=== PATIENT | female | born 1945 | race Caucasian/White ===

== ENCOUNTER → 2018-04-30 10:00 | Outpatient (CLI) | payer MEDICARE, OTHER, SELFPAY ==
[2018-04-30 12:28] LABS: Hematocrit 42.4 % (37-47); Hemoglobin 13.2 g/dl (12.0-15.0); Mean Corp Hgb Conc 31.1 g/gl (32-36); Mean Corpuscular Hgb 29.1 pg (27.0-32.0); Mean Corpuscular Volume 93.6 fL (81-99); Mean Platelet Vol. 10.9 fl (6.2-12.0); Platelet Count 268 K/mm3 (150-450); RBC Distribution Width CV 13.4 % (11.6-14.6); Red Blood Count 4.53 M/mm3 (4.2-5.4); White Blood Count 6.3 K/mm3 (4.4-11.0)
[2018-04-30 12:35] LABS: Scan Indicated on CBC? Y/N NO
[2018-04-30 12:49] LABS: ALB/GLOB Ratio 0.8 RATIO (0.9-2.4); AST(SGOT) 29 U/L (15-37); Alanine Aminotransfer ALT/SGPT 34 U/L (13-56); Albumin, Serum 3.4 g/dL (3.2-5.0); Alkaline Phosphatase 111 U/L (45-117); Anion Gap 6 (5-15); BUN 20 mg/dL (7-18); BUN/Creat Ratio 23.6 RATIO (10-20); Calcium,Total 9.1 mg/dL (8.5-10.1); Chloride 109 mmol/L (98-107); Creatinine, Serum 0.85 mg/dL (0.55-1.02); EST Glomerular Filtration Rate 70 mL/min (>60); Est Glom Filt Rate - Afr Amer 85 mL/min (>60); Free T3 2.4 pg/mL (2.18-3.98); Globulin 4.2 g/dL (2.2-4.2); Glucose 90 mg/dL (74-106); Potassium 4.4 mmol/L (3.5-5.1); Protein, Total 7.6 g/dL (6.4-8.2); Sodium Level 145 mmol/L (136-145); T4 Free Direct 0.69 ng/dL (0.76-1.46); Thyroid Stim Hormone (TSH) 1.76 uIU/mL (0.358-3.74)
[2018-05-01 11:54] LABS: Vitamin D,25 Hydroxy 26.6 ng/mL (29.95-100.01)
== END ==
PROVIDERS: Family Provider Family Medicine; PCP Family Medicine; Visit Provider Family Medicine
DX: M25.511 Pain in right shoulder (principal); F32.9 Major depressive disorder, single episode, unspecified; E55.9 Vitamin D deficiency, unspecified; E03.9 Hypothyroidism, unspecified; E78.5 Hyperlipidemia, unspecified
CPT/HCPCS: 36415; 73030; 80053; 82306; 84439; 84443; 84481; 85027

== ENCOUNTER → 2020-05-23 | Outpatient (CLI) | payer MEDICARE, SELFPAY | END | disposition home or self-care (01) | PROVIDERS: PCP Family Medicine; Referring Provider Family Medicine; Visit Provider Family Medicine | DX: Z20.828 Contact with and (suspected) exposure to other viral communicable diseases (principal) | CPT/HCPCS: 87635; U0003 ==

== ENCOUNTER → 2020-07-31 11:16 | Outpatient (CLI) | payer MEDICARE, SELFPAY ==
[2020-07-31 12:49] LABS: ALB/GLOB Ratio 0.9 RATIO (0.9-2.4); AST(SGOT) 20 U/L (15-37); Alanine Aminotransfer ALT/SGPT 25 U/L (13-56); Albumin, Serum 3.6 g/dL (3.2-5.0); Alkaline Phosphatase 89 U/L (45-117); Anion Gap 3 (5-15); BUN 16 mg/dL (7-18); BUN/Creat Ratio 22.2 RATIO (10-20); Calcium,Total 9.5 mg/dL (8.5-10.1); Chloride 108 mmol/L (98-107); Cholesterol 405 mg/dL (200); Creatinine, Serum 0.72 mg/dL (0.55-1.02); EST Glomerular Filtration Rate 84 mL/min (>60); Est Glom Filt Rate - Afr Amer 102 mL/min (>60); Globulin 3.8 g/dL (2.2-4.2); Glucose 88 mg/dL (74-106); High Density Lipoprotein 70 mg/dL; Potassium 3.8 mmol/L (3.5-5.1); Protein, Total 7.4 g/dL (6.4-8.2); Sodium Level 140 mmol/L (136-145); Thyroid Stim Hormone (TSH) 4.38 uIU/mL (0.358-3.74); Triglycerides 74 mg/dL; Very Low Density Lipoprotein 15 mg/dL (5-40)
== END ==
PROVIDERS: PCP Family Medicine; Referring Provider Family Medicine; Visit Provider Family Medicine
DX: E78.5 Hyperlipidemia, unspecified (principal); E03.9 Hypothyroidism, unspecified; E55.9 Vitamin D deficiency, unspecified
CPT/HCPCS: 36415; 80053; 80061; 82306; 84443

== ENCOUNTER → 2020-09-07 14:05 | Outpatient (CLI) | payer MEDICARE, OTHER, SELFPAY ==
--- NOTE | 2020-09-07 14:13 | BI_ITS ---
MAMMOGRAPHY - BILATERAL SCREENING REASON FOR EXAM: Female, 75 years old. Routine annual screening examination. PERTINENT HISTORY: Non-contributory. TECHNIQUE: Digital bilateral breast cynthia (3D mammographic acquisition) in the CC and MLO projections. 2-D mediolateral oblique (MLO) and craniocaudad (CC) views of both breasts were obtained. CAD: Full Field Digital Mammography with Computer Added Detection was performed. COMPARISON: Comparison is made with prior examination dated 10/22/2016. FINDINGS: Breast Composition: There are scattered areas of fibroglandular density. There are no dominant masses or suspicious calcifications. Stable small benign appearing bilateral axillary lymph nodes. No other significant abnormalities are identified. There has been no significant change since the prior study. BI/SCRN MAMM (CAD)W/CYNTHIA BILAT IMPRESSION: Stable bilateral screening mammogram. Yearly follow-up mammogram recommended. (A) ASSESSMENT CATEGORY: BIRADS Category 2: Benign. A letter regarding these results will be sent to the patient by the facility within 30 days. Approximately 10% of breast cancers are not detected by mammography. A normal mammogram should not delay biopsy of a clinically suspicious abnormality. [id number] Electronically Signed: Nathanael Rosenberg, at 15:31 EST , Service support ,
--- NOTE | 2020-09-07 14:17 | BD_ITS ---
STUDY: DUAL ENERGY X-RAY ABSORPTIOMETRY / DXA REASON FOR EXAM: Female, 75 years old. 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 COMPARISON: Comparison is made with prior study dated 10/22/2016. FINDINGS: Lumbar Spine (L1-L4): g/cm2 (1.028) / T-score (-1.1) / Z-score (0.6) Findings are suggestive of osteopenia with a low fracture risk. Left Femur Total: g/cm2 (0.813) / T-score (-1.5) / Z-score (0.1) Left Femoral Neck: g/cm2 (0.737) / T-score (-2.2) / Z-score (-0.3) Right Femur Total: g/cm2 (0.693) / T-score (-2.5) / Z-score (-0.9) Right Femoral Neck: g/cm2 (0.667) / T-score (-2.7) / Z-score (0.8) The T-Scores on the most recent prior examination were: Lumbar Spine (L1-L4): There has been improvement of bone density since the previous examination. Left Femur Total: which represents a worsening of 1.6%. Right Femur Total: which represents a worsening of 4.5%. BD/Dexa Bone Density Study IMPRESSION: The patient is considered osteoporotic as outlined below according to World Juan Ramon Organization (WHO) criteria with a high fracture risk. There has been worsening of bone density since the previous examination. Reference Information: The T-score is the number of standard deviations above or below the standard which is normal for young adults at their peak bone mineral density. The World Health Organization (WHO) interprets the T-scores as follows: Above -1 Normal bone density Between -1 and -2.5 Osteopenia Equal to / or below -2.5 Osteoporosis As a practical clinical guideline, osteopenia may be graded as follows: Mild -1 through -1.5 Moderate -1.6 through -2.0 Severe -2.1 through -2.4 The Z-score is the number of standard deviations above or below age-matched controls. A Z-score of less than -1.5 would be considered abnormal. References: 1. NIH Osteoporosis and Related Bone Diseases www osteo.org 2. International Society for Clinical Densitometry www iscd.org 3. National Osteoporosis Foundation www nof.org Electronically Signed: Nathanael Rosenberg, at 15:30 EST , Service support ,
== END ==
PROVIDERS: PCP Family Medicine; Referring Provider Family Medicine; Visit Provider Family Medicine
DX: Z00.00 Encounter for general adult medical examination without abnormal findings (principal); Z12.31 Encounter for screening mammogram for malignant neoplasm of breast; Z78.0 Asymptomatic menopausal state
CPT/HCPCS: 77063; 77067; 77080

== ENCOUNTER → 2020-10-04 15:27 | Outpatient (CLI) | payer MEDICARE, OTHER, SELFPAY ==
[2020-10-04 18:23] LABS: T4 Free Direct 1.15 ng/dL (0.76-1.46); Thyroid Stim Hormone (TSH) 1.52 uIU/mL (0.358-3.74)
== END ==
PROVIDERS: PCP Family Medicine; Referring Provider Family Medicine; Visit Provider Family Medicine
DX: E03.9 Hypothyroidism, unspecified (principal)
CPT/HCPCS: 36415; 84439; 84443

== ENCOUNTER → 2021-08-01 11:47 | Outpatient (CLI) | payer MEDICARE, OTHER, SELFPAY ==
[2021-08-01 15:25] LABS: Absolute Lymphocyte Count 1.08 X10^3/uL (0.83-4.51); Absolute Neutrophil Count 8.4 X10^3/uL (2.0-7.7); Basophil# 0.02 X10^3/uL; Basophil% 0.2 % (0-1); Eosinophil# 0.02 X10^3/uL; Eosinophils% 0.2 % (0-5); Hematocrit 41.9 % (37-47); Hemoglobin 13.4 g/dL (12.0-15.0); Lymphocyte # 1.08 X10^3/ul (0.83-4.51); Lymphocyte % 10.5 % (19-41); Mean Corpuscular Volume 90.7 fL (81-99); Mean Platelet Vol. 11.8 fl (6.2-12.0); Monocyte# 0.74 X10^3/uL; Monocyte% 7.2 % (0-10); NRBC Flagged by Analyzer 0 % (0-5); Neutrophil % 81.6 % (47-70); Platelet Count 237 K/mm3 (150-450); RBC Distribution Width CV 13.5 % (11.6-14.6); RBC Distribution Width SD 45.1 fl (35.1-43.9); Red Blood Count 4.62 M/mm3 (4.2-5.4); White Blood Count 10.3 K/mm3 (4.4-11.0)
[2021-08-01 15:50] LABS: ALB/GLOB Ratio 0.7 RATIO (0.9-2.4); AST(SGOT) 22 U/L (15-37); Alanine Aminotransfer ALT/SGPT 26 U/L (13-56); Albumin, Serum 3.3 g/dL (3.2-5.0); Alkaline Phosphatase 110 U/L (45-117); Anion Gap 8 (5-15); BUN 13 mg/dL (7-18); BUN/Creat Ratio 15.6 RATIO (10-20); Calcium,Total 9.2 mg/dL (8.5-10.1); Chloride 104 mmol/L (98-107); Cholesterol 324 mg/dL (200); Creatinine, Serum 0.84 mg/dL (0.55-1.02); EST Glomerular Filtration Rate 71 mL/min (>60); Est Glom Filt Rate - Afr Amer 86 mL/min (>60); Globulin 4.5 g/dL (2.2-4.2); Glucose 96 mg/dL (74-106); High Density Lipoprotein 66 mg/dL; Magnesium 2.3 mg/dL (1.6-2.6); Protein, Total 7.8 g/dL (6.4-8.2); Sodium Level 138 mmol/L (136-145); T4 Free Direct 0.98 ng/dL (0.76-1.46); Thyroid Stim Hormone (TSH) 1.49 uIU/mL (0.358-3.74); Triglycerides 59 mg/dL; Very Low Density Lipoprotein 12 mg/dL (5-40)
[2021-08-02 09:36] LABS: PTHIN 28.6 pg/mL (18.4-80.1)
== END ==
PROVIDERS: PCP Family Medicine; Referring Provider Family Medicine; Visit Provider Family Medicine
DX: E78.5 Hyperlipidemia, unspecified (principal); M81.0 Age-related osteoporosis without current pathological fracture; E03.9 Hypothyroidism, unspecified; R10.9 Unspecified abdominal pain
CPT/HCPCS: 36415; 80053; 80061; 82330; 83735; 83970; 84439; 84443; 85025; 87086; 87088; 87186

== ENCOUNTER 2021-11-23 08:23 | Outpatient (CLI) | payer MEDICARE, OTHER, SELFPAY ==
[2021-11-24 21:07] LABS: CHOLESTEROL TOTAL 230 mg/dL (100-199); HDL-C 63 mg/dL (>39); HDL-P TOTAL 34.3 umol/L (>=30.5); SMALL LDL-P 476 nmol/L (<=527); TRIGLYCERIDES 65 mg/dL (0-149)
[2021-11-24 22:20] LABS: INSULIN RESISTANCE SCORE <25 (<=45); LDL SIZE 21.6 nm (>20.5); LDL-C (NIH CALC) 156 mg/dL (0-99); LDL-P 1740 nmol/L (<1000)
== END 2021-11-23 23:59 | disposition home or self-care (01) ==
LOC: MFPLAB 08:24
PROVIDERS: PCP Family Medicine; Referring Provider Family Medicine; Visit Provider Family Medicine
DX: E78.5 Hyperlipidemia, unspecified (principal)
CPT/HCPCS: 36415; 80061; 83704

== ENCOUNTER → 2022-01-04 | Outpatient (CLI) | payer MEDICARE, OTHER, SELFPAY | END | disposition home or self-care (01) | LOC: LABSPEC 12:27 | PROVIDERS: PCP Family Medicine; Visit Provider Family Medicine | DX: J02.9 Acute pharyngitis, unspecified (principal) | CPT/HCPCS: 87070; 87186 ==

== ENCOUNTER → 2022-01-24 | Outpatient (CLI) | payer MEDICARE, OTHER, SELFPAY ==
--- NOTE | 2022-01-24 13:49 | ECHOD_ITS ---
Reason For Study: Murmur Procedure This was a 2D Doppler, Color Flow transthoracic echocardiogram. Exam performed in department. Left Ventricle Normal LV size. Left ventricular systolic function is normal. The estimated ejection fraction is 65 %. Stage 1 diastolic dysfunction. No regional wall motion abnormalities noted. Right Ventricle Normal RV size. Normal systolic function. Atria Normal left atrium. Normal right atrium. Mitral Valve Normal mitral valve. Tricuspid Valve Normal tricuspid valve. Aortic Valve Trisinus/trileaflet aortic valve. Moderate focal aortic valve calcification. Peak aortic valve gradient 27 mmHg. Mean aortic valve gradient 13 mmHg. Mild aortic stenosis. Pulmonic Valve Normal pulmonic valve. Great Vessels Normal aortic root. The pulmonary artery is normal size. Inferior vena cava collapse with respiration. Pericardium/Pleural No pericardial effusion. MMode/2D Measurements & Calculations LVIDd: 2.9 cm IVSd: 1.2 cm LVOT diam: 2.0 cm LVIDs: 1.6 cm LVPWd: 0.98 cm LVOT area: 3.0 cm2 RVDd: 2.9 cm FS: 42.5 % Ao root diam: 2.8 cm LAV(MOD-bp): 26.5 ml LVAd ap4: 19.3 cm2 LAV(MOD-bp) Indexed: 15.6 ml/m2 LVLd ap4: 7.5 cm LAV(MOD-sp2): 23.1 ml EDV(MOD-sp4): 40.9 ml LAV(MOD-sp4): 29.3 ml EDV(sp4-el): 42.1 ml LVAs ap4: 10.3 cm2 LVLs ap4: 6.5 cm ESV(MOD-sp4): 14.5 ml ESV(sp4-el): 13.8 ml EF(MOD-sp4): 64.6 % EF(sp4-el): 67.2 % LVAd ap2: 20.7 cm2 SV(MOD-sp4): 26.4 ml SV(MOD-sp2): 32.1 ml LVLd ap2: 7.8 cm EDV(MOD-sp2): 45.6 ml EDV(sp2-el): 46.5 ml LVAs ap2: 10.4 cm2 LVLs ap2: 6.8 cm ESV(MOD-sp2): 13.5 ml ESV(sp2-el): 13.5 ml EF(MOD-sp2): 70.3 % SV(sp4-el): 28.3 ml LA dimension(2D): 3.1 cm LA A4 area: 13.7 cm2 RA A4 area: 8.5 cm2 Doppler Measurements & Calculations MV E max serg: 99.9 cm/sec Lat Peak E' Serg: 8.7 cm/sec Med Peak E' Serg: 8.3 cm/sec MV A max serg: 111.7 cm/sec E/E' lat: 11.4 E/E' med: 12.0 MV E/A: 0.89 Ao V2 max: 259.3 cm/sec LV V1 max: 114.4 cm/sec SV(LVOT): 74.6 ml Ao max P.0 mmHg LV V1 max P.2 mmHg Ao V2 mean: 170.2 cm/sec LV V1 mean P.4 mmHg Ao mean P.2 mmHg LV V1 mean: 73.3 cm/sec Ao V2 VTI: 55.3 cm LV V1 VTI: 24.9 cm SHRUTHI(I,D): 1.3 cm2 SHRUTHI(V,D): 1.3 cm2 PA V2 max: 94.2 cm/sec ECHO/Echo Complete Interpretation Summary Normal LV size. Left ventricular systolic function is normal. The estimated ejection fraction is 65 %. Stage 1 diastolic dysfunction. Moderate focal aortic valve calcification. Mild aortic stenosis. Ordering Physician: Mann Cabrera Referring Physician: Mann Cabrera Performed By: Jennie Barreto RDCS
== END | disposition home or self-care (01) ==
LOC: CVS 13:48
PROVIDERS: PCP Family Medicine; Referring Provider Family Medicine; Visit Provider Family Medicine
DX: R01.1 Cardiac murmur, unspecified (principal)
CPT/HCPCS: 93306

== ENCOUNTER → 2022-04-22 | Outpatient (CLI) | payer MEDICARE, OTHER, SELFPAY ==
--- NOTE | 2022-04-22 11:25 | RAD_ITS ---
STUDY: X-RAY - RIGHT KNEE REASON FOR EXAM: Right knee pain. TECHNIQUE: 4 view(s) of the knee. COMPARISON: None. FINDINGS: Normal visualized distal femur. Normal visualized proximal tibia and fibula. Normal proximal tibiofibular articulation. There are small marginal osteophytes and moderate severe joint space narrowing of the medial femorotibial compartment. Normal lateral femorotibial compartment. Normal patellofemoral articulation. There is mild patellar enthesopathy. RAD/Knee 4 or More Views IMPRESSION: Arthrosis of the medial femorotibial compartment. Electronically Signed: Mina Richards MD at 14:48 EDT ,
== END | disposition home or self-care (01) ==
PROVIDERS: PCP Family Medicine; Referring Provider Family Medicine; Visit Provider Family Medicine
DX: M25.561 Pain in right knee (principal)
CPT/HCPCS: 73564

== ENCOUNTER → 2022-04-30 | Outpatient (CLI) | payer MEDICARE, OTHER, SELFPAY ==
[2022-04-30 10:00] LABS: Hematocrit 40.9 % (37-47); Hemoglobin 13.1 g/dL (12.0-15.0); Mean Corpuscular Hgb 29.5 pg (27.0-32.0); Mean Corpuscular Volume 92.1 fL (81-99); Mean Platelet Vol. 11.6 fl (6.2-12.0); Platelet Count 203 K/mm3 (150-450); RBC Distribution Width CV 13.6 % (11.6-14.6); RBC Distribution Width SD 46.3 fl (35.1-43.9); Red Blood Count 4.44 M/mm3 (4.2-5.4); White Blood Count 4.3 K/mm3 (4.4-11.0)
[2022-04-30 10:39] LABS: Vitamin D,25 Hydroxy 62.3 ng/mL
[2022-04-30 11:06] LABS: ALB/GLOB Ratio 0.9 RATIO (0.9-2.4); AST(SGOT) 30 U/L (15-37); Alanine Aminotransfer ALT/SGPT 34 U/L (13-56); Albumin, Serum 3.4 g/dL (3.2-5.0); Alkaline Phosphatase 85 U/L (45-117); Anion Gap 5 (5-15); BUN 21 mg/dL (7-18); BUN/Creat Ratio 28.1 RATIO (10-20); Calcium,Total 9.1 mg/dL (8.5-10.1); Chloride 107 mmol/L (98-107); Cholesterol 251 mg/dL (200); Creatinine, Serum 0.75 mg/dL (0.55-1.02); EST Glomerular Filtration Rate 80 mL/min (>60); Est Glom Filt Rate - Afr Amer 97 mL/min (>60); Globulin 3.9 g/dL (2.2-4.2); Glucose 90 mg/dL (74-106); High Density Lipoprotein 72 mg/dL; Potassium 4.1 mmol/L (3.5-5.1); Protein, Total 7.3 g/dL (6.4-8.2); Sodium Level 140 mmol/L (136-145); T4 Free Direct 0.91 ng/dL (0.76-1.46); Thyroid Stim Hormone (TSH) 3.14 uIU/mL (0.358-3.74); Triglycerides 66 mg/dL; Very Low Density Lipoprotein 13 mg/dL (5-40)
== END | disposition home or self-care (01) ==
LOC: MFPLAB 08:53
PROVIDERS: PCP Family Medicine; Visit Provider Family Medicine
DX: M25.561 Pain in right knee (principal); E78.5 Hyperlipidemia, unspecified; E03.9 Hypothyroidism, unspecified; M81.0 Age-related osteoporosis without current pathological fracture
CPT/HCPCS: 36415; 80053; 80061; 82306; 84439; 84443; 85027

== ENCOUNTER → 2022-06-24 | Outpatient (CLI) | payer MEDICARE, OTHER, SELFPAY ==
[2022-06-24 15:51] LABS: T4 Free Direct 1.19 ng/dL (0.76-1.46); Thyroid Stim Hormone (TSH) 0.77 uIU/mL (0.358-3.74)
== END | disposition home or self-care (01) ==
LOC: MFPLAB 10:43
PROVIDERS: PCP Family Medicine; Visit Provider Family Medicine
DX: E03.9 Hypothyroidism, unspecified (principal)
CPT/HCPCS: 36415; 84439; 84443

== ENCOUNTER → 2022-12-16 | Outpatient (CLI) | payer MEDICARE, OTHER, SELFPAY ==
--- NOTE | 2022-12-16 11:54 | RAD_ITS ---
INDICATION: BACK PAIN EXAMINATION/TECHNIQUE: X-RAY - XR Spine Lumbar Min 4 Views COMPARISON: None. FINDINGS: Mild dextroscoliosis. Moderate bilateral facet arthropathy L4-S1. Moderate diffuse anterior osteophyte formation. Severe loss of disc space height L4-5 moderate L3-4 and L5-S1. RAD/L/S Spine Min 4 Views IMPRESSION: Degenerative changes as above. Electronically Signed: Josep Coe MD, JOSELIN at 18:56 EDT ,
[2022-12-16 15:24] LABS: Vitamin D,25 Hydroxy 99.5 ng/mL
[2022-12-16 15:31] LABS: PTHIN 25.4 pg/mL (18.4-80.1)
[2022-12-16 15:42] LABS: ALB/GLOB Ratio 0.7 RATIO (0.9-2.4); AST(SGOT) 38 U/L (15-37); Alanine Aminotransfer ALT/SGPT 41 U/L (13-56); Albumin, Serum 3.2 g/dL (3.2-5.0); Alkaline Phosphatase 90 U/L (45-117); Anion Gap 5 (5-15); BUN 14 mg/dL (7-18); BUN/Creat Ratio 21.1 RATIO (10-20); Chloride 108 mmol/L (98-107); Cholesterol 210 mg/dL (200); Creatinine, Serum 0.66 mg/dL (0.55-1.02); EST Glomerular Filtration Rate 92 mL/min (>60); Est Glom Filt Rate - Afr Amer 112 mL/min (>60); Globulin 4.4 g/dL (2.2-4.2); Glucose 93 mg/dL (74-106); High Density Lipoprotein 59 mg/dL; Magnesium 2.2 mg/dL (1.6-2.6); Potassium 3.7 mmol/L (3.5-5.1); Protein, Total 7.6 g/dL (6.4-8.2); Sodium Level 139 mmol/L (136-145); Triglycerides 86 mg/dL; Very Low Density Lipoprotein 17 mg/dL (5-40)
== END | disposition home or self-care (01) ==
LOC: MTLAB 11:52
PROVIDERS: PCP Family Medicine; Referring Provider Family Medicine; Visit Provider Family Medicine
DX: M54.9 Dorsalgia, unspecified (principal); M81.0 Age-related osteoporosis without current pathological fracture; E03.9 Hypothyroidism, unspecified; E78.5 Hyperlipidemia, unspecified
CPT/HCPCS: 36415; 72110; 80053; 80061; 82306; 82330; 83735; 83970; 84439; 84443

== ENCOUNTER → 2023-01-02 | Outpatient (CLI) | payer MEDICARE, OTHER, SELFPAY ==
--- NOTE | 2023-01-02 15:42 | BI_ITS ---
MAMMOGRAPHY - BILATERAL SCREENING REASON FOR EXAM: Female, 77 years old. Routine annual screening examination. PERTINENT HISTORY: Non-contributory. TECHNIQUE: Digital bilateral breast cynthia (3D mammographic acquisition) in the CC and MLO projections. 2-D mediolateral oblique (MLO) and craniocaudad (CC) views of both breasts were obtained. CAD: Full Field Digital Mammography with Computer Added Detection was performed. COMPARISON: Comparison is made with prior study dated September 07, 2020 and October 22, 2016. FINDINGS: Breast Composition: There are scattered areas of fibroglandular density. There are no dominant masses or suspicious calcifications. Stable small benign appearing bilateral axillary lymph nodes. No other significant abnormalities are identified. There has been no significant change since the prior study. BI/SCRN MAMM (CAD)W/CYNTHIA BILAT IMPRESSION: Stable bilateral screening mammogram. Yearly follow-up mammogram recommended. (A) ASSESSMENT CATEGORY: BIRADS Category 2: Benign. A letter regarding these results will be sent to the patient by the facility within 30 days. Approximately 10% of breast cancers are not detected by mammography. A normal mammogram should not delay biopsy of a clinically suspicious abnormality. [id number] Electronically Signed: Nathanael Rosenberg MD at 8:44 EDT ,
--- NOTE | 2023-01-02 15:58 | BD_ITS ---
STUDY: DUAL ENERGY X-RAY ABSORPTIOMETRY / DXA REASON FOR EXAM: Female, 77 years old. [id number] TECHNIQUE: Bone Mineral Density (BMD) measurements of lumbar spine and bilateral hips were obtained. COMPARISON: Comparison is made with prior study dated September 07, 2020. FINDINGS: Lumbar Spine (L1-L4): g/cm2 (0.881) / T-score (-0.9) / Z-score (1.4) Findings are suggestive of normal bone density with a low fracture risk. Left Femur Total: g/cm2 (0.751) / T-score (-1.6) / Z-score (0.2) Left Femoral Neck: g/cm2 (0.580) / T-score (-2.4) / Z-score (-0.3) Right Femur Total: g/cm2 (0.689) / T-score (-2.1) / Z-score (-0.3) Right Femoral Neck: g/cm2 (0.544) / T-score (-2.7) / Z-score (-0.6) The T-Scores on the most recent prior examination were: Lumbar Spine (L1-L4): There has been worsening of bone density since the previous examination. Left Femur Total: which represents a worsening of and 0.2%. Right Femur Total: which represents an improvement of 8.3%. BD/Dexa Bone Density Study IMPRESSION: The patient is considered osteoporotic as outlined below according to World Juan Ramon Organization (WHO) criteria with a high fracture risk. There has been worsening of bone density since the previous examination. Reference Information: The T-score is the number of standard deviations above or below the standard which is normal for young adults at their peak bone mineral density. The World Health Organization (WHO) interprets the T-scores as follows: Above -1 Normal bone density Between -1 and -2.5 Osteopenia Equal to / or below -2.5 Osteoporosis As a practical clinical guideline, osteopenia may be graded as follows: Mild -1 through -1.5 Moderate -1.6 through -2.0 Severe -2.1 through -2.4 The Z-score is the number of standard deviations above or below age-matched controls. A Z-score of less than -1.5 would be considered abnormal. References: 1. NIH Osteoporosis and Related Bone Diseases www osteo.org 2. International Society for Clinical Densitometry www iscd.org 3. National Osteoporosis Foundation www nof.org Electronically Signed: Nathanael Rosenberg MD at 14:55 EDT ,
== END | disposition home or self-care (01) ==
LOC: OPBD 15:41
PROVIDERS: PCP Family Medicine; Referring Provider Family Medicine; Visit Provider Family Medicine
DX: Z00.00 Encounter for general adult medical examination without abnormal findings (principal); Z12.31 Encounter for screening mammogram for malignant neoplasm of breast; Z78.0 Asymptomatic menopausal state
CPT/HCPCS: 77063; 77067; 77080

== ENCOUNTER 2023-01-24 09:30 | Outpatient (RCR) | payer MEDICARE, OTHER, SELFPAY ==
--- NOTE | 2022-12-24 11:57 | HP.PTEVAL_ITS ---
Patient's Visit Information RAMONA DONIS is a 77 year old F referred to Physical Therapy by Dr. Mann Cabrera MD with a diagnosis of LUMBAR DDD. Date of Evaluation: 12/24/22 Physical Therapist: Sary Mejia PT, Cert MDT - Visit Plan Frequency: 2-3x /Week Duration: 4-6 Weeks Plan: LEFT LOW BACK US X 6. POSTURE CORRECTION/STRENGTHENING, INSTRUCTION IN APPROPRIATE BODY MECHANICS AND ACTIVITY MODIFICATIONS. DLS STARTING WITH A NEUTRAL SPINE PROGRESSING ROM TOLERATED. JERALD LE ROM, STRETCHING AND STRENGTHENING. HEP INSTRUCTION. 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 Disability: NO. Present symptoms: LOW BACK PAIN L>R. PATIENT DENIES JERALD LE PAIN, NUMBNESS AND TINGLING. Present since: CHRONIC BUT INCREASED ABOUT 2 MONTHS AGO. Pain Scale: WORST 4/10, LEAST 0/10. Currently: 0/10. Is it getting better, worse or staying the same: WORSENING. Commenced as a result of: NO APPARENT REASON. Worse: LIFTING, SOMETIMES SITTING, RECLINER. Better: WALKING, LYING DOWN. Disturbed sleep: NO. Previous history/Previous treatment: BACK SURGERY ABOUT [address] RODRÍGUEZ - PATIENT IS UNSURE WHAT SURGERY SHE HAD BUT STATES THEY DID NOT PUT METEL IN HER BACK. PHYICAL THERPAY AFTER SURGERY. NO LOW BACK CHIROPRACTIC. Coughing/sneezing/straining: NEGATIVE. Gait: UNLIMITED. Bowel or Bladder Dysfunction: SOME UI. Accidents: NO. Unexplained weight loss: NO. Imaging: INDICATION: BACK PAIN. EXAMINATION/TECHNIQUE: X-RAY - XR Spine Lumbar Min 4 Views. COMPARISON: None. FINDINGS: Mild dextroscoliosis. Moderate bilateral facet arthropathy L4-S1. Moderate. diffuse anterior osteophyte formation. Clarissa re loss of disc space height. L4-5 moderate L3-4 and L5-S1. RAD/L/S Spine Min 4 Views. IMPRESSION: Degenerative changes as above. Electronically Signed: Josep Coe MD, JOSELIN. . PMH/Recent major surgery: HIGH CHOLESTEROL, HYPOTHYROIDISM. - Objective Sitting/Standing Posture: POOR. SCOLIOSIS. L ILIAC CREST HIGHER THAN RIGHT. Active Correction of posture: Other Observations: THIS PATIENT AMBULATES INDEP'LY INTO PT TODAY WITHOUT ANY. Sensory deficit: JERALD LE LIGHT TOUCH SENSATION GROSSLY INTACT AND SYMMETRICAL. ROM deficit: JERALD LE'S WFL. Motor deficit: JERALD LE'S GROSSLY 5/5 WITH MMT'ING EXCEPT JERALD HIPS 4-/5 AND TESTING OF R HIP FLEXION PROVOKES L LBP. Reflexes: JERALD QUADS 1/2, JERALD ACHILLES 2/2. Dural Signs: NEGATIVE JERALD LE'S. Lumbar mvmt loss: flex - NIL. ext - PORTIA. R SG - MOD. L SG - MOD. PATIENT DENIES INCREASED LBP WITH LUMBAR ROM TESTING ALL PLANES TODAY. Core strength: POOR. Palpation: NO ACUTE LUMBAR OR HIP TENDERNESS WITH PALPATION TODAY. TREATMENT: INTRO TO NEUROMUSCULAR REEDUCATION - RETRAINING OF MVMT AND POSTURE FOR SITTING, LYING AND STANDING ACTIVITIES. PATIENT RESPONDED WELL TO USE OF LUMBAR SUPPORT IN SITTING IN CLINIC TODAY AND COMMUNICATED A GOOD UNDERSTANDING OF ALL INSTRUCTIONS AFTER GIVEN. - Balance/Special Test Scores Oswestry Low Back Score: 4 - Goals Goal 1:: DECREASE C/O LOW BACK PAIN Goal Time Frame: 4-6 Weeks Goal 2:: IMPROVE LIFTING, SITTING, TRAVEL AND HOMEMAKING FUNCTION Goal Time Frame: 4-6 Weeks Goal 3:: INSTRUCT IN PROPHYLAXIS Goal Time Frame: 4-6 Weeks - Anticipated Interventions Patient/Client Instruction: Educate patient on: Condition, Plan of Care, Risk Factors For the Purpose of:: To improve self management Therapeutic Exercise to Include: Strength training, Body mechanics, Postural training, Flexibilty training, Neuromotor development, In an aquatic setting, Dynamic Lumbar Stabilization For the Purpose of:: To decrease pain, To increase ROM, To improve muscle performance and motor function, To increase tolerance to activ ity/condition/position, To improve ability of physical actions for home/community/work/leisure Cryotherapy (ice pack, ice massage): Yes Thermo therapy (hot pack): Yes Ultrasound (thermal/non thermal): Yes For the Purpose of:: To decrease pain, To improve nutrient delivery to tissue Thank you for the opportunity to evaluate your patient. For Medicare and Medicare HMO plans, please review the plan of care and approve it. It will need to be FAXED BACK to us at [phone] for Medicare purposes. For Medicare only, by signing this I certify the plan of care. Please let me know if there are questions or concerns regarding this plan of care. Physician Signature:___ Date:
--- NOTE | 2023-01-24 09:56 | HP.PTDCSUM ---
It has been my pleasure to treat RAMONA DONIS referred by Dr. Mann Cabrera MD, with the diagnosis of LUMBAR DDD for a total of 8 visit(s). Discharge Date: Please see the following information for a summary of their discharge status. Subjective: I DON'T HAVE BURNING BACK LIKE I DID. SOME L LOW BACK PAIN RIGHT NOW BUT NO PAIN YESTERDAY. PATIENT STATES SHE FEELS LIKE SHE CAN MANAGE IT FROM HERE. LB Pain Intensity (Out of 10): 1 % Improvement: 75 Objective/Function: PATIENT WAS SEEN TODAY FOR RE-ASSESSMENT OF PROGRESS TOWARD THE SET PT GOALS AND THE NEED FOR FURTHER PHYSICAL THERAPY VS READINESS FOR DISCHARGE. ALL GOALS HAVE BEEN MET AND PATIENT IS APPROPRIATE FOR AND AGREEABLE TO D/C. UPON EXAM TODAY: Motor deficit: JERALD LE'S GROSSLY 5/5 WITH MMT'ING EXCEPT JERALD HIPS 4/5 AND TESTING OF R HIP FLEXION PROVOKES INCREASED MILD L LB PAIN. Reflexes: JERALD QUADS 1/2, JERALD ACHILLES 2/2. Dural Signs: NEGATIVE JERALD LE'S. Lumbar mvmt loss: flex - NIL. ext - MOD TO PORTIA. R SG - MIN. L SG - MIN. PATIENT DENIES INCREASED LBP WITH LUMBAR ROM TESTING ALL PLANES TODAY. Palpation: NO ACUTE LUMBAR OR HIP TENDERNESS. [ End ] Goal 1:: DECREASE C/O LOW BACK PAIN Goal Progress: Goal Met Goal 2:: IMPROVE LIFTING, SITTING, TRAVEL AND HOMEMAKING FUNCTION Goal Progress: Goal Met Goal 3:: INSTRUCT IN PROPHYLAXIS Goal Progress: Goal Met Plan: D/C. PATIENT AGREEABLE If there are questions or concerns regarding this patient's physical therapy, please feel free to call me at [phone]. Thank you for the referral of this patient. Sincerely, Sary Mejia, PT, Cert MDT Balance/Gait/Functional tests - Balance/Special Test Scores Oswestry Low Back Score: 3
== END 2023-01-24 19:00 | disposition home or self-care (01) ==
LOC: PT 09:30
PROVIDERS: PCP Family Medicine; Referring Provider Family Medicine; Visit Provider Family Medicine
DX: M51.36 Other intervertebral disc degeneration, lumbar region (principal)
CPT/HCPCS: 97035; 97110; 97112; 97161; 97164; 97530

== ENCOUNTER → 2023-03-17 | Outpatient (CLI) | payer MEDICARE, OTHER, SELFPAY ==
[2023-03-17 17:51] LABS: Hematocrit 40.2 % (37-47); Hemoglobin 12.8 g/dL (12.0-15.0); Mean Corp Hgb Conc 31.8 g/dL (32-36); Mean Corpuscular Hgb 29.8 pg (27.0-32.0); Mean Corpuscular Volume 93.5 fL (81-99); Platelet Count 204 K/mm3 (150-450); RBC Distribution Width CV 14.1 % (11.6-14.6); RBC Distribution Width SD 48.1 fl (35.1-43.9); White Blood Count 4.4 K/mm3 (4.4-11.0)
[2023-03-17 18:07] LABS: Vitamin B12 535 pg/mL (211-911); Vitamin D,25 Hydroxy 75.5 ng/mL
[2023-03-17 18:28] LABS: Anion Gap 3 (5-15); BUN 19 mg/dL (7-18); BUN/Creat Ratio 22.7 RATIO (10-20); Calcium,Total 9.2 mg/dL (8.5-10.1); Chloride 108 mmol/L (98-107); Creatinine, Serum 0.84 mg/dL (0.55-1.02); EST Glomerular Filtration Rate 71 mL/min (>60); Est Glom Filt Rate - Afr Amer 85 mL/min (>60); Glucose 94 mg/dL (74-106); Sodium Level 142 mmol/L (136-145); T4 Free Direct 0.95 ng/dL (0.76-1.46); Thyroid Stim Hormone (TSH) 1.65 uIU/mL (0.358-3.74)
== END | disposition home or self-care (01) ==
LOC: MFPLAB 15:47
PROVIDERS: PCP Family Medicine; Visit Provider Family Medicine
DX: R20.0 Anesthesia of skin (principal); E03.9 Hypothyroidism, unspecified; E55.9 Vitamin D deficiency, unspecified
CPT/HCPCS: 36415; 80048; 82306; 82607; 84439; 84443; 85027

== ENCOUNTER → 2023-10-21 | Outpatient (CLI) | payer MEDICARE, OTHER, SELFPAY ==
--- OUTSIDE RECORDS SUMMARY | 2023-10-21 11:16 | XMS RPT_ITS | CCD ---
Author Name Unknown Address [address] [place] [address] Organization [facility] Care Team Providers Care Gang Leader Name Role Phone JUANITA COATS Unavailable Unavailabl e PABLO HENDRICKSON (AD) Unavailable Unavailable Problems Problem Classification Problem Date Documented Da te Episodic/Chronic Other lower respiratory disease (1 source) Cough; Translations: [Cough] Onset: 08-30-2017 Episodic Results Test Name Value Interpretation Reference Range Facil ity Encounters Encounter Date Encounter Type Care Provider Facility Start: 09-15-2017 End: 09-15-2017 Ambulatory JUANITA COATS [facility] molly Start: 08-30-2017 End: 08-30-2017 Ambulatory PABLO VOSS) MADH[facility]I [facility] Summary Purpose Family History No Family History Records FoundNo Family History Records Found Advance Directives No Advanced Directives Records FoundNo Advanced Directives Records Found Additional Source Comments INFORMATION SOURCE (unrecogn ized section and content) DATE CREATED AUTHOR AUTHOR'S SHAUNA ATION 09/03/2021 [facility] FOR RECORDS PERTAINING TO PATIENTS WHO ARE OR HAVE BEEN ENROLLED IN A CHEMICAL DEPENDENCY/SUBSTANCEABUSE PROGRAM, SOME INFORMATION MAY BE OMITTED. This clinical summary was aggregated from multiple sources. Caution should be exercised in using it in the provision of clinical care. This summary normalizes information from multiple sources, and as a consequence, information in this document may materially change the coding, format and clinical context of patient data. In addition, data may be omitted in some cases. CLINICAL DECISIONS SHOULD BE BASED ON THE PRIMARY CLINICAL RECORDS. [employer] provides no warranty or guarantee of the accuracy or completeness of information in this document.
[2023-10-21 13:18] LABS: Anion Gap 3 (5-15); BUN 20 mg/dL (7-18); BUN/Creat Ratio 27.7 RATIO (10-20); Chloride 110 mmol/L (98-107); Cholesterol 224 mg/dL (200); Creatinine, Serum 0.72 mg/dL (0.55-1.02); EST Glomerular Filtration Rate 84 mL/min (>60); Est Glom Filt Rate - Afr Amer 101 mL/min (>60); Glucose 98 mg/dL (74-106); High Density Lipoprotein 71 mg/dL; Potassium 4.2 mmol/L (3.5-5.1); Sodium Level 142 mmol/L (136-145); Triglycerides 50 mg/dL; Very Low Density Lipoprotein 10 mg/dL (5-40)
== END | disposition home or self-care (01) ==
LOC: MFPLAB 09:48
PROVIDERS: PCP Family Medicine; Visit Provider Family Medicine
DX: R73.01 Impaired fasting glucose (principal); E03.9 Hypothyroidism, unspecified; E78.5 Hyperlipidemia, unspecified
CPT/HCPCS: 36415; 80048; 80061; 84443

== ENCOUNTER → 2024-02-17 | Outpatient (CLI) | payer MEDICARE, OTHER, SELFPAY ==
--- NOTE | 2024-02-17 08:33 | BI_ITS ---
MAMMOGRAPHY - BILATERAL SCREENING REASON FOR EXAM: Female, 78 years old. Routine annual screening examination. PERTINENT HISTORY: Non-contributory. TECHNIQUE: Digital bilateral breast cynthia (3D mammographic acquisition) in the CC and MLO projections. 2-D mediolateral oblique (MLO) and craniocaudad (CC) views of both breasts were obtained. CAD: Full Field Digital Mammography with Computer Added Detection was performed. COMPARISON: Comparison is made with prior study of January 02, 2023 and September 07, 2020. FINDINGS: Breast Composition: There are scattered areas of fibroglandular density. There are no dominant masses or suspicious calcifications. Stable small benign-appearing bilateral axillary lymph nodes. No other significant abnormalities are identified. There has been no significant change since the prior study. BI/SCRN MAMM (CAD)W/CYNTHIA BILAT IMPRESSION: Stable bilateral screening mammogram. Yearly follow-up mammogram recommended. (A) ASSESSMENT CATEGORY: BIRADS Category 2: Benign. A letter regarding these results will be sent to the patient by the facility within 30 days. Approximately 10% of breast cancers are not detected by mammography. A normal mammogram should not delay biopsy of a clinically suspicious abnormality. [id number] Electronically Signed: Nathanael Rosenberg MD at 9:12 EDT ,
--- NOTE | 2024-02-17 08:51 | ECHOD_ITS ---
Reason For Study: CARDIAC MURMUR Procedure This was a 2D Doppler, Color Flow transthoracic echocardiogram. Exam performed in department. Left Ventricle Normal LV size. Sigmoid septum. Left ventricular systolic function is normal. No evidence for diastolic dysfunction. The estimated ejection fraction is 60 %. No regional wall motion abnormalities noted. Right Ventricle Normal RV size. Normal systolic function. Atria The left and right atria are normal. Bubble contrast study is positive for PFO. Mitral Valve Mild mitral annular calcification. Mild focal mitral valve calcification. Mild diffuse mitral valve thickening. There is no mitral valve stenosis. Trivial mitral valve insufficiency. Tricuspid Valve Normal tricuspid valve. Trivial tricuspid valve insufficiency. Unable to estimate RV systolic pressure due to insufficient tricuspid regurgitant envelope. Aortic Valve Trisinus/trileaflet aortic valve. Moderate diffuse aortic valve calcification. Mild to moderate aortic stenosis. Peak aortic valve gradient 36 mmHg. Mean aortic valve gradient 19 mmHg. Pulmonic Valve Normal pulmonic valve. Trivial pulmonic valve insufficiency. Great Vessels Normal aortic root. Pericardium/Pleural No pericardial effusion. Medication 22 gauge I.V. with prn adaptor inserted into right arm. Performed a rapid injection of agitated mix of 9 cc saline and 1cc air to assess for atrial septal defect. MMode/2D Measurements & Calculations LVIDd: 3.6 cm IVSd: 0.89 cm LVOT diam: 1.9 cm LVIDs: 2.0 cm LVPWd: 0.74 cm FS: 45.1 % LVOT area: 2.8 cm2 LA dimension: 3.1 cm LAV(MOD-bp): 43.0 ml LVAd ap4: 21.1 cm2 LAV(MOD-bp) Indexed: 26.3 ml/m2 LVLd ap4: 7.5 cm LAV(MOD-sp2): 48.9 ml EDV(MOD-sp4): 50.0 ml LAV(MOD-sp4): 32.0 ml EDV(sp4-el): 50.4 ml LVAs ap4: 9.4 cm2 LVLs ap4: 6.3 cm ESV(MOD-sp4): 12.6 ml ESV(sp4-el): 11.9 ml EF(MOD-sp4): 74.8 % EF(sp4-el): 76.4 % SV(MOD-sp4): 37.4 ml SV(sp4-el): 38.5 ml LA A4 area: 13.3 cm2 RA A4 area: 11.4 cm2 TAPSE: 2.3 cm Time Measurements MV dec time: 0.28 sec Doppler Measurements & Calculations MV E max serg: 89.1 cm/sec Lat Peak E' Serg: 9.5 cm/sec Med Peak E' Serg: 7.4 cm/sec MV A max serg: 111.1 cm/sec E/E' lat: 9.4 E/E' med: 12.0 MV E/A: 0.80 MV V2 max: 121.2 cm/sec MV P1/2t max serg: 93.1 cm/sec Ao V2 max: 299.3 cm/sec MV max P.9 mmHg MV P1/2t: 76.8 msec Ao max P.0 mmHg MV V2 mean: 50.3 cm/sec MV dec slope: 354.9 cm/sec2 Ao V2 mean: 199.8 cm/sec MV mean P.3 mmHg MVA(P1/2t): 2.9 cm2 Ao mean P.5 mmHg MV V2 VTI: 31.9 cm Ao V2 VTI: 62.3 cm MVA(VTI): 2.4 cm2 AV (velocity ratio): 0.43 SHRUTHI(I,D): 1.2 cm2 SHRUTHI(V,D): 1.0 cm2 LV V1 max: 110.0 cm/sec SV(LVOT): 75.5 ml PA V2 max: 129.4 cm/sec LV V1 max P.9 mmHg PA max PG (full): 5.4 mmHg LV V1 mean P.1 mmHg PA V2 mean: 82.3 cm/sec LV V1 mean: 84.9 cm/sec LV V1 VTI: 26.9 cm ECHO/Echo Complete Interpretation Summary The estimated ejection fraction is 60 %. No evidence for diastolic dysfunction. Mild focal mitral valve calcification. Mild mitral annular calcification. Mild to moderate aortic stenosis. Bubble contrast study is positive for PFO. Ordering Physician: Austin Cabrera Referring Physician: Austin Cabrera Performed By: Mitra Tomlin RVT, RDCS and Student
== END | disposition home or self-care (01) ==
LOC: CVS 08:31
PROVIDERS: PCP Family Medicine; Referring Provider Family Medicine; Visit Provider Family Medicine
DX: Z12.31 Encounter for screening mammogram for malignant neoplasm of breast (principal); R01.1 Cardiac murmur, unspecified
CPT/HCPCS: 77063; 77067; 93306; A4216

== ENCOUNTER → 2024-04-19 | Outpatient (CLI) | payer MEDICARE, OTHER, SELFPAY ==
--- NOTE | 2024-04-19 10:03 | RAD_ITS ---
EXAM: XR LEFT SHOULDER COMPLETE, 2 OR MORE VIEWS CLINICAL INDICATION: pain TECHNIQUE: Two or more views of the left shoulder. COMPARISON: None of the left shoulder, views of the right shoulder from April 30, 2018. FINDINGS: BONES/JOINTS: There is an ovoid sclerotic or calcific material of roughly 1.5 cm x 1.2 cm in the expected region of the supraspinatus tendon insertion or subjacent to the lateral joint capsule, this does not appear to be fracture fragment. Mildly heterogeneous bone density. Mild hypertrophic changes of the inferior margin of the acromioclavicular joint with mild narrowing of the subacromial space. SOFT TISSUES: Otherwise unremarkable. No soft tissue swelling or gas. No radiopaque foreign body. Incidentally noted RAD/Shoulder min 2 Views IMPRESSION: Calcific ovoid body in the left shoulder joint. Uncertain chronicity, etiology and significance. Mild hypertrophic changes narrowing the subacromial space. No elvis bone destruction. Electronically Signed: Roxanna Rodriguez MD at 2:56 EDT ,
== END | disposition home or self-care (01) ==
LOC: MTRAD 10:00
PROVIDERS: PCP Family Medicine; Referring Provider Family Medicine; Visit Provider Family Medicine
DX: M25.512 Pain in left shoulder (principal)
CPT/HCPCS: 73030

== ENCOUNTER → 2024-07-06 | Outpatient (CLI) | payer MEDICARE, OTHER, SELFPAY ==
--- NOTE | 2024-07-06 16:06 | RAD_ITS ---
INDICATION: Left shoulder pain EXAMINATION/TECHNIQUE: X-RAY - LEFT XR Shoulder 4 VIEWS COMPARISON: FINDINGS: SOFT TISSUES: No soft tissue swelling or gas. No radiopaque foreign body. Prominent calcification lateral to the humeral head. BONES/JOINTS: No acute fracture or subluxation.. Normal alignment. Preservation of the joint space.. No sclerotic or destructive changes observed. 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 Electronically Signed: Marco Antonio Reynoso DO at 11:52 EST ,
== END | disposition home or self-care (01) ==
LOC: MTRAD 16:06
PROVIDERS: PCP Family Medicine; Referring Provider Family Medicine; Visit Provider Family Medicine
DX: M25.519 Pain in unspecified shoulder (principal)
CPT/HCPCS: 73030

== ENCOUNTER → 2024-07-20 | Outpatient (CLI) | payer MEDICARE, OTHER, SELFPAY ==
--- NOTE | 2024-07-20 12:35 | RAD_ITS ---
INDICATION: pain, bilateral shoulder pain EXAMINATION/TECHNIQUE: X-RAY - XR Spine Cervical 4 or 5 Views COMPARISON: Prior study dated: 10/10/2010 FINDINGS: The vertebral bodies are normal in height. No definite fracture demonstrated. Minimal anterior subluxation of C7 on T1. This was not clearly visualized on the prior which may be due to difference in the positioning. C1-2 alignment is maintained. Disc space narrowing with osteophytes most pronounced at C4-C6. Facet arthropathy at multiple levels, pronounced at C7-T1. Left neural foraminal encroachment at several levels due to the osteophytes, most pronounced at C5-6. Similar to prior. Prevertebral soft tissues are unremarkable. RAD/Cerv Spine 4 or 5 Views IMPRESSION: Extensive degenerative changes with degenerative discogenic disease and facet arthropathy. Minimal anterolisthesis at C7-T1 likely secondary to degenerative changes. Mild left neural foraminal encroachment mostly at C5-6. MRI may be helpful for further evaluation. Electronically Signed: Katie Dodson MD at 16:12 EST ,
[2024-07-20 15:39] LABS: Absolute Lymphocyte Count 0.91 X10^3/uL (0.83-4.51); Absolute Neutrophil Count 3.2 X10^3/uL (2.0-7.7); Basophil# 0.02 X10^3/uL; Basophil% 0.4 % (0-1); Eosinophil# 0.06 X10^3/uL; Eosinophils% 1.3 % (0-5); Hematocrit 39.4 % (37-47); Hemoglobin 12.8 g/dL (12.0-15.0); Lymphocyte # 0.91 X10^3/ul (0.83-4.51); Mean Corp Hgb Conc 32.5 g/dL (32-36); Mean Corpuscular Hgb 30.2 pg (27.0-32.0); Mean Corpuscular Volume 92.9 fL (81-99); Monocyte# 0.37 X10^3/uL; Monocyte% 8.1 % (0-10); NRBC Flagged by Analyzer 0 % (0-5); Neutrophil # 3.17 X10^3/uL (2.7-7.7); Neutrophil % 69.8 % (47-70); Platelet Count 216 K/mm3 (150-450); RBC Distribution Width CV 13.4 % (11.6-14.6); RBC Distribution Width SD 45.4 fl (35.1-43.9); Red Blood Count 4.24 M/mm3 (4.2-5.4); White Blood Count 4.6 K/mm3 (4.4-11.0)
[2024-07-20 15:44] LABS: Erythrocyte Sedimentation Rate 20 mm/hr (0-30)
[2024-07-20 16:04] LABS: ALB/GLOB Ratio 1.1 RATIO (0.9-2.4); AST(SGOT) 32 U/L (15-37); Alanine Aminotransfer ALT/SGPT 30 U/L (13-56); Albumin, Serum 3.7 g/dL (3.2-5.0); Alkaline Phosphatase 96 U/L (45-117); Anion Gap 3 (5-15); BUN 15 mg/dL (7-18); BUN/Creat Ratio 22.2 RATIO (10-20); Calcium,Total 9.3 mg/dL (8.5-10.1); Chloride 108 mmol/L (98-107); Creatinine, Serum 0.68 mg/dL (0.55-1.02); EST Glomerular Filtration Rate 90 mL/min (>60); Est Glom Filt Rate - Afr Amer 109 mL/min (>60); Ferritin 125 ng/mL (8-252); Globulin 3.5 g/dL (2.2-4.2); Glucose 91 mg/dL (74-106); Iron 38 ug/dL (50-170); Magnesium 2.2 mg/dL (1.6-2.6); Potassium 3.7 mmol/L (3.5-5.1); Protein, Total 7.2 g/dL (6.4-8.2); Sodium Level 141 mmol/L (136-145); Vitamin B12 559 pg/mL (211-911)
[2024-07-23 12:08] LABS: ANTINUCLEAR ANTIBODIES DIRECT Negative (Negative)
== END | disposition home or self-care (01) ==
LOC: MTLAB 12:35
PROVIDERS: PCP Family Medicine; Referring Provider Family Medicine; Visit Provider Family Medicine
DX: R20.2 Paresthesia of skin (principal); M54.2 Cervicalgia; M25.511 Pain in right shoulder; M25.512 Pain in left shoulder
CPT/HCPCS: 36415; 72050; 80053; 82607; 82728; 83540; 83735; 84443; 85025; 85652; 86038

== ENCOUNTER 2024-08-12 11:30 | Outpatient (RCR) | payer MEDICARE, OTHER, SELFPAY ==
--- NOTE | 2024-07-16 15:33 | HP.PTEVAL_ITS ---
Patient's Visit Information Visit Information Visit Information: RAMONA DONIS is a 79 year old F referred to Physical Therapy by Lex Rhoades MD with a diagnosis of JERALD SHLD PAIN. Date of Evaluation: 07/16/24 Physical Therapist: Sary Mejia PT, Cert MDT Visit Plan Frequency: 2-3x /Week Duration: 4-6 Weeks Plan: ULTRASOUND, MH/CP, POSTURE CORRECTION/STRENGTHENING, JERALD UE ROM/STRETCHING/STRENGTHING TO HELP MEET SET GOALS. 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 Present symptoms: JERALD SHLD PAIN L>R. NECK PAIN. L SHLD PAIN COMES AND GOES. IT CATCHES AND CRACKS. INTERMITTENT MILD L UPPER ARM NUMBNESS. INTERMITTENT NUMBNESS AND TINGLING IN FEET THAT STARTED LAST WEEK AND PATIENT THINKS IT COMES AND GOES. DENIES WELLS'S. Present since: INTENSE PAIN ABOUT STARTED ABOUT 4 WKS AGO. CAN'T REMEMBER WHEN IT STARTED - SHOT SEVERAL MONTHS AGO BY DR. OKEEFE. Getting Better, Getting Worse or Staying the Same: STAYING THE SAME Pain Scale: Worst - 9/10 - IT KILLS ME AT TIMES. Least - /10 Currently: 12/02 Commenced as a result of: NO APPARENT REASON Symptoms at onset: L SHLD ACHE AND NUMBNESS UPPER L ARM. Worse: LIFTING LEFT ARM OUT TO THE SIDE, WASHING FRANCOIS, WASHING WINDOWS, ANY REACHING WITH L UE, PUTTING DRESS ARM, R ARM TOO BUT NOT BAD. IT BOTHERS ME THE MOST AT NIGHT. I WAKE UP VARIOUS TIMES AT NIGHT WITH PAIN IN MY L SHOULDER/ARM. Better: PAIN PILLS HELP SOMETIMES, HEATING PAD Disturbed sleep: YES Previous history/Previous treatment: UNREMARKABLE. NO NECK OR SHLD SURGERY. NO NECK INJECTIONS. CHIROPRACTOR ABOUT 3 TIMES IN LIFE WITH MOST RECENT TIMES BEING ABOUT 4 YEARS AGO - NOT SPECIFICALLY FOR NECK THAT PATIENT RECALLS. This episode: L SHLD INJECTION ABOUT [address] OKEEFE - HELPED FOR AWHILE. PATIENT REPORTS SHE WAS PRESCRIBED A MUSCLE RELAXER ABOUT A WK AND A HALF AGO AND SHE STATES SHE TOOK THEM ALL AND SHE IS ABOUT THE SAME OVER-ALL. Dizziness: NO Tinnitus: NO Nausea: NO Shortness of Breath: NO Difficulty Swallowing: NO Gait: IN THE LAST WEEK OR TWO - NOTICE CHANGE IN BALANCE - I WEAVE A BIT. Accidents: DENIES ANY ACCIDENTS OR FALLS. Unexplained weight loss: DENIES ANY RECENT WEIGHT LOSS. Imaging: Recent L shld x-ray: 07/06/24 - Probable calcific tendinopathy. NO R SHLD X-RAYS. NO NECK X-RAYS. NO MRI. PMH/Recent major surgery: HIGH CHOLESTEROL, THYROID DZ. LUMBAR SX 9 YEARS AGO. UNREPAIRED HERNIA - PLANS TO SEE PCP - DR. OKEEFE ABOUT IT NEXT WK. Objective Objective: Sitting Posture/Standing Posture: FORWARD HEAD. ROUNDED SHLD'S. L SHLD LEVEL HIGHER THAN R. NO TORTICOLLIS. Active Correction of posture: NE Other Observations: INDEP GAIT AND TRANSFERS. NO LOB OR STAGGERING NOTED. Sensory deficit: JERALD UE LIGHT TOUCH SENSATION GROSSLY INTACT AND SYMMETRICAL ROM deficit: PATIENT WITH FULL JERALD SHLD ELEVATION TODAY. PATIENT DOES HAVE C/O JERALD SHLD PAIN WITH AROM TESTING L>R. Motor deficit: R SH FLEX 4/5, L 4-/5, ABD R 4/5 L 3+/5, IR R 5/5 L 4/5, ER R 4/5 L 3+/5. R ELBOW 5/5 L 5/5. 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 Cervical Mvmt Loss: Flex: NIL Pro: NIL Ext: MIN - INCREASES NECK PAIN - NW Ret: MOD - INCREASES NECK PAIN - NW RSB: MOD - P R NECK PAIN - NW LSB: MIN - P R NECK PAIN - NW R Rot: MIN - NE L Rot: MIN - NE Postural strength: POOR Palpation: TENDERNESS OF LEFT SHLD SUPASPINATUS AND BICIPITAL GROOVE. NO CERVICAL OR OCCIPUT TENDERNESS. Special Tests R Shoulder External Rotation Lag Test - RC Tear: Negative R Shoulder Empty Can - SS: Negative L Shoulder External Rotation Lag Test - RC Tear: Negative L Shoulder Empty Can - SS: Negative Balance/Special Test Scores Quick DASH Score: 52.2725 Goals Goal 1:: DECREASE C/O NECK AND JERALD SHLD PAIN BY AT LEAST 75% TO EASE ADL AND SLEEP FUNCTION Goal Time Frame: 4-6 Weeks Goal 2:: IMPROVE REACHING, LIFTING, PUSHING, PULLING, CLEANING, DRESSING AND SLEEP FUNCTION Goal Time Frame: 4-6 Weeks Goal 3:: INSTRUCT IN PROPHYLAXIS Goal Time Frame: 4-6 Weeks Rehabilitation Potential Physical Therapy Diagnosis: JERALD SHLD PAIN L>R WITH WEAKNESS AND DECREASED NECK ROM AND PAIN. Rehabilitation Potential: Good Anticipated Interventions Patient/Client Instruction: Educate patient on: Condition, Plan of Care and Risk Factors For the Purpose of:: To improve self management Therapeutic Exercise to Include: Strength training, Body mechanics, Postural training, Flexibilty training, Neuromotor development and Scapular Strength/Stabilization For the Purpose of:: To decrease pain, To decrease swelling/inflammation, To increase ROM, To improve muscle performance and motor function, To improve ability to perform ADL's, To increase tolerance to activity/condition/position, To improve ability of physical actions for home/community/work/leisure and To improve self management Cryotherapy (ice pack, ice massage): Yes Thermo therapy (hot pack): Yes Ultrasound (thermal/non thermal): Yes For the Purpose of:: To decrease pain, To decrease swelling/inflammation and To improve nutrient delivery to tissue Text: Thank you for the opportunity to evaluate your patient. For Medicare and Medicare HMO plans, please review the plan of care and approve it. It will need to be FAXED BACK to us at [phone] for Medicare purposes. For Medicare only, by signing this I certify the plan of care. Please let me know if there are questions or concerns regarding this plan of care. Physician Signature: Date:
--- NOTE | 2024-08-12 12:04 | HP.PTREVAL_ITS ---
Re-Evaluation Intro: Lex Rhoades MD, It has been my pleasure to treat RAMONA DONIS over the last 7 visits for JERALD SHLD PAIN. Please see the progress note below for an update on the physical therapy plan of care! Subjective Subjective: PATIENT REPORTS HER SHLD PAIN HASN'T BEEN BAD IN THE LAST FEW DAYS. SHE REPORTS LESS PAIN AT NIGHT. SHE ALSO REPORTS LESS HEAD, NECK AND SHLD PAIN DURING THE DAY. SHE RELATES HER IMPROVEMENT TO PHYSICAL THERPAY EXERCISES. TAKING AMBIAN THOUGH - STARTED TAKING IT AGAIN ABOUT A WK AGO. SHE RELATES HER IMPROVEMENT TO THE THERAPY. SHE PLANS TO CONTINUE HER HEP UNTIL HER TRANG'T WITH DR. OKEEFE. STATES SHE FLARED UP HER LOW BACK BENDING OVER HELPING HER DAUGHTER CLEAN THE TRACK OF HER SLIDING DOOR - I SHOULDN'T HAVE DONE IT. Objective Objective/Function: PATIENT WAS SEEN TODAY FOR RE-ASSESSMENT OF PROGRESS TOWARD THE SET PT GOALS AND THE NEED FOR FURTHER PHYSICAL THERAPY VS READINESS FOR DISCHARGE. THIS PATIENT HAS HAD SOME IMPROVEMENT IN HER SUBJECTIVE REPORTS OF HEAD, NECK AND SHLD PAIN SINCE STARTING PT BUT SHE STILL HAS ROM AND STRENGTH DEFICITS BELOW. SHE IS INDEP WITH A HEP AND PHYSICIAN RE-ASSESSMENT IS RECOMMENDED. PATIENT IS AGREEABLE. UPON EXAM TODAY: ROM deficit: PATIENT WITH FULL JERALD SHLD ELEVATION TODAY. C/O L SHLD PAIN WITH REACHING. Motor deficit: R SH FLEX 4/5, L 4-/5, ABD R 4/5 L 3+/5, IR R 5/5 L 4/5, ER R 4/5 L 3+/5. R ELBOW 5/5 L 5/5. 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 Dural Signs: NEGATIVE JERALD UE'S. Cervical Mvmt Loss: Flex: NIL Pro: NIL - INCREASES L NECK - NW Ext: MIN Ret: MOD RSB: MOD - INCREASES L NECK - NW LSB: MIN - INCREASES R NECK PAIN - NW R Rot: MIN - NE L Rot: MIN - NE Postural strength: POOR Palpation: MILD TENDERNESS L BICIPITATL GROOVE REGION. Plan Plan Plan: HOLD PT UNTIL PHYSICIAN FOLLOW UP. Balance/Gait/Functional tests Balance/Special Test Scores Quick DASH Score: 27.2725 Goals Goals Goal 1:: DECREASE C/O NECK AND JERALD SHLD PAIN BY AT LEAST 75% TO EASE ADL AND SLEEP FUNCTION Goal Time Frame: 4-6 Weeks Goal Progress: Progressing Goal 2:: IMPROVE REACHING, LIFTING, PUSHING, PULLING, CLEANING, DRESSING AND SLEEP FUNCTION Goal Time Frame: 4-6 Weeks Goal Progress: Progressing Goal 3:: INSTRUCT IN PROPHYLAXIS Goal Time Frame: 4-6 Weeks Goal Progress: Progressing Anticipated Interventions Anticipated Interventions Patient/Client Instruction: Educate patient on: Condition, Plan of Care and Risk Factors For the Purpose of:: To improve self management Therapeutic Exercise to Include: Strength training, Body mechanics, Postural training, Flexibilty training, Neuromotor development and Scapular Strength/Stabilization For the Purpose of:: To decrease pain, To decrease swelling/inflammation, To increase ROM, To improve muscle performance and motor function, To improve ability to perform ADL's, To increase tolerance to activity/condition/position, To improve ability of physical actions for home/community/work/leisure and To improve self management Cryotherapy (ice pack, ice massage): Yes Thermo therapy (hot pack): Yes Ultrasound (thermal/non thermal): Yes For the Purpose of:: To decrease pain, To decrease swelling/inflammation and To improve nutrient delivery to tissue Re-Evaluation Ending Re-evaluation ending: Please do not hesitate to contact me at [phone] by phone or if you have questions or concerns regarding this new plan of care! Sincerely, Sary Mejia, PT, Cert MDT
== END 2024-08-12 19:00 | disposition home or self-care (01) ==
LOC: PT 11:30
PROVIDERS: PCP Family Medicine; Visit Provider Family Medicine
DX: M25.511 Pain in right shoulder (principal); M25.512 Pain in left shoulder
CPT/HCPCS: 97035; 97110; 97162; 97530

== ENCOUNTER → 2024-10-04 | Outpatient (CLI) | payer MEDICARE, OTHER, SELFPAY ==
--- NOTE | 2024-10-04 09:30 | MRI_ITS ---
PROCEDURE: SPINE CERVICAL (ROUTINE) REASON FOR EXAM: Neck pain. Tingling. TECHNIQUE: Noncontrast cervical spine MRI. COMPARISON: Cervical spine x-ray from 07/20/2024. FINDINGS: Cervical vertebral bodies maintain a normal height. There is straightening of the cervical lordosis. There is diminished signal intensity involving the discs throughout the cervical spine relating to degenerative disc disease. Multilevel disc space narrowing with endplate spurring is identified which is mostly on a severe basis and greatest from C4-C7. No acute fracture or subluxation is identified. Cervical spinal cord demonstrates a normal signal intensity and morphology. Cerebellar tonsils are within normal range. Paraspinous musculature is unremarkable. C2-3: Mild disc osteophyte complex with no significant central canal stenosis or neural foraminal narrowing. Facet arthropathy is identified. C3-4: Disc osteophyte complex results in flattening of the ventral thecal sac and abutment of the ventral spinal cord with mild central canal stenosis. Facet/uncovertebral changes are identified with no significant neural foraminal narrowing. C4-5: Disc osteophyte complex results in flattening of the ventral thecal sac and mild mass effect on the ventral spinal cord with moderate to severe central canal stenosis. Facet/uncovertebral changes are present with severe left and [id number] right neural foraminal narrowing. 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 Facet/uncovertebral changes are present with severe left and [id number] right neural foraminal narrowing. C6-7: Disc osteophyte complex results in mass effect on the ventral spinal cord with severe central canal stenosis. Facet/uncovertebral changes are present severe left neural foraminal narrowing. Right neural foramina is patent. C7-T1: Grade 1 anterolisthesis with disc osteophyte complex results in moderate central canal stenosis. Facet/uncovertebral changes are present with moderate bilateral neural foraminal narrowing. MRI/Spine Cervical (Routine) IMPRESSION: 1. Multilevel degenerative disc disease and spondylosis with severe central can al stenosis from C5-C7, moderate to severe central canal stenosis at C4-C5, moderate central canal stenosis at C7-T1, and mild markel tral canal stenosis at C3-C4. Multilevel varying degrees of neural foraminal narrowing are identified as above. 2. No abnormal cord signal. Reading Location: [facility]
== END | disposition home or self-care (01) ==
LOC: MRI 08:59
PROVIDERS: PCP Family Medicine; Referring Provider Family Medicine; Visit Provider Family Medicine
DX: R20.2 Paresthesia of skin (principal)
CPT/HCPCS: 72141

== ENCOUNTER 2024-11-04 05:26 | Day surgery (SDC) | payer MEDICARE, OTHER, SELFPAY ==
[2024-11-04] VITALS (13 sets, daily range): BP systolic 81–101; BP diastolic 43–62; PULSE 66–82; RESP 14–18; TEMP 36.6–36.9; O2SAT 93–100; BMI 23.5
[2024-11-04] MEDS: 0.9% Normal Saline (1000mL) 1,000 ML 15 ML IV (06:26)
--- NOTE | 2024-11-04 06:32 | SUR.PREOP ---
cardiac murmur heard on pre op auscultation; patient describes at baseline
--- NOTE | 2024-11-04 06:37 | PRE.ANES_ITS ---
ASA Classification* ASA Classification ASA Classification: 3 (Thyroid dz, anemia, hx of PFO, HLD) Assessment & Plan Anesthesia* Anesthesia Assessment Anesthesia Assessment: Discussed sedation and/or anesthesia options, risks, benefits, and alternatives with patient/parents/legal guardian/POA. Questions invited. The patient/parents/legal guardian/POA seems to understand and agrees to proceed with anesthesia plan. Reviewed the physical assessment, medical history, allergy history and patient home medications list prior to surgery/procedure/anesthetic and documented any changes. Performed airway and anesthesia risk assessments. Anesthesia Type Anesthesia Type: General History Source History Obtained from:: Patient and Chart Anesthesia Focused Assessment* Temperature: 98 F Pulse Rate: 82 Blood Pressure: 93/62 Respiratory Rate: 16 Pulse Ox: 96 Oxygen Delivery Method: Room Air Airway Assessment Mouth opens: >3 cm Mallampati Score: III Teeth Condition: Dentures, Lower (partial) and Upper Neck Range of motion (ROM): Full ROM Focused Labs Anesthesia Preop lab: CBC WBC 4.6 K/mm3 (4.4-11.0) 07/20/24 12:37 07/20/24 RBC 4.24 M/mm3 (4.2-5.4) 07/20/24 12:37 07/20/24 Hgb 12.8 g/dL (12.0-15.0) 07/20/24 12:37 07/20/24 Hct 39.4 % (37-47) 07/20/24 12:37 07/20/24 Plt Count 216 K/mm3 (150-450) 07/20/24 12:37 07/20/24 CHEMISTRY Potassium 3.7 mmol/L (3.5-5.1) 07/20/24 12:37 07/20/24 Sodium 141 mmol/L (136-145) 07/20/24 12:37 07/20/24 Magnesium 2.2 mg/dL (1.6-2.6) 07/20/24 12:37 07/20/24 BUN 15 mg/dL (7-18) 07/20/24 12:37 07/20/24 Creatinine 0.68 mg/dL (0.55-1.02) 07/20/24 12:37 07/20/24 Glucose 91 mg/dL (74-106) 07/20/24 12:37 07/20/24 TSH 2.500 uIU/mL (0.300-4.200) 10/28/24 14:18 03/02/16 COAG Pre-Assessment Diagnosis/Proposed Procedure Planned Operative Procedure(s): Hernia,Open Incisional Repair w/ poss Mesh Anesthesia History 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 When Was Last Pacemaker Check QUESTION #4 FULL TEXT: You/Your Family Experience fever (hyperthermia) with Anesthesia Last Oral Intake Last Oral intake: Last Oral Intake NPO since 21:00 11/04/24 06:19 Meds taken in AM with sips of No 11/04/24 06:19 water? Meds patient instructed to take am of surgery PONV PONV - aviation medicine specialist: PONV - aviation medicine specialist Female Yes 10/21/24 10:11 HX of Motion Sickness No 10/21/24 10:11 HX of N/V After Surgery No 10/21/24 10:11 Non-Smoker Yes 10/21/24 10:11 Duration of Surgery greater Yes 10/21/24 10:11 than 60 minutes Number of Risk Factors 3 10/21/24 10:11 PONV Score Moderate Risk 10/21/24 10:11 Height & Weight Height & Weight: Anesthesia: Height & Weight Height 5 ft 5 in 11/04/24 06:19 Weight: 64.2 kg 11/04/24 06:19 Body Mass Index (BMI) 23.5 11/04/24 06:19 Respiratory Assessment Respiratory Assessment - aviation medicine specialist: Respiratory Tract Infection Hx - aviation medicine specialist Hx Respiratory Tract Infection No 10/21/24 10:11 STOP Sleep Apnea STOP Sleep Apnea - aviation medicine specialist: STOP Sleep Apnea - aviation medicine specialist Hx Hypertension No 10/21/24 10:11 Hx Sleep Apnea No 10/21/24 10:11 CPAP BIPAP Do you snore loudly (louder No 10/21/24 10:11 than talking or can be heard Do you often feel tired/ No 10/21/24 10:11 fatigued/ sleepy during daytime? Has anyone observed you stop No 10/21/24 10:11 breathing during sleep? STOP Results Negative 10/21/24 10:11 QUESTION #5 FULL TEXT : Do you snore loudly (louder than talking or can be heard through closed doors)? 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 Specify any problems Hx of Preganancy in last 3 N/A 10/21/24 10:11 Months Nurse Filling Out Transfusion NBUCHER 10/21/24 10:11 & Questions: Date: 10/21/24 10/21/24 10:11 Time: 10:11 10/21/24 10:11 Patient unable to answer at this time (ie. confused, unrespo /Reproduction History /Reproductive History - aviation medicine specialist: /Reproductive Hx- aviation medicine specialist Hx Now No 10/21/24 10:11 Gestational Age (in weeks): EDC: Hx Hx Para Hx Section SAB No 10/21/24 10:11 Active Medications Active Medications: Current Medications Generic Name Dose Route Start Last Admin Trade Name Freq PRN Reason Stop Dose Admin Cefazolin Sodium 2 gm/ N/A 20 mls @ 400 mls/hr 11/04/24 07:30 IV 11/04/24 07:32 PREOP ONE Sodium Chloride 1,000 mls @ 15 mls/hr 11/04/24 06:00 11/04/24 06:26 IV 11/09/24 19:19 15 mls/hr .Q48H [facility] Administration Protocol [facility] Medical History Wears glasses Wears partial dentures Wears dentures Depression Cervical stenosis of spine Arthritis Low iron High cholesterol Non-smoker Shortness of breath on exertion History of echocardiogram History of stress test Thyroid disease Heart murmur Home Medications ?Medication ?Instructions ?Recorded ?Last Taken ?Type alendronate 35 mg tablet 35 mg PO QWEEK 09/27/2405/19 History atorvastatin 80 mg tablet 80 mg PO QDAY 09/27/2411/03 History baclofen 10 mg tablet 10 mg PO QDAY 09/27/2411/03 History calcium carbonate 500 mg PO QDAY 09/27/2410/23 History levothyroxine 100 mcg capsule 100 mcg PO QDAY 09/27/24 11/03/24 History gozoeyqq-vftwdlin-skyuo acid 240 1 tab PO DAILY 11/03/24 History mcg-vit K1 150 mcg-herb 357 tablet (Alive Women's 50 Plus Ultra Multivitamin) vitamins A,C,O-oana-gppwrc 4,296 1 cap PO BID 09/27/24 11/03/24 History mcg-226 mg-90 mg capsule (PreserVision AREDS) zolpidem 10 mg tablet 10 mg PO QHS 09/27/24 History Allergy/AdvReac Type Severity Reaction Status Date / Time No Known Allergies Allergy Verified 11/04/24 06:15 Family History (Updated 09/27/24 @ 14:13 by Germania Mathur) Sister Diabetes Surgical History History of hysterectomy Previous back surgery Social History (Updated 09/27/24 @ 14:13 by Germania Mathur) Smoking Status: Never smoker alcohol intake: never substance use type: does not use Prior Cardiac Testing/Procedures Prior Cardiac Testing/Procedures: Echocardiogram (The estimated ejection fraction is 60 %. No evidence for diastolic dysfunction. Mild focal mitral valve calcification. Mild mitral annular calcification. Mild to moderate aortic stenosis. Bubble contrast study is positive for PFO) Review of Systems (Anesthesia) ROS Narrative System reviewed and no additional complaints, except as documented. Physical Exam Const alert, oriented x3 and average body habitus Resp normal respiratory effort, normal air movement and clear to auscultation bilaterally Cardio regular rate, regular rhythm and diaphoretic Cardio Narrative: (+) murmur
--- NOTE | 2024-11-04 07:17 | PCM.HP.STD ---
HPI - General General Date of Service: 11/04/24 HPI Narrative RAMONA DONIS, is a 79 F who presents for umbilical hernia pair with possible mesh. Patient still been having pain at her umbilicus. Patient states she did have a fever last night but no other symptoms this morning does not have any fevers or symptoms as well. 09/27/24 HPI HPI: 79-year-old female presents due to umbilical hernia. Patient states she has had this for about 10 months had severe discomfort twice more recently. Patient is interested in having it repaired. Patient denies any abdominal surgeries. [facility] Medical History Wears glasses Wears partial dentures Wears dentures Depression Cervical stenosis of spine Arthritis Low iron High cholesterol Non-smoker Shortness of breath on exertion History of echocardiogram History of stress test Thyroid disease Heart murmur Home Medications ?Medication ?Instructions ?Recorded ?Last Taken ?Type alendronate 35 mg tablet 35 mg PO QWEEK 09/27/24 10/31/24 History atorvastatin 80 mg tablet 80 mg PO QDAY 09/27/24 11/03/24 History baclofen 10 mg tablet 10 mg PO QDAY 09/27/24 11/03/24 History calcium carbonate 500 mg PO QDAY 09/27/24 11/03/24 History levothyroxine 100 mcg capsule 100 mcg PO QDAY 09/27/24 11/03/24 History frjpwwpe-bwkmavjq-wyozh acid 240 1 tab PO DAILY 09/27/24 11/03/24 History mcg-vit K1 150 mcg-herb 357 tablet (Alive Women's 50 Plus Ultra Multivitamin) vitamins A,C,W-gmus-xzauev 4,296 1 cap PO BID 09/27/24 11/03/24 History mcg-226 mg-90 mg capsule (PreserVision AREDS) zolpidem 10 mg tablet 10 mg PO QHS 09/27/24 11/03/24 History Allergy/AdvReac Type Severity Reaction Status Date / Time No Known Allergies Allergy Verified 11/04/24 06:15 Family History (Updated 09/27/24 @ 14:13 by Ramona Mathur) Sister Diabetes Surgical History History of hysterectomy Previous back surgery Social History (Updated 09/27/24 @ 14:13 by Ramona Mathur) Smoking Status: Never smoker alcohol intake: never substance use type: does not use Vital Signs Vital Signs Vital Signs: 11/04/24 06:19 11/04/24 06:19 11/04/24 06:41 Temperature 98 F 98 F Temperature Source Temporal Pulse Rate 82 82 Respiratory Rate 16 16 Respiratory Pattern Normal Blood Pressure 93/62 93/62 Blood Pressure Mean 72 Blood Pressure Source Monitor Blood Pressure Position Semi-Fowlers Blood Pressure Location Right Arm Pulse Ox 96 96 Oxygen Delivery Method Room Air Room Air Weight Weight: 141 lb 8.588 oz Body Mass Index (BMI) 23.5 Physical Exam Const alert, oriented x3 and no apparent distress HEENT normocephalic and head/scalp atraumatic Resp normal respiratory effort Cardio regular rate GI soft to palpation; Negative for non-distended GI Narrative: Tender at umbilicus, umbilical hernia Palpation: Negative for guarding Extremity no clubbing, cyanosis or edema Skin no rashes or lesions noted Neuro CN's II-XII intact bilaterally Psych mental status grossly normal Assessment & Plan Assessment/Plan (1) Umbilical hernia: PLAN: Plan Plan to do an umbilical hernia repair with possible mesh. Reviewed the procedure with the patient including the risks, including but not limited to infection, bleeding, injury to the small bowel, and recurrence. Patient no further questions time. Shelly Leonard M.D. Pager: [phone] [facility] [address] [place] [address], [address] [place] [id number] Office: [phone]
[2024-11-04] MEDS: Cefazolin 2 GM in Syringe IV (07:40)
[2024-11-04] MEDS: Bupiv/Epi 0.25% 30 ML Vial (08:04)
--- NOTE | 2024-11-04 08:05 | OP.PCM_ITS ---
Operative Report (Standard) Operative Information Date of Procedure: 11/04/24 Pre-Operative Diagnosis: Umbilical hernia Post-Operative Diagnosis: Same Surgery/Procedure Performed: Umbilical hernia repair with mesh cafeteria assistant: Yes Stretcher Leveler Operator Helper: Timoteo Ruiz Tasks completed by retail event and sales assistant: Opening & closing Type of Anesthesia: General/Supplemental RN Documented Start/Stop Times: Operation Date: 11/04/24 07:30 Case Time Into Pre-Op 11/04/24 05:40 Out of Pre-Op 11/04/24 07:18 Anesthesia Start 11/04/24 07:25 Into Room 11/04/24 07:25 Procedure Start 11/04/24 07:45 Procedure Start Time: 07:45 Procedure Stop Time: 08:12 Select all DRAINS/GRAFTS/IMPLANTS that apply: Prosthetic device Prosthetic device details: Ventralex ST hernia patch 4.3 cm in diameter, Lot [id number] ref [id number] Special Medications: Ancef 2 g IV x 1 Estimated Blood Loss: < 10 cc Specimen collected: No Description of surgery: Patient was brought into the room placed supine on the operating table. Correct patient, procedure, site, positioning, special, was verified prior to procedure. General anesthesia was induced. The abdomen was prepped draped in usual sterile fashion. A curvilinear incision was made below the umbilicus with a 15 blade scalpel. This was deepened with electrocautery. A hemostat was used to go around the stalk of the umbilicus and Metzenbaum scissors was used to carefully divide the hernia sac from the skin of the umbilicus. The fascia around the hernia defect was cleared and the hernia defect measured 1.4 cm x [address] hernia patch 4.3 cm was selected. This was secured laterally at its tails with 0 Nurolon horizontal mattress suture. The hernia defect was closed with a rehsml-[id number] 0 Nurolon. The wound was irrigated with saline. Hemostasis was assured. The skin of the umbilicus was secured to the fascia using 3-0 Vicryl suture interrupted. The incision was closed with 3-0 Vicryl subdermal interrupted sutures and the skin was closed with interrupted 4-0 Monocryl sutures. Steri-Strips and Tegaderm and OpSite were placed over the incision once sterile cotton balls were placed in the umbilicus. Patient was extubated. Patient tolerated procedure well and was taken to the postanesthesia care unit in stable condition. Surgical Findings: See operative report Complications Complications: No
--- NOTE | 2024-11-04 08:08 | EX.PCM.DISCH ---
Discharge Instructions Diet Discharge Diet: Light diet - advance as tolerated Activity May shower in (days): 5 (Keep umbilical dressing clean dry and intact for 5 days. Okay to tape off with a Ziploc bag to shower. Or lower shower and upper sponge bath.) Lifting Restrictions: no lifting >20 lbs x 2 wks, no strenuous exercise for 4 wks Additional Activity Instructions:: - Dressing / Incision Call your doctor if your incision/area has: Continuous Slow Oozing, Sudden Increased Bleeding, Increased Pain/ Swelling, Increased Redness, Foul Smelling Discharge and Swelling at the incision site Call your doctor if you observe: Fever of 101 or Higher Remove Dressing in: 5 days (After 5 days okay to remove surgical dressing. Place cotton ball or rolled up gauze in bellybutton and retape daily for 2 more days.) Cleanse incision/area with: Do not get Incision Wet (for 5 days) Additional Dressing/Incision Instructions:: Steri-Strips will fall off in 7 to 10 days, if they do not fall off okay to remove after 10 days. Follow Up Care Please Follow Up With: Shelly Leonard MD When: Call the office for a follow-up appointment 2 weeks; after 5 PM and on the weekends call [phone] with any concerns. Test Results: Test results from this visit will be discussed in further detail at your follow-up appointment, if applicable. Discharge Plan Admission Attending Provider: Shelly Leonard Primary Care Provider: Austin Cabrera Instructions Additional Instructions / Restrictions: Okay to take ibuprofen 400-600 mg PO q6hr PRN and Tylenol 650 to 1000 mg p.o. every 6 hours as needed along with the oxycodone. Take all pain meds with food. Oxycodone can cause constipation recommend taking daily stool softener (i.e. Colace/docusate) while taking the pain meds. Recommend starting some MiraLAX in 1 to 2 days if no bowel movement. If still no bowel movement the following day recommend taking additional MiraLAX versus magnesium citrate half the bottle and waiting 4-6 hours if still no results take the other half the bottle. Print Language: [place] Discharge Orders/Prescriptions Prescriptions: New oxycodone 5 mg capsule 5 mg PO Q6H PRN (Reason: pain) 3 Days Qty: 10 0RF Continued levothyroxine 100 mcg capsule 100 mcg PO QDAY atorvastatin 80 mg tablet 80 mg PO QDAY zolpidem 10 mg tablet 10 mg PO QHS baclofen 10 mg tablet 10 mg PO QDAY PreserVision AREDS 4,296 mcg-226 mg-90 mg capsule 1 cap PO BID calcium carbonate 500 mg calcium (1,250 mg) tablet 500 mg PO QDAY Alive Women's 50 Plus Ultra MV 240-150 mcg tablet 1 tab PO DAILY alendronate 35 mg tablet 35 mg PO QWEEK Other Ambulatory Orders: 12 Lead EKG (Routine) Location: None Selected Ordered By: Dr. Tito Dexter Referrals / Follow Up: Austin Cabrera MD [Primary Care Provider] - Disposition Disposition (needs filled in before D/C Order can be placed): Home, Self Care
--- NOTE | 2024-11-04 08:33 | PCM.POST.ANE ---
Anesthesia: Postop Eval I Current Vital Signs Temperature: 98.4 F Pulse Rate: 76 Blood Pressure: 86/53 Respiratory Rate: 18 Pulse Ox: 98 Oxygen Delivery Method: Room Air Assessment Airway patent: Yes Spontaneous unlabored respirations: Yes nausea: No Vomiting: No Anesthesia Complication: No Fluid Hydration Crystalloid volume administer (ml): 1,000 Total IV fluid infused: 1,000 Progress Note Anesthesia document: Postop Eval 1 completed: Yes
--- NOTE | 2024-11-04 11:22 | POSTOPAN2_ITS ---
Anesthesia Postop Eval I Sum Postop Eval Completion status Anesthesia document: Postop Eval 1 completed: Yes Anesthesia Postop Eval I Summary Anesthesia Postop Eval I Summary: Anesthesia Postop Eval I: Assessment Summary Airway patent Yes 11/04/24 09:40 HEAVY MACHINERY OPERATOR.[email or web address] Spontaneous unlabored Yes 11/04/24 09:40 HEAVY MACHINERY OPERATOR.ACAR respirations Mental status nausea No 11/04/24 09:40 HEAVY MACHINERY OPERATOR.ACAR Vomiting No 11/04/24 09:40 HEAVY MACHINERY OPERATOR.ACAR Anesthesia Postop Eval I: Fluid Summary Crystalloid volume administer 1,000 11/04/24 09:40 HEAVY MACHINERY OPERATOR.ACAR (ml) Colloids volume administered ( ml) Blood Product volume administered (ml) Total IV fluid infused 1,000 11/04/24 09:40 HEAVY MACHINERY OPERATOR.ACAR Anesthesia Postop Eval I: Summary Notes Anesthesia Complication No 11/04/24 09:40 HEAVY MACHINERY OPERATOR.ACAR Anesthesia Complication Comment: Post-operative progress note Anesthesia: Postop Eval II Evaluation Mental status: Awake Pain Level: 0 nausea: No Vomiting: No Complications Anesthesia Complication: No
--- NOTE | 2024-11-04 11:22 | PCM.POSTANE2 ---
Anesthesia Postop Eval I Sum Postop Eval Completion status Anesthesia document: Postop Eval 1 completed: Yes Anesthesia Postop Eval I Summary Anesthesia Postop Eval I Summary: Anesthesia Postop Eval I: Assessment Summary Airway patent Yes 11/04/24 09:40 PRODUCTION BROACHER.ACAR Spontaneous unlabored Yes 11/04/24 09:40 PRODUCTION BROACHER.ACAR respirations Mental status nausea No 11/04/24 09:40 PRODUCTION BROACHER.ACAR Vomiting No 11/04/24 09:40 PRODUCTION BROACHER.ACAR Anesthesia Postop Eval I: Fluid Summary Crystalloid volume administer 1,000 11/04/24 09:40 PRODUCTION BROACHER.ACAR (ml) Colloids volume administered ( ml) Blood Product volume administered (ml) Total IV fluid infused 1,000 11/04/24 09:40 PRODUCTION BROACHER.ACAR Anesthesia Postop Eval I: Summary Notes Anesthesia Complication No 11/04/24 09:40 PRODUCTION BROACHER.ACAR Anesthesia Complication Comment: Post-operative progress note Anesthesia: Postop Eval II Evaluation Mental status: Awake Pain Level: 0 nausea: No Vomiting: No Complications Anesthesia Complication: No
== END 2024-11-04 11:04 | disposition home or self-care (01) ==
LOC: SDC 05:26 → AC 05:27
PROVIDERS: Anesthesiology; PCP Family Medicine; Referring Provider Surgery; Visit Provider Surgery
PROC: (CPT 49591; principal; 2024-11-04 07:15)
DX: K42.9 Umbilical hernia without obstruction or gangrene (principal); E07.9 Disorder of thyroid, unspecified; E78.00 Pure hypercholesterolemia, unspecified; Z79.890 Hormone replacement therapy; Z79.899 Other long term (current) drug therapy
CPT/HCPCS: 49591; 00830; 36415; 84443; 93005; C1781; J2405

== ENCOUNTER 2024-12-04 07:32 | Inpatient (IN) | payer MEDICARE, OTHER, SELFPAY ==
[2024-12-04] VITALS (22 sets, daily range): BP systolic 87–140; BP diastolic 48–78; PULSE 78–89; RESP 14–18; TEMP 3.3–38; O2SAT 93–100; BMI 26.5
--- NOTE | 2024-12-04 07:47 | EDS_ITS ---
HPI HPI - GI History of Present Illness Chief Complaint: Abd Pain Informant: patient Narrative Narrative: 79-year-old female presenting to the emergency department with a chief complaint of abdominal pain. Patient states that on Friday she developed a periumbilical ache. Nonradiating. She denies any other associated symptoms. She states is pretty constantly there. She notes some anorexia with it. She denies any fevers but notes her temperatures been up to 99. She denies urinary symptoms. A month ago she underwent umbilical hernia repair with Dr. Leonard. She denies any prior abdominal surgeries. She subsequently followed up and things were progressing normally. [facility] Medical History Umbilical hernia Wears glasses Wears partial dentures Wears dentures Depression Cervical stenosis of spine Arthritis Low iron High cholesterol Non-smoker Shortness of breath on exertion History of echocardiogram History of stress test Thyroid disease Heart murmur Home Medications ?Medication ?Instructions ?Recorded ?Last Taken ?Type alendronate 35 mg tablet 35 mg PO QWEEK 09/27/2405/19 History atorvastatin 80 mg tablet 80 mg PO QDAY 09/27/2411/03 History baclofen 10 mg tablet 10 mg PO QDAY 09/27/2411/03 History calcium carbonate 500 mg PO QDAY 09/27/2410/23 History levothyroxine 100 mcg capsule 100 mcg PO QDAY 09/27/24 11/03/24 History gebrigkt-wwfacvfi-woprz acid 240 1 tab PO DAILY 11/03/24 History mcg-vit K1 150 mcg-herb 357 tablet (Alive Women's 50 Plus Ultra Multivitamin) vitamins A,C,L-nomc-hpwfgj 4,296 1 cap PO BID 09/27/24 11/03/24 History mcg-226 mg-90 mg capsule (PreserVision AREDS) zolpidem 10 mg tablet 10 mg PO QHS 09/27/24 History Allergy/AdvReac Type Severity Reaction Status Date / Time No Known Allergies Allergy Verified 12/04/24 07:33 Family History Sister Diabetes Surgical History S/P umbilical hernia repair, follow-up exam History of hysterectomy Previous back surgery Social History Smoking Status: Never smoker alcohol intake: never substance use type: does not use ROS ROS ED Constitutional Constitutional ED: Denies chills, fever(s) or weight loss Eyes Eyes: Denies change in vision or diplopia ENT ENT ED: Denies ear pain, rhinorrhea or sore throat Cardiovascular Cardiovascular: Denies chest pain, orthopnea, palpitations or racing heartbeat Respiratory/Chest Respiratory/Chest: Denies cough, dyspnea or orthopnea Gastrointestinal Gastrointestinal: Reports abdominal pain; Denies constipation, diarrhea, nausea or vomiting Genitourinary Genitourinary ED: Denies dysuria, hematuria or urinary frequency Musculoskeletal Musculoskeletal: Denies arthralgias or myalgias Integumentary Denies abscess or rash Neurologic Neurologic: Denies headache(s) or weakness Psychiatric Psychiatric: Denies anxiety, depression, suicidal ideation or suicidal thoughts Endocrine Endocrinology: Denies polydipsia, polyphagia or polyuria Allergic/Immunologic Allergic/Immunologic ED: Denies mouth swelling, tongue swelling or urticaria EXAM Physical Exam Const Vital Signs: 12/04/24 07:33 12/04/24 09:32 12/04/24 11:00 Temperature 98.9 F Temperature Source Oral Pulse Rate 89 82 82 Respiratory Rate 18 18 18 Blood Pressure 108/66 140/62 H Blood Pressure Mean 80 88 Pulse Ox 97 96 96 Oxygen Delivery Method Room Air Positive well nourished and well developed General Appearance ED: well developed and NAD HEENT Reports normocephalic, head/scalp atraumatic and moist mucous membranes Eyes PERRL and EOMs intact bilaterally Neck no lymphadenopathy, supple and no JVD Resp normal respiratory effort and clear to auscultation bilaterally Cardio regular rate, regular rhythm and no murmurs GI Inspection: Negative for abdominal distention Auscultation: normoactive bowel sounds Palpation: soft and tender LLQ, RLQ, LUQ and periumbilical; Negative for guarding or rebound tenderness present Back/Spine no CVA tenderness and normal ROM Extremity normal to inspection General Extremety ED: Negative for edema General Extremity: Negative for edema Neuro oriented x3 and CN's II-XII intact bilaterally Sensorium / Orientation: alert Motor Exam: strength 5/5 throughout Psych mental status grossly normal Mood & Affect: Negative for depressed or tearful Skin no rashes or lesions noted and no wounds MDM MDM MDM Narrative Medical decision making narrative: Differential diagnosis includes but not limited to bowel obstruction diverticulitis abscess bowel perforation pancreatitis gastroenteritis biliary disease Patient received morphine and Zofran. Patient's white count is 7.4 the hemoglobin 12.2 platelet count of 182. 83.2 neutrophils. Liver panel and lipase within normal limit except for alkaline phosphatase of 110. BMP within normal limits urinalysis is negative. CT of the abdomen pelvis with oral and IV contrast was obtained. This was read by radiology reviewed by myself. This is concerning for possible perforated small bowel with abscess formation and pneumoperitoneum. Case was discussed with Dr. Light from general surgery who is come to the emergency department to evaluate the patient. She has received a dose of Zosyn and plan is to take the patient to the operating room and admission. History & Record Review Discussion w/independent historian: Patient and Significant other Additional record(s) reviewed:: Prior outpatient record Lab Data Attestation: I reviewed the patient's lab results. Labs: Laboratory Results - last 24 hr 12/04/24 12/04/24 08:04 08:25 WBC 7.4 RBC 4.11 L Hgb 12.2 Hct 37.1 MCV 90.3 MCH 29.7 MCHC 32.9 RDW Std Deviation 46.5 H RDW Coeff of Zia 14.0 Plt Count 182 MPV 10.9 Immature Gran % (Auto) 0.400 Neut % (Auto) 83.2 H Lymph % (Auto) 9.5 L [place] % (Auto) 6.5 Eos % (Auto) 0.3 Baso % (Auto) 0.1 Absolute Neuts (auto) 6.2 Absolute Lymphs (auto) 0.71 L Nucleated RBC % 0 Sodium 135 Potassium 4.5 Chloride 101 Carbon Dioxide 24.3 Anion Gap 10 BUN 17 Creatinine 0.72 Estim Creat Clear Calc 52.40 Est GFR (MDRD) Non-Af 86 BUN/Creatinine Ratio 23.5 H Glucose 98 Calcium 9.0 Total Bilirubin 0.59 Direct Bilirubin 0.28 AST 39 H ALT 32 Alkaline Phosphatase 110 H Total Protein 6.9 Albumin 3.5 Globulin 3.4 Lipase 31 Urine Color Yellow Urine Clarity Sl. Cloudy Urine pH 6.0 Ur Specific [place] 1.010 Urine Protein 15 H Urine Glucose (UA) Normal Urine Ketones 15 H Urine Occult Blood Negative Urine Nitrite Negative Urine Bilirubin Negative Urine Urobilinogen Normal Ur Leukocyte Esterase 25 H Urine RBC 0 SEEN Urine WBC 0-5 SEEN Ur Squamous Epith Cells 0-5 SEEN Urine Bacteria 1+ Urine Mucus RARE Radiography Diagnostic Testing: Clinical Impression(s) from Imaging Studies Abdomen/Pelvis CT 12/04/24 09:30 IMPRESSION: 1. Dilation of a central small bowel loop with focal rim enhancing intraperitoneal mass which appears in continuity with the small bowel loop, most compatible with small bowel perforation and abscess. Surgical consultation recommended. 2. Punctate free air along the dependent margin of the caudate lobe, compatible with pneumoperitoneum. 3. Severe distal colonic diverticulosis. Findings were discussed by Dr. Stevens with Dr. Naranjo via telephone at 10:34 a.m. on 12/04/2024. Reading Location: [id number] Management Discussion w/another healthcare provider: Shirring Machine Operator Automatic (Dr Light) and Radiologist Discharge Plan Dx/Rx/DC Orders Clinical Impression: Perforated small intestine, Intra-abdominal abscess, Pneumoperitoneum, Abdominal pain, acute Disposition Disposition: Acute Care Hospital [facility]
[2024-12-04 08:11] LABS: Absolute Lymphocyte Count 0.71 X10^3/uL (0.83-4.51); Absolute Neutrophil Count 6.2 X10^3/uL (2.0-7.7); Basophil# 0.01 X10^3/uL; Basophil% 0.1 % (0-1); Eosinophil# 0.02 X10^3/uL; Eosinophils% 0.3 % (0-5); Hematocrit 37.1 % (37-47); Hemoglobin 12.2 g/dL (12.0-15.0); Lymphocyte # 0.71 X10^3/ul (0.83-4.51); Lymphocyte % 9.5 % (19-41); Mean Corp Hgb Conc 32.9 g/dL (32-36); Mean Corpuscular Hgb 29.7 pg (27.0-32.0); Mean Corpuscular Volume 90.3 fL (81-99); Mean Platelet Vol. 10.9 fl (6.2-12.0); Monocyte# 0.48 X10^3/uL; Monocyte% 6.5 % (0-10); NRBC Flagged by Analyzer 0 % (0-5); Neutrophil # 6.19 X10^3/uL (2.7-7.7); Neutrophil % 83.2 % (47-70); Platelet Count 182 K/mm3 (150-450); RBC Distribution Width SD 46.5 fl (35.1-43.9); Red Blood Count 4.11 M/mm3 (4.2-5.4); White Blood Count 7.4 K/mm3 (4.4-11.0)
[2024-12-04] MEDS: Ondansetron 4 MG/2 ML Vial IV ×2 (08:18→21:58)
[2024-12-04] MEDS: Morphine 4 MG/ML Syringe IV (08:18)
[2024-12-04 08:31] LABS: Red Blood Cells-Urine 0 SEEN /hpf (0-5)
[2024-12-04 08:31] LABS: AST(SGOT) 39 U/L (<=31); Alanine Aminotransfer ALT/SGPT 32 U/L (<=34); Albumin, Serum 3.5 g/dL (3.4-4.8); Alkaline Phosphatase 110 U/L (35-104); Anion Gap 10 (5-15); BUN 17 mg/dL (4-19); BUN/Creat Ratio 23.5 RATIO (10-20); Bilirubin, Direct 0.28 mg/dL (0.00-0.30); Carbon Dioxide 24.3 mmol/L (21.0-32.0); Chloride 101 mmol/L (98-108); Creatinine, Serum 0.72 mg/dL (0.70-1.20); EST Glomerular Filtration Rate 86 (>60); Globulin 3.4 g/dL (2.2-4.2); Glucose 98 mg/dL (70-99); Lipase 31 U/L (13-75); Potassium 4.5 mmol/L (3.3-5.1); Protein, Total 6.9 g/dL (5.9-8.4); Sodium Level 135 mmol/L (133-145); Total Bilirubin 0.59 mg/dL (0.00-1.30)
[2024-12-04 08:42] LABS: Color, Urine Yellow (Yellow); Glucose, Dipstick Normal (Normal); Ketone-Dipstick 15 mg/dl (Negative); Leukocyte Esterase-Dipstick 25 /ul (Negative); Nitrite-Dipstick Negative (Negative); Occult Blood-Urine Negative /ul (Negative); Protein-Dipstick 15 mg/dl (Negative); Urine Bilirubin Dipstick Negative (Negative); Urine Clarity Sl. Cloudy (Clear); Urine Urobilinogen Normal (Normal)
[2024-12-04 08:56] LABS: Bacteria 1+ /hpf (None Seen); Mucous, Urine RARE /hpf (<or=2+); Squamous Epithelial Cells - UA 0-5 SEEN /hpf (5-10); White Blood Cells 0-5 SEEN /hpf (0-5)
--- NOTE | 2024-12-04 09:30 | CT_ITS ---
PROCEDURE: ABDOMEN/PELVIS WITH CONTRAST 12/04/2024 REASON FOR EXAM: ABDOMINAL PAIN TECHNIQUE: Abdomen and pelvis CT with intravenous contrast. Coronal and Sagittal reconstruction series were provided. PATIENT PREPARATION: Per protocol ORAL CONTRAST: Administered. CONTRAST: Isovue 370 VOLUME: 100 mL One or more dose reduction techniques were used (e.g., Automated exposure control, adjustment of the mA and/or kV according to patient size, use of iterative reconstruction technique. RADIATION DOSE SUMMARY: CTDlvol: 10 mGy DLP: 580 mGycm COMPARISON: None. FINDINGS: Lung bases: The heart is normal in size with aortic valvular calcifications. The lung bases are clear. Liver: The liver is normal in size without focal hepatic mass. The major portal veins are patent. No biliary ductal dilation. There is punctate free air along the dependent margin of the caudate lobe. Gallbladder: No radiopaque stones within the gallbladder. Spleen: Normal-size. Pancreas: Unremarkable. Adrenals: Mild thickening of the left adrenal gland without adrenal mass. Unremarkable right adrenal gland. Kidneys: Bilateral parapelvic cysts. No hydronephrosis or nephrolithiasis. Bladder: Distended and unremarkable. Reproductive Organs: Appropriate for patient age. Bowel: There is dilation of a central small bowel loop measuring up to 3.1 cm (coronal image 45). Just distal to the dilated small bowel loop, there is a focal portion of the small bowel measuring 4.5 x 4.1 cm (series 2, image 60), which demonstrates rim enhancement, air-fluid levels and punctate free air along the superior aspect of the fluid collection (series 2, images 51 and 54). This appears in continuity with the small bowel loop (coronal image 43). Marked fat stranding and edema of the subjacent small bowel loops. No large volume ascites. Normal appendix. Severe distal colonic diverticulosis. Lymph nodes: Prominent mesenteric nodes, likely reactive. Vasculature: Severe mixed aortoiliac plaque. Bones/soft tissues: Subcutaneous thickening within the umbilicus, compatible with recent hernia surgery. Thoracolumbar spondylosis. CT/Abdomen/Pelvis WITH Contrast IMPRESSION: 1. Dilation of a central small bowel loop with focal rim enhancing intraperiton eal mass which appears in continuity with the small bowel loop, most compatible with small bowel perforation and abscess. Minor rgical consultation recommended. 2. Punctate free air along the dependent margin of the caudate lobe, compatible with pneumoperitoneum. 3. Severe distal colonic diverticulosis. Findings were discussed by Dr. Stevens with Dr. Naranjo via telephone at 10:34 a.m. on 12/04/2024. Reading Location: [id number]
--- NOTE | 2024-12-04 11:25 | HP.PCM_ITS ---
HPI - General General Date of Admission: 12/04/24 Chief Complaint: Acute onset abdominal pain and anorexia HPI Narrative RAMONA DONIS, is a 79 F who presents with her to [facility] due to complaints of acute onset abdominal pain in the periumbilical region that began 3 days ago and has persisted. Patient reports some low-grade fevers and night sweats as well as anorexia along with this pain. However she denies any nausea, vomiting, or diarrhea. She denies any change to her diet, generally-speaking, but does confess she has not been able to eat the last couple of days due to the lack of appetite. Patient's ER workup is notable for CBC with differential that demonstrates a mild left shift but no leukocytosis. CT imaging of the abdomen pelvis was performed showing probable small bowel perforation with several foci of pneumoperitoneum. According to emergency medicine radiology discussed the possibility of a closed-loop obstruction, but this is not reflected in their impression. Interestingly, patient just underwent open umbilical hernia repair with mesh by Dr. Leonard on 11/04/2024. She reports an uneventful procedure and uneventful recovery. This represents her only abdominal surgery apart from a tubal ligation procedure approximately 40 years ago. [facility] Medical History Umbilical hernia Wears glasses Wears partial dentures Wears dentures Depression Cervical stenosis of spine Arthritis Low iron High cholesterol Non-smoker Shortness of breath on exertion History of echocardiogram History of stress test Thyroid disease Heart murmur Home Medications ?Medication ?Instructions ?Recorded ?Last Taken ?Type alendronate 35 mg tablet 35 mg PO QWEEK 09/27/2405/19 History atorvastatin 80 mg tablet 80 mg PO QDAY 09/27/2411/03 History baclofen 10 mg tablet 10 mg PO QDAY 09/27/2411/03 History calcium carbonate 500 mg PO QDAY 09/27/2410/23 History levothyroxine 100 mcg capsule 100 mcg PO QDAY 09/27/24 11/03/24 History dmsitvgd-vrqfbejc-imvip acid 240 1 tab PO DAILY 11/03/24 History mcg-vit K1 150 mcg-herb 357 tablet (Alive Women's 50 Plus Ultra Multivitamin) vitamins A,C,Q-kunv-kgemon 4,296 1 cap PO BID 09/27/24 11/03/24 History mcg-226 mg-90 mg capsule (PreserVision AREDS) zolpidem 10 mg tablet 10 mg PO QHS 09/27/24 History Allergy/AdvReac Type Severity Reaction Status Date / Time No Known Allergies Allergy Verified 12/04/24 07:33 Family History Sister Diabetes Surgical History S/P umbilical hernia repair, follow-up exam History of hysterectomy Previous back surgery Social History Smoking Status: Never smoker alcohol intake: never substance use type: does not use Vital Signs Vital Signs Vital Signs: 12/04/24 07:33 12/04/24 09:32 12/04/24 11:00 Temperature 98.9 F Temperature Source Oral Pulse Rate 89 82 82 Respiratory Rate 18 18 18 Blood Pressure 108/66 140/62 H Blood Pressure Mean 80 88 Pulse Ox 97 96 96 Oxygen Delivery Method Room Air Weight Weight: 145 lb Body Mass Index (BMI) 26.5 Physical Exam Const alert, oriented x3 and well nourished General Appearance: cooperative Resp normal respiratory effort GI GI Narrative: Well-healed curvilinear infraumbilical incision without evidence of recurrent hernia. Nondistended, soft, nontender to palpation of the right abdominal quadrants. Focally tender of the left mid abdomen with palpation. Involuntary guarding present. Results Lab / Micro Data 12/04/24 08:04 12/04/24 08:04 Labs: Laboratory Results - last 24 hr 12/04/24 08:04: WBC 7.4, RBC 4.11 L, Hgb 12.2, Hct 37.1, MCV 90.3, MCH 29.7, MCHC 32.9, RDW Std Deviation 46.5 H, RDW Coeff of Zia 14.0, Plt Count 182, MPV 10.9, Immature Gran % (Auto) 0.400, Neut % (Auto) 83.2 H, Lymph % (Auto) 9.5 L, Childress % (Auto) 6.5, Eos % (Auto) 0.3, Baso % (Auto) 0.1, Absolute Neuts (auto) 6.2, Absolute Lymphs (auto) 0.71 L, Nucleated RBC % 0, Sodium 135, Potassium 4.5, Chloride 101, Carbon Dioxide 24.3, Anion Gap 10, BUN 17, Creatinine 0.72, Estim Creat Clear Calc 52.40, Est GFR (MDRD) Non-Af 86, BUN/Creatinine Ratio 23.5 H, Glucose 98, Calcium 9.0, Total Bilirubin 0.59, Direct Bilirubin 0.28, A ST 39 H, ALT 32, Alkaline Phosphatase 110 H, Total Protein 6.9, Albumin 3.5, Globulin 3.4, Lipase 31 12/04/24 08:25: Urine Color Yellow, Urine Clarity Sl. Cloudy, Urine pH 6.0, Ur Specific [place] 1.010, Urine Protein 15 H, Urine Glucose (UA) Normal, Urine Ketones 15 H, Urine Occult Blood Negative, Urine Nitrite Negative, Urine Bilirubin Negative, Urine Urobilinogen Normal, Ur Leukocyte Esterase 25 H, Urine RBC 0 SEEN, Urine WBC 0-5 SEEN, Ur Squamous Epith Cells 0-5 SEEN, Urine Bacteria 1+, Urine Mucus RARE Imaging Radiology Impression Abdomen/Pelvis CT 12/04/24 09:30 IMPRESSION: 1. Dilation of a central small bowel loop with focal rim enhancing intraperitoneal mass which appears in continuity with the small bowel loop, most compatible with small bowel perforation and abscess. Surgical consultation recommended. 2. Punctate free air along the dependent margin of the caudate lobe, compatible with pneumoperitoneum. 3. Severe distal colonic diverticulosis. Findings were discussed by Dr. Stevens with Dr. Naranjo via telephone at 10:34 a.m. on 12/04/2024. Reading Location: [id number] Assessment & Plan Assessment/Plan (1) Perforated small intestine: PLAN: Patient is 79-year-old female who presents with signs and symptoms of small bowel perforation for unknown etiology. She has no prior abdominal surgical history. It is possible this represents perforation of a isolated small bowel diverticulum. Suspected timing of perforation is approximately 48 to 72 hours ago based on her symptoms. Yet she remains remarkably well?appearing is certainly nontoxic. In fact, she does not even display true leukocytosis and her peritonitis is exceptionally localized. Despite these favorable signs, patient does have evidence of pneumoperitoneum and I have recommended emergent exploration via diagnostic laparoscopy. I have also advised her and her that I would be looking to perform a segmental small bowel resection with 3 anastomosis and probable drain placement. They expressed surprise over this information given patient's mild experience with symptoms to date but also confirm readiness to accept my recommendations. Empiric antibiotic coverage has been administered by emergency medicine both operative team and anesthesia are notified of intent to proceed emergently to the OR. Patient will be consented for diagnostic laparoscopy with small bowel resection, reanastomosis and probable drain placement as well as all procedures as indicated. [facility] to monitor for pain control and advancement of the diet. Darrick Light MD General Surgery Endocrine Surgery Pager: [facility] [address] [place] [address] [place] [address] Office: [phone] (2) Pneumoperitoneum: Charges/Coding Visit Charges Inpatient E&M: 10086 Init Hosp L2
[2024-12-04] MEDS: Piperacil/Tazobactam 4.5 GM in 0.9% Normal Saline (100mL MB+) 100 ML IV (11:40)
--- NOTE | 2024-12-04 12:05 | PCM.PRE.AN2 ---
ASA Classification* ASA Classification ASA Classification: 3 and E Assessment & Plan Anesthesia* Anesthesia Assessment Anesthesia Assessment: Objective data and labs reviewed. Mild to moderate with Left to right PFO on bubble study. >4 mets EKG reviewed. Discussed sedation and/or anesthesia options, risks, benefits, and alternatives with patient. Questions invited. The patient seems to understand and agrees to proceed with anesthesia plan. Reviewed the physical assessment, medical history, allergy history and patient home medications list prior to surgery/procedure/anesthetic and documented any changes. Performed airway and anesthesia risk assessments. Anesthesia Type Anesthesia Type: General History Source History Obtained from:: Patient and Chart Anesthesia Focused Assessment* Temperature: 98.9 F Pulse Rate: 82 Blood Pressure: 140/62 Respiratory Rate: 18 Pulse Ox: 96 Oxygen Delivery Method: Room Air Airway Assessment Mouth opens: >3 cm Mallampati Score: II Neck Range of motion (ROM): Full ROM Focused Labs Anesthesia Preop lab: CBC WBC 7.4 K/mm3 (4.4-11.0) 12/04/24 08:04 12/04/24 RBC 4.11 M/mm3 (4.2-5.4) L 12/04/24 08:04 12/04/24 Hgb 12.2 g/dL (12.0-15.0) 12/04/24 08:04 12/04/24 Hct 37.1 % (37-47) 12/04/24 08:04 12/04/24 Plt Count 182 K/mm3 (150-450) 12/04/24 08:04 12/04/24 CHEMISTRY Potassium 4.5 mmol/L (3.3-5.1) 12/04/24 08:04 12/04/24 Sodium 135 mmol/L (133-145) 12/04/24 08:04 12/04/24 Magnesium 2.2 mg/dL (1.6-2.6) 07/20/24 12:37 07/20/24 BUN 17 mg/dL (4-19) 12/04/24 08:04 12/04/24 Creatinine 0.72 mg/dL (0.70-1.20) 12/04/24 08:04 12/04/24 Glucose 98 mg/dL (70-99) 12/04/24 08:04 12/04/24 TSH 2.500 uIU/mL (0.300-4.200) 10/28/24 14:18 10/28/24 COAG Pre-Assessment Diagnosis/Proposed Procedure Planned Operative Procedure(s): Laproscopic Small Bowl removal Anesthesia History Anesthesia History - pot operator: Anesthesia History - pot operator Hx Hospitalization No 10/21/24 10:11 Any Problems With Anesthesia No 10/21/24 10:11 Cholinesterase deficiency No 10/21/24 10:11 You/Your Family Experience No 10/21/24 10:11 fever (hyperthermia) with Relationship Recent Exposure to Contagious No 11/04/24 06:19 Disease Does patient have nerve No 10/21/24 10:11 stimulator Patient instructed to have device shut off --Does patient have Pacemaker or ICD? When Was Last Pacemaker Check QUESTION #4 FULL TEXT: You/Your Family Experience fever (hyperthermia) with Anesthesia Last Oral Intake Last Oral intake: Last Oral Intake NPO since last night Meds taken in AM with sips of water? Meds patient instructed to take am of surgery Any additional information?: No PONV PONV - pot operator: PONV - pot operator Female HX of Motion Sickness HX of N/V After Surgery Non-Smoker Duration of Surgery greater than 60 minutes Number of Risk Factors PONV Score Any additional information?: No Height & Weight Height & Weight: Anesthesia: Height & Weight Height 5 ft 2 in 12/04/24 07:33 Weight: 65.771 kg 12/04/24 07:33 Body Mass Index (BMI) 26.5 12/04/24 07:33 Respiratory Assessment Respiratory Assessment - pot operator: Respiratory Tract Infection Hx - pot operator Hx Respiratory Tract Infection No 10/21/24 10:11 STOP Sleep Apnea STOP Sleep Apnea - pot operator: STOP Sleep Apnea - pot operator Hx Hypertension No 10/21/24 10:11 Hx Sleep Apnea No 11/04/24 09:35 CPAP BIPAP Do you snore loudly (louder than talking or can be heard Do you often feel tired/ fatigued/ sleepy during daytime? Has anyone observed you stop breathing during sleep? STOP Results QUESTION #5 FULL TEXT : Do you snore loudly (louder than talking or can be heard through closed doors)? 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 Specify any problems Hx of Preganancy in last 3 Months Nurse Filling Out Transfusion & Questions: Date: Time: Patient unable to answer at this time (ie. confused, unrespo /Reproduction History /Reproductive History - pot operator: /Reproductive Hx- pot operator Hx Now Gestational Age (in weeks): EDC: Hx Hx Para Hx Section SAB No 10/21/24 10:11 [facility] Medical History Umbilical hernia Wears glasses Wears partial dentures Wears dentures Depression Cervical stenosis of spine Arthritis Low iron High cholesterol Non-smoker Shortness of breath on exertion History of echocardiogram History of stress test Thyroid disease Heart murmur Home Medications ?Medication ?Instructions ?Recorded ?Last Taken ?Type alendronate 35 mg tablet 35 mg PO QWEEK 09/27/24 11/28/24 History atorvastatin 80 mg tablet 80 mg PO DAILY 09/27/24 12/03/24 History baclofen 10 mg tablet 10 mg PO DAILY 09/27/24 12/03/24 History calcium carbonate 500 mg PO DAILY 09/27/24 12/03/24 History levothyroxine 100 mcg capsule 100 mcg PO DAILY 09/27/24 12/03/24 History dzaikflo-umhjnndr-wtiyb acid 240 1 tab PO DAILY 09/27/24 12/03/24 History mcg-vit K1 150 mcg-herb 357 tablet (Alive Women's 50 Plus Ultra Multivitamin) vitamins A,C,Q-twwj-chlqyz 4,296 1 cap PO BID 09/27/24 12/03/24 History mcg-226 mg-90 mg capsule (PreserVision AREDS) zolpidem 10 mg tablet 10 mg PO QHS 09/27/24 12/03/24 History ketoconazole 2 % shampoo 1 applic topical WESA 12/04/24 12/01/24 History Allergy/AdvReac Type Severity Reaction Status Date / Time No Known Allergies Allergy Verified 12/04/24 07:33 Family History Sister Diabetes Surgical History S/P umbilical hernia repair, follow-up exam History of hysterectomy Previous back surgery Social History Smoking Status: Never smoker alcohol intake: never substance use type: does not use Review of Systems (Anesthesia) ROS Narrative System reviewed and no additional complaints, except as documented. Physical Exam Const oriented x3 Orientation / Consciousness: awake Resp normal respiratory effort and normal air movement Cardio regular rate and regular rhythm
--- NOTE | 2024-12-04 12:45 | COL_PTH ---
PATIENT: RAMONA DONIS LOC: MS3 U#:[id number] AGE/SX: 79/F ROOM: VA317 RE12/04/[address]: Dr. Darrick Light MD : 1945 BED: 1 DIS: 12/07/2024 SPEC #: [id number] RECD: 12/06/24 08:26 STATUS: PEG REMckenzie #: [id number] BIBI: 12/04/24 12:[address]: Darrick Light DEPT: SURGICAL PATHOLOGY RECD BY: Juan Luis Leong ENTERED: 12/06/24 08:26 SP TYPE: COLON OTHR DR: Dr. Austin Cabrera MD Tissues: A - Colon, NOS Procedures: Surgery Specimen Level V HEADER OPERATION: Diagnostic laparoscopy, laparotomy, small bowel resection PRE-OP DIAGNOSIS: Perforated small bowel TISSUE SUBMITTED: A- Small bowel MICROSCOPIC DIAGNOSIS A. Small bowel, perforation, segmental resection: * Focal ulceration with full-thickness transmural defect, necrosis and suppurative inflammation, consistent with perforation. * Viable end resection margins with no specific pathologic change. MICROSCOPIC DESCRIPTION Slides are reviewed. GROSS DESCRIPTION A. Received in formalin in a container labeled with the patient's name, date of , and small bowel is an unoriented segment of small bowel with 2 stapled margins measuring 12.5 cm in length by 3.5 cm in diameter. 5.5 cm from one stapled margin (inked black) and 7.5 cm from the opposing stapled margin (inked green) is a 3.5 cm in length by 3.5 cm in diameter outpouching with shaggy serosa and an abundance of adherent exudate. Situated on the out-pouch is a 0.3 x 0.3 cm transmural defect (inked blue) with surrounding exudate. The specimen is opened to reveal that the out-pouch exhibits disrupted, ramires-brown mucosa with adherent white-ramires possible exudate. The remaining small bowel mucosa is whitt-pink, velvety, with typical transverse folds and a wall thickness up to 0.7 cm. No distinct mass-like lesion is grossly recognized. Horses Or Mules Teamster sections:A1-2. Opposing margins, en faceA3. Full-thickness section with transmural defectA4-5. Mucosa from outpouching and out-pouch to normal mucosa [facility] 12/13/2024 CPT:08661
[2024-12-04] MEDS: Bupiv/Epi 0.25% 30 ML Vial (13:04)
--- NOTE | 2024-12-04 14:34 | OP.PCM_ITS ---
Procedures Digestive 40xxx-49xxx: 97023 Lap enterectomy Operative Report (Standard) Operative Information Date of Procedure: 12/04/24 Pre-Operative Diagnosis: Perforated small bowel Post-Operative Diagnosis: Perforated small bowel diverticulum Surgery/Procedure Performed: Diagnostic laparoscopy with small bowel resection and reanastomosis manager laundry: Yes Paper Machine Backtender: Mora Richard Tasks completed by blood bank assistant: Opening & closing, Trocar and Retracting Type of Anesthesia: General/Supplemental RN Documented Start/Stop Times: Operation Date: 12/04/24 12:45 Case Time Anesthesia Start 12/04/24 12:40 Into Room 12/04/24 12:40 Procedure Start 12/04/24 13:04 Procedure End 12/04/24 14:39 Anesthesia End 12/04/24 14:46 Out of Room 12/04/24 14:46 Into Recovery 12/04/24 14:47 Out of Recovery 12/04/24 15:43 Procedure Start Time: 13:04 Procedure Stop Time: 14:39 Select all DRAINS/GRAFTS/IMPLANTS that apply: Drains Drain details: 15 Luxembourgish round Mauricio Estimated Blood Loss: 20 Specimen collected: Yes Description of specimen(s) removed: Small bowel Description of surgery: Patient arrived from the emergency department and written consents were confirmed. She was brought to the operating room where he was positioned supine on the operating room table. She underwent induction with general endotracheal anesthetic. She had previously been administered Zosyn by emergency medicine. Anesthesia placed an orogastric tube. SCDs placed on bilateral lower extremities were connected. Patient's abdomen was prepped and draped in usual sterile fashion. A formal timeout followed to confirm patient and the procedure. The procedure was begun with a supraumbilical incision carried down to the fascia which was elevated between clamps and sharply incised. I was very careful to only incise the fascia and then the peritoneal layer was likewise elevated and sharply incised with scissors. Finger sweep confirmed peritoneal entry and a 12 mm Chowdary balloon trocar was placed. The abdomen was inspected and revealed no inadvertent injury from our port placement. Abdomen was insufflated to a set pressure of 15 mmHg. Brief inspection of the peritoneum revealed mildly dilated loops of small bowel in the midabdomen but no elvis purulence. To facilitate a more thorough exploration, I made the decision to place 2 additional trocars were placed in the right upper quadrant and left lower quadrant. The patient was then positioned Trendelenburg with the left side down and I began to inspect the peritoneum by first identifying the terminal ileum and running the bowel proximally in a hand over hand fashion until I encountered densely adherent knotting of the distal jejunal segment in the left lower quadrant. Using atraumatic graspers and a suction railroad baggage porter device I bluntly teased a perforated small bowel diverticulum from its position within adjacent small bowel mesentery. This area was fully opened up and explored. No additional areas of concern were identified apart from the small bowel diverticulum. The area was copiously irrigated and suctioned free to minimize contamination spread. A locking grasper was placed on the small bowel mesentery for identification of the small bowel diverticulum. Looking to perform a limited laparotomy incision in a location of my supraumbilical port site I performed a limited tap block with use of local anesthetic by instilling the local just lateral to the linea semilunaris under laparoscopic visualization. A 10 blade scalpel was then used to incise the skin superior to our supraumbilical port for a distance of approximately 5 cm. It was deepened through the abdominal fascia with the use of electrocautery and a medium sized Guillermo wound protector was placed. The small bowel was eviscerated via this opening. Mesenteric defects were created bluntly and the small bowel mesentery was taken around the area of the perforated small bowel diverticulum. Then the small bowel involved by the diverticulum (a segment of approximately 12 cm in length) was divided with serial firings of the 55 mm GRACIE stapler x 2. The specimen was passed off the field labeled small bowel. Then a standard [id number] functional end-to-end small bowel anastomosis was created with a third firing of the GRACIE stapler. The common enterotomy was closed with a firing of a [place] 60 stapler. The resulting staple line was largely hemostatic but was imbricated with a running 3-0 silk suture. Mesenteric defect was closed with a second running 3-0 silk suture. Finally a crotch stitch was placed with a third 3-0 silk suture. The anastomosis small bowel was returned to the peritoneum and the wound protector was removed. All personnel changed outer gloves and returned to closure of the supraumbilical fascial opening with a running #1 PDS suture. The suprafascial layer was irrigated. Then the abdomen was reinsufflated via our remaining two 5 mm ports. A 15 Luxembourgish round Mauricio drain was fed into the peritoneal cavity via our left lower port site. This was affixed to the abdominal wall using a 3-0 nylon suture. Lastly the skin was closed with a running subcuticular technique using 4-0 Monocryl. The two 5 mm port sites in the left lower quadrant were, likewise, closed with the same 4-0 Monocryl suture in a subcuticular technique. OpSite dressings were applied to the port sites while the extraction site medially was dressed with a silver impregnated dressing. Patient's drain tubing was connected to bulb suction. The patient was extubated and taken to PACU for ongoing recovery. Surgical Findings: ? Inflamed 4 cm small bowel diverticulum along the mesenteric side of the small bowel with adherent fibrinous exudate Complications Complications: No Admit VTE Documentation VTE Mechan Device Prophylaxis: SCD's
--- NOTE | 2024-12-04 14:57 | PCM.POST.ANE ---
Anesthesia: Postop Eval I Current Vital Signs Temperature: 38 F Pulse Rate: 78 Blood Pressure: 108/78 Respiratory Rate: 15 Pulse Ox: 100 Oxygen Delivery Method: Room Air Assessment Airway patent: Yes Spontaneous unlabored respirations: Yes Mental status: Awake and Calm nausea: No Vomiting: No Anesthesia Complication: No Fluid Hydration Crystalloid volume administer (ml): 1,250 Total IV fluid infused: 1,250 Progress Note Post-operative progress note: Patient was comfortable and conversant on arrival in pacu Anesthesia document: Postop Eval 1 completed: Yes
--- NOTE | 2024-12-04 14:59 | PCM.POSTANE2 ---
Anesthesia Postop Eval I Sum Postop Eval Completion status Anesthesia document: Postop Eval 1 completed: Yes Anesthesia Postop Eval I Summary Anesthesia Postop Eval I Summary: Anesthesia Postop Eval I: Assessment Summary Airway patent Yes 12/04/24 14:59 Spontaneous unlabored Yes 12/04/24 14:59 respirations Mental status Awake,Calm 12/04/24 14:59 nausea No 12/04/24 14:59 Vomiting No 12/04/24 14:59 Anesthesia Postop Eval I: Fluid Summary Crystalloid volume administer 1,250 12/04/24 14:59 (ml) Colloids volume administered ( ml) Blood Product volume administered (ml) Total IV fluid infused 1,250 12/04/24 14:59 Anesthesia Postop Eval I: Summary Notes Anesthesia Complication No 12/04/24 14:59 Anesthesia Complication Comment: Post-operative progress note Patient was 12/04/24 14:59 comfortable and conversant on arrival in pacu Anesthesia: Postop Eval II Evaluation Mental status: Awake and Calm Pain Level: 4 nausea: No Vomiting: No Progress Note Post-operative progress note: Patient doing well in pacu. No apparent complications Complications Anesthesia Complication: No
[2024-12-04] MEDS: 0.9% Normal Saline (1000mL) 1,000 ML 125 ML IV (15:31)
[2024-12-04] MEDS: Piperacil/Tazobactam 3.375 GM in 0.9% Normal Saline (50mL MB+) 50 ML IV (18:34)
[2024-12-04] MEDS: HYDROmorphone 0.5 MG/0.5 ML SYRINGE IV (21:59)
[2024-12-05] VITALS (8 sets, daily range): BP systolic 81–117; BP diastolic 53–64; PULSE 70–87; RESP 15–16; TEMP 36.3–36.6; O2SAT 94–99
[2024-12-05] MEDS: 0.9% Normal Saline (1000mL) 1,000 ML 125 ML IV ×4 (00:33→22:01)
[2024-12-05] MEDS: HYDROmorphone 0.5 MG/0.5 ML SYRINGE IV ×2 (02:47→06:57)
[2024-12-05] MEDS: Piperacil/Tazobactam 3.375 GM in 0.9% Normal Saline (50mL MB+) 50 ML IV ×3 (06:01→22:03)
[2024-12-05 06:05] LABS: Absolute Lymphocyte Count 0.54 X10^3/uL (0.83-4.51); Absolute Neutrophil Count 8.2 X10^3/uL (2.0-7.7); Basophil# 0.01 X10^3/uL; Basophil% 0.1 % (0-1); Hematocrit 37.1 % (37-47); Hemoglobin 11.6 g/dL (12.0-15.0); Lymphocyte # 0.54 X10^3/ul (0.83-4.51); Lymphocyte % 5.8 % (19-41); Mean Corp Hgb Conc 31.3 g/dL (32-36); Mean Corpuscular Hgb 29.7 pg (27.0-32.0); Mean Corpuscular Volume 94.9 fL (81-99); Mean Platelet Vol. 11.3 fl (6.2-12.0); Monocyte# 0.53 X10^3/uL; Monocyte% 5.7 % (0-10); NRBC Flagged by Analyzer 0 % (0-5); Neutrophil # 8.21 X10^3/uL (2.7-7.7); Neutrophil % 87.8 % (47-70); POSITIVE DIFFERENTIAL YES; Platelet Count 189 K/mm3 (150-450); RBC Distribution Width CV 14.3 % (11.6-14.6); RBC Distribution Width SD 49.2 fl (35.1-43.9); Red Blood Count 3.91 M/mm3 (4.2-5.4); White Blood Count 9.4 K/mm3 (4.4-11.0)
[2024-12-05 07:03] LABS: Magnesium 2.5 mg/dL (1.5-2.2); Phosphorus 3.4 mg/dL (2.7-4.5)
[2024-12-05 07:16] LABS: Anion Gap 14 (5-15); BUN 15 mg/dL (4-19); BUN/Creat Ratio 21.8 RATIO (10-20); Calcium,Total 8.2 mg/dL (7.6-11.0); Carbon Dioxide 15.4 mmol/L (21.0-32.0); Chloride 113 mmol/L (98-108); Creatinine, Serum 0.68 mg/dL (0.70-1.20); EST Glomerular Filtration Rate 90 (>60); Glucose 95 mg/dL (70-99); Potassium 4.5 mmol/L (3.3-5.1); Sodium Level 142 mmol/L (133-145)
--- NOTE | 2024-12-05 08:21 | PN.SURG_ITS ---
Subjective Subjective Patient seen and evaluated during AM rounds. She is found resting in bed. She states that she is feeling better after some breakthrough abdominal pain earlier today in her right mid abdomen. She describes this pain as sharp and precipitated by movement. Objective Data Objective Data Vital Signs: Vital Signs Temp Pulse Resp BP Pulse Ox O2 Del Method O2 Flow Rate 97.6 F L 80 16 81/53 L 94 Room Air 2 12/05/24 08:08 12/05/24 08:08 12/05/24 08:08 12/05/24 08:08 12/05/24 08:08 12/05/24 08:08 12/05/24 05:57 Oxygen Flow Rate (L/min) 2 Oxygen Delivery Method Room Air Weight: 145 lb Body Mass Index (BMI) 26.5 Intake & Output: Intake and Output for Last 24 Hours 12/03/24 12/04/24 12/05/24 23:59 23:59 23:59 Intake Total 650 / 650 1643.75 / 1643.75 Output Total 460 / 530 90 / 90 Balance 190 / 120 1553.75 / 1553.75 Lab / Micro Data 12/05/24 05:31 12/05/24 05:31 Labs: Laboratory Results - last 24 hr 12/04/24 08:04: Sodium 135, Potassium 4.5, Chloride 101, Carbon Dioxide 24.3, Anion Gap 10, BUN 17, Creatinine 0.72, Estim Creat Clear Calc 52.40, Est GFR (MDRD) Non-Af 86, BUN/Creatinine Ratio 23.5 H, Glucose 98, Calcium 9.0, Total Bilirubin 0.59, Direct Bilirubin 0.28, AST 39 H, ALT 32, Alkaline Phosphatase 110 H, Total Protein 6.9, Albumin 3.5, Globulin 3.4, Lipase 31 12/04/24 08:25: Urine Color Yellow, Urine Clarity Sl. Cloudy, Urine pH 6.0, Ur Specific [place] 1.010, Urine Protein 15 H, Urine Glucose (UA) Normal, Urine Ketones 15 H, Urine Occult Blood Negative, Urine Nitrite Negative, Urine Bilirubin Negative, Urine Urobilinogen Normal, Ur Leukocyte Esterase 25 H, Urine RBC 0 SEEN, Urine WBC 0-5 SEEN, Ur Squamous Epith Cells 0-5 SEEN, Urine Bacteria 1+, Urine Mucus RARE 12/05/24 05:31: WBC 9.4, RBC 3.91 L, Hgb 11.6 L, Hct 37.1, MCV 94.9 D, MCH 29.7, MCHC 31.3 L, RDW Std Deviation 49.2 H, RDW Coeff of Zia 14.3, Plt Count 189, MPV 11.3, Immature Gran % (Auto) 0.600, Neut % (Auto) 87.8 H, Lymph % (Auto) 5.8 L, [place] % (Auto) 5.7, Eos % (Auto) 0.0, Baso % (Auto) 0.1, Absolute Neuts (auto) 8.2 H, Absolute Lymphs (auto) 0.54 L, Nucleated RBC % 0, Sodium 142, Potassium 4.5, Chloride 113 H, Carbon Dioxide 15.4 L, Anion Gap 14, BUN 15, Creatinine 0.68 L, Estim Creat Clear Calc 52.40, Est GFR (MDRD) Non-Af 90, B UN/Creatinine Ratio 21.8 H, Glucose 95, Calcium 8.2, Phosphorus 3.4, Magnesium 2.5 H Radiography Diagnostic Testing: Radiology Impression Abdomen/Pelvis CT 12/04/24 09:30 IMPRESSION: 1. Dilation of a central small bowel loop with focal rim enhancing intraperitoneal mass which appears in continuity with the small bowel loop, most compatible with small bowel perforation and abscess. Surgical consultation recommended. 2. Punctate free air along the dependent margin of the caudate lobe, compatible with pneumoperitoneum. 3. Severe distal colonic diverticulosis. Findings were discussed by Dr. Stevens with Dr. Naranjo via telephone at 10:34 a.m. on 12/04/2024. Reading Location: [facility] Physical Exam Const oriented x3 Resp normal respiratory effort GI GI Narrative: Nondistended, operative dressings intact without strikethrough, left lower quadrant drain with serosanguineous output, mild tenderness with palpation about incisions Assessment & Plan Assessment/Plan (1) Perforated small intestine: PLAN: Patient is 79-year-old female who presents with signs and symptoms of small bowel perforation from small bowel diverticulum. She is postoperative 1 from diagnostic laparoscopy with small bowel resection and reanastomosis. Today she complains of some breakthrough discomfort but her abdominal exam is as expected for postoperative day 1 and rather reassuring. Furthermore, her drain output is benign. Lastly, her biochemical evaluation with a.m. laboratories is also reassuring. She had several questions related to the etiology for her perforation but I stated that the rarity of her condition largely precludes an explanation for causation. I also described that we will have to await return of bowel function until we can advance her diet and reinstitute her oral medications. I suggested one of the things that may hasten the return of bowel function is her ambulation postoperatively and encouraged her to be out of bed as much as possible. She confirms understanding and states she will plan to try to walk today. Additional orders include: ? Will begin Toradol every 6 scheduled to try to assist with patient's pain control without risking so much hypotension as patient's blood pressure appears low at baseline. ? AM labs for tomorrow Continue inpatient stay Darrick Light MD General Surgery Endocrine Surgery Pager: [facility] [address] [place] [address], [facility], [address] [place] [address] Office: [phone] (2) Pneumoperitoneum: Charges/Coding Visit Charges Inpatient E&M: 47856 Subs Hosp L2
[2024-12-05] MEDS: Pantoprazole Sodium 40 MG in 0.9% Normal Saline (100mL MB+) 100 ML 330 MG IV (10:25)
[2024-12-05] MEDS: Ketorolac 15 MG/ML Vial IV ×2 (11:20→17:27)
[2024-12-06] MEDS: Ketorolac 15 MG/ML Vial IV ×5 (00:16→23:29)
[2024-12-06 02:00] VITALS: O2SAT 95
[2024-12-06 04:00] VITALS: BP 97/53; PULSE 72; RESP 15; TEMP 36.6; O2SAT 98
[2024-12-06] MEDS: Piperacil/Tazobactam 3.375 GM in 0.9% Normal Saline (50mL MB+) 50 ML IV ×3 (05:12→21:54)
[2024-12-06 06:14] LABS: Absolute Lymphocyte Count 0.67 X10^3/uL (0.83-4.51); Absolute Neutrophil Count 3.8 X10^3/uL (2.0-7.7); Basophil# 0.01 X10^3/uL; Basophil% 0.2 % (0-1); Eosinophil# 0.02 X10^3/uL; Eosinophils% 0.4 % (0-5); Hematocrit 31.1 % (37-47); Hemoglobin 10.1 g/dL (12.0-15.0); Lymphocyte # 0.67 X10^3/ul (0.83-4.51); Lymphocyte % 13.8 % (19-41); Mean Corp Hgb Conc 32.5 g/dL (32-36); Mean Corpuscular Hgb 30.1 pg (27.0-32.0); Mean Corpuscular Volume 92.6 fL (81-99); Mean Platelet Vol. 10.6 fl (6.2-12.0); Monocyte# 0.31 X10^3/uL; Monocyte% 6.4 % (0-10); NRBC Flagged by Analyzer 0 % (0-5); Neutrophil # 3.82 X10^3/uL (2.7-7.7); Neutrophil % 78.8 % (47-70); Platelet Count 185 K/mm3 (150-450); RBC Distribution Width CV 14.4 % (11.6-14.6); Red Blood Count 3.36 M/mm3 (4.2-5.4); White Blood Count 4.9 K/mm3 (4.4-11.0)
[2024-12-06 06:38] LABS: Anion Gap 9 (5-15); BUN 17 mg/dL (4-19); BUN/Creat Ratio 27.1 RATIO (10-20); Carbon Dioxide 18.8 mmol/L (21.0-32.0); Chloride 112 mmol/L (98-108); Creatinine, Serum 0.64 mg/dL (0.70-1.20); EST Glomerular Filtration Rate 91 (>60); Glucose 77 mg/dL (70-99); Magnesium 2.4 mg/dL (1.5-2.2); Phosphorus 1.9 mg/dL (2.7-4.5); Potassium 3.9 mmol/L (3.3-5.1); Sodium Level 140 mmol/L (133-145)
[2024-12-06 07:10] VITALS: O2SAT 94
--- NOTE | 2024-12-06 08:38 | PN.SURG_ITS ---
Subjective Subjective Patient evaluated resting comfortably in bed. She denies any nausea, vomiting, fever. She notes less belching than previous. Patient denies much abdominal pain. She notes sleeping well overnight. She is feeling more hungry. Negative flatus and BM. Objective Data Objective Data Vital Signs: Vital Signs Temp Pulse Resp BP Pulse Ox O2 Del Method O2 Flow Rate 97.8 F 72 15 97/53 L 98 Room Air 2 12/06/24 04:00 12/06/24 04:00 12/06/24 04:00 12/06/24 04:00 12/06/24 04:00 12/06/24 04:00 12/05/24 05:57 Oxygen Flow Rate (L/min) 2 Oxygen Delivery Method Room Air Weight: 145 lb 0.004 oz Body Mass Index (BMI) 26.5 Intake & Output: Intake and Output for Last 24 Hours 12/04/24 12/05/24 12/06/24 23:59 23:59 23:59 Intake Total 650 / 650 3893.33 / 4193.33 1550 / 1550 Output Total 460 / 530 120 / 120 30 / 30 Balance 190 / 120 3773.33 / 4073.33 1520 / 1520 Lab / Micro Data 12/06/24 05:50 12/06/24 05:50 Labs: Laboratory Results - last 24 hr 12/06/24 05:50: WBC 4.9, RBC 3.36 L, Hgb 10.1 L, Hct 31.1 L, MCV 92.6, MCH 30.1, MCHC 32.5, RDW Std Deviation 49.0 H, RDW Coeff of Zia 14.4, Plt Count 185, MPV 10.6, Immature Gran % (Auto) 0.400, Neut % (Auto) 78.8 H, Lymph % (Auto) 13.8 L, [place] % (Auto) 6.4, Eos % (Auto) 0.4, Baso % (Auto) 0.2, Absolute Neuts (auto) 3.8, Absolute Lymphs (auto) 0.67 L, Nucleated RBC % 0, Sodium 140, Potassium 3.9, Chloride 112 H, Carbon Dioxide 18.8 L, Anion Gap 9, BUN 17, Creatinine 0.64 L, Estim Creat Clear Calc 52.40, Est GFR (MDRD) Non-Af 91, BUN/Creatinine Ratio 27.1 H, Glucose 77, Calcium 8.0, Phosphorus 1.9 L, Magnesium 2.4 H Physical Exam GI GI Narrative: Abdomen- soft, nontender. Incisions c/d/i. Silver dressing over top of the midline incision. MATTHEW drain intact. MATTHEW drain stripped. MATTHEW dressing changed. Assessment & Plan Assessment/Plan (1) Abdominal pain, acute: (2) Pneumoperitoneum: (3) Intra-abdominal abscess: (4) Perforated small intestine: PLAN: Plan I am following this patient in conjunction with Dr. Light. He has independently evaluate this patient. Labs reviewed. Phos is decreased. Replaced with Potassium phosphate IV Encourage ambulation and I.S. use Increase diet to full liquids Continue MATTHEW drain We will continue to monitor this patient Charges/Coding Visit Charges Inpatient E&M: 02681 Subs Hosp L1 (post-op)
[2024-12-06 09:21] VITALS: BP 124/64; PULSE 90; RESP 16; TEMP 36.8; O2SAT 95
[2024-12-06] MEDS: Pantoprazole Sodium 40 MG in 0.9% Normal Saline (100mL MB+) 100 ML 330 MG IV (09:24)
[2024-12-06] MEDS: Potassium Phosphate 30 MM in 0.9% Normal Saline (250mL Bag) 250 ML 42 MM IV (10:18)
[2024-12-06] MEDS: 0.9% Normal Saline (1000mL) 1,000 ML 75 ML IV (12:14)
--- NOTE | 2024-12-06 13:37 | CASEMGMT ---
STEVEN MERRILL Assessment Face to Face with patient for initial transition planning/care coordination assessment. STEVEN MERRILL introduced self and role at [facility], pt voices understanding. Pt is A&Ox4 and is resting comfortably in the chair and is calm. Care providers, pharmacy, and demographics verified. Admitting dx: Small Bowel Perforation LACE Strata: 1 PCP: Austin Cabrera Specialists: Denies Preferred Pharmacy: [facility] Insurance: [facility] A/B, [facility] Prescription Benefit: Yes LNOK: Josep Navas (H), Roderick Navas (Son) Living Arrangements: Pt lives with her in a 2 story home with a basement and a FFSU and one step to enter. Pt states that she rents the upstairs out to an RN. ADLs/IADLs: Ind Transportation: Self, . Denies concerns DME: Access to a Cane and FWW but does not use HHC/SNF: Denies History or needs. Pt has been to for OP PT in the past Pt?s goal: Home Plan: Surgery with Dr. Light 12/04. Pt states that she is feeling well now. Pt states that she is passing some flatus but denies a BM. Current 6-Click score is 18. Pt denies PT/OT needs. Pt states that she plans to DC home with the help of her and the RN that she lives with and denies further questions or concerns at this time. Report given to JYOTI HARRIS CM. Jose F Anglin RN, CM
[2024-12-06 14:36] VITALS: BP 108/59; PULSE 73; RESP 16; TEMP 36.7; O2SAT 96
[2024-12-06 20:20] VITALS: BP 91/64; PULSE 64; RESP 16; TEMP 36.6; O2SAT 98
[2024-12-07 02:10] VITALS: BP 102/62; PULSE 66; RESP 16; TEMP 36.6; O2SAT 96
[2024-12-07] MEDS: 0.9% Normal Saline (1000mL) 1,000 ML 75 ML IV (05:05)
[2024-12-07] MEDS: Ketorolac 15 MG/ML Vial IV (05:05)
[2024-12-07] MEDS: Piperacil/Tazobactam 3.375 GM in 0.9% Normal Saline (50mL MB+) 50 ML IV (05:06)
[2024-12-07 07:04] LABS: Absolute Lymphocyte Count 0.77 X10^3/uL (0.83-4.51); Absolute Neutrophil Count 3.3 X10^3/uL (2.0-7.7); Basophil# 0.03 X10^3/uL; Basophil% 0.6 % (0-1); Eosinophil# 0.12 X10^3/uL; Eosinophils% 2.6 % (0-5); Hematocrit 31.8 % (37-47); Hemoglobin 10.4 g/dL (12.0-15.0); Lymphocyte # 0.77 X10^3/ul (0.83-4.51); Lymphocyte % 16.5 % (19-41); Mean Corp Hgb Conc 32.7 g/dL (32-36); Mean Corpuscular Hgb 29.9 pg (27.0-32.0); Mean Corpuscular Volume 91.4 fL (81-99); Mean Platelet Vol. 10.7 fl (6.2-12.0); Monocyte% 8.6 % (0-10); NRBC Flagged by Analyzer 0 % (0-5); Neutrophil % 70.8 % (47-70); Platelet Count 217 K/mm3 (150-450); RBC Distribution Width CV 14.3 % (11.6-14.6); RBC Distribution Width SD 47.8 fl (35.1-43.9); Red Blood Count 3.48 M/mm3 (4.2-5.4); White Blood Count 4.7 K/mm3 (4.4-11.0)
[2024-12-07 07:44] LABS: Anion Gap 9 (5-15); BUN 12 mg/dL (4-19); Calcium,Total 8.1 mg/dL (7.6-11.0); Carbon Dioxide 19.9 mmol/L (21.0-32.0); Chloride 113 mmol/L (98-108); Creatinine, Serum 0.71 mg/dL (0.70-1.20); EST Glomerular Filtration Rate 88 (>60); Glucose 87 mg/dL (70-99); Magnesium 2.1 mg/dL (1.5-2.2); Phosphorus 2.4 mg/dL (2.7-4.5); Potassium 3.8 mmol/L (3.3-5.1); Sodium Level 141 mmol/L (133-145)
[2024-12-07 08:13] VITALS: BP 132/56; PULSE 70; RESP 18; TEMP 36.6; O2SAT 96
--- NOTE | 2024-12-07 08:46 | PN.SURG_ITS ---
Subjective Subjective Patient evaluated resting comfortably in bed. She notes passing flatus and having multiple bowel movements. She denies any nausea, vomiting. She notes minimal amount of abdominal discomfort. She is tolerating a full liquid diet. Objective Data Objective Data Vital Signs: Vital Signs Temp Pulse Resp BP Pulse Ox O2 Del Method O2 Flow Rate 98 F 70 18 132/56 H 96 Room Air 2 12/07/24 08:13 12/07/24 08:13 12/07/24 08:13 12/07/24 08:13 12/07/24 08:13 12/07/24 08:13 12/05/24 05:57 Oxygen Flow Rate (L/min) 2 Oxygen Delivery Method Room Air Weight: 145 lb 0.004 oz Body Mass Index (BMI) 26.5 Intake & Output: Intake and Output for Last 24 Hours 12/05/24 12/06/24 12/07/24 23:59 23:59 23:59 Intake Total 3893.33 / 4193.33 2195 / 2195 1117.08 / 1117.08 Output Total 120 / 120 30 / 50 50 / 50 Balance 3773.33 / 4073.33 2165 / 2145 1067.08 / 1067.08 Lab / Micro Data 12/07/24 06:38 12/07/24 06:38 Labs: Laboratory Results - last 24 hr 12/07/24 06:38: WBC 4.7, RBC 3.48 L, Hgb 10.4 L, Hct 31.8 L, MCV 91.4, MCH 29.9, MCHC 32.7, RDW Std Deviation 47.8 H, RDW Coeff of Iza 14.3, Plt Count 217, MPV 10.7, Immature Gran % (Auto) 0.900, Neut % (Auto) 70.8 H, Lymph % (Auto) 16.5 L, [place] % (Auto) 8.6, Eos % (Auto) 2.6, Baso % (Auto) 0.6, Absolute Neuts (auto) 3.3, Absolute Lymphs (auto) 0.77 L, Nucleated RBC % 0, Sodium 141, Potassium 3.8, Chloride 113 H, Carbon Dioxide 19.9 L, Anion Gap 9, BUN 12, Creatinine 0.71, Estim Creat Clear Calc 52.40, Est GFR (MDRD) Non-Af 88, BUN/Creatinine Ratio 17.0, Glucose 87, Calcium 8.1, Phosphorus 2.4 L, Magnesium 2.1 Physical Exam GI GI Narrative: Abdomen- soft, nontender. Incisions c/d/i. No erythema or infection noted. MATTHEW dressing changes. Serosanguineous fluid noted. Assessment & Plan Assessment/Plan (1) Perforated small intestine: (2) Intra-abdominal abscess: (3) Pneumoperitoneum: (4) Abdominal pain, acute: PLAN: Plan I am following this patient in conjunction with Dr. Light. He has independently evaluated this patient. Labs reviewed. Phosphorous replaced. Remove MATTHEW later today Increased diet to transitional Plan for discharge later today Charges/Coding Visit Charges Inpatient E&M: 20919 Subs Hosp L1 (no charge; post-op)
[2024-12-07] MEDS: Pantoprazole Sodium 40 MG in 0.9% Normal Saline (100mL MB+) 100 ML 330 MG IV (09:04)
[2024-12-07 09:26] VITALS: O2SAT 96
[2024-12-07] MEDS: Potassium Phosphate 15 MM in 0.9% Normal Saline (250mL Bag) 250 ML 125 MM IV (10:40)
[2024-12-07] MEDS: Amox/Clavulanate 875 MG Tablet PO (10:45)
--- NOTE | 2024-12-07 11:00 | PCM.DC.SUM ---
Providers Date of Admission: 12/04/24 Primary Care Physician: Dr. Austin Cabrera MD Reason For Visit: SMALL BOWEL PERFORATION Diagnosis Discharge Diagnosis (1) Perforated small intestine: Status: Acute Code(s): K63.1 - Perforation of intestine (nontraumatic) (2) Intra-abdominal abscess: Status: Acute Code(s): K65.1 - Peritoneal abscess (3) Pneumoperitoneum: Status: Acute Code(s): K66.8 - Other specified disorders of peritoneum (4) Abdominal pain, acute: Status: Acute Code(s): R10.9 - Unspecified abdominal pain Plan I am following this patient in conjunction with Dr. Light. He has independently evaluated this patient. Labs reviewed. Phosphorous replaced. Remove MATTHEW later today Increased diet to transitional Plan for discharge later today Medications at Discharge Home Medications alendronate 35 mg tablet 35 mg PO QWEEK 09/27/24 atorvastatin 80 mg tablet 80 mg PO DAILY 09/27/24 baclofen 10 mg tablet 10 mg PO DAILY 09/27/24 calcium carbonate 500 mg PO DAILY 09/27/24 levothyroxine 100 mcg capsule 100 mcg PO DAILY 09/27/24 ceidcopz-miostcof-nconb acid 240 mcg-vit K1 150 mcg-herb 357 tablet (Alive Women's 50 Plus Ultra Multivitamin) 1 tab PO DAILY 09/27/24 vitamins A,C,B-kiqr-qmngde 4,296 mcg-226 mg-90 mg capsule (PreserVision AREDS) 1 cap PO BID 09/27/24 zolpidem 10 mg tablet 10 mg PO QHS 09/27/24 ketoconazole 2 % shampoo 1 applic topical WESA 12/04/24 amoxicillin 875 mg-potassium clavulanate 125 mg tablet 1 tab PO BID 1 day #2 tabs 12/07/24 Hospital Course Operations - (Diagnostic laparoscopy with small bowel resection and reanastomosis) Summary of Care Provided Minutes Spent on Discharge: 30 Hospital Course: Patient is a 79 y/o F who presented with a 3 day history of periumbilical pain. CT scan of ab/pel demonstrated probable small bowel perforation with several foci of pneumoperitoneum. Dr. Light performed a Diagnostic laparoscopy with small bowel resection and reanastomosis on 12/04/24. Patient tolerated the procedure well. Patient had an uneventful hospitalization. Upon discharge, she was tolerating a transitional diet. She denies nausea, vomiting, fever. She notes very little abdominal pain. She notes positive flatus and BM. Discharged instruction were discussed with the patient. She will follow-up with our office in 2 weeks. Weight / BMI Weight Weight: 145 lb 0.004 oz Body Mass Index (BMI) 26.5 ABG / Lab / Microbiology Data 12/07/24 06:38 12/07/24 06:38 Laboratory: Laboratory Results - last 24 hr 12/07/24 06:38: WBC 4.7, RBC 3.48 L, Hgb 10.4 L, Hct 31.8 L, MCV 91.4, MCH 29.9, MCHC 32.7, RDW Std Deviation 47.8 H, RDW Coeff of Zia 14.3, Plt Count 217, MPV 10.7, Immature Gran % (Auto) 0.900, Neut % (Auto) 70.8 H, Lymph % (Auto) 16.5 L, [place] % (Auto) 8.6, Eos % (Auto) 2.6, Baso % (Auto) 0.6, Absolute Neuts (auto) 3.3, Absolute Lymphs (auto) 0.77 L, Nucleated RBC % 0, Sodium 141, Potassium 3.8, Chloride 113 H, Carbon Dioxide 19.9 L, Anion Gap 9, BUN 12, Creatinine 0.71, Estim Creat Clear Calc 52.40, Est GFR (MDRD) Non-Af 88, BUN/Creatinine Ratio 17.0, Glucose 87, Calcium 8.1, Phosphorus 2.4 L, Magnesium 2.1 D/C Instructions Discharge Diet: - (low fiber diet (recommendations included)) Discharge Activity: May Not Drive (3-5 days) and May Shower (in 48 hours. No tub batheing for 2 weeks) Lifting Restrictions: No lifting greater than 10 pounds for 4 weeks Call your doctor if your incision/area has: Continuous Slow Oozing, Sudden Increased Bleeding, Increased Pain/ Swelling, Increased Redness, Foul Smelling Discharge and Swelling at the incision site Call your doctor if you observe: Fever of 101 or Higher Suture Line Care: Avoid Pulling/Pushing and Avoid Pinching/Bending Change Dressing in: 1 day Cleanse incision/area with: Soap & Water DC O2, CPAP, BIPAP Needs Home O2 Discharge instructions: No DC home with Oxygen: No Please Follow Up With: Darrick Light MD When: Please contact our office to schedule a 2 week follow-up at [phone], option #2 Meaningful Use Info Meaningful Use Meaningful Use Diagnoses (Choose all that apply): None applicable Ischemic Stroke Statin Dosing Therapy Reference: STATIN DOSE THERAPY REFERENCE: * Patients > 75 years receive moderate or high dose statin therapy. * Patients 75 years or YOUNGER should receive HIGH intensity statin dose unless contraindicated. You will be required to document reason for non-treatment if statin daily dose does not meet guidelines. HIGH DOSE STATIN THERAPY DAILY Atorvastatin > than or = to 40 mg Rosuvastatin > than or = to 20 mg Amlodipine + Atorvastatin > than or = to 2.5/40 mg Ezetimibe + Simvastatin 10/80 mg Simvastatin 80mg Discharge Plan Admission Admit Date/Time: 12/04/24 14:29 Primary Reason for Your Visit: Perforated small intestine Attending Provider: Darrick Light Primary Care Provider: Austin Cabrera Instructions Additional Instructions / Restrictions: Recommended diet below: What are low-fiber foods? If your doctor tells you to follow a low-fiber diet, here are low-fiber foods you can eat and higher-fiber foods you should avoid. Remember to always choose foods that you would normally eat. Do not try any foods that caused you discomfort or allergic reactions in the past. If you are on a ?low-residue diet,? your food choices are even more restricted than those listed below. Talk with your cancer care team or dietitian if you have questions about certain foods or amounts. Meat, fish, poultry, and protein Eat: Tender cuts of meat Ground meat Tofu Fish and shellfish Smooth peanut butter Eggs Bake, broil, or poach meats, and use mild seasonings. Try preparing meats as stews, roasts, meatloaves, casseroles, sandwiches, and soups using ingredients on the approved lists. Scramble, poach, or boil eggs; or make omelets, souffl?s, custard, puddings, and casseroles, using ingredients noted below. You might want to ask your doctor, nurse, or dietitian about other foods may be OK for you to eat, and find out when you can go back to your normal diet. Avoid: All beans, nuts, peas, lentils, and legumes Processed meats, hot dogs, sausage, and cold cuts Tough meats with gristle Dairy: Milk and cheese Eat: Only in small to medium amounts and only if they don?t cause problems for you Milk, chocolate milk, buttermilk, and milk drinks Yogurt without seeds or granola Sour cream Cheese Cottage cheese Custard or pudding Ice cream or frozen desserts (without nuts) Cream sauces, soups, and casseroles You can use these items in desserts, snacks, or breads. Bread, cereals, and grains Eat: White breads, waffles, [place] toast, plain white rolls, or white bread toast Pretzels Plain pasta or noodles White rice Crackers, zwieback, monica, and matzoh (no cracked wheat or whole grains) Cereals without whole grains, added fiber, seeds, raisins, or other dried fruit Use white flour for baking and making sauces. Grains, such as white rice, Cream of Wheat, or grits, should be well-cooked. Include the above grains in casseroles, dumplings, souffl?s, cheese strata, kugels, and pudding. Avoid any food that contains: Brown or wild rice Whole grains, cracked grains, or whole wheat products Kasha (buckwheat) Cornbread or cornmeal Deven crackers Bran Wheat germ Nuts Granola Coconut Dried fruit Seeds Vegetables and potatoes Eat: Tender, well-cooked fresh or canned vegetables without seeds, stems, or skins Cooked sweet or white potatoes without skins Strained vegetable juices without pulp or spices You can also eat these with cream sauces, or in soups, souffl?s, kugels, and casseroles. Avoid: All raw or steamed vegetables All types of beans Potatoes with skin Peas [place] Cabbage, broccoli, cauliflower, [place] sprouts, and greens Sauerkraut Onions Fruits and desserts Eat: Soft canned or cooked fruit without seeds or skins (small amounts) Small amounts of well-ripened banana Strained or clear juices Small amounts of soft cantaloupe or honeydew melon Cookies and other desserts without whole grains, dried fruit, berries, nuts, or coconut Sherbet and popsicles Serving suggestions include gelatins, milk shakes, frozen desserts, puddings, tapioca, cakes, and sauces. Avoid: All raw or dried fruits Berries Prune juice, prunes, and raisins Other foods Eat: Mayonnaise and mild salad dressings Margarine, butter, cream, and oils in small amounts Plain gravies Plain bouillon and broth Ketchup and mild mustard Spices, cooked herbs, and salt Sugar, honey, and syrup Clear jellies Hard candy and marshmallows Plain chocolate Avoid: Marmalade Pickles, olives, relish, and horseradish Popcorn Potato chips Liquids Keep in mind that low-fiber foods cause fewer bowel movements and smaller stools. You may need to drink extra fluids to help prevent constipation while you are on a low-fiber diet. Drink plenty of water unless your doctor tells you otherwise, and use juices and milk as noted above. Discharge Orders/Prescriptions Prescriptions: New amoxicillin-pot clavulanate 875-125 mg Tablet 1 tab PO BID 1 Days Qty: 2 0RF Continued levothyroxine 100 mcg capsule 100 mcg PO DAILY atorvastatin 80 mg tablet 80 mg PO DAILY zolpidem 10 mg tablet 10 mg PO QHS baclofen 10 mg tablet 10 mg PO DAILY Patient Comments: PT TAKES MORE THAN ONCE A DAY. PreserVision AREDS 4,296 mcg-226 mg-90 mg capsule 1 cap PO BID calcium carbonate 500 mg calcium (1,250 mg) tablet 500 mg PO DAILY Alive Women's 50 Plus Ultra MV 240-150 mcg tablet 1 tab PO DAILY alendronate 35 mg tablet 35 mg PO QWEEK Rx Instructions: TAKE ON SUNDAYS ketoconazole 2 % shampoo 1 applic topical WESA Referrals / Follow Up: Austin Cabrera MD [Primary Care Provider] - Darrick Light MD [Med Staff - Active Staff] - 12/21/24 Disposition Disposition (needs filled in before D/C Order can be placed): Home, Self Care Charges/Coding Visit Charges Inpatient E&M: 24520 Disch Hosp (post-op; no charge)
[2024-12-07 14:49] VITALS: BP 134/70; PULSE 89; RESP 18; TEMP 36.4; O2SAT 98
--- NOTE | 2024-12-07 15:08 | PHA.DC.MC.R ---
Pharmacy [facility] has performed discharge medication reconciliation and counseling for this patient. The patient's discharge medication list was reviewed for discrepancies and discrepancies were resolved. The patient was counseled on the following discharge medications and changes in medications for homegoing were reviewed. The Reason for Use, instructions for use, and potential side effects were reviewed for all new medications. The patient's questions regarding all of their medications were answered. 1. Augmentin 875/125 mg PO BID x 1 day The patient was able to verbally demonstrate an understanding of their discharge medications. Medications at Discharge Home Medications alendronate 35 mg tablet 35 mg PO QWEEK 09/27/24 atorvastatin 80 mg tablet 80 mg PO DAILY 09/27/24 baclofen 10 mg tablet 10 mg PO DAILY 09/27/24 calcium carbonate 500 mg PO DAILY 09/27/24 levothyroxine 100 mcg capsule 100 mcg PO DAILY 09/27/24 woktgseh-whqfpcmb-gfbpj acid 240 mcg-vit K1 150 mcg-herb 357 tablet (Alive Women's 50 Plus Ultra Multivitamin) 1 tab PO DAILY 09/27/24 vitamins A,C,B-gweh-mncquv 4,296 mcg-226 mg-90 mg capsule (PreserVision AREDS) 1 cap PO BID 09/27/24 zolpidem 10 mg tablet 10 mg PO QHS 09/27/24 ketoconazole 2 % shampoo 1 applic topical WESA 12/04/24 amoxicillin 875 mg-potassium clavulanate 125 mg tablet 1 tab PO BID 1 day #2 tabs 12/07/24
== END 2024-12-07 15:05 | disposition home or self-care (01) | DRG 329 ==
LOC: ED 11:47 → SDC 12:23 → ACINP 12:24 → SDC 14:52 → MS3 14:52
PROVIDERS: Physician Assistant; Admitting Provider Surgery; Emergency Provider Emergency Medicine; PCP Family Medicine; Visit Provider Surgery
PROC: 0DT84ZZ Resection of Small Intestine, Percutaneous Endoscopic Approach (ICD-10-PCS; CPT 49320; principal; 2024-12-04 12:30)
DX: K57.40 Diverticulitis of both small and large intestine with perforation and abscess without bleeding (principal); K65.1 Peritoneal abscess; E78.00 Pure hypercholesterolemia, unspecified; K57.10 Diverticulosis of small intestine without perforation or abscess without bleeding; K42.9 Umbilical hernia without obstruction or gangrene; Z79.890 Hormone replacement therapy; Z90.710 Acquired absence of both cervix and uterus; Z79.899 Other long term (current) drug therapy; Z79.02 Long term (current) use of antithrombotics/antiplatelets
CPT/HCPCS: 36415; 74177; 80048; 83735; 84100; 85025; 88307; 94668; 99284; Q9967; A4216; J2405

== ENCOUNTER 2025-01-28 22:00 | Inpatient (IN) | payer MEDICARE, OTHER, SELFPAY ==
[2025-01-28 22:00] VITALS: BP 115/73; PULSE 85; RESP 16; TEMP 37; O2SAT 99
[2025-01-28 22:02] VITALS: BP 115/73; PULSE 85; RESP 16; TEMP 37; O2SAT 99
--- NOTE | 2025-01-28 22:52 | ED.VIS.GI ---
HPI HPI - GI History of Present Illness Chief Complaint: Abd Pain Informant: patient and spouse/S.O. Narrative Narrative: 79-year-old female presenting with severe abdominal pain tonight that is much improved now. She states it was severe for maybe 30 minutes. Has been coming and going for less than a week, not as bad as it was tonight. She states the episodes have been periumbilical/epigastric, sharp, and for the most part tenderness or less. Nausea but no vomiting. Normal bowel movements. No blood. Normal urination. Does not radiate into her back or into her chest and she has no shortness of breath or recent cough, no fevers or chills. She had surgery about 2 months ago for a bowel perforation. She agrees this pain is different than that was, that was not intermittent and this is. Prior to that she had a herniorrhaphy about a month prior, but no other abdominal surgeries. No history of gallstones that she knows of. No definite association with meals here recently. [facility] Medical History Umbilical hernia Wears glasses Wears partial dentures Wears dentures Depression Cervical stenosis of spine Arthritis Low iron High cholesterol Non-smoker Shortness of breath on exertion History of echocardiogram History of stress test Thyroid disease Heart murmur Home Medications ?Medication ?Instructions ?Recorded ?Last Taken ?Type alendronate 35 mg tablet 35 mg PO QWEEK 09/27/24 11/28/24 History atorvastatin 80 mg tablet 80 mg PO DAILY 09/27/24 12/03/24 History baclofen 10 mg tablet 10 mg PO DAILY 09/27/24 12/03/24 History calcium carbonate 500 mg PO DAILY 09/27/24 12/03/24 History levothyroxine 100 mcg capsule 100 mcg PO DAILY 09/27/24 12/03/24 History vlwymort-dqnjbhuj-xltrp acid 240 1 tab PO DAILY 09/27/24 12/03/24 History mcg-vit K1 150 mcg-herb 357 tablet (Alive Women's 50 Plus Ultra Multivitamin) vitamins A,C,V-kjuw-nlfley 4,296 1 cap PO BID 09/27/24 12/03/24 History mcg-226 mg-90 mg capsule (PreserVision AREDS) zolpidem 10 mg tablet 10 mg PO QHS 09/27/24 12/03/24 History ketoconazole 2 % shampoo 1 applic topical WESA 12/04/24 12/01/24 History Allergy/AdvReac Type Severity Reaction Status Date / Time No Known Allergies Allergy Verified 12/20/24 10:02 Family History Sister Diabetes Surgical History S/P small bowel resection S/P umbilical hernia repair, follow-up exam History of hysterectomy Previous back surgery Social History Smoking Status: Never smoker alcohol intake: never substance use type: does not use ROS ROS ED Constitutional Constitutional ED: Denies chills or fever(s) Eyes Eyes: Denies change in vision or diplopia ENT ENT ED: Denies rhinorrhea or sore throat Cardiovascular Cardiovascular: Denies chest pain or palpitations Respiratory/Chest Respiratory/Chest: Denies cough or dyspnea Gastrointestinal Gastrointestinal: Reports abdominal pain and nausea; Denies diarrhea or vomiting Genitourinary Genitourinary ED: Denies dysuria or hematuria Musculoskeletal Musculoskeletal: Denies back pain or neck pain Integumentary Denies abscess or rash Neurologic Neurologic: Denies headache(s), paresthesias or weakness Psychiatric Psychiatric: Denies anxiety or suicidal thoughts EXAM Physical Exam Const Vital Signs: 01/28/25 22:00 01/28/25 22:02 01/28/25 23:00 Temperature 98.6 F 98.6 F Temperature Source Oral Oral Pulse Rate 85 85 Respiratory Rate 16 16 Blood Pressure 115/73 115/73 100/61 Blood Pressure Mean 87 87 74 Pulse Ox 99 99 Oxygen Delivery Method Room Air Room Air 01/28/25 23:02 01/29/25 00:00 01/29/25 00:00 Temperature 98.2 F 98.2 F Temperature Source Oral Oral Pulse Rate 81 80 Respiratory Rate 16 18 Blood Pressure 100/61 92/52 L 92/52 L Blood Pressure Mean 74 65 65 Pulse Ox 100 99 Oxygen Delivery Method Room Air Room Air 01/29/25 01:00 01/29/25 01:00 01/29/25 02:00 Temperature 98.2 F Temperature Source Oral Pulse Rate 84 89 89 Respiratory Rate 16 18 16 Blood Pressure 114/58 L 134/80 H 134/80 H Blood Pressure Mean 76 98 98 Pulse Ox 97 100 100 Oxygen Delivery Method Room Air Room Air Room Air Positive well nourished and well developed General Appearance ED: well developed and NAD HEENT Reports moist mucous membranes normocephalic and atraumatic Eyes PERRL and EOMs intact bilaterally Neck full ROM and supple Resp normal respiratory effort and clear to auscultation bilaterally Cardio regular rate, regular rhythm and no murmurs GI non-distended GI Narrative: Multiple areas of tenderness worse in the epigastrium. Less tender periumbilical, right upper quadrant, left upper quadrant. No guarding or rebound tenderness. Abdomen soft. Auscultation: normoactive bowel sounds Palpation: soft Back/Spine no CVA tenderness General Back: other FROM Extremity normal to inspection General Extremety ED: Negative for edema, pulses abnormal or tenderness General Extremity: Negative for edema or pulses abnormal Neuro oriented x3, CN's II-XII intact bilaterally and no sensory deficits noted Sensorium / Orientation: awake and alert Motor Exam: strength 5/5 throughout Psych mental status grossly normal and thought process normal Skin no rashes or lesions noted and no wounds MDM MDM MDM Narrative Medical decision making narrative: Patient ischial he declined analgesics but then was accepting of them, so in addition to Zofran she was given morphine. She took an oxycodone few hours ago prior to this. She felt better after that no vomiting, labs and CT reviewed, I agree with the CT report, consistent with small bowel obstruction. Her last bowel movement was this morning, maybe 16-20 hours ago. She states they were getting smaller and harder. Discussed with Dr. Light with surgery who knows the patient, will admit and requests an NG be placed in the ED, which was done by nursing. I reviewed the KUB, shows good placement on my interpretation, 4 views. 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 Labs: Laboratory Results - last 24 hr 01/28/25 23:02 WBC 7.0 RBC 4.19 L Hgb 12.2 Hct 37.8 MCV 90.2 MCH 29.1 MCHC 32.3 RDW Std Deviation 46.2 H RDW Coeff of Zia 14.0 Plt Count 180 MPV 11.0 Immature Gran % (Auto) 0.300 Neut % (Auto) 72.8 H Lymph % (Auto) 17.9 L [place] % (Auto) 7.7 Eos % (Auto) 1.0 Baso % (Auto) 0.3 Absolute Neuts (auto) 5.1 Absolute Lymphs (auto) 1.26 Nucleated RBC % 0 Sodium 142 Potassium 4.0 Chloride 106 Carbon Dioxide 25.1 Anion Gap 12 BUN 15 Creatinine 0.71 Estim Creat Clear Calc 52.53 Est GFR (MDRD) Non-Af 88 BUN/Creatinine Ratio 20.7 H Glucose 115 H Lactic Acid 1.1 Calcium 9.4 Total Bilirubin 0.39 AST 36 H ALT 32 Alkaline Phosphatase 102 Total Protein 6.9 Albumin 4.0 Globulin 2.9 Albumin/Globulin Ratio 1.4 Lipase 35 Radiography Diagnostic Testing: Clinical Impression(s) from Imaging Studies Abdomen/Pelvis CT 01/28/25 23:24 IMPRESSION: Small-bowel obstruction with a transition point in the right lower quadrant concerning for adhesions. Trace pelvic ascites. Reading Location: [facility] Management Discussion w/another healthcare provider: Batting Machine Operator (Michelle Light) Discharge Plan Dx/Rx/DC Orders Clinical Impression: Complete obstruction of small intestine Disposition Disposition: Acute Care [facility]
[2025-01-28 23:00] VITALS: BP 100/61
[2025-01-28 23:02] VITALS: BP 100/61; PULSE 81; RESP 16; TEMP 36.8; O2SAT 100
[2025-01-28] MEDS: Ondansetron 4 MG/2 ML Vial IV (23:02)
[2025-01-28] MEDS: 0.9% Normal Saline (1000mL) 1,000 ML 125 ML IV (23:02)
[2025-01-28] MEDS: Morphine 4 MG/ML Syringe IV (23:02)
--- OUTSIDE RECORDS SUMMARY | 2025-01-28 23:11 | XMS RPT_ITS | CCD ---
Author Organization [facility] Care Team Providers Care Records Analysis Manager Name Role Phone JUANITA COATS Unavailable Unavailabl PABLO Craig (PA) Unavailable Unavailable Dr. Mann Cabrera Primary Care Provider Dr. Jitendra Cabrera Attending Provider Deborah ORDAZ, Dr. Avila Primary Care Provider Dr. Sowmya Cabrera MD Attending Provider [phone] Deborah ORDAZ, Dr. Avila Referring Provider Lex Rhoades MD Attending Provider Dr. Shelly Leonard MD Attending Provider Dr. Shelly Leonard MD Referring Provider [phone] Dr. Shlely Leonard MD Other Provider Dr. Sowmya Cabrera MD Primary Care Provider Dr. Sowmya Cabrera MD Referring Provider [phone] Dr. Sowmya Cabrera MD Attending Provider Dr. Pardeep Naranjo DO Emergency Provider Dr. Darrick Light MD Attending Provider Dr. Darrick Light MD Admit Provider Dr. Darrick Light MD Other Provider [phone] Eleonora Montaño PA-C Attending Provider Dr. Sowmya Cabrera MD Primary Care Provider Sowmya Cabrera Primary Care Unavailable Darrick Light Admitting Unavailable Darrick Light Attending Unavailable Sowmya Cabrera Referring Unavailable Sowmya Cabrera Attending Unavailable Deborah, Sowmya Primary Care Unavailable Darrick Light Admitting Unavailable [place] Unavailable Eleonora Benedict Attending Unavailable Darrick Light Consulting Unavailable Darrick Light Attending Unavailable Sowmya Cabrera Referring Unavailable Darrick Light Attending Unavailable [facility], [facility] Unavailable Sowmya Cabrera Referring Unavailable Robotham, Shelly Attending Unavailable [facility], [facility] Unavailable Deborah, Sowmya Referring Unavailable Robotham, Shelly Attending Unavailable [facility], [facility] Unavailable Jeronimo Anne Attending Unavailable Deborah, [facility] Unavailable Robotham, Shelly Referring Unavailable Robotham, Shelly Attending Unavailable Robotham, Shelly Consulting Unavailable [place], [facility] Unavailable [place], [facility] Unavailable Darrick Light Attending Unavailable Deborah, [facility] Unavailable Lex Rhoades Referring Unavailable Lex Rhoades Attending Unavailable Sowmya Cabrera Referring Unavailable Sowmya Cabrera Attending Unavailable Deborah, [facility] Unavailable Deborah, Sowmya Referring Unavailable Deborah, Sowmya Attending Unavailable [facility], [facility] Unavailable [facility], [facility] Unavailable Lex Rhoades Attending Unavailable Sowmya Cabrera Referring Unavailable Sowmya Cabrera Attending Unavailable [place], [facility] Unavailable Robotham, Shelly Referring Unavailable Robotham, Shelly Attending Unavailable [place], [facility] Unavailable Medications Current Medications Medication Drug Class(es) Dates Sig (Normalized) Sig (Original) alendronic acid 35 mg oral tablet (4 sources) Bisphosphonate Start: 09-27-2024 take 1 tablet by mouth every week Alendronate 35 mg tablet Active 35 mg PO EVERY WEEK September 27, 2024 1:00am TAKE ON SUNDAYS atorvastatin 80 mg oral tablet (4 sources) HMG-CoA Reductase Inhibitor Start: 09-27-2024 take 1 tablet by mouth once daily Atorvastatin 80 mg tablet Active 80 mg PO DAILY September 27, 2024 1:00am baclofen 10 mg oral tablet (4 sources) gamma-Aminobutyric Acid-ergic Agonist Start: 09-27-2024 take 1 tablet by mouth once daily Baclofen 10 mg tablet Active 10 mg PO DAILY September 27, 2024 1:00am calcium carbonate 1250 mg oral tablet (4 sources) Start: 09-27-2024 take 1 tablet by mouth once daily Calcium Carbonate 500 mg calcium (1,250 mg) tablet Active 500 mg PO DAILY September 27, 2024 1:00am ketoconazole 20 mg/ml medicated shampoo (3 sources) Azole Antifungal Start: 12-04-2024 Ketoconazole 2 % shampoo Active 1 NMA TOPICAL WESA December 04, 2024 12:00am levothyroxine sodium 0.1 mg oral capsule (4 sources) l-Thyroxine Start: 09-27-2024 take 1 capsule by mouth once daily Levothyroxine 100 mcg capsule Active 100 ug PO DAILY September 27, 2024 1:00am Mv-Mn-Folic Cnyr-M4-Ehkk 357 (Alive Women's 50 Plus Ultra Mv) 240-150 mcg tablet (4 sources) Start: 09-27-2024 Mv-Mn-Folic Hqhi-H6-Hsck 357 (Alive Women's 50 Plus Ultra Mv) 240-150 mcg tablet Active 1 {tbl} PO DAILY September 27, 2024 1:00am Vitamins A,C,A-Bngd-Qnrlda (Preservision Areds) 4,296 mcg-226 mg-90 mg capsule (4 sources) Start: 09-27-2024 Vitamins A,C,O-Mkpi-Rclmvi (Preservision Areds) 4,296 mcg-226 mg-90 mg capsule Active 1 NMA PO TWICE A DAY September 27, 2024 1:00am zolpidem tartrate 10 mg oral tablet (4 sources) gamma-Aminobutyric Acid-ergic Agonist Start: 09-27-2024 take 1 tablet by mouth at bedtime Zolpidem 10 mg tablet Active 10 mg PO AT BEDTIME September 27, 2024 1:00am Completed/Discontinued Medications Medication Drug Class(es) Dates Sig (Normalized) Sig (Original) amoxicillin 875 mg / clavulanate 125 mg oral tablet (2 sources) Penicillin-class Antibacterial Start: 12-07-2024 End: 12-20-2024 Amoxicillin-Pot Clavulanate 875-125 mg Tablet Discontinued 1 {tbl} PO TWICE A DAY 2 December 07, 2024 12:00am December 20, 2024 10:02am oxyCODONE hydrochloride 5 mg oral capsule (4 sources) Opioid Agonist Start: 11-04-2024 End: 11-19-2024 take 1 capsule by mouth every six hours as needed for pain Oxycodone 5 mg capsule Discontinued 5 mg PO EVERY 6 HOURS as needed for pain 10 3 November 04, 2024 November 19, 2024 10:13am valACYclovir 1000 mg oral tablet (4 sources) Herpesvirus Nucleoside Analog DNA Polymerase Inhibitor, Herpes Simplex Virus Nucleoside Analog DNA Polymerase Inhibitor, Herpes Zoster Virus Nucleoside Analog DNA Polymerase Inhibitor Start: 09-27-2024 End: 10-21-2024 Valacyclovir 1 gram tablet Discontinued 1000 mg PO THREE TIMES A DAY September 27, 2024 1:00am October 21, 2024 11:08am Problems Active Problems Problem Classification Problem Date Documented Da te Episodic/Chronic Abdominal hernia (14 sources) Umbilical hernia; Translations: [Umbilical hernia without obstruction or gangrene] Onset: 11-16-2024 09-27-2024 Episodic Abdominal pain (8 sources) Acute abdominal pain; Translations: [Unspecified abdominal pain] Onset: 12-16-2024 12-04-2024 Episodic Other aftercare (6 sources) History of repair of umbilical hernia; Translations: [Encounter for follow-up examination after completed treatment for conditions other than malignant neoplasm] 11-19-2024 Episodic Other gastrointestinal disorders (6 sources) Perforation of small intestine ; Translations: [Perforation of intestine (nontraumatic)] 12-04-2024 Episodic Other gastrointestinal disorders (6 sources) Pneumoperitoneum; Translations: [Other specified disorders of peritoneum] 12-04-2024 Episodic Other gastrointestinal disorders (1 source) Perforation of intestine (nontraumatic); Translations: [Perforation of intestine (nontraumatic)] Onset: 12-17-2024 Episodic Other gastrointestinal disorders (1 source) Other specified disorders of peritoneum; Translations: [Other specified disorders of peritoneum] Onset: 12-17-2024 Episodic Other nervous system disorders (1 source) Paresthesia of skin; Translations: [Paresthesia of skin] Onset: 10-20-2024 Episodic Peritonitis and intestinal abscess (7 sources) Abdominal abscess; Translations: [Peritoneal abscess] Onset: 12-16-2024 12-04-2024 Episodic Residual codes; unclassified (2 sources) History of excision of small intestine; Translations: [Acquired absence of other specified parts of digestive tract] 12-20-2024 Episodic Comment on above: Patient is 79-year-o ld female status post diagnostic laparoscopy with small bowel resection and reanastomosis for perforated small bowel diverticulum. She has done well in her recovery and has regular bowel function. She also is well-healing on exam. At this time I instructed her to apply triple antibiotic ointment to her incisions once nightly for a week but otherwise it is free to leave them uncovered so long as they are not being rubbed by her pant line. Additionally I have asked her to continue to adhere to some activity restrictions for a full 4 weeks postop. At this point, however, I do believe she is suitable for transitioning to an unrestricted diet. We discussed Mrs. Donis's pathology which simply showed a transmural necrosis and ulceration of the small bowel. She and her have additional questions as to the etiology for this perforation but I simply stated that they would be answered with conjecture on my part at this point. Past or Other Problems Problem Classification Problem Date Documented Da te Episodic/Chronic Other lower respiratory disease (1 source) Cough; Translations: [Cough] Onset: 08-30-2017 Episodic Other non-traumatic joint disorders (1 source) Pain in unspecified shoulder; Translations: [Pain in unspecified shoulder] Onset: 08-03-2024 Episodic Other non-traumatic joint disorders (1 source) Pain in left shoulder; Translations: [Pain in left shoulder] Onset: 04-30-2024 Episodic Other screening for suspected conditions (not mental disorders or infectious disease) (1 source) Encounter for screening mammogram for malignant neoplasm of breast; Translations: [Encounter for screening mammogram for malignant neoplasm of breast] Onset: 02-23-2024 Episodic Results Test Name Value Interpretation Reference Range Facility Surgery Visit Reporton 12-20 Surgery Visit Report [facility] [address] [place] [address] OFFICE VISIT Date of Service: 12/20/24 MR#: [id number] Acct: [id number] Name: GERMANIA DONIS Rep #: [id number] : 1945 Provider: Dr. Darrick kendrick MD Age/Sex: 79/F Location: [facility] Status: Signed Intake Vital Signs 12/05/24 11:12 12/20/24 10:01 Height 5 ft 2 in Weight: 136 lb 4 oz Intake Visit Reasons: small bowel resection DOS 12/04 Chief Complaint: small bowel resection DOS 12/04 Is patient in pain?: No Allergies No Known Allergies Allergy (Verified 12/20/24 10:02) Medications ???Medication ???Instructions ???Recorded ???Confirmed ???Type alendronate 35 mg tablet 35 mg PO QWEEK 09/27/24 12/20/24 H istory atorvastatin 80 mg tablet 80 mg PO DAILY 09/27/24 12/20/24 H istory baclofen 10 mg tablet 10 mg PO DAILY 09/27/24 12/20/24 H istory calcium carbonate 500 mg PO DAILY 09/27/24 12/20/24 History levothyroxine 100 mcg capsule 100 mcg PO DAILY 09/27/24 12/20/24 History nmihkvib-wzrueqpc-pffq c acid 240 1 tab PO DAILY 09/27/24 12/20/24 H istory mcg-vit K1 150 mcg-herb 357 tablet (Alive Women's 50 Plus Ultra Multivitamin) vitamins A,C,X-agfy-frzyzn 4,296 1 cap PO BID 09/27/24 12/20/24 His tory mcg-226 mg-90 mg capsule (PreserVision AREDS) zolpidem 10 mg tablet 10 mg PO QHS 09/27/24 12/20/24 His tory ketoconazole 2 % shampoo 1 applic topical WESA 12/04/24 History Have you fallen in the past year?: No Subjective Details: Patient presents following small bowel resection with reanastomosis on 12/06/2024 secondary to presentation with small bowel perforation and free air. Since hospital discharge they have been doing well. They report minimal postoperative pain and they describe any pain that they do have as being moving. With the migratory nature of the pain the question whether may represent gas pains. Additionally remark of some increased belching since his surgery. They have no wound concerns. They report tolerance of a diet and general compliance with request for maintaining a transitional level diet. Concerning their bowel movements, they report that these have been regular. Objective Details: Mild ecchymotic changes lateral to patient's right upper quadrant port site and about her umbilical extraction site where her Steri-Strips remain intact. With the Steri-Strips removed the skin edges are well opposed and there is no redness or underlying fluctuance. Abdomen is nondistended, soft, nontender to palpation. Lastly in the left lower quadrant patient's drain site port site is now well sealed and a nylon suture persists Coding Level of Care Code Global Post Op Diagnoses S/P small bowel resection Z90.49 [facility] Medical History (Updated 12/15/24 @ 00:00 by Maddi Booth) Umbilical hernia Wears glasses Wears partial dentures Wears dentures Depression Cervical stenosis of spine Arthritis Low iron High cholesterol Non-smoker Shortness of breath on exertion History of echocardiogram History of stress test Thyroid disease Heart murmur Surgical History (Updated 12/20/24 @ 13:[address] Darrick Light MD) S/P small bowel resection S/P umbilical hernia repair, follow-up exam History of hysterectomy Previous back surgery Family History Sister Diabetes Social History Smoking Status: Never smoker alcohol intake: never substance use type: does not use Assessment and Plan (No Qualifiers) Assessment and Plan (1) S/P small bowel resection: Status: Acute Comment: Patient is 79-year-old female status post diagnostic laparoscopy with small bowel resection and reanastomosis for perforated small bowel diverticulum. She has done well in her recovery and has r egular bowel function. She also is well-healing on exam. At this time I instructed her to apply triple antibiotic ointment to her incisions once nightly for a week but otherwise it is free to leave them uncovered so long as they are not being rubbed by her pant line. Additionally I have asked her to continue to adhere to some activity restrictions for a full 4 weeks postop. At this point, however, I do believe she is suitable for transitioning to an unrestricted diet. We discussed Mrs. Donis's pathology which simply showed a transmural necrosis and ulceration of the small bowel. She and her have additional questions as to the etiology for this perforation but I simply stated that they would be answered with conjecture on my part at this point. Plan: ??? Wound care as above ??? Activity restrictions as above ???No formal clinic follow-up is required, but patient is invited to call or arrange f (more content not included)... Normal [facility] Absolute lymphocyte countOrd ered By: Eleonora Montaño on 12-07-2024 Lymphocytes Auto (Unsp spec) [#/Vol] 0.77 10*3/uL Low 0.83-4.51 [facility] Absolute neutrophil countOrd ered By: Eleonora Montaño on 12-07-2024 Neutrophils (Bld) [#/Vol] 3.3 10*3/uL 2.0-7.7 [facility] Anion gap in Serum or Plasma Ordered By: Eleonora Montaño on 12-07-2024 Anion gap [Moles/Vol] 9 mmol/L 01-06 [facility] Automated lymphocyte count a s percentage of total leukocytesOrdered By: Eleonora Montaño on 12-07-2024 Lymphocytes/100 WBC Auto (Unsp spec) 16.5 % Low 19-41 [facility] BUN/creatinine ratioOrdered By: Eleonora Montaño on 12-07-2024 Urea nitrogen/Creatinine [Mass ratio] 17.0 mg/mg - [facility] Basic Metabolic Profile (BMP )on 12-07-2024 BUN/CRE 17.0 RATIO Normal - [facility] Comment on above: Performed By: #### L 500.2500, L501.5200, L100.0100, L501.2300 ####[facility] [address] [place], [address] Calcium [Mass/Vol] 8.1 mg/dL Normal 7.6-11.0 [facility] Comment on above: Performed By: #### L 500.2500, L501.5200, L100.0100, L501.2300 ####[facility] [address] [place], [address] Chloride [Moles/Vol] 113 mmol/L High 98-108 [facility] Comment on above: Performed By: #### L 500.2500, L501.5200, L100.0100, L501.2300 ####[facility] [address] [place], [address] CO2 [Moles/Vol] 19.9 mmol/L Low 21.0-32.0 [facility] Comment on above: Performed By: #### L 500.2500, L501.5200, L100.0100, L501.2300 ####[facility] [address] [place], [address] Creatinine [Mass/Vol] 0.71 mg/dL Normal 0.70-1.20 [facility] Comment on above: Performed By: #### L 500.2500, L501.5200, L100.0100, L501.2300 ####[facility] [address] [place], [address] ECRCL 52.40 ml/min Normal 50-250 [facility] Comment on above: Performed By: #### L 500.2500, L501.5200, L100.0100, L501.2300 ####[facility] [address] [place], [address] GAP 9 Normal 5-15 [facility] Comment on above: Performed By: #### L 500.2500, L501.5200, L100.0100, L501.2300 ####[facility] [address] [place], [address] GFR/1.73 sq M.predicted among non-blacks MDRD (S/P/Bld) [Vol rate/Area] 88 mL/min/{1.73_m2} Normal >60 [facility] Comment on above: Result Comment: mL/m in/1.73m2 CKD-EPI Creatinine Equation (2020) Performed By: #### L 500.2500, L501.5200, L100.0100, L501.2300 ####[facility] [address] [place], [address] Glucose [Mass/Vol] 87 mg/dL Normal 70-99 [facility] Comment on above: Performed By: #### L 500.2500, L501.5200, L100.0100, L501.2300 ####[facility] [address] [place], [address] Potassium [Moles/Vol] 3.8 mmol/L Normal 3.3-5.1 [facility] Comment on above: Performed By: #### L 500.2500, L501.5200, L100.0100, L501.2300 ####[facility] [address] [place], [address] Sodium [Moles/Vol] 141 mmol/L Normal 133-145 [facility] Comment on above: Performed By: #### L 500.2500, L501.5200, L100.0100, L501.2300 ####[facility] [address] [place], [address] Urea nitrogen [Mass/Vol] 12 mg/dL Normal 4-19 [facility] Comment on above: Performed By: #### L 500.2500, L501.5200, L100.0100, L501.2300 ####[facility] [address] [place], [address] Basophil percentageOrdered B y: Eleonora Montaño on 12-07-2024 Basophils/100 WBC (Bld) 0.6 % 0-1 [facility] CBC W/Diff, Automatedon 11-23 Absolute Lymph 0.77 X10 3/uL Low 0.83-4.51 [facility] Comment on above: Performed By: #### L 500.2500, L501.5200, L100.0100, L501.2300 ####[facility] [address] [place], [address] Absolute Neut 3.3 X10 3/uL Normal 2.0-7.7 [facility] Comment on above: Performed By: #### L 500.2500, L501.5200, L100.0100, L501.2300 ####[facility] [address] [place], [address] Basophils/100 WBC (Bld) 0.6 % Normal 0-1 [facility] Comment on above: Performed By: #### L 500.2500, L501.5200, L100.0100, L501.2300 ####[facility] [address] [place], [address] Eosinophils/100 WBC (Bld) 2.6 % Normal 0-5 [facility] Comment on above: Performed By: #### L 500.2500, L501.5200, L100.0100, L501.2300 ####[facility] [address] [place], [address] Erythrocyte distribution width (RBC) [Ratio] 14.3 % Normal 11.6-14.6 [facility] Comment on above: Performed By: #### L 500.2500, L501.5200, L100.0100, L501.2300 ####[facility] [address] [place], [address] Hematocrit (Bld) [Volume fraction] 31.8 % Low 37-47 [facility] Comment on above: Performed By: #### L 500.2500, L501.5200, L100.0100, L501.2300 ####[facility] [address] [place], [address] Hemoglobin (Bld) [Mass/Vol] 10.4 g/dL Low 12.0-15.0 [facility] Comment on above: Performed By: #### L 500.2500, L501.5200, L100.0100, L501.2300 ####[facility] [address] [place], [address] IG% 0.900 Normal 0.0-0.9 [facility] Comment on above: Result Comment: IG% - Immature Granulocytes (promyelocytes, myelocytes and metamyelocytes) > 1% indicates that a LEFT SHIFT is Present. Performed By: #### L 500.2500, L501.5200, L100.0100, L501.2300 ####[facility] [address] [place], [address] Lymphocytes/100 WBC (Bld) 16.5 % Low 19-41 [facility] Comment on above: Performed By: #### L 500.2500, L501.5200, L100.0100, L501.2300 ####[facility] [address] [place], [address] MCH (RBC) [Entitic mass] 29.9 pg Normal 27.0-32.0 [facility] Comment on above: Performed By: #### L 500.2500, L501.5200, L100.0100, L501.2300 ####[facility] [address] [place], [address] MCHC (RBC) [Mass/Vol] 32.7 g/dL Normal 32-36 [facility] Comment on above: Performed By: #### L 500.2500, L501.5200, L100.0100, L501.2300 ####[facility] [address] [place], [address] MCV (RBC) [Entitic vol] 91.4 fL Normal 81-99 [facility] Comment on above: Performed By: #### L 500.2500, L501.5200, L100.0100, L501.2300 ####[facility] [address] [place], [address] Monocytes/100 WBC (Bld) 8.6 % Normal 0-10 [facility] Comment on above: Performed By: #### L 500.2500, L501.5200, L100.0100, L501.2300 ####[facility] [address] [place], [address] Neutrophils/100 WBC (Bld) 70.8 % High 47-70 [facility] Comment on above: Performed By: #### L 500.2500, L501.5200, L100.0100, L501.2300 ####[facility] [address] [place], [address] Nucleated RBC (Bld) [#/Vol] 0 10*3/uL Normal 0-5 [facility] Comment on above: Performed By: #### L 500.2500, L501.5200, L100.0100, L501.2300 ####[facility] [address] [place], [address] Platelet mean volume (Bld) [Entitic vol] 10.7 fL Normal 6.2-12.0 [facility] Comment on above: Performed By: #### L 500.2500, L501.5200, L100.0100, L501.2300 ####[facility] [address] [place], [address] Platelets (Bld) [#/Vol] 217 10*3/uL Normal 150-450 [facility] Comment on above: Performed By: #### L 500.2500, L501.5200, L100.0100, L501.2300 ####[facility] [address] [place], [address] RBC (Bld) [#/Vol] 3.48 10*6/uL Low 4.2-5.4 [facility] Comment on above: Performed By: #### L 500.2500, L501.5200, L100.0100, L501.2300 ####[facility] [address] [place], [address] RDW SD 47.8 fl High 35.1-43.9 [facility] Comment on above: Performed By: #### L 500.2500, L501.5200, L100.0100, L501.2300 ####[facility] [address] [place], [address] WBC (Bld) [#/Vol] 4.7 10*3/uL Normal 4.4-11.0 [facility] Comment on above: Performed By: #### L 500.2500, L501.5200, L100.0100, L501.2300 ####[facility] [address] [place], [address] Carbon dioxide, total [Moles /volume] in Central venous bloodOrdered By: Eleonora Montaño on 12-07-2024 CO2 [Moles/Vol] 19.9 mmol/L Low 21.0-32.0 [facility] Chloride assayOrdered By: Heide Montaño on 12-07-2024 Chloride [Moles/Vol] 113 mmol/L High 98-108 [facility] Eosinophil percentageOrdered By: Eleonora Montaño on 12-07-2024 Eosinophils/100 WBC (Bld) 2.6 % 0-5 [facility] Erythrocyte distribution wid th (RBC) [Ratio]Ordered By: Eleonora Montaño on 12-07-2024 Erythrocyte distribution width (RBC) [Entitic vol] 47.8 fL High 35.1-43.9 [facility] Erythrocyte distribution wid th ratioOrdered By: Eleonora Montaño on 12-07-2024 Erythrocyte distribution width (RBC) [Ratio] 14.3 % 11.6-14.6 [facility] Erythrocyte distribution wid th standard deviationOrdered By: Eleonora Montaño on 12-07-2024 Erythrocyte distribution width (RBC) [Ratio] 47.8 fl High 35.1-43.9 [facility] Estimation of creatinine nora aranceOrdered By: Eleonora Montaño on 12-07-2024 Estimated Creatinine Clearance Calc 52.40 ml/min 50-250 [facility] GFR/1.73 sq M.predicted [place] g non-blacks MDRD (S/P/Bld) [Vol rate/Area]Ordered By: Eleonora Montaño on 12-07-2024 Estimated GFR (MDRD) Non-Af Amer 88 >60 [facility] Comment on above: mL/min/1.73m2 CKD-EP I Creatinine Equation (2020) Glomerular filtration rate ( GFR) estimation/1.73 sq m using serum, plasma, or whole bOrdered By: Eleonora Montaño on 12-07-2024 GFR/1.73 sq M.predicted among non-blacks MDRD (S/P/Bld) [Vol rate/Area] 88 mL/min/{1.73_m2} >60 [facility] Comment on above: mL/min/1.73m2 CKD-EP I Creatinine Equation (2020) Hematocrit Auto (Bld) [Volum e fraction]Ordered By: Eleonora Montaño on 12-07-2024 Hematocrit (Bld) [Volume fraction] 31.8 % Low 37-47 [facility] Hemoglobin measurementOrdere d By: Eleonora Montaño on 12-07-2024 Hemoglobin (Bld) [Mass/Vol] 10.4 g/dL Low 12.0-15.0 [facility] Immature granulocytes/100 WB C Auto (Bld)Ordered By: Eleonora Montaño on 12-07-2024 Immature granulocytes/100 WBC (Bld) 0.900 % 0.0-0.9 [facility] Comment on above: IG% - Immature Granu locytes (promyelocytes, myelocytes and metamyelocytes) > 1% indicates that a LEFT SHIFT is Present. Lymphocytes Auto (Unsp spec) [#/Vol]Ordered By: Eleonora Montaño on 12-07-2024 Lymphocytes (Bld) [#/Vol] 0.77 10*3/uL Low 0.83-4.51 [facility] Lymphocytes/100 WBC Auto (Un sp spec)Ordered By: Eleonora Montaño on 12-07-2024 Lymphocytes/100 WBC (Bld) 16.5 % Low 19-41 [facility] MCV (mean corpuscular volume ) determinationOrdered By: Eleonora Montaño on 12-07-2024 MCV (RBC) [Entitic vol] 91.4 fL 81-99 [facility] Magnesiumon 12-07-2024 Magnesium [Mass/Vol] 2.1 mg/dL Normal 1.5-2.2 [facility] Comment on above: Performed By: #### L 500.2500, L501.5200, L100.0100, L501.2300 ####[facility] [address] [place], [place], [address] Magnesium (Unsp spec) [Mass/ Vol]Ordered By: Eleonora Montaño on 12-07-2024 Magnesium [Mass/Vol] 2.1 mg/dL 1.5-2.2 [facility] Magnesium measurement (mass/ volume)Ordered By: Eleonora Montaño on 12-07-2024 Magnesium (Unsp spec) [Mass/Vol] 2.1 mg/dL 1.5-2.2 [facility] Mean corpuscular hemoglobin (MCH) determinationOrdered By: Eleonora Montaño on 12-07-2024 MCH (RBC) [Entitic mass] 29.9 pg 27.0-32.0 [facility] Mean corpuscular hemoglobin concentration (MCHC) determinationOrdered By: Eleonora Montaño on 12-07-2024 MCHC (RBC) [Mass/Vol] 32.7 g/dL 32-36 [facility] Mean platelet volume determi nationOrdered By: Eleonora Montaño on 12-07-2024 Platelet mean volume (Bld) [Entitic vol] 10.7 fL 6.2-12.0 [facility] Monocyte percentageOrdered B y: Eleonora Montaño on 12-07-2024 Monocytes/100 WBC (Bld) 8.6 % 0-10 [facility] Neutrophil percentageOrdered By: Eleonora Montaño on 12-07-2024 Neutrophils/100 WBC (Bld) 70.8 % High 47-70 [facility] Nucleated red blood cell per centageOrdered By: Eleonora Montaño on 12-07-2024 Nucleated RBC/100 WBC (Bld) [Ratio] 0 % 0-5 [facility] Phosphoruson 12-07-2024 Phosphate [Mass/Vol] 2.4 mg/dL Low 2.7-4.5 [facility] Comment on above: Performed By: #### L 500.2500, L501.5200, L100.0100, L501.2300 ####[facility] [address] [place], [address] Platelet countOrdered By: Heide Montaño on 12-07-2024 Platelets (Bld) [#/Vol] 217 10*3/uL 150-450 [facility] Potassium (Unsp spec) [Mass/ Vol]Ordered By: Eleonora Montaño on 12-07-2024 Potassium [Moles/Vol] 3.8 mmol/L 3.3-5.1 [facility] Potassium measurement (mass/ volume)Ordered By: Eleonora Montaño on 12-07-2024 Potassium (Unsp spec) [Mass/Vol] 3.8 mmol/L 3.3-5.1 [facility] RBC Auto (Bld) [#/Vol]Ordere d By: Eleonora Montaño on 12-07-2024 RBC (Bld) [#/Vol] 3.48 10*6/uL Low 4.2-5.4 [facility] Serum creatinine measurement (mass/volume)Ordered By: Eleonora Montaño on 12-07-2024 Creatinine [Mass/Vol] 0.71 mg/dL 0.70-1.20 [facility] Serum glucose measurement (m ass/volume)Ordered By: Eleonora Montaño on 12-07-2024 Glucose [Mass/Vol] 87 mg/dL 70-99 [facility] Serum or plasma calcium demetrice urement (mass/volume)Ordered By: Eleonora Montaño on 12-07-2024 Calcium [Mass/Vol] 8.1 mg/dL 7.6-11.0 [facility] Serum or plasma urea nitroge n measurement (mass/volume)Ordered By: Eleonora Montaño on 12-07-2024 Urea nitrogen [Mass/Vol] 12 mg/dL 4-19 [facility] Serum phosphorus measurement Ordered By: Eleonora Montaño on 12-07-2024 Phosphorus Level 2.4 mg/dL Low 2.7-4.5 [facility] Sodium levelOrdered By: Markel Bender on 12-07-2024 Sodium [Moles/Vol] 141 mmol/L 133-145 [facility] White blood cell (WBC) count Ordered By: Eleonora Montaño on 04-15-2025 WBC (Bld) [#/Vol] 4.7 10*3/uL 4.4-11.0 [facility] Basic Metabolic Profile (BMP )on 12-06-2024 BUN/CRE 27.1 RATIO High 10-20 [facility] Comment on above: Performed By: #### L 501.5200, L500.2500, L501.2300, L100.0100 ####[facility] [address], [address] Calcium [Mass/Vol] 8.0 mg/dL Normal 7.6-11.0 [facility] Comment on above: Performed By: #### L 501.5200, L500.2500, L501.2300, L100.0100 ####[facility] [address] [place], [address] Chloride [Moles/Vol] 112 mmol/L High 98-108 [facility] Comment on above: Performed By: #### L 501.5200, L500.2500, L501.2300, L100.0100 ####[facility] [address] [place], [address] CO2 [Moles/Vol] 18.8 mmol/L Low 21.0-32.0 [facility] Comment on above: Performed By: #### L 501.5200, L500.2500, L501.2300, L100.0100 ####[facility] [address], [address] Creatinine [Mass/Vol] 0.64 mg/dL Low 0.70-1.20 [facility] Comment on above: Performed By: #### L 501.5200, L500.2500, L501.2300, L100.0100 ####[facility] [address] [place], [address] ECRCL 52.40 ml/min Normal 50-250 [facility] Comment on above: Performed By: #### L 501.5200, L500.2500, L501.2300, L100.0100 ####[facility] [address] [place], [address] GAP 9 Normal 5-15 [facility] Comment on above: Performed By: #### L 501.5200, L500.2500, L501.2300, L100.0100 ####[facility] [address] [place], [address] GFR/1.73 sq M.predicted among non-blacks MDRD (S/P/Bld) [Vol rate/Area] 91 mL/min/{1.73_m2} Normal >60 [facility] Comment on above: Result Comment: mL/m in/1.73m2 CKD-EPI Creatinine Equation (2020) Performed By: #### L 501.5200, L500.2500, L501.2300, L100.0100 ####[facility] [address] [place], [address] Glucose [Mass/Vol] 77 mg/dL Normal 70-99 [facility] Comment on above: Performed By: #### L 501.5200, L500.2500, L501.2300, L100.0100 ####[facility] [address] [place], [address] Potassium [Moles/Vol] 3.9 mmol/L Normal 3.3-5.1 [facility] Comment on above: Performed By: #### L 501.5200, L500.2500, L501.2300, L100.0100 ####[facility] [address] [place], [address] Sodium [Moles/Vol] 140 mmol/L Normal 133-145 [facility] Comment on above: Performed By: #### L 501.5200, L500.2500, L501.2300, L100.0100 ####[facility] [address] [place], [address] Urea nitrogen [Mass/Vol] 17 mg/dL Normal 4-19 [facility] Comment on above: Performed By: #### L 501.5200, L500.2500, L501.2300, L100.0100 ####[facility] [address] [place], [address] CBC W/Diff, Automatedon 11-23 Absolute Lymph 0.67 X10 3/uL Low 0.83-4.51 [facility] Comment on above: Performed By: #### L 501.5200, L500.2500, L501.2300, L100.0100 ####[facility] [address] [place], [address] Absolute Neut 3.8 X10 3/uL Normal 2.0-7.7 [facility] Comment on above: Performed By: #### L 501.5200, L500.2500, L501.2300, L100.0100 ####[facility] [address] [place], [address] Basophils/100 WBC (Bld) 0.2 % Normal 0-1 [facility] Comment on above: Performed By: #### L 501.5200, L500.2500, L501.2300, L100.0100 ####[facility] [address] [place], [address] Eosinophils/100 WBC (Bld) 0.4 % Normal 0-5 [facility] Comment on above: Performed By: #### L 501.5200, L500.2500, L501.2300, L100.0100 ####[facility] [address] [place], [address] Erythrocyte distribution width (RBC) [Ratio] 14.4 % Normal 11.6-14.6 [facility] Comment on above: Performed By: #### L 501.5200, L500.2500, L501.2300, L100.0100 ####[facility] [address] [place], [address] Hematocrit (Bld) [Volume fraction] 31.1 % Low 37-47 [facility] Comment on above: Performed By: #### L 501.5200, L500.2500, L501.2300, L100.0100 ####[facility] [address] [place], [address] Hemoglobin (Bld) [Mass/Vol] 10.1 g/dL Low 12.0-15.0 [facility] Comment on above: Performed By: #### L 501.5200, L500.2500, L501.2300, L100.0100 ####[facility] [address] [place], [address] IG% 0.400 Normal 0.0-0.9 [facility] Comment on above: Result Comment: IG% - Immature Granulocytes (promyelocytes, myelocytes and metamyelocytes) > 1% indicates that a LEFT SHIFT is Present. Performed By: #### L 501.5200, L500.2500, L501.2300, L100.0100 ####[facility] [address] [place], [address] Lymphocytes/100 WBC (Bld) 13.8 % Low 19-41 [facility] Comment on above: Performed By: #### L 501.5200, L500.2500, L501.2300, L100.0100 ####[facility] [address] [place], [address] MCH (RBC) [Entitic mass] 30.1 pg Normal 27.0-32.0 [facility] Comment on above: Performed By: #### L 501.5200, L500.2500, L501.2300, L100.0100 ####[facility] [address] [place], [address] MCHC (RBC) [Mass/Vol] 32.5 g/dL Normal 32-36 [facility] Comment on above: Performed By: #### L 501.5200, L500.2500, L501.2300, L100.0100 ####[facility] [address] [place], [address] MCV (RBC) [Entitic vol] 92.6 fL Normal 81-99 [facility] Comment on above: Performed By: #### L 501.5200, L500.2500, L501.2300, L100.0100 ####[facility] [address] [place], [address] Monocytes/100 WBC (Bld) 6.4 % Normal 0-10 [facility] Comment on above: Performed By: #### L 501.5200, L500.2500, L501.2300, L100.0100 ####[facility] [address] [place], [address] Neutrophils/100 WBC (Bld) 78.8 % High 47-70 [facility] Comment on above: Performed By: #### L 501.5200, L500.2500, L501.2300, L100.0100 ####[facility] [address] [place], [address] Nucleated RBC (Bld) [#/Vol] 0 10*3/uL Normal 0-5 [facility] Comment on above: Performed By: #### L 501.5200, L500.2500, L501.2300, L100.0100 ####[facility] [address] [place], [address] Platelet mean volume (Bld) [Entitic vol] 10.6 fL Normal 6.2-12.0 [facility] Comment on above: Performed By: #### L 501.5200, L500.2500, L501.2300, L100.0100 ####[facility] [address] [place], [address] Platelets (Bld) [#/Vol] 185 10*3/uL Normal 150-450 [facility] Comment on above: Performed By: #### L 501.5200, L500.2500, L501.2300, L100.0100 ####[facility] [address] [place], [address] RBC (Bld) [#/Vol] 3.36 10*6/uL Low 4.2-5.4 [facility] Comment on above: Performed By: #### L 501.5200, L500.2500, L501.2300, L100.0100 ####[facility] [address] [place], [address] RDW SD 49.0 fl High 35.1-43.9 [facility] Comment on above: Performed By: #### L 501.5200, L500.2500, L501.2300, L100.0100 ####[facility] [address] [place], [address] WBC (Bld) [#/Vol] 4.9 10*3/uL Normal 4.4-11.0 [facility] Comment on above: Performed By: #### L 501.5200, L500.2500, L501.2300, L100.0100 ####[facility] [address] [place], [address] Magnesiumon 12-06-2024 Magnesium [Mass/Vol] 2.4 mg/dL High 1.5-2.2 [facility] Comment on above: Performed By: #### L 501.5200, L500.2500, L501.2300, L100.0100 ####[facility] [address] [place], [address] Phosphoruson 12-06-2024 Phosphate [Mass/Vol] 1.9 mg/dL Low 2.7-4.5 [facility] Comment on above: Performed By: #### L 501.5200, L500.2500, L501.2300, L100.0100 ####[facility] [address] [place], [address] Basic Metabolic Profile (BMP )on 12-05-2024 BUN/CRE 21.8 RATIO High 10-20 [facility] Comment on above: Performed By: #### L 100.0100, L501.5200, L501.2300, L500.2500 #### [facility] Laboratory [address], [address] Calcium [Mass/Vol] 8.2 mg/dL Normal 7.6-11.0 [facility] Comment on above: Performed By: #### L 100.0100, L501.5200, L501.2300, L500.2500 #### [facility] Laboratory [address] [place], [address] Chloride [Moles/Vol] 113 mmol/L High 98-108 [facility] Comment on above: Performed By: #### L 100.0100, L501.5200, L501.2300, L500.2500 #### [facility] Laboratory [address] [place], [address] CO2 [Moles/Vol] 15.4 mmol/L Low 21.0-32.0 [facility] Comment on above: Performed By: #### L 100.0100, L501.5200, L501.2300, L500.2500 #### [facility] Laboratory [address], [address] Creatinine [Mass/Vol] 0.68 mg/dL Low 0.70-1.20 [facility] Comment on above: Performed By: #### L 100.0100, L501.5200, L501.2300, L500.2500 #### [facility] Laboratory [address] [place], [address] ECRCL 52.40 ml/min Normal 50-250 [facility] Comment on above: Performed By: #### L 100.0100, L501.5200, L501.2300, L500.2500 #### [facility] Laboratory [address] [place], [address] GAP 14 Normal 5-15 [facility] Comment on above: Performed By: #### L 100.0100, L501.5200, L501.2300, L500.2500 #### [facility] Laboratory [address] [place], [address] GFR/1.73 sq M.predicted among non-blacks MDRD (S/P/Bld) [Vol rate/Area] 90 mL/min/{1.73_m2} Normal >60 [facility] Comment on above: Result Comment: mL/m in/1.73m2 CKD-EPI Creatinine Equation (2020) Performed By: #### L 100.0100, L501.5200, L501.2300, L500.2500 #### [facility] Laboratory [address] [place], [address] Glucose [Mass/Vol] 95 mg/dL Normal 70-99 [facility] Comment on above: Performed By: #### L 100.0100, L501.5200, L501.2300, L500.2500 #### [facility] Laboratory [address] [place], [address] Potassium [Moles/Vol] 4.5 mmol/L Normal 3.3-5.1 [facility] Comment on above: Performed By: #### L 100.0100, L501.5200, L501.2300, L500.2500 #### [facility] Laboratory [address] [place], [address] Sodium [Moles/Vol] 142 mmol/L Normal 133-145 [facility] Comment on above: Performed By: #### L 100.0100, L501.5200, L501.2300, L500.2500 #### [facility] Laboratory [address] [place], [address] Urea nitrogen [Mass/Vol] 15 mg/dL Normal 4-19 [facility] Comment on above: Performed By: #### L 100.0100, L501.5200, L501.2300, L500.2500 #### [facility] Laboratory [address] [place], [address] CBC W/Diff, Automatedon 04-08 27-2024 Absolute Lymph 0.54 X10 3/uL Low 0.83-4.51 [facility] Comment on above: Performed By: #### L 100.0100, L501.5200, L501.2300, L500.2500 #### [facility] Laboratory [address] [place], [address] Absolute Neut 8.2 X10 3/uL High 2.0-7.7 [facility] Comment on above: Performed By: #### L 100.0100, L501.5200, L501.2300, L500.2500 #### [facility] Laboratory [address] [place], [address] Basophils/100 WBC (Bld) 0.1 % Normal 0-1 [facility] Comment on above: Performed By: #### L 100.0100, L501.5200, L501.2300, L500.2500 #### [facility] Laboratory [address] [place], [address] Eosinophils/100 WBC (Bld) 0.0 % Normal 0-5 [facility] Comment on above: Performed By: #### L 100.0100, L501.5200, L501.2300, L500.2500 #### [facility] Laboratory [address] [place], [address] Erythrocyte distribution width (RBC) [Ratio] 14.3 % Normal 11.6-14.6 [facility] Comment on above: Performed By: #### L 100.0100, L501.5200, L501.2300, L500.2500 #### [facility] Laboratory [address] [place], [address] Hematocrit (Bld) [Volume fraction] 37.1 % Normal 37-47 [facility] Comment on above: Performed By: #### L 100.0100, L501.5200, L501.2300, L500.2500 #### [facility] Laboratory [address] [place], [address] Hemoglobin (Bld) [Mass/Vol] 11.6 g/dL Low 12.0-15.0 [facility] Comment on above: Performed By: #### L 100.0100, L501.5200, L501.2300, L500.2500 #### [facility] Laboratory [address] [place], [address] IG% 0.600 Normal 0.0-0.9 [facility] Comment on above: Result Comment: IG% - Immature Granulocytes (promyelocytes, myelocytes and metamyelocytes) > 1% indicates that a LEFT SHIFT is Present. Performed By: #### L 100.0100, L501.5200, L501.2300, L500.2500 #### [facility] Laboratory [address] [place], [address] Lymphocytes/100 WBC (Bld) 5.8 % Low 19-41 [facility] Comment on above: Performed By: #### L 100.0100, L501.5200, L501.2300, L500.2500 #### [facility] Laboratory [address] [place], [address] MCH (RBC) [Entitic mass] 29.7 pg Normal 27.0-32.0 [facility] Comment on above: Performed By: #### L 100.0100, L501.5200, L501.2300, L500.2500 #### [facility] Laboratory [address] [place], [address] MCHC (RBC) [Mass/Vol] 31.3 g/dL Low 32-36 [facility] Comment on above: Performed By: #### L 100.0100, L501.5200, L501.2300, L500.2500 #### [facility] Laboratory [address] [place], [address] MCV (RBC) [Entitic vol] 94.9 fL Normal 81-99 [facility] Comment on above: Performed By: #### L 100.0100, L501.5200, L501.2300, L500.2500 #### [facility] Laboratory [address] [place], [address] Monocytes/100 WBC (Bld) 5.7 % Normal 0-10 [facility] Comment on above: Performed By: #### L 100.0100, L501.5200, L501.2300, L500.2500 #### [facility] Laboratory [address] [place], [address] Neutrophils/100 WBC (Bld) 87.8 % High 47-70 [facility] Comment on above: Performed By: #### L 100.0100, L501.5200, L501.2300, L500.2500 #### [facility] Laboratory [address] [place], [address] Nucleated RBC (Bld) [#/Vol] 0 10*3/uL Normal 0-5 [facility] Comment on above: Performed By: #### L 100.0100, L501.5200, L501.2300, L500.2500 #### [facility] Laboratory [address] [place], [address] Platelet mean volume (Bld) [Entitic vol] 11.3 fL Normal 6.2-12.0 [facility] Comment on above: Performed By: #### L 100.0100, L501.5200, L501.2300, L500.2500 #### [facility] Laboratory [address] [place], [address] Platelets (Bld) [#/Vol] 189 10*3/uL Normal 150-450 [facility] Comment on above: Performed By: #### L 100.0100, L501.5200, L501.2300, L500.2500 #### [facility] Laboratory [address] [place], [place], [address] RBC (Bld) [#/Vol] 3.91 10*6/uL Low 4.2-5.4 [facility] Comment on above: Performed By: #### L 100.0100, L501.5200, L501.2300, L500.2500 #### [facility] [address] [place], [address] RDW SD 49.2 fl High 35.1-43.9 [facility] Comment on above: Performed By: #### L 100.0100, L501.5200, L501.2300, L500.2500 #### [facility] [address] [place], [address] WBC (Bld) [#/Vol] 9.4 10*3/uL Normal 4.4-11.0 [facility] Comment on above: Performed By: #### L 100.0100, L501.5200, L501.2300, L500.2500 #### [facility] [address] [place], [address] Magnesiumon 12-05-2024 Magnesium [Mass/Vol] 2.5 mg/dL High 1.5-2.2 [facility] Comment on above: Performed By: #### L 100.0100, L501.5200, L501.2300, L500.2500 #### [facility] [address] [place], [address] Phosphoruson 12-05-2024 Phosphate [Mass/Vol] 3.4 mg/dL Normal 2.7-4.5 [facility] Comment on above: Performed By: #### L 100.0100, L501.5200, L501.2300, L500.2500 #### [facility] [address] [place], [address] Abdomen/Pelvis WITH Contrast on 12-04-2024 Abdomen/Pelvis WITH Contrast [facility] Imaging Services [address] [facility] [place] [address] Abdomen/Pelvis WITH Contrast MR#: [id number] Acct: [id number] Name: GERMANIA DONIS Rep #: [id number] : 1945 F 79 From: Kaila Choi nd, MD PCP: Dr. Sowmya Cabrera MD Status: [facility] ER Study: Abdomen/Pelvis WITH Contrast Date of Exam: 08/18 Exam# [id number] Ordering Dr: Pardeep Naranjo DO PROCEDURE: ABDOMEN/PELVIS WITH CONTRAST 12/04/2024 REASON FOR EXAM: ABDOMINAL PAIN TECHNIQUE: Abdomen and pelvis CT with intravenous contrast. Coronal and Sagittal reconstruction series were provided. PATIENT PREPARATION: Per protocol ORAL CONTRAST: Administered. CONTRAST: Isovue 370 VOLUME: 100 mL One or more dose reduction techniques were used (e.g., Automated exposure control, adjustment of the mA and/or kV according to patient size, use of iterative reconstruction technique. RADIATION DOSE SUMMARY: CTDlvol: 10 mGy DLP: 580 mGycm COMPARISON: None. FINDINGS: Lung bases: The heart is normal in size with aortic valvular calcifications. The lung bases are clear. Liver: The liver is normal in size without focal hepatic mass. The major portal veins are patent. No biliary ductal dilation. There is punctate free air along the dependent margin of the caudate lobe. Gallbladder: No radiopaque stones within the gallbladder. Spleen: Normal-size. Pancreas: Unremarkable. Adrenals: Mild thickening of the left adrenal gland without adrenal mass. Unremarkable right adrenal gland. Kidneys: Bilateral parapelvic cysts. No hydronephrosis or nephrolithiasis. Bladder: Distended and unremarkable. Reproductive Organs: Appropriate for patient age. Bowel: There is dilation of a central small bowel loop measuring up to 3.1 cm (coronal image 45). Just distal to the dilated small bowel loop, there is a focal portion of the small bowel measuring 4.5 x 4.1 cm (series 2, image 60), which demonstrates rim enhancement, air-fluid levels and punctate free air along the superior aspect of the fluid collection (series 2, images 51 and 54). This appears in continuity with the small bowel loop (coronal image 43). Marked fat stranding and edema of the subjacent small bowel loops. No large volume ascites. Normal appendix. Severe distal colonic diverticulosis. Lymph nodes: Prominent mesenteric nodes, likely reactive. Vasculature: Severe mixed aortoiliac plaque. Bones/soft tissues: Subcutaneous thickening within the umbilicus, compatible with recent hernia surgery. Thoracolumbar spondylosis. CT/Abdomen/Pelvis WITH Contrast IMPRESSION: 1. Dilation of a central small bowel loop with focal rim enhancing intraperitoneal mass which appears in continuity with the small bowel loop, most compatible with small bowel perforation and abscess. Surgical consultation recommended. 2. Punctate free air along the dependent margin of the caudate lobe, compatible with pneumoperitoneum. 3. Severe distal colonic diverticulosis. Findings were discussed by Dr. Stevens with Dr. Naranjo via telephone at 10:34 a.m. on 12/04/2024. Reading Location: [facility] CC: Dr. Sowmya Cabrera MD; Dr. Pardeep Naranjo DO Director Of Education: Signed Normal [facility] Absolute neutrophil countOrd ered By: Pardeep Naranjo on 12-04-2024 Neutrophils (Bld) [#/Vol] 6.2 10*3/uL 2.0-7.7 [facility] Anion gap in Serum or Plasma Ordered By: Pardeep Naranjo on 12-04-2024 Anion gap [Moles/Vol] 10 mmol/L 5-15 [facility] BUN/creatinine ratioOrdered By: Pardeep Naranjo on 12-04-2024 Urea nitrogen/Creatinine [Mass ratio] 23.5 mg/mg High 10-20 [facility] Basic Metabolic Profile (BMP )on 12-04-2024 BUN/CRE 23.5 RATIO High 10-20 [facility] Comment on above: Performed By: #### L 100.0100, L500.3400, L501.2450, L500.2500 #### [facility] [address] [place], [address] Calcium [Mass/Vol] 9.0 mg/dL Normal 7.6-11.0 [facility] Comment on above: Performed By: #### L 100.0100, L500.3400, L501.2450, L500.2500 #### [facility] [address] [place], [address] Chloride [Moles/Vol] 101 mmol/L Normal 98-108 [facility] Comment on above: Performed By: #### L 100.0100, L500.3400, L501.2450, L500.2500 #### [facility] [address] [place], [address] CO2 [Moles/Vol] 24.3 mmol/L Normal 21.0-32.0 [facility] Comment on above: Performed By: #### L 100.0100, L500.3400, L501.2450, L500.2500 #### [facility] [address] [place], [address] Creatinine [Mass/Vol] 0.72 mg/dL Normal 0.70-1.20 [facility] Comment on above: Performed By: #### L 100.0100, L500.3400, L501.2450, L500.2500 #### [facility] [address] [place], [address] ECRCL 52.40 ml/min Normal 50-250 [facility] Comment on above: Performed By: #### L 100.0100, L500.3400, L501.2450, L500.2500 #### [facility] [address] [place], [address] GAP 10 Normal 5-15 [facility] Comment on above: Performed By: #### L 100.0100, L500.3400, L501.2450, L500.2500 #### [facility] [address] [place], [address] GFR/1.73 sq M.predicted among non-blacks MDRD (S/P/Bld) [Vol rate/Area] 86 mL/min/{1.73_m2} Normal >60 [facility] Comment on above: Result Comment: mL/m in/1.73m2 CKD-EPI Creatinine Equation (2020) Performed By: #### L 100.0100, L500.3400, L501.2450, L500.2500 #### [facility] [address] [place], [address] Glucose [Mass/Vol] 98 mg/dL Normal 70-99 [facility] Comment on above: Performed By: #### L 100.0100, L500.3400, L501.2450, L500.2500 #### [facility] [address] [place], [address] Potassium [Moles/Vol] 4.5 mmol/L Normal 3.3-5.1 [facility] Comment on above: Performed By: #### L 100.0100, L500.3400, L501.2450, L500.2500 #### [facility] [address] [place], [address] Sodium [Moles/Vol] 135 mmol/L Normal 133-145 [facility] Comment on above: Performed By: #### L 100.0100, L500.3400, L501.2450, L500.2500 #### [facility] [address] [place], [address] Urea nitrogen [Mass/Vol] 17 mg/dL Normal 4-19 [facility] Comment on above: Performed By: #### L 100.0100, L500.3400, L501.2450, L500.2500 #### [facility] [address] [place], [address] Basophil percentageOrdered B y: Pardeep Naranjo on 12-04-2024 Basophils/100 WBC (Bld) 0.1 % 0-1 [facility] Bilirubin Test strip Ql (U)O rdered By: Pardeep Naranjo on 12-04-2024 Bilirubin Ql (U) Negative Negative [facility] Bilirubin directOrdered By: Pardeep Naranjo on 12-04-2024 Bilirubin.direct [Mass/Vol] 0.28 mg/dL 0.00-0.30 [facility] Bilirubin, totalOrdered By: Pardeep Naranjo on 12-04-2024 Bilirubin [Mass/Vol] 0.59 mg/dL 0.00-1.30 [facility] CBC W/Diff, Automatedon 11-23 Absolute Lymph 0.71 X10 3/uL Low 0.83-4.51 [facility] Comment on above: Performed By: #### L 100.0100, L500.3400, L501.2450, L500.2500 #### [facility] [address] [place], [address] Absolute Neut 6.2 X10 3/uL Normal 2.0-7.7 [facility] Comment on above: Performed By: #### L 100.0100, L500.3400, L501.2450, L500.2500 #### [facility] [address] [place], [address] Basophils/100 WBC (Bld) 0.1 % Normal 0-1 [facility] Comment on above: Performed By: #### L 100.0100, L500.3400, L501.2450, L500.2500 #### [facility] [address] [place], [address] Eosinophils/100 WBC (Bld) 0.3 % Normal 0-5 [facility] Comment on above: Performed By: #### L 100.0100, L500.3400, L501.2450, L500.2500 #### [facility] [address] [place], [address] Erythrocyte distribution width (RBC) [Ratio] 14.0 % Normal 11.6-14.6 [facility] Comment on above: Performed By: #### L 100.0100, L500.3400, L501.2450, L500.2500 #### [facility] [address] [place], [address] Hematocrit (Bld) [Volume fraction] 37.1 % Normal 37-47 [facility] Comment on above: Performed By: #### L 100.0100, L500.3400, L501.2450, L500.2500 #### [facility] [address] [place], [address] Hemoglobin (Bld) [Mass/Vol] 12.2 g/dL Normal 12.0-15.0 [facility] Comment on above: Performed By: #### L 100.0100, L500.3400, L501.2450, L500.2500 #### [facility] [address] [place], [address] IG% 0.400 Normal 0.0-0.9 [facility] Comment on above: Result Comment: IG% - Immature Granulocytes (promyelocytes, myelocytes and metamyelocytes) > 1% indicates that a LEFT SHIFT is Present. Performed By: #### L 100.0100, L500.3400, L501.2450, L500.2500 #### [facility] [address] [place], [address] Lymphocytes/100 WBC (Bld) 9.5 % Low 19-41 [facility] Comment on above: Performed By: #### L 100.0100, L500.3400, L501.2450, L500.2500 #### [facility] [address] [place], [address] MCH (RBC) [Entitic mass] 29.7 pg Normal 27.0-32.0 [facility] Comment on above: Performed By: #### L 100.0100, L500.3400, L501.2450, L500.2500 #### [facility] [address] [place], [address] MCHC (RBC) [Mass/Vol] 32.9 g/dL Normal 32-36 [facility] Comment on above: Performed By: #### L 100.0100, L500.3400, L501.2450, L500.2500 #### [facility] [address] [place], [address] MCV (RBC) [Entitic vol] 90.3 fL Normal 81-99 [facility] Comment on above: Performed By: #### L 100.0100, L500.3400, L501.2450, L500.2500 #### [facility] [address] [place], [address] Monocytes/100 WBC (Bld) 6.5 % Normal 0-10 [facility] Comment on above: Performed By: #### L 100.0100, L500.3400, L501.2450, L500.2500 #### [facility] [address] [place], [address] Neutrophils/100 WBC (Bld) 83.2 % High 47-70 [facility] Comment on above: Performed By: #### L 100.0100, L500.3400, L501.2450, L500.2500 #### [facility] [address] [place], [address] Nucleated RBC (Bld) [#/Vol] 0 10*3/uL Normal 0-5 [facility] Comment on above: Performed By: #### L 100.0100, L500.3400, L501.2450, L500.2500 #### [facility] [address] [place], [address] Platelet mean volume (Bld) [Entitic vol] 10.9 fL Normal 6.2-12.0 [facility] Comment on above: Performed By: #### L 100.0100, L500.3400, L501.2450, L500.2500 #### [facility] [address] [place], [address] Platelets (Bld) [#/Vol] 182 10*3/uL Normal 150-450 [facility] Comment on above: Performed By: #### L 100.0100, L500.3400, L501.2450, L500.2500 #### [facility] [address] [place], [address] RBC (Bld) [#/Vol] 4.11 10*6/uL Low 4.2-5.4 [facility] Comment on above: Performed By: #### L 100.0100, L500.3400, L501.2450, L500.2500 #### [facility] [address] [place], [address] RDW SD 46.5 fl High 35.1-43.9 [facility] Comment on above: Performed By: #### L 100.0100, L500.3400, L501.2450, L500.2500 #### [facility] [address] [place], [address] WBC (Bld) [#/Vol] 7.4 10*3/uL Normal 4.4-11.0 [facility] Comment on above: Performed By: #### L 100.0100, L500.3400, L501.2450, L500.2500 #### [facility] [address] [place], [address] Carbon dioxide, total [Moles /volume] in Central venous bloodOrdered By: Pardeep Naranjo on 12-04-2024 CO2 [Moles/Vol] 24.3 mmol/L 21.0-32.0 [facility] Chloride assayOrdered By: Asher Naranjo on 12-04-2024 Chloride [Moles/Vol] 101 mmol/L 98-108 [facility] Emergency Department Summary on 12-04-2024 Emergency Department Summary [facility] Medical Records Department [address] [place] [address] Emergency Department Summary 12/04/24 MR#: [id number] Acct: [id number] Name: GERMANIA DONIS Rep #: [id number] : 1945 79 From: Pardeep Naranjo DO PCP: Dr. Sowmya Cabrera MD Status:ADM IN Location: [facility] SW820-8 HPI HPI - GI History of Present Illness Chief Complaint: Abd Pain Informant: patient Narrative Narrative: 79-year-old female presenting to the emergency department with a chief complaint of abdominal pain. Patient states that on Friday she developed a periumbilical ache. Nonradiating. She denies any other associated symptoms. She states is pretty constantly there. She notes some anorexia with it. She denies any fevers but notes her temperatures been up to 99. She denies urinary symptoms. A month ago she underwent umbilical hernia repair with Dr. Leonard. She denies any prior abdominal surgeries. She subsequently followed up and things were progressing normally. [facility] Medical History Umbilical hernia Wears glasses Wears partial dentures Wears dentures Depression Cervical stenosis of spine Arthritis Low iron High cholesterol Non-smoker Shortness of breath on exertion History of echocardiogram History of stress test Thyroid disease Heart murmur Home Medications ???Medication ???Instructions ???Recorded ???Last Taken ???Type alendronate 35 mg tablet 35 mg PO QWEEK 09/27/24 10/31/24 H istory atorvastatin 80 mg tablet 80 mg PO QDAY 09/27/24 11/03/24 Hi story baclofen 10 mg tablet 10 mg PO QDAY 09/27/24 11/03/24 Hi story calcium carbonate 500 mg PO QDAY 09/27/24 11/03/24 H istory levothyroxine 100 mcg capsule 100 mcg PO QDAY 09/27/24 11/03/24 History axnhgvda-vkmivtja-kmic c acid 240 1 tab PO DAILY 09/27/24 11/03/24 H istory mcg-vit K1 150 mcg-herb 357 tablet (Alive Women's 50 Plus Ultra Multivitamin) vitamins A,C,V-lxpq-fltpmq 4,296 1 cap PO BID 09/27/24 11/03/24 His tory mcg-226 mg-90 mg capsule (PreserVision AREDS) zolpidem 10 mg tablet 10 mg PO QHS 09/27/24 11/03/24 His tory Allergy/AdvReac Type Severity Reaction Status Date / Time No Known Allergies Allergy Verified 12/04/24 07:33 Family History Sister Diabetes Surgical History S/P umbilical hernia repair, follow-up exam History of hysterectomy Previous back surgery Social History Smoking Status: Never smoker alcohol intake: never substance use type: does not use ROS ROS ED Constitutional Constitutional ED: Denies chills, fever(s) or weight loss Eyes Eyes: Denies change in vision or diplopia ENT ENT ED: Denies ear pain, rhinorrhea or sore throat Cardiovascular Cardiovascular: Denies chest pain, orthopnea, palpitations or racing heartbeat Respiratory/Chest Respiratory/Chest: Denies cough, dyspnea or orthopnea Gastrointestinal Gastrointestinal: Reports abdominal pain; Denies constipation, diarrhea, nausea or vomiting Genitourinary Genitourinary ED: Denies dysuria, hematuria or urinary frequency Musculoskeletal Musculoskeletal: Denies arthralgias or myalgias Integumentary Denies abscess or rash Neurologic Neurologic: Denies headache(s) or weakness Psychiatric Psychiatric: Denies anxiety, depression, suicidal ideation or suicidal thoughts Endocrine Endocrinology: Denies polydipsia, polyphagia or polyuria Allergic/Immunologic Allergic/Immunologic ED: Denies mouth swelling, tongue swelling or urticaria EXAM Physical Exam Const Vital Signs: 12/04/24 07:33 12/04/24 09:32 12/04/24 11:00 Temperature 98.9 F Temperature Source Oral Pulse Rate 89 82 82 Respiratory Rate 18 18 18 Blood Pressure 108/66 140/62 H Blood Pressure Mean 80 88 Pulse Ox 97 96 96 Oxygen Delivery Method Room Air Positive well nourished and well developed General Appearance ED: well developed and NAD HEENT Reports normocephalic, head/scalp atraumatic and moist mucous membranes Eyes PERRL and EOMs intact bilaterally Neck no lymphadenopathy, supple and no JVD Resp normal respiratory effort and clear to auscultation bilaterally Cardio regular rate, regular rhythm and no murmurs GI Inspection: Negative for abdominal distention Auscultation: normoactive bowel sounds Palpation: soft and tender LLQ, RLQ, LUQ and periumbilical; Negative for guarding or rebound tenderness present Back/Spine no CVA tenderness and normal ROM Extremity normal to inspection General Extremety ED: Negative for edema General Extremity: Negative for edema Neuro oriented x3 and CN's II-XII intact bilate (more content not included)... Normal [facility] Eosinophil percentageOrdered By: Pardeep Naranjo on 12-04-2024 Eosinophils/100 WBC (Bld) 0.3 % 0-5 [facility] Epithelial cells.squamous LM Ql (Urine sed)Ordered By: Pardeep Naranjo on 12-04-2024 Epithelial cells.squamous LM.HPF (Urine sed) [#/Area] 0 /[HPF] 5-10 [facility] Erythrocyte distribution wid th (RBC) [Ratio]Ordered By: Pardeep Naranjo on 12-04-2024 Erythrocyte distribution width (RBC) [Entitic vol] 46.5 fL High 35.1-43.9 [facility] Erythrocyte distribution wid th ratioOrdered By: Pardeep Naranjo on 12-04-2024 Erythrocyte distribution width (RBC) [Ratio] 14.0 % 11.6-14.6 [facility] Estimation of creatinine nora aranceOrdered By: Pardeep Naranjo on 12-04-2024 Estimated Creatinine Clearance Calc 52.40 ml/min 50-250 [facility] GFR/1.73 sq M.predicted [place] g non-blacks MDRD (S/P/Bld) [Vol rate/Area]Ordered By: Pardeep Naranjo on 12-04-2024 Estimated GFR (MDRD) Non-Af Amer 86 >60 [facility] Comment on above: mL/min/1.73m2 CKD-EP I Creatinine Equation (2020) Glucose Ql (U)Ordered By: Asher Naranjo on 12-04-2024 Urine Glucose (UA) Normal mg/dl Normal [facility] Hematocrit Auto (Bld) [Volum e fraction]Ordered By: Pardeep Naranjo on 12-04-2024 Hematocrit (Bld) [Volume fraction] 37.1 % 37-47 [facility] Hemoglobin measurementOrdere d By: Pardeep Naranjo on 12-04-2024 Hemoglobin (Bld) [Mass/Vol] 12.2 g/dL 12.0-15.0 [facility] Immature granulocytes/100 WB C Auto (Bld)Ordered By: Pardeep Naranjo on 12-04-2024 Immature granulocytes/100 WBC (Bld) 0.400 % 0.0-0.9 [facility] Comment on above: IG% - Immature Granu locytes (promyelocytes, myelocytes and metamyelocytes) > 1% indicates that a LEFT SHIFT is Present. Ketones Test strip Ql (U)Ord ered By: Pardeep Naranjo on 12-04-2024 Ketones Ql (U) 15 mg/dl High Negative [facility] Laboratory - Chemistry and C hemistry - challengeOrdered By: Pardeep Naranjo on 12-04-2024 AST [Catalytic activity/Vol] 39 U/L High <32 [facility] Lipaseon 12-04-2024 Lipase [Catalytic activity/Vol] 31 U/L Normal 13-75 [facility] Comment on above: Result Comment: Con greco note: LIPASE revised reference range effective 22. New Lipase methodology. Expected to produce lower values than the previous assay method. NEW Reference Range: 13 - 75 U/L Performed By: #### L 100.0100, L500.3400, L501.2450, L500.2500 ####[facility] [address] [place], [address] Lipase measurementOrdered By : Pardeep Naranjo on 12-04-2024 Lipase [Catalytic activity/Vol] 31 U/L 13-75 [facility] Comment on above: Please note:LIPASE r evised reference range effective 22. New Lipase methodology. Expected to produce lower values than the previous assay method. NEW Reference Range: 13 - 75 U/L Liver Profileon 12-04-2024 Albumin [Mass/Vol] 3.5 g/dL Normal 3.4-4.8 [facility] Comment on above: Performed By: #### L 100.0100, L500.3400, L501.2450, L500.2500 ####[facility] [address] [place], [address] ALK PHOS 110 U/L High 35-104 [facility] Comment on above: Performed By: #### L 100.0100, L500.3400, L501.2450, L500.2500 ####[facility] [address] [place], [address] ALT [Catalytic activity/Vol] 32 U/L Normal <=34 [facility] Comment on above: Performed By: #### L 100.0100, L500.3400, L501.2450, L500.2500 ####[facility] [address] [place], [address] AST [Catalytic activity/Vol] 39 U/L High <=31 [facility] Comment on above: Performed By: #### L 100.0100, L500.3400, L501.2450, L500.2500 ####[facility] [address] [place], [address] Bilirubin [Mass/Vol] 0.59 mg/dL Normal 0.00-1.30 [facility] Comment on above: Performed By: #### L 100.0100, L500.3400, L501.2450, L500.2500 ####[facility] [address] [place], [address] Bilirubin.direct [Mass/Vol] 0.28 mg/dL Normal 0.00-0.30 [facility] [place] Comment on above: Performed By: #### L 100.0100, L500.3400, L501.2450, L500.2500 ####[facility] [place] [address] [place], [address] Globulin (S) [Mass/Vol] 3.4 g/dL Normal 2.2-4.2 [facility] Comment on above: Performed By: #### L 100.0100, L500.3400, L501.2450, L500.2500 ####[facility] [place] [address] [place], [address] T PROT 6.9 g/dL Normal 5.9-8.4 [facility] [place] Comment on above: Performed By: #### L 100.0100, L500.3400, L501.2450, L500.2500 ####[facility] [place] [address] [place], [address] Lymphocytes Auto (Unsp spec) [#/Vol]Ordered By: Pardeep Naranjo on 12-04-2024 Lymphocytes (Bld) [#/Vol] 0.71 10*3/uL Low 0.83-4.51 [facility] [place] Lymphocytes/100 WBC Auto (Un sp spec)Ordered By: Pardeep Naranjo on 12-04-2024 Lymphocytes/100 WBC (Bld) 9.5 % Low 19-41 [facility] [place] MCV (mean corpuscular volume ) determinationOrdered By: Pardeep Naranjo on 12-04-2024 MCV (RBC) [Entitic vol] 90.3 fL 81-99 [facility] MR/POSTOP.ANEon 12-04-2024 MR/POSTOP.ANE [facility] Medical Records Department [address] [place] [address] Anesthesia Postop Eval I 12/04/241456 MR#: [id number] Acct: [id number] Name: GERMANIA DONIS Rep #: [id number] : 1945 79 From: Pardeep Pierre MD PCP: Dr. Sowmya Cabrera MD Status:ADM IN Y Race: C Location: [place] [address]-1 Anesthesia: Postop Eval I Current Vital Signs Temperature: 38 F Pulse Rate: 78 Blood Pressure: 108/78 Respiratory Rate: 15 Pulse Ox: 100 Oxygen Delivery Method: Room Air Assessment Airway patent: Yes Spontaneous unlabored respirations: Yes Mental status: Awake and Calm nausea: No Vomiting: No Anesthesia Complication: No Fluid Hydration Crystalloid volume administer (ml): 1,250 Total IV fluid infused: 1,250 Progress Note Post-operative progress note: Patient was comfortable and conversant on arrival in pacu Anesthesia document: Postop Eval 1 completed: Yes 12/04/241458 Date Pardeep Pierre MD Cosign Signature: Date CC: Signed Normal [facility] [place] MR/[id number] 12-04-2024 [facility] Medical Records Department [address] [place] [address] Anesthesia Postop Eval II 12/04/241458 MR#: [id number] Acct: [id number] Name: GERMANIA DONIS Rep #: [id number] : 1945 79 From: Pardeep Pierre MD PCP: Dr. Sowmya Cabrera MD Status:ADM IN Y Race: C Location: [place] [address]367-1 Anesthesia Postop Eval I Sum Postop Eval Completion status Anesthesia document: Postop Eval 1 completed: Yes Anesthesia Postop Eval I Summary Anesthesia Postop Eval I Summary: Anesthesia Postop Eval I: Assessment Summary Airway patent Yes 12/04/24 14:59 Spontaneous unlabored Yes 12/04/24 14:59 respirations Mental status Awake,Calm 12/04/24 14:59 nausea No 12/04/24 14:59 Vomiting No 12/04/24 14:59 Anesthesia Postop Eval I: Fluid Summary Crystalloid volume administer 1,250 12/04/24 14:59 (ml) Colloids volume administered ( ml) Blood Product volume administered (ml) Total IV fluid infused 1,250 12/04/24 14:59 Anesthesia Postop Eval I: Summary Notes Anesthesia Complication No 12/04/24 14:59 Anesthesia Complication Comment: Post-operative progress note Patient was 12/04/24 14:59 comfortable and conversant on arrival in pacu Anesthesia: Postop Eval II Evaluation Mental status: Awake and Calm Pain Level: 4 nausea: No Vomiting: No Progress Note Post-operative progress note: Patient doing well in pacu. No apparent complications Complications Anesthesia Complication: No 12/04/24 1500 Date Pardeep Pierre MD Cosigner Signature: Date CC: Signed Normal [facility] [place] Mean corpuscular hemoglobin (MCH) determinationOrdered By: Pardeep Naranjo on 12-04-2024 MCH (RBC) [Entitic mass] 29.7 pg 27.0-32.0 [facility] [place] Mean corpuscular hemoglobin concentration (MCHC) determinationOrdered By: Pardeep Naranjo on 12-04-2024 MCHC (RBC) [Mass/Vol] 32.9 g/dL 32-36 [facility] Mean platelet volume determi nationOrdered By: Pardeep Naranjo on 12-04-2024 Platelet mean volume (Bld) [Entitic vol] 10.9 fL 6.2-12.0 [facility] [place] Microscopic analysis of urin e for red blood cells (RBC)Ordered By: Pardeep Naranjo on 12-04-2024 Microscopic analysis of urine for red blood cells (RBC) 0 SEEN /hpf 0-5 [facility] [place] Urine RBC 0 SEEN /hpf 0-5 [facility] [place] Monocyte percentageOrdered B y: Pardeep Naranjo on 12-04-2024 Monocytes/100 WBC (Bld) 6.5 % 0-10 [facility] Mucus LM Ql (Urine sed)Order ed By: Pardeep Naranjo on 12-04-2024 Mucus Ql (Urine sed) RARE /hpf [facility] Neutrophil percentageOrdered By: Pardeep Naranjo on 12-04-2024 Neutrophils/100 WBC (Bld) 83.2 % High 47-70 [facility] [place] Nitrite Test strip Ql (U)Ord ered By: Pardeep Narnajo on 12-04-2024 Nitrite Ql (U) Negative Negative [facility] [place] Nucleated red blood cell per centageOrdered By: Pardeep Naranjo on 12-04-2024 Nucleated RBC/100 WBC (Bld) [Ratio] 0 % 0-5 [facility] [place] Operative Reporton Operative Report [facility] [place] [facility] Medical Records Department [address] [place] [address] Operative Report 12/04/24 1434 MR#: [id number] Acct: [id number] Name: GERMANIA DONIS Rep #: [id number] : 1945 79 From: Darrick Light MD PCP: Dr. 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 Surgery/Procedure Performed: Diagnostic laparoscopy with small bowel resection and reanastomosis train starter: Yes Marketing Operations Associate: Mora Richard Tasks completed by medical billing assistant: Opening closing, Trocar and Retracting Type of Anesthesia: General/Supplemental RN Documented Start/Stop Times: Operation Date: 12/04/24 12:45 Case Time Anesthesia Start 12/04/24 12:40 Into Room 12/04/24 12:40 Procedure Start 12/04/24 13:04 Procedure End 12/04/24 14:39 Anesthesia End 12/04/24 14:46 Out of Room 12/04/24 14:46 Into Recovery 12/04/24 14:47 Out of Recovery 12/04/24 15:43 Procedure Start Time: 13:04 Procedure Stop Time: 14:39 Select all DRAINS/GRAFTS/IMPLANTS that apply: Drains Drain details: 15 Togolese round Mauricio Estimated Blood Loss: 20 Specimen collected: Yes Description of specimen(s) removed: Small bowel Description of surgery: Patient arrived from the emergency department and written consents were confirmed. She was brought to the operating room where he was positioned supine on the operating room table. She underwent induction with general endotracheal anesthetic. She had previously been administered Zosyn by emergency medicine. Anesthesia placed an orogastric tube. SCDs placed on bilateral lower extremities were connected. Patient's abdomen was prepped and draped in usual sterile fashion. A formal timeout followed to confirm patient and the procedure. The procedure was begun with a supraumbilical incision carried down to the fascia which was elevated between clamps and sharply incised. I was very careful to only incise the fascia and then the peritoneal layer was likewise elevated and sharply incised with scissors. Finger sweep confirmed peritoneal entry and a 12 mm Chowdary balloon trocar was placed. The abdomen was inspected and revealed no inadvertent injury from our port placement. Abdomen was insufflated to a set pressure of 15 mmHg. Brief inspection of the peritoneum revealed mildly dilated loops of small bowel in the midabdomen but no elvis purulence. To facilitate a more thorough exploration, I made the decision to place 2 additional trocars were placed in the right upper quadrant and left lower quadrant. The patient was then positioned Trendelenburg with the left side down and I began to inspect the peritoneum by first identifying the terminal ileum and running the bowel proximally in a hand over hand fashion until I encountered densely adherent knotting of the distal jejunal segment in the left lower quadrant. Using atraumatic graspers and a suction pen maker device I bluntly teased a perforated small bowel diverticulum from its position within adjacent small bowel mesentery. This area was fully opened up and explored. No additional areas of concern were identified apart from the small bowel diverticulum. The area was copiously irrigated and suctioned free to minimize contamination spread. A locking grasper was placed on the small bowel mesentery for identification of the small bowel diverticulum. Looking to perform a limited laparotomy incision in a location of my supraumbilical port site I performed a limited tap block with use of local anesthetic by instilling the local just lateral to the linea semilunaris under laparoscopic visualization. A 10 blade scalpel was then used to incise the skin superior to our supraumbilical port for a distance of approximately 5 cm. It was deepened through the abdominal fascia with the use of electrocautery and a medium sized Guillermo wound protector was placed. The small bowel was eviscerated via this opening. Mesenteric defects were created bluntly and the small bowel mesentery was taken around the area of the perforated small bowel diverticulum. Then the small bowel involved by the diverticulum (a segment of approximately 12 cm in length) was divided with serial firings of the 55 mm GRACIE stapler x 2. The specimen was passed off the field labeled small bowel. Then a standard zrxl-[id number]-lytn functional end-to-end small bowel anastomosis was created with a third firing of the GRACIE stapler. The common enterotomy was closed with a firing of a TX 60 stapler. The resulting staple line was largely hemostatic but was imbricated with a running 3-0 silk suture. Mesenteric defect was closed with a second running 3-0 silk suture. Finally a (more content not included)... Normal [facility] [place] Platelet countOrdered By: Asher Naranjo on 12-04-2024 Platelets (Bld) [#/Vol] 182 10*3/uL 150-450 [facility] [place] Potassium (Unsp spec) [Mass/ Vol]Ordered By: Pardeep Naranjo on 12-04-2024 Potassium [Moles/Vol] 4.5 mmol/L 3.3-5.1 [facility] Protein Test strip Ql (U)Ord ered By: Pardeep Naranjo on 12-04-2024 Protein Ql (U) 15 mg/dl High Negative [facility] [place] RBC Auto (Bld) [#/Vol]Ordere d By: Pardeep Naranjo on 12-04-2024 RBC (Bld) [#/Vol] 4.11 10*6/uL Low 4.2-5.4 [facility] Serum creatinine measurement (mass/volume)Ordered By: Pardeep Naranjo on 12-04-2024 Creatinine [Mass/Vol] 0.72 mg/dL 0.70-1.20 [facility] Serum globulin measurementOr dered By: Pardeep Naranjo on 12-04-2024 Globulin (S) [Mass/Vol] 3.4 g/dL 2.2-4.2 [facility] Serum glucose measurement (m ass/volume)Ordered By: Pardeep Naranjo on 12-04-2024 Glucose [Mass/Vol] 98 mg/dL 70-99 [facility] Serum or plasma alanine eastman otransferase (ALT) measurementOrdered By: Pardeep Naranjo on 12-04-2024 ALT [Catalytic activity/Vol] 32 U/L <35 [facility] [place] Serum or plasma albumin demetrice urement (mass/volume)Ordered By: Pardeep Naranjo on 12-04-2024 Albumin [Mass/Vol] 3.5 g/dL 3.4-4.8 [facility] Serum or plasma alkaline dedrick sphatase measurementOrdered By: Pardeep Naranjo on 12-04-2024 ALP [Catalytic activity/Vol] 110 U/L High 35-104 [facility] [place] Serum or plasma calcium demetrice urement (mass/volume)Ordered By: Pardeep Naranjo on 12-04-2024 Calcium [Mass/Vol] 9.0 mg/dL 7.6-11.0 [facility] Serum or plasma urea nitroge n measurement (mass/volume)Ordered By: Pardeep Naranjo on 12-04-2024 Urea nitrogen [Mass/Vol] 17 mg/dL 4-19 [facility] [place] Sodium levelOrdered By: Kelvin aNranjo on 12-04-2024 Sodium [Moles/Vol] 135 mmol/L 133-145 [facility] Squamous epithelial cells de tection in urine sediment by light microscopyOrdered By: Pardeep Naranjo on 12-04-2024 Epithelial cells.squamous LM Ql (Urine sed) 0-5 SEEN /hpf 5-10 [facility] [place] Surgery Specimen Level Von 0 12-04-2024 Surgery Specimen Level V ------- ---- Patient Age/Sex Location Account Attending Physician ---- GERMANIA DONIS 79/F MS3 [id number] Dr. Darrick Light MD ---- Specimen: [id number] Received: 12/06/24 Status: PEG Annalee Num: [id number] Spec Type: COLON Subm Dr: Dr. Darrick Light MD HEADER OPERATION: Diagnostic laparoscopy, laparotomy, small bowel resection PRE-OP DIAGNOSIS: Perforated small bowel TISSUE SUBMITTED: A- Small bowel ---- MICROSCOPIC DIAGNOSIS A. Small bowel, perforation, segmental resection: * Focal ulceration with full-thickness transmural defect, necrosis and suppurative inflammation, consistent with perforation. * Viable end resection margins with no specific pathologic change. MICROSCOPIC DESCRIPTION Slides are reviewed. GROSS DESCRIPTION A. Received in formalin in a container labeled with the patient's name, date of , and small bowel is an unoriented segment of small bowel with 2 stapled margins measuring 12.5 cm in length by 3.5 cm in diameter. 5.5 cm from one stapled margin (inked black) and 7.5 cm from the opposing stapled margin (inked green) is a 3.5 cm in length by 3.5 cm in diameter outpouching with shaggy serosa and an abundance of adherent exudate. Situated on the out-pouch is a 0.3 x 0.3 cm transmural defect (inked blue) with surrounding exudate. The specimen is opened to reveal that the out-pouch exhibits disrupted, ramires-brown mucosa with adherent white-ramires possible exudate. The remaining small bowel mucosa is whitt-pink, velvety, with typical transverse folds and a wall thickness up to 0.7 cm. No distinct mass-like lesion is grossly recognized. [employer] Supervisor sections:A1-2. Opposing margins, en faceA3. Full-thickness section with transmural defectA4-5. Mucosa from outpouching and out-pouch to normal mucosa [facility] 12/13/2024 CPT:06100 ---- Patient Age/Sex Location Account Attending Physician ---- GERMANIA DONIS 79/F MS3 [id number] Dr. Darrick Light MD ---- Signed (signature on file) Dr. Prerna Rush MD 12/13/24 1407 ---- Normal [facility] [place] Comment on above: Performed By: #### P SUV ####[facility] [place] [address] [place], [place], [id number] Total proteinOrdered By: Prosper Naranjo on 12-04-2024 Protein [Mass/Vol] 6.9 g/dL 5.9-8.4 [facility] Urinalysis, Completeon 12-04 BACTERIA 1+ /hpf Normal None Seen [facility] [place] Comment on above: Order Comment: CLEAN CATCH Performed By: #### L 400.0001 ####[facility] [place] [address] [place], [address] EPI,SQUAMOUS 0-5 SEEN Normal 5-10 [facility] [place] Comment on above: Order Comment: CLEAN CATCH Performed By: #### L 400.0001 ####[facility] [place] [address] [place], [address] Mucus Ql (Urine sed) RARE Normal [facility] Comment on above: Order Comment: CLEAN CATCH Performed By: #### L 400.0001 ####[facility] [place] [address] [place], [address] WBC 0-5 SEEN Normal 0-5 [facility] [place] Comment on above: Order Comment: CLEAN CATCH Performed By: #### L 400.0001 ####[facility] [place] [address] [place], [address] RBC 0 SEEN Normal 0-5 [facility] [place] Comment on above: Order Comment: CLEAN CATCH Performed By: #### L 400.0001 ####[facility] [place] [address] [place], [address] Urine blood detectionOrdered By: Pardeep Naranjo on 12-04-2024 Urine Occult Blood Negative Negative [facility] Urine clarityOrdered By: Prosper Naranjo on 12-04-2024 Clarity (U) Sl. Cloudy Clear [facility] [place] Urine color determinationOrd ered By: Pardeep Naranjo on 12-04-2024 Color (U) Yellow Yellow [facility] [place] Urine glucose detectionOrder ed By: Pardeep Naranjo on 12-04-2024 Glucose Ql (U) Normal mg/dl Normal [facility] [place] Urine leukocyte esterase det ection by dipstickOrdered By: Pardeep Naranjo on 12-04-2024 Leukocyte esterase Test strip Ql (U) 25 /ul High Negative [facility] [place] Urine pHOrdered By: Pardeep washburn on 12-04-2024 pH (U) 6.0 [pH] 5.0 - 8.0 [facility] [place] Urine sediment bacteria coun t by microscopy (number/high power field)Ordered By: Pardeep Naranjo on 12-04-2024 Bacteria LM.HPF (Urine sed) [#/Area] 1 /[HPF] None Seen [facility] [place] Urine specific gravity measu rementOrdered By: Pardeep Naranjo on 12-04-2024 Specific gravity (U) [Rel density] 1.010 1.002-1.030 [facility] [place] Urine urobilinogen measureme ntOrdered By: Pardeep Naranjo on 12-04-2024 Urobilinogen Ql (U) Normal mg/dl Normal [facility] Urobilinogen Ql (U)Ordered B y: Pardeep Naranjo on 12-04-2024 Urine Urobilinogen Normal mg/dl Normal [facility] White blood cell (WBC) count Ordered By: Pardeep Naranjo on 12-04-2024 WBC (Bld) [#/Vol] 7.4 10*3/uL 4.4-11.0 [facility] White blood cell countOrdere d By: Pardeep Naranoj on 12-04-2024 Urine WBC 0-5 SEEN /hpf 0-5 [facility] [place] White blood cell count 0-5 SEEN /hpf 0-5 [facility] [place] Surgery Visit Reporton 11-19 Surgery Visit Report [facility] [address] [place] [address] OFFICE VISIT Date of Service: 11/19/24 MR#: [id number] Acct: [id number] Name: GERMANIA DONIS Rep #: [id number] : 1945 Provider: Dr. Shelly louise MD Age/Sex: 79/F Location: [facility] Status: Signed Intake Vital Signs 11/04/24 06:19 Height 5 ft 5 in Intake Visit Reasons: HERNIA 3-13 Chief Complaint: hernia 3-13 Allergies No Known Allergies Allergy (Verified 11/19/24 10:13) Medications ???Medication ???Instructions ???Recorded ???Confirmed ???Type alendronate 35 mg tablet 35 mg PO QWEEK 09/27/24 11/04/24 H istory atorvastatin 80 mg tablet 80 mg PO QDAY 09/27/24 11/04/24 Hi story baclofen 10 mg tablet 10 mg PO QDAY 09/27/24 11/04/24 Hi story calcium carbonate 500 mg PO QDAY 09/27/24 11/04/24 H istory levothyroxine 100 mcg capsule 100 mcg PO QDAY 09/27/24 11/04/24 History gslotzze-iamgshnv-kvic c acid 240 1 tab PO DAILY 09/27/24 11/04/24 H istory mcg-vit K1 150 mcg-herb 357 tablet (Alive Women's 50 Plus Ultra Multivitamin) vitamins A,C,B-wjxg-khyeuu 4,296 1 cap PO BID 09/27/24 11/04/24 His tory mcg-226 mg-90 mg capsule (PreserVision AREDS) zolpidem 10 mg tablet 10 mg PO QHS 09/27/24 11/04/24 His tory Have you fallen in the past year?: No Subjective Details: 79-year-old female presents status post umbilical hernia repair with mesh. Patient is doing well denies any pain. Patient is tolerating diet having bowel function. Objective Details: Abdomen: Incision healing well clean dry and intact, nontender, no peritoneal signs Coding Level of Care Code Global Post Op Diagnoses S/P umbilical hernia repair, follow-up exam Z09 [facility] Medical History (Updated 11/19/24 @ 10:14 by Milli Dhaliwal LPN) Umbilical hernia Wears glasses Wears partial dentures Wears dentures Depression Cervical stenosis of spine Arthritis Low iron High cholesterol Non-smoker Shortness of breath on exertion History of echocardiogram History of stress test Thyroid disease Heart murmur Surgical History (Updated 11/19/24 @ 10:14 by Milli Dhaliwal LPN) S/P umbilical hernia repair, follow-up exam History of hysterectomy Previous back surgery Family History (Updated 09/27/24 @ 14:13 by Germania Mathur) Sister Diabetes Social History (Updated 09/27/24 @ 14:13 by Germania Mathur) Smoking Status: Never smoker alcohol intake: never substance use type: does not use Assessment and Plan (No Qualifiers) Assessment and Plan (1) S/P umbilical hernia repair, follow-up exam: Status: Acute Plan The patient is doing well tolerate diet having bowel function. Patient's incisions healing well. Follow-up as needed. Patient is agreeable plan. Shelly Leonard M.D. Pager: [phone] [facility] [address] [place] [address], [address] [place] [address] Office: [phone] 11/22/24 0756 Date hSelly Leonard [facility] Signature: Date (if applicable) CC: Dr. Sowmya Cabrera MD Normal [facility] [place] Discharge Instructionon 10-23 Discharge Instruction [facility] Medical Records Department [address] [place] [address] Instructions for Home/Discharge Instructions 11/04/24 0808 MR#: [id number] Acct: [id number] Name: GERMANIA DONIS Rep #: [id number] : 1945 79 From: Shelly Leonard MD PCP: Dr. Sowmya Cabrera MD Status:[facility] Discharge Instructions Diet Discharge Diet: Light diet - advance as tolerated Activity May shower in (days): 5 (Keep umbilical dressing clean dry and intact for 5 days. Okay to tape off with a Ziploc bag to shower. Or lower shower and upper sponge bath.) Lifting Restrictions: no lifting >20 lbs x 2 wks, no strenuous exercise for 4 wks Additional Activity Instructions:: - Dressing / Incision Call your doctor if your incision/area has: Continuous Slow Oozing, Sudden Increased Bleeding, Increased Pain/ Swelling, Increased Redness, Foul Smelling Discharge and Swelling at the incision site Call your doctor if you observe: Fever of 101 or Higher Remove Dressing in: 5 days (After 5 days okay to remove surgical dressing. Place cotton ball or rolled up gauze in bellybutton and retape daily for 2 more days.) Cleanse incision/area with: Do not get Incision Wet (for 5 days) Additional Dressing/Incision Instructions:: Steri-Strips will fall off in 7 to 10 days, if they do not fall off okay to remove after 10 days. Follow Up Care Please Follow Up With: Shelly Leonard MD When: Call the office for a follow-up appointment 2 weeks; after 5 PM and on the weekends call [phone] with any concerns. Test Results: Test results from this visit will be discussed in further detail at your follow-up appointment, if applicable. Discharge Plan Admission Attending Provider: Shelly Leonard Primary Care Provider: Sowmya Cabrera Additional Instructions / Restrictions: Okay to take ibuprofen 400-600 mg PO q6hr PRN and Tylenol 650 to 1000 mg p.o. every 6 hours as needed along with the oxycodone. Take all pain meds with food. Oxycodone can cause constipation recommend taking daily stool softener (i.e. Colace/docusate) while taking the pain meds. Recommend starting some MiraLAX in 1 to 2 days if no bowel movement. If still no bowel movement the following day recommend taking additional MiraLAX versus magnesium citrate half the bottle and waiting 4-6 hours if still no results take the other half the bottle. Print Language: South Sudanese Discharge Orders/Prescriptions Prescriptions: New oxycodone 5 mg capsule 5 mg PO Q6H PRN (Reason: pain) 3 Days Qty: 10 0RF Continued levothyroxine 100 mcg capsule 100 mcg PO QDAY atorvastatin 80 mg tablet 80 mg PO QDAY zolpidem 10 mg tablet 10 mg PO QHS baclofen 10 mg tablet 10 mg PO QDAY [facility]ision AREDS 4,296 mcg-226 mg-90 mg capsule 1 cap PO BID calcium carbonate 500 mg calcium (1,250 mg) tablet 500 mg PO QDAY Alive Women's 50 Plus Ultra MV 240-150 mcg tablet 1 tab PO DAILY alendronate 35 mg tablet 35 mg PO QWEEK Other Ambulatory Orders: 12 Lead EKG (Routine) Location: None Selected Ordered By: Dr. Tito Dexter Referrals / Follow Up: Sowmya Cabrera MD [Primary Care Provider] - Disposition Disposition (needs filled in before D/C Order can be placed): Home, Self Care 11/04/24 0810 Shelly Leonard MD CC: Dr. Sowmya Cabrera MD Signed Normal [facility] H AND P Exam - Surgicalon H&P Exam - Surgical [facility] Medical Records Department [address] [place] [address] H P Exam - Surgical 11/04/24 0717 MR#: [id number] Acct: [id number] Name: GERMANIA DONIS Rep #: [id number] : 1945 79 From: Shelly Leonard MD PCP: Dr. Sowmya Cabrera MD Status:[facility] Location: [place] [address] HPI - General General Date of Service: 11/04/24 HPI Narrative GERMANIA DONIS, is a 79 F who presents for umbilical hernia pair with possible mesh. Patient still been having pain at her umbilicus. Patient states she did have a fever last night but no other symptoms this morning does not have any fevers or symptoms as well. 09/27/24 HPI HPI: 79-year-old female presents due to umbilical hernia. Patient states she has had this for about 10 months had severe discomfort twice more recently. Patient is interested in having it repaired. Patient denies any abdominal surgeries. [facility] Medical History Wears glasses Wears partial dentures Wears dentures Depression Cervical stenosis of spine Arthritis Low iron High cholesterol Non-smoker Shortness of breath on exertion History of echocardiogram History of stress test Thyroid disease Heart murmur Home Medications ???Medication ???Instructions ???Recorded ???Last Taken ???Type alendronate 35 mg tablet 35 mg PO QWEEK 09/27/24 10/31/24 H istory atorvastatin 80 mg tablet 80 mg PO QDAY 09/27/24 11/03/24 Hi story baclofen 10 mg tablet 10 mg PO QDAY 09/27/24 11/03/24 Hi story calcium carbonate 500 mg PO QDAY 09/27/24 11/03/24 H istory levothyroxine 100 mcg capsule 100 mcg PO QDAY 09/27/24 11/03/24 History yvpkwclp-qjmrhbgm-pbop c acid 240 1 tab PO DAILY 09/27/24 11/03/24 H istory mcg-vit K1 150 mcg-herb 357 tablet (Alive Women's 50 Plus Ultra Multivitamin) vitamins A,C,J-qqlu-gqnmnu 4,296 1 cap PO BID 09/27/24 11/03/24 His tory mcg-226 mg-90 mg capsule (PreserVision AREDS) zolpidem 10 mg tablet 10 mg PO QHS 09/27/24 11/03/24 His tory Allergy/AdvReac Type Severity Reaction Status Date / Time No Known Allergies Allergy Verified 11/04/24 06:15 Family History (Updated 09/27/24 @ 14:13 by Germania Mathur) Sister Diabetes Surgical History History of hysterectomy Previous back surgery Social History (Updated 09/27/24 @ 14:13 by Germania Mathur) Smoking Status: Never smoker alcohol intake: never substance use type: does not use Vital Signs Vital Signs Vital Signs: 11/04/24 06:19 11/04/24 06:19 11/04/24 06:41 Temperature 98 F 98 F Temperature Source Temporal Pulse Rate 82 82 Respiratory Rate 16 16 Respiratory Pattern Normal Blood Pressure 93/62 93/62 Blood Pressure Mean 72 Blood Pressure Source Monitor Blood Pressure Position Semi-Fowlers Blood Pressure Location Right Arm Pulse Ox 96 96 Oxygen Delivery Method Room Air Room Air Weight Weight: 141 lb 8.588 oz Body Mass Index (BMI) 23.5 Physical Exam Const alert, oriented x3 and no apparent distress HEENT normocephalic and head/scalp atraumatic Resp normal respiratory effort Cardio regular rate GI soft to palpation; Negative for non-distended GI Narrative: Tender at umbilicus, umbilical hernia Palpation: Negative for guarding Extremity no clubbing, cyanosis or edema Skin no rashes or lesions noted Neuro CN's II-XII intact bilaterally Psych mental status grossly normal Assessment Plan Assessment/Plan (1) Umbilical hernia: PLAN: Plan Plan to do an umbilical hernia repair with possible mesh. Reviewed the procedure with the patient including the risks, including but not limited to infection, bleeding, injury to the small bowel, and recurrence. Patient no further questions time. Shelly Leonard M.D. Pager: [phone] [facility] [address] [place] [address] [place] [address] Office: [phone] 11/04/24 0719 Cosigner Signature (if applicable): CC: Dr. Sowmya Cabrera MD; Dr. Shelly Leonard MD Signed Normal [facility] MR/POSTOP.Tk 11-04-2024 MR/POSTOP.[facility] Medical Records Department [address] [place] [address] Anesthesia Postop Eval I 11/04/24 0833 MR#: [id number] Acct: [id number] Name: GERMANIA DONIS Rep #: [id number] : 1945 79 From: Cyrus Leung CRNA PCP: Dr. Sowmya Cabrera MD Status:REG [facility] Y Race: C Location: [place] [address] Anesthesia: Postop Eval I Current Vital Signs Temperature: 98.4 F Pulse Rate: 76 Blood Pressure: 86/53 Respiratory Rate: 18 Pulse Ox: 98 Oxygen Delivery Method: Room Air Assessment Airway patent: Yes Spontaneous unlabored respirations: Yes nausea: No Vomiting: No Anesthesia Complication: No Fluid Hydration Crystalloid volume administer (ml): 1,000 Total IV fluid infused: 1,000 Progress Note Anesthesia document: Postop Eval 1 completed: Yes 11/04/24939 Date Cyrus Leung JUNIOR COPYWRITER Cosigner Signature: Date CC: Signed Normal [facility] MR/[id number] 11-04-2024 /[facility] Medical Records Department [address] [place] [address] Anesthesia Postop Eval II 11/04/24 1122 MR#: [id number] Acct: [id number] Name: GERMANIA DONIS Rep #: [id number] : 1945 79 From: Man Link MD PCP: Dr. Sowmya Cabrera MD Status:[facility] Y Race: C Location: [facility] Anesthesia Postop Eval I Sum Postop Eval Completion status Anesthesia document: Postop Eval 1 completed: Yes Anesthesia Postop Eval I Summary Anesthesia Postop Eval I Summary: Anesthesia Postop Eval I: Assessment Summary Airway patent Yes 11/04/24 09:40 JUNIOR [email or web address] Spontaneous unlabored Yes 11/04/24 09:40 JUNIOR [email or web address].ACAR respirations Mental status nausea No 11/04/24 09:40 JUNIOR [email or web address].ACAR Vomiting No 11/04/24 09:40 JUNIOR [email or web address].ACAR Anesthesia Postop Eval I: Fluid Summary Crystalloid volume administer 1,000 11/04/24 09:40 JUNIOR [email or web address].ACAR (ml) Colloids volume administered ( ml) Blood Product volume administered (ml) Total IV fluid infused 1,000 11/04/24 09:40 JUNIOR [email or web address].ACAR Anesthesia Postop Eval I: Summary Notes Anesthesia Complication No 11/04/24 09:40 JUNIOR [email or web address].ACAR Anesthesia Complication Comment: Post-operative progress note Anesthesia: Postop Eval II Evaluation Mental status: Awake Pain Level: 0 nausea: No Vomiting: No Complications Anesthesia Complication: No 11/04/24 1123 Date Man Jain Signature: Date CC: Signed Normal [facility] Operative Reporton 5 Operative Report [facility] Medical Records Department [address] [place] [address] Operative Report 11/04/24 0805 MR#: [id number] Acct: [id number] Name: GERMANIA DONIS Rep #: [id number] : 1945 79 From: Shelly Leonard MD PCP: Dr. Sowmya Cabrera MD Status:[facility] Location: [place] [address] Operative Report (Standard) Operative Information Date of Procedure: 11/04/24 Pre-Operative Diagnosis: Umbilical hernia Post-Operative Diagnosis: Same Surgery/Procedure Performed: Umbilical hernia repair with mesh train starter: Yes Marketing Operations Associate: Timoteo Ruiz Tasks completed by medical billing assistant: Opening closing Type of Anesthesia: General/Supplemental RN Documented Start/Stop Times: Operation Date: 11/04/24 07:30 Case Time Into Pre-Op 11/04/24 05:40 Out of Pre-Op 11/04/24 07:18 Anesthesia Start 11/04/24 07:25 Into Room 11/04/24 07:25 Procedure Start 11/04/24 07:45 Procedure Start Time: 07:45 Procedure Stop Time: 08:12 Select all DRAINS/GRAFTS/IMPLANTS that apply: Prosthetic device Prosthetic device details: Ventralex ST hernia patch 4.3 cm in diameter, Lot [id number] ref [id number] Special Medications: Ancef 2 g IV x 1 Estimated Blood Loss: < 10 cc Specimen collected: No Description of surgery: Patient was brought into the room placed supine on the operating table. Correct patient, procedure, site, positioning, special, was verified prior to procedure. General anesthesia was induced. The abdomen was prepped draped in usual sterile fashion. A curvilinear incision was made below the umbilicus with a 15 blade scalpel. This was deepened with electrocautery. A hemostat was used to go around the stalk of the umbilicus and Metzenbaum scissors was used to carefully divide the hernia sac from the skin of the umbilicus. The fascia around the hernia defect was cleared and the hernia defect measured 1.4 cm x [address] hernia patch 4.3 cm was selected. This was secured laterally at its tails with 0 Nurolon horizontal mattress suture. The hernia defect was closed with a tpllqg-yb-zxdkh 0 Nurolon. The wound was irrigated with saline. Hemostasis was assured. The skin of the umbilicus was secured to the fascia using 3-0 Vicryl suture interrupted. The incision was closed with 3-0 Vicryl subdermal interrupted sutures and the skin was closed with interrupted 4-0 Monocryl sutures. Steri-Strips and Tegaderm and OpSite were placed over the incision once sterile cotton balls were placed in the umbilicus. Patient was extubated. Patient tolerated procedure well and was taken to the postanesthesia care unit in stable condition. Surgical Findings: See operative report Complications Complications: No 11/04/24 0815 Cosigner Signature (if applicable): CC: Dr. Sowmya Cabrera MD; Dr. Shelly Leonard MD Signed Normal [facility] TSH DL <= 0.005 mIU/L QnOrde red By: Tito Dexter on 10-28-2024 Thyroid Stimulating Hormone (TSH) 2.500 uIU/mL 0.300-4.200 [facility] TSH Qn 2.500 uIU/mL 0.300-4.200 [facility] Thyroid Stim Hormone (TSH)on 10-28-2024 TSH 2.500 uIU/mL Normal 0.300-4.200 [facility] Comment on above: Performed By: #### L [phone] ####[facility] [address] [place], [place], [address] Spine Cervical (Routine)on 0 10-04-2024 Spine Cervical (Routine) [facility] Imaging Services [address] [place] [address] Spine Cervical (Routine) MR#: [id number] Acct: [id number] Name: GERMANIA DONIS Rep #: [id number] : 1945 F 79 From: [facility] PCP: Dr. Sowmya Cabrera MD Status: REG CLI Study: Spine Cervical (Routine) Date of Exam: Exam# [id number] Ordering Dr: Sowmya Cabrera PROCEDURE: SPINE CERVICAL (ROUTINE) REASON FOR EXAM: Neck pain. Tingling. TECHNIQUE: Noncontrast cervical spine MRI. COMPARISON: Cervical spine x-ray from 07/20/2024. FINDINGS: Cervical vertebral bodies maintain a normal height. There is straightening of the cervical lordosis. There is diminished signal intensity involving the discs throughout the cervical spine relating to degenerative disc disease. Multilevel disc space narrowing with endplate spurring is identified which is mostly on a severe basis and greatest from C4-C7. No acute fracture or subluxation is identified. Cervical spinal cord demonstrates a normal signal intensity and morphology. Cerebellar tonsils are within normal range. Paraspinous musculature is unremarkable. C2-3: Mild disc osteophyte complex with no significant central canal stenosis or neural foraminal narrowing. Facet arthropathy is identified. C3-4: Disc osteophyte complex results in flattening of the ventral thecal sac and abutment of the ventral spinal cord with mild central canal stenosis. Facet/uncovertebral changes are identified with no significant neural foraminal narrowing. C4-5: Disc osteophyte complex results in flattening of the ventral thecal sac and mild mass effect on the ventral spinal cord with moderate to severe central canal stenosis. Facet/uncovertebral changes are present with severe left and qtwu-dc-qcimdgaj right neural foraminal narrowing. 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 Facet/uncovertebral changes are present with severe left and bpej-jk-chqsifpk right neural foraminal narrowing. C6-7: Disc osteophyte complex results in mass effect on the ventral spinal cord with severe central canal stenosis. Facet/uncovertebral changes are present severe left neural foraminal narrowing. Right neural foramina is patent. C7-T1: Grade 1 anterolisthesis with disc osteophyte complex results in moderate central canal stenosis. Facet/uncovertebral changes are present with moderate bilateral neural foraminal narrowing. MRI/Spine Cervical (Routine) IMPRESSION: 1. Multilevel degenerative disc disease and spondylosis with severe central canal stenosis from C5- C7, moderate to severe central canal stenosis at C4-C5, moderate central canal stenosis at C7-T1, and mild central canal stenosis at C3-C4. Multilevel varying degrees of neural foraminal narrowing are identified as above. 2. No abnormal cord signal. Reading Location: [place] CC: Dr. Sowmya Cabrera MD Director Of Education: Signed Normal [facility] Surgery Visit Reporton 09-27 Surgery Visit Report [facility] [address] [place] [address]. [address] [place] [address] OFFICE VISIT Date of Service: 09/27/24 MR#: [id number] Acct: [id number] Name: GERMANIA DONIS Rep #: [id number] : 1945 Provider: Dr. Shelly louise MD Age/Sex: 79/F Location: [facility] Status: Signed Intake Vital Signs 09/07/20 14:15 09/27/24 14:13 Height 5 ft 0.5 in 5 ft 5 in Weight: 143 lb BMI 23.8 BP 80/49 L Blood Pressure Location Lt brachial Position Sitting Respiration 17 Pulse 87 Pulse Source Monitor Temp 97.3 F L Temp Source Temporal Pulse Oximetry (%) 94 Oxygen Delivery Method room air Intake Visit Reasons: UMBILICAL HERNIA Chief Complaint: umbilical hernia Is patient in pain?: No Allergies No Known Allergies Allergy (Verified 09/27/24 14:14) Medications ???Medication ???Instructions ???Recorded ???Confirmed ???Type alendronate 35 mg tablet 35 mg PO QWEEK 09/27/24 09/27/24 H istory atorvastatin 80 mg tablet 80 mg PO QDAY 09/27/24 09/27/24 Hi story baclofen 10 mg tablet 10 mg PO QDAY 09/27/24 09/27/24 Hi story calcium carbonate 500 mg PO QDAY 09/27/24 09/27/24 H istory levothyroxine 100 mcg capsule 100 mcg PO QDAY 09/27/24 09/27/24 History juoxpjrh-xkdvccmx-doeu c acid 240 tab PO 09/27/24 09/27/24 History mcg-vit K1 150 mcg-herb 357 tablet (Alive Women's 50 Plus Ultra Multivitamin) valacyclovir 1 gram tablet 1,000 mg PO TID 09/27/24 09/27/24 History vitamins A,C,K-qivm-defdrp 4,296 1 cap PO BID 09/27/24 09/27/24 His tory mcg-226 mg-90 mg capsule (PreserVision AREDS) zolpidem 10 mg tablet 10 mg PO QHS 09/27/24 09/27/24 His tory Have you fallen in the past year?: No PFSH Medical History (Updated 09/27/24 @ 14:12 by Germania Mathur) Thyroid disease Heart murmur Surgical History (Updated 09/27/24 @ 14:12 by Germania Mathur) Previous back surgery Family History (Updated 09/27/24 @ 14:13 by Germania Mathur) Sister Diabetes Social History (Updated 09/27/24 @ 14:13 by Germania Mathur) Smoking Status: Never smoker alcohol intake: never substance use type: does not use HPI HPI HPI: 79-year-old female presents due to umbilical hernia. Patient states she has had this for about 10 months had severe discomfort twice more recently. Patient is interested in having it repaired. Patient denies any abdominal surgeries. ROS General General: No weight change, appetite, fatigue, colon cancer, breast cancer or weakness HEENT HEENT: Yes eye surgery; No difficulty swallowing, eye injury, swollen glands or hoarseness Endo Endocrine: Yes thyroid disease; No diabetes mellitus, thyroid cancer, Hair loss, heat intolerance or cold intolerance Skin Skin: No rash or changing moles Musc Musculoskeletal: Yes back problems; No arthritis, rheumatoid arthritis, gout or joint pain Cardio Cardiovascular: Yes murmur; No pacemaker, heart disease, atrial fibrillation, high blood pressure, heart attack, heart stent, palpitations, shortness of breat with exertion or chest pain Psych Psychiatric: Yes depression; No anxiety or hearing voices Resp Respiratory: No shortness of breath, No sleep apnea, No cough, No COPD, No asthma, No emphysema and No wheezing Gastro Gastrointestinal: Yes abdominal pain, No nausea or vomiting, No diarrhea, No constipation, No blood in stool, No acid reflux, No hemorrhoids, No ulcers, No gallbladder problem and No black,tarry stools Jose Guadalupe Hematologic: No blood thinners, No blood disorders, No bleeding, No anemia and No blood clots Neuro Neurologic: No system reviewed and no additional complaints, except as documented, No as per HPI, No abnormal gait, No abnormal hearing, No abnormal movements, No abnormal speech, No behavioral changes, No burning sensations, No confusion, No convulsions, No disequilibrium, No dizziness, No localized weakness, No frequent falls, No headache(s), No lack of coordination, No loss of vision, No memory loss, No numbness, No other visual disturbances, No radicular pain, No restless legs, No sensory deficit, No syncope, No tingling, No tremor(s), No weakness and No other Exam Const General: cooperative, healthy appearing, comfortable and no acute distress [facility] Head: normocephalic and atraumatic Neck Neck: supple Resp Effort Inspection: normal respiratory effort Cardio Rate: regular rate GI Inspection: non-distended Palpation: soft, hernia (Umbilical reducible less than centimeter) and nontender Skin General: no rashes or lesions noted Neuro General: CN's II-XI intact bilaterally Extrem General: normal to inspection Psych Mental Status: mental status grossly normal Attitude: cooperative Assessment and Plan Assessment and Plan (1) Umbilical hernia: Status: Acute (more content not included)... Normal [facility] Re-Evaluation - PT (1)on Re-Evaluation - PT (1) [facility] Physical Therapy [address] [place] [address] / REEVALUATION / MEDICARE RECERTIFICATION PHYSICAL THERAPY MR#: [id number] Acct: [id number] Name: GERMANIA DONIS Rep #: [id number] : 1945 79 From: Sary Mejia PT, Cert. MDT Referring Dr.: Dr. Lex Rhoades MD Status:REG RCR Insurance: MEDICARE PART A B [facility] Re-Evaluation Intro: Lex Rhoades MD, It has been my pleasure to treat GERMANIA DONIS over the last 7 visits for JERALD SHLD PAIN. Please see the progress note below for an update on the physical therapy plan of care! Subjective Subjective: PATIENT REPORTS HER SHLD PAIN HASN'T BEEN BAD IN THE LAST FEW DAYS. SHE REPORTS LESS PAIN AT NIGHT. SHE ALSO REPORTS LESS HEAD, NECK AND SHLD PAIN DURING THE DAY. SHE RELATES HER IMPROVEMENT TO PHYSICAL THERPAY EXERCISES. TAKING AMBIAN THOUGH - STARTED TAKING IT AGAIN ABOUT A WK AGO. SHE RELATES HER IMPROVEMENT TO THE THERAPY. SHE PLANS TO CONTINUE HER HEP UNTIL HER TRANG'T WITH DR. CABRERA. STATES SHE FLARED UP HER LOW BACK BENDING OVER HELPING HER DAUGHTER CLEAN THE TRACK OF HER SLIDING DOOR - I SHOULDN'T HAVE DONE IT. Objective Objective/Function: PATIENT WAS SEEN TODAY FOR RE-ASSESSMENT OF PROGRESS TOWARD THE SET PT GOALS AND THE NEED FOR FURTHER PHYSICAL THERAPY VS READINESS FOR DISCHARGE. THIS PATIENT HAS HAD SOME IMPROVEMENT IN HER SUBJECTIVE REPORTS OF HEAD, NECK AND SHLD PAIN SINCE STARTING PT BUT SHE STILL HAS ROM AND STRENGTH DEFICITS BELOW. SHE IS INDEP WITH A HEP AND PHYSICIAN RE-ASSESSMENT IS RECOMMENDED. PATIENT IS AGREEABLE. UPON EXAM TODAY: ROM deficit: PATIENT WITH FULL JERALD SHLD ELEVATION TODAY. C/O L SHLD PAIN WITH REACHING. Motor deficit: R SH FLEX 4/5, L 4-/5, ABD R 4/5 L 3+/5, IR R 5/5 L 4/5, ER R 4/5 L 3+/5. R ELBOW 5/5 L 5/5. 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 Dural Signs: NEGATIVE JERALD UE'S. Cervical Mvmt Loss: Flex: NIL Pro: NIL - INCREASES L NECK - NW Ext: MIN Ret: MOD RSB: MOD - INCREASES L NECK - NW LSB: MIN - INCREASES R NECK PAIN - NW R Rot: MIN - NE L Rot: MIN - NE Postural strength: POOR Palpation: MILD TENDERNESS L BICIPITATL [place]. Plan Plan Plan: HOLD PT UNTIL PHYSICIAN FOLLOW UP. Balance/Gait/Functiona l tests Balance/Special Test Scores Quick DASH Score: 27.2725 Goals Goals Goal 1:: DECREASE C/O NECK AND JERALD SHLD PAIN BY AT LEAST 75% TO EASE ADL AND SLEEP FUNCTION Goal Time Frame: 4-6 Weeks Goal Progress: Progressing Goal 2:: IMPROVE REACHING, LIFTING, PUSHING, PULLING, CLEANING, DRESSING AND SLEEP FUNCTION Goal Time Frame: 4-6 Weeks Goal Progress: Progressing Goal 3:: INSTRUCT IN PROPHYLAXIS Goal Time Frame: 4-6 Weeks Goal Progress: Progressing Anticipated Interventions Anticipated Interventions Patient/Client Instruction: Educate patient on: Condition, Plan of Care and Risk Factors For the Purpose of:: To improve self management Therapeutic Exercise to Include: Strength training, Body mechanics, Postural training, Flexibilty training, Neuromotor development and Scapular Strength/Stabilization For the Purpose of:: To decrease pain, To decrease swelling/inflammation, To increase ROM, To improve muscle performance and motor function, To improve ability to perform ADL's, To increase tolerance to activity/condition/pos ition, To improve ability of physical actions for home/community/work/le isure and To improve self management Cryotherapy (ice pack, ice massage): Yes Thermo therapy (hot pack): Yes Ultrasound (thermal/non thermal): Yes For the Purpose of:: To decrease pain, To decrease swelling/inflammation and To improve nutrient delivery to tissue Re-Evaluation Ending Re-evaluation ending: Please do not hesitate to contact me at [phone] by phone or if you have questions or concerns regarding this new plan of care! Sincerely, Sary Mejia, PT, Cert MDT 08/12/24 1204 CC: Dr. Lex Rhoades MD; Dr. Sowmya Cabrera MD ALBARO Signed For Medicare only, by signing this I certify the plan of care. Physicians Signature Date Normal [facility] ANTINUCLEAR ANTIBODIES DIREC Ton 07-23-2024 MARYBETH,DIRECT Negative Normal Negative [facility] Comment on above: Order Comment: Order Date: 07/20/24Order Info: [id number] - MARYBETH Result Comment: Perf ormed at: [facility] [address] [place], [place] [id number] Battery Technician: Wilder Araya PhD, Phone: [phone] Performed By: #### L 503.6550, L500.4050, L501.5200, L3100.5475, L100.0100, L503.6150, L503.0105, L501.9520, L101.9900 ####[facility] [id number] [place], [place], [id number] MARYBETH serumOrdered By: Yogi Cabrera on 07-20-2024 Anti-Nuclear Antibody Screen Negative Negative [facility] Comment on above: Performed at: [facility] [id number] [place], [place] [id number] Director: Wilder Araya PhD, Phone: [phone] Absolute neutrophil countOrd ered By: Sowmya Cabrera on 07-20-2024 Neutrophils (Bld) [#/Vol] 3.2 10*3/uL 2.0-7.7 [facility] Albumin to globulin ratioOrd ered By: Sowmya Cabrera on 07-20-2024 Albumin/Globulin [Mass ratio] 1.1 {ratio} 0.9-2.4 [facility] Basophil percentageOrdered B y: Sowmya Cabrera on 07-20-2024 Basophils/100 WBC (Bld) 0.4 % 0-1 [facility] Bilirubin, totalOrdered By: Sowmya Cabrera on 07-20-2024 Bilirubin [Mass/Vol] 0.60 mg/dL 0.20-1.00 [facility] Comment on above: For patients on eltr ombopag therapy, use of Dimension S [place] TBIL is not recommended. Blood urea nitrogen (BUN)/cr eatinine ratioOrdered By: Sowmya Cabrera on 07-20-2024 Urea nitrogen/Creatinine [Mass ratio] 22.2 mg/mg High - [facility] CBC W/Diff, Automatedon 06-26 Absolute Lymph 0.91 X10 3/uL Normal 0.83-4.51 [facility] Comment on above: Order Comment: Order Date: 07/20/24Order Info: 183-08 - CBCDOrder Info: [id number] - SED Performed By: #### L 503.6550, L500.4050, L501.5200, L3100.5475, L100.0100, L503.6150, L503.0105, L501.9520, L101.9900 ####[facility] [address] [place], [address] Absolute Neut 3.2 X10 3/uL Normal 2.0-7.7 [facility] Comment on above: Order Comment: Order Date: 07/20/24Order Info: 183-08 - CBCDOrder Info: [id number] - SED Performed By: #### L 503.6550, L500.4050, L501.5200, L3100.5475, L100.0100, L503.6150, L503.0105, L501.9520, L101.9900 ####[facility] [address] [place], [address] Basophils/100 WBC (Bld) 0.4 % Normal 0-1 [facility] Comment on above: Order Comment: Order Date: 07/20/24Order Info: 183-08 - CBCDOrder Info: [id number] - SED Performed By: #### L 503.6550, L500.4050, L501.5200, L3100.5475, L100.0100, L503.6150, L503.0105, L501.9520, L101.9900 ####[facility] [address] [place], [address] Eosinophils/100 WBC (Bld) 1.3 % Normal 0-5 [facility] Comment on above: Order Comment: Order Date: 07/20/24Order Info: 183-08 - CBCDOrder Info: [id number] - SED Performed By: #### L 503.6550, L500.4050, L501.5200, L3100.5475, L100.0100, L503.6150, L503.0105, L501.9520, L101.9900 ####[facility] [address] [place], [address] Erythrocyte distribution width (RBC) [Ratio] 13.4 % Normal 11.6-14.6 [facility] Comment on above: Order Comment: Order Date: 07/20/24Order Info: 183-08 - CBCDOrder Info: [id number] - SED Performed By: #### L 503.6550, L500.4050, L501.5200, L3100.5475, L100.0100, L503.6150, L503.0105, L501.9520, L101.9900 ####[facility] [address] [place], [place], [phone]([phone] Hematocrit (Bld) [Volume fraction] 39.4 % Normal 37-47 [facility] Comment on above: Order Comment: Order Date: 07/20/24Order Info: 183-08 - CBCDOrder Info: [id number] - SED Performed By: #### L 503.6550, L500.4050, L501.5200, L3100.5475, L100.0100, L503.6150, L503.0105, L501.9520, L101.9900 ####[facility] [address] [place], [address] Hemoglobin (Bld) [Mass/Vol] 12.8 g/dL Normal 12.0-15.0 [facility] Comment on above: Order Comment: Order Date: 07/20/24Order Info: 183-08 - CBCDOrder Info: [id number] - SED Performed By: #### L 503.6550, L500.4050, L501.5200, L3100.5475, L100.0100, L503.6150, L503.0105, L501.9520, L101.9900 ####[facility] [address] [place], [address] IG% 0.400 Normal 0.0-0.9 [facility] Comment on above: Order Comment: Order Date: 07/20/24Order Info: 183-08 - CBCDOrder Info: [id number] - SED Result Comment: IG% - Immature Granulocytes (promyelocytes, myelocytes and metamyelocytes) > 1% indicates that a LEFT SHIFT is Present. Performed By: #### L 503.6550, L500.4050, L501.5200, L3100.5475, L100.0100, L503.6150, L503.0105, L501.9520, L101.9900 ####[facility] [address] [place], [address] Lymphocytes/100 WBC (Bld) 20.0 % Normal 19-41 [facility] Comment on above: Order Comment: Order Date: 07/20/24Order Info: 183-08 - CBCDOrder Info: [id number] - SED Performed By: #### L 503.6550, L500.4050, L501.5200, L3100.5475, L100.0100, L503.6150, L503.0105, L501.9520, L101.9900 ####[facility] [address] [place], [address] MCH (RBC) [Entitic mass] 30.2 pg Normal 27.0-32.0 [facility] Comment on above: Order Comment: Order Date: 07/20/24Order Info: 183-08 - CBCDOrder Info: [id number] - SED Performed By: #### L 503.6550, L500.4050, L501.5200, L3100.5475, L100.0100, L503.6150, L503.0105, L501.9520, L101.9900 ####[facility] [address] [place], [address] MCHC (RBC) [Mass/Vol] 32.5 g/dL Normal 32-36 [facility] Comment on above: Order Comment: Order Date: 07/20/24Order Info: 018- - CBCDOrder Info: [id number] - SED Performed By: #### L 503.6550, L500.4050, L501.5200, L3100.5475, L100.0100, L503.6150, L503.0105, L501.9520, L101.9900 ####[facility] [address] [place], [address] MCV (RBC) [Entitic vol] 92.9 fL Normal 81-99 [facility] Comment on above: Order Comment: Order Date: 07/20/24Order Info: 183-08 - CBCDOrder Info: [id number] - SED Performed By: #### L 503.6550, L500.4050, L501.5200, L3100.5475, L100.0100, L503.6150, L503.0105, L501.9520, L101.9900 ####[facility] [address] [place], [address] Monocytes/100 WBC (Bld) 8.1 % Normal 0-10 [facility] Comment on above: Order Comment: Order Date: 07/20/24Order Info: 018- - CBCDOrder Info: [id number] - SED Performed By: #### L 503.6550, L500.4050, L501.5200, L3100.5475, L100.0100, L503.6150, L503.0105, L501.9520, L101.9900 ####[facility] [address] [place], [address] Neutrophils/100 WBC (Bld) 69.8 % Normal 47-70 [facility] Comment on above: Order Comment: Order Date: 07/20/24Order Info: [id number] - CBCDOrder Info: [id number] - SED Performed By: #### L 503.6550, L500.4050, L501.5200, L3100.5475, L100.0100, L503.6150, L503.0105, L501.9520, L101.9900 ####[facility] [address] [place], [address] Nucleated RBC (Bld) [#/Vol] 0 10*3/uL Normal 0-5 [facility] Comment on above: Order Comment: Order Date: 07/20/24Order Info: 183-08 - CBCDOrder Info: [id number] - SED Performed By: #### L 503.6550, L500.4050, L501.5200, L3100.5475, L100.0100, L503.6150, L503.0105, L501.9520, L101.9900 ####[facility] [address] [place], [address] Platelet mean volume (Bld) [Entitic vol] 12.0 fL Normal 6.2-12.0 [facility] Comment on above: Order Comment: Order Date: 07/20/24Order Info: 183-08 - CBCDOrder Info: [id number] - SED Performed By: #### L 503.6550, L500.4050, L501.5200, L3100.5475, L100.0100, L503.6150, L503.0105, L501.9520, L101.9900 ####[facility] [address] [place], [address] Platelets (Bld) [#/Vol] 216 10*3/uL Normal 150-450 [facility] Comment on above: Order Comment: Order Date: 07/20/24Order Info: 183-08 - CBCDOrder Info: [id number] - SED Performed By: #### L 503.6550, L500.4050, L501.5200, L3100.5475, L100.0100, L503.6150, L503.0105, L501.9520, L101.9900 ####[facility] [address] [place], [address] RBC (Bld) [#/Vol] 4.24 10*6/uL Normal 4.2-5.4 [facility] Comment on above: Order Comment: Order Date: 07/20/24Order Info: 183-1 - CBCDOrder Info: [id number] - SED Performed By: #### L 503.6550, L500.4050, L501.5200, L3100.5475, L100.0100, L503.6150, L503.0105, L501.9520, L101.9900 ####[facility] [address] [place], [address] RDW SD 45.4 fl High 35.1-43.9 [facility] Comment on above: Order Comment: Order Date: 07/20/24Order Info: 183- - CBCDOrder Info: [id number] - SED Performed By: #### L 503.6550, L500.4050, L501.5200, L3100.5475, L100.0100, L503.6150, L503.0105, L501.9520, L101.9900 ####[facility] [address] [place], [address] WBC (Bld) [#/Vol] 4.6 10*3/uL Normal 4.4-11.0 [facility] Comment on above: Order Comment: Order Date: 07/20/24Order Info: 018-1 - CBCDOrder Info: [id number] - SED Performed By: #### L 503.6550, L500.4050, L501.5200, L3100.5475, L100.0100, L503.6150, L503.0105, L501.9520, L101.9900 ####[facility] [address] [place], [address] Carbon dioxide measurementOr dered By: Sowmya Cabrera on 07-20-2024 CO2 [Moles/Vol] 30.0 mmol/L 21.0-32.0 [facility] Cerv Spine 4 or 5 Viewson Cerv Spine 4 or 5 Views [facility] Imaging Services [address] [place] [address] Cerv Spine 4 or 5 Views MR#: [id number] Acct: [id number] Name: GERMANIA DONIS Rep #: [id number] : 1945 F 79 From: Katie Lara PCP: Dr. Sowmya Cabrera MD Status: [facility] Study: Cerv Spine 4 or 5 Views Date of Exam: 07/20/24 Exam# [id number] Ordering Dr: Sowmya Cabrera [id number] INDICATION: pain, bilateral shoulder pain EXAMINATION/TECHNIQUE: X-RAY - XR Spine Cervical 4 or 5 Views COMPARISON: Prior study dated: 10/10/2010 FINDINGS: The vertebral bodies are normal in height. No definite fracture demonstrated. Minimal anterior subluxation of C7 on T1. This was not clearly visualized on the prior which may be due to difference in the positioning. C1-2 alignment is maintained. Disc space narrowing with osteophytes most pronounced at C4-C6. Facet arthropathy at multiple levels, pronounced at C7-T1. Left neural foraminal encroachment at several levels due to the osteophytes, most pronounced at C5-6. Similar to prior. Prevertebral soft tissues are unremarkable. RAD/Cerv Spine 4 or 5 Views IMPRESSION: Extensive degenerative changes with degenerative discogenic disease and facet arthropathy. Minimal anterolisthesis at C7-T1 likely secondary to degenerative changes. Mild left neural foraminal encroachment mostly at C5-6. MRI may be helpful for further evaluation. Electronically Signed: Katie Dodson MD at 16:12 EST , CC: Dr. Sowmya Cabrera MD Director Of Education: Signed Normal [facility] Chloride measurementOrdered By: Sowmya Cabrera on 07-20-2024 Chloride [Moles/Vol] 108 mmol/L High 98-107 [facility] Comprehensive Metabolic Prof ilon 07-20-2024 Albumin [Mass/Vol] 3.7 g/dL Normal 3.2-5.0 [facility] Comment on above: Order Comment: Order Date: 07/20/24Order Info: 0786- - CMPOrder Info: - MGOrder Info: [id number] - TSHOrder Info: 2497-11 - FEOrder Info: [id number] - REHAN Performed By: #### L 503.6550, L500.4050, L501.5200, L3100.5475, L100.0100, L503.6150, L503.0105, L501.9520, L101.9900 ####[facility] [address] [place], [address] Albumin/Globulin [Mass ratio] 1.1 {ratio} Normal 0.9-2.4 [facility] Comment on above: Order Comment: Order Date: 07/20/24Order Info: 0786- - CMPOrder Info: - MGOrder Info: 3015-10 - TSHOrder Info: 2497-11 - FEOrder Info: 2275-11 - REHAN Performed By: #### L 503.6550, L500.4050, L501.5200, L3100.5475, L100.0100, L503.6150, L503.0105, L501.9520, L101.9900 ####[facility] [address] [place], [address] ALK P 96 U/L Normal 45-117 [facility] Comment on above: Order Comment: Order Date: 07/20/24Order Info: 07-1 - CMPOrder Info: [id number] - MGOrder Info: 3 - TSHOrder Info: [id number] - FEOrder Info: 2275-4 - REHAN Performed By: #### L 503.6550, L500.4050, L501.5200, L3100.5475, L100.0100, L503.6150, L503.0105, L501.9520, L101.9900 ####[facility] [address] [place], [address] ALT [Catalytic activity/Vol] 30 U/L Normal 13-56 [facility] Comment on above: Order Comment: Order Date: 07/20/24Order Info: 785-1 - CMPOrder Info: [id number] - MGOrder Info: 3 - TSHOrder Info: 2497-11 - FEOrder Info: 2275-11 - REHAN Performed By: #### L 503.6550, L500.4050, L501.5200, L3100.5475, L100.0100, L503.6150, L503.0105, L501.9520, L101.9900 ####[facility] [address] [place], [place], [phone]([phone] AST [Catalytic activity/Vol] 32 U/L Normal 15-37 [facility] Comment on above: Order Comment: Order Date: 07/20/24Order Info: 785-1 - CMPOrder Info: [id number] - MGOrder Info: 3 - TSHOrder Info: [id number] - FEOrder Info: 2275-4 - REHAN Performed By: #### L 503.6550, L500.4050, L501.5200, L3100.5475, L100.0100, L503.6150, L503.0105, L501.9520, L101.9900 ####[facility] [address] [place], [place], [phone](107) Bilirubin [Mass/Vol] 0.60 mg/dL Normal 0.20-1.00 [facility] Comment on above: Order Comment: Order Date: 07/20/24Order Info: 785-1 - CMPOrder Info: [id number] - MGOrder Info: 3015-10 - TSHOrder Info: 2497-11 - FEOrder Info: 2275-11 - REHAN Result Comment: For patients on eltrombopag therapy, use of Dimension S [place] TBIL is not recommended. Performed By: #### L 503.6550, L500.4050, L501.5200, L3100.5475, L100.0100, L503.6150, L503.0105, L501.9520, L101.9900 ####[facility] [address] [place], [place], [phone] BUN/CRE 22.2 RATIO High 10-20 [facility] Comment on above: Order Comment: Order Date: 07/20/24Order Info: 785-08 - CMPOrder Info: [id number] - MGOrder Info: 3015-10 - TSHOrder Info: 2497-11 - FEOrder Info: 2275-11 - REHAN Performed By: #### L 503.6550, L500.4050, L501.5200, L3100.5475, L100.0100, L503.6150, L503.0105, L501.9520, L101.9900 ####[facility] [address] [place], [place], [phone] CA,Total 9.3 mg/dL Normal 8.5-10.1 [facility] Comment on above: Order Comment: Order Date: 07/20/24Order Info: 785- - CMPOrder Info: [id number] - MGOrder Info: 3015-10 - TSHOrder Info: 2497-11 - FEOrder Info: 2275-11 - REHAN Performed By: #### L 503.6550, L500.4050, L501.5200, L3100.5475, L100.0100, L503.6150, L503.0105, L501.9520, L101.9900 ####[facility] [address] [place], [address] Chloride [Moles/Vol] 108 mmol/L High 98-107 [facility] Comment on above: Order Comment: Order Date: 07/20/24Order Info: 785-1 - CMPOrder Info: [id number] - MGOrder Info: 3 - TSHOrder Info: 2497-11 - FEOrder Info: 2275-11 - REHAN Performed By: #### L 503.6550, L500.4050, L501.5200, L3100.5475, L100.0100, L503.6150, L503.0105, L501.9520, L101.9900 ####[facility] [address] [place], [address] CO2 [Moles/Vol] 30.0 mmol/L Normal 21.0-32.0 [facility] Comment on above: Order Comment: Order Date: 07/20/24Order Info: 785-08 - CMPOrder Info: [id number] - MGOrder Info: 3015-10 - TSHOrder Info: 2497-11 - FEOrder Info: 2275-11 - REHAN Performed By: #### L 503.6550, L500.4050, L501.5200, L3100.5475, L100.0100, L503.6150, L503.0105, L501.9520, L101.9900 ####[facility] [address] [place], [address] Creatinine [Mass/Vol] 0.68 mg/dL Normal 0.55-1.02 [facility] Comment on above: Order Comment: Order Date: 07/20/24Order Info: 785-08 - CMPOrder Info: [id number] - MGOrder Info: 3 - TSHOrder Info: 2497-11 - FEOrder Info: 2275-11 - REHAN Result Comment: The validity of the calculated GFR GFRAA in patients over 70 years has not been determined. Clinical correlation is essential. Performed By: #### L 503.6550, L500.4050, L501.5200, L3100.5475, L100.0100, L503.6150, L503.0105, L501.9520, L101.9900 ####[facility] [address] [place], [place], [phone] EST GFR - AA 109 mL/min Normal >60 [facility] Comment on above: Order Comment: Order Date: 07/20/24Order Info: 785- - CMPOrder Info: - MGOrder Info: 3015-10 - TSHOrder Info: 2497-11 - FEOrder Info: 2275-11 - REHAN Result Comment: Afri can [place] GFR Calc Performed By: #### L 503.6550, L500.4050, L501.5200, L3100.5475, L100.0100, L503.6150, L503.0105, L501.9520, L101.9900 ####[facility] [address] [place], [place], [phone] GAP 3 Low 5-15 [facility] Comment on above: Order Comment: Order Date: 07/20/24Order Info: 785-08 - CMPOrder Info: - MGOrder Info: 3015-10 - TSHOrder Info: [id number] - FEOrder Info: 2275-11 - REHAN Performed By: #### L 503.6550, L500.4050, L501.5200, L3100.5475, L100.0100, L503.6150, L503.0105, L501.9520, L101.9900 ####[facility] [address] [place], [place], [phone] GFR/1.73 sq M.predicted among non-blacks MDRD (S/P/Bld) [Vol rate/Area] 90 mL/min/{1.73_m2} Normal >60 [facility] Comment on above: Order Comment: Order Date: 07/20/24Order Info: 785- - CMPOrder Info: - MGOrder Info: 3015-10 - TSHOrder Info: 2497-11 - FEOrder Info: 2275-11 - REHAN Result Comment: Non- GFR Calc Performed By: #### L 503.6550, L500.4050, L501.5200, L3100.5475, L100.0100, L503.6150, L503.0105, L501.9520, L101.9900 ####[facility] [address] [place], [address] Globulin (S) [Mass/Vol] 3.5 g/dL Normal 2.2-4.2 [facility] Comment on above: Order Comment: Order Date: 07/20/24Order Info: 785-08 - CMPOrder Info: - MGOrder Info: 3015-10 - TSHOrder Info: 2497-11 - FEOrder Info: 2275-11 - REHAN Performed By: #### L 503.6550, L500.4050, L501.5200, L3100.5475, L100.0100, L503.6150, L503.0105, L501.9520, L101.9900 ####[facility] [address] [place], [address] Glucose [Mass/Vol] 91 mg/dL Normal 74-106 [facility] Comment on above: Order Comment: Order Date: 07/20/24Order Info: 785-08 - CMPOrder Info: - MGOrder Info: 3015-10 - TSHOrder Info: 2497-11 - FEOrder Info: 2275-11 - REHAN Performed By: #### L 503.6550, L500.4050, L501.5200, L3100.5475, L100.0100, L503.6150, L503.0105, L501.9520, L101.9900 ####[facility] [address] [place], [address] Potassium [Moles/Vol] 3.7 mmol/L Normal 3.5-5.1 [facility] Comment on above: Order Comment: Order Date: 07/20/24Order Info: 07-1 - CMPOrder Info: [id number] - MGOrder Info: 3 - TSHOrder Info: [id number] - FEOrder Info: 2275-4 - REHAN Performed By: #### L 503.6550, L500.4050, L501.5200, L3100.5475, L100.0100, L503.6150, L503.0105, L501.9520, L101.9900 ####[facility] [address] [place], [address] Sodium [Moles/Vol] 141 mmol/L Normal 136-145 [facility] Comment on above: Order Comment: Order Date: 07/20/24Order Info: 785-08 - CMPOrder Info: [id number] - MGOrder Info: 3 - TSHOrder Info: 2497-11 - FEOrder Info: 2275-11 - REHAN Performed By: #### L 503.6550, L500.4050, L501.5200, L3100.5475, L100.0100, L503.6150, L503.0105, L501.9520, L101.9900 ####[facility] [address] [place], [place], [phone](688) T PROT 7.2 g/dL Normal 6.4-8.2 [facility] Comment on above: Order Comment: Order Date: 07/20/24Order Info: 07- - CMPOrder Info: [id number] - MGOrder Info: 3 - TSHOrder Info: 2494 - FEOrder Info: 227-4 - REHAN Performed By: #### L 503.6550, L500.4050, L501.5200, L3100.5475, L100.0100, L503.6150, L503.0105, L501.9520, L101.9900 ####[facility] [address] [place], [place], [phone](935) Urea nitrogen [Mass/Vol] 15 mg/dL Normal 7-18 [facility] Comment on above: Order Comment: Order Date: 07/20/24Order Info: 0786-1 - CMPOrder Info: [id number] - MGOrder Info: 3016-3 - TSHOrder Info: 2498-4 - FEOrder Info: 2276-4 - REHAN Performed By: #### L 503.6550, L500.4050, L501.5200, L3100.5475, L100.0100, L503.6150, L503.0105, L501.9520, L101.9900 ####[facility] [address] [place], [place], [phone] Eosinophil percentageOrdered By: Sowmya Cabrera on 07-20-2024 Eosinophils/100 WBC (Bld) 1.3 % 0-5 [facility] Erythrocyte Sed Rateon 07-20 SED RATE 20 mm/hr Normal 0-30 [facility] Comment on above: Order Comment: Order Date: 07/20/24Order Info: 0184-1 - CBCDOrder Info: [id number] - SED Performed By: #### L 503.6550, L500.4050, L501.5200, L3100.5475, L100.0100, L503.6150, L503.0105, L501.9520, L101.9900 ####[facility] [address] [place], [place], [phone] Erythrocyte distribution wid th ratioOrdered By: Sowmya Cabrera on 07-20-2024 Erythrocyte distribution width (RBC) [Ratio] 13.4 % 11.6-14.6 [facility] Erythrocyte distribution wid th standard deviationOrdered By: Sowmya Cabrera on 07-20-2024 Erythrocyte distribution width (RBC) [Entitic vol] 45.4 fL High 35.1-43.9 [facility] Erythrocyte sedimentation ra teOrdered By: Sowmya Cabrera on 07-20-2024 ESR (Bld) [Velocity] 20 mm/h 0-30 [facility] Estimated glomerular filtrat ion rate (GFR) AmericanOrdered By: Sowmya Cabrera on 07-20-2024 Estimated GFR (MDRD) Amer 109 mL/min >60 [facility] Comment on above: GFR Calc Ferritinon 07-20-2024 Ferritin [Mass/Vol] 125 ng/mL Normal [facility] Comment on above: Order Comment: Order Date: 07/20/24Order Info: 0786-1 - CMPOrder Info: [id number] - MGOrder Info: 3016-3 - TSHOrder Info: 2498-4 - FEOrder Info: 2276-4 - REHAN Performed By: #### L 503.6550, L500.4050, L501.5200, L3100.5475, L100.0100, L503.6150, L503.0105, L501.9520, L101.9900 ####[facility] [address] [place], [address] Ferritin measurementOrdered By: Sowmya Cabrera on 07-20-2024 Ferritin [Mass/Vol] 125 ng/mL [facility] Glomerular filtration rate ( GFR) estimationOrdered By: Sowmya Cabrera on 07-20-2024 Estimated GFR (MDRD) Non-Af Amer 90 mL/min >60 [facility] Comment on above: Non- GFR Calc Glucose measurementOrdered B y: Sowmya Cabrera on 07-20-2024 Glucose [Mass/Vol] 91 mg/dL 74-106 [facility] Hematocrit Auto (Bld) [Volum e fraction]Ordered By: Sowmya Cabrera on 07-20-2024 Hematocrit (Bld) [Volume fraction] 39.4 % 37-47 [facility] Hemoglobin measurementOrdere d By: Sowmya Cabrera on 07-20-2024 Hemoglobin (Bld) [Mass/Vol] 12.8 g/dL 12.0-15.0 [facility] Immature granulocytes/100 WB C Auto (Bld)Ordered By: Sowmya Cabrera on 07-20-2024 Immature granulocytes/100 WBC (Bld) 0.400 % 0.0-0.9 [facility] Comment on above: IG% - Immature Granu locytes (promyelocytes, myelocytes and metamyelocytes) > 1% indicates that a LEFT SHIFT is Present. Ironon 07-20-2024 Iron [Mass/Vol] 38 ug/dL Low 50-170 [facility] Comment on above: Order Comment: Order Date: 07/20/24Order Info: [id number] - CMPOrder Info: - MGOrder Info: [id number] - TSHOrder Info: [id number] - FEOrder Info: [id number] - REHAN Performed By: #### L [id number], L500.4050, L501.5200, L3100.5475, L100.0100, L503.6150, L503.0105, L501.9520, L101.9900 ####[facility] [id number] [place], [address] Iron (Unsp spec) [Mass/Mass] Ordered By: Sowmya Cabrera on 07-20-2024 Iron [Mass/Vol] 38 ug/dL Low 50-170 [facility] Laboratory - Chemistry and C hemistry - challengeOrdered By: Sowmya Cabrera on 07-20-2024 AST [Catalytic activity/Vol] 32 U/L 15-37 [facility] Lymphocytes Auto (Unsp spec) [#/Vol]Ordered By: Sowmya Cabrera on 07-20-2024 Lymphocytes (Bld) [#/Vol] 0.91 10*3/uL 0.83-4.51 [facility] Lymphocytes/100 WBC Auto (Un sp spec)Ordered By: Sowmya Cabrera on 07-20-2024 Lymphocytes/100 WBC (Bld) 20.0 % 19-41 [facility] MCV (mean corpuscular volume ) determinationOrdered By: Sowmya Cabrera on 07-20-2024 MCV (RBC) [Entitic vol] 92.9 fL 81-99 [facility] Magnesiumon 07-20-2024 Magnesium [Mass/Vol] 2.2 mg/dL Normal 1.6-2.6 [facility] Comment on above: Order Comment: Order Date: 07/20/24Order Info: [id number] - CMPOrder Info: - MGOrder Info: [id number] - TSHOrder Info: [id number] - FEOrder Info: [id number] - REHAN Performed By: #### L 503.6550, L500.4050, L501.5200, L3100.5475, L100.0100, L503.6150, L503.0105, L501.9520, L101.9900 ####[facility] [address] [place], [address] Magnesium measurementOrdered By: Sowmya Cabrera on 07-20-2024 Magnesium [Mass/Vol] 2.2 mg/dL 1.6-2.6 [facility] Mean corpuscular hemoglobin (MCH) determinationOrdered By: Sowmya Cabrera on 07-20-2024 MCH (RBC) [Entitic mass] 30.2 pg 27.0-32.0 [facility] Mean corpuscular hemoglobin concentration (MCHC) determinationOrdered By: Sowmya Cabrera on 07-20-2024 MCHC (RBC) [Mass/Vol] 32.5 g/dL 32-36 [facility] Mean platelet volume determi nationOrdered By: Sowmya Cabrera on 07-20-2024 Platelet mean volume (Bld) [Entitic vol] 12.0 fL 6.2-12.0 [facility] Monocyte percentageOrdered B y: Sowmya Cabrera on 07-20-2024 Monocytes/100 WBC (Bld) 8.1 % 0-10 [facility] Neutrophil percentageOrdered By: Sowmya Cabrera on 07-20-2024 Neutrophils/100 WBC (Bld) 69.8 % 47-70 [facility] Nucleated red blood cell per centageOrdered By: Sowmya Cabrera on 07-20-2024 Nucleated RBC/100 WBC (Bld) [Ratio] 0 % 0-5 [facility] Platelet countOrdered By: Zaynab Cabrera on 07-20-2024 Platelets (Bld) [#/Vol] 216 10*3/uL 150-450 [facility] Potassium measurementOrdered By: Sowmya Cabrera on 07-20-2024 Potassium [Moles/Vol] 3.7 mmol/L 3.5-5.1 [facility] RBC Auto (Bld) [#/Vol]Ordere d By: Sowmya Cabrera on 07-20-2024 RBC (Bld) [#/Vol] 4.24 10*6/uL 4.2-5.4 [facility] Serum anion gap measurementO rdered By: Sowmya Cabrera on 07-20-2024 Anion gap [Moles/Vol] 3 mmol/L Low 5-15 [facility] Serum globulin measurementOr dered By: Sowmya Cabrera on 07-20-2024 Globulin (S) [Mass/Vol] 3.5 g/dL 2.2-4.2 [facility] Serum or plasma alanine eastman otransferase (ALT) measurementOrdered By: Sowmya Cabrera on 07-20-2024 ALT [Catalytic activity/Vol] 30 U/L 13-56 [facility] Serum or plasma albumin demetrice urement (mass/volume)Ordered By: Sowmya Cabrera on 07-20-2024 Albumin [Mass/Vol] 3.7 g/dL 3.2-5.0 [facility] Serum or plasma alkaline dedrick sphatase measurementOrdered By: Sowmya Cabrera on 07-20-2024 ALP [Catalytic activity/Vol] 96 U/L 45-117 [facility] Serum or plasma calcium demetrice urement (mass/volume)Ordered By: Sowmya Cabrera on 07-20-2024 Calcium [Mass/Vol] 9.3 mg/dL 8.5-10.1 [facility] Serum or plasma creatinine m easurement (mass/volume)Ordered By: Sowmya Cabrera on 07-20-2024 Creatinine [Mass/Vol] 0.68 mg/dL 0.55-1.02 [facility] Comment on above: The validity of the calculated GFR & GFRAA in patients over 70 years has not been determined. Clinical correlation is essential. Serum or plasma urea nitroge n measurement (mass/volume)Ordered By: Sowmya Cabrera on 07-20-2024 Urea nitrogen [Mass/Vol] 15 mg/dL 7-18 [facility] Sodium levelOrdered By: Shirin Cabrera on 07-20-2024 Sodium [Moles/Vol] 141 mmol/L 136-145 [facility] TSH QnOrdered By: Mann Cabrera on 07-20-2024 Thyroid Stimulating Hormone (TSH) 2.380 uIU/mL 0.358-3.740 [facility] Thyroid Stim Hormone (TSH)on 07-20-2024 TSH 2.380 uIU/mL Normal 0.358-3.740 [facility] Comment on above: Order Comment: Order Date: 07/20/24Order Info: [id number] - CMPOrder Info: [id number] - MGOrder Info: [id number] - TSHOrder Info: [id number] - FEOrder Info: [id number] - REHAN Performed By: #### L 503.6550, L500.4050, L501.5200, L3100.5475, L100.0100, L503.6150, L503.0105, L501.9520, L101.9900 ####[facility] [address] [place], [place], [id number] Total proteinOrdered By: Mari Cabrera on 07-20-2024 Protein [Mass/Vol] 7.2 g/dL 6.4-8.2 [facility] Vitamin B12on 07-20-2024 Cobalamin (Vitamin B12) [Mass/Vol] 559 pg/mL Normal [facility] Comment on above: Order Comment: Order Date: 07/20/24Order Info: [id number] - B12 Performed By: #### L 503.6550, L500.4050, L501.5200, L3100.5475, L100.0100, L503.6150, L503.0105, L501.9520, L101.9900 ####[facility] [address] [place], [address] Vitamin B12 measurementOrder ed By: Sowmya Cabrera on 07-20-2024 Cobalamin (Vitamin B12) [Mass/Vol] 559 pg/mL 211-911 [facility] White blood cell (WBC) count Ordered By: Sowmya Cabrera on 07-20-2024 WBC (Bld) [#/Vol] 4.6 10*3/uL 4.4-11.0 [facility] Inital Evaluation (1) - PTon 07-16-2024 Inital Evaluation (1) - PT [facility] Physical Therapy [facility] [address] [place] [address] / REHABILITATION SERVICES INITIAL EVALUATION MR#: [id number] Acct: [id number] Name: GERMANIA DONIS Rep #: [id number] : 1945 79 From: Sary Mejia PT, Cert. MDT Referring Dr.: Dr. Lex Rhoades MD Status: REG RCR Insurance: MEDICARE PART A B [facility] Patient's Visit Information Visit Information Visit Information: GERMANIA DONIS is a 79 year old F referred to Physical Therapy by Lex Rhoades MD with a diagnosis of JERALD SHLD PAIN. Date of Evaluation: 07/16/24 Physical Therapist: Sary Mejia PT, Cert MDT Visit Plan Frequency: 2-3x /Week Duration: 4-6 Weeks Plan: ULTRASOUND, MH/CP, POSTURE CORRECTION/STRENGTHENI NG, JERALD UE ROM/STRETCHING/STRENGT DEMOND TO HELP MEET SET GOALS. 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 Present symptoms: JERALD SHLD PAIN L>R. NECK PAIN. L SHLD PAIN COMES AND GOES. IT CATCHES AND CRACKS. INTERMITTENT MILD L UPPER ARM NUMBNESS. INTERMITTENT NUMBNESS AND TINGLING IN FEET THAT STARTED LAST WEEK AND PATIENT THINKS IT COMES AND GOES. DENIES WELLS'S. Present since: INTENSE PAIN ABOUT STARTED ABOUT 4 WKS AGO. CAN'T REMEMBER WHEN IT STARTED - SHOT SEVERAL MONTHS AGO BY DR. CABRERA. Getting Better, Getting Worse or Staying the Same: STAYING THE SAME Pain Scale: Worst - 9/10 - IT KILLS ME AT TIMES. Least - 1/10 Currently: 4/10 Commenced as a result of: NO APPARENT REASON Symptoms at onset: L SHLD ACHE AND NUMBNESS UPPER L ARM. Worse: LIFTING LEFT ARM OUT TO THE SIDE, WASHING FRANCOIS, WASHING WINDOWS, ANY REACHING WITH L UE, PUTTING DRESS ARM, R ARM TOO BUT NOT BAD. IT BOTHERS ME THE MOST AT NIGHT. I WAKE UP VARIOUS TIMES AT NIGHT WITH PAIN IN MY L SHOULDER/ARM. Better: PAIN PILLS HELP SOMETIMES, HEATING PAD Disturbed sleep: YES Previous history/Previous treatment: UNREMARKABLE. NO NECK OR SHLD SURGERY. NO NECK INJECTIONS. CHIROPRACTOR ABOUT 3 TIMES IN LIFE WITH MOST RECENT TIMES BEING ABOUT 4 YEARS AGO - NOT SPECIFICALLY FOR NECK THAT PATIENT RECALLS. This episode: L SHLD INJECTION ABOUT [address] CABRERA - HELPED FOR AWHILE. PATIENT REPORTS SHE WAS PRESCRIBED A MUSCLE RELAXER ABOUT A WK AND A HALF AGO AND SHE STATES SHE TOOK THEM ALL AND SHE IS ABOUT THE SAME OVER-ALL. Dizziness: NO Tinnitus: NO Nausea: NO Shortness of Breath: NO Difficulty Swallowing: NO Gait: IN THE LAST WEEK OR TWO - NOTICE CHANGE IN BALANCE - I WEAVE A BIT. Accidents: DENIES ANY ACCIDENTS OR FALLS. Unexplained weight loss: DENIES ANY RECENT WEIGHT LOSS. Imaging: Recent L shld x-ray: 07/06/24 - Probable calcific tendinopathy. NO R SHLD X-RAYS. NO NECK X-RAYS. NO MRI. PMH/Recent major surgery: HIGH CHOLESTEROL, THYROID DZ. LUMBAR SX 9 YEARS AGO. UNREPAIRED HERNIA - PLANS TO SEE PCP - DR. CABRERA ABOUT IT NEXT WK. Objective Objective: Sitting Posture/Standing Posture: FORWARD HEAD. ROUNDED SHLD'S. L SHLD LEVEL HIGHER THAN R. NO TORTICOLLIS. Active Correction of posture: NE Other Observations: INDEP GAIT AND TRANSFERS. NO LOB OR STAGGERING NOTED. Sensory deficit: JERALD UE LIGHT TOUCH SENSATION GROSSLY INTACT AND SYMMETRICAL ROM deficit: PATIENT WITH FULL JERALD SHLD ELEVATION TODAY. PATIENT DOES HAVE C/O JERALD SHLD PAIN WITH AROM TESTING L>R. Motor deficit: R SH FLEX 4/5, L 4-/5, ABD R 4/5 L 3+/5, IR R 5/5 L 4/5, ER R 4/5 L 3+/5. R ELBOW 5/5 L 5/5. 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 Cervical Mvmt Loss: Flex: NIL Pro: NIL Ext: MIN - INCREASES NECK PAIN - NW Ret: MOD - INCREASES NECK PAIN - NW RSB: MOD - P R NECK PAIN - NW LSB: MIN - P R NECK PAIN - NW R Rot: MIN - NE L Rot: MIN - NE Postural strength: POOR Palpation: TENDERNESS OF LEFT SHLD SUPASPINATUS AND BICIPITAL GROOVE. NO CERVICAL OR OCCIPUT TENDERNESS. Special Tests R Shoulder External Rotation Lag Test - RC Tear: Negative R Shoulder Empty Can - SS: Negative L Shoulder External Rotation Lag Test - RC Tear: Negative L Shoulder Empty Can - SS: Negative Balance/Special Test Scores Quick DASH Score: 52.2725 Goals Goal 1:: DECREASE C/O NECK AND JERALD SHLD PAIN BY AT LEAST 75% TO EASE ADL AND SLEEP FUNCTION Goal Time Frame: 4-6 Weeks Goal 2:: IMPROVE REACHING, LIFTING, PUSHING, PULLING, CLEANING, DRESSING AND SLEEP FUNCTION Goal Time Frame: 4-6 Weeks Goal 3:: INSTRUCT IN PROPHYLAXIS Goal Time Frame: 4-6 Weeks Rehabilitation Potential Physical Therapy Diagnosis: JERALD SHLD PAIN L>R WITH WEAKNESS AND DECREASED NECK ROM AND PAIN. Rehabilitation Potential: Good Anticipated Interventions Patient/Client Instruction: Educate patient on: Condition, Plan of Care and Risk Factors For the Purpose of:: To improve self management Therapeutic Exercise to Include: Strength training, Body mechanics, Postura (more content not included)... Normal [facility] Shoulder min 2 Viewson 07-06 Shoulder min 2 Views [facility] Imaging Services [address], [place] [address] Shoulder min 2 Views MR#: [id number] Acct: [id number] Name: GERMANIA DONIS Rep #: [id number] : 1945 F 79 From: Marco Antonio Reynoso DO PCP: Dr. Sowmya Cabrera MD Status: REG CLI Study: Shoulder min 2 Views Date of Exam: 07/06/24 Exam# [id number] Ordering Dr: Lex Rhoades MD [id number] INDICATION: Left shoulder pain EXAMINATION/TECHNIQUE: X-RAY - LEFT XR Shoulder 4 VIEWS COMPARISON: FINDINGS: SOFT TISSUES: No soft tissue swelling or gas. No radiopaque foreign body. Prominent calcification lateral to the humeral head. BONES/JOINTS: No acute fracture or subluxation.. Normal alignment. Preservation of the joint space.. No sclerotic or destructive changes observed. 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 Electronically Signed: Marco Antonio Reynoso DO at 11:52 EST Reading Location ID and State: [facility] / [place] Tel [phone], Service support , CC: Dr. Lex Rhoades MD; Dr. Sowmya Cabrera MD Director Of Education: Signed Normal [facility] Shoulder min 2 Viewson 04-19 Shoulder min 2 Views [facility] Imaging Services [address] [place], [place] [address] Shoulder min 2 Views MR#: [id number] Acct: [id number] Name: GERMANIA DONIS Rep #: [id number] : 1945 F 78 From: Roxanna Rodriguez MD PCP: Dr. Sowmya Cabrera MD Status: REG CLI Study: Shoulder min 2 Views Date of Exam: 04/19/24 Exam# [id number] Ordering Dr: Sowmya Cabrear [id number] EXAM: XR LEFT SHOULDER COMPLETE, 2 OR MORE VIEWS CLINICAL INDICATION: pain TECHNIQUE: Two or more views of the left shoulder. COMPARISON: None of the left shoulder, views of the right shoulder from April 30, 2018. FINDINGS: BONES/JOINTS: There is an ovoid sclerotic or calcific material of roughly 1.5 cm x 1.2 cm in the expected region of the supraspinatus tendon insertion or subjacent to the lateral joint capsule, this does not appear to be fracture fragment. Mildly heterogeneous bone density. Mild hypertrophic changes of the inferior margin of the acromioclavicular joint with mild narrowing of the subacromial space. SOFT TISSUES: Otherwise unremarkable. No soft tissue swelling or gas. No radiopaque foreign body. Incidentally noted RAD/Shoulder min 2 Views IMPRESSION: Calcific ovoid body in the left shoulder joint. Uncertain chronicity, etiology and significance. Mild hypertrophic changes narrowing the subacromial space. No elvis bone destruction. Electronically Signed: Roxanna Rodriguez MD at 2:56 EDT , CC: Dr. Sowmya Cabrera MD Director Of Education: Signed Normal [facility] Echo Completeon 02-17-2024 Echo Complete [facility] [address] [place] [address] Echo Complete 02/17/24 0906 MR#: [id number] Acct: [id number] Name: GERMANIA DONIS Rep #: [id number] : 1945 78 From: Jeronimo Anne MD Attending Dr: Dr. Sowmya Cabrera MD Status: REG CLI Ordering Dr: Sowmya Cabrera MD Date: 02/17/24 Location: [facility] Sex: F C Admitted: Reason For Study: CARDIAC MURMUR Procedure This was a 2D Doppler, Color Flow transthoracic echocardiogram. Exam performed in department. Left Ventricle Normal LV size. Sigmoid septum. Left ventricular systolic function is normal. No evidence for diastolic dysfunction. The estimated ejection fraction is 60 %. No regional wall motion abnormalities noted. Right Ventricle Normal RV size. Normal systolic function. Atria The left and right atria are normal. Bubble contrast study is positive for PFO. Mitral Valve Mild mitral annular calcification. Mild focal mitral valve calcification. Mild diffuse mitral valve thickening. There is no mitral valve stenosis. Trivial mitral valve insufficiency. Tricuspid Valve Normal tricuspid valve. Trivial tricuspid valve insufficiency. Unable to estimate RV systolic pressure due to insufficient tricuspid regurgitant envelope. Aortic Valve Trisinus/trileaflet aortic valve. Moderate diffuse aortic valve calcification. Mild to moderate aortic stenosis. Peak aortic valve gradient 36 mmHg. Mean aortic valve gradient 19 mmHg. Pulmonic Valve Normal pulmonic valve. Trivial pulmonic valve insufficiency. Great Vessels Normal aortic root. Pericardium/Pleural No pericardial effusion. Medication 22 gauge I.V. with prn adaptor inserted into right arm. Performed a rapid injection of agitated mix of 9 cc saline and 1cc air to assess for atrial septal defect. MMode/2D Measurements Calculations LVIDd: 3.6 cm IVSd: 0.89 cm LVOT diam: 1.9 cm LVIDs: 2.0 cm LVPWd: 0.74 cm FS: 45.1 % LVOT area: 2.8 cm2 LA dimension: 3.1 cm LAV(MOD-bp): 43.0 ml LVAd ap4: 21.1 cm2 LAV(MOD-bp) Indexed: 26.3 ml/m2 LVLd ap4: 7.5 cm LAV(MOD-sp2): 48.9 ml EDV(MOD-sp4): 50.0 ml LAV(MOD-sp4): 32.0 ml EDV(sp4-el): 50.4 ml LVAs ap4: 9.4 cm2 LVLs ap4: 6.3 cm ESV(MOD-sp4): 12.6 ml ESV(sp4-el): 11.9 ml EF(MOD-sp4): 74.8 % EF(sp4-el): 76.4 % SV(MOD-sp4): 37.4 ml SV(sp4-el): 38.5 ml LA A4 area: 13.3 cm2 RA A4 area: 11.4 cm2 TAPSE: 2.3 cm Time Measurements MV dec time: 0.28 sec Doppler Measurements Calculations MV E max leroy: 89.1 cm/sec Lat Peak E' Leroy: 9.5 cm/sec Med Peak E' Leroy: 7.4 cm/sec MV A max leroy: 111.1 cm/sec E/E' lat: 9.4 E/E' med: 12.0 MV E/A: 0.80 MV V2 max: 121.2 cm/sec MV P1/2t max leroy: 93.1 cm/sec Ao V2 max: 299.3 cm/sec MV max P.9 mmHg MV P1/2t: 76.8 msec Ao max P.0 mmHg MV V2 mean: 50.3 cm/sec MV dec slope: 354.9 cm/sec2 Ao V2 mean: 199.8 cm/sec MV mean P.3 mmHg MVA(P1/2t): 2.9 cm2 Ao mean P.5 mmHg MV V2 VTI: 31.9 cm Ao V2 VTI: 62.3 cm MVA(VTI): 2.4 cm2 AV (velocity ratio): 0.43 SHRUTHI(I,D): 1.2 cm2 SHRUTHI(V,D): 1.0 cm2 LV V1 max: 110.0 cm/sec SV(LVOT): 75.5 ml PA V2 max: 129.4 cm/sec LV V1 max P.9 mmHg PA max PG (full): 5.4 mmHg LV V1 mean P.1 mmHg PA V2 mean: 82.3 cm/sec LV V1 mean: 84.9 cm/sec LV V1 VTI: 26.9 cm ECHO/Echo Complete Interpretation Summary The estimated ejection fraction is 60 %. No evidence for diastolic dysfunction. Mild focal mitral valve calcification. Mild mitral annular calcification. Mild to moderate aortic stenosis. Bubble contrast study is positive for PFO. Ordering Physician: Sowmya Cabrera Referring Physician: Sowmya Cabrera Performed By: Nabor BARNES RDCS, Mitra and Student 02/17/24 1406 Date Jeronimo Anne MD CC: Dr. Sowmya Cabrera MD Date Dictated: 02/17/24905 Date Transcribed: 02/17/241405 Director Of Education: Signed Normal [facility] SCRN MAMM (CAD)W/CYNTHIA BILATo n 02-17-2024 SCRN MAMM (CAD)W/CYNTHIA BILAT [facility] Imaging Services [address] [place] [address] SCRN MAMM (CAD)W/CYNTHIA BILAT MR#: [id number] Acct: [id number] Name: GERMANIA DONIS Rep #: [id number] : 1945 F 78 From: Nathanael salcido MD PCP: Dr. Sowmya Cabrera MD Status: REG CLI Study: SCRN MAMM (CAD)W/CYNTHIA BILAT Date of Exam: 01/24 01/15 Exam# [id number] Ordering Dr: Sowmya Cabrera [id number] MAMMOGRAPHY - BILATERAL SCREENING REASON FOR EXAM: Female, 78 years old. Routine annual screening examination. PERTINENT HISTORY: Non-contributory. TECHNIQUE: Digital bilateral breast cynthia (3D mammographic acquisition) in the CC and MLO projections. 2-D mediolateral oblique (MLO) and craniocaudad (CC) views of both breasts were obtained. CAD: Full Field Digital Mammography with Computer Added Detection was performed. COMPARISON: Comparison is made with prior study of January 02, 2023 and September 07, 2020. FINDINGS: Breast Composition: There are scattered areas of fibroglandular density. There are no dominant masses or suspicious calcifications. Stable small benign-appearing bilateral axillary lymph nodes. No other significant abnormalities are identified. There has been no significant change since the prior study. BI/SCRN MAMM (CAD)W/CYNTHIA BILAT IMPRESSION: Stable bilateral screening mammogram. Yearly follow-up mammogram recommended. (A) ASSESSMENT CATEGORY: BIRADS Category 2: Benign. A letter regarding these results will be sent to the patient by the facility within 30 days. Approximately 10% of breast cancers are not detected by mammography. A normal mammogram should not delay biopsy of a clinically suspicious abnormality. [id number] Electronically Signed: Nathanael Rosenberg MD at 9:12 EDT , CC: Dr. Sowmya Cabrera MD Director Of Education: Signed Normal [facility] Basophil percentageOrdered B y: Mann Cabrera on 10-21-2023 Chloride [Moles/Vol] 110 mmol/L 98-107 [facility] Cholesterol [Mass/Vol] 224 mg/dL <200 Wo [facility] Comment on above: <200 mg/dL Desirable 200-240 mg/dL Borderline >240 mg/dL High Risk Glucose [Mass/Vol] 98 mg/dL 74-106 [facility] Potassium [Moles/Vol] 4.2 mmol/L 3.5-5.1 [facility] Sodium [Moles/Vol] 142 mmol/L 136-145 [facility] Triglyceride [Mass/Vol] 50 mg/dL <199 [facility] Comment on above: The drugs N-Acetylcy steine and Metamizole may falsely depress this assay.Serum Triglycerides Reference Interval Normal <150 mg/dL Borderline high 150 - 199 mg/dL High 200 - 499 mg/dL Very High > or = 500 mg/dL Laboratory - Chemistry and C hemistry - challengeOrdered By: Mann Cabrera on 10-21-2023 Cholesterol in HDL [Mass/Vol] 71 mg/dL >40 [facility] Comment on above: The drugs N-Acetylcy steine and Metamizole may falsely depress this assay. Reference Range HDL <40 mg/dL Low HDL Cholesterol HDL >or= 60 mg/dL High HDL Cholesterol Cholesterol in LDL [Mass/Vol] 143 mg/dL 0-130 [facility] CO2 [Moles/Vol] 29.0 mmol/L 21.0-32.0 [facility] Urea nitrogen/Creatinine [Mass ratio] 27.7 mg/mg 10-20 [facility] No Panel InformationOrdered By: Mann Cabrera on 10-21-2023 Estimated GFR (MDRD) Amer 101 mL/min >60 [facility] Comment on above: GFR Calc Estimated GFR (MDRD) Non-Af Amer 84 mL/min >60 [facility] Comment on above: Non- GFR Calc VLDL Cholesterol 10 mg/dL 5-40 [facility] Serum or plasma calcium demetrice urement (mass/volume)Ordered By: Mann Cabrera on 10-21-2023 Calcium [Mass/Vol] 9.0 mg/dL 8.5-10.1 [facility] Serum or plasma creatinine m easurement (mass/volume)Ordered By: Mann Cabrera on 10-21-2023 Creatinine [Mass/Vol] 0.72 mg/dL 0.55-1.02 [facility] Comment on above: The validity of the calculated GFR & GFRAA in patients over 70 years has not been determined. Clinical correlation is essential. Serum or plasma thyroid stim ulating hormone (TSH) measurement (units/volume)Ordered By: Mann Cabrera on 10-21-2023 TSH Qn 1.70 uIU/mL 0.358-3.74 [facility] Serum or plasma urea nitroge n measurement (mass/volume)Ordered By: Mann Cabrera on 10-21-2023 Urea nitrogen [Mass/Vol] 20 mg/dL 7-18 [facility] Thin prep Papanicolaou smear with manual screeningOrdered By: Mann Cabrera on 10-21-2023 Thin prep Papanicolaou smear with manual screening 3 5-15 [facility] Basophil percentageOrdered B y: Dr. Cabrera on 12-16-2022 Bilirubin [Mass/Vol] 0.30 mg/dL 0.20-1.00 [facility] Comment on above: For patients on eltr ombopag therapy, use of Dimension S [place] TBIL is not recommended. Chloride [Moles/Vol] 108 mmol/L 98-107 [facility] Cholesterol [Mass/Vol] 210 mg/dL <200 [facility] Comment on above: <200 mg/dL Desirable 200-240 mg/dL Borderline >240 mg/dL High Risk Glucose [Mass/Vol] 93 mg/dL 74-106 [facility] Potassium [Moles/Vol] 3.7 mmol/L 3.5-5.1 [facility] Protein [Mass/Vol] 7.6 g/dL 6.4-8.2 [facility] Sodium [Moles/Vol] 139 mmol/L 136-145 [facility] Triglyceride [Mass/Vol] 86 mg/dL <199 [facility] Comment on above: The drugs N-Acetylcy steine and Metamizole may falsely depress this assay.Serum Triglycerides Reference Interval Normal <150 mg/dL Borderline high 150 - 199 mg/dL High 200 - 499 mg/dL Very High > or = 500 mg/dL Laboratory - Chemistry and C hemistry - challengeOrdered By: Dr. Cabrera on 12-16-2022 ALP [Catalytic activity/Vol] 90 U/L 45-117 [facility] ALT [Catalytic activity/Vol] 41 U/L 13-56 [facility] CO2 [Moles/Vol] 26.0 mmol/L 21.0-32.0 [facility] Free T4 [Mass/Vol] 1.10 ng/dL 0.76-1.46 [facility] Globulin (S) [Mass/Vol] 4.4 g/dL 2.2-4.2 [facility] Magnesium [Mass/Vol] 2.2 mg/dL 1.6-2.6 [facility] Urea nitrogen/Creatinine [Mass ratio] 21.1 mg/mg 10-20 [facility] No Panel InformationOrdered By: Dr. Cabrera on 12-16-2022 Estimated GFR (MDRD) Amer 112 mL/min >60 [facility] Comment on above: GFR Calc Estimated GFR (MDRD) Non-Af Amer 92 mL/min >60 [facility] Comment on above: Non- GFR Calc Ionized Calcium 5.0 mg/dL 4.5-5.6 [facility] Comment on above: Performed at: [address] [id number] Director: Wilder Araya PhD, Phone: [phone] Parathyroid Hormone (Intact) 25.4 pg/mL 18.4-80.1 [facility] Thyroid Stimulating Hormone (TSH) 0.30 uIU/mL 0.358-3.74 [facility] - [place] Vitamin D 25-Hydroxy 99.5 ng/mL [facility] Comment on above: Vitamin D 25(OH) Sta tus Range Deficiency <20 ng/mL (50nmol/L) Insufficiency 20 - 30 ng/mL (50 - 75 nmol/L) Sufficiency 30 - 100 ng/mL (75 - 250 nmol/L) Toxicity >100 ng/mL (>250 nmol/L) Serum or plasma albumin demetrice urement (mass/volume)Ordered By: Dr. Cabrera on 12-16-2022 Albumin [Mass/Vol] 3.2 g/dL 3.2-5.0 [facility] Serum or plasma albumin/glob ulin mass ratioOrdered By: Dr. Cabrera on 12-16-2022 Albumin/Globulin [Mass ratio] 0.7 {ratio} 0.9-2.4 [facility] [place] Serum or plasma calcium demetrice urement (mass/volume)Ordered By: Dr. Cabrera on 12-16-2022 Calcium [Mass/Vol] 9.0 mg/dL 8.5-10.1 [facility] Serum or plasma cholesterol in HDL measurement (mass/volume)Ordered By: Dr. Cabrera on 12-16-2022 Cholesterol in HDL [Mass/Vol] 59 mg/dL >40 [facility] [place] Comment on above: The drugs N-Acetylcy steine and Metamizole may falsely depress this assay. Reference Range HDL <40 mg/dL Low HDL Cholesterol HDL >or= 60 mg/dL High HDL Cholesterol Serum or plasma cholesterol in VLDL measurement (mass/volume)Ordered By: Dr. Cabrera on 12-16-2022 Cholesterol in VLDL [Mass/Vol] 17 mg/dL 5-40 [facility] [place] Serum or plasma creatinine m easurement (mass/volume)Ordered By: Dr. Cabrera on 12-16-2022 Creatinine [Mass/Vol] 0.66 mg/dL 0.55-1.02 [facility] Comment on above: The validity of the calculated GFR & GFRAA in patients over 70 years has not been determined. Clinical correlation is essential. Serum or plasma low density lipoprotein (LDL) cholesterol measurement (mass/volume)Ordered By: Dr. Cabrera on 12-16-2022 Cholesterol in LDL [Mass/Vol] 134 mg/dL 0-130 [facility] [place] Serum or plasma urea nitroge n measurement (mass/volume)Ordered By: Dr. Cabrera on 12-16-2022 Urea nitrogen [Mass/Vol] 14 mg/dL 7-18 [facility] [place] Thin prep Papanicolaou smear with manual screeningOrdered By: Dr. Cabrera on 12-16-2022 Thin prep Papanicolaou smear with manual screening 38 U/L 15-37 [facility] [place] Thin prep Papanicolaou smear with manual screening 5 5-15 [facility] [place] Laboratory - Chemistry and C hemistry - challengeon 06-24-2022 Free T4 [Mass/Vol] 1.19 ng/dL 0.76-1.46 [facility] Work Phone: No Panel Informationon 06-24 Thyroid Stimulating Hormone (TSH) 0.77 uIU/mL 0.358-3.74 [facility] [place] Work Phone: Basophil percentageon 2021 Bilirubin [Mass/Vol] 0.40 mg/dL 0.20-1.00 [facility] Work Phone: Comment on above: For patients on eltr ombopag therapy, use of Dimension S [place] TBIL is not recommended. Chloride [Moles/Vol] 107 mmol/L 98-107 [facility] Work Phone: Cholesterol [Mass/Vol] 251 mg/dL <200 [facility] Work Phone: Comment on above: <200 mg/dL Desirable 200-240 mg/dL Borderline >240 mg/dL High Risk Glucose [Mass/Vol] 90 mg/dL 74-106 [facility] Work Phone: Potassium [Moles/Vol] 4.1 mmol/L 3.5-5.1 [facility] Work Phone: Protein [Mass/Vol] 7.3 g/dL 6.4-8.2 [facility] Work Phone: Sodium [Moles/Vol] 140 mmol/L 136-145 [facility] Work Phone: [phone] Triglyceride [Mass/Vol] 66 mg/dL <199 [facility] Work Phone: [phone] Comment on above: The drugs N-Acetylcy steine and Metamizole may falsely depress this assay.Serum Triglycerides Reference Interval Normal <150 mg/dL Borderline high 150 - 199 mg/dL High 200 - 499 mg/dL Very High > or = 500 mg/dL WBC (Bld) [#/Vol] 4.3 10*3/uL 4.4-11.0 [facility] Work Phone: Blood erythrocytes count (nu mber/volume)on 04-30-2022 RBC (Bld) [#/Vol] 4.44 10*6/uL 4.2-5.4 [facility] Work Phone: Blood hemoglobin measurement (mass/volume)on 04-30-2022 Hemoglobin (Bld) [Mass/Vol] 13.1 g/dL 12.0-15.0 [facility] [place] Work Phone: [phone] Blood platelet mean volumeon 04-30-2022 Platelet mean volume (Bld) [Entitic vol] 11.6 fL 6.2-12.0 [facility] [place] Work Phone: Determination of erythrocyte mean corpuscular volume (MCV)on 04-30-2022 MCV (RBC) [Entitic vol] 92.1 fL 81-99 [facility] Work Phone: [phone] Hematocrit Auto (Bld) [Volum e fraction]on 04-30-2022 Hematocrit (Bld) [Volume fraction] 40.9 % 37-47 [facility] [place] Work Phone: Laboratory - Chemistry and C hemistry - challengeon 04-30-2022 ALP [Catalytic activity/Vol] 85 U/L 45-117 [facility] [place] Work Phone: ALT [Catalytic activity/Vol] 34 U/L 13-56 [facility] [place] Work Phone: [phone] CO2 [Moles/Vol] 28.0 mmol/L 21.0-32.0 [facility] [place] Work Phone: Free T4 [Mass/Vol] 0.91 ng/dL 0.76-1.46 [facility] Work Phone: Globulin (S) [Mass/Vol] 3.9 g/dL 2.2-4.2 [facility] Work Phone: [phone] Urea nitrogen/Creatinine [Mass ratio] 28.1 mg/mg 10-20 [facility] [place] Work Phone: Laboratory - Hematology and Cell countson 04-30-2022 Erythrocyte distribution width (RBC) [Entitic vol] 46.3 fL 35.1-43.9 [facility] [place] Work Phone: [phone] Erythrocyte distribution width (RBC) [Ratio] 13.6 % 11.6-14.6 [facility] [place] Work Phone: [phone] MCH (RBC) [Entitic mass] 29.5 pg 27.0-32.0 [facility] [place] Work Phone: [phone] MCHC Auto (RBC) [Mass/Vol]on 04-30-2022 MCHC (RBC) [Mass/Vol] 32.0 g/dL 32-36 [facility] Work Phone: [phone] Panel Informationon 04-30 Estimated GFR (MDRD) Amer 97 mL/min >60 [facility] [place] Work Phone: [phone] Comment on above: GFR Calc Estimated GFR (MDRD) Non-Af Amer 80 mL/min >60 [facility] [place] Work Phone: [phone] Comment on above: Non- GFR Calc Thyroid Stimulating Hormone (TSH) 3.14 uIU/mL 0.358-3.74 [facility] [place] Work Phone: [phone] Vitamin D 25-Hydroxy 62.3 ng/mL [facility] Work Phone: [phone] Comment on above: Vitamin D 25(OH) Sta tus Range Deficiency <20 ng/mL (50nmol/L) Insufficiency 20 - 30 ng/mL (50 - 75 nmol/L) Sufficiency 30 - 100 ng/mL (75 - 250 nmol/L) Toxicity >100 ng/mL (>250 nmol/L) Platelets bldon 04-30-2022 Platelets (Bld) [#/Vol] 203 10*3/uL 150-450 [facility] [place] Work Phone: [phone] Serum or plasma albumin demetrice urement (mass/volume)on 04-30-2022 Albumin [Mass/Vol] 3.4 g/dL 3.2-5.0 [facility] Work Phone: [phone] Serum or plasma albumin/glob ulin mass ratioon 04-30-2022 Albumin/Globulin [Mass ratio] 0.9 {ratio} 0.9-2.4 [facility] [place] Work Phone: Serum or plasma calcium demetrice urement (mass/volume)on 04-30-2022 Calcium [Mass/Vol] 9.1 mg/dL 8.5-10.1 [facility] Work Phone: Serum or plasma cholesterol in HDL measurement (mass/volume)on 04-30-2022 Cholesterol in HDL [Mass/Vol] 72 mg/dL >40 [facility] [place] Work Phone: Comment on above: The drugs N-Acetylcy steine and Metamizole may falsely depress this assay. Reference Range HDL <40 mg/dL Low HDL Cholesterol HDL >or= 60 mg/dL High HDL Cholesterol Serum or plasma cholesterol in VLDL measurement (mass/volume)on 04-30-2022 Cholesterol in VLDL [Mass/Vol] 13 mg/dL 5-40 [facility] [place] Work Phone: [phone] Serum or plasma creatinine m easurement (mass/volume)on 04-30-2022 Creatinine [Mass/Vol] 0.75 mg/dL 0.55-1.02 [facility] Work Phone: Comment on above: The validity of the calculated GFR & GFRAA in patients over 70 years has not been determined. Clinical correlation is essential. Serum or plasma low density lipoprotein (LDL) cholesterol measurement (mass/volume)on 04-30-2022 Cholesterol in LDL [Mass/Vol] 166 mg/dL 0-130 [facility] [place] Work Phone: Serum or plasma urea nitroge n measurement (mass/volume)on 04-30-2022 Urea nitrogen [Mass/Vol] 21 mg/dL 7-18 [facility] [place] Work Phone: [phone] Thin prep Papanicolaou smear with manual screeningon 04-30-2022 Thin prep Papanicolaou smear with manual screening 30 U/L 15-37 [facility] [place] Work Phone: [phone] Thin prep Papanicolaou smear with manual screening 5 5-15 [facility] [place] Work Phone: [phone] Basophil percentageon 2021 Basophil percentage 65 mg/dL [facility] Work Phone: [phone] Panel Informationon 11-23 Insulin Resistance/Diabetes Risk <25 [facility] [place] Work Phone: Comment on above: INSULIN RESISTANCE Osmel KRISHNAN <--Insulin Sensitive Insulin Resistant--> Percentile in Reference PopulationInsulin Resistance ScoreLP-IR Score Low 25th 50th 75th High <27 27 45 63 >63LP-IR Score is inaccurate if patient is non-fasting.The LP-IR score is a laboratory developed index that hasbeen associated with insulin resistance and diabetes riskand should be used as one component of a physician'sclinical assessment.Performed at: - [address] [id number] Director: Tomy Moser MD, Phone: [phone] LDL Cholesterol Particle Number [id number] nmol/L [facility] [place] Work Phone: Comment on above: Low < 1000 Moderate 1000 - 1299 Borderline-High 1300 - 1599 High 1600 - 2000 Very High > 2000 LDL Cholesterol Particle Size 21.6 nm [facility] [place] Work Phone: Comment on above: INTERPRETATIVE INFORMATION PARTICLE CONCENTRATION AND SIZE <--Lower CVD Risk Higher CVD Risk--> LDL AND HDL PARTICLES Percentile in Reference Population HDL-P (total) High 75th 50th 25th Low >34.9 34.9 30.5 26.7 <26.7 Small LDL-P Low 25th 50th 75th High <117 [phone] >839 LDL Size <-Large (Pattern A)-> <-Small (Pattern B)-> 23.0 20.6 20.5 19.0 Sma ll LDL-P and LDL Size are associated with CVD risk, butnot after LDL-P is taken into account. LDL Cholesterol, Calculated 156 mg/dL [facility] [place] Work Phone: Comment on above: Optimal < 100 Above optimal 100 - 129 Borderline 130 - 159 High 160 - 189 Very high > 189 Small LDL Particle Number [id number] nmol/L [facility] [place] Work Phone: Serum or plasma cholesterol in HDL measurement (mass/volume)on 11-23-2021 Cholesterol in HDL [Mass/Vol] 63 mg/dL [facility] [place] Work Phone: Serum or plasma cholesterol measurement (mass/volume)on 11-23-2021 Cholesterol [Mass/Vol] 230 mg/dL [facility] Work Phone: Thin prep Papanicolaou smear with manual screeningon 11-23-2021 Thin prep Papanicolaou smear with manual screening 34.3 umol/L [facility] [place] Work Phone: CT CARDIAC SCORINGon 022 CT CARDIAC SCORING Patient Name: GERMANIA DONIS STUDY: CT CARDIAC SCORING; 08/31/2021 3:12 pm INDICATION: E78.5 Hyperlipidemia, unspecified. COMPARISON: None. ACCESSION NUMBER(S): [id number] ORDERING CLINICIAN: SOWMYA CABRERA TECHNIQUE: Using prospective ECG gating, CT scan of the coronary arteries was performed without intravenous contrast. Coronary calcium scoring was performed according to the method of [place]. FINDINGS: The score and distribution of calcium in the coronary arteries is as follows: LM 0.71 LAD 0.85 LCx 14.15 RCA 4.53 Total 20.24 The visualized mid/lower ascending thoracic aorta measures 3.1 cm in diameter. The heart is normal in size. No pericardial effusion is present. No gross evidence of mediastinal or hilar lymphadenopathy or masses is identified. Faint patchy ground-glass opacities are noted in the partially visualized right upper lobe The visualized subdiaphragmatic structures appear intact. IMPRESSION: 1. Coronary artery calcium score of 20.24*. *Coronary artery calcium scoring may be helpful in predicting the risk for future coronary heart disease events. According to the [place] Clinical Expert Consensus Task Force, such testing provides important prognostic information in patients with more than one coronary heart disease risk factor. The coronary artery calcium score correlates with the annual risk of a non-fatal myocardial infarction or coronary heart disease . Coronary artery score Annual Risk 0-99 0.4% 100-399 1.3% >400 2.4% These three breakpoints correspond to lower, intermediate and high risk states for future coronary events. Such information should be used, along with appropriate clinical judgment, to make decisions regarding the intensity of risk factor management strategies to treat blood lipids and to modify other non-lipid coronary risk factors. Reference: [place] P et al. Circulation. 2007; 115:402-426 2. Faint ground-glass opacities in the right upper lobe, which may be related to infiltrates. Clinical correlation and further evaluation may be obtained as clinically warranted. The report was faxed to the referring office. Electronically signed by: JINA OVALLE MD [facility] Absolute lymphocyte counton 08-01-2021 Lymphocytes Auto (Unsp spec) [#/Vol] 1.08 10*3/uL 0.83-4.51 [facility] [place] Work Phone: Basophil percentageon 2020 Bilirubin [Mass/Vol] 0.50 mg/dL 0.20-1.00 [facility] Work Phone: Comment on above: For patients on eltr ombopag therapy, use of Dimension S [place] TBIL is not recommended. Chloride [Moles/Vol] 104 mmol/L 98-107 [facility] Work Phone: Cholesterol [Mass/Vol] 324 mg/dL <200 [facility] Work Phone: Comment on above: <200 mg/dL Desirable 200-240 mg/dL Borderline >240 mg/dL High Risk Eosinophils/100 WBC (Bld) 0.2 % 0-5 [facility] [place] Work Phone: Glucose [Mass/Vol] 96 mg/dL 74-106 [facility] Work Phone: Comment on above: Please note revised GLUCOSE reference range effective 2017. Neutrophils (Bld) [#/Vol] 8.4 10*3/uL 2.0-7.7 [facility] [place] Work Phone: Potassium [Moles/Vol] 4.0 mmol/L 3.5-5.1 [facility] Work Phone: [phone] Protein [Mass/Vol] 7.8 g/dL 6.4-8.2 [facility] Work Phone: [phone] Sodium [Moles/Vol] 138 mmol/L 136-145 [facility] Work Phone: [phone] Triglyceride [Mass/Vol] 59 mg/dL [facility] Work Phone: [phone] Comment on above: The drugs N-Acetylcy steine and Metamizole may falsely depress this assay.Serum Triglycerides Reference Interval Normal <150 mg/dL Borderline high 150 - 199 mg/dL High 200 - 499 mg/dL Very High > or = 500 mg/dL WBC (Bld) [#/Vol] 10.3 10*3/uL 4.4-11.0 [facility] Work Phone: [phone] Blood erythrocytes count (nu mber/volume)on 08-01-2021 RBC (Bld) [#/Vol] 4.62 10*6/uL 4.2-5.4 [facility] Work Phone: [phone] Blood hemoglobin measurement (mass/volume)on 08-01-2021 Hemoglobin (Bld) [Mass/Vol] 13.4 g/dL 12.0-15.0 [facility] [place] Work Phone: [phone] Blood lymphocytes/100 leukoc yteson 08-01-2021 Lymphocytes/100 WBC (Bld) 10.5 % 19-41 [facility] [place] Work Phone: [phone] Blood monocytes/100 leukocyt eson 08-01-2021 Monocytes/100 WBC (Bld) 7.2 % 0-10 [facility] Work Phone: [phone] Blood platelet mean volumeon 08-01-2021 Platelet mean volume (Bld) [Entitic vol] 11.8 fL 6.2-12.0 [facility] [place] Work Phone: [phone] Culture, urineon 08-01-2021 Bacteria identified Cx Nom (U) Presumptive E. coli [facility] [place] Work Phone: [phone] Determination of erythrocyte mean corpuscular volume (MCV)on 08-01-2021 MCV (RBC) [Entitic vol] 90.7 fL 81-99 [facility] Work Phone: Hematocrit Auto (Bld) [Volum e fraction]on 08-01-2021 Hematocrit (Bld) [Volume fraction] 41.9 % 37-47 [facility] [place] Work Phone: Laboratory - Chemistry and C hemistry - challengeon 08-01-2021 ALP [Catalytic activity/Vol] 110 U/L 45-117 [facility] [place] Work Phone: ALT [Catalytic activity/Vol] 26 U/L 13-56 [facility] [place] Work Phone: [phone] CO2 [Moles/Vol] 26.0 mmol/L 21.0-32.0 [facility] [place] Work Phone: Free T4 [Mass/Vol] 0.98 ng/dL 0.76-1.46 [facility] Work Phone: [phone] Globulin (S) [Mass/Vol] 4.5 g/dL 2.2-4.2 [facility] Work Phone: [phone] Magnesium [Mass/Vol] 2.3 mg/dL 1.6-2.6 [facility] Work Phone: [phone] Urea nitrogen/Creatinine [Mass ratio] 15.6 mg/mg 10-20 [facility] [place] Work Phone: Laboratory - Hematology and Cell countson 08-01-2021 Basophils/100 WBC (Unsp spec) 0.2 % 0-1 [facility] [place] Work Phone: [phone] Erythrocyte distribution width (RBC) [Entitic vol] 45.1 fL 35.1-43.9 [facility] [place] Work Phone: [phone] Erythrocyte distribution width (RBC) [Ratio] 13.5 % 11.6-14.6 [facility] [place] Work Phone: Immature granulocytes/100 WBC (Bld) 0.300 % 0.0-0.9 [facility] [place] Work Phone: Comment on above: IG% - Immature Granu locytes (promyelocytes, myelocytes and metamyelocytes) > 1% indicates that a LEFT SHIFT is Present. MCH (RBC) [Entitic mass] 29.0 pg 27.0-32.0 [facility] [place] Work Phone: Neutrophils/100 WBC (Bld) 81.6 % 47-70 [facility] [place] Work Phone: [phone] Nucleated RBC/100 WBC (Bld) [Ratio] 0 % 0-5 [facility] [place] Work Phone: [phone] MCHC Auto (RBC) [Mass/Vol]on 08-01-2021 MCHC (RBC) [Mass/Vol] 32.0 g/dL 32-36 [facility] Work Phone: No Panel Informationon 08-01 Estimated GFR (MDRD) Amer 86 mL/min >60 [facility] [place] Work Phone: Comment on above: GFR Calc Estimated GFR (MDRD) Non-Af Amer 71 mL/min >60 [facility] [place] Work Phone: Comment on above: Non- GFR Calc Ionized Calcium 5.3 mg/dL [facility] [place] Work Phone: Comment on above: Performed at: [place] [id number] Director: Wilder Araya PhD, Phone: [phone] Parathyroid Hormone (Intact) 28.6 pg/mL 18.4-80.1 [facility] [place] Work Phone: [phone] Thyroid Stimulating Hormone (TSH) 1.49 uIU/mL 0.358-3.74 [facility] [place] Work Phone: [phone] Platelets bldon 08-01-2021 Platelets (Bld) [#/Vol] 237 10*3/uL 150-450 [facility] [place] Work Phone: [phone] Serum or plasma albumin demetrice urement (mass/volume)on 08-01-2021 Albumin [Mass/Vol] 3.3 g/dL 3.2-5.0 [facility] Work Phone: [phone] Serum or plasma albumin/glob ulin mass ratioon 08-01-2021 Albumin/Globulin [Mass ratio] 0.7 {ratio} 0.9-2.4 [facility] [place] Work Phone: [phone] Serum or plasma calcium demetrice urement (mass/volume)on 08-01-2021 Calcium [Mass/Vol] 9.2 mg/dL 8.5-10.1 [facility] Work Phone: [phone] Serum or plasma cholesterol in HDL measurement (mass/volume)on 08-01-2021 Cholesterol in HDL [Mass/Vol] 66 mg/dL [facility] [place] Work Phone: Comment on above: The drugs N-Acetylcy steine and Metamizole may falsely depress this assay. Reference Range HDL <40 mg/dL Low HDL Cholesterol HDL >or= 60 mg/dL High HDL Cholesterol Serum or plasma cholesterol in VLDL measurement (mass/volume)on 08-01-2021 Cholesterol in VLDL [Mass/Vol] 12 mg/dL 5-40 [facility] [place] Work Phone: [phone] Serum or plasma creatinine m easurement (mass/volume)on 08-01-2021 Creatinine [Mass/Vol] 0.84 mg/dL 0.55-1.02 [facility] Work Phone: Comment on above: The validity of the calculated GFR & GFRAA in patients over 70 years has not been determined. Clinical correlation is essential. Serum or plasma low density lipoprotein (LDL) cholesterol measurement (mass/volume)on 08-01-2021 Cholesterol in LDL [Mass/Vol] 246 mg/dL 0-130 [facility] [place] Work Phone: [phone] Serum or plasma urea nitroge n measurement (mass/volume)on 08-01-2021 Urea nitrogen [Mass/Vol] 13 mg/dL 7-18 [facility] [place] Work Phone: [phone] Thin prep Papanicolaou smear with manual screeningon 08-01-2021 Thin prep Papanicolaou smear with manual screening 22 U/L 15-37 [facility] [place] Work Phone: [phone] Thin prep Papanicolaou smear with manual screening 8 5-15 [facility] [place] Work Phone: PROGRESSon 09-15-2017 PROGRESS HNO ID: [id number]: [place] (Rt) [place] Anglin: (none)Author Type: TechnicianType: Progress NotesFiled: 09/15/2017 2:45 PMNote Text: Radiology Service Progress NotePATIENT NAME: Germania DonisMRN: [id number] OF SERVICE: September 15, 2017TIME: 2:39 PMPATIENT IDENTITY VERIFICATION COMPLETED USING TWO (2) METHODS: Patientconfirmed name verbally and Date of .PATIENT GENDER DATA: Female. status: : NoBreastfeeding status: NO.PATIENT RELEVANT IMPLANT DATA REVIEWED: Not ApplicableRADIOLOGY DEPARTMENT: General X-ray: Exam(s) Completed: Chest X-RayPERIPHERAL IV DATA: Not applicableSIGNED BY: RT ElsaSeptember 15, 2017 2:39 PM Normal [facility] XR CHEST 2V FRONTAL/LATon XR CHEST 2V FRONTAL/LAT * * *Final Repor t* * *DATE OF EXAM: Sep 15 2017 2:44PM WOX [id number] - XR CHEST 2V FRONTAL/LAT / REASON: PNEUMONIA * * * * Physician Interpretation * * * * EXAMINATION: CHEST RADIOGRAPH (2 VIEW FRONTAL and LATERAL)Clinical History: PNEUMONIAM: XC2_3Comparison: Comparison is made to prior chest dated 08/30/2017RESULT:Lines , tubes, and devices: None.Lungs and pleura: Interval improvement in the lingular airspace opacity suggesting resolving lingular pneumonia. The lungs are otherwise clear. No volume loss or pleural fluid identified.Cardiomedia stinal silhouette: Normal cardiomediastinal silhouette.Other: The visualized bony structures are intactIMPRESSION:Resol ving lingular pneumonia.Transcriptio nist: PSCB Transcribe Date/Time: Sep 15 2017 3:37PDictated by : DELLA MARK MDThis examination was interpreted and the report reviewed and electronically signed by: DELLA MARK MD on Sep 15 2017 3:39PM [id number] Normal [facility] CNOVon 08-30-2017 CNOV Office Visit (UCWSTR) GERMANIA DONIS ([id number]) 1945 FDate Time Provider Department08/30/17 1:15 PM PABLO HENDRICKSON) [facility] During your visit today, we recorded the following information about you: Temperature Pulse Respiration Blood pressure 102.4 degrees 119/minute 20/minute 100/60 Weight 68 kgCara R BOOKER Hendrickson 08/30/2017 2:20 PM SignedThis note was created using Zkatterriter.Chelsea Disla presents with a cough and chest congestion x 4 days. Non smoker, no historyof asthma. She is bringing up mucous. She does have a fever her of 102.4. Noflu shot this year. No nausea or diarrhea. Loss of appetite. Rib pain wit acough. No shortness of breath.Review of SystemsConstitutional: Positive for chills and fever.HENT: Positive for congestion and sore throat. Negative for ear pain.Eyes: Negative.Respiratory: Positive for cough and wheezing.Cardiovascula r: Negative.Gastrointesti nal: Negative.Endocrine: Negative.Genitourinary : Negative.Musculoskelet al: Negative.Allergic/Immu nologic: Negative.Neurological: Negative.Hematological : Negative.Psychiatric/B ehavioral: Negative.All other systems reviewed and are negative.No past medical history on file.Current Outpatient Prescriptions:ALPRAZOL AM ORAL Take by mouth. Disp: Rfl:ARIPIPRAZOLE (ABILIFY ORAL) Take by mouth. Disp: Rfl:LEVOTHYROXINE SODIUM (LEVOTHYROXINE ORAL) Take by mouth. Disp: Rfl:ibuprofen (MOTRIN) 800 mg tablet Take 1 tablet by mouth one time only for 1dose. Disp: 1 tablet Rfl: 0No current facility-administered medications for this visit.No past surgical history on file.No family history on file.Social HistorySubstance Use Topics- Smoking status: Never Smoker- Smokeless tobacco: Never Used- Alcohol use Not on fileObjectiveBP 100/60 Pulse 119 Temp 39.1 ?C (102.4 ?F) (Tympanic) Resp 20 Wt 68 kg(150 lb) SpO2 94%Physical ExamConstitutional: She is oriented to person, place, and time. She appearswell-developed and well-nourished.HENT:He ad: Normocephalic and atraumatic.Right Ear: Tympanic membrane and external ear normal.Left Ear: Tympanic membrane and external ear normal.Nose: Nose normal.Mouth/Throat: Oropharynx is clear and moist.Eyes: Conjunctivae and EOM are normal. Pupils are equal, round, and reactive tolight.Neck: Normal range of motion. Neck supple.Cardiovascular: Regular rhythm and normal heart sounds.Sinus tachycardia, 110Pulmonary/Chest: Effort normal and breath sounds normal. No respiratorydistress. She has no wheezes. She has no rales.Lymphadenopathy: She has no cervical adenopathy.Neurologica l: She is alert and oriented to person, place, and time.Skin: Skin is warm. No rash noted.Psychiatric: She has a normal mood and affect. Her behavior is normal.Nursing note and vitals reviewed.Assessment and PlanASSESSMENT/PLAN:1. Cough - ICD9: 786.2, ICD10: R05 (primary diagnosis)2. Bacterial pneumonia - ICD9: 482.9, ICD10: J15.9- Pt seen and examined. Chest xray here shows lingular pneumonia. I discussedwith the patient that I will start her on Levaquin however if she feels worseat any time she needs to go to the ED immediately. Her is here with herand was agreeable with this. She is not short of breath and lungs were clearhere. She was given antipyretics here and I also wrote for an inhaler. I didinstruct her on how to use this. Pt is well appearing here, non toxicappearing. She is not vomiting. She is mentating normally. I stressed severaltimes that if she is not feeling better in the next 2 days to go to the ED. Sheis saturating at 94% here on room air. If she does not end up going to the EDgave her instructions to see her PCP in the next few days also.AD [place]-CReferring Provider: SELF [200]Allergies As of Date: 08/30/2017(No Known Allergies)Date Reviewed: 08/30/2017Reviewed by: Zuleima Mcpherson LPN - Fully AssessedReason for Visit: Cough [28] Cmt: with congestion x 4 dayPrimary Visit Diagnosis:Cough [R05] Other Visit Diagnosis:Bacterial pneumonia [J15.9]Order(s):XR CHEST 2V FRONTAL/LAT [[id number]] Order #: [id number] FUTURE ibuprofen (MOTRIN) 800 mg tabletTake 1 tablet by mouth one time only for 1 dose.Disp: 1 tabletRfl: 0 levoFLOXacin (LEVAQUIN) 750 mg tabletTake 1 tablet by mouth once daily for 5 days.Disp: 5 tabletRfl: 0 albuterol HFA (PROAIR HFA) 90 mcg/actuation inhalerInhale 2 Puffs as instructed every 6 hours as needed.Disp: 1 InhalerRfl: 0Prescriptions as of 08/30/2017 Sig: ALPRAZOLAM ORAL Take by mouth. ABILIFY ORAL Take by mouth. LEVOTHYROXINE ORAL Take by mouth. IBUPROFEN 800 MG TABLET Take 1 tablet by mouth one ti* LEVOFLOXACIN 750 MG TABLET Take 1 tablet by mouth once d* ALBUTEROL SULFATE HFA 90 MCG/* Inhale 2 Puffs as instructed *Problem List As Of Date: 08/30/2017(None)Prescr iptions ordered this encounter Disp Refills Start End IBUPROFEN 800 MG TABLET 1 ta* 0 08/30/2017 08/30/2017 Class: In Office Route: ORAL Sig: Take 1 tablet by mouth one time only for 1 dose. LEVOFLOXACIN 750 MG TABLET 5 ta* 0 08/30/2017 09/04/2017 Route: ORAL Sig: Take 1 tablet by mouth once daily for 5 days. ALBUTEROL SULFATE HFA 90 MCG/ACTUATI* 1 In* 0 08/30/2017 Route: INHALATION Sig: Inhale 2 Puffs as instructed every 6 hours as needed. Status:Closed by PABLO HENDRICKSON PA-C on 08/30/17 Normal [facility] PROGRESSon 08-30-2017 PROGRESS HNO ID: [id number]: Sary Moon RtService: (none)Author Type: (none)Type: Progress NotesFiled: 08/30/2017 1:57 PMNote Text: Radiology Service Progress NotePATIENT NAME: Germania DonisMRN: [id number] OF SERVICE: August 30, 2017TIME: 1:46 PMPATIENT IDENTITY VERIFICATION COMPLETED USING TWO (2) METHODS: Patientconfirmed name verbally and Date of .PATIENT GENDER DATA: Female. status: : NoBreastfeeding status: NO.PATIENT RELEVANT IMPLANT DATA REVIEWED: Not ApplicableRADIOLOGY DEPARTMENT: General X-ray: Exam(s) Completed: Chest X-RayPERIPHERAL IV DATA: Not applicableSIGNED BY: Sary Moon RtJan2017 1:46 PM Normal [facility] PROGRESS HNO ID: [id number]: Pablo Tiwari) AthyService: (none)Author Type: Physician AssistantType: Progress NotesFiled: 08/30/2017 2:20 PMNote Text:This note was created using Marfeel.SubjectiveH Naif presents with a cough and chest congestion x 4 days. Non smoker, nohistory of asthma. She is bringing up mucous. She does have a fever her of102.4. No flu shot this year. No nausea or diarrhea. Loss of appetite. Ribpain wit a cough. No shortness of breath.Review of SystemsConstitutional: Positive for chills and fever.HENT: Positive for congestion and sore throat. Negative for ear pain.Eyes: Negative.Respiratory: Positive for cough and wheezing.Cardiovascula r: Negative.Gastrointesti nal: Negative.Endocrine: Negative.Genitourinary : Negative.Musculoskelet al: Negative.Allergic/Immu nologic: Negative.Neurological: Negative.Hematological : Negative.Psychiatric/B ehavioral: Negative.All other systems reviewed and are negative.No past medical history on file.Current Outpatient Prescriptions:ALPRAZOL AM ORAL Take by mouth. Disp: Rfl:ARIPIPRAZOLE (ABILIFY ORAL) Take by mouth. Disp: Rfl:LEVOTHYROXINE SODIUM (LEVOTHYROXINE ORAL) Take by mouth. Disp: Rfl:ibuprofen (MOTRIN) 800 mg tablet Take 1 tablet by mouth one time only for1 dose. Disp: 1 tablet Rfl: 0No current facility-administered medications for this visit.No past surgical history on file.No family history on file.Social HistorySubstance Use Topics- Smoking status: Never Smoker- Smokeless tobacco: Never Used- Alcohol use Not on fileObjectiveBP 100/60 Pulse 119 Temp 39.1 ?C (102.4 ?F) (Tympanic) Resp 20 Wt68 kg (150 lb) SpO2 94%Physical ExamConstitutional: She is oriented to person, place, and time. She appearswell-developed and well-nourished.HENT:He ad: Normocephalic and atraumatic.Right Ear: Tympanic membrane and external ear normal.Left Ear: Tympanic membrane and external ear normal.Nose: Nose normal.Mouth/Throat: Oropharynx is clear and moist.Eyes: Conjunctivae and EOM are normal. Pupils are equal, round, andreactive to light.Neck: Normal range of motion. Neck supple.Cardiovascular: Regular rhythm and normal heart sounds.Sinus tachycardia, 110Pulmonary/Chest: Effort normal and breath sounds normal. No respiratorydistress. She has no wheezes. She has no rales.Lymphadenopathy: She has no cervical adenopathy.Neurologica l: She is alert and oriented to person, place, and time.Skin: Skin is warm. No rash noted.Psychiatric: She has a normal mood and affect. Her behavior is normal.Nursing note and vitals reviewed.Assessment and PlanASSESSMENT/PLAN:1. Cough - ICD9: 786.2, ICD10: R05 (primary diagnosis)2. Bacterial pneumonia - ICD9: 482.9, ICD10: J15.9- Pt seen and examined. Chest xray here shows lingular pneumonia. Idiscussed with the patient that I will start her on Levaquin however carlos feels worse at any time she needs to go to the ED immediately. Victor Manuel is here with her and was agreeable with this. She is not short ofbreath and lungs were clear here. She was given antipyretics here and Shena wrote for an inhaler. I did instruct her on how to use this. Pt iswell appearing here, non toxic appearing. She is not vomiting. She ismentating normally. I stressed several times that if she is not feelingbetter in the next 2 days to go to the ED. She is saturating at 94% hereon room air. If she does not end up going to the ED gave her instructionsto see her PCP in the next few days also.Pablo Hendrickson PA-C Normal [facility] XR CHEST 2V FRONTAL/LATon XR CHEST 2V FRONTAL/LAT * * *Final Repor t* * *DATE OF EXAM: Aug 30 2017 1:57PM WOX [id number] - XR CHEST 2V FRONTAL/LAT / REASON: Cough * * * * Physician Interpretation * * * * EXAMINATION: CHEST RADIOGRAPH (2 VIEW FRONTAL and LATERAL)Clinical History: CoughM: XC2_3Comparison: NoneRESULT:Lines, tubes, and devices: None.Lungs and pleura: There is consolidation in the lingula. Small vague patchy opacity right upper lobe overlying the scapula, anterior right third rib and posterior right sixth rib. Probable small calcified granuloma left upper lobe. There is no pleural effusion or pneumothorax. No consolidation. No lung mass. No pleural effusion.Cardiomediast inal silhouette: Normal heart size. There is aortic atherosclerotic calcification.Other: Small amorphous calcification adjacent to the left humeral head is probably from rotator cuff calcific tendinitis. There is no acute bony abnormality identified.IMPRESSION: Consolidation in the lingula most commonly from pneumonia. Small patchy opacity right upper lobe nonspecific but also may be infectious.Follow-up needs to be performed to assess for complete resolution.Transcripti onist: LINDY Transcribe Date/Time: Aug 30 2017 2:00PDictated by : PRIMITIVO ENAMORADO MDThis examination was interpreted and the report reviewed and electronically signed by: PRIMITIVO ENAMORADO MD on Aug 30 2017 2:02PM [id number] Normal [facility] Vital Signs Date Time Vital Sign Value Performing Clinician Faci litalley 12-20-2024 10:01-0400 Body weight 61.[address] Sowmya Cabrera MD Work Phone: [facility] 12-07-2024 14:49-0400 Body temperature 97.6 [degF] Dr. Sowmya Cabrera MD Work Phone: [facility] 12-07-2024 14:49-0400 Diastolic blood pressure 70 mm[Hg] Dr. Sowmya Cabrera MD Work Phone: [facility] 12-07-2024 14:49-0400 Heart rate 89 /min Dr. Sowmya Cabrera MD Work Phone: [facility] 12-07-2024 14:49-0400 Respiratory rate 18 /min Dr. Sowmya Cabrera MD Work Phone: [facility] 12-07-2024 14:49-0400 SaO2% (BldA) [Mass fraction] 98 % Dr. Sowmya Cabrera MD Work Phone: [phone] [place] [address] 12-07-2024 14:49-0400 Systolic blood pressure 134 mm[Hg] Dr. Sowmya Cabrera MD Work Phone: [facility] 12-05-2024 11:12-0400 Body height 157.[address] Sowmya Cabrera MD Work Phone: [facility] 12-05-2024 11:12-0400 Body weight 65.[address] Sowmya Cabrera MD Work Phone: [facility] 12-05-2024 05:57-0400 Inhaled oxygen flow rate 2 L/min Dr. Sowmya Cabrera MD Work Phone: [facility] 12-04-2024 15:59-0400 Body mass index (BMI) [Ratio] 26.5 kg/m2 Dr. Sowmya Cabrera MD Work Phone: [facility] 12-04-2024 12:19-0400 Body height 157.[address] Sowmya Cabrera MD Work Phone: [facility] 12-04-2024 12:19-0400 Body mass index (BMI) [Ratio] 26.5 kg/m2 Dr. Sowmya Cabrera MD Work Phone: [facility] 12-04-2024 12:19-0400 Body temperature 98 [degF] Dr. Sowmya Cabrera MD Work Phone: [facility] 12-04-2024 12:19-0400 Body weight 65.[address] Sowmya Cabrera MD Work Phone: [facility] 12-04-2024 12:19-0400 Diastolic blood pressure 61 mm[Hg] Dr. Sowmya Cabrera MD Work Phone: [facility] 12-04-2024 12:19-0400 Heart rate 79 /min Dr. Sowmya Cabrera MD Work Phone: [facility] 12-04-2024 12:19-0400 Respiratory rate 14 /min Dr. Sowmya Cabrera MD Work Phone: [facility] 12-04-2024 12:19-0400 SaO2% (BldA) [Mass fraction] 98 % Dr. Sowmya Cabrera MD Work Phone: 4(490)[phone] [place] [address] 12-04-2024 12:19-0400 Systolic blood pressure 91 mm[Hg] Dr. Sowmya Cabrera MD Work Phone: [facility] 11-04-2024 10:54-0400 Body temperature 97.9 [degF] Dr. Sowmya Cabrera MD Work Phone: [facility] 11-04-2024 10:54-0400 Diastolic blood pressure 52 mm[Hg] Dr. Sowmya Cabrera MD Work Phone: [facility] 11-04-2024 10:54-0400 Heart rate 69 /min Dr. Sowmya Cabrera MD Work Phone: [facility] 11-04-2024 10:54-0400 Respiratory rate 14 /min Dr. Sowmya Cabrera MD Work Phone: [facility] 11-04-2024 10:54-0400 SaO2% (BldA) [Mass fraction] 95 % Dr. Sowmya Cabrera MD Work Phone: 3(600)424-226181 [place] [address] 11-04-2024 10:54-0400 Systolic blood pressure 101 mm[Hg] Dr. Sowmya Cabrera MD Work Phone: [facility] 11-04-2024 06:19-0400 Body height 165.[address] Sowmya Cabrera MD Work Phone: 1(844)389-574581 [place] [address] 11-04-2024 06:19-0400 Body mass index (BMI) [Ratio] 23.5 kg/m2 Dr. Sowmya Cabrera MD Work Phone: 5(496)525-300181 [place] [address] 11-04-2024 06:19-0400 Body weight 64.[address] Sowmya Cabrera MD Work Phone: 2(732)134-250262 [place] [address] 09-27-2024 14:13-0500 Body mass index (BMI) [Ratio] 23.8 kg/m2 Dr. Sowmya Cabrera MD Work Phone: 8(677)646-852062 [place] [address] 09-27-2024 14:13-0500 Body temperature 97.3 [degF] Dr. Sowmya Cabrera MD Work Phone: 7(249)973-791362 [place] [address] 09-27-2024 14:13-0500 Body weight 64.[address] Sowmya Cabrera MD Work Phone: 8(046)021-847462 [place] [address] 09-27-2024 14:13-0500 Diastolic blood pressure 49 mm[Hg] Dr. Sowmya Cabrera MD Work Phone: 0(360)248-762162 [place] [address] 09-27-2024 14:13-0500 Heart rate 87 /min Dr. Sowmya Cabrera MD Work Phone: 0(859)953-227662 [place] [address] 09-27-2024 14:13-0500 Respiratory rate 17 /min Dr. Sowmya Cabrera MD Work Phone: 6(095)223-102962 [place] [address] 09-27-2024 14:13-0500 SaO2% (BldA) [Mass fraction] 94 % Dr. Sowmya Cabrera MD Work Phone: 0(367)234-514362 [place] [address] 09-27-2024 14:13-0500 Systolic blood pressure 80 mm[Hg] Dr. Sowmya Cabrera MD Work Phone: 0(809)737-914481 [place] [address] Encounters Encounter Date Encounter Type Care Provider Facility Start: 12-20-2024 End: 12-20-[address] Darrick Light MD -[facility] Work Phone: Start: 12-20-2024 End: 12-20-2024 ambulatory Sowmya Cabrera Facility:[facility] Start: 12-07-2024 Non-patient / Non-visit Eleonora Jeremy [facility] Start: 12-06-2024 Non-patient / Non-visit Eleonorarose mary Luna [facility] Start: 12-05-2024 Non-patient / Non-visit Dr. Darrick Light MD -[facility] Start: 12-04-2024 ambulatory Darrick Light Facility: [facility] Start: 12-04-2024 End: 12-07-2024 Evaluation and management of inpatient Dr. Darrick Light MD -[facility] Work Phone: Start: 12-04-2024 Admission to [facility] surgery guy Dr. Darrick Light MD -[facility] Inpatients Work Phone: Start: 12-04-[address] Mann Cabrera MD Work Phone: [facility] Work Phone: Start: 12-04-2024 Non-patient / Non-visit Dr. Darrick Light MD -[facility] Start: 11-19-2024 End: 11-19-[address] Shelly Leonard MD -[facility] Work Phone: Start: 11-19-2024 End: 11-19-2024 ambulatory Sowmya Cabrera Facility:[facility] Start: 11-16-2024 Encounter for other preprocedural examination Shelly Leonard [facility] Start: 11-04-2024 ambulatory Shelly Leonard [facility] y:[facility] Start: 11-04-2024 Non-patient / Non-visit Dr. Todd Leonard MD -[facility] Start: 11-04-2024 End: 11-04-2024 Admission to [facility] day surgery center Dr. Shelly Leonard MD -[facility] Start: 11-04-2024 End: 11-04-[address] Sowmya Cabrera MD Work Phone: [facility] Work Phone: Start: 10-04-2024 End: 10-04-[address] Sowmya Cabrera MD -[facility] Work Phone: Start: 10-04-2024 End: 10-04-2024 ambulatory Sowmya Cabrera Facility:[facility] Start: 09-27-2024 End: 09-27-[address] Shelly Leonard MD -[facility] Work Phone: Start: 09-27-2024 End: 09-27-2024 ambulatory Sowmya Cabrera Facility:[facility] Start: 08-12-2024 End: 08-12-2024 ambulatory Sowmya Cabrera Facility:[facility] Start: 08-12-[address] Lex Rhoades MD -Physical Therapy Work Phone: Start: 07-20-2024 End: 07-20-[address] Sowmya Cabrera MD -[facility] Work Phone: Start: 07-20-2024 End: 07-20-2024 ambulatory Sowmya Cabrera Facility:[facility] Start: 07-06-2024 End: 07-06-2024 [facility] Start: 04-19-2024 End: 04-19-2024 ambulatory [facility] Facility:[facility] Start: 02-17-2024 ambulatory [facility] Start: 02-17-2024 End: 02-17-2024 [facility] Start: 10-21-2023 End: 10-21-2023 ambulatory [facility] Work Phone: Start: 10-21-2023 End: 10-21-2023 Patient encounter procedure [facility] Start: 01-24-2023 End: 01-24-2023 ambulatory [facility] Work Phone: Start: 01-24-2023 End: 01-24-2023 Discharged Recurring [facility]-Physical Therapy Start: 01-02-2023 End: 01-02-2023 Patient encounter procedure [facility]-Outpatient Bone Densitometry Start: 12-16-2022 End: 12-16-2022 ambulatory [facility] Work Phone: Start: 12-16-2022 End: 12-16-2022 Patient encounter procedure [facility] Start: 06-24-2022 End: 06-24-2022 ambulatory [facility] Work Phone: Start: 06-24-2022 End: 06-24-2022 Patient encounter procedure [facility] Start: 04-30-2022 End: 04-30-[address] Mann Cabrera Work Phone: [facility] Work Phone: Start: 04-30-2022 End: 04-30-[address] Mann Cabrera Work Phone: [facility] Start: 04-22-2022 End: 04-22-[address] Mann Cabrera Work Phone: [facility] Work Phone: Start: 04-22-2022 End: 04-22-[address] Mann Cabrera Work Phone: [facility] Start: 01-24-2022 Non-patient / Non-visit Dr. Zaynab Cabrera Work Phone: [facility] Start: 01-24-2022 End: 01-24-[address] Mann Cabrera Work Phone: [facility]-Cardiovascula r Services Start: 01-04-2022 End: 01-04-2022 Patient encounter procedure [facility]-Laboratory, Specimen Start: 11-23-2021 End: 11-23-2021 Patient encounter procedure [facility]-Laboratory, [facility] Start: 08-01-2021 Patient encounter procedure [facility]-Laboratory, [facility] Start: 09-15-2017 End: 09-15-2017 Ambulatory JUANITA COATS [facility] Start: 08-30-2017 End: 08-30-2017 Ambulatory PABLO HENDRICKSON ([place]) [facility] Procedures Date Procedure Procedure Detail Performing Clinician Start: 12-07-[address] Sowmya Cabrera MD Work Phone: Start: 12-07-2024 Serum inorganic phos phate measurement Dr. Sowmya Cabrera MD Work Phone: Start: 12-04-[address] Dio Cabrera MD Work Phone: Start: 12-04-2024 Computed tomography of abdomen and pelvis with contrast Dr. Sowmya Cabrera MD Work Phone: Start: 12-04-2024 Urnls dip stick/tabl et reagent auto microscopy Dr. Sowmya Cabrera MD Work Phone: Start: 11-04-2024 Repair of incisional hernia using surgical mesh Dr. Sowmya Cabrera MD Work Phone: Start: 10-04-2024 MRI of cervical spine Jane Cabrera MD Work Phone: Start: 07-20-2024 X-ray of cervical spine Dr. Sowmya Cabrera MD Work Phone: Start: 01-02-2023 Dual energy X-ray absorptiometry Start: 01-02-2023 Screening mammography Start: 12-16-2022 X-ray of lumbosacral spine Start: 04-22-2022 Radiologic examinati on of knee Dr. Mann Cabrera Work Phone: Start: 01-04-2022 Bacteria identificat ion test Start: 01-04-2022 Throat culture Start: 12-08-2021 Bacteria identified in Urine by Culture Start: 08-01-2021 Urine culture Bacteria identificat ion test Dr. Mann Cabrera Work Phone: Throat culture Dr. Markos Cabrera Work Phone: Plan of Treatment Date Care Activity Detail Author Start: 12-07-2024 Patient discharge [facility] Start: 12-05-2024 Ambulation therapy management [facility] Start: 12-05-2024 Oxygen therapy [facility] Start: 12-04-2024 Application of intermittent pneumatic compression device [facility] Start: 12-04-2024 Following clinical pathway protocol [facility] Start: 12-04-2024 Application of ice collar, cap or bag [facility] Start: 12-04-2024 Admission procedure [facility] Start: 12-04-2024 Laparoscopy Diagnostic Laparoscopy (Not Applicable) [facility] Start: 12-04-2024 Hospital admission, emergency, from emergency room, medical nature [facility] Start: 11-04-2024 Anesthesia hernia repair lower abdomen nos ANESTH REPAIR OF HERNIA [facility] Start: 11-04-2024 RPR AA HRN 1ST < 3 CM RDC RPR AA HRN 1ST < 3 CM RDC [facility] Start: 11-04-2024 Patient discharge [facility] Start: 10-21-2024 Electrocardiographic procedure [facility] Patient referral [facility] Work Phone: Payers Date Payer Category Payer Self-pay [id number] 2021 Unknown [id number] ed [id number] 2016 Unknown [id number] 2012 Medicare [id number] Unknown [id number] 2.16.8 [id number] Unknown [id number] 2.16.8 40.1.242265.3.579.2.462 Unknown [id number] 2.16.8 40.1.978530.3.579.2.462 Unknown [id number] 2.16.8 40.1.774587.3.579.2.462 Unknown [id number] 2.16.8 40.1.264686.3.579.2.462 Unknown [id number] 2.16.8 40.1.436618.3.579.2.462 Unknown [id number] 2.16.8 40.1.288364.3.579.2.462 Unknown [id number] 2.16.8 40.1.362783.3.579.2.462 Unknown [id number] 2.16.8 40.1.049725.3.579.2.462 Unknown [id number] 2.16.8 40.1.811841.3.579.2.462 Unknown [id number] 2.16.8 40.1.512888.3.579.2.462 Unknown [id number] 2.16.8 40.1.174910.3.579.2.462 Unknown [id number] 2.16.8 40.1.941706.3.579.2.462 Unknown [id number] 2.16.8 40.1.533664.3.579.2.462 Unknown [id number] 2.16.8 40.1.075989.3.579.2.462 Unknown [id number] 2.16.8 40.1.193333.3.579.2.462 Unknown [id number] 2.16.8 40.1.027995.3.579.2.462 Social History Date Type Detail Facility Tobacco smoking status [facility]IS Unknown if ever smoked [facility] Work Phone: Start: 1945 Sex Assigned At Female [facility] Start: 10-21-2024 End: 12-04-2024 Tobacco smoking status NHIS Never smoked tobacco (finding) [facility] Start: 11-04-2024 End: 12-07-2024 Sex Female (finding) [facility] NEGATED: Highlighted row Not [facility] Medical Equipment Procedure Code Equipment Code Equipment Origin al Text Equipment Identifier Dates Repair, hernia, incisional, with mesh insertion MESH,VENTLEX ST SM 4.3CM FDA Start: 11-04-2024 Repair, hernia, incisional, with mesh insertion MESH,VENTLEX ST SM 4.3CM FDA Start: 11-04-2024 Repair, hernia, incisional, with mesh insertion MESH,VENTLEX ST SM 4.3CM FDA Start: 11-04-2024 Laparoscopy, diagnostic Surgical staple loading unit, cutting [id number] FDA Start: 12-04-2024 Laparoscopy, diagnostic Open-surgery manual linear cutting stapler, single-use [id number] FDA Start: 12-04-2024 Goals Date Patient Goal Desired Activity /State Functional Status Date Assessment Result Facility 12-07-2024 Functional status [facility] Work Phone: Mental Status Date Assessment Result Facility 12-07-2024 Cognitive function Voice/Name [facility] Work Phone: 11-04-2024 Cognitive function Voice/Name;Touch/Shaki ng [facility] Work Phone: Clinical Notes 01-24-2023 to 12-07-2024 Note Date & Type Note Facility 12-07-2024 Discharge summary [facility] 12-07-2024 Discharge summary Note Date/Time December 07, 2024 2:30pm [facility] Medical Records Department [address] [place] [address] Discharge Summary 12/07/24 1100 MR#: [id number] Acct: [id number] Name: GERMANIA DONIS Rep #:[id number] : 1945 79 From: Eleonora CHERRYC PCP: Dr. Sowmya Cabrera MD Status :ADM IN Location: [facility] [id number] Providers Date of Admission: 12/04/24 Primary Care Physician: Dr. Sowmya Cabrera MD Reason For Visit: SMALL BOWEL PERFORATION Diagnosis Discharge Diagnosis (1) Perforated small intestine: Status: Acute Code(s): K63.1 - Perforation of intestine (nontraumatic) (2) Intra-abdominal abscess: Status: Acute Code(s): K65.1 - Peritoneal abscess (3) Pneumoperitoneum: Status: Acute Code(s): K66.8 - Other specified disorders of peritoneum (4) Abdominal pain, acute: Status: Acute Code(s): R10.9 - Unspecified abdominal pain Plan I am following this patient in conjunction with Dr. Light. He has independently evaluated this patient. Labs reviewed. Phosphorous replaced. Remove MATTHEW later today Increased diet to transitional Plan for discharge later today Medications at Discharge Home Medications alendronate 35 mg tablet 35 mg PO QWEEK 09/27/24 atorvastatin 80 mg tablet 80 mg PO DAILY 09/27/24 baclofen 10 mg tablet 10 mg PO DAILY 09/27/24 calcium carbonate 500 mg PO DAILY 09/27/24 levothyroxine 100 mcg capsule 100 mcg PO DAILY 09/27/24 socihlcg-rhsvfwmv-eguvo acid 240 mcg-vit K1 150 mcg-herb 357 tablet (Alive Women's 50 Plus Ultra Multivitamin) 1 tab PO DAILY 09/27/24 vitamins A,C,P-sovr-ovcyhi 4,296 mcg-226 mg-90 mg capsule (PreserVision AREDS) 1cap PO BID 09/27/24 zolpidem 10 mg tablet 10 mg PO QHS 09/27/24 ketoconazole 2 % shampoo 1 applic topical WESA 12/04/24 amoxicillin 875 mg-potassium clavulanate 125 mg tablet 1 tab PO BID 1 day #2 tabs 12/07/24 Hospital Course Operations - (Diagnostic laparoscopy with small bowel resection and reanastomosis) Summary of Care Provided Minutes Spent on Discharge: 30 Hospital Course: Patient is a 79 y/o F who presented with a 3 day history of periumbilical pain. CT scan of ab/pel demonstrated probable small bowel perforation with several foci of pneumoperitoneum. Dr. Light performed a Diagnostic laparoscopy with small bowel resection and reanastomosis on 12/04/24. Patient tolerated the procedure well. Patient had an uneventful hospitalization. Upon discharge, she was tolerating a transitional diet. She denies nausea, vomiting, fever. She notes very little abdominal pain. She notes positive flatus and BM. Discharged instruction were discussed with the patient. She will follow-up with our office in 2 weeks. Weight / BMI Weight Weight: 145 lb 0.004 oz Body Mass Index (BMI) 26.5 ABG / Lab / Microbiology Data 12/07/24 06:38 12/07/24 06:38 Laboratory: Laboratory Results - last 24 hr 12/07/24 06:38: WBC 4.7, RBC 3.48 L, Hgb 10.4 L, Hct 31.8 L, MCV 91.4, MCH 29.9,MCHC 32.7, RDW Std Deviation 47.8 H, RDW Coeff of Zia 14.3, Plt Count 217, MPV 10.7, Immature Gran % (Auto) 0.900, Neut % (Auto) 70.8 H, Lymph % (Auto) 16.5 L,Branch % (Auto) 8.6, Eos % (Auto) 2.6, Baso % (Auto) 0.6, Absolute Neuts (auto) 3.3, Absolute Lymphs (auto) 0.77 L, Nucleated RBC % 0, Sodium 141, Potassium 3.8, Chloride 113 H, Carbon Dioxide 19.9 L, Anion Gap 9, BUN 12, Creatinine 0.71, Estim Creat Clear Calc 52.40, Est GFR (MDRD) Non-Af 88, BUN/Creatinine Ratio 17.0, Glucose 87, Calcium 8.1, Phosphorus 2.4 L, Magnesium 2.1 D/C Instructions Discharge Diet: - (low fiber diet (recommendations included)) Discharge Activity: May Not Drive (3-5 days) and May Shower (in 48 hours. No tubbatheing for 2 weeks) Lifting Restrictions: No lifting greater than 10 pounds for 4 weeks Call your doctor if your incision/area has: Continuous Slow Oozing, Sudden Increased Bleeding, Increased Pain/ Swelling, Increased Redness, Foul Smelling Discharge and Swelling at the incision site Call your doctor if you observe: Fever of 101 or Higher Suture Line Care: Avoid Pulling/Pushing and Avoid Pinching/Bending Change Dressing in: 1 day Cleanse incision/area with: Soap & Water DC O2, CPAP, BIPAP Needs Home O2 Discharge instructions: No DC home with Oxygen: No Please Follow Up With: Darrick Light MD When: Please contact our office to schedule a 2 week follow-up at [phone], option #2 Meaningful Use Info Meaningful Use Meaningful Use Diagnoses (Choose all that apply): None applicable Ischemic Stroke Statin Dosing Therapy Reference: STATIN DOSE THERAPY REFERENCE: * Patients > 75 years receive moderate or high dose statin therapy. * Patients 75 years or YOUNGER should receive HIGH intensity statin dose unless contraindicated. You will be required to document reason for non-treatment if statin daily dose does not meet guidelines. HIGH DOSE STATIN THERAPY DAILY Atorvastatin > than or = to 40 mg Rosuvastatin > than or = to 20 mg Amlodipine + Atorvastatin > than or = to 2.5/40 mg Ezetimibe + Simvastatin 10/80 mg Simvastatin 80mg Discharge Plan Admission Admit Date/Time: 12/04/24 14:29 Primary Reason for Your Visit: Perforated small intestine Attending Provider: Darrick Light Primary Care Provider: Sowmya Cabrera Instructions Additional Instructions / Restrictions: Recommended diet below: What are low-fiber foods? If your doctor tells you to follow a low-fiber diet, here are low-fiber foods you can eat and higher-fiber foods you should avoid. Remember to always choose foods that you would normally eat. Do not try any foods that caused you discomfort or allergic reactions in the past. If you are on a ?low-residue diet,? your food choices are even more restricted than those listed below. Talk with your cancer care team or dietitian if you have questions about certainfoods or amounts. Meat, fish, poultry, and protein Eat: Tender cuts of meat Ground meat Tofu Fish and shellfish Smooth peanut butter Eggs Bake, broil, or poach meats, and use mild seasonings. Try preparing meats as stews, roasts, meatloaves, casseroles, sandwiches, and soups using ingredients on the approved lists. Scramble, poach, or boil eggs; or make omelets, souffl?s, custard, puddings, andcasseroles, using ingredients noted below. You might want to ask your doctor, nurse, or dietitian about other foods may be OK for you to eat, and find out when you can go back to your normal diet. Avoid: All beans, nuts, peas, lentils, and legumes Processed meats, hot dogs, sausage, and cold cuts Tough meats with gristle Dairy: Milk and cheese Eat: Only in small to medium amounts and only if they don?t cause problems for you Milk, chocolate milk, buttermilk, and milk drinks Yogurt without seeds or granola Sour cream Cheese Cottage cheese Custard or pudding Ice cream or frozen desserts (without nuts) Cream sauces, soups, and casseroles You can use these items in desserts, snacks, or breads. Bread, cereals, and grains Eat: White breads, waffles, Togolese toast, plain white rolls, or white bread toast Pretzels Plain pasta or noodles White rice Crackers, zwieback, monica, and matzoh (no cracked wheat or whole grains) Cereals without whole grains, added fiber, seeds, raisins, or other dried fruit Use white flour for baking and making sauces. Grains, such as white rice, Cream of Wheat, or grits, should be well-cooked. Include the above grains in casseroles, dumplings, souffl?s, cheese strata, kugels, and pudding. Avoid any food that contains: Brown or wild rice Whole grains, cracked grains, or whole wheat products Kasha (buckwheat) Cornbread or cornmeal Deven crackers Bran Wheat germ Nuts Granola Coconut Dried fruit Seeds Vegetables and potatoes Eat: Tender, well-cooked fresh or canned vegetables without seeds, stems, or skins Cooked sweet or white potatoes without skins Strained vegetable juices without pulp or spices You can also eat these with cream sauces, or in soups, souffl?s, kugels, and casseroles. Avoid: All raw or steamed vegetables All types of beans Potatoes with skin Peas [place] Cabbage, broccoli, cauliflower, [place] sprouts, and greens Sauerkraut Onions Fruits and desserts Eat: Soft canned or cooked fruit without seeds or skins (small amounts) Small amounts of well-ripened banana Strained or clear juices Small amounts of soft cantaloupe or honeydew melon Cookies and other desserts without whole grains, dried fruit, berries, nuts, or coconut Sherbet and popsicles Serving suggestions include gelatins, milk shakes, frozen desserts, puddings, tapioca, cakes, and sauces. Avoid: All raw or dried fruits Berries Prune juice, prunes, and raisins Other foods Eat: Mayonnaise and mild salad dressings Margarine, butter, cream, and oils in small amounts Plain gravies Plain bouillon and broth Ketchup and mild mustard Spices, cooked herbs, and salt Sugar, honey, and syrup Clear jellies Hard candy and marshmallows Plain chocolate Avoid: Marmalade Pickles, olives, relish, and horseradish Popcorn Potato chips Liquids Keep in mind that low-fiber foods cause fewer bowel movements and smaller stools. You may need to drink extra fluids to help prevent constipation while you are on a low-fiber diet. Drink plenty of water unless your doctor tells you otherwise, and use juices and milk as noted above. Discharge Orders/Prescriptions Prescriptions: New amoxicillin-pot clavulanate 875-125 mg Tablet 1 tab PO BID 1 Days Qty: 2 0RF Continued levothyroxine 100 mcg capsule 100 mcg PO DAILY atorvastatin 80 mg tablet 80 mg PO DAILY zolpidem 10 mg tablet 10 mg PO QHS baclofen 10 mg tablet 10 mg PO DAILY Patient Comments: PT TAKES MORE THAN ONCE A DAY. PreserVision AREDS 4,296 mcg-226 mg-90 mg capsule 1 cap PO BID calcium carbonate 500 mg calcium (1,250 mg) tablet 500 mg PO DAILY Alive Women's 50 Plus Ultra MV 240-150 mcg tablet 1 tab PO DAILY alendronate 35 mg tablet 35 mg PO QWEEK Rx Instructions: TAKE ON SUNDAYS ketoconazole 2 % shampoo 1 applic topical WESA Referrals / Follow Up: Sowmya Cabrera MD [Primary Care Provider] - Darrick Light MD [Med Staff - Active Staff] - 12/21/24 Disposition Disposition (needs filled in before D/C Order can be placed): Home, Self Care Charges/Coding Visit Charges Inpatient E&M: 76515 Disch Hosp (post-op; no charge) 12/07/24 1430 <Electronically signed by Eleonora DUONG PA-C> Cosigner Signature (if applicable): CC: BOOKER Montaño; Dr. Sowmya Cabrera MD~ Signed [facility] Work Phone: 1(605) 388-673104-15-2025 Progress note Author Eleonora Montaño [facility] Note Date/Time December 07, 2024 9:0 3am [facility] Medical Records Department [address] [place] [address] Progress Note - Surgery 12/07/2446 MR#: [id number] Acct: [id number] Name: GERMANIA DONIS Rep #:[id number] : 1945 79 From: Eleonora DUONG PA-C PCP: Dr. Sowmya Cabrera MD Status :ADM IN Location: [place] [address] Subjective Subjective Patient evaluated resting comfortably in bed. She notes passing flatus and having multiple bowel movements. She denies any nausea, vomiting. She notes minimal amount of abdominal discomfort. She is tolerating a full liquid diet. Objective Data Objective Data Vital Signs: Vital Signs Temp Pulse Resp BP Pulse Ox O2 Del Method O2 Flow Rate 98 F 70 18 132/56 H 96 Room Air 2 12/07/24 08:13 12/07/24 08:13 12/07/24 08:13 12/07/24 08:13 12/07/24 08:13 12/07/24 08:13 12/05/24 05:57 Oxygen Flow Rate (L/min) 2 Oxygen Delivery Method Room Air Weight: 145 lb 0.004 oz Body Mass Index (BMI) 26.5 Intake & Output: Intake and Output for Last 24 Hours 12/05/24 12/06/24 12/07/24 23:59 23:59 23:59 Intake Total 3893.33 / 4193.33 2195 / 2195 1117.08 / 1117.08 Output Total 120 / 120 30 / 50 50 / 50 Balance 3773.33 / 4073.33 2165 / 2145 1067.08 / 1067.08 Lab / Micro Data 12/07/24 06:38 12/07/24 06:38 Labs: Laboratory Results - last 24 hr 12/07/24 06:38: WBC 4.7, RBC 3.48 L, Hgb 10.4 L, Hct 31.8 L, MCV 91.4, MCH 29.9,MCHC 32.7, RDW Std Deviation 47.8 H, RDW Coeff of Zia 14.3, Plt Count 217, MPV 10.7, Immature Gran % (Auto) 0.900, Neut % (Auto) 70.8 H, Lymph % (Auto) 16.5 L,Branch % (Auto) 8.6, Eos % (Auto) 2.6, Baso % (Auto) 0.6, Absolute Neuts (auto) 3.3, Absolute Lymphs (auto) 0.77 L, Nucleated RBC % 0, Sodium 141, Potassium 3.8, Chloride 113 H, Carbon Dioxide 19.9 L, Anion Gap 9, BUN 12, Creatinine 0.71, Estim Creat Clear Calc 52.40, Est GFR (MDRD) Non-Af 88, BUN/Creatinine Ratio 17.0, Glucose 87, Calcium 8.1, Phosphorus 2.4 L, Magnesium 2.1 Physical Exam GI GI Narrative: Abdomen- soft, nontender. Incisions c/d/i. No erythema or infection noted. MATTHEW dressing changes. Serosanguineous fluid noted. Assessment & Plan Assessment/Plan (1) Perforated small intestine: (2) Intra-abdominal abscess: (3) Pneumoperitoneum: (4) Abdominal pain, acute: PLAN: Plan I am following this patient in conjunction with Dr. Light. He has independently evaluated this patient. Labs reviewed. Phosphorous replaced. Remove MATTHEW later today Increased diet to transitional Plan for discharge later today Charges/Coding Visit Charges Inpatient E&M: 64881 Subs Hosp L1 (no charge; post-op) 12/07/24 0903 <Electronically signed by Eleonora DUONG PA-C> Cosigner Signature (if applicable): CC: ~ Signed [facility] Work Phone: 1(955) 793-565204-15-2025 [facility] Medical Records Department [address] [place] [address] Discharge Summary 12/07/24 1100 MR#: [id number] Acct: [id number] Name: GERMANIA DONIS Rep #: [id number] : 1945 79 From: Eleonora DUONG PA-C PCP: Dr. Sowmya Cabrera MD Status:ADM IN Location: [facility] [id number] Providers Date of Admission: 12/04/24 Primary Care Physician: Dr. Sowmya Cabrera MD Reason For Visit: SMALL BOWEL PERFORATION Diagnosis Discharge Diagnosis (1) Perforated small intestine: Status: Acute Code(s): K63.1 - Perforation of intestine (nontraumatic) (2) Intra-abdominal abscess: Status: Acute Code(s): K65.1 - Peritoneal abscess (3) Pneumoperitoneum: Status: Acute Code(s): K66.8 - Other specified disorders of peritoneum (4) Abdominal pain, acute: Status: Acute Code(s): R10.9 - Unspecified abdominal pain Plan I am following this patient in conjunction with Dr. Light. He has independently evaluated this patient. Labs reviewed. Phosphorous replaced. Remove MATTHEW later today Increased diet to transitional Plan for discharge later today Medications at Discharge Home Medications alendronate 35 mg tablet 35 mg PO QWEEK 09/27/24 atorvastatin 80 mg tablet 80 mg PO DAILY 09/27/24 baclofen 10 mg tablet 10 mg PO DAILY 09/27/24 calcium carbonate 500 mg PO DAILY 09/27/24 levothyroxine 100 mcg capsule 100 mcg PO DAILY 09/27/24 aqpagrzf-szwfaplr-lzurb acid 240 mcg-vit K1 150 mcg-herb 357 tablet (Alive Women's 50 Plus Ultra Multivitamin) 1 tab PO DAILY 09/27/24 vitamins A,C,R-taop-znjvkf 4,296 mcg-226 mg-90 mg capsule (PreserVision AREDS) 1 cap PO BID 09/27/24 zolpidem 10 mg tablet 10 mg PO QHS 09/27/24 ketoconazole 2 % shampoo 1 applic topical WESA 12/04/24 amoxicillin 875 mg-potassium clavulanate 125 mg tablet 1 tab PO BID 1 day #2 tabs 12/07/24 Hospital Course Operations - (Diagnostic laparoscopy with small bowel resection and reanastomosis) Summary of Care Provided Minutes Spent on Discharge: 30 Hospital Course: Patient is a 79 y/o F who presented with a 3 day history of periumbilical pain. CT scan of ab/pel demonstrated probable small bowel perforation with several foci of pneumoperitoneum. Dr. Light performed a Diagnostic laparoscopy with small bowel resection and reanastomosis on 12/04/24. Patient tolerated the procedure well. Patient had an uneventful hospitalization. Upon discharge, she was tolerating a transitional diet. She denies nausea, vomiting, fever. She notes very little abdominal pain. She notes positive flatus and BM. Discharged instruction were discussed with the patient. She will follow-up with our office in 2 weeks. Weight / BMI Weight Weight: 145 lb 0.004 oz Body Mass Index (BMI) 26.5 ABG / Lab / Microbiology Data 12/07/24 06:38 12/07/24 06:38 Laboratory: Laboratory Results - last 24 hr 12/07/24 06:38: WBC 4.7, RBC 3.48 L, Hgb 10.4 L, Hct 31.8 L, MCV 91.4, MCH 29.9, MCHC 32.7, RDW Std Deviation 47.8 H, RDW Coeff of Zia 14.3, Plt Count 217, MPV 10.7, Immature Gran % (Auto) 0.900, Neut % (Auto) 70.8 H, Lymph % (Auto) 16.5 L, Branch % (Auto) 8.6, Eos % (Auto) 2.6, Baso % (Auto) 0.6, Absolute Neuts (auto) 3.3, Absolute Lymphs (auto) 0.77 L, Nucleated RBC % 0, Sodium 141, Potassium 3.8, Chloride 113 H, Carbon Dioxide 19.9 L, Anion Gap 9, BUN 12, Creatinine 0.71, Estim Creat Clear Calc 52.40, Est GFR (MDRD) Non-Af 88, BUN/Creatinine Ratio 17.0, Glucose 87, Calcium 8.1, Phosphorus 2.4 L, Magnesium 2.1 D/C Instructions Discharge Diet: - (low fiber diet (recommendations included)) Discharge Activity: May Not Drive (3-5 days) and May Shower (in 48 hours. No tub batheing for 2 weeks) Lifting Restrictions: No lifting greater than 10 pounds for 4 weeks Call your doctor if your incision/area has: Continuous Slow Oozing, Sudden Increased Bleeding, Increased Pain/ Swelling, Increased Redness, Foul Smelling Discharge and Swelling at the incision site Call your doctor if you observe: Fever of 101 or Higher Suture Line Care: Avoid Pulling/Pushing and Avoid Pinching/Bending Change Dressing in: 1 day Cleanse incision/area with: Soap Water DC O2, CPAP, BIPAP Needs Home O2 Discharge instructions: No DC home with Oxygen: No Please Follow Up With: Darrick Light MD When: Please contact our office to schedule a 2 week follow-up at [phone], option #2 Meaningful Use Info Meaningful Use Meaningful Use Diagnoses (Choose all that apply): None applicable Ischemic Stroke Statin Dosing Therapy Reference: STATIN DOSE THERAPY REFERENCE: * Patients > 75 years receive moderate or high dose statin therapy. * Patients 75 years or YOUNGER should receive HIGH intensity statin dose unless contraindicated. You will be required to document reason for non-treatment if statin daily dose does not meet guidelines. HIGH DO (more content not included)...[facility]04-15-2025 Progress note [facility] Medical Records Department [address] [place] [address] Progress Note - Surgery 12/07/24 0846 MR#: [id number] Acct: [id number] Name: GERMANIA DONIS Rep #:[id number] : 1945 79 From: Eleonora DUONG PA-C PCP: Dr. Sowmya Cabrera MD Status :ADM IN Location: [facility] [id number] Subjective Subjective Patient evaluated resting comfortably in bed. She notes passing flatus and having multiple bowel movements. She denies any nausea, vomiting. She notes minimal amount of abdominal discomfort. She is tolerating a full liquid diet. Objective Data Objective Data Vital Signs: Vital Signs Temp Pulse Resp BP Pulse Ox O2 Del Method O2 Flow Rate 98 F 70 18 132/56 H 96 Room Air 2 12/07/24 08:13 12/07/24 08:13 12/07/24 08:13 12/07/24 08:13 12/07/24 08:13 12/07/24 08:13 12/05/24 05:57 Oxygen Flow Rate (L/min) 2 Oxygen Delivery Method Room Air Weight: 145 lb 0.004 oz Body Mass Index (BMI) 26.5 Intake & Output: Intake and Output for Last 24 Hours 12/05/24 12/06/24 12/07/24 23:59 23:59 23:59 Intake Total 3893.33 / 4193.33 2195 / 2195 1117.08 / 1117.08 Output Total 120 / 120 30 / 50 50 / 50 Balance 3773.33 / 4073.33 2165 / 2145 1067.08 / 1067.08 Lab / Micro Data 12/07/24 06:38 12/07/24 06:38 Labs: Laboratory Results - last 24 hr 12/07/24 06:38: WBC 4.7, RBC 3.48 L, Hgb 10.4 L, Hct 31.8 L, MCV 91.4, MCH 29.9,MCHC 32.7, RDW Std Deviation 47.8 H, RDW Coeff of Zia 14.3, Plt Count 217, MPV 10.7, Immature Gran % (Auto) 0.900, Neut% (Auto) 70.8 H, Lymph % (Auto) 16.5 L,Branch % (Auto) 8.6, Eos % (Auto) 2.6, Baso % (Auto) 0.6, Absolute Neuts (auto) 3.3, Absolute Lymphs (auto) 0.77 L, Nucleated RBC % 0, Sodium 141, Potassium 3.8, Chloride 113 H, Carbon Dioxide 19.9 L, Anion Gap 9, BUN 12, Creatinine 0.71, Estim Creat Clear Calc 52.40, Est GFR (MDRD) Non-Af 88, BUN/Creatinine Ratio 17.0, Glucose 87, Calcium 8.1, Phosphorus 2.4 L, Magnesium 2.1 Physical Exam GI GI Narrative: Abdomen- soft, nontender. Incisions c/d/i. No erythema or infection noted. MATTHEW dressing changes. Serosanguineous fluid noted. Assessment & Plan Assessment/Plan (1) Perforated small intestine: (2) Intra-abdominal abscess: (3) Pneumoperitoneum: (4) Abdominal pain, acute: PLAN: Plan I am following this patient in conjunction with Dr. Light. He has independently evaluated this patient. Labs reviewed. Phosphorous replaced. Remove MATTHEW later today Increased diet to transitional Plan for discharge later today Charges/Coding Visit Charges Inpatient E&M: 44939 Subs Hosp L1 (no charge; post-op) 12/07/24 0903 Cosigner Signature (if applicable): CC: ~ Signed [facility]04-14-2025 Procedure note [facility] Medical Records Department [address] [place] [address] Operative Report 12/04/24 1434 MR#: [id number] Acct: [id number] Name: GERMANIA DONIS Rep #:[id number] : 1945 79 From: Darrick Lara PCP: Dr. 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 Surgery/Procedure Performed: Diagnostic laparoscopy with small bowel resection and reanastomosis train starter: Yes Marketing Operations Associate: Mora Richard Tasks completed by medical billing assistant: Opening & closing, Trocar and Retracting Type of Anesthesia: General/Supplemental RN Documented Start/Stop Times: Operation Date: 12/04/24 12:45 Case Time Anesthesia Start 12/04/24 12:40 Into Room 12/04/24 12:40 Procedure Start 12/04/24 13:04 Procedure End 12/04/24 14:39 Anesthesia End 12/04/24 14:46 Out of Room 12/04/24 14:46 Into Recovery 12/04/24 14:47 Out of Recovery 12/04/24 15:43 Procedure Start Time: 13:04 Procedure Stop Time: 14:39 Select all DRAINS/GRAFTS/IMPLANTS that apply: Drains Drain details: 15 Togolese round Mauricio Estimated Blood Loss: 20 Specimen collected: Yes Description of specimen(s) removed: Small bowel Description of surgery: Patient arrived from the emergency department and written consents were confirmed. She was brought to the operating room where he was positioned supineon the operating room table. She underwent induction with general endotracheal anesthetic. She had previously been administered Zosyn by emergency medicine. Anesthesia placed an orogastric tube. SCDs placed on bilateral lower extremities were connected. Patient's abdomen was prepped and draped in usual sterile fashion. A formal timeout followed to confirm patient and the procedure. The procedure was begun with a supraumbilical incision carried down to the fascia which was elevated between clamps and sharply incised. I was verycareful to only incise the fascia and then the peritoneal layer was likewise elevated and sharply incised with scissors. Finger sweep confirmed peritoneal entry and a 12 mm Chowdary balloon trocar was placed. The abdomen was inspected and revealed no inadvertent injury from our port placement. Abdomen was insufflatedto a set pressure of 15 mmHg. Brief inspection of the peritoneum revealed mildly dilated loops of small bowel in the midabdomen but no elvis purulence. To facilitate a more thorough exploration, I made the decision to place 2 additional trocars were placed in the right upper quadrant and left lowerquadrant. The patient was then positioned Trendelenburg with the left side down and I began to inspect the peritoneum by first identifying the terminal ileum and running the bowel proximally in a hand over hand fashion until I encountered densely adherent knotting of the distal jejunal segment in the left lower quadrant. Using atraumatic graspers and a suction pen maker device I bluntly teased a perforated small bowel diverticulum from its position within adjacent small bowel mesentery. This area was fully opened up and explored. No additional areas of concern were identified apart from the small bowel diverticulum. The area was copiously irrigated and suctioned free to minimize contamination spread. A locking grasper was placed on the small bowel mesentery for identification of the smallbowel diverticulum. Looking to perform a limited laparotomy incision in a location of my supraumbilical port site I performed a limited tap block with use of local anesthetic by instilling the local just lateral to the linea semilunaris under laparoscopic visualization. A 10 blade scalpel was then used to incise the skin superior to our supraumbilical port for a distance of approximately 5 cm. Itwas deepened through the abdominal fascia with the use of electrocautery and a medium sized Guillermo wound protector was placed. The small bowel was eviscerated via this opening. Mesenteric defects were created bluntly and the small bowel mesentery was taken around the area of the perforated small bowel diverticulum. Then the small bowel involved by the diverticulum (a segment of approximately 12 cm in length) was divided with serial firings of the 55 mm GRACIE stapler x 2. The specimen was passed off the field labeled small bowel. Then a standard yhln-li-[id number] functional end-to-end small bowel anastomosis was created with a third firing of the GRACIE stapler. The common enterotomy was closed witha firingof a [place] 60 stapler. The resulting staple line was largely hemostatic but was imbricated with a running 3-0 silk suture. Mesenteric defect was closed with a second running 3-0 silk suture. Finally a crotch stitch was placed with a third3-0 silk suture. The anastomosis small bowel was returned to the peritoneum andthe wound protector was removed. All personnel changed outer gloves and returned to closure of the supraumbilical fascial opening with a running #1 PDS suture. The suprafascial layer was irrigated. Then the abdomen was reinsufflated via our remaining two 5 mm ports. A 15 Togolese round Mauricio drain was fed into the peritoneal cavity via our left lower port site. This was affixed to the abdominal wall using a 3-0 nylon suture. Lastly the skin was closed with a running subcuticular technique using 4-0 Monocryl. The two 5 mm port sites in the left lower quadrant were, likewise, closed with the same 4-0 Monocryl suture in a subcuticular technique. OpSite dressings were applied to the port sites while the extraction site medially was dressed with a silver impregnated dressing. Patient's drain tubing was connected to bulb suction. The patient was extubated and taken to PACUfor ongoing recovery. Surgical Findings: ? Inflamed 4 cm small bowel diverticulum along the mesenteric side of the small bowel with adherentfibrinous exudate Complications Complications: No Admit VTE Documentation VTE Mechan Device Prophylaxis: SCD's 12/06/24 1458 Cosigner Signature (if applicable): CC: Dr. Sowmya Cabrera MD; Dr. Darrick Light MD~ Signed [facility]04-14-2025 Progress note Author Eleonora Montaño [facility] Note Date/Time December 06, 2024 9:2 9am [facility] Medical Records Department [address] [place] [address] Progress Note - Surgery 12/06/24 0838 MR#: [id number] Acct: [id number] Name: GERMANIA DONIS Rep #:[id number] : 1945 79 From: Eleonora DUONG PA-C PCP: Dr. Sowmya Cabrera MD Status :ADM IN Location: MS3 [id number] Subjective Subjective Patient evaluated resting comfortably in bed. She denies any nausea, vomiting, fever. She notes less belching than previous. Patient denies much abdominal pain. She notes sleeping well overnight. She is feeling more hungry. Negative flatus and BM. Objective Data Objective Data Vital Signs: Vital Signs Temp Pulse Resp BP Pulse Ox O2 Del Method O2 Flow Rate 97.8 F 72 15 97/53 L 98 Room Air 2 12/06/24 04:00 12/06/24 04:00 12/06/24 04:00 12/06/24 04:00 12/06/24 04:00 12/06/24 04:00 12/05/24 05:57 Oxygen Flow Rate (L/min) 2 Oxygen Delivery Method Room Air Weight: 145 lb 0.004 oz Body Mass Index (BMI) 26.5 Intake & Output: Intake and Output for Last 24 Hours 12/04/24 12/05/24 12/06/24 23:59 23:59 23:59 Intake Total 650 / 650 3893.33 / 4193.33 1550 / 1550 Output Total 460 / 530 120 / 120 30 / 30 Balance 190 / 120 3773.33 / 4073.33 1520 / 1520 Lab / Micro Data 12/06/24 05:50 12/06/24 05:50 Labs: Laboratory Results - last 24 hr 12/06/24 05:50: WBC 4.9, RBC 3.36 L, Hgb 10.1 L, Hct 31.1 L, MCV 92.6, MCH 30.1,MCHC 32.5, RDW Std Deviation 49.0 H, RDW Coeff of Zia 14.4, Plt Count 185, MPV 10.6, Immature Gran % (Auto) 0.400, Neut % (Auto) 78.8 H, Lymph % (Auto) 13.8 L,Branch % (Auto) 6.4, Eos % (Auto) 0.4, Baso % (Auto) 0.2, Absolute Neuts (auto) 3.8, Absolute Lymphs (auto) 0.67 L, Nucleated RBC % 0, Sodium 140, Potassium 3.9, Chloride 112 H, Carbon Dioxide 18.8 L, Anion Gap 9, BUN 17, Creatinine 0.64L, Estim Creat Clear Calc 52.40, Est GFR (MDRD) Non-Af 91, BUN/Creatinine Ratio 27.1 H, Glucose 77, Calcium 8.0, Phosphorus 1.9 L, Magnesium 2.4 H Physical Exam GI GI Narrative: Abdomen- soft, nontender. Incisions c/d/i. Silver dressing over top of the midline incision. MATTHEW drain intact. MATTHEW drain stripped. MATTHEW dressing changed. Assessment & Plan Assessment/Plan (1) Abdominal pain, acute: (2) Pneumoperitoneum: (3) Intra-abdominal abscess: (4) Perforated small intestine: PLAN: Plan I am following this patient in conjunction with Dr. Light. He has independently evaluate this patient. Labs reviewed. Phos is decreased. Replaced with Potassium phosphate IV Encourage ambulation and I.S. use Increase diet to full liquids Continue MATTHEW drain We will continue to monitor this patient Charges/Coding Visit Charges Inpatient E&M: 42955 Subs Hosp L1 (post-op) 12/06/24928 <Electronically signed by Eleonora DUONG PA-C> Cosigner Signature (if applicable): CC: ~ Signed [facility] Work Phone: [phone] Progress note [facility] Medical Records Department [address] [place] [address] Progress Note - Surgery 12/06/24 0838 MR#: [id number] Acct: [id number] Name: GERMANIA DONIS Rep #:[id number] : 1945 79 From: Eleonora DUONG PA-C PCP: Dr. Sowmya Cabrera MD Status :ADM IN Location: [place] [address] Subjective Subjective Patient evaluated resting comfortably in bed. She denies any nausea, vomiting, fever. She notes less belching than previous. Patient denies much abdominal pain. She notes sleeping well overnight. Sheis feeling more hungry. Negative flatus and BM. Objective Data Objective Data Vital Signs: Vital Signs Temp Pulse Resp BP Pulse Ox O2 Del Method O2 Flow Rate 97.8 F 72 15 97/53 L 98 Room Air 2 12/06/24 04:00 12/06/24 04:00 12/06/24 04:00 12/06/24 04:00 12/06/24 04:00 12/06/24 04:00 12/05/24 05:57 Oxygen Flow Rate (L/min) 2 Oxygen Delivery Method Room Air Weight: 145 lb 0.004 oz Body Mass Index (BMI) 26.5 Intake & Output: Intake and Output for Last 24 Hours 12/04/24 12/05/24 12/06/24 23:59 23:59 23:59 Intake Total 650 / 650 3893.33 / 4193.33 1550 / 1550 Output Total 460 / 530 120 / 120 30 / 30 Balance 190 / 120 3773.33 / 4073.33 1520 / 1520 Lab / Micro Data 12/06/24 05:50 12/06/24 05:50 Labs: Laboratory Results - last 24 hr 12/06/24 05:50: WBC 4.9, RBC 3.36 L, Hgb 10.1 L, Hct 31.1 L, MCV 92.6, MCH 30.1,MCHC 32.5, RDW Std Deviation 49.0 H, RDW Coeff of Zia 14.4, Plt Count 185, MPV 10.6, Immature Gran % (Auto) 0.400, Neut% (Auto) 78.8 H, Lymph % (Auto) 13.8 L,Branch % (Auto) 6.4, Eos % (Auto) 0.4, Baso % (Auto) 0.2, Absolute Neuts (auto) 3.8, Absolute Lymphs (auto) 0.67 L, Nucleated RBC % 0, Sodium 140, Potassium 3.9, Chloride 112 H, Carbon Dioxide 18.8 L, Anion Gap 9, BUN 17, Creatinine 0.64L, Estim Creat Clear Calc52.40, Est GFR (MDRD) Non-Af 91, BUN/Creatinine Ratio 27.1 H, Glucose 77, Calcium 8.0, Phosphorus 1.9 L, Magnesium 2.4 H Physical Exam GI GI Narrative: Abdomen- soft, nontender. Incisions c/d/i. Silver dressing over top of the midline incision. MATTHEW drain intact. MATTHEW drain stripped. MATTHEW dressing changed. Assessment & Plan Assessment/Plan (1) Abdominal pain, acute: (2) Pneumoperitoneum: (3) Intra-abdominal abscess: (4) Perforated small intestine: PLAN: Plan I am following this patient in conjunction with Dr. Light. He has independently evaluate this patient. Labs reviewed. Phos is decreased. Replaced with Potassium phosphate IV Encourage ambulation and I.S. use Increase diet to full liquids Continue MATTHEW drain We will continue to monitor this patient Charges/Coding Visit Charges Inpatient E&M: 23603 Subs Hosp L1 (post-op) 12/06/24 0929 Cosigner Signature (if applicable): CC: ~ Signed [facility]04-13-2025 Progress note Author Darrick Light [facility] Note Date/Time December 05, 2024 10: 35am [facility] Medical Records Department [address] [place] [address] Progress Note - Surgery 12/05/24820 MR#: [id number] Acct: [id number] Name: GERMANIA DONIS Rep #:[id number] : 1945 79 From: Darrick Lara PCP: Dr. Sowmya Cabrera MD Status :ADM IN [id number] Subjective Subjective Patient seen and evaluated during AM rounds. She is found resting in bed. She states that she is feeling better after some breakthrough abdominal pain earliertoday in her right mid abdomen. She describes this pain as sharp and precipitated by movement. Objective Data Objective Data Vital Signs: Vital Signs Temp Pulse Resp BP Pulse Ox O2 Del Method O2 Flow Rate 97.6 F L 80 16 81/53 L 94 Room Air 2 12/05/24 08:08 12/05/24 08:08 12/05/24 08:08 12/05/24 08:08 12/05/24 08:08 12/05/24 08:08 12/05/24 05:57 Oxygen Flow Rate (L/min) 2 Oxygen Delivery Method Room Air Weight: 145 lb Body Mass Index (BMI) 26.5 Intake & Output: Intake and Output for Last 24 Hours 12/03/24 12/04/24 12/05/24 23:59 23:59 23:59 Intake Total 650 / 650 1643.75 / 1643.75 Output Total 460 / 530 90 / 90 Balance 190 / 120 1553.75 / 1553.75 Lab / Micro Data 12/05/24 05:31 12/05/24 05:31 Labs: Laboratory Results - last 24 hr 12/04/24 08:04: Sodium 135, Potassium 4.5, Chloride 101, Carbon Dioxide 24.3, Anion Gap 10, BUN 17, Creatinine 0.72, Estim Creat Clear Calc 52.40, Est GFR (MDRD) Non-Af 86, BUN/Creatinine Ratio 23.5 H, Glucose 98, Calcium 9.0, Total Bilirubin 0.59, Direct Bilirubin 0.28, AST 39 H, ALT 32, Alkaline Phosphatase 110 H, Total Protein 6.9, Albumin 3.5, Globulin 3.4, Lipase 31 12/04/24 08:25: Urine Color Yellow, Urine Clarity Sl. Cloudy, Urine pH 6.0, Ur Specific [place] 1.010, Urine Protein 15 H, Urine Glucose (UA) Normal, Urine Ketones 15 H, Urine Occult Blood Negative, Urine Nitrite Negative, Urine Bilirubin Negative, Urine Urobilinogen Normal, Ur Leukocyte Esterase 25 H, UrineRBC 0 SEEN, Urine WBC 0-5 SEEN, Ur Squamous Epith Cells 0-5 SEEN, Urine Bacteria1+, Urine Mucus RARE 12/05/24 05:31: WBC 9.4, RBC 3.91 L, Hgb 11.6 L, Hct 37.1, MCV 94.9 D, MCH 29.7, MCHC 31.3 L, RDW Std Deviation 49.2 H, RDW Coeff of Zia 14.3, Plt Count 189, MPV 11.3, Immature Gran % (Auto) 0.600, Neut % (Auto) 87.8 H, Lymph % (Auto) 5.8 L, Branch % (Auto) 5.7, Eos % (Auto) 0.0, Baso % (Auto) 0.1, Absolute Neuts (auto) 8.2 H, Absolute Lymphs (auto) 0.54 L, Nucleated RBC % 0, Sodium 142, Potassium 4.5, Chloride 113 H, Carbon Dioxide 15.4 L, Anion Gap 14, BUN 15,Creatinine 0.68 L, Estim Creat Clear Calc 52.40, Est GFR (MDRD) Non-Af 90, BUN/Creatinine Ratio 21.8 H, Glucose 95, Calcium 8.2, Phosphorus 3.4, Magnesium 2.5 H Radiography Diagnostic Testing: Radiology Impression Abdomen/Pelvis CT 12/04/24 09:30 IMPRESSION: 1. Dilation of a central small bowel loop with focal rim enhancing intraperitoneal mass which appears in continuity with the small bowel loop, most compatible with small bowel perforation and abscess. Surgical consultation recommended. 2. Punctate free air along the dependent margin of the caudate lobe, compatible with pneumoperitoneum. 3. Severe distal colonic diverticulosis. Findings were discussed by Dr. Stevens with Dr. Naranjo via telephone at 10:34 a.m. on 12/04/2024. Reading Location: [id number] Physical Exam Const oriented x3 Resp normal respiratory effort GI GI Narrative: Nondistended, operative dressings intact without strikethrough, left lower quadrant drain with serosanguineous output, mild tenderness with palpation aboutincisions Assessment & Plan Assessment/Plan (1) Perforated small intestine: PLAN: Patient is 79-year-old female who presents with signs and symptoms of small bowel perforation from small bowel diverticulum. She is postoperative 1 from diagnostic laparoscopy with small bowel resection and reanastomosis. Todayshe complains of some breakthrough discomfort but her abdominal exam is as expected for postoperative day 1 and rather reassuring. Furthermore, her drain output is benign. Lastly, her biochemical evaluation with a.m. laboratories is also reassuring. She had several questions related to the etiology for her perforation but I stated that the rarity of her condition largely precludes an explanation for causation. I also described that we will have to await return of bowel function until we can advance her diet and reinstitute her oral medications. I suggested one of the things that may hasten the return of bowel function is her ambulation postoperatively and encouraged her to be out of bed as much as possible. She confirms understanding and states she will plan to tryto walk today. Additional orders include: ? Will begin Toradol every 6 scheduled to try to assist with patient's pain control without risking so much hypotension as patient's blood pressure appears low at baseline. ? AM labs for tomorrow Continue inpatient stay Darrick Light MD General Surgery Endocrine Surgery Pager: [facility] [address] [place] [address], Outpatient [place], [address] [place] [address] Office: [phone] (2) Pneumoperitoneum: Charges/Coding Visit Charges Inpatient E&M: 67853 Subs Hosp L2 12/05/24 1035 <Electronically signed by Darrick Light MD> Cosigner Signature (if applicable): CC: ~ Signed [facility] Work Phone: [phone] Progress note [facility] Medical Records Department [address] [place] [address] Progress Note - Surgery 12/05/24 08 MR#: [id number] Acct: [id number] Name: GERMANIA DONIS Rep #:[id number] : 1945 79 From: Darrick Lara PCP: Dr. Sowmya Cabrera MD Status :ADM IN Location: [place] [address]-1 Subjective Subjective Patient seen and evaluated during AM rounds. She is found resting in bed. She states that she is feeling better after some breakthrough abdominal pain earliertoday in her right mid abdomen. She describes this pain as sharp and precipitated by movement. Objective Data Objective Data Vital Signs: Vital Signs Temp Pulse Resp BP Pulse Ox O2 Del Method O2 Flow Rate 97.6 F L 80 16 81/53 L 94 Room Air 2 12/05/24 08:08 12/05/24 08:08 12/05/24 08:08 12/05/24 08:08 12/05/24 08:08 12/05/24 08:08 12/05/24 05:57 Oxygen Flow Rate (L/min) 2 Oxygen Delivery Method Room Air Weight: 145 lb Body Mass Index (BMI) 26.5 Intake & Output: Intake and Output for Last 24 Hours 12/03/24 12/04/24 12/05/24 23:59 23:59 23:59 Intake Total 650 / 650 1643.75 / 1643.75 Output Total 460 / 530 90 / 90 Balance 190 / 120 1553.75 / 1553.75 Lab / Micro Data 12/05/24 05:31 12/05/24 05:31 Labs: Laboratory Results - last 24 hr 12/04/24 08:04: Sodium 135, Potassium 4.5, Chloride 101, Carbon Dioxide 24.3, Anion Gap 10, BUN 17,Creatinine 0.72, Estim Creat Clear Calc 52.40, Est GFR (MDRD) Non-Af 86, BUN/Creatinine Ratio 23.5 H, Glucose 98, Calcium 9.0, Total Bilirubin 0.59, Direct Bilirubin 0.28, AST 39 H, ALT 32, Alkaline Phosphatase 110 H, Total Protein 6.9, Albumin 3.5, Globulin 3.4, Lipase 31 12/04/24 08:25: Urine Color Yellow, Urine Clarity Sl. Cloudy, Urine pH 6.0, Ur Specific [place] 1.010, Urine Protein 15 H, Urine Glucose (UA) Normal, Urine Ketones 15 H, Urine Occult Blood Negative, Urine Nitrite Negative, Urine Bilirubin Negative, Urine Urobilinogen Normal, Ur Leukocyte Esterase 25 H, UrineRBC 0 SEEN, Urine WBC 0-5 SEEN, Ur Squamous Epith Cells 0-5 SEEN, Urine Bacteria1+, Urine Mucus RARE 12/05/24 05:31: WBC 9.4, RBC 3.91 L, Hgb 11.6 L, Hct 37.1, MCV 94.9 D, MCH 29.7, MCHC 31.3 L, RDW Std Deviation 49.2 H, RDW Coeff of Zia 14.3, Plt Count 189, MPV 11.3, Immature Gran % (Auto) 0.600, Neut % (Auto) 87.8 H, Lymph % (Auto) 5.8 L, Branch % (Auto) 5.7, Eos % (Auto) 0.0, Baso % (Auto) 0.1, Absolute Neuts (auto) 8.2 H, Absolute Lymphs (auto) 0.54 L, Nucleated RBC % 0, Sodium 142, Potassium 4 .5, Chloride 113 H, Carbon Dioxide 15.4 L, Anion Gap 14, BUN 15,Creatinine 0.68 L, Estim Creat Clear Calc 52.40, Est GFR (MDRD) Non-Af 90, BUN/Creatinine Ratio 21.8 H, Glucose 95, Calcium 8.2, Phosphorus 3.4, Magnesium 2.5 H Radiography Diagnostic Testing: Radiology Impression Abdomen/Pelvis CT 12/04/24 09:30 IMPRESSION: 1. Dilation of a central small bowel loop with focal rim enhancing intraperitoneal mass which appears in continuity with the small bowel loop, most compatible with small bowel perforation and abscess. Surgical consultation recommended. 2. Punctate free air along the dependent margin of the caudate lobe, compatible with pneumoperitoneum. 3. Severe distal colonic diverticulosis. Findings were discussed by Dr. Stevens with Dr. Naranjo via telephone at 10:34 a.m. on 12/04/2024. Reading Location: [facility] Physical Exam Const oriented x3 Resp normal respiratory effort GI GI Narrative: Nondistended, operative dressings intact without strikethrough, left lower quadrant drain with serosanguineous output, mild tenderness with palpation aboutincisions Assessment & Plan Assessment/Plan (1) Perforated small intestine: PLAN: Patient is 79-year-old female who presents with signs and symptoms of small bowel perforationfrom small bowel diverticulum. She is postoperative 1 from diagnostic laparoscopy with small bowel resection and reanastomosis. Todayshe complains of some breakthrough discomfort but her abdominal exam is as expected for postoperative day 1 and rather reassuring. Furthermore, her drain output is benign. Lastly, her biochemical evaluation with a.m. laboratories is also reassuring. She had several questions related to the etiology for her perforation but I stated that the rarity of her condition largely precludes an explanation for causation. I also described that we will have to await return of bowel function until we can advance her diet and reinstitute her oral medications. I suggested oneof the things that may hasten the return of bowel function is her ambulation postoperatively and encouraged her to be out of bed as much as possible. She confirms understanding and states she will plan to tryto walk today. Additional orders include: ? Will begin Toradol every 6 scheduled to try to assist with patient's pain control without riskingso much hypotension as patient's blood pressure appears low at baseline. ? AM labs for tomorrow Continue inpatient stay Darrick Light MD General Surgery Endocrine Surgery Pager: [facility] [address] [place] [address], [address] [place] [address] Office: [phone] (2) Pneumoperitoneum: Charges/Coding Visit Charges Inpatient E&M: 27478 Subs Hosp L2 12/05/24 1035 Cosigner Signature (if applicable): CC: ~ Signed [facility]04-12-2025 Discharge summary Author Pardeep Naranjo [facility] Note Date/Time December 04, 2024 3:2 4pm [facility] Medical Records Department [address] [place], [place] [id number] Emergency Department Summary 12/04/24 MR#: [id number] Acct: [id number] Name: JEWELSGERMANIA BAUMANN Osmel Rep #:[id number] : 1945 79 From: Pardeep Davila PCP: Dr. Sowmya Cabrera MD Status :ADM IN Location: MS3 [id number] HPI HPI - GI History of Present Illness Chief Complaint: Abd Pain Informant: patient Narrative Narrative: 79-year-old female presenting to the emergency department with a chief complaintof abdominal pain. Patient states that on Friday she developed a periumbilical ache. Nonradiating. She denies any other associated symptoms. She states is pretty constantly there. She notes some anorexia with it. She denies any fevers but notes her temperatures been up to 99. She denies urinary symptoms. A month ago she underwent umbilical hernia repair with Dr. Leonard. She denies any prior abdominal surgeries. She subsequently followed up and things were progressing normally. [facility] Medical History Umbilical hernia Wears glasses Wears partial dentures Wears dentures Depression Cervical stenosis of spine Arthritis Low iron High cholesterol Non-smoker Shortness of breath on exertion History of echocardiogram History of stress test Thyroid disease Heart murmur Home Medications ?Medication ?Instructions ?Recorded ?Last Taken ?Type alendronate 35 mg tablet 35 mg PO QWEEK 09/27/2405/19 History atorvastatin 80 mg tablet 80 mg PO QDAY 09/27/2411/03 History baclofen 10 mg tablet 10 mg PO QDAY 09/27/2411/03 History calcium carbonate 500 mg PO QDAY 09/27/2410/23 History levothyroxine 100 mcg capsule 100 mcg PO QDAY 09/27/24 11/03/24 History vfgbbkxg-twntfeyn-drriu acid 240 1 tab PO DAILY 11/03/24 History mcg-vit K1 150 mcg-herb 357 tablet (Alive Women's 50 Plus Ultra Multivitamin) vitamins A,C,E-igix-ybiing 4,296 1 cap PO BID 09/27/24 11/03/24 History mcg-226 mg-90 mg capsule (PreserVision AREDS) zolpidem 10 mg tablet 10 mg PO QHS 09/27/24 History Allergy/AdvReac Type Severity Reaction Status Date / Time No Known Allergies Allergy Verified 12/04/24 07:33 Family History Sister Diabetes Surgical History S/P umbilical hernia repair, follow-up exam History of hysterectomy Previous back surgery Social History Smoking Status: Never smoker alcohol intake: never substance use type: does not use ROS ROS ED Constitutional Constitutional ED: Denies chills, fever(s) or weight loss Eyes Eyes: Denies change in vision or diplopia ENT ENT ED: Denies ear pain, rhinorrhea or sore throat Cardiovascular Cardiovascular: Denies chest pain, orthopnea, palpitations or racing heartbeat Respiratory/Chest Respiratory/Chest: Denies cough, dyspnea or orthopnea Gastrointestinal Gastrointestinal: Reports abdominal pain; Denies constipation, diarrhea, nausea or vomiting Genitourinary Genitourinary ED: Denies dysuria, hematuria or urinary frequency Musculoskeletal Musculoskeletal: Denies arthralgias or myalgias Integumentary Denies abscess or rash Neurologic Neurologic: Denies headache(s) or weakness Psychiatric Psychiatric: Denies anxiety, depression, suicidal ideation or suicidal thoughts Endocrine Endocrinology: Denies polydipsia, polyphagia or polyuria Allergic/Immunologic Allergic/Immunologic ED: Denies mouth swelling, tongue swelling or urticaria EXAM Physical Exam Const Vital Signs: 12/04/24 07:33 12/04/24 09:32 12/04/24 11:00 Temperature 98.9 F Temperature Source Oral Pulse Rate 89 82 82 Respiratory Rate 18 18 18 Blood Pressure 108/66 140/62 H Blood Pressure Mean 80 88 Pulse Ox 97 96 96 Oxygen Delivery Method Room Air Positive well nourished and well developed General Appearance ED: well developed and NAD HEENT Reports normocephalic, head/scalp atraumatic and moist mucous membranes Eyes PERRL and EOMs intact bilaterally Neck no lymphadenopathy, supple and no JVD Resp normal respiratory effort and clear to auscultation bilaterally Cardio regular rate, regular rhythm and no murmurs GI Inspection: Negative for abdominal distention Auscultation: normoactive bowel sounds Palpation: soft and tender LLQ, RLQ, LUQ and periumbilical; Negative for guarding or rebound tenderness present Back/Spine no CVA tenderness and normal ROM Extremity normal to inspection General Extremety ED: Negative for edema General Extremity: Negative for edema Neuro oriented x3 and CN's II-XII intact bilaterally Sensorium / Orientation: alert Motor Exam: strength 5/5 throughout Psych mental status grossly normal Mood & Affect: Negative for depressed or tearful Skin no rashes or lesions noted and no wounds MDM MDM MDM Narrative Medical decision making narrative: Differential diagnosis includes but not limited to bowel obstruction diverticulitis abscess bowel perforation pancreatitis gastroenteritis biliary disease Patient received morphine and Zofran. Patient's white count is 7.4 the hemoglobin 12.2 platelet count of 182. 83.2 neutrophils. Liver panel and lipase within normal limit except for alkaline phosphatase of 110. BMP within normal limits urinalysis is negative. CT of the abdomen pelvis with oral and IVcontrast was obtained. This was read by radiology reviewed by myself. This is concerning for possible perforated small bowel with abscess formation and pneumoperitoneum. Case was discussed with Dr. Light from general surgery who iscome to the emergency department to evaluate the patient. She has received a dose of Zosyn and plan is to take the patient to the operating room and admission. History & Record Review Discussion w/independent historian: Patient and Significant other Additional record(s) reviewed:: Prior outpatient record Lab Data Attestation: I reviewed the patient's lab results. Labs: Laboratory Results - last 24 hr 12/04/24 12/04/24 08:04 08:25 WBC 7.4 RBC 4.11 L Hgb 12.2 Hct 37.1 MCV 90.3 MCH 29.7 MCHC 32.9 RDW Std Deviation 46.5 H RDW Coeff of Zia 14.0 Plt Count 182 MPV 10.9 Immature Gran % (Auto) 0.400 Neut % (Auto) 83.2 H Lymph % (Auto) 9.5 L Branch % (Auto) 6.5 Eos % (Auto) 0.3 Baso % (Auto) 0.1 Absolute Neuts (auto) 6.2 Absolute Lymphs (auto) 0.71 L Nucleated RBC % 0 Sodium 135 Potassium 4.5 Chloride 101 Carbon Dioxide 24.3 Anion Gap 10 BUN 17 Creatinine 0.72 Estim Creat Clear Calc 52.40 Est GFR (MDRD) Non-Af 86 BUN/Creatinine Ratio 23.5 H Glucose 98 Calcium 9.0 Total Bilirubin 0.59 Direct Bilirubin 0.28 AST 39 H ALT 32 Alkaline Phosphatase 110 H Total Protein 6.9 Albumin 3.5 Globulin 3.4 Lipase 31 Urine Color Yellow Urine Clarity Sl. Cloudy Urine pH 6.0 Ur Specific [place] 1.010 Urine Protein 15 H Urine Glucose (UA) Normal Urine Ketones 15 H Urine Occult Blood Negative Urine Nitrite Negative Urine Bilirubin Negative Urine Urobilinogen Normal Ur Leukocyte Esterase 25 H Urine RBC 0 SEEN Urine WBC 0-5 SEEN Ur Squamous Epith Cells 0-5 SEEN Urine Bacteria 1+ Urine Mucus RARE Radiography Diagnostic Testing: Clinical Impression(s) from Imaging Studies Abdomen/Pelvis CT 12/04/24 09:30 IMPRESSION: 1. Dilation of a central small bowel loop with focal rim enhancing intraperitoneal mass which appears in continuity with the small bowel loop, most compatible with small bowel perforation and abscess. Surgical consultation recommended. 2. Punctate free air along the dependent margin of the caudate lobe, compatible with pneumoperitoneum. 3. Severe distal colonic diverticulosis. Findings were discussed by Dr. Stevens with Dr. Naranjo via telephone at 10:34 a.m. on 12/04/2024. Reading Location: [facility] Management Discussion w/another healthcare provider: [employer] Product Development Manager (Dr Light) and Radiologist Discharge Plan Dx/Rx/DC Orders Clinical Impression: Perforated small intestine, Intra-abdominal abscess, Pneumoperitoneum, Abdominal pain, acute Disposition Disposition: Acute Care Hospital [facility] What to do if you have Problems For any increased pain, shortness of breath, bleeding, nausea or vomiting, chestpain, or any unexpected problems, contact your Primary Care Provider. Call [facility] ([phone]) or report to the closest Emergency Room. Call 911 if necessary. 12/04/24 1524 <Electronically signed by Pardeep Naranjo DO> Cosigner Signature (if applicable): CC: Dr. Sowmya Cabrera MD ~ Signed [facility] Work Phone: [phone]) 796-267404-12-2025 Consult note Author Pardeep Pierre [facility] Note Date/Time December 04, 2024 3:0 0pm [facility] Medical Records Department [address] [place] [address] Anesthesia Postop Eval II 12/04/24 1459 MR#: [id number] Acct: [id number] Name: GERMANIA DONIS Rep #:[id number] : 1945 79 From: Pardeep Lara PCP: Dr. Sowmya Cabrera MD Status :ADM IN Y Race: C Location: [facility] MS317 -1 Anesthesia Postop Eval I Sum Postop Eval Completion status Anesthesia document: Postop Eval 1 completed: Yes Anesthesia Postop Eval I Summary Anesthesia Postop Eval I Summary: Anesthesia Postop Eval I: Assessment Summary 3 Airway patent Yes 12/04/24 14:59 Spontaneous unlabored Yes 12/04/24 14:59 respirations Mental status Awake,Calm 12/04/24 14:59 nausea No 12/04/24 14:59 Vomiting No 12/04/24 14:59 Anesthesia Postop Eval I: Fluid Summary Crystalloid volume administer 1,250 12/04/24 14:59 (ml) Colloids volume administered ( ml) Blood Product volume administered (ml) Total IV fluid infused 1,250 12/04/24 14:59 Anesthesia Postop Eval I: Summary Notes Anesthesia Complication No 12/04/24 14:59 Anesthesia Complication Comment: Post-operative progress note Patient was 12/04/24 14:59 comfortable and conversant on arrival in pacu Anesthesia: Postop Eval II Evaluation Mental status: Awake and Calm Pain Level: 4 nausea: No Vomiting: No Progress Note Post-operative progress note: Patient doing well in pacu. No apparent complications Complications Anesthesia Complication: No 12/04/24 1500 <Electronically signed by Pardeep Pierre MD> Date _ Pardeep Pierre MD Cosigner Signature: Date CC: ~ Signed [facility] Work Phone: [phone]) 167-273404-12-2025 Consult note Author Pardeep Pierre [facility] Note Date/Time December 04, 2024 2:5 9pm [facility] Medical Records Department [address] [place] [address] Anesthesia Postop Eval I 12/04/241456 MR#: [id number] Acct: [id number] Name: GERMANIA DONIS Rep #:[id number] : 1945 79 From: Pardeep Lara PCP: Dr. Sowmya Cabrera MD Status :ADM IN Y Race: C Location: [place] [address] Anesthesia: Postop Eval I Current Vital Signs Temperature: 38 F Pulse Rate: 78 Blood Pressure: 108/78 Respiratory Rate: 15 Pulse Ox: 100 Oxygen Delivery Method: Room Air Assessment Airway patent: Yes Spontaneous unlabored respirations: Yes Mental status: Awake and Calm nausea: No Vomiting: No Anesthesia Complication: No Fluid Hydration Crystalloid volume administer (ml): 1,250 Total IV fluid infused: 1,250 Progress Note Post-operative progress note: Patient was comfortable and conversant on arrival in pacu Anesthesia document: Postop Eval 1 completed: Yes 12/04/241458 <Electronically signed by Pardeep Pierre MD> Date _ Pardeep Pierre MD Cosign Signature: Date CC: ~ Signed [facility] Work Phone: 1(796) 439-754104-12-2025 Discharge summary [facility] Medical Records Department [address] [place] [address] Emergency Department Summary 12/04/24 MR#: [id number] Acct: [id number] Name: GERMANIA DONIS Rep #:[id number] : 1945 79 From: Pardeep Davila PCP: Dr. Sowmya Cabrera MD Status :ADM IN Location: MS3 [id number] HPI HPI - GI History of Present Illness Chief Complaint: Abd Pain Informant: patient Narrative Narrative: 79-year-old female presenting to the emergency department with a chief complaintof abdominal pain. Patient states that on Friday she developed a periumbilical ache. Nonradiating. She denies any other associated symptoms. She states is pretty constantly there. She notes some anorexia with it. She denies any fevers but notes her temperatures been up to 99. She denies urinary symptoms. A month ago she underwent umbilical hernia repair with Dr. Leonard. She denies any prior abdominal surgeries. She subsequently followed up and things were progressing normally. [facility] Medical History Umbilical hernia Wears glasses Wears partial dentures Wears dentures Depression Cervical stenosis of spine Arthritis Low iron High cholesterol Non-smoker Shortness of breath on exertion History of echocardiogram History of stress test Thyroid disease Heart murmur Home Medications ?Medication ?Instructions ?Recorded ?Last Taken ?Type alendronate 35 mg tablet 35 mg PO QWEEK 09/27/2405/19 History atorvastatin 80 mg tablet 80 mg PO QDAY 09/27/2411/03 History baclofen 10 mg tablet 10 mg PO QDAY 09/27/2411/03 History calcium carbonate 500 mg PO QDAY 09/27/2410/23 History levothyroxine 100 mcg capsule 100 mcg PO QDAY 09/27/24 11/03/24 History zxbpbnec-dftayjus-nabue acid 240 1 tab PO DAILY 11/03/24 History mcg-vit K1 150 mcg-herb 357 tablet (Alive Women's 50 Plus Ultra Multivitamin) vitamins A,C,Q-acsc-bwtien 4,296 1 cap PO BID 09/27/24 11/03/24 History mcg-226 mg-90 mg capsule (PreserVision AREDS) zolpidem 10 mg tablet 10 mg PO QHS 09/27/24 History Allergy/AdvReac Type Severity Reaction Status Date / Time No Known Allergies Allergy Verified 12/04/24 07:33 Family History Sister Diabetes Surgical History S/P umbilical hernia repair, follow-up exam History of hysterectomy Previous back surgery Social History Smoking Status: Never smoker alcohol intake: never substance use type: does not use ROS ROS ED Constitutional Constitutional ED: Denies chills, fever(s) or weight loss Eyes Eyes: Denies change in vision or diplopia ENT ENT ED: Denies ear pain, rhinorrhea or sore throat Cardiovascular Cardiovascular: Denies chest pain, orthopnea, palpitations or racing heartbeat Respiratory/Chest Respiratory/Chest: Denies cough, dyspnea or orthopnea Gastrointestinal Gastrointestinal: Reports abdominal pain; Denies constipation, diarrhea, nausea or vomiting Genitourinary Genitourinary ED: Denies dysuria, hematuria or urinary frequency Musculoskeletal Musculoskeletal: Denies arthralgias or myalgias Integumentary Denies abscess or rash Neurologic Neurologic: Denies headache(s) or weakness Psychiatric Psychiatric: Denies anxiety, depression, suicidal ideation or suicidal thoughts Endocrine Endocrinology: Denies polydipsia, polyphagia or polyuria Allergic/Immunologic Allergic/Immunologic ED: Denies mouth swelling, tongue swelling or urticaria EXAM Physical Exam Const Vital Signs: 12/04/24 07:33 12/04/24 09:32 12/04/24 11:00 Temperature 98.9 F Temperature Source Oral Pulse Rate 89 82 82 Respiratory Rate 18 18 18 Blood Pressure 108/66 140/62 H Blood Pressure Mean 80 88 Pulse Ox 97 96 96 Oxygen Delivery Method Room Air Positive well nourished and well developed General Appearance ED: well developed and NAD HEENT Reports normocephalic, head/scalp atraumatic and moist mucous membranes Eyes PERRL and EOMs intact bilaterally Neck no lymphadenopathy, supple and no JVD Resp normal respiratory effort and clear to auscultation bilaterally Cardio regular rate, regular rhythm and no murmurs GI Inspection: Negative for abdominal distention Auscultation: normoactive bowel sounds Palpation: soft and tender LLQ, RLQ, LUQ and periumbilical; Negative for guarding or rebound tenderness present Back/Spine no CVA tenderness and normal ROM Extremity normal to inspection General Extremety ED: Negative for edema General Extremity: Negative for edema Neuro oriented x3 and CN's II-XII intact bilaterally Sensorium / Orientation: alert Motor Exam: strength 5/5 throughout Psych mental status grossly normal Mood & Affect: Negative for depressed or tearful Skin no rashes or lesions noted and no wounds MDM MDM MDM Narrative Medical decision making narrative: Differential diagnosis includes but not limited to bowel obstruction diverticulitis abscess bowel perforation pancreatitis gastroenteritis biliary disease Patient received morphine and Zofran. Patient's white count is 7.4 the hemoglobin 12.2 platelet count of 182. 83.2 neutrophils. Liver panel and lipase within normal limit except for alkaline phosphatase of 110. BMP within normal limits urinalysis is negative. CT of the abdomen pelvis with oral and IVcontrast was obtained. This was read by radiology reviewed by myself. This is concerning for possible perforated small bowel with abscess formation and pneumoperitoneum. Case was discussed with Dr. Light from general surgery who iscome to the emergency department to evaluate the patient. She has received a dose of Zosyn and plan is to take the patient to the operating room and admission. History & Record Review Discussion w/independent historian: Patient and Significant other Additional record(s) reviewed:: Prior outpatient record Lab Data Attestation: I reviewed the patient's lab results. Labs: Laboratory Results - last 24 hr 12/04/24 12/04/24 08:04 08:25 WBC 7.4 RBC 4.11 L Hgb 12.2 Hct 37.1 MCV 90.3 MCH 29.7 MCHC 32.9 RDW Std Deviation 46.5 H RDW Coeff of Zia 14.0 Plt Count 182 MPV 10.9 Immature Gran % (Auto) 0.400 Neut % (Auto) 83.2 H Lymph % (Auto) 9.5 L Branch % (Auto) 6.5 Eos % (Auto) 0.3 Baso % (Auto) 0.1 Absolute Neuts (auto) 6.2 Absolute Lymphs (auto) 0.71 L Nucleated RBC % 0 Sodium 135 Potassium 4.5 Chloride 101 Carbon Dioxide 24.3 Anion Gap 10 BUN 17 Creatinine 0.72 Estim Creat Clear Calc 52.40 Est GFR (MDRD) Non-Af 86 BUN/Creatinine Ratio 23.5 H Glucose 98 Calcium 9.0 Total Bilirubin 0.59 Direct Bilirubin 0.28 AST 39 H ALT 32 Alkaline Phosphatase 110 H Total Protein 6.9 Albumin 3.5 Globulin 3.4 Lipase 31 Urine Color Yellow Urine Clarity Sl. Cloudy Urine pH 6.0 Ur Specific [place] 1.010 Urine Protein 15 H Urine Glucose (UA) Normal Urine Ketones 15 H Urine Occult Blood Negative Urine Nitrite Negative Urine Bilirubin Negative Urine Urobilinogen Normal Ur Leukocyte Esterase 25 H Urine RBC 0 SEEN Urine WBC 0-5 SEEN Ur Squamous Epith Cells 0-5 SEEN Urine Bacteria 1+ Urine Mucus RARE Radiography Diagnostic Testing: Clinical Impression(s) from Imaging Studies Abdomen/Pelvis CT 12/04/24 09:30 IMPRESSION: 1. Dilation of a central small bowel loop with focal rim enhancing intraperitoneal mass which appears in continuity with the small bowel loop, most compatible with small bowel perforation and abscess. Surgical consultation recommended. 2. Punctate free air along the dependent margin of the caudate lobe, compatible with pneumoperitoneum. 3. Severe distal colonic diverticulosis. Findings were discussed by Dr. Stevens with Dr. Naranjo via telephone at 10:34 a.m. on 12/04/2024. Reading Location: [id number] Management Discussion w/another healthcare provider: [employer] Product Development Manager (Dr Light) and Radiologist Discharge Plan Dx/Rx/DC Orders Clinical Impression: Perforated small intestine, Intra-abdominal abscess, Pneumoperitoneum, Abdominal pain, acute Disposition Disposition: Acute Care Hospital [facility] What to do if you have Problems For any increased pain, shortness of breath, bleeding, nausea or vomiting, chestpain, or any unexpected problems, contact your Primary Care Provider. Call [facility] ([phone]) or report tothe closest Emergency Room. Call 911 if necessary. 12/04/24 1524 Cosigner Signature (if applicable): CC: Dr. Sowmya Cabrera MD ~ Signed [facility]04-12-2025 Consult note [facility] Medical Records Department [address] [place] [address] Anesthesia Postop Eval II 12/04/24 1459 MR#: [id number] Acct: [id number] Name: GERMANIA DONIS Rep #:[id number] : 1945 79 From: Pardeep Lara PCP: Dr. Sowmya Cabrera MD Status :ADM IN Y Race: C Location: MS3 MS317 -1 Anesthesia Postop Eval I Sum Postop Eval Completion status Anesthesia document: Postop Eval 1 completed: Yes Anesthesia Postop Eval I Summary Anesthesia Postop Eval I Summary: Anesthesia Postop Eval I: Assessment Summary 3 Airway patent Yes 12/04/24 14:59 Spontaneous unlabored Yes 12/04/24 14:59 respirations Mental status Awake,Calm 12/04/24 14:59 nausea No 12/04/24 14:59 Vomiting No 12/04/24 14:59 Anesthesia Postop Eval I: Fluid Summary Crystalloid volume administer 1,250 12/04/24 14:59 (ml) Colloids volume administered ( ml) Blood Product volume administered (ml) Total IV fluid infused 1,250 12/04/24 14:59 Anesthesia Postop Eval I: Summary Notes Anesthesia Complication No 12/04/24 14:59 Anesthesia Complication Comment: Post-operative progress note Patient was 12/04/24 14:59 comfortable and conversant on arrival in pacu Anesthesia: Postop Eval II Evaluation Mental status: Awake and Calm Pain Level: 4 nausea: No Vomiting: No Progress Note Post-operative progress note: Patient doing well in pacu. No apparent complications Complications Anesthesia Complication: No 12/04/24 1500 MD> Date _ Pardeep Pierre MD Cosigner Signature: Date CC: ~ Signed [facility]04-12-2025 Consult note [facility] Medical Records Department [address] [place] [address] Anesthesia Postop Eval I 12/04/24 1457 MR#: [id number] Acct: [id number] Name: GERMANIA DONIS Rep #:[id number] : 1945 79 From: Pardeep Lara PCP: Dr. Sowmya Cabrera MD Status :ADM IN Y Race: C Location: [facility] MS317 -1 Anesthesia: Postop Eval I Current Vital Signs Temperature: 38 F Pulse Rate: 78 Blood Pressure: 108/78 Respiratory Rate: 15 Pulse Ox: 100 Oxygen Delivery Method: Room Air Assessment Airway patent: Yes Spontaneous unlabored respirations: Yes Mental status: Awake and Calm nausea: No Vomiting: No Anesthesia Complication: No Fluid Hydration Crystalloid volume administer (ml): 1,250 Total IV fluid infused: 1,250 Progress Note Post-operative progress note: Patient was comfortable and conversant on arrival in pacu Anesthesia document: Postop Eval 1 completed: Yes 12/04/24 1459 > Date _ Pardeep Pierre MD Cosigner Signature: Date CC: ~ Signed [facility]04-12-2025 Consult note Author Pardeep Pierre [facility] Note Date/Time December 04, 2024 12: 37pm [facility] Medical Records Department [address] [place] [address] Pre-Anesthesia Evaluation 12/04/24 1205 MR#: [id number] Acct: [id number] Name: GERMANIA DONIS Rep #:[id number] : 1945 79 From: Pardeep Lara PCP: Dr. Sowmya Cabrera MD Status :REG SD Y Race: C Location: [place] [address] ASA Classification* ASA Classification ASA Classification: 3 and E Assessment & Plan Anesthesia* Anesthesia Assessment Anesthesia Assessment: Objective data and labs reviewed. Mild to moderate with Left to right PFO on bubble study. >4 mets EKG reviewed. Discussed sedation and/or anesthesia options, risks, benefits, and alternatives with patient. Questions invited. The patient seems to understand and agrees to proceed with anesthesia plan. Reviewed the physical assessment, medical history, allergy history and patient home medications list prior to surgery/procedure/anesthetic and documented any changes. Performed airway and anesthesia risk assessments. Anesthesia Type Anesthesia Type: General History Source History Obtained from:: Patient and Chart Anesthesia Focused Assessment* Temperature: 98.9 F Pulse Rate: 82 Blood Pressure: 140/62 Respiratory Rate: 18 Pulse Ox: 96 Oxygen Delivery Method: Room Air Airway Assessment Mouth opens: >3 cm Mallampati Score: II Neck Range of motion (ROM): Full ROM Focused Labs Anesthesia Preop lab: CBC WBC 7.4 K/mm3 (4.4-11.0) 12/04/24 08:04 12/04/24 RBC 4.11 M/mm3 (4.2-5.4) L 12/04/24 08:04 12/04/24 Hgb 12.2 g/dL (12.0-15.0) 12/04/24 08:04 12/04/24 Hct 37.1 % (37-47) 12/04/24 08:04 12/04/24 Plt Count 182 K/mm3 (150-450) 12/04/24 08:04 12/04/24 CHEMISTRY Potassium 4.5 mmol/L (3.3-5.1) 12/04/24 08:04 12/04/24 Sodium 135 mmol/L (133-145) 12/04/24 08:04 12/04/24 Magnesium 2.2 mg/dL (1.6-2.6) 07/20/24 12:37 07/20/24 BUN 17 mg/dL (4-19) 12/04/24 08:04 12/04/24 Creatinine 0.72 mg/dL (0.70-1.20) 12/04/24 08:04 12/04/24 Glucose 98 mg/dL (70-99) 12/04/24 08:04 12/04/24 TSH 2.500 uIU/mL (0.300-4.200) 10/28/24 14:18 03/0 02/16 COAG Pre-Assessment Diagnosis/Proposed Procedure Planned Operative Procedure(s): Laproscopic Small Bowl removal Anesthesia History Anesthesia History - prosthetic assistant: Anesthesia History - prosthetic assistant Hx Hospitalization No 10/21/24 10:11 Any Problems With Anesthesia No 10/21/24 10:11 Cholinesterase deficiency No 10/21/24 10:11 You/Your Family Experience No 10/21/24 10:11 fever (hyperthermia) with Relationship Recent Exposure to Contagious No 11/04/24 06:19 Disease Does patient have nerve No 10/21/24 10:11 stimulator Patient instructed to have device shut off --Does patient have Pacemaker or ICD? When Was Last Pacemaker Check QUESTION #4 FULL TEXT: You/Your Family Experience fever (hyperthermia) with Anesthesia Last Oral Intake Last Oral intake: Last Oral Intake NPO since last night Meds taken in AM with sips of water? Meds patient instructed to take am of surgery Any additional information?: No PONV PONV - prosthetic assistant: PONV - prosthetic assistant Female HX of Motion Sickness HX of N/V After Surgery Non-Smoker Duration of Surgery greater than 60 minutes Number of Risk Factors PONV Score Any additional information?: No Height & Weight Height & Weight: Anesthesia: Height & Weight Height 5 ft 2 in 12/04/24 07:33 Weight: 65.771 kg 12/04/24 07:33 Body Mass Index (BMI) 26.5 12/04/24 07:33 Respiratory Assessment Respiratory Assessment - prosthetic assistant: Respiratory Tract Infection Hx - prosthetic assistant Hx Respiratory Tract Infection No 10/21/24 10:11 STOP Sleep Apnea STOP Sleep Apnea - prosthetic assistant: STOP Sleep Apnea - prosthetic assistant Hx Hypertension No 10/21/24 10:11 Hx Sleep Apnea No 11/04/24 09:35 CPAP BIPAP Do you snore loudly (louder than talking or can be heard Do you often feel tired/ fatigued/ sleepy during daytime? Has anyone observed you stop breathing during sleep? STOP Results QUESTION #5 FULL TEXT : Do you snore loudly (louder than talking or can be heard through closed doors)? 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 Specify any problems Hx of Preganancy in last 3 Months Nurse Filling Out Transfusion & Questions: Date: Time: Patient unable to answer at this time (ie. confused, unrespo /Reproduction History /Reproductive History - prosthetic assistant: /Reproductive Hx- prosthetic assistant Hx Now Gestational Age (in weeks): EDC: Hx Hx Para Hx Section SAB No 10/21/24 10:11 [facility] Medical History Umbilical hernia Wears glasses Wears partial dentures Wears dentures Depression Cervical stenosis of spine Arthritis Low iron High cholesterol Non-smoker Shortness of breath on exertion History of echocardiogram History of stress test Thyroid disease Heart murmur Home Medications ?Medication ?Instructions ?Recorded ?Last Taken ?Type alendronate 35 mg tablet 35 mg PO QWEEK 09/27/2402/16 History atorvastatin 80 mg tablet 80 mg PO DAILY 09/27/2411/23 History baclofen 10 mg tablet 10 mg PO DAILY 09/27/2411/23 History calcium carbonate 500 mg PO DAILY 09/27/2407/19 History levothyroxine 100 mcg capsule 100 mcg PO DAILY 5 12/03/24 History mpiubdgw-ddyifprt-kweis acid 240 1 tab PO DAILY 12/03/24 History mcg-vit K1 150 mcg-herb 357 tablet (Alive Women's 50 Plus Ultra Multivitamin) vitamins A,C,E-zpst-ljwmbb 4,296 1 cap PO BID 09/27/24 12/03/24 History mcg-226 mg-90 mg capsule (PreserVision AREDS) zolpidem 10 mg tablet 10 mg PO QHS 09/27/24 History ketoconazole 2 % shampoo 1 applic topical WESA 12/01/24 History Allergy/AdvReac Type Severity Reaction Status Date / Time No Known Allergies Allergy Verified 12/04/24 07:33 Family History Sister Diabetes Surgical History S/P umbilical hernia repair, follow-up exam History of hysterectomy Previous back surgery Social History Smoking Status: Never smoker alcohol intake: never substance use type: does not use Review of Systems (Anesthesia) ROS Narrative System reviewed and no additional complaints, except as documented. Physical Exam Const oriented x3 Orientation / Consciousness: awake Resp normal respiratory effort and normal air movement Cardio regular rate and regular rhythm 12/04/24 1237 <Electronically signed by Pardeep Pierre MD> Date _ Pardeep Pierre MD Cosigner Signature: Date CC: ~ Signed [facility] Work Phone: [phone] 872-243204-12-2025 History and physical note Author Darrick Light [facility] Note Date/Time December 04, 2024 11: 41am [facility] Medical Records Department [address] [place] [id number] History & Physical Exam 12/04/24 1125 MR#: [id number] Acct: [id number] Name: GERMANIA DONIS Rep #:[id number] : 1945 79 From: Darrick Lara PCP: Dr. Sowmya Cabrera MD Status :REG ER Location: ED HPI - General General Date of Admission: 12/04/24 Chief Complaint: Acute onset abdominal pain and anorexia HPI Narrative GERMANIA DONIS, is a 79 F who presents with her to [facility] due to complaints of acute onset abdominal pain in the periumbilical region that began 3 days ago and has persisted. Patient reports some low-grade fevers and night sweats as well as anorexia along with this pain. However she denies any nausea, vomiting, or diarrhea. She denies any change to her diet, generally-speaking, but does confess she has not been able to eat the last couple of days due to the lack of appetite. Patient's ER workup is notable for CBC with differential that demonstrates a mild left shift but no leukocytosis. CT imaging of the abdomen pelvis was performed showing probable small bowel perforation with several foci of pneumoperitoneum. According to emergency medicine radiology discussed the possibility of a closed- loop obstruction, but this is not reflected in their impression. Interestingly, patient just underwent open umbilical hernia repair with mesh by Dr. Leonard on 11/04/2024. She reports an uneventful procedure and uneventful recovery. This represents her only abdominal surgery apart from a tubal ligation procedure approximately 40 years ago. [facility] Medical History Umbilical hernia Wears glasses Wears partial dentures Wears dentures Depression Cervical stenosis of spine Arthritis Low iron High cholesterol Non-smoker Shortness of breath on exertion History of echocardiogram History of stress test Thyroid disease Heart murmur Home Medications ?Medication ?Instructions ?Recorded ?Last Taken ?Type alendronate 35 mg tablet 35 mg PO QWEEK 09/27/2405/19 History atorvastatin 80 mg tablet 80 mg PO QDAY 09/27/2411/03 History baclofen 10 mg tablet 10 mg PO QDAY 09/27/2411/03 History calcium carbonate 500 mg PO QDAY 09/27/2410/23 History levothyroxine 100 mcg capsule 100 mcg PO QDAY 09/27/24 11/03/24 History bbcoyneq-fbvsmdlj-mlhid acid 240 1 tab PO DAILY 11/03/24 History mcg-vit K1 150 mcg-herb 357 tablet (Alive Women's 50 Plus Ultra Multivitamin) vitamins A,C,P-zmyr-xtdjem 4,296 1 cap PO BID 09/27/24 11/03/24 History mcg-226 mg-90 mg capsule (PreserVision AREDS) zolpidem 10 mg tablet 10 mg PO QHS 09/27/24 History Allergy/AdvReac Type Severity Reaction Status Date / Time No Known Allergies Allergy Verified 12/04/24 07:33 Family History Sister Diabetes Surgical History S/P umbilical hernia repair, follow-up exam History of hysterectomy Previous back surgery Social History Smoking Status: Never smoker alcohol intake: never substance use type: does not use Vital Signs Vital Signs Vital Signs: 12/04/24 07:33 12/04/24 09:32 12/04/24 11:00 Temperature 98.9 F Temperature Source Oral Pulse Rate 89 82 82 Respiratory Rate 18 18 18 Blood Pressure 108/66 140/62 H Blood Pressure Mean 80 88 Pulse Ox 97 96 96 Oxygen Delivery Method Room Air Weight Weight: 145 lb Body Mass Index (BMI) 26.5 Physical Exam Const alert, oriented x3 and well nourished General Appearance: cooperative Resp normal respiratory effort GI GI Narrative: Well-healed curvilinear infraumbilical incision without evidence of recurrent hernia. Nondistended, soft, nontender to palpation of the right abdominal quadrants. Focally tender of the left mid abdomen with palpation. Involuntary guarding present. Results Lab / Micro Data 12/04/24 08:04 12/04/24 08:04 Labs: Laboratory Results - last 24 hr 12/04/24 08:04: WBC 7.4, RBC 4.11 L, Hgb 12.2, Hct 37.1, MCV 90.3, MCH 29.7, MCHC 32.9, RDW Std Deviation 46.5 H, RDW Coeff of Zia 14.0, Plt Count 182, MPV 10.9, Immature Gran % (Auto) 0.400, Neut % (Auto) 83.2 H, Lymph % (Auto) 9.5 L, Branch % (Auto) 6.5, Eos % (Auto) 0.3, Baso % (Auto) 0.1, Absolute Neuts (auto) 6.2, Absolute Lymphs (auto) 0.71 L, Nucleated RBC % 0, Sodium 135, Potassium 4.5, Chloride 101, Carbon Dioxide 24.3, Anion Gap 10, BUN 17, Creatinine 0.72, Estim Creat Clear Calc 52.40, Est GFR (MDRD) Non-Af 86, BUN/Creatinine Ratio 23.5 H, Glucose 98, Calcium 9.0, Total Bilirubin 0.59, Direct Bilirubin 0.28, AST 39 H, ALT 32, Alkaline Phosphatase 110 H, Total Protein 6.9, Albumin 3.5, Globulin 3.4, Lipase 31 12/04/24 08:25: Urine Color Yellow, Urine Clarity Sl. Cloudy, Urine pH 6.0, Ur Specific [place] 1.010, Urine Protein 15 H, Urine Glucose (UA) Normal, Urine Ketones 15 H, Urine Occult Blood Negative, Urine Nitrite Negative, Urine Bilirubin Negative, Urine Urobilinogen Normal, Ur Leukocyte Esterase 25 H, UrineRBC 0 SEEN, Urine WBC 0-5 SEEN, Ur Squamous Epith Cells 0-5 SEEN, Urine Bacteria1+, Urine Mucus RARE Imaging Radiology Impression Abdomen/Pelvis CT 12/04/24 09:30 IMPRESSION: 1. Dilation of a central small bowel loop with focal rim enhancing intraperitoneal mass which appears in continuity with the small bowel loop, most compatible with small bowel perforation and abscess. Surgical consultation recommended. 2. Punctate free air along the dependent margin of the caudate lobe, compatible with pneumoperitoneum. 3. Severe distal colonic diverticulosis. Findings were discussed by Dr. Stevens with Dr. Naranjo via telephone at 10:34 a.m. on 12/04/2024. Reading Location: [id number] Assessment & Plan Assessment/Plan (1) Perforated small intestine: PLAN: Patient is 79-year-old female who presents with signs and symptoms of small bowel perforation for unknown etiology. She has no prior abdominal surgical history. It is possible this represents perforation of a isolated small bowel diverticulum. Suspected timing of perforation is approximately 48 to 72 hours ago based on her symptoms. Yet she remains remarkably well?appearing is certainly nontoxic. In fact, she does not even display true leukocytosis and her peritonitis is exceptionally localized. Despite these favorable signs, patient does have evidence of pneumoperitoneum and I have recommended emergent exploration via diagnostic laparoscopy. I have also advised her and her that I would be looking to perform a segmental smallbowel resection with 3 anastomosis and probable drain placement. They expressedsurprise over this information given patient's mild experience with symptoms to date but also confirm readiness to accept my recommendations. Empiric antibiotic coverage has been administered by emergency medicine both operative team and anesthesia are notified of intent to proceed emergently to the OR. Patient will be consented for diagnostic laparoscopy with small bowel resection,reanastomosis and probable drain placement as well as all procedures as indicated. She will be admitted to the MedSur floor postoperatively to monitorfor pain control and advancement of the diet. Darrick Light MD General Surgery Endocrine Surgery Pager: [facility] [address] [place] [address], Outpatient [facility]ilion, [address] [place] [address] Office: [phone] (2) Pneumoperitoneum: Charges/Coding Visit Charges Inpatient E&M: 14706 Init Hosp L2 12/04/24 1141 <Electronically signed by Darrick Light MD> Cosigner Signature (if applicable): CC: Dr. Sowmya Cabrera MD; Dr. Darrick Light MD~ Signed [facility] Work Phone: 1(801) 506-586504-12-2025 Consult note [facility] Medical Records Department [address] [place] [address] Pre-Anesthesia Evaluation 12/04/24 1205 MR#: [id number] Acct: [id number] Name: GERMANIA DONIS Rep #:[id number] : 1945 79 From: Pardeep Lara PCP: Dr. Sowmya Cabrera MD Status :REG [facility] Y Race: C Location: [place] [address] ASA Classification* ASA Classification ASA Classification: 3 and E Assessment & Plan Anesthesia* Anesthesia Assessment Anesthesia Assessment: Objective data and labs reviewed. Mild to moderate with Left to right PFO on bubble study. >4mets EKG reviewed. Discussed sedation and/or anesthesia options, risks, benefits, and alternatives with patient. Questions invited. The patient seems to understand and agrees to proceed with anesthesia plan. Reviewed the physical assessment, medical history, allergy history and patient home medications list prior to surgery/procedure/anesthetic and documented any changes. Performed airway and anesthesia risk assessments. Anesthesia Type Anesthesia Type: General History Source History Obtained from:: Patient and Chart Anesthesia Focused Assessment* Temperature: 98.9 F Pulse Rate: 82 Blood Pressure: 140/62 Respiratory Rate: 18 Pulse Ox: 96 Oxygen Delivery Method: Room Air Airway Assessment Mouth opens: >3 cm Mallampati Score: II Neck Range of motion (ROM): Full ROM Focused Labs Anesthesia Preop lab: CBC WBC 7.4 K/mm3 (4.4-11.0) 12/04/24 08:04 12/04/24 RBC 4.11 M/mm3 (4.2-5.4) L 12/04/24 08:04 12/04/24 Hgb 12.2 g/dL (12.0-15.0) 12/04/24 08:04 12/04/24 Hct 37.1 % (37-47) 12/04/24 08:04 12/04/24 Plt Count 182 K/mm3 (150-450) 12/04/24 08:04 12/04/24 CHEMISTRY Potassium 4.5 mmol/L (3.3-5.1) 12/04/24 08:04 12/04/24 Sodium 135 mmol/L (133-145) 12/04/24 08:04 12/04/24 Magnesium 2.2 mg/dL (1.6-2.6) 07/20/24 12:37 07/20/24 BUN 17 mg/dL (4-19) 12/04/24 08:04 12/04/24 Creatinine 0.72 mg/dL (0.70-1.20) 12/04/24 08:04 12/04/24 Glucose 98 mg/dL (70-99) 12/04/24 08:04 12/04/24 TSH 2.500 uIU/mL (0.300-4.200) 10/28/24 14:18 03/0 02/16 COAG Pre-Assessment Diagnosis/Proposed Procedure Planned Operative Procedure(s): Laproscopic Small Bowl removal Anesthesia History Anesthesia History - prosthetic assistant: Anesthesia History - prosthetic assistant Hx Hospitalization No 10/21/24 10:11 Any Problems With Anesthesia No 10/21/24 10:11 Cholinesterase deficiency No 10/21/24 10:11 You/Your Family Experience No 10/21/24 10:11 fever (hyperthermia) with Relationship Recent Exposure to Contagious No 11/04/24 06:19 Disease Does patient have nerve No 10/21/24 10:11 stimulator Patient instructed to have device shut off --Does patient have Pacemaker or ICD? When Was Last Pacemaker Check QUESTION #4 FULL TEXT: You/Your Family Experience fever (hyperthermia) with Anesthesia Last Oral Intake Last Oral intake: Last Oral Intake NPO since last night Meds taken in AM with sips of water? Meds patient instructed to take am of surgery Any additional information?: No PONV PONV - prosthetic assistant: PONV - prosthetic assistant Female HX of Motion Sickness HX of N/V After Surgery Non-Smoker Duration of Surgery greater than 60 minutes Number of Risk Factors PONV Score Any additional information?: No Height & Weight Height & Weight: Anesthesia: Height & Weight Height 5 ft 2 in 12/04/24 07:33 Weight: 65.771 kg 12/04/24 07:33 Body Mass Index (BMI) 26.5 12/04/24 07:33 Respiratory Assessment Respiratory Assessment - prosthetic assistant: Respiratory Tract Infection Hx - prosthetic assistant Hx Respiratory Tract Infection No 10/21/24 10:11 STOP Sleep Apnea STOP Sleep Apnea - prosthetic assistant: STOP Sleep Apnea - prosthetic assistant Hx Hypertension No 10/21/24 10:11 Hx Sleep Apnea No 11/04/24 09:35 CPAP BIPAP Do you snore loudly (louder than talking or can be heard Do you often feel tired/ fatigued/ sleepy during daytime? Has anyone observed you stop breathing during sleep? STOP Results QUESTION #5 FULL TEXT : Do you snore loudly (louder than talking or can be heard through closeddoors)? 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 Specify any problems Hx of Preganancy in last 3 Months Nurse Filling Out Transfusion & Questions: Date: Time: Patient unable to answer at this time (ie. confused, unrespo /Reproduction History /Reproductive History - prosthetic assistant: /Reproductive Hx- prosthetic assistant Hx Now Gestational Age (in weeks): EDC: Hx Hx Para Hx Section SAB No 10/21/24 10:11 [facility] Medical History Umbilical hernia Wears glasses Wears partial dentures Wears dentures Depression Cervical stenosis of spine Arthritis Low iron High cholesterol Non-smoker Shortness of breath on exertion History of echocardiogram History of stress test Thyroid disease Heart murmur Home Medications ?Medication ?Instructions ?Recorded ?Last Taken ?Type alendronate 35 mg tablet 35 mg PO QWEEK 09/27/2402/16 History atorvastatin 80 mg tablet 80 mg PO DAILY 09/27/2411/23 History baclofen 10 mg tablet 10 mg PO DAILY 09/27/2411/23 History calcium carbonate 500 mg PO DAILY 09/27/2407/19 History levothyroxine 100 mcg capsule 100 mcg PO DAILY 5 12/03/24 History qysmpxam-dlrktcjs-qbixd acid 240 1 tab PO DAILY 12/03/24 History mcg-vit K1 150 mcg-herb 357 tablet (Alive Women's 50 Plus Ultra Multivitamin) vitamins A,C,S-dwfm-oqeisu 4,296 1 cap PO BID 09/27/24 12/03/24 History mcg-226 mg-90 mg capsule (PreserVision AREDS) zolpidem 10 mg tablet 10 mg PO QHS 09/27/24 History ketoconazole 2 % shampoo 1 applic topical WESA 12/01/24 History Allergy/AdvReac Type Severity Reaction Status Date / Time No Known Allergies Allergy Verified 12/04/24 07:33 Family History Sister Diabetes Surgical History S/P umbilical hernia repair, follow-up exam History of hysterectomy Previous back surgery Social History Smoking Status: Never smoker alcohol intake: never substance use type: does not use Review of Systems (Anesthesia) ROS Narrative System reviewed and no additional complaints, except as documented. Physical Exam Const oriented x3 Orientation / Consciousness: awake Resp normal respiratory effort and normal air movement Cardio regular rate and regular rhythm 12/04/24 1237 MD> Date _ Pardeep Pierre MD Cosigner Signature: Date CC: ~ Signed [facility]04-12-2025 History and physical note [facility] Medical Records Department [address] [place] [address] History & Physical Exam 12/04/24 1125 MR#: [id number] Acct: [id number] Name: GERMANIA DONIS Rep #:[id number] : 1945 79 From: Darrick Lara PCP: Dr. Sowmya Cabrera MD Status :REG ER Location: ED HPI - General General Date of Admission: 12/04/24 Chief Complaint: Acute onset abdominal pain and anorexia HPI Narrative GERMANIA DONIS, is a 79 F who presents with her to [facility] due to complaints of acute onset abdominal pain in the periumbilical region that began 3 days ago and has persisted.Patient reports some low-grade fevers and night sweats as well as anorexia along with this pain. However she denies any nausea, vomiting, or diarrhea. She denies any change to her diet, generally-speaking, but does confess she has not been able to eat the last couple of days due to the lack of appetite. Patient's ER workup is notable for CBC with differential that demonstrates a mild left shift but noleukocytosis. CT imaging of the abdomen pelvis was performed showing probable small bowel perforation with several foci of pneumoperitoneum. According to emergency medicine radiology discussed the pos sibility of a closed-loop obstruction, but this is not reflected in their impression. Interestingly, patient just underwent open umbilical hernia repair with mesh by Dr. Leonard on 11/04/2024. She reports an uneventful procedure and uneventful recovery. This represents her only abdominal surgery apart from a tubal ligation procedure approximately 40 years ago. [facility] Medical History Umbilical hernia Wears glasses Wears partial dentures Wears dentures Depression Cervical stenosis of spine Arthritis Low iron High cholesterol Non-smoker Shortness of breath on exertion History of echocardiogram History of stress test Thyroid disease Heart murmur Home Medications ?Medication ?Instructions ?Recorded ?Last Taken ?Type alendronate 35 mg tablet 35 mg PO QWEEK 09/27/24/05/19 History atorvastatin 80 mg tablet 80 mg PO QDAY 09/27/2411/03 History baclofen 10 mg tablet 10 mg PO QDAY 09/27/2411/03 History calcium carbonate 500 mg PO QDAY 09/27/2410/23 History levothyroxine 100 mcg capsule 100 mcg PO QDAY 09/27/24 11/03/24 History vvicfpdc-lglwfcll-uaafa acid 240 1 tab PO DAILY 11/03/24 History mcg-vit K1 150 mcg-herb 357 tablet (Alive Women's 50 Plus Ultra Multivitamin) vitamins A,C,B-rdnt-ghntgg 4,296 1 cap PO BID 09/27/24 11/03/24 History mcg-226 mg-90 mg capsule (PreserVision AREDS) zolpidem 10 mg tablet 10 mg PO QHS 09/27/24 History Allergy/AdvReac Type Severity Reaction Status Date / Time No Known Allergies Allergy Verified 12/04/24 07:33 Family History Sister Diabetes Surgical History S/P umbilical hernia repair, follow-up exam History of hysterectomy Previous back surgery Social History Smoking Status: Never smoker alcohol intake: never substance use type: does not use Vital Signs Vital Signs Vital Signs: 12/04/24 07:33 12/04/24 09:32 12/04/24 11:00 Temperature 98.9 F Temperature Source Oral Pulse Rate 89 82 82 Respiratory Rate 18 18 18 Blood Pressure 108/66 140/62 H Blood Pressure Mean 80 88 Pulse Ox 97 96 96 Oxygen Delivery Method Room Air Weight Weight: 145 lb Body Mass Index (BMI) 26.5 Physical Exam Const alert, oriented x3 and well nourished General Appearance: cooperative Resp normal respiratory effort GI GI Narrative: Well-healed curvilinear infraumbilical incision without evidence of recurrent hernia. Nondistended,soft, nontender to palpation of the right abdominal quadrants. Focally tender of the left mid abdomen with palpation. Involuntary guarding present. Results Lab / Micro Data 12/04/24 08:04 12/04/24 08:04 Labs: Laboratory Results - last 24 hr 12/04/24 08:04: WBC 7.4, RBC 4.11 L, Hgb 12.2, Hct 37.1, MCV 90.3, MCH 29.7, MCHC 32.9, RDW Std Deviation 46.5 H, RDW Coeff of Zia 14.0, Plt Count 182, MPV 10.9, Immature Gran % (Auto) 0.400, Neut % (Auto) 83.2 H, Lymph % (Auto) 9.5 L, Branch % (Auto) 6.5, Eos % (Auto) 0.3, Baso % (Auto) 0.1, Absolute Neuts (auto) 6.2, Absolute Lymphs (auto) 0.71 L, Nucleated RBC % 0, Sodium 135, Potassium 4.5, Chloride 101, Carbon Dioxide 24.3, Anion Gap 10, BUN 17, Creatinine 0.72, Estim Creat Clear Calc 52.40,Est GFR (MDRD) Non-Af 86, BUN/Creatinine Ratio 23.5 H, Glucose 98, Calcium 9.0, Total Bilirubin 0.59, Direct Bilirubin 0.28, AST 39 H, ALT 32, Alkaline Phosphatase 110 H, Total Protein 6.9, Albumin 3.5, Globulin 3.4, Lipase 31 12/04/24 08:25: Urine Color Yellow, Urine Clarity Sl. Cloudy, Urine pH 6.0, Ur Specific [place] 1.010, Urine Protein 15 H, Urine Glucose (UA) Normal, Urine Ketones 15 H, Urine Occult Blood Negative, Urine Nitrite Negative, Urine Bilirubin Negative, Urine Urobilinogen Normal, Ur Leukocyte Esterase 25 H, UrineRBC 0 SEEN, Urine WBC 0-5 SEEN, Ur Squamous Epith Cells 0-5 SEEN, Urine Bacteria1+, Urine Mucus RARE Imaging Radiology Impression Abdomen/Pelvis CT 12/04/24 09:30 IMPRESSION: 1. Dilation of a central small bowel loop with focal rim enhancing intraperitoneal mass which appears in continuity with the small bowel loop, most compatible with small bowel perforation and abscess. Surgical consultation recommended. 2. Punctate free air along the dependent margin of the caudate lobe, compatible with pneumoperitoneum. 3. Severe distal colonic diverticulosis. Findings were discussed by Dr. Stevens with Dr. Naranjo via telephone at 10:34 a.m. on 12/04/2024. Reading Location: [id number] Assessment & Plan Assessment/Plan (1) Perforated small intestine: PLAN: Patient is 79-year-old female who presents with signs and symptoms of small bowel perforationfor unknown etiology. She has no prior abdominal surgical history. It is possible this represents perforation of a isolated small bowel diverticulum. Suspected timing of perforation is approximately 48 to 72 hours ago based on her symptoms. Yet she remains remarkably well?appearing is certainly nontoxic. In fact, she does not even display true leukocytosis and her peritonitis is exceptionally localized. Despite these favorable signs, patient does have evidence of pneumoperitoneum and I have recommended emergent exploration via diagnostic laparoscopy. I have also advised her and her that I would be looking to perform a segmental smallbowel resection with 3 anastomosis and probable drain placement. They expressedsurprise over this information given patient's mild experience with symptoms to date but also confirm readiness to accept my recommendations. Empiric antibiotic coverage has been administered by emergency medicine both operative team and anesthesia are notified of intentto proceed emergently to the OR. Patient will be consented for diagnostic laparoscopy with small bowel resection,reanastomosis and probable drain placement as well as all procedures as indicated. Reannawill be admitted to the MedSur floor postoperatively to monitorfor pain control and advancement of the diet. Darrick Light MD General Surgery Endocrine Surgery Pager: [facility] [address] [place] [address], [address] [place] [address] Office: [phone] (2) Pneumoperitoneum: Charges/Coding Visit Charges Inpatient E&M: 06679 Init Hosp L2 12/04/24 1141 Cosigner Signature (if applicable): CC: Dr. Sowmya Cabrera MD; Dr. Darrick Light MD~ Signed [facility]04-12-2025 [facility] Medical Records Department [address] [place] [address] History Physical Exam 12/04/24 1125 MR#: [id number] Acct: [id number] Name: GERMANIA DONIS Rep #: [id number] : 1945 79 From: Darrick Light MD PCP: Dr. Sowmya Cabrera MD Status:REG ER Location: ED HPI - General General Date of Admission: 12/04/24 Chief Complaint: Acute onset abdominal pain and anorexia HPI Narrative GERMANIA DONIS, is a 79 F who presents with her to [facility] due to complaints of acute onset abdominal pain in the periumbilical region that began 3 days ago and has persisted. Patient reports some low-grade fevers and night sweats as well as anorexia along with this pain. However she denies any nausea, vomiting, or diarrhea. She denies any change to her diet, generally- speaking, but does confess she has not been able to eat the last couple of days due to the lack of appetite. Patient's ER workup is notable for CBC with differential that demonstrates a mild left shift but no leukocytosis. CT imaging of the abdomen pelvis was performed showing probable small bowel perforation with several foci of pneumoperitoneum. According to emergency medicine radiology discussed the possibility of a closed-loop obstruction, but this is not reflected in their impression. Interestingly, patient just underwent open umbilical hernia repair with mesh by Dr. Leonard on 11/04/2024. She reports an uneventful procedure and uneventful recovery. This represents her only abdominal surgery apart from a tubal ligation procedure approximately 40 years ago. [facility] Medical History Umbilical hernia Wears glasses Wears partial dentures Wears dentures Depression Cervical stenosis of spine Arthritis Low iron High cholesterol Non-smoker Shortness of breath on exertion History of echocardiogram History of stress test Thyroid disease Heart murmur Home Medications ???Medication ???Instructions ???Recorded ???Last Taken ???Type alendronate 35 mg tablet 35 mg PO QWEEK 09/27/24 10/31/24 H istory atorvastatin 80 mg tablet 80 mg PO QDAY 09/27/24 11/03/24 Hi story baclofen 10 mg tablet 10 mg PO QDAY 09/27/24 11/03/24 Hi story calcium carbonate 500 mg PO QDAY 09/27/24 11/03/24 H istory levothyroxine 100 mcg capsule 100 mcg PO QDAY 09/27/24 11/03/24 History jkxpmegj-wdqpohqg-yrdgo acid 240 1 tab PO DAILY 09/27/24 11/03/24 H istory mcg-vit K1 150 mcg-herb 357 tablet (Alive Women's 50 Plus Ultra Multivitamin) vitamins A,C,L-tpjx-mjrxhu 4,296 1 cap PO BID 09/27/24 11/03/24 His tory mcg-226 mg-90 mg capsule (PreserVision AREDS) zolpidem 10 mg tablet 10 mg PO QHS 09/27/24 11/03/24 His tory Allergy/AdvReac Type Severity Reaction Status Date / Time No Known Allergies Allergy Verified 12/04/24 07:33 Family History Sister Diabetes Surgical History S/P umbilical hernia repair, follow-up exam History of hysterectomy Previous back surgery Social History Smoking Status: Never smoker alcohol intake: never substance use type: does not use Vital Signs Vital Signs Vital Signs: 12/04/24 07:33 12/04/24 09:32 12/04/24 11:00 Temperature 98.9 F Temperature Source Oral Pulse Rate 89 82 82 Respiratory Rate 18 18 18 Blood Pressure 108/66 140/62 H Blood Pressure Mean 80 88 Pulse Ox 97 96 96 Oxygen Delivery Method Room Air Weight Weight: 145 lb Body Mass Index (BMI) 26.5 Physical Exam Const alert, oriented x3 and well nourished General Appearance: cooperative Resp normal respiratory effort GI GI Narrative: Well-healed curvilinear infraumbilical incision without evidence of recurrent hernia. Nondistended, soft, nontender to palpation of the right abdominal quadrants. Focally tender of the left mid abdomen with palpation. Involuntary guarding present. Results Lab / Micro Data 12/04/24 08:04 12/04/24 08:04 Labs: Laboratory Results - last 24 hr 12/04/24 08:04: WBC 7.4, RBC 4.11 L, Hgb 12.2, Hct 37.1, MCV 90.3, MCH 29.7, MCHC 32.9, RDW Std Deviation 46.5 H, RDW Coeff of Zia 14.0, Plt Count 182, MPV 10.9, Immature Gran % (Auto) 0.400, Neut % (Auto) 83.2 H, Lymph % (Auto) 9.5 L, Branch % (Auto) 6.5, Eos % (Auto) 0.3, Baso % (Auto) 0.1, Absolute Neuts (auto) 6.2, Absolute Lymphs (auto) 0.71 L, Nucleated RBC % 0, Sodium 135, Potassium 4.5, Chloride 101, Carbon Dioxide 24.3, Anion Gap 10, BUN 17, Creatinine 0.72, Estim Creat Clear Calc 52.40, Est GFR (MDRD) Non-Af 86, BUN/Creatinine Ratio 23.5 H, Glucose 98, Calcium 9.0, Total Bilirubin 0.59, Direct Biliru (more content not included)...[facility]04-12-2025 Radiology Diagnostic study note [facility] Imaging Services [address] [place] [address] Abdomen/Pelvis WITH Contrast MR#: [id number] Acct: [id number] Name: GERMANIA DONIS Rep #: [id number] : 1945 F 79 From: Lorena Stevens MD PCP: Dr. Sowmya Cabrera MD Status: REG ER Study:Abdomen/Pelvis WITH Contrast Date of Ex am: 12/04/24 Exam# [id number] Ordering Dr: Jane Naranjo DO PROCEDURE: ABDOMEN/PELVIS WITH CONTRAST 12/04/2024 REASON FOR EXAM: ABDOMINAL PAIN TECHNIQUE: Abdomen and pelvis CT with intravenous contrast. Coronal and Sagittal reconstruction series were provided. PATIENT PREPARATION: Per protocol ORAL CONTRAST: Administered. CONTRAST: Isovue 370 VOLUME: 100 mL One or more dose reduction techniques were used (e.g., Automated exposure control, adjustment of the mA and/or kV according to patient size, use of iterative reconstruction technique. RADIATION DOSE SUMMARY: CTDlvol: 10 mGy DLP: 580 mGycm COMPARISON: None. FINDINGS: Lung bases: The heart is normal in size with aortic valvular calcifications. The lung bases are clear. Liver: The liver is normal in size without focal hepatic mass. The major portalveins are patent. Nobiliary ductal dilation. There is punctate free air along the dependent margin of the caudate lobe. Gallbladder: No radiopaque stones within the gallbladder. Spleen: Normal-size. Pancreas: Unremarkable. Adrenals: Mild thickening of the left adrenal gland without adrenal mass. Unremarkable right adrenal gland. Kidneys: Bilateral parapelvic cysts. No hydronephrosis or nephrolithiasis. Bladder: Distended and unremarkable. Reproductive Organs: Appropriate for patient age. Bowel: There is dilation of a central small bowel loop measuring up to 3.1 cm (coronal image 45). Just distal to the dilated small bowel loop, there is a focal portion of the small bowel measuring 4.5 x 4.1 cm (series 2, image 60), which demonstrates rim enhancement, air-fluid levels and punctate free air along the superior aspect ofthe fluid collection (series 2, images 51 and 54). This appears in continuity with the small bowel loop (coronal image 43). Marked fat stranding and edema of the subjacent small bowel loops. No large volume ascites. Normal appendix. Severe distal colonic diverticulosis. Lymph nodes: Prominent mesenteric nodes, likely reactive. Vasculature: Severe mixed aortoiliac plaque. Bones/soft tissues: Subcutaneous thickening within the umbilicus, compatible with recent hernia surgery. Thoracolumbar spondylosis. CT/Abdomen/Pelvis WITH Contrast IMPRESSION: 1. Dilation of a central small bowel loop with focal rim enhancing intraperitoneal mass which appears in continuity with the small bowel loop, most compatible with small bowel perforation and abscess. Surgical consultation recommended. 2. Punctate free air along the dependent margin of the caudate lobe, compatible with pneumoperitoneum. 3. Severe distal colonic diverticulosis. Findings were discussed by Dr. Stevens with Dr. Naranjo via telephone at 10:34 a.m. on 12/04/2024. Reading Location: [facility] CC: Dr. Sowmya Cabrera MD; Dr. Pardeep Naranjo, DO ~ Director Of Education: Signed [facility]03-13-2025 Consult note Author Cyrus Martinezorestes [facility] Note Date/Time November 04, 2024 9:4 0am [facility] Medical Records Department [address] [place] [address] Anesthesia Postop Eval I 11/04/24 0833 MR#: [id number] Acct: [id number] Name: GERMANIA DONIS Rep #:[id number] : 1945 79 From: Cyrus advila CRNA PCP: Dr. Sowmya Cabrera MD Status :REG SDC Y Race: C Location: [place] [address] Anesthesia: Postop Eval I Current Vital Signs Temperature: 98.4 F Pulse Rate: 76 Blood Pressure: 86/53 Respiratory Rate: 18 Pulse Ox: 98 Oxygen Delivery Method: Room Air Assessment Airway patent: Yes Spontaneous unlabored respirations: Yes nausea: No Vomiting: No Anesthesia Complication: No Fluid Hydration Crystalloid volume administer (ml): 1,000 Total IV fluid infused: 1,000 Progress Note Anesthesia document: Postop Eval 1 completed: Yes 11/04/24 0940 <Electronically signed by Cyrusmauro Metz carrilloorestes BRAR> Date _ Cyrus Leung ZONIA Cosigner Signature: Date CC: ~ Signed [facility] Work Phone: 1(809) 446-295903-13-2025 Discharge summary Author Shelly Leonard [facility] Note Date/Time November 04, 2024 8:1 0am [facility] Medical Records Department [address] [place] [address] Instructions for Home/Discharge Instructions 11/04/24 0808 MR#: [id number] Acct: [id number] Name: GERMANIA DONIS Rep #:[id number] : 1945 79 From: Shelly Leonard MD PCP: Dr. Sowmya Cabrera MD Status :REG [facility] Discharge Instructions Diet Discharge Diet: Light diet - advance as tolerated Activity May shower in (days): 5 (Keep umbilical dressing clean dry and intact for 5 days. Okay to tape off with a Ziploc bag to shower. Or lower shower and upper sponge bath.) Lifting Restrictions: no lifting >20 lbs x 2 wks, no strenuous exercise for 4 wks Additional Activity Instructions:: - Dressing / Incision Call your doctor if your incision/area has: Continuous Slow Oozing, Sudden Increased Bleeding, Increased Pain/ Swelling, Increased Redness, Foul Smelling Discharge and Swelling at the incision site Call your doctor if you observe: Fever of 101 or Higher Remove Dressing in: 5 days (After 5 days okay to remove surgical dressing. Place cotton ball or rolled up gauze in bellybutton and retape daily for 2 more days.) Cleanse incision/area with: Do not get Incision Wet (for 5 days) Additional Dressing/Incision Instructions:: Steri-Strips will fall off in 7 to 10 days, if they do not fall off okay to remove after 10 days. Follow Up Care Please Follow Up With: Shelly Leonard MD When: Call the office for a follow-up appointment 2 weeks; after 5 PM and on call [phone] with any concerns. Test Results: Test results from this visit will be discussed in further detail at your follow- up appointment, if applicable. Discharge Plan Admission Attending Provider: Shelly Leonard Primary Care Provider: Sowmya Cabrera Instructions Additional Instructions / Restrictions: Okay to take ibuprofen 400-600 mg PO q6hr PRN and Tylenol 650 to 1000 mg p.o. every 6 hours as needed along with the oxycodone. Take all pain meds with food. Oxycodone can cause constipation recommend taking daily stool softener (i.e. Colace/docusate) while taking the pain meds. Recommend starting some MiraLAX in1 to 2 days if no bowel movement. If still no bowel movement the following day recommend taking additional MiraLAX versus magnesium citrate half the bottle andwaiting 4- 6 hours if still no results take the other half the bottle. Print Language: [place]ese Discharge Orders/Prescriptions Prescriptions: New oxycodone 5 mg capsule 5 mg PO Q6H PRN (Reason: pain) 3 Days Qty: 10 0RF Continued levothyroxine 100 mcg capsule 100 mcg PO QDAY atorvastatin 80 mg tablet 80 mg PO QDAY zolpidem 10 mg tablet 10 mg PO QHS baclofen 10 mg tablet 10 mg PO QDAY PreserVision AREDS 4,296 mcg-226 mg-90 mg capsule 1 cap PO BID calcium carbonate 500 mg calcium (1,250 mg) tablet 500 mg PO QDAY Alive Women's 50 Plus Ultra MV 240-150 mcg tablet 1 tab PO DAILY alendronate 35 mg tablet 35 mg PO QWEEK Other Ambulatory Orders: 12 Lead EKG (Routine) Location: None Selected Ordered By: Dr. Tito Dexter Referrals / Follow Up: Sowmya Cabrera MD [Primary Care Provider] - Disposition Disposition (needs filled in before D/C Order can be placed): Home, Self Care 11/04/24 0810<Electronically signed by Shelly Leonard MD>Shelly Leonard MD CC: Dr. Sowmya Cabrera MD ~ Signed [facility] Work Phone: [phone] Consult note [facility] Medical Records Department [address] [place] [address] Anesthesia Postop Eval I 11/04/24 0833 MR#: [id number] Acct: [id number] Name: GERMANIA DONIS Rep #:[id number] : 1945 79 From: Cyrus davila CRNA PCP: Dr. Sowmya Cabrera MD Status :REG [facility] Y Race: C Location: [place] [address] Anesthesia: Postop Eval I Current Vital Signs Temperature: 98.4 F Pulse Rate: 76 Blood Pressure: 86/53 Respiratory Rate: 18 Pulse Ox: 98 Oxygen Delivery Method: Room Air Assessment Airway patent: Yes Spontaneous unlabored respirations: Yes nausea: No Vomiting: No Anesthesia Complication: No Fluid Hydration Crystalloid volume administer (ml): 1,000 Total IV fluid infused: 1,000 Progress Note Anesthesia document: Postop Eval 1 completed: Yes 11/04/24 0940 ero JUNIOR COPYWRITER> Date _ Cyrus Jain Signature: Date CC: ~ Signed [facility]03-13-2025 History and physical note Author Shelly Leonard [facility] Note Date/Time November 04, 2024 7:1 9am [facility] Medical Records Department [address] [place] [address] H&P Exam - Surgical 11/04/24 0717 MR#: [id number] Acct: [id number] Name: GERMANIA DONIS Rep #:[id number] : 1945 79 From: Shelly Leonard MD PCP: Dr. Sowmya Cabrera MD Status :[facility] Location: [place] [address] HPI - General General Date of Service: 11/04/24 HPI Narrative GERMANIA DONIS, is a 79 F who presents for umbilical hernia pair with possible mesh. Patient still been having pain at her umbilicus. Patient states she did have a fever last night but no other symptoms this morning does not have any fevers or symptoms as well. 09/27/24 HPI HPI: 79-year-old female presents due to umbilical hernia. Patient states she has hadthis for about 10 months had severe discomfort twice more recently. Patient is interested in having it repaired. Patient denies any abdominal surgeries. [facility] Medical History Wears glasses Wears partial dentures Wears dentures Depression Cervical stenosis of spine Arthritis Low iron High cholesterol Non-smoker Shortness of breath on exertion History of echocardiogram History of stress test Thyroid disease Heart murmur Home Medications ?Medication ?Instructions ?Recorded ?Last Taken ?Type alendronate 35 mg tablet 35 mg PO QWEEK 09/27/24 03/05/19 History atorvastatin 80 mg tablet 80 mg PO QDAY 09/27/2411/03 History baclofen 10 mg tablet 10 mg PO QDAY 09/27/2411/03 History calcium carbonate 500 mg PO QDAY 09/27/2410/23 History levothyroxine 100 mcg capsule 100 mcg PO QDAY 09/27/24 11/03/24 History xiikijwj-nhzncvmb-xrrxx acid 240 1 tab PO DAILY 11/03/24 History mcg-vit K1 150 mcg-herb 357 tablet (Alive Women's 50 Plus Ultra Multivitamin) vitamins A,C,R-ingl-yotoyk 4,296 1 cap PO BID 09/27/24 11/03/24 History mcg-226 mg-90 mg capsule (PreserVision AREDS) zolpidem 10 mg tablet 10 mg PO QHS 09/27/24 History Allergy/AdvReac Type Severity Reaction Status Date / Time No Known Allergies Allergy Verified 11/04/24 06:15 Family History (Updated 09/27/24 @ 14:13 by Germania Mathur) Sister Diabetes Surgical History History of hysterectomy Previous back surgery Social History (Updated 09/27/24 @ 14:13 by Germania Mathur) Smoking Status: Never smoker alcohol intake: never substance use type: does not use Vital Signs Vital Signs Vital Signs: 11/04/24 06:19 11/04/24 06:19 11/04/24 06:41 Temperature 98 F 98 F Temperature Source Temporal Pulse Rate 82 82 Respiratory Rate 16 16 Respiratory Pattern Normal Blood Pressure 93/62 93/62 Blood Pressure Mean 72 Blood Pressure Source Monitor Blood Pressure Position Semi-Fowlers Blood Pressure Location Right Arm Pulse Ox 96 96 Oxygen Delivery Method Room Air Room Air Weight Weight: 141 lb 8.588 oz Body Mass Index (BMI) 23.5 Physical Exam Const alert, oriented x3 and no apparent distress HEENT normocephalic and head/scalp atraumatic Resp normal respiratory effort Cardio regular rate GI soft to palpation; Negative for non-distended GI Narrative: Tender at umbilicus, umbilical hernia Palpation: Negative for guarding Extremity no clubbing, cyanosis or edema Skin no rashes or lesions noted Neuro CN's II-XII intact bilaterally Psych mental status grossly normal Assessment & Plan Assessment/Plan (1) Umbilical hernia: PLAN: Plan Plan to do an umbilical hernia repair with possible mesh. Reviewed the procedure with the patient including the risks, including but not limited to infection, bleeding, injury to the small bowel, and recurrence. Patient no further questions time. Shelly Leonard M.D. Pager: [phone] [facility] [address] [place] [address], [facility], [address] [place] [address] Office: [phone] 11/04/24 0719 <Electronically signed by Shelly Leonard MD> Cosigner Signature (if applicable): CC: Dr. Sowmya Cabrera MD; Dr. Shelly Leonard MD~ Signed [facility] Work Phone: 1(327) 277-703203-13-2025 Consult note Author Man Link [facility] Note Date/Time November 04, 2024 6:4 6am [facility] Medical Records Department [address] [place] [address] Pre-Anesthesia Evaluation 11/04/24 0637 MR#: [id number] Acct: [id number] Name: GERMANIA DONIS Rep #:[id number] : 1945 79 From: Man Link MD PCP: Dr. Sowmya Cabrera MD Status :REG SDC Y Race: C Location: [place] [address] ASA Classification* ASA Classification ASA Classification: 3 (Thyroid dz, anemia, hx of PFO, HLD) Assessment & Plan Anesthesia* Anesthesia Assessment Anesthesia Assessment: Discussed sedation and/or anesthesia options, risks, benefits, and alternatives with patient/parents/legal guardian/POA. Questions invited. The patient/parents/legal guardian/POA seems to understand and agrees to proceedwith anesthesia plan. Reviewed the physical assessment, medical history, allergy history and patient home medications list prior to surgery/procedure/anesthetic and documented any changes. Performed airway and anesthesia risk assessments. Anesthesia Type Anesthesia Type: General History Source History Obtained from:: Patient and Chart Anesthesia Focused Assessment* Temperature: 98 F Pulse Rate: 82 Blood Pressure: 93/62 Respiratory Rate: 16 Pulse Ox: 96 Oxygen Delivery Method: Room Air Airway Assessment Mouth opens: >3 cm Mallampati Score: III Teeth Condition: Dentures, Lower (partial) and Upper Neck Range of motion (ROM): Full ROM Focused Labs Anesthesia Preop lab: CBC WBC 4.6 K/mm3 (4.4-11.0) 07/20/24 12:37 07/20/24 RBC 4.24 M/mm3 (4.2-5.4) 07/20/24 12:37 07/20/24 Hgb 12.8 g/dL (12.0-15.0) 07/20/24 12:37 07/20/24 Hct 39.4 % (37-47) 07/20/24 12:37 07/20/24 Plt Count 216 K/mm3 (150-450) 07/20/24 12:37 07/20/24 CHEMISTRY Potassium 3.7 mmol/L (3.5-5.1) 07/20/24 12:37 07/20/24 Sodium 141 mmol/L (136-145) 07/20/24 12:37 07/20/24 Magnesium 2.2 mg/dL (1.6-2.6) 07/20/24 12:37 07/20/24 BUN 15 mg/dL (7-18) 07/20/24 12:37 07/20/24 Creatinine 0.68 mg/dL (0.55-1.02) 07/20/24 12:37 07/20/24 Glucose 91 mg/dL (74-106) 07/20/24 12:37 07/20/24 TSH 2.500 uIU/mL (0.300-4.200) 10/28/24 14:18 03/0 02/16 COAG Pre-Assessment Diagnosis/Proposed Procedure Planned Operative Procedure(s): Hernia,Open Incisional Repair w/ poss Mesh Anesthesia History Anesthesia History - prosthetic assistant: Anesthesia History - prosthetic assistant Hx Hospitalization No 10/21/24 10:11 Any Problems With Anesthesia No 10/21/24 10:11 Cholinesterase deficiency No 10/21/24 10:11 You/Your Family Experience No 10/21/24 10:11 fever (hyperthermia) with Relationship Recent Exposure to Contagious No 11/04/24 06:19 Disease Does patient have nerve No 10/21/24 10:11 stimulator Patient instructed to have device shut off --Does patient have Pacemaker No 11/04/24 06:19 or ICD? When Was Last Pacemaker Check QUESTION #4 FULL TEXT: You/Your Family Experience fever (hyperthermia) with Anesthesia Last Oral Intake Last Oral intake: Last Oral Intake NPO since 21:00 11/04/24 06:19 Meds taken in AM with sips of No 11/04/24 06:19 water? Meds patient instructed to take am of surgery PONV PONV - prosthetic assistant: PONV - prosthetic assistant Female Yes 10/21/24 10:11 HX of Motion Sickness No 10/21/24 10:11 HX of N/V After Surgery No 10/21/24 10:11 Non-Smoker Yes 10/21/24 10:11 Duration of Surgery greater Yes 10/21/24 10:11 than 60 minutes Number of Risk Factors 3 10/21/24 10:11 PONV Score Moderate Risk 10/21/24 10:11 Height & Weight Height & Weight: Anesthesia: Height & Weight Height 5 ft 5 in 11/04/24 06:19 Weight: 64.2 kg 11/04/24 06:19 Body Mass Index (BMI) 23.5 11/04/24 06:19 Respiratory Assessment Respiratory Assessment - prosthetic assistant: Respiratory Tract Infection Hx - prosthetic assistant Hx Respiratory Tract Infection No 10/21/24 10:11 STOP Sleep Apnea STOP Sleep Apnea - prosthetic assistant: STOP Sleep Apnea - prosthetic assistant Hx Hypertension No 10/21/24 10:11 Hx Sleep Apnea No 10/21/24 10:11 CPAP BIPAP Do you snore loudly (louder No 10/21/24 10:11 than talking or can be heard Do you often feel tired/ No 10/21/24 10:11 fatigued/ sleepy during daytime? Has anyone observed you stop No 10/21/24 10:11 breathing during sleep? STOP Results Negative 10/21/24 10:11 QUESTION #5 FULL TEXT : Do you snore loudly (louder than talking or can be heard through closed doors)? 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 Specify any problems Hx of Preganancy in last 3 N/A 10/21/24 10:11 Months Nurse Filling Out Transfusion NBUCHER 10/21/24 10:11 & Questions: Date: 10/21/24 10/21/24 10:11 Time: 10:11 10/21/24 10:11 Patient unable to answer at this time (ie. confused, unrespo /Reproduction History /Reproductive History - prosthetic assistant: /Reproductive Hx- prosthetic assistant Hx Now No 10/21/24 10:11 Gestational Age (in weeks): EDC: Hx Hx Para Hx Section SAB No 10/21/24 10:11 Active Medications Active Medications: Current Medications Generic Name Dose Route Start Last Admin Trade Name Freq PRN Reason Stop Dose Admin Cefazolin Sodium 2 gm/ N/A 20 mls @ 400 mls/hr 11/04/24 07:30 IV 11/04/24 07:32 PREOP ONE Sodium Chloride 1,000 mls @ 15 mls/hr 11/04/24 06:00 11/04/24 06:26 IV 11/09/24 19:19 15 mls/hr .Q48H ESTEPHANIE Administration Protocol [facility] Medical History Wears glasses Wears partial dentures Wears dentures Depression Cervical stenosis of spine Arthritis Low iron High cholesterol Non-smoker Shortness of breath on exertion History of echocardiogram History of stress test Thyroid disease Heart murmur Home Medications ?Medication ?Instructions ?Recorded ?Last Taken ?Type alendronate 35 mg tablet 35 mg PO QWEEK 09/27/2405/19 History atorvastatin 80 mg tablet 80 mg PO QDAY 09/27/2411/03 History baclofen 10 mg tablet 10 mg PO QDAY 09/27/2411/03 History calcium carbonate 500 mg PO QDAY 09/27/2410/23 History levothyroxine 100 mcg capsule 100 mcg PO QDAY 09/27/24 11/03/24 History wtucjzuj-jqsdeicd-fzgwq acid 240 1 tab PO DAILY 11/03/24 History mcg-vit K1 150 mcg-herb 357 tablet (Alive Women's 50 Plus Ultra Multivitamin) vitamins A,C,B-inwu-qskger 4,296 1 cap PO BID 09/27/24 11/03/24 History mcg-226 mg-90 mg capsule (PreserVision AREDS) zolpidem 10 mg tablet 10 mg PO QHS 09/27/24 History Allergy/AdvReac Type Severity Reaction Status Date / Time No Known Allergies Allergy Verified 11/04/24 06:15 Family History (Updated 09/27/24 @ 14:13 by Germania Mathur) Sister Diabetes Surgical History History of hysterectomy Previous back surgery Social History (Updated 09/27/24 @ 14:13 by Germania Mathur) Smoking Status: Never smoker alcohol intake: never substance use type: does not use Prior Cardiac Testing/Procedures Prior Cardiac Testing/Procedures: Echocardiogram (The estimated ejection fraction is 60 %. No evidence for diastolic dysfunction. Mild focal mitral valvecalcification. Mild mitral annular calcification. Mild to moderate aortic stenosis. Bubble contrast study is positive for PFO) Review of Systems (Anesthesia) ROS Narrative System reviewed and no additional complaints, except as documented. Physical Exam Const alert, oriented x3 and average body habitus Resp normal respiratory effort, normal air movement and clear to auscultation bilaterally Cardio regular rate, regular rhythm and diaphoretic Cardio Narrative: (+) murmur 11/04/24 0646 <Electronically signed by Man Link MD> Date _ Man Link MD Cosigner Signature: Date CC: ~ Signed [facility] Work Phone: 1(801) 534-137203-13-2025 Procedure note [facility] Medical Records Department [address] [place] [address] Operative Report 11/04/24 0805 MR#: [id number] Acct: [id number] Name: GERMANIA DONIS Rep #:[id number] : 1945 79 From: Shelly Leonard MD PCP: Dr. Sowmya Cabrera MD Status :[facility] Location: [place] [address] Operative Report (Standard) Operative Information Date of Procedure: 11/04/24 Pre-Operative Diagnosis: Umbilical hernia Post-Operative Diagnosis: Same Surgery/Procedure Performed: Umbilical hernia repair with mesh train starter: Yes Marketing Operations Associate: iTmoteo Ruiz Tasks completed by medical billing assistant: Opening & closing Type of Anesthesia: General/Supplemental RN Documented Start/Stop Times: Operation Date: 11/04/24 07:30 Case Time Into Pre-Op 11/04/24 05:40 Out of Pre-Op 11/04/24 07:18 Anesthesia Start 11/04/24 07:25 Into Room 11/04/24 07:25 Procedure Start 11/04/24 07:45 Procedure Start Time: 07:45 Procedure Stop Time: 08:12 Select all DRAINS/GRAFTS/IMPLANTS that apply: Prosthetic device Prosthetic device details: Ventralex ST hernia patch 4.3 cm in diameter, Lot [id number] ref [id number] Special Medications: Ancef 2 g IV x 1 Estimated Blood Loss: < 10 cc Specimen collected: No Description of surgery: Patient was brought into the room placed supine on the operating table. Correctpatient, procedure, site, positioning, special, was verified prior to procedure. General anesthesia was induced. The abdomen was prepped draped in usual sterile fashion. A curvilinear incision was made below the umbilicus with a 15 blade scalpel. This was deepened withelectrocautery. A hemostat was used to go around the stalk of the umbilicus and Metzenbaum scissorswas used to carefully divide the hernia sac from the skin of the umbilicus. The fascia around the hernia defect was cleared and the hernia defect measured 1.4 cm x [address] hernia patch 4.3cm was selected. This was secured laterally at its tails with 0 Nurolon horizontal mattress suture.The hernia defect was closed with a dghlcf-rn-hwhqs 0 Nurolon. The wound was irrigated with saline.Hemostasis was assured. The skin of the umbilicus was secured to the fascia using 3-0 Vicryl sutureinterrupted. The incision was closed with 3-0 Vicryl subdermal interrupted sutures and the skin wasclosed with interrupted 4-0 Monocryl sutures. Steri-Strips and Tegaderm and OpSite were placed overthe incision once sterile cotton balls were placed in the umbilicus. Patient was extubated. Patient tolerated procedure well and was taken to the postanesthesia care unit in stable condition. Surgical Findings: See operative report Complications Complications: No 11/04/2415 Cosigner Signature (if applicable): CC: Dr. Sowmya Cabrera MD; Dr. Shelly Leonard MD~ Signed [facility]03-13-2025 Discharge summary [facility] Medical Records Department [address] [place] [address] Instructions for Home/Discharge Instructions 11/04/2408 MR#: [id number] Acct: [id number] Name: GERMANIA DONIS Rep #:[id number] : 1945 79 From: Shelly Leonard MD PCP: Dr. Sowmya Cabrera MD Status :[facility] Discharge Instructions Diet Discharge Diet: Light diet - advance as tolerated Activity May shower in (days): 5 (Keep umbilical dressing clean dry and intact for 5 days. Okay to tape off with a Ziploc bag to shower. Or lower shower and upper sponge bath.) Lifting Restrictions: no lifting >20 lbs x 2 wks, no strenuous exercise for 4 wks Additional Activity Instructions:: - Dressing / Incision Call your doctor if your incision/area has: Continuous Slow Oozing, Sudden Increased Bleeding, Increased Pain/ Swelling, Increased Redness, Foul Smelling Discharge and Swelling at the incision site Call your doctor if you observe: Fever of 101 or Higher Remove Dressing in: 5 days (After 5 days okay to remove surgical dressing. Place cotton ball or rolled up gauze in bellybutton and retape daily for 2 more days.) Cleanse incision/area with: Do not get Incision Wet (for 5 days) Additional Dressing/Incision Instructions:: Steri-Strips will fall off in 7 to 10 days, if they do not fall off okay to remove after 10 days. Follow Up Care Please Follow Up With: Shelly Leonard MD When: Call the office for a follow-up appointment 2 weeks; after 5 PM and on call [phone] with any concerns. Test Results: Test results from this visit will be discussed in further detail at your follow- up appointment, if applicable. Discharge Plan Admission Attending Provider: Shelly Leonard Primary Care Provider: Sowmya Cabrera Instructions Additional Instructions / Restrictions: Okay to take ibuprofen 400-600 mg PO q6hr PRN and Tylenol 650 to 1000 mg p.o. every 6 hours as needed along with the oxycodone. Take all pain meds with food. Oxycodone can cause constipation recommend taking daily stool softener (i.e. Colace/docusate) whiletaking the pain meds. Recommend starting some MiraLAX in1 to 2 days if no bowel movement. If still no bowel movement the following day recommend taking additional MiraLAX versus magnesium citrate half the bottle andwaiting 4-6 hours if still no results take the other half the bottle. Print Language: South Sudanese Discharge Orders/Prescriptions Prescriptions: New oxycodone 5 mg capsule 5 mg PO Q6H PRN (Reason: pain) 3 Days Qty: 10 0RF Continued levothyroxine 100 mcg capsule 100 mcg PO QDAY atorvastatin 80 mg tablet 80 mg PO QDAY zolpidem 10 mg tablet 10 mg PO QHS baclofen 10 mg tablet 10 mg PO QDAY PreserVision AREDS 4,296 mcg-226 mg-90 mg capsule 1 cap PO BID calcium carbonate 500 mg calcium (1,250 mg) tablet 500 mg PO QDAY Alive Women's 50 Plus Ultra MV 240-150 mcg tablet 1 tab PO DAILY alendronate 35 mg tablet 35 mg PO QWEEK Other Ambulatory Orders: 12 Lead EKG (Routine) Location: None Selected Ordered By: Dr. Tito Dexter Referrals / Follow Up: Sowmya Cabrera MD [Primary Care Provider] - Disposition Disposition (needs filled in before D/C Order can be placed): Home, Self Care 11/04/24 0810Shelly Leonard MD CC: Dr. Sowmya Cabrera MD ~ Signed [facility]03-13-2025 History and physical note [facility] Medical Records Department [address] [place] [address] H&P Exam - Surgical 11/04/24 0717 MR#: [id number] Acct: [id number] Name: GERMANIA DONIS Rep #:[id number] : 1945 79 From: Shelly Leonard MD PCP: Dr. Sowmya Cabrera MD Status :[facility] Location: [place] [address] HPI - General General Date of Service: 11/04/24 HPI Narrative GERMANIA DONIS, is a 79 F who presents for umbilical hernia pair with possible mesh. Patient still been having pain at her umbilicus. Patient states she did have a fever last night but no other symptomsthis morning does not have any fevers or symptoms as well. 09/27/24 HPI HPI: 79-year-old female presents due to umbilical hernia. Patient states she has hadthis for about 10 months had severe discomfort twice more recently. Patient is interested in having it repaired. Patientdenies any abdominal surgeries. [facility] Medical History Wears glasses Wears partial dentures Wears dentures Depression Cervical stenosis of spine Arthritis Low iron High cholesterol Non-smoker Shortness of breath on exertion History of echocardiogram History of stress test Thyroid disease Heart murmur Home Medications ?Medication ?Instructions ?Recorded ?Last Taken ?Type alendronate 35 mg tablet 35 mg PO QWEEK 09/27/2405/19 History atorvastatin 80 mg tablet 80 mg PO QDAY 09/27/2411/03 History baclofen 10 mg tablet 10 mg PO QDAY 09/27/2411/03 History calcium carbonate 500 mg PO QDAY 09/27/2410/23 History levothyroxine 100 mcg capsule 100 mcg PO QDAY 09/27/24 11/03/24 History uqugsmys-iivwhzgi-vnwrp acid 240 1 tab PO DAILY 11/03/24 History mcg-vit K1 150 mcg-herb 357 tablet (Alive Women's 50 Plus Ultra Multivitamin) vitamins A,C,A-sgmh-vqrxwg 4,296 1 cap PO BID 09/27/24 11/03/24 History mcg-226 mg-90 mg capsule (PreserVision AREDS) zolpidem 10 mg tablet 10 mg PO QHS 09/27/24 History Allergy/AdvReac Type Severity Reaction Status Date / Time No Known Allergies Allergy Verified 11/04/24 06:15 Family History (Updated 09/27/24 @ 14:13 by Germania Mathur) Sister Diabetes Surgical History History of hysterectomy Previous back surgery Social History (Updated 09/27/24 @ 14:13 by Germania Mathur) Smoking Status: Never smoker alcohol intake: never substance use type: does not use Vital Signs Vital Signs Vital Signs: 11/04/24 06:19 11/04/24 06:19 11/04/24 06:41 Temperature 98 F 98 F Temperature Source Temporal Pulse Rate 82 82 Respiratory Rate 16 16 Respiratory Pattern Normal Blood Pressure 93/62 93/62 Blood Pressure Mean 72 Blood Pressure Source Monitor Blood Pressure Position Semi-Fowlers Blood Pressure Location Right Arm Pulse Ox 96 96 Oxygen Delivery Method Room Air Room Air Weight Weight: 141 lb 8.588 oz Body Mass Index (BMI) 23.5 Physical Exam Const alert, oriented x3 and no apparent distress HEENT normocephalic and head/scalp atraumatic Resp normal respiratory effort Cardio regular rate GI soft to palpation; Negative for non-distended GI Narrative: Tender at umbilicus, umbilical hernia Palpation: Negative for guarding Extremity no clubbing, cyanosis or edema Skin no rashes or lesions noted Neuro CN's II-XII intact bilaterally Psych mental status grossly normal Assessment & Plan Assessment/Plan (1) Umbilical hernia: PLAN: Plan Plan to do an umbilical hernia repair with possible mesh. Reviewed the procedure with the patient including the risks, including but not limited to infection, bleeding, injury to the small bowel, andrecurrence. Patient no further questions time. Shelly Leonard M.D. Pager: [phone] [facility] [address] [place] [address], Outpatient Pavilion, [address] [place] [address] Office: [phone] 11/04/24 0719 Cosigner Signature (if applicable): CC: Dr. Sowmya Cabrera MD; Dr. Shelly Leonard MD~ Signed [facility]03-13-2025 Consult note [facility] Medical Records Department [address] [place] [address] Pre-Anesthesia Evaluation 11/04/24 0637 MR#: [id number] Acct: [id number] Name: GERMANIA DONIS Rep #:[id number] : 1945 79 From: Man Link MD PCP: Dr. Sowmya Cabrera MD Status :[facility] Y Race: C Location: [place] [address] ASA Classification* ASA Classification ASA Classification: 3 (Thyroid dz, anemia, hx of PFO, HLD) Assessment & Plan Anesthesia* Anesthesia Assessment Anesthesia Assessment: Discussed sedation and/or anesthesia options, risks, benefits, and alternatives with patient/parents/legal guardian/POA. Questions invited. The patient/parents/legal guardian/POA seems to understand and agrees to proceedwith anesthesia plan. Reviewed the physical assessment, medical history, allergy history and patient home medications list prior to surgery/procedure/anesthetic and documented any changes. Performed airway and anesthesia risk assessments. Anesthesia Type Anesthesia Type: General History Source History Obtained from:: Patient and Chart Anesthesia Focused Assessment* Temperature: 98 F Pulse Rate: 82 Blood Pressure: 93/62 Respiratory Rate: 16 Pulse Ox: 96 Oxygen Delivery Method: Room Air Airway Assessment Mouth opens: >3 cm Mallampati Score: III Teeth Condition: Dentures, Lower (partial) and Upper Neck Range of motion (ROM): Full ROM Focused Labs Anesthesia Preop lab: CBC WBC 4.6 K/mm3 (4.4-11.0) 07/20/24 12:37 07/20/24 RBC 4.24 M/mm3 (4.2-5.4) 07/20/24 12:37 07/20/24 Hgb 12.8 g/dL (12.0-15.0) 07/20/24 12:37 07/20/24 Hct 39.4 % (37-47) 07/20/24 12:37 07/20/24 Plt Count 216 K/mm3 (150-450) 07/20/24 12:37 07/20/24 CHEMISTRY Potassium 3.7 mmol/L (3.5-5.1) 07/20/24 12:37 07/20/24 Sodium 141 mmol/L (136-145) 07/20/24 12:37 07/20/24 Magnesium 2.2 mg/dL (1.6-2.6) 07/20/24 12:37 07/20/24 BUN 15 mg/dL (7-18) 07/20/24 12:37 07/20/24 Creatinine 0.68 mg/dL (0.55-1.02) 07/20/24 12:37 07/20/24 Glucose 91 mg/dL (74-106) 07/20/24 12:37 07/20/24 TSH 2.500 uIU/mL (0.300-4.200) 10/28/24 14:18 03/02/16 COAG Pre-Assessment Diagnosis/Proposed Procedure Planned Operative Procedure(s): Hernia,Open Incisional Repair w/ poss Mesh Anesthesia History Anesthesia History - prosthetic assistant: Anesthesia History - prosthetic assistant Hx Hospitalization No 10/21/24 10:11 Any Problems With Anesthesia No 10/21/24 10:11 Cholinesterase deficiency No 10/21/24 10:11 You/Your Family Experience No 10/21/24 10:11 fever (hyperthermia) with Relationship Recent Exposure to Contagious No 11/04/24 06:19 Disease Does patient have nerve No 10/21/24 10:11 stimulator Patient instructed to have device shut off --Does patient have Pacemaker No 11/04/24 06:19 or ICD? When Was Last Pacemaker Check QUESTION #4 FULL TEXT: You/Your Family Experience fever (hyperthermia) with Anesthesia Last Oral Intake Last Oral intake: Last Oral Intake NPO since 21:00 11/04/24 06:19 Meds taken in AM with sips of No 11/04/24 06:19 water? Meds patient instructed to take am of surgery PONV PONV - prosthetic assistant: PONV - prosthetic assistant Female Yes 10/21/24 10:11 HX of Motion Sickness No 10/21/24 10:11 HX of N/V After Surgery No 10/21/24 10:11 Non-Smoker Yes 10/21/24 10:11 Duration of Surgery greater Yes 10/21/24 10:11 than 60 minutes Number of Risk Factors 3 10/21/24 10:11 PONV Score Moderate Risk 10/21/24 10:11 Height & Weight Height & Weight: Anesthesia: Height & Weight Height 5 ft 5 in 11/04/24 06:19 Weight: 64.2 kg 11/04/24 06:19 Body Mass Index (BMI) 23.5 11/04/24 06:19 Respiratory Assessment Respiratory Assessment - prosthetic assistant: Respiratory Tract Infection Hx - prosthetic assistant Hx Respiratory Tract Infection No 10/21/24 10:11 STOP Sleep Apnea STOP Sleep Apnea - prosthetic assistant: STOP Sleep Apnea - prosthetic assistant Hx Hypertension No 10/21/24 10:11 Hx Sleep Apnea No 10/21/24 10:11 CPAP BIPAP Do you snore loudly (louder No 10/21/24 10:11 than talking or can be heard Do you often feel tired/ No 10/21/24 10:11 fatigued/ sleepy during daytime? Has anyone observed you stop No 10/21/24 10:11 breathing during sleep? STOP Results Negative 10/21/24 10:11 QUESTION #5 FULL TEXT : Do you snore loudly (louder than talking or can be heard through closeddoors)? 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 Specify any problems Hx of Preganancy in last 3 N/A 10/21/24 10:11 Months Nurse Filling Out Transfusion NBUCHER 10/21/24 10:11 & Questions: Date: 10/21/24 10/21/24 10:11 Time: 10:11 10/21/24 10:11 Patient unable to answer at this time (ie. confused, unrespo /Reproduction History /Reproductive History - prosthetic assistant: /Reproductive Hx- prosthetic assistant Hx Now No 10/21/24 10:11 Gestational Age (in weeks): EDC: Hx Hx Para Hx Section SAB No 10/21/24 10:11 Active Medications Active Medications: Current Medications Generic Name Dose Route Start Last Admin Trade Name Donna PRN Reason Stop Dose Admin Cefazolin Sodium 2 gm/ N/A 20 mls @ 400 mls/hr 11/04/24 07:30 IV 11/04/24 07:32 PREOP ONE Sodium Chloride 1,000 mls @ 15 mls/hr 11/04/24 06:00 11/04/24 06:26 IV 11/09/24 19:19 15 mls/hr .Q48H ESTEPHANIE Administration Protocol [facility] Medical History Wears glasses Wears partial dentures Wears dentures Depression Cervical stenosis of spine Arthritis Low iron High cholesterol Non-smoker Shortness of breath on exertion History of echocardiogram History of stress test Thyroid disease Heart murmur Home Medications ?Medication ?Instructions ?Recorded ?Last Taken ?Type alendronate 35 mg tablet 35 mg PO QWEEK 09/27/2405/19 History atorvastatin 80 mg tablet 80 mg PO QDAY 09/27/2411/03 History baclofen 10 mg tablet 10 mg PO QDAY 09/27/2411/03 History calcium carbonate 500 mg PO QDAY 09/27/2410/23 History levothyroxine 100 mcg capsule 100 mcg PO QDAY 09/27/24 11/03/24 History svyhnbgg-dcwoniwj-xravu acid 240 1 tab PO DAILY 11/03/24 History mcg-vit K1 150 mcg-herb 357 tablet (Alive Women's 50 Plus Ultra Multivitamin) vitamins A,C,L-oass-exbfzx 4,296 1 cap PO BID 09/27/24 11/03/24 History mcg-226 mg-90 mg capsule (PreserVision AREDS) zolpidem 10 mg tablet 10 mg PO QHS 09/27/24 History Allergy/AdvReac Type Severity Reaction Status Date / Time No Known Allergies Allergy Verified 11/04/24 06:15 Family History (Updated 09/27/24 @ 14:13 by Germania Mathur) Sister Diabetes Surgical History History of hysterectomy Previous back surgery Social History (Updated 09/27/24 @ 14:13 by Germania Mathur) Smoking Status: Never smoker alcohol intake: never substance use type: does not use Prior Cardiac Testing/Procedures Prior Cardiac Testing/Procedures: Echocardiogram (The estimated ejection fraction is 60 %. No evidence for diastolic dysfunction. Mild focal mitral valvecalcification. Mild mitral annular calcification. Mild to moderate aortic stenosis. Bubble contrast study is positive for PFO) Review of Systems (Anesthesia) ROS Narrative System reviewed and no additional complaints, except as documented. Physical Exam Const alert, oriented x3 and average body habitus Resp normal respiratory effort, normal air movement and clear to auscultation bilaterally Cardio regular rate, regular rhythm and diaphoretic Cardio Narrative: (+) murmur 11/04/24 0646 > Date _ Man Link MD Cosigner Signature: Date CC: ~ Signed [facility]02-03-2025 Evaluation note* Diagnosis Onset Date Resolution Status Admit Date Umbilical hernia acute September 27, 2024 1:58pm Umbilical hernia acute November 042024 5:26am [facility] Work Phone: 1(490) 420-616002-03-2025 Evaluation note* Diagnosis Onset Date Resolution Status Admit Date Umbilical hernia resolved September 27, 2024 1:58pm Umbilical hernia resolved November 042024 5:26am S/P umbilical hernia repair, follow-up exam acute November 19, 2024 9:54am Abdominal pain, acute acute Apr 2024 12:22pm Intra-abdominal abscess acute A pril 2024 12:22pm Perforated small intestine acute December 04, 2024 12:22pm Pneumoperitoneum acute December 042024 12:22pm [facility] Work Phone: [phone]) 985-791502-03-2025 Evaluation note* Diagnosis Onset Date Resolution Status Admit Date Umbilical hernia resolved September 27, 2024 1:58pm Umbilical hernia resolved November 042024 5:26am S/P umbilical hernia repair, follow-up exam acute November 19, 2024 9:54am Abdominal pain, acute acute Nov 2:29pm Intra-abdominal abscess acute A 2024 2:29pm Perforated small intestine acute December 04, 2024 2:29pm Pneumoperitoneum acute December 042024 2:29pm [facility] Work Phone: [phone]) 892-272002-03-2025 Evaluation note* Diagnosis Onset Date Resolution Status Admit Date Umbilical hernia resolved September 27, 2024 1:58pm Umbilical hernia resolved November 042024 5:26am S/P umbilical hernia repair, follow-up exam acute November 19, 2024 9:54am Abdominal pain, acute resolved Nov 2:29pm Intra-abdominal abscess resolved A 2024 2:29pm Perforated small intestine resolved December 04, 2024 2:29pm Pneumoperitoneum resolved December 042024 2:29pm S/P small bowel resection acute December 20, 2024 9:56am [facility] Work Phone: 1(408) 164-510910-02-2024 Consult note Author Man Link [facility] Note Date/Time November 04, 2024 11: 23am [facility] Medical Records Department [address] [place] [id number] Anesthesia Postop Eval II 11/04/24 1122 MR#: [id number] Acct: [id number] Name: GERMANIA DONIS Rep #:[id number] : 1945 79 From: Man Link MD PCP: Dr. Sowmya Cabrera MD Status :[facility] Y Race: C Location: [facility] Anesthesia Postop Eval I Sum Postop Eval Completion status Anesthesia document: Postop Eval 1 completed: Yes Anesthesia Postop Eval I Summary Anesthesia Postop Eval I Summary: Anesthesia Postop Eval I: Assessment Summary Airway patent Yes 11/04/24 09:40 [email or web address] Spontaneous unlabored Yes 11/04/24 09:40 JUNIOR [email or web address] respirations Mental status nausea No 11/04/24 09:40 JUNIOR [email or web address] Vomiting No 11/04/24 09:40 JUNIOR [email or web address] Anesthesia Postop Eval I: Fluid Summary Crystalloid volume administer 1,000 11/04/24 09:40 JUNIOR [email or web address] (ml) Colloids volume administered ( ml) Blood Product volume administered (ml) Total IV fluid infused 1,000 11/04/24 09:40 JUNIOR [email or web address] Anesthesia Postop Eval I: Summary Notes Anesthesia Complication No 11/04/24 09:40 JUNIOR [email or web address] Anesthesia Complication Comment: Post-operative progress note Anesthesia: Postop Eval II Evaluation Mental status: Awake Pain Level: 0 nausea: No Vomiting: No Complications Anesthesia Complication: No 11/04/24 1123 <Electronically signed by Man Link MD> Date _ Man Link MD Cosigner Signature: Date CC: ~ Signed [facility] Work Phone: 1(211) 452-749606-02-2023 Discharge summary Author Sary Mejia [facility] January 24, 2023 9:56am Note Date/Time January 24, 2023 9:56a m [facility] Physical Therapy Health[address] [place] [address] / REHABILITATION SERVICES DISCHARGE SUMMARY MR#: [id number] Acct: [id number] Name: GERMANIA DONIS Rep #: [id number] : 1945 77 From: Sary Mejia PT, Cert. MDT Referring Dr.: Dr. Mann Cabrera MD Statu s: REG RCR Insurance: MEDICARE PART A B [facility] It has been my pleasure to treat GERMANIA DONIS referred by Dr. Mann Cabrera MD, with the diagnosis of LUMBAR DDD for a total of 8 visit(s). Discharge Date: Please see the following information for a summary of their discharge status. Subjective: I DON'T HAVE BURNING BACK LIKE I DID. SOME L LOW BACK PAIN RIGHT NOW BUT NO PAIN YESTERDAY. PATIENT STATES SHE FEELS LIKE SHE CAN MANAGE IT FROM HERE. LB Pain Intensity (Out of 10): 1 % Improvement: 75 Objective/Function: PATIENT WAS SEEN TODAY FOR RE-ASSESSMENT OF PROGRESS TOWARD THE SET PT GOALS AND THE NEED FOR FURTHER PHYSICAL THERAPY VS READINESS FOR DISCHARGE. ALL GOALS HAVE BEEN MET AND PATIENT IS APPROPRIATE FOR AND AGREEABLETO D/C. UPON EXAM TODAY: Motor deficit: JERALD LE'S GROSSLY 5/5 WITH MMT'ING EXCEPT JERALD HIPS 4/5 AND TESTING OF R HIP FLEXION PROVOKES INCREASED MILD L LB PAIN. Reflexes: JERALD QUADS 1/2, JERALD ACHILLES 2/2. Dural Signs: NEGATIVE JERALD LE'S. Lumbar mvmt loss: flex - NIL. ext - MOD TO PORTIA. R SG - MIN. L SG -MIN. PATIENT DENIES INCREASED LBP WITH LUMBAR ROM TESTING ALL PLANES TODAY. Palpation: NO ACUTE LUMBAR OR HIP TENDERNESS. [ End ] Goal 1:: DECREASE C/O LOW BACK PAIN Goal Progress: Goal Met Goal 2:: IMPROVE LIFTING, SITTING, TRAVEL AND HOMEMAKING FUNCTION Goal Progress: Goal Met Goal 3:: INSTRUCT IN PROPHYLAXIS Goal Progress: Goal Met Plan: D/C. PATIENT AGREEABLE If there are questions or concerns regarding this patient's physical therapy, please feel free to call me at [phone]. Thank you for the referral of thispatient. Sincerely, Sary Mejia PT, Cert MDT Balance/Gait/Functional tests - Balance/Special Test Scores Oswestry Low Back Score: 3 <Electronically signed by Sary Mejia PT, Cert. MDT> 01/24/23 0956 CC: Dr. Mann Cabrera MD ~ ALBARO Signed [facility] Work Phone: Consult note [facility] Medical Records Department [address] [place] [address] Anesthesia Postop Eval II 11/04/24 1122 MR#: [id number] Acct: [id number] Name: GERMANIA DONIS Rep #:[id number] : 1945 79 From: Man Link MD PCP: Dr. Sowmya Cabrera MD Status :DEP [facility] Y Race: C Location: [facility] Anesthesia Postop Eval I Sum Postop Eval Completion status Anesthesia document: Postop Eval 1 completed: Yes Anesthesia Postop Eval I Summary Anesthesia Postop Eval I Summary: Anesthesia Postop Eval I: Assessment Summary Airway patent Yes 11/04/24 09:40 JUNIOR [email or web address] Spontaneous unlabored Yes 11/04/24 09:40 JUNIOR [email or web address] respirations Mental status nausea No 11/04/24 09:40 JUNIOR [email or web address] Vomiting No 11/04/24 09:40 JUNIOR [email or web address] Anesthesia Postop Eval I: Fluid Summary Crystalloid volume administer 1,000 11/04/24 09:40 JUNIOR [email or web address] (ml) Colloids volume administered ( ml) Blood Product volume administered (ml) Total IV fluid infused 1,000 11/04/24 09:40 JUNIOR [email or web address] Anesthesia Postop Eval I: Summary Notes Anesthesia Complication No 11/04/24 09:40 JUNIOR [email or web address] Anesthesia Complication Comment: Post-operative progress note Anesthesia: Postop Eval II Evaluation Mental status: Awake Pain Level: 0 nausea: No Vomiting: No Complications Anesthesia Complication: No 11/04/24 1123 MD> Date _ Man Link MD Cosigner Signature: Date CC: ~ [facility]igned [facility] assessment information available [facility] Work Phone: History and physical note Author Darrick Light [facility] Note Date/Time December 04, 2024 11: 41am [facility] Medical Records Department [address] [place] [address] History & Physical Exam 12/04/24 1125 MR#: [id number] Acct: [id number] Name: GERMANIA DONIS Osmel Rep #:[id number] : 1945 79 From: Darrick Lara PCP: Dr. Sowmya Cabrera MD Status :REG ER Location: ED HPI - General General Date of Admission: 12/04/24 Chief Complaint: Acute onset abdominal pain and anorexia HPI Narrative GERMANIA DONIS, is a 79 F who presents with her to [facility] due to complaints of acute onset abdominal pain in the periumbilical region that began 3 days ago and has persisted. Patient reports some low-grade fevers and night sweats as well as anorexia along with this pain. However she denies any nausea, vomiting, or diarrhea. She denies any change to her diet, generally-speaking, but does confess she has not been able to eat the last couple of days due to the lack of appetite. Patient's ER workup is notable for CBC with differential that demonstrates a mild left shift but no leukocytosis. CT imaging of the abdomen pelvis was performed showing probable small bowel perforation with several foci of pneumoperitoneum. According to emergency medicine radiology discussed the possibility of a closed- loop obstruction, but this is not reflected in their impression. Interestingly, patient just underwent open umbilical hernia repair with mesh by Dr. Leonard on 11/04/2024. She reports an uneventful procedure and uneventful recovery. This represents her only abdominal surgery apart from a tubal ligation procedure approximately 40 years ago. [facility] Medical History Umbilical hernia Wears glasses Wears partial dentures Wears dentures Depression Cervical stenosis of spine Arthritis Low iron High cholesterol Non-smoker Shortness of breath on exertion History of echocardiogram History of stress test Thyroid disease Heart murmur Home Medications ?Medication ?Instructions ?Recorded ?Last Taken ?Type alendronate 35 mg tablet 35 mg PO QWEEK 09/27/2405/19 History atorvastatin 80 mg tablet 80 mg PO QDAY 09/27/2411/03 History baclofen 10 mg tablet 10 mg PO QDAY 09/27/2411/03 History calcium carbonate 500 mg PO QDAY 09/27/2410/23 History levothyroxine 100 mcg capsule 100 mcg PO QDAY 09/27/24 11/03/24 History mqemudkb-acyshcse-ghvcm acid 240 1 tab PO DAILY 11/03/24 History mcg-vit K1 150 mcg-herb 357 tablet (Alive Women's 50 Plus Ultra Multivitamin) vitamins A,C,G-wrzh-cfmbvp 4,296 1 cap PO BID 09/27/24 11/03/24 History mcg-226 mg-90 mg capsule (PreserVision AREDS) zolpidem 10 mg tablet 10 mg PO QHS 09/27/24 History Allergy/AdvReac Type Severity Reaction Status Date / Time No Known Allergies Allergy Verified 12/04/24 07:33 Family History Sister Diabetes Surgical History S/P umbilical hernia repair, follow-up exam History of hysterectomy Previous back surgery Social History Smoking Status: Never smoker alcohol intake: never substance use type: does not use Vital Signs Vital Signs Vital Signs: 12/04/24 07:33 12/04/24 09:32 12/04/24 11:00 Temperature 98.9 F Temperature Source Oral Pulse Rate 89 82 82 Respiratory Rate 18 18 18 Blood Pressure 108/66 140/62 H Blood Pressure Mean 80 88 Pulse Ox 97 96 96 Oxygen Delivery Method Room Air Weight Weight: 145 lb Body Mass Index (BMI) 26.5 Physical Exam Const alert, oriented x3 and well nourished General Appearance: cooperative Resp normal respiratory effort GI GI Narrative: Well-healed curvilinear infraumbilical incision without evidence of recurrent hernia. Nondistended, soft, nontender to palpation of the right abdominal quadrants. Focally tender of the left mid abdomen with palpation. Involuntary guarding present. Results Lab / Micro Data 12/04/24 08:04 12/04/24 08:04 Labs: Laboratory Results - last 24 hr 12/04/24 08:04: WBC 7.4, RBC 4.11 L, Hgb 12.2, Hct 37.1, MCV 90.3, MCH 29.7, MCHC 32.9, RDW Std Deviation 46.5 H, RDW Coeff of Zia 14.0, Plt Count 182, MPV 10.9, Immature Gran % (Auto) 0.400, Neut % (Auto) 83.2 H, Lymph % (Auto) 9.5 L, Branch % (Auto) 6.5, Eos % (Auto) 0.3, Baso % (Auto) 0.1, Absolute Neuts (auto) 6.2, Absolute Lymphs (auto) 0.71 L, Nucleated RBC % 0, Sodium 135, Potassium 4.5, Chloride 101, Carbon Dioxide 24.3, Anion Gap 10, BUN 17, Creatinine 0.72, Estim Creat Clear Calc 52.40, Est GFR (MDRD) Non-Af 86, BUN/Creatinine Ratio 23.5 H, Glucose 98, Calcium 9.0, Total Bilirubin 0.59, Direct Bilirubin 0.28, AST 39 H, ALT 32, Alkaline Phosphatase 110 H, Total Protein 6.9, Albumin 3.5, Globulin 3.4, Lipase 31 12/04/24 08:25: Urine Color Yellow, Urine Clarity Sl. Cloudy, Urine pH 6.0, Ur Specific [place] 1.010, Urine Protein 15 H, Urine Glucose (UA) Normal, Urine Ketones 15 H, Urine Occult Blood Negative, Urine Nitrite Negative, Urine Bilirubin Negative, Urine Urobilinogen Normal, Ur Leukocyte Esterase 25 H, UrineRBC 0 SEEN, Urine WBC 0-5 SEEN, Ur Squamous Epith Cells 0-5 SEEN, Urine Bacteria1+, Urine Mucus RARE Imaging Radiology Impression Abdomen/Pelvis CT 12/04/24 09:30 IMPRESSION: 1. Dilation of a central small bowel loop with focal rim enhancing intraperitoneal mass which appears in continuity with the small bowel loop, most compatible with small bowel perforation and abscess. Surgical consultation recommended. 2. Punctate free air along the dependent margin of the caudate lobe, compatible with pneumoperitoneum. 3. Severe distal colonic diverticulosis. Findings were discussed by Dr. Stevens with Dr. Naranjo via telephone at 10:34 a.m. on 12/04/2024. Reading Location: [id number] Assessment & Plan Assessment/Plan (1) Perforated small intestine: PLAN: Patient is 79-year-old female who presents with signs and symptoms of small bowel perforation for unknown etiology. She has no prior abdominal surgical history. It is possible this represents perforation of a isolated small bowel diverticulum. Suspected timing of perforation is approximately 48 to 72 hours ago based on her symptoms. Yet she remains remarkably well?appearing is certainly nontoxic. In fact, she does not even display true leukocytosis and her peritonitis is exceptionally localized. Despite these favorable signs, patient does have evidence of pneumoperitoneum and I have recommended emergent exploration via diagnostic laparoscopy. I have also advised her and her that I would be looking to perform a segmental smallbowel resection with 3 anastomosis and probable drain placement. They expressedsurprise over this information given patient's mild experience with symptoms to date but also confirm readiness to accept my recommendations. Empiric antibiotic coverage has been administered by emergency medicine both operative team and anesthesia are notified of intent to proceed emergently to the OR. Patient will be consented for diagnostic laparoscopy with small bowel resection,reanastomosis and probable drain placement as well as all procedures as indicated. [facility] to monitorfor pain control and advancement of the diet. Darrick Light MD General Surgery Endocrine Surgery Pager: [facility] [address] [place] [address], [facility], [address] [place] [address] Office: [phone] (2) Pneumoperitoneum: Charges/Coding Visit Charges Inpatient E&M: 70279 Init Hosp L2 12/04/24 1141 <Electronically signed by Darrick Light MD> Cosigner Signature (if applicable): CC: Dr. Sowmya Cabrera MD; Dr. Darrick Light MD~ Signed [facility] Work Phone: Reason for referral (narrative)No reason for referral information [facility] Work Phone: Summary Purpose Family History No Family History Records Found Relationship Condition Age at Onset Recorded Date/T josey sister Diabetes mellitus Unknown Advance Directives No Advanced Directives Records Found Advance Directive Response Recorded Date/ Time Living Will Yes October 21 11:11am Power of Quotation Checker Yes October 21, 2024 11:11am Name of Medical Power of Quotation Checker October 21, 2024 11:11am Advance Directive Response Recorded Date/ Time Living Will No December 04, 2024 7:55am Do you have a Healthcare Power of Quotation Checker? No December 04, 2024 7:55am Living Will Yes February 27th, 2 025 11:11am Do you have a Healthcare Power of Quotation Checker? Yes October 21, 2024 11:11am Name of Medical Power of Quotation Checker October 21, 2024 11:11am Advance Directive Response Recorded Date/ Time Living Will No December 04, 2024 3:59pm Do you have a Healthcare Power of Quotation Checker? No December 04, 2024 3:59pm Living Will Yes October 21 11:11am Do you have a Healthcare Power of Quotation Checker? Yes October 21, 2024 11:11am Name of Medical Power of Quotation Checker October 21, 2024 11:11am Chief Complaint and Reason for Visit Chief Complaint MURMUR Chief Complaint EORDER FOR LABS AND LUMBAR SPINE XRAY Chief Complaint EORDER FOR LABS AND LUMBAR SPINE XRAY POSTMENOPAUSAL, SCREENING LUMBAR DDD/RX HERE Chief Complaint Admit Date pain, bilateral shoulder pain/ LABS AND XRAY July 20, 2024 12:34pm BILATERAL SHOULDER PAIN. RX HERE Decembe r 2023 11:30am UMBILICAL HERNIA September 27, 2024 1 :58pm DDD ON XRAY, PERSISTANT PARESTHESIAS INT O L ARM October 04, 2024 8:59am Hernia,Open Incisional Repair w/ poss Me November 04, 2024 5:26am Hernia,Open Incisional Repair w/ poss Me November 04, 2024 7:17am Reason for Visit Admit Date Umbilical hernia September 27, 2024 1 :58pm Umbilical hernia November 04, 2024 5:2 6am Chief Complaint Admit Date BILATERAL SHOULDER PAIN. RX HERE Decembe r 2023 11:30am UMBILICAL HERNIA September 27, 2024 1 :58pm DDD ON XRAY, PERSISTANT PARESTHESIAS INT O L ARM October 04, 2024 8:59am Hernia,Open Incisional Repair w/ poss Me November 04, 2024 5:26am Hernia,Open Incisional Repair w/ poss Me November 04, 2024 7:17am HERNIA 3-13 November 19, 2024 9:5 4am abd pain December 04, 2024 11: 25am SMALL BOWEL PERFORATION December 04, 2024 12:22pm Reason for Visit Admit Date Umbilical hernia September 27, 2024 1 :58pm Umbilical hernia November 04, 2024 5:2 6am S/P umbilical hernia repair, follow-up e xam November 19, 2024 9:54am Abdominal pain, acute December 04, 2024 1 2:22pm Intra-abdominal abscess December 04, 2024 12:22pm Perforated small intestine December 04, 2 025 12:22pm Pneumoperitoneum December 04, 2024 12: 22pm Chief Complaint Admit Date BILATERAL SHOULDER PAIN. RX HERE Decembe r 2023 11:30am UMBILICAL HERNIA September 27, 2024 1 :58pm DDD ON XRAY, PERSISTANT PARESTHESIAS INT O L ARM October 04, 2024 8:59am Hernia,Open Incisional Repair w/ poss Me sh November 04, 2024 5:26am Hernia,Open Incisional Repair w/ poss Me sh November 04, 2024 7:17am HERNIA -November 19, 2024 9:5 4am abd pain December 04, 2024 11: 25am SMALL BOWEL PERFORATION December 04, 2024 2:29pm SMALL BOWEL PERFORATION December 05, 2024 8:21am SMALL BOWEL PERFORATION December 06, 2024 8:38am SMALL BOWEL PERFORATION December 07, 2024 8:46am Reason for Visit Admit Date Umbilical hernia September 27, 2024 1 :58pm Umbilical hernia November 04, 2024 5:2 6am S/P umbilical hernia repair, follow-up e xam November 19, 2024 9:54am Abdominal pain, acute December 04, 2024 2 :29pm Intra-abdominal abscess December 04, 2024 2:29pm Perforated small intestine December 04, 2 025 2:29pm Pneumoperitoneum December 04, 2024 2:2 9pm Chief Complaint Admit Date UMBILICAL HERNIA September 27, 2024 1 :58pm DDD ON XRAY, PERSISTANT PARESTHESIAS INT O L ARM October 04, 2024 8:59am Hernia,Open Incisional Repair w/ poss Me sh November 04, 2024 5:26am Hernia,Open Incisional Repair w/ poss Me sh November 04, 2024 7:17am HERNIA 3-November 19, 2024 9:5 4am abd pain December 04, 2024 11: 25am SMALL BOWEL PERFORATION December 04, 2024 2:29pm SMALL BOWEL PERFORATION December 05, 2024 8:21am SMALL BOWEL PERFORATION December 06, 2024 8:38am SMALL BOWEL PERFORATION December 07, 2024 8:46am small bowel resection DOS 12/04 9:56am Reason for Visit Admit Date Umbilical hernia September 27, 2024 1 :58pm Umbilical hernia November 04, 2024 5:2 6am S/P umbilical hernia repair, follow-up e xam November 19, 2024 9:54am Abdominal pain, acute December 04, 2024 2 :29pm Intra-abdominal abscess December 04, 2024 2:29pm Perforated small intestine December 04, 025 2:29pm Pneumoperitoneum December 04, 2024 2:2 9pm S/P small bowel resection December 20 9:56am Additional Source Comments INFORMATION SOURCE (unrecogn ized section and content) DATE CREATED AUTHOR 02/16/2018 [facility] DATE CREATED AUTHOR AUTHOR'S ORGANIZ ATION 09/03/2021 [facility] DATE CREATED AUTHOR AUTHOR'S ORGANIZ ATION 01/06/2025 [facility] Goals (unrecognized section and content) Goals may be documented in a n alternate sectionGoals may be documented in an alternate sectionGoals may be documented in an alternate sectionGoals may be documented in an alternate sectionGoals may be documented in an alternate sectionGoals may be documented in an alternate sectionGoals may be documented in an alternate sectionGoals may be documented in an alternate sectionGoals may be documented in an alternate section Care Teams (unrecognized sec tion and content) Team Status: Active Member Role Status Dates Dr. Sowmya Cabrera MD Primary Care Provider Acti ve Team Status: Inactive Member Role Status Dates Dr. Sowmya Cabrera MD Primary Care Provider Acti ve Start: September 27, 2024 End: September 27, 2024 Dr. Sowmya Cabrera MD Referring Provider Active Start: September 27, 2024 End: September 27, 2024 Dr. Shelly Leonard MD Attending Provider Active Start: September 27, 2024 End: September 27, 2024 Team Status: Inactive Member Role Status Dates Dr. Sowmya Cabrera MD Primary Care Provider Acti ve Start: October 04, 2024 End: October 04, 2024 Dr. Sowmya Cabrera MD Attending Provider Active Start: October 04, 2024 End: October 04, 2024 Dr. Sowmya Cabrera MD Referring Provider Active Start: October 04, 2024 End: October 04, 2024 Team Status: Inactive Member Role Status Dates Dr. Sowmya Cabrera MD Primary Care Provider Acti ve Start: November 04, 2024 End: November 04, 2024 Dr. Shelly Leonard MD Attending Provider Active Start: November 04, 2024 End: November 04, 2024 Dr. Shelly Leonard MD Referring Provider Active Start: November 04, 2024 End: November 04, 2024 Team Status: Active Member Role Status Dates Dr. Sowmya Cabrera MD Primary Care Provider Acti ve Start: November 04, 2024 Dr. Shelly Leonard MD Attending Provider Active Start: November 04, 2024 Dr. Shelly Leonard MD Referring Provider Active Start: November 04, 2024 Dr. Shelly Leonard MD Other Provider Active S tart: November 04, 2024 Team Status: Inactive Member Role Status Dates Dr. Sowmya Cabrera MD Primary Care Provider Acti ve Start: November 19, 2024 End: November 19, 2024 Dr. Sowmya Cabrera MD Referring Provider Active Start: November 19, 2024 End: November 19, 2024 Dr. Shelly Leonard MD Attending Provider Active Start: November 19, 2024 End: November 19, 2024 Team Status: Active Member Role Status Dates Dr. Sowmya Cabrera MD Primary Care Provider Acti ve Start: December 04, 2024 Dr. Pardeep Naranjo DO Emergency Provider Active Start: December 04, 2024 Dr. Darrick Light MD Attending Provider Active Start: December 04, 2024 Team Status: Inactive Member Role Status Dates Dr. oSwmya Cabrera MD Primary Care Provider Acti ve Start: December 04, 2024 End: December 07, 2024 Dr. Pardeep Naranjo DO Emergency Provider Active Start: December 04, 2024 End: December 07, 2024 Dr. Darrick Light MD Admit Provider Active Sta rt: December 04, 2024 End: December 07, 2024 Dr. Darrick Light MD Attending Provider Active Start: December 04, 2024 End: December 07, 2024 Team Status: Active Member Role Status Dates Dr. Sowmya Cabrera MD Primary Care Provider Acti ve Start: December 05, 2024 Dr. Pardeep Naranjo DO Emergency Provider Active Start: December 05, 2024 Dr. Darrick Light MD Admit Provider Active Sta rt: December 05, 2024 Dr. Darrick Light MD Attending Provider Active Start: December 05, 2024 Dr. Darrick Light MD Other Provider Active Sta rt: December 05, 2024 Team Status: Active Member Role Status Dates Dr. Sowmya Cabrera MD Primary Care Provider Acti ve Start: December 06, 2024 Dr. Pardeep Naranjo DO Emergency Provider Active Start: December 06, 2024 Dr. Darrick Light MD Admit Provider Active Sta rt: December 06, 2024 Dr. Darrick Light MD Other Provider Active Sta rt: December 06, 2024 Eleonora DUONG PA-C Attending Provider Active Start: December 06, 2024 Team Status: Active Member Role Status Dates Dr. Sowmya Cabrera MD Primary Care Provider Acti ve Start: December 07, 2024 Dr. Pardeep Naranjo DO Emergency Provider Active Start: December 07, 2024 Dr. Darrick Light MD Admit Provider Active Sta rt: December 07, 2024 Dr. Darrick Light MD Other Provider Active Sta rt: December 07, 2024 Eleonora DUONG PA-C Attending Provider Active Start: December 07, 2024 Team Status: Inactive Member Role Status Dates Dr. Sowmya Cabrera MD Primary Care Provider Acti ve Start: December 20, 2024 End: December 20, 2024 Dr. Sowmya Cabrera MD Referring Provider Active Start: December 20, 2024 End: December 20, 2024 Dr. Darrick Light MD Attending Provider Active Start: December 20, 2024 End: December 20, 2024 Team Status: Active Member Role Status Dates Dr. Sowmya Cabrera MD Primary Care Provider Acti ve Start: August 12, 2024 Lex Rhoades MD Attending Provider Active Start : August 12, 2024 Team Status: Active Member Role Status Dates Dr. Mann Cabrera MD Family Provider Active Dr. Mann Cabrera MD Primary Care Provider Activ e Team Status: Inactive Member Role Status Dates Dr. Mann Cabrera MD Primary Care Provider, Attending Provider, Referring Provider Active Team Status: Inactive Member Role Status Dates Dr. Mann Cabrera MD Primary Care Provider, Atte nding Provider Active Team Status: Inactive Member Role Status Dates Dr. Sowmya Cabrera MD Primary Care Provider Acti ve Start: July 20, 2024 End: July 20, 2024 Dr. Sowmya Cabrera MD Attending Provider Active Start: July 20, 2024 End: July 20, 2024 Dr. Sowmya Cabrera MD Referring Provider Active Start: July 20, 2024 End: July 20, 2024 FOR RECORDS PERTAINING TO PATIENTS WHO ARE [...] BE BASED ON THE PRIMARY CLINICAL RECORDS. [facility] [email or web address] provides no warranty or guarantee of the accuracy or completeness of information in this document.
[2025-01-28 23:15] LABS: Absolute Lymphocyte Count 1.26 X10^3/uL (0.83-4.51); Absolute Neutrophil Count 5.1 X10^3/uL (2.0-7.7); Basophil# 0.02 X10^3/uL; Basophil% 0.3 % (0-1); Eosinophil# 0.07 X10^3/uL; Hematocrit 37.8 % (37-47); Hemoglobin 12.2 g/dL (12.0-15.0); Lymphocyte # 1.26 X10^3/ul (0.83-4.51); Lymphocyte % 17.9 % (19-41); Mean Corp Hgb Conc 32.3 g/dL (32-36); Mean Corpuscular Hgb 29.1 pg (27.0-32.0); Mean Corpuscular Volume 90.2 fL (81-99); Monocyte# 0.54 X10^3/uL; Monocyte% 7.7 % (0-10); NRBC Flagged by Analyzer 0 % (0-5); Neutrophil # 5.13 X10^3/uL (2.7-7.7); Neutrophil % 72.8 % (47-70); Platelet Count 180 K/mm3 (150-450); RBC Distribution Width SD 46.2 fl (35.1-43.9); Red Blood Count 4.19 M/mm3 (4.2-5.4)
--- NOTE | 2025-01-28 23:24 | CT_ITS ---
PROCEDURE: ABDOMEN/PELVIS W IV CONT ONLY 01/28/2025 REASON FOR EXAM: EPIGASTRIC PAIN TECHNIQUE: Abdomen and pelvis CT with intravenous contrast. Coronal and Sagittal reconstruction series were provided. One or more dose reduction techniques were used (e.g., Automated exposure control, adjustment of the mA and/or kV according to patient size, use of iterative reconstruction technique. COMPARISON: December 04, 2024 FINDINGS: Subtle ground-glass opacity at the medial right lung base, potentially atelectasis. Liver, spleen, pancreas and adrenal glands are intact. Gallbladder is satisfactory. No significant biliary ductal dilation. Kidneys enhance symmetrically. No suspicious renal mass, calculi or hydronephrosis. Uterus is present. Scattered colonic diverticula. Normal appendix. Multiple dilated small bowel loops throughout the abdomen width a transition point in the right lower quadrant near several wedge-shaped bowel loops concerning from small-bowel obstruction, potentially related to adhesions. Postsurgical changes of the small bowel in the right lower quadrant also noted. Gas and stool throughout the colon. Trace pelvic ascites. No free air. Severely calcified nonaneurysmal abdominal aorta. No bulky adenopathy. Superficial soft tissues are within normal limits. No acute osseous abnormality. CT/Abdomen/Pelvis W IV Cont ONLY IMPRESSION: Small-bowel obstruction with a transition point in the right lower quadrant con cerning for adhesions. Trace pelvic ascites. Reading Location: [facility]
[2025-01-28 23:31] VITALS: BMI 26.6
[2025-01-28 23:40] LABS: Lipase 35 U/L (13-75)
[2025-01-28 23:52] LABS: ALB/GLOB Ratio 1.4 RATIO (0.9-2.4); AST(SGOT) 36 U/L (<=31); Alanine Aminotransfer ALT/SGPT 32 U/L (<=34); Alkaline Phosphatase 102 U/L (35-104); Anion Gap 12 (5-15); BUN 15 mg/dL (4-19); BUN/Creat Ratio 20.7 RATIO (10-20); Calcium,Total 9.4 mg/dL (7.6-11.0); Carbon Dioxide 25.1 mmol/L (21.0-32.0); Chloride 106 mmol/L (98-108); Creatinine, Serum 0.71 mg/dL (0.70-1.20); EST Glomerular Filtration Rate 88 (>60); Estimated Creatinine Clearance 52.53 ml/min (50-250); Globulin 2.9 g/dL (2.2-4.2); Glucose 115 mg/dL (70-99); Protein, Total 6.9 g/dL (5.9-8.4); Sodium Level 142 mmol/L (133-145); Total Bilirubin 0.39 mg/dL (0.00-1.30)
[2025-01-29] VITALS (8 sets, daily range): BP systolic 92–134; BP diastolic 51–86; PULSE 72–89; RESP 15–18; TEMP 36.4–36.9; O2SAT 95–100; BMI 26.4
[2025-01-29 00:02] LABS: Lactic Acid 1.1 mmol/L (0.0-2.0)
--- OUTSIDE RECORDS SUMMARY | 2025-01-29 01:32 | XMS RPT_ITS | CCD ---
Author Organization [facility] Care Team Providers Care Log Processor Operator Name Role Phone JUANITA COATS Unavailable Unavailabl PABLO Craig (PA) Unavailable Unavailable Dr. Mann Cabrera Primary Care Provider Dr. Jitendra Cabrera Attending Provider Deborah ORDAZ, Dr. Avila Primary Care Provider Dr. Sowmya Cabrera MD Attending Provider Deborah ORDAZ, Dr. Avila Referring Provider Lex Rhoades MD Attending Provider Dr. Shelly Leonard MD Attending Provider Dr. Shelly Leonard MD Referring Provider [phone] Dr. Shelly Leonard MD Other Provider Dr. Sowmya Cabrera MD Primary Care Provider Dr. Sowmya Cabrera MD Referring Provider [phone] Dr. Sowmya Cabrera MD Attending Provider Dr. Pardeep Naranjo DO Emergency Provider Dr. Darrick Light MD Attending Provider Dr. Darrick Light MD Admit Provider Dr. Darrick Light MD Other Provider [phone] Eleonora Montaño PA-C Attending Provider Dr. Sowmya Cabrera MD Primary Care Provider Sowmya Cabrera Primary Care Unavailable Darrick Light Admitting Unavailable Darrick Light Attending Unavailable Sowmya Cabrera Referring Unavailable Sowmya Cabrera Attending Unavailable Deborah, Sowmya Primary Care Unavailable Darrick Light Admitting Unavailable [place] Unavailable Eleonora Benedict Attending Unavailable Darrick Light Consulting Unavailable Darrick Light Attending Unavailable Sowmya Cabrera Referring Unavailable Darrick Light Attending Unavailable Deborah, [facility] Unavailable Sowmya Cabrera Referring Unavailable Robotham, Shelly Attending Unavailable Deborah, [facility] Unavailable Deborah, Sowmya Referring Unavailable Robotham, Shelly Attending Unavailable Deborah, [facility] Unavailable Jeronimo Anne Attending Unavailable Deborah, [facility] Unavailable Robotham, Shelly Referring Unavailable Robotham, Shelly Attending Unavailable Robotham, Shelly Consulting Unavailable [place], [facility] Unavailable [place], [facility] Unavailable Darrick Light Attending Unavailable Deborah, [facility] Unavailable Lex Rhoades Referring Unavailable Lex Rhoades Attending Unavailable Sowmya Cabrera Referring Unavailable Sowmya Cabrera Attending Unavailable Deborah, [facility] Unavailable Deborah, Sowmya Referring Unavailable Deborah, Sowmya Attending Unavailable Deborah, [facility] Unavailable [facility], [facility] Unavailable Lex Rhoades Attending Unavailable Sowmya Cabrera Referring Unavailable Sowmya Cabrera Attending Unavailable [place], [facility] Unavailable Robotham, Shelly Referring Unavailable Robotham, Shelly Attending Unavailable [place], [facility] Unavailable Medications Current Medications Medication [...] PO DAILY September 27, 2024 1:00am Mv-Mn-Folic Lijg-M0-Fhjt 357 (Alive Women's 50 Plus Ultra Mv) 240-150 mcg tablet (4 sources) Start: 09-27-2024 Mv-Mn-Folic Vtdn-L0-Bhfi 357 (Alive Women's 50 Plus Ultra Mv) 240-150 mcg tablet Active 1 {tbl} PO DAILY September 27, 2024 1:00am Vitamins A,C,J-Gzoe-Frcxju (Preservision Areds) 4,296 mcg-226 mg-90 mg capsule (4 sources) Start: 09-27-2024 Vitamins A,C,G-Ybow-Oeuvgh (Preservision Areds) 4,296 mcg-226 mg-90 mg capsule [...] Surgery Visit Reporton 12-20 Surgery Visit Report [facility] [address] [place] [address] OFFICE VISIT Date of Service: 12/20/24 MR#: [id number] Acct: [id number] Name: GERMANIA DONIS Rep #: [id number] : 1945 Provider: Dr. Darrick kendrick MD Age/Sex: 79/F Location: [facility] Status: Signed Intake Vital Signs 12/05/24 11:12 [...] 100 mcg PO DAILY 09/27/24 12/20/24 History ctnvwkjh-uknjxktr-rxrp c acid 240 1 tab PO DAILY 09/27/24 12/20/24 H istory mcg-vit K1 150 mcg-herb 357 tablet (Alive Women's 50 Plus Ultra Multivitamin) vitamins A,C,L-yjut-lqqchf 4,296 1 cap PO BID 09/27/24 12/20/24 [...] Op Diagnoses S/P small bowel resection Z90.49 [facility] Medical History (Updated 12/15/24 @ 00:00 by aMddi Booth) Umbilical hernia Wears glasses Wears partial [...] arrange f (more content not included)... Normal [facility] Absolute lymphocyte countOrd ered By: Eleonora Montaño on 12-07-2024 Lymphocytes Auto (Unsp spec) [#/Vol] 0.77 10*3/uL Low 0.83-4.51 [facility] Absolute neutrophil countOrd ered By: Eleonora Montaño on 12-07-2024 Neutrophils (Bld) [#/Vol] 3.3 10*3/uL 2.0-7.7 [facility] Anion gap in Serum or Plasma Ordered By: Eleonora Montaño on 12-07-2024 Anion gap [Moles/Vol] 9 mmol/L 01-06 [facility] Automated lymphocyte count a s percentage of total leukocytesOrdered By: Eleonora Montaño on 12-07-2024 Lymphocytes/100 WBC Auto (Unsp spec) 16.5 % Low 19-41 [facility] BUN/creatinine ratioOrdered By: Eleonora Montaño on 12-07-2024 Urea nitrogen/Creatinine [Mass ratio] 17.0 mg/mg - [facility] Basic Metabolic Profile (BMP )on 12-07-2024 BUN/CRE 17.0 RATIO Normal - [facility] Comment on above: Performed By: #### L 500.2500, L501.5200, L100.0100, L501.2300 ####[facility] [address] [place], [address] Calcium [Mass/Vol] 8.1 mg/dL Normal 7.6-11.0 [facility] Comment on above: Performed By: #### L 500.2500, L501.5200, L100.0100, L501.2300 ####[facility] [address] [place], [address] Chloride [Moles/Vol] 113 mmol/L High 98-108 [place] Comment on above: Performed By: #### L 500.2500, L501.5200, L100.0100, L501.2300 ####[facility] [address] [place], [address] CO2 [Moles/Vol] 19.9 mmol/L Low 21.0-32.0 [facility] Comment on above: Performed By: #### L 500.2500, L501.5200, L100.0100, L501.2300 ####[facility] [address] [place], [address] Creatinine [Mass/Vol] 0.71 mg/dL Normal 0.70-1.20 [facility] Comment on above: Performed By: #### L 500.2500, L501.5200, L100.0100, L501.2300 ####[facility] [address] [place], [address] ECRCL 52.40 ml/min Normal 50-250 [facility] Comment on above: Performed By: #### L 500.2500, L501.5200, L100.0100, L501.2300 ####[facility] [address] [place], [address] GAP 9 Normal 5-15 [facility] Comment on above: Performed By: #### L 500.2500, L501.5200, L100.0100, L501.2300 ####[facility] [address] [place], [address] GFR/1.73 sq M.predicted among non-blacks MDRD (S/P/Bld) [Vol rate/Area] 88 mL/min/{1.73_m2} Normal >60 [facility] Comment on above: Result Comment: mL/m in/1.73m2 CKD-EPI Creatinine Equation (2020) Performed By: #### L 500.2500, L501.5200, L100.0100, L501.2300 ####[facility] [address] [place], [address] Glucose [Mass/Vol] 87 mg/dL Normal 70-99 [facility] Comment on above: Performed By: #### L 500.2500, L501.5200, L100.0100, L501.2300 ####[facility] [address] [place], [address] Potassium [Moles/Vol] 3.8 mmol/L Normal 3.3-5.1 [facility] Comment on above: Performed By: #### L 500.2500, L501.5200, L100.0100, L501.2300 ####[facility] [address] [place], [address] Sodium [Moles/Vol] 141 mmol/L Normal 133-145 [facility] Comment on above: Performed By: #### L 500.2500, L501.5200, L100.0100, L501.2300 ####[facility] [address] [place], [address] Urea nitrogen [Mass/Vol] 12 mg/dL Normal 4-19 [facility] Comment on above: Performed By: #### L 500.2500, L501.5200, L100.0100, L501.2300 ####[facility] [address] [place], [address] Basophil percentageOrdered B y: Eleonora Montaño on 12-07-2024 Basophils/100 WBC (Bld) 0.6 % 0-[address] [facility] CBC W/Diff, Automatedon 11-23 Absolute Lymph 0.77 X10 3/uL Low 0.83-4.51 [facility] Comment on above: Performed By: #### L 500.2500, L501.5200, L100.0100, L501.2300 ####[facility] [address] [place], [address] Absolute Neut 3.3 X10 3/uL Normal 2.0-7.7 [facility] Comment on above: Performed By: #### L 500.2500, L501.5200, L100.0100, L501.2300 ####[facility] [address] [place], [address] Basophils/100 WBC (Bld) 0.6 % Normal 0-[address] [facility] Comment on above: Performed By: #### L 500.2500, L501.5200, L100.0100, L501.2300 ####[facility] [address] [place], [address] Eosinophils/100 WBC (Bld) 2.6 % Normal 0-5 [facility] Comment on above: Performed By: #### L 500.2500, L501.5200, L100.0100, L501.2300 ####[facility] [address] [place], [address] Erythrocyte distribution width (RBC) [Ratio] 14.3 % Normal 11.6-14.6 [facility] Comment on above: Performed By: #### L 500.2500, L501.5200, L100.0100, L501.2300 ####[facility] [address] [place], [address] Hematocrit (Bld) [Volume fraction] 31.8 % Low 37-47 [facility] Comment on above: Performed By: #### L 500.2500, L501.5200, L100.0100, L501.2300 ####[facility] [address] [place], [address] Hemoglobin (Bld) [Mass/Vol] 10.4 g/dL Low 12.0-15.0 [facility] Comment on above: Performed By: #### L 500.2500, L501.5200, L100.0100, L501.2300 ####[facility] [address] [place], [address] IG% 0.900 Normal 0.0-0.9 [facility] Comment on above: Result Comment: IG% - Immature Granulocytes (promyelocytes, myelocytes and metamyelocytes) > 1% indicates that a LEFT SHIFT is Present. Performed By: #### L 500.2500, L501.5200, L100.0100, L501.2300 ####[facility] [address] [place], [address] Lymphocytes/100 WBC (Bld) 16.5 % Low 19-41 [facility] Comment on above: Performed By: #### L 500.2500, L501.5200, L100.0100, L501.2300 ####[facility] [address] [place], [address] MCH (RBC) [Entitic mass] 29.9 pg Normal 27.0-32.0 [facility] Comment on above: Performed By: #### L 500.2500, L501.5200, L100.0100, L501.2300 ####[facility] [address] [place], [address] MCHC (RBC) [Mass/Vol] 32.7 g/dL Normal 32-36 [facility] Comment on above: Performed By: #### L 500.2500, L501.5200, L100.0100, L501.2300 ####[facility] [address] [place], [address] MCV (RBC) [Entitic vol] 91.4 fL Normal 81-99 [facility] Comment on above: Performed By: #### L 500.2500, L501.5200, L100.0100, L501.2300 ####[facility] [address] [place], [address] Monocytes/100 WBC (Bld) 8.6 % Normal 0-[address] [facility] Comment on above: Performed By: #### L 500.2500, L501.5200, L100.0100, L501.2300 ####[facility] [address] [place], [address] Neutrophils/100 WBC (Bld) 70.8 % High 47-70 [facility] Comment on above: Performed By: #### L 500.2500, L501.5200, L100.0100, L501.2300 ####[facility] [address] [place], [address] Nucleated RBC (Bld) [#/Vol] 0 10*3/uL Normal 0-5 [facility] Comment on above: Performed By: #### L 500.2500, L501.5200, L100.0100, L501.2300 ####[facility] [address] [place], [address] Platelet mean volume (Bld) [Entitic vol] 10.7 fL Normal 6.2-12.0 [facility] Comment on above: Performed By: #### L 500.2500, L501.5200, L100.0100, L501.2300 ####[facility] [address] [place], [address] Platelets (Bld) [#/Vol] 217 10*3/uL Normal 150-450 [facility] Comment on above: Performed By: #### L 500.2500, L501.5200, L100.0100, L501.2300 ####[facility] [address] [place], [address] RBC (Bld) [#/Vol] 3.48 10*6/uL Low 4.2-5.4 [facility] Comment on above: Performed By: #### L 500.2500, L501.5200, L100.0100, L501.2300 ####[facility] [address] [place], [address] RDW SD 47.8 fl High 35.1-43.9 [facility] Comment on above: Performed By: #### L 500.2500, L501.5200, L100.0100, L501.2300 ####[facility] [address] [place], [address] WBC (Bld) [#/Vol] 4.7 10*3/uL Normal 4.4-11.0 [facility] Comment on above: Performed By: #### L 500.2500, L501.5200, L100.0100, L501.2300 ####[facility] [address] [place], [address] Carbon dioxide, total [Moles /volume] in Central venous bloodOrdered By: Eleonora Montaño on 12-07-2024 CO2 [Moles/Vol] 19.9 mmol/L Low 21.0-32.0 [facility] Chloride assayOrdered By: Heide Montaño on 12-07-2024 Chloride [Moles/Vol] 113 mmol/L High 98-108 [place] Eosinophil percentageOrdered By: Eleonora Montaño on 12-07-2024 Eosinophils/100 WBC (Bld) 2.6 % 0-5 [facility] Erythrocyte distribution wid th (RBC) [Ratio]Ordered By: Eleonora Montaño on 12-07-2024 Erythrocyte distribution width (RBC) [Entitic vol] 47.8 fL High 35.1-43.9 [facility] Erythrocyte distribution wid th ratioOrdered By: Eleonora Montaño on 12-07-2024 Erythrocyte distribution width (RBC) [Ratio] 14.3 % 11.6-14.6 [facility] Erythrocyte distribution wid th standard deviationOrdered By: Eleonora Montaño on 12-07-2024 Erythrocyte distribution width (RBC) [Ratio] 47.8 fl High 35.1-43.9 [facility] Estimation of creatinine nora aranceOrdered By: Eleonora Montaño on 12-07-2024 Estimated Creatinine Clearance Calc 52.40 ml/min 50-250 [facility] GFR/1.73 sq M.predicted [place] g non-blacks MDRD (S/P/Bld) [Vol rate/Area]Ordered By: Eleonora Montaño on 12-07-2024 Estimated GFR (MDRD) Non-Af Amer 88 >60 [facility] Comment on above: mL/min/1.73m2 CKD-EP I Creatinine Equation (2020) Glomerular filtration rate ( GFR) estimation/1.73 sq m using serum, plasma, or whole bOrdered By: Eleonora Montaño on 12-07-2024 GFR/1.73 sq M.predicted among non-blacks MDRD (S/P/Bld) [Vol rate/Area] 88 mL/min/{1.73_m2} >60 [facility] Comment on above: mL/min/1.73m2 CKD-EP I Creatinine Equation (2020) Hematocrit Auto (Bld) [Volum e fraction]Ordered By: Eleonora Montaño on 12-07-2024 Hematocrit (Bld) [Volume fraction] 31.8 % Low 37-47 [facility] Hemoglobin measurementOrdere d By: Eleonora Montaño on 12-07-2024 Hemoglobin (Bld) [Mass/Vol] 10.4 g/dL Low 12.0-15.0 [facility] Immature granulocytes/100 WB C Auto (Bld)Ordered By: Eleonora Montaño on 12-07-2024 Immature granulocytes/100 WBC (Bld) 0.900 % 0.0-0.9 [facility] Comment on above: IG% - Immature Granu locytes (promyelocytes, myelocytes and metamyelocytes) > 1% indicates that a LEFT SHIFT is Present. Lymphocytes Auto (Unsp spec) [#/Vol]Ordered By: Eleonora Montaño on 12-07-2024 Lymphocytes (Bld) [#/Vol] 0.77 10*3/uL Low 0.83-4.51 [facility] Lymphocytes/100 WBC Auto (Un sp spec)Ordered By: Eleonora Montaño on 12-07-2024 Lymphocytes/100 WBC (Bld) 16.5 % Low 19-41 [facility] MCV (mean corpuscular volume ) determinationOrdered By: Eleonora Montaño on 12-07-2024 MCV (RBC) [Entitic vol] 91.4 fL 81-[address] [facility] Magnesiumon 12-07-2024 Magnesium [Mass/Vol] 2.1 mg/dL Normal 1.5-2.2 [place] Comment on above: Performed By: #### L 500.2500, L501.5200, L100.0100, L501.2300 ####[facility] [address] [place], [place], [address] Magnesium (Unsp spec) [Mass/ Vol]Ordered By: Eleonora Montaño on 12-07-2024 Magnesium [Mass/Vol] 2.1 mg/dL 1.5-2.2 [place] Magnesium measurement (mass/ volume)Ordered By: Eleonora Montaño on 12-07-2024 Magnesium (Unsp spec) [Mass/Vol] 2.1 mg/dL 1.5-2.2 [facility] Mean corpuscular hemoglobin (MCH) determinationOrdered By: Eleonora Montaño on 12-07-2024 MCH (RBC) [Entitic mass] 29.9 pg 27.0-32.0 [facility] Mean corpuscular hemoglobin concentration (MCHC) determinationOrdered By: Eleonora Montaño on 12-07-2024 MCHC (RBC) [Mass/Vol] 32.7 g/dL 32-36 [facility] Mean platelet volume determi nationOrdered By: Eleonora Montaño on 12-07-2024 Platelet mean volume (Bld) [Entitic vol] 10.7 fL 6.2-12.0 [facility] Monocyte percentageOrdered B y: Eleonora Montaño on 12-07-2024 Monocytes/100 WBC (Bld) 8.6 % 0-[address] [facility] Neutrophil percentageOrdered By: Eleonora Montaño on 12-07-2024 Neutrophils/100 WBC (Bld) 70.8 % High 47-70 [facility] Nucleated red blood cell per centageOrdered By: Eleonora Montaño on 12-07-2024 Nucleated RBC/100 WBC (Bld) [Ratio] 0 % 0-5 [facility] Phosphoruson 12-07-2024 Phosphate [Mass/Vol] 2.4 mg/dL Low 2.7-4.5 [place] Comment on above: Performed By: #### L 500.2500, L501.5200, L100.0100, L501.2300 ####[facility] [address] [place], [address] Platelet countOrdered By: Heide Montaño on 12-07-2024 Platelets (Bld) [#/Vol] 217 10*3/uL 150-450 [facility] Potassium (Unsp spec) [Mass/ Vol]Ordered By: Eleonora Montaño on 12-07-2024 Potassium [Moles/Vol] 3.8 mmol/L 3.3-5.1 [facility] Potassium measurement (mass/ volume)Ordered By: Eleonora Montaño on 12-07-2024 Potassium (Unsp spec) [Mass/Vol] 3.8 mmol/L 3.3-5.1 [facility] RBC Auto (Bld) [#/Vol]Ordere d By: Eleonora Montaño on 12-07-2024 RBC (Bld) [#/Vol] 3.48 10*6/uL Low 4.2-5.4 [facility] Serum creatinine measurement (mass/volume)Ordered By: Eleonora Montaño on 12-07-2024 Creatinine [Mass/Vol] 0.71 mg/dL 0.70-1.20 [facility] Serum glucose measurement (m ass/volume)Ordered By: Eleonora Montaño on 12-07-2024 Glucose [Mass/Vol] 87 mg/dL 70-99 [facility] Serum or plasma calcium demetrice urement (mass/volume)Ordered By: Eleonora Montaño on 12-07-2024 Calcium [Mass/Vol] 8.1 mg/dL 7.6-11.0 [facility] Serum or plasma urea nitroge n measurement (mass/volume)Ordered By: Eleonora Montaño on 12-07-2024 Urea nitrogen [Mass/Vol] 12 mg/dL 4-19 [facility] Serum phosphorus measurement Ordered By: Eleonora Montaño on 12-07-2024 Phosphorus Level 2.4 mg/dL Low 2.7-4.5 [facility] Sodium levelOrdered By: Markel Bender on 12-07-2024 Sodium [Moles/Vol] 141 mmol/L 133-145 [facility] White blood cell (WBC) count Ordered By: Eleonora Montaño on 04-15-2025 WBC (Bld) [#/Vol] 4.7 10*3/uL 4.4-11.0 [facility] Basic Metabolic Profile (BMP )on 12-06-2024 BUN/CRE 27.1 RATIO High 10-20 [facility] Comment on above: Performed By: #### L 501.5200, L500.2500, L501.2300, L100.0100 ####[facility] [address] [place], [address] Calcium [Mass/Vol] 8.0 mg/dL Normal 7.6-11.0 [facility] Comment on above: Performed By: #### L 501.5200, L500.2500, L501.2300, L100.0100 ####[facility] [address] [place], [address] Chloride [Moles/Vol] 112 mmol/L High 98-108 [place] Comment on above: Performed By: #### L 501.5200, L500.2500, L501.2300, L100.0100 ####[facility] [address] [place], [address] CO2 [Moles/Vol] 18.8 mmol/L Low 21.0-32.0 [facility] Comment on above: Performed By: #### L 501.5200, L500.2500, L501.2300, L100.0100 ####[facility] [address] [place], [address] Creatinine [Mass/Vol] 0.64 mg/dL Low 0.70-1.20 [facility] Comment on above: Performed By: #### L 501.5200, L500.2500, L501.2300, L100.0100 ####[facility] [address] [place], [address] ECRCL 52.40 ml/min Normal 50-250 [facility] Comment on above: Performed By: #### L 501.5200, L500.2500, L501.2300, L100.0100 ####[facility] [address] [place], [address] GAP 9 Normal 5-15 [facility] Comment on above: Performed By: #### L 501.5200, L500.2500, L501.2300, L100.0100 ####[facility] [address] [place], [address] GFR/1.73 sq M.predicted among non-blacks MDRD (S/P/Bld) [Vol rate/Area] 91 mL/min/{1.73_m2} Normal >60 [facility] Comment on above: Result Comment: mL/m in/1.73m2 CKD-EPI Creatinine Equation (2020) Performed By: #### L 501.5200, L500.2500, L501.2300, L100.0100 ####[facility] [address] [place], [address] Glucose [Mass/Vol] 77 mg/dL Normal 70-99 [facility] Comment on above: Performed By: #### L 501.5200, L500.2500, L501.2300, L100.0100 ####[facility] [address] [place], [address] Potassium [Moles/Vol] 3.9 mmol/L Normal 3.3-5.1 [facility] Comment on above: Performed By: #### L 501.5200, L500.2500, L501.2300, L100.0100 ####[facility] [address] [place], [address] Sodium [Moles/Vol] 140 mmol/L Normal 133-145 [facility] Comment on above: Performed By: #### L 501.5200, L500.2500, L501.2300, L100.0100 ####[facility] [address] [place], [address] Urea nitrogen [Mass/Vol] 17 mg/dL Normal 4-19 [facility] Comment on above: Performed By: #### L 501.5200, L500.2500, L501.2300, L100.0100 ####[facility] [address] [place], [address] CBC W/Diff, Automatedon 11-23 Absolute Lymph 0.67 X10 3/uL Low 0.83-4.51 [facility] Comment on above: Performed By: #### L 501.5200, L500.2500, L501.2300, L100.0100 ####[facility] [address] [place], [address] Absolute Neut 3.8 X10 3/uL Normal 2.0-7.7 [facility] Comment on above: Performed By: #### L 501.5200, L500.2500, L501.2300, L100.0100 ####[facility] [address] [place], [address] Basophils/100 WBC (Bld) 0.2 % Normal 0-[address] [facility] Comment on above: Performed By: #### L 501.5200, L500.2500, L501.2300, L100.0100 ####[facility] [address] [place], [address] Eosinophils/100 WBC (Bld) 0.4 % Normal 0-5 [facility] Comment on above: Performed By: #### L 501.5200, L500.2500, L501.2300, L100.0100 ####[facility] [address] [place], [address] Erythrocyte distribution width (RBC) [Ratio] 14.4 % Normal 11.6-14.6 [facility] Comment on above: Performed By: #### L 501.5200, L500.2500, L501.2300, L100.0100 ####[facility] [address] [place], [address] Hematocrit (Bld) [Volume fraction] 31.1 % Low 37-47 [facility] Comment on above: Performed By: #### L 501.5200, L500.2500, L501.2300, L100.0100 ####[facility] [address] [place], [address] Hemoglobin (Bld) [Mass/Vol] 10.1 g/dL Low 12.0-15.0 [facility] Comment on above: Performed By: #### L 501.5200, L500.2500, L501.2300, L100.0100 ####[facility] [address] [place], [address] IG% 0.400 Normal 0.0-0.9 [facility] Comment on above: Result Comment: IG% - Immature Granulocytes (promyelocytes, myelocytes and metamyelocytes) > 1% indicates that a LEFT SHIFT is Present. Performed By: #### L 501.5200, L500.2500, L501.2300, L100.0100 ####[facility] [address] [place], [address] Lymphocytes/100 WBC (Bld) 13.8 % Low 19-41 [facility] Comment on above: Performed By: #### L 501.5200, L500.2500, L501.2300, L100.0100 ####[facility] [address] [place], [address] MCH (RBC) [Entitic mass] 30.1 pg Normal 27.0-32.0 [facility] Comment on above: Performed By: #### L 501.5200, L500.2500, L501.2300, L100.0100 ####[facility] [address] [place], [address] MCHC (RBC) [Mass/Vol] 32.5 g/dL Normal 32-36 [facility] Comment on above: Performed By: #### L 501.5200, L500.2500, L501.2300, L100.0100 ####[facility] [address] [place], [address] MCV (RBC) [Entitic vol] 92.6 fL Normal 81-[address] [facility] Comment on above: Performed By: #### L 501.5200, L500.2500, L501.2300, L100.0100 ####[facility] [address] [place], [address] Monocytes/100 WBC (Bld) 6.4 % Normal 0-10 [facility] Comment on above: Performed By: #### L 501.5200, L500.2500, L501.2300, L100.0100 ####[facility] [address] [place], [address] Neutrophils/100 WBC (Bld) 78.8 % High 47-70 [facility] Comment on above: Performed By: #### L 501.5200, L500.2500, L501.2300, L100.0100 ####[facility] [address] [place], [address] Nucleated RBC (Bld) [#/Vol] 0 10*3/uL Normal 0-5 [facility] Comment on above: Performed By: #### L 501.5200, L500.2500, L501.2300, L100.0100 ####[facility] [address] [place], [address] Platelet mean volume (Bld) [Entitic vol] 10.6 fL Normal 6.2-12.0 [facility] Comment on above: Performed By: #### L 501.5200, L500.2500, L501.2300, L100.0100 ####[facility] [address] [place], [address] Platelets (Bld) [#/Vol] 185 10*3/uL Normal 150-450 [facility] Comment on above: Performed By: #### L 501.5200, L500.2500, L501.2300, L100.0100 ####[facility] [address] [place], [address] RBC (Bld) [#/Vol] 3.36 10*6/uL Low 4.2-5.4 [facility] Comment on above: Performed By: #### L 501.5200, L500.2500, L501.2300, L100.0100 ####[facility] [address] [place], [address] RDW SD 49.0 fl High 35.1-43.9 [facility] Comment on above: Performed By: #### L 501.5200, L500.2500, L501.2300, L100.0100 ####[facility] [address] [place], [address] WBC (Bld) [#/Vol] 4.9 10*3/uL Normal 4.4-11.0 [facility] Comment on above: Performed By: #### L 501.5200, L500.2500, L501.2300, L100.0100 ####[facility] [address] [place], [address] Magnesiumon 12-06-2024 Magnesium [Mass/Vol] 2.4 mg/dL High 1.5-2.2 [place] Comment on above: Performed By: #### L 501.5200, L500.2500, L501.2300, L100.0100 ####[facility] [address] [place], [address] Phosphoruson 12-06-2024 Phosphate [Mass/Vol] 1.9 mg/dL Low 2.7-4.5 [place] Comment on above: Performed By: #### L 501.5200, L500.2500, L501.2300, L100.0100 ####[facility] [address] [place], [address] Basic Metabolic Profile (BMP )on 12-05-2024 BUN/CRE 21.8 RATIO High 10-20 [facility] Comment on above: Performed By: #### L 100.0100, L501.5200, L501.2300, L500.2500 #### [facility] [address] [place], [address] Calcium [Mass/Vol] 8.2 mg/dL Normal 7.6-11.0 [facility] Comment on above: Performed By: #### L 100.0100, L501.5200, L501.2300, L500.2500 #### [facility] [address] [place], [address] Chloride [Moles/Vol] 113 mmol/L High 98-108 [place] Comment on above: Performed By: #### L 100.0100, L501.5200, L501.2300, L500.2500 #### [facility] [address] [place], [address] CO2 [Moles/Vol] 15.4 mmol/L Low 21.0-32.0 [facility] Comment on above: Performed By: #### L 100.0100, L501.5200, L501.2300, L500.2500 #### [facility] [address] [place], [address] Creatinine [Mass/Vol] 0.68 mg/dL Low 0.70-1.20 [facility] Comment on above: Performed By: #### L 100.0100, L501.5200, L501.2300, L500.2500 #### [facility] [address] [place], [address] ECRCL 52.40 ml/min Normal 50-250 [facility] Comment on above: Performed By: #### L 100.0100, L501.5200, L501.2300, L500.2500 #### [facility] [address] [place], [address] GAP 14 Normal 5-15 [facility] Comment on above: Performed By: #### L 100.0100, L501.5200, L501.2300, L500.2500 #### [facility] [address] [place], [address] GFR/1.73 sq M.predicted among non-blacks MDRD (S/P/Bld) [Vol rate/Area] 90 mL/min/{1.73_m2} Normal >60 [facility] Comment on above: Result Comment: mL/m in/1.73m2 CKD-EPI Creatinine Equation (2020) Performed By: #### L 100.0100, L501.5200, L501.2300, L500.2500 #### [facility] [address] [place], [address] Glucose [Mass/Vol] 95 mg/dL Normal 70-99 [facility] Comment on above: Performed By: #### L 100.0100, L501.5200, L501.2300, L500.2500 #### [facility] [address] [place], [address] Potassium [Moles/Vol] 4.5 mmol/L Normal 3.3-5.1 [facility] Comment on above: Performed By: #### L 100.0100, L501.5200, L501.2300, L500.2500 #### [facility] [address] [place], [address] Sodium [Moles/Vol] 142 mmol/L Normal 133-145 [facility] Comment on above: Performed By: #### L 100.0100, L501.5200, L501.2300, L500.2500 #### [facility] [address] [place], [address] Urea nitrogen [Mass/Vol] 15 mg/dL Normal 4-19 [facility] Comment on above: Performed By: #### L 100.0100, L501.5200, L501.2300, L500.2500 #### [facility] [address] [place], [address] CBC W/Diff, Automatedon 04-08 27-2024 Absolute Lymph 0.54 X10 3/uL Low 0.83-4.51 [facility] Comment on above: Performed By: #### L 100.0100, L501.5200, L501.2300, L500.2500 #### [facility] [address] [place], [address] Absolute Neut 8.2 X10 3/uL High 2.0-7.7 [facility] Comment on above: Performed By: #### L 100.0100, L501.5200, L501.2300, L500.2500 #### [facility] [address] [place], [address] Basophils/100 WBC (Bld) 0.1 % Normal 0-[address] [facility] Comment on above: Performed By: #### L 100.0100, L501.5200, L501.2300, L500.2500 #### [facility] [address] [place], [address] Eosinophils/100 WBC (Bld) 0.0 % Normal 0-5 [facility] Comment on above: Performed By: #### L 100.0100, L501.5200, L501.2300, L500.2500 #### [facility] [address] [place], [address] Erythrocyte distribution width (RBC) [Ratio] 14.3 % Normal 11.6-14.6 [facility] Comment on above: Performed By: #### L 100.0100, L501.5200, L501.2300, L500.2500 #### [facility] [address] [place], [address] Hematocrit (Bld) [Volume fraction] 37.1 % Normal 37-47 [facility] Comment on above: Performed By: #### L 100.0100, L501.5200, L501.2300, L500.2500 #### [facility] [address] [place], [address] Hemoglobin (Bld) [Mass/Vol] 11.6 g/dL Low 12.0-15.0 [facility] Comment on above: Performed By: #### L 100.0100, L501.5200, L501.2300, L500.2500 #### [facility] [address] [place], [address] IG% 0.600 Normal 0.0-0.9 [facility] Comment on above: Result Comment: IG% - Immature Granulocytes (promyelocytes, myelocytes and metamyelocytes) > 1% indicates that a LEFT SHIFT is Present. Performed By: #### L 100.0100, L501.5200, L501.2300, L500.2500 #### [facility] [address] [place], [address] Lymphocytes/100 WBC (Bld) 5.8 % Low 19-41 [facility] Comment on above: Performed By: #### L 100.0100, L501.5200, L501.2300, L500.2500 #### [facility] [address] [place], [address] MCH (RBC) [Entitic mass] 29.7 pg Normal 27.0-32.0 [facility] Comment on above: Performed By: #### L 100.0100, L501.5200, L501.2300, L500.2500 #### [facility] [address] [place], [address] MCHC (RBC) [Mass/Vol] 31.3 g/dL Low 32-36 [facility] Comment on above: Performed By: #### L 100.0100, L501.5200, L501.2300, L500.2500 #### [facility] [address] [place], [address] MCV (RBC) [Entitic vol] 94.9 fL Normal 81-99 [facility] Comment on above: Performed By: #### L 100.0100, L501.5200, L501.2300, L500.2500 #### [facility] [address] [place], [address] Monocytes/100 WBC (Bld) 5.7 % Normal 0-10 [facility] Comment on above: Performed By: #### L 100.0100, L501.5200, L501.2300, L500.2500 #### [facility] [address] [place], [address] Neutrophils/100 WBC (Bld) 87.8 % High 47-70 [facility] Comment on above: Performed By: #### L 100.0100, L501.5200, L501.2300, L500.2500 #### [facility] [address] [place], [address] Nucleated RBC (Bld) [#/Vol] 0 10*3/uL Normal 0-5 [facility] Comment on above: Performed By: #### L 100.0100, L501.5200, L501.2300, L500.2500 #### [facility] [address] [place], [address] Platelet mean volume (Bld) [Entitic vol] 11.3 fL Normal 6.2-12.0 [facility] Comment on above: Performed By: #### L 100.0100, L501.5200, L501.2300, L500.2500 #### [facility] [address] [place], [address] Platelets (Bld) [#/Vol] 189 10*3/uL Normal 150-450 [facility] Comment on above: Performed By: #### L 100.0100, L501.5200, L501.2300, L500.2500 #### [facility] [address] [place], [address] RBC (Bld) [#/Vol] 3.91 10*6/uL Low 4.2-5.4 [facility] Comment on above: Performed By: #### L 100.0100, L501.5200, L501.2300, L500.2500 #### [facility] [address] [place], [address] RDW SD 49.2 fl High 35.1-43.9 [facility] Comment on above: Performed By: #### L 100.0100, L501.5200, L501.2300, L500.2500 #### [facility] [address] [place], [address] WBC (Bld) [#/Vol] 9.4 10*3/uL Normal 4.4-11.0 [facility] Comment on above: Performed By: #### L 100.0100, L501.5200, L501.2300, L500.2500 #### [facility] [address] [place], [address] Magnesiumon 12-05-2024 Magnesium [Mass/Vol] 2.5 mg/dL High 1.5-2.2 [place] Comment on above: Performed By: #### L 100.0100, L501.5200, L501.2300, L500.2500 #### [facility] [address] [place], [address] Phosphoruson 12-05-2024 Phosphate [Mass/Vol] 3.4 mg/dL Normal 2.7-4.5 [place] Comment on above: Performed By: #### L 100.0100, L501.5200, L501.2300, L500.2500 #### [facility] [address] [place], [address] Abdomen/Pelvis WITH Contrast on 12-04-2024 Abdomen/Pelvis WITH Contrast [facility] [address] [facility] [place] [address] Abdomen/Pelvis WITH Contrast MR#: [id number] Acct: [id number] Name: GERMANIA DONIS Rep #: [id number] : 1945 F 79 From: Kaila Choi nd, [place] PCP: Dr. Sowmya Cabrera MD Status: [facility] ER Study: Abdomen/Pelvis WITH Contrast Date of Exam: 08/18 Exam# [id number] Ordering Dr: Paredep Naranjo DO PROCEDURE: ABDOMEN/PELVIS WITH CONTRAST 12/04/2024 [...] at 10:34 a.m. on 12/04/2024. Reading Location: [facility] CC: Dr. Sowmya Cabrera MD; Dr. Pardeep Naranjo DO Teletype Mechanic: Signed Normal [facility] Absolute neutrophil countOrd ered By: Pardeep Naranjo on 12-04-2024 Neutrophils (Bld) [#/Vol] 6.2 10*3/uL 2.0-7.7 [facility] Anion gap in Serum or Plasma Ordered By: Pardeep Naranjo on 12-04-2024 Anion gap [Moles/Vol] 10 mmol/L 5-15 [facility] BUN/creatinine ratioOrdered By: Pardeep Naranjo on 12-04-2024 Urea nitrogen/Creatinine [Mass ratio] 23.5 mg/mg High 10-20 [facility] Basic Metabolic Profile (BMP )on 12-04-2024 BUN/CRE 23.5 RATIO High 10-20 [facility] Comment on above: Performed By: #### L 100.0100, L500.3400, L501.2450, L500.2500 #### [facility] [address] [place], [address] Calcium [Mass/Vol] 9.0 mg/dL Normal 7.6-11.0 [facility] Comment on above: Performed By: #### L 100.0100, L500.3400, L501.2450, L500.2500 #### [facility] [address] [place], [address] Chloride [Moles/Vol] 101 mmol/L Normal 98-108 [place] Comment on above: Performed By: #### L 100.0100, L500.3400, L501.2450, L500.2500 #### [facility] [address] [place], [address] CO2 [Moles/Vol] 24.3 mmol/L Normal 21.0-32.0 [facility] Comment on above: Performed By: #### L 100.0100, L500.3400, L501.2450, L500.2500 #### [facility] [address] [place], [address] Creatinine [Mass/Vol] 0.72 mg/dL Normal 0.70-1.20 [facility] Comment on above: Performed By: #### L 100.0100, L500.3400, L501.2450, L500.2500 #### [facility] [address] [place], [address] ECRCL 52.40 ml/min Normal 50-250 [facility] Comment on above: Performed By: #### L 100.0100, L500.3400, L501.2450, L500.2500 #### [facility] [address] [place], [address] GAP 10 Normal 5-15 [facility] Comment on above: Performed By: #### L 100.0100, L500.3400, L501.2450, L500.2500 #### [facility] [address] [place], [address] GFR/1.73 sq M.predicted among non-blacks MDRD (S/P/Bld) [Vol rate/Area] 86 mL/min/{1.73_m2} Normal >60 [facility] Comment on above: Result Comment: mL/m in/1.73m2 CKD-EPI Creatinine Equation (2020) Performed By: #### L 100.0100, L500.3400, L501.2450, L500.2500 #### [facility] [address] [place], [address] Glucose [Mass/Vol] 98 mg/dL Normal 70-99 [facility] Comment on above: Performed By: #### L 100.0100, L500.3400, L501.2450, L500.2500 #### [facility] [address] [place], [address] Potassium [Moles/Vol] 4.5 mmol/L Normal 3.3-5.1 [facility] Comment on above: Performed By: #### L 100.0100, L500.3400, L501.2450, L500.2500 #### [facility] [address] [place], [address] Sodium [Moles/Vol] 135 mmol/L Normal 133-145 [facility] Comment on above: Performed By: #### L 100.0100, L500.3400, L501.2450, L500.2500 #### [facility] [address] [place], [address] Urea nitrogen [Mass/Vol] 17 mg/dL Normal 4-19 [facility] Comment on above: Performed By: #### L 100.0100, L500.3400, L501.2450, L500.2500 #### [facility] [address] [place], [address] Basophil percentageOrdered B y: Pardeep Naranjo on 12-04-2024 Basophils/100 WBC (Bld) 0.1 % 0-[address] [facility] Bilirubin Test strip Ql (U)O rdered By: Pardeep Naranjo on 12-04-2024 Bilirubin Ql (U) Negative Negative [facility] Bilirubin directOrdered By: Pardeep Naranjo on 12-04-2024 Bilirubin.direct [Mass/Vol] 0.28 mg/dL 0.00-0.30 [facility] Bilirubin, totalOrdered By: Pardeep Naranjo on 12-04-2024 Bilirubin [Mass/Vol] 0.59 mg/dL 0.00-1.30 [place] CBC W/Diff, Automatedon 11-23 Absolute Lymph 0.71 X10 3/uL Low 0.83-4.51 [facility] Comment on above: Performed By: #### L 100.0100, L500.3400, L501.2450, L500.2500 #### [facility] [address] [place], [address] Absolute Neut 6.2 X10 3/uL Normal 2.0-7.7 [facility] Comment on above: Performed By: #### L 100.0100, L500.3400, L501.2450, L500.2500 #### [facility] [address] [place], [address] Basophils/100 WBC (Bld) 0.1 % Normal 0-[address] [facility] Comment on above: Performed By: #### L 100.0100, L500.3400, L501.2450, L500.2500 #### [facility] [address] [place], [address] Eosinophils/100 WBC (Bld) 0.3 % Normal 0-5 [facility] Comment on above: Performed By: #### L 100.0100, L500.3400, L501.2450, L500.2500 #### [facility] [address] [place], [address] Erythrocyte distribution width (RBC) [Ratio] 14.0 % Normal 11.6-14.6 [facility] Comment on above: Performed By: #### L 100.0100, L500.3400, L501.2450, L500.2500 #### [facility] [address] [place], [address] Hematocrit (Bld) [Volume fraction] 37.1 % Normal 37-47 [facility] Comment on above: Performed By: #### L 100.0100, L500.3400, L501.2450, L500.2500 #### [facility] [address] [place], [address] Hemoglobin (Bld) [Mass/Vol] 12.2 g/dL Normal 12.0-15.0 [facility] Comment on above: Performed By: #### L 100.0100, L500.3400, L501.2450, L500.2500 #### [facility] [address] [place], [address] IG% 0.400 Normal 0.0-0.9 [facility] Comment on above: Result Comment: IG% - Immature Granulocytes (promyelocytes, myelocytes and metamyelocytes) > 1% indicates that a LEFT SHIFT is Present. Performed By: #### L 100.0100, L500.3400, L501.2450, L500.2500 #### [facility] [address] [place], [address] Lymphocytes/100 WBC (Bld) 9.5 % Low 19-41 [facility] Comment on above: Performed By: #### L 100.0100, L500.3400, L501.2450, L500.2500 #### [facility] [address] [place], [address] MCH (RBC) [Entitic mass] 29.7 pg Normal 27.0-32.0 [facility] Comment on above: Performed By: #### L 100.0100, L500.3400, L501.2450, L500.2500 #### [facility] [address] [place], [address] MCHC (RBC) [Mass/Vol] 32.9 g/dL Normal 32-36 [facility] Comment on above: Performed By: #### L 100.0100, L500.3400, L501.2450, L500.2500 #### [facility] [address] [place], [address] MCV (RBC) [Entitic vol] 90.3 fL Normal 81-99 [facility] Comment on above: Performed By: #### L 100.0100, L500.3400, L501.2450, L500.2500 #### [facility] [address] [place], [address] Monocytes/100 WBC (Bld) 6.5 % Normal 0-10 [facility] Comment on above: Performed By: #### L 100.0100, L500.3400, L501.2450, L500.2500 #### [facility] [address] [place], [address] Neutrophils/100 WBC (Bld) 83.2 % High 47-70 [facility] Comment on above: Performed By: #### L 100.0100, L500.3400, L501.2450, L500.2500 #### [facility] [address] [place], [address] Nucleated RBC (Bld) [#/Vol] 0 10*3/uL Normal 0-5 [facility] Comment on above: Performed By: #### L 100.0100, L500.3400, L501.2450, L500.2500 #### [facility] [address] [place], [address] Platelet mean volume (Bld) [Entitic vol] 10.9 fL Normal 6.2-12.0 [facility] Comment on above: Performed By: #### L 100.0100, L500.3400, L501.2450, L500.2500 #### [facility] [address] [place], [address] Platelets (Bld) [#/Vol] 182 10*3/uL Normal 150-450 [facility] Comment on above: Performed By: #### L 100.0100, L500.3400, L501.2450, L500.2500 #### [facility] Laboratory [address] [place], [address] RBC (Bld) [#/Vol] 4.11 10*6/uL Low 4.2-5.4 [facility] Comment on above: Performed By: #### L 100.0100, L500.3400, L501.2450, L500.2500 #### [facility] Laboratory [address] [place], [address] RDW SD 46.5 fl High 35.1-43.9 [facility] Comment on above: Performed By: #### L 100.0100, L500.3400, L501.2450, L500.2500 #### [facility] Laboratory [address] [place], [address] WBC (Bld) [#/Vol] 7.4 10*3/uL Normal 4.4-11.0 [facility] Comment on above: Performed By: #### L 100.0100, L500.3400, L501.2450, L500.2500 #### [facility] Laboratory [address] [place], [address] Carbon dioxide, total [Moles /volume] in Central venous bloodOrdered By: Pardeep Naranjo on 12-04-2024 CO2 [Moles/Vol] 24.3 mmol/L 21.0-32.0 [facility] Chloride assayOrdered By: Asher Naranjo on 12-04-2024 Chloride [Moles/Vol] 101 mmol/L 98-108 [place] [facility] Summary on 12-04-2024 Emergency Department Summary [facility] Medical Records Department [address] [place] [address] Emergency Department Summary 12/04/24 MR#: [id number] Acct: [id number] Name: GERMANIA DONIS Rep #: [id number] : 1945 79 From: Pardeep Naranjo DO PCP: Dr. Sowmya Cabrera MD Status:ADM IN Location: [facility] TC443-4 HPI HPI - GI History of Present [...] followed up and things were progressing normally. [facility] Medical History Umbilical hernia Wears glasses Wears [...] 100 mcg PO QDAY 09/27/24 11/03/24 History uzbrejfz-xzesgexn-txdr c acid 240 1 tab PO DAILY 09/27/24 11/03/24 H istory mcg-vit K1 150 mcg-herb 357 tablet (Alive Women's 50 Plus Ultra Multivitamin) vitamins A,C,X-wxgm-mrrxsm 4,296 1 cap PO BID 09/27/24 11/03/24 [...] intact bilate (more content not included)... Normal [facility] Eosinophil percentageOrdered By: Pardeep Naranjo on 12-04-2024 Eosinophils/100 WBC (Bld) 0.3 % 0-5 [facility] Epithelial cells.squamous LM Ql (Urine sed)Ordered By: Pardeep Naranjo on 12-04-2024 Epithelial cells.squamous LM.HPF (Urine sed) [#/Area] 0 /[HPF] 5-10 [facility] Erythrocyte distribution wid th (RBC) [Ratio]Ordered By: Pardeep Naranjo on 12-04-2024 Erythrocyte distribution width (RBC) [Entitic vol] 46.5 fL High 35.1-43.9 [facility] Erythrocyte distribution wid th ratioOrdered By: Pardeep Naranjo on 12-04-2024 Erythrocyte distribution width (RBC) [Ratio] 14.0 % 11.6-14.6 [facility] Estimation of creatinine nora aranceOrdered By: Pardeep Naranjo on 12-04-2024 Estimated Creatinine Clearance Calc 52.40 ml/min 50-250 [facility] GFR/1.73 sq M.predicted [place] g non-blacks MDRD (S/P/Bld) [Vol rate/Area]Ordered By: Pardeep Naranjo on 12-04-2024 Estimated GFR (MDRD) Non-Af Amer 86 >60 [facility] Comment on above: mL/min/1.73m2 CKD-EP I Creatinine Equation (2020) Glucose Ql (U)Ordered By: Asher Naranjo on 12-04-2024 Urine Glucose (UA) Normal mg/dl Normal [place] Hematocrit Auto (Bld) [Volum e fraction]Ordered By: Pardeep Naranjo on 12-04-2024 Hematocrit (Bld) [Volume fraction] 37.1 % 37-47 [facility] Hemoglobin measurementOrdere d By: Pardeep Naranjo on 12-04-2024 Hemoglobin (Bld) [Mass/Vol] 12.2 g/dL 12.0-15.0 [facility] Immature granulocytes/100 WB C Auto (Bld)Ordered By: Pardeep Naranjo on 12-04-2024 Immature granulocytes/100 WBC (Bld) 0.400 % 0.0-0.9 [facility] Comment on above: IG% - Immature Granu locytes (promyelocytes, myelocytes and metamyelocytes) > 1% indicates that a LEFT SHIFT is Present. Ketones Test strip Ql (U)Ord ered By: Pardeep Naranjo on 12-04-2024 Ketones Ql (U) 15 mg/dl High Negative [facility] Laboratory - Chemistry and C hemistry - challengeOrdered By: Pardeep Naranjo on 12-04-2024 AST [Catalytic activity/Vol] 39 U/L High <32 [facility] Lipaseon 12-04-2024 Lipase [Catalytic activity/Vol] 31 U/L Normal 13-75 [facility] Comment on above: Result Comment: Con greco note: LIPASE revised reference range effective 22. New Lipase methodology. Expected to produce lower values than the previous assay method. NEW Reference Range: 13 - 75 U/L Performed By: #### L 100.0100, L500.3400, L501.2450, L500.2500 ####[facility] [address] [place], [address] Lipase measurementOrdered By : Pardeep Naranjo on 12-04-2024 Lipase [Catalytic activity/Vol] 31 U/L 13-75 [facility] Comment on above: Please note:LIPASE r evised reference range effective 22. New Lipase methodology. Expected to produce lower values than the previous assay method. NEW Reference Range: 13 - 75 U/L Liver Profileon 12-04-2024 Albumin [Mass/Vol] 3.5 g/dL Normal 3.4-4.8 [facility] Comment on above: Performed By: #### L 100.0100, L500.3400, L501.2450, L500.2500 ####[facility] [address] [place], [address] ALK PHOS 110 U/L High 35-104 [facility] Comment on above: Performed By: #### L 100.0100, L500.3400, L501.2450, L500.2500 ####[facility] [address] [place], [address] ALT [Catalytic activity/Vol] 32 U/L Normal <=34 [facility] Comment on above: Performed By: #### L 100.0100, L500.3400, L501.2450, L500.2500 ####[facility] [address] [place], [address] AST [Catalytic activity/Vol] 39 U/L High <=31 [facility] Comment on above: Performed By: #### L 100.0100, L500.3400, L501.2450, L500.2500 ####[facility] [address] [place], [address] Bilirubin [Mass/Vol] 0.59 mg/dL Normal 0.00-1.30 [place] Comment on above: Performed By: #### L 100.0100, L500.3400, L501.2450, L500.2500 ####[facility] [address] [place], [address] Bilirubin.direct [Mass/Vol] 0.28 mg/dL Normal 0.00-0.30 [facility] Comment on above: Performed By: #### L 100.0100, L500.3400, L501.2450, L500.2500 ####[facility] [address] [place], [address] Globulin (S) [Mass/Vol] 3.4 g/dL Normal 2.2-4.2 [facility] Comment on above: Performed By: #### L 100.0100, L500.3400, L501.2450, L500.2500 ####[facility] [address] [place], [address] T PROT 6.9 g/dL Normal 5.9-8.4 [facility] Comment on above: Performed By: #### L 100.0100, L500.3400, L501.2450, L500.2500 ####[facility] [address] [place], [address] Lymphocytes Auto (Unsp spec) [#/Vol]Ordered By: Pardeep Naranjo on 12-04-2024 Lymphocytes (Bld) [#/Vol] 0.71 10*3/uL Low 0.83-4.51 [facility] Lymphocytes/100 WBC Auto (Un sp spec)Ordered By: Pardeep Naranjo on 12-04-2024 Lymphocytes/100 WBC (Bld) 9.5 % Low 19-41 [facility] MCV (mean corpuscular volume ) determinationOrdered By: Pardeep Naranjo on 12-04-2024 MCV (RBC) [Entitic vol] 90.3 fL 81-[address] [facility] MR/POSTOP.ANEon 12-04-2024 MR/POSTOP.ANE [facility] Medical Records Department [address] [place] [address] Anesthesia Postop Eval I 12/04/241456 MR#: [id number] Acct: [id number] Name: GERMANIA DONIS Rep #: [id number] : 1945 79 From: Pardeep Pierre MD PCP: Dr. Sowmya Cabrera MD Status:ADM IN Y Race: C Location: [place] [address]-1 Anesthesia: Postop Eval I Current Vital Signs [...] MD Cosign Signature: Date CC: Signed Normal [facility] MR/HHPFPRIG3qv 12-04-2024 [facility] Medical Records Department [address] [place] [address] Anesthesia Postop Eval II 12/04/241458 MR#: [id number] Acct: [id number] Name: GERMANIA DONIS Rep #: [id number] : 1945 79 From: Pardeep Pierre MD PCP: Dr. Sowmya Cabrera MD Status:ADM IN Y Race: C Location: [place] [id number] Anesthesia Postop Eval I Sum Postop Eval [...] MD Cosigner Signature: Date CC: Signed Normal [facility] Mean corpuscular hemoglobin (MCH) determinationOrdered By: Pardeep Naranjo on 12-04-2024 MCH (RBC) [Entitic mass] 29.7 pg 27.0-32.0 [facility] Mean corpuscular hemoglobin concentration (MCHC) determinationOrdered By: Pardeep Naranjo on 12-04-2024 MCHC (RBC) [Mass/Vol] 32.9 g/dL 32-36 [facility] Mean platelet volume determi nationOrdered By: Pardeep Naranjo on 12-04-2024 Platelet mean volume (Bld) [Entitic vol] 10.9 fL 6.2-12.0 [facility] Microscopic analysis of urin e for red blood cells (RBC)Ordered By: Pardeep Naranjo on 12-04-2024 Microscopic analysis of urine for red blood cells (RBC) 0 SEEN /hpf 0-5 [facility] Urine RBC 0 SEEN /hpf 0-5 [facility] Monocyte percentageOrdered B y: Pardeep Naranjo on 12-04-2024 Monocytes/100 WBC (Bld) 6.5 % 0-[address] [facility] Mucus LM Ql (Urine sed)Order ed By: Pardeep Naranjo on 12-04-2024 Mucus Ql (Urine sed) RARE /hpf [place] Neutrophil percentageOrdered By: Pardeep Naranjo on 12-04-2024 Neutrophils/100 WBC (Bld) 83.2 % High 47-70 [facility] Nitrite Test strip Ql (U)Ord ered By: Pardeep Naranjo on 12-04-2024 Nitrite Ql (U) Negative Negative [facility] Nucleated red blood cell per centageOrdered By: Pardeep Naranjo on 12-04-2024 Nucleated RBC/100 WBC (Bld) [Ratio] 0 % 0-5 [facility] Operative Reporton Operative Report [facility] Medical Records Department [address] [place] [address] Operative Report 12/04/24 1434 MR#: [id number] Acct: [id number] Name: GERMANIA DONIS Rep #: [id number] : 1945 79 From: Darrick Light MD PCP: Dr. 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 Using atraumatic graspers and a suction help desk operator device I bluntly teased a perforated small [...] field labeled small bowel. Then a standard tewo-pp-buod functional end-to-end small bowel anastomosis was created with a third firing of the GRACIE stapler. The common enterotomy was closed with a firing of a TX 60 stapler. The resulting staple line was largely hemostatic but was imbricated with a running 3-0 silk suture. Mesenteric defect was closed with a second running 3-0 silk suture. Finally a (more content not included)... Normal [facility] Platelet countOrdered By: Asher Naranjo on 12-04-2024 Platelets (Bld) [#/Vol] 182 10*3/uL 150-450 [facility] Potassium (Unsp spec) [Mass/ Vol]Ordered By: Pardeep Naranjo on 12-04-2024 Potassium [Moles/Vol] 4.5 mmol/L 3.3-5.1 [facility] Protein Test strip Ql (U)Ord ered By: Pardeep Naranjo on 12-04-2024 Protein Ql (U) 15 mg/dl High Negative [facility] RBC Auto (Bld) [#/Vol]Ordere d By: Pardeep Naranjo on 12-04-2024 RBC (Bld) [#/Vol] 4.11 10*6/uL Low 4.2-5.4 [facility] Serum creatinine measurement (mass/volume)Ordered By: Pardeep Naranjo on 12-04-2024 Creatinine [Mass/Vol] 0.72 mg/dL 0.70-1.20 [facility] Serum globulin measurementOr dered By: Pardeep Naranjo on 12-04-2024 Globulin (S) [Mass/Vol] 3.4 g/dL 2.2-4.[address] [facility] Serum glucose measurement (m ass/volume)Ordered By: Pardeep Naranjo on 12-04-2024 Glucose [Mass/Vol] 98 mg/dL 70-99 [facility] Serum or plasma alanine eastman otransferase (ALT) measurementOrdered By: Pardeep Naranjo on 12-04-2024 ALT [Catalytic activity/Vol] 32 U/L <35 [facility] Serum or plasma albumin demetrice urement (mass/volume)Ordered By: Pardeep Naranjo on 12-04-2024 Albumin [Mass/Vol] 3.5 g/dL 3.4-4.8 [facility] Serum or plasma alkaline dedrick sphatase measurementOrdered By: Pardeep Naranjo on 12-04-2024 ALP [Catalytic activity/Vol] 110 U/L High 35-104 [facility] Serum or plasma calcium demetrice urement (mass/volume)Ordered By: Pardeep Naranjo on 12-04-2024 Calcium [Mass/Vol] 9.0 mg/dL 7.6-11.0 [facility] Serum or plasma urea nitroge n measurement (mass/volume)Ordered By: Pardeep Naranjo on 12-04-2024 Urea nitrogen [Mass/Vol] 17 mg/dL 4-19 [facility] Sodium levelOrdered By: Kelvin Naranjo on 12-04-2024 Sodium [Moles/Vol] 135 mmol/L 133-145 [facility] Squamous epithelial cells de tection in urine sediment by light microscopyOrdered By: Pardeep Naranjo on 12-04-2024 Epithelial cells.squamous LM Ql (Urine sed) 0-5 SEEN /hpf 5-10 [facility] Surgery Specimen Level Von 0 12-04-2024 Surgery Specimen Level V ------- ---- Patient Age/Sex Location Account Attending Physician ---- GERMANIA DONIS 79/F MS3 [id number] Dr. Darrick Light MD ---- Specimen: [id number] Received: 12/06/24 Status: PEG Annalee Num: [id number] Spec Type: COLON Subm Dr: Dr. Darrick [...] No distinct mass-like lesion is grossly recognized. Experience Planning Strategist sections:A1-2. Opposing margins, en faceA3. Full-thickness section with transmural defectA4-5. Mucosa from outpouching and out-pouch to normal mucosa [facility] 12/13/2024 CPT:55380 ---- Patient Age/Sex Location Account Attending Physician ---- GERMANIA DONIS 79/F MS3 [id number] Dr. Darrick Light MD ---- Signed (signature on file) Dr. Prerna Rush MD 12/13/24 1407 ---- Normal [facility] Comment on above: Performed By: #### P SUV ####[facility] [address] [place], [place], [address] Total proteinOrdered By: Prosper Naranjo on 12-04-2024 Protein [Mass/Vol] 6.9 g/dL 5.9-8.4 [facility] Urinalysis, Completeon 12-04 BACTERIA 1+ /hpf Normal None Seen [facility] Comment on above: Order Comment: CLEAN CATCH Performed By: #### L 400.0001 ####[facility] [address] [place], [address] EPI,SQUAMOUS 0-5 SEEN Normal 5-10 [facility] Comment on above: Order Comment: CLEAN CATCH Performed By: #### L 400.0001 ####[facility] [address] [place], [address] Mucus Ql (Urine sed) RARE Normal [place] Comment on above: Order Comment: CLEAN CATCH Performed By: #### L 400.0001 ####[facility] [address] [place], [address] WBC 0-5 SEEN Normal 0-5 [facility] Comment on above: Order Comment: CLEAN CATCH Performed By: #### L 400.0001 ####[facility] [address] [place], [address] RBC 0 SEEN Normal 0-5 [facility] Comment on above: Order Comment: CLEAN CATCH Performed By: #### L 400.0001 ####[facility] [address] [place], [address] Urine blood detectionOrdered By: Pardeep Naranjo on 12-04-2024 Urine Occult Blood Negative Negative [facility] Urine clarityOrdered By: Prosper Naranjo on 12-04-2024 Clarity (U) Sl. Cloudy Clear [facility] Urine color determinationOrd ered By: Pardeep Naranjo on 12-04-2024 Color (U) Yellow Yellow [facility] Urine glucose detectionOrder ed By: Pardeep Naranjo on 12-04-2024 Glucose Ql (U) Normal mg/dl Normal [facility] Urine leukocyte esterase det ection by dipstickOrdered By: Pardeep Naranjo on 12-04-2024 Leukocyte esterase Test strip Ql (U) 25 /ul High Negative [facility] Urine pHOrdered By: Pardeep washburn on 12-04-2024 pH (U) 6.0 [pH] 5.0 - 8.0 [facility] Urine sediment bacteria coun t by microscopy (number/high power field)Ordered By: Pardeep Naranjo on 12-04-2024 Bacteria LM.HPF (Urine sed) [#/Area] 1 /[HPF] None Seen [facility] Urine specific gravity measu rementOrdered By: Pardeep Naranjo on 12-04-2024 Specific gravity (U) [Rel density] 1.010 1.002-1.030 [facility] Urine urobilinogen measureme ntOrdered By: Pardeep Naranjo on 12-04-2024 Urobilinogen Ql (U) Normal mg/dl Normal [facility] Urobilinogen Ql (U)Ordered B y: Pardeep Naranjo on 12-04-2024 Urine Urobilinogen Normal mg/dl Normal [place] White blood cell (WBC) count Ordered By: Pardeep Naranjo on 12-04-2024 WBC (Bld) [#/Vol] 7.4 10*3/uL 4.4-11.0 [facility] White blood cell countOrdere d By: Pardeep Naranjo on 12-04-2024 Urine WBC 0-5 SEEN /hpf 0-5 [facility] White blood cell count 0-5 SEEN /hpf 0-5 [facility] Surgery Visit Reporton 11-19 Surgery Visit Report [facility] [address] [place] [address] OFFICE VISIT Date of Service: 11/19/24 MR#: [id number] Acct: [id number] Name: GERMANIA DONIS Rep #: [id number] : 1945 Provider: Dr. Shelly louise MD Age/Sex: 79/F Location: [facility] Status: Signed Intake Vital Signs 11/04/24 06:19 [...] 100 mcg PO QDAY 09/27/24 11/04/24 History lihnaozu-xkbjagbt-qzub c acid 240 1 tab PO DAILY 09/27/24 11/04/24 H istory mcg-vit K1 150 mcg-herb 357 tablet (Alive Women's 50 Plus Ultra Multivitamin) vitamins A,C,L-ezfk-rqdwjz 4,296 1 cap PO BID 09/27/24 11/04/24 [...] S/P umbilical hernia repair, follow-up exam Z09 [facility] Medical History (Updated 11/19/24 @ 10:14 by [...] is agreeable plan. Shelly Leonard M.D. Pager: [phone] [facility] [address] [place] [address], [address] [place] [address] Office: [phone] 11/22/24 0758 Date Shelly Leonard MD [facility] Signature: Date (if applicable) CC: Dr. Sowmya Cabrera MD Normal [facility] Discharge Instructionon 10-23 Discharge Instruction [facility] Medical Records Department [address] [place] [address] Instructions for Home/Discharge Instructions 11/04/24 0808 MR#: [id number] Acct: [id number] Name: GERMANIA DONIS Rep #: [id number] : 1945 79 From: Shelly Leonard MD PCP: Dr. Sowmya Cabrera MD Status:REG [facility] Discharge Instructions Diet Discharge Diet: Light diet [...] 5 PM and on the weekends call [phone] with any concerns. Test Results: Test results [...] the other half the bottle. Print Language: Chilean Discharge Orders/Prescriptions Prescriptions: New oxycodone 5 mg [...] CC: Dr. Sowmya Cabrera MD Signed Normal [facility] H AND P Exam - Surgicalon H&P Exam - Surgical [facility] Medical Records Department [address] [place] [address] H P Exam - Surgical 11/04/24 0717 MR#: [id number] Acct: [id number] Name: GERMANIA DONIS Rep #: [id number] : 1945 79 From: Shelly Leonard MD PCP: Dr. Sowmya Cabrera MD Status:[facility] Location: [place] [address] HPI - General General Date of Service: [...] it repaired. Patient denies any abdominal surgeries. [facility] Medical History Wears glasses Wears partial dentures [...] 100 mcg PO QDAY 09/27/24 11/03/24 History peuirmek-gklbluxv-twnr c acid 240 1 tab PO DAILY 09/27/24 11/03/24 H istory mcg-vit K1 150 mcg-herb 357 tablet (Alive Women's 50 Plus Ultra Multivitamin) vitamins A,C,F-ueez-kmvzvh 4,296 1 cap PO BID 09/27/24 11/03/24 [...] further questions time. Shelly Leonard M.D. Pager: [phone] [facility] [address] [place] [address] [place] [address] Office: [phone] 11/04/24 0719 Cosigner Signature (if applicable): CC: Dr. Sowmya Cabrera MD; Dr. Shelly Leonard MD Signed Normal [facility] MR/POSTOP.Tk 11-04-2024 MR/POSTOP.[facility] Medical Records Department [address] [place] [address] Anesthesia Postop Eval I 11/04/24 0833 MR#: [id number] Acct: [id number] Name: GERMANIA DONIS Rep #: [id number] : 1945 79 From: Cyrus Leung CRNA PCP: Dr. Sowmya Cabrera MD Status:REG [facility] Y Race: C Location: [place] [address] Anesthesia: Postop Eval I Current Vital Signs [...] 1 completed: Yes 11/04/24939 Date Cyrus Leung TOWER CONTROL OPERATOR Cosigner Signature: Date CC: Signed Normal [facility] MR/RSMRMPYS5oi 11-04-2024 [facility] Medical Records Department [address] [place] [address] Anesthesia Postop Eval II 11/04/24 1122 MR#: [id number] Acct: [id number] Name: GERMANIA DONIS Rep #: [id number] : 1945 79 From: Man Link MD PCP: Dr. Sowmya Cabrera MD Status:[facility] Y Race: C Location: [facility] Anesthesia Postop Eval I Sum Postop Eval Completion status Anesthesia document: Postop Eval 1 completed: Yes Anesthesia Postop Eval I Summary Anesthesia Postop Eval I Summary: Anesthesia Postop Eval I: Assessment Summary Airway patent Yes 11/04/24 09:40 TOWER CONTROL OPERATOR.ACAR Spontaneous unlabored Yes 11/04/24 09:40 TOWER CONTROL OPERATOR.ACAR respirations Mental status nausea No 11/04/24 09:40 TOWER CONTROL OPERATOR.ACAR Vomiting No 11/04/24 09:40 TOWER CONTROL OPERATOR.ACAR Anesthesia Postop Eval I: Fluid Summary Crystalloid volume administer 1,000 11/04/24 09:40 TOWER CONTROL OPERATOR.ACAR (ml) Colloids volume administered ( ml) Blood Product volume administered (ml) Total IV fluid infused 1,000 11/04/24 09:40 TOWER CONTROL OPERATOR.ACAR Anesthesia Postop Eval I: Summary Notes Anesthesia Complication No 11/04/24 09:40 TOWER CONTROL OPERATOR.ACAR Anesthesia Complication Comment: Post-operative progress note Anesthesia: Postop Eval II Evaluation Mental status: Awake Pain Level: 0 nausea: No Vomiting: No Complications Anesthesia Complication: No 11/04/24 1123 Date Man Jain Signature: Date CC: Signed Normal [facility] Operative Reporton 5 Operative Report [facility] Medical Records Department [address] [place] [address] Operative Report 11/04/24 0805 MR#: [id number] Acct: [id number] Name: GERMANIA DONIS Rep #: [id number] : 1945 79 From: Shelly Leonard MD PCP: Dr. Sowmya Cabrera MD Status:[facility] Location: [place] [address] Operative Report (Standard) Operative Information Date of Procedure: 11/04/24 Pre-Operative Diagnosis: Umbilical hernia Post-Operative Diagnosis: Same Surgery/Procedure Performed: Umbilical hernia repair with mesh clearing house clerk: Yes Legal Mediator: Timoteo Ruiz Tasks completed by certified surgical first assistant: Opening closing Type of Anesthesia: General/Supplemental [...] hernia patch 4.3 cm in diameter, Lot [id number] ref [id number] Special Medications: Ancef 2 g IV x [...] The hernia defect was closed with a twgpku-on-xqzgy 0 Nurolon. The wound was irrigated with [...] MD; Dr. Shelly Leonard MD Signed Normal [facility] TSH DL <= 0.005 mIU/L QnOrde red By: Tito Dexter on 10-28-2024 Thyroid Stimulating Hormone (TSH) 2.500 uIU/mL 0.300-4.200 [facility] TSH Qn 2.500 uIU/mL 0.300-4.200 [facility] Thyroid Stim Hormone (TSH)on 10-28-2024 TSH 2.500 uIU/mL Normal 0.300-4.200 [facility] Comment on above: Performed By: #### L 501.9520 ####[facility] [address] [place], [place], [address] Spine Cervical (Routine)on 0 10-04-2024 Spine Cervical (Routine) [facility] Imaging Services [address] [place] [address] Spine Cervical (Routine) MR#: [id number] Acct: [id number] Name: GERMANIA DONIS Rep #: [id number] : 1945 F 79 From: [facility] PCP: Dr. Sowmya Cabrera MD Status: REG CLI Study: Spine Cervical (Routine) Date of Exam: Exam# [id number] Ordering Dr: Sowmya Cabrera PROCEDURE: SPINE CERVICAL [...] changes are present with severe left and xakc-wq-hvrzoite right neural foraminal narrowing. 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 Facet/uncovertebral changes are present with severe left and cged-me-wjgeqxhw right neural foraminal narrowing. C6-7: Disc osteophyte [...] Location: [place] CC: Dr. Sowmya Cabrera MD Teletype Mechanic: Signed Normal [facility] Surgery Visit Reporton 09-27 Surgery Visit Report [facility] [address] [place] [address]. [address] [place] [address] OFFICE VISIT Date of Service: 09/27/24 MR#: [id number] Acct: [id number] Name: GERMANIA DONIS Rep #: [id number] : 1945 Provider: Dr. Shelly louise MD Age/Sex: 79/F Location: [facility] Status: Signed Intake Vital Signs 09/07/20 14:15 [...] 100 mcg PO QDAY 09/27/24 09/27/24 History vmtsefqi-pjhihjlw-qyky c acid 240 tab PO 09/27/24 09/27/24 History mcg-vit K1 150 mcg-herb 357 tablet (Alive Women's 50 Plus Ultra Multivitamin) valacyclovir 1 gram tablet 1,000 mg PO TID 09/27/24 09/27/24 History vitamins A,C,S-tgxm-ncwuac 4,296 1 cap PO BID 09/27/24 09/27/24 [...] healthy appearing, comfortable and no acute distress [facility] Head: normocephalic and atraumatic Neck Neck: [...] Status: Acute (more content not included)... Normal [facility] Re-Evaluation - PT (1)on Re-Evaluation - PT (1) [facility] Physical Therapy [address] [place] [address] / REEVALUATION / MEDICARE RECERTIFICATION PHYSICAL THERAPY MR#: [id number] Acct: [id number] Name: GERMANIA DONIS Rep #: [id number] : 1945 79 From: Sary Mejia PT, Cert. MDT Referring Dr.: Dr. Lex Rhoades MD Status:REG RCR Insurance: MEDICARE PART A B [facility] Re-Evaluation Intro: Lex Rhoades MD, It has [...] 3+/5. R ELBOW 5/5 L 5/5. R INTENSIVE CARE MEDICINE SPECIALIST STRENGTH 35 LBS L 32 LBS . [...] do not hesitate to contact me at [phone] by phone or if you have questions or concerns regarding this new plan of care! Sincerely, Sary Mejia, PT, Cert MDT 08/12/24 1204 CC: Dr. Lex Rhoades MD; Dr. Sowmya Cabrera MD ALBARO Signed For Medicare only, by signing this I certify the plan of care. Physicians Signature Date Normal [facility] ANTINUCLEAR ANTIBODIES DIREC Ton 07-23-2024 MARYBETH,DIRECT Negative Normal Negative [facility] Comment on above: Order Comment: Order Date: 07/20/24Order Info: [id number] - MARYBETH Result Comment: Perf ormed at: [facility] [address] [place], [place] [id number] [employer]: Wilder Araya PhD, Phone: [phone] Performed By: #### L 503.6550, L500.4050, L501.5200, L3100.5475, L100.0100, L503.6150, L503.0105, L501.9520, L101.9900 ####[facility] [address] [place], [place], [id number] MARYBETH serumOrdered By: Yogi Cabrera on 07-20-2024 Anti-Nuclear Antibody Screen Negative Negative [facility] Comment on above: Performed at: [facility] [address] [place], [place] [id number] Director: Wilder Araya PhD, Phone: [phone] Absolute neutrophil countOrd ered By: Sowmya Cabrera on 07-20-2024 Neutrophils (Bld) [#/Vol] 3.2 10*3/uL 2.0-7.7 [facility] Albumin to globulin ratioOrd ered By: Sowmya Cabrera on 07-20-2024 Albumin/Globulin [Mass ratio] 1.1 {ratio} 0.9-2.4 [facility] Basophil percentageOrdered B y: Sowmya Cabrera on 07-20-2024 Basophils/100 WBC (Bld) 0.4 % 0-[address] [facility] Bilirubin, totalOrdered By: Sowmya Cabrera on 07-20-2024 Bilirubin [Mass/Vol] 0.60 mg/dL 0.20-1.00 [place] Comment on above: For patients on eltr ombopag therapy, use of Dimension [place] TBIL is not recommended. Blood urea nitrogen (BUN)/cr eatinine ratioOrdered By: Sowmya Cabrera on 07-20-2024 Urea nitrogen/Creatinine [Mass ratio] 22.2 mg/mg High - [facility] CBC W/Diff, Automatedon 06-26 Absolute Lymph 0.91 X10 3/uL Normal 0.83-4.51 [facility] Comment on above: Order Comment: Order Date: 07/20/24Order Info: 183-08 - CBCDOrder Info: [id number] - SED Performed By: #### L 503.6550, L500.4050, L501.5200, L3100.5475, L100.0100, L503.6150, L503.0105, L501.9520, L101.9900 ####[facility] [address] [place], [address] Absolute Neut 3.2 X10 3/uL Normal 2.0-7.7 [facility] Comment on above: Order Comment: Order Date: 07/20/24Order Info: 183-08 - CBCDOrder Info: [id number] - SED Performed By: #### L 503.6550, L500.4050, L501.5200, L3100.5475, L100.0100, L503.6150, L503.0105, L501.9520, L101.9900 ####[facility] [address] [place], [address] Basophils/100 WBC (Bld) 0.4 % Normal 0-1 [facility] Comment on above: Order Comment: Order Date: 07/20/24Order Info: 183-08 - CBCDOrder Info: [id number] - SED Performed By: #### L 503.6550, L500.4050, L501.5200, L3100.5475, L100.0100, L503.6150, L503.0105, L501.9520, L101.9900 ####[facility] [address] [place], [address] Eosinophils/100 WBC (Bld) 1.3 % Normal 0-5 [facility] Comment on above: Order Comment: Order Date: 07/20/24Order Info: 183-08 - CBCDOrder Info: 08163-8 - SED Performed By: #### L 503.6550, L500.4050, L501.5200, L3100.5475, L100.0100, L503.6150, L503.0105, L501.9520, L101.9900 ####[facility] [address] [place], [address] Erythrocyte distribution width (RBC) [Ratio] 13.4 % Normal 11.6-14.6 [facility] Comment on above: Order Comment: Order Date: 07/20/24Order Info: 183-08 - CBCDOrder Info: 48707-1 - SED Performed By: #### L 503.6550, L500.4050, L501.5200, L3100.5475, L100.0100, L503.6150, L503.0105, L501.9520, L101.9900 ####[facility] [address] [place], [place], [phone](042) Hematocrit (Bld) [Volume fraction] 39.4 % Normal 37-47 [facility] Comment on above: Order Comment: Order Date: 07/20/24Order Info: 183-08 - CBCDOrder Info: 03072-8 - SED Performed By: #### L 503.6550, L500.4050, L501.5200, L3100.5475, L100.0100, L503.6150, L503.0105, L501.9520, L101.9900 ####[facility] [address] [place], [address] Hemoglobin (Bld) [Mass/Vol] 12.8 g/dL Normal 12.0-15.0 [facility] Comment on above: Order Comment: Order Date: 07/20/24Order Info: 183-08 - CBCDOrder Info: [id number] - SED Performed By: #### L 503.6550, L500.4050, L501.5200, L3100.5475, L100.0100, L503.6150, L503.0105, L501.9520, L101.9900 ####[facility] [address] [place], [address] IG% 0.400 Normal 0.0-0.9 [facility] Comment on above: Order Comment: Order Date: 07/20/24Order Info: 183-08 - CBCDOrder Info: 73275-8 - SED Result Comment: IG% - Immature Granulocytes (promyelocytes, myelocytes and metamyelocytes) > 1% indicates that a LEFT SHIFT is Present. Performed By: #### L 503.6550, L500.4050, L501.5200, L3100.5475, L100.0100, L503.6150, L503.0105, L501.9520, L101.9900 ####[facility] [address] [place], [address] Lymphocytes/100 WBC (Bld) 20.0 % Normal 19-41 [facility] Comment on above: Order Comment: Order Date: 07/20/24Order Info: 183-08 - CBCDOrder Info: [id number] - SED Performed By: #### L 503.6550, L500.4050, L501.5200, L3100.5475, L100.0100, L503.6150, L503.0105, L501.9520, L101.9900 ####[facility] [address] [place], [address] MCH (RBC) [Entitic mass] 30.2 pg Normal 27.0-32.0 [facility] Comment on above: Order Comment: Order Date: 07/20/24Order Info: 183-08 - CBCDOrder Info: 97320-1 - SED Performed By: #### L 503.6550, L500.4050, L501.5200, L3100.5475, L100.0100, L503.6150, L503.0105, L501.9520, L101.9900 ####[facility] [address] [place], [address] MCHC (RBC) [Mass/Vol] 32.5 g/dL Normal 32-36 [facility] Comment on above: Order Comment: Order Date: 07/20/24Order Info: 018- - CBCDOrder Info: 12542-9 - SED Performed By: #### L 503.6550, L500.4050, L501.5200, L3100.5475, L100.0100, L503.6150, L503.0105, L501.9520, L101.9900 ####[facility] [address] [place], [address] MCV (RBC) [Entitic vol] 92.9 fL Normal 81-99 [facility] Comment on above: Order Comment: Order Date: 07/20/24Order Info: 183-08 - CBCDOrder Info: 47410-4 - SED Performed By: #### L 503.6550, L500.4050, L501.5200, L3100.5475, L100.0100, L503.6150, L503.0105, L501.9520, L101.9900 ####[facility] [address] [place], [address] Monocytes/100 WBC (Bld) 8.1 % Normal 0-10 [facility] Comment on above: Order Comment: Order Date: 07/20/24Order Info: 018- - CBCDOrder Info: 39179-8 - SED Performed By: #### L 503.6550, L500.4050, L501.5200, L3100.5475, L100.0100, L503.6150, L503.0105, L501.9520, L101.9900 ####[facility] [address] [place], [address] Neutrophils/100 WBC (Bld) 69.8 % Normal 47-70 [facility] Comment on above: Order Comment: Order Date: 07/20/24Order Info: 01811-23 - CBCDOrder Info: 80201-1 - SED Performed By: #### L 503.6550, L500.4050, L501.5200, L3100.5475, L100.0100, L503.6150, L503.0105, L501.9520, L101.9900 ####[facility] [address] [place], [address] Nucleated RBC (Bld) [#/Vol] 0 10*3/uL Normal 0-5 [facility] Comment on above: Order Comment: Order Date: 07/20/24Order Info: 183-08 - CBCDOrder Info: 06965-3 - SED Performed By: #### L 503.6550, L500.4050, L501.5200, L3100.5475, L100.0100, L503.6150, L503.0105, L501.9520, L101.9900 ####[facility] [address] [place], [address] Platelet mean volume (Bld) [Entitic vol] 12.0 fL Normal 6.2-12.0 [facility] Comment on above: Order Comment: Order Date: 07/20/24Order Info: 183-08 - CBCDOrder Info: 74433-6 - SED Performed By: #### L 503.6550, L500.4050, L501.5200, L3100.5475, L100.0100, L503.6150, L503.0105, L501.9520, L101.9900 ####[facility] [address] [place], [address] Platelets (Bld) [#/Vol] 216 10*3/uL Normal 150-450 [facility] Comment on above: Order Comment: Order Date: 07/20/24Order Info: 183-08 - CBCDOrder Info: 27217-3 - SED Performed By: #### L 503.6550, L500.4050, L501.5200, L3100.5475, L100.0100, L503.6150, L503.0105, L501.9520, L101.9900 ####[facility] [address] [place], [address] RBC (Bld) [#/Vol] 4.24 10*6/uL Normal 4.2-5.4 [facility] Comment on above: Order Comment: Order Date: 07/20/24Order Info: 183-1 - CBCDOrder Info: 09228-9 - SED Performed By: #### L 503.6550, L500.4050, L501.5200, L3100.5475, L100.0100, L503.6150, L503.0105, L501.9520, L101.9900 ####[facility] [address] [place], [address] RDW SD 45.4 fl High 35.1-43.9 [facility] Comment on above: Order Comment: Order Date: 07/20/24Order Info: 183- - CBCDOrder Info: 08951-9 - SED Performed By: #### L 503.6550, L500.4050, L501.5200, L3100.5475, L100.0100, L503.6150, L503.0105, L501.9520, L101.9900 ####[facility] [address] [place], [address] WBC (Bld) [#/Vol] 4.6 10*3/uL Normal 4.4-11.0 [facility] Comment on above: Order Comment: Order Date: 07/20/24Order Info: 018-1 - CBCDOrder Info: 19194-2 - SED Performed By: #### L 503.6550, L500.4050, L501.5200, L3100.5475, L100.0100, L503.6150, L503.0105, L501.9520, L101.9900 ####[facility] [address] [place], [address] Carbon dioxide measurementOr dered By: Sowmya Cabrera on 07-20-2024 CO2 [Moles/Vol] 30.0 mmol/L 21.0-32.0 [facility] Cerv Spine 4 or 5 Viewson Cerv Spine 4 or 5 Views [facility] Imaging Services [address] [place] [address] Cerv Spine 4 or 5 Views MR#: [id number] Acct: [id number] Name: GERMANIA DONIS Rep #: [id number] : 1945 F 79 From: Katie Lara PCP: Dr. Sowmya Cabrera MD Status: [facility] Study: Cerv Spine 4 or 5 Views Date of Exam: 07/20/24 Exam# [id number] Ordering Dr: Sowmya Cabrera [id number] INDICATION: pain, bilateral shoulder pain EXAMINATION/TECHNIQUE: X-RAY [...] EST , CC: Dr. Sowmya Cabrera MD Teletype Mechanic: Signed Normal [facility] Chloride measurementOrdered By: Sowmya Cabrera on 07-20-2024 Chloride [Moles/Vol] 108 mmol/L High 98-107 [place] Comprehensive Metabolic Prof ilon 07-20-2024 Albumin [Mass/Vol] 3.7 g/dL Normal 3.2-5.0 [facility] Comment on above: Order Comment: Order Date: 07/20/24Order Info: 0786- - CMPOrder Info: - MGOrder Info: 3015-10 - TSHOrder Info: 2497-11 - FEOrder Info: 2275-11 - REHAN Performed By: #### L 503.6550, L500.4050, L501.5200, L3100.5475, L100.0100, L503.6150, L503.0105, L501.9520, L101.9900 ####[facility] [address] [place], [address] Albumin/Globulin [Mass ratio] 1.1 {ratio} Normal 0.9-2.4 [facility] Comment on above: Order Comment: Order Date: 07/20/24Order Info: 0786- - CMPOrder Info: - MGOrder Info: 3015-10 - TSHOrder Info: 2497-11 - FEOrder Info: 2275-11 - REHAN Performed By: #### L 503.6550, L500.4050, L501.5200, L3100.5475, L100.0100, L503.6150, L503.0105, L501.9520, L101.9900 ####[facility] [address] [place], [address] ALK P 96 U/L Normal 45-117 [facility] Comment on above: Order Comment: Order Date: 07/20/24Order Info: 07-1 - CMPOrder Info: [id number] - MGOrder Info: 3 - TSHOrder Info: [id number] - FEOrder Info: 2275-4 - REHAN Performed By: #### L 503.6550, L500.4050, L501.5200, L3100.5475, L100.0100, L503.6150, L503.0105, L501.9520, L101.9900 ####[facility] [address] [place], [address] ALT [Catalytic activity/Vol] 30 U/L Normal 13-56 [facility] Comment on above: Order Comment: Order Date: 07/20/24Order Info: 785-1 - CMPOrder Info: [id number] - MGOrder Info: 3 - TSHOrder Info: 2497-11 - FEOrder Info: 2275-11 - REHAN Performed By: #### L 503.6550, L500.4050, L501.5200, L3100.5475, L100.0100, L503.6150, L503.0105, L501.9520, L101.9900 ####[facility] [address] [place], [place], [phone]) AST [Catalytic activity/Vol] 32 U/L Normal 15-37 [facility] Comment on above: Order Comment: Order Date: 07/20/24Order Info: 785-1 - CMPOrder Info: 02609-7 - MGOrder Info: 3 - TSHOrder Info: [id number] - FEOrder Info: 2275-4 - REHAN Performed By: #### L 503.6550, L500.4050, L501.5200, L3100.5475, L100.0100, L503.6150, L503.0105, L501.9520, L101.9900 ####[facility] [address] [place], [place], [phone]) Bilirubin [Mass/Vol] 0.60 mg/dL Normal 0.20-1.00 [place] Comment on above: Order Comment: Order Date: 07/20/24Order Info: 785-1 - CMPOrder Info: 19715-0 - MGOrder Info: 3015-10 - TSHOrder Info: 2497-11 - FEOrder Info: 2275-11 - REHAN Result Comment: For patients on eltrombopag therapy, use of Dimension [place] TBIL is not recommended. Performed By: #### L 503.6550, L500.4050, L501.5200, L3100.5475, L100.0100, L503.6150, L503.0105, L501.9520, L101.9900 ####[facility] [address] [place], [place], [phone] BUN/CRE 22.2 RATIO High 10-20 [facility] Comment on above: Order Comment: Order Date: 07/20/24Order Info: 785-08 - CMPOrder Info: 30781-2 - MGOrder Info: 3015-10 - TSHOrder Info: 2497-11 - FEOrder Info: 2275-11 - REHAN Performed By: #### L 503.6550, L500.4050, L501.5200, L3100.5475, L100.0100, L503.6150, L503.0105, L501.9520, L101.9900 ####[facility] [address] [place], [place], [address] CA,Total 9.3 mg/dL Normal 8.5-10.1 [facility] Comment on above: Order Comment: Order Date: 07/20/24Order Info: 785- - CMPOrder Info: 34411-2 - MGOrder Info: 3015-10 - TSHOrder Info: 2497-11 - FEOrder Info: 2275-11 - REHAN Performed By: #### L 503.6550, L500.4050, L501.5200, L3100.5475, L100.0100, L503.6150, L503.0105, L501.9520, L101.9900 ####[facility] [address] [place], [address] Chloride [Moles/Vol] 108 mmol/L High 98-107 [place] Comment on above: Order Comment: Order Date: 07/20/24Order Info: 785-1 - CMPOrder Info: 10134-9 - MGOrder Info: 3 - TSHOrder Info: 2497-11 - FEOrder Info: 2275-11 - REHAN Performed By: #### L 503.6550, L500.4050, L501.5200, L3100.5475, L100.0100, L503.6150, L503.0105, L501.9520, L101.9900 ####[facility] [address] [place], [address] CO2 [Moles/Vol] 30.0 mmol/L Normal 21.0-32.0 [facility] Comment on above: Order Comment: Order Date: 07/20/24Order Info: 785-08 - CMPOrder Info: 62210-2 - MGOrder Info: 3015-10 - TSHOrder Info: 2497-11 - FEOrder Info: 2275-11 - REHAN Performed By: #### L 503.6550, L500.4050, L501.5200, L3100.5475, L100.0100, L503.6150, L503.0105, L501.9520, L101.9900 ####[facility] [address] [place], [address] Creatinine [Mass/Vol] 0.68 mg/dL Normal 0.55-1.02 [facility] Comment on above: Order Comment: Order Date: 07/20/24Order Info: 785-08 - CMPOrder Info: 69849-6 - MGOrder Info: 3 - TSHOrder Info: 2497-11 - FEOrder Info: 2275-11 - REHAN Result Comment: The validity of the calculated GFR GFRAA in patients over 70 years has not been determined. Clinical correlation is essential. Performed By: #### L 503.6550, L500.4050, L501.5200, L3100.5475, L100.0100, L503.6150, L503.0105, L501.9520, L101.9900 ####[facility] [address] [place], [place], [id number] EST GFR - AA 109 mL/min Normal >60 [facility] Comment on above: Order Comment: Order Date: 07/20/24Order Info: 785- - CMPOrder Info: - MGOrder Info: 3015-10 - TSHOrder Info: 2497-11 - FEOrder Info: 2275-11 - REHAN Result Comment: Afri can [place] GFR Calc Performed By: #### L 503.6550, L500.4050, L501.5200, L3100.5475, L100.0100, L503.6150, L503.0105, L501.9520, L101.9900 ####[facility] [address] [place], [place], [address] GAP 3 Low 5-15 [facility] Comment on above: Order Comment: Order Date: 07/20/24Order Info: 785-08 - CMPOrder Info: - MGOrder Info: 3015-10 - TSHOrder Info: [id number] - FEOrder Info: 2275-11 - REHAN Performed By: #### L 503.6550, L500.4050, L501.5200, L3100.5475, L100.0100, L503.6150, L503.0105, L501.9520, L101.9900 ####[facility] [address] [place], [place], [address] GFR/1.73 sq M.predicted among non-blacks MDRD (S/P/Bld) [Vol rate/Area] 90 mL/min/{1.73_m2} Normal >60 [facility] Comment on above: Order Comment: Order Date: 07/20/24Order Info: 785- - CMPOrder Info: - MGOrder Info: 3015-10 - TSHOrder Info: 2497-11 - FEOrder Info: 2275-11 - REHAN Result Comment: Non- GFR Calc Performed By: #### L 503.6550, L500.4050, L501.5200, L3100.5475, L100.0100, L503.6150, L503.0105, L501.9520, L101.9900 ####[facility] [address] [place], [address] Globulin (S) [Mass/Vol] 3.5 g/dL Normal 2.2-4.2 [facility] Comment on above: Order Comment: Order Date: 07/20/24Order Info: 785-08 - CMPOrder Info: - MGOrder Info: 3015-10 - TSHOrder Info: 2497-11 - FEOrder Info: 2275-11 - REHAN Performed By: #### L 503.6550, L500.4050, L501.5200, L3100.5475, L100.0100, L503.6150, L503.0105, L501.9520, L101.9900 ####[facility] [address] [place], [address] Glucose [Mass/Vol] 91 mg/dL Normal 74-106 [facility] Comment on above: Order Comment: Order Date: 07/20/24Order Info: 785-08 - CMPOrder Info: - MGOrder Info: 3015-10 - TSHOrder Info: 2497-11 - FEOrder Info: 2275-11 - REHAN Performed By: #### L 503.6550, L500.4050, L501.5200, L3100.5475, L100.0100, L503.6150, L503.0105, L501.9520, L101.9900 ####[facility] [address] [place], [address] Potassium [Moles/Vol] 3.7 mmol/L Normal 3.5-5.1 [facility] Comment on above: Order Comment: Order Date: 07/20/24Order Info: 07-1 - CMPOrder Info: 88964-5 - MGOrder Info: 3 - TSHOrder Info: [id number] - FEOrder Info: 2275-4 - REHAN Performed By: #### L 503.6550, L500.4050, L501.5200, L3100.5475, L100.0100, L503.6150, L503.0105, L501.9520, L101.9900 ####[facility] [address] [place], [address] Sodium [Moles/Vol] 141 mmol/L Normal 136-145 [facility] Comment on above: Order Comment: Order Date: 07/20/24Order Info: [id number] - CMPOrder Info: [id number] - MGOrder Info: 3 - TSHOrder Info: [id number] - FEOrder Info: [id number] - REHAN Performed By: #### L 503.6550, L500.4050, L501.5200, L3100.5475, L100.0100, L503.6150, L503.0105, L501.9520, L101.9900 ####[facility] [address] [place], [place], [id number]) T PROT 7.2 g/dL Normal 6.4-8.2 [facility] Comment on above: Order Comment: Order Date: 07/20/24Order Info: 07- - CMPOrder Info: [id number] - MGOrder Info: 3 - TSHOrder Info: [id number] - FEOrder Info: 227-4 - REHAN Performed By: #### L 503.6550, L500.4050, L501.5200, L3100.5475, L100.0100, L503.6150, L503.0105, L501.9520, L101.9900 ####[facility] [address] [place], [place], [phone] Urea nitrogen [Mass/Vol] 15 mg/dL Normal 7-18 [facility] Comment on above: Order Comment: Order Date: 07/20/24Order Info: [id number] - CMPOrder Info: [id number] - MGOrder Info: [id number] - TSHOrder Info: [id number] - FEOrder Info: [id number] - REHAN Performed By: #### L 503.6550, L500.4050, L501.5200, L3100.5475, L100.0100, L503.6150, L503.0105, L501.9520, L101.9900 ####[facility] [address] [place], [place], [phone] Eosinophil percentageOrdered By: Sowmya Cabrera on 07-20-2024 Eosinophils/100 WBC (Bld) 1.3 % 0-5 [facility] Erythrocyte Sed Rateon 07-20 SED RATE 20 mm/hr Normal 0-30 [facility] Comment on above: Order Comment: Order Date: 07/20/24Order Info: [id number] - CBCDOrder Info: [id number] - SED Performed By: #### L 503.6550, L500.4050, L501.5200, L3100.5475, L100.0100, L503.6150, L503.0105, L501.9520, L101.9900 ####[facility] [address] [place], [place], [phone] Erythrocyte distribution wid th ratioOrdered By: Sowmya Cabrera on 07-20-2024 Erythrocyte distribution width (RBC) [Ratio] 13.4 % 11.6-14.6 [facility] Erythrocyte distribution wid th standard deviationOrdered By: Sowmya Cabrera on 07-20-2024 Erythrocyte distribution width (RBC) [Entitic vol] 45.4 fL High 35.1-43.9 [facility] Erythrocyte sedimentation ra teOrdered By: Sowmya Cabrera on 07-20-2024 ESR (Bld) [Velocity] 20 mm/h 0-30 [place] Estimated glomerular filtrat ion rate (GFR) AmericanOrdered By: Sowmya Cabrera on 07-20-2024 Estimated GFR (MDRD) Amer 109 mL/min >60 [facility] Comment on above: GFR Calc Ferritinon 07-20-2024 Ferritin [Mass/Vol] 125 ng/mL Normal [facility] Comment on above: Order Comment: Order Date: 07/20/24Order Info: [id number] - CMPOrder Info: [id number] - MGOrder Info: [id number] - TSHOrder Info: [id number] - FEOrder Info: [id number] - REHAN Performed By: #### L 503.6550, L500.4050, L501.5200, L3100.5475, L100.0100, L503.6150, L503.0105, L501.9520, L101.9900 ####[facility] [address] [place], [address] Ferritin measurementOrdered By: Sowmya Cabrera on 07-20-2024 Ferritin [Mass/Vol] 125 ng/mL [facility] Glomerular filtration rate ( GFR) estimationOrdered By: Sowmya Cabrera on 07-20-2024 Estimated GFR (MDRD) Non-Af Amer 90 mL/min >60 [facility] Comment on above: Non- GFR Calc Glucose measurementOrdered B y: Sowmya Cabrera on 07-20-2024 Glucose [Mass/Vol] 91 mg/dL 74-106 [facility] Hematocrit Auto (Bld) [Volum e fraction]Ordered By: Sowmya Cabrera on 07-20-2024 Hematocrit (Bld) [Volume fraction] 39.4 % 37-47 [facility] Hemoglobin measurementOrdere d By: Sowmya Cabrera on 07-20-2024 Hemoglobin (Bld) [Mass/Vol] 12.8 g/dL 12.0-15.0 [facility] Immature granulocytes/100 WB C Auto (Bld)Ordered By: Sowmya Cabrera on 07-20-2024 Immature granulocytes/100 WBC (Bld) 0.400 % 0.0-0.9 [facility] Comment on above: IG% - Immature Granu locytes (promyelocytes, myelocytes and metamyelocytes) > 1% indicates that a LEFT SHIFT is Present. Ironon 07-20-2024 Iron [Mass/Vol] 38 ug/dL Low 50-170 [facility] Comment on above: Order Comment: Order Date: 07/20/24Order Info: [id number] - CMPOrder Info: - MGOrder Info: [id number] - TSHOrder Info: [id number] - FEOrder Info: [id number] - REHAN Performed By: #### L 503.6550, L500.4050, L501.5200, L3100.5475, L100.0100, L503.6150, L503.0105, L501.9520, L101.9900 ####[facility] [address] [place], [address] Iron (Unsp spec) [Mass/Mass] Ordered By: Sowmya Cabrera on 07-20-2024 Iron [Mass/Vol] 38 ug/dL Low 50-170 [facility] Laboratory - Chemistry and C hemistry - challengeOrdered By: Sowmya Cabrera on 07-20-2024 AST [Catalytic activity/Vol] 32 U/L 15-37 [facility] Lymphocytes Auto (Unsp spec) [#/Vol]Ordered By: Sowmya Cabrera on 07-20-2024 Lymphocytes (Bld) [#/Vol] 0.91 10*3/uL 0.83-4.51 [facility] Lymphocytes/100 WBC Auto (Un sp spec)Ordered By: Sowmya Cabrera on 07-20-2024 Lymphocytes/100 WBC (Bld) 20.0 % 19-41 [facility] MCV (mean corpuscular volume ) determinationOrdered By: Sowmya Cabrera on 07-20-2024 MCV (RBC) [Entitic vol] 92.9 fL 81-[address] [facility] Magnesiumon 07-20-2024 Magnesium [Mass/Vol] 2.2 mg/dL Normal 1.6-2.6 [place] Comment on above: Order Comment: Order Date: 07/20/24Order Info: [id number] - CMPOrder Info: - MGOrder Info: [id number] - TSHOrder Info: [id number] - FEOrder Info: [id number] - REHAN Performed By: #### L 503.6550, L500.4050, L501.5200, L3100.5475, L100.0100, L503.6150, L503.0105, L501.9520, L101.9900 ####[facility] [address] [place], [address] Magnesium measurementOrdered By: Sowmya Cabrera on 07-20-2024 Magnesium [Mass/Vol] 2.2 mg/dL 1.6-2.6 [place] Mean corpuscular hemoglobin (MCH) determinationOrdered By: Sowmya Cabrera on 07-20-2024 MCH (RBC) [Entitic mass] 30.2 pg 27.0-32.0 [facility] Mean corpuscular hemoglobin concentration (MCHC) determinationOrdered By: Sowmya Cabrera on 07-20-2024 MCHC (RBC) [Mass/Vol] 32.5 g/dL 32-36 [facility] Mean platelet volume determi nationOrdered By: Sowmya Cabrera on 07-20-2024 Platelet mean volume (Bld) [Entitic vol] 12.0 fL 6.2-12.0 [facility] Monocyte percentageOrdered B y: Sowmya Cabrera on 07-20-2024 Monocytes/100 WBC (Bld) 8.1 % 0-[address] [facility] Neutrophil percentageOrdered By: Sowmya Cabrera on 07-20-2024 Neutrophils/100 WBC (Bld) 69.8 % 47-70 [facility] Nucleated red blood cell per centageOrdered By: Sowmya Cabrera on 07-20-2024 Nucleated RBC/100 WBC (Bld) [Ratio] 0 % 0-5 [facility] Platelet countOrdered By: Zaynab Cabrera on 07-20-2024 Platelets (Bld) [#/Vol] 216 10*3/uL 150-450 [facility] Potassium measurementOrdered By: Sowmya Cabrera on 07-20-2024 Potassium [Moles/Vol] 3.7 mmol/L 3.5-5.1 [facility] RBC Auto (Bld) [#/Vol]Ordere d By: Sowmya Cabrera on 07-20-2024 RBC (Bld) [#/Vol] 4.24 10*6/uL 4.2-5.4 [facility] Serum anion gap measurementO rdered By: Sowmya Cabrera on 07-20-2024 Anion gap [Moles/Vol] 3 mmol/L Low 5-15 [facility] Serum globulin measurementOr dered By: Sowmya Cabrera on 07-20-2024 Globulin (S) [Mass/Vol] 3.5 g/dL 2.2-4.[address] [facility] Serum or plasma alanine eastman otransferase (ALT) measurementOrdered By: Sowmya Cabrera on 07-20-2024 ALT [Catalytic activity/Vol] 30 U/L 13-56 [facility] Serum or plasma albumin demetrice urement (mass/volume)Ordered By: Sowmya Cabrera on 07-20-2024 Albumin [Mass/Vol] 3.7 g/dL 3.2-5.0 [facility] Serum or plasma alkaline dedrick sphatase measurementOrdered By: Sowmya Cabrera on 07-20-2024 ALP [Catalytic activity/Vol] 96 U/L 45-117 [facility] Serum or plasma calcium demetrice urement (mass/volume)Ordered By: Sowmya Cabrera on 07-20-2024 Calcium [Mass/Vol] 9.3 mg/dL 8.5-10.1 [facility] Serum or plasma creatinine m easurement (mass/volume)Ordered By: Sowmya Cabrera on 07-20-2024 Creatinine [Mass/Vol] 0.68 mg/dL 0.55-1.02 [facility] Comment on above: The validity of the calculated GFR & GFRAA in patients over 70 years has not been determined. Clinical correlation is essential. Serum or plasma urea nitroge n measurement (mass/volume)Ordered By: Sowmya Cabrera on 07-20-2024 Urea nitrogen [Mass/Vol] 15 mg/dL 7-18 [facility] Sodium levelOrdered By: Shirin Cabrera on 07-20-2024 Sodium [Moles/Vol] 141 mmol/L 136-145 [facility] TSH QnOrdered By: Mann Cabrera on 07-20-2024 Thyroid Stimulating Hormone (TSH) 2.380 uIU/mL 0.358-3.740 [facility] Thyroid Stim Hormone (TSH)on 07-20-2024 TSH 2.380 uIU/mL Normal 0.358-3.740 [facility] Comment on above: Order Comment: Order Date: 07/20/24Order Info: [id number] - CMPOrder Info: [id number] - MGOrder Info: [id number] - TSHOrder Info: [id number] - FEOrder Info: [id number] - REHAN Performed By: #### L 503.6550, L500.4050, L501.5200, L3100.5475, L100.0100, L503.6150, L503.0105, L501.9520, L101.9900 ####[facility] [address] [place], [place], [id number] Total proteinOrdered By: Mari Cabrera on 07-20-2024 Protein [Mass/Vol] 7.2 g/dL 6.4-8.2 [facility] Vitamin B12on 07-20-2024 Cobalamin (Vitamin B12) [Mass/Vol] 559 pg/mL Normal [facility] Comment on above: Order Comment: Order Date: 07/20/24Order Info: [id number] - B12 Performed By: #### L 503.6550, L500.4050, L501.5200, L3100.5475, L100.0100, L503.6150, L503.0105, L501.9520, L101.9900 ####[facility] [address] [place], [address] Vitamin B12 measurementOrder ed By: Sowmya Cabrera on 07-20-2024 Cobalamin (Vitamin B12) [Mass/Vol] 559 pg/mL 211-911 [facility] White blood cell (WBC) count Ordered By: Sowmya Cabrera on 07-20-2024 WBC (Bld) [#/Vol] 4.6 10*3/uL 4.4-11.0 [facility] Inital Evaluation (1) - PTon 07-16-2024 Inital Evaluation (1) - PT [facility] Physical Therapy [facility] [address] [place] [address] / REHABILITATION SERVICES INITIAL EVALUATION MR#: [id number] Acct: [id number] Name: GERMANIA DONIS Rep #: [id number] : 1945 79 From: Sary Mejia PT, Cert. MDT Referring Dr.: Dr. Lex Rhoades MD Status: REG RCR Insurance: MEDICARE PART A B [facility] Patient's Visit Information Visit Information Visit Information: [...] 3+/5. R ELBOW 5/5 L 5/5. 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 Normal [facility] Shoulder min 2 Viewson 07-06 Shoulder min 2 Views [facility] Imaging Services [address], [place] [address] Shoulder min 2 Views MR#: [id number] Acct: [id number] Name: GERMANIA DONIS Rep #: [id number] : 1945 F 79 From: Marco Antonio Reynoso DO PCP: Dr. Sowmya Cabrera MD Status: REG CLI Study: Shoulder min 2 Views Date of Exam: 07/06/24 Exam# [id number] Ordering Dr: Lex Rhoades MD [id number] INDICATION: Left shoulder pain EXAMINATION/TECHNIQUE: X-RAY - [...] 11:52 EST Reading Location ID and State: [facility] / [place] Tel [phone], Service support , CC: Dr. Lex Rhoades MD; Dr. Sowmya Cabrera MD Teletype Mechanic: Signed Normal [facility] Shoulder min 2 Viewson 04-19 Shoulder min 2 Views [facility] Imaging Services [address] [place], [place] [address] Shoulder min 2 Views MR#: [id number] Acct: [id number] Name: GERMANIA DONIS Rep #: [id number] : 1945 F 78 From: Roxanna Rodriguez MD PCP: Dr. Sowmya Cabrera MD Status: REG CLI Study: Shoulder min 2 Views Date of Exam: 04/19/24 Exam# [id number] Ordering Dr: Sowmya Cabrera [id number] EXAM: XR LEFT SHOULDER COMPLETE, 2 OR [...] EDT , CC: Dr. Sowmya Cabrera MD Teletype Mechanic: Signed Normal [facility] Echo Completeon 02-17-2024 Echo Complete [facility] Cardi[facility] [address] [place] [address] Echo Complete 02/17/24 0906 MR#: [id number] Acct: [id number] Name: GERMANIA DONIS Rep #: [id number] : 1945 78 From: Jeronimo Anne MD Attending Dr: Dr. Sowmya Cabrera MD Status: REG CLI Ordering Dr: Sowmya Cabrera MD Date: 02/17/24 Location: [facility] Sex: F C Admitted: Reason For [...] MD Date Dictated: 02/17/24905 Date Transcribed: 02/17/241405 Teletype Mechanic: Signed Normal [facility] SCRN MAMM (CAD)W/CYNTHIA BILATo n 02-17-2024 SCRN MAMM (CAD)W/CYNTHIA BILAT [facility] Imaging Services [address] [place] [address] SCRN MAMM (CAD)W/CYNTHIA BILAT MR#: [id number] Acct: [id number] Name: GERMANIA DONIS Rep #: [id number] : 1945 F 78 From: Nathanael salcido MD PCP: Dr. Sowmya Cabrera MD Status: REG CLI Study: SCRN MAMM (CAD)W/CYNTHIA BILAT Date of Exam: 01/24 01/15 Exam# [id number] Ordering Dr: Sowmya Caberra [id number] MAMMOGRAPHY - BILATERAL SCREENING REASON FOR EXAM: [...] delay biopsy of a clinically suspicious abnormality. [id number] Electronically Signed: Nathanael Rosenberg MD at 9:12 EDT , CC: Dr. Sowmya Cabrera MD Teletype Mechanic: Signed Normal [facility] Basophil percentageOrdered B y: Mann Cabrera on 10-21-2023 Chloride [Moles/Vol] 110 mmol/L 98-107 [place] Cholesterol [Mass/Vol] 224 mg/dL <200 [facility] Comment on above: <200 mg/dL Desirable 200-240 mg/dL Borderline >240 mg/dL High Risk Glucose [Mass/Vol] 98 mg/dL 74-106 [facility] Potassium [Moles/Vol] 4.2 mmol/L 3.5-5.1 [facility] Sodium [Moles/Vol] 142 mmol/L 136-145 [facility] Triglyceride [Mass/Vol] 50 mg/dL <[address] [facility] Comment on above: The drugs N-Acetylcy steine and Metamizole may falsely depress this assay.Serum Triglycerides Reference Interval Normal <150 mg/dL Borderline high 150 - 199 mg/dL High 200 - 499 mg/dL Very High > or = 500 mg/dL Laboratory - Chemistry and C hemistry - challengeOrdered By: Mann Cabrera on 10-21-2023 Cholesterol in HDL [Mass/Vol] 71 mg/dL >40 [facility] Comment on above: The drugs N-Acetylcy steine and Metamizole may falsely depress this assay. Reference Range HDL <40 mg/dL Low HDL Cholesterol HDL >or= 60 mg/dL High HDL Cholesterol Cholesterol in LDL [Mass/Vol] 143 mg/dL 0-130 [facility] CO2 [Moles/Vol] 29.0 mmol/L 21.0-32.0 [facility] Urea nitrogen/Creatinine [Mass ratio] 27.7 mg/mg 10-20 [facility] No Panel InformationOrdered By: Mann Cabrera on 10-21-2023 Estimated GFR (MDRD) Amer 101 mL/min >60 [facility] Comment on above: GFR Calc Estimated GFR (MDRD) Non-Af Amer 84 mL/min >60 [facility] Comment on above: Non- GFR Calc VLDL Cholesterol 10 mg/dL 5-40 [facility] Serum or plasma calcium demetrice urement (mass/volume)Ordered By: Mann Cabrera on 10-21-2023 Calcium [Mass/Vol] 9.0 mg/dL 8.5-10.1 [facility] Serum or plasma creatinine m easurement (mass/volume)Ordered By: Mann Cabrera on 10-21-2023 Creatinine [Mass/Vol] 0.72 mg/dL 0.55-1.02 [facility] Comment on above: The validity of the calculated GFR & GFRAA in patients over 70 years has not been determined. Clinical correlation is essential. Serum or plasma thyroid stim ulating hormone (TSH) measurement (units/volume)Ordered By: Mann Cabrera on 10-21-2023 TSH Qn 1.70 uIU/mL 0.358-3.74 [facility] Serum or plasma urea nitroge n measurement (mass/volume)Ordered By: Mann Cabrera on 10-21-2023 Urea nitrogen [Mass/Vol] 20 mg/dL 7-18 [facility] Thin prep Papanicolaou smear with manual screeningOrdered By: Mann Cabrera on 10-21-2023 Thin prep Papanicolaou smear with manual screening 3 5-15 [facility] Basophil percentageOrdered B y: Dr. Cabrera on 12-16-2022 Bilirubin [Mass/Vol] 0.30 mg/dL 0.20-1.00 [place] Comment on above: For patients on eltr ombopag therapy, use of Dimension [place] TBIL is not recommended. Chloride [Moles/Vol] 108 mmol/L 98-107 [place] Cholesterol [Mass/Vol] 210 mg/dL <200 [facility] Comment on above: <200 mg/dL Desirable 200-240 mg/dL Borderline >240 mg/dL High Risk Glucose [Mass/Vol] 93 mg/dL 74-106 [facility] Potassium [Moles/Vol] 3.7 mmol/L 3.5-5.1 [facility] Protein [Mass/Vol] 7.6 g/dL 6.4-8.2 [facility] Sodium [Moles/Vol] 139 mmol/L 136-145 [facility] Triglyceride [Mass/Vol] 86 mg/dL <199 [facility] Comment on above: The drugs N-Acetylcy steine and Metamizole may falsely depress this assay.Serum Triglycerides Reference Interval Normal <150 mg/dL Borderline high 150 - 199 mg/dL High 200 - 499 mg/dL Very High > or = 500 mg/dL Laboratory - Chemistry and C hemistry - challengeOrdered By: Dr. Cabrera on 12-16-2022 ALP [Catalytic activity/Vol] 90 U/L 45-117 [facility] ALT [Catalytic activity/Vol] 41 U/L 13-56 [facility] CO2 [Moles/Vol] 26.0 mmol/L 21.0-32.0 [facility] Free T4 [Mass/Vol] 1.10 ng/dL 0.76-1.46 [facility] Globulin (S) [Mass/Vol] 4.4 g/dL 2.2-4.[address] [facility] Magnesium [Mass/Vol] 2.2 mg/dL 1.6-2.6 [place] Urea nitrogen/Creatinine [Mass ratio] 21.1 mg/mg 10-20 [facility] No Panel InformationOrdered By: Dr. Cabrera on 12-16-2022 Estimated GFR (MDRD) Amer 112 mL/min >60 [facility] Comment on above: GFR Calc Estimated GFR (MDRD) Non-Af Amer 92 mL/min >60 [facility] Comment on above: Non- GFR Calc Ionized Calcium 5.0 mg/dL 4.5-5.6 [facility] Comment on above: Performed at: [address] [id number] Director: Wilder Araya PhD, Phone: [phone] Parathyroid Hormone (Intact) 25.4 pg/mL 18.4-80.1 [facility] Thyroid Stimulating Hormone (TSH) 0.30 uIU/mL 0.358-3.74 [facility] Vitamin D 25-Hydroxy 99.5 ng/mL [place] Comment on above: Vitamin D 25(OH) Sta tus Range Deficiency <20 ng/mL (50nmol/L) Insufficiency 20 - 30 ng/mL (50 - 75 nmol/L) Sufficiency 30 - 100 ng/mL (75 - 250 nmol/L) Toxicity >100 ng/mL (>250 nmol/L) Serum or plasma albumin demetrice urement (mass/volume)Ordered By: Dr. Cabrera on 12-16-2022 Albumin [Mass/Vol] 3.2 g/dL 3.2-5.0 [facility] Serum or plasma albumin/glob ulin mass ratioOrdered By: Dr. Cabrera on 12-16-2022 Albumin/Globulin [Mass ratio] 0.7 {ratio} 0.9-2.4 [facility] Serum or plasma calcium demetrice urement (mass/volume)Ordered By: Dr. Cabrera on 12-16-2022 Calcium [Mass/Vol] 9.0 mg/dL 8.5-10.1 [facility] Serum or plasma cholesterol in HDL measurement (mass/volume)Ordered By: Dr. Cabrera on 12-16-2022 Cholesterol in HDL [Mass/Vol] 59 mg/dL >40 [facility] Comment on above: The drugs N-Acetylcy steine and Metamizole may falsely depress this assay. Reference Range HDL <40 mg/dL Low HDL Cholesterol HDL >or= 60 mg/dL High HDL Cholesterol Serum or plasma cholesterol in VLDL measurement (mass/volume)Ordered By: Dr. Cabrera on 12-16-2022 Cholesterol in VLDL [Mass/Vol] 17 mg/dL 5-40 [facility] Serum or plasma creatinine m easurement (mass/volume)Ordered By: Dr. Cabrera on 12-16-2022 Creatinine [Mass/Vol] 0.66 mg/dL 0.55-1.02 [facility] Comment on above: The validity of the calculated GFR & GFRAA in patients over 70 years has not been determined. Clinical correlation is essential. Serum or plasma low density lipoprotein (LDL) cholesterol measurement (mass/volume)Ordered By: Dr. Cabrera on 12-16-2022 Cholesterol in LDL [Mass/Vol] 134 mg/dL 0-130 [facility] Serum or plasma urea nitroge n measurement (mass/volume)Ordered By: Dr. Cabrera on 12-16-2022 Urea nitrogen [Mass/Vol] 14 mg/dL 7-18 [facility] Thin prep Papanicolaou smear with manual screeningOrdered By: Dr. Cabrera on 12-16-2022 Thin prep Papanicolaou smear with manual screening 38 U/L 15-37 [facility] Thin prep Papanicolaou smear with manual screening 5 5-15 [facility] Laboratory - Chemistry and C hemistry - challengeon 06-24-2022 Free T4 [Mass/Vol] 1.19 ng/dL 0.76-1.46 [facility] Work Phone: No Panel Informationon 06-24 Thyroid Stimulating Hormone (TSH) 0.77 uIU/mL 0.358-3.74 [facility] Work Phone: Basophil percentageon 2021 Bilirubin [Mass/Vol] 0.40 mg/dL 0.20-1.00 [place] Work Phone: Comment on above: For patients on eltr ombopag therapy, use of Dimension [place] TBIL is not recommended. Chloride [Moles/Vol] 107 mmol/L 98-107 [place] Work Phone: Cholesterol [Mass/Vol] 251 mg/dL <200 [facility] Work Phone: Comment on above: <200 mg/dL Desirable 200-240 mg/dL Borderline >240 mg/dL High Risk Glucose [Mass/Vol] 90 mg/dL 74-106 [facility] Work Phone: Potassium [Moles/Vol] 4.1 mmol/L 3.5-5.1 [facility] Work Phone: Protein [Mass/Vol] 7.3 g/dL 6.4-8.2 [facility] Work Phone: Sodium [Moles/Vol] 140 mmol/L 136-145 [facility] Work Phone: [phone] Triglyceride [Mass/Vol] 66 mg/dL <[address] [facility] Work Phone: [phone] Comment on above: The drugs N-Acetylcy steine and Metamizole may falsely depress this assay.Serum Triglycerides Reference Interval Normal <150 mg/dL Borderline high 150 - 199 mg/dL High 200 - 499 mg/dL Very High > or = 500 mg/dL WBC (Bld) [#/Vol] 4.3 10*3/uL 4.4-11.0 [facility] Work Phone: Blood erythrocytes count (nu mber/volume)on 04-30-2022 RBC (Bld) [#/Vol] 4.44 10*6/uL 4.2-5.4 [facility] Work Phone: Blood hemoglobin measurement (mass/volume)on 04-30-2022 Hemoglobin (Bld) [Mass/Vol] 13.1 g/dL 12.0-15.0 [facility] Work Phone: [phone] Blood platelet mean volumeon 04-30-2022 Platelet mean volume (Bld) [Entitic vol] 11.6 fL 6.2-12.0 [facility] Work Phone: Determination of erythrocyte mean corpuscular volume (MCV)on 04-30-2022 MCV (RBC) [Entitic vol] 92.1 fL 81-[address] [facility] Work Phone: [phone] Hematocrit Auto (Bld) [Volum e fraction]on 04-30-2022 Hematocrit (Bld) [Volume fraction] 40.9 % 37-47 [facility] Work Phone: Laboratory - Chemistry and C hemistry - challengeon 04-30-2022 ALP [Catalytic activity/Vol] 85 U/L 45-117 [facility] Work Phone: ALT [Catalytic activity/Vol] 34 U/L 13-56 [facility] Work Phone: [phone] CO2 [Moles/Vol] 28.0 mmol/L 21.0-32.0 [facility] Work Phone: Free T4 [Mass/Vol] 0.91 ng/dL 0.76-1.46 [facility] Work Phone: Globulin (S) [Mass/Vol] 3.9 g/dL 2.2-4.[address] [facility] Work Phone: [phone] Urea nitrogen/Creatinine [Mass ratio] 28.1 mg/mg 10-20 [facility] Work Phone: Laboratory - Hematology and Cell countson 04-30-2022 Erythrocyte distribution width (RBC) [Entitic vol] 46.3 fL 35.1-43.9 [facility] Work Phone: [phone] Erythrocyte distribution width (RBC) [Ratio] 13.6 % 11.6-14.6 [facility] Work Phone: [phone] MCH (RBC) [Entitic mass] 29.5 pg 27.0-32.0 [facility] Work Phone: [phone] MCHC Auto (RBC) [Mass/Vol]on 04-30-2022 MCHC (RBC) [Mass/Vol] 32.0 g/dL 32-36 [facility] Work Phone: [phone] Panel Informationon 04-30 Estimated GFR (MDRD) Amer 97 mL/min >60 [facility] Work Phone: [phone] Comment on above: GFR Calc Estimated GFR (MDRD) Non-Af Amer 80 mL/min >60 [facility] Work Phone: [phone] Comment on above: Non- GFR Calc Thyroid Stimulating Hormone (TSH) 3.14 uIU/mL 0.358-3.74 [facility] Work Phone: [phone] Vitamin D 25-Hydroxy 62.3 ng/mL [place] Work Phone: [phone] Comment on above: Vitamin D 25(OH) Sta tus Range Deficiency <20 ng/mL (50nmol/L) Insufficiency 20 - 30 ng/mL (50 - 75 nmol/L) Sufficiency 30 - 100 ng/mL (75 - 250 nmol/L) Toxicity >100 ng/mL (>250 nmol/L) Platelets bldon 04-30-2022 Platelets (Bld) [#/Vol] 203 10*3/uL 150-450 [facility] Work Phone: [phone] Serum or plasma albumin demetrice urement (mass/volume)on 04-30-2022 Albumin [Mass/Vol] 3.4 g/dL 3.2-5.0 [facility] Work Phone: [phone] Serum or plasma albumin/glob ulin mass ratioon 04-30-2022 Albumin/Globulin [Mass ratio] 0.9 {ratio} 0.9-2.4 [facility] Work Phone: Serum or plasma calcium demetrice urement (mass/volume)on 04-30-2022 Calcium [Mass/Vol] 9.1 mg/dL 8.5-10.1 [facility] Work Phone: Serum or plasma cholesterol in HDL measurement (mass/volume)on 04-30-2022 Cholesterol in HDL [Mass/Vol] 72 mg/dL >40 [facility] Work Phone: Comment on above: The drugs N-Acetylcy steine and Metamizole may falsely depress this assay. Reference Range HDL <40 mg/dL Low HDL Cholesterol HDL >or= 60 mg/dL High HDL Cholesterol Serum or plasma cholesterol in VLDL measurement (mass/volume)on 04-30-2022 Cholesterol in VLDL [Mass/Vol] 13 mg/dL 5-40 [facility] Work Phone: [phone] Serum or plasma creatinine m easurement (mass/volume)on 04-30-2022 Creatinine [Mass/Vol] 0.75 mg/dL 0.55-1.02 [facility] Work Phone: Comment on above: The validity of the calculated GFR & GFRAA in patients over 70 years has not been determined. Clinical correlation is essential. Serum or plasma low density lipoprotein (LDL) cholesterol measurement (mass/volume)on 04-30-2022 Cholesterol in LDL [Mass/Vol] 166 mg/dL 0-130 [facility] Work Phone: Serum or plasma urea nitroge n measurement (mass/volume)on 04-30-2022 Urea nitrogen [Mass/Vol] 21 mg/dL 7-18 [facility] Work Phone: [phone] Thin prep Papanicolaou smear with manual screeningon 04-30-2022 Thin prep Papanicolaou smear with manual screening 30 U/L 15-37 [facility] Work Phone: [phone] Thin prep Papanicolaou smear with manual screening 5 5-15 [facility] Work Phone: [phone] Basophil percentageon 2021 Basophil percentage 65 mg/dL [facility] Work Phone: [phone] Panel Informationon 11-23 Insulin Resistance/Diabetes Risk <25 [facility] Work Phone: Comment on above: INSULIN RESISTANCE [...] component of a physician'sclinical assessment.Performed at: - [facility] [id number] Director: Tomy Moser MD, Phone: [phone] LDL Cholesterol Particle Number [id number] nmol/L [facility] Work Phone: Comment on above: Low < 1000 Moderate 1000 - 1299 Borderline-High 1300 - 1599 High 1600 - 2000 Very High > 2000 LDL Cholesterol Particle Size 21.6 nm [facility] Work Phone: Comment on above: INTERPRETATIVE INFORMATION [...] into account. LDL Cholesterol, Calculated 156 mg/dL [facility] Work Phone: Comment on above: Optimal < 100 Above optimal 100 - 129 Borderline 130 - 159 High 160 - 189 Very high > 189 Small LDL Particle Number [id number] nmol/L [facility] Work Phone: Serum or plasma cholesterol in HDL measurement (mass/volume)on 11-23-2021 Cholesterol in HDL [Mass/Vol] 63 mg/dL [facility] Work Phone: Serum or plasma cholesterol measurement (mass/volume)on 11-23-2021 Cholesterol [Mass/Vol] 230 mg/dL [facility] Work Phone: Thin prep Papanicolaou smear with manual screeningon 11-23-2021 Thin prep Papanicolaou smear with manual screening 34.3 umol/L [facility] Work Phone: CT CARDIAC SCORINGon 022 CT CARDIAC SCORING Patient Name: GERMANIA DONIS STUDY: CT CARDIAC SCORING; 08/31/2021 3:12 pm INDICATION: E78.5 Hyperlipidemia, unspecified. COMPARISON: None. ACCESSION NUMBER(S): [id number] ORDERING CLINICIAN: SOWMYA CABRERA TECHNIQUE: Using prospective [...] coronary heart disease events. According to the [place] [employer] Clinical Expert Consensus [...] modify other non-lipid coronary risk factors. Reference: Lamont P et al. Circulation. 2007; 115:402-426 2. Faint ground-glass opacities in the right upper lobe, which may be related to infiltrates. Clinical correlation and further evaluation may be obtained as clinically warranted. The report was faxed to the referring office. Electronically signed by: JINA OVALLE MD [facility] Absolute lymphocyte counton 08-01-2021 Lymphocytes Auto (Unsp spec) [#/Vol] 1.08 10*3/uL 0.83-4.51 [facility] Work Phone: Basophil percentageon 2020 Bilirubin [Mass/Vol] 0.50 mg/dL 0.20-1.00 [place] Work Phone: Comment on above: For patients on eltr ombopag therapy, use of Dimension [place] TBIL is not recommended. Chloride [Moles/Vol] 104 mmol/L 98-107 [place] Work Phone: Cholesterol [Mass/Vol] 324 mg/dL <200 [facility] Work Phone: Comment on above: <200 mg/dL Desirable 200-240 mg/dL Borderline >240 mg/dL High Risk Eosinophils/100 WBC (Bld) 0.2 % 0-5 [facility] Work Phone: Glucose [Mass/Vol] 96 mg/dL 74-106 [facility] Work Phone: Comment on above: Please note revised GLUCOSE reference range effective 2017. Neutrophils (Bld) [#/Vol] 8.4 10*3/uL 2.0-7.7 [facility] Work Phone: Potassium [Moles/Vol] 4.0 mmol/L 3.5-5.1 [facility] Work Phone: [phone] Protein [Mass/Vol] 7.8 g/dL 6.4-8.2 [facility] Work Phone: [phone] Sodium [Moles/Vol] 138 mmol/L 136-145 [facility] Work Phone: [phone] Triglyceride [Mass/Vol] 59 mg/dL [facility] Work Phone: [phone] Comment on above: The drugs N-Acetylcy steine and Metamizole may falsely depress this assay.Serum Triglycerides Reference Interval Normal <150 mg/dL Borderline high 150 - 199 mg/dL High 200 - 499 mg/dL Very High > or = 500 mg/dL WBC (Bld) [#/Vol] 10.3 10*3/uL 4.4-11.0 [facility] Work Phone: [phone] Blood erythrocytes count (nu mber/volume)on 08-01-2021 RBC (Bld) [#/Vol] 4.62 10*6/uL 4.2-5.4 [facility] Work Phone: [phone] Blood hemoglobin measurement (mass/volume)on 08-01-2021 Hemoglobin (Bld) [Mass/Vol] 13.4 g/dL 12.0-15.0 [facility] Work Phone: [phone] Blood lymphocytes/100 leukoc yteson 08-01-2021 Lymphocytes/100 WBC (Bld) 10.5 % 19-41 [facility] Work Phone: [phone] Blood monocytes/100 leukocyt eson 08-01-2021 Monocytes/100 WBC (Bld) 7.2 % 0-[address] [facility] Work Phone: [phone] Blood platelet mean volumeon 08-01-2021 Platelet mean volume (Bld) [Entitic vol] 11.8 fL 6.2-12.0 [facility] Work Phone: [phone] Culture, urineon 08-01-2021 Bacteria identified Cx Nom (U) Presumptive E. coli [facility] Work Phone: [phone] Determination of erythrocyte mean corpuscular volume (MCV)on 08-01-2021 MCV (RBC) [Entitic vol] 90.7 fL 81-[address] [facility] Work Phone: Hematocrit Auto (Bld) [Volum e fraction]on 08-01-2021 Hematocrit (Bld) [Volume fraction] 41.9 % 37-47 [facility] Work Phone: Laboratory - Chemistry and C hemistry - challengeon 08-01-2021 ALP [Catalytic activity/Vol] 110 U/L 45-117 [facility] Work Phone: ALT [Catalytic activity/Vol] 26 U/L 13-56 [facility] Work Phone: [phone] CO2 [Moles/Vol] 26.0 mmol/L 21.0-32.0 [facility] Work Phone: Free T4 [Mass/Vol] 0.98 ng/dL 0.76-1.46 [facility] Work Phone: [phone] Globulin (S) [Mass/Vol] 4.5 g/dL 2.2-4.[address] [facility] Work Phone: [phone] Magnesium [Mass/Vol] 2.3 mg/dL 1.6-2.6 [place] Work Phone: [phone] Urea nitrogen/Creatinine [Mass ratio] 15.6 mg/mg 10-20 [facility] Work Phone: Laboratory - Hematology and Cell countson 08-01-2021 Basophils/100 WBC (Unsp spec) 0.2 % 0-1 [facility] Work Phone: [phone] Erythrocyte distribution width (RBC) [Entitic vol] 45.1 fL 35.1-43.9 [facility] Work Phone: [phone] Erythrocyte distribution width (RBC) [Ratio] 13.5 % 11.6-14.6 [facility] Work Phone: Immature granulocytes/100 WBC (Bld) 0.300 % 0.0-0.9 [facility] Work Phone: Comment on above: IG% - Immature Granu locytes (promyelocytes, myelocytes and metamyelocytes) > 1% indicates that a LEFT SHIFT is Present. MCH (RBC) [Entitic mass] 29.0 pg 27.0-32.0 [facility] Work Phone: Neutrophils/100 WBC (Bld) 81.6 % 47-70 [facility] Work Phone: [phone] Nucleated RBC/100 WBC (Bld) [Ratio] 0 % 0-5 [facility] Work Phone: [phone] MCHC Auto (RBC) [Mass/Vol]on 08-01-2021 MCHC (RBC) [Mass/Vol] 32.0 g/dL 32-36 [facility] Work Phone: No Panel Informationon 08-01 Estimated GFR (MDRD) Amer 86 mL/min >60 [facility] Work Phone: Comment on above: GFR Calc Estimated GFR (MDRD) Non-Af Amer 71 mL/min >60 [facility] Work Phone: Comment on above: Non- GFR Calc Ionized Calcium 5.3 mg/dL [facility] Work Phone: Comment on above: Performed at: [place] [id number] Director: Wilder Araya PhD, Phone: [phone] Parathyroid Hormone (Intact) 28.6 pg/mL 18.4-80.1 [facility] Work Phone: [phone] Thyroid Stimulating Hormone (TSH) 1.49 uIU/mL 0.358-3.74 [facility] Work Phone: [phone] Platelets bldon 08-01-2021 Platelets (Bld) [#/Vol] 237 10*3/uL 150-450 [facility] Work Phone: [phone] Serum or plasma albumin demetrice urement (mass/volume)on 08-01-2021 Albumin [Mass/Vol] 3.3 g/dL 3.2-5.0 [facility] Work Phone: [phone] Serum or plasma albumin/glob ulin mass ratioon 08-01-2021 Albumin/Globulin [Mass ratio] 0.7 {ratio} 0.9-2.4 [facility] Work Phone: [phone] Serum or plasma calcium demetrice urement (mass/volume)on 08-01-2021 Calcium [Mass/Vol] 9.2 mg/dL 8.5-10.1 [facility] Work Phone: [phone] Serum or plasma cholesterol in HDL measurement (mass/volume)on 08-01-2021 Cholesterol in HDL [Mass/Vol] 66 mg/dL [facility] Work Phone: Comment on above: The drugs N-Acetylcy steine and Metamizole may falsely depress this assay. Reference Range HDL <40 mg/dL Low HDL Cholesterol HDL >or= 60 mg/dL High HDL Cholesterol Serum or plasma cholesterol in VLDL measurement (mass/volume)on 08-01-2021 Cholesterol in VLDL [Mass/Vol] 12 mg/dL 5-40 [facility] Work Phone: [phone] Serum or plasma creatinine m easurement (mass/volume)on 08-01-2021 Creatinine [Mass/Vol] 0.84 mg/dL 0.55-1.02 [facility] Work Phone: Comment on above: The validity of the calculated GFR & GFRAA in patients over 70 years has not been determined. Clinical correlation is essential. Serum or plasma low density lipoprotein (LDL) cholesterol measurement (mass/volume)on 08-01-2021 Cholesterol in LDL [Mass/Vol] 246 mg/dL 0-130 [facility] Work Phone: [phone] Serum or plasma urea nitroge n measurement (mass/volume)on 08-01-2021 Urea nitrogen [Mass/Vol] 13 mg/dL 7-18 [facility] Work Phone: [phone] Thin prep Papanicolaou smear with manual screeningon 08-01-2021 Thin prep Papanicolaou smear with manual screening 22 U/L 15-37 [facility] Work Phone: [phone] Thin prep Papanicolaou smear with manual screening 8 5-15 [facility] Work Phone: PROGRESSon 09-15-2017 PROGRESS HNO ID: [id number]: [place] (Rt) Pillo Anglin: (none)Author Type: TechnicianType: Progress NotesFiled: 09/15/2017 2:45 PMNote Text: Radiology Service Progress NotePATIENT NAME: Germania DonisMRN: [id number] OF SERVICE: September 15, 2017TIME: 2:39 PMPATIENT IDENTITY VERIFICATION COMPLETED USING TWO (2) METHODS: Patientconfirmed name verbally and Date of .PATIENT GENDER DATA: Female. status: : NoBreastfeeding status: NO.PATIENT RELEVANT IMPLANT DATA REVIEWED: Not ApplicableRADIOLOGY DEPARTMENT: General X-ray: Exam(s) Completed: Chest X-RayPERIPHERAL IV DATA: Not applicableSIGNED BY: RT ElsaSeptember 15, 2017 2:39 PM [facility] XR CHEST 2V FRONTAL/LATon XR CHEST [...] MARK MD on Sep 15 2017 3:39PM [id number] ACN [facility] CNOVon 08-30-2017 CNOV Office Visit (UCWSTR) GERMANIA DONIS ([id number]) 1945 FDate Time Provider Department08/30/17 1:15 PM PABLO HENDRICKSON) [facility] During your visit today, we recorded the following information about you: Temperature Pulse Respiration Blood pressure 102.4 degrees 119/minute 20/minute 100/60 Weight 68 kgCara R BOOKER Hendrickson 08/30/2017 2:20 PM SignedThis note was created using F3 Foodsriter.Chelsea Disla presents with a cough and chest [...] Visit Diagnosis:Bacterial pneumonia [J15.9]Order(s):XR CHEST 2V FRONTAL/LAT [[id number]] Order #: [id number] FUTURE ibuprofen (MOTRIN) 800 mg tabletTake 1 [...] by PABLO HENDRICKSON PA-C on 08/30/17 [facility] PROGRESSon 08-30-2017 PROGRESS HNO ID: [id number]: Sary Moon RtService: (none)Author Type: (none)Type: Progress NotesFiled: 08/30/2017 1:57 PMNote Text: Radiology Service Progress NotePATIENT NAME: Germania DonisMRN: [id number] OF SERVICE: August 30, 2017TIME: 1:46 PMPATIENT IDENTITY VERIFICATION COMPLETED USING TWO (2) METHODS: Patientconfirmed name verbally and Date of .PATIENT GENDER DATA: Female. status: : NoBreastfeeding status: NO.PATIENT RELEVANT IMPLANT DATA REVIEWED: Not ApplicableRADIOLOGY DEPARTMENT: General X-ray: Exam(s) Completed: Chest X-RayPERIPHERAL IV DATA: Not applicableSIGNED BY: Sary Moon RtJan2017 1:46 PM [facility] PROGRESS HNO ID: [id number]: Pablo Tiwari) AthyService: (none)Author Type: Physician AssistantType: Progress NotesFiled: 08/30/2017 2:20 PMNote Text:This note was created using Spect[employer].SubjectiveH Naif presents with a cough and chest [...] next few days also.Pablo Hendrickson PA-C [facility] XR CHEST 2V FRONTAL/LATon XR CHEST [...] ENAMORADO MD on Aug 30 2017 2:02PM [id number] ACN [facility] Vital Signs Date Time Vital Sign Value Performing Clinician Faci litalley 12-20-2024 10:01-0400 Body weight 61.[address] Sowmya Cabrera MD Work Phone: [facility] 12-07-2024 14:49-0400 Body temperature 97.6 [degF] Dr. Sowmya Cabrera MD Work Phone: [facility] 12-07-2024 14:49-0400 Diastolic blood pressure 70 mm[Hg] Dr. Sowmya Cabrera MD Work Phone: [facility] 12-07-2024 14:49-0400 Heart rate 89 /min Dr. Sowmya Cabrera MD Work Phone: [facility] 12-07-2024 14:49-0400 Respiratory rate 18 /min Dr. Sowmya Cabrera MD Work Phone: [facility] 12-07-2024 14:49-0400 SaO2% (BldA) [Mass fraction] 98 % Dr. Sowmya Cabrera MD Work Phone: [phone] [place] [address] 12-07-2024 14:49-0400 Systolic blood pressure 134 mm[Hg] Dr. Sowmya Cabrera MD Work Phone: [facility] 12-05-2024 11:12-0400 Body height 157.[address] Sowmya Cabrera MD Work Phone: [facility] 12-05-2024 11:12-0400 Body weight 65.[address] Sowmya Cabrera MD Work Phone: [facility] 12-05-2024 05:57-0400 Inhaled oxygen flow rate 2 L/min Dr. Sowmya Cabrera MD Work Phone: [facility] 12-04-2024 15:59-0400 Body mass index (BMI) [Ratio] 26.5 kg/m2 Dr. Sowmya Cabrera MD Work Phone: [facility] 12-04-2024 12:19-0400 Body height 157.[address] Sowmya Cabrera MD Work Phone: [facility] 12-04-2024 12:19-0400 Body mass index (BMI) [Ratio] 26.5 kg/m2 Dr. Sowmya Cabrera MD Work Phone: [facility] 12-04-2024 12:19-0400 Body temperature 98 [degF] Dr. Sowmya Cabrera MD Work Phone: [facility] 12-04-2024 12:19-0400 Body weight 65.[address] Sowmya Cabrera MD Work Phone: [facility] 12-04-2024 12:19-0400 Diastolic blood pressure 61 mm[Hg] Dr. Sowmya Cabrera MD Work Phone: [facility] 12-04-2024 12:19-0400 Heart rate 79 /min Dr. Sowmya Cabrera MD Work Phone: [facility] 12-04-2024 12:19-0400 Respiratory rate 14 /min Dr. Sowmya Cabrera MD Work Phone: [facility] 12-04-2024 12:19-0400 SaO2% (BldA) [Mass fraction] 98 % Dr. Sowmya Cabrera MD Work Phone: [phone] [place] [address] 12-04-2024 12:19-0400 Systolic blood pressure 91 mm[Hg] Dr. Sowmya Cabrera MD Work Phone: [facility] 11-04-2024 10:54-0400 Body temperature 97.9 [degF] Dr. Sowmya Cabrera MD Work Phone: [facility] 11-04-2024 10:54-0400 Diastolic blood pressure 52 mm[Hg] Dr. Sowmya Cabrera MD Work Phone: [facility] 11-04-2024 10:54-0400 Heart rate 69 /min Dr. Sowmya Cabrera MD Work Phone: [facility] 11-04-2024 10:54-0400 Respiratory rate 14 /min Dr. Sowmya Cabrera MD Work Phone: [facility] 11-04-2024 10:54-0400 SaO2% (BldA) [Mass fraction] 95 % Dr. Sowmya Cabrera MD Work Phone: [phone] [place] [address] 11-04-2024 10:54-0400 Systolic blood pressure 101 mm[Hg] Dr. Sowmya Cabrera MD Work Phone: [facility] 11-04-2024 06:19-0400 Body height 165.[address] Sowmya Cabrera MD Work Phone: [phone] [place] [address] 11-04-2024 06:19-0400 Body mass index (BMI) [Ratio] 23.5 kg/m2 Dr. Sowmya Cabrera MD Work Phone: [phone] [place] [address] 11-04-2024 06:19-0400 Body weight 64.[address] Sowmya Cabrera MD Work Phone: [phone] [place] [address] 09-27-2024 14:13-0500 Body mass index (BMI) [Ratio] 23.8 kg/m2 Dr. Sowmya Cabrera MD Work Phone: [phone] [place] [address] 09-27-2024 14:13-0500 Body temperature 97.3 [degF] Dr. Sowmya Cabrera MD Work Phone: [phone] [place] [address] 09-27-2024 14:13-0500 Body weight 64.[address] Sowmya Cabrera MD Work Phone: [phone] [place] [address] 09-27-2024 14:13-0500 Diastolic blood pressure 49 mm[Hg] Dr. Sowmya Cabrera MD Work Phone: [phone] [place] [address] 09-27-2024 14:13-0500 Heart rate 87 /min Dr. Sowmya Cabrera MD Work Phone: [phone] [place] [address] 09-27-2024 14:13-0500 Respiratory rate 17 /min Dr. Sowmya Cabrera MD Work Phone: [phone] [place] [address] 09-27-2024 14:13-0500 SaO2% (BldA) [Mass fraction] 94 % Dr. Sowmya Cabrera MD Work Phone: [phone] [place] [address] 09-27-2024 14:13-0500 Systolic blood pressure 80 mm[Hg] Dr. Sowmya Cabrera MD Work Phone: [phone] [place] [address] Encounters Encounter Date Encounter Type Care Provider Facility Start: 12-20-2024 End: 12-20-[address] Darrick Light MD -[facility] Work Phone: Start: 12-20-2024 End: 12-20-2024 ambulatory Sowmya Cabrera Facility:[facility] Start: 12-07-2024 Non-patient / Non-visit Eleonora Jeremy [facility] Start: 12-06-2024 Non-patient / Non-visit Eleonorarose mary Luna [facility] Start: 12-05-2024 Non-patient / Non-visit Dr. Darrick Light MD -[facility] Start: 12-04-2024 ambulatory Darrick Light Facility: [facility] Start: 12-04-2024 End: 12-07-2024 Evaluation and management of inpatient Dr. Darrick Light MD -[facility] Work Phone: Start: 12-04-2024 Admission to [facility] [place] Dr. Darrick Light MD -[facility] Work Phone: Start: 12-04-[address] Mann Cabrera MD Work Phone: [facility] Work Phone: Start: 12-04-2024 Non-patient / Non-visit Dr. Darrick Light MD -[facility] Start: 11-19-2024 End: 11-19-[address] Shelly Leonard MD -[facility] Work Phone: Start: 11-19-2024 End: 11-19-2024 ambulatory Sowmya Cabrera Facility:[facility] Start: 11-16-2024 Encounter for other preprocedural examination Shelly Leonard [facility] Start: 11-04-2024 ambulatory Shelly Leonard [facility] y:[facility] Start: 11-04-2024 Non-patient / Non-visit Dr. Todd Leonard MD -[facility] Start: 11-04-2024 End: 11-04-2024 Admission to [facility] day surgery center Dr. Shelly Leonard MD -[facility] Start: 11-04-2024 End: 11-04-[address] Sowmya Cabrera MD Work Phone: [facility] Work Phone: Start: 10-04-2024 End: 10-04-[address] Sowmya Cabrera MD -[facility] Work Phone: Start: 10-04-2024 End: 10-04-2024 ambulatory Sowmya Cabrera Facility:[facility] Start: 09-27-2024 End: 09-27-[address] Shelly Leonard MD -[facility] Work Phone: Start: 09-27-2024 End: 09-27-2024 ambulatory Sowmya Cabrera Facility:[facility] Start: 08-12-2024 End: 08-12-2024 ambulatory Sowmya Cabrera Facility:[facility] Start: 08-12-[address] Lex Rhoades MD -Physical Therapy Work Phone: Start: 07-20-2024 End: 07-20-[address] Sowmya Cabrera MD -[facility] Work Phone: Start: 07-20-2024 End: 07-20-2024 ambulatory Sowmya Cabrera Facility:[facility] Start: 07-06-2024 End: 07-06-2024 [facility] Facility:[facility] Start: 04-19-2024 End: 04-19-2024 [facility] Start: 02-17-2024 ambulatory [facility] Facility:[facility] Start: 02-17-2024 End: 02-17-2024 [facility]ulatory [facility] Start: 10-21-2023 End: 10-21-2023 ambulatory [facility] Work Phone: Start: 10-21-2023 End: 10-21-2023 Patient encounter procedure [facility] Start: 01-24-2023 End: 01-24-2023 ambulatory [facility] Work Phone: Start: 01-24-2023 End: 01-24-2023 Discharged Recurring [facility]-Physical Therapy Start: 01-02-2023 End: 01-02-2023 Patient encounter procedure [facility]-Outpatient [facility] [employer] Start: 12-16-2022 End: 12-16-2022 ambulatory [facility] Work Phone: Start: 12-16-2022 End: 12-16-2022 Patient encounter procedure [facility] Start: 06-24-2022 End: 06-24-2022 ambulatory [facility] Work Phone: Start: 06-24-2022 End: 06-24-2022 Patient encounter procedure [facility] Start: 04-30-2022 End: 04-30-[address] Mann Cabrera Work Phone: [facility] Work Phone: Start: 04-30-2022 End: 04-30-[address] Mann Cabrera Work Phone: [facility] Start: 04-22-2022 End: 04-22-[address] Mann Cabrera Work Phone: [facility] Work Phone: Start: 04-22-2022 End: 04-22-[address] Mann Cabrera Work Phone: [facility] Start: 01-24-2022 Non-patient / Non-visit Dr. Zaynab Cabrera Work Phone: [facility] Start: 01-24-2022 End: 01-24-[address] Mann Cabrera Work Phone: [facility] Start: 01-04-2022 End: 01-04-2022 Patient encounter procedure [facility]-Laboratory, Specimen Start: 11-23-2021 End: 11-23-2021 Patient encounter procedure [facility]-Labor[facility], [facility] Start: 08-01-2021 Patient encounter procedure [facility]-Laboratory, [facility] Start: 09-15-2017 End: 09-15-2017 Ambulatory JUANITA COATS [facility] Start: 08-30-2017 End: 08-30-2017 Ambulatory PABLO HENDRICKSON ([place]) [facility] Procedures Date Procedure Procedure Detail Performing [...] Activity Detail Author Start: 12-07-2024 Patient discharge [facility] Start: 12-05-2024 Ambulation therapy management [facility] Start: 12-05-2024 Oxygen therapy [facility] Start: 12-04-2024 Application of intermittent pneumatic compression device [facility] Start: 12-04-2024 Following clinical pathway protocol [facility] Start: 12-04-2024 Application of ice collar, cap or bag [facility] Start: 12-04-2024 Admission procedure [facility] Start: 12-04-2024 Laparoscopy Diagnostic Laparoscopy (Not Applicable) [facility] Start: 12-04-2024 Hospital admission, emergency, from emergency room, medical nature [facility] Start: 11-04-2024 Anesthesia hernia repair lower abdomen nos ANESTH REPAIR OF HERNIA [facility] Start: 11-04-2024 RPR AA HRN 1ST < 3 CM RDC RPR AA HRN 1ST < 3 CM RDC [facility] Start: 11-04-2024 Patient discharge [facility] Start: 10-21-2024 Electrocardiographic procedure [facility] Patient referral [facility] Work Phone: Payers Date Payer Category Payer Self-pay [id number] 2021 Unknown [id number] ed [id number] 2016 Unknown [id number] 2012 Medicare [id number] Unknown [id number] 2.16.8 40.1.595369.3.579.2.462 Unknown [id number] 2.16.8 40.1.482046.3.579.2.462 Unknown [id number] 2.16.8 40.1.925568.3.579.2.462 Unknown [id number] 2.16.8 40.1.297069.3.579.2.462 Unknown [id number] 2.16.8 40.1.321713.3.579.2.462 Unknown [id number] 2.16.8 40.1.139872.3.579.2.462 Unknown [id number] 2.16.8 40.1.012771.3.579.2.462 Unknown [id number] 2.16.8 40.1.101110.3.579.2.462 Unknown [id number] 2.16.8 40.1.397411.3.579.2.462 Unknown [id number] 2.16.8 40.1.798124.3.579.2.462 Unknown [id number] 2.16.8 40.1.903205.3.579.2.462 Unknown [id number] 2.16.8 40.1.860462.3.579.2.462 Unknown [id number] 2.16.8 40.1.039475.3.579.2.462 Unknown [id number] 2.16.8 40.1.095081.3.579.2.462 Unknown [id number] 2.16.8 40.1.243818.3.579.2.462 Unknown [id number] 2.16.8 40.1.999469.3.579.2.462 Unknown [id number] 2.16.8 40.1.961760.3.579.2.462 Social History Date Type Detail Facility Tobacco smoking status NHIS Unknown if ever smoked [facility] Work Phone: Start: 1945 Sex Assigned At Female [facility] Start: 10-21-2024 End: 12-04-2024 Tobacco smoking status NHIS Never smoked tobacco (finding) [facility] Start: 11-04-2024 End: 12-07-2024 Sex Female (finding) [facility] NEGATED: Highlighted row Not [facility] Medical Equipment Procedure Code Equipment Code Equipment Origin al Text Equipment Identifier Dates Repair, hernia, incisional, with mesh insertion MESH,VENTLEX ST SM 4.3CM FDA Start: 11-04-2024 Repair, hernia, incisional, with mesh insertion MESH,VENTLEX ST SM 4.3CM FDA Start: 11-04-2024 Repair, hernia, incisional, with mesh insertion MESH,VENTLEX ST SM 4.3CM FDA Start: 11-04-2024 Laparoscopy, diagnostic Surgical staple loading unit, cutting [id number] FDA Start: 12-04-2024 Laparoscopy, diagnostic Open-surgery manual linear cutting stapler, single-use ()[id number] FDA Start: 12-04-2024 Goals Date Patient Goal Desired Activity /State Functional Status Date Assessment Result Facility 12-07-2024 Functional status [place] [facility] Work Phone: Mental Status Date Assessment Result Facility 12-07-2024 Cognitive function Voice/Name [facility] Work Phone: 11-04-2024 Cognitive function Voice/Name;Touch/Shaki ng [facility] Work Phone: Clinical Notes 01-24-2023 to 12-07-2024 Note Date & Type Note Facility 12-07-2024 Discharge summary [facility] 12-07-2024 Discharge summary Note Date/Time December 07, 2024 2:30pm [facility] Medical Records Department [address] [place] [address] Discharge Summary 12/07/24 1100 MR#: [id number] Acct: [id number] Name: GERMANIA DONIS Rep #:[id number] : 1945 79 From: Eleonora CHERRYC PCP: Dr. Sowmya Cabrera MD Status :ADM IN Location: [facility] FM294-7 Providers Date of Admission: 12/04/24 Primary Care [...] mcg capsule 100 mcg PO DAILY 09/27/24 gqqcjhnv-waqreugy-qylnb acid 240 mcg-vit K1 150 mcg-herb 357 tablet (Alive Women's 50 Plus Ultra Multivitamin) 1 tab PO DAILY 09/27/24 vitamins A,C,F-ticz-xwyroh 4,296 mcg-226 mg-90 mg capsule (PreserVision AREDS) [...] (Auto) 70.8 H, Lymph % (Auto) 16.5 L,[place] % (Auto) 8.6, Eos % (Auto) 2.6, [...] to schedule a 2 week follow-up at [phone], option #2 Meaningful Use Info Meaningful Use [...] cereals, and grains Eat: White breads, waffles, Irish toast, plain white rolls, or white bread [...] types of beans Potatoes with skin Peas Randolph Cabbage, broccoli, cauliflower, [place] sprouts, and greens Sauerkraut Onions Fruits and [...] Self Care Charges/Coding Visit Charges Inpatient E&M: 50507 Disch Hosp (post-op; no charge) 12/07/24 1430 <Electronically signed by Eleonora DUONG PA-C> Cosigner Signature (if applicable): CC: BOOKER Montaño; Dr. Sowmya Cabrera MD~ Signed [facility] Work Phone: 1(820) 161-970404-15-2025 Progress note Author Eleonora Montaño [facility] Note Date/Time December 07, 2024 9:0 3am [facility] Medical Records Department [address] [place] [address] Progress Note - Surgery 12/07/2446 MR#: [id number] Acct: [id number] Name: GERMANIA DONIS Rep #:[id number] : 1945 79 From: Eleonora DUONG PA-C PCP: Dr. Sowmya Cabrera MD Status :ADM IN Location: [place] [address] Subjective Subjective Patient evaluated resting comfortably in [...] (Auto) 70.8 H, Lymph % (Auto) 16.5 L,[place] % (Auto) 8.6, Eos % (Auto) 2.6, [...] later today Charges/Coding Visit Charges Inpatient E&M: 42400 Subs Hosp L1 (no charge; post-op) 12/07/24 0903 <Electronically signed by Eleonora DUONG PA-C> Cosigner Signature (if applicable): CC: ~ Signed [facility] Work Phone: 1(418) 156-837104-15-2025 [facility] Medical Records Department [address] [place] [address] Discharge Summary 12/07/24 1100 MR#: [id number] Acct: [id number] Name: GERMANIA DONIS Rep #: [id number] : 1945 79 From: Eleonora DUONG PA-C PCP: Dr. Sowmya Cabrera MD Status:ADM IN Location: [facility] AA863-4 Providers Date of Admission: 12/04/24 Primary Care [...] mcg capsule 100 mcg PO DAILY 09/27/24 qxpjszeg-tsdimuvd-syjxp acid 240 mcg-vit K1 150 mcg-herb 357 tablet (Alive Women's 50 Plus Ultra Multivitamin) 1 tab PO DAILY 09/27/24 vitamins A,C,Z-mwlo-qetpmh 4,296 mcg-226 mg-90 mg capsule (PreserVision AREDS) [...] 70.8 H, Lymph % (Auto) 16.5 L, [place] % (Auto) 8.6, Eos % (Auto) 2.6, [...] to schedule a 2 week follow-up at [phone], option #2 Meaningful Use Info Meaningful Use [...] meet guidelines. HIGH DO (more content not included)...[facility]04-15-2025 Progress note [facility] Medical Records Department [address] [place] [address] Progress Note - Surgery 12/07/24 0846 MR#: [id number] Acct: [id number] Name: GERMANIA DONIS Rep #:[id number] : 1945 79 From: Eleonora DUONG PA-C PCP: Dr. Sowmya Cabrera MD Status :ADM IN Location: [place]3 KV702-3 Subjective Subjective Patient evaluated resting comfortably in [...] (Auto) 70.8 H, Lymph % (Auto) 16.5 L,[place] % (Auto) 8.6, Eos % (Auto) 2.6, [...] later today Charges/Coding Visit Charges Inpatient E&M: 88176 Subs Hosp L1 (no charge; post-op) 12/07/24 0903 Cosigner Signature (if applicable): CC: ~ Signed [facility]04-14-2025 Procedure note [facility] Medical Records Department [address] [place] [address] Operative Report 12/04/24 1434 MR#: [id number] Acct: [id number] Name: GERMANIA DONIS Rep #:[id number] : 1945 79 From: Darrick Lara PCP: Dr. Sowmya Cabrera MD Status :ADM IN Location: [facility] BO790-1 Procedures Digestive 40xxx-49xxx: 62040 Lap enterectomy Operative Report (Standard) Operative Information Date of Procedure: 12/04/24 Pre-Operative Diagnosis: Perforated small bowel Post-Operative Diagnosis: Perforated small bowel diverticulum Surgery/Procedure Performed: Diagnostic laparoscopy with small bowel resection and reanastomosis clearing house clerk: Yes Legal Mediator: Mora Richard Tasks completed by certified surgical first assistant: Opening & closing, Trocar and Retracting [...] DRAINS/GRAFTS/IMPLANTS that apply: Drains Drain details: 15 Irish round Mauricio Estimated Blood Loss: 20 Specimen [...] quadrant. Using atraumatic graspers and a suction help desk operator device I bluntly teased a perforated small [...] field labeled small bowel. Then a standard mxot-md-altj functional end-to-end small bowel anastomosis was created [...] remaining two 5 mm ports. A 15 Irish round Mauricio drain was fed into the [...] Cabrera MD; Dr. Darrick Light MD~ Signed [facility]04-14-2025 Progress note Author Eleonora Montaño [facility] Note Date/Time December 06, 2024 9:2 9am [facility] Medical Records Department [address] [place] [address] Progress Note - Surgery 12/06/24 0838 MR#: [id number] Acct: [id number] Name: GERMANIA DONIS Rep #:[id number] : 1945 79 From: Eleonora DUONG PA-C PCP: Dr. Sowmya Cabrera MD Status :ADM IN Location: [place]3 CR797-4 Subjective Subjective Patient evaluated resting comfortably in [...] (Auto) 78.8 H, Lymph % (Auto) 13.8 L,[place] % (Auto) 6.4, Eos % (Auto) 0.4, [...] this patient Charges/Coding Visit Charges Inpatient E&M: 22217 Subs Hosp L1 (post-op) 12/06/24928 <Electronically signed by Eleonora DUONG PA-C> Cosigner Signature (if applicable): CC: ~ Signed [facility] Work Phone: 1(668) 937-130204-14-2025 Progress note [facility] Medical Records Department [address] [place] [address] Progress Note - Surgery 12/06/24 0838 MR#: [id number] Acct: [id number] Name: GERMANIA DONIS Rep #:[id number] : 1945 79 From: Eleonora DUONG PA-C PCP: Dr. Sowmya Cabrera MD Status :ADM IN Location: [place] [address] Subjective Subjective Patient evaluated resting comfortably in [...] (Auto) 78.8 H, Lymph % (Auto) 13.8 L,[place] % (Auto) 6.4, Eos % (Auto) 0.4, [...] this patient Charges/Coding Visit Charges Inpatient E&M: 58418 Subs Hosp L1 (post-op) 12/06/24 0929 Cosigner Signature (if applicable): CC: ~ Signed [facility]04-13-2025 Progress note Author Darrick Light [facility] Note Date/Time December 05, 2024 10: 35am [facility] Medical Records Department [address] [place] [address] Progress Note - Surgery 12/05/24820 MR#: [id number] Acct: [id number] Name: GERMANIA DONIS Rep #:[id number] : 1945 79 From: Darrick Lara PCP: Dr. Sowmya Cabrera MD Status :[facility]M IN [facility] Subject[facility] Subjective Patient seen and evaluated during [...] Sl. Cloudy, Urine pH 6.0, Ur Specific [place] 1.010, Urine Protein 15 H, Urine Glucose [...] 87.8 H, Lymph % (Auto) 5.8 L, [place] % (Auto) 5.7, Eos % (Auto) 0.0, [...] at 10:34 a.m. on 12/04/2024. Reading Location: [id number] Physical Exam Const oriented x3 Resp normal [...] Light MD General Surgery Endocrine Surgery Pager: [facility] [address] [place] [address], Outpatient [place], [address] [place] [address] Office: [phone] (2) Pneumoperitoneum: Charges/Coding Visit Charges Inpatient E&M: 72026 Subs Hosp L2 12/05/24 1035 <Electronically signed by Darrick Light MD> Cosigner Signature (if applicable): CC: ~ Signed [facility] Work Phone: 1(661) 947-904804-13-2025 Progress note [facility] Medical Records Department [address] [place] [address] Progress Note - Surgery 12/05/24 08 MR#: [id number] Acct: [id number] Name: GERMANIA DONIS Rep #:[id number] : 1945 79 From: Darrick Lara PCP: Dr. Sowmya Cabrera MD Status :ADM IN Location: [place] [address]-1 Subjective Subjective Patient seen and evaluated during [...] Sl. Cloudy, Urine pH 6.0, Ur Specific [place] 1.010, Urine Protein 15 H, Urine Glucose [...] 87.8 H, Lymph % (Auto) 5.8 L, [place] % (Auto) 5.7, Eos % (Auto) 0.0, [...] at 10:34 a.m. on 12/04/2024. Reading Location: [facility] Physical Exam Const oriented x3 Resp [...] Light MD General Surgery Endocrine Surgery Pager: [facility] [address] [place] [address], [address] [place] [address] Office: [phone] (2) Pneumoperitoneum: Charges/Coding Visit Charges Inpatient E&M: 50310 Subs Hosp L2 12/05/24 1035 Cosigner Signature (if applicable): CC: ~ Signed [facility]04-12-2025 Discharge summary Author Pardeep Naranjo [facility] Note Date/Time December 04, 2024 3:2 4pm [facility] Medical Records Department [address] [place], [place] [id number] Emergency Department Summary 12/04/24 MR#: [id number] Acct: [id number] Name: JEWELSGERMANIA BAUMANN Osmel Rep #:[id number] : 1945 79 From: Pardeep Davila PCP: Dr. Sowmya Cabrera MD Status :ADM IN Location: [facility] KD243-7 HPI HPI - GI History of Present [...] followed up and things were progressing normally. [facility] Medical History Umbilical hernia Wears glasses Wears [...] 100 mcg PO QDAY 09/27/24 11/03/24 History xqzbhvuw-cnxizebo-itwwn acid 240 1 tab PO DAILY 11/03/24 History mcg-vit K1 150 mcg-herb 357 tablet (Alive Women's 50 Plus Ultra Multivitamin) vitamins A,C,B-otjs-qhgdbj 4,296 1 cap PO BID 09/27/24 11/03/24 [...] 83.2 H Lymph % (Auto) 9.5 L [place] % (Auto) 6.5 Eos % (Auto) 0.3 [...] Sl. Cloudy Urine pH 6.0 Ur Specific [place] 1.010 Urine Protein 15 H Urine Glucose [...] at 10:34 a.m. on 12/04/2024. Reading Location: [facility] Management Discussion w/another healthcare provider: Herb Digger (Dr Light) and Radiologist Discharge Plan Dx/Rx/DC Orders Clinical Impression: Perforated small intestine, Intra-abdominal abscess, Pneumoperitoneum, Abdominal pain, acute Disposition Disposition: Acute Care Hospital [facility] What to do if you have Problems For any increased pain, shortness of breath, bleeding, nausea or vomiting, chestpain, or any unexpected problems, contact your Primary Care Provider. Call [facility] ([phone]) or report to the closest Emergency Room. Call 911 if necessary. 12/04/24 1524 <Electronically signed by Pardeep Naranjo DO> Cosigner Signature (if applicable): CC: Dr. Sowmya Cabrera MD ~ Signed [facility] Work Phone: 1(318) 236-844604-12-2025 Consult note Author Pardeep Pierre [facility] Note Date/Time December 04, 2024 3:0 0pm [facility] Medical Records Department [address] [place] [address] Anesthesia Postop Eval II 12/04/24 1459 MR#: [id number] Acct: [id number] Name: GERMANIA DONIS Rep #:[id number] : 1945 79 From: Pardeep Lara PCP: Dr. Sowmya Cabrera MD Status :ADM IN Y Race: C Location: [facility] MS317 -1 Anesthesia Postop Eval I Sum [...] MD Cosigner Signature: Date CC: ~ Signed [facility] Work Phone: 1(570) 714-785104-12-2025 Consult note Author Pardeep Pierre [facility] Note Date/Time December 04, 2024 2:5 9pm [facility] Medical Records Department [address] [place] [address] Anesthesia Postop Eval I 12/04/241456 MR#: [id number] Acct: [id number] Name: GERMANIA DONIS Rep #:[id number] : 1945 79 From: Pardeep Lara PCP: Dr. Sowmya Cabrera MD Status :ADM IN Y Race: C Location: [place] [address] Anesthesia: Postop Eval I Current Vital Signs [...] MD Cosign Signature: Date CC: ~ Signed [facility] Work Phone: 1(821) 936-341104-12-2025 Discharge summary [facility] Medical Records Department [address] [place] [address] Emergency Department Summary 12/04/24 MR#: [id number] Acct: [id number] Name: GERMANIA DONIS Rep #:[id number] : 1945 79 From: Pardeep Davila PCP: Dr. Sowmya Cabrera MD Status :ADM IN Location: [facility] ZC174-2 HPI HPI - GI History of Present [...] followed up and things were progressing normally. [facility] Medical History Umbilical hernia Wears glasses Wears [...] 100 mcg PO QDAY 09/27/24 11/03/24 History vosdswrq-vnrespvn-ssvwf acid 240 1 tab PO DAILY 11/03/24 History mcg-vit K1 150 mcg-herb 357 tablet (Alive Women's 50 Plus Ultra Multivitamin) vitamins A,C,R-hggm-kxgyvv 4,296 1 cap PO BID 09/27/24 11/03/24 [...] 83.2 H Lymph % (Auto) 9.5 L [place] % (Auto) 6.5 Eos % (Auto) 0.3 [...] Sl. Cloudy Urine pH 6.0 Ur Specific [place] 1.010 Urine Protein 15 H Urine Glucose [...] at 10:34 a.m. on 12/04/2024. Reading Location: [id number] Management Discussion w/another healthcare provider: Herb Digger (Dr Light) and Radiologist Discharge Plan Dx/Rx/DC Orders Clinical Impression: Perforated small intestine, Intra-abdominal abscess, Pneumoperitoneum, Abdominal pain, acute Disposition Disposition: Acute Care Hospital [facility] What to do if you have Problems For any increased pain, shortness of breath, bleeding, nausea or vomiting, chestpain, or any unexpected problems, contact your Primary Care Provider. Call [facility] ([phone]) or report tothe closest Emergency Room. Call 911 if necessary. 12/04/24 1524 Cosigner Signature (if applicable): CC: Dr. Sowmya Cabrera MD ~ Signed [facility]04-12-2025 Consult note [facility] Medical Records Department [address] [place] [address] Anesthesia Postop Eval II 12/04/24 1459 MR#: [id number] Acct: [id number] Name: GERMANIA DONIS Rep #:[id number] : 1945 79 From: Pardeep Lara PCP: [...] MD Cosigner Signature: Date CC: ~ Signed [facility]04-12-2025 Consult note [facility] Medical Records Department [address] [place] [address] Anesthesia Postop Eval I 12/04/24 1457 MR#: [id number] Acct: [id number] Name: GERMANIA DONIS Rep #:[id number] : 1945 79 From: Pardeep Lara PCP: Dr. Sowmya Cabrera MD Status :ADM IN Y Race: C Location: [facility] MS317 -1 Anesthesia: Postop Eval I Current [...] MD Cosigner Signature: Date CC: ~ Signed [facility]04-12-2025 Consult note Author Pardeep Pierre [facility] Note Date/Time December 04, 2024 12: 37pm [facility] Medical Records Department [address] [place] [address] Pre-Anesthesia Evaluation 12/04/24 1205 MR#: [id number] Acct: [id number] Name: GERMANIA DONIS Rep #:[id number] : 1945 79 From: Pardeep Lara PCP: Dr. Sowmya Cabrera MD Status :REG SD Y Race: C Location: [place] [address] ASA Classification* ASA Classification ASA Classification: 3 [...] Bowl removal Anesthesia History Anesthesia History - paper folder: Anesthesia History - paper folder Hx Hospitalization No 10/21/24 10:11 Any Problems [...] Any additional information?: No PONV PONV - paper folder: PONV - paper folder Female HX of Motion Sickness HX of N/V After Surgery Non-Smoker Duration of Surgery greater than 60 minutes Number of Risk Factors PONV Score Any additional information?: No Height & Weight Height & Weight: Anesthesia: Height & Weight Height 5 ft 2 in 12/04/24 07:33 Weight: 65.771 kg 12/04/24 07:33 Body Mass Index (BMI) 26.5 12/04/24 07:33 Respiratory Assessment Respiratory Assessment - paper folder: Respiratory Tract Infection Hx - paper folder Hx Respiratory Tract Infection No 10/21/24 10:11 STOP Sleep Apnea STOP Sleep Apnea - paper folder: STOP Sleep Apnea - paper folder Hx Hypertension No 10/21/24 10:11 Hx Sleep [...] Tobacco Use History Tobacco Use History - paper folder: Tobacco Use History - paper folder Tobacco Use Smoking Status Never smoker 12/04/24 07:55 Hx Tobacco Use No 10/21/24 10:11 Years Smoking Packs Smoked per Day Smoking Cessation Date was within the last 15 years Hx Smoking Cessation Date Hx Smoking Cessation Counseling Hematologic Medial History Hematologic Hx - paper folder: 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 Specify any problems Hx of Preganancy in last 3 Months Nurse Filling Out Transfusion & Questions: Date: Time: Patient unable to answer at this time (ie. confused, unrespo /Reproduction History /Reproductive History - paper folder: /Reproductive Hx- paper folder Hx Now Gestational Age (in weeks): EDC: Hx Hx Para Hx Section SAB No 10/21/24 10:11 [facility] Medical History Umbilical hernia Wears glasses [...] 100 mcg PO DAILY 5 12/03/24 History bpyycisl-mgrvmdtb-vrynr acid 240 1 tab PO DAILY 12/03/24 History mcg-vit K1 150 mcg-herb 357 tablet (Alive Women's 50 Plus Ultra Multivitamin) vitamins A,C,V-dnqx-snudaq 4,296 1 cap PO BID 09/27/24 12/03/24 [...] MD Cosigner Signature: Date CC: ~ Signed [facility] Work Phone: 1(730) 503-944304-12-2025 History and physical note Author Darrick Light [facility] Note Date/Time December 04, 2024 11: 41am [facility] Medical Records Department [address] [place] [address] History & Physical Exam 12/04/24 1125 MR#: [id number] Acct: [id number] Name: GERMANIA DONIS Rep #:[id number] : 1945 79 From: Darrick Lara PCP: Dr. Sowmya Cabrera MD Status :REG ER Location: ED HPI - General General Date of Admission: 12/04/24 Chief Complaint: Acute onset abdominal pain and anorexia HPI Narrative GERMANIA DONIS, is a 79 F who presents with her to [facility] due to complaints of acute onset abdominal [...] tubal ligation procedure approximately 40 years ago. [facility] Medical History Umbilical hernia Wears glasses [...] 100 mcg PO QDAY 09/27/24 11/03/24 History olfpdaem-lrtjmgxl-xrrpv acid 240 1 tab PO DAILY 11/03/24 History mcg-vit K1 150 mcg-herb 357 tablet (Alive Women's 50 Plus Ultra Multivitamin) vitamins A,C,M-rcak-pnnewi 4,296 1 cap PO BID 09/27/24 11/03/24 [...] 83.2 H, Lymph % (Auto) 9.5 L, [place] % (Auto) 6.5, Eos % (Auto) 0.3, [...] Sl. Cloudy, Urine pH 6.0, Ur Specific [place] 1.010, Urine Protein 15 H, Urine Glucose [...] at 10:34 a.m. on 12/04/2024. Reading Location: [id number] Assessment & Plan Assessment/Plan (1) Perforated small [...] Light MD General Surgery Endocrine Surgery Pager: [facility] [address] [place] [address], Outpatient Pavilion, [address] [place] [address] Office: [phone] (2) Pneumoperitoneum: Charges/Coding Visit Charges Inpatient E&M: 79436 Init Hosp L2 12/04/24 1141 <Electronically signed by Darrick Light MD> Cosigner Signature (if applicable): CC: Dr. Sowmya Cabrera MD; Dr. Darrick Light MD~ Signed [facility] Work Phone: 1(916) 901-552104-12-2025 Consult note [facility] Medical Records Department [address] [place] [address] Pre-Anesthesia Evaluation 12/04/24 1205 MR#: [id number] Acct: [id number] Name: GERMANIA DONIS Rep #:[id number] : 1945 79 From: Pardeep Lara PCP: Dr. Sowmya Cabrera MD Status :REG [facility] Y Race: C Location: [place] [address] ASA Classification* ASA Classification ASA Classification: 3 [...] Bowl removal Anesthesia History Anesthesia History - paper folder: Anesthesia History - paper folder Hx Hospitalization No 10/21/24 10:11 Any Problems [...] Any additional information?: No PONV PONV - paper folder: PONV - paper folder Female HX of Motion Sickness HX of N/V After Surgery Non-Smoker Duration of Surgery greater than 60 minutes Number of Risk Factors PONV Score Any additional information?: No Height & Weight Height & Weight: Anesthesia: Height & Weight Height 5 ft 2 in 12/04/24 07:33 Weight: 65.771 kg 12/04/24 07:33 Body Mass Index (BMI) 26.5 12/04/24 07:33 Respiratory Assessment Respiratory Assessment - paper folder: Respiratory Tract Infection Hx - paper folder Hx Respiratory Tract Infection No 10/21/24 10:11 STOP Sleep Apnea STOP Sleep Apnea - paper folder: STOP Sleep Apnea - paper folder Hx Hypertension No 10/21/24 10:11 Hx Sleep [...] Tobacco Use History Tobacco Use History - paper folder: Tobacco Use History - paper folder Tobacco Use Smoking Status Never smoker 12/04/24 07:55 Hx Tobacco Use No 10/21/24 10:11 Years Smoking Packs Smoked per Day Smoking Cessation Date was within the last 15 years Hx Smoking Cessation Date Hx Smoking Cessation Counseling Hematologic Medial History Hematologic Hx - paper folder: 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 Specify any problems Hx of Preganancy in last 3 Months Nurse Filling Out Transfusion & Questions: Date: Time: Patient unable to answer at this time (ie. confused, unrespo /Reproduction History /Reproductive History - paper folder: /Reproductive Hx- paper folder Hx Now Gestational Age (in weeks): EDC: [...] 100 mcg PO DAILY 5 12/03/24 History cgwrrxur-hscsrzeq-rbgtt acid 240 1 tab PO DAILY 12/03/24 History mcg-vit K1 150 mcg-herb 357 tablet (Alive Women's 50 Plus Ultra Multivitamin) vitamins A,C,A-hfuf-rxqgxg 4,296 1 cap PO BID 09/27/24 12/03/24 [...] MD Cosigner Signature: Date CC: ~ Signed [facility]04-12-2025 History and physical note [facility] Medical Records Department [address] [place] [address] History & Physical Exam 12/04/24 1125 MR#: [id number] Acct: [id number] Name: GERMANIA DONIS Rep #:[id number] : 1945 79 From: Darrick Lara PCP: Dr. Sowmya Cabrera MD Status :REG ER Location: ED HPI - General General Date of Admission: 12/04/24 Chief Complaint: Acute onset abdominal pain and anorexia HPI Narrative GERMANIA DONIS, is a 79 F who presents with her to [facility] due to complaints of acute onset abdominal [...] tubal ligation procedure approximately 40 years ago. [facility] Medical History Umbilical hernia Wears glasses [...] 100 mcg PO QDAY 09/27/24 11/03/24 History nnvapftg-txotutwy-dnssv acid 240 1 tab PO DAILY 11/03/24 History mcg-vit K1 150 mcg-herb 357 tablet (Alive Women's 50 Plus Ultra Multivitamin) vitamins A,C,A-jjfr-udjfav 4,296 1 cap PO BID 09/27/24 11/03/24 [...] 83.2 H, Lymph % (Auto) 9.5 L, [place] % (Auto) 6.5, Eos % (Auto) 0.3, [...] Sl. Cloudy, Urine pH 6.0, Ur Specific [place] 1.010, Urine Protein 15 H, Urine Glucose [...] at 10:34 a.m. on 12/04/2024. Reading Location: [id number] Assessment & Plan Assessment/Plan (1) Perforated small [...] Light MD General Surgery Endocrine Surgery Pager: [facility] [address] [place] [address], [address] [place] [address] Office: [phone] (2) Pneumoperitoneum: Charges/Coding Visit Charges Inpatient E&M: 38262 Init Hosp L2 12/04/24 1141 Cosigner Signature (if applicable): CC: Dr. Sowmya Cabrera MD; Dr. Darrick Light MD~ Signed [facility]04-12-2025 [facility] Medical Records Department [address] [place] [address] History Physical Exam 12/04/24 1125 MR#: [id number] Acct: [id number] Name: GERMANIA DONIS Rep #: [id number] : 1945 79 From: Darrick Light MD PCP: Dr. Sowmya Cabrera MD Status:REG ER Location: ED HPI - General General Date of Admission: 12/04/24 Chief Complaint: Acute onset abdominal pain and anorexia HPI Narrative GERMANIA DONIS, is a 79 F who presents with her to [facility] due to complaints of acute onset abdominal [...] tubal ligation procedure approximately 40 years ago. [facility] Medical History Umbilical hernia Wears glasses [...] 100 mcg PO QDAY 09/27/24 11/03/24 History txwxquqv-mcszmtqi-lgesi acid 240 1 tab PO DAILY 09/27/24 11/03/24 H istory mcg-vit K1 150 mcg-herb 357 tablet (Alive Women's 50 Plus Ultra Multivitamin) vitamins A,C,E-rrxf-fanpdf 4,296 1 cap PO BID 09/27/24 11/03/24 [...] 83.2 H, Lymph % (Auto) 9.5 L, [place] % (Auto) 6.5, Eos % (Auto) 0.3, [...] Bilirubin 0.59, Direct Biliru (more content not included)...[facility]04-12-2025 Radiology Diagnostic study note [facility] Imaging Services [address] [place] [address] Abdomen/Pelvis WITH Contrast MR#: [id number] Acct: [id number] Name: GERMANIA DONIS Rep #: [id number] : 1945 F 79 From: Lorena Stevens MD PCP: Dr. Sowmya Cabrera MD Status: REG ER Study:Abdomen/Pelvis WITH Contrast Date of Ex am: 12/04/24 Exam# [id number] Ordering Dr: Jane Naranjo DO PROCEDURE: ABDOMEN/PELVIS [...] at 10:34 a.m. on 12/04/2024. Reading Location: [facility] CC: Dr. Sowmya Cabrera MD; Dr. Pardeep Naranjo, DO ~ Teletype Mechanic: Signed [facility]03-13-2025 Consult note Author Cyrus Martinezorestes [facility] Note Date/Time November 04, 2024 9:4 0am [facility] Medical Records Department [address] [place] [address] Anesthesia Postop Eval I 11/04/24 0833 MR#: [id number] Acct: [id number] Name: GERMANIA DONIS Rep #:[id number] : 1945 79 From: Cyrus davila CRNA PCP: Dr. Sowmya Cabrera MD Status :REG SDC Y Race: C Location: [place] [address] Anesthesia: Postop Eval I Current Vital Signs [...] ZONIA Cosigner Signature: Date CC: ~ Signed [facility] Work Phone: 1(264) 527-817303-13-2025 Discharge summary Author Shelly Leonard [facility] Note Date/Time November 04, 2024 8:1 0am [facility] Medical Records Department [address] [place] [address] Instructions for Home/Discharge Instructions 11/04/24 0808 MR#: [id number] Acct: [id number] Name: GERMANIA DONIS Rep #:[id number] : 1945 79 From: Shelly Leonard MD PCP: Dr. Sowmya Cabrera MD Status :REG [facility] Discharge Instructions Diet Discharge Diet: Light diet [...] weeks; after 5 PM and on call [phone] with any concerns. Test Results: Test results [...] the other half the bottle. Print Language: Chilean Discharge Orders/Prescriptions Prescriptions: New oxycodone 5 mg [...] CC: Dr. Sowmya Cabrera MD ~ Signed [facility] Work Phone: 1(268) 531-684203-13-2025 Consult note [facility] Medical Records Department [address] [place] [address] Anesthesia Postop Eval I 11/04/24 0833 MR#: [id number] Acct: [id number] Name: GERMANIA DONIS Rep #:[id number] : 1945 79 From: Cyrus davila CRNA PCP: Dr. Sowmya Cabrera MD Status :REG [facility] Y Race: C Location: [place] [address] Anesthesia: Postop Eval I Current Vital Signs [...] Eval 1 completed: Yes 11/04/24 0940 ero TOWER CONTROL OPERATOR> Date _ Cyrus Jain Signature: Date CC: ~ Signed [facility]03-13-2025 History and physical note Author Shelly Leonard [facility] Note Date/Time November 04, 2024 7:1 9am [facility] Medical Records Department [address] [place] [address] H&P Exam - Surgical 11/04/24 0717 MR#: [id number] Acct: [id number] Name: GERMANIA DONIS Rep #:[id number] : 1945 79 From: Shelly Leonard MD PCP: Dr. Sowmya Cabrera MD Status :[facility] Location: [place] [address] HPI - General General Date of Service: [...] it repaired. Patient denies any abdominal surgeries. [facility] Medical History Wears glasses Wears partial dentures [...] 100 mcg PO QDAY 09/27/24 11/03/24 History dnfekyjk-rsejrpjp-xyzod acid 240 1 tab PO DAILY 11/03/24 History mcg-vit K1 150 mcg-herb 357 tablet (Alive Women's 50 Plus Ultra Multivitamin) vitamins A,C,Z-zbmg-evexra 4,296 1 cap PO BID 09/27/24 11/03/24 [...] further questions time. Shelly Leonard M.D. Pager: [phone] [facility] [address] [place] [address], [facility], [address] [place] [address] Office: [phone] 11/04/24 0719 <Electronically signed by Shelly Leonard MD> Cosigner Signature (if applicable): CC: Dr. Sowmya Cabrera MD; Dr. Shelly Leonard MD~ Signed [facility] Work Phone: 1(637) 549-236603-13-2025 Consult note Author Man Link [facility] Note Date/Time November 04, 2024 6:4 6am [facility] Medical Records Department [address] [place] [address] Pre-Anesthesia Evaluation 11/04/24 0637 MR#: [id number] Acct: [id number] Name: GERMANIA DONIS Rep #:[id number] : 1945 79 From: Man Link MD PCP: Dr. Sowmya Cabrera MD Status :REG SDC Y Race: C Location: [place] [address] ASA Classification* ASA Classification ASA Classification: 3 [...] poss Mesh Anesthesia History Anesthesia History - paper folder: Anesthesia History - paper folder Hx Hospitalization No 10/21/24 10:11 Any Problems [...] take am of surgery PONV PONV - paper folder: PONV - paper folder Female Yes 10/21/24 10:11 HX of Motion [...] 11/04/24 06:19 Respiratory Assessment Respiratory Assessment - paper folder: Respiratory Tract Infection Hx - paper folder Hx Respiratory Tract Infection No 10/21/24 10:11 STOP Sleep Apnea STOP Sleep Apnea - paper folder: STOP Sleep Apnea - paper folder Hx Hypertension No 10/21/24 10:11 Hx Sleep [...] Tobacco Use History Tobacco Use History - paper folder: Tobacco Use History - paper folder Tobacco Use Smoking Status Never smoker 10/21/24 10:11 Hx Tobacco Use No 10/21/24 10:11 Years Smoking Packs Smoked per Day Smoking Cessation Date was within the last 15 years Hx Smoking Cessation Date Hx Smoking Cessation Counseling Hematologic Medial History Hematologic Hx - paper folder: 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 Hx of Blood Transfusion No 10/21/24 10:11 [...] confused, unrespo /Reproduction History /Reproductive History - paper folder: /Reproductive Hx- paper folder Hx Now No 10/21/24 10:11 Gestational Age [...] 19:19 15 mls/hr .Q48H ESTEPHANIE Administration Protocol [facility] Medical History Wears glasses Wears partial dentures [...] 100 mcg PO QDAY 09/27/24 11/03/24 History sycxwkxf-mfuelqlj-jvnjn acid 240 1 tab PO DAILY 11/03/24 History mcg-vit K1 150 mcg-herb 357 tablet (Alive Women's 50 Plus Ultra Multivitamin) vitamins A,C,W-fkrz-nvfvib 4,296 1 cap PO BID 09/27/24 11/03/24 [...] MD Cosigner Signature: Date CC: ~ Signed [facility] Work Phone: [phone]) 856-872203-13-2025 Procedure note [facility] Medical Records Department [address] [place] [address] Operative Report 11/04/24 0805 MR#: [id number] Acct: [id number] Name: GERMANIA DONIS Rep #:[id number] : 1945 79 From: Shelly Leonard MD PCP: Dr. Sowmya Cabrera MD Status :[facility] Location: [place] [address] Operative Report (Standard) Operative Information Date of Procedure: 11/04/24 Pre-Operative Diagnosis: Umbilical hernia Post-Operative Diagnosis: Same Surgery/Procedure Performed: Umbilical hernia repair with mesh clearing house clerk: Yes Legal Mediator: Timoteo Ruiz Tasks completed by certified surgical first assistant: Opening & closing Type of Anesthesia: [...] hernia patch 4.3 cm in diameter, Lot [id number] ref [id number] Special Medications: Ancef 2 g IV x [...] suture.The hernia defect was closed with a cgyxrd-aj-wqpop 0 Nurolon. The wound was irrigated with [...] Cabrera MD; Dr. Shelly Leonard MD~ Signed [facility]03-13-2025 Discharge summary [facility] Medical Records Department [address] [place] [address] Instructions for Home/Discharge Instructions 11/04/2408 MR#: [id number] Acct: [id number] Name: GERMANIA DONIS Rep #:[id number] : 1945 79 From: Shelly Leonard MD PCP: Dr. Sowmya Cabrera MD Status :REG [facility] Discharge Instructions Diet Discharge Diet: Light diet [...] weeks; after 5 PM and on call [phone] with any concerns. Test Results: Test results [...] the other half the bottle. Print Language: Chilean Discharge Orders/Prescriptions Prescriptions: New oxycodone 5 mg [...] CC: Dr. Sowmya Cabrera MD ~ Signed [facility]03-13-2025 History and physical [facility] Department [address] [place] [address] H&P Exam - Surgical 11/04/24 0717 MR#: [id number] Acct: [id number] Name: GERMANIA DONIS Rep #:[id number] : 1945 79 From: Shelly Leonard MD PCP: Dr. Sowmya Cabrera MD Status :[facility] Location: [place] [address] HPI - General General Date of Service: [...] having it repaired. Patientdenies any abdominal surgeries. [facility] Medical History Wears glasses Wears partial dentures [...] 100 mcg PO QDAY 09/27/24 11/03/24 History pgiaezxv-vehhxbls-jqxqg acid 240 1 tab PO DAILY 11/03/24 History mcg-vit K1 150 mcg-herb 357 tablet (Alive Women's 50 Plus Ultra Multivitamin) vitamins A,C,N-jfhj-xrvcum 4,296 1 cap PO BID 09/27/24 11/03/24 [...] further questions time. Shelly Leonard M.D. Pager: [phone] [facility] [address] [place] [address], Outpatient [address]ilion, [address] [place] [address] Office: [phone] 11/04/24 0719 Cosigner Signature (if applicable): CC: Dr. Sowmya Cabrera MD; Dr. Shelly Leonard MD~ Signed [facility]03-13-2025 Consult note [facility] Medical Records Department [address] [place] [address] Pre-Anesthesia Evaluation 11/04/24 0637 MR#: [id number] Acct: [id number] Name: GERMANIA DONIS Rep #:[id number] : 1945 79 From: Man Link MD PCP: Dr. Sowmya Cabrera MD Status :REG SDC Y Race: C Location: [place] [address] ASA Classification* ASA Classification ASA Classification: 3 [...] poss Mesh Anesthesia History Anesthesia History - paper folder: Anesthesia History - paper folder Hx Hospitalization No 10/21/24 10:11 Any Problems [...] take am of surgery PONV PONV - paper folder: PONV - paper folder Female Yes 10/21/24 10:11 HX of Motion [...] 11/04/24 06:19 Respiratory Assessment Respiratory Assessment - paper folder: Respiratory Tract Infection Hx - paper folder Hx Respiratory Tract Infection No 10/21/24 10:11 STOP Sleep Apnea STOP Sleep Apnea - paper folder: STOP Sleep Apnea - paper folder Hx Hypertension No 10/21/24 10:11 Hx Sleep [...] Tobacco Use History Tobacco Use History - paper folder: Tobacco Use History - paper folder Tobacco Use Smoking Status Never smoker 10/21/24 10:11 Hx Tobacco Use No 10/21/24 10:11 Years Smoking Packs Smoked per Day Smoking Cessation Date was within the last 15 years Hx Smoking Cessation Date Hx Smoking Cessation Counseling Hematologic Medial History Hematologic Hx - paper folder: 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 Hx of Blood Transfusion No 10/21/24 10:11 [...] confused, unrespo /Reproduction History /Reproductive History - paper folder: /Reproductive Hx- paper folder Hx Now No 10/21/24 10:11 Gestational Age [...] 19:19 15 mls/hr .Q48H ESTEPHANIE Administration Protocol [facility] Medical History Wears glasses Wears partial dentures [...] 100 mcg PO QDAY 09/27/24 11/03/24 History iocribeu-rntziuci-tzoig acid 240 1 tab PO DAILY 11/03/24 History mcg-vit K1 150 mcg-herb 357 tablet (Alive Women's 50 Plus Ultra Multivitamin) vitamins A,C,T-qxsg-hktaqo 4,296 1 cap PO BID 09/27/24 11/03/24 [...] murmur 11/04/24 0646 > Date _ Man Likn MD Cosigner Signature: Date CC: ~ Signed [facility]02-03-2025 Evaluation note* Diagnosis Onset Date Resolution Status Admit Date Umbilical hernia acute September 27, 2024 1:58pm Umbilical hernia acute November 042024 5:26am [facility] Work Phone: 1(722) 165-391902-03-2025 Evaluation note* Diagnosis Onset Date Resolution Status Admit Date Umbilical hernia resolved September 27, 2024 1:58pm Umbilical hernia resolved November 042024 5:26am S/P umbilical hernia repair, follow-up exam acute November 19, 2024 9:54am Abdominal pain, acute acute Apr 2024 12:22pm Intra-abdominal abscess acute A pril 2024 12:22pm Perforated small intestine acute December 04, 2024 12:22pm Pneumoperitoneum acute December 042024 12:22pm [facility] Work Phone: 1(609) 989-282502-03-2025 Evaluation note* Diagnosis Onset Date Resolution Status Admit Date Umbilical hernia resolved September 27, 2024 1:58pm Umbilical hernia resolved November 042024 5:26am S/P umbilical hernia repair, follow-up exam acute November 19, 2024 9:54am Abdominal pain, acute acute Nov 2:29pm Intra-abdominal abscess acute A 2024 2:29pm Perforated small intestine acute December 04, 2024 2:29pm Pneumoperitoneum acute December 042024 2:29pm [facility] Work Phone: 1(818) 673-212702-03-2025 Evaluation note* Diagnosis Onset Date Resolution Status [...] bowel resection acute December 20, 2024 9:56am [facility] Work Phone: 1(532) 664-631410-02-2024 Consult note Author Man Link [facility] Note Date/Time November 04, 2024 11: 23am [facility] Medical Records Department [address] [place] [id number] Anesthesia Postop Eval II 11/04/24 1122 MR#: [id number] Acct: [id number] Name: GERMANIA DONIS Rep #:[id number] : 1945 79 From: Man Link MD PCP: Dr. Sowmya Cabrera MD Status :[facility] Y Race: C Location: [facility] Anesthesia Postop Eval I Sum Postop Eval Completion status Anesthesia document: Postop Eval 1 completed: Yes Anesthesia Postop Eval I Summary Anesthesia Postop Eval I Summary: Anesthesia Postop Eval I: Assessment Summary Airway patent Yes 11/04/24 09:40 TOWER CONTROL OPERATOR.ACAR Spontaneous unlabored Yes 11/04/24 09:40 TOWER CONTROL OPERATOR.ACAR respirations Mental status nausea No 11/04/24 09:40 TOWER CONTROL OPERATOR.ACAR Vomiting No 11/04/24 09:40 TOWER CONTROL OPERATOR.ACAR Anesthesia Postop Eval I: Fluid Summary Crystalloid volume administer 1,000 11/04/24 09:40 TOWER CONTROL OPERATOR.ACAR (ml) Colloids volume administered ( ml) Blood Product volume administered (ml) Total IV fluid infused 1,000 11/04/24 09:40 TOWER CONTROL OPERATOR.ACAR Anesthesia Postop Eval I: Summary Notes Anesthesia Complication No 11/04/24 09:40 TOWER CONTROL OPERATOR.ACAR Anesthesia Complication Comment: Post-operative progress note Anesthesia: Postop Eval II Evaluation Mental status: Awake Pain Level: 0 nausea: No Vomiting: No Complications Anesthesia Complication: No 11/04/24 1123 <Electronically signed by Man Link MD> Date _ Man Link MD Cosigner Signature: Date CC: ~ Signed [facility] Work Phone: 1(111) 229-129406-02-2023 Discharge summary Author Sary Mejia [facility] January 24, 2023 9:56am Note Date/Time January 24, 2023 9:56a m [facility] Physical Therapy Health[address] [place] [address] / REHABILITATION SERVICES DISCHARGE SUMMARY MR#: [id number] Acct: [id number] Name: GERMANIA DONIS Rep #: [id number] : 1945 77 From: Sary Mejia PT, Cert. MDT Referring Dr.: Dr. Mann Cabrera MD Statu s: REG RCR Insurance: MEDICARE PART A B [facility] It has been my pleasure to treat [...] please feel free to call me at [phone]. Thank you for the referral of thispatient. Sincerely, Sary Mejia PT, Cert MDT Balance/Gait/Functional tests - Balance/Special Test Scores Oswestry Low Back Score: 3 <Electronically signed by Sary Mejia PT, Cert. MDT> 01/24/23 0956 CC: Dr. Mann Cabrera MD ~ ALBARO Signed [facility] Work Phone: Consult note [facility] Medical Records Department [address] [place] [address] Anesthesia Postop Eval II 11/04/24 1122 MR#: [id number] Acct: [id number] Name: GERMANIA DONIS Rep #:[id number] : 1945 79 From: Man Link MD PCP: Dr. Sowmya Cabrera MD Status :DEP [facility] Y Race: C Location: [facility] Anesthesia Postop Eval I Sum Postop Eval Completion status Anesthesia document: Postop Eval 1 completed: Yes Anesthesia Postop Eval I Summary Anesthesia Postop Eval I Summary: Anesthesia Postop Eval I: Assessment Summary Airway patent Yes 11/04/24 09:40 TOWER CONTROL OPERATOR.ACAR Spontaneous unlabored Yes 11/04/24 09:40 TOWER CONTROL OPERATOR.ACAR respirations Mental status nausea No 11/04/24 09:40 TOWER CONTROL OPERATOR.ACAR Vomiting No 11/04/24 09:40 TOWER CONTROL OPERATOR.ACAR Anesthesia Postop Eval I: Fluid Summary Crystalloid volume administer 1,000 11/04/24 09:40 TOWER CONTROL OPERATOR.ACAR (ml) Colloids volume administered ( ml) Blood Product volume administered (ml) Total IV fluid infused 1,000 11/04/24 09:40 TOWER CONTROL OPERATOR.ACAR Anesthesia Postop Eval I: Summary Notes Anesthesia Complication No 11/04/24 09:40 TOWER CONTROL OPERATOR.ACAR Anesthesia Complication Comment: Post-operative progress note Anesthesia: Postop Eval II Evaluation Mental status: Awake Pain Level: 0 nausea: No Vomiting: No Complications Anesthesia Complication: No 11/04/24 1123 MD> Date _ Man Link MD Cosigner Signature: Date CC: ~ [facility]igned [facility] note[facility] assessment information available [facility] Work Phone: History and physical note Author Darrick Light [facility] Note Date/Time December 04, 2024 11: 41am [facility] Medical Records Department [address] [place] [address] History & Physical Exam 12/04/24 1125 MR#: [id number] Acct: [id number] Name: GERMANIA DONIS Osmel Rep #:[id number] : [id number] 79 From: Darrick Lara PCP: Dr. Sowmya Cabrera MD Status :REG ER Location: ED HPI - General General Date of Admission: 12/04/24 Chief Complaint: Acute onset abdominal pain and anorexia HPI Narrative GERMANIA DONIS, is a 79 F who presents with her to [facility] due to complaints of acute onset abdominal [...] tubal ligation procedure approximately 40 years ago. [facility] Medical History Umbilical hernia Wears glasses [...] 100 mcg PO QDAY 09/27/24 11/03/24 History banitoxh-cdbwlmjr-buwcn acid 240 1 tab PO DAILY 11/03/24 History mcg-vit K1 150 mcg-herb 357 tablet (Alive Women's 50 Plus Ultra Multivitamin) vitamins A,C,E-cfux-txjmru 4,296 1 cap PO BID 09/27/24 11/03/24 [...] 83.2 H, Lymph % (Auto) 9.5 L, [place] % (Auto) 6.5, Eos % (Auto) 0.3, [...] Sl. Cloudy, Urine pH 6.0, Ur Specific [place] 1.010, Urine Protein 15 H, Urine Glucose [...] at 10:34 a.m. on 12/04/2024. Reading Location: [id number] Assessment & Plan Assessment/Plan (1) Perforated small [...] indicated. [facility] to monitorfor pain control and advancement of the diet. Darrick Light MD General Surgery Endocrine Surgery Pager: [facility] [address] [place] [address], [facility], [address] [place] [address] Office: [phone] (2) Pneumoperitoneum: Charges/Coding Visit Charges Inpatient E&M: 69199 Init Hosp L2 12/04/24 1141 <Electronically signed by Darrick Light MD> Cosigner Signature (if applicable): CC: Dr. Sowmya Cabrera MD; Dr. Darrick Light MD~ Signed [facility] Work Phone: Reason for referral (narrative)No reason for referral information availableWMercy Health St[facility] Work Phone: Summary Purpose Family History No Family History Records Found Relationship Condition Age at Onset Recorded Date/T josey sister Diabetes mellitus Unknown Advance Directives No Advanced Directives Records Found Advance Directive Response Recorded Date/ Time Living Will Yes October 21 11:11am Power of Earth Science Teacher Yes October 21, 2024 11:11am Name of Medical Power of Earth Science Teacher October 21, 2024 11:11am Advance Directive Response Recorded Date/ Time Living Will No December 04, 2024 7:55am Do you have a Healthcare Power of Earth Science Teacher? No December 04, 2024 7:55am Living Will Yes February 27th, 2 025 11:11am Do you have a Healthcare Power of Earth Science Teacher? Yes October 21, 2024 11:11am Name of Medical Power of Earth Science Teacher October 21, 2024 11:11am Advance Directive Response Recorded Date/ Time Living Will No December 04, 2024 3:59pm Do you have a Healthcare Power of Earth Science Teacher? No December 04, 2024 3:59pm Living Will Yes October 21 11:11am Do you have a Healthcare Power of Earth Science Teacher? Yes October 21, 2024 11:11am Name of Medical Power of Earth Science Teacher October 21, 2024 11:11am Chief Complaint and [...] section and content) DATE CREATED AUTHOR 02/16/2018 [facility] DATE CREATED AUTHOR AUTHOR'S ORGANIZ ATION 09/03/2021 [facility] DATE CREATED AUTHOR AUTHOR'S ORGANIZ ATION 01/06/2025 [facility] Goals (unrecognized section and content) Goals may [...] 20, 2024 End: July 20, 2024 Dr. Swomya Cabrera MD Referring Provider Active Start: July [...] BE BASED ON THE PRIMARY CLINICAL RECORDS. [facility] [employer] provides no warranty or guarantee of the accuracy or completeness of information in this document.
[2025-01-29] MEDS: Oxymetazoline 0.05% 1 SPRAY SPRAY.BTL 2 SPRAY NASAL (01:51)
--- NOTE | 2025-01-29 02:30 | RAD_ITS ---
PROCEDURE: ABD DECUB AND/OR ERECT(PORTABL 01/29/2025 REASON FOR EXAM: SBO TECHNIQUE: 4 frontal views of the abdomen. COMPARISON: CT abdomen and pelvis on 01/28/2025 FINDINGS: Enteric tube tip and side port project over the expected location of the stomach. There are scattered air-fluid levels, to include a loop of small bowel in the left abdomen measuring 3.4 cm in diameter. Colon appears unremarkable. Contrast fills the urinary bladder. Degenerative changes and rightward curvature of the lumbar spine. RAD/Abd Decub and/or Erect(Portabl IMPRESSION: 1. Appropriate positioning of the enteric tube. 2. There are few prominent loops of small bowel containing air-fluid level, in keeping with recent CT findings of small-bowel obstruction. Reading Location: [id number]
--- OUTSIDE RECORDS SUMMARY | 2025-01-29 03:01 | XMS RPT_ITS | CCD ---
Author Organization [facility] CliniSyny Care Team Providers Care Stevedore Hold Name Role Phone JUANITA COATS Unavailable Unavailabl PABLO Craig ([place]) Unavailable Unavailable Dr. Mann Cabrera Primary Care Provider Dr. Jitendra Cabrera Attending Provider Deborah ORDAZ, Dr. Avila Primary Care Provider Dr. Sowmya Cabrera MD Attending Provider [phone] Deborah ORDAZ, Dr. Avila Referring Provider Lex Rhoades MD Attending Provider Dr. Shelly Leonard MD Attending Provider Dr. Shelly Leonard MD Referring Provider [phone] Dr. Shelly Leonard MD Other Provider Dr. Sowmya Cabrera MD Primary Care Provider Dr. Sowmya Cabrera MD Referring Provider Dr. Sowmya Cabrera MD Attending Provider Dr. [...] Care Unavailable Darrick Light Admitting Unavailable [place] Unavailable Eleonora Benedict Attending Unavailable Darrick Light Consulting Unavailable Darrick Light Attending Unavailable Sowmya Cabrera Referring Unavailable Darrick Light Attending Unavailable [facility], [facility] Unavailable Sowmya Cabrera Referring Unavailable Robotham, Shelly Attending Unavailable [facility], [facility] Unavailable Deborah, Sowmya Referring Unavailable Robotham, Shelly Attending Unavailable Deborah, [facility] Unavailable Jeronimo Anne Attending Unavailable Deborah, [facility] Unavailable Robotham, Shelly Referring Unavailable Robotham, Shelly Attending Unavailable Robotham, Shelly Consulting Unavailable [place], [facility] Unavailable [place], [facility] Unavailable Darrick Light Attending Unavailable Deborah, [facility] Unavailable Lex Rhoades Referring Unavailable Lex Rhoades Attending Unavailable Sowmya Cabrera Referring Unavailable Sowmya Cabrera Attending Unavailable Deborah, [facility] Unavailable Deborah, Sowmya Referring Unavailable Deborah, Sowmya Attending Unavailable [facility] Un[facility] Unavailable Lex Rhoades Attending Unavailable Sowmya Cabrera Referring Unavailable Sowmya Cabrera Attending Unavailable [place], [facility] Unavailable Robotham, Shelly Referring Unavailable Robotham, Shelly Attending Unavailable [place], [facility] Unavailable Medications Current [...] PO DAILY September 27, 2024 1:00am Mv-Mn-Folic Ffvf-M2-Sjgp 357 (Alive Women's 50 Plus Ultra Mv) 240-150 mcg tablet (4 sources) Start: 09-27-2024 Mv-Mn-Folic Czvu-L2-Xefq 357 (Alive Women's 50 Plus Ultra Mv) 240-150 mcg tablet Active 1 {tbl} PO DAILY September 27, 2024 1:00am Vitamins A,C,T-Ejki-Sommng (Preservision Areds) 4,296 mcg-226 mg-90 mg capsule (4 sources) Start: 09-27-2024 Vitamins A,C,E-Qfjf-Rhjzwd (Preservision Areds) 4,296 mcg-226 mg-90 mg capsule [...] Surgery Visit Reporton 12-20 Surgery Visit Report [facility] [address] [place] [address] OFFICE VISIT Date of Service: 12/20/24 MR#: [id number] Acct: [id number] Name: GERMANIA DONIS Rep #: [id number] : 1945 Provider: Dr. Darrick kendrick MD Age/Sex: 79/F Location: [facility] Status: Signed Intake Vital Signs 12/05/24 11:12 [...] 100 mcg PO DAILY 09/27/24 12/20/24 History inzanlvu-gitkoenk-ixek c acid 240 1 tab PO DAILY 09/27/24 12/20/24 H istory mcg-vit K1 150 mcg-herb 357 tablet (Alive Women's 50 Plus Ultra Multivitamin) vitamins A,C,S-ptcw-dyfffo 4,296 1 cap PO BID 09/27/24 12/20/24 [...] Op Diagnoses S/P small bowel resection Z90.49 [facility] Medical History (Updated 12/15/24 @ 00:00 [...] arrange f (more content not included)... Normal [facility] Absolute lymphocyte countOrd ered By: Eleonora Montaño on 12-07-2024 Lymphocytes Auto (Unsp spec) [#/Vol] 0.77 10*3/uL Low 0.83-4.[address] [facility] Absolute neutrophil countOrd ered By: Eleonora Montaño on 12-07-2024 Neutrophils (Bld) [#/Vol] 3.3 10*3/uL 2.0-7.[address] [facility] Anion gap in Serum or Plasma Ordered By: Eleonora Montaño on 12-07-2024 Anion gap [Moles/Vol] 9 mmol/L 01-06 [facility] Automated lymphocyte count a s percentage of total leukocytesOrdered By: Eleonora Montaño on 12-07-2024 Lymphocytes/100 WBC Auto (Unsp spec) 16.5 % Low 19-[address] [facility] BUN/creatinine ratioOrdered By: Eleonora Montaño on 12-07-2024 Urea nitrogen/Creatinine [Mass ratio] 17.0 mg/mg - [facility] Basic Metabolic Profile (BMP )on 12-07-2024 BUN/CRE 17.0 RATIO Normal - [facility] Comment on above: Performed By: #### L 500.2500, L501.5200, L100.0100, L501.2300 ####[facility] [address] [place], [address] Calcium [Mass/Vol] 8.1 mg/dL Normal 7.6-11.0 [facility] Comment on above: Performed By: #### L 500.2500, L501.5200, L100.0100, L501.2300 ####[facility] [address] [place], [address] Chloride [Moles/Vol] 113 mmol/L High 98-[address] [facility] Comment on above: Performed By: #### L 500.2500, L501.5200, L100.0100, L501.2300 ####[facility] [address] [place], [address] CO2 [Moles/Vol] 19.9 mmol/L Low 21.0-32.[address] [facility] Comment on above: Performed By: #### L 500.2500, L501.5200, L100.0100, L501.2300 ####[facility] [address] [place], [address] Creatinine [Mass/Vol] 0.71 mg/dL Normal 0.70-1.20 [facility] Comment on above: Performed By: #### L 500.2500, L501.5200, L100.0100, L501.2300 ####[facility] [address] [place], [address] ECRCL 52.40 ml/min Normal 50-[address] [facility] Comment on above: Performed By: #### L 500.2500, L501.5200, L100.0100, L501.2300 ####[facility] [address] [place], [address] GAP 9 Normal 5-[address] [facility] Comment on above: Performed By: #### L 500.2500, L501.5200, L100.0100, L501.2300 ####[facility] [address] [place], [address] GFR/1.73 sq M.predicted among non-blacks MDRD (S/P/Bld) [Vol rate/Area] 88 mL/min/{1.73_m2} Normal >[address] [facility] Comment on above: Result Comment: mL/m in/1.73m2 CKD-EPI Creatinine Equation (2020) Performed By: #### L 500.2500, L501.5200, L100.0100, L501.2300 ####[facility] [address] [place], [address] Glucose [Mass/Vol] 87 mg/dL Normal 70-99 [facility] Comment on above: Performed By: #### L 500.2500, L501.5200, L100.0100, L501.2300 ####[facility] [address] [place], [address] Potassium [Moles/Vol] 3.8 mmol/L Normal 3.3-5.1 [facility] Comment on above: Performed By: #### L 500.2500, L501.5200, L100.0100, L501.2300 ####[facility] [address] [place], [address] Sodium [Moles/Vol] 141 mmol/L Normal 133-145 [facility] Comment on above: Performed By: #### L 500.2500, L501.5200, L100.0100, L501.2300 ####[facility] [address] [place], [address] Urea nitrogen [Mass/Vol] 12 mg/dL Normal 4-[address] [facility] Comment on above: Performed By: #### L 500.2500, L501.5200, L100.0100, L501.2300 ####[facility] [address] [place], [address] Basophil percentageOrdered B y: Eleonora Montaño on 12-07-2024 Basophils/100 WBC (Bld) 0.6 % 0-1 [facility] CBC W/Diff, Automatedon 11-23 Absolute Lymph 0.77 X10 3/uL Low 0.83-4.[address] [facility] Comment on above: Performed By: #### L 500.2500, L501.5200, L100.0100, L501.2300 ####[facility] [address] [place], [address] Absolute Neut 3.3 X10 3/uL Normal 2.0-7.[address] [facility] Comment on above: Performed By: #### L 500.2500, L501.5200, L100.0100, L501.2300 ####[facility] [address] [place], [address] Basophils/100 WBC (Bld) 0.6 % Normal 0-1 [facility] Comment on above: Performed By: #### L 500.2500, L501.5200, L100.0100, L501.2300 ####[facility] [address] [place], [address] Eosinophils/100 WBC (Bld) 2.6 % Normal 0-[address] [facility] Comment on above: Performed By: #### L 500.2500, L501.5200, L100.0100, L501.2300 ####[facility] [address] [place], [address] Erythrocyte distribution width (RBC) [Ratio] 14.3 % Normal 11.6-14.[address] [facility] Comment on above: Performed By: #### L 500.2500, L501.5200, L100.0100, L501.2300 ####[facility] [address] [place], [address] Hematocrit (Bld) [Volume fraction] 31.8 % Low 37-[address] [facility] Comment on above: Performed By: #### L 500.2500, L501.5200, L100.0100, L501.2300 ####[facility] [address] [place], [address] Hemoglobin (Bld) [Mass/Vol] 10.4 g/dL Low 12.0-15.[address] [facility] Comment on above: Performed By: #### L 500.2500, L501.5200, L100.0100, L501.2300 ####[facility] [address] [place], [address] IG% 0.900 Normal 0.0-0.[address] [facility] Comment on above: Result Comment: IG% - Immature Granulocytes (promyelocytes, myelocytes and metamyelocytes) > 1% indicates that a LEFT SHIFT is Present. Performed By: #### L 500.2500, L501.5200, L100.0100, L501.2300 ####[facility] [address] [place], [address] Lymphocytes/100 WBC (Bld) 16.5 % Low 19-[address] [facility] Comment on above: Performed By: #### L 500.2500, L501.5200, L100.0100, L501.2300 ####[facility] [address] [place], [address] MCH (RBC) [Entitic mass] 29.9 pg Normal 27.0-32.[address] [facility] Comment on above: Performed By: #### L 500.2500, L501.5200, L100.0100, L501.2300 ####[facility] [address] [place], [address] MCHC (RBC) [Mass/Vol] 32.7 g/dL Normal 32-36 [facility] Comment on above: Performed By: #### L 500.2500, L501.5200, L100.0100, L501.2300 ####[facility] [address] [place], [address] MCV (RBC) [Entitic vol] 91.4 fL Normal 81-99 [facility] Comment on above: Performed By: #### L 500.2500, L501.5200, L100.0100, L501.2300 ####[facility] [address] [place], [address] Monocytes/100 WBC (Bld) 8.6 % Normal 0-10 [facility] Comment on above: Performed By: #### L 500.2500, L501.5200, L100.0100, L501.2300 ####[facility] [address] [place], [address] Neutrophils/100 WBC (Bld) 70.8 % High 47-[address] [facility] Comment on above: Performed By: #### L 500.2500, L501.5200, L100.0100, L501.2300 ####[facility] [address] [place], [address] Nucleated RBC (Bld) [#/Vol] 0 10*3/uL Normal 0-[address] [facility] Comment on above: Performed By: #### L 500.2500, L501.5200, L100.0100, L501.2300 ####[facility] [address] [place], [address] Platelet mean volume (Bld) [Entitic vol] 10.7 fL Normal 6.2-12.[address] [facility] Comment on above: Performed By: #### L 500.2500, L501.5200, L100.0100, L501.2300 ####[facility] [address] [place], [address] Platelets (Bld) [#/Vol] 217 10*3/uL Normal 150-[address] [facility] Comment on above: Performed By: #### L 500.2500, L501.5200, L100.0100, L501.2300 ####[facility] [address] [place], [address] RBC (Bld) [#/Vol] 3.48 10*6/uL Low 4.2-5.4 [facility] Comment on above: Performed By: #### L 500.2500, L501.5200, L100.0100, L501.2300 ####[facility] [address] [place], [address] RDW SD 47.8 fl High 35.1-43.[address] [facility] Comment on above: Performed By: #### L 500.2500, L501.5200, L100.0100, L501.2300 ####[facility] [address] [place], [address] WBC (Bld) [#/Vol] 4.7 10*3/uL Normal 4.4-11.0 [facility] Comment on above: Performed By: #### L 500.2500, L501.5200, L100.0100, L501.2300 ####[facility] [address] [place], [address] Carbon dioxide, total [Moles /volume] in Central venous bloodOrdered By: Eleonora Montaño on 12-07-2024 CO2 [Moles/Vol] 19.9 mmol/L Low 21.0-32.[address] [facility] Chloride assayOrdered By: Heide Montaño on 12-07-2024 Chloride [Moles/Vol] 113 mmol/L High 98-[address] [facility] Eosinophil percentageOrdered By: Eleonora Montaño on 12-07-2024 Eosinophils/100 WBC (Bld) 2.6 % 0-[address] [facility] Erythrocyte distribution wid th (RBC) [Ratio]Ordered By: Eleonora Montaño on 12-07-2024 Erythrocyte distribution width (RBC) [Entitic vol] 47.8 fL High 35.1-43.[address] [facility] Erythrocyte distribution wid th ratioOrdered By: Eleonora Montaño on 12-07-2024 Erythrocyte distribution width (RBC) [Ratio] 14.3 % 11.6-14.[address] [facility] Erythrocyte distribution wid th standard deviationOrdered By: Eleonora Montaño on 12-07-2024 Erythrocyte distribution width (RBC) [Ratio] 47.8 fl High 35.1-43.[address] [facility] Estimation of creatinine nora aranceOrdered By: Eleonora Montaño on 12-07-2024 Estimated Creatinine Clearance Calc 52.40 ml/min 50-[address] [facility] GFR/1.73 sq M.predicted [place] g non-blacks MDRD (S/P/Bld) [Vol rate/Area]Ordered By: Eleonora Montaño on 12-07-2024 Estimated GFR (MDRD) Non-Af Amer [address] [facility] Comment on above: mL/min/1.73m2 CKD-EP I Creatinine Equation (2020) Glomerular filtration rate ( GFR) estimation/1.73 sq m using serum, plasma, or whole bOrdered By: Eleonora Montaño on 12-07-2024 GFR/1.73 sq M.predicted among non-blacks MDRD (S/P/Bld) [Vol rate/Area] 88 mL/min/{1.73_m2} >[address] [facility] Comment on above: mL/min/1.73m2 CKD-EP I Creatinine Equation (2020) Hematocrit Auto (Bld) [Volum e fraction]Ordered By: Eleonora Montaño on 12-07-2024 Hematocrit (Bld) [Volume fraction] 31.8 % Low 37-[address] [facility] Hemoglobin measurementOrdere d By: Eleonora Montaño on 12-07-2024 Hemoglobin (Bld) [Mass/Vol] 10.4 g/dL Low 12.0-15.[address] [facility] Immature granulocytes/100 WB C Auto (Bld)Ordered By: Eleonora Montaño on 12-07-2024 Immature granulocytes/100 WBC (Bld) 0.900 % 0.0-0.[address] [facility] Comment on above: IG% - Immature Granu locytes (promyelocytes, myelocytes and metamyelocytes) > 1% indicates that a LEFT SHIFT is Present. Lymphocytes Auto (Unsp spec) [#/Vol]Ordered By: Eleonora Montaño on 12-07-2024 Lymphocytes (Bld) [#/Vol] 0.77 10*3/uL Low 0.83-4.[address] [facility] Lymphocytes/100 WBC Auto (Un sp spec)Ordered By: Eleonora Montaño on 12-07-2024 Lymphocytes/100 WBC (Bld) 16.5 % Low 19-[address] [facility] MCV (mean corpuscular volume ) determinationOrdered By: Eleonora Montaño on 12-07-2024 MCV (RBC) [Entitic vol] 91.4 fL 81-99 [facility] Magnesiumon 12-07-2024 Magnesium [Mass/Vol] 2.1 mg/dL Normal 1.5-2.[address] [facility] Comment on above: Performed By: #### L 500.2500, L501.5200, L100.0100, L501.2300 ####[facility] [address] [place], [place], [address] Magnesium (Unsp spec) [Mass/ Vol]Ordered By: Eleonora Montaño on 12-07-2024 Magnesium [Mass/Vol] 2.1 mg/dL 1.5-2.[address] [facility] Magnesium measurement (mass/ volume)Ordered By: Eleonora Montaño on 12-07-2024 Magnesium (Unsp spec) [Mass/Vol] 2.1 mg/dL 1.5-2.[address] [facility] Mean corpuscular hemoglobin (MCH) determinationOrdered By: Eleonora Montaño on 12-07-2024 MCH (RBC) [Entitic mass] 29.9 pg 27.0-32.[address] [facility] Mean corpuscular hemoglobin concentration (MCHC) determinationOrdered By: Eleonora Montaño on 12-07-2024 MCHC (RBC) [Mass/Vol] 32.7 g/dL 32-36 [facility] Mean platelet volume determi nationOrdered By: Eleonora Montaño on 12-07-2024 Platelet mean volume (Bld) [Entitic vol] 10.7 fL 6.2-12.[address] [facility] Monocyte percentageOrdered B y: Eleonora Montaño on 12-07-2024 Monocytes/100 WBC (Bld) 8.6 % 0-10 [facility] Neutrophil percentageOrdered By: Eleonora Montaño on 12-07-2024 Neutrophils/100 WBC (Bld) 70.8 % High 47-[address] [facility] Nucleated red blood cell per centageOrdered By: Eleonora Montaño on 12-07-2024 Nucleated RBC/100 WBC (Bld) [Ratio] 0 % 0-[address] [facility] Phosphoruson 12-07-2024 Phosphate [Mass/Vol] 2.4 mg/dL Low 2.7-4.[address] [facility] Comment on above: Performed By: #### L 500.2500, L501.5200, L100.0100, L501.2300 ####[facility] [address] [place], [address] Platelet countOrdered By: Heide Montaño on 12-07-2024 Platelets (Bld) [#/Vol] 217 10*3/uL 150-[address] [facility] Potassium (Unsp spec) [Mass/ Vol]Ordered By: Eleonora Montaño on 12-07-2024 Potassium [Moles/Vol] 3.8 mmol/L 3.3-5.1 [facility] Potassium measurement (mass/ volume)Ordered By: Eleonora Montaño on 12-07-2024 Potassium (Unsp spec) [Mass/Vol] 3.8 mmol/L 3.3-5.[address] [facility] RBC Auto (Bld) [#/Vol]Ordere d By: Eleonora Montaño on 12-07-2024 RBC (Bld) [#/Vol] 3.48 10*6/uL Low 4.2-5.4 [facility] Serum creatinine measurement (mass/volume)Ordered By: Eleonora Montaño on 12-07-2024 Creatinine [Mass/Vol] 0.71 mg/dL 0.70-1.20 [facility] Serum glucose measurement (m ass/volume)Ordered By: Eleonora Montaño on 12-07-2024 Glucose [Mass/Vol] 87 mg/dL 70-99 [facility] Serum or plasma calcium demetrice urement (mass/volume)Ordered By: Eleonora Montaño on 12-07-2024 Calcium [Mass/Vol] 8.1 mg/dL 7.6-11.0 [facility] Serum or plasma urea nitroge n measurement (mass/volume)Ordered By: Eleonora Montaño on 12-07-2024 Urea nitrogen [Mass/Vol] 12 mg/dL 4-[address] [facility] Serum phosphorus measurement Ordered By: Eleonora Montaño on 12-07-2024 Phosphorus Level 2.4 mg/dL Low 2.7-4.[address] [facility] Sodium levelOrdered By: Markel Bender on 12-07-2024 Sodium [Moles/Vol] 141 mmol/L 133-145 [facility] White blood cell (WBC) count Ordered By: Eleonora Montaño on 04-15-2025 WBC (Bld) [#/Vol] 4.7 10*3/uL 4.4-11.0 [facility] Basic Metabolic Profile (BMP )on 12-06-2024 BUN/CRE 27.1 RATIO High 10-[address] [facility] Comment on above: Performed By: #### L 501.5200, L500.2500, L501.2300, L100.0100 ####[facility] [address] [place], [address] Calcium [Mass/Vol] 8.0 mg/dL Normal 7.6-11.0 [facility] Comment on above: Performed By: #### L 501.5200, L500.2500, L501.2300, L100.0100 ####[facility] [address] [place], [address] Chloride [Moles/Vol] 112 mmol/L High 98-[address] [facility] Comment on above: Performed By: #### L 501.5200, L500.2500, L501.2300, L100.0100 ####[facility] [address] [place], [address] CO2 [Moles/Vol] 18.8 mmol/L Low 21.0-32.[address] [facility] Comment on above: Performed By: #### L 501.5200, L500.2500, L501.2300, L100.0100 ####[facility] [address] [place], [address] Creatinine [Mass/Vol] 0.64 mg/dL Low 0.70-1.20 [facility] Comment on above: Performed By: #### L 501.5200, L500.2500, L501.2300, L100.0100 ####[facility] [address] [place], [address] ECRCL 52.40 ml/min Normal 50-[address] [facility] Comment on above: Performed By: #### L 501.5200, L500.2500, L501.2300, L100.0100 ####[facility] [address] [place], [address] GAP 9 Normal 5-[address] [facility] Comment on above: Performed By: #### L 501.5200, L500.2500, L501.2300, L100.0100 ####[facility] [address] [place], [address] GFR/1.73 sq M.predicted among non-blacks MDRD (S/P/Bld) [Vol rate/Area] 91 mL/min/{1.73_m2} Normal >[address] [facility] Comment on above: Result Comment: mL/m in/1.73m2 CKD-EPI Creatinine Equation (2020) Performed By: #### L 501.5200, L500.2500, L501.2300, L100.0100 ####[facility] [address] [place], [address] Glucose [Mass/Vol] 77 mg/dL Normal 70-99 [facility] Comment on above: Performed By: #### L 501.5200, L500.2500, L501.2300, L100.0100 ####[facility] [address] [place], [address] Potassium [Moles/Vol] 3.9 mmol/L Normal 3.3-5.1 [facility] Comment on above: Performed By: #### L 501.5200, L500.2500, L501.2300, L100.0100 ####[facility] [address] [place], [address] Sodium [Moles/Vol] 140 mmol/L Normal 133-145 [facility] Comment on above: Performed By: #### L 501.5200, L500.2500, L501.2300, L100.0100 ####[facility] [address] [place], [address] Urea nitrogen [Mass/Vol] 17 mg/dL Normal 4-[address] [facility] Comment on above: Performed By: #### L 501.5200, L500.2500, L501.2300, L100.0100 ####[facility] [address] [place], [address] CBC W/Diff, Automatedon 11-23 Absolute Lymph 0.67 X10 3/uL Low 0.83-4.[address] [facility] Comment on above: Performed By: #### L 501.5200, L500.2500, L501.2300, L100.0100 ####[facility] [address] [place], [address] Absolute Neut 3.8 X10 3/uL Normal 2.0-7.[address] [facility] Comment on above: Performed By: #### L 501.5200, L500.2500, L501.2300, L100.0100 ####[facility] [address] [place], [address] Basophils/100 WBC (Bld) 0.2 % Normal 0-1 [facility] Comment on above: Performed By: #### L 501.5200, L500.2500, L501.2300, L100.0100 ####[facility] [address] [place], [address] Eosinophils/100 WBC (Bld) 0.4 % Normal 0-[address] [facility] Comment on above: Performed By: #### L 501.5200, L500.2500, L501.2300, L100.0100 ####[facility] [address] [place], [address] Erythrocyte distribution width (RBC) [Ratio] 14.4 % Normal 11.6-14.[address] [facility] Comment on above: Performed By: #### L 501.5200, L500.2500, L501.2300, L100.0100 ####[facility] [address] [place], [address] Hematocrit (Bld) [Volume fraction] 31.1 % Low 37-[address] [facility] Comment on above: Performed By: #### L 501.5200, L500.2500, L501.2300, L100.0100 ####[facility] [address] [place], [address] Hemoglobin (Bld) [Mass/Vol] 10.1 g/dL Low 12.0-15.[address] [facility] Comment on above: Performed By: #### L 501.5200, L500.2500, L501.2300, L100.0100 ####[facility] [address] [place], [address] IG% 0.400 Normal 0.0-0.[address] [facility] Comment on above: Result Comment: IG% - Immature Granulocytes (promyelocytes, myelocytes and metamyelocytes) > 1% indicates that a LEFT SHIFT is Present. Performed By: #### L 501.5200, L500.2500, L501.2300, L100.0100 ####[facility] [address] [place], [address] Lymphocytes/100 WBC (Bld) 13.8 % Low 19-[address] [facility] Comment on above: Performed By: #### L 501.5200, L500.2500, L501.2300, L100.0100 ####[facility] [address] [place], [address] MCH (RBC) [Entitic mass] 30.1 pg Normal 27.0-32.[address] [facility] Comment on above: Performed By: #### L 501.5200, L500.2500, L501.2300, L100.0100 ####[facility] [address] [place], [address] MCHC (RBC) [Mass/Vol] 32.5 g/dL Normal 32-36 [facility] Comment on above: Performed By: #### L 501.5200, L500.2500, L501.2300, L100.0100 ####[facility] [address] [place], [address] MCV (RBC) [Entitic vol] 92.6 fL Normal 81-99 [facility] Comment on above: Performed By: #### L 501.5200, L500.2500, L501.2300, L100.0100 ####[facility] [address] [place], [address] Monocytes/100 WBC (Bld) 6.4 % Normal 0-10 [facility] Comment on above: Performed By: #### L 501.5200, L500.2500, L501.2300, L100.0100 ####[facility] [address] [place], [address] Neutrophils/100 WBC (Bld) 78.8 % High 47-[address] [facility] Comment on above: Performed By: #### L 501.5200, L500.2500, L501.2300, L100.0100 ####[facility] [address] [place], [address] Nucleated RBC (Bld) [#/Vol] 0 10*3/uL Normal 0-[address] [facility] Comment on above: Performed By: #### L 501.5200, L500.2500, L501.2300, L100.0100 ####[facility] [address] [place], [address] Platelet mean volume (Bld) [Entitic vol] 10.6 fL Normal 6.2-12.[address] [facility] Comment on above: Performed By: #### L 501.5200, L500.2500, L501.2300, L100.0100 ####[facility] [address] [place], [address] Platelets (Bld) [#/Vol] 185 10*3/uL Normal 150-[address] [facility] Comment on above: Performed By: #### L 501.5200, L500.2500, L501.2300, L100.0100 ####[facility] [address] [place], [address] RBC (Bld) [#/Vol] 3.36 10*6/uL Low 4.2-5.4 [facility] Comment on above: Performed By: #### L 501.5200, L500.2500, L501.2300, L100.0100 ####[facility] [address] [place], [address] RDW SD 49.0 fl High 35.1-43.[address] [facility] Comment on above: Performed By: #### L 501.5200, L500.2500, L501.2300, L100.0100 ####[facility] [address] [place], [address] WBC (Bld) [#/Vol] 4.9 10*3/uL Normal 4.4-11.0 [facility] Comment on above: Performed By: #### L 501.5200, L500.2500, L501.2300, L100.0100 ####[facility] [address] [place], [address] Magnesiumon 12-06-2024 Magnesium [Mass/Vol] 2.4 mg/dL High 1.5-2.[address] [facility] Comment on above: Performed By: #### L 501.5200, L500.2500, L501.2300, L100.0100 ####[facility] [address] [place], [address] Phosphoruson 12-06-2024 Phosphate [Mass/Vol] 1.9 mg/dL Low 2.7-4.[address] [facility] Comment on above: Performed By: #### L 501.5200, L500.2500, L501.2300, L100.0100 ####[facility] [address] [place], [address] Basic Metabolic Profile (BMP )on 12-05-2024 BUN/CRE 21.8 RATIO High 10-[address] [facility] Comment on above: Performed By: #### L 100.0100, L501.5200, L501.2300, L500.2500 #### [facility] [address] [place], [address] Calcium [Mass/Vol] 8.2 mg/dL Normal 7.6-11.0 [facility] Comment on above: Performed By: #### L 100.0100, L501.5200, L501.2300, L500.2500 #### [facility] [address] [place], [address] Chloride [Moles/Vol] 113 mmol/L High 98-[address] [facility] Comment on above: Performed By: #### L 100.0100, L501.5200, L501.2300, L500.2500 #### [facility] [address] [place], [address] CO2 [Moles/Vol] 15.4 mmol/L Low 21.0-32.[address] [facility] Comment on above: Performed By: #### L 100.0100, L501.5200, L501.2300, L500.2500 #### [facility] [address] [place], [address] Creatinine [Mass/Vol] 0.68 mg/dL Low 0.70-1.20 [facility] Comment on above: Performed By: #### L 100.0100, L501.5200, L501.2300, L500.2500 #### [facility] [address] [place], [address] ECRCL 52.40 ml/min Normal 50-[address] [facility] Comment on above: Performed By: #### L 100.0100, L501.5200, L501.2300, L500.2500 #### [facility] [address] [place], [address] GAP 14 Normal 5-[address] [facility] Comment on above: Performed By: #### L 100.0100, L501.5200, L501.2300, L500.2500 #### [facility] [address] [place], [address] GFR/1.73 sq M.predicted among non-blacks MDRD (S/P/Bld) [Vol rate/Area] 90 mL/min/{1.73_m2} Normal >[address] [facility] Comment on above: Result Comment: mL/m in/1.73m2 CKD-EPI Creatinine Equation (2020) Performed By: #### L 100.0100, L501.5200, L501.2300, L500.2500 #### [facility] [address] [place], [address] Glucose [Mass/Vol] 95 mg/dL Normal 70-99 [facility] Comment on above: Performed By: #### L 100.0100, L501.5200, L501.2300, L500.2500 #### [facility] [address] [place], [address] Potassium [Moles/Vol] 4.5 mmol/L Normal 3.3-5.1 [facility] Comment on above: Performed By: #### L 100.0100, L501.5200, L501.2300, L500.2500 #### [facility] [address] [place], [address] Sodium [Moles/Vol] 142 mmol/L Normal 133-145 [facility] Comment on above: Performed By: #### L 100.0100, L501.5200, L501.2300, L500.2500 #### [facility] [address] [place], [address] Urea nitrogen [Mass/Vol] 15 mg/dL Normal 4-[address] [facility] Comment on above: Performed By: #### L 100.0100, L501.5200, L501.2300, L500.2500 #### [facility] [address] [place], [address] CBC W/Diff, Automatedon 04-08 27-2024 Absolute Lymph 0.54 X10 3/uL Low 0.83-4.[address] [facility] Comment on above: Performed By: #### L 100.0100, L501.5200, L501.2300, L500.2500 #### [facility] [address] [place], [address] Absolute Neut 8.2 X10 3/uL High 2.0-7.[address] [facility] Comment on above: Performed By: #### L 100.0100, L501.5200, L501.2300, L500.2500 #### [facility] [address] [place], [address] Basophils/100 WBC (Bld) 0.1 % Normal 0-1 [facility] Comment on above: Performed By: #### L 100.0100, L501.5200, L501.2300, L500.2500 #### [facility] [address] [place], [address] Eosinophils/100 WBC (Bld) 0.0 % Normal 0-[address] [facility] Comment on above: Performed By: #### L 100.0100, L501.5200, L501.2300, L500.2500 #### [facility] [address] [place], [address] Erythrocyte distribution width (RBC) [Ratio] 14.3 % Normal 11.6-14.[address] [facility] Comment on above: Performed By: #### L 100.0100, L501.5200, L501.2300, L500.2500 #### [facility] [address] [place], [address] Hematocrit (Bld) [Volume fraction] 37.1 % Normal 37-[address] [facility] Comment on above: Performed By: #### L 100.0100, L501.5200, L501.2300, L500.2500 #### [facility] [address] [place], [address] Hemoglobin (Bld) [Mass/Vol] 11.6 g/dL Low 12.0-15.[address] [facility] Comment on above: Performed By: #### L 100.0100, L501.5200, L501.2300, L500.2500 #### [facility] [address] [place], [address] IG% 0.600 Normal 0.0-0.[address] [facility] Comment on above: Result Comment: IG% - Immature Granulocytes (promyelocytes, myelocytes and metamyelocytes) > 1% indicates that a LEFT SHIFT is Present. Performed By: #### L 100.0100, L501.5200, L501.2300, L500.2500 #### [facility] [address] [place], [address] Lymphocytes/100 WBC (Bld) 5.8 % Low 19-[address] [facility] Comment on above: Performed By: #### L 100.0100, L501.5200, L501.2300, L500.2500 #### [facility] [address] [place], [address] MCH (RBC) [Entitic mass] 29.7 pg Normal 27.0-32.[address] [facility] Comment on above: Performed By: #### L 100.0100, L501.5200, L501.2300, L500.2500 #### [facility] [address] [place], [address] MCHC (RBC) [Mass/Vol] 31.3 g/dL Low 32-36 [facility] Comment on above: Performed By: #### L 100.0100, L501.5200, L501.2300, L500.2500 #### [facility] [address] [place], [address] MCV (RBC) [Entitic vol] 94.9 fL Normal 81-99 [facility] Comment on above: Performed By: #### L 100.0100, L501.5200, L501.2300, L500.2500 #### [facility] [address] [place], [address] Monocytes/100 WBC (Bld) 5.7 % Normal 0-10 [facility] Comment on above: Performed By: #### L 100.0100, L501.5200, L501.2300, L500.2500 #### [facility] [address] [place], [address] Neutrophils/100 WBC (Bld) 87.8 % High 47-[address] [facility] Comment on above: Performed By: #### L 100.0100, L501.5200, L501.2300, L500.2500 #### [facility] [address] [place], [address] Nucleated RBC (Bld) [#/Vol] 0 10*3/uL Normal 0-[address] [facility] Comment on above: Performed By: #### L 100.0100, L501.5200, L501.2300, L500.2500 #### [facility] [address] [place], [address] Platelet mean volume (Bld) [Entitic vol] 11.3 fL Normal 6.2-12.[address] [facility] Comment on above: Performed By: #### L 100.0100, L501.5200, L501.2300, L500.2500 #### [facility] [address] [place], [address] Platelets (Bld) [#/Vol] 189 10*3/uL Normal 150-[address] [facility] Comment on above: Performed By: #### L 100.0100, L501.5200, L501.2300, L500.2500 #### [facility] [address] [place], [address] RBC (Bld) [#/Vol] 3.91 10*6/uL Low 4.2-5.4 [facility] Comment on above: Performed By: #### L 100.0100, L501.5200, L501.2300, L500.2500 #### [facility] [address] [place], [address] RDW SD 49.2 fl High 35.1-43.[address] [facility] Comment on above: Performed By: #### L 100.0100, L501.5200, L501.2300, L500.2500 #### [facility] [address] [place], [address] WBC (Bld) [#/Vol] 9.4 10*3/uL Normal 4.4-11.0 [facility] Comment on above: Performed By: #### L 100.0100, L501.5200, L501.2300, L500.2500 #### [facility] [address] [place], [address] Magnesiumon 12-05-2024 Magnesium [Mass/Vol] 2.5 mg/dL High 1.5-2.[address] [facility] Comment on above: Performed By: #### L 100.0100, L501.5200, L501.2300, L500.2500 #### [facility] [address] [place], [address] Phosphoruson 12-05-2024 Phosphate [Mass/Vol] 3.4 mg/dL Normal 2.7-4.[address] [facility] Comment on above: Performed By: #### L 100.0100, L501.5200, L501.2300, L500.2500 #### [facility] [address] [place], [address] Abdomen/Pelvis WITH Contrast on 12-04-2024 Abdomen/Pelvis WITH Contrast [facility] [address] [facility] [place] [address] Abdomen/Pelvis WITH Contrast MR#: [id number] Acct: [id number] Name: GERMANIA DONIS Rep #: [id number] : 1945 F 79 From: Kaila Choi nd, MD PCP: Dr. Sowmya Cabrera MD Status: [facility] ER Study: Abdomen/Pelvis WITH Contrast Date of Exam: 08/18 Exam# [id number] Ordering Dr: Pardeep Naranjo DO PROCEDURE: ABDOMEN/PELVIS [...] at 10:34 a.m. on 12/04/2024. Reading Location: [facility] CC: Dr. Sowmya Cabrera MD; Dr. Pardeep Naranjo DO Pilot Manager: Signed Normal [facility] Absolute neutrophil countOrd ered By: Pardeep Naranjo on 12-04-2024 Neutrophils (Bld) [#/Vol] 6.2 10*3/uL 2.0-7.[address] [facility] Anion gap in Serum or Plasma Ordered By: Pardeep Naranjo on 12-04-2024 Anion gap [Moles/Vol] 10 mmol/L 5-15 [facility] BUN/creatinine ratioOrdered By: Pardeep Naranjo on 12-04-2024 Urea nitrogen/Creatinine [Mass ratio] 23.5 mg/mg High 10-[address] [facility] Basic Metabolic Profile (BMP )on 12-04-2024 BUN/CRE 23.5 RATIO High 10-[address] [facility] Comment on above: Performed By: #### L 100.0100, L500.3400, L501.2450, L500.2500 #### [facility] [address] [place], [address] Calcium [Mass/Vol] 9.0 mg/dL Normal 7.6-11.0 [facility] Comment on above: Performed By: #### L 100.0100, L500.3400, L501.2450, L500.2500 #### [facility] [address] [place], [address] Chloride [Moles/Vol] 101 mmol/L Normal 98-[address] [facility] Comment on above: Performed By: #### L 100.0100, L500.3400, L501.2450, L500.2500 #### [facility] [address] [place], [address] CO2 [Moles/Vol] 24.3 mmol/L Normal 21.0-32.[address] [facility] Comment on above: Performed By: #### L 100.0100, L500.3400, L501.2450, L500.2500 #### [facility] [address] [place], [address] Creatinine [Mass/Vol] 0.72 mg/dL Normal 0.70-1.20 [facility] Comment on above: Performed By: #### L 100.0100, L500.3400, L501.2450, L500.2500 #### [facility] [address] [place], [address] ECRCL 52.40 ml/min Normal 50-[address] [facility] Comment on above: Performed By: #### L 100.0100, L500.3400, L501.2450, L500.2500 #### [facility] [address] [place], [address] GAP 10 Normal 5-[address] [facility] Comment on above: Performed By: #### L 100.0100, L500.3400, L501.2450, L500.2500 #### [facility] [address] [place], [address] GFR/1.73 sq M.predicted among non-blacks MDRD (S/P/Bld) [Vol rate/Area] 86 mL/min/{1.73_m2} Normal >[address] [facility] Comment on above: Result Comment: mL/m in/1.73m2 CKD-EPI Creatinine Equation (2020) Performed By: #### L 100.0100, L500.3400, L501.2450, L500.2500 #### [facility] [address] [place], [address] Glucose [Mass/Vol] 98 mg/dL Normal 70-99 [facility] Comment on above: Performed By: #### L 100.0100, L500.3400, L501.2450, L500.2500 #### [facility] [address] [place], [address] Potassium [Moles/Vol] 4.5 mmol/L Normal 3.3-5.1 [facility] Comment on above: Performed By: #### L 100.0100, L500.3400, L501.2450, L500.2500 #### [facility] [address] [place], [address] Sodium [Moles/Vol] 135 mmol/L Normal 133-145 [facility] Comment on above: Performed By: #### L 100.0100, L500.3400, L501.2450, L500.2500 #### [facility] [address] [place], [address] Urea nitrogen [Mass/Vol] 17 mg/dL Normal 4-[address] [facility] Comment on above: Performed By: #### L 100.0100, L500.3400, L501.2450, L500.2500 #### [facility] [address] [place], [address] Basophil percentageOrdered B y: Pardeep Naranjo on 12-04-2024 Basophils/100 WBC (Bld) 0.1 % 0-1 [facility] Bilirubin Test strip Ql (U)O rdered By: Pardeep Naranjo on 12-04-2024 Bilirubin Ql (U) Negative Negative [facility] Bilirubin directOrdered By: Pardeep Naranjo on 12-04-2024 Bilirubin.direct [Mass/Vol] 0.28 mg/dL 0.00-0.[address] [facility] Bilirubin, totalOrdered By: Pardeep Naranjo on 12-04-2024 Bilirubin [Mass/Vol] 0.59 mg/dL 0.00-1.[address] [facility] CBC W/Diff, Automatedon 11-23 Absolute Lymph 0.71 X10 3/uL Low 0.83-4.[address] [facility] Comment on above: Performed By: #### L 100.0100, L500.3400, L501.2450, L500.2500 #### [facility] [address] [place], [address] Absolute Neut 6.2 X10 3/uL Normal 2.0-7.[address] [facility] Comment on above: Performed By: #### L 100.0100, L500.3400, L501.2450, L500.2500 #### [facility] [address] [place], [address] Basophils/100 WBC (Bld) 0.1 % Normal 0-1 [facility] Comment on above: Performed By: #### L 100.0100, L500.3400, L501.2450, L500.2500 #### [facility] [address] [place], [address] Eosinophils/100 WBC (Bld) 0.3 % Normal 0-[address] [facility] Comment on above: Performed By: #### L 100.0100, L500.3400, L501.2450, L500.2500 #### [facility] [address] [place], [address] Erythrocyte distribution width (RBC) [Ratio] 14.0 % Normal 11.6-14.[address] [facility] Comment on above: Performed By: #### L 100.0100, L500.3400, L501.2450, L500.2500 #### [facility] [address] [place], [address] Hematocrit (Bld) [Volume fraction] 37.1 % Normal 37-[address] [facility] Comment on above: Performed By: #### L 100.0100, L500.3400, L501.2450, L500.2500 #### [facility] [address] [place], [address] Hemoglobin (Bld) [Mass/Vol] 12.2 g/dL Normal 12.0-15.[address] [facility] Comment on above: Performed By: #### L 100.0100, L500.3400, L501.2450, L500.2500 #### [facility] [address] [place], [address] IG% 0.400 Normal 0.0-0.[address] [facility] Comment on above: Result Comment: IG% - Immature Granulocytes (promyelocytes, myelocytes and metamyelocytes) > 1% indicates that a LEFT SHIFT is Present. Performed By: #### L 100.0100, L500.3400, L501.2450, L500.2500 #### [facility] [address] [place], [address] Lymphocytes/100 WBC (Bld) 9.5 % Low 19-[address] [facility] Comment on above: Performed By: #### L 100.0100, L500.3400, L501.2450, L500.2500 #### [facility] [address] [place], [address] MCH (RBC) [Entitic mass] 29.7 pg Normal 27.0-32.[address] [facility] Comment on above: Performed By: #### L 100.0100, L500.3400, L501.2450, L500.2500 #### [facility] [address] [place], [address] MCHC (RBC) [Mass/Vol] 32.9 g/dL Normal 32-36 [facility] Comment on above: Performed By: #### L 100.0100, L500.3400, L501.2450, L500.2500 #### [facility] [address] [place], [address] MCV (RBC) [Entitic vol] 90.3 fL Normal 81-99 [facility] Comment on above: Performed By: #### L 100.0100, L500.3400, L501.2450, L500.2500 #### [facility] [address] [place], [address] Monocytes/100 WBC (Bld) 6.5 % Normal 0-10 [facility] Comment on above: Performed By: #### L 100.0100, L500.3400, L501.2450, L500.2500 #### [facility] [address] [place], [address] Neutrophils/100 WBC (Bld) 83.2 % High 47-[address] [facility] Comment on above: Performed By: #### L 100.0100, L500.3400, L501.2450, L500.2500 #### [facility] [address] [place], [address] Nucleated RBC (Bld) [#/Vol] 0 10*3/uL Normal 0-[address] [facility] Comment on above: Performed By: #### L 100.0100, L500.3400, L501.2450, L500.2500 #### [facility] [address] [place], [address] Platelet mean volume (Bld) [Entitic vol] 10.9 fL Normal 6.2-12.[address] [facility] Comment on above: Performed By: #### L 100.0100, L500.3400, L501.2450, L500.2500 #### [facility] [address] [place], [address] Platelets (Bld) [#/Vol] 182 10*3/uL Normal 150-[address] [facility] Comment on above: Performed By: #### L 100.0100, L500.3400, L501.2450, L500.2500 #### [facility] [address] [place], [address] RBC (Bld) [#/Vol] 4.11 10*6/uL Low 4.2-5.4 [facility] Comment on above: Performed By: #### L 100.0100, L500.3400, L501.2450, L500.2500 #### [facility] [address] [place], [address] RDW SD 46.5 fl High 35.1-43.[address] [facility] Comment on above: Performed By: #### L 100.0100, L500.3400, L501.2450, L500.2500 #### [facility] [address] [place], [address] WBC (Bld) [#/Vol] 7.4 10*3/uL Normal 4.4-11.0 [facility] Comment on above: Performed By: #### L 100.0100, L500.3400, L501.2450, L500.2500 #### [facility] [address] [place], [address] Carbon dioxide, total [Moles /volume] in Central venous bloodOrdered By: Pardeep Naranjo on 12-04-2024 CO2 [Moles/Vol] 24.3 mmol/L 21.0-32.[address] [facility] Chloride assayOrdered By: Asher Naranjo on 12-04-2024 Chloride [Moles/Vol] 101 mmol/L 98-[address] [facility] Emergency Department Summary on 12-04-2024 Emergency Department Summary [facility] Medical Records Department [address] [place] [address] Emergency Department Summary 12/04/24 MR#: [id number] Acct: [id number] Name: GERMANIA DONIS Rep #: [id number] : 1945 79 From: Pardeep Naranjo DO PCP: Dr. Sowmya Cabrera MD Status:[place] [facility] [id number] HPI HPI - GI History of Present [...] followed up and things were progressing normally. [facility] Medical History Umbilical hernia Wears glasses [...] 100 mcg PO QDAY 09/27/24 11/03/24 History euzwkpdc-gzlhjmyo-ncpu c acid 240 1 tab PO DAILY 09/27/24 11/03/24 H istory mcg-vit K1 150 mcg-herb 357 tablet (Alive Women's 50 Plus Ultra Multivitamin) vitamins A,C,Y-rnuk-otwuhm 4,296 1 cap PO BID 09/27/24 11/03/24 [...] intact bilate (more content not included)... Normal [facility] Eosinophil percentageOrdered By: Pardeep Naranjo on 12-04-2024 Eosinophils/100 WBC (Bld) 0.3 % 0-[address] [facility] Epithelial cells.squamous LM Ql (Urine sed)Ordered By: Pardeep Naranjo on 12-04-2024 Epithelial cells.squamous LM.HPF (Urine sed) [#/Area] 0 /[HPF] 5-[address] [facility] Erythrocyte distribution wid th (RBC) [Ratio]Ordered By: Pardeep Naranjo on 12-04-2024 Erythrocyte distribution width (RBC) [Entitic vol] 46.5 fL High 35.1-43.[address] [facility] Erythrocyte distribution wid th ratioOrdered By: Pardeep Naranjo on 12-04-2024 Erythrocyte distribution width (RBC) [Ratio] 14.0 % 11.6-14.[address] [facility] Estimation of creatinine nora aranceOrdered By: Pardeep Naranjo on 12-04-2024 Estimated Creatinine Clearance Calc 52.40 ml/min 50-[address] [facility] GFR/1.73 sq M.predicted [place] g non-blacks MDRD (S/P/Bld) [Vol rate/Area]Ordered By: Pardeep Naranjo on 12-04-2024 Estimated GFR (MDRD) Non-Af Amer [address] [facility] Comment on above: mL/min/1.73m2 CKD-EP I Creatinine Equation (2020) Glucose Ql (U)Ordered By: Asher Naranjo on 12-04-2024 Urine Glucose (UA) Normal mg/dl Normal [facility] Hematocrit Auto (Bld) [Volum e fraction]Ordered By: Pardeep Naranjo on 12-04-2024 Hematocrit (Bld) [Volume fraction] 37.1 % 37-[address] [facility] Hemoglobin measurementOrdere d By: Pardeep Naranjo on 12-04-2024 Hemoglobin (Bld) [Mass/Vol] 12.2 g/dL 12.0-15.[address] [facility] Immature granulocytes/100 WB C Auto (Bld)Ordered By: Pardeep Naranjo on 12-04-2024 Immature granulocytes/100 WBC (Bld) 0.400 % 0.0-0.[address] [facility] Comment on above: IG% - Immature Granu locytes (promyelocytes, myelocytes and metamyelocytes) > 1% indicates that a LEFT SHIFT is Present. Ketones Test strip Ql (U)Ord ered By: Pardeep Naranjo on 12-04-2024 Ketones Ql (U) 15 mg/dl High Negative [facility] Laboratory - Chemistry and C hemistry - challengeOrdered By: Pardeep Naranjo on 12-04-2024 AST [Catalytic activity/Vol] 39 U/L High <[address] [facility] Lipaseon 12-04-2024 Lipase [Catalytic activity/Vol] 31 U/L Normal 13-[address] [facility] Comment on above: Result Comment: Con greco note: LIPASE revised reference range effective 22. New Lipase methodology. Expected to produce lower values than the previous assay method. NEW Reference Range: 13 - 75 U/L Performed By: #### L 100.0100, L500.3400, L501.2450, L500.2500 ####[facility] [address] [place], [address] Lipase measurementOrdered By : Pardeep Naranjo on 12-04-2024 Lipase [Catalytic activity/Vol] 31 U/L 13-[address] [facility] Comment on above: Please note:LIPASE r evised reference range effective 22. New Lipase methodology. Expected to produce lower values than the previous assay method. NEW Reference Range: 13 - 75 U/L Liver Profileon 12-04-2024 Albumin [Mass/Vol] 3.5 g/dL Normal 3.4-4.8 [facility] Comment on above: Performed By: #### L 100.0100, L500.3400, L501.2450, L500.2500 ####[facility] [address] [place], [address] ALK PHOS 110 U/L High 35-[address] [facility] Comment on above: Performed By: #### L 100.0100, L500.3400, L501.2450, L500.2500 ####[facility] [address] [place], [address] ALT [Catalytic activity/Vol] 32 U/L Normal <=[address] [facility] Comment on above: Performed By: #### L 100.0100, L500.3400, L501.2450, L500.2500 ####[facility] [address] [place], [address] AST [Catalytic activity/Vol] 39 U/L High <=[address] [facility] Comment on above: Performed By: #### L 100.0100, L500.3400, L501.2450, L500.2500 ####[facility] [address] [place], [address] Bilirubin [Mass/Vol] 0.59 mg/dL Normal 0.00-1.[address] [facility] Comment on above: Performed By: #### L 100.0100, L500.3400, L501.2450, L500.2500 ####[facility] [address] [place], [address] Bilirubin.direct [Mass/Vol] 0.28 mg/dL Normal 0.00-0.[address] [facility] Comment on above: Performed By: #### L 100.0100, L500.3400, L501.2450, L500.2500 ####[facility] [address] [place], [address] Globulin (S) [Mass/Vol] 3.4 g/dL Normal 2.2-4.2 [facility] Comment on above: Performed By: #### L 100.0100, L500.3400, L501.2450, L500.2500 ####[facility] [address] [place], [address] T PROT 6.9 g/dL Normal 5.9-8.[address] [facility] Comment on above: Performed By: #### L 100.0100, L500.3400, L501.2450, L500.2500 ####[facility] [address] [place], [address] Lymphocytes Auto (Unsp spec) [#/Vol]Ordered By: Pardeep Naranjo on 12-04-2024 Lymphocytes (Bld) [#/Vol] 0.71 10*3/uL Low 0.83-4.[address] [facility] Lymphocytes/100 WBC Auto (Un sp spec)Ordered By: Pardeep Naranjo on 12-04-2024 Lymphocytes/100 WBC (Bld) 9.5 % Low 19-[address] [facility] MCV (mean corpuscular volume ) determinationOrdered By: Pardeep Naranjo on 12-04-2024 MCV (RBC) [Entitic vol] 90.3 fL 81-99 [facility] MR/POSTOP.ANEon 12-04-2024 MR/POSTOP.ANE [facility] Medical Records Department [address] [place] [address] Anesthesia Postop Eval I 12/04/241456 MR#: [id number] Acct: [id number] Name: GERMANIA DONIS Rep #: [id number] : 1945 79 From: Pardeep Pierre MD PCP: Dr. Sowmya Cabrera MD Status:ADM IN Y Race: C Location: [place] [address]-1 Anesthesia: Postop Eval I Current Vital Signs [...] MD Cosign Signature: Date CC: Signed Normal [facility] MR/DWOXOMAT5pu 12-04-2024 [facility] Medical Records Department [address] [place] [address] Anesthesia Postop Eval II 12/04/241458 MR#: [id number] Acct: [id number] Name: GERMANIA DONIS Rep #: [id number] : 1945 79 From: Pardeep Pierre MD PCP: Dr. Sowmya Cabrera MD Status:ADM IN Y Race: C Location: [place] [address]-1 Anesthesia Postop Eval I Sum Postop Eval [...] MD Cosigner Signature: Date CC: Signed Normal [facility] Mean corpuscular hemoglobin (MCH) determinationOrdered By: Pardeep Naranjo on 12-04-2024 MCH (RBC) [Entitic mass] 29.7 pg 27.0-32.[address] [facility] Mean corpuscular hemoglobin concentration (MCHC) determinationOrdered By: Pardeep Naranjo on 12-04-2024 MCHC (RBC) [Mass/Vol] 32.9 g/dL 32-36 [facility] Mean platelet volume determi nationOrdered By: Pardeep Naranjo on 12-04-2024 Platelet mean volume (Bld) [Entitic vol] 10.9 fL 6.2-12.[address] [facility] Microscopic analysis of urin e for red blood cells (RBC)Ordered By: Pardeep Naranjo on 12-04-2024 Microscopic analysis of urine for red blood cells (RBC) 0 SEEN /hpf 0-[address] [facility] Urine RBC 0 SEEN /hpf 0-[address] [facility] Monocyte percentageOrdered B y: Pardeep Naranjo on 12-04-2024 Monocytes/100 WBC (Bld) 6.5 % 0-10 [facility] Mucus LM Ql (Urine sed)Order ed By: Pardeep Naranjo on 12-04-2024 Mucus Ql (Urine sed) RARE /hpf [facility] Neutrophil percentageOrdered By: Pardeep Naranjo on 12-04-2024 Neutrophils/100 WBC (Bld) 83.2 % High 47-[address] [facility] Nitrite Test strip Ql (U)Ord ered By: Pardeep Naranjo on 12-04-2024 Nitrite Ql (U) Negative Negative [facility] Nucleated red blood cell per centageOrdered By: Pardeep Naranjo on 12-04-2024 Nucleated RBC/100 WBC (Bld) [Ratio] 0 % 0-[address] [facility] Operative Reporton Operative Report [facility] Medical Records Department [address] [place] [address] Operative Report 12/04/24 1434 MR#: [id number] Acct: [id number] Name: GERMANIA DONIS Rep #: [id number] : 1945 79 From: Darrick Light MD PCP: Dr. 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 Using atraumatic graspers and a suction furniture manager device I bluntly teased a perforated small [...] field labeled small bowel. Then a standard cdwz-oq-mlyi functional end-to-end small bowel anastomosis was created with a third firing of the GRACIE stapler. The common enterotomy was closed with a firing of a TX 60 stapler. The resulting staple line was largely hemostatic but was imbricated with a running 3-0 silk suture. Mesenteric defect was closed with a second running 3-0 silk suture. Finally a (more content not included)... Normal [facility] Platelet countOrdered By: Asher Naranjo on 12-04-2024 Platelets (Bld) [#/Vol] 182 10*3/uL 150-[address] [facility] Potassium (Unsp spec) [Mass/ Vol]Ordered By: Pardeep Naranjo on 12-04-2024 Potassium [Moles/Vol] 4.5 mmol/L 3.3-5.1 [facility] Protein Test strip Ql (U)Ord ered By: Pardeep Naranjo on 12-04-2024 Protein Ql (U) 15 mg/dl High Negative [facility] RBC Auto (Bld) [#/Vol]Ordere d By: Pardeep Naranjo on 12-04-2024 RBC (Bld) [#/Vol] 4.11 10*6/uL Low 4.2-5.4 [facility] Serum creatinine measurement (mass/volume)Ordered By: Pardeep Naranjo on 12-04-2024 Creatinine [Mass/Vol] 0.72 mg/dL 0.70-1.20 [facility] Serum globulin measurementOr dered By: Pardeep Naranjo on 12-04-2024 Globulin (S) [Mass/Vol] 3.4 g/dL 2.2-4.2 [facility] Serum glucose measurement (m ass/volume)Ordered By: Pardeep Naranjo on 12-04-2024 Glucose [Mass/Vol] 98 mg/dL 70-99 [facility] Serum or plasma alanine eastman otransferase (ALT) measurementOrdered By: Pardeep Naranjo on 12-04-2024 ALT [Catalytic activity/Vol] 32 U/L <[address] [facility] Serum or plasma albumin demetrice urement (mass/volume)Ordered By: Pardeep Naranjo on 12-04-2024 Albumin [Mass/Vol] 3.5 g/dL 3.4-4.8 [facility] Serum or plasma alkaline dedrick sphatase measurementOrdered By: Pardeep Naranjo on 12-04-2024 ALP [Catalytic activity/Vol] 110 U/L High 35-[address] [facility] Serum or plasma calcium demetrice urement (mass/volume)Ordered By: Pardeep Naranjo on 12-04-2024 Calcium [Mass/Vol] 9.0 mg/dL 7.6-11.0 [facility] Serum or plasma urea nitroge n measurement (mass/volume)Ordered By: Pardeep Naranjo on 12-04-2024 Urea nitrogen [Mass/Vol] 17 mg/dL 4-[address] [facility] Sodium levelOrdered By: Kelvin Naranjo on 12-04-2024 Sodium [Moles/Vol] 135 mmol/L 133-145 [facility] Squamous epithelial cells de tection in urine sediment by light microscopyOrdered By: Pardeep Naranjo on 12-04-2024 Epithelial cells.squamous LM Ql (Urine sed) 0-5 SEEN /hpf 5-[address] [facility] Surgery Specimen Level Von 0 12-04-2024 Surgery Specimen Level V ------- ---- Patient Age/Sex Location Account Attending Physician ---- GERMANIA DONIS 79/F MS3 [id number] Dr. Darrick Light MD ---- Specimen: [id number] Received: 12/06/24 Status: EPG Annalee Num: [id number] Spec Type: COLON Subm Dr: Dr. Darrick [...] No distinct mass-like lesion is grossly recognized. Professional System Administrator sections:A1-2. Opposing margins, en faceA3. Full-thickness section with transmural defectA4-5. Mucosa from outpouching and out-pouch to normal mucosa [facility] 12/13/2024 CPT:84836 ---- Patient Age/Sex Location Account Attending Physician ---- GERMANIA DONIS 79/F MS3 [id number] Dr. Darrick Light MD ---- Signed (signature on file) Dr. Prerna Rush MD 12/13/24 1407 ---- Normal [facility] Comment on above: Performed By: #### P SUV ####[facility] [address] [place], [place], [id number] Total proteinOrdered By: Prosper Naranjo on 12-04-2024 Protein [Mass/Vol] 6.9 g/dL 5.9-8.4 [facility] Urinalysis, Completeon 12-04 BACTERIA 1+ /hpf Normal None Seen [facility] Comment on above: Order Comment: CLEAN CATCH Performed By: #### L 400.0001 ####[facility] [address] [place], [address] EPI,SQUAMOUS 0-5 SEEN Normal 5-[address] [facility] Comment on above: Order Comment: CLEAN CATCH Performed By: #### L 400.0001 ####[facility] [address] [place], [address] Mucus Ql (Urine sed) RARE Normal [facility] Comment on above: Order Comment: CLEAN CATCH Performed By: #### L 400.0001 ####[facility] [address] [place], [address] WBC 0-5 SEEN Normal 0-[address] [facility] Comment on above: Order Comment: CLEAN CATCH Performed By: #### L 400.0001 ####[facility] [address] [place], [address] RBC 0 SEEN Normal 0-[address] [facility] Comment on above: Order Comment: CLEAN CATCH Performed By: #### L 400.0001 ####[facility] [address] [place], [address] Urine blood detectionOrdered By: Pardeep Naranjo on 12-04-2024 Urine Occult Blood Negative Negative [facility] Urine clarityOrdered By: Prosper Naranjo on 12-04-2024 Clarity (U) Sl. Cloudy Clear [facility] Urine color determinationOrd ered By: Pardeep Naranjo on 12-04-2024 Color (U) Yellow Yellow [facility] Urine glucose detectionOrder ed By: Pardeep Naranjo on 12-04-2024 Glucose Ql (U) Normal mg/dl Normal [facility] Urine leukocyte esterase det ection by dipstickOrdered By: Pardeep Naranjo on 12-04-2024 Leukocyte esterase Test strip Ql (U) 25 /ul High Negative [facility] Urine pHOrdered By: Pardeep washburn on 12-04-2024 pH (U) 6.0 [pH] 5.0 - 8.[address] [facility] Urine sediment bacteria coun t by microscopy (number/high power field)Ordered By: Pardeep Naranjo on 12-04-2024 Bacteria LM.HPF (Urine sed) [#/Area] 1 /[HPF] None Seen [facility] Urine specific gravity measu rementOrdered By: Pardeep Naranjo on 12-04-2024 Specific gravity (U) [Rel density] 1.010 1.002-1.[address] [facility] Urine urobilinogen measureme ntOrdered By: Pardeep Naranjo on 12-04-2024 Urobilinogen Ql (U) Normal mg/dl Normal [facility] Urobilinogen Ql (U)Ordered B y: Pardeep Naranjo on 12-04-2024 Urine Urobilinogen Normal mg/dl Normal [facility] White blood cell (WBC) count Ordered By: Pardeep Naranjo on 12-04-2024 WBC (Bld) [#/Vol] 7.4 10*3/uL 4.4-11.0 [facility] White blood cell countOrdere d By: Pardeep Naranjo on 12-04-2024 Urine WBC 0-5 SEEN /hpf 0-[address] [facility] White blood cell count 0-5 SEEN /hpf 0-[address] [facility] Surgery Visit Reporton 11-19 Surgery Visit Report [facility] [address] [place] [address] OFFICE VISIT Date of Service: 11/19/24 MR#: [id number] Acct: [id number] Name: GERMANIA DONIS Rep #: [id number] : 1945 Provider: Dr. Shelly louise MD Age/Sex: 79/F Location: [facility] Status: Signed Intake Vital Signs 11/04/24 06:19 [...] 100 mcg PO QDAY 09/27/24 11/04/24 History snyqtllr-fkneeoeb-fwfp c acid 240 1 tab PO DAILY 09/27/24 11/04/24 H istory mcg-vit K1 150 mcg-herb 357 tablet (Alive Women's 50 Plus Ultra Multivitamin) vitamins A,C,S-lefs-btwgrf 4,296 1 cap PO BID 09/27/24 11/04/24 [...] S/P umbilical hernia repair, follow-up exam Z09 [facility] Medical History (Updated 11/19/24 @ 10:14 [...] is agreeable plan. Shelly Leonard M.D. Pager: [phone] [facility] [address] [place] [address], [address] [place] [address] Office: [phone] 11/22/24 0751 Date Shelly Leonard MD [facility] Signature: Date (if applicable) CC: Dr. Sowmya Cabrera MD Normal [facility] Discharge Instructionon 10-23 Discharge Instruction [facility] Medical Records Department [address] [place] [address] Instructions for Home/Discharge Instructions 11/04/24 0808 MR#: [id number] Acct: [id number] Name: GERMANIA DONIS Rep #: [id number] : 1945 79 From: Shelly Leonard MD PCP: Dr. Sowmya Cabrera MD Status:REG [facility] Discharge Instructions Diet Discharge Diet: Light diet [...] 5 PM and on the weekends call [phone] with any concerns. Test Results: Test results [...] the other half the bottle. Print Language: [place] Discharge Orders/Prescriptions Prescriptions: New oxycodone 5 mg [...] CC: Dr. Sowmya Cabrera MD Signed Normal [facility] H AND P Exam - Surgicalon H&P Exam - Surgical [facility] Medical Records Department [address] [place] [address] H P Exam - Surgical 11/04/24 0717 MR#: [id number] Acct: [id number] Name: GERMANIA DONIS Rep #: [id number] : 1945 79 From: Shelly Leonard MD PCP: Dr. Sowmya Cabrera MD Status:[facility] Location: [place] [address] HPI - General General Date of Service: [...] it repaired. Patient denies any abdominal surgeries. [facility] Medical History Wears glasses Wears partial [...] 100 mcg PO QDAY 09/27/24 11/03/24 History vmoeqhef-ypjwotqw-zzre c acid 240 1 tab PO DAILY 09/27/24 11/03/24 H istory mcg-vit K1 150 mcg-herb 357 tablet (Alive Women's 50 Plus Ultra Multivitamin) vitamins A,C,T-ggym-rulpdi 4,296 1 cap PO BID 09/27/24 11/03/24 [...] further questions time. Shelly Leonard M.D. Pager: [phone] [facility] [address] [place] [address] [place] [address] Office: [phone] 11/04/24 0719 Cosigner Signature (if applicable): CC: Dr. Sowmya Cabrera MD; Dr. Shelly Leonard MD Signed Normal [facility] MR/POSTOP.Tk 11-04-2024 MR/POSTOP.[facility] Medical Records Department [address] [place] [address] Anesthesia Postop Eval I 11/04/24 0833 MR#: [id number] Acct: [id number] Name: GERMANIA DONIS Rep #: [id number] : 1945 79 From: Cyrus Leung CRNA PCP: Dr. Sowmya Cabrera MD Status:REG [facility] Y Race: C Location: [place] [address] Anesthesia: Postop Eval I Current Vital Signs [...] 1 completed: Yes 11/04/24939 Date Cyrus Leung BUSINESS ASST Cosigner Signature: Date CC: Signed Normal [facility] MR/ZERWWVXS3mc 11-04-2024 /[facility] Medical Records Department [address] [place] [address] Anesthesia Postop Eval II 11/04/24 1122 MR#: [id number] Acct: [id number] Name: GERMANIA DONIS Rep #: [id number] : 1945 79 From: Man Link MD PCP: Dr. Sowmya Cabrera MD Status:[facility] Y Race: C Location: [facility] Anesthesia Postop Eval I Sum Postop Eval Completion status Anesthesia document: Postop Eval 1 completed: Yes Anesthesia Postop Eval I Summary Anesthesia Postop Eval I Summary: Anesthesia Postop Eval I: Assessment Summary Airway patent Yes 11/04/24 09:40 BUSINESS ASST.ACAR Spontaneous unlabored Yes 11/04/24 09:40 BUSINESS ASST.ACAR respirations Mental status nausea No 11/04/24 09:40 BUSINESS ASST.ACAR Vomiting No 11/04/24 09:40 BUSINESS ASST.ACAR Anesthesia Postop Eval I: Fluid Summary Crystalloid volume administer 1,000 11/04/24 09:40 BUSINESS ASST.ACAR (ml) Colloids volume administered ( ml) Blood Product volume administered (ml) Total IV fluid infused 1,000 11/04/24 09:40 BUSINESS ASST.ACAR Anesthesia Postop Eval I: Summary Notes Anesthesia Complication No 11/04/24 09:40 BUSINESS ASST.ACAR Anesthesia Complication Comment: Post-operative progress note Anesthesia: Postop Eval II Evaluation Mental status: Awake Pain Level: 0 nausea: No Vomiting: No Complications Anesthesia Complication: No 11/04/24 1123 Date Man Jain Signature: Date CC: Signed Normal [facility] Operative Reporton 5 Operative Report [facility] Medical Records Department [address] [place] [address] Operative Report 11/04/24 0805 MR#: [id number] Acct: [id number] Name: GERMANIA DONIS Rep #: [id number] : 1945 79 From: Shelly Leonard MD PCP: Dr. Sowmya Cabrera MD Status:[facility] Location: [place] [address] Operative Report (Standard) Operative Information Date of Procedure: 11/04/24 Pre-Operative Diagnosis: Umbilical hernia Post-Operative Diagnosis: Same Surgery/Procedure Performed: Umbilical hernia repair with mesh steam pan sponger: Yes Data Analytics Chief Scientist: Timoteo Ruiz Tasks completed by export sales assistant: Opening closing Type of Anesthesia: General/Supplemental [...] hernia patch 4.3 cm in diameter, Lot [id number] ref [id number] Special Medications: Ancef 2 g IV x [...] The hernia defect was closed with a auaano-le-nqdwc 0 Nurolon. The wound was irrigated with [...] MD; Dr. Shelly Leonard MD Signed Normal [facility] TSH DL <= 0.005 mIU/L QnOrde red By: Tito Dexter on 10-28-2024 Thyroid Stimulating Hormone (TSH) 2.500 uIU/mL 0.300-4.[address] [facility] TSH Qn 2.500 uIU/mL 0.300-4.[address] [facility] Thyroid Stim Hormone (TSH)on 10-28-2024 TSH 2.500 uIU/mL Normal 0.300-4.[address] [facility] Comment on above: Performed By: #### L 501.9520 ####[facility] [address] [place], [place], [address] Spine Cervical (Routine)on 0 10-04-2024 Spine Cervical (Routine) [facility] Services [address] [place] [address] Spine Cervical (Routine) MR#: [id number] Acct: [id number] Name: GERMANIA DONIS Rep #: [id number] : 1945 F 79 From: [facility] PCP: Dr. Sowmya Cabrera MD Status: REG CLI Study: Spine Cervical (Routine) Date of Exam: Exam# [id number] Ordering Dr: Sowmya Cabrera PROCEDURE: SPINE CERVICAL [...] changes are present with severe left and kvwk-bz-iafwxikj right neural foraminal narrowing. 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 Facet/uncovertebral changes are present with severe left and uwbi-fi-jbwhxlhd right neural foraminal narrowing. C6-7: Disc osteophyte [...] Location: [place] CC: Dr. Sowmya Cabrera MD Pilot Manager: Signed Normal [facility] Surgery Visit Reporton 09-27 Surgery Visit Report [facility] [address] [place] [address]. [address] [place] [address] OFFICE VISIT Date of Service: 09/27/24 MR#: [id number] Acct: [id number] Name: GERMANIA DONIS Rep #: [id number] : 1945 Provider: Dr. Shelly louise MD Age/Sex: 79/F Location: [facility] Status: Signed Intake Vital Signs 09/07/20 14:15 [...] 100 mcg PO QDAY 09/27/24 09/27/24 History jgudhlba-rvpvnvlg-rreq c acid 240 tab PO 09/27/24 09/27/24 History mcg-vit K1 150 mcg-herb 357 tablet (Alive Women's 50 Plus Ultra Multivitamin) valacyclovir 1 gram tablet 1,000 mg PO TID 09/27/24 09/27/24 History vitamins A,C,A-arze-wputlc 4,296 1 cap PO BID 09/27/24 09/27/24 [...] healthy appearing, comfortable and no acute distress [facility] Head: normocephalic and atraumatic Neck Neck: [...] Status: Acute (more content not included)... Normal [facility] Re-Evaluation - PT (1)on Re-Evaluation - PT (1) [facility] Physical Therapy Health[address] [place] [address] / REEVALUATION / MEDICARE RECERTIFICATION PHYSICAL THERAPY MR#: [id number] Acct: [id number] Name: GERMANIA DONIS Rep #: [id number] : 1945 79 From: Sary Mejia PT, Cert. MDT Referring Dr.: Dr. Lex Rhoades MD Status:REG RCR Insurance: MEDICARE PART A B [facility] Re-Evaluation Intro: Lex Rhoades MD, [...] 3+/5. R ELBOW 5/5 L 5/5. 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 [...] do not hesitate to contact me at [phone] by phone or if you have questions or concerns regarding this new plan of care! Sincerely, Sary Mejia, PT, Cert MDT 08/12/24 1204 CC: Dr. Lex Rhoades MD; Dr. Sowmya Cabrera MD ALBARO Signed For Medicare only, by signing this I certify the plan of care. Physicians Signature Date Normal [facility] ANTINUCLEAR ANTIBODIES DIREC Ton 07-23-2024 MARYBETH,DIRECT Negative Normal Negative [facility] Comment on above: Order Comment: Order Date: 07/20/24Order Info: [id number] - MARYBETH Result Comment: Perf ormed at: [facility] [address] [place], [place] [id number] Scientific Process Operator: Wilder Araya PhD, Phone: [phone] Performed By: #### L 503.6550, L500.4050, L501.5200, L3100.5475, L100.0100, L503.6150, L503.0105, L501.9520, L101.9900 ####[facility] [address] [place], [place], [id number] MARYBETH serumOrdered By: Yogi Cabrera on 07-20-2024 Anti-Nuclear Antibody Screen Negative Negative [facility] Comment on above: Performed at: [facility] [address] [place], [place] [id number] Director: Wilder Araya PhD, Phone: [phone] Absolute neutrophil countOrd ered By: Sowmya Cabrera on 07-20-2024 Neutrophils (Bld) [#/Vol] 3.2 10*3/uL 2.0-7.[address] [facility] Albumin to globulin ratioOrd ered By: Sowmya Cabrera on 07-20-2024 Albumin/Globulin [Mass ratio] 1.1 {ratio} 0.9-2.[address] [facility] Basophil percentageOrdered B y: Sowmya Cabrera on 07-20-2024 Basophils/100 WBC (Bld) 0.4 % 0-1 [facility] Bilirubin, totalOrdered By: Sowmya Cabrera on 07-20-2024 Bilirubin [Mass/Vol] 0.60 mg/dL 0.20-1.[address] [facility] Comment on above: For patients on eltr ombopag therapy, use of Dimension [place] TBIL is not recommended. Blood urea nitrogen (BUN)/cr eatinine ratioOrdered By: Sowmya Cabrera on 07-20-2024 Urea nitrogen/Creatinine [Mass ratio] 22.2 mg/mg High - [facility] CBC W/Diff, Automatedon 06-26 Absolute Lymph 0.91 X10 3/uL Normal 0.83-4.[address] [facility] Comment on above: Order Comment: Order Date: 07/20/24Order Info: 183-08 - CBCDOrder Info: [id number] - SED Performed By: #### L 503.6550, L500.4050, L501.5200, L3100.5475, L100.0100, L503.6150, L503.0105, L501.9520, L101.9900 ####[facility] [address] [place], [address] Absolute Neut 3.2 X10 3/uL Normal 2.0-7.[address] [facility] Comment on above: Order Comment: Order Date: 07/20/24Order Info: 183-08 - CBCDOrder Info: [id number] - SED Performed By: #### L 503.6550, L500.4050, L501.5200, L3100.5475, L100.0100, L503.6150, L503.0105, L501.9520, L101.9900 ####[facility] [address] [place], [address] Basophils/100 WBC (Bld) 0.4 % Normal 0-1 [facility] Comment on above: Order Comment: Order Date: 07/20/24Order Info: 183-08 - CBCDOrder Info: [id number] - SED Performed By: #### L 503.6550, L500.4050, L501.5200, L3100.5475, L100.0100, L503.6150, L503.0105, L501.9520, L101.9900 ####[facility] [address] [place], [address] Eosinophils/100 WBC (Bld) 1.3 % Normal 0-[address] [facility] Comment on above: Order Comment: Order Date: 07/20/24Order Info: 183-08 - CBCDOrder Info: [id number] - SED Performed By: #### L 503.6550, L500.4050, L501.5200, L3100.5475, L100.0100, L503.6150, L503.0105, L501.9520, L101.9900 ####[facility] [address] [place], [address] Erythrocyte distribution width (RBC) [Ratio] 13.4 % Normal 11.6-14.[address] [facility] Comment on above: Order Comment: Order Date: 07/20/24Order Info: 183-08 - CBCDOrder Info: [id number] - SED Performed By: #### L 503.6550, L500.4050, L501.5200, L3100.5475, L100.0100, L503.6150, L503.0105, L501.9520, L101.9900 ####[facility] [address] [place], [place], [phone](939) Hematocrit (Bld) [Volume fraction] 39.4 % Normal 37-[address] [facility] Comment on above: Order Comment: Order Date: 07/20/24Order Info: 183-08 - CBCDOrder Info: [id number] - SED Performed By: #### L 503.6550, L500.4050, L501.5200, L3100.5475, L100.0100, L503.6150, L503.0105, L501.9520, L101.9900 ####[facility] [address] [place], [address] Hemoglobin (Bld) [Mass/Vol] 12.8 g/dL Normal 12.0-15.[address] [facility] Comment on above: Order Comment: Order Date: 07/20/24Order Info: 183-08 - CBCDOrder Info: [id number] - SED Performed By: #### L 503.6550, L500.4050, L501.5200, L3100.5475, L100.0100, L503.6150, L503.0105, L501.9520, L101.9900 ####[facility] [address] [place], [address] IG% 0.400 Normal 0.0-0.[address] [facility] Comment on above: Order Comment: Order Date: 07/20/24Order Info: 183-08 - CBCDOrder Info: [id number] - SED Result Comment: IG% - Immature Granulocytes (promyelocytes, myelocytes and metamyelocytes) > 1% indicates that a LEFT SHIFT is Present. Performed By: #### L 503.6550, L500.4050, L501.5200, L3100.5475, L100.0100, L503.6150, L503.0105, L501.9520, L101.9900 ####[facility] [address] [place], [address] Lymphocytes/100 WBC (Bld) 20.0 % Normal 19-[address] [facility] Comment on above: Order Comment: Order Date: 07/20/24Order Info: 183-08 - CBCDOrder Info: [id number] - SED Performed By: #### L 503.6550, L500.4050, L501.5200, L3100.5475, L100.0100, L503.6150, L503.0105, L501.9520, L101.9900 ####[facility] [address] [place], [address] MCH (RBC) [Entitic mass] 30.2 pg Normal 27.0-32.[address] [facility] Comment on above: Order Comment: Order Date: 07/20/24Order Info: 183-08 - CBCDOrder Info: [id number] - SED Performed By: #### L 503.6550, L500.4050, L501.5200, L3100.5475, L100.0100, L503.6150, L503.0105, L501.9520, L101.9900 ####[facility] [address] [place], [address] MCHC (RBC) [Mass/Vol] 32.5 g/dL Normal 32-36 [facility] Comment on above: Order Comment: Order Date: 07/20/24Order Info: 018- - CBCDOrder Info: [id number] - SED Performed By: #### L 503.6550, L500.4050, L501.5200, L3100.5475, L100.0100, L503.6150, L503.0105, L501.9520, L101.9900 ####[facility] [address] [place], [address] MCV (RBC) [Entitic vol] 92.9 fL Normal 81-99 [facility] Comment on above: Order Comment: Order Date: 07/20/24Order Info: 183-08 - CBCDOrder Info: [id number] - SED Performed By: #### L 503.6550, L500.4050, L501.5200, L3100.5475, L100.0100, L503.6150, L503.0105, L501.9520, L101.9900 ####[facility] [address] [place], [address] Monocytes/100 WBC (Bld) 8.1 % Normal 0-10 [facility] Comment on above: Order Comment: Order Date: 07/20/24Order Info: 018- - CBCDOrder Info: [id number] - SED Performed By: #### L 503.6550, L500.4050, L501.5200, L3100.5475, L100.0100, L503.6150, L503.0105, L501.9520, L101.9900 ####[facility] [address] [place], [address] Neutrophils/100 WBC (Bld) 69.8 % Normal 47-[address] [facility] Comment on above: Order Comment: Order Date: 07/20/24Order Info: [id number] - CBCDOrder Info: [id number] - SED Performed By: #### L 503.6550, L500.4050, L501.5200, L3100.5475, L100.0100, L503.6150, L503.0105, L501.9520, L101.9900 ####[facility] [address] [place], [address] Nucleated RBC (Bld) [#/Vol] 0 10*3/uL Normal 0-[address] [facility] Comment on above: Order Comment: Order Date: 07/20/24Order Info: 183-08 - CBCDOrder Info: [id number] - SED Performed By: #### L 503.6550, L500.4050, L501.5200, L3100.5475, L100.0100, L503.6150, L503.0105, L501.9520, L101.9900 ####[facility] [address] [place], [address] Platelet mean volume (Bld) [Entitic vol] 12.0 fL Normal 6.2-12.[address] [facility] Comment on above: Order Comment: Order Date: 07/20/24Order Info: 183-08 - CBCDOrder Info: [id number] - SED Performed By: #### L 503.6550, L500.4050, L501.5200, L3100.5475, L100.0100, L503.6150, L503.0105, L501.9520, L101.9900 ####[facility] [address] [place], [address] Platelets (Bld) [#/Vol] 216 10*3/uL Normal 150-[address] [facility] Comment on above: Order Comment: Order Date: 07/20/24Order Info: 183-08 - CBCDOrder Info: [id number] - SED Performed By: #### L 503.6550, L500.4050, L501.5200, L3100.5475, L100.0100, L503.6150, L503.0105, L501.9520, L101.9900 ####[facility] [address] [place], [address] RBC (Bld) [#/Vol] 4.24 10*6/uL Normal 4.2-5.4 [facility] Comment on above: Order Comment: Order Date: 07/20/24Order Info: 183-1 - CBCDOrder Info: [id number] - SED Performed By: #### L 503.6550, L500.4050, L501.5200, L3100.5475, L100.0100, L503.6150, L503.0105, L501.9520, L101.9900 ####[facility] [address] [place], [address] RDW SD 45.4 fl High 35.1-43.[address] [facility] Comment on above: Order Comment: Order Date: 07/20/24Order Info: 183- - CBCDOrder Info: [id number] - SED Performed By: #### L 503.6550, L500.4050, L501.5200, L3100.5475, L100.0100, L503.6150, L503.0105, L501.9520, L101.9900 ####[facility] [address] [place], [address] WBC (Bld) [#/Vol] 4.6 10*3/uL Normal 4.4-11.0 [facility] Comment on above: Order Comment: Order Date: 07/20/24Order Info: 018-1 - CBCDOrder Info: [id number] - SED Performed By: #### L 503.6550, L500.4050, L501.5200, L3100.5475, L100.0100, L503.6150, L503.0105, L501.9520, L101.9900 ####[facility] [address] [place], [address] Carbon dioxide measurementOr dered By: Sowmya Carbera on 07-20-2024 CO2 [Moles/Vol] 30.0 mmol/L 21.0-32.[address] [facility] Cerv Spine 4 or 5 Viewson Cerv Spine 4 or 5 Views [facility] [address] [place] [address] Cerv Spine 4 or 5 Views MR#: [id number] Acct: [id number] Name: GERMANIA DONIS Rep #: [id number] : 1945 F 79 From: Katie Lara PCP: Dr. Sowmya Cabrera MD Status: [facility] Study: Cerv Spine 4 or 5 Views Date of Exam: 07/20/24 Exam# [id number] Ordering Dr: Sowmya Cabrera [id number] INDICATION: pain, bilateral shoulder pain EXAMINATION/TECHNIQUE: X-RAY [...] EST , CC: Dr. Sowmya Cabrera MD Pilot Manager: Signed Normal [facility] Chloride measurementOrdered By: Sowmya Cabrera on 07-20-2024 Chloride [Moles/Vol] 108 mmol/L High 98-[address] [facility] Comprehensive Metabolic Prof ilon 07-20-2024 Albumin [Mass/Vol] 3.7 g/dL Normal 3.2-5.0 [facility] Comment on above: Order Comment: Order Date: 07/20/24Order Info: 0786- - CMPOrder Info: - MGOrder Info: 3015-10 - TSHOrder Info: 2497-11 - FEOrder Info: 2275-11 - REHAN Performed By: #### L 503.6550, L500.4050, L501.5200, L3100.5475, L100.0100, L503.6150, L503.0105, L501.9520, L101.9900 ####[facility] [address] [place], [address] Albumin/Globulin [Mass ratio] 1.1 {ratio} Normal 0.9-2.[address] [facility] Comment on above: Order Comment: Order Date: 07/20/24Order Info: 0786- - CMPOrder Info: - MGOrder Info: 3015-10 - TSHOrder Info: 2497-11 - FEOrder Info: 2275-11 - REHAN Performed By: #### L 503.6550, L500.4050, L501.5200, L3100.5475, L100.0100, L503.6150, L503.0105, L501.9520, L101.9900 ####[facility] [address] [place], [address] ALK P 96 U/L Normal 45-[address] [facility] Comment on above: Order Comment: Order Date: 07/20/24Order Info: 07-1 - CMPOrder Info: [id number] - MGOrder Info: 3 - TSHOrder Info: [id number] - FEOrder Info: 2275-4 - REHAN Performed By: #### L 503.6550, L500.4050, L501.5200, L3100.5475, L100.0100, L503.6150, L503.0105, L501.9520, L101.9900 ####[facility] [address] [place], [address] ALT [Catalytic activity/Vol] 30 U/L Normal 13-[address] [facility] Comment on above: Order Comment: Order Date: 07/20/24Order Info: 785-1 - CMPOrder Info: [id number] - MGOrder Info: 3 - TSHOrder Info: 2497-11 - FEOrder Info: 2275-11 - REHAN Performed By: #### L 503.6550, L500.4050, L501.5200, L3100.5475, L100.0100, L503.6150, L503.0105, L501.9520, L101.9900 ####[facility] [address] [place], [place], [phone](700) AST [Catalytic activity/Vol] 32 U/L Normal 15-[address] [facility] Comment on above: Order Comment: Order Date: 07/20/24Order Info: 785-1 - CMPOrder Info: [id number] - MGOrder Info: 3 - TSHOrder Info: [id number] - FEOrder Info: 2275-4 - REHAN Performed By: #### L 503.6550, L500.4050, L501.5200, L3100.5475, L100.0100, L503.6150, L503.0105, L501.9520, L101.9900 ####[facility] [address] [place], [place], [phone](897) Bilirubin [Mass/Vol] 0.60 mg/dL Normal 0.20-1.[address] [facility] Comment on above: Order Comment: Order Date: 07/20/24Order Info: 785-1 - CMPOrder Info: [id number] - MGOrder Info: 3015-10 - TSHOrder Info: 2497-11 - FEOrder Info: 2275-11 - REHAN Result Comment: For patients on eltrombopag therapy, use of Dimension [place] TBIL is not recommended. Performed By: #### L 503.6550, L500.4050, L501.5200, L3100.5475, L100.0100, L503.6150, L503.0105, L501.9520, L101.9900 ####[facility] [address] [place], [place], [phone] BUN/CRE 22.2 RATIO High 10-[address] [facility] Comment on above: Order Comment: Order Date: 07/20/24Order Info: 785-08 - CMPOrder Info: [id number] - MGOrder Info: 3015-10 - TSHOrder Info: 2497-11 - FEOrder Info: 2275-11 - REHAN Performed By: #### L 503.6550, L500.4050, L501.5200, L3100.5475, L100.0100, L503.6150, L503.0105, L501.9520, L101.9900 ####[facility] [address] [place], [place], [phone] CA,Total 9.3 mg/dL Normal 8.5-10.[address] [facility] Comment on above: Order Comment: Order Date: 07/20/24Order Info: 785- - CMPOrder Info: [id number] - MGOrder Info: 3015-10 - TSHOrder Info: 2497-11 - FEOrder Info: 2275-11 - REHAN Performed By: #### L 503.6550, L500.4050, L501.5200, L3100.5475, L100.0100, L503.6150, L503.0105, L501.9520, L101.9900 ####[facility] [address] [place], [address] Chloride [Moles/Vol] 108 mmol/L High 98-[address] [facility] Comment on above: Order Comment: Order Date: 07/20/24Order Info: 785-1 - CMPOrder Info: [id number] - MGOrder Info: 3 - TSHOrder Info: 2497-11 - FEOrder Info: 2275-11 - REHAN Performed By: #### L 503.6550, L500.4050, L501.5200, L3100.5475, L100.0100, L503.6150, L503.0105, L501.9520, L101.9900 ####[facility] [address] [place], [address] CO2 [Moles/Vol] 30.0 mmol/L Normal 21.0-32.[address] [facility] Comment on above: Order Comment: Order Date: 07/20/24Order Info: 785-08 - CMPOrder Info: [id number] - MGOrder Info: 3015-10 - TSHOrder Info: 2497-11 - FEOrder Info: 2275-11 - REHAN Performed By: #### L 503.6550, L500.4050, L501.5200, L3100.5475, L100.0100, L503.6150, L503.0105, L501.9520, L101.9900 ####[facility] [address] [place], [address] Creatinine [Mass/Vol] 0.68 mg/dL Normal 0.55-1.02 [facility] Comment on above: Order Comment: Order Date: 07/20/24Order Info: 785-08 - CMPOrder Info: [id number] - MGOrder Info: 3 - TSHOrder Info: 2497-11 - FEOrder Info: 2275-11 - REHAN Result Comment: The validity of the calculated GFR GFRAA in patients over 70 years has not been determined. Clinical correlation is essential. Performed By: #### L 503.6550, L500.4050, L501.5200, L3100.5475, L100.0100, L503.6150, L503.0105, L501.9520, L101.9900 ####[facility] [address] [place], [place], [phone] EST GFR - AA 109 mL/min Normal >[address] [facility] Comment on above: Order Comment: Order Date: 07/20/24Order Info: 785- - CMPOrder Info: - MGOrder Info: 3015-10 - TSHOrder Info: 2497-11 - FEOrder Info: 2275-11 - REHAN Result Comment: Afri can [place] GFR Calc Performed By: #### L 503.6550, L500.4050, L501.5200, L3100.5475, L100.0100, L503.6150, L503.0105, L501.9520, L101.9900 ####[facility] [address] [place], [place], [phone] GAP 3 Low 5-[address] [facility] Comment on above: Order Comment: Order Date: 07/20/24Order Info: 785-08 - CMPOrder Info: - MGOrder Info: 3015-10 - TSHOrder Info: [id number] - FEOrder Info: 2275-11 - REHAN Performed By: #### L 503.6550, L500.4050, L501.5200, L3100.5475, L100.0100, L503.6150, L503.0105, L501.9520, L101.9900 ####[facility] [address] [place], [place], [address] GFR/1.73 sq M.predicted among non-blacks MDRD (S/P/Bld) [Vol rate/Area] 90 mL/min/{1.73_m2} Normal >[address] [facility] Comment on above: Order Comment: Order Date: 07/20/24Order Info: 785- - CMPOrder Info: - MGOrder Info: 3015-10 - TSHOrder Info: 2497-11 - FEOrder Info: 2275-11 - REHAN Result Comment: Non- GFR Calc Performed By: #### L 503.6550, L500.4050, L501.5200, L3100.5475, L100.0100, L503.6150, L503.0105, L501.9520, L101.9900 ####[facility] [address] [place], [address] Globulin (S) [Mass/Vol] 3.5 g/dL Normal 2.2-4.2 [facility] Comment on above: Order Comment: Order Date: 07/20/24Order Info: 785-08 - CMPOrder Info: - MGOrder Info: 3015-10 - TSHOrder Info: 2497-11 - FEOrder Info: 2275-11 - REHAN Performed By: #### L 503.6550, L500.4050, L501.5200, L3100.5475, L100.0100, L503.6150, L503.0105, L501.9520, L101.9900 ####[facility] [address] [place], [address] Glucose [Mass/Vol] 91 mg/dL Normal 74-106 [facility] Comment on above: Order Comment: Order Date: 07/20/24Order Info: 785-08 - CMPOrder Info: - MGOrder Info: 3015-10 - TSHOrder Info: 2497-11 - FEOrder Info: 2275-11 - REHAN Performed By: #### L 503.6550, L500.4050, L501.5200, L3100.5475, L100.0100, L503.6150, L503.0105, L501.9520, L101.9900 ####[facility] [address] [place], [address] Potassium [Moles/Vol] 3.7 mmol/L Normal 3.5-5.1 [facility] Comment on above: Order Comment: Order Date: 07/20/24Order Info: 07-1 - CMPOrder Info: [id number] - MGOrder Info: 3 - TSHOrder Info: [id number] - FEOrder Info: 2275-4 - REHAN Performed By: #### L 503.6550, L500.4050, L501.5200, L3100.5475, L100.0100, L503.6150, L503.0105, L501.9520, L101.9900 ####[facility] [address] [place], [address] Sodium [Moles/Vol] 141 mmol/L Normal 136-145 [facility] Comment on above: Order Comment: Order Date: 07/20/24Order Info: 785-08 - CMPOrder Info: [id number] - MGOrder Info: 3 - TSHOrder Info: 2497-11 - FEOrder Info: 2275-11 - REHAN Performed By: #### L 503.6550, L500.4050, L501.5200, L3100.5475, L100.0100, L503.6150, L503.0105, L501.9520, L101.9900 ####[facility] [address] [place], [place], [phone](915) T PROT 7.2 g/dL Normal 6.4-8.[address] [facility] Comment on above: Order Comment: Order Date: 07/20/24Order Info: 07- - CMPOrder Info: [id number] - MGOrder Info: 3 - TSHOrder Info: 2494 - FEOrder Info: 227-4 - REHAN Performed By: #### L 503.6550, L500.4050, L501.5200, L3100.5475, L100.0100, L503.6150, L503.0105, L501.9520, L101.9900 ####[facility] [address] [place], [place], [phone]) Urea nitrogen [Mass/Vol] 15 mg/dL Normal 7-[address] [facility] Comment on above: Order Comment: Order Date: 07/20/24Order Info: 0786-1 - CMPOrder Info: [id number] - MGOrder Info: 3016-3 - TSHOrder Info: 2498-4 - FEOrder Info: 2276-4 - REHAN Performed By: #### L 503.6550, L500.4050, L501.5200, L3100.5475, L100.0100, L503.6150, L503.0105, L501.9520, L101.9900 ####[facility] [address] [place], [place], [phone] Eosinophil percentageOrdered By: Sowmya Cabrera on 07-20-2024 Eosinophils/100 WBC (Bld) 1.3 % 0-[address] [facility] Erythrocyte Sed Rateon 07-20 SED RATE 20 mm/hr Normal 0-[address] [facility] Comment on above: Order Comment: Order Date: 07/20/24Order Info: 0184-1 - CBCDOrder Info: [id number] - SED Performed By: #### L 503.6550, L500.4050, L501.5200, L3100.5475, L100.0100, L503.6150, L503.0105, L501.9520, L101.9900 ####[facility] [address] [place], [place], [phone] Erythrocyte distribution wid th ratioOrdered By: Sowmya Cabrera on 07-20-2024 Erythrocyte distribution width (RBC) [Ratio] 13.4 % 11.6-14.[address] [facility] Erythrocyte distribution wid th standard deviationOrdered By: Sowmya Cabrera on 07-20-2024 Erythrocyte distribution width (RBC) [Entitic vol] 45.4 fL High 35.1-43.[address] [facility] Erythrocyte sedimentation ra teOrdered By: Sowmya Cabrera on 07-20-2024 ESR (Bld) [Velocity] 20 mm/h 0-[address] [facility] Estimated glomerular filtrat ion rate (GFR) AmericanOrdered By: Sowmya Cabrera on 07-20-2024 Estimated GFR (MDRD) Amer 109 mL/min >[address] [facility] Comment on above: GFR Calc Ferritinon 07-20-2024 Ferritin [Mass/Vol] 125 ng/mL Normal [facility] Comment on above: Order Comment: Order Date: 07/20/24Order Info: 0786-1 - CMPOrder Info: [id number] - MGOrder Info: 3016-3 - TSHOrder Info: 2498-4 - FEOrder Info: 2276-4 - REHAN Performed By: #### L 503.6550, L500.4050, L501.5200, L3100.5475, L100.0100, L503.6150, L503.0105, L501.9520, L101.9900 ####[facility] [address] [place], [address] Ferritin measurementOrdered By: Sowmya Cabrera on 07-20-2024 Ferritin [Mass/Vol] 125 ng/mL [facility] Glomerular filtration rate ( GFR) estimationOrdered By: Sowmya Cabrera on 07-20-2024 Estimated GFR (MDRD) Non-Af Amer 90 mL/min >[address] [facility] Comment on above: Non- GFR Calc Glucose measurementOrdered B y: Sowmya Cabrera on 07-20-2024 Glucose [Mass/Vol] 91 mg/dL 74-106 [facility] Hematocrit Auto (Bld) [Volum e fraction]Ordered By: Sowmya Cabrera on 07-20-2024 Hematocrit (Bld) [Volume fraction] 39.4 % 37-[address] [facility] Hemoglobin measurementOrdere d By: Sowmya Cabrera on 07-20-2024 Hemoglobin (Bld) [Mass/Vol] 12.8 g/dL 12.0-15.[address] [facility] Immature granulocytes/100 WB C Auto (Bld)Ordered By: Sowmya Cabrera on 07-20-2024 Immature granulocytes/100 WBC (Bld) 0.400 % 0.0-0.[address] [facility] Comment on above: IG% - Immature Granu locytes (promyelocytes, myelocytes and metamyelocytes) > 1% indicates that a LEFT SHIFT is Present. Ironon 07-20-2024 Iron [Mass/Vol] 38 ug/dL Low 50-[address] [facility] Comment on above: Order Comment: Order Date: 07/20/24Order Info: 0786-1 - CMPOrder Info: - MGOrder Info: 3016-3 - TSHOrder Info: 2498-4 - FEOrder Info: 2276-4 - REHAN Performed By: #### L 503.6550, L500.4050, L501.5200, L3100.5475, L100.0100, L503.6150, L503.0105, L501.9520, L101.9900 ####[facility] [address] [place], [address] Iron (Unsp spec) [Mass/Mass] Ordered By: Sowmya Cabrera on 07-20-2024 Iron [Mass/Vol] 38 ug/dL Low 50-[address] [facility] Laboratory - Chemistry and C hemistry - challengeOrdered By: Sowmya Cabrera on 07-20-2024 AST [Catalytic activity/Vol] 32 U/L 15-[address] [facility] Lymphocytes Auto (Unsp spec) [#/Vol]Ordered By: Sowmya Cabrera on 07-20-2024 Lymphocytes (Bld) [#/Vol] 0.91 10*3/uL 0.83-4.[address] [facility] Lymphocytes/100 WBC Auto (Un sp spec)Ordered By: Sowmya Cabrera on 07-20-2024 Lymphocytes/100 WBC (Bld) 20.0 % 19-[address] [facility] MCV (mean corpuscular volume ) determinationOrdered By: Sowmya Cabrera on 07-20-2024 MCV (RBC) [Entitic vol] 92.9 fL 81-99 [facility] Magnesiumon 07-20-2024 Magnesium [Mass/Vol] 2.2 mg/dL Normal 1.6-2.[address] [facility] Comment on above: Order Comment: Order Date: 07/20/24Order Info: [id number] - CMPOrder Info: - MGOrder Info: [id number] - TSHOrder Info: [id number] - FEOrder Info: [id number] - REHAN Performed By: #### L [id number], L500.4050, L501.5200, L3100.5475, L100.0100, L503.6150, L503.0105, L501.9520, L101.9900 ####[facility] [id number] [place], [address] Magnesium measurementOrdered By: Sowmya Cabrera on 07-20-2024 Magnesium [Mass/Vol] 2.2 mg/dL 1.6-2.[address] [facility] Mean corpuscular hemoglobin (MCH) determinationOrdered By: Sowmya Cabrera on 07-20-2024 MCH (RBC) [Entitic mass] 30.2 pg 27.0-32.[address] [facility] Mean corpuscular hemoglobin concentration (MCHC) determinationOrdered By: Sowmya Cabrera on 07-20-2024 MCHC (RBC) [Mass/Vol] 32.5 g/dL 32-36 [facility] Mean platelet volume determi nationOrdered By: Sowmya Cabrera on 07-20-2024 Platelet mean volume (Bld) [Entitic vol] 12.0 fL 6.2-12.[address] [facility] Monocyte percentageOrdered B y: Sowmya Cabrera on 07-20-2024 Monocytes/100 WBC (Bld) 8.1 % 0-10 [facility] Neutrophil percentageOrdered By: Sowmya Cabrera on 07-20-2024 Neutrophils/100 WBC (Bld) 69.8 % 47-[address] [facility] Nucleated red blood cell per centageOrdered By: Sowmya Cabrera on 07-20-2024 Nucleated RBC/100 WBC (Bld) [Ratio] 0 % 0-[address] [facility] Platelet countOrdered By: Zaynab Cabrera on 07-20-2024 Platelets (Bld) [#/Vol] 216 10*3/uL 150-[address] [facility] Potassium measurementOrdered By: Sowmya Cabrera on 07-20-2024 Potassium [Moles/Vol] 3.7 mmol/L 3.5-5.1 [facility] RBC Auto (Bld) [#/Vol]Ordere d By: Sowmya Cabrera on 07-20-2024 RBC (Bld) [#/Vol] 4.24 10*6/uL 4.2-5.4 [facility] Serum anion gap measurementO rdered By: Sowmya Cabrera on 07-20-2024 Anion gap [Moles/Vol] 3 mmol/L Low 5-15 [facility] Serum globulin measurementOr dered By: Sowmya Cabrera on 07-20-2024 Globulin (S) [Mass/Vol] 3.5 g/dL 2.2-4.2 [facility] Serum or plasma alanine eastman otransferase (ALT) measurementOrdered By: Sowmya Cabrera on 07-20-2024 ALT [Catalytic activity/Vol] 30 U/L 13-[address] [facility] Serum or plasma albumin demetrice urement (mass/volume)Ordered By: Sowmya Cabrera on 07-20-2024 Albumin [Mass/Vol] 3.7 g/dL 3.2-5.0 [facility] Serum or plasma alkaline dedrick sphatase measurementOrdered By: Sowmya Cabrera on 07-20-2024 ALP [Catalytic activity/Vol] 96 U/L 45-[address] [facility] Serum or plasma calcium demetrice urement (mass/volume)Ordered By: Sowmya Cabrera on 07-20-2024 Calcium [Mass/Vol] 9.3 mg/dL 8.5-10.1 [facility] Serum or plasma creatinine m easurement (mass/volume)Ordered By: Sowmya Cabrera on 07-20-2024 Creatinine [Mass/Vol] 0.68 mg/dL 0.55-1.02 [facility] Comment on above: The validity of the calculated GFR & GFRAA in patients over 70 years has not been determined. Clinical correlation is essential. Serum or plasma urea nitroge n measurement (mass/volume)Ordered By: Sowmya Cabrera on 07-20-2024 Urea nitrogen [Mass/Vol] 15 mg/dL 7-[address] [facility] Sodium levelOrdered By: Shirin Cabrera on 07-20-2024 Sodium [Moles/Vol] 141 mmol/L 136-145 [facility] TSH QnOrdered By: Mann Cabrera on 07-20-2024 Thyroid Stimulating Hormone (TSH) 2.380 uIU/mL 0.358-3.[address] [facility] Thyroid Stim Hormone (TSH)on 07-20-2024 TSH 2.380 uIU/mL Normal 0.358-3.[address] [facility] Comment on above: Order Comment: Order Date: 07/20/24Order Info: [id number] - CMPOrder Info: [id number] - MGOrder Info: [id number] - TSHOrder Info: [id number] - FEOrder Info: [id number] - REHAN Performed By: #### L 503.6550, L500.4050, L501.5200, L3100.5475, L100.0100, L503.6150, L503.0105, L501.9520, L101.9900 ####[facility] [address] [place], [place], [id number] Total proteinOrdered By: Mari Cabrera on 07-20-2024 Protein [Mass/Vol] 7.2 g/dL 6.4-8.2 [facility] Vitamin B12on 07-20-2024 Cobalamin (Vitamin B12) [Mass/Vol] 559 pg/mL Normal [facility] Comment on above: Order Comment: Order Date: 07/20/24Order Info: [id number] - B12 Performed By: #### L 503.6550, L500.4050, L501.5200, L3100.5475, L100.0100, L503.6150, L503.0105, L501.9520, L101.9900 ####[facility] [address] [place], [address] Vitamin B12 measurementOrder ed By: Sowmya Cabrera on 07-20-2024 Cobalamin (Vitamin B12) [Mass/Vol] 559 pg/mL 211-[address] [facility] White blood cell (WBC) count Ordered By: Sowmya Cabrera on 07-20-2024 WBC (Bld) [#/Vol] 4.6 10*3/uL 4.4-11.0 [facility] Inital Evaluation (1) - PTon 07-16-2024 Inital Evaluation (1) - PT [facility] Physical Therapy [facility] [address] [place] [address] / REHABILITATION SERVICES INITIAL EVALUATION MR#: [id number] Acct: [id number] Name: GERMANIA DONIS Rep #: [id number] : 1945 79 From: Sary Mejia PT, Cert. MDT Referring Dr.: Dr. Lex Rhoades MD Status: REG RCR Insurance: MEDICARE PART A B [facility] Patient's Visit Information Visit Information [...] 3+/5. R ELBOW 5/5 L 5/5. 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 Normal [facility] Shoulder min 2 Viewson 07-[address] [facility] Imaging Services [address] [place], [place] [address] Shoulder min 2 Views MR#: [id number] Acct: [id number] Name: GERMANIA DONIS Rep #: [id number] : 1945 F 79 From: Marco Antonio Reynoso DO PCP: Dr. Sowmya Cabrera MD Status: REG CLI Study: Shoulder min 2 Views Date of Exam: 07/06/24 Exam# [id number] Ordering Dr: Lex Rhoades [place] [id number] INDICATION: Left shoulder pain EXAMINATION/TECHNIQUE: X-RAY - [...] 11:52 EST Reading Location ID and State: [facility] / [place] Tel [phone], Service support , CC: Dr. Lex Rhoades MD; Dr. Sowmya Cabrera MD Pilot Manager: Signed Normal [facility] Shoulder min 2 Viewson 04-[address] [facility] Imaging Services [address] [place], [place] [address] Shoulder min 2 Views MR#: [id number] Acct: [id number] Name: GERMANIA DONIS Rep #: [id number] : 1945 F 78 From: Roxanna Rodriguez MD PCP: Dr. Sowmya Cabrera MD Status: REG CLI Study: Shoulder min 2 Views Date of Exam: 04/19/24 Exam# [id number] Ordering Dr: Sowmya Cabrera [id number] EXAM: XR LEFT SHOULDER COMPLETE, 2 OR [...] EDT , CC: Dr. Sowmya Cabrera MD Pilot Manager: Signed Normal [facility] Echo Completeon 02-17-2024 Echo Complete [facility] Cardi[facility] [address] [place] [address] Echo Complete 02/17/24 0906 MR#: [id number] Acct: [id number] Name: GERMANIA DONIS Rep #: [id number] : 1945 78 From: Jeronimo Anne MD Attending Dr: Dr. Sowmya Cabrera MD Status: REG CLI Ordering Dr: Sowmya Cabrera MD Date: 02/17/24 Location: [facility] Sex: F C Admitted: Reason For [...] MD Date Dictated: 02/17/24905 Date Transcribed: 02/17/241405 Pilot Manager: Signed Normal [facility] SCRN MAMM (CAD)W/CYNTHIA BILATo n 02-17-2024 SCRN MAMM (CAD)W/CYNTHIA BILAT [facility] Imaging Services [address] [place] [address] SCRN MAMM (CAD)W/CYNTHIA BILAT MR#: [id number] Acct: [id number] Name: GERMANIA DONIS Rep #: [id number] : 1945 F 78 From: Nathanael salcido MD PCP: Dr. Sowmya Cabrera MD Status: REG CLI Study: SCRN MAMM (CAD)W/CYNTHIA BILAT Date of Exam: 01/24 01/15 Exam# [id number] Ordering Dr: Sowmya Cabrera [id number] MAMMOGRAPHY - BILATERAL SCREENING REASON FOR EXAM: [...] delay biopsy of a clinically suspicious abnormality. [id number] Electronically Signed: Nathanael Rosenberg MD at 9:12 EDT , CC: Dr. Sowmya Cabrera MD Pilot Manager: Signed Normal [facility] Basophil percentageOrdered B y: Mann Cabrera on 10-21-2023 Chloride [Moles/Vol] 110 mmol/L 98-[address] [facility] Cholesterol [Mass/Vol] 224 mg/dL <200 [facility] Comment on above: <200 mg/dL Desirable 200-240 mg/dL Borderline >240 mg/dL High Risk Glucose [Mass/Vol] 98 mg/dL 74-106 [facility] Potassium [Moles/Vol] 4.2 mmol/L 3.5-5.1 [facility] Sodium [Moles/Vol] 142 mmol/L 136-145 [facility] Triglyceride [Mass/Vol] 50 mg/dL <199 [facility] Comment on above: The drugs N-Acetylcy steine and Metamizole may falsely depress this assay.Serum Triglycerides Reference Interval Normal <150 mg/dL Borderline high 150 - 199 mg/dL High 200 - 499 mg/dL Very High > or = 500 mg/dL Laboratory - Chemistry and C hemistry - challengeOrdered By: Mann Cabrera on 10-21-2023 Cholesterol in HDL [Mass/Vol] 71 mg/dL >[address] [facility] Comment on above: The drugs N-Acetylcy steine and Metamizole may falsely depress this assay. Reference Range HDL <40 mg/dL Low HDL Cholesterol HDL >or= 60 mg/dL High HDL Cholesterol Cholesterol in LDL [Mass/Vol] 143 mg/dL 0-[address] [facility] CO2 [Moles/Vol] 29.0 mmol/L 21.0-32.[address] [facility] Urea nitrogen/Creatinine [Mass ratio] 27.7 mg/mg 10-[address] [facility] No Panel InformationOrdered By: Mann Cabrera on 10-21-2023 Estimated GFR (MDRD) Amer 101 mL/min >[address] [facility] Comment on above: GFR Calc Estimated GFR (MDRD) Non-Af Amer 84 mL/min >[address] [facility] Comment on above: Non- GFR Calc VLDL Cholesterol 10 mg/dL 5-[address] [facility] Serum or plasma calcium demetrice urement (mass/volume)Ordered By: Mann Cabrera on 10-21-2023 Calcium [Mass/Vol] 9.0 mg/dL 8.5-10.1 [facility] Serum or plasma creatinine m easurement (mass/volume)Ordered By: Mann Cabrera on 10-21-2023 Creatinine [Mass/Vol] 0.72 mg/dL 0.55-1.02 [facility] Comment on above: The validity of the calculated GFR & GFRAA in patients over 70 years has not been determined. Clinical correlation is essential. Serum or plasma thyroid stim ulating hormone (TSH) measurement (units/volume)Ordered By: Mann Cabrera on 10-21-2023 TSH Qn 1.70 uIU/mL 0.358-3.[address] [facility] Serum or plasma urea nitroge n measurement (mass/volume)Ordered By: Mann Cabrera on 10-21-2023 Urea nitrogen [Mass/Vol] 20 mg/dL 7-[address] [facility] Thin prep Papanicolaou smear with manual screeningOrdered By: Mann Cabrera on 10-21-2023 Thin prep Papanicolaou smear with manual screening 3 5-[address] [facility] Basophil percentageOrdered B y: Dr. Cabrera on 12-16-2022 Bilirubin [Mass/Vol] 0.30 mg/dL 0.20-1.[address] [facility] Comment on above: For patients on eltr ombopag therapy, use of Dimension [place] TBIL is not recommended. Chloride [Moles/Vol] 108 mmol/L 98-[address] [facility] Cholesterol [Mass/Vol] 210 mg/dL <200 [facility] Comment on above: <200 mg/dL Desirable 200-240 mg/dL Borderline >240 mg/dL High Risk Glucose [Mass/Vol] 93 mg/dL 74-106 [facility] Potassium [Moles/Vol] 3.7 mmol/L 3.5-5.1 [facility] Protein [Mass/Vol] 7.6 g/dL 6.4-8.2 [facility] Sodium [Moles/Vol] 139 mmol/L 136-145 [facility] Triglyceride [Mass/Vol] 86 mg/dL <199 [facility] Comment on above: The drugs N-Acetylcy steine and Metamizole may falsely depress this assay.Serum Triglycerides Reference Interval Normal <150 mg/dL Borderline high 150 - 199 mg/dL High 200 - 499 mg/dL Very High > or = 500 mg/dL Laboratory - Chemistry and C hemistry - challengeOrdered By: Dr. Cabrera on 12-16-2022 ALP [Catalytic activity/Vol] 90 U/L 45-[address] [facility] ALT [Catalytic activity/Vol] 41 U/L 13-[address] [facility] CO2 [Moles/Vol] 26.0 mmol/L 21.0-32.[address] [facility] Free T4 [Mass/Vol] 1.10 ng/dL 0.76-1.46 [facility] Globulin (S) [Mass/Vol] 4.4 g/dL 2.2-4.2 [facility] Magnesium [Mass/Vol] 2.2 mg/dL 1.6-2.[address] [facility] Urea nitrogen/Creatinine [Mass ratio] 21.1 mg/mg 10-[address] [facility] No Panel InformationOrdered By: Dr. Cabrera on 12-16-2022 Estimated GFR (MDRD) Amer 112 mL/min >[address] [facility] Comment on above: GFR Calc Estimated GFR (MDRD) Non-Af Amer 92 mL/min >[address] [facility] Comment on above: Non- GFR Calc Ionized Calcium 5.0 mg/dL 4.5-5.[address] [facility] Comment on above: Performed at: [address] [id number] Director: Wilder Araya PhD, Phone: [phone] Parathyroid Hormone (Intact) 25.4 pg/mL 18.4-80.[address] [facility] Thyroid Stimulating Hormone (TSH) 0.30 uIU/mL 0.358-3.[address] [facility] Vitamin D 25-Hydroxy 99.5 ng/mL [facility] Comment on above: Vitamin D 25(OH) Sta tus Range Deficiency <20 ng/mL (50nmol/L) Insufficiency 20 - 30 ng/mL (50 - 75 nmol/L) Sufficiency 30 - 100 ng/mL (75 - 250 nmol/L) Toxicity >100 ng/mL (>250 nmol/L) Serum or plasma albumin demetrice urement (mass/volume)Ordered By: Dr. Cabrera on 12-16-2022 Albumin [Mass/Vol] 3.2 g/dL 3.2-5.0 [facility] Serum or plasma albumin/glob ulin mass ratioOrdered By: Dr. Cabrera on 12-16-2022 Albumin/Globulin [Mass ratio] 0.7 {ratio} 0.9-2.[address] [facility] Serum or plasma calcium demetrice urement (mass/volume)Ordered By: Dr. Cabrera on 12-16-2022 Calcium [Mass/Vol] 9.0 mg/dL 8.5-10.1 [facility] Serum or plasma cholesterol in HDL measurement (mass/volume)Ordered By: Dr. Cabrera on 12-16-2022 Cholesterol in HDL [Mass/Vol] 59 mg/dL >[address] [facility] Comment on above: The drugs N-Acetylcy steine and Metamizole may falsely depress this assay. Reference Range HDL <40 mg/dL Low HDL Cholesterol HDL >or= 60 mg/dL High HDL Cholesterol Serum or plasma cholesterol in VLDL measurement (mass/volume)Ordered By: Dr. Cabrera on 12-16-2022 Cholesterol in VLDL [Mass/Vol] 17 mg/dL 5-[address] [facility] Serum or plasma creatinine m easurement (mass/volume)Ordered By: Dr. Cabrera on 12-16-2022 Creatinine [Mass/Vol] 0.66 mg/dL 0.55-1.02 [facility] Comment on above: The validity of the calculated GFR & GFRAA in patients over 70 years has not been determined. Clinical correlation is essential. Serum or plasma low density lipoprotein (LDL) cholesterol measurement (mass/volume)Ordered By: Dr. Cabrera on 12-16-2022 Cholesterol in LDL [Mass/Vol] 134 mg/dL 0-[address] [facility] Serum or plasma urea nitroge n measurement (mass/volume)Ordered By: Dr. Cabrera on 12-16-2022 Urea nitrogen [Mass/Vol] 14 mg/dL 7-[address] [facility] Thin prep Papanicolaou smear with manual screeningOrdered By: Dr. Cabrera on 12-16-2022 Thin prep Papanicolaou smear with manual screening 38 U/L 15-[address] [facility] Thin prep Papanicolaou smear with manual screening 5 5-[address] [facility] Laboratory - Chemistry and C hemistry - challengeon 06-24-2022 Free T4 [Mass/Vol] 1.19 ng/dL 0.76-1.46 [facility] Work Phone: No Panel Informationon 06-24 Thyroid Stimulating Hormone (TSH) 0.77 uIU/mL 0.358-3.[address] [facility] Work Phone: Basophil percentageon 2021 Bilirubin [Mass/Vol] 0.40 mg/dL 0.20-1.[address] [facility] Work Phone: Comment on above: For patients on eltr ombopag therapy, use of Dimension [place] TBIL is not recommended. Chloride [Moles/Vol] 107 mmol/L 98-[address] [facility] Work Phone: Cholesterol [Mass/Vol] 251 mg/dL <200 [facility] Work Phone: Comment on above: <200 mg/dL Desirable 200-240 mg/dL Borderline >240 mg/dL High Risk Glucose [Mass/Vol] 90 mg/dL 74-106 [facility] Work Phone: Potassium [Moles/Vol] 4.1 mmol/L 3.5-5.1 [facility] Work Phone: Protein [Mass/Vol] 7.3 g/dL 6.4-8.2 [facility] Work Phone: Sodium [Moles/Vol] 140 mmol/L 136-145 [facility] Work Phone: [phone] Triglyceride [Mass/Vol] 66 mg/dL <199 [facility] Work Phone: [phone] Comment on above: The drugs N-Acetylcy steine and Metamizole may falsely depress this assay.Serum Triglycerides Reference Interval Normal <150 mg/dL Borderline high 150 - 199 mg/dL High 200 - 499 mg/dL Very High > or = 500 mg/dL WBC (Bld) [#/Vol] 4.3 10*3/uL 4.4-11.0 [facility] Work Phone: Blood erythrocytes count (nu mber/volume)on 04-30-2022 RBC (Bld) [#/Vol] 4.44 10*6/uL 4.2-5.4 [facility] Work Phone: Blood hemoglobin measurement (mass/volume)on 04-30-2022 Hemoglobin (Bld) [Mass/Vol] 13.1 g/dL 12.0-15.[address] [facility] Work Phone: [phone] Blood platelet mean volumeon 04-30-2022 Platelet mean volume (Bld) [Entitic vol] 11.6 fL 6.2-12.[address] [facility] Work Phone: Determination of erythrocyte mean corpuscular volume (MCV)on 04-30-2022 MCV (RBC) [Entitic vol] 92.1 fL 81-99 [facility] Work Phone: [phone] Hematocrit Auto (Bld) [Volum e fraction]on 04-30-2022 Hematocrit (Bld) [Volume fraction] 40.9 % 37-[address] [facility] Work Phone: Laboratory - Chemistry and C hemistry - challengeon 04-30-2022 ALP [Catalytic activity/Vol] 85 U/L 45-[address] [facility] Work Phone: ALT [Catalytic activity/Vol] 34 U/L 13-[address] [facility] Work Phone: [phone] CO2 [Moles/Vol] 28.0 mmol/L 21.0-32.[address] [facility] Work Phone: Free T4 [Mass/Vol] 0.91 ng/dL 0.76-1.46 [facility] Work Phone: Globulin (S) [Mass/Vol] 3.9 g/dL 2.2-4.2 [facility] Work Phone: [phone] Urea nitrogen/Creatinine [Mass ratio] 28.1 mg/mg 10-[address] [facility] Work Phone: Laboratory - Hematology and Cell countson 04-30-2022 Erythrocyte distribution width (RBC) [Entitic vol] 46.3 fL 35.1-43.[address] [facility] Work Phone: [phone] Erythrocyte distribution width (RBC) [Ratio] 13.6 % 11.6-14.[address] [facility] Work Phone: [phone] MCH (RBC) [Entitic mass] 29.5 pg 27.0-32.[address] [facility] Work Phone: [phone] MCHC Auto (RBC) [Mass/Vol]on 04-30-2022 MCHC (RBC) [Mass/Vol] 32.0 g/dL 32-36 [facility] Work Phone: [phone] Panel Informationon 04-30 Estimated GFR (MDRD) Amer 97 mL/min >[address] [facility] Work Phone: [phone] Comment on above: GFR Calc Estimated GFR (MDRD) Non-Af Amer 80 mL/min >[address] [facility] Work Phone: [phone] Comment on above: Non- GFR Calc Thyroid Stimulating Hormone (TSH) 3.14 uIU/mL 0.358-3.[address] [facility] Work Phone: [phone] Vitamin D 25-Hydroxy 62.3 ng/mL [facility] Work Phone: [phone] Comment on above: Vitamin D 25(OH) Sta tus Range Deficiency <20 ng/mL (50nmol/L) Insufficiency 20 - 30 ng/mL (50 - 75 nmol/L) Sufficiency 30 - 100 ng/mL (75 - 250 nmol/L) Toxicity >100 ng/mL (>250 nmol/L) Platelets bldon 04-30-2022 Platelets (Bld) [#/Vol] 203 10*3/uL 150-[address] [facility] Work Phone: [phone] Serum or plasma albumin demetrice urement (mass/volume)on 04-30-2022 Albumin [Mass/Vol] 3.4 g/dL 3.2-5.0 [facility] Work Phone: [phone] Serum or plasma albumin/glob ulin mass ratioon 04-30-2022 Albumin/Globulin [Mass ratio] 0.9 {ratio} 0.9-2.[address] [facility] Work Phone: Serum or plasma calcium demetrice urement (mass/volume)on 04-30-2022 Calcium [Mass/Vol] 9.1 mg/dL 8.5-10.1 [facility] Work Phone: Serum or plasma cholesterol in HDL measurement (mass/volume)on 04-30-2022 Cholesterol in HDL [Mass/Vol] 72 mg/dL >[address] [facility] Work Phone: Comment on above: The drugs N-Acetylcy steine and Metamizole may falsely depress this assay. Reference Range HDL <40 mg/dL Low HDL Cholesterol HDL >or= 60 mg/dL High HDL Cholesterol Serum or plasma cholesterol in VLDL measurement (mass/volume)on 04-30-2022 Cholesterol in VLDL [Mass/Vol] 13 mg/dL 5-[address] [facility] Work Phone: [phone] Serum or plasma creatinine m easurement (mass/volume)on 04-30-2022 Creatinine [Mass/Vol] 0.75 mg/dL 0.55-1.02 [facility] Work Phone: Comment on above: The validity of the calculated GFR & GFRAA in patients over 70 years has not been determined. Clinical correlation is essential. Serum or plasma low density lipoprotein (LDL) cholesterol measurement (mass/volume)on 04-30-2022 Cholesterol in LDL [Mass/Vol] 166 mg/dL 0-[address] [facility] Work Phone: Serum or plasma urea nitroge n measurement (mass/volume)on 04-30-2022 Urea nitrogen [Mass/Vol] 21 mg/dL 7-[address] [facility] Work Phone: [phone] Thin prep Papanicolaou smear with manual screeningon 04-30-2022 Thin prep Papanicolaou smear with manual screening 30 U/L 15-[address] [facility] Work Phone: [phone] Thin prep Papanicolaou smear with manual screening 5 5-[address] [facility] Work Phone: [phone] Basophil percentageon 2021 Basophil percentage 65 mg/dL [facility] Work Phone: [phone] No Panel Informationon 11-23 Insulin Resistance/Diabetes Risk <[address] [facility] Work Phone: Comment on above: INSULIN RESISTANCE [...] component of a physician'sclinical assessment.Performed at: - [address] [id number] Director: Tomy Moser MD, Phone: [phone] LDL Cholesterol Particle Number [id number] nmol/L [facility] Work Phone: Comment on above: Low < 1000 Moderate 1000 - 1299 Borderline-High 1300 - 1599 High 1600 - 2000 Very High > 2000 LDL Cholesterol Particle Size 21.[address] [facility] Work Phone: Comment on above: INTERPRETATIVE INFORMATION [...] into account. LDL Cholesterol, Calculated 156 mg/dL [facility] Work Phone: Comment on above: Optimal < 100 Above optimal 100 - 129 Borderline 130 - 159 High 160 - 189 Very high > 189 Small LDL Particle Number [id number] nmol/L [facility] Work Phone: Serum or plasma cholesterol in HDL measurement (mass/volume)on 11-23-2021 Cholesterol in HDL [Mass/Vol] 63 mg/dL [facility] Work Phone: Serum or plasma cholesterol measurement (mass/volume)on 11-23-2021 Cholesterol [Mass/Vol] 230 mg/dL [facility] Work Phone: Thin prep Papanicolaou smear with manual screeningon 11-23-2021 Thin prep Papanicolaou smear with manual screening 34.3 umol/L [facility] Work Phone: CT CARDIAC SCORINGon 022 CT CARDIAC SCORING Patient Name: GERMANIA DONIS STUDY: CT CARDIAC SCORING; 08/31/2021 3:12 pm INDICATION: E78.5 Hyperlipidemia, unspecified. COMPARISON: None. ACCESSION NUMBER(S): [id number] ORDERING CLINICIAN: SOWMYA CABRERA TECHNIQUE: Using prospective [...] coronary heart disease events. According to the [place] [employer] Clinical Expert Consensus [...] modify other non-lipid coronary risk factors. Reference: [place] P et al. Circulation. 2007; 115:402-426 2. Faint ground-glass opacities in the right upper lobe, which may be related to infiltrates. Clinical correlation and further evaluation may be obtained as clinically warranted. The report was faxed to the referring office. Electronically signed by: JINA OVALLE MD [facility] Absolute lymphocyte counton 08-01-2021 Lymphocytes Auto (Unsp spec) [#/Vol] 1.08 10*3/uL 0.83-4.[address] [facility] Work Phone: Basophil percentageon 2020 Bilirubin [Mass/Vol] 0.50 mg/dL 0.20-1.[address] [facility] Work Phone: Comment on above: For patients on eltr ombopag therapy, use of Dimension [place] TBIL is not recommended. Chloride [Moles/Vol] 104 mmol/L 98-[address] [facility] Work Phone: Cholesterol [Mass/Vol] 324 mg/dL <200 [facility] Work Phone: Comment on above: <200 mg/dL Desirable 200-240 mg/dL Borderline >240 mg/dL High Risk Eosinophils/100 WBC (Bld) 0.2 % 0-[address] [facility] Work Phone: Glucose [Mass/Vol] 96 mg/dL 74-106 [facility] Work Phone: Comment on above: Please note revised GLUCOSE reference range effective 2017. Neutrophils (Bld) [#/Vol] 8.4 10*3/uL 2.0-7.[address] [facility] Work Phone: Potassium [Moles/Vol] 4.0 mmol/L 3.5-5.1 [facility] Work Phone: [phone] Protein [Mass/Vol] 7.8 g/dL 6.4-8.2 [facility] Work Phone: [phone] Sodium [Moles/Vol] 138 mmol/L 136-145 [facility] Work Phone: [phone] Triglyceride [Mass/Vol] 59 mg/dL [facility] Work Phone: [phone] Comment on above: The drugs N-Acetylcy steine and Metamizole may falsely depress this assay.Serum Triglycerides Reference Interval Normal <150 mg/dL Borderline high 150 - 199 mg/dL High 200 - 499 mg/dL Very High > or = 500 mg/dL WBC (Bld) [#/Vol] 10.3 10*3/uL 4.4-11.0 [facility] Work Phone: [phone] Blood erythrocytes count (nu mber/volume)on 08-01-2021 RBC (Bld) [#/Vol] 4.62 10*6/uL 4.2-5.4 [facility] Work Phone: [phone] Blood hemoglobin measurement (mass/volume)on 08-01-2021 Hemoglobin (Bld) [Mass/Vol] 13.4 g/dL 12.0-15.[address] [facility] Work Phone: [phone] Blood lymphocytes/100 leukoc yteson 08-01-2021 Lymphocytes/100 WBC (Bld) 10.5 % 19-[address] [facility] Work Phone: [phone] Blood monocytes/100 leukocyt eson 08-01-2021 Monocytes/100 WBC (Bld) 7.2 % 0-10 [facility] Work Phone: [phone] Blood platelet mean volumeon 08-01-2021 Platelet mean volume (Bld) [Entitic vol] 11.8 fL 6.2-12.[address] [facility] Work Phone: [phone] Culture, urineon 08-01-2021 Bacteria identified Cx Nom (U) Presumptive E. coli [facility] Work Phone: [phone] Determination of erythrocyte mean corpuscular volume (MCV)on 08-01-2021 MCV (RBC) [Entitic vol] 90.7 fL 81-99 [facility] Work Phone: Hematocrit Auto (Bld) [Volum e fraction]on 08-01-2021 Hematocrit (Bld) [Volume fraction] 41.9 % 37-[address] [facility] Work Phone: Laboratory - Chemistry and C hemistry - challengeon 08-01-2021 ALP [Catalytic activity/Vol] 110 U/L 45-[address] [facility] Work Phone: ALT [Catalytic activity/Vol] 26 U/L 13-[address] [facility] Work Phone: [phone] CO2 [Moles/Vol] 26.0 mmol/L 21.0-32.[address] [facility] Work Phone: Free T4 [Mass/Vol] 0.98 ng/dL 0.76-1.46 [facility] Work Phone: [phone] Globulin (S) [Mass/Vol] 4.5 g/dL 2.2-4.2 [facility] Work Phone: [phone] Magnesium [Mass/Vol] 2.3 mg/dL 1.6-2.[address] [facility] Work Phone: [phone] Urea nitrogen/Creatinine [Mass ratio] 15.6 mg/mg 10-[address] [facility] Work Phone: Laboratory - Hematology and Cell countson 08-01-2021 Basophils/100 WBC (Unsp spec) 0.2 % 0-[address] [facility] Work Phone: [phone] Erythrocyte distribution width (RBC) [Entitic vol] 45.1 fL 35.1-43.[address] [facility] Work Phone: [phone] Erythrocyte distribution width (RBC) [Ratio] 13.5 % 11.6-14.[address] [facility] Work Phone: Immature granulocytes/100 WBC (Bld) 0.300 % 0.0-0.[address] [facility] Work Phone: Comment on above: IG% - Immature Granu locytes (promyelocytes, myelocytes and metamyelocytes) > 1% indicates that a LEFT SHIFT is Present. MCH (RBC) [Entitic mass] 29.0 pg 27.0-32.[address] [facility] Work Phone: Neutrophils/100 WBC (Bld) 81.6 % 47-[address] [facility] Work Phone: [phone] Nucleated RBC/100 WBC (Bld) [Ratio] 0 % 0-[address] [facility] Work Phone: [phone] MCHC Auto (RBC) [Mass/Vol]on 08-01-2021 MCHC (RBC) [Mass/Vol] 32.0 g/dL 32-36 [facility] Work Phone: No Panel Informationon 08-01 Estimated GFR (MDRD) Amer 86 mL/min >[address] [facility] Work Phone: Comment on above: GFR Calc Estimated GFR (MDRD) Non-Af Amer 71 mL/min >[address] [facility] Work Phone: Comment on above: Non- GFR Calc Ionized Calcium 5.3 mg/dL [facility] Work Phone: Comment on above: Performed at: [place] [id number] Director: Wilder Araya PhD, Phone: [phone] Parathyroid Hormone (Intact) 28.6 pg/mL 18.4-80.[address] [facility] Work Phone: [phone] Thyroid Stimulating Hormone (TSH) 1.49 uIU/mL 0.358-3.[address] [facility] Work Phone: [phone] Platelets bldon 08-01-2021 Platelets (Bld) [#/Vol] 237 10*3/uL 150-[address] [facility] Work Phone: [phone] Serum or plasma albumin demetrice urement (mass/volume)on 08-01-2021 Albumin [Mass/Vol] 3.3 g/dL 3.2-5.0 [facility] Work Phone: [phone] Serum or plasma albumin/glob ulin mass ratioon 08-01-2021 Albumin/Globulin [Mass ratio] 0.7 {ratio} 0.9-2.[address] [facility] Work Phone: [phone] Serum or plasma calcium demetrice urement (mass/volume)on 08-01-2021 Calcium [Mass/Vol] 9.2 mg/dL 8.5-10.1 [facility] Work Phone: [phone] Serum or plasma cholesterol in HDL measurement (mass/volume)on 08-01-2021 Cholesterol in HDL [Mass/Vol] 66 mg/dL [facility] Work Phone: Comment on above: The drugs N-Acetylcy steine and Metamizole may falsely depress this assay. Reference Range HDL <40 mg/dL Low HDL Cholesterol HDL >or= 60 mg/dL High HDL Cholesterol Serum or plasma cholesterol in VLDL measurement (mass/volume)on 08-01-2021 Cholesterol in VLDL [Mass/Vol] 12 mg/dL 5-[address] [facility] Work Phone: [phone] Serum or plasma creatinine m easurement (mass/volume)on 08-01-2021 Creatinine [Mass/Vol] 0.84 mg/dL 0.55-1.02 [facility] Work Phone: Comment on above: The validity of the calculated GFR & GFRAA in patients over 70 years has not been determined. Clinical correlation is essential. Serum or plasma low density lipoprotein (LDL) cholesterol measurement (mass/volume)on 08-01-2021 Cholesterol in LDL [Mass/Vol] 246 mg/dL 0-[address] [facility] Work Phone: [phone] Serum or plasma urea nitroge n measurement (mass/volume)on 08-01-2021 Urea nitrogen [Mass/Vol] 13 mg/dL 7-[address] [facility] Work Phone: [phone] Thin prep Papanicolaou smear with manual screeningon 08-01-2021 Thin prep Papanicolaou smear with manual screening 22 U/L 15-[address] [facility] Work Phone: [phone] Thin prep Papanicolaou smear with manual screening 8 5-[address] [facility] Work Phone: PROGRESSon 09-15-2017 PROGRESS HNO ID: [id number]: [place] (Rt) Pillo Anglin: (none)Author Type: TechnicianType: Progress NotesFiled: 09/15/2017 2:45 PMNote Text: Radiology Service Progress NotePATIENT NAME: Germania DonisMRN: [id number] OF SERVICE: September 15, 2017TIME: 2:39 PMPATIENT IDENTITY VERIFICATION COMPLETED USING TWO (2) METHODS: Patientconfirmed name verbally and Date of .PATIENT GENDER DATA: Female. status: : NoBreastfeeding status: NO.PATIENT RELEVANT IMPLANT DATA REVIEWED: Not ApplicableRADIOLOGY DEPARTMENT: General X-ray: Exam(s) Completed: Chest X-RayPERIPHERAL IV DATA: Not applicableSIGNED BY: RT ElsaSeptember 15, 2017 2:39 PM Normal [facility] XR CHEST 2V FRONTAL/LATon XR CHEST [...] MARK MD on Sep 15 2017 3:39PM [id number] ACN Normal [facility] CNOVon 08-30-2017 CNOV Office Visit (UCWSTR) GERMANIA DONIS ([id number]) 1945 FDate Time Provider Department08/30/17 1:15 PM PABLO HENDRICKSON) [facility] During your visit today, we recorded the following information about you: Temperature Pulse Respiration Blood pressure 102.4 degrees 119/minute 20/minute 100/60 Weight 68 kgCara R BOOKER Hendrickson 08/30/2017 2:20 PM SignedThis note was created using Codbod Technologiesriter.Chelsea Disla presents with a cough and chest [...] Visit Diagnosis:Bacterial pneumonia [J15.9]Order(s):XR CHEST 2V FRONTAL/LAT [1991462] Order #: [id number] FUTURE ibuprofen (MOTRIN) 800 mg tabletTake 1 [...] by PABLO HENDRICKSON PA-C on 08/30/17 Normal [facility] PROGRESSon 08-30-2017 PROGRESS HNO ID: [id number]: Sary Moon RtService: (none)Author Type: (none)Type: Progress NotesFiled: 08/30/2017 1:57 PMNote Text: Radiology Service Progress NotePATIENT NAME: Germania DonisMRN: [id number] OF SERVICE: August 30, 2017TIME: 1:46 PMPATIENT IDENTITY VERIFICATION COMPLETED USING TWO (2) METHODS: Patientconfirmed name verbally and Date of .PATIENT GENDER DATA: Female. status: : NoBreastfeeding status: NO.PATIENT RELEVANT IMPLANT DATA REVIEWED: Not ApplicableRADIOLOGY DEPARTMENT: General X-ray: Exam(s) Completed: Chest X-RayPERIPHERAL IV DATA: Not applicableSIGNED BY: Sary Moon RtJan2017 1:46 PM Normal [facility] PROGRESS HNO ID: [id number]: Pablo Tiwari) AthyService: (none)Author Type: Physician AssistantType: Progress NotesFiled: 08/30/2017 2:20 PMNote Text:This note was created using [employer].SubjectiveH Naif presents with a cough and chest [...] next few days also.Pablo Hendrickson PA-C Normal [facility] XR CHEST 2V FRONTAL/LATon XR CHEST [...] ENAMORADO MD on Aug 30 2017 2:02PM [id number] ACN Normal [facility] Vital Signs Date Time Vital Sign Value Performing Clinician Faci litalley 12-20-2024 10:01-0400 Body weight 61.[address] Sowmya Cabrera MD Work Phone: [facility] 12-07-2024 14:49-0400 Body temperature 97.6 [degF] Dr. Sowmya Cabrera MD Work Phone: [facility] 12-07-2024 14:49-0400 Diastolic blood pressure 70 mm[Hg] Dr. Sowmya Cabrera MD Work Phone: [facility] 12-07-2024 14:49-0400 Heart rate 89 /min Dr. Sowmya Cabrera MD Work Phone: [facility] 12-07-2024 14:49-0400 Respiratory rate 18 /min Dr. Sowmya Cabrera MD Work Phone: [facility] 12-07-2024 14:49-0400 SaO2% (BldA) [Mass fraction] 98 % Dr. Sowmya Cabrera MD Work Phone: [phone] [place] [address] 12-07-2024 14:49-0400 Systolic blood pressure 134 mm[Hg] Dr. Sowmya Cabrera MD Work Phone: [facility] 12-05-2024 11:12-0400 Body height 157.[address] Sowmya Cabrera MD Work Phone: [facility] 12-05-2024 11:12-0400 Body weight 65.[address] Sowmya Cabrera MD Work Phone: [facility] 12-05-2024 05:57-0400 Inhaled oxygen flow rate 2 L/min Dr. Sowmya Cabrera MD Work Phone: [facility] 12-04-2024 15:59-0400 Body mass index (BMI) [Ratio] 26.5 kg/m2 Dr. Sowmya Cabrera MD Work Phone: [facility] 12-04-2024 12:19-0400 Body height 157.[address] Sowmya Cabrera MD Work Phone: [facility] 12-04-2024 12:19-0400 Body mass index (BMI) [Ratio] 26.5 kg/m2 Dr. Sowmya Cabrera MD Work Phone: [facility] 12-04-2024 12:19-0400 Body temperature 98 [degF] Dr. Sowmya Cabrera MD Work Phone: [facility] 12-04-2024 12:19-0400 Body weight 65.[address] Sowmya Cabrera MD Work Phone: [facility] 12-04-2024 12:19-0400 Diastolic blood pressure 61 mm[Hg] Dr. Sowmya Cabrera MD Work Phone: [facility] 12-04-2024 12:19-0400 Heart rate 79 /min Dr. Sowmya Cabrera MD Work Phone: [facility] 12-04-2024 12:19-0400 Respiratory rate 14 /min Dr. Sowmya Cabrera MD Work Phone: [facility] 12-04-2024 12:19-0400 SaO2% (BldA) [Mass fraction] 98 % Dr. Sowmya Cabrera MD Work Phone: [phone] [place] [address] 12-04-2024 12:19-0400 Systolic blood pressure 91 mm[Hg] Dr. Sowmya Cabrera MD Work Phone: [facility] 11-04-2024 10:54-0400 Body temperature 97.9 [degF] Dr. Sowmya Cabrera MD Work Phone: [facility] 11-04-2024 10:54-0400 Diastolic blood pressure 52 mm[Hg] Dr. Sowmya Cabrera MD Work Phone: [facility] 11-04-2024 10:54-0400 Heart rate 69 /min Dr. Sowmya Cabrera MD Work Phone: [facility] 11-04-2024 10:54-0400 Respiratory rate 14 /min Dr. Sowmya Cabrera MD Work Phone: [facility] 11-04-2024 10:54-0400 SaO2% (BldA) [Mass fraction] 95 % Dr. Sowmya Cabrera MD Work Phone: [phone] [place] [address] 11-04-2024 10:54-0400 Systolic blood pressure 101 mm[Hg] Dr. Sowmya Cabrera MD Work Phone: [facility] 11-04-2024 06:19-0400 Body height 165.[address] Sowmya Cabrera MD Work Phone: [phone] [place] [address] 11-04-2024 06:19-0400 Body mass index (BMI) [Ratio] 23.5 kg/m2 Dr. Sowmya Cabrera MD Work Phone: 1([phone] [place] [address] 11-04-2024 06:19-0400 Body weight 64.[address] Sowmya Cabrera MD Work Phone: [phone] [place] [address] 09-27-2024 14:13-0500 Body mass index (BMI) [Ratio] 23.8 kg/m2 Dr. Sowmya Cabrera MD Work Phone: [phone] [place] [address] 09-27-2024 14:13-0500 Body temperature 97.3 [degF] Dr. Sowmya Cabrera MD Work Phone: [phone] [place] [address] 09-27-2024 14:13-0500 Body weight 64.[address] Sowmya Cabrera MD Work Phone: [phone])436-685868 [place] [address] 09-27-2024 14:13-0500 Diastolic blood pressure 49 mm[Hg] Dr. Sowmya Cabrera MD Work Phone: 3([phone])134-921068 [place] [address] 09-27-2024 14:13-0500 Heart rate 87 /min Dr. Sowmya Cabrera MD Work Phone: [phone])137-744868 [place] [address] 09-27-2024 14:13-0500 Respiratory rate 17 /min Dr. Sowmya Cabrera MD Work Phone: [phone] [place] [address] 09-27-2024 14:13-0500 SaO2% (BldA) [Mass fraction] 94 % Dr. Sowmya Cabrera MD Work Phone: [phone])877-688868 [place] [address] 09-27-2024 14:13-0500 Systolic blood pressure 80 mm[Hg] Dr. Sowmya Cabrera MD Work Phone: [phone] [place] [address] Encounters Encounter Date Encounter Type Care Provider Facility Start: 12-20-2024 End: 12-20-[address] Darrick Light MD -[facility] Work Phone: Start: 12-20-2024 End: 12-20-2024 ambulatory Sowmya Cabrera Facility:[facility] Start: 12-07-2024 Non-patient / Non-visit Eleonora Jeremy [facility] Start: 12-06-2024 Non-patient / Non-visit Eleonorarose mary Luna [facility] Start: 12-05-2024 Non-patient / Non-visit Dr. Darrick Light MD -[facility] Start: 12-04-2024 ambulatory Darrick Light Facility: [facility] Start: 12-04-2024 End: 12-07-2024 Evaluation and management of inpatient Dr. Darrick Light MD -[facility] Work Phone: Start: 12-04-[address] [facility] [place] Dr. Darrick Light MD -Quality Improvement [facility] Inpatients Work Phone: Start: 12-04-[address] Mann Cabrera MD Work Phone: [facility] Work Phone: Start: 12-04-2024 Non-patient / Non-visit Dr. Darrick Light MD -[facility] Start: 11-19-2024 End: 11-19-[address] Shelly Leonard MD -[facility] Work Phone: Start: 11-19-2024 End: 11-19-2024 ambulatory Sowmya Cabrera Facility:[facility] Start: 11-16-2024 Encounter for other preprocedural examination Shelly Leonard [facility] Start: 11-04-2024 ambulatory Shelly Leonard [facility] y:[facility] Start: 11-04-2024 Non-patient / Non-visit Dr. Todd Leonard MD -[facility] Start: 11-04-2024 End: 11-04-2024 Admission to [facility] center Dr. Shelly Leonard MD -[facility] Start: 11-04-2024 End: 11-04-[address] Sowmya Cabrera MD Work Phone: [facility] Work Phone: Start: 10-04-2024 End: 10-04-[address] Sowmya Cabrera MD -[facility] Work Phone: Start: 10-04-2024 End: 10-04-2024 ambulatory Sowmya Cabrera Facility:[facility] Start: 09-27-2024 End: 09-27-[address] Shelly Leonard MD -[facility] Work Phone: Start: 09-27-2024 End: 09-27-2024 ambulatory Sowmya Cabrera Facility:[facility] Start: 08-12-2024 End: 08-12-2024 ambulatory Sowmya Cabrera Facility:[facility] Start: 08-12-[address] Lex Rhoades MD -Physical Therapy Work Phone: Start: 07-20-2024 End: 07-20-[address] Sowmya Cabrera MD -[facility] Work Phone: Start: 07-20-2024 End: 07-20-2024 ambulatory Sowmya Cabrera Facility:[facility] Start: 07-06-2024 End: 07-06-2024 [facility] Start: 04-19-2024 End: 04-19-[address] [facility] Start: 02-17-2024 ambulatory [facility] Start: 02-17-2024 End: 02-17-2024 [facility] Start: 10-21-2023 End: 10-21-[address] [facility] Work Phone: Start: 10-21-2023 End: 10-21-2023 Patient encounter [address] [facility] Start: 01-24-2023 End: 01-24-[address] [facility] Work Phone: Start: 01-24-2023 End: 01-24-[address] [facility]-Physical Therapy Start: 01-02-2023 End: 01-02-2023 Patient encounter [address] [facility]-Outpatient Bone Densitometry Start: 12-16-2022 End: 12-16-[address] [facility] Work Phone: Start: 12-16-2022 End: 12-16-2022 Patient encounter procedure [facility] Start: 06-24-2022 End: 06-24-[address] [facility] Work Phone: Start: 06-24-2022 End: 06-24-2022 Patient encounter procedure [facility] Start: 04-30-2022 End: 04-30-[address] Mann Cabrera Work Phone: [facility] Work Phone: Start: 04-30-2022 End: 04-30-[address] Mann Cabrera Work Phone: [facility] Start: 04-22-2022 End: 04-22-[address] Mann Cabrera Work Phone: [facility] Work Phone: Start: 04-22-2022 End: 04-22-[address] Mann Cabrera Work Phone: [facility] Start: 01-24-2022 Non-patient / Non-visit Dr. Zaynab Cabrera Work Phone: [facility] Start: 01-24-2022 End: 01-24-[address] Mann Cabrera Work Phone: [facility]-Cardiovascula r Services Start: 01-04-2022 End: 01-04-[address] [facility]-Laboratory, Specimen Start: 11-23-2021 End: 11-23-[address] [facility]-Laboratory, [facility] Start: 08-01-20[address] Patient [address] [facility]-Laboratory, [facility] Start: 09-15-2017 End: 09-15-2017 Ambulatory JUANITA COATS [facility] Start: 08-30-2017 End: 08-30-2017 Ambulatory PABLO HENDRICKSON (PA) [facility] Procedures Date Procedure Procedure Detail Performing [...] Activity Detail Author Start: 12-07-[address] [facility] Start: 12-05-2024 Ambulation therapy management [facility] Start: 12-05-[address] [facility] Start: 12-04-2024 Application of intermittent pneumatic compression device [facility] Start: 12-04-2024 Following clinical pathway protocol [facility] Start: 12-04-2024 Application of ice collar, cap or bag [facility] Start: 12-04-[address] [facility] Start: 12-04-2024 Laparoscopy Diagnostic Laparoscopy (Not Applicable) [facility] Start: 12-04-2024 Hospital admission, emergency, from emergency room, medical nature [facility] Start: 11-04-2024 Anesthesia hernia repair lower abdomen nos ANESTH REPAIR OF HERNIA [facility] Start: 11-04-2024 RPR AA HRN 1ST < 3 CM RDC RPR AA HRN 1ST < [address] [facility] Start: 11-04-[address] [facility] Start: 10-21-2024 Electrocardiographic procedure [facility] Patient referral [facility] Work Phone: Payers Date Payer Category Payer Self-pay [id number] 2021 Unknown [id number] ed [id number] 2016 Unknown [id number] 2012 Medicare [id number] Unknown [id number] 2.16.8 40.1.282915.3.579.2.462 Unknown [id number] 2.16.8 40.1.700229.3.579.2.462 Unknown [id number] 2.16.8 40.1.943338.3.579.2.462 Unknown [id number] 2.16.8 40.1.607571.3.579.2.462 Unknown [id number] 2.16.8 40.1.526419.3.579.2.462 Unknown [id number] 2.16.8 40.1.550156.3.579.2.462 Unknown [id number] 2.16.8 40.1.591860.3.579.2.462 Unknown [id number] 2.16.8 40.1.324469.3.579.2.462 Unknown [id number] 2.16.8 40.1.821426.3.579.2.462 Unknown [id number] 2.16.8 40.1.157003.3.579.2.462 Unknown [id number] 2.16.8 40.1.006184.3.579.2.462 Unknown [id number] 2.16.8 40.1.254571.3.579.2.462 Unknown [id number] 2.16.8 40.1.997057.3.579.2.462 Unknown [id number] 2.16.8 40.1.836476.3.579.2.462 Unknown [id number] 2.16.8 40.1.633777.3.579.2.462 Unknown [id number] 2.16.8 40.1.696787.3.579.2.462 Unknown [id number] 2.16.8 40.1.337197.3.579.2.462 Social History Date Type Detail Facility Tobacco smoking status NHIS Unknown if ever smoked [facility] Work Phone: Start: 1945 Sex Assigned At Female [facility] Start: 10-21-2024 End: 12-04-2024 Tobacco smoking status NHIS Never smoked tobacco (finding) [facility] Start: 11-04-2024 End: 12-07-2024 Sex Female (finding) [facility] NEGATED: Highlighted row Not [facility] Medical Equipment Procedure Code Equipment Code Equipment Origin al Text Equipment Identifier Dates Repair, hernia, incisional, with mesh insertion MESH,VENTLEX ST SM 4.3CM FDA Start: 11-04-2024 Repair, hernia, incisional, with mesh insertion MESH,VENTLEX ST SM 4.3CM FDA Start: 11-04-2024 Repair, hernia, incisional, with mesh insertion MESH,VENTLEX ST SM 4.3CM FDA Start: 11-04-2024 Laparoscopy, diagnostic Surgical staple loading unit, cutting ()[id number] FDA Start: 12-04-2024 Laparoscopy, diagnostic Open-surgery manual linear cutting stapler, single-use ()[id number] FDA Start: 12-04-2024 Goals Date Patient Goal Desired Activity /State Functional Status Date Assessment Result Facility 12-07-2024 Functional status [place] [facility] Work Phone: Mental Status Date Assessment Result Facility 12-07-2024 Cognitive function Voice/Name [facility] Work Phone: 11-04-2024 Cognitive function Voice/Name;Touch/Shaki ng [facility] Work Phone: Clinical Notes 01-24-2023 to 12-07-2024 Note Date & Type Note Facility 12-07-[address] [facility] 12-07-2024 Discharge summary Note Date/Time December 07, 2024 2:30pm [facility] Medical Records Department [address] [place] [address] Discharge Summary 12/07/24 1100 MR#: [id number] Acct: [id number] Name: GERMANIA DONIS Rep #:[id number] : 1945 79 From: Eleonora CHERRYC PCP: Dr. Sowmya Cabrera MD Status :ADM [place] [facility] [id number] Providers Date of Admission: 12/04/24 Primary Care [...] mcg capsule 100 mcg PO DAILY 09/27/24 gwoxaoka-tlokerwe-wgxwb acid 240 mcg-vit K1 150 mcg-herb 357 tablet (Alive Women's 50 Plus Ultra Multivitamin) 1 tab PO DAILY 09/27/24 vitamins A,C,U-kjuh-ibkmyh 4,296 mcg-226 mg-90 mg capsule (PreserVision AREDS) [...] (Auto) 70.8 H, Lymph % (Auto) 16.5 L,[place] % (Auto) 8.6, Eos % (Auto) 2.6, [...] to schedule a 2 week follow-up at [phone], option #2 Meaningful Use Info Meaningful Use [...] cereals, and grains Eat: White breads, waffles, [place] toast, plain white rolls, or white bread [...] types of beans Potatoes with skin Peas Speed Cabbage, broccoli, cauliflower, [place] sprouts, and greens Sauerkraut Onions Fruits and [...] Self Care Charges/Coding Visit Charges Inpatient E&M: 52569 Disch Hosp (post-op; no charge) 12/07/24 1430 <Electronically signed by Eleonora DUONG PA-C> Cosigner Signature (if applicable): CC: BOOKER Montaño; Dr. Sowmya Cabrera MD~ Signed [facility] Work Phone: 1(803) 289-640304-15-2025 Progress note Author Eleonora Montaño [facility] Note Date/Time December 07, 2024 9:[address] [facility] Medical Records Department [address] [place] [address] Progress Note - Surgery 12/07/2446 MR#: [id number] Acct: [id number] Name: GERMANIA DONIS Rep #:[id number] : 1945 79 From: Eleonora DUONG PA-C PCP: Dr. Sowmya Cabrera MD Status :ADM IN Location: [place] [address] Subjective Subjective Patient evaluated resting comfortably in [...] (Auto) 70.8 H, Lymph % (Auto) 16.5 L,[place] % (Auto) 8.6, Eos % (Auto) 2.6, [...] later today Charges/Coding Visit Charges Inpatient E&M: 44987 Subs Hosp L1 (no charge; post-op) 12/07/24 0903 <Electronically signed by Eleonora DUONG PA-C> Cosigner Signature (if applicable): CC: ~ Signed [facility] Work Phone: 1(768) 553-637204-15-2025 [facility] Medical Records Department [address] [place] [address] Discharge Summary 12/07/24 1100 MR#: [id number] Acct: [id number] Name: GERMANIA DONIS Rep #: [id number] : 1945 79 From: Eleonora DUONG PA-C PCP: Dr. Sowmya Cabrera MD Status:ADM [place] [facility] [id number] Providers Date of Admission: 12/04/24 Primary Care [...] mcg capsule 100 mcg PO DAILY 09/27/24 gjehpzit-dxtoouub-gbvzf acid 240 mcg-vit K1 150 mcg-herb 357 tablet (Alive Women's 50 Plus Ultra Multivitamin) 1 tab PO DAILY 09/27/24 vitamins A,C,A-cpmk-omozhe 4,296 mcg-226 mg-90 mg capsule (PreserVision AREDS) [...] 70.8 H, Lymph % (Auto) 16.5 L, [place] % (Auto) 8.6, Eos % (Auto) 2.6, [...] to schedule a 2 week follow-up at [phone], option #2 Meaningful Use Info Meaningful Use [...] meet guidelines. HIGH DO (more content not included)...[facility]04-15-2025 Progress note [facility] Medical Records Department [address] [place] [address] Progress Note - Surgery 12/07/24 0846 MR#: [id number] Acct: [id number] Name: GERMANIA DONIS Rep #:[id number] : 1945 79 From: Eleonora DUONG PA-C PCP: Dr. Sowmya Cabrera MD Status :ADM IN Location: GA3 AV191-9 Subjective Subjective Patient evaluated resting comfortably in [...] (Auto) 70.8 H, Lymph % (Auto) 16.5 L,[place] % (Auto) 8.6, Eos % (Auto) 2.6, [...] later today Charges/Coding Visit Charges Inpatient E&M: 42975 Subs Hosp L1 (no charge; post-op) 12/07/24 0903 Cosigner Signature (if applicable): CC: ~ Signed [facility]04-14-2025 Procedure note [facility] Medical Records Department [address] [place] [address] Operative Report 12/04/24 1434 MR#: [id number] Acct: [id number] Name: GERMANIA DONIS Rep #:[id number] : 1945 79 From: Darrick Lara PCP: Dr. 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 Using atraumatic graspers and a suction furniture manager device I bluntly teased a perforated small [...] field labeled small bowel. Then a standard ozhj-xo-naas functional end-to-end small bowel anastomosis was created [...] remaining two 5 mm ports. A 15 [place] round Mauricio drain was fed into the [...] Cabrera MD; Dr. Darrick Light MD~ Signed [facility]04-14-2025 Progress note Author Eleonora Montaño [facility] Note Date/Time December 06, 2024 9:[address] [facility] Medical Records Department [address] [address] Progress Note - Surgery 12/06/24 0838 MR#: [id number] Acct: [id number] Name: GERMANIA DONIS Rep #:[id number] : 1945 79 From: Eleonora DUONG PA-C PCP: Dr. Sowmya Cabrera MD Status :ADM IN Location: MS3 AX145-0 Subjective Subjective Patient evaluated resting comfortably in [...] (Auto) 78.8 H, Lymph % (Auto) 13.8 L,[place] % (Auto) 6.4, Eos % (Auto) 0.4, [...] this patient Charges/Coding Visit Charges Inpatient E&M: 99648 Subs Hosp L1 (post-op) 12/06/24928 <Electronically signed by Eleonora DUONG PA-C> Cosigner Signature (if applicable): CC: ~ Signed [facility] Work Phone: 1(685) 596-419204-14-2025 Progress note [facility] Medical Records Department [address] [place] [address] Progress Note - Surgery 12/06/24 0838 MR#: [id number] Acct: [id number] Name: GERMANIA DONIS Rep #:[id number] : 1945 79 From: Eleonora DUONG PA-C PCP: Dr. Sowmya Cabrera MD Status :ADM IN Location: [place] [address] Subjective Subjective Patient evaluated resting comfortably in [...] (Auto) 78.8 H, Lymph % (Auto) 13.8 L,[place] % (Auto) 6.4, Eos % (Auto) 0.4, [...] this patient Charges/Coding Visit Charges Inpatient E&M: 41878 Subs Hosp L1 (post-op) 12/06/24 0929 Cosigner Signature (if applicable): CC: ~ Signed [facility]04-13-2025 Progress note Author Darrick Light [facility] Note Date/Time December 05, 2024 10: 35am [facility] Medical Records Department [address] [place] [address] Progress Note - Surgery 12/05/24820 MR#: [id number] Acct: [id number] Name: GERMANIA DONIS Rep #:[id number] : 1945 79 From: Darrick Lara PCP: Dr. Sowmya Cabrera MD Status :ADM IN [facility] Subject[facility] Subjective Patient seen and evaluated during [...] Sl. Cloudy, Urine pH 6.0, Ur Specific [place] 1.010, Urine Protein 15 H, Urine Glucose [...] 87.8 H, Lymph % (Auto) 5.8 L, [place] % (Auto) 5.7, Eos % (Auto) 0.0, [...] at 10:34 a.m. on 12/04/2024. Reading Location: [id number] Physical Exam Const oriented x3 Resp normal [...] Light MD General Surgery Endocrine Surgery Pager: [facility] [address] [place] [address], Outpatient [place], [address] [place] [address] Office: [phone] (2) Pneumoperitoneum: Charges/Coding Visit Charges Inpatient E&M: 30837 Subs Hosp L2 12/05/24 1035 <Electronically signed by Darrick Light MD> Cosigner Signature (if applicable): CC: ~ Signed [facility] Work Phone: 1(574) 282-244604-13-2025 Progress note [facility] Medical Records Department [address] [place] [address] Progress Note - Surgery 12/05/24 08 MR#: [id number] Acct: [id number] Name: GERMANIA DONIS Rep #:[id number] : 1945 79 From: Darrick Lara PCP: Dr. Sowmya Cabrera MD Status :ADM IN Location: [place] [address]-1 Subjective Subjective Patient seen and evaluated during [...] Sl. Cloudy, Urine pH 6.0, Ur Specific [place] 1.010, Urine Protein 15 H, Urine Glucose [...] 87.8 H, Lymph % (Auto) 5.8 L, [place] % (Auto) 5.7, Eos % (Auto) 0.0, [...] at 10:34 a.m. on 12/04/2024. Reading Location: [facility] Physical Exam Const oriented x3 Resp normal [...] Light MD General Surgery Endocrine Surgery Pager: [facility] [address] [place] [address], [address] [place] [address] Office: [phone] (2) Pneumoperitoneum: Charges/Coding Visit Charges Inpatient E&M: 03334 Subs Hosp L2 12/05/24 1035 Cosigner Signature (if applicable): CC: ~ Signed [facility]04-12-2025 Discharge summary Author Pardeep Naranjo [facility] Note Date/Time December 04, 2024 3:2 4pm [facility] Medical Records Department [address] [place], [place] [id number] Emergency Department Summary 12/04/24 MR#: [id number] Acct: [id number] Name: JEWELSGERMANIA BAUMANN Osmel Rep #:[id number] : 1945 79 From: Pardeep Davila PCP: Dr. Sowmya Cabrera MD Status :ADM IN Location: MS3 UH414-2 HPI HPI - GI History of Present [...] followed up and things were progressing normally. [facility] Medical History Umbilical hernia Wears glasses [...] 100 mcg PO QDAY 09/27/24 11/03/24 History cqamulaj-tzzxahic-ltmru acid 240 1 tab PO DAILY 11/03/24 History mcg-vit K1 150 mcg-herb 357 tablet (Alive Women's 50 Plus Ultra Multivitamin) vitamins A,C,K-vxmm-hyyelm 4,296 1 cap PO BID 09/27/24 11/03/24 [...] 83.2 H Lymph % (Auto) 9.5 L [place] % (Auto) 6.5 Eos % (Auto) 0.3 [...] Sl. Cloudy Urine pH 6.0 Ur Specific [place] 1.010 Urine Protein 15 H Urine Glucose [...] at 10:34 a.m. on 12/04/2024. Reading Location: [facility] Management Discussion w/another healthcare provider: Drum Tester (Dr Light) and Radiologist Discharge Plan Dx/Rx/DC Orders Clinical Impression: Perforated small intestine, Intra-abdominal abscess, Pneumoperitoneum, Abdominal pain, acute Disposition Disposition: Acute Care Hospital [facility] What to do if you have Problems For any increased pain, shortness of breath, bleeding, nausea or vomiting, chestpain, or any unexpected problems, contact your Primary Care Provider. Call [facility] ([phone]) or report to the closest Emergency Room. Call 911 if necessary. 12/04/24 1524 <Electronically signed by Pardeep Naranjo DO> Cosigner Signature (if applicable): CC: Dr. Sowmya Cabrera MD ~ Signed [facility] Work Phone: 1(375) 720-113404-12-2025 Consult note Author Pardeep Pierre [facility] Note Date/Time December 04, 2024 3:[address] [facility] Medical Records Department [address] [place] [address] Anesthesia Postop Eval II 12/04/24 1459 MR#: [id number] Acct: [id number] Name: GERMANIA DONIS Rep #:[id number] : 1945 79 From: Pardeep Lara PCP: Dr. Sowmya Cabrera MD Status :ADM IN Y Race: C [place] [facility] MS317 -1 Anesthesia Postop Eval I Sum [...] MD Cosigner Signature: Date CC: ~ Signed [facility] Work Phone: 1(173) 856-690304-12-2025 Consult note Author Pardeep Pierre [facility] Note Date/Time December 04, 2024 2:[address] [facility] Medical Records Department [address] [place] [address] Anesthesia Postop Eval I 12/04/241456 MR#: [id number] Acct: [id number] Name: GERMANIA DONIS Rep #:[id number] : 1945 79 From: Pardeep Lara PCP: Dr. Sowmya Cabrera MD Status :ADM IN Y Race: C Location: [place] [address] Anesthesia: Postop Eval I Current Vital Signs [...] MD Cosign Signature: Date CC: ~ Signed [facility] Work Phone: [phone] 670-332504-12-2025 Discharge summary [facility] Medical Records Department [address] [place] [address] Emergency Department Summary 12/04/24 MR#: [id number] Acct: [id number] Name: GERMANIA DONIS Rep #:[id number] : 1945 79 From: Pardeep Davila PCP: Dr. Sowmya Cabrera MD Status :ADM IN Location: MS3 EJ433-6 HPI HPI - GI History of Present [...] followed up and things were progressing normally. [facility] Medical History Umbilical hernia Wears glasses [...] 100 mcg PO QDAY 09/27/24 11/03/24 History tnseomog-jonpmukm-fycrb acid 240 1 tab PO DAILY 11/03/24 History mcg-vit K1 150 mcg-herb 357 tablet (Alive Women's 50 Plus Ultra Multivitamin) vitamins A,C,K-pzzj-jpbixr 4,296 1 cap PO BID 09/27/24 11/03/24 [...] 83.2 H Lymph % (Auto) 9.5 L [place] % (Auto) 6.5 Eos % (Auto) 0.3 [...] Sl. Cloudy Urine pH 6.0 Ur Specific [place] 1.010 Urine Protein 15 H Urine Glucose [...] at 10:34 a.m. on 12/04/2024. Reading Location: [id number] Management Discussion w/another healthcare provider: Drum Tester (Dr Light) and Radiologist Discharge Plan Dx/Rx/DC Orders Clinical Impression: Perforated small intestine, Intra-abdominal abscess, Pneumoperitoneum, Abdominal pain, acute Disposition Disposition: Acute Care Hospital [facility] What to do if you have Problems For any increased pain, shortness of breath, bleeding, nausea or vomiting, chestpain, or any unexpected problems, contact your Primary Care Provider. Call [facility] ([phone]) or report tothe closest Emergency Room. Call 911 if necessary. 12/04/24 1524 Cosigner Signature (if applicable): CC: Dr. Sowmya Cabrera MD ~ Signed [facility]04-12-[address] [facility] Medical Records Department [address] [place] [address] Anesthesia Postop Eval II 12/04/24 1459 MR#: [id number] Acct: [id number] Name: GERMANIA DONIS Rep #:[id number] : 1945 79 From: Pardeep Lara PCP: [...] MD Cosigner Signature: Date CC: ~ Signed [facility]04-12-[address] [facility] Medical Records Department [address] [place] [address] Anesthesia Postop Eval I 12/04/24 1457 MR#: [id number] Acct: [id number] Name: GERMANIA DONIS Rep #:[id number] : 1945 79 From: Pardeep Lara PCP: Dr. Sowmya Cabrera MD Status :ADM IN Y Race: C [place] [facility] MS317 -1 Anesthesia: Postop Eval I Current [...] MD Cosigner Signature: Date CC: ~ Signed [facility]04-12-2025 Consult note Author Pardeep Pierre [facility] Note Date/Time December 04, 2024 12: 37pm [facility] Medical Records Department [address] [place] [address] Pre-Anesthesia Evaluation 12/04/24 1205 MR#: [id number] Acct: [id number] Name: GERMANIA DONIS Rep #:[id number] : 1945 79 From: Pardeep Lara PCP: Dr. Sowmya Cabrera MD Status :REG SD Y Race: C Location: [place] [address] ASA Classification* ASA Classification ASA Classification: 3 [...] Bowl removal Anesthesia History Anesthesia History - business analytics manager: Anesthesia History - business analytics manager Hx Hospitalization No 10/21/24 10:11 Any Problems [...] Any additional information?: No PONV PONV - business analytics manager: PONV - business analytics manager Female HX of Motion Sickness HX of N/V After Surgery Non-Smoker Duration of Surgery greater than 60 minutes Number of Risk Factors PONV Score Any additional information?: No Height & Weight Height & Weight: Anesthesia: Height & Weight Height 5 ft 2 in 12/04/24 07:33 Weight: 65.771 kg 12/04/24 07:33 Body Mass Index (BMI) 26.5 12/04/24 07:33 Respiratory Assessment Respiratory Assessment - business analytics manager: Respiratory Tract Infection Hx - business analytics manager Hx Respiratory Tract Infection No 10/21/24 10:11 STOP Sleep Apnea STOP Sleep Apnea - business analytics manager: STOP Sleep Apnea - business analytics manager Hx Hypertension No 10/21/24 10:11 Hx Sleep [...] Tobacco Use History Tobacco Use History - business analytics manager: Tobacco Use History - business analytics manager Tobacco Use Smoking Status Never smoker 12/04/24 07:55 Hx Tobacco Use No 10/21/24 10:11 Years Smoking Packs Smoked per Day Smoking Cessation Date was within the last 15 years Hx Smoking Cessation Date Hx Smoking Cessation Counseling Hematologic Medial History Hematologic Hx - business analytics manager: 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 Specify any problems Hx of Preganancy in last 3 Months Nurse Filling Out Transfusion & Questions: Date: Time: Patient unable to answer at this time (ie. confused, unrespo /Reproduction History /Reproductive History - business analytics manager: /Reproductive Hx- business analytics manager Hx Now Gestational Age (in weeks): EDC: Hx Hx Para Hx Section SAB No 10/21/24 10:11 [facility] Medical History Umbilical hernia Wears [...] 100 mcg PO DAILY 5 12/03/24 History xmlehqjo-rncezdpf-jnhfa acid 240 1 tab PO DAILY 12/03/24 History mcg-vit K1 150 mcg-herb 357 tablet (Alive Women's 50 Plus Ultra Multivitamin) vitamins A,C,M-ffls-dgdcsf 4,296 1 cap PO BID 09/27/24 12/03/24 [...] MD Cosigner Signature: Date CC: ~ Signed [facility] Work Phone: 1(240) 769-401304-12-2025 History and physical note Author Darrick Light [facility] Note Date/Time December 04, 2024 11: 41am [facility] Medical Records Department [address] [place] [address] History & Physical Exam 12/04/24 1125 MR#: [id number] Acct: [id number] Name: GERMANIA DONIS Rep #:[id number] : 1945 79 From: Darrick Lara PCP: Dr. Sowmya Cabrera MD Status :REG ER Location: ED HPI - General General Date of Admission: 12/04/24 Chief Complaint: Acute onset abdominal pain and anorexia HPI Narrative GERMANIA DONIS, is a 79 F who presents with her to [facility] due to complaints of acute onset abdominal [...] tubal ligation procedure approximately 40 years ago. [facility] Medical History Umbilical hernia Wears [...] 100 mcg PO QDAY 09/27/24 11/03/24 History lxhkagrm-cbfgpqkg-phbku acid 240 1 tab PO DAILY 11/03/24 History mcg-vit K1 150 mcg-herb 357 tablet (Alive Women's 50 Plus Ultra Multivitamin) vitamins A,C,Z-swvs-ivicuq 4,296 1 cap PO BID 09/27/24 11/03/24 [...] 83.2 H, Lymph % (Auto) 9.5 L, [place] % (Auto) 6.5, Eos % (Auto) 0.3, [...] Sl. Cloudy, Urine pH 6.0, Ur Specific [place] 1.010, Urine Protein 15 H, Urine Glucose [...] at 10:34 a.m. on 12/04/2024. Reading Location: [id number] Assessment & Plan Assessment/Plan (1) Perforated small [...] Light MD General Surgery Endocrine Surgery Pager: [facility] [address] [place] [address], Outpatient [address], [address] [place] [address] Office: [phone] (2) Pneumoperitoneum: Charges/Coding Visit Charges Inpatient E&M: 30453 Init Hosp L2 12/04/24 1141 <Electronically signed by Darrick Light MD> Cosigner Signature (if applicable): CC: Dr. Sowmya Cabrera MD; Dr. Darrick Light MD~ Signed [facility] Work Phone: 1(199) 810-694204-12-[address] [facility] Medical Records Department [address] [place] [address] Pre-Anesthesia Evaluation 12/04/24 1205 MR#: [id number] Acct: [id number] Name: GERMANIA DONIS Rep #:[id number] : 1945 79 From: Pardeep Lara PCP: Dr. Sowmya Cabrera MD Status :REG [facility] Y Race: C Location: [place] [address] ASA Classification* ASA Classification ASA Classification: 3 [...] Bowl removal Anesthesia History Anesthesia History - business analytics manager: Anesthesia History - business analytics manager Hx Hospitalization No 10/21/24 10:11 Any Problems [...] Any additional information?: No PONV PONV - business analytics manager: PONV - business analytics manager Female HX of Motion Sickness HX of N/V After Surgery Non-Smoker Duration of Surgery greater than 60 minutes Number of Risk Factors PONV Score Any additional information?: No Height & Weight Height & Weight: Anesthesia: Height & Weight Height 5 ft 2 in 12/04/24 07:33 Weight: 65.771 kg 12/04/24 07:33 Body Mass Index (BMI) 26.5 12/04/24 07:33 Respiratory Assessment Respiratory Assessment - business analytics manager: Respiratory Tract Infection Hx - business analytics manager Hx Respiratory Tract Infection No 10/21/24 10:11 STOP Sleep Apnea STOP Sleep Apnea - business analytics manager: STOP Sleep Apnea - business analytics manager Hx Hypertension No 10/21/24 10:11 Hx Sleep [...] Tobacco Use History Tobacco Use History - business analytics manager: Tobacco Use History - business analytics manager Tobacco Use Smoking Status Never smoker 12/04/24 07:55 Hx Tobacco Use No 10/21/24 10:11 Years Smoking Packs Smoked per Day Smoking Cessation Date was within the last 15 years Hx Smoking Cessation Date Hx Smoking Cessation Counseling Hematologic Medial History Hematologic Hx - business analytics manager: 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 Specify any problems Hx of Preganancy in last 3 Months Nurse Filling Out Transfusion & Questions: Date: Time: Patient unable to answer at this time (ie. confused, unrespo /Reproduction History /Reproductive History - business analytics manager: /Reproductive Hx- business analytics manager Hx Now Gestational Age (in weeks): EDC: [...] 100 mcg PO DAILY 5 12/03/24 History pxsjgiun-yhaqeauu-cyytk acid 240 1 tab PO DAILY 12/03/24 History mcg-vit K1 150 mcg-herb 357 tablet (Alive Women's 50 Plus Ultra Multivitamin) vitamins A,C,E-srum-ehxyos 4,296 1 cap PO BID 09/27/24 12/03/24 [...] MD Cosigner Signature: Date CC: ~ Signed [facility]04-12-2025 History and physical note [facility] Medical Records Department [address] [place] [address] History & Physical Exam 12/04/24 1125 MR#: [id number] Acct: [id number] Name: GERMANIA DONIS Rep #:[id number] : 1945 79 From: Darrick Lara PCP: Dr. Sowmya Cabrera MD Status :REG ER Location: ED HPI - General General Date of Admission: 12/04/24 Chief Complaint: Acute onset abdominal pain and anorexia HPI Narrative GERMANIA DONIS, is a 79 F who presents with her to [facility] due to complaints of acute onset abdominal [...] tubal ligation procedure approximately 40 years ago. [facility] Medical History Umbilical hernia Wears [...] 100 mcg PO QDAY 09/27/24 11/03/24 History utfivnph-zfllfsdk-rdkur acid 240 1 tab PO DAILY 11/03/24 History mcg-vit K1 150 mcg-herb 357 tablet (Alive Women's 50 Plus Ultra Multivitamin) vitamins A,C,T-ylfa-ukqkcg 4,296 1 cap PO BID 09/27/24 11/03/24 [...] 83.2 H, Lymph % (Auto) 9.5 L, [place] % (Auto) 6.5, Eos % (Auto) 0.3, [...] Sl. Cloudy, Urine pH 6.0, Ur Specific [place] 1.010, Urine Protein 15 H, Urine Glucose [...] at 10:34 a.m. on 12/04/2024. Reading Location: [id number] Assessment & Plan Assessment/Plan (1) Perforated small [...] Light MD General Surgery Endocrine Surgery Pager: [facility] [address] [place] [address], [address] [place] [address] Office: [phone] (2) Pneumoperitoneum: Charges/Coding Visit Charges Inpatient E&M: 40045 Init Hosp L2 12/04/24 1141 Cosigner Signature (if applicable): CC: Dr. Sowmya Cabrera MD; Dr. Darrick Light MD~ Signed [facility]04-12-2025 [facility] Medical Records Department [address] [place] [address] History Physical Exam 12/04/24 1125 MR#: [id number] Acct: [id number] Name: GERMANIA DONIS Rep #: [id number] : 1945 79 From: Darrick Light MD PCP: Dr. Sowmya Cabrera MD Status:REG ER Location: ED HPI - General General Date of Admission: 12/04/24 Chief Complaint: Acute onset abdominal pain and anorexia HPI Narrative GERMANIA DONIS, is a 79 F who presents with her to [facility] due to complaints of acute onset abdominal [...] tubal ligation procedure approximately 40 years ago. [facility] Medical History Umbilical hernia Wears [...] 100 mcg PO QDAY 09/27/24 11/03/24 History cwcsckti-xxakaaor-uoejh acid 240 1 tab PO DAILY 09/27/24 11/03/24 H istory mcg-vit K1 150 mcg-herb 357 tablet (Alive Women's 50 Plus Ultra Multivitamin) vitamins A,C,W-cxmf-boodnl 4,296 1 cap PO BID 09/27/24 11/03/24 [...] 83.2 H, Lymph % (Auto) 9.5 L, [place] % (Auto) 6.5, Eos % (Auto) 0.3, [...] Bilirubin 0.59, Direct Biliru (more content not included)...[facility]04-12-2025 Radiology Diagnostic study note [facility] [address] [place] [address] Abdomen/Pelvis WITH Contrast MR#: [id number] Acct: [id number] Name: GERMANIA DONIS Rep #: [id number] : 1945 F 79 From: Lorena Stevens MD PCP: Dr. Sowmya Cabrera MD Status: REG ER Study:Abdomen/Pelvis WITH Contrast Date of Ex am: 12/04/24 Exam# [id number] Ordering Dr: Jane Naranjo DO PROCEDURE: ABDOMEN/PELVIS [...] at 10:34 a.m. on 12/04/2024. Reading Location: [facility] CC: Dr. Sowmya Cabrera MD; Dr. Pardeep Naranjo, DO ~ Pilot Manager: Signed [facility]03-13-2025 Consult note Author Cyrus Martinezorestes [facility] Note Date/Time November 04, 2024 9:[address] [facility] Medical Records Department [address] [place] [address] Anesthesia Postop Eval I 11/04/24 0833 MR#: [id number] Acct: [id number] Name: GERMANIA DONIS Rep #:[id number] : 1945 79 From: Cyrus davila CRNA PCP: Dr. Sowmya Cabrera MD Status :REG SDC Y Race: C Location: [place] [address] Anesthesia: Postop Eval I Current Vital Signs [...] ZONIA Cosigner Signature: Date CC: ~ Signed [facility] Work Phone: 1(945) 923-101103-13-2025 Discharge summary Author Shelly Leonard [facility] Note Date/Time November 04, 2024 8:[address] [facility] Medical Records Department [address] [place] [address] Instructions for Home/Discharge Instructions 11/04/24 0808 MR#: [id number] Acct: [id number] Name: GERMANIA DONIS Rep #:[id number] : 1945 79 From: Shelly Leonard MD PCP: Dr. Sowmya Cabrera MD Status :REG [facility] Discharge Instructions Diet Discharge Diet: Light diet [...] weeks; after 5 PM and on call [phone] with any concerns. Test Results: Test results [...] the other half the bottle. Print Language: [place] Discharge Orders/Prescriptions Prescriptions: New oxycodone 5 mg [...] CC: Dr. Sowmya Cabrera MD ~ Signed [facility] Work Phone: 1(281) 966-379303-13-[address] [facility] Medical Records Department [address] [place] [address] Anesthesia Postop Eval I 11/04/24 0833 MR#: [id number] Acct: [id number] Name: GERMANIA DONIS Rep #:[id number] : 1945 79 From: Cyrus davila CRNA PCP: Dr. Sowmya Cabrera MD Status :REG [facility] Y Race: C Location: [place] [address] Anesthesia: Postop Eval I Current Vital Signs [...] Eval 1 completed: Yes 11/04/24 0940 ero BUSINESS ASST> Date _ Cyrus Jain Signature: Date CC: ~ Signed [facility]03-13-2025 History and physical note Author Shelly Leonard [facility] Note Date/Time November 04, 2024 7:[address] [facility] Medical Records Department [address] [place] [address] H&P Exam - Surgical 11/04/24 0717 MR#: [id number] Acct: [id number] Name: GERMANIA DONIS Rep #:[id number] : 1945 79 From: Shelly Leonard MD PCP: Dr. Sowmya Cabrera MD Status :[facility] Location: [place] [address] HPI - General General Date of Service: [...] it repaired. Patient denies any abdominal surgeries. [facility] Medical History Wears glasses Wears partial [...] 100 mcg PO QDAY 09/27/24 11/03/24 History uztwamxg-mklcoyoh-nzxju acid 240 1 tab PO DAILY 11/03/24 History mcg-vit K1 150 mcg-herb 357 tablet (Alive Women's 50 Plus Ultra Multivitamin) vitamins A,C,J-kwwm-clezws 4,296 1 cap PO BID 09/27/24 11/03/24 [...] further questions time. Shelly Leonard M.D. Pager: [phone] [facility] [address] [place] [address], [facility], [address] [place] [address] Office: [phone] 11/04/24 0719 <Electronically signed by Shelly Leonard MD> Cosigner Signature (if applicable): CC: Dr. Sowmya Cabrera MD; Dr. Shelly Leonard MD~ Signed [facility] Work Phone: 1(880) 794-543603-13-2025 Consult note Author Man Link [facility] Note Date/Time November 04, 2024 6:[address] [facility] Medical Records Department [address] [place] [address] Pre-Anesthesia Evaluation 11/04/24 0637 MR#: [id number] Acct: [id number] Name: GERMANIA DONIS Rep #:[id number] : 1945 79 From: Man Link MD PCP: Dr. Sowmya Cabrera MD Status :REG SDC Y Race: C Location: [place] [address] ASA Classification* ASA Classification ASA Classification: 3 [...] poss Mesh Anesthesia History Anesthesia History - business analytics manager: Anesthesia History - business analytics manager Hx Hospitalization No 10/21/24 10:11 Any Problems [...] take am of surgery PONV PONV - business analytics manager: PONV - business analytics manager Female Yes 10/21/24 10:11 HX of Motion [...] 11/04/24 06:19 Respiratory Assessment Respiratory Assessment - business analytics manager: Respiratory Tract Infection Hx - business analytics manager Hx Respiratory Tract Infection No 10/21/24 10:11 STOP Sleep Apnea STOP Sleep Apnea - business analytics manager: STOP Sleep Apnea - business analytics manager Hx Hypertension No 10/21/24 10:11 Hx Sleep [...] Tobacco Use History Tobacco Use History - business analytics manager: Tobacco Use History - business analytics manager Tobacco Use Smoking Status Never smoker 10/21/24 10:11 Hx Tobacco Use No 10/21/24 10:11 Years Smoking Packs Smoked per Day Smoking Cessation Date was within the last 15 years Hx Smoking Cessation Date Hx Smoking Cessation Counseling Hematologic Medial History Hematologic Hx - business analytics manager: 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 Hx of Blood Transfusion No 10/21/24 10:11 [...] confused, unrespo /Reproduction History /Reproductive History - business analytics manager: /Reproductive Hx- business analytics manager Hx Now No 10/21/24 10:11 Gestational Age [...] 19:19 15 mls/hr .Q48H ESTEPHANIE Administration Protocol [facility] Medical History Wears glasses Wears partial [...] 100 mcg PO QDAY 09/27/24 11/03/24 History twpdtpar-wqnnkolt-ywwms acid 240 1 tab PO DAILY 11/03/24 History mcg-vit K1 150 mcg-herb 357 tablet (Alive Women's 50 Plus Ultra Multivitamin) vitamins A,C,R-rxbf-rreyhg 4,296 1 cap PO BID 09/27/24 11/03/24 [...] MD Cosigner Signature: Date CC: ~ Signed [facility] Work Phone: 1(993) 994-469803-13-2025 Procedure note [facility] Medical Records Department [address] [place] [address] Operative Report 11/04/24 0805 MR#: [id number] Acct: [id number] Name: GERMANIA DONIS Rep #:[id number] : 1945 79 From: Shelly Leonard MD PCP: Dr. Sowmya Cabrera MD Status :[facility] Location: [place] [address] Operative Report (Standard) Operative Information Date of Procedure: 11/04/24 Pre-Operative Diagnosis: Umbilical hernia Post-Operative Diagnosis: Same Surgery/Procedure Performed: Umbilical hernia repair with mesh steam pan sponger: Yes Data Analytics Chief Scientist: Timoteo Ruiz Tasks completed by export sales assistant: Opening & closing Type of Anesthesia: [...] hernia patch 4.3 cm in diameter, Lot [id number] ref [id number] Special Medications: Ancef 2 g IV x [...] suture.The hernia defect was closed with a oydjxk-uh-eqlms 0 Nurolon. The wound was irrigated with [...] Cabrera MD; Dr. Shelly Leonard MD~ Signed [facility]03-13-2025 Discharge summary [facility] Medical Records Department [address] [place] [address] Instructions for Home/Discharge Instructions 11/04/2408 MR#: [id number] Acct: [id number] Name: GERMANIA DONIS Rep #:[id number] : 1945 79 From: Shelly Leonard MD PCP: Dr. Sowmya Cabrera MD Status :REG [facility] Discharge Instructions Diet Discharge Diet: Light diet [...] weeks; after 5 PM and on call [phone] with any concerns. Test Results: Test results [...] the other half the bottle. Print Language: [place] Discharge Orders/Prescriptions Prescriptions: New oxycodone 5 mg [...] CC: Dr. Sowmya Cabrera MD ~ Signed [facility]03-13-2025 [facility] [address] [place] [address] H&P Exam - Surgical 11/04/24 0717 MR#: [id number] Acct: [id number] Name: GERMANIA DONIS Rep #:[id number] : 1945 79 From: Shelly Leonard MD PCP: Dr. Sowmya Cabrera MD Status :[facility] Location: [place] [address] HPI - General General Date of Service: [...] having it repaired. Patientdenies any abdominal surgeries. [facility] Medical History Wears glasses Wears partial [...] 100 mcg PO QDAY 09/27/24 11/03/24 History buhsacxs-npupyguu-ukwol acid 240 1 tab PO DAILY 11/03/24 History mcg-vit K1 150 mcg-herb 357 tablet (Alive Women's 50 Plus Ultra Multivitamin) vitamins A,C,Z-ifzs-ujlffu 4,296 1 cap PO BID 09/27/24 11/03/24 [...] further questions time. Shelly Leonard M.D. Pager: [phone] [facility] [address] [place] [address], [facility], [address] [place] [address] Office: [phone] 11/04/24 0719 Cosigner Signature (if applicable): CC: Dr. Sowmya Cabrera MD; Dr. Shelly Leonard MD~ Signed [facility]03-13-[address] [facility] Medical Records Department [address] [place] [address] Pre-Anesthesia Evaluation 11/04/24 0637 MR#: [id number] Acct: [id number] Name: GERMANIA DONIS Rep #:[id number] : 1945 79 From: Man Link MD PCP: Dr. Sowmya Cabrera MD Status :REG SDC Y Race: C Location: [place] [address] ASA Classification* ASA Classification ASA Classification: 3 [...] poss Mesh Anesthesia History Anesthesia History - business analytics manager: Anesthesia History - business analytics manager Hx Hospitalization No 10/21/24 10:11 Any Problems [...] take am of surgery PONV PONV - business analytics manager: PONV - business analytics manager Female Yes 10/21/24 10:11 HX of Motion [...] 11/04/24 06:19 Respiratory Assessment Respiratory Assessment - business analytics manager: Respiratory Tract Infection Hx - business analytics manager Hx Respiratory Tract Infection No 10/21/24 10:11 STOP Sleep Apnea STOP Sleep Apnea - business analytics manager: STOP Sleep Apnea - business analytics manager Hx Hypertension No 10/21/24 10:11 Hx Sleep [...] Tobacco Use History Tobacco Use History - business analytics manager: Tobacco Use History - business analytics manager Tobacco Use Smoking Status Never smoker 10/21/24 10:11 Hx Tobacco Use No 10/21/24 10:11 Years Smoking Packs Smoked per Day Smoking Cessation Date was within the last 15 years Hx Smoking Cessation Date Hx Smoking Cessation Counseling Hematologic Medial History Hematologic Hx - business analytics manager: 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 Hx of Blood Transfusion No 10/21/24 10:11 [...] confused, unrespo /Reproduction History /Reproductive History - business analytics manager: /Reproductive Hx- business analytics manager Hx Now No 10/21/24 10:11 Gestational Age [...] 19:19 15 mls/hr .Q48H ESTEPHANIE Administration Protocol [facility] Medical History Wears glasses Wears partial [...] 100 mcg PO QDAY 09/27/24 11/03/24 History cijdlumb-cesphcct-leoul acid 240 1 tab PO DAILY 11/03/24 History mcg-vit K1 150 mcg-herb 357 tablet (Alive Women's 50 Plus Ultra Multivitamin) vitamins A,C,H-qtsz-kssexb 4,296 1 cap PO BID 09/27/24 11/03/24 [...] MD Cosigner Signature: Date CC: ~ Signed [facility]02-03-2025 Evaluation note* Diagnosis Onset Date Resolution Status Admit Date Umbilical hernia acute September 27, 2024 1:58pm Umbilical hernia acute November 042024 5:26am [facility] Work Phone: 1(924) 940-409402-03-2025 Evaluation note* Diagnosis Onset Date Resolution Status Admit Date Umbilical hernia resolved September 27, 2024 1:58pm Umbilical hernia resolved November 042024 5:26am S/P umbilical hernia repair, follow-up exam acute November 19, 2024 9:54am Abdominal pain, acute acute Apr 2024 12:22pm Intra-abdominal abscess acute A pril 2024 12:22pm Perforated small intestine acute December 04, 2024 12:22pm Pneumoperitoneum acute December 042024 12:22pm [facility] Work Phone: 1(855) 645-823502-03-2025 Evaluation note* Diagnosis Onset Date Resolution Status Admit Date Umbilical hernia resolved September 27, 2024 1:58pm Umbilical hernia resolved November 042024 5:26am S/P umbilical hernia repair, follow-up exam acute November 19, 2024 9:54am Abdominal pain, acute acute Nov 2:29pm Intra-abdominal abscess acute A 2024 2:29pm Perforated small intestine acute December 04, 2024 2:29pm Pneumoperitoneum acute December 042024 2:29pm [facility] Work Phone: 1(469) 445-378602-03-2025 Evaluation note* Diagnosis Onset Date Resolution Status [...] bowel resection acute December 20, 2024 9:56am [facility] Work Phone: 1(378) 314-933910-02-2024 Consult note Author Man Link [facility] Note Date/Time November 04, 2024 11: 23am [facility] Medical Records Department [address] [place] [id number] Anesthesia Postop Eval II 11/04/24 1122 MR#: [id number] Acct: [id number] Name: GERMANIA DONIS Rep #:[id number] : 1945 79 From: Man Link MD PCP: Dr. Sowmya Cabrera MD Status :[facility] Y Race: C Location: [facility] Anesthesia Postop Eval I Sum Postop Eval Completion status Anesthesia document: Postop Eval 1 completed: Yes Anesthesia Postop Eval I Summary Anesthesia Postop Eval I Summary: Anesthesia Postop Eval I: Assessment Summary Airway patent Yes 11/04/24 09:40 BUSINESS ASST.ACAR Spontaneous unlabored Yes 11/04/24 09:40 BUSINESS ASST.ACAR respirations Mental status nausea No 11/04/24 09:40 BUSINESS ASST.ACAR Vomiting No 11/04/24 09:40 BUSINESS ASST.ACAR Anesthesia Postop Eval I: Fluid Summary Crystalloid volume administer 1,000 11/04/24 09:40 BUSINESS ASST.ACAR (ml) Colloids volume administered ( ml) Blood Product volume administered (ml) Total IV fluid infused 1,000 11/04/24 09:40 BUSINESS ASST.ACAR Anesthesia Postop Eval I: Summary Notes Anesthesia Complication No 11/04/24 09:40 BUSINESS ASST.ACAR Anesthesia Complication Comment: Post-operative progress note Anesthesia: Postop Eval II Evaluation Mental status: Awake Pain Level: 0 nausea: No Vomiting: No Complications Anesthesia Complication: No 11/04/24 1123 <Electronically signed by Man Link MD> Date _ Man Link MD Cosigner Signature: Date CC: ~ Signed [facility] Work Phone: 1(617) 603-326806-02-2023 Discharge summary Author Sary Mejia [facility] January 24, 2023 9:56am Note Date/Time January 24, 2023 9:56a m [facility] Physical Therapy Health[address] [place] [address] / REHABILITATION SERVICES DISCHARGE SUMMARY MR#: [id number] Acct: [id number] Name: GERMANIA DONIS Rep #: [id number] : 1945 77 From: Sary Mejia PT, Cert. MDT Referring Dr.: Dr. Mann Cabrera MD Statu s: REG RCR Insurance: MEDICARE PART A B [facility] It has been my pleasure [...] please feel free to call me at [phone]. Thank you for the referral of thispatient. Sincerely, Sary Mejia PT, Cert MDT Balance/Gait/Functional tests - Balance/Special Test Scores Oswestry Low Back Score: 3 <Electronically signed by Sary Mejia PT, Cert. MDT> 01/24/23 0956 CC: Dr. Mann Cabrera MD ~ ALBARO Signed [facility] Work Phone: Consult note [facility] Medical Records Department [address] [place] [address] Anesthesia Postop Eval II 11/04/24 1122 MR#: [id number] Acct: [id number] Name: GERMANIA DONIS Rep #:[id number] : 1945 79 From: Man Link MD PCP: Dr. Sowmya Cabrera MD Status :DEP [facility] Y Race: C Location: [facility] Anesthesia Postop Eval I Sum Postop Eval Completion status Anesthesia document: Postop Eval 1 completed: Yes Anesthesia Postop Eval I Summary Anesthesia Postop Eval I Summary: Anesthesia Postop Eval I: Assessment Summary Airway patent Yes 11/04/24 09:40 BUSINESS ASST.ACAR Spontaneous unlabored Yes 11/04/24 09:40 BUSINESS ASST.ACAR respirations Mental status nausea No 11/04/24 09:40 BUSINESS ASST.ACAR Vomiting No 11/04/24 09:40 BUSINESS ASST.ACAR Anesthesia Postop Eval I: Fluid Summary Crystalloid volume administer 1,000 11/04/24 09:40 BUSINESS ASST.ACAR (ml) Colloids volume administered ( ml) Blood Product volume administered (ml) Total IV fluid infused 1,000 11/04/24 09:40 BUSINESS ASST.ACAR Anesthesia Postop Eval I: Summary Notes Anesthesia Complication No 11/04/24 09:40 BUSINESS ASST.ACAR Anesthesia Complication Comment: Post-operative progress note Anesthesia: Postop Eval II Evaluation Mental status: Awake Pain Level: 0 nausea: No Vomiting: No Complications Anesthesia Complication: No 11/04/24 1123 MD> Date _ Man Link MD Cosigner Signature: Date CC: ~ [facility] assessment information available [facility] Work Phone: History and physical note Author Darrick Light [facility] Note Date/Time December 04, 2024 11: 41am [facility] Medical Records Department [address] [place] [address] History & Physical Exam 12/04/24 1125 MR#: [id number] Acct: [id number] Name: GERMANIA DONIS Osmel Rep #:[id number] : 1945 79 From: Darrick Lara PCP: Dr. Sowmya Cabrera MD Status :REG ER Location: ED HPI - General General Date of Admission: 12/04/24 Chief Complaint: Acute onset abdominal pain and anorexia HPI Narrative GERMANIA DONIS, is a 79 F who presents with her to [facility] due to complaints of acute onset abdominal [...] tubal ligation procedure approximately 40 years ago. [facility] Medical History Umbilical hernia Wears [...] 100 mcg PO QDAY 09/27/24 11/03/24 History iheofoji-pxrecnsr-fyilr acid 240 1 tab PO DAILY 11/03/24 History mcg-vit K1 150 mcg-herb 357 tablet (Alive Women's 50 Plus Ultra Multivitamin) vitamins A,C,M-taeh-jrrswf 4,296 1 cap PO BID 09/27/24 11/03/24 [...] 83.2 H, Lymph % (Auto) 9.5 L, [place] % (Auto) 6.5, Eos % (Auto) 0.3, [...] Sl. Cloudy, Urine pH 6.0, Ur Specific [place] 1.010, Urine Protein 15 H, Urine Glucose [...] at 10:34 a.m. on 12/04/2024. Reading Location: [id number] Assessment & Plan Assessment/Plan (1) Perforated small [...] indicated. [facility] to monitorfor pain control and advancement of the diet. Darrick Light MD General Surgery Endocrine Surgery Pager: [facility] [address] [place] [address], [facility], [address] [place] [address] Office: [phone] (2) Pneumoperitoneum: Charges/Coding Visit Charges Inpatient E&M: 71719 Init Hosp L2 12/04/24 1141 <Electronically signed by Darrick Light MD> Cosigner Signature (if applicable): CC: Dr. Sowmya Cabrera MD; Dr. Darrick Light MD~ Signed [facility] Work Phone: Reason for referral (narrative)No reason for referral information [facility]WC[facility] Work Phone: Summary Purpose Family History No Family History Records Found Relationship Condition Age at Onset Recorded Date/T josey sister Diabetes mellitus Unknown Advance Directives No Advanced Directives Records Found Advance Directive Response Recorded Date/ Time Living Will Yes October 21 11:11am Power of Tile Burner Yes October 21, 2024 11:11am Name of Medical Power of Tile Burner October 21, 2024 11:11am Advance Directive Response Recorded Date/ Time Living Will No December 04, 2024 7:55am Do you have a Healthcare Power of Tile Burner? No December 04, 2024 7:55am Living Will Yes February 27th, 2 025 11:11am Do you have a Healthcare Power of Tile Burner? Yes October 21, 2024 11:11am Name of Medical Power of Tile Burner October 21, 2024 11:11am Advance Directive Response Recorded Date/ Time Living Will No December 04, 2024 3:59pm Do you have a Healthcare Power of Tile Burner? No December 04, 2024 3:59pm Living Will Yes October 21 11:11am Do you have a Healthcare Power of Tile Burner? Yes October 21, 2024 11:11am Name of Medical Power of Tile Burner October 21, 2024 11:11am Chief Complaint and [...] section and content) DATE CREATED AUTHOR 02/16/2018 [facility] DATE CREATED AUTHOR AUTHOR'S ORGANIZ ATION 09/03/2021 [facility] DATE CREATED AUTHOR AUTHOR'S ORGANIZ ATION 01/06/2025 [facility] Goals (unrecognized section and content) Goals [...] BE BASED ON THE PRIMARY CLINICAL RECORDS. [facility] [employer] provides no warranty or guarantee of the accuracy or completeness of information in this document.
[2025-01-29] MEDS: 0.9% Normal Saline (1000mL) 1,000 ML 125 ML IV ×2 (06:16→15:55)
--- NOTE | 2025-01-29 07:35 | RAD_ITS ---
PROCEDURE: ABD DECUB AND/OR ERECT(PORTABL 01/29/2025 REASON FOR EXAM: SBO TECHNIQUE: Single view abdomen. COMPARISON: 01/29/2025 FINDINGS: Bowel gas: Feeding tube with the side port below the diaphragm with the tip in the proximal gastric body. Dilated small bowel loop in the left lower quadrant, measuring up to 3.9 cm, increased since prior. Colonic loops are nondistended. Large colonic stool. Calcifications: No suspicious calcifications. Bones: There are degenerative changes of the spine. Other: Imaged lung bases are clear. RAD/Abd Decub and/or Erect(Portabl IMPRESSION: See above Reading Location: [facility]
[2025-01-29 07:37] LABS: Absolute Lymphocyte Count 1.06 X10^3/uL (0.83-4.51); Absolute Neutrophil Count 3.7 X10^3/uL (2.0-7.7); Basophil# 0.01 X10^3/uL; Basophil% 0.2 % (0-1); Eosinophil# 0.04 X10^3/uL; Eosinophils% 0.8 % (0-5); Hemoglobin 11.3 g/dL (12.0-15.0); Lymphocyte # 1.06 X10^3/ul (0.83-4.51); Lymphocyte % 20.4 % (19-41); Mean Corp Hgb Conc 32.3 g/dL (32-36); Mean Corpuscular Hgb 29.7 pg (27.0-32.0); Mean Corpuscular Volume 91.9 fL (81-99); Mean Platelet Vol. 11.2 fl (6.2-12.0); Monocyte% 7.7 % (0-10); NRBC Flagged by Analyzer 0 % (0-5); Neutrophil # 3.67 X10^3/uL (2.7-7.7); Neutrophil % 70.5 % (47-70); Platelet Count 164 K/mm3 (150-450); RBC Distribution Width CV 14.1 % (11.6-14.6); RBC Distribution Width SD 47.5 fl (35.1-43.9); Red Blood Count 3.81 M/mm3 (4.2-5.4); White Blood Count 5.2 K/mm3 (4.4-11.0)
[2025-01-29 07:55] LABS: Anion Gap 8 (5-15); BUN 11 mg/dL (4-19); BUN/Creat Ratio 17.6 RATIO (10-20); Calcium,Total 8.5 mg/dL (7.6-11.0); Carbon Dioxide 24.6 mmol/L (21.0-32.0); Chloride 109 mmol/L (98-108); EST Glomerular Filtration Rate 92 (>60); Estimated Creatinine Clearance 50.87 ml/min (50-250); Glucose 111 mg/dL (70-99); Magnesium 2.2 mg/dL (1.5-2.2); Phosphorus 3.8 mg/dL (2.7-4.5); Potassium 4.1 mmol/L (3.3-5.1); Sodium Level 142 mmol/L (133-145)
[2025-01-29] MEDS: 0.9% Saline Lock 10 ML Syringe IV ×2 (08:33→10:31)
[2025-01-29] MEDS: Pantoprazole Sodium 40 MG in 0.9% Normal Saline (100mL MB+) 100 ML 330 MG IV (08:43)
[2025-01-29] MEDS: HYDROmorphone 0.5 MG/0.5 ML SYRINGE IV (10:31)
--- NOTE | 2025-01-29 10:31 | PCM.HP.STD ---
HPI - General General Date of Admission: 01/29/25 Chief Complaint: ab pain + n/V HPI Narrative RAMONA DONIS, is a 79 F [address] presented to [facility] with complaints of progressive acute onset mid abdominal pain and associated nausea and vomiting. She confirms she telephoned our outpatient office earlier in the day due to feeling sharp discomforts in her upper abdomen which she perceived as a pulling sensation. She further adds that her last bowel movement was a day ago and she has been passing intermittent flatus. She admits that she has not been as consistent with her fluid intake as she feels she ought to have been. Patient's ER workup is notable for CT imaging that shows evidence of small bowel obstruction with air-fluid levels within the small bowel and apparent transition point in the right lower quadrant. Radiology further adds a suspicion for this being secondary to adhesions. [facility] Medical History Umbilical hernia Wears glasses Wears partial dentures Wears dentures Depression Cervical stenosis of spine Arthritis Low iron High cholesterol Non-smoker Shortness of breath on exertion History of echocardiogram History of stress test Thyroid disease Heart murmur Home Medications ?Medication ?Instructions ?Recorded ?Last Taken ?Type alendronate 35 mg tablet 35 mg PO QWEEK 09/27/24 11/28/24 History atorvastatin 80 mg tablet 80 mg PO DAILY 09/27/24 12/03/24 History baclofen 10 mg tablet 10 mg PO DAILY 09/27/24 12/03/24 History calcium carbonate 500 mg PO DAILY 09/27/24 12/03/24 History levothyroxine 100 mcg capsule 100 mcg PO DAILY 09/27/24 12/03/24 History wnwlvstw-hggpjksw-whciv acid 240 1 tab PO DAILY 09/27/24 12/03/24 History mcg-vit K1 150 mcg-herb 357 tablet (Alive Women's 50 Plus Ultra Multivitamin) vitamins A,C,W-jihv-wyulxl 4,296 1 cap PO BID 09/27/24 12/03/24 History mcg-226 mg-90 mg capsule (PreserVision AREDS) zolpidem 10 mg tablet 10 mg PO QHS 09/27/24 12/03/24 History ketoconazole 2 % shampoo 1 applic topical WESA 12/04/24 12/01/24 History Allergy/AdvReac Type Severity Reaction Status Date / Time No Known Allergies Allergy Verified 12/20/24 10:02 Family History Sister Diabetes Surgical History S/P small bowel resection S/P umbilical hernia repair, follow-up exam History of hysterectomy Previous back surgery Social History Smoking Status: Never smoker alcohol intake: never substance use type: does not use Vital Signs Vital Signs Vital Signs: 01/28/25 22:00 01/28/25 22:02 01/28/25 23:00 Temperature 98.6 F 98.6 F Temperature Source Oral Oral Pulse Rate 85 85 Pulse Strength Respiratory Rate 16 16 Respiratory Effort Respiratory Depth Respiratory Pattern Blood Pressure 115/73 115/73 100/61 Blood Pressure Mean 87 87 74 Blood Pressure Source Blood Pressure Position Blood Pressure Location Pulse Ox 99 99 Oxygen Delivery Method Room Air Room Air 01/28/25 23:02 01/29/25 00:00 01/29/25 00:00 Temperature 98.2 F 98.2 F Temperature Source Oral Oral Pulse Rate 81 80 Pulse Strength Respiratory Rate 16 18 Respiratory Effort Respiratory Depth Respiratory Pattern Blood Pressure 100/61 92/52 L 92/52 L Blood Pressure Mean 74 65 65 Blood Pressure Source Blood Pressure Position Blood Pressure Location Pulse Ox 100 99 Oxygen Delivery Method Room Air Room Air 01/29/25 01:00 01/29/25 01:00 01/29/25 02:00 Temperature 98.2 F Temperature Source Oral Pulse Rate 84 89 89 Pulse Strength Respiratory Rate 16 18 16 Respiratory Effort Respiratory Depth Respiratory Pattern Blood Pressure 114/58 L 134/80 H 134/80 H Blood Pressure Mean 76 98 98 Blood Pressure Source Blood Pressure Position Blood Pressure Location Pulse Ox 97 100 100 Oxygen Delivery Method Room Air Room Air Room Air 01/29/25 02:44 01/29/25 03:38 01/29/25 04:06 Temperature 98.5 F 97.8 F Temperature Source Oral Pulse Rate 86 82 Pulse Strength Respiratory Rate 16 18 Respiratory Effort Normal Non-Labored Respiratory Depth Normal Respiratory Pattern Normal Blood Pressure 96/86 H 134/60 H Blood Pressure Mean 89 84 Blood Pressure Source Monitor Blood Pressure Position Semi-Fowlers Blood Pressure Location Left Arm Pulse Ox 95 98 Oxygen Delivery Method Room Air Room Air 01/29/25 08:31 01/29/25 09:13 Temperature 98.2 F Temperature Source Oral Pulse Rate 80 Pulse Strength Normal (2+) Respiratory Rate 15 Respiratory Effort Respiratory Depth Respiratory Pattern Blood Pressure 107/59 L Blood Pressure Mean 75 Blood Pressure Source Monitor Blood Pressure Position Semi-Fowlers Blood Pressure Location Left Arm Pulse Ox 99 Oxygen Delivery Method Room Air Weight Weight: 143 lb 8.335 oz Body Mass Index (BMI) 26.4 Physical Exam Const alert, oriented x3 and no apparent distress Resp normal respiratory effort GI GI Narrative: Nasogastric tube in place with modest amount of gastric aspirate that is nonbilious in character, nondistended, well-healed midline incision with no evidence of hernia, soft, mildly tender to palpation of the left lower quadrant Results Lab / Micro Data 01/29/25 07:15 01/29/25 07:15 Labs: Laboratory Results - last 24 hr 01/28/25 23:02: WBC 7.0, RBC 4.19 L, Hgb 12.2, Hct 37.8, MCV 90.2, MCH 29.1, MCHC 32.3, RDW Std Deviation 46.2 H, RDW Coeff of Zia 14.0, Plt Count 180, MPV 11.0, Immature Gran % (Auto) 0.300, Neut % (Auto) 72.8 H, Lymph % (Auto) 17.9 L, [place] % (Auto) 7.7, Eos % (Auto) 1.0, Baso % (Auto) 0.3, Absolute Neuts (auto) 5.1, Absolute Lymphs (auto) 1.26, Nucleated RBC % 0, Sodium 142, Potassium 4.0, Chloride 106, Carbon Dioxide 25.1, Anion Gap 12, BUN 15, Creatinine 0.71, Estim Creat Clear Calc 52.53, Est GFR (MDRD) Non-Af 88, BUN/Creatinine Ratio 20.7 H, Glucose 115 H, Lactic Acid 1.1, Calcium 9.4, Total Bilirubin 0.39, AST 36 H, ALT 32, Alkaline Phosphatase 102, Total Protein 6.9, Albumin 4.0, Globulin 2.9, Albumin/Globulin Ratio 1.4, Lipase 35 01/29/25 07:15: WBC 5.2, RBC 3.81 L, Hgb 11.3 L, Hct 35.0 L, MCV 91.9, MCH 29.7, MCHC 32.3, RDW Std Deviation 47.5 H, RDW Coeff of Zia 14.1, Plt Count 164, MPV 11.2, Immature Gran % (Auto) 0.400, Neut % (Auto) 70.5 H, Lymph % (Auto) 20.4, [place] % (Auto) 7.7, Eos % (Auto) 0.8, Baso % (Auto) 0.2, Absolute Neuts (auto) 3.7, Absolute Lymphs (auto) 1.06, Nucleated RBC % 0, Sodium 142, Potassium 4.1, Chloride 109 H, Carbon Dioxide 24.6, Anion Gap 8, BUN 11, Creatinine 0.60 L, Estim Creat Clear Calc 50.87, Est GFR (MDRD) Non-Af 92, BUN/Creatinine Ratio 17.6, Glucose 111 H, Calcium 8.5, Phosphorus 3.8, Magnesium 2.2 Imaging Radiology Impression Abdomen/Pelvis CT 01/28/25 23:24 IMPRESSION: Small-bowel obstruction with a transition point in the right lower quadrant concerning for adhesions. Trace pelvic ascites. Reading Location: [facility] Abdomen X-Ray 01/29/25 02:30 IMPRESSION: 1. Appropriate positioning of the enteric tube. 2. There are few prominent loops of small bowel containing air-fluid level, in keeping with recent CT findings of small-bowel obstruction. Reading Location: [facility] Abdomen X-Ray 01/29/25 07:35 IMPRESSION: See above Reading Location: [facility] Assessment & Plan Assessment/Plan (1) Small bowel obstruction: PLAN: Patient is 79-year-old female who presents with approximately 24 hours of progressive abdominal discomfort with associated nausea and vomiting. ER workup confirms clinical suspicion for small bowel obstruction. However, patient states that she had a normal bowel movement 24 hours ago and continues to intermittently pass flatus. Based on this and patient's CT imaging the obstruction appears to be partial in character. This is further suggested by patient's rather benign abdominal exam and minimal NG tube aspirate now approximately 8 hours postplacement. I had a lengthy conversation with patient and her family at bedside sharing that I was surprised by her presentation and the suggestion of adhesive disease being the cause of her small bowel obstruction as her prior surgical history is limited to a very small umbilical hernia repair with mesh and then my own laparoscopic small bowel resection approximately a month and a half ago. It is simply dubious that this extent of prior surgical intervention would be enough to cause intraperitoneal adhesions that would lead to obstruction. Therefore, I shared my suspicion that it was potentially more secondary to a relative dehydrated state which patient readily admits is a possibility. Either way, I recommended we proceed with a small bowel follow-through to determine if an obstruction persists. This exam was described with the patient along with its attendant risk for aspiration and I urged her to remain out of bed in a chair or ambulating during the course of the clamping. Patient confirmed understanding. Will reevaluate later today. Darrick Light MD General Surgery Endocrine Surgery Pager: [facility] [address] [place] [address], [address] [place] [address] Office: [phone] Charges/Coding Visit Charges Inpatient E&M: 14067 Init Hosp L2
--- NOTE | 2025-01-29 11:45 | RAD_ITS ---
PROCEDURE: SMALL BOWEL SERIES ONLY 01/29/2025 REASON FOR EXAM: F/U SBO TECHNIQUE: Oral Gastrografin was administered. Supine abdominal radiographs were obtained at 0 hours and 3 hours post administration. COMPARISON: Abdominal radiographs earlier same day. FINDINGS: 0 hours: Oral contrast material opacifies the stomach and proximal small bowel. The proximal small bowel is normal caliber. 3 hours: Contrast opacifies the stomach, small and large bowel loops to the level of the sigmoid colon. The visualized small bowel loops are normal caliber. RAD/Small Bowel Series Only IMPRESSION: Interval improvement in the small bowel dilation as described. Oral contrast o pacifies the stomach, small and large bowel loops at 3 hours post Gastrografin administration. Reading Location: [id number]
[2025-01-29] MEDS: BENZOCAINE/MENTHOL 1 LOZENGE MUCOUS MEM (16:27)
--- NOTE | 2025-01-29 18:25 | CASEMGMT ---
RN?CM?CATERING DRIVER?CM?to room to meet with patient for initial transition planning/care coordination?assessment.?RN?CM?introduced self and role at [facility].? Pt voices understanding and consents to?assessment?at this time.? Pt resting in bed in no distress at this time.?, dtr, and LARRY in room visiting and pt agreeable to them being present during assessment. Pt is A/O at this time and answers all questions appropriately.?? Care providers, pharmacy, and demographics verified/updated at this time. PCP:Dr Cabrera Specialists: none Preferred Pharmacy: [facility] Insurance: [facility], MMO Prescription Benefit:?yes LNOK:, Josep. Son, Roderick. Daughter. Living Arrangements: Lives w/ in 2-story home w/basement and one step to enter. [employer]. Independent w/ADL's and IADL's. They rent the upstairs out to an RN. Transportation:?Pt states drives self and states no transportation concerns at this time.? also drives. DME: ? Denies using any DME and denies needs.? Pt does have access to a cane and walker but does not use them. HHC/SNF: No hx of either. Has been to [facility] for OP therapy in the past. She declines needing HHC or OP therapy at this time. Pt wishes to return home and states has no concerns with going home at time of discharge.? PLAN:??Home. Tadeo HOUSEN?RN?CM
[2025-01-30 03:20] VITALS: BP 112/59; PULSE 71; RESP 16; TEMP 36.5; O2SAT 99
[2025-01-30 07:51] VITALS: BP 137/66; PULSE 83; RESP 16; TEMP 36.9; O2SAT 98
--- NOTE | 2025-01-30 08:59 | PCM.PN.SRG ---
Subjective Subjective Patient seen and examined during AM rounds. She is found resting in a bedside chair. She reports some mild abdominal discomfort but otherwise denies any nausea in response to her liquid diet. She is experiencing ongoing flatus and bowel movements. Objective Data Objective Data Vital Signs: Vital Signs Temp Pulse Resp BP Pulse Ox O2 Del Method 98.4 F 83 16 137/66 H 98 Room Air 01/30/25 07:51 01/30/25 07:51 01/30/25 07:51 01/30/25 07:51 01/30/25 07:51 01/30/25 07:51 Oxygen Delivery Method Room Air Weight: 143 lb 8.335 oz Body Mass Index (BMI) 26.4 Intake & Output: Intake and Output for Last 24 Hours 01/28/25 01/29/25 01/30/25 23:59 23:59 23:59 Intake Total 3148.75 / 3148.75 1350 / 1350 Output Total 100 / 100 Balance 3048.75 / 3048.75 1350 / 1350 Lab / Micro Data 01/29/25 07:15 01/29/25 07:15 Radiography Diagnostic Testing: Radiology Impression Small Bowel X-Ray 01/29/25 11:45 IMPRESSION: Interval improvement in the small bowel dilation as described. Oral contrast opacifies the stomach, small and large bowel loops at 3 hours post Gastrografin administration. Reading Location: [id number] Physical Exam Const oriented x3 and no apparent distress Resp normal respiratory effort GI GI Narrative: Nondistended, soft, mild (rated by patient with an intensity of 2 out of 10) diffuse tenderness with palpation Assessment & Plan Assessment/Plan (1) Small bowel obstruction: PLAN: Patient is 79-year-old female who presents with approximately 24 hours of progressive abdominal discomfort with associated nausea and vomiting. ER workup confirms clinical suspicion for small bowel obstruction. Patient underwent placement of nasogastric tube insertion for initial conservative management. Patient completed small bowel follow-through yesterday with transit to the colon by 3 hours and subsequently experienced numerous bowel movements. Caliber of the small bowel now uniformly normal on plain films. Abdominal exam is also improved. Patient was advanced to a clear liquid diet with these clinical improvements and she reports tolerance of this advanced this morning. Thus, we will advance to a transitional diet and monitor for tolerance again. Suspect her residual tenderness is simply related to the resolving obstructive process and do not suspect ongoing obstruction. You home later today provide patient tolerates transitional diet. Darrick Light MD General Surgery Endocrine Surgery Pager: [facility] [address] [place] [address], [address] [place] [address] Office: [phone] Charges/Coding Visit Charges Inpatient E&M: 72592 Subs Hosp L2
[2025-01-30] MEDS: Pantoprazole Sodium 40 MG in 0.9% Normal Saline (100mL MB+) 100 ML 330 MG IV (09:10)
[2025-01-30] MEDS: 0.9% Normal Saline (250mL Bag) 250 ML 15 ML IV (09:11)
[2025-01-30 11:30] VITALS: BP 111/69; PULSE 63; RESP 16; TEMP 36.3; O2SAT 98
--- NOTE | 2025-01-30 12:04 | DS.PCM_ITS ---
Providers Date of Admission: 01/29/25 Primary Care Physician: Dr. Austin Cabrera MD Reason For Visit: SBO Diagnosis Discharge Diagnosis (1) Small bowel obstruction: Status: Acute Code(s): K56.609 - Unspecified intestinal obstruction, unspecified as to partial versus complete obstruction Plan: Patient is 79-year-old female who presents with approximately 24 hours of progressive abdominal discomfort with associated nausea and vomiting. ER workup confirms clinical suspicion for small bowel obstruction. Patient underwent placement of nasogastric tube insertion for initial conservative management. Patient completed small bowel follow-through yesterday with transit to the colon by 3 hours and subsequently experienced numerous bowel movements. Caliber of the small bowel now uniformly normal on plain films. Abdominal exam is also improved. Patient was advanced to a clear liquid diet with these clinical improvements and she reports tolerance of this advanced this morning. Thus, we will advance to a transitional diet and monitor for tolerance again. Suspect her residual tenderness is simply related to the resolving obstructive process and do not suspect ongoing obstruction. You home later today provide patient tolerates transitional diet. Darrick Light MD General Surgery Endocrine Surgery Pager: [facility] [address] [place] [address], [facility], [address] [place] [address] Office: [phone] Medications at Discharge Home Medications alendronate 35 mg tablet 35 mg PO QWEEK 09/27/24 atorvastatin 80 mg tablet 80 mg PO DAILY 09/27/24 baclofen 10 mg tablet 10 mg PO DAILY 09/27/24 calcium carbonate 500 mg PO DAILY 09/27/24 levothyroxine 100 mcg capsule 100 mcg PO DAILY 09/27/24 cbwjgqqx-nojznrhh-mgltu acid 240 mcg-vit K1 150 mcg-herb 357 tablet (Alive Women's 50 Plus Ultra Multivitamin) 1 tab PO DAILY 09/27/24 vitamins A,C,X-gldo-crckci 4,296 mcg-226 mg-90 mg capsule (PreserVision AREDS) 1 cap PO BID 09/27/24 zolpidem 10 mg tablet 10 mg PO QHS 09/27/24 ketoconazole 2 % shampoo 1 applic topical WESA 12/04/24 Hospital Course Operations None Summary of Care Provided Hospital Course: Patient is a 79-year-old female who was admitted the evening of 01/28/2025 due to complaints of acute onset abdominal pain with associated nausea and vomiting. ER workup consistent with signs of small bowel obstruction but otherwise clinically stable. Therefore I advocated a conservative course of management and recommended placement of nasogastric tube with subsequent admission to the below. Hospital day 2 patient underwent small bowel follow-through via nasogastric tube and the study was passed with normal transit time and resulted in return of bowel function. Nasogastric tube was discontinued and patient was initiated on clear liquid diet. By hospital day 3 patient had demonstrated tolerance of clear liquid diet and was advanced to a transitional diet. She tolerated several meals of this with ongoing bowel activity. She continued to describe some tenderness of her abdominal wall but admitted that this has been present since her surgery to varying degrees. It appears rather superficial and she question whether may represent scar tissue within her abdominal wall. Based on her exam and description I would agree but would like to follow it up and have instructed her to make a visit with me in another 2 to 3 weeks following hospital discharge. With this confirmed patient was granted discharge to home with instructions to remain well-hydrated and continue a clear liquid diet for least 2 weeks postdischarge. Physical Exam Const alert, oriented x3 and no apparent distress Resp normal respiratory effort GI GI Narrative: Soft, nondistended, mildly tender to palpation right mid abdomen, otherwise entirely benign Weight / BMI Weight Weight: 143 lb 8.335 oz Body Mass Index (BMI) 26.4 ABG / Lab / Microbiology Data 01/29/25 07:15 01/29/25 07:15 Radiography Diagnostic Testing: Radiology Impression Small Bowel X-Ray 01/29/25 11:45 IMPRESSION: Interval improvement in the small bowel dilation as described. Oral contrast opacifies the stomach, small and large bowel loops at 3 hours post Gastrografin administration. Reading Location: [id number] D/C Instructions DC O2, CPAP, BIPAP Needs Home O2 Discharge instructions: No Meaningful Use Info Meaningful Use Meaningful Use Diagnoses (Choose all that apply): None applicable Ischemic Stroke Statin Dosing Therapy Reference: STATIN DOSE THERAPY REFERENCE: * Patients > 75 years receive moderate or high dose statin therapy. * Patients 75 years or YOUNGER should receive HIGH intensity statin dose unless contraindicated. You will be required to document reason for non-treatment if statin daily dose does not meet guidelines. HIGH DOSE STATIN THERAPY DAILY Atorvastatin > than or = to 40 mg Rosuvastatin > than or = to 20 mg Amlodipine + Atorvastatin > than or = to 2.5/40 mg Ezetimibe + Simvastatin 10/80 mg Simvastatin 80mg Discharge Plan Admission Admit Date/Time: 01/29/25 02:10 Primary Reason for Your Visit: small bowel obstruction Attending Provider: Darrick Light Primary Care Provider: Austin Cabrera Discharge Orders/Prescriptions Prescriptions: Continued levothyroxine 100 mcg capsule 100 mcg PO DAILY atorvastatin 80 mg tablet 80 mg PO DAILY zolpidem 10 mg tablet 10 mg PO QHS baclofen 10 mg tablet 10 mg PO DAILY Patient Comments: PT TAKES MORE THAN ONCE A DAY. PreserVision AREDS 4,296 mcg-226 mg-90 mg capsule 1 cap PO BID calcium carbonate 500 mg calcium (1,250 mg) tablet 500 mg PO DAILY Alive Women's 50 Plus Ultra MV 240-150 mcg tablet 1 tab PO DAILY alendronate 35 mg tablet 35 mg PO QWEEK Rx Instructions: TAKE ON SUNDAYS ketoconazole 2 % shampoo 1 applic topical WESA Referrals / Follow Up: Austin Cabrera MD [Primary Care Provider] - Disposition Disposition (needs filled in before D/C Order can be placed): Home, Self Care Charges/Coding Visit Charges Inpatient E&M: 02495 Disch Hosp
[2025-01-30] MEDS: Atorvastatin Calcium 80 MG Tablet PO (12:50)
[2025-01-30 15:24] VITALS: BP 114/57; PULSE 78; RESP 16; TEMP 36.8; O2SAT 95
--- NOTE | 2025-01-30 16:55 | DCINST_ITS ---
Discharge Instructions Diet Discharge Diet: - (transitional) DC O2, CPAP, BIPAP needs Home O2 Discharge instructions: No Dressing / Incision Discharge Activity: Return to Normal Activity May resume sexual activity in: No Restrictions Dressing / Incision Call your doctor if you observe: Inability to have a bowel movement Follow Up Care Please Follow Up With: Darrick Light MD When: 2-3 weeks Test Results: Test results from this visit will be discussed in further detail at your follow- up appointment, if applicable. Discharge Plan Admission Admit Date/Time: 01/29/25 02:10 Primary Reason for Your Visit: small bowel obstruction Attending Provider: Darrick Light Primary Care Provider: Austin Cabrera Discharge Orders/Prescriptions Prescriptions: Continued levothyroxine 100 mcg capsule 100 mcg PO DAILY atorvastatin 80 mg tablet 80 mg PO DAILY zolpidem 10 mg tablet 10 mg PO QHS baclofen 10 mg tablet 10 mg PO DAILY Patient Comments: PT TAKES MORE THAN ONCE A DAY. PreserVision AREDS 4,296 mcg-226 mg-90 mg capsule 1 cap PO BID calcium carbonate 500 mg calcium (1,250 mg) tablet 500 mg PO DAILY Alive Women's 50 Plus Ultra MV 240-150 mcg tablet 1 tab PO DAILY alendronate 35 mg tablet 35 mg PO QWEEK Rx Instructions: TAKE ON SUNDAYS ketoconazole 2 % shampoo 1 applic topical WESA Referrals / Follow Up: Austin Cabrera MD [Primary Care Provider] - Disposition Disposition (needs filled in before D/C Order can be placed): Home, Self Care
== END 2025-01-30 18:14 | disposition home or self-care (01) | DRG 390 ==
LOC: ED 01-29 01:16 → MS3 01-29 02:41
PROVIDERS: Admitting Provider Surgery; Emergency Provider Emergency Medicine; PCP Family Medicine; Visit Provider Surgery
DX: K56.609 Unspecified intestinal obstruction, unspecified as to partial versus complete obstruction (principal); E78.00 Pure hypercholesterolemia, unspecified; Z90.710 Acquired absence of both cervix and uterus; Z79.899 Other long term (current) drug therapy
CPT/HCPCS: 36415; 74019; 74177; 74250; 80048; 80053; 83605; 83690; 83735; 84100; 85025; 97802; 99285; Q9967; A4216; J2405

== ENCOUNTER 2025-02-20 16:08 | Observation (INO) | payer MEDICARE, OTHER, SELFPAY ==
[2025-02-20 16:08] VITALS: BP 129/67; PULSE 101; RESP 12; TEMP 37.2; O2SAT 99; BMI 25.0
--- NOTE | 2025-02-20 16:20 | CT_ITS ---
PROCEDURE: ABDOMEN/PELVIS W IV CONT ONLY 02/20/2025 REASON FOR EXAM: ABDOMINAL PAIN TECHNIQUE: ABDOMEN/PELVIS W IV CONT ONLY Coronal and Sagittal reconstruction series were provided. CONTRAST: 100 mL of Isovue 370 One or more dose reduction techniques were used (e.g., Automated exposure control, adjustment of the mA and/or kV according to patient size, use of iterative reconstruction technique. RADIATION DOSE SUMMARY: DLP: 620 mGycm COMPARISON: None FINDINGS: Lingular consolidation may reflect subsegmental atelectasis, early stages of pneumonia, and/or aspiration. The liver, spleen, pancreas, and both adrenal glands demonstrate no acute findings. Nonspecific slight thickening of the gallbladder wall which may be due to nondistention. The stomach is unremarkable. Small bowel resection is noted within the left hemiabdomen scattered fluid and inflammation about the small bowel may reflect enteritis. The appendix is normal. No colonic obstruction. Extensive colonic diverticulosis without acute diverticulitis. There is no free air or significant free fluid. The kidneys are unremarkable. The urinary bladder is distended. The pelvic structures are intact. There is no solid pelvic mass. Internal swirling of mesentery may reflect internal herniation. No significant lymphadenopathy. The aorta and IVC demonstrate no acute findings. Extensive atherosclerosis of the abdominal vasculature. Visualized osseous structures demonstrate no acute abnormality. Extensive multilevel degenerative changes of the lumbar spine. Postoperative changes of the anterior abdominal wall at midline. CT/Abdomen/Pelvis W IV Cont ONLY IMPRESSION: 1) small bowel resection within the left hemiabdomen. Scattered fluid and infl ammation about the small bowel may reflect enteritis. No bowel obstruction. 2) Swirling of the mesentery within the mid abdomen may reflect internal hernia tion. 3) Extensive colonic diverticulosis without acute diverticulitis. 4) nonspecific slight thickening of the gallbladder wall which may be due to no ndistention. Consider right upper quadrant ultrasound if there is concern for cholecystitis. 5) lingular consolidation may reflect subsegmental atelectasis, early stages of pneumonia, and/or aspiration. Reading Location: [facility]
--- NOTE | 2025-02-20 16:24 | EDS_ITS ---
<Statement entered by Estuardo Montoya DO - 02/20/25 19:32> Patient was seen and examined with physician assistant professor of criminal justice Henrietta All components of the history and physical confirmed and agreed. History of present illness and physical exam: Patient is a 79-year-old female with past medical history hypothyroidism, hernia repair, small bowel resection with reanastomosis for perforated small bowel on 12/04/[address] Light, SBO managed with NG tube on 01/28/2025, who presents to the emergency department with chief complaint of abdominal pain as well as nausea that is progressively worsening over the last 2 days. She states that she did eat around 1230 this afternoon had steak, fruit potatoes and dessert. Her bowel movements have been smaller and thinner over the last week and she is taking stool softener daily. She states that she is passing gas. Review of systems: Agreed above Physical exam: Agree with above MDM Patient is a 79-year-old female who presented to the emergency department the chief complaint of abdominal pain. On the differential diagnose includes Melamin to small bowel obstruction, appendicitis, diverticulitis, pancreatitis. Once the workup is obtained reviewed she will be reevaluated. Patient CBC reviewed a white blood cell count showed 4.0, hemoglobin stable at 12.6, platelet count 179. Patient sodium normal at 130, potassium normal at 4.1, creatinine was 0.75. Patient's lactic acid less than 1. Patient CT abdomen pelvis was reviewed showed no evidence of bowel obstruction small bowel resection within the left hemiabdomen scattered fluid and inflammation about the small bowel may reflect enteritis. Swirling of the mesentery within the mid abdomen may reflect internal herniation. Extensive colonic diverticulosis without acute diverticulitis. Nonspecific slight thickening of the gallbladder wall may be due to nondistention consider right upper quadrant if concern for cholecystitis her pain is mainly in her mid abdomen. Lingular consolidation may reflect subsegmental atelectasis early stages pneumonia and/or aspiration she does not have any upper respiratory symptoms. At this point time do believe the patient will warrant admission for her abdominal pain physician assistant Shrestha spoke with on-call general surgeon Dr. Medina who will accept the patient for admission. Patient was updated is agreeable to plan all question concerns answered at bedside. Final impression: Abdominal pain Nausea and vomiting Disposition: Patient will be admitted to the hospital Supervising attending attestation: Estuardo CORTES History of Present Illness Chief Complaint: Abd Pain Narrative Narrative: 79-year-old female with PMH of hypothyroidism, hernia repair, small bowel resection and reanastomosis for perforated small bowel on 12/04/[address] Light, SBO managed nonoperatively with NG tube on 01/29/2020 presents with several days of abdominal pain. She became nauseated and the pain worsened over the last 2 days. She is still able to eat and drink and states at 12:30 PM today she had steak, fruit, potatoes and dessert. Her bowel movements have been smaller and thinner over the last week and she is taking some type of oral stool softener daily. She is passing gas. She has no fever or chills. [facility] Medical History Umbilical hernia Wears glasses Wears partial dentures Wears dentures Depression Cervical stenosis of spine Arthritis Low iron High cholesterol Non-smoker Shortness of breath on exertion History of echocardiogram History of stress test Thyroid disease Heart murmur Home Medications ?Medication ?Instructions ?Recorded ?Last Taken ?Type atorvastatin 80 mg tablet 80 mg PO DAILY 09/27/2411/23 History baclofen 10 mg tablet 10 mg PO DAILY 09/27/2411/23 History calcium carbonate 500 mg PO DAILY 09/27/2407/19 History kimrkrpp-vsccpwey-nqpmf acid 240 1 tab PO DAILY 12/03/24 History mcg-vit K1 150 mcg-herb 357 tablet (Alive Women's 50 Plus Ultra Multivitamin) vitamins A,C,F-lxir-nueshs 4,296 1 cap PO BID 09/27/24 12/03/24 History mcg-226 mg-90 mg capsule (PreserVision AREDS) zolpidem 10 mg tablet 10 mg PO QHS 09/27/24 History ketoconazole 2 % shampoo 1 applic topical WESA 12/01/24 History alendronate 70 mg tablet 70 mg PO QWEEK 02/20/25 Unkn own History levothyroxine 100 mcg tablet 100 mcg PO DAILY 02/20/25 Unknown History Allergy/AdvReac Type Severity Reaction Status Date / Time No Known Allergies Allergy Verified 02/20/25 16:09 Family History Sister Diabetes Surgical History S/P small bowel resection S/P umbilical hernia repair, follow-up exam History of hysterectomy Previous back surgery Social History Smoking Status: Never smoker alcohol intake: never substance use type: does not use ROS ROS ED ROS Narrative Constitutional: Negative for fever, chills, malaise. GI: Positive for abdominal pain, nausea. Negative for vomiting, melena, hematochezia. : Negative for dysuria, hematuria or frequency. EXAM Physical Exam Narrative Exam Narrative: CONST: Patient sitting in no acute distress. EYES: Normal inspection. NECK: Normal inspection. RESP: No respiratory distress, CTAB. CVS: Regular rate and rhythm, no murmur, no gallop. ABD: Soft with periumbilical tenderness, no guarding or rebound, no distention. Bowel sounds x 4. SKIN: Color normal, no rash, warm, dry, intact. EXTREMITIES: Normal appearance, no pedal edema. NEURO: Alert and answering questions appropriately. PSYCH: Normal affect. Const Vital Signs: 02/20/25 16:08 02/20/25 17:19 Temperature 99 F 99.1 F Temperature Source Oral Oral Pulse Rate 101 H Respiratory Rate 12 Blood Pressure 129/67 H Blood Pressure Mean 87 Pulse Ox 99 Oxygen Delivery Method Room Air MDM MDM MDM Narrative Medical decision making narrative: History gathered from: Patient and spouse Consults: General Surgery 79-year-old female with past medical history of perforated small bowel with anastomosis, small bowel obstruction earlier this month presents with a few days of nausea and abdominal pain. She is tolerating p.o. intake. She is passing gas. She appears well and nontoxic with stable vital signs. Abdomen is soft with periumbilical tenderness but no distention or peritoneal signs. Bowel sounds are present. WBC is 4.0. Normal electrolytes and renal function. Lactic is less than 1. CT scan is negative for obstruction but his scattered fluid and inflammation around the small bowel and swirling of the mesentery within the mid abdomen. Low-grade nonspecific thickening of the gallbladder wall but she does not have RUQ tenderness and I do not suspect cholecystitis. I consulted general surgery and Dr. Medina admitted the patient for observation. History & Record Review Discussion w/independent historian: Patient and Family Additional record(s) reviewed:: Prior inpatient record, Prior ED visit and Prior labs Lab Data Attestation: I reviewed the patient's lab results. Labs: Laboratory Results - last 24 hr 02/20/25 16:27 WBC 4.0 L RBC 4.30 Hgb 12.6 Hct 37.8 MCV 87.9 MCH 29.3 MCHC 33.3 RDW Std Deviation 45.1 H RDW Coeff of Zia 14.0 Plt Count 179 MPV 10.8 Immature Gran % (Auto) 0.200 Neut % (Auto) 61.4 Lymph % (Auto) 26.3 [place] % (Auto) 11.2 H Eos % (Auto) 0.2 Baso % (Auto) 0.7 Absolute Neuts (auto) 2.5 Absolute Lymphs (auto) 1.06 Nucleated RBC % 0 Sodium 138 Potassium 4.1 Chloride 103 Carbon Dioxide 23.3 Anion Gap 11 BUN 11 Creatinine 0.75 Estim Creat Clear Calc 48.95 L Est GFR (MDRD) Non-Af 82 BUN/Creatinine Ratio 14.9 Glucose 92 Lactic Acid < 1.0 Calcium 9.1 Radiography Diagnostic Testing: Clinical Impression(s) from Imaging Studies Abdomen/Pelvis CT 02/20/25 16:20 IMPRESSION: 1) small bowel resection within the left hemiabdomen. Scattered fluid and inflammation about the small bowel may reflect enteritis. No bowel obstruction. 2) Swirling of the mesentery within the mid abdomen may reflect internal herniation. 3) Extensive colonic diverticulosis without acute diverticulitis. 4) nonspecific slight thickening of the gallbladder wall which may be due to nondistention. Consider right upper quadrant ultrasound if there is concern for cholecystitis. 5) lingular consolidation may reflect subsegmental atelectasis, early stages of pneumonia, and/or aspiration. Reading Location: [facility] Discharge Plan Triage Chief Complaint: Abd Pain ED Midlevel Provider: Henrietta Reardon ED Provider: Estuardo Montoya Dx/Rx/DC Orders Clinical Impression: Abdominal pain, S/P small bowel resection Primary Care Provider: Austin Cabrera Disposition Disposition: Acute Care Hospital
[2025-02-20] MEDS: 0.9% Normal Saline (1000mL) 1,000 ML 999 ML IV (16:35)
[2025-02-20 16:44] LABS: Hematocrit 37.8 % (37-47); Hemoglobin 12.6 g/dL (12.0-15.0); Immature Granulocytes Count 0.010 X10^3/uL (0.0-0.0); Mean Corp Hgb Conc 33.3 g/dL (32-36); Mean Corpuscular Volume 87.9 fL (81-99); Mean Platelet Vol. 10.8 fl (6.2-12.0); NRBC Flagged by Analyzer 0 % (0-5); Platelet Count 179 K/mm3 (150-450); RBC Distribution Width CV 14.0 % (11.6-14.6); RBC Distribution Width SD 45.1 fl (35.1-43.9); Red Blood Count 4.30 M/mm3 (4.2-5.4); White Blood Count 4.0 K/mm3 (4.4-11.0)
--- OUTSIDE RECORDS SUMMARY | 2025-02-20 16:47 | XMS RPT_ITS | CCD ---
Author Organization [facility] [employer] Care Team Providers Care Community Fundraiser Name Role Phone JUANITA COATS Unavailable Unavailabl e PABLO HENDRICKSON ([place]) Unavailable Unavailable Dr. Mann Cabrera Primary Care Provider Dr. Jitendra Cabrera Attending Provider Deborah ORDAZ, Dr. Avila Primary Care Provider Dr. Sowmya Cabrera MD Attending Provider Dr. Sowmya Cabrera MD Referring Provider Lex Rhoades MD Attending Provider Dr. Shelly Leoanrd MD Attending Provider [phone] Dr. Shelly Leonard MD Referring Provider [phone] Dr. Shelly Leonard MD Other Provider Dr. Sowmya Cabrera MD Primary Care Provider Dr. Sowmya Cabrera MD Referring Provider Dr. Sowmya Cabrera MD Attending Provider [phone] Dr. Pardeep Naranjo DO Emergency Provider Dr. Darrick Light MD Attending Provider Kuldeep ORDAZ, Dr. Hollingsworth Admit Provider [phone] Darrick Light MD Other Provider [phone] Eleonora Montaño PA-C Attending Provider Dr. Sowmya Cabrera MD Primary Care Provider Dr. Sowmya Cabrera MD Primary Care Provider Dr. Sowmya Cabrera MD Referring Provider Aisha ORDAZ, Dr. Bravo Attending Provider [phone] Eleonora Montaño PA-C Attending Provider Marcella ORDAZ, Dr. Montalvo Emergency Provider Deborah ORDAZ, Dr. Avila Primary Care Provider Deborah ORDAZ, Dr. Avila Referring Provider [phone] Ranney, Christopher Primary Care Unavailable Verona, Chalon Referring Unavailable Verona, Chalon Attending Unavailable Ranney, Christopher Primary Care Unavailable Ranney, Christopher Referring Unavailable Ranney, Christanyaer Attending Unavailable Ranney, Christopher Primary Care Unavailable Verona, Nickon Attending Unavailable Darrick Light Attending Unavailable BorDarrick gordon Consulting Unavailable Ranney, Christopher Primary Care Unavailable Kuldeep, Darrick Admitting Unavailable Ranney, Christopher Primary Care Unavailable Jeronimo Anne Attending Unavailable Ranney, Christopher Primary Care Unavailable Ranney, Christopher Referring Unavailable Ranney, Christanyaer Attending Unavailable Bortz, Darrick Admitting Unavailable BorDarrick gordon Attending Unavailable Ranney, Christopher Primary Care Unavailable Ranney, Christopher Primary Care Unavailable Robotham, Shelly Referring Unavailable Robotham, Shelly Attending Unavailable Darrick Light Attending Unavailable Ranney, Christopher Referring Unavailable Ranney, Christopher Primary Care Unavailable Kuldeep, Darrick Attending Unavailable Ranney, Christopher Primary Care Unavailable Ranney, Christopher Referring Unavailable Darrick Light Attending Unavailable Ranney, Christopher Primary Care Unavailable Borheidi, Darrick Admitting Unavailable Ranney, Christopher Primary Care Unavailable Ranney, Christopher Referring Unavailable Ranney, Christopher Attending Unavailable Ranney, Christopher Primary Care Unavailable Ranney, Christopher Referring Unavailable Ranney, Christopher Attending Unavailable Ranney, Christopher Primary Care Unavailable Ranney, Christopher Referring Unavailable Robotham, Shelly Attending Unavailable Ranney, Christopher Primary Care Unavailable Ranney, Christopher Referring Unavailable Robotham, Shelly Attending Unavailable Ranney, Christopher Primary Care Unavailable Robotham, Shelly Referring Unavailable Robotham, Shelly Attending Unavailable Robotham, Shelly Consulting Unavailable Darrick Light Admitting Unavailable Darrick Light Attending Unavailable BorDarrick gordon Consulting Unavailable Ranney, Christopher Primary Care Unavailable Eleonora Benedict Attending Unavailable Darrick Light Attending Unavailable Sowmya Cabrera Primary Care Unavailable Medications Current Medications Medication Drug Class(es) Dates Sig (Normalized) Sig (Original) alendronic acid 35 mg oral tablet (7 sources) Bisphosphonate Start: 09-27-2024 take 1 tablet by mouth every week Alendronate 35 mg tablet Active 35 mg PO EVERY WEEK September 27, 2024 1:00am TAKE ON SUNDAYS atorvastatin 80 mg oral tablet (7 sources) HMG-CoA Reductase Inhibitor Start: 09-27-2024 take 1 tablet by mouth once daily Atorvastatin 80 mg tablet Active 80 mg PO DAILY September 27, 2024 1:00am baclofen 10 mg oral tablet (7 sources) gamma-Aminobutyric Acid-ergic Agonist Start: 09-27-2024 take 1 tablet by mouth once daily Baclofen 10 mg tablet Active 10 mg PO DAILY September 27, 2024 1:00am calcium carbonate 1250 mg oral tablet (7 sources) Start: 09-27-2024 take 1 tablet by mouth once daily Calcium Carbonate 500 mg calcium (1,250 mg) tablet Active 500 mg PO DAILY September 27, 2024 1:00am ketoconazole 20 mg/ml medicated shampoo (6 sources) Azole Antifungal Start: 12-04-2024 Ketoconazole 2 % shampoo Active 1 NMA TOPICAL WESA December 04, 2024 12:00am levothyroxine sodium 0.1 mg oral capsule (7 sources) l-Thyroxine Start: 09-27-2024 take 1 capsule by mouth once daily Levothyroxine 100 mcg capsule Active 100 ug PO DAILY September 27, 2024 1:00am Mv-Mn-Folic Nlug-D1-Vuxx 357 (Alive Women's 50 Plus Ultra Mv) 240-150 mcg tablet (7 sources) Start: 09-27-2024 Mv-Mn-Folic Tctq-Q8-Srsz 357 (Alive Women's 50 Plus Ultra Mv) 240-150 mcg tablet Active 1 {tbl} PO DAILY September 27, 2024 1:00am Vitamins A,C,U-Qief-Xklpgs (Preservision Areds) 4,296 mcg-226 mg-90 mg capsule (7 sources) Start: 09-27-2024 Vitamins A,C,W-Bubc-Tspmtz (Preservision Areds) 4,296 mcg-226 mg-90 mg capsule Active 1 NMA PO TWICE A DAY September 27, 2024 1:00am zolpidem tartrate 10 mg oral tablet (7 sources) gamma-Aminobutyric Acid-ergic Agonist Start: 09-27-2024 take 1 tablet by mouth at bedtime Zolpidem 10 mg tablet Active 10 mg PO AT BEDTIME September 27, 2024 1:00am Completed/Discontinued Medications Medication Drug Class(es) Dates Sig (Normalized) Sig (Original) amoxicillin 875 mg / clavulanate 125 mg oral tablet (5 sources) Penicillin-class Antibacterial Start: 12-07-2024 End: 12-20-2024 Amoxicillin-Pot Clavulanate 875-125 mg Tablet Discontinued 1 {tbl} PO TWICE A DAY 2 December 07, 2024 12:00am December 20, 2024 10:02am oxyCODONE hydrochloride 5 mg oral capsule (7 sources) Opioid Agonist Start: 11-04-2024 End: 11-19-2024 take 1 capsule by mouth every six hours as needed for pain Oxycodone 5 mg capsule Discontinued 5 mg PO EVERY 6 HOURS as needed for pain 10 November 04, 2024 November 19, 2024 10:13am valACYclovir 1000 mg oral tablet (7 sources) Herpesvirus Nucleoside Analog DNA Polymerase Inhibitor, Herpes Simplex Virus Nucleoside Analog DNA Polymerase Inhibitor, Herpes Zoster Virus Nucleoside Analog DNA Polymerase Inhibitor Start: 09-27-2024 End: 10-21-2024 Valacyclovir 1 gram tablet Discontinued 1000 mg PO THREE TIMES A DAY September 27, 2024 1:00am October 21, 2024 11:08am Problems Active Problems Problem Classification Problem Date Documented Da te Episodic/Chronic Abdominal hernia (20 sources) Umbilical hernia; Translations: [Umbilical hernia without obstruction or gangrene] Onset: 11-16-2024 09-27-2024 Episodic Abdominal pain (14 sources) Acute abdominal pain; Translations: [Unspecified abdominal pain] Onset: 12-16-2024 12-04-2024 Episodic Intestinal obstruction without hernia (9 sources) Complete obstruction of lumen of small intestine; Translations: [Complete intestinal obstruction, unspecified as to cause] Onset: 02-14-2025 01-29-2025 Episodic Other aftercare (12 sources) History of repair of umbilical hernia; Translations: [Encounter for follow-up examination after completed treatment for conditions other than malignant neoplasm] 11-19-2024 Episodic Other gastrointestinal disorders (12 sources) Perforation of small intestine ; Translations: [Perforation of intestine (nontraumatic)] 12-04-2024 Episodic Other gastrointestinal disorders (12 sources) Pneumoperitoneum; Translations: [Other specified disorders of peritoneum] 12-04-2024 Episodic Other gastrointestinal disorders (1 source) Perforation of intestine (nontraumatic); Translations: [Perforation of intestine (nontraumatic)] Onset: 12-17-2024 Episodic Other gastrointestinal disorders (1 source) Other specified disorders of peritoneum; Translations: [Other specified disorders of peritoneum] Onset: 12-17-2024 Episodic Peritonitis and intestinal abscess (13 sources) Abdominal abscess; Translations: [Peritoneal abscess] Onset: 12-16-2024 12-04-2024 Episodic Residual codes; unclassified (8 sources) History of excision of small intestine; [...] Cough; Translations: [Cough] Onset: 08-30-2017 Episodic Other nervous system disorders (1 source) Paresthesia of skin; Translations: [Paresthesia of skin] Onset: 10-20-2024 Episodic Other non-traumatic joint disorders (1 source) [...] Interpretation Reference Range Facility Surgery Visit Reporton 02-11 Surgery Visit Report [facility] [address] [place] [address] OFFICE VISIT Date of Service: 02/11/25 MR#: [id number] Acct: [id number] Name: GERMANIA DONIS Rep #: [id number] : 1945 Provider: Dr. Darrick kendrick MD Age/Sex: 79/F Location: [facility] Status: Signed Intake Vital Signs 01/30/25 11:21 02/11/25 10:01 Height 5 ft 1.81 in Weight: 143 lb 8.335 oz 135 lb 4 oz Intake Visit Reasons: S/P SBO Chief Complaint: s/p sbo Accompanied by: Is patient in pain?: No Allergies No Known Allergies Allergy (Verified 12/20/24 10:02) Medications ???Medication ???Instructions ???Recorded ???Confirmed ???Type alendronate 35 mg tablet 35 mg PO QWEEK 09/27/24 02/11/25 H istory atorvastatin 80 mg tablet 80 mg PO DAILY 09/27/24 02/11/25 H istory baclofen 10 mg tablet 10 mg PO DAILY 09/27/24 02/11/25 H istory calcium carbonate 500 mg PO DAILY 09/27/24 02/11/25 History levothyroxine 100 mcg capsule 100 mcg PO DAILY 09/27/24 02/11/25 History wxzbdvse-stkyemrn-mlim c acid 240 1 tab PO DAILY 09/27/24 02/11/25 H istory mcg-vit K1 150 mcg-herb 357 tablet (Alive Women's 50 Plus Ultra Multivitamin) vitamins A,C,C-iksy-qdcahn 4,296 1 cap PO BID 09/27/24 02/11/25 His tory mcg-226 mg-90 mg capsule (PreserVision AREDS) zolpidem 10 mg tablet 10 mg PO QHS 09/27/24 02/11/25 His tory ketoconazole 2 % shampoo 1 applic topical WESA 12/04/24 History Have you fallen in the past year?: No Subjective Details: Patient is a 79-year-old female who reports for outpatient visit following recent inpatient admission for management of a small bowel obstruction that concluded 01/30/2025. She presents today with her . She confirms he has been having regular bowel movements. She states these have been soft mostly and nonbloody. However, she notes she is taking iron because she had been feeling fatigued and was recommended to begin iron by her daughters. She notes that she has had progressive resolution of her abdominal discomfort that she described predated even her obstructive symptoms. Additionally she confirms that she remained on a transitional diet for 1 week posthospital discharge and has been diligent about drinking more water and thoroughly chewing her food. Objective Details: Constitutional: No acute distress, cooperative Abdomen: Nondistended, well-healed surgical incisions with no visible herniation, soft, nontender to palpation Coding Level of Care Code Off vis,est,level 3 Diagnoses Complete obstruction of small intestine K56.601 [facility] Medical History Umbilical hernia Wears glasses Wears partial dentures Wears dentures Depression Cervical stenosis of spine Arthritis Low iron High cholesterol Non-smoker Shortness of breath on exertion History of echocardiogram History of stress test Thyroid disease Heart murmur Surgical History S/P small bowel resection S/P umbilical hernia repair, follow-up exam History of hysterectomy Previous back surgery Family History Sister Diabetes Social History Smoking Status: Never smoker alcohol intake: never substance use type: does not use Assessment and Plan (No Qualifiers) Assessment and Plan (1) Complete obstruction of small intestine: Status: Acute Comment: Patient is 79-year-old female who follows up as an outpatient after successful nonoperative management of a small bowel obstruction earlier this month. She continues to do well as an outpatient and has experienced even improved postoperative discomfort (following her bowel resection). I reiterated the need to remain well-hydrated going forward. Additionally, I encouraged patient to seek a complete anemia workup from her PCP. In review of her hospital laboratories she was anemic with a hemoglobin of 11 during her stay. It is quite possible she has iron deficiency anemia, but if further investigation can reveal the cause for this iron deficiency anemia and she does not require indefinite iron supplementation this would be in her best interest as that is otherwise constipating and would serve to slow her GI motility which could increase her risk for future obstructive events. Plan: ??? Further conservative measures recommended ongoing to mitigate risk for bowel obstruction???includin g remaining well-hydrated and requesting a investigation of anemia to determine if she can come off of her self-imposed iron supplementation ???No formal clinic follow-up is required, but patient is invited to call or arrange further follow- (more content not included)... Normal [facility] Discharge Instructionon Discharge Instruction [facility] Medical Records Department [address] [place] [address] Instructions for Home/Discharge Instructions 01/30/25 1655 MR#: [id number] Acct: [id number] Name: GERMANIA DONIS Rep #: [id number] : 1945 79 From: Darrick Light MD PCP: Dr. Sowmya Cabrera MD Status:ADM IN Discharge Instructions Diet Discharge Diet: - (transitional) DC O2, CPAP, BIPAP needs Home O2 Discharge instructions: No Dressing / Incision Discharge Activity: Return to Normal Activity May resume sexual activity in: No Restrictions Dressing / Incision Call your doctor if you observe: Inability to have a bowel movement Follow Up Care Please Follow Up With: Darrick Light MD When: 2-3 weeks Test Results: Test results from this visit will be discussed in further detail at your follow-up appointment, if applicable. Discharge Plan Admission Admit Date/Time: 01/29/25 02:10 Primary Reason for Your Visit: small bowel obstruction Attending Provider: Darrick Light Primary Care Provider: Sowmya Cabrera Discharge Orders/Prescriptions Prescriptions: Continued levothyroxine 100 mcg capsule 100 mcg [...] Order can be placed): Home, Self Care 01/30/25 1650 Darrick Light MD CC: Dr. Sowmya Cabrera MD Signed [facility] Abd Decub and/or Erect([facility] blon 01-29-2025 Abd Decub and/or Erect([facility] [address] [place], [place] [address] Abd Decub and/or Erect([facility] MR#: [id number] Acct: [id number] Name: GERMANIA DONIS Rep #: [id number] : 1945 F 79 From: Margarito augustine MD PCP: Dr. Sowmya Cabrera MD Status: ADM IN Study: Abd Decub and/or Erect([facility] Date of Exam: 0 01/29/25 Exam# [id number] Ordering Dr: Darrick Light MD PROCEDURE: ABD DECUB AND/OR ERECT([facility] 01/29/2025 REASON FOR EXAM: SBO TECHNIQUE: Single view abdomen. COMPARISON: 01/29/2025 FINDINGS: Bowel gas: Feeding tube with the side port below the diaphragm with the tip in the proximal gastric body. Dilated small bowel loop in the left lower quadrant, measuring up to 3.9 cm, increased since prior. Colonic loops are nondistended. Large colonic stool. Calcifications: No suspicious calcifications. Bones: There are degenerative changes of the spine. Other: Imaged lung bases are clear. RAD/Abd Decub and/or Erect(Portabl IMPRESSION: See above Reading [facility] CC: Dr. Sowmya Cabrera MD; Dr. Darrick Light MD Credit And Collections Representative: Signed [facility] Abd Decub and/or Erect([facility] [address] [place], [place] [address] Abd [facility] [id number] Acct: [id number] Name: GERMANIA DONIS Rep #: [id number] : 1945 F 79 From: Elio Bolaños MD PCP: Dr. Sowmya Cabrera MD Status: ADM IN Study: [facility] Date of Exam: 0 01/29/25 Exam# [id number] Ordering Dr: Darrick Light MD PROCEDURE: ABD DECUB AND/OR ERECT(PORTABL 01/29/2025 REASON FOR EXAM: SBO TECHNIQUE: 4 frontal views of the abdomen. COMPARISON: CT abdomen and pelvis on 01/28/2025 FINDINGS: Enteric tube tip and side port project over the expected location of the stomach. There are scattered air-fluid levels, to include a loop of small bowel in the left abdomen measuring 3.4 cm in diameter. Colon appears unremarkable. Contrast fills the urinary bladder. Degenerative changes and rightward curvature of the lumbar spine. RAD/Abd Decub and/or Erect(Portabl IMPRESSION: 1. Appropriate positioning of the enteric tube. 2. There are few prominent loops of small bowel containing air-fluid level, in keeping with recent CT findings of small-bowel obstruction. Reading Location: [facility] CC: Dr. Sowmya Cabrera MD; Dr. Darrick Light MD Credit And Collections Representative: Signed [facility] Absolute lymphocyte countOrd ered By: Darrick Light on 01-29-2025 Lymphocytes Auto (Unsp spec) [#/Vol] 1.06 10*3/uL 0.83-4.51 [facility] Absolute neutrophil countOrd ered By: Darrick Light on 01-29-2025 Neutrophils (Bld) [#/Vol] 3.7 10*3/uL 2.0-7.7 [facility] Anion gap in Serum or Plasma Ordered By: Darrick Light on 01-29-2025 Anion gap [Moles/Vol] 8 mmol/L 5- [facility] Automated lymphocyte count a s percentage of total leukocytesOrdered By: Darrick Light on 01-29-2025 Lymphocytes/100 WBC Auto (Unsp spec) 20.4 % - [facility] BUN/creatinine ratioOrdered By: Darrick Light on 01-29-2025 Urea nitrogen/Creatinine [Mass ratio] 17.6 mg/mg - [facility] Basic Metabolic Profile (BMP )on 01-29-2025 BUN/CRE 17.6 RATIO Normal - [facility] Comment on above: Performed By: #### L 501.5200, L100.0100, L500.2500, L501.2300 ####[facility] [address] [place], [address] Calcium [Mass/Vol] 8.5 mg/dL Normal 7.6-11.0 [facility] Comment on above: Performed By: #### L 501.5200, L100.0100, L500.2500, L501.2300 ####[facility] [address] [place], [address] Chloride [Moles/Vol] 109 mmol/L High 98-108 [facility] Comment on above: Performed By: #### L 501.5200, L100.0100, L500.2500, L501.2300 ####[facility] [address] [place], [address] CO2 [Moles/Vol] 24.6 mmol/L Normal 21.0-32.0 [facility] Comment on above: Performed By: #### L 501.5200, L100.0100, L500.2500, L501.2300 ####[facility] [address] [place], [address] Creatinine [Mass/Vol] 0.60 mg/dL Low 0.70-1.20 [facility] Comment on above: Performed By: #### L 501.5200, L100.0100, L500.2500, L501.2300 ####[facility] [address] [place], [address] ECRCL 50.87 ml/min Normal 50-250 [facility] Comment on above: Performed By: #### L 501.5200, L100.0100, L500.2500, L501.2300 ####[facility] [address] [place], [address] GAP 8 Normal 5-15 [facility] Comment on above: Performed By: #### L 501.5200, L100.0100, L500.2500, L501.2300 ####[facility] [address] [place], [address] GFR/1.73 sq M.predicted among non-blacks MDRD (S/P/Bld) [Vol rate/Area] 92 mL/min/{1.73_m2} Normal >60 [facility] Comment on above: Result Comment: mL/m in/1.73m2 CKD-EPI Creatinine Equation (2020) Performed By: #### L 501.5200, L100.0100, L500.2500, L501.2300 ####[facility] [address] [place], [address] Glucose [Mass/Vol] 111 mg/dL High 70-99 [facility] Comment on above: Performed By: #### L 501.5200, L100.0100, L500.2500, L501.2300 ####[facility] [address] [place], [address] Potassium [Moles/Vol] 4.1 mmol/L Normal 3.3-5.1 [facility] Comment on above: Performed By: #### L 501.5200, L100.0100, L500.2500, L501.2300 ####[facility] [address] [place], [address] Sodium [Moles/Vol] 142 mmol/L Normal 133-145 [facility] Comment on above: Performed By: #### L 501.5200, L100.0100, L500.2500, L501.2300 ####[facility] [address] [place], [address] Urea nitrogen [Mass/Vol] 11 mg/dL Normal 4-19 [facility] Comment on above: Performed By: #### L 501.5200, L100.0100, L500.2500, L501.2300 ####[facility] [address] [place], [address] Basophil percentageOrdered B y: Darrick Light on 01-29-2025 Basophils/100 WBC (Bld) 0.2 % 0-1 [facility] CBC W/Diff, Automatedon - Absolute Lymph 1.06 X10 3/uL Normal 0.83-4.51 [facility] Comment on above: Performed By: #### L 501.5200, L100.0100, L500.2500, L501.2300 ####[facility] [address] [place], [address] Absolute Neut 3.7 X10 3/uL Normal 2.0-7.7 [facility] Comment on above: Performed By: #### L 501.5200, L100.0100, L500.2500, L501.2300 ####[facility] [address] [place], [address] Basophils/100 WBC (Bld) 0.2 % Normal 0-1 [facility] Comment on above: Performed By: #### L 501.5200, L100.0100, L500.2500, L501.2300 ####[facility] [address] [place], [address] Eosinophils/100 WBC (Bld) 0.8 % Normal 0-5 [facility] Comment on above: Performed By: #### L 501.5200, L100.0100, L500.2500, L501.2300 ####[facility] [address] [place], [address] Erythrocyte distribution width (RBC) [Ratio] 14.1 % Normal 11.6-14.6 [facility] Comment on above: Performed By: #### L 501.5200, L100.0100, L500.2500, L501.2300 ####[facility] [address] [place], [address] Hematocrit (Bld) [Volume fraction] 35.0 % Low 37-47 [facility] Comment on above: Performed By: #### L 501.5200, L100.0100, L500.2500, L501.2300 ####[facility] [address] [place], [address] Hemoglobin (Bld) [Mass/Vol] 11.3 g/dL Low 12.0-15.0 [facility] Comment on above: Performed By: #### L 501.5200, L100.0100, L500.2500, L501.2300 ####[facility] [address] [place], [address] IG% 0.400 Normal 0.0-0.9 [facility] Comment on above: Result Comment: IG% - Immature Granulocytes (promyelocytes, myelocytes and metamyelocytes) > 1% indicates that a LEFT SHIFT is Present. Performed By: #### L 501.5200, L100.0100, L500.2500, L501.2300 ####[facility] [address] [place], [address] Lymphocytes/100 WBC (Bld) 20.4 % Normal 19-41 [facility] Comment on above: Performed By: #### L 501.5200, L100.0100, L500.2500, L501.2300 ####[facility] [address] [place], [address] MCH (RBC) [Entitic mass] 29.7 pg Normal 27.0-32.0 [facility] Comment on above: Performed By: #### L 501.5200, L100.0100, L500.2500, L501.2300 ####[facility] [address] [place], [address] MCHC (RBC) [Mass/Vol] 32.3 g/dL Normal 32-36 [facility] Comment on above: Performed By: #### L 501.5200, L100.0100, L500.2500, L501.2300 ####[facility] [address] [place], [address] MCV (RBC) [Entitic vol] 91.9 fL Normal 81-99 [facility] Comment on above: Performed By: #### L 501.5200, L100.0100, L500.2500, L501.2300 ####[facility] [address] [place], [address] Monocytes/100 WBC (Bld) 7.7 % Normal 0-10 [facility] Comment on above: Performed By: #### L 501.5200, L100.0100, L500.2500, L501.2300 ####[facility] [address] [place], [address] Neutrophils/100 WBC (Bld) 70.5 % High 47-70 [facility] Comment on above: Performed By: #### L 501.5200, L100.0100, L500.2500, L501.2300 ####[facility] [address] [place], [address] Nucleated RBC (Bld) [#/Vol] 0 10*3/uL Normal 0-5 [facility] Comment on above: Performed By: #### L 501.5200, L100.0100, L500.2500, L501.2300 ####[facility] [address] [place], [address] Platelet mean volume (Bld) [Entitic vol] 11.2 fL Normal 6.2-12.0 [facility] Comment on above: Performed By: #### L 501.5200, L100.0100, L500.2500, L501.2300 ####[facility] [address] [place], [address] Platelets (Bld) [#/Vol] 164 10*3/uL Normal 150-450 [facility] Comment on above: Performed By: #### L 501.5200, L100.0100, L500.2500, L501.2300 ####[facility] [address] [place], [address] RBC (Bld) [#/Vol] 3.81 10*6/uL Low 4.2-5.4 [facility] Comment on above: Performed By: #### L 501.5200, L100.0100, L500.2500, L501.2300 ####[facility] [address] [place], [address] RDW SD 47.5 fl High 35.1-43.9 [facility] Comment on above: Performed By: #### L 501.5200, L100.0100, L500.2500, L501.2300 ####[facility] [address] [place], [address] WBC (Bld) [#/Vol] 5.2 10*3/uL Normal 4.4-11.0 [facility] Comment on above: Performed By: #### L 501.5200, L100.0100, L500.2500, L501.2300 ####[facility] [address] [place], [address] Carbon dioxide, total [Moles /volume] in Central venous bloodOrdered By: Darrick Light on 01-29-2025 CO2 [Moles/Vol] 24.6 mmol/L 21.0-32.0 [facility] Chloride assayOrdered By: Aysha Light on 01-29-2025 Chloride [Moles/Vol] 109 mmol/L High 98-108 [facility] Eosinophil percentageOrdered By: Darrick Light on 01-29-2025 Eosinophils/100 WBC (Bld) 0.8 % 0-5 [facility] Erythrocyte distribution wid th ratioOrdered By: Darrick Light on 01-29-2025 Erythrocyte distribution width (RBC) [Ratio] 14.1 % 11.6-14.6 [facility] Erythrocyte distribution wid th standard deviationOrdered By: Darrick Light on 01-29-2025 Erythrocyte distribution width (RBC) [Ratio] 47.5 fl High 35.1-43.9 [facility] Glomerular filtration rate ( GFR) estimation/1.73 sq m using serum, plasma, or whole bOrdered By: Darrick Light on 01-29-2025 GFR/1.73 sq M.predicted among non-blacks MDRD (S/P/Bld) [Vol rate/Area] 92 mL/min/{1.73_m2} >60 [facility] Comment on above: mL/min/1.73m2 CKD-EP I Creatinine Equation (2020) Hematocrit Auto (Bld) [Volum e fraction]Ordered By: Darrick Light on 01-29-2025 Hematocrit (Bld) [Volume fraction] 35.0 % Low 37-47 [facility] Hemoglobin measurementOrdere d By: Darrick Light on 01-29-2025 Hemoglobin (Bld) [Mass/Vol] 11.3 g/dL Low 12.0-15.0 [facility] Immature granulocytes/100 WB C Auto (Bld)Ordered By: Darrick Light on 01-29-2025 Immature granulocytes/100 WBC (Bld) 0.400 % 0.0-0.9 [facility] Comment on above: IG% - Immature Granu locytes (promyelocytes, myelocytes and metamyelocytes) > 1% indicates that a LEFT SHIFT is Present. Lactic Acidon 01-29-2025 Lactate [Moles/Vol] 1.1 mmol/L Normal 0.0-2.0 [facility] Comment on above: Order Comment: Y Performed By: #### L 501.2450, L100.0100, L503.6005, L500.4050 ####[facility] [address] [place], [address] MCV (mean corpuscular volume ) determinationOrdered By: Darrick Light on 01-29-2025 MCV (RBC) [Entitic vol] 91.9 fL 81-99 [facility] Magnesiumon 01-29-2025 Magnesium [Mass/Vol] 2.2 mg/dL Normal 1.5-2.2 [facility] Comment on above: Performed By: #### L 501.5200, L100.0100, L500.2500, L501.2300 ####[facility] [address] [place], [place], [address] Magnesium measurement (mass/ volume)Ordered By: Darrick Light on 01-29-2025 Magnesium (Unsp spec) [Mass/Vol] 2.2 mg/dL 1.5-2.2 [facility] Mean corpuscular hemoglobin (MCH) determinationOrdered By: Darrick Light on 01-29-2025 MCH (RBC) [Entitic mass] 29.7 pg 27.0-32.0 [facility] Mean corpuscular hemoglobin concentration (MCHC) determinationOrdered By: Darrick Light on 01-29-2025 MCHC (RBC) [Mass/Vol] 32.3 g/dL 32-36 [facility] Mean platelet volume determi nationOrdered By: Darrick Light on 01-29-2025 Platelet mean volume (Bld) [Entitic vol] 11.2 fL 6.2-12.0 [facility] Monocyte percentageOrdered B y: Darrick Light on 01-29-2025 Monocytes/100 WBC (Bld) 7.7 % 0-10 [facility] Neutrophil percentageOrdered By: Darrick Light on 01-29-2025 Neutrophils/100 WBC (Bld) 70.5 % High 47-70 [facility] Nucleated red blood cell per centageOrdered By: Darrick Light on 01-29-2025 Nucleated RBC/100 WBC (Bld) [Ratio] 0 % 0-5 [facility] Phosphoruson 01-29-2025 Phosphate [Mass/Vol] 3.8 mg/dL Normal 2.7-4.5 [facility] Comment on above: Performed By: #### L 501.5200, L100.0100, L500.2500, L501.2300 ####[facility] [address] [place], [address] Platelet countOrdered By: Aysha Light on 01-29-2025 Platelets (Bld) [#/Vol] 164 10*3/uL 150-450 [facility] Potassium measurement (mass/ volume)Ordered By: Darrick Light on 01-29-2025 Potassium (Unsp spec) [Mass/Vol] 4.1 mmol/L 3.3-5.1 [facility] RBC Auto (Bld) [#/Vol]Ordere d By: Darrick Light on 01-29-2025 RBC (Bld) [#/Vol] 3.81 10*6/uL Low 4.2-5.4 [facility] Serum creatinine measurement (mass/volume)Ordered By: Darrick Light on 01-29-2025 Creatinine [Mass/Vol] 0.60 mg/dL Low 0.70-1.20 [facility] Serum glucose measurement (m ass/volume)Ordered By: Darrick Light on 01-29-2025 Glucose [Mass/Vol] 111 mg/dL High 70-99 [facility] Serum or plasma calcium demetrice urement (mass/volume)Ordered By: Darrick Light on 01-29-2025 Calcium [Mass/Vol] 8.5 mg/dL 7.6-11.0 [facility] Serum or plasma urea nitroge n measurement (mass/volume)Ordered By: Darrick Light on 01-29-2025 Urea nitrogen [Mass/Vol] 11 mg/dL 4-19 [facility] Small Bowel Series Onlyon Small Bowel Series Only [facility] Imaging Services [address] [place], [place] [address] Small Bowel Series Only MR#: [id number] Acct: [id number] Name: GERMANIA ODNIS Rep #: [id number] : 1945 F 79 From: Kaila Choi nd, MD PCP: Dr. Sowmya Cabrera MD Status: ADM IN Study: Small Bowel Series Only Date of Exam: 01/29/25 Exam# [id number] Ordering Dr: Darrick Light MD PROCEDURE: SMALL BOWEL SERIES ONLY 01/29/2025 REASON FOR EXAM: F/U SBO TECHNIQUE: Oral Gastrografin was administered. Supine abdominal radiographs were obtained at 0 hours and 3 hours post administration. COMPARISON: Abdominal radiographs earlier same day. FINDINGS: 0 hours: Oral contrast material opacifies the stomach and proximal small bowel. The proximal small bowel is normal caliber. 3 hours: Contrast opacifies the stomach, small and large bowel loops to the level of the sigmoid colon. The visualized small bowel loops are normal caliber. RAD/Small Bowel Series Only IMPRESSION: Interval improvement in the small bowel dilation as described. Oral contrast opacifies the stomach, small and large bowel loops at 3 hours post Gastrografin administration. Reading Location: [facility] CC: Dr. Sowmya Cabrera MD; Dr. Darrick Light MD [employer] Collections Representative: Signed Normal [facility] Sodium levelOrdered By: Luis Light on 01-29-2025 Sodium [Moles/Vol] 142 mmol/L 133-145 [facility] White blood cell (WBC) count Ordered By: Darrick Light on 01-29-2025 WBC (Bld) [#/Vol] 5.2 10*3/uL 4.4-11.0 [facility] Abdomen/Pelvis W IV Cont ONL Yon 01-28-2025 Abdomen/Pelvis W IV Cont ONLY [facility] [place] [address] Abdomen/Pelvis W IV Cont ONLY MR#: [id number] Acct: [id number] Name: GERMANIA DONIS Rep #: [id number] : 1945 F 79 From: Lorenzo Davila PCP: Dr. Sowmya Cabrera MD Status: REG ER Study: Abdomen/Pelvis W IV Cont ONLY Date of Exam: Exam# [id number] Ordering Dr: Selvin Naranjo MD PROCEDURE: ABDOMEN/PELVIS W IV CONT ONLY 01/28/2025 REASON FOR EXAM: EPIGASTRIC PAIN TECHNIQUE: Abdomen and pelvis CT with intravenous contrast. Coronal and Sagittal reconstruction series were provided. One or more dose reduction techniques were used (e.g., Automated exposure control, adjustment of the mA and/or kV according to patient size, use of iterative reconstruction technique. COMPARISON: December 04, 2024 FINDINGS: Subtle ground-glass opacity at the medial right lung base, potentially atelectasis. Liver, spleen, pancreas and adrenal glands are intact. Gallbladder is satisfactory. No significant biliary ductal dilation. Kidneys enhance symmetrically. No suspicious renal mass, calculi or hydronephrosis. Uterus is present. Scattered colonic diverticula. Normal appendix. Multiple dilated small bowel loops throughout the abdomen width a transition point in the right lower quadrant near several wedge-shaped bowel loops concerning from small-bowel obstruction, potentially related to adhesions. Postsurgical changes of the small bowel in the right lower quadrant also noted. Gas and stool throughout the colon. Trace pelvic ascites. No free air. Severely calcified nonaneurysmal abdominal aorta. No bulky adenopathy. Superficial soft tissues are within normal limits. No acute osseous abnormality. CT/Abdomen/Pelvis W IV Cont ONLY IMPRESSION: Small-bowel obstruction with a transition point in the right lower quadrant concerning for adhesions. Trace pelvic ascites. Reading Location: [facility] CC: Dr. Selvin Naranjo MD; Dr. Sowmya Cabrera MD Credit [employer] Collections Representative: Signed Normal [facility] Absolute lymphocyte countOrd ered By: Selvin Naranjo on 01-28-2025 Lymphocytes Auto (Unsp spec) [#/Vol] 1.26 10*3/uL 0.83-4.51 [facility] Absolute neutrophil countOrd ered By: Selvin Naranjo on 01-28-2025 Neutrophils (Bld) [#/Vol] 5.1 10*3/uL 2.0-7.7 [facility] Anion gap in Serum or Plasma Ordered By: Selvin Naranjo on 01-28-2025 Anion gap [Moles/Vol] 12 mmol/L 5-15 [facility] Automated lymphocyte count a s percentage of total leukocytesOrdered By: Selvin Naranjo on 01-28-2025 Lymphocytes/100 WBC Auto (Unsp spec) 17.9 % Low 19-41 [facility] BUN/creatinine ratioOrdered By: Selvin Naranjo on 01-28-2025 Urea nitrogen/Creatinine [Mass ratio] 20.7 mg/mg High 10-20 [facility] Basophil percentageOrdered B y: Selvin Naranjo on 01-28-2025 Basophils/100 WBC (Bld) 0.3 % 0-1 [facility] Bilirubin, totalOrdered By: Selvin Naranjo on 01-28-2025 Bilirubin [Mass/Vol] 0.39 mg/dL 0.00-1.30 [facility] CBC W/Diff, Automatedon Absolute Lymph 1.26 X10 3/uL Normal 0.83-4.51 [facility] Comment on above: Performed By: #### L 501.2450, L100.0100, L503.6005, L500.4050 ####[facility] [address] [place], [address] Absolute Neut 5.1 X10 3/uL Normal 2.0-7.7 [facility] Comment on above: Performed By: #### L 501.2450, L100.0100, L503.6005, L500.4050 ####[facility] [address] [place], [address] Basophils/100 WBC (Bld) 0.3 % Normal 0-1 [facility] Comment on above: Performed By: #### L 501.2450, L100.0100, L503.6005, L500.4050 ####[facility] [address] [place], [address] Eosinophils/100 WBC (Bld) 1.0 % Normal 0-5 [facility] Comment on above: Performed By: #### L 501.2450, L100.0100, L503.6005, L500.4050 ####[facility] [address] [place], [address] Erythrocyte distribution width (RBC) [Ratio] 14.0 % Normal 11.6-14.6 [facility] Comment on above: Performed By: #### L 501.2450, L100.0100, L503.6005, L500.4050 ####[facility] [address] [place], [address] Hematocrit (Bld) [Volume fraction] 37.8 % Normal 37-47 [facility] Comment on above: Performed By: #### L 501.2450, L100.0100, L503.6005, L500.4050 ####[facility] [address] [place], [address] Hemoglobin (Bld) [Mass/Vol] 12.2 g/dL Normal 12.0-15.0 [facility] Comment on above: Performed By: #### L 501.2450, L100.0100, L503.6005, L500.4050 ####[facility] [address] [place], [address] IG% 0.300 Normal 0.0-0.9 [facility] Comment on above: Result Comment: IG% - Immature Granulocytes (promyelocytes, myelocytes and metamyelocytes) > 1% indicates that a LEFT SHIFT is Present. Performed By: #### L 501.2450, L100.0100, L503.6005, L500.4050 ####[facility] [address] [place], [address] Lymphocytes/100 WBC (Bld) 17.9 % Low 19-41 [facility] Comment on above: Performed By: #### L 501.2450, L100.0100, L503.6005, L500.4050 ####[facility] [address] [place], [address] MCH (RBC) [Entitic mass] 29.1 pg Normal 27.0-32.0 [facility] Comment on above: Performed By: #### L 501.2450, L100.0100, L503.6005, L500.4050 ####[facility] [address] [place], [address] MCHC (RBC) [Mass/Vol] 32.3 g/dL Normal 32-36 [facility] Comment on above: Performed By: #### L 501.2450, L100.0100, L503.6005, L500.4050 ####[facility] [address] [place], [address] MCV (RBC) [Entitic vol] 90.2 fL Normal 81-99 [facility] Comment on above: Performed By: #### L 501.2450, L100.0100, L503.6005, L500.4050 ####[facility] [address] [place], [address] Monocytes/100 WBC (Bld) 7.7 % Normal 0-10 [facility] Comment on above: Performed By: #### L 501.2450, L100.0100, L503.6005, L500.4050 ####[facility] [address] [place], [address] Neutrophils/100 WBC (Bld) 72.8 % High 47-70 [facility] Comment on above: Performed By: #### L 501.2450, L100.0100, L503.6005, L500.4050 ####[facility] [address] [place], [address] Nucleated RBC (Bld) [#/Vol] 0 10*3/uL Normal 0-5 [facility] Comment on above: Performed By: #### L 501.2450, L100.0100, L503.6005, L500.4050 ####[facility] [address] [place], [address] Platelet mean volume (Bld) [Entitic vol] 11.0 fL Normal 6.2-12.0 [facility] Comment on above: Performed By: #### L 501.2450, L100.0100, L503.6005, L500.4050 ####[facility] [address] [place], [address] Platelets (Bld) [#/Vol] 180 10*3/uL Normal 150-450 [facility] Comment on above: Performed By: #### L 501.2450, L100.0100, L503.6005, L500.4050 ####[facility] [address] [place], [address] RBC (Bld) [#/Vol] 4.19 10*6/uL Low 4.2-5.4 [facility] Comment on above: Performed By: #### L 501.2450, L100.0100, L503.6005, L500.4050 ####[facility] [address] [place], [address] RDW SD 46.2 fl High 35.1-43.9 [facility] Comment on above: Performed By: #### L 501.2450, L100.0100, L503.6005, L500.4050 ####[facility] [address] [place], [address] WBC (Bld) [#/Vol] 7.0 10*3/uL Normal 4.4-11.0 [facility] Comment on above: Performed By: #### L 501.2450, L100.0100, L503.6005, L500.4050 ####[facility] [address] [place], [address] Carbon dioxide, total [Moles /volume] in Central venous bloodOrdered By: Selvin Naranjo on 01-28-2025 CO2 [Moles/Vol] 25.1 mmol/L 21.0-32.0 [facility] Chloride assayOrdered By: Abimael Naranjo on 01-28-2025 Chloride [Moles/Vol] 106 mmol/L 98-108 [facility] Comprehensive Metabolic Prof ilon 01-28-2025 Albumin [Mass/Vol] 4.0 g/dL Normal 3.4-4.8 [facility] Comment on above: Performed By: #### L 501.2450, L100.0100, L503.6005, L500.4050 ####[facility] [address] [place], [address] Albumin/Globulin [Mass ratio] 1.4 {ratio} Normal 0.9-2.4 [facility] Comment on above: Performed By: #### L 501.2450, L100.0100, L503.6005, L500.4050 ####[facility] [address] [place], [address] ALK PHOS 102 U/L Normal 35-104 [facility] Comment on above: Performed By: #### L 501.2450, L100.0100, L503.6005, L500.4050 ####[facility] [address] [place], [address] ALT [Catalytic activity/Vol] 32 U/L Normal <=34 [facility] Comment on above: Performed By: #### L 501.2450, L100.0100, L503.6005, L500.4050 ####[facility] [address] [place], [address] AST [Catalytic activity/Vol] 36 U/L High <=31 [facility] Comment on above: Result Comment: Hemo lysis present, Results??could be affected. ?? Performed By: #### L 501.2450, L100.0100, L503.6005, L500.4050 ####[facility] [address] [place], [address] Bilirubin [Mass/Vol] 0.39 mg/dL Normal 0.00-1.30 [facility] Comment on above: Performed By: #### L 501.2450, L100.0100, L503.6005, L500.4050 ####[facility] [address] [place], [address] BUN/CRE 20.7 RATIO High 10-20 [facility] Comment on above: Performed By: #### L 501.2450, L100.0100, L503.6005, L500.4050 ####[facility] [address] [place], [address] Calcium [Mass/Vol] 9.4 mg/dL Normal 7.6-11.0 [facility] Comment on above: Performed By: #### L 501.2450, L100.0100, L503.6005, L500.4050 ####[facility] [address] [place], [address] Chloride [Moles/Vol] 106 mmol/L Normal 98-108 [facility] Comment on above: Performed By: #### L 501.2450, L100.0100, L503.6005, L500.4050 ####[facility] [address] [place], [address] CO2 [Moles/Vol] 25.1 mmol/L Normal 21.0-32.0 [facility] Comment on above: Performed By: #### L 501.2450, L100.0100, L503.6005, L500.4050 ####[facility] [address] [place], [address] Creatinine [Mass/Vol] 0.71 mg/dL Normal 0.70-1.20 [facility] Comment on above: Performed By: #### L 501.2450, L100.0100, L503.6005, L500.4050 ####[facility] [address] [place], [address] ECRCL 52.53 ml/min Normal 50-250 [facility] Comment on above: Performed By: #### L 501.2450, L100.0100, L503.6005, L500.4050 ####[facility] [address] [place], [address] GAP 12 Normal 5-15 [facility] Comment on above: Performed By: #### L 501.2450, L100.0100, L503.6005, L500.4050 ####[facility] [address] [place], [address] GFR/1.73 sq M.predicted among non-blacks MDRD (S/P/Bld) [Vol rate/Area] 88 mL/min/{1.73_m2} Normal >60 [facility] Comment on above: Result Comment: mL/m in/1.73m2 CKD-EPI Creatinine Equation (2020) Performed By: #### L 501.2450, L100.0100, L503.6005, L500.4050 ####[facility] [address] [place], [address] Globulin (S) [Mass/Vol] 2.9 g/dL Normal 2.2-4.2 [facility] Comment on above: Performed By: #### L 501.2450, L100.0100, L503.6005, L500.4050 ####[facility] [address] [place], [address] Glucose [Mass/Vol] 115 mg/dL High 70-99 [facility] Comment on above: Performed By: #### L 501.2450, L100.0100, L503.6005, L500.4050 ####[facility] [address] [place], [address] Potassium [Moles/Vol] 4.0 mmol/L Normal 3.3-5.1 [facility] Comment on above: Result Comment: Hemo lysis present, Results??could be affected. ?? Performed By: #### L 501.2450, L100.0100, L503.6005, L500.4050 ####[facility] [address] [place], [address] Sodium [Moles/Vol] 142 mmol/L Normal 133-145 [facility] Comment on above: Performed By: #### L 501.2450, L100.0100, L503.6005, L500.4050 ####[facility] [address] [place], [address] T PROT 6.9 g/dL Normal 5.9-8.4 [facility] Comment on above: Performed By: #### L 501.2450, L100.0100, L503.6005, L500.4050 ####[facility] [address] [place], [address] Urea nitrogen [Mass/Vol] 15 mg/dL Normal 4-19 [facility] Comment on above: Performed By: #### L 501.2450, L100.0100, L503.6005, L500.4050 ####[facility] [address] [place], [address] Emergency Department Summary on 01-28-2025 Emergency Department Summary [facility] Medical Records Department [address] [place] [address] Emergency Department Summary 01/28/25 MR#: [id number] Acct: [id number] Name: GERMANIA DONIS Rep #: [id number] : 1945 79 From: Selvin Naranjo MD PCP: Dr. Sowmya Cabrera MD Status:ADM IN Location: [facility] [place] VD984-7 HPI HPI - GI History of Present Illness Chief Complaint: Abd Pain Informant: patient and spouse/S.O. Narrative Narrative: 79-year-old female presenting with severe abdominal pain tonight that is much improved now. She states it was severe for maybe 30 minutes. Has been coming and going for less than a week, not as bad as it was tonight. She states the episodes have been periumbilical/epigastr ic, sharp, and for the most part tenderness or less. Nausea but no vomiting. Normal bowel movements. No blood. Normal urination. Does not radiate into her back or into her chest and she has no shortness of breath or recent cough, no fevers or chills. She had surgery about 2 months ago for a bowel perforation. She agrees this pain is different than that was, that was not intermittent and this is. Prior to that she had a herniorrhaphy about a month prior, but no other abdominal surgeries. No history of gallstones that she knows of. No definite association with meals here recently. [facility] Medical History Umbilical hernia Wears glasses Wears partial dentures Wears dentures Depression Cervical stenosis of spine Arthritis Low iron High cholesterol Non-smoker Shortness of breath on exertion History of echocardiogram History of stress test Thyroid disease Heart murmur Home Medications ???Medication ???Instructions ???Recorded ???Last Taken ???Type alendronate 35 mg tablet 35 mg PO QWEEK 09/27/24 11/28/24 H istory atorvastatin 80 mg tablet 80 mg PO DAILY 09/27/24 12/03/24 H istory baclofen 10 mg tablet 10 mg PO DAILY 09/27/24 12/03/24 H istory calcium carbonate 500 mg PO DAILY 09/27/24 12/03/24 History levothyroxine 100 mcg capsule 100 mcg PO DAILY 09/27/24 12/03/24 History araqqofo-xcyoeszh-sozj c acid 240 1 tab PO DAILY 09/27/24 12/03/24 H istory mcg-vit K1 150 mcg-herb 357 tablet (Alive Women's 50 Plus Ultra Multivitamin) vitamins A,C,K-bvge-tgesog 4,296 1 cap PO BID 09/27/24 12/03/24 His tory mcg-226 mg-90 mg capsule (PreserVision AREDS) zolpidem 10 mg tablet 10 mg PO QHS 09/27/24 12/03/24 His tory ketoconazole 2 % shampoo 1 applic topical WESA 12/04/2405/19 History Allergy/AdvReac Type Severity Reaction Status Date / Time No Known Allergies Allergy Verified 12/20/24 10:02 Family History Sister Diabetes Surgical History S/P small bowel resection S/P umbilical hernia repair, follow-up exam History of hysterectomy Previous back surgery Social History Smoking Status: Never smoker alcohol intake: never substance use type: does not use ROS ROS ED Constitutional Constitutional ED: Denies chills or fever(s) Eyes Eyes: Denies change in vision or diplopia ENT ENT ED: Denies rhinorrhea or sore throat Cardiovascular Cardiovascular: Denies chest pain or palpitations Respiratory/Chest Respiratory/Chest: Denies cough or dyspnea Gastrointestinal Gastrointestinal: Reports abdominal pain and nausea; Denies diarrhea or vomiting Genitourinary Genitourinary ED: Denies dysuria or hematuria Musculoskeletal Musculoskeletal: Denies back pain or neck pain Integumentary Denies abscess or rash Neurologic Neurologic: Denies headache(s), paresthesias or weakness Psychiatric Psychiatric: Denies anxiety or suicidal thoughts EXAM Physical Exam Const Vital Signs: 01/28/25 22:00 01/28/25 22:02 01/28/25 23:00 Temperature 98.6 F 98.6 F Temperature Source Oral Oral Pulse Rate 85 85 Respiratory Rate 16 16 Blood Pressure 115/73 115/73 100/61 Blood Pressure Mean 87 87 74 Pulse Ox 99 99 Oxygen Delivery Method Room Air Room Air 01/28/25 23:02 01/29/25 00:00 01/29/25 00:00 Temperature 98.2 F 98.2 F Temperature Source Oral Oral Pulse Rate 81 80 Respiratory Rate 16 18 Blood Pressure 100/61 92/52 L 92/52 L Blood Pressure Mean 74 65 65 Pulse Ox 100 99 Oxygen Delivery Method Room Air Room Air 01/29/25 01:00 01/29/25 01:00 01/29/25 02:00 Temperature 98.2 F Temperature Source Oral Pulse Rate 84 89 89 Respiratory Rate 16 18 16 Blood Pressure 114/58 L 134/80 H 134/80 H Blood Pressure Mean 76 98 98 Pulse Ox 97 100 100 Oxygen Delivery Method Room Air Room Air Room Air Positive w (more content not included)... Normal [facility] Eosinophil percentageOrdered By: Selvin Naranjo on 01-28-2025 Eosinophils/100 WBC (Bld) 1.0 % 0-5 [facility] Erythrocyte distribution wid th ratioOrdered By: Selvin Naranjo on 01-28-2025 Erythrocyte distribution width (RBC) [Ratio] 14.0 % 11.6-14.6 [facility] Erythrocyte distribution wid th standard deviationOrdered By: Selvin Naranjo on 01-28-2025 Erythrocyte distribution width (RBC) [Ratio] 46.2 fl High 35.1-43.9 [facility] Glomerular filtration rate ( GFR) estimation/1.73 sq m using serum, plasma, or whole bOrdered By: Selvin Naranjo on 01-28-2025 GFR/1.73 sq M.predicted among non-blacks MDRD (S/P/Bld) [Vol rate/Area] 88 mL/min/{1.73_m2} >60 [facility] Comment on above: mL/min/1.73m2 CKD-EP I Creatinine Equation (2020) Hematocrit Auto (Bld) [Volum e fraction]Ordered By: Selvin Naranjo on 01-28-2025 Hematocrit (Bld) [Volume fraction] 37.8 % 37-47 [facility] Hemoglobin measurementOrdere d By: Selvin Naranjo on 01-28-2025 Hemoglobin (Bld) [Mass/Vol] 12.2 g/dL 12.0-15.0 [facility] Immature granulocytes/100 WB C Auto (Bld)Ordered By: Selvin Naranjo on 01-28-2025 Immature granulocytes/100 WBC (Bld) 0.300 % 0.0-0.9 [facility] Comment on above: IG% - Immature Granu locytes (promyelocytes, myelocytes and metamyelocytes) > 1% indicates that a LEFT SHIFT is Present. Laboratory - Chemistry and C hemistry - challengeOrdered By: Selvin Naranjo on 01-28-2025 AST [Catalytic activity/Vol] 36 U/L High <32 [facility] Comment on above: Hemolysis present, R esults could be affected. Lactic acid measurementOrder ed By: Selvin Naranjo on 01-28-2025 Lactate [Moles/Vol] 1.1 mmol/L 0.0-2.0 [facility] Lipaseon 01-28-2025 Lipase [Catalytic activity/Vol] 35 U/L Normal 13-75 [facility] Comment on above: Result Comment: Plea se note: LIPASE revised reference range effective 22. New Lipase methodology. Expected to produce lower values than the previous assay method. NEW Reference Range: 13 - 75 U/L Performed By: #### L 501.2450, L100.0100, L503.6005, L500.4050 ####[facility] [address] [place], [address] Lipase measurementOrdered By : Selvin Naranjo on 01-28-2025 Lipase [Catalytic activity/Vol] 35 U/L 13-75 [facility] Comment on above: Please note:LIPASE r evised reference range effective 22. New Lipase methodology. Expected to produce lower values than the previous assay method. NEW Reference Range: 13 - 75 U/L MCV (mean corpuscular volume ) determinationOrdered By: Selvin Naranjo on 01-28-2025 MCV (RBC) [Entitic vol] 90.2 fL 81-99 [facility] Mean corpuscular hemoglobin (MCH) determinationOrdered By: Selvin Naranjo on 01-28-2025 MCH (RBC) [Entitic mass] 29.1 pg 27.0-32.0 [facility] Mean corpuscular hemoglobin concentration (MCHC) determinationOrdered By: Selvin Naranjo on 01-28-2025 MCHC (RBC) [Mass/Vol] 32.3 g/dL 32-36 [facility] Mean platelet volume determi nationOrdered By: Selvin Naranjo on 01-28-2025 Platelet mean volume (Bld) [Entitic vol] 11.0 fL 6.2-12.0 [facility] Monocyte percentageOrdered B y: Selvin Naranjo on 01-28-2025 Monocytes/100 WBC (Bld) 7.7 % 0-10 [facility] Neutrophil percentageOrdered By: Selvin Naranjo on 01-28-2025 Neutrophils/100 WBC (Bld) 72.8 % High 47-70 [facility] Nucleated red blood cell per centageOrdered By: Selvin Naranjo on 01-28-2025 Nucleated RBC/100 WBC (Bld) [Ratio] 0 % 0-5 [facility] Platelet countOrdered By: Abimael Naranjo on 01-28-2025 Platelets (Bld) [#/Vol] 180 10*3/uL 150-450 [facility] Potassium measurement (mass/ volume)Ordered By: Selvin Naranjo on 01-28-2025 Potassium (Unsp spec) [Mass/Vol] 4.0 mmol/L 3.3-5.1 [facility] Comment on above: Hemolysis present, R esults could be affected. RBC Auto (Bld) [#/Vol]Ordere d By: Selvin Naranjo on 01-28-2025 RBC (Bld) [#/Vol] 4.19 10*6/uL Low 4.2-5.4 [facility] Serum creatinine measurement (mass/volume)Ordered By: Selvin Naranjo on 01-28-2025 Creatinine [Mass/Vol] 0.71 mg/dL 0.70-1.20 [facility] Serum globulin measurementOr dered By: Selvin Naranjo on 01-28-2025 Globulin (S) [Mass/Vol] 2.9 g/dL 2.2-4.2 [facility] Serum glucose measurement (m ass/volume)Ordered By: Selvin Naranjo on 01-28-2025 Glucose [Mass/Vol] 115 mg/dL High 70-99 [facility] Serum or plasma alanine eastman otransferase (ALT) measurementOrdered By: Selvin Naranjo on 01-28-2025 ALT [Catalytic activity/Vol] 32 U/L <35 [facility] Serum or plasma albumin demetrice urement (mass/volume)Ordered By: Selvin Naranjo on 01-28-2025 Albumin [Mass/Vol] 4.0 g/dL 3.4-4.8 [facility] Serum or plasma albumin/glob ulin mass ratioOrdered By: Selvin Naranjo on 01-28-2025 Albumin/Globulin [Mass ratio] 1.4 {ratio} 0.9-2.4 [facility] Serum or plasma alkaline dedrick sphatase measurementOrdered By: Selvin Naranjo on 01-28-2025 ALP [Catalytic activity/Vol] 102 U/L 35-104 [facility] Serum or plasma calcium demetrice urement (mass/volume)Ordered By: Selvin Naranjo on 01-28-2025 Calcium [Mass/Vol] 9.4 mg/dL 7.6-11.0 [facility] Serum or plasma urea nitroge n measurement (mass/volume)Ordered By: Selvin Naranjo on 01-28-2025 Urea nitrogen [Mass/Vol] 15 mg/dL 4-19 [facility] Sodium levelOrdered By: Marc Naranjo on 01-28-2025 Sodium [Moles/Vol] 142 mmol/L 133-145 [facility] Total proteinOrdered By: Carole Naranjo on 01-28-2025 Protein [Mass/Vol] 6.9 g/dL 5.9-8.4 [facility] White blood cell (WBC) count Ordered By: Selvin Naranjo on 01-28-2025 WBC (Bld) [#/Vol] 7.0 10*3/uL 4.4-11.0 [facility] Surgery Visit Reporton 12-20 Surgery Visit Report [facility] [address] [place] [address]. [address] [place] [address] OFFICE VISIT Date of Service: 12/20/24 MR#: [id number] Acct: [id number] Name: GERMANIA DONIS Rep #: [id number] : 1945 Provider: Dr. Darrick kendrick MD Age/Sex: 79/F Location: [facility] Status: Signed Intake Vital Signs 12/05/24 [...] 100 mcg PO DAILY 09/27/24 12/20/24 History xedkxzef-vcquknte-zwcb c acid 240 1 tab PO DAILY 09/27/24 12/20/24 H istory mcg-vit K1 150 mcg-herb 357 tablet (Alive Women's 50 Plus Ultra Multivitamin) vitamins A,C,V-uauy-xlhmel 4,296 1 cap PO BID 09/27/24 12/20/24 [...] arrange f (more content not included)... Normal [facility] Absolute lymphocyte countOrd ered By: Eleonora Montaño on 12-07-2024 Lymphocytes Auto (Unsp spec) [#/Vol] 0.77 10*3/uL Low 0.83-4.51 [facility] Absolute neutrophil countOrd ered By: Eleonorarose mary Montaño on 12-07-2024 Neutrophils (Bld) [#/Vol] 3.3 10*3/uL 2.0-7.7 [facility] Anion gap in Serum or Plasma Ordered By: Eleonora Montaño on 12-07-2024 Anion gap [Moles/Vol] 9 mmol/L 01-06 [facility] Automated lymphocyte count a s percentage of total leukocytesOrdered By: Eleonora Montaño on 12-07-2024 Lymphocytes/100 WBC Auto (Unsp spec) 16.5 % Low 19-41 [facility] BUN/creatinine ratioOrdered By: Eleonora Montaño on 12-07-2024 Urea nitrogen/Creatinine [Mass ratio] 17.0 mg/mg - [facility] Basic Metabolic Profile (BMP )on 12-07-2024 BUN/CRE 17.0 RATIO Normal - [facility] Comment on above: Performed By: #### L 100.0100, L500.2500, L501.5200, L501.2300 ####[facility] [address] [place], [place], [id number] Calcium [Mass/Vol] 8.1 mg/dL Normal 7.6-11.0 [facility] Comment on above: Performed By: #### L 100.0100, L500.2500, L501.5200, L501.2300 ####[facility] [address] [place], [address] Chloride [Moles/Vol] 113 mmol/L High 98-108 [facility] Comment on above: Performed By: #### L 100.0100, L500.2500, L501.5200, L501.2300 ####[facility] [address] [place], [address] CO2 [Moles/Vol] 19.9 mmol/L Low 21.0-32.0 [facility] Comment on above: Performed By: #### L 100.0100, L500.2500, L501.5200, L501.2300 ####[facility] [address] [place], [address] Creatinine [Mass/Vol] 0.71 mg/dL Normal 0.70-1.20 [facility] Comment on above: Performed By: #### L 100.0100, L500.2500, L501.5200, L501.2300 ####[facility] [address] [place], [address] ECRCL 52.40 ml/min Normal 50-250 [facility] Comment on above: Performed By: #### L 100.0100, L500.2500, L501.5200, L501.2300 ####[facility] [address] [place], [address] GAP 9 Normal 5-15 [facility] Comment on above: Performed By: #### L 100.0100, L500.2500, L501.5200, L501.2300 ####[facility] [address] [place], [address] GFR/1.73 sq M.predicted among non-blacks MDRD (S/P/Bld) [Vol rate/Area] 88 mL/min/{1.73_m2} Normal >60 [facility] Comment on above: Result Comment: mL/m in/1.73m2 CKD-EPI Creatinine Equation (2020) Performed By: #### L 100.0100, L500.2500, L501.5200, L501.2300 ####[facility] [address] [place], [address] Glucose [Mass/Vol] 87 mg/dL Normal 70-99 [facility] Comment on above: Performed By: #### L 100.0100, L500.2500, L501.5200, L501.2300 ####[facility] [address] [place], [address] Potassium [Moles/Vol] 3.8 mmol/L Normal 3.3-5.1 [facility] Comment on above: Performed By: #### L 100.0100, L500.2500, L501.5200, L501.2300 ####[facility] [address] [place], [address] Sodium [Moles/Vol] 141 mmol/L Normal 133-145 [facility] Comment on above: Performed By: #### L 100.0100, L500.2500, L501.5200, L501.2300 ####[facility] [address] [place], [address] Urea nitrogen [Mass/Vol] 12 mg/dL Normal 4-19 [facility] Comment on above: Performed By: #### L 100.0100, L500.2500, L501.5200, L501.2300 ####[facility] [address] [place], [address] Basophil percentageOrdered B y: Eleonora Montaño on 12-07-2024 Basophils/100 WBC (Bld) 0.6 % 0-1 [facility] CBC W/Diff, Automatedon 04 Absolute Lymph 0.77 X10 3/uL Low 0.83-4.51 [facility] Comment on above: Performed By: #### L 100.0100, L500.2500, L501.5200, L501.2300 ####[facility] [address] [place], [address] Absolute Neut 3.3 X10 3/uL Normal 2.0-7.7 [facility] Comment on above: Performed By: #### L 100.0100, L500.2500, L501.5200, L501.2300 ####[facility] [address] [place], [address] Basophils/100 WBC (Bld) 0.6 % Normal 0-1 [facility] Comment on above: Performed By: #### L 100.0100, L500.2500, L501.5200, L501.2300 ####[facility] [address] [place], [address] Eosinophils/100 WBC (Bld) 2.6 % Normal 0-5 [facility] Comment on above: Performed By: #### L 100.0100, L500.2500, L501.5200, L501.2300 ####[facility] [address] [place], [address] Erythrocyte distribution width (RBC) [Ratio] 14.3 % Normal 11.6-14.6 [facility] Comment on above: Performed By: #### L 100.0100, L500.2500, L501.5200, L501.2300 ####[facility] [address] [place], [address] Hematocrit (Bld) [Volume fraction] 31.8 % Low 37-47 [facility] Comment on above: Performed By: #### L 100.0100, L500.2500, L501.5200, L501.2300 ####[facility] [address] [place], [address] Hemoglobin (Bld) [Mass/Vol] 10.4 g/dL Low 12.0-15.0 [facility] Comment on above: Performed By: #### L 100.0100, L500.2500, L501.5200, L501.2300 ####[facility] [address] [place], [address] IG% 0.900 Normal 0.0-0.9 [facility] Comment on above: Result Comment: IG% - Immature Granulocytes (promyelocytes, myelocytes and metamyelocytes) > 1% indicates that a LEFT SHIFT is Present. Performed By: #### L 100.0100, L500.2500, L501.5200, L501.2300 ####[facility] [address] [place], [address] Lymphocytes/100 WBC (Bld) 16.5 % Low 19-41 [facility] Comment on above: Performed By: #### L 100.0100, L500.2500, L501.5200, L501.2300 ####[facility] [address] [place], [address] MCH (RBC) [Entitic mass] 29.9 pg Normal 27.0-32.0 [facility] Comment on above: Performed By: #### L 100.0100, L500.2500, L501.5200, L501.2300 ####[facility] [address] [place], [address] MCHC (RBC) [Mass/Vol] 32.7 g/dL Normal 32-36 [facility] Comment on above: Performed By: #### L 100.0100, L500.2500, L501.5200, L501.2300 ####[facility] [address] [place], [address] MCV (RBC) [Entitic vol] 91.4 fL Normal 81-99 [facility] Comment on above: Performed By: #### L 100.0100, L500.2500, L501.5200, L501.2300 ####[facility] [address] [place], [address] Monocytes/100 WBC (Bld) 8.6 % Normal 0-10 [facility] Comment on above: Performed By: #### L 100.0100, L500.2500, L501.5200, L501.2300 ####[facility] [address] [place], [address] Neutrophils/100 WBC (Bld) 70.8 % High 47-70 [facility] Comment on above: Performed By: #### L 100.0100, L500.2500, L501.5200, L501.2300 ####[facility] [address] [place], [address] Nucleated RBC (Bld) [#/Vol] 0 10*3/uL Normal 0-5 [facility] Comment on above: Performed By: #### L 100.0100, L500.2500, L501.5200, L501.2300 ####[facility] [address] [place], [address] Platelet mean volume (Bld) [Entitic vol] 10.7 fL Normal 6.2-12.0 [facility] Comment on above: Performed By: #### L 100.0100, L500.2500, L501.5200, L501.2300 ####[facility] [address] [place], [address] Platelets (Bld) [#/Vol] 217 10*3/uL Normal 150-450 [facility] Comment on above: Performed By: #### L 100.0100, L500.2500, L501.5200, L501.2300 ####[facility] [address] [place], [address] RBC (Bld) [#/Vol] 3.48 10*6/uL Low 4.2-5.4 [facility] Comment on above: Performed By: #### L 100.0100, L500.2500, L501.5200, L501.2300 ####[facility] [address] [place], [address] RDW SD 47.8 fl High 35.1-43.9 [facility] Comment on above: Performed By: #### L 100.0100, L500.2500, L501.5200, L501.2300 ####[facility] [address] [place], [address] WBC (Bld) [#/Vol] 4.7 10*3/uL Normal 4.4-11.0 [facility] Comment on above: Performed By: #### L 100.0100, L500.2500, L501.5200, L501.2300 ####[facility] [address] [place], [address] Carbon dioxide, total [Moles /volume] in Central venous bloodOrdered By: Eleonora Montaño on 12-07-2024 CO2 [Moles/Vol] 19.9 mmol/L Low 21.0-32.0 [facility] Chloride assayOrdered By: Heide Montaño on 12-07-2024 Chloride [Moles/Vol] 113 mmol/L High 98-108 [facility] Eosinophil percentageOrdered By: Eleonora Montaño on 12-07-2024 Eosinophils/100 WBC (Bld) 2.6 % 0-5 [facility] Erythrocyte distribution wid th (RBC) [Ratio]Ordered By: Eleonora Montaño on 12-07-2024 Erythrocyte distribution width (RBC) [Entitic vol] 47.8 fL High 35.1-43.9 [facility] Erythrocyte distribution wid th ratioOrdered By: Eleonora Montaño on 12-07-2024 Erythrocyte distribution width (RBC) [Ratio] 14.3 % 11.6-14.6 [facility] Erythrocyte distribution wid th standard deviationOrdered By: Eleonora Montaño on 12-07-2024 Erythrocyte distribution width (RBC) [Ratio] 47.8 fl High 35.1-43.9 [facility] Estimation of creatinine nora aranceOrdered By: Eleonora Montaño on 12-07-2024 Estimated Creatinine Clearance Calc 52.40 ml/min 50-250 [facility] GFR/1.73 sq M.predicted [place] g non-blacks MDRD (S/P/Bld) [Vol rate/Area]Ordered By: Eleonora Montaño on 12-07-2024 Estimated GFR (MDRD) Non-Af Amer 88 >60 [facility] Comment on above: mL/min/1.73m2 CKD-EP I Creatinine Equation (2020) Glomerular filtration rate ( GFR) estimation/1.73 sq m using serum, plasma, or whole bOrdered By: Eleonora Montaño on 12-07-2024 GFR/1.73 sq M.predicted among non-blacks MDRD (S/P/Bld) [Vol rate/Area] 88 mL/min/{1.73_m2} >60 [facility] Comment on above: mL/min/1.73m2 CKD-EP I Creatinine Equation (2020) Hematocrit Auto (Bld) [Volum e fraction]Ordered By: Eleonora Montaño on 12-07-2024 Hematocrit (Bld) [Volume fraction] 31.8 % Low 37-47 [facility] Hemoglobin measurementOrdere d By: Eleonora Montaño on 12-07-2024 Hemoglobin (Bld) [Mass/Vol] 10.4 g/dL Low 12.0-15.0 [facility] Immature granulocytes/100 WB C Auto (Bld)Ordered By: Eleonora Montaño on 12-07-2024 Immature granulocytes/100 WBC (Bld) 0.900 % 0.0-0.9 [facility] Comment on above: IG% - Immature Granu locytes (promyelocytes, myelocytes and metamyelocytes) > 1% indicates that a LEFT SHIFT is Present. Lymphocytes Auto (Unsp spec) [#/Vol]Ordered By: Eleonora Montaño on 12-07-2024 Lymphocytes (Bld) [#/Vol] 0.77 10*3/uL Low 0.83-4.51 [facility] Lymphocytes/100 WBC Auto (Un sp spec)Ordered By: Eleonora Montaño on 04-15-2025 Lymphocytes/100 WBC (Bld) 16.5 % Low 19-41 [facility] MCV (mean corpuscular volume ) determinationOrdered By: Eleonora Montaño on 12-07-2024 MCV (RBC) [Entitic vol] 91.4 fL 81-99 [facility] Magnesiumon 12-07-2024 Magnesium [Mass/Vol] 2.1 mg/dL Normal 1.5-2.2 [facility] Comment on above: Performed By: #### L 100.0100, L500.2500, L501.5200, L501.2300 ####[facility] [address] [place], [place], [id number] Magnesium (Unsp spec) [Mass/ Vol]Ordered By: Eleonora Montaño on 12-07-2024 Magnesium [Mass/Vol] 2.1 mg/dL 1.5-2.2 [facility] Magnesium measurement (mass/ volume)Ordered By: Eleonora Montaño on 12-07-2024 Magnesium (Unsp spec) [Mass/Vol] 2.1 mg/dL 1.5-2.2 [facility] Mean corpuscular hemoglobin (MCH) determinationOrdered By: Eleonora Montaño on 12-07-2024 MCH (RBC) [Entitic mass] 29.9 pg 27.0-32.0 [facility] Mean corpuscular hemoglobin concentration (MCHC) determinationOrdered By: Eleonora Montaño on 12-07-2024 MCHC (RBC) [Mass/Vol] 32.7 g/dL 32-36 [facility] Mean platelet volume determi nationOrdered By: Eleonora Montaño on 12-07-2024 Platelet mean volume (Bld) [Entitic vol] 10.7 fL 6.2-12.0 [facility] Monocyte percentageOrdered B y: Eleonora Montaño on 12-07-2024 Monocytes/100 WBC (Bld) 8.6 % 0-10 [facility] Neutrophil percentageOrdered By: Eleonora Montaño on 12-07-2024 Neutrophils/100 WBC (Bld) 70.8 % High 47-70 [facility] Nucleated red blood cell per centageOrdered By: Eleonora Montaño on 12-07-2024 Nucleated RBC/100 WBC (Bld) [Ratio] 0 % 0-5 [facility] Phosphoruson 12-07-2024 Phosphate [Mass/Vol] 2.4 mg/dL Low 2.7-4.5 [facility] Comment on above: Performed By: #### L 100.0100, L500.2500, L501.5200, L501.2300 ####[facility] [address] [place], [address] Platelet countOrdered By: Hedie Montaño on 12-07-2024 Platelets (Bld) [#/Vol] 217 10*3/uL 150-450 [facility] Potassium (Unsp spec) [Mass/ Vol]Ordered By: Eleonora Montaño on 12-07-2024 Potassium [Moles/Vol] 3.8 mmol/L 3.3-5.1 [facility] Potassium measurement (mass/ volume)Ordered By: Eleonora Montaño on 12-07-2024 Potassium (Unsp spec) [Mass/Vol] 3.8 mmol/L 3.3-5.1 [facility] RBC Auto (Bld) [#/Vol]Ordere d By: Eleonora Montaño on 12-07-2024 RBC (Bld) [#/Vol] 3.48 10*6/uL Low 4.2-5.4 [facility] Serum creatinine measurement (mass/volume)Ordered By: Eleonora Montaño on 12-07-2024 Creatinine [Mass/Vol] 0.71 mg/dL 0.70-1.20 [facility] Serum glucose measurement (m ass/volume)Ordered By: Eleonora Montaño on 12-07-2024 Glucose [Mass/Vol] 87 mg/dL 70-99 [facility] Serum or plasma calcium demetrice urement (mass/volume)Ordered By: Eleonora Montaño on 12-07-2024 Calcium [Mass/Vol] 8.1 mg/dL 7.6-11.0 [facility] Serum or plasma urea nitroge n measurement (mass/volume)Ordered By: Eleonora Montaño on 12-07-2024 Urea nitrogen [Mass/Vol] 12 mg/dL 4-19 [facility] Serum phosphorus measurement Ordered By: Eleonora Montaño on 12-07-2024 Phosphorus Level 2.4 mg/dL Low 2.7-4.5 [facility] Sodium levelOrdered By: Markel Bender on 12-07-2024 Sodium [Moles/Vol] 141 mmol/L 133-145 [facility] White blood cell (WBC) count Ordered By: Eleonora Montaño on 12-07-2024 WBC (Bld) [#/Vol] 4.7 10*3/uL 4.4-11.0 [facility] Basic Metabolic Profile (BMP )on 12-06-2024 BUN/CRE 27.1 RATIO High 10-20 [facility] Comment on above: Performed By: #### L 501.5200, L500.2500, L501.2300, L100.0100 ####[facility] [address] [place], [address] Calcium [Mass/Vol] 8.0 mg/dL Normal 7.6-11.0 [facility] Comment on above: Performed By: #### L 501.5200, L500.2500, L501.2300, L100.0100 ####[facility] [address] [place], [address] Chloride [Moles/Vol] 112 mmol/L High 98-108 [facility] Comment on above: Performed By: #### L 501.5200, L500.2500, L501.2300, L100.0100 ####[facility] [address] [place], [address] CO2 [Moles/Vol] 18.8 mmol/L Low 21.0-32.0 [facility] Comment on above: Performed By: #### L 501.5200, L500.2500, L501.2300, L100.0100 ####[facility] [address] [place], [address] Creatinine [Mass/Vol] 0.64 mg/dL Low 0.70-1.20 [facility] Comment on above: Performed By: #### L 501.5200, L500.2500, L501.2300, L100.0100 ####[facility] [address] [place], [address] ECRCL 52.40 ml/min Normal 50-250 [facility] Comment on above: Performed By: #### L 501.5200, L500.2500, L501.2300, L100.0100 ####[facility] [address] [place], [address] GAP 9 Normal 5-15 [facility] Comment on above: Performed By: #### L 501.5200, L500.2500, L501.2300, L100.0100 ####[facility] [address] [place], [address] GFR/1.73 sq M.predicted among non-blacks MDRD (S/P/Bld) [Vol rate/Area] 91 mL/min/{1.73_m2} Normal >60 [facility] Comment on above: Result Comment: mL/m in/1.73m2 CKD-EPI Creatinine Equation (2020) Performed By: #### L 501.5200, L500.2500, L501.2300, L100.0100 ####[facility] [address] [place], [address] Glucose [Mass/Vol] 77 mg/dL Normal 70-99 [facility] Comment on above: Performed By: #### L 501.5200, L500.2500, L501.2300, L100.0100 ####[facility] [address] [place], [address] Potassium [Moles/Vol] 3.9 mmol/L Normal 3.3-5.1 [facility] Comment on above: Performed By: #### L 501.5200, L500.2500, L501.2300, L100.0100 ####[facility] [address] [place], [address] Sodium [Moles/Vol] 140 mmol/L Normal 133-145 [facility] Comment on above: Performed By: #### L 501.5200, L500.2500, L501.2300, L100.0100 ####[facility] [address] [place], [address] Urea nitrogen [Mass/Vol] 17 mg/dL Normal 4-19 [facility] Comment on above: Performed By: #### L 501.5200, L500.2500, L501.2300, L100.0100 ####[facility] [address] [place], [address] CBC W/Diff, Automatedon 11-23-2024 Absolute Lymph 0.67 X10 3/uL Low 0.83-4.51 [facility] Comment on above: Performed By: #### L 501.5200, L500.2500, L501.2300, L100.0100 ####[facility] [address] [place], [address] Absolute Neut 3.8 X10 3/uL Normal 2.0-7.7 [facility] Comment on above: Performed By: #### L 501.5200, L500.2500, L501.2300, L100.0100 ####[facility] [address] [place], [address] Basophils/100 WBC (Bld) 0.2 % Normal 0-1 [facility] Comment on above: Performed By: #### L 501.5200, L500.2500, L501.2300, L100.0100 ####[facility] [address] [place], [address] Eosinophils/100 WBC (Bld) 0.4 % Normal 0-5 [facility] Comment on above: Performed By: #### L 501.5200, L500.2500, L501.2300, L100.0100 ####[facility] [address] [place], [address] Erythrocyte distribution width (RBC) [Ratio] 14.4 % Normal 11.6-14.6 [facility] Comment on above: Performed By: #### L 501.5200, L500.2500, L501.2300, L100.0100 ####[facility] [address] [place], [address] Hematocrit (Bld) [Volume fraction] 31.1 % Low 37-47 [facility] Comment on above: Performed By: #### L 501.5200, L500.2500, L501.2300, L100.0100 ####[facility] [address] [place], [address] Hemoglobin (Bld) [Mass/Vol] 10.1 g/dL Low 12.0-15.0 [facility] Comment on above: Performed By: #### L 501.5200, L500.2500, L501.2300, L100.0100 ####[facility] [address] [place], [address] IG% 0.400 Normal 0.0-0.9 [facility] Comment on above: Result Comment: IG% - Immature Granulocytes (promyelocytes, myelocytes and metamyelocytes) > 1% indicates that a LEFT SHIFT is Present. Performed By: #### L 501.5200, L500.2500, L501.2300, L100.0100 ####[facility] [address] [place], [address] Lymphocytes/100 WBC (Bld) 13.8 % Low 19-41 [facility] Comment on above: Performed By: #### L 501.5200, L500.2500, L501.2300, L100.0100 ####[facility] [address] [place], [address] MCH (RBC) [Entitic mass] 30.1 pg Normal 27.0-32.0 [facility] Comment on above: Performed By: #### L 501.5200, L500.2500, L501.2300, L100.0100 ####[facility] [address] [place], [address] MCHC (RBC) [Mass/Vol] 32.5 g/dL Normal 32-36 [facility] Comment on above: Performed By: #### L 501.5200, L500.2500, L501.2300, L100.0100 ####[facility] [address] [place], [address] MCV (RBC) [Entitic vol] 92.6 fL Normal 81-99 [facility] Comment on above: Performed By: #### L 501.5200, L500.2500, L501.2300, L100.0100 ####[facility] [address] [place], [address] Monocytes/100 WBC (Bld) 6.4 % Normal 0-10 [facility] Comment on above: Performed By: #### L 501.5200, L500.2500, L501.2300, L100.0100 ####[facility] [address] [place], [address] Neutrophils/100 WBC (Bld) 78.8 % High 47-70 [facility] Comment on above: Performed By: #### L 501.5200, L500.2500, L501.2300, L100.0100 ####[facility] [address] [place], [address] Nucleated RBC (Bld) [#/Vol] 0 10*3/uL Normal 0-5 [facility] Comment on above: Performed By: #### L 501.5200, L500.2500, L501.2300, L100.0100 ####[facility] [address] [place], [address] Platelet mean volume (Bld) [Entitic vol] 10.6 fL Normal 6.2-12.0 [facility] Comment on above: Performed By: #### L 501.5200, L500.2500, L501.2300, L100.0100 ####[facility] [address] [place], [address] Platelets (Bld) [#/Vol] 185 10*3/uL Normal 150-450 [facility] Comment on above: Performed By: #### L 501.5200, L500.2500, L501.2300, L100.0100 ####[facility] [address] [place], [address] RBC (Bld) [#/Vol] 3.36 10*6/uL Low 4.2-5.4 [facility] Comment on above: Performed By: #### L 501.5200, L500.2500, L501.2300, L100.0100 ####[facility] [address] [place], [address] RDW SD 49.0 fl High 35.1-43.9 [facility] Comment on above: Performed By: #### L 501.5200, L500.2500, L501.2300, L100.0100 ####[facility] [address] [place], [address] WBC (Bld) [#/Vol] 4.9 10*3/uL Normal 4.4-11.0 [facility] Comment on above: Performed By: #### L 501.5200, L500.2500, L501.2300, L100.0100 ####[facility] [address] [place], [address] Magnesiumon 12-06-2024 Magnesium [Mass/Vol] 2.4 mg/dL High 1.5-2.2 [facility] Comment on above: Performed By: #### L 501.5200, L500.2500, L501.2300, L100.0100 ####[facility] [address] [place], [address] Phosphoruson 12-06-2024 Phosphate [Mass/Vol] 1.9 mg/dL Low 2.7-4.5 [facility] Comment on above: Performed By: #### L 501.5200, L500.2500, L501.2300, L100.0100 ####[facility] [address] [place], [address] Basic Metabolic Profile (BMP )on 12-05-2024 BUN/CRE 21.8 RATIO High 10-20 [facility] Comment on above: Performed By: #### L 501.2300, L100.0100, L500.2500, L501.5200 ####[facility] [address] [place], [address] Calcium [Mass/Vol] 8.2 mg/dL Normal 7.6-11.0 [facility] Comment on above: Performed By: #### L 501.2300, L100.0100, L500.2500, L501.5200 ####[facility] [address] [place], [address] Chloride [Moles/Vol] 113 mmol/L High 98-108 [facility] Comment on above: Performed By: #### L 501.2300, L100.0100, L500.2500, L501.5200 ####[facility] [address] [place], [address] CO2 [Moles/Vol] 15.4 mmol/L Low 21.0-32.0 [facility] Comment on above: Performed By: #### L 501.2300, L100.0100, L500.2500, L501.5200 ####[facility] [address] [place], [address] Creatinine [Mass/Vol] 0.68 mg/dL Low 0.70-1.20 [facility] Comment on above: Performed By: #### L 501.2300, L100.0100, L500.2500, L501.5200 ####[facility] [address] [place], [address] ECRCL 52.40 ml/min Normal 50-250 [facility] Comment on above: Performed By: #### L 501.2300, L100.0100, L500.2500, L501.5200 ####[facility] [address] [place], [address] GAP 14 Normal 5-15 [facility] Comment on above: Performed By: #### L 501.2300, L100.0100, L500.2500, L501.5200 ####[facility] [address] [place], [address] GFR/1.73 sq M.predicted among non-blacks MDRD (S/P/Bld) [Vol rate/Area] 90 mL/min/{1.73_m2} Normal >60 [facility] Comment on above: Result Comment: mL/m in/1.73m2 CKD-EPI Creatinine Equation (2020) Performed By: #### L 501.2300, L100.0100, L500.2500, L501.5200 ####[facility] [address] [place], [address] Glucose [Mass/Vol] 95 mg/dL Normal 70-99 [facility] Comment on above: Performed By: #### L 501.2300, L100.0100, L500.2500, L501.5200 ####[facility] [address] [place], [address] Potassium [Moles/Vol] 4.5 mmol/L Normal 3.3-5.1 [facility] Comment on above: Performed By: #### L 501.2300, L100.0100, L500.2500, L501.5200 ####[facility] [address] [place], [address] Sodium [Moles/Vol] 142 mmol/L Normal 133-145 [facility] Comment on above: Performed By: #### L 501.2300, L100.0100, L500.2500, L501.5200 ####[facility] [address] [place], [address] Urea nitrogen [Mass/Vol] 15 mg/dL Normal 4-19 [facility] Comment on above: Performed By: #### L 501.2300, L100.0100, L500.2500, L501.5200 ####[facility] [address] [place], [address] CBC W/Diff, Automatedon 04-1 3-2024 Absolute Lymph 0.54 X10 3/uL Low 0.83-4.51 [facility] Comment on above: Performed By: #### L 501.2300, L100.0100, L500.2500, L501.5200 ####[facility] [address] [place], [address] Absolute Neut 8.2 X10 3/uL High 2.0-7.7 [facility] Comment on above: Performed By: #### L 501.2300, L100.0100, L500.2500, L501.5200 ####[facility] [address] [place], [address] Basophils/100 WBC (Bld) 0.1 % Normal 0-1 [facility] Comment on above: Performed By: #### L 501.2300, L100.0100, L500.2500, L501.5200 ####[facility] [address] [place], [address] Eosinophils/100 WBC (Bld) 0.0 % Normal 0-5 [facility] Comment on above: Performed By: #### L 501.2300, L100.0100, L500.2500, L501.5200 ####[facility] [address] [place], [address] Erythrocyte distribution width (RBC) [Ratio] 14.3 % Normal 11.6-14.6 [facility] Comment on above: Performed By: #### L 501.2300, L100.0100, L500.2500, L501.5200 ####[facility] [address] [place], [address] Hematocrit (Bld) [Volume fraction] 37.1 % Normal 37-47 [facility] Comment on above: Performed By: #### L 501.2300, L100.0100, L500.2500, L501.5200 ####[facility] [address] [place], [address] Hemoglobin (Bld) [Mass/Vol] 11.6 g/dL Low 12.0-15.0 [facility] Comment on above: Performed By: #### L 501.2300, L100.0100, L500.2500, L501.5200 ####[facility] [address] [place], [address] IG% 0.600 Normal 0.0-0.9 [facility] Comment on above: Result Comment: IG% - Immature Granulocytes (promyelocytes, myelocytes and metamyelocytes) > 1% indicates that a LEFT SHIFT is Present. Performed By: #### L 501.2300, L100.0100, L500.2500, L501.5200 ####[facility] [address] [place], [address] Lymphocytes/100 WBC (Bld) 5.8 % Low 19-41 [facility] Comment on above: Performed By: #### L 501.2300, L100.0100, L500.2500, L501.5200 ####[facility] [address] [place], [address] MCH (RBC) [Entitic mass] 29.7 pg Normal 27.0-32.0 [facility] Comment on above: Performed By: #### L 501.2300, L100.0100, L500.2500, L501.5200 ####[facility] [address] [place], [address] MCHC (RBC) [Mass/Vol] 31.3 g/dL Low 32-36 [facility] Comment on above: Performed By: #### L 501.2300, L100.0100, L500.2500, L501.5200 ####[facility] [address] [place], [address] MCV (RBC) [Entitic vol] 94.9 fL Normal 81-99 [facility] Comment on above: Performed By: #### L 501.2300, L100.0100, L500.2500, L501.5200 ####[facility] [address] [place], [address] Monocytes/100 WBC (Bld) 5.7 % Normal 0-10 [facility] Comment on above: Performed By: #### L 501.2300, L100.0100, L500.2500, L501.5200 ####[facility] [address] [place], [address] Neutrophils/100 WBC (Bld) 87.8 % High 47-70 [facility] Comment on above: Performed By: #### L 501.2300, L100.0100, L500.2500, L501.5200 ####[facility] [address] [place], [address] Nucleated RBC (Bld) [#/Vol] 0 10*3/uL Normal 0-5 [facility] Comment on above: Performed By: #### L 501.2300, L100.0100, L500.2500, L501.5200 ####[facility] [address] [place], [address] Platelet mean volume (Bld) [Entitic vol] 11.3 fL Normal 6.2-12.0 [facility] Comment on above: Performed By: #### L 501.2300, L100.0100, L500.2500, L501.5200 ####[facility] [address] [place], [address] Platelets (Bld) [#/Vol] 189 10*3/uL Normal 150-450 [facility] Comment on above: Performed By: #### L 501.2300, L100.0100, L500.2500, L501.5200 ####[facility] [address] [place], [address] RBC (Bld) [#/Vol] 3.91 10*6/uL Low 4.2-5.4 [facility] Comment on above: Performed By: #### L 501.2300, L100.0100, L500.2500, L501.5200 ####[facility] [address] [place], [address] RDW SD 49.2 fl High 35.1-43.9 [facility] Comment on above: Performed By: #### L 501.2300, L100.0100, L500.2500, L501.5200 ####[facility] [address] [place], [address] WBC (Bld) [#/Vol] 9.4 10*3/uL Normal 4.4-11.0 [facility] Comment on above: Performed By: #### L 501.2300, L100.0100, L500.2500, L501.5200 ####[facility] [address] [place], [address] Magnesiumon 12-05-2024 Magnesium [Mass/Vol] 2.5 mg/dL High 1.5-2.2 [facility] Comment on above: Performed By: #### L 501.2300, L100.0100, L500.2500, L501.5200 ####[facility] [address] [place], [address] Phosphoruson 12-05-2024 Phosphate [Mass/Vol] 3.4 mg/dL Normal 2.7-4.5 [facility] Comment on above: Performed By: #### L 501.2300, L100.0100, L500.2500, L501.5200 ####[facility] [address] [place], [address] Abdomen/Pelvis WITH Contrast on 12-04-2024 Abdomen/Pelvis WITH Contrast [facility] Imaging Services [address] [place] [address] Abdomen/Pelvis WITH Contrast MR#: [id number] Acct: [id number] Name: GERMANIA DONIS Rep #: [id number] : 1945 F 79 From: Kaila Choi nd, [place] PCP: Dr. Sowmya Cabrera MD Status: [facility] ER Study: Abdomen/Pelvis WITH Contrast Date of Exam: 08/18 Exam# [id number] Ordering Dr: Pardeep Naranjo DO PROCEDURE: ABDOMEN/PELVIS [...] at 10:34 a.m. on 12/04/2024. Reading Location: [facility] CC: Dr. Sowmya Cabrera MD; Dr. Pardeep Naranjo DO [employer] Representative: Signed Normal [facility] Absolute neutrophil countOrd ered By: Pardeep Naranjo on 12-04-2024 Neutrophils (Bld) [#/Vol] 6.2 10*3/uL 2.0-7.7 [facility] Anion gap in Serum or Plasma Ordered By: Pardeep Naranjo on 12-04-2024 Anion gap [Moles/Vol] 10 mmol/L 5-15 [facility] BUN/creatinine ratioOrdered By: Pardeep Naranjo on 12-04-2024 Urea nitrogen/Creatinine [Mass ratio] 23.5 mg/mg High 10-20 [facility] Basic Metabolic Profile (BMP )on 12-04-2024 BUN/CRE 23.5 RATIO High 10-20 [facility] Comment on above: Performed By: #### L 500.3400, L501.2450, L500.2500, L100.0100 ####[facility] [address] [place], [address] Calcium [Mass/Vol] 9.0 mg/dL Normal 7.6-11.0 [facility] Comment on above: Performed By: #### L 500.3400, L501.2450, L500.2500, L100.0100 ####[facility] [address] [place], [address] Chloride [Moles/Vol] 101 mmol/L Normal 98-108 [facility] Comment on above: Performed By: #### L 500.3400, L501.2450, L500.2500, L100.0100 ####[facility] [address] [place], [address] CO2 [Moles/Vol] 24.3 mmol/L Normal 21.0-32.0 [facility] Comment on above: Performed By: #### L 500.3400, L501.2450, L500.2500, L100.0100 ####[facility] [address] [place], [address] Creatinine [Mass/Vol] 0.72 mg/dL Normal 0.70-1.20 [facility] Comment on above: Performed By: #### L 500.3400, L501.2450, L500.2500, L100.0100 ####[facility] [address] [place], [address] ECRCL 52.40 ml/min Normal 50-250 [facility] Comment on above: Performed By: #### L 500.3400, L501.2450, L500.2500, L100.0100 ####[facility] [address] [place], [address] GAP 10 Normal 5-15 [facility] Comment on above: Performed By: #### L 500.3400, L501.2450, L500.2500, L100.0100 ####[facility] [address] [place], [address] GFR/1.73 sq M.predicted among non-blacks MDRD (S/P/Bld) [Vol rate/Area] 86 mL/min/{1.73_m2} Normal >60 [facility] Comment on above: Result Comment: mL/m in/1.73m2 CKD-EPI Creatinine Equation (2020) Performed By: #### L 500.3400, L501.2450, L500.2500, L100.0100 ####[facility] [address] [place], [address] Glucose [Mass/Vol] 98 mg/dL Normal 70-99 [facility] Comment on above: Performed By: #### L 500.3400, L501.2450, L500.2500, L100.0100 ####[facility] [address] [place], [address] Potassium [Moles/Vol] 4.5 mmol/L Normal 3.3-5.1 [facility] Comment on above: Performed By: #### L 500.3400, L501.2450, L500.2500, L100.0100 ####[facility] [address] [place], [address] Sodium [Moles/Vol] 135 mmol/L Normal 133-145 [facility] Comment on above: Performed By: #### L 500.3400, L501.2450, L500.2500, L100.0100 ####[facility] [address] [place], [address] Urea nitrogen [Mass/Vol] 17 mg/dL Normal 4-19 [facility] Comment on above: Performed By: #### L 500.3400, L501.2450, L500.2500, L100.0100 ####[facility] [address] [place], [address] Basophil percentageOrdered B y: Pardeep Naranjo on 12-04-2024 Basophils/100 WBC (Bld) 0.1 % 0-1 [facility] Bilirubin Test strip Ql (U)O rdered By: Pardeep Naranjo on 12-04-2024 Bilirubin Ql (U) Negative Negative [facility] Bilirubin directOrdered By: Pardeep Naranjo on 12-04-2024 Bilirubin.direct [Mass/Vol] 0.28 mg/dL 0.00-0.30 [facility] Bilirubin, totalOrdered By: Pardeep Naranjo on 12-04-2024 Bilirubin [Mass/Vol] 0.59 mg/dL 0.00-1.30 [facility] CBC W/Diff, Automatedon 11-23 Absolute Lymph 0.71 X10 3/uL Low 0.83-4.51 [facility] Comment on above: Performed By: #### L 500.3400, L501.2450, L500.2500, L100.0100 ####[facility] [address] [place], [address] Absolute Neut 6.2 X10 3/uL Normal 2.0-7.7 [facility] Comment on above: Performed By: #### L 500.3400, L501.2450, L500.2500, L100.0100 ####[facility] [address] [place], [address] Basophils/100 WBC (Bld) 0.1 % Normal 0-1 [facility] Comment on above: Performed By: #### L 500.3400, L501.2450, L500.2500, L100.0100 ####[facility] [address] [place], [address] Eosinophils/100 WBC (Bld) 0.3 % Normal 0-5 [facility] Comment on above: Performed By: #### L 500.3400, L501.2450, L500.2500, L100.0100 ####[facility] [address] [place], [address] Erythrocyte distribution width (RBC) [Ratio] 14.0 % Normal 11.6-14.6 [facility] Comment on above: Performed By: #### L 500.3400, L501.2450, L500.2500, L100.0100 ####[facility] [address] [place], [address] Hematocrit (Bld) [Volume fraction] 37.1 % Normal 37-47 [facility] Comment on above: Performed By: #### L 500.3400, L501.2450, L500.2500, L100.0100 ####[facility] [address] [place], [address] Hemoglobin (Bld) [Mass/Vol] 12.2 g/dL Normal 12.0-15.0 [facility] Comment on above: Performed By: #### L 500.3400, L501.2450, L500.2500, L100.0100 ####[facility] [address] [place], [address] IG% 0.400 Normal 0.0-0.9 [facility] Comment on above: Result Comment: IG% - Immature Granulocytes (promyelocytes, myelocytes and metamyelocytes) > 1% indicates that a LEFT SHIFT is Present. Performed By: #### L 500.3400, L501.2450, L500.2500, L100.0100 ####[facility] [address] [place], [address] Lymphocytes/100 WBC (Bld) 9.5 % Low 19-41 [facility] Comment on above: Performed By: #### L 500.3400, L501.2450, L500.2500, L100.0100 ####[facility] [address] [place], [address] MCH (RBC) [Entitic mass] 29.7 pg Normal 27.0-32.0 [facility] Comment on above: Performed By: #### L 500.3400, L501.2450, L500.2500, L100.0100 ####[facility] [address] [place], [address] MCHC (RBC) [Mass/Vol] 32.9 g/dL Normal 32-36 [facility] Comment on above: Performed By: #### L 500.3400, L501.2450, L500.2500, L100.0100 ####[facility] [address] [place], [address] MCV (RBC) [Entitic vol] 90.3 fL Normal 81-99 [facility] Comment on above: Performed By: #### L 500.3400, L501.2450, L500.2500, L100.0100 ####[facility] [address] [place], [address] Monocytes/100 WBC (Bld) 6.5 % Normal 0-10 [facility] Comment on above: Performed By: #### L 500.3400, L501.2450, L500.2500, L100.0100 ####[facility] [address] [place], [address] Neutrophils/100 WBC (Bld) 83.2 % High 47-70 [facility] Comment on above: Performed By: #### L 500.3400, L501.2450, L500.2500, L100.0100 ####[facility] [address] [place], [address] Nucleated RBC (Bld) [#/Vol] 0 10*3/uL Normal 0-5 [facility] Comment on above: Performed By: #### L 500.3400, L501.2450, L500.2500, L100.0100 ####[facility] [address] [place], [address] Platelet mean volume (Bld) [Entitic vol] 10.9 fL Normal 6.2-12.0 [facility] Comment on above: Performed By: #### L 500.3400, L501.2450, L500.2500, L100.0100 ####[facility] [address] [place], [address] Platelets (Bld) [#/Vol] 182 10*3/uL Normal 150-450 [facility] Comment on above: Performed By: #### L 500.3400, L501.2450, L500.2500, L100.0100 ####[facility] [address] [place], [address] RBC (Bld) [#/Vol] 4.11 10*6/uL Low 4.2-5.4 [facility] Comment on above: Performed By: #### L 500.3400, L501.2450, L500.2500, L100.0100 ####[facility] [address] [place], [address] RDW SD 46.5 fl High 35.1-43.9 [facility] Comment on above: Performed By: #### L 500.3400, L501.2450, L500.2500, L100.0100 ####[facility] [address] [place], [address] WBC (Bld) [#/Vol] 7.4 10*3/uL Normal 4.4-11.0 [facility] Comment on above: Performed By: #### L 500.3400, L501.2450, L500.2500, L100.0100 ####[facility] [address], [address] Carbon dioxide, total [Moles /volume] in Central venous bloodOrdered By: Pardeep Naranjo on 12-04-2024 CO2 [Moles/Vol] 24.3 mmol/L 21.0-32.0 [facility] Chloride assayOrdered By: Asher Naranjo on 12-04-2024 Chloride [Moles/Vol] 101 mmol/L 98-108 [facility] Emergency Department Summary on 12-04-2024 Emergency Department Summary [facility] Medical Records Department [address] [place] [address] Emergency Department Summary 12/04/24 MR#: [id number] Acct: [id number] Name: GERMANIA DONIS Rep #: [id number] : 1945 79 From: Pardeep Naranjo DO PCP: Dr. Sowmya Cabrera MD [id number] - GI History of Present [...] 100 mcg PO QDAY 09/27/24 11/03/24 History rqvrgfhy-felzavri-kgqz c acid 240 1 tab PO DAILY 09/27/24 11/03/24 H istory mcg-vit K1 150 mcg-herb 357 tablet (Alive Women's 50 Plus Ultra Multivitamin) vitamins A,C,C-rerq-ollbhs 4,296 1 cap PO BID 09/27/24 11/03/24 [...] intact bilate (more content not included)... Normal [facility] Eosinophil percentageOrdered By: Pardeep Naranjo on 12-04-2024 Eosinophils/100 WBC (Bld) 0.3 % 0-5 [facility] Epithelial cells.squamous LM Ql (Urine sed)Ordered By: Pardeep Naranjo on 12-04-2024 Epithelial cells.squamous LM.HPF (Urine sed) [#/Area] 0 /[HPF] 5-10 [facility] Erythrocyte distribution wid th (RBC) [Ratio]Ordered By: Pardeep Naranjo on 12-04-2024 Erythrocyte distribution width (RBC) [Entitic vol] 46.5 fL High 35.1-43.9 [facility] Erythrocyte distribution wid th ratioOrdered By: Pardeep Naranjo on 12-04-2024 Erythrocyte distribution width (RBC) [Ratio] 14.0 % 11.6-14.6 [facility] Estimation of creatinine nora aranceOrdered By: Pardeep Naranjo on 12-04-2024 Estimated Creatinine Clearance Calc 52.40 ml/min 50-250 [facility] GFR/1.73 sq M.predicted [place] g non-blacks MDRD (S/P/Bld) [Vol rate/Area]Ordered By: Pardeep Naranjo on 12-04-2024 Estimated GFR (MDRD) Non-Af Amer 86 >60 [facility] Health Comment on above: mL/min/1.73m2 CKD-EP I Creatinine Equation (2020) Glucose Ql (U)Ordered By: Asher Naranjo on 12-04-2024 Urine Glucose (UA) Normal mg/dl Normal [facility] Hematocrit Auto (Bld) [Volum e fraction]Ordered By: Pardeep Naranjo on 12-04-2024 Hematocrit (Bld) [Volume fraction] 37.1 % 37-47 [facility] Hemoglobin measurementOrdere d By: Pardeep Naranjo on 12-04-2024 Hemoglobin (Bld) [Mass/Vol] 12.2 g/dL 12.0-15.0 [facility] Immature granulocytes/100 WB C Auto (Bld)Ordered By: Pardeep Naranjo on 12-04-2024 Immature granulocytes/100 WBC (Bld) 0.400 % 0.0-0.9 [facility] Comment on above: IG% - Immature Granu locytes (promyelocytes, myelocytes and metamyelocytes) > 1% indicates that a LEFT SHIFT is Present. Ketones Test strip Ql (U)Ord ered By: Pardeep Naranjo on 12-04-2024 Ketones Ql (U) 15 mg/dl High Negative [facility] Laboratory - Chemistry and C hemistry - challengeOrdered By: Pardeep Naranjo on 12-04-2024 AST [Catalytic activity/Vol] 39 U/L High <32 [facility] Lipaseon 12-04-2024 Lipase [Catalytic activity/Vol] 31 U/L Normal 13-75 [facility] Comment on above: Result Comment: Con greco note: LIPASE revised reference range effective 22. New Lipase methodology. Expected to produce lower values than the previous assay method. NEW Reference Range: 13 - 75 U/L Performed By: #### L 500.3400, L501.2450, L500.2500, L100.0100 ####[facility] [address] [place], [address] Lipase measurementOrdered By : Pardeep Naranjo on 12-04-2024 Lipase [Catalytic activity/Vol] 31 U/L 13-75 [facility] Comment on above: Please note:LIPASE r evised reference range effective 22. New Lipase methodology. Expected to produce lower values than the previous assay method. NEW Reference Range: 13 - 75 U/L Liver Profileon 12-04-2024 Albumin [Mass/Vol] 3.5 g/dL Normal 3.4-4.8 [facility] Comment on above: Performed By: #### L 500.3400, L501.2450, L500.2500, L100.0100 ####[facility] [address] [place], [address] ALK PHOS 110 U/L High 35-104 [facility] Comment on above: Performed By: #### L 500.3400, L501.2450, L500.2500, L100.0100 ####[facility] [address] [place], [address] ALT [Catalytic activity/Vol] 32 U/L Normal <=34 [facility] Comment on above: Performed By: #### L 500.3400, L501.2450, L500.2500, L100.0100 ####[facility] [address] [place], [address] AST [Catalytic activity/Vol] 39 U/L High <=31 [facility] Comment on above: Performed By: #### L 500.3400, L501.2450, L500.2500, L100.0100 ####[facility] [address] [place], [address] Bilirubin [Mass/Vol] 0.59 mg/dL Normal 0.00-1.30 [facility] Comment on above: Performed By: #### L 500.3400, L501.2450, L500.2500, L100.0100 ####[facility] [address] [place], [address] Bilirubin.direct [Mass/Vol] 0.28 mg/dL Normal 0.00-0.30 [facility] Comment on above: Performed By: #### L 500.3400, L501.2450, L500.2500, L100.0100 ####[facility] [address] [place], [address] Globulin (S) [Mass/Vol] 3.4 g/dL Normal 2.2-4.2 [facility] Comment on above: Performed By: #### L 500.3400, L501.2450, L500.2500, L100.0100 ####[facility] [address] [place], [address] T PROT 6.9 g/dL Normal 5.9-8.4 [facility] Comment on above: Performed By: #### L 500.3400, L501.2450, L500.2500, L100.0100 ####[facility] [address] [place], [address] Lymphocytes Auto (Unsp spec) [#/Vol]Ordered By: Pardeep Naranjo on 12-04-2024 Lymphocytes (Bld) [#/Vol] 0.71 10*3/uL Low 0.83-4.51 [facility] Lymphocytes/100 WBC Auto (Un sp spec)Ordered By: Pardeep Naranjo on 12-04-2024 Lymphocytes/100 WBC (Bld) 9.5 % Low 19-41 [facility] MCV (mean corpuscular volume ) determinationOrdered By: Pardeep Naranjo on 12-04-2024 MCV (RBC) [Entitic vol] 90.3 fL 81-99 [facility] MR/POSTOP.ANEon 12-04-2024 MR/POSTOP.ANE [facility] Medical Records Department [address] [place] [address] Anesthesia Postop Eval I 12/04/241456 MR#: [id number] Acct: [id number] Name: GERMANIA DONIS Rep #: [id number] : 1945 79 From: Pardeep Pierre MD PCP: Dr. Sowmya Cabrera MD Status:ADM IN Y Race: C Location: [place] [id number] Anesthesia: Postop Eval I Current Vital Signs [...] completed: Yes 12/04/241458 Date Pardeep Pierre MD Cosigner Signature: Date CC: Signed Normal [facility] MR/VRCULRSI9io 12-04-2024 [facility] Medical Records Department [address] [place] [address] Anesthesia Postop Eval II 12/04/241458 MR#: [id number] Acct: [id number] Name: GERMANIA DONIS Rep #: [id number] : 1945 79 From: Pardeep Pierre MD PCP: Dr. Sowmya Cabrera MD Status:ADM IN Y Race: C Location: [place]3 [id number] Anesthesia Postop Eval I Sum Postop Eval [...] MD Cosigner Signature: Date CC: Signed Normal [facility] Mean corpuscular hemoglobin (MCH) determinationOrdered By: Pardeep Naranjo on 12-04-2024 MCH (RBC) [Entitic mass] 29.7 pg 27.0-32.0 [facility] Mean corpuscular hemoglobin concentration (MCHC) determinationOrdered By: Pardeep Naranjo on 12-04-2024 MCHC (RBC) [Mass/Vol] 32.9 g/dL 32-36 [facility] Mean platelet volume determi nationOrdered By: Pardeep Naranjo on 12-04-2024 Platelet mean volume (Bld) [Entitic vol] 10.9 fL 6.2-12.0 [facility] Microscopic analysis of urin e for red blood cells (RBC)Ordered By: Pardeep Naranjo on 12-04-2024 Microscopic analysis of urine for red blood cells (RBC) 0 SEEN /hpf 0-5 [facility] Urine RBC 0 SEEN /hpf 0-5 [facility] Monocyte percentageOrdered B y: Pardeep Naranjo on 12-04-2024 Monocytes/100 WBC (Bld) 6.5 % 0-10 [facility] Mucus LM Ql (Urine sed)Order ed By: Pardeep Naranjo on 12-04-2024 Mucus Ql (Urine sed) RARE /hpf [facility] Neutrophil percentageOrdered By: Pardeep Naranjo on 12-04-2024 Neutrophils/100 WBC (Bld) 83.2 % High 47-70 [facility] Nitrite Test strip Ql (U)Ord ered By: Pardeep Naranjo on 12-04-2024 Nitrite Ql (U) Negative Negative [facility] Nucleated red blood cell per centageOrdered By: Pardeep Naranjo on 12-04-2024 Nucleated RBC/100 WBC (Bld) [Ratio] 0 % 0-5 [facility] Operative Reporton Operative Report [facility] Medical Records Department [address] [place] [address] Operative Report 12/04/24 1434 MR#: [id number] Acct: [id number] Name: GERMANIA DONIS Rep #: [id number] : 1945 79 From: Darrick Light MD PCP: Dr. 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 Using atraumatic graspers and a suction speed belt sander tender device I bluntly teased a perforated small [...] field labeled small bowel. Then a standard lpvk-cg-asap functional end-to-end small bowel anastomosis was created with a third firing of the GRACIE stapler. The common enterotomy was closed with a firing of a TX 60 stapler. The resulting staple line was largely hemostatic but was imbricated with a running 3-0 silk suture. Mesenteric defect was closed with a second running 3-0 silk suture. Finally a (more content not included)... Normal [facility] Platelet countOrdered By: Asher Naranjo on 12-04-2024 Platelets (Bld) [#/Vol] 182 10*3/uL 150-450 [facility] Potassium (Unsp spec) [Mass/ Vol]Ordered By: Pardeep Naranjo on 04-12-2025 Potassium [Moles/Vol] 4.5 mmol/L 3.3-5.1 [facility] Protein Test strip Ql (U)Ord ered By: Pardeep Naranjo on 12-04-2024 Protein Ql (U) 15 mg/dl High Negative [facility] RBC Auto (Bld) [#/Vol]Ordere d By: Pardeep Naranjo on 12-04-2024 RBC (Bld) [#/Vol] 4.11 10*6/uL Low 4.2-5.4 [facility] Serum creatinine measurement (mass/volume)Ordered By: Pardeep Naranjo on 12-04-2024 Creatinine [Mass/Vol] 0.72 mg/dL 0.70-1.20 [facility] Serum globulin measurementOr dered By: Pardeep Naranjo on 12-04-2024 Globulin (S) [Mass/Vol] 3.4 g/dL 2.2-4.2 [facility] Serum glucose measurement (m ass/volume)Ordered By: Pardeep Naranjo on 12-04-2024 Glucose [Mass/Vol] 98 mg/dL 70-99 [facility] Serum or plasma alanine eastman otransferase (ALT) measurementOrdered By: Pardeep Naranjo on 12-04-2024 ALT [Catalytic activity/Vol] 32 U/L <35 [facility] Serum or plasma albumin demetrice urement (mass/volume)Ordered By: Pardeep Naranjo on 12-04-2024 Albumin [Mass/Vol] 3.5 g/dL 3.4-4.8 [facility] Serum or plasma alkaline dedrick sphatase measurementOrdered By: Pardeep Naranjo on 12-04-2024 ALP [Catalytic activity/Vol] 110 U/L High 35-104 [facility] Serum or plasma calcium demetrice urement (mass/volume)Ordered By: Pardeep Naranjo on 12-04-2024 Calcium [Mass/Vol] 9.0 mg/dL 7.6-11.0 [facility] Serum or plasma urea nitroge n measurement (mass/volume)Ordered By: Pardeep Naranjo on 12-04-2024 Urea nitrogen [Mass/Vol] 17 mg/dL 4-19 [facility] Sodium levelOrdered By: Kelvin Naranjo on 12-04-2024 Sodium [Moles/Vol] 135 mmol/L 133-145 [facility] Squamous epithelial cells de tection in urine sediment by light microscopyOrdered By: Pardeep Naranjo on 12-04-2024 Epithelial cells.squamous LM Ql (Urine sed) 0-5 SEEN /hpf 5-10 [facility] Surgery Specimen Level Von 0 12-04-2024 Surgery Specimen Level V ------- ---- Patient Age/Sex Location Account Attending Physician ---- GERMANIA DONIS 79/F MS3 [id number] Dr. Darrick Light MD ---- Specimen: [id number] Received: 12/06/24 Status: PEG Mantilla Num: [id number] Spec Type: COLON Subm Dr: Dr. Darrick [...] No distinct mass-like lesion is grossly recognized. 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 Opposing margins, en faceA3. Full-thickness section with transmural defectA4-5. Mucosa from outpouching and out-pouch to normal mucosa [facility] 12/13/2024 [facility]:[address] ---- Patient Age/Sex Location Account Attending Physician ---- JEWELSGERMANIA BAUMANN 79/F [place]3 [id number] Dr. Darrick Light MD ---- Signed (signature on file) Dr. Prerna Rush MD 12/13/24 1407 ---- Normal [facility] Comment on above: Performed By: #### P SUV ####[facility] [address], [address] Total proteinOrdered By: Prosper Naranjo on 12-04-2024 Protein [Mass/Vol] 6.9 g/dL 5.9-8.4 [facility] Urinalysis, Completeon 12-04 BACTERIA 1+ /hpf Normal None Seen [facility] Comment on above: Order Comment: CLEAN CATCH Performed By: #### L 400.0001 ####[facility] [address] [place], [address] EPI,SQUAMOUS 0-5 SEEN Normal 5-10 [facility] Comment on above: Order Comment: CLEAN CATCH Performed By: #### L 400.0001 ####[facility] [address] [place], [address] Mucus Ql (Urine sed) RARE Normal [facility] Comment on above: Order Comment: CLEAN CATCH Performed By: #### L 400.0001 ####[facility] [address] [facility] [address] WBC 0-5 SEEN Normal 0-5 [facility] Comment on above: Order Comment: CLEAN CATCH Performed By: #### L 400.0001 ####[facility] [address] [place], [place], [address] RBC 0 SEEN Normal 0-5 [facility] Comment on above: Order Comment: CLEAN CATCH Performed By: #### L 400.0001 ####[facility] [address] [place], [place], [address] Urine blood detectionOrdered By: Pardeep Naranjo on 12-04-2024 Urine Occult Blood Negative Negative [facility] Urine clarityOrdered By: Prosper Naranjo on 12-04-2024 Clarity (U) Sl. Cloudy Clear [facility] Urine color determinationOrd ered By: Pardeep Naranjo on 12-04-2024 Color (U) Yellow Yellow [facility] Urine glucose detectionOrder ed By: Pardeep Naranjo on 12-04-2024 Glucose Ql (U) Normal mg/dl Normal [facility] Urine leukocyte esterase det ection by dipstickOrdered By: Pardeep Naranjo on 12-04-2024 Leukocyte esterase Test strip Ql (U) 25 /ul High Negative [facility] Urine pHOrdered By: Pardeep washburn on 12-04-2024 pH (U) 6.0 [pH] 5.0 - 8.0 [facility] Urine sediment bacteria coun t by microscopy (number/high power field)Ordered By: Pardeep Naranjo on 12-04-2024 Bacteria LM.HPF (Urine sed) [#/Area] 1 /[HPF] None Seen [facility] Urine specific gravity measu rementOrdered By: Pardeep Naranjo on 12-04-2024 Specific gravity (U) [Rel density] 1.010 1.002-1.030 [facility] Urine urobilinogen measureme ntOrdered By: Pardeep Naranjo on 12-04-2024 Urobilinogen Ql (U) Normal mg/dl Normal [facility] Urobilinogen Ql (U)Ordered B y: Pardeep Naranjo on 12-04-2024 Urine Urobilinogen Normal mg/dl Normal [facility] White blood cell (WBC) count Ordered By: Pardeep Naranjo on 12-04-2024 WBC (Bld) [#/Vol] 7.4 10*3/uL 4.4-11.0 [facility] White blood cell countOrdere d By: Pardeep Naranjo on 12-04-2024 Urine WBC 0-5 SEEN /hpf 0-5 [facility] White blood cell count 0-5 SEEN /hpf 0-5 [facility] Surgery Visit Reporton 11-19 Surgery Visit Report [facility] [address] [place] [address] OFFICE VISIT Date of Service: 11/19/24 MR#: [id number] Acct: [id number] Name: GERMANIA DONIS Rep #: [id number] : 1945 Provider: Dr. Shelly louise MD Age/Sex: 79/F Location: [facility] Status: Signed Intake Vital Signs 11/04/24 [...] 100 mcg PO QDAY 09/27/24 11/04/24 History tmdmafpw-fpbygldd-nbsz c acid 240 1 tab PO DAILY 09/27/24 11/04/24 H istory mcg-vit K1 150 mcg-herb 357 tablet (Alive Women's 50 Plus Ultra Multivitamin) vitamins A,C,Y-axvf-mzglfv 4,296 1 cap PO BID 09/27/24 11/04/24 [...] History (Updated 11/19/24 @ 10:14 by Milli Dhalwial LPN) Umbilical hernia Wears glasses Wears partial [...] is agreeable plan. Shelly Leonard M.D. Pager: [phone] [facility] [address] [place] [address], Outpatient [place], [address] [place], [place] [address] Office: [phone] 11/22/24 0759 Date [facility] Leonard MD [facility] Signature: Date (if applicable) CC: Dr. Sowmya Cabrera MD Normal [facility] Discharge Instructionon 10-23 Discharge Instruction [facility] Medical Records Department [address] [place] [address] Instructions for Home/Discharge Instructions 11/04/24 0808 MR#: [id number] Acct: [id number] Name: GERMANIA DONIS Rep #: [id number] : 1945 79 From: Shelly Leonard MD PCP: Dr. Sowmya Cabrera MD Status:REG [facility] Discharge Instructions Diet Discharge Diet: Light diet [...] 5 PM and on the weekends call [phone] with any concerns. Test Results: Test results [...] the other half the bottle. Print Language: Mongolian Discharge Orders/Prescriptions Prescriptions: New oxycodone 5 mg [...] CC: Dr. Sowmya Cabrera MD Signed Normal [facility] H AND P Exam - Surgicalon H&P Exam - Surgical [facility] Medical Records Department [address] [place] [address] H P Exam - Surgical 11/04/24 0717 MR#: [id number] Acct: [id number] Name: GERMANIA DONIS Rep #: [id number] : 1945 79 From: Shelly Leonard MD PCP: Dr. Sowmya Cabrera MD Status:[facility] Location: [place] [address] HPI - General General Date of Service: [...] 100 mcg PO QDAY 09/27/24 11/03/24 History pvicotdu-fnksmcte-isvp c acid 240 1 tab PO DAILY 09/27/24 11/03/24 H istory mcg-vit K1 150 mcg-herb 357 tablet (Alive Women's 50 Plus Ultra Multivitamin) vitamins A,C,Q-utxt-rhmzcq 4,296 1 cap PO BID 09/27/24 11/03/24 [...] further questions time. Shelly Leonard M.D. Pager: [phone] [facility] [address] [place] [address], [facility] [address] [place] [address] Office: [phone] 11/04/24 0719 Cosigner Signature (if applicable): CC: Dr. Sowmya Cabrera MD; Dr. Shelly Leonard MD Signed [facility] MR/POSTOP.ANEon 11-04-2024 MR/POSTOP.[facility] Medical Records Department [address] [place] [address] Anesthesia Postop Eval I 11/04/24 0833 MR#: [id number] Acct: [id number] Name: GERMANIA DONIS Rep #: [id number] : 1945 79 From: Cyrus Leung CRNA PCP: Dr. Sowmya Cabrera MD Status:[facility] Y Race: C Location: [place] [address] Anesthesia: Postop Eval I Current Vital Signs Temperature: 98.4 F Pulse Rate: 76 Blood Pressure: 86/53 Respiratory Rate: 18 Pulse Ox: 98 Oxygen Delivery Method: Room Air Assessment Airway patent: Yes Spontaneous unlabored respirations: Yes nausea: No Vomiting: No Anesthesia Complication: No Fluid Hydration Crystalloid volume administer (ml): 1,000 Total IV fluid infused: 1,000 Progress Note Anesthesia document: Postop Eval 1 completed: Yes 11/04/2440 Date Cyrus Jain Signature: Date CC: Signed [facility] MR/EFMNITHH2zj 11-04-2024 MR/POSTOPAN2 [facility] Medical Records Department [address] [place] [address] Anesthesia Postop Eval II 11/04/24 1122 MR#: [id number] Acct: [id number] Name: GERMANIA DONIS Rep #: [id number] : 1945 79 From: Man Link MD PCP: Dr. Sowmya Cabrera MD Status:[facility] Y Race: C Location: [facility] Anesthesia Postop Eval I Sum Postop Eval Completion status Anesthesia document: Postop Eval 1 completed: Yes Anesthesia Postop Eval I Summary Anesthesia Postop Eval I Summary: Anesthesia Postop Eval I: Assessment Summary Airway patent Yes 11/04/24 09:40 PLANE TENDER.ACAR Spontaneous unlabored Yes 11/04/24 09:40 PLANE TENDER.ACAR respirations Mental status nausea No 11/04/24 09:40 PLANE TENDER.ACAR Vomiting No 11/04/24 09:40 PLANE TENDER.ACAR Anesthesia Postop Eval I: Fluid Summary Crystalloid volume administer 1,000 11/04/24 09:40 PLANE TENDER.ACAR (ml) Colloids volume administered ( ml) Blood Product volume administered (ml) Total IV fluid infused 1,000 11/04/24 09:40 PLANE TENDER.ACAR Anesthesia Postop Eval I: Summary Notes Anesthesia Complication No 11/04/24 09:40 PLANE TENDER.ACAR Anesthesia Complication Comment: Post-operative progress note Anesthesia: Postop Eval II Evaluation Mental status: Awake Pain Level: 0 nausea: No Vomiting: No Complications Anesthesia Complication: No 11/04/24 1123 Date Man Link MD Cosigner Signature: Date CC: Signed Normal [facility] Operative Reporton Operative Report [facility] Medical Records Department [address] [place] [address] Operative Report 11/04/24 0805 MR#: [id number] Acct: [id number] Name: GERMANIA DONIS Rep #: [id number] : 1945 79 From: Shelly Leonard MD PCP: Dr. Sowmya Cabrera MD Status:[facility] Location: [place] [address] Operative Report (Standard) Operative Information Date of Procedure: 11/04/24 Pre-Operative Diagnosis: Umbilical hernia Post-Operative Diagnosis: Same Surgery/Procedure Performed: Umbilical hernia repair with mesh masking machine operator: Yes Residential Door Unit Installer: Timoteo Ruiz Tasks completed by buyer assistant: Opening closing Type of Anesthesia: General/Supplemental [...] hernia patch 4.3 cm in diameter, Lot [id number] ref [id number] Special Medications: Ancef 2 g IV x [...] The hernia defect was closed with a duwpfu-bg-klcdh 0 Nurolon. The wound was irrigated with [...] MD; Dr. Shelly Leonard MD Signed Normal [facility] TSH DL <= 0.005 mIU/L QnOrde red By: Tito Jensenelbamelvin on 10-28-2024 Thyroid Stimulating Hormone (TSH) 2.500 uIU/mL 0.300-4.200 [facility] TSH Qn 2.500 uIU/mL 0.300-4.200 [facility] Thyroid Stim Hormone (TSH)on 10-28-2024 TSH 2.500 uIU/mL Normal 0.300-4.200 [facility] Comment on above: Performed By: #### L 501.9520 ####[facility] [address] [place], [address] Spine Cervical (Routine)on 0 10-04-2024 Spine Cervical (Routine) [facility] Imaging Services [address] [place], [place] [address] Spine Cervical (Routine) MR#: [id number] Acct: [id number] Name: GERMANIA DONIS Rep #: [id number] : 1945 F 79 From: [facility] PCP: Dr. Sowmya Cabrera MD Status: REG CLI Study: Spine Cervical (Routine) Date of Exam: Exam# [id number] Ordering Dr: Sowmya Cabrera PROCEDURE: SPINE CERVICAL [...] changes are present with severe left and pvvr-vn-aftjjriu right neural foraminal narrowing. 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 Facet/uncovertebral changes are present with severe left and kzin-pa-xdranaph right neural foraminal narrowing. C6-7: Disc osteophyte [...] 2. No abnormal cord signal. Reading Location: [facility] CC: Dr. Sowmya Cabrera MD Credit [employer] Collections Representative: Signed Normal [facility] Surgery Visit Reporton 09-27 Surgery Visit Report [facility] [address] [place] [address]. [address] [place] [address] OFFICE VISIT Date of Service: 09/27/24 MR#: [id number] Acct: [id number] Name: GERMANIA DONIS Rep #: [id number] : 1945 Provider: Dr. Shelly louise MD Age/Sex: 79/F Location: [facility] Status: Signed Intake Vital Signs 09/07/20 [...] 100 mcg PO QDAY 09/27/24 09/27/24 History fhfbdezq-cvceizul-gygb c acid 240 tab PO 09/27/24 09/27/24 History mcg-vit K1 150 mcg-herb 357 tablet (Alive Women's 50 Plus Ultra Multivitamin) valacyclovir 1 gram tablet 1,000 mg PO TID 09/27/24 09/27/24 History vitamins A,C,A-qubc-hwekbn 4,296 1 cap PO BID 09/27/24 09/27/24 [...] healthy appearing, comfortable and no acute distress [facility] Head: normocephalic and atraumatic Neck Neck: [...] Status: Acute (more content not included)... Normal [facility] Re-Evaluation - PT (1)on Re-Evaluation - PT (1) [facility] [address] [place] [address] / REEVALUATION / MEDICARE RECERTIFICATION PHYSICAL THERAPY MR#: [id number] Acct: [id number] Name: GERMANIA DONIS Rep #: [id number] : 1945 79 From: Sary Mejia PT, Cert. MDT Referring Dr.: Dr. Lex Rhoades MD Status:REG RCR Insurance: MEDICARE PART A B [facility] Re-Evaluation Intro: Lex Rhoades MD, [...] 3+/5. R ELBOW 5/5 L 5/5. R CAMERA CONTROL OPERATOR STRENGTH 35 LBS L 32 LBS . [...] tests Balance/Special Test Scores Quick DASH Score: 27.2723 Goals Goals Goal 1:: DECREASE C/O NECK [...] do not hesitate to contact me at [phone] by phone or if you have questions or concerns regarding this new plan of care! Sincerely, Sary Mjeia, PT, Cert MDT 08/12/24 1465 CC: Dr. Lex Rhoades MD; Dr. Sowmya Cabrera MD ALBARO Signed For Medicare only, by signing this I certify the plan of care. Physicians Signature Date Normal [facility] ANTINUCLEAR ANTIBODIES DIREC Ton 07-23-2024 MARYBETH,DIRECT Negative Normal Negative [facility] Comment on above: Order Comment: Order Date: 07/20/24Order Info: [id number] - MARYBETH Result Comment: Perf ormed at: [employer] [facility] [address] [place], [place] [id number] Patient Scheduling Coordinator: Wilder Araya PhD, Phone: [phone] Performed By: #### L 503.0105, L501.9520, L101.9900, L503.6550, L500.4050, L501.5200, L3100.5475, L100.0100, L503.6150 ####[facility] [address] [place], [address] MARYBETH serumOrdered By: Yogi Cabrera on 07-20-2024 Anti-Nuclear Antibody Screen Negative Negative [facility] Comment on above: Performed at: [employer] [facility] [place] [id number] Director: Wilder Araya PhD, Phone: [phone] Absolute neutrophil countOrd ered By: Sowmya Cabrera on 07-20-2024 Neutrophils (Bld) [#/Vol] 3.2 10*3/uL 2.0-7.7 [facility] Albumin to globulin ratioOrd ered By: Sowmya Cabrera on 07-20-2024 Albumin/Globulin [Mass ratio] 1.1 {ratio} 0.9-2.4 [facility] Basophil percentageOrdered B y: Sowmya Cabrera on 07-20-2024 Basophils/100 WBC (Bld) 0.4 % 0-1 [facility] Bilirubin, totalOrdered By: Sowmya Cabrera on 07-20-2024 Bilirubin [Mass/Vol] 0.60 mg/dL 0.20-1.00 [facility] Comment on above: For patients on eltr ombopag therapy, use of Dimension [place] TBIL is not recommended. Blood urea nitrogen (BUN)/cr eatinine ratioOrdered By: Sowmya Cabrera on 07-20-2024 Urea nitrogen/Creatinine [Mass ratio] 22.2 mg/mg High 10-20 [facility] CBC W/Diff, Automatedon 06-26 Absolute Lymph 0.91 X10 3/uL Normal 0.83-4.51 [facility] Comment on above: Order Comment: Order Date: 07/20/24Order Info: 183-08 - CBCDOrder Info: [id number] - SED Performed By: #### L 503.0105, L501.9520, L101.9900, L503.6550, L500.4050, L501.5200, L3100.5475, L100.0100, L503.6150 ####[facility] [address] [place], [place], [id number] Absolute Neut 3.2 X10 3/uL Normal 2.0-7.7 [facility] Comment on above: Order Comment: Order Date: 07/20/24Order Info: 183-08 - CBCDOrder Info: [id number] - SED Performed By: #### L 503.0105, L501.9520, L101.9900, L503.6550, L500.4050, L501.5200, L3100.5475, L100.0100, L503.6150 ####[facility] [address] [place], [address] Basophils/100 WBC (Bld) 0.4 % Normal 0-1 [facility] Comment on above: Order Comment: Order Date: 07/20/24Order Info: 183-08 - CBCDOrder Info: [id number] - SED Performed By: #### L 503.0105, L501.9520, L101.9900, L503.6550, L500.4050, L501.5200, L3100.5475, L100.0100, L503.6150 ####[facility] [address] [place], [address] Eosinophils/100 WBC (Bld) 1.3 % Normal 0-5 [facility] Comment on above: Order Comment: Order Date: 07/20/24Order Info: 018-1 - CBCDOrder Info: [id number] - SED Performed By: #### L 503.0105, L501.9520, L101.9900, L503.6550, L500.4050, L501.5200, L3100.5475, L100.0100, L503.6150 ####[facility] [address] [place], [address] Erythrocyte distribution width (RBC) [Ratio] 13.4 % Normal 11.6-14.6 [facility] Comment on above: Order Comment: Order Date: 07/20/24Order Info: 183- - CBCDOrder Info: [id number] - SED Performed By: #### L 503.0105, L501.9520, L101.9900, L503.6550, L500.4050, L501.5200, L3100.5475, L100.0100, L503.6150 ####[facility] [address] [place], [address] Hematocrit (Bld) [Volume fraction] 39.4 % Normal 37-47 [facility] Comment on above: Order Comment: Order Date: 07/20/24Order Info: 018- - CBCDOrder Info: [id number] - SED Performed By: #### L 503.0105, L501.9520, L101.9900, L503.6550, L500.4050, L501.5200, L3100.5475, L100.0100, L503.6150 ####[facility] [address] [place], [address] Hemoglobin (Bld) [Mass/Vol] 12.8 g/dL Normal 12.0-15.0 [facility] Comment on above: Order Comment: Order Date: 07/20/24Order Info: 01811-23 - CBCDOrder Info: [id number] - SED Performed By: #### L 503.0105, L501.9520, L101.9900, L503.6550, L500.4050, L501.5200, L3100.5475, L100.0100, L503.6150 ####[facility] [address] [place], [address] IG% 0.400 Normal 0.0-0.9 [facility] Comment on above: Order Comment: Order Date: 07/20/24Order Info: 183-08 - CBCDOrder Info: [id number] - SED Result Comment: IG% - Immature Granulocytes (promyelocytes, myelocytes and metamyelocytes) > 1% indicates that a LEFT SHIFT is Present. Performed By: #### L 503.0105, L501.9520, L101.9900, L503.6550, L500.4050, L501.5200, L3100.5475, L100.0100, L503.6150 ####[facility] [address] [place], [address] Lymphocytes/100 WBC (Bld) 20.0 % Normal 19-41 [facility] Comment on above: Order Comment: Order Date: 07/20/24Order Info: [id number] - CBCDOrder Info: 14190-1 - SED Performed By: #### L 503.0105, L501.9520, L101.9900, L503.6550, L500.4050, L501.5200, L3100.5475, L100.0100, L503.6150 ####[facility] [address] [place], [address] MCH (RBC) [Entitic mass] 30.2 pg Normal 27.0-32.0 [facility] Comment on above: Order Comment: Order Date: 07/20/24Order Info: 183-08 - CBCDOrder Info: [id number] - SED Performed By: #### L 503.0105, L501.9520, L101.9900, L503.6550, L500.4050, L501.5200, L3100.5475, L100.0100, L503.6150 ####[facility] [address] [place], [address] MCHC (RBC) [Mass/Vol] 32.5 g/dL Normal 32-36 [facility] Comment on above: Order Comment: Order Date: 07/20/24Order Info: 183-08 - CBCDOrder Info: [id number] - SED Performed By: #### L 503.0105, L501.9520, L101.9900, L503.6550, L500.4050, L501.5200, L3100.5475, L100.0100, L503.6150 ####[facility] [address] [place], [address] MCV (RBC) [Entitic vol] 92.9 fL Normal 81-99 [facility] Comment on above: Order Comment: Order Date: 07/20/24Order Info: 183-08 - CBCDOrder Info: [id number] - SED Performed By: #### L 503.0105, L501.9520, L101.9900, L503.6550, L500.4050, L501.5200, L3100.5475, L100.0100, L503.6150 ####[facility] [address] [place], [address] Monocytes/100 WBC (Bld) 8.1 % Normal 0-10 [facility] Comment on above: Order Comment: Order Date: 07/20/24Order Info: 183-08 - CBCDOrder Info: 84332-1 - SED Performed By: #### L 503.0105, L501.9520, L101.9900, L503.6550, L500.4050, L501.5200, L3100.5475, L100.0100, L503.6150 ####[facility] [address] [place], [address] Neutrophils/100 WBC (Bld) 69.8 % Normal 47-70 [facility] Comment on above: Order Comment: Order Date: 07/20/24Order Info: 183- - CBCDOrder Info: [id number] - SED Performed By: #### L 503.0105, L501.9520, L101.9900, L503.6550, L500.4050, L501.5200, L3100.5475, L100.0100, L503.6150 ####[facility] [address] [place], [address] Nucleated RBC (Bld) [#/Vol] 0 10*3/uL Normal 0-5 [facility] Comment on above: Order Comment: Order Date: 07/20/24Order Info: 183-08 - CBCDOrder Info: 89969-9 - SED Performed By: #### L 503.0105, L501.9520, L101.9900, L503.6550, L500.4050, L501.5200, L3100.5475, L100.0100, L503.6150 ####[facility] [address] [place], [place], [phone](024) Platelet mean volume (Bld) [Entitic vol] 12.0 fL Normal 6.2-12.0 [facility] Comment on above: Order Comment: Order Date: 07/20/24Order Info: 183-08 - CBCDOrder Info: 98085-2 - SED Performed By: #### L 503.0105, L501.9520, L101.9900, L503.6550, L500.4050, L501.5200, L3100.5475, L100.0100, L503.6150 ####[facility] [address] [place], [address] Platelets (Bld) [#/Vol] 216 10*3/uL Normal 150-450 [facility] Comment on above: Order Comment: Order Date: 07/20/24Order Info: 0184-1 - CBCDOrder Info: 02022-9 - SED Performed By: #### L 503.0105, L501.9520, L101.9900, L503.6550, L500.4050, L501.5200, L3100.5475, L100.0100, L503.6150 ####[facility] [address] [place], [address] RBC (Bld) [#/Vol] 4.24 10*6/uL Normal 4.2-5.4 [facility] Comment on above: Order Comment: Order Date: 07/20/24Order Info: 0184-1 - CBCDOrder Info: 47592-0 - SED Performed By: #### L 503.0105, L501.9520, L101.9900, L503.6550, L500.4050, L501.5200, L3100.5475, L100.0100, L503.6150 ####[facility] [address] [place], [address] RDW SD 45.4 fl High 35.1-43.9 [facility] Comment on above: Order Comment: Order Date: 07/20/24Order Info: 0184-1 - CBCDOrder Info: 77321-5 - SED Performed By: #### L 503.0105, L501.9520, L101.9900, L503.6550, L500.4050, L501.5200, L3100.5475, L100.0100, L503.6150 ####[facility] [address] [place], [address] WBC (Bld) [#/Vol] 4.6 10*3/uL Normal 4.4-11.0 [facility] Comment on above: Order Comment: Order Date: 07/20/24Order Info: 0184-1 - CBCDOrder Info: [id number] - SED Performed By: #### L 503.0105, L501.9520, L101.9900, L503.6550, L500.4050, L501.5200, L3100.5475, L100.0100, L503.6150 ####[facility] [address] [place], [place], [id number] Carbon dioxide measurementOr dered By: Sowmya Cabrera on 07-20-2024 CO2 [Moles/Vol] 30.0 mmol/L 21.0-32.0 [facility] Cerv Spine 4 or 5 Viewson Cerv Spine 4 or 5 Views [facility] Imaging Services [address] [place], [place] [address] Cerv Spine 4 or 5 Views MR#: [id number] Acct: [id number] Name: GERMANIA DONIS Rep #: [id number] : 1945 F 79 From: Katie Lara PCP: Dr. Sowmya Cabrera MD Status: REG CLI Study: Cerv Spine 4 or 5 Views Date of Exam: 07/20/24 Exam# [id number] Ordering Dr: Sowmya Cabrera [id number] INDICATION: pain, bilateral shoulder pain EXAMINATION/TECHNIQUE: X-RAY [...] EST , CC: Dr. Sowmya Cabrera MD Credit [employer] Collections Representative: Signed Normal [facility] Chloride measurementOrdered By: Sowmya Cabrera on 07-20-2024 Chloride [Moles/Vol] 108 mmol/L High 98-107 [facility] Comprehensive Metabolic Prof ilon 07-20-2024 Albumin [Mass/Vol] 3.7 g/dL Normal 3.2-5.0 [facility] Comment on above: Order Comment: Order Date: 07/20/24Order Info: 0786-1 - CMPOrder Info: - MGOrder Info: 3015-10 - TSHOrder Info: 2497-11 - FEOrder Info: 2275-11 - REHAN Performed By: #### L 503.0105, L501.9520, L101.9900, L503.6550, L500.4050, L501.5200, L3100.5475, L100.0100, L503.6150 ####[facility] [address] [place], [address] Albumin/Globulin [Mass ratio] 1.1 {ratio} Normal 0.9-2.4 [facility] Comment on above: Order Comment: Order Date: 07/20/24Order Info: 0786-1 - CMPOrder Info: - MGOrder Info: 3 - TSHOrder Info: 2497-11 - FEOrder Info: 2275-11 - REHAN Performed By: #### L 503.0105, L501.9520, L101.9900, L503.6550, L500.4050, L501.5200, L3100.5475, L100.0100, L503.6150 ####[facility] [address] [place], [address] ALK P 96 U/L Normal 45-117 [facility] Comment on above: Order Comment: Order Date: 07/20/24Order Info: 86-1 - CMPOrder Info: [id number] - MGOrder Info: 3015-3 - TSHOrder Info: 2494 - FEOrder Info: 2275- - REHAN Performed By: #### L 503.0105, L501.9520, L101.9900, L503.6550, L500.4050, L501.5200, L3100.5475, L100.0100, L503.6150 ####[facility] [address] [place], [address] ALT [Catalytic activity/Vol] 30 U/L Normal 13-56 [facility] Comment on above: Order Comment: Order Date: 07/20/24Order Info: 86-1 - CMPOrder Info: [id number] - MGOrder Info: 3015-3 - TSHOrder Info: 2494 - FEOrder Info: 2275-4 - REHAN Performed By: #### L 503.0105, L501.9520, L101.9900, L503.6550, L500.4050, L501.5200, L3100.5475, L100.0100, L503.6150 ####[facility] [address] [place], [place], [id number] AST [Catalytic activity/Vol] 32 U/L Normal 15-37 [facility] Comment on above: Order Comment: Order Date: 07/20/24Order Info: 86-1 - CMPOrder Info: [id number] - MGOrder Info: 3015-3 - TSHOrder Info: 2494 - FEOrder Info: 2275-4 - REHAN Performed By: #### L 503.0105, L501.9520, L101.9900, L503.6550, L500.4050, L501.5200, L3100.5475, L100.0100, L503.6150 ####[facility] [address] [place], [place], [phone]) Bilirubin [Mass/Vol] 0.60 mg/dL Normal 0.20-1.00 [facility] Comment on above: Order Comment: Order Date: 07/20/24Order Info: 0786-1 - CMPOrder Info: 36072-3 - MGOrder Info: 3 - TSHOrder Info: 2497-11 - FEOrder Info: 2275-11 - REHAN Result Comment: For patients on eltrombopag therapy, use of Dimension [place] TBIL is not recommended. Performed By: #### L 503.0105, L501.9520, L101.9900, L503.6550, L500.4050, L501.5200, L3100.5475, L100.0100, L503.6150 ####[facility] [address] [place], [address] BUN/CRE 22.2 RATIO High 10-20 [facility] Comment on above: Order Comment: Order Date: 07/20/24Order Info: 07-1 - CMPOrder Info: 40001-1 - MGOrder Info: 3 - TSHOrder Info: 2497-11 - FEOrder Info: 2275-11 - REHAN Performed By: #### L 503.0105, L501.9520, L101.9900, L503.6550, L500.4050, L501.5200, L3100.5475, L100.0100, L503.6150 ####[facility] [address] [place], [address] CA,Total 9.3 mg/dL Normal 8.5-10.1 [facility] Comment on above: Order Comment: Order Date: 07/20/24Order Info: 785-1 - CMPOrder Info: [id number] - MGOrder Info: 3015-10 - TSHOrder Info: 4 - FEOrder Info: 4 - REHAN Performed By: #### L 503.0105, L501.9520, L101.9900, L503.6550, L500.4050, L501.5200, L3100.5475, L100.0100, L503.6150 ####[facility] [address] [place], [address] Chloride [Moles/Vol] 108 mmol/L High 98-107 [facility] Comment on above: Order Comment: Order Date: 07/20/24Order Info: 785- - CMPOrder Info: [id number] - MGOrder Info: 3015-10 - TSHOrder Info: 2497-11 - FEOrder Info: 2275-11 - REHAN Performed By: #### L 503.0105, L501.9520, L101.9900, L503.6550, L500.4050, L501.5200, L3100.5475, L100.0100, L503.6150 ####[facility] [address] [place], [address] CO2 [Moles/Vol] 30.0 mmol/L Normal 21.0-32.0 [facility] Comment on above: Order Comment: Order Date: 07/20/24Order Info: 785- - CMPOrder Info: - MGOrder Info: 3015-10 - TSHOrder Info: 2497-11 - FEOrder Info: 2275- - REHAN Performed By: #### L 503.0105, L501.9520, L101.9900, L503.6550, L500.4050, L501.5200, L3100.5475, L100.0100, L503.6150 ####[facility] [address] [place], [address] Creatinine [Mass/Vol] 0.68 mg/dL Normal 0.55-1.02 [facility] Comment on above: Order Comment: Order Date: 07/20/24Order Info: 07-1 - CMPOrder Info: [id number] - MGOrder Info: 3015-10 - TSHOrder Info: 2497-11 - FEOrder Info: 2275-11 - REHAN Result Comment: The validity of the calculated GFR GFRAA in patients over 70 years has not been determined. Clinical correlation is essential. Performed By: #### L 503.0105, L501.9520, L101.9900, L503.6550, L500.4050, L501.5200, L3100.5475, L100.0100, L503.6150 ####[facility] [address] [place], [place], [id number] EST GFR - AA 109 mL/min Normal >60 [facility] Comment on above: Order Comment: Order Date: 07/20/24Order Info: 07 - CMPOrder Info: - MGOrder Info: 3015-10 - TSHOrder Info: 2497-11 - FEOrder Info: 2275-11 - REHAN Result Comment: Afri can Romanian GFR Calc Performed By: #### L 503.0105, L501.9520, L101.9900, L503.6550, L500.4050, L501.5200, L3100.5475, L100.0100, L503.6150 ####[facility] [address] [place], [place], [phone] GAP 3 Low 5-15 [facility] Comment on above: Order Comment: Order Date: 07/20/24Order Info: 0786-1 - CMPOrder Info: 40081-1 - MGOrder Info: 3015-10 - TSHOrder Info: 2497-11 - FEOrder Info: 2275-11 - REHAN Performed By: #### L 503.0105, L501.9520, L101.9900, L503.6550, L500.4050, L501.5200, L3100.5475, L100.0100, L503.6150 ####[facility] [address] [place], [place], [address] GFR/1.73 sq M.predicted among non-blacks MDRD (S/P/Bld) [Vol rate/Area] 90 mL/min/{1.73_m2} Normal >60 [facility] Comment on above: Order Comment: Order Date: 07/20/24Order Info: 0786-1 - CMPOrder Info: 45029-2 - MGOrder Info: 3015-3 - TSHOrder Info: 2497-11 - FEOrder Info: 2275-4 - REHAN Result Comment: Non- GFR Calc Performed By: #### L 503.0105, L501.9520, L101.9900, L503.6550, L500.4050, L501.5200, L3100.5475, L100.0100, L503.6150 ####[facility] [address] [place], [place], [phone](016) Globulin (S) [Mass/Vol] 3.5 g/dL Normal 2.2-4.2 [facility] Comment on above: Order Comment: Order Date: 07/20/24Order Info: 785-1 - CMPOrder Info: 13949-6 - MGOrder Info: 3015-10 - TSHOrder Info: 2497-11 - FEOrder Info: 2275- - REHAN Performed By: #### L 503.0105, L501.9520, L101.9900, L503.6550, L500.4050, L501.5200, L3100.5475, L100.0100, L503.6150 ####[facility] [address] [place], [address] Glucose [Mass/Vol] 91 mg/dL Normal 74-106 [facility] Comment on above: Order Comment: Order Date: 07/20/24Order Info: 86-1 - CMPOrder Info: [id number] - MGOrder Info: 3 - TSHOrder Info: 2497-11 - FEOrder Info: 2275- - REHAN Performed By: #### L 503.0105, L501.9520, L101.9900, L503.6550, L500.4050, L501.5200, L3100.5475, L100.0100, L503.6150 ####[facility] [address] [place], [address] Potassium [Moles/Vol] 3.7 mmol/L Normal 3.5-5.1 [facility] Comment on above: Order Comment: Order Date: 07/20/24Order Info: 86-1 - CMPOrder Info: [id number] - MGOrder Info: 3 - TSHOrder Info: 2494 - FEOrder Info: 2275-4 - REHAN Performed By: #### L 503.0105, L501.9520, L101.9900, L503.6550, L500.4050, L501.5200, L3100.5475, L100.0100, L503.6150 ####[facility] [address] [place], [address] Sodium [Moles/Vol] 141 mmol/L Normal 136-145 [facility] Comment on above: Order Comment: Order Date: 07/20/24Order Info: 785- - CMPOrder Info: 24451-1 - MGOrder Info: 3 - TSHOrder Info: 2494 - FEOrder Info: 2275-4 - REHAN Performed By: #### L 503.0105, L501.9520, L101.9900, L503.6550, L500.4050, L501.5200, L3100.5475, L100.0100, L503.6150 ####[facility] [address] [place], [address] T PROT 7.2 g/dL Normal 6.4-8.2 [facility] Comment on above: Order Comment: Order Date: 07/20/24Order Info: 86-1 - CMPOrder Info: [id number] - MGOrder Info: 3 - TSHOrder Info: 24903-28 - FEOrder Info: 2275-4 - REHAN Performed By: #### L 503.0105, L501.9520, L101.9900, L503.6550, L500.4050, L501.5200, L3100.5475, L100.0100, L503.6150 ####[facility] [address] [place], [address] Urea nitrogen [Mass/Vol] 15 mg/dL Normal 7-18 [facility] Comment on above: Order Comment: Order Date: 07/20/24Order Info: 0786-1 - CMPOrder Info: [id number] - MGOrder Info: 3016-3 - TSHOrder Info: 2498-4 - FEOrder Info: 2276-4 - REHAN Performed By: #### L 503.0105, L501.9520, L101.9900, L503.6550, L500.4050, L501.5200, L3100.5475, L100.0100, L503.6150 ####[facility] [address] [place], [address] Eosinophil percentageOrdered By: Sowmya Cabrera on 07-20-2024 Eosinophils/100 WBC (Bld) 1.3 % 0-5 [facility] Erythrocyte Sed Rateon 07-20 SED RATE 20 mm/hr Normal 0-30 [facility] Comment on above: Order Comment: Order Date: 07/20/24Order Info: 0184-1 - CBCDOrder Info: 21562-4 - SED Performed By: #### L 503.0105, L501.9520, L101.9900, L503.6550, L500.4050, L501.5200, L3100.5475, L100.0100, L503.6150 ####[facility] [address] [place], [address] Erythrocyte distribution wid th ratioOrdered By: Sowmya Cabrera on 07-20-2024 Erythrocyte distribution width (RBC) [Ratio] 13.4 % 11.6-14.6 [facility] Erythrocyte distribution wid th standard deviationOrdered By: Sowmya Cabrera on 07-20-2024 Erythrocyte distribution width (RBC) [Entitic vol] 45.4 fL High 35.1-43.9 [facility] Erythrocyte sedimentation ra teOrdered By: Sowmya Cabrera on 07-20-2024 ESR (Bld) [Velocity] 20 mm/h 0-30 [facility] Estimated glomerular filtrat ion rate (GFR) AmericanOrdered By: Sowmya Cabrera on 07-20-2024 Estimated GFR (MDRD) Amer 109 mL/min >60 [facility] Comment on above: GFR Calc Ferritinon 07-20-2024 Ferritin [Mass/Vol] 125 ng/mL Normal [facility] Comment on above: Order Comment: Order Date: 07/20/24Order Info: 0786-1 - CMPOrder Info: [id number] - MGOrder Info: 3016-3 - TSHOrder Info: 2498-4 - FEOrder Info: 2276-4 - REHAN Performed By: #### L 503.0105, L501.9520, L101.9900, L503.6550, L500.4050, L501.5200, L3100.5475, L100.0100, L503.6150 ####[facility] [address] [place], [address] Ferritin measurementOrdered By: Sowmya Cabrera on 07-20-2024 Ferritin [Mass/Vol] 125 ng/mL [facility] Glomerular filtration rate ( GFR) estimationOrdered By: Sowmya Cabrera on 07-20-2024 Estimated GFR (MDRD) Non-Af Amer 90 mL/min >60 [facility] Comment on above: Non- GFR Calc Glucose measurementOrdered B y: Sowmya Cabrera on 07-20-2024 Glucose [Mass/Vol] 91 mg/dL 74-106 [facility] Hematocrit Auto (Bld) [Volum e fraction]Ordered By: Sowmya Cabrera on 07-20-2024 Hematocrit (Bld) [Volume fraction] 39.4 % 37-47 [facility] Hemoglobin measurementOrdere d By: Sowmya Cabrera on 07-20-2024 Hemoglobin (Bld) [Mass/Vol] 12.8 g/dL 12.0-15.0 [facility] Immature granulocytes/100 WB C Auto (Bld)Ordered By: Sowmya Cabrera on 07-20-2024 Immature granulocytes/100 WBC (Bld) 0.400 % 0.0-0.9 [facility] Comment on above: IG% - Immature Granu locytes (promyelocytes, myelocytes and metamyelocytes) > 1% indicates that a LEFT SHIFT is Present. Ironon 07-20-2024 Iron [Mass/Vol] 38 ug/dL Low 50-170 [facility] Comment on above: Order Comment: Order Date: 07/20/24Order Info: 0786-1 - CMPOrder Info: [id number] - MGOrder Info: 3016-3 - TSHOrder Info: 2498-4 - FEOrder Info: 2276-4 - REHAN Performed By: #### L 503.0105, L501.9520, L101.9900, L503.6550, L500.4050, L501.5200, L3100.5475, L100.0100, L503.6150 ####[facility] [address] [place], [place], [address] Iron (Unsp spec) [Mass/Mass] Ordered By: Sowmya Cabrera on 07-20-2024 Iron [Mass/Vol] 38 ug/dL Low 50-170 [facility] - Chemistry and C hemistry - challengeOrdered By: Sowmya Cabrera on 07-20-2024 AST [Catalytic activity/Vol] 32 U/L 15-37 [facility] Lymphocytes Auto (Unsp spec) [#/Vol]Ordered By: Sowmya Cabrera on 07-20-2024 Lymphocytes (Bld) [#/Vol] 0.91 10*3/uL 0.83-4.51 [facility] Lymphocytes/100 WBC Auto (Un sp spec)Ordered By: Sowmya Cabrera on 07-20-2024 Lymphocytes/100 WBC (Bld) 20.0 % 19-41 [facility] MCV (mean corpuscular volume ) determinationOrdered By: Sowmya Cabrera on 07-20-2024 MCV (RBC) [Entitic vol] 92.9 fL 81-99 [facility] Magnesiumon 07-20-2024 Magnesium [Mass/Vol] 2.2 mg/dL Normal 1.6-2.6 [facility] Comment on above: Order Comment: Order Date: 07/20/24Order Info: [id number] - CMPOrder Info: [id number] - MGOrder Info: [id number] - TSHOrder Info: [id number] - FEOrder Info: [id number] - REHAN Performed By: #### L 503.0105, L501.9520, L101.9900, L503.6550, L500.4050, L501.5200, L3100.5475, L100.0100, L503.6150 ####[facility] [id number] [place], [address] Magnesium measurementOrdered By: Sowmya Cabrera on 07-20-2024 Magnesium [Mass/Vol] 2.2 mg/dL 1.6-2.6 [facility] Mean corpuscular hemoglobin (MCH) determinationOrdered By: Sowmya Cabrera on 07-20-2024 MCH (RBC) [Entitic mass] 30.2 pg 27.0-32.0 [facility] Mean corpuscular hemoglobin concentration (MCHC) determinationOrdered By: Sowmya Cabrera on 07-20-2024 MCHC (RBC) [Mass/Vol] 32.5 g/dL 32-36 [facility] Mean platelet volume determi nationOrdered By: Sowmya Cabrera on 07-20-2024 Platelet mean volume (Bld) [Entitic vol] 12.0 fL 6.2-12.0 [facility] Monocyte percentageOrdered B y: Sowmya Cabrera on 07-20-2024 Monocytes/100 WBC (Bld) 8.1 % 0-10 [facility] Neutrophil percentageOrdered By: Sowmya Cabrera on 07-20-2024 Neutrophils/100 WBC (Bld) 69.8 % 47-70 [facility] Nucleated red blood cell per centageOrdered By: Sowmya Cabrera on 07-20-2024 Nucleated RBC/100 WBC (Bld) [Ratio] 0 % 0-5 [facility] Platelet countOrdered By: Zaynab Cabrera on 07-20-2024 Platelets (Bld) [#/Vol] 216 10*3/uL 150-450 [facility] Potassium measurementOrdered By: Sowmya Cabrera on 07-20-2024 Potassium [Moles/Vol] 3.7 mmol/L 3.5-5.1 [facility] RBC Auto (Bld) [#/Vol]Ordere d By: Sowmya Cabrera on 07-20-2024 RBC (Bld) [#/Vol] 4.24 10*6/uL 4.2-5.4 [facility] Serum anion gap measurementO rdered By: Sowmya Cabrera on 07-20-2024 Anion gap [Moles/Vol] 3 mmol/L Low 5-15 [facility] Serum globulin measurementOr dered By: Sowmya Cabrera on 07-20-2024 Globulin (S) [Mass/Vol] 3.5 g/dL 2.2-4.2 [facility] Serum or plasma alanine eastman otransferase (ALT) measurementOrdered By: Sowmya Cabrera on 07-20-2024 ALT [Catalytic activity/Vol] 30 U/L 13-56 [facility] Serum or plasma albumin demetrice urement (mass/volume)Ordered By: Sowmya Cabrera on 07-20-2024 Albumin [Mass/Vol] 3.7 g/dL 3.2-5.0 [facility] Serum or plasma alkaline dedrick sphatase measurementOrdered By: Sowmya Cabrera on 07-20-2024 ALP [Catalytic activity/Vol] 96 U/L 45-117 [facility] Serum or plasma calcium demetrice urement (mass/volume)Ordered By: Sowmya Cabrera on 07-20-2024 Calcium [Mass/Vol] 9.3 mg/dL 8.5-10.1 [facility] Serum or plasma creatinine m easurement (mass/volume)Ordered By: Sowmya Cabrera on 07-20-2024 Creatinine [Mass/Vol] 0.68 mg/dL 0.55-1.02 [facility] Comment on above: The validity of the calculated GFR & GFRAA in patients over 70 years has not been determined. Clinical correlation is essential. Serum or plasma urea nitroge n measurement (mass/volume)Ordered By: Sowmya Cabrera on 07-20-2024 Urea nitrogen [Mass/Vol] 15 mg/dL 7-18 [facility] Sodium levelOrdered By: Shirin Cabrera on 07-20-2024 Sodium [Moles/Vol] 141 mmol/L 136-145 [facility] TSH QnOrdered By: Mann Cabrera on 07-20-2024 Thyroid Stimulating Hormone (TSH) 2.380 uIU/mL 0.358-3.740 [facility] Thyroid Stim Hormone (TSH)on 07-20-2024 TSH 2.380 uIU/mL Normal 0.358-3.740 [facility] Comment on above: Order Comment: Order Date: 07/20/24Order Info: [id number] - CMPOrder Info: [id number] - MGOrder Info: [id number] - TSHOrder Info: [id number] - FEOrder Info: [id number] - REHAN Performed By: #### L 503.0105, L501.9520, L101.9900, L503.6550, L500.4050, L501.5200, L3100.5475, L100.0100, L503.6150 ####[facility] [id number] [place], [place], [address] Total proteinOrdered By: Mari Cabrera on 07-20-2024 Protein [Mass/Vol] 7.2 g/dL 6.4-8.2 [facility] Vitamin B12on 07-20-2024 Cobalamin (Vitamin B12) [Mass/Vol] 559 pg/mL Normal 211-911 [facility] Comment on above: Order Comment: Order Date: 07/20/24Order Info: [id number] - B12 Performed By: #### L 503.0105, L501.9520, L101.9900, L503.6550, L500.4050, L501.5200, L3100.5475, L100.0100, L503.6150 ####[facility] [id number] [place], [address] Vitamin B12 measurementOrder ed By: Sowmya Cabrera on 07-20-2024 Cobalamin (Vitamin B12) [Mass/Vol] 559 pg/mL 211-911 [facility] White blood cell (WBC) count Ordered By: Sowmya Cabrera on 07-20-2024 WBC (Bld) [#/Vol] 4.6 10*3/uL 4.4-11.0 [facility] Inital Evaluation (1) - PTon 07-16-2024 Inital Evaluation (1) - PT [facility] [address] [place] [address] / REHABILITATION SERVICES INITIAL EVALUATION MR#: [id number] Acct: [id number] Name: GERMANIA DONIS Rep #: [id number] : 1945 79 From: Sary Mejia PT, Cert. MDT Referring Dr.: Dr. Lex Rhoades MD Status: REG R Insurance: MEDICARE PART A B [facility] Patient's Visit Information Visit Information [...] STAYING THE SAME Pain Scale: Worst - /10 - IT KILLS ME AT TIMES. Least - 09/03 Currently: 12/02 Commenced as a result of: NO APPARENT [...] 3+/5. R ELBOW 5/5 L 5/5. 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 Normal [facility] Shoulder min 2 Viewson 07-06 Shoulder min 2 Views [facility] Imaging Services [address] [place], [place] [address] Shoulder min 2 Views MR#: [id number] Acct: [id number] Name: GERMANIA DONIS Rep #: [id number] : 1945 F 79 From: Marco Antonio Reynoso DO PCP: Dr. Sowmya Cabrera MD Status: REG CLI Study: Shoulder min 2 Views Date of Exam: 07/06/24 Exam# [id number] Ordering Dr: Lex Rhoades [place] [id number] INDICATION: Left shoulder pain EXAMINATION/TECHNIQUE: X-RAY - [...] 11:52 EST Reading Location ID and State: [address] [place] [address] Tel [phone], Service support , CC: Dr. Lex Rhoades MD; Dr. Sowmya Cabrera MD Credit And Collections Representative: Signed Normal [facility] Shoulder min 2 Viewson 04-19 Shoulder min 2 Views [facility] Imaging Services [address] [place] [address] Shoulder min 2 Views MR#: [id number] Acct: [id number] Name: GERMANIA DONIS Rep #: [id number] : 1945 F 78 From: Roxanna Rodriguez MD PCP: Dr. Sowmya Cabrera MD Status: REG CLI Study: Shoulder min 2 Views Date of Exam: 04/19/24 Exam# [id number] Ordering Dr: Sowmya Cabrera [id number] EXAM: XR LEFT SHOULDER COMPLETE, 2 OR [...] EDT , CC: Dr. Sowmya Cabrera MD Credit And Collections Representative: Signed Normal [facility] Echo Completeon 02-17-2024 Echo Complete [facility] Cardiovascular Services [address] [place] [address] Echo Complete 02/17/24 0906 MR#: [id number] Acct: [id number] Name: GERMANIA DONIS Rep #: [id number] : 1945 78 From: Jeronimo Anne MD Attending Dr: Dr. Sowmya Cabrera MD Status: REG CLI Ordering Dr: Sowmya Cabrera MD Date: 02/17/24 Location: [facility] Sex: F C Admitted: Reason For Study: [...] Cabrera Referring Physician: Sowmya Cabrera Performed By: Mitra Tomlin RVT, RDCS and Student 02/17/24 140 Date Jeronimo Anne MD CC: Dr. Sowmya Cabrera MD Date Dictated: 02/17/24 09 Date Transcribed: 02/17/241405 Credit And Collections Representative: Signed [facility] SCRN MAMM (CAD)W/CYNTHIA BILATo n 02-17-2024 SCRN MAMM (CAD)W/CYNTHIA BILAT [facility] Imaging Services [address] [place], [place] [address] SCRN MAMM (CAD)W/CYNTHIA BILAT MR#: [id number] Acct: [id number] Name: GERMANIA DONIS Rep #: [id number] : 1945 F 78 From: Nathanael salcido MD PCP: Dr. Sowmya Cabrera MD Status: [facility] Study: SCRN MAMM (CAD)W/CYNTHIA BILAT Date of Exam: 01/24 01/15 Exam# [id number] Ordering Dr: Sowmya Cabrera [id number] MAMMOGRAPHY - BILATERAL SCREENING REASON FOR EXAM: [...] delay biopsy of a clinically suspicious abnormality. [id number] Electronically Signed: Nathanael Rosenberg MD at 9:12 EDT , CC: Dr. Sowmya Cabrera MD Credit And Collections Representative: Signed Normal [facility] Basophil percentageOrdered B y: Mann Cabrera on 10-21-2023 Chloride [Moles/Vol] 110 mmol/L 98-107 [facility] Cholesterol [Mass/Vol] 224 mg/dL <200 Wo [facility] Comment on above: <200 mg/dL Desirable 200-240 mg/dL Borderline >240 mg/dL High Risk Glucose [Mass/Vol] 98 mg/dL 74-106 [facility] Potassium [Moles/Vol] 4.2 mmol/L 3.5-5.1 [facility] Sodium [Moles/Vol] 142 mmol/L 136-145 [facility] Triglyceride [Mass/Vol] 50 mg/dL <199 [facility] Comment on above: The drugs N-Acetylcy steine and Metamizole may falsely depress this assay.Serum Triglycerides Reference Interval Normal <150 mg/dL Borderline high 150 - 199 mg/dL High 200 - 499 mg/dL Very High > or = 500 mg/dL Laboratory - Chemistry and C hemistry - challengeOrdered By: Mann Cabrera on 10-21-2023 Cholesterol in HDL [Mass/Vol] 71 mg/dL >40 [facility] Comment on above: The drugs N-Acetylcy steine and Metamizole may falsely depress this assay. Reference Range HDL <40 mg/dL Low HDL Cholesterol HDL >or= 60 mg/dL High HDL Cholesterol Cholesterol in LDL [Mass/Vol] 143 mg/dL 0-130 [facility] CO2 [Moles/Vol] 29.0 mmol/L 21.0-32.0 [facility] Urea nitrogen/Creatinine [Mass ratio] 27.7 mg/mg 10-20 [facility] No Panel InformationOrdered By: Mann Cabrera on 10-21-2023 Estimated GFR (MDRD) Amer 101 mL/min >60 [facility] Comment on above: GFR Calc Estimated GFR (MDRD) Non-Af Amer 84 mL/min >60 [facility] Comment on above: Non- GFR Calc VLDL Cholesterol 10 mg/dL 5-40 [facility] Serum or plasma calcium demetrice urement (mass/volume)Ordered By: Mann Cabrera on 10-21-2023 Calcium [Mass/Vol] 9.0 mg/dL 8.5-10.1 [facility] Serum or plasma creatinine m easurement (mass/volume)Ordered By: Mann Cabrera on 10-21-2023 Creatinine [Mass/Vol] 0.72 mg/dL 0.55-1.02 [facility] Comment on above: The validity of the calculated GFR & GFRAA in patients over 70 years has not been determined. Clinical correlation is essential. Serum or plasma thyroid stim ulating hormone (TSH) measurement (units/volume)Ordered By: Mann Cabrera on 10-21-2023 TSH Qn 1.70 uIU/mL 0.358-3.74 [facility] Serum or plasma urea nitroge n measurement (mass/volume)Ordered By: Mann Cabrera on 10-21-2023 Urea nitrogen [Mass/Vol] 20 mg/dL 7-18 [facility] Thin prep Papanicolaou smear with manual screeningOrdered By: Mann Cabrera on 10-21-2023 Thin prep Papanicolaou smear with manual screening 3 5-15 [facility] Basophil percentageOrdered B y: Dr. Cabrera on 12-16-2022 Bilirubin [Mass/Vol] 0.30 mg/dL 0.20-1.00 [facility] Comment on above: For patients on eltr ombopag therapy, use of Dimension [place] TBIL is not recommended. Chloride [Moles/Vol] 108 mmol/L 98-107 [facility] Cholesterol [Mass/Vol] 210 mg/dL <200 [facility] Comment on above: <200 mg/dL Desirable 200-240 mg/dL Borderline >240 mg/dL High Risk Glucose [Mass/Vol] 93 mg/dL 74-106 [facility] Potassium [Moles/Vol] 3.7 mmol/L 3.5-5.1 [facility] Protein [Mass/Vol] 7.6 g/dL 6.4-8.2 [facility] Sodium [Moles/Vol] 139 mmol/L 136-145 [facility] Triglyceride [Mass/Vol] 86 mg/dL <199 [facility] Comment on above: The drugs N-Acetylcy steine and Metamizole may falsely depress this assay.Serum Triglycerides Reference Interval Normal <150 mg/dL Borderline high 150 - 199 mg/dL High 200 - 499 mg/dL Very High > or = 500 mg/dL Laboratory - Chemistry and C hemistry - challengeOrdered By: Dr. Cabrera on 12-16-2022 ALP [Catalytic activity/Vol] 90 U/L 45-117 [facility] ALT [Catalytic activity/Vol] 41 U/L 13-56 [facility] CO2 [Moles/Vol] 26.0 mmol/L 21.0-32.0 [facility] Free T4 [Mass/Vol] 1.10 ng/dL 0.76-1.46 [facility] Globulin (S) [Mass/Vol] 4.4 g/dL 2.2-4.2 [facility] Magnesium [Mass/Vol] 2.2 mg/dL 1.6-2.6 [facility] Urea nitrogen/Creatinine [Mass ratio] 21.1 mg/mg 10-20 [facility] No Panel InformationOrdered By: Dr. Cabrera on 12-16-2022 Estimated GFR (MDRD) Amer 112 mL/min >60 [facility] Comment on above: GFR Calc Estimated GFR (MDRD) Non-Af Amer 92 mL/min >60 [facility] Comment on above: Non- GFR Calc Ionized Calcium 5.0 mg/dL 4.5-5.6 [facility] Comment on above: Performed at: [employer] [facility] [employer] [address] [id number] Director: Wilder Araya PhD, Phone: [phone] Parathyroid Hormone (Intact) 25.4 pg/mL 18.4-80.1 [facility] Thyroid Stimulating Hormone (TSH) 0.30 uIU/mL 0.358-3.74 [facility] Vitamin D 25-Hydroxy 99.5 ng/mL [facility] Comment on above: Vitamin D 25(OH) Sta tus Range Deficiency <20 ng/mL (50nmol/L) Insufficiency 20 - 30 ng/mL (50 - 75 nmol/L) Sufficiency 30 - 100 ng/mL (75 - 250 nmol/L) Toxicity >100 ng/mL (>250 nmol/L) Serum or plasma albumin demetrice urement (mass/volume)Ordered By: Dr. Cabrera on 12-16-2022 Albumin [Mass/Vol] 3.2 g/dL 3.2-5.0 [facility] Serum or plasma albumin/glob ulin mass ratioOrdered By: Dr. Cabrera on 12-16-2022 Albumin/Globulin [Mass ratio] 0.7 {ratio} 0.9-2.4 [facility] Serum or plasma calcium demetrice urement (mass/volume)Ordered By: Dr. Cabrera on 12-16-2022 Calcium [Mass/Vol] 9.0 mg/dL 8.5-10.1 [facility] Serum or plasma cholesterol in HDL measurement (mass/volume)Ordered By: Dr. Cabrera on 12-16-2022 Cholesterol in HDL [Mass/Vol] 59 mg/dL >40 [facility] Comment on above: The drugs N-Acetylcy steine and Metamizole may falsely depress this assay. Reference Range HDL <40 mg/dL Low HDL Cholesterol HDL >or= 60 mg/dL High HDL Cholesterol Serum or plasma cholesterol in VLDL measurement (mass/volume)Ordered By: Dr. Cabrera on 12-16-2022 Cholesterol in VLDL [Mass/Vol] 17 mg/dL 5-40 [facility] Serum or plasma creatinine m easurement (mass/volume)Ordered By: Dr. Cabrera on 12-16-2022 Creatinine [Mass/Vol] 0.66 mg/dL 0.55-1.02 [facility] Comment on above: The validity of the calculated GFR & GFRAA in patients over 70 years has not been determined. Clinical correlation is essential. Serum or plasma low density lipoprotein (LDL) cholesterol measurement (mass/volume)Ordered By: Dr. Cabrera on 12-16-2022 Cholesterol in LDL [Mass/Vol] 134 mg/dL 0-130 [facility] Serum or plasma urea nitroge n measurement (mass/volume)Ordered By: Dr. Cabrera on 12-16-2022 Urea nitrogen [Mass/Vol] 14 mg/dL 7-18 [facility] Thin prep Papanicolaou smear with manual screeningOrdered By: Dr. Cabrera on 12-16-2022 Thin prep Papanicolaou smear with manual screening 38 U/L 15-37 [facility] Thin prep Papanicolaou smear with manual screening 5 5-15 [facility] Laboratory - Chemistry and C hemistry - challengeon 06-24-2022 Free T4 [Mass/Vol] 1.19 ng/dL 0.76-1.46 [facility] Work Phone: No Panel Informationon 06-24 Thyroid Stimulating Hormone (TSH) 0.77 uIU/mL 0.358-3.74 [facility] Work Phone: Basophil percentageon 2021 Bilirubin [Mass/Vol] 0.40 mg/dL 0.20-1.00 [facility] Work Phone: [phone] Comment on above: For patients on eltr ombopag therapy, use of Dimension [place] TBIL is not recommended. Chloride [Moles/Vol] 107 mmol/L 98-107 [facility] Work Phone: Cholesterol [Mass/Vol] 251 mg/dL <200 [facility] Work Phone: Comment on above: <200 mg/dL Desirable 200-240 mg/dL Borderline >240 mg/dL High Risk Glucose [Mass/Vol] 90 mg/dL 74-106 [facility] Work Phone: Potassium [Moles/Vol] 4.1 mmol/L 3.5-5.1 [facility] Work Phone: Protein [Mass/Vol] 7.3 g/dL 6.4-8.2 [facility] Work Phone: Sodium [Moles/Vol] 140 mmol/L 136-145 [facility] Work Phone: Triglyceride [Mass/Vol] 66 mg/dL <199 [facility] Work Phone: [phone] Comment on above: The drugs N-Acetylcy steine and Metamizole may falsely depress this assay.Serum Triglycerides Reference Interval Normal <150 mg/dL Borderline high 150 - 199 mg/dL High 200 - 499 mg/dL Very High > or = 500 mg/dL WBC (Bld) [#/Vol] 4.3 10*3/uL 4.4-11.0 [facility] Work Phone: [phone] Blood erythrocytes count (nu mber/volume)on 04-30-2022 RBC (Bld) [#/Vol] 4.44 10*6/uL 4.2-5.4 [facility] Work Phone: [phone] Blood hemoglobin measurement (mass/volume)on 04-30-2022 Hemoglobin (Bld) [Mass/Vol] 13.1 g/dL 12.0-15.0 [facility] Work Phone: [phone] Blood platelet mean volumeon 04-30-2022 Platelet mean volume (Bld) [Entitic vol] 11.6 fL 6.2-12.0 [facility] Work Phone: [phone] Determination of erythrocyte mean corpuscular volume (MCV)on 04-30-2022 MCV (RBC) [Entitic vol] 92.1 fL 81-99 [facility] Work Phone: [phone] Hematocrit Auto (Bld) [Volum e fraction]on 04-30-2022 Hematocrit (Bld) [Volume fraction] 40.9 % 37-47 [facility] Work Phone: [phone] Laboratory - Chemistry and C hemistry - challengeon 04-30-2022 ALP [Catalytic activity/Vol] 85 U/L 45-117 [facility] Work Phone: [phone] ALT [Catalytic activity/Vol] 34 U/L 13-56 [facility] Work Phone: [phone] CO2 [Moles/Vol] 28.0 mmol/L 21.0-32.0 [facility] Work Phone: [phone] Free T4 [Mass/Vol] 0.91 ng/dL 0.76-1.46 [facility] Work Phone: [phone] Globulin (S) [Mass/Vol] 3.9 g/dL 2.2-4.2 [facility] Work Phone: Urea nitrogen/Creatinine [Mass ratio] 28.1 mg/mg 10-20 [facility] Work Phone: [phone] Laboratory - Hematology and Cell countson 04-30-2022 Erythrocyte distribution width (RBC) [Entitic vol] 46.3 fL 35.1-43.9 [facility] Work Phone: [phone] Erythrocyte distribution width (RBC) [Ratio] 13.6 % 11.6-14.6 [facility] Work Phone: [phone] MCH (RBC) [Entitic mass] 29.5 pg 27.0-32.0 [facility] Work Phone: [phone] MCHC Auto (RBC) [Mass/Vol]on 04-30-2022 MCHC (RBC) [Mass/Vol] 32.0 g/dL 32-36 [facility] Work Phone: No Panel Informationon 04-30 Estimated GFR (MDRD) Amer 97 mL/min >60 [facility] Work Phone: Comment on above: GFR Calc Estimated GFR (MDRD) Non-Af Amer 80 mL/min >60 [facility] Work Phone: Comment on above: Non- GFR Calc Thyroid Stimulating Hormone (TSH) 3.14 uIU/mL 0.358-3.74 [facility] Work Phone: [phone] Vitamin D 25-Hydroxy 62.3 ng/mL [facility] Work Phone: Comment on above: Vitamin D 25(OH) Sta tus Range Deficiency <20 ng/mL (50nmol/L) Insufficiency 20 - 30 ng/mL (50 - 75 nmol/L) Sufficiency 30 - 100 ng/mL (75 - 250 nmol/L) Toxicity >100 ng/mL (>250 nmol/L) Platelets bldon 04-30-2022 Platelets (Bld) [#/Vol] 203 10*3/uL 150-450 [facility] Work Phone: Serum or plasma albumin demetrice urement (mass/volume)on 04-30-2022 Albumin [Mass/Vol] 3.4 g/dL 3.2-5.0 [facility] Work Phone: Serum or plasma albumin/glob ulin mass ratioon 04-30-2022 Albumin/Globulin [Mass ratio] 0.9 {ratio} 0.9-2.4 [facility] Work Phone: Serum or plasma calcium demetrice urement (mass/volume)on 04-30-2022 Calcium [Mass/Vol] 9.1 mg/dL 8.5-10.1 [facility] Work Phone: Serum or plasma cholesterol in HDL measurement (mass/volume)on 04-30-2022 Cholesterol in HDL [Mass/Vol] 72 mg/dL >40 [facility] Work Phone: Comment on above: The drugs N-Acetylcy steine and Metamizole may falsely depress this assay. Reference Range HDL <40 mg/dL Low HDL Cholesterol HDL >or= 60 mg/dL High HDL Cholesterol Serum or plasma cholesterol in VLDL measurement (mass/volume)on 04-30-2022 Cholesterol in VLDL [Mass/Vol] 13 mg/dL 5-40 [facility] Work Phone: Serum or plasma creatinine m easurement (mass/volume)on 04-30-2022 Creatinine [Mass/Vol] 0.75 mg/dL 0.55-1.02 [facility] Work Phone: Comment on above: The validity of the calculated GFR & GFRAA in patients over 70 years has not been determined. Clinical correlation is essential. Serum or plasma low density lipoprotein (LDL) cholesterol measurement (mass/volume)on 04-30-2022 Cholesterol in LDL [Mass/Vol] 166 mg/dL 0-130 [facility] Work Phone: Serum or plasma urea nitroge n measurement (mass/volume)on 04-30-2022 Urea nitrogen [Mass/Vol] 21 mg/dL 7-18 [facility] Work Phone: [phone] Thin prep Papanicolaou smear with manual screeningon 04-30-2022 Thin prep Papanicolaou smear with manual screening 30 U/L 15-37 [facility] Work Phone: Thin prep Papanicolaou smear with manual screening 5 5-15 [facility] Work Phone: Basophil percentageon 2021 Basophil percentage 65 mg/dL [facility] Work Phone: No Panel Informationon 11-23 Insulin Resistance/Diabetes Risk <25 [facility] Work Phone: Comment on above: INSULIN RESISTANCE [...] one component of a physician'sclinical assessment.Performed at: [employer] [id number] Director: Tomy Moser MD, Phone: [phone] LDL Cholesterol Particle Number [id number] nmol/L [facility] Work Phone: Comment on above: Low < 1000 Moderate 1000 - 1299 Borderline-High 1300 - 1599 High 1600 - 2000 Very High > 2000 LDL Cholesterol Particle Size 21.6 nm [facility] Work Phone: Comment on above: INTERPRETATIVE INFORMATION [...] into account. LDL Cholesterol, Calculated 156 mg/dL [facility] Work Phone: Comment on above: Optimal < 100 Above optimal 100 - 129 Borderline 130 - 159 High 160 - 189 Very high > 189 Small LDL Particle Number [id number] nmol/L [facility] Work Phone: Serum or plasma cholesterol in HDL measurement (mass/volume)on 11-23-2021 Cholesterol in HDL [Mass/Vol] 63 mg/dL [facility] Work Phone: Serum or plasma cholesterol measurement (mass/volume)on 11-23-2021 Cholesterol [Mass/Vol] 230 mg/dL [facility] Work Phone: Thin prep Papanicolaou smear with manual screeningon 11-23-2021 Thin prep Papanicolaou smear with manual screening 34.3 umol/L [facility] Work Phone: CT CARDIAC SCORINGon 022 CT CARDIAC SCORING Patient Name: GERMANIA DONIS STUDY: CT CARDIAC SCORING; 08/31/2021 3:12 pm INDICATION: E78.5 Hyperlipidemia, unspecified. COMPARISON: None. ACCESSION NUMBER(S): [id number] ORDERING CLINICIAN: SOWMYA CABRERA TECHNIQUE: Using prospective [...] coronary heart disease events. According to the [employer] Clinical Expert Consensus [...] modify other non-lipid coronary risk factors. Reference: [place] P et al. Circulation. 2007; 115:402-426 2. Faint ground-glass opacities in the right upper lobe, which may be related to infiltrates. Clinical correlation and further evaluation may be obtained as clinically warranted. The report was faxed to the referring office. Electronically signed by: JINA OVALLE MD Normal [facility] Absolute lymphocyte counton 08-01-2021 Lymphocytes Auto (Unsp spec) [#/Vol] 1.08 10*3/uL 0.83-4.51 [facility] Work Phone: Basophil percentageon 2020 Bilirubin [Mass/Vol] 0.50 mg/dL 0.20-1.00 [facility] Work Phone: Comment on above: For patients on eltr ombopag therapy, use of Dimension [place] TBIL is not recommended. Chloride [Moles/Vol] 104 mmol/L 98-107 [facility] Work Phone: Cholesterol [Mass/Vol] 324 mg/dL <200 [facility] Work Phone: Comment on above: <200 mg/dL Desirable 200-240 mg/dL Borderline >240 mg/dL High Risk Eosinophils/100 WBC (Bld) 0.2 % 0-5 [facility] Work Phone: Glucose [Mass/Vol] 96 mg/dL 74-106 [facility] Work Phone: [phone] Comment on above: Please note revised GLUCOSE reference range effective 2017. Neutrophils (Bld) [#/Vol] 8.4 10*3/uL 2.0-7.7 [facility] Work Phone: [phone] Potassium [Moles/Vol] 4.0 mmol/L 3.5-5.1 [facility] Work Phone: [phone] Protein [Mass/Vol] 7.8 g/dL 6.4-8.2 [facility] Work Phone: [phone] Sodium [Moles/Vol] 138 mmol/L 136-145 [facility] Work Phone: [phone] Triglyceride [Mass/Vol] 59 mg/dL [facility] Work Phone: [phone] Comment on above: The drugs N-Acetylcy steine and Metamizole may falsely depress this assay.Serum Triglycerides Reference Interval Normal <150 mg/dL Borderline high 150 - 199 mg/dL High 200 - 499 mg/dL Very High > or = 500 mg/dL WBC (Bld) [#/Vol] 10.3 10*3/uL 4.4-11.0 [facility] Work Phone: Blood erythrocytes count (nu mber/volume)on 08-01-2021 RBC (Bld) [#/Vol] 4.62 10*6/uL 4.2-5.4 [facility] Work Phone: [phone] Blood hemoglobin measurement (mass/volume)on 08-01-2021 Hemoglobin (Bld) [Mass/Vol] 13.4 g/dL 12.0-15.0 [facility] Work Phone: Blood lymphocytes/100 leukoc yteson 08-01-2021 Lymphocytes/100 WBC (Bld) 10.5 % 19-41 [facility] Work Phone: Blood monocytes/100 leukocyt eson 08-01-2021 Monocytes/100 WBC (Bld) 7.2 % 0-10 [facility] Work Phone: Blood platelet mean volumeon 08-01-2021 Platelet mean volume (Bld) [Entitic vol] 11.8 fL 6.2-12.0 [facility] Work Phone: [phone] Culture, urineon 08-01-2021 Bacteria identified Cx Nom (U) Presumptive E. coli [facility] Work Phone: [phone] Determination of erythrocyte mean corpuscular volume (MCV)on 08-01-2021 MCV (RBC) [Entitic vol] 90.7 fL 81-99 [facility] Work Phone: [phone] Hematocrit Auto (Bld) [Volum e fraction]on 08-01-2021 Hematocrit (Bld) [Volume fraction] 41.9 % 37-47 [facility] Work Phone: [phone] Laboratory - Chemistry and C hemistry - challengeon 08-01-2021 ALP [Catalytic activity/Vol] 110 U/L 45-117 [facility] Work Phone: [phone] ALT [Catalytic activity/Vol] 26 U/L 13-56 [facility] Work Phone: [phone] CO2 [Moles/Vol] 26.0 mmol/L 21.0-32.0 [facility] Work Phone: [phone] Free T4 [Mass/Vol] 0.98 ng/dL 0.76-1.46 [facility] Work Phone: [phone] Globulin (S) [Mass/Vol] 4.5 g/dL 2.2-4.2 [facility] Work Phone: [phone] Magnesium [Mass/Vol] 2.3 mg/dL 1.6-2.6 [facility] Work Phone: [phone] Urea nitrogen/Creatinine [Mass ratio] 15.6 mg/mg 10-20 [facility] Work Phone: [phone] Laboratory - Hematology and Cell countson 08-01-2021 Basophils/100 WBC (Unsp spec) 0.2 % 0-1 [facility] Work Phone: [phone] Erythrocyte distribution width (RBC) [Entitic vol] 45.1 fL 35.1-43.9 [facility] Work Phone: Erythrocyte distribution width (RBC) [Ratio] 13.5 % 11.6-14.6 [facility] Work Phone: Immature granulocytes/100 WBC (Bld) 0.300 % 0.0-0.9 [facility] Work Phone: Comment on above: IG% - Immature Granu locytes (promyelocytes, myelocytes and metamyelocytes) > 1% indicates that a LEFT SHIFT is Present. MCH (RBC) [Entitic mass] 29.0 pg 27.0-32.0 [facility] Work Phone: Neutrophils/100 WBC (Bld) 81.6 % 47-70 [facility] Work Phone: [phone] Nucleated RBC/100 WBC (Bld) [Ratio] 0 % 0-5 [facility] Work Phone: MCHC Auto (RBC) [Mass/Vol]on 08-01-2021 MCHC (RBC) [Mass/Vol] 32.0 g/dL 32-36 [facility] Work Phone: No Panel Informationon 08-01 Estimated GFR (MDRD) Amer 86 mL/min >60 [facility] Work Phone: Comment on above: GFR Calc Estimated GFR (MDRD) Non-Af Amer 71 mL/min >60 [facility] Work Phone: Comment on above: Non- GFR Calc Ionized Calcium 5.3 mg/dL [facility] Work Phone: Comment on above: Performed at: [address] [id number] Director: Wilder Araya PhD, Phone: [phone] Parathyroid Hormone (Intact) 28.6 pg/mL 18.4-80.1 [facility] Work Phone: Thyroid Stimulating Hormone (TSH) 1.49 uIU/mL 0.358-3.74 [facility] Work Phone: Platelets bldon 08-01-2021 Platelets (Bld) [#/Vol] 237 10*3/uL 150-450 [facility] Work Phone: Serum or plasma albumin demetrice urement (mass/volume)on 08-01-2021 Albumin [Mass/Vol] 3.3 g/dL 3.2-5.0 [facility] Work Phone: Serum or plasma albumin/glob ulin mass ratioon 08-01-2021 Albumin/Globulin [Mass ratio] 0.7 {ratio} 0.9-2.4 [facility] Work Phone: Serum or plasma calcium demetrice urement (mass/volume)on 08-01-2021 Calcium [Mass/Vol] 9.2 mg/dL 8.5-10.1 [facility] Work Phone: Serum or plasma cholesterol in HDL measurement (mass/volume)on 08-01-2021 Cholesterol in HDL [Mass/Vol] 66 mg/dL [facility] Work Phone: Comment on above: The drugs N-Acetylcy steine and Metamizole may falsely depress this assay. Reference Range HDL <40 mg/dL Low HDL Cholesterol HDL >or= 60 mg/dL High HDL Cholesterol Serum or plasma cholesterol in VLDL measurement (mass/volume)on 08-01-2021 Cholesterol in VLDL [Mass/Vol] 12 mg/dL 5-40 [facility] Work Phone: Serum or plasma creatinine m easurement (mass/volume)on 08-01-2021 Creatinine [Mass/Vol] 0.84 mg/dL 0.55-1.02 [facility] Work Phone: Comment on above: The validity of the calculated GFR & GFRAA in patients over 70 years has not been determined. Clinical correlation is essential. Serum or plasma low density lipoprotein (LDL) cholesterol measurement (mass/volume)on 08-01-2021 Cholesterol in LDL [Mass/Vol] 246 mg/dL 0-130 [facility] Work Phone: Serum or plasma urea nitroge n measurement (mass/volume)on 08-01-2021 Urea nitrogen [Mass/Vol] 13 mg/dL 7-18 [facility] Work Phone: Thin prep Papanicolaou smear with manual screeningon 08-01-2021 Thin prep Papanicolaou smear with manual screening 22 U/L 15-37 [facility] Work Phone: Thin prep Papanicolaou smear with manual screening 8 5-15 [facility] Work Phone: PROGRESSon 09-15-2017 PROGRESS HNO ID: [id number]: [place] () Pillo Anglin: (none)Author Type: TechnicianType: Progress NotesFiled: 09/15/2017 2:45 PMNote Text: Radiology Service Progress NotePATIENT NAME: Germania DonisMRN: [id number] OF SERVICE: September 15, 2017TIME: 2:39 PMPATIENT IDENTITY VERIFICATION COMPLETED USING TWO (2) METHODS: Patientconfirmed name verbally and Date of .PATIENT GENDER DATA: Female. status: : NoBreastfeeding status: NO.PATIENT RELEVANT IMPLANT DATA REVIEWED: Not ApplicableRADIOLOGY DEPARTMENT: General X-ray: Exam(s) Completed: Chest X-RayPERIPHERAL IV DATA: Not applicableSIGNED BY: RT ElsaSeptember 15, 2017 2:39 PM [facility] XR CHEST 2V FRONTAL/LATon XR CHEST 2V [...] MARK MD on Sep 15 2017 3:39PM [id number] ACN [facility] CNOVon 08-30-2017 CNOV Office Visit (UCWSTR) [place] ([id number]) 1945 FDate Time Provider Department08/30/17 1:15 PM PABLO HENDRICKSON (AD) [facility] During your visit today, we recorded the following information about you: Temperature Pulse Respiration Blood pressure 102.4 degrees 119/minute 20/minute 100/60 Weight 68 kgCara Sariah Hendrickson PA-C 08/30/2017 2:20 PM SignedThis note was created using Cogn[employer]ir[employer].Chelsea Disla presents with a cough and chest [...] Visit Diagnosis:Bacterial pneumonia [J15.9]Order(s):XR CHEST 2V FRONTAL/LAT [[id number]] Order #: [id number] FUTURE ibuprofen (MOTRIN) 800 mg tabletTake 1 [...] by PABLO HENDRICKSON PA-C on 08/30/17 [facility] PROGRESSon 08-30-2017 PROGRESS HNO ID: [id number]: Sary Moon RtService: (none)Author Type: (none)Type: Progress NotesFiled: 08/30/2017 1:57 PMNote Text: Radiology Service Progress NotePATIENT NAME: Germania DonisMRN: [id number] OF SERVICE: August 30, 2017TIME: 1:46 PMPATIENT IDENTITY VERIFICATION COMPLETED USING TWO (2) METHODS: Patientconfirmed name verbally and Date of .PATIENT GENDER DATA: Female. status: : NoBreastfeeding status: NO.PATIENT RELEVANT IMPLANT DATA REVIEWED: Not ApplicableRADIOLOGY DEPARTMENT: General X-ray: Exam(s) Completed: Chest X-RayPERIPHERAL IV DATA: Not applicableSIGNED BY: Sary Moon RtAugust 30, 2017 1:46 PM [facility] PROGRESS HNO ID: [id number]: Pablo Tiwari) AthyService: (none)Author Type: Physician AssistantType: Progress NotesFiled: 08/30/2017 2:20 PMNote Text:This note was created using [employer].[facility] PIPt presents with a cough and chest congestion [...] I will start her on Levaquin however ifshe feels worse at any time she needs [...] next few days also.Pablo Hendrickson PA-C [facility] XR CHEST 2V FRONTAL/LATon XR CHEST 2V [...] performed to assess for complete resolution.Transcripti onist: PSCB Transcribe Date/Time: Aug 30 2017 2:00PDictated by : PRIMITIVO ENAMORADO MDThirenuka examination was interpreted and the report reviewed and electronically signed by: PRIMITIVO ENAMORADO MD on Aug 30 2017 2:02PM [id number] ACN [facility] Vital Signs Date Time Vital Sign Value Performing Clinician Faci lity 02-11-2025 10:01-0400 Body weight 61.[address] Sowmya Cabrera MD Work Phone: [facility] 01-30-2025 15:24-0400 Body temperature 98.3 [degF] Dr. Sowmya Cabrera MD Work Phone: [facility] 01-30-2025 15:24-0400 Diastolic blood pressure 57 mm[Hg] Dr. Sowmya Cabrera MD Work Phone: [facility] 01-30-2025 15:24-0400 Heart rate 78 /min Dr. Sowmya Cabrera MD Work Phone: 5(199)587-419050 [place] [address] 01-30-2025 15:24-0400 Respiratory rate 16 /min Dr. Sowmya Cabrera MD Work Phone: 5(106)849-944450 [place] [address] 01-30-2025 15:24-0400 SaO2% (BldA) [Mass fraction] 95 % Dr. Sowmya Cabrera MD Work Phone: [facility] 01-30-2025 15:24-0400 Systolic blood pressure 114 mm[Hg] Dr. Sowmya Cabrera MD Work Phone: [facility] 01-30-2025 11:21-0400 Body height [address] Sowmya Cabrera MD Work Phone: 5(193)009-145209 [place] [address] 01-30-2025 11:21-0400 Body weight 65.[address] Sowmya Cabrera MD Work Phone: [facility] 01-29-2025 03:23-0400 Body mass index (BMI) [Ratio] 26.4 kg/m2 Dr. Sowmya Cabrera MD Work Phone: [facility] 01-29-2025 02:44-0400 Body temperature 98.5 [degF] Dr. Sowmya Cabrera MD Work Phone: [facility] 01-29-2025 02:44-0400 Diastolic blood pressure 86 mm[Hg] Dr. Sowmya Cabrera MD Work Phone: [facility] 01-29-2025 02:44-0400 Heart rate 86 /min Dr. Sowmya Cabrera MD Work Phone: 3(971)496-487609 [place] [address] 01-29-2025 02:44-0400 Respiratory rate 16 /min Dr. Sowmya Cabrera MD Work Phone: 7(110)886-260150 [place] [address] 01-29-2025 02:44-0400 SaO2% (BldA) [Mass fraction] 95 % Dr. Sowmya Cabrera MD Work Phone: 7(381)220-889350 [place] [address] 01-29-2025 02:44-0400 Systolic blood pressure 96 mm[Hg] Dr. Sowmya Cabrera MD Work Phone: 5(515)064-050850 [place] [address] 01-28-2025 23:31-0400 Body mass index (BMI) [Ratio] 26.6 kg/m2 Dr. Sowmya Cabrera MD Work Phone: 6(231)652-825450 [place] [address] 01-28-2025 23:31-0400 Body weight 66.[address] Sowmya Cabrera MD Work Phone: 2(484)556-781250 [place] [address] 01-28-2025 22:00-0400 Body height 157.[address] Sowmya Cabrera MD Work Phone: 7(831)435-852550 [place] [address] 12-20-2024 10:01-0400 Body weight 61.[address] Sowmya Cabrera MD Work Phone: 4(240)316-407050 [place] [address] 12-07-2024 14:49-0400 Body temperature 97.6 [degF] Dr. Sowmya Cabrera MD Work Phone: 8(531)532-583650 [place] [address] 12-07-2024 14:49-0400 Diastolic blood pressure 70 mm[Hg] Dr. Sowmya Cabrera MD Work Phone: 7(460)199-831450 [place] [address] 12-07-2024 14:49-0400 Heart rate 89 /min Dr. Sowmya Cabrera MD Work Phone: 8(350)958-418150 [place] [address] 12-07-2024 14:49-0400 Respiratory rate 18 /min Dr. Sowmya Cabrera MD Work Phone: [facility] 12-07-2024 14:49-0400 SaO2% (BldA) [Mass fraction] 98 % Dr. Sowmya Cabrera MD Work Phone: [facility] 12-07-2024 14:49-0400 Systolic blood pressure 134 mm[Hg] Dr. Sowmya Cabrera MD Work Phone: 0(967)922-293345 [address] 12-05-2024 11:12-0400 Body height 157.[address] Sowmya Cabrera MD Work Phone: 9(928)263-312650 [place] [address] 12-05-2024 11:12-0400 Body weight 65.[address] Sowmya Cabrera MD Work Phone: 9(858)811-649450 [place] [address] 12-05-2024 05:57-0400 Inhaled oxygen flow rate 2 L/min Dr. Sowmya Cabrera MD Work Phone: 3(360)330-069445 [address] 12-04-2024 15:59-0400 Body mass index (BMI) [Ratio] 26.5 kg/m2 Dr. Sowmya Cabrera MD Work Phone: 4(966)311-317809 [place] [address] 12-04-2024 12:19-0400 Body height 157.[address] Sowmya Cabrera MD Work Phone: 0(549)233-473945 [address] 12-04-2024 12:19-0400 Body mass index (BMI) [Ratio] 26.5 kg/m2 Dr. Sowmya Cabrera MD Work Phone: [facility] 12-04-2024 12:19-0400 Body temperature 98 [degF] Dr. Sowmya Cabrera MD Work Phone: 2(623)341-000409 [place] [address] 12-04-2024 12:19-0400 Body weight 65.[address] Sowmya Cabrera MD Work Phone: [facility] 12-04-2024 12:19-0400 Diastolic blood pressure 61 mm[Hg] Dr. Sowmya Cabrera MD Work Phone: [facility] 12-04-2024 12:19-0400 Heart rate 79 /min Dr. Sowmya Cabrera MD Work Phone: 6(994)896-387709 [place] [address] 12-04-2024 12:19-0400 Respiratory rate 14 /min Dr. Sowmya Cabrera MD Work Phone: 8(550)519-302950 [place] [address] 12-04-2024 12:19-0400 SaO2% (BldA) [Mass fraction] 98 % Dr. Somwya Cabrera MD Work Phone: 7(764)891-978150 [place] [address] 12-04-2024 12:19-0400 Systolic blood pressure 91 mm[Hg] Dr. Sowmya Cabrera MD Work Phone: 6(184)211-301850 [place] [address] 11-04-2024 10:54-0400 Body temperature 97.9 [degF] Dr. Sowmya Cabrera MD Work Phone: 1(154)043-762950 [place] [address] 11-04-2024 10:54-0400 Diastolic blood pressure 52 mm[Hg] Dr. Sowmya Cabrera MD Work Phone: 5(759)405-111150 [place] [address] 11-04-2024 10:54-0400 Heart rate 69 /min Dr. Sowmya Cabrera MD Work Phone: 4(047)949-963350 [place] [address] 11-04-2024 10:54-0400 Respiratory rate 14 /min Dr. Sowmya Cabrera MD Work Phone: 6(013)683-639050 [place] [address] 11-04-2024 10:54-0400 SaO2% (BldA) [Mass fraction] 95 % Dr. Sowmya Cabrera MD Work Phone: 2(134)338-408950 [place] [address] 11-04-2024 10:54-0400 Systolic blood pressure 101 mm[Hg] Dr. Sowmya Cabrera MD Work Phone: 1(826)452-494250 [place] [address] 11-04-2024 06:19-0400 Body height 165.[address] Sowmya Cabrera MD Work Phone: 9(104)989-695250 [place] [address] 11-04-2024 06:19-0400 Body mass index (BMI) [Ratio] 23.5 kg/m2 Dr. Sowmya Cabrera MD Work Phone: [facility] 11-04-2024 06:19-0400 Body weight 64.[address] Sowmya Cbarera MD Work Phone: [facility] 09-27-2024 14:13-0500 Body mass index (BMI) [Ratio] 23.8 kg/m2 Dr. Sowmya Cabrera MD Work Phone: [facility] 09-27-2024 14:13-0500 Body temperature 97.3 [degF] Dr. Sowmya Cabrera MD Work Phone: [facility] 09-27-2024 14:13-0500 Body weight 64.[address] Sowmya Cabrera MD Work Phone: [facility] 09-27-2024 14:13-0500 Diastolic blood pressure 49 mm[Hg] Dr. Sowmya Cabrera MD Work Phone: [facility] 09-27-2024 14:13-0500 Heart rate 87 /min Dr. Sowmya Cabrera MD Work Phone: [facility] 09-27-2024 14:13-0500 Respiratory rate 17 /min Dr. Sowmya Cabrera MD Work Phone: [facility] 09-27-2024 14:13-0500 SaO2% (BldA) [Mass fraction] 94 % Dr. Sowmya Cabrera MD Work Phone: [facility] 09-27-2024 14:13-0500 Systolic blood pressure 80 mm[Hg] Dr. Sowmya Cabrera MD Work Phone: [facility] Encounters Encounter Date Encounter Type Care Provider Facility Start: 02-11-2025 End: 02-11-[address] Darrick Light MD -[facility] Work Phone: Start: 02-11-2025 End: 02-11-[address] Sowmya Cabrera MD Work Phone: [facility] Work Phone: Start: 01-30-2025 Non-patient / Non-visit Dr. Darrick Light MD -[facility] Start: 01-29-2025 Non-patient / Non-visit Dr. Darrick Light MD -[facility] Start: 01-29-2025 ambulatory Darrick Light Facility: [facility] Start: 01-29-2025 End: 01-30-2025 Evaluation and management of inpatient Dr. Darrick Light MD -[facility] Work Phone: Start: 12-20-2024 End: 12-20-[address] Darrick Light MD -[facility] Work Phone: Start: 12-20-2024 End: 12-20-2024 ambulatory Darrick Light Facility:[facility] Start: 12-07-2024 Non-patient / Non-visit Eleonora Luna [facility] Start: 12-06-2024 Non-patient / Non-visit Eleonora Luna [facility] Start: 12-05-2024 Non-patient / Non-visit Dr. Darrick Light MD -[facility] Start: 12-04-2024 ambulatory Darrick Light Facility: [facility] Start: 12-04-2024 End: 12-07-2024 Evaluation and management of inpatient Dr. Darrick Light MD -[facility] Work Phone: Start: 12-04-2024 Admission to [facility] Dr[facility] Darrick Light MD -[facility] Work Phone: Start: 12-04-[address] Mann Cabrera MD Work Phone: [facility] Work Phone: Start: 12-04-2024 Non-patient / Non-visit Dr. Darrick Light MD -[facility] Start: 11-19-2024 End: 11-19-[address] Shelly Leonard MD -[facility] Work Phone: Start: 11-19-2024 End: 11-19-2024 ambulatory Sowmya Cabrera Facility:[facility] Start: 11-16-2024 Encounter for other preprocedural examination Shelly Leonard [facility] Start: 11-04-2024 ambulatory Sowmya Cabrera Faci lity:[facility] Start: 11-04-2024 Non-patient / Non-visit Dr. Todd Leonard MD -[facility] Start: 11-04-2024 End: 11-04-2024 Admission to same day surgery center Dr. Shelly Leonard MD -[facility] Start: 11-04-2024 End: 11-04-[address] Sowmya Cabrera MD Work Phone: [facility] Work Phone: Start: 10-04-2024 End: 10-04-[address] Sowmya Cabrera MD -[facility] Work Phone: Start: 10-04-2024 End: 10-04-2024 ambulatory Sowmya Cabrera Facility:[facility] Start: 09-27-2024 End: 09-27-[address] Shelly Leonard MD -[facility] Work Phone: Start: 09-27-2024 End: 09-27-2024 ambulatory Sowmya Cabrera Facility:[facility] Start: 08-12-2024 End: 08-12-2024 ambulatory Sowmya Cabrera Facility:[facility] Start: 08-12-[address] Lex Rhoades MD -Physical Therapy Work Phone: Start: 07-20-2024 End: 07-20-[address] Sowmya Cabrera MD -[facility] Work Phone: Start: 07-20-2024 End: 07-20-20[facility] Start: 07-06-2024 End: 07-06-2024 ambulatory Sowmya Cabrera Facility:[facility] Start: 04-19-2024 End: 04-19-2024 ambulatory Sowmya Cabrera Facility:[facility] Start: 02-17-2024 ambulatory Sowmya Cabrera Faci lity:[facility] Start: 02-17-2024 End: 02-17-2024 ambulatory Sowmya Cabrera Facility:[facility] Start: 10-21-2023 End: 10-21-2023 ambulatory [facility] Work Phone: Start: 10-21-2023 End: 10-21-2023 Patient encounter procedure [facility] Start: 01-24-2023 End: 01-24-2023 ambulatory [facility] Work Phone: Start: 01-24-2023 End: 01-24-2023 Discharged Recurring [facility]Physical Therapy Start: 01-02-2023 End: 01-02-2023 Patient encounter procedure [facility]Outpatient Bone D[facility]ometry Start: 12-16-2022 End: 12-16-2022 ambulatory [facility] Work Phone: Start: 12-16-2022 End: 12-16-2022 Patient encounter procedure [facility] Start: 06-24-2022 End: 06-24-2022 ambulatory [facility] Work Phone: Start: 06-24-2022 End: 06-24-2022 Patient encounter procedure [facility] Start: 04-30-2022 End: 04-30-[address] Mann Cabrera Work Phone: [facility] Work Phone: Start: 04-30-2022 End: 04-30-[address] Mann Cabrera Work Phone: [facility] Start: 04-22-2022 End: 04-22-[address] Mann Cabrera Work Phone: [facility] Work Phone: Start: 04-22-2022 End: 04-22-[address] Mann Cabrera [facility] Start: 01-24-2022 Non-patient / Non-visit Dr. Zaynab Cabrera Work Phone: [facility] Start: 01-24-2022 End: 01-24-[address] Mann Cabrera Work Phone: [facility] Start: 01-04-2022 End: 01-04-2022 Patient encounter procedure [facility]-Laboratory, Specimen Start: 11-23-2021 End: 11-23-2021 [facility] Start: 08-01-2021 [facility] Start: 09-15-2017 End: 09-15-2017 Ambulatory JUANITA COATS [facility] Start: 08-30-2017 End: 08-30-2017 Ambulatory PABLO HENDRICKSON ([place]) [facility] Procedures Date Procedure Procedure Detail Performing Clinician Start: 01-29-[address] Sowmya Cabrera MD Work Phone: Start: 01-29-2025 Plain X-ray abdomen Dr. Sowmya Cabrera MD Work Phone: Start: 01-29-[address] Sowmya Cabrera MD Work Phone: Start: 01-29-2025 Serum inorganic phos phate measurement Dr. Sowmya Cabrera MD Work Phone: Start: 01-29-2025 Plain X-ray abdomen Dr. Sowmya Cabrera MD Work Phone: Start: 01-28-2025 Computed tomography of abdomen and pelvis with intravenous contrast Dr. Sowmya Cabrera MD Work Phone: Start: 01-28-[address] Sowmya Cabrera MD Work Phone: Start: 12-07-[address] Sowmya [...] ion test Start: 01-04-2022 Throat culture Start: 08-01-2021 Bacteria identified in Urine by Culture Start: 08-01-2021 Urine culture Bacteria identificat ion test Dr. Mann Cabrera Work Phone: Throat culture Dr. Markos Cabrera Work Phone: Plan of Treatment Date Care Activity Detail Author Start: 01-30-2025 Patient discharge [facility] Start: 01-29-2025 [facility] Start: 01-29-2025 Application of intermittent pneumatic compression device [facility] Start: 01-29-2025 Serum inorganic phosphate measurement [facility] Start: 01-29-2025 Following clinical pathway protocol [facility] Start: 01-29-2025 Plain X-ray abdomen Abd Decub and/or Erect(Portabl [facility] Start: 01-29-2025 XR Abdomen Views [facility] Start: 01-29-2025 Insertion of nasogastric tube [facility] Start: 01-29-2025 Aspiration precautions [facility] Start: 01-29-2025 Admission procedure [facility] Start: 01-29-2025 Hospital admission, emergency, from emergency room, medical nature [facility] Start: 01-29-2025 Elevation of head of bed [facility] Start: 12-07-2024 Patient discharge [facility] Start: 12-05-2024 Ambulation therapy management [facility] Start: 12-05-2024 Oxygen therapy [facility] Start: 12-04-2024 Application of intermittent pneumatic compression device [facility] Start: 12-04-2024 Following clinical pathway protocol [facility] Start: 12-04-2024 Application of ice collar, cap or bag [facility] Start: 12-04-2024 Admission procedure [facility] Start: 12-04-2024 Laparoscopy Diagnostic Laparoscopy (Not Applicable) [facility] Start: 12-04-2024 Hospital admission, emergency, from emergency room, medical [facility] Start: 11-04-2024 Anesthesia hernia repair lower abdomen nos ANESTH REPAIR OF HERNIA [facility] Start: 11-04-2024 RPR AA HRN 1ST < 3 CM RDC RPR AA HRN 1ST < 3 CM RDC [facility] Start: 11-04-2024 Patient discharge [facility] Start: 10-21-2024 Electrocardiographic procedure [facility] Anion gap in Serum or Plasma [facility] BUN/Creatinine ratio [facility] Calcium [Mass/volume ] in Serum or Plasma [facility] Carbon dioxide, tota l [Moles/volume] in Central venous blood [facility] Creatinine [Mass/vol ume] in Serum or Plasma [facility] Erythrocyte mean cor puscular volume determination [facility] Glucose [Mass/volume ] in Serum or Plasma [facility] Hematocrit [Volume F raction] of Blood [facility] Hemoglobin [Mass/vol ume] in Blood [facility] Leukocytes [#/volume] in Blood [facility] Magnesium measurement [facility] Mean corpuscular hem oglobin concentration determination [facility] Mean corpuscular hem oglobin determination [facility] Measurement of renal function [facility] Neutrophil count [facility] Neutrophil percent differential count [facility] Patient referral [facility] Work Phone: Platelets [#/volume] in Blood [facility] Potassium measurement [facility] Red blood cell count [facility] Red cell distributio n width determination [facility] Serum chloride measurement [facility] Sodium measurement [facility] Urea nitrogen [Mass/ volume] in Serum or Plasma [facility] Immunizations Immunization Date Immunization Notes Care Provider Fa [facility] 12-22-2023 Pneumococcal Vaccine PCV20 (Prevnar 20) Dr. Sowmya Cabrera MD Work Phone: [facility] 06-24-2023 influenza, injectabl e, quadrivalent, preservative free Dr. Sowmya Cabrera MD Work Phone: [facility] Health 05-30-[address] Sowmya Cabrera MD Work Phone: [facility] 12-16-[address] Sowmay Cabrera MD Work Phone: [facility] 11-27-2021 Covid (Pfizer) Dr. Markos Cabrera MD Work Phone: [facility] 09-12-2021 Covid (Pfizer) Dr. Markos Cabrera MD Work Phone: [facility] 08-01-2021 influenza, injectabl e, quadrivalent, preservative free Dr. Sowmya Cabrera MD Work Phone: [facility] 07-25-2020 influenza, injectabl e, quadrivalent, preservative free Dr. Sowmya Cabrera MD Work Phone: [facility] 08-13-2016 pneumococcal conjuga te vaccine, [address] Sowmya Cabrera MD Work Phone: [facility] 11-02-2014 tetanus toxoid, redu sabrina diphtheria toxoid, and acellular pertussis vaccine, adsorbed Dr. Sowmya Cabrera MD Work Phone: [facility] 07-05-2014 influenza, injectabl e, quadrivalent, preservative free Dr. Sowmya Cabrera MD Work Phone: [facility] 05-13-2013 influenza, injectabl e, quadrivalent, preservative free Dr. Sowmya Cabrera MD Work Phone: [facility] 05-13-2013 pneumococcal polysaccharide vaccine, [address] Sowmya Cabrera MD Work Phone: [facility] Payers Date Payer Category Payer Self-pay [id number] 2021 Unknown [id number] 2016 Unknown [id number] 2012 Medicare [id number] [facility] [id number] Unknown [id number] 2.16.8 40.1.077100.3.579.2.462 Unknown [id number] 2.16.8 40.1.774449.3.579.2.462 Unknown [id number] 2.16.8 40.1.890869.3.579.2.462 Unknown [id number] 2.16.8 40.1.465731.3.579.2.462 Unknown [id number] 2.16.8 40.1.149652.3.579.2.462 Unknown [id number] 2.16.8 40.1.974069.3.579.2.462 Unknown [id number] 2.16.8 40.1.845986.3.579.2.462 Unknown [id number] 2.16.8 40.1.412254.3.579.2.462 Unknown [id number] 2.16.8 40.1.531878.3.579.2.462 Unknown [id number] 2.16.8 40.1.937209.3.579.2.462 Unknown [id number] 2.16.8 40.1.286429.3.579.2.462 Unknown [id number] 2.16.8 40.1.129129.3.579.2.462 Unknown [id number] 2.16.8 40.1.050796.3.579.2.462 Unknown [id number] 2.16.8 40.1.363202.3.579.2.462 Unknown [id number] 2.16.8 40.1.565855.3.579.2.462 Unknown [id number] 2.16.8 40.1.331917.3.579.2.462 Unknown [id number] 2.16.8 40.1.971062.3.579.2.462 Unknown [id number] 2.16.8 40.1.696863.3.579.2.462 Unknown [id number] 2.16.8 40.1.101257.3.579.2.462 Unknown [id number] 2.16.8 40.1.436104.3.579.2.462 Unknown [id number] 2.16.8 40.1.392774.3.579.2.462 Social History Date Type Detail Facility Tobacco smoking status IAIS Unknown if ever smoked [facility] Work Phone: Start: 1945 Sex Assigned At Female [facility] Start: 10-21-2024 End: 01-29-2025 Tobacco smoking status NHIS Never smoked tobacco (finding) [facility] Start: 11-04-2024 End: 12-07-2024 Sex Female (finding) [facility] NEGATED: Highlighted row Not [facility] Medical Equipment Procedure Code Equipment Code [...] Laparoscopy, diagnostic Surgical staple loading unit, cutting [id number] FDA Start: 12-04-2024 Laparoscopy, diagnostic Open-surgery manual linear cutting stapler, single-use [id number] FDA Start: 12-04-2024 Goals Date Patient Goal Desired Activity /State Functional Status Date Assessment Result Facility 01-30-2025 Functional status [facility] Work Phone: 12-07-2024 Functional status [facility] Work Phone: Mental Status Date Assessment Result Facility 01-30-2025 Cognitive function Voice/Name [facility] Work Phone: 12-07-2024 Cognitive function Voice/Name [facility] Work Phone: 11-04-2024 Cognitive function Voice/Name;Touch/Pacoki ng [facility] Work Phone: Clinical Notes 01-24-2023 to 01-30-2025 Note Date & Type Note Facility 01-30-2025 Discharge summary [facility] 01-30-2025 Discharge summary [facility] 01-30-2025 Discharge summary Note Date/Time January 30, 2025 5:00pm [facility] Medical Records Department [address] [place] [address] Discharge Summary 01/30/25 1204 MR#: [id number] Acct: [id number] Name: GERMANIA DONIS Rep #:[id number] : 1945 79 From: Darrick Lara PCP: Dr. Sowmya Cabrera MD Status :ADM IN Location: [address] Providers Date of Admission: 01/29/25 Primary Care Physician: Dr. Sowmya Cabrera MD Reason For Visit: SBO Diagnosis Discharge Diagnosis (1) Small bowel obstruction: Status: Acute Code(s): K56.609 - Unspecified intestinal obstruction, unspecified as to partial versus complete obstruction Plan: Patient is 79-year-old female who presents with approximately 24 hours of progressive abdominal discomfort with associated nausea and vomiting. ER workupconfirms clinical suspicion for small bowel obstruction. Patient underwent placement of nasogastric tube insertion for initial conservative management. Patient completed small bowel follow-through yesterday with transit to the colonby 3 hours and subsequently experienced numerous bowel movements. Caliber of the small bowel now uniformly normal on plain films. Abdominal exam is also improved. Patient was advanced to a clear liquid diet with these clinical improvements and she reports tolerance of this advanced this morning. Thus, we will advance to a transitional diet and monitor for tolerance again. Suspect her residual tenderness is simply related to the resolving obstructive process and do not suspect ongoing obstruction. You home later today provide patient tolerates transitional diet. Darrick Light MD General Surgery Endocrine Surgery Pager: [facility] [address] [place] [address], [facility], [address] [place] [address] Office: [phone] Medications at Discharge Home Medications alendronate 35 mg tablet 35 mg PO QWEEK 09/27/24 atorvastatin 80 mg tablet 80 mg PO DAILY 09/27/24 baclofen 10 mg tablet 10 mg PO DAILY 09/27/24 calcium carbonate 500 mg PO DAILY 09/27/24 levothyroxine 100 mcg capsule 100 mcg PO DAILY 09/27/24 jeoxdgif-foetclln-nksvw acid 240 mcg-vit K1 150 mcg-herb 357 tablet (Alive Women's 50 Plus Ultra Multivitamin) 1 tab PO DAILY 09/27/24 vitamins A,C,U-pnic-nrmdoy 4,296 mcg-226 mg-90 mg capsule (PreserVision AREDS) 1cap PO BID 09/27/24 zolpidem 10 mg tablet 10 mg PO QHS 09/27/24 ketoconazole 2 % shampoo 1 applic topical WESA 12/04/24 Hospital Course Operations None Summary of Care Provided Hospital Course: Patient is a 79-year-old female who was admitted the evening of 01/28/2025 due to complaints of acute onset abdominal pain with associated nausea and vomiting. ER workup consistent with signs of small bowel obstruction but otherwise clinically stable. Therefore I advocated a conservative course of management and recommended placement of nasogastric tube with subsequent admission to the below. Hospital day 2 patient underwent small bowel follow-through via nasogastric tube and the study was passed with normal transit time and resulted in return of bowel function. Nasogastric tube was discontinued and patient was initiated on clear liquid diet. By hospital day 3 patient had demonstrated tolerance of clear liquid diet and was advanced to a transitional diet. She tolerated several meals of this with ongoing bowel activity. She continued to describe some tenderness of her abdominal wall but admitted that this has been present since her surgery to varying degrees. It appears rather superficial andshe question whether may represent scar tissue within her abdominal wall. Basedon her exam and description I would agree but would like to follow it up and have instructed her to make a visit with me in another 2 to 3 weeks following hospital discharge. With this confirmed patient was granted discharge to home with instructions to remain well-hydrated and continue a clear liquid diet for least 2 weeks postdischarge. Physical Exam Const alert, oriented x3 and no apparent distress Resp normal respiratory effort GI GI Narrative: Soft, nondistended, mildly tender to palpation right mid abdomen, otherwise entirely benign Weight / BMI Weight Weight: 143 lb 8.335 oz Body Mass Index (BMI) 26.4 ABG / Lab / Microbiology Data 01/29/25 07:15 01/29/25 07:15 Radiography Diagnostic Testing: Radiology Impression Small Bowel X-Ray 01/29/25 11:45 IMPRESSION: Interval improvement in the small bowel dilation as described. Oral contrast opacifies the stomach, small and large bowel loops at 3 hours post Gastrografin administration. Reading Location: [id number] D/C Instructions DC O2, CPAP, BIPAP Needs Home O2 Discharge instructions: No Meaningful Use Info Meaningful Use Meaningful Use [...] Simvastatin 80mg Discharge Plan Admission Admit Date/Time: 01/29/25 02:10 Primary Reason for Your Visit: small bowel obstruction Attending Provider: Darrick Light Primary Care Provider: Sowmya Cabrera Discharge Orders/Prescriptions Prescriptions: Continued levothyroxine 100 mcg capsule 100 mcg [...] Self Care Charges/Coding Visit Charges Inpatient E&M: 16365 Disch Hosp 01/30/25 1700 <Electronically signed by Darrick Light MD> Cosigner Signature (if applicable): CC: Dr. Sowmya Cabrera MD; Dr. Darrick Light MD~ Signed [facility] Work Phone: 1(746) 258-620406-08-2025 Progress note Author Darrick Light [facility] Note Date/Time January 30, 2025 12:02 pm [facility] Medical Records Department [address] [place] [address] Progress Note - Surgery 01/30/25 0859 MR#: [id number] Acct: [id number] Name: GERMANIA DONIS Rep #:[id number] : 1945 79 From: Darrick Lara PCP: Dr. Sowmya Cabrera MD Status :ADM IN Location: [place] [address]-1 Subjective Subjective Patient seen and examined during AM rounds. She is found resting in a bedside chair. She reports some mild abdominal discomfort but otherwise denies any nausea in response to her liquid diet. She is experiencing ongoing flatus and bowel movements. Objective Data Objective Data Vital Signs: Vital Signs Temp Pulse Resp BP Pulse Ox O2 Del Method 98.4 F 83 16 137/66 H 98 Room Air 01/30/25 07:51 01/30/25 07:51 01/30/25 07:51 01/30/25 07:51 01/30/25 07:51 01/30/25 07:51 Oxygen Delivery Method Room Air Weight: 143 lb 8.335 oz Body Mass Index (BMI) 26.4 Intake & Output: Intake and Output for Last 24 Hours 01/28/25 01/29/25 01/30/25 23:59 23:59 23:59 Intake Total 3148.75 / 3148.75 1350 / 1350 Output Total 100 / 100 Balance 3048.75 / 3048.75 1350 / 1350 Lab / Micro Data 01/29/25 07:15 01/29/25 07:15 Radiography Diagnostic Testing: Radiology Impression Small Bowel X-Ray 01/29/25 11:45 IMPRESSION: Interval improvement in the small bowel dilation as described. Oral contrast opacifies the stomach, small and large bowel loops at 3 hours post Gastrografin administration. Reading Location: [facility] Physical Exam Const oriented x3 and no apparent distress Resp normal respiratory effort GI GI Narrative: Nondistended, soft, mild (rated by patient with an intensity of 2 out of 10) diffuse tenderness with palpation Assessment & Plan Assessment/Plan (1) Small bowel obstruction: PLAN: Patient is 79-year-old female who presents with approximately 24 hours of progressive abdominal discomfort with associated nausea and vomiting. ER workupconfirms clinical suspicion for small bowel obstruction. Patient underwent placement of nasogastric tube insertion for initial conservative management. Patient completed small bowel follow-through yesterday with transit to the colonby 3 hours and subsequently experienced numerous bowel movements. Caliber of the small bowel now uniformly normal on plain films. Abdominal exam is also improved. Patient was advanced to a clear liquid diet with these clinical improvements and she reports tolerance of this advanced this morning. Thus, we will advance to a transitional diet and monitor for tolerance again. Suspect her residual tenderness is simply related to the resolving obstructive process and do not suspect ongoing obstruction. You home later today provide patient tolerates transitional diet. Darrick Light MD General Surgery Endocrine Surgery Pager: [facility] [address] [place] [address], [facility], [address] [place] [address] Office: [phone] Charges/Coding Visit Charges Inpatient E&M: 68939 Subs Hosp L2 01/30/25 1202 <Electronically signed by Darrick Light MD> Cosigner Signature (if applicable): CC: ~ Signed [facility] Work Phone: 1(610) 354-915406-08-2025 [facility] Medical Records Department [address] [place] [address] Discharge Summary 01/30/25 1204 MR#: [id number] Acct: [id number] Name: GERMANIA DONIS Rep #: [id number] : 1945 79 From: Darrick Light MD PCP: Dr. Sowmya Cabrera MD Status:ADM IN Location: [place] [address]244-1 Providers Date of Admission: 01/29/25 Primary Care Physician: Dr. Sowmya Cabrera MD Reason For Visit: SBO Diagnosis Discharge Diagnosis (1) Small bowel obstruction: Status: Acute Code(s): K56.609 - Unspecified intestinal obstruction, unspecified as to partial versus complete obstruction Plan: Patient is 79-year-old female who presents with approximately 24 hours of progressive abdominal discomfort with associated nausea and vomiting. ER workup confirms clinical suspicion for small bowel obstruction. Patient underwent placement of nasogastric tube insertion for initial conservative management. Patient completed small bowel follow-through yesterday with transit to the colon by 3 hours and subsequently experienced numerous bowel movements. Caliber of the small bowel now uniformly normal on plain films. Abdominal exam is also improved. Patient was advanced to a clear liquid diet with these clinical improvements and she reports tolerance of this advanced this morning. Thus, we will advance to a transitional diet and monitor for tolerance again. Suspect her residual tenderness is simply related to the resolving obstructive process and do not suspect ongoing obstruction. You home later today provide patient tolerates transitional diet. Darrick Light MD General Surgery Endocrine Surgery Pager: [facility] [address] [place] [address], [facility], [address] [place] [address] Office: [phone] Medications at Discharge Home Medications alendronate 35 mg tablet 35 mg PO QWEEK 09/27/24 atorvastatin 80 mg tablet 80 mg PO DAILY 09/27/24 baclofen 10 mg tablet 10 mg PO DAILY 09/27/24 calcium carbonate 500 mg PO DAILY 09/27/24 levothyroxine 100 mcg capsule 100 mcg PO DAILY 09/27/24 uhcupfph-aycujwtc-uqxwt acid 240 mcg-vit K1 150 mcg-herb 357 tablet (Alive Women's 50 Plus Ultra Multivitamin) 1 tab PO DAILY 09/27/24 vitamins A,C,P-qmve-rqcnup 4,296 mcg-226 mg-90 mg capsule (PreserVision AREDS) 1 cap PO BID 09/27/24 zolpidem 10 mg tablet 10 mg PO QHS 09/27/24 ketoconazole 2 % shampoo 1 applic topical WESA 12/04/24 Hospital Course Operations None Summary of Care Provided Hospital Course: Patient is a 79-year-old female who was admitted the evening of 01/28/2025 due to complaints of acute onset abdominal pain with associated nausea and vomiting. ER workup consistent with signs of small bowel obstruction but otherwise clinically stable. Therefore I advocated a conservative course of management and recommended placement of nasogastric tube with subsequent admission to the below. Hospital day 2 patient underwent small bowel follow-through via nasogastric tube and the study was passed with normal transit time and resulted in return of bowel function. Nasogastric tube was discontinued and patient was initiated on clear liquid diet. By hospital day 3 patient had demonstrated tolerance of clear liquid diet and was advanced to a transitional diet. She tolerated several meals of this with ongoing bowel activity. She continued to describe some tenderness of her abdominal wall but admitted that this has been present since her surgery to varying degrees. It appears rather superficial and she question whether may represent scar tissue within her abdominal wall. Based on her exam and description I would agree but would like to follow it up and have instructed her to make a visit with me in another 2 to 3 weeks following hospital discharge. With this confirmed patient was granted discharge to home with instructions to remain well-hydrated and continue a clear liquid diet for least 2 weeks postdischarge. Physical Exam Const alert, oriented x3 and no apparent distress Resp normal respiratory effort GI GI Narrative: Soft, nondistended, mildly tender to palpation right mid abdomen, otherwise entirely benign Weight / BMI Weight Weight: 143 lb 8.335 oz Body Mass Index (BMI) 26.4 ABG / Lab / Microbiology Data 01/29/25 07:15 01/29/25 07:15 Radiography Diagnostic Testing: Radiology Impression Small Bowel X-Ray 01/29/25 11:45 IMPRESSION: Interval improvement in the small bowel dilation as described. Oral contrast opacifies the stomach, small and large bowel loops at 3 hours post Gastrografin administration. Reading Location: [id number] D/C Instructions DC O2, CPAP, BIPAP Needs Home O2 Discharge instructions: No Meaningful Use Info (more content not included)...[facility]06-08-2025 Progress note [facility] Medical Records Department [address] [place] [address] Progress Note - Surgery 01/30/25 0859 MR#: [id number] Acct: [id number] Name: GERMANIA DONIS Rep #:[id number] : 1945 79 From: Darrick Lara PCP: Dr. Sowmya Cabrera MD Status :ADM IN Location: [place] ST376-9 Subjective Subjective Patient seen and examined during AM rounds. She is found resting in a bedside chair. She reports some mild abdominal discomfort but otherwise denies any nausea in response to her liquid diet. She is experiencing ongoing flatus and bowel movements. Objective Data Objective Data Vital Signs: Vital Signs Temp Pulse Resp BP Pulse Ox O2 Del Method 98.4 F 83 16 137/66 H 98 Room Air 01/30/25 07:51 01/30/25 07:51 01/30/25 07:51 01/30/25 07:51 01/30/25 07:51 01/30/25 07:51 Oxygen Delivery Method Room Air Weight: 143 lb 8.335 oz Body Mass Index (BMI) 26.4 Intake & Output: Intake and Output for Last 24 Hours 01/28/25 01/29/25 01/30/25 23:59 23:59 23:59 Intake Total 3148.75 / 3148.75 1350 / 1350 Output Total 100 / 100 Balance 3048.75 / 3048.75 1350 / 1350 Lab / Micro Data 01/29/25 07:15 01/29/25 07:15 Radiography Diagnostic Testing: Radiology Impression Small Bowel X-Ray 01/29/25 11:45 IMPRESSION: Interval improvement in the small bowel dilation as described. Oral contrast opacifies the stomach,small and large bowel loops at 3 hours post Gastrografin administration. Reading Location: [facility] Physical Exam Const oriented x3 and no apparent distress Resp normal respiratory effort GI GI Narrative: Nondistended, soft, mild (rated by patient with an intensity of 2 out of 10) diffuse tenderness with palpation Assessment & Plan Assessment/Plan (1) Small bowel obstruction: PLAN: Patient is 79-year-old female who presents with approximately 24 hours of progressive abdominal discomfort with associated nausea and vomiting. ER workupconfirms clinical suspicion for small bowel obstruction. Patient underwent placement of nasogastric tube insertion for initial conservative management. Patient completed small bowel follow-through yesterday with transit to the colonby 3 hours and subsequently experienced numerous bowel movements. Caliber of the small bowel now uniformly normal on plain films. Abdominal exam is also improved. Patient was advanced to a clear liquid diet with these clinical improvements and she reports tolerance of this advanced this morning. Thus, we will advance to a transitional diet and monitor for tolerance again. Suspect her residual tenderness is simply related to the resolving obstructive process and do not suspect ongoing obstruction. You home later today provide patient tolerates transitional diet. Darrick Light MD General Surgery Endocrine Surgery Pager: [facility] [address] [place] [address], [facility], [address] [place] [address] Office: [phone] Charges/Coding Visit Charges Inpatient E&M: 77875 Subs Hosp L2 01/30/25 1202 Cosigner Signature (if applicable): CC: ~ Signed [facility]06-07-2025 Radiology Diagnostic study note [facility] Imaging Services [address] [place] [address] Small Bowel Series Only MR#: [id number] Acct: [id number] Name: GERMANIA DONIS Rep #: [id number] : 1945 F 79 From: Lorena Stevens MD PCP: Dr. Sowmya Cabrera MD Status: ADM IN Study:Small Bowel Series Only Date of Exam: 01/29/25 Exam# [id number] Ordering Dr: Aysha Light MD PROCEDURE: SMALL BOWEL SERIES ONLY 01/29/2025 REASON FOR EXAM: F/U SBO TECHNIQUE: Oral Gastrografin was administered. Supine abdominal radiographs were obtained at 0 hours and 3 hours post administration. COMPARISON: Abdominal radiographs earlier same day. FINDINGS: 0 hours: Oral contrast material opacifies the stomach and proximal small bowel. The proximal small bowel is normal caliber. 3 hours: Contrast opacifies the stomach, small and large bowel loops to the level of the sigmoid colon. The visualized small bowel loops are normal caliber. RAD/Small Bowel Series Only IMPRESSION: Interval improvement in the small bowel dilation as described. Oral contrast opacifies the stomach,small and large bowel loops at 3 hours post Gastrografin administration. Reading Location: [id number] CC: Dr. Sowmya Cabrera MD; Dr. Darrick Light MD ~ Credit And Collections Representative: Signed [facility]06-07-2025 History and physical note Author Darrick Light [facility] Note Date/Time January 29, 2025 11:00 am [facility] Medical Records Department [address] [place] [address] History & Physical Exam 01/29/25 1031 MR#: [id number] Acct: [id number] Name: GERMANIA DONIS Rep #:[id number] : 1945 79 From: Darrick Lara PCP: Dr. Sowmya Cabrera MD Status :ADM IN Location: [place]3 UG228-5 [facility] - General General Date of Admission: 01/29/25 Chief Complaint: ab pain + n/V HPI Narrative GERMANIA DONIS, is a 79 F who presented to [facility] with complaints of progressive acute onset mid abdominal pain and associated nausea and vomiting. She confirms she telephoned our outpatient office earlier in the day due to feeling sharp discomforts in her upper abdomen which she perceived asa pulling sensation. She further adds that her last bowel movement was a day ago and she has been passing intermittent flatus. She admits that she has not been as consistent with her fluid intake as she feels she ought to have been. Patient's ER workup is notable for CT imaging that shows evidence of small bowelobstruction with air-fluid levels within the small bowel and apparent transitionpoint in the right lower quadrant. Radiology further adds a suspicion for this being secondary to adhesions. [facility] Medical History Umbilical hernia [...] 100 mcg PO DAILY 5 12/03/24 History saiyaozb-dkitywjy-hhlqk acid 240 1 tab PO DAILY 12/03/24 History mcg-vit K1 150 mcg-herb 357 tablet (Alive Women's 50 Plus Ultra Multivitamin) vitamins A,C,S-arvx-gxtutn 4,296 1 cap PO BID 09/27/24 12/03/24 History mcg-226 mg-90 mg capsule (PreserVision AREDS) zolpidem 10 mg tablet 10 mg PO QHS 09/27/24 History ketoconazole 2 % shampoo 1 applic topical WESA 12/01/24 History Allergy/AdvReac Type Severity Reaction Status Date / Time No Known Allergies Allergy Verified 12/20/24 10:02 Family History Sister Diabetes Surgical History S/P small bowel resection S/P umbilical hernia repair, follow-up exam History of hysterectomy Previous back surgery Social History Smoking Status: Never smoker alcohol intake: never substance use type: does not use Vital Signs Vital Signs Vital Signs: 01/28/25 22:00 01/28/25 22:02 01/28/25 23:00 Temperature 98.6 F 98.6 F Temperature Source Oral Oral Pulse Rate 85 85 Pulse Strength Respiratory Rate 16 16 Respiratory Effort Respiratory Depth Respiratory Pattern Blood Pressure 115/73 115/73 100/61 Blood Pressure Mean 87 87 74 Blood Pressure Source Blood Pressure Position Blood Pressure Location Pulse Ox 99 99 Oxygen Delivery Method Room Air Room Air 01/28/25 23:02 01/29/25 00:00 01/29/25 00:00 Temperature 98.2 F 98.2 F Temperature Source Oral Oral Pulse Rate 81 80 Pulse Strength Respiratory Rate 16 18 Respiratory Effort Respiratory Depth Respiratory Pattern Blood Pressure 100/61 92/52 L 92/52 L Blood Pressure Mean 74 65 65 Blood Pressure Source Blood Pressure Position Blood Pressure Location Pulse Ox 100 99 Oxygen Delivery Method Room Air Room Air 01/29/25 01:00 01/29/25 01:00 01/29/25 02:00 Temperature 98.2 F Temperature Source Oral Pulse Rate 84 89 89 Pulse Strength Respiratory Rate 16 18 16 Respiratory Effort Respiratory Depth Respiratory Pattern Blood Pressure 114/58 L 134/80 H 134/80 H Blood Pressure Mean 76 98 98 Blood Pressure Source Blood Pressure Position Blood Pressure Location Pulse Ox 97 100 100 Oxygen Delivery Method Room Air Room Air Room Air 01/29/25 02:44 01/29/25 03:38 01/29/25 04:06 Temperature 98.5 F 97.8 F Temperature Source Oral Pulse Rate 86 82 Pulse Strength Respiratory Rate 16 18 Respiratory Effort Normal Non-Labored Respiratory Depth Normal Respiratory Pattern Normal Blood Pressure 96/86 H 134/60 H Blood Pressure Mean 89 84 Blood Pressure Source Monitor Blood Pressure Position Semi-Fowlers Blood Pressure Location Left Arm Pulse Ox 95 98 Oxygen Delivery Method Room Air Room Air 01/29/25 08:31 01/29/25 09:13 Temperature 98.2 F Temperature Source Oral Pulse Rate 80 Pulse Strength Normal (2+) Respiratory Rate 15 Respiratory Effort Respiratory Depth Respiratory Pattern Blood Pressure 107/59 L Blood Pressure Mean 75 Blood Pressure Source Monitor Blood Pressure Position Semi-Fowlers Blood Pressure Location Left Arm Pulse Ox 99 Oxygen Delivery Method Room Air Weight Weight: 143 lb 8.335 oz Body Mass Index (BMI) 26.4 Physical Exam Const alert, oriented x3 and no apparent distress Resp normal respiratory effort GI GI Narrative: Nasogastric tube in place with modest amount of gastric aspirate that is nonbilious in character, nondistended, well-healed midline incision with no evidence of hernia, soft, mildly tender to palpation of the left lower quadrant Results Lab / Micro Data 01/29/25 07:15 01/29/25 07:15 Labs: Laboratory Results - last 24 hr 01/28/25 23:02: WBC 7.0, RBC 4.19 L, Hgb 12.2, Hct 37.8, MCV 90.2, MCH 29.1, MCHC 32.3, RDW Std Deviation 46.2 H, RDW Coeff of Zia 14.0, Plt Count 180, MPV 11.0, Immature Gran % (Auto) 0.300, Neut % (Auto) 72.8 H, Lymph % (Auto) 17.9 L,Otoe % (Auto) 7.7, Eos % (Auto) 1.0, Baso % (Auto) 0.3, Absolute Neuts (auto) 5.1, Absolute Lymphs (auto) 1.26, Nucleated RBC % 0, Sodium 142, Potassium 4.0, Chloride 106, Carbon Dioxide 25.1, Anion Gap 12, BUN 15, Creatinine 0.71, Estim Creat Clear Calc 52.53, Est GFR (MDRD) Non-Af 88, BUN/Creatinine Ratio 20.7 H, Glucose 115 H, Lactic Acid 1.1, Calcium 9.4, Total Bilirubin 0.39, AST 36 H, ALT 32, Alkaline Phosphatase 102, Total Protein 6.9, Albumin 4.0, Globulin 2.9, Albumin/Globulin Ratio 1.4, Lipase 35 01/29/25 07:15: WBC 5.2, RBC 3.81 L, Hgb 11.3 L, Hct 35.0 L, MCV 91.9, MCH 29.7,MCHC 32.3, RDW Std Deviation 47.5 H, RDW Coeff of Zia 14.1, Plt Count 164, MPV 11.2, Immature Gran % (Auto) 0.400, Neut % (Auto) 70.5 H, Lymph % (Auto) 20.4, Otoe % (Auto) 7.7, Eos % (Auto) 0.8, Baso % (Auto) 0.2, Absolute Neuts (auto) 3.7, Absolute Lymphs (auto) 1.06, Nucleated RBC % 0, Sodium 142, Potassium 4.1, Chloride 109 H, Carbon Dioxide 24.6, Anion Gap 8, BUN 11, Creatinine 0.60 L, Estim Creat Clear Calc 50.87, Est GFR (MDRD) Non-Af 92, BUN/Creatinine Ratio 17.6, Glucose 111 H, Calcium 8.5, Phosphorus 3.8, Magnesium 2.2 Imaging Radiology Impression Abdomen/Pelvis CT 01/28/25 23:24 IMPRESSION: Small-bowel obstruction with a transition point in the right lower quadrant concerning for adhesions. Trace pelvic ascites. [facility] 01/29/25 02:30 IMPRESSION: 1. Appropriate positioning of the enteric tube. 2. There are few prominent loops of small bowel containing air-fluid level, in keeping with recent CT findings of small-bowel obstruction. Reading Location: [id number] Abdomen X-Ray 01/29/25 07:35 IMPRESSION: See above Reading Location: [facility] Assessment & Plan Assessment/Plan (1) Small bowel obstruction: PLAN: Patient is 79-year-old female who presents with approximately 24 hours of progressive abdominal discomfort with associated nausea and vomiting. ER workupconfirms clinical suspicion for small bowel obstruction. However, patient states that she had a normal bowel movement 24 hours ago and continues to intermittently pass flatus. Based on this and patient's CT imaging the obstruction appears to be partial in character. This is further suggested by patient's rather benign abdominal exam and minimal NG tube aspirate now approximately 8 hours postplacement. I had a lengthy conversation with patient and her family at bedside sharing that I was surprised by her presentation and the suggestion of adhesive disease being the cause of her small bowel obstruction as her prior surgical history is limited to a very small umbilical hernia repair with mesh and then my own laparoscopic small bowel resection approximately a month and a half ago. It is simply dubious that this extent of prior surgical intervention would be enough to cause intraperitoneal adhesions that would lead to obstruction. Therefore, I shared my suspicion that it was potentially more secondary to a relative dehydrated state which patient readily admits is a possibility. Either way, I recommended we proceed with a small bowel follow-through to determine if an obstruction persists. This exam was described with the patient along with its attendant risk for aspiration and I urged her to remain out of bed in a chair or ambulating during the course of theclamping. Patient confirmed understanding. Will reevaluate later today. Darrick Light MD General Surgery Endocrine Surgery Pager: [facility] [address] [place] [address], [address] [place] [address] Office: [phone] Charges/Coding Visit Charges Inpatient E&M: 64431 Init Hosp L2 01/29/25 1100 <Electronically signed by Darrick Light MD> Cosigner Signature (if applicable): CC: Dr. Sowmya Cabrera MD; Dr. Darrick Light MD~ Signed [facility] Work Phone: [phone] History and physical note [facility] Medical Records Department [address] [place] [address] History & Physical Exam 01/29/25 1031 MR#: [id number] Acct: [id number] Name: GERMANIA DONIS Rep #:[id number] : 1945 79 From: Darrick Lara PCP: Dr. Sowmya Cabrera MD Status :ADM IN Location: MS3 [id number] HPI - General General Date of Admission: 01/29/25 Chief Complaint: ab pain + n/V HPI Narrative GERMANIA DONIS, is a 79 F who presented to [facility] with complaints of progressive acute onset mid abdominal pain and associated nausea and vomiting. She confirms she telephoned our outpatient office earlier in the day due to feeling sharp discomforts in her upper abdomen which she perceived asa pulling sensation. She further adds that her last bowel movement was a day ago and she has been passing intermittent flatus. She admits that she has not been as consistent with her fluid intake as she feels she ought to have been. Patient's ER workup is notable for CT imaging that shows evidence of small bowelobstruction with air-fluid levels within the small bowel and apparent transitionpoint in the right lower quadrant. Radiology further adds a suspicion for this being secondary to adhesions. [facility] Medical History Umbilical hernia [...] 100 mcg PO DAILY 5 12/03/24 History bgbrpnie-sbesdbth-frvqx acid 240 1 tab PO DAILY 12/03/24 History mcg-vit K1 150 mcg-herb 357 tablet (Alive Women's 50 Plus Ultra Multivitamin) vitamins A,C,J-mkib-efzkdu 4,296 1 cap PO BID 09/27/24 12/03/24 History mcg-226 mg-90 mg capsule (PreserVision AREDS) zolpidem 10 mg tablet 10 mg PO QHS 09/27/24 History ketoconazole 2 % shampoo 1 applic topical WESA 12/01/24 History Allergy/AdvReac Type Severity Reaction Status Date / Time No Known Allergies Allergy Verified 12/20/24 10:02 Family History Sister Diabetes Surgical History S/P small bowel resection S/P umbilical hernia repair, follow-up exam History of hysterectomy Previous back surgery Social History Smoking Status: Never smoker alcohol intake: never substance use type: does not use Vital Signs Vital Signs Vital Signs: 01/28/25 22:00 01/28/25 22:02 01/28/25 23:00 Temperature 98.6 F 98.6 F Temperature Source Oral Oral Pulse Rate 85 85 Pulse Strength Respiratory Rate 16 16 Respiratory Effort Respiratory Depth Respiratory Pattern Blood Pressure 115/73 115/73 100/61 Blood Pressure Mean 87 87 74 Blood Pressure Source Blood Pressure Position Blood Pressure Location Pulse Ox 99 99 Oxygen Delivery Method Room Air Room Air 01/28/25 23:02 01/29/25 00:00 01/29/25 00:00 Temperature 98.2 F 98.2 F Temperature Source Oral Oral Pulse Rate 81 80 Pulse Strength Respiratory Rate 16 18 Respiratory Effort Respiratory Depth Respiratory Pattern Blood Pressure 100/61 92/52 L 92/52 L Blood Pressure Mean 74 65 65 Blood Pressure Source Blood Pressure Position Blood Pressure Location Pulse Ox 100 99 Oxygen Delivery Method Room Air Room Air 01/29/25 01:00 01/29/25 01:00 01/29/25 02:00 Temperature 98.2 F Temperature Source Oral Pulse Rate 84 89 89 Pulse Strength Respiratory Rate 16 18 16 Respiratory Effort Respiratory Depth Respiratory Pattern Blood Pressure 114/58 L 134/80 H 134/80 H Blood Pressure Mean 76 98 98 Blood Pressure Source Blood Pressure Position Blood Pressure Location Pulse Ox 97 100 100 Oxygen Delivery Method Room Air Room Air Room Air 01/29/25 02:44 01/29/25 03:38 01/29/25 04:06 Temperature 98.5 F 97.8 F Temperature Source Oral Pulse Rate 86 82 Pulse Strength Respiratory Rate 16 18 Respiratory Effort Normal Non-Labored Respiratory Depth Normal Respiratory Pattern Normal Blood Pressure 96/86 H 134/60 H Blood Pressure Mean 89 84 Blood Pressure Source Monitor Blood Pressure Position Semi-Fowlers Blood Pressure Location Left Arm Pulse Ox 95 98 Oxygen Delivery Method Room Air Room Air 01/29/25 08:31 01/29/25 09:13 Temperature 98.2 F Temperature Source Oral Pulse Rate 80 Pulse Strength Normal (2+) Respiratory Rate 15 Respiratory Effort Respiratory Depth Respiratory Pattern Blood Pressure 107/59 L Blood Pressure Mean 75 Blood Pressure Source Monitor Blood Pressure Position Semi-Fowlers Blood Pressure Location Left Arm Pulse Ox 99 Oxygen Delivery Method Room Air Weight Weight: 143 lb 8.335 oz Body Mass Index (BMI) 26.4 Physical Exam Const alert, oriented x3 and no apparent distress Resp normal respiratory effort GI GI Narrative: Nasogastric tube in place with modest amount of gastric aspirate that is nonbilious in character, nondistended, well-healed midline incision with no evidence of hernia, soft, mildly tender to palpation of the left lower quadrant Results Lab / Micro Data 01/29/25 07:15 01/29/25 07:15 Labs: Laboratory Results - last 24 hr 01/28/25 23:02: WBC 7.0, RBC 4.19 L, Hgb 12.2, Hct 37.8, MCV 90.2, MCH 29.1, MCHC 32.3, RDW Std Deviation 46.2 H, RDW Coeff of Zia 14.0, Plt Count 180, MPV 11.0, Immature Gran % (Auto) 0.300, Neut % (Auto) 72.8 H, Lymph % (Auto) 17.9 L,Otoe % (Auto) 7.7, Eos % (Auto) 1.0, Baso % (Auto) 0.3, Absolute Neuts (auto) 5.1, Absolute Lymphs (auto) 1.26, Nucleated RBC % 0, Sodium 142, Potassium 4.0, Chloride 106, Carbon Dioxide 25.1, Anion Gap 12, BUN 15, Creatinine 0.71, Estim Creat Clear Calc 52.53, Est GFR (MDRD) Non-Af 88, BUN/Creatinine Ratio 20.7 H, Glucose 115 H, Lactic Acid 1.1, Calcium 9.4, Total Bilirubin 0.39, AST 36 H, ALT 32, Alkaline Phosphatase 102, Total Protein 6.9, Albumin 4.0, Globulin 2.9, Albumin/Globulin Ratio 1.4, Lipase 35 01/29/25 07:15: WBC 5.2, RBC 3.81 L, Hgb 11.3 L, Hct 35.0 L, MCV 91.9, MCH 29.7,MCHC 32.3, RDW Std Deviation 47.5 H, RDW Coeff of Zia 14.1, Plt Count 164, MPV 11.2, Immature Gran % (Auto) 0.400, Neut% (Auto) 70.5 H, Lymph % (Auto) 20.4, Otoe % (Auto) 7.7, Eos % (Auto) 0.8, Baso % (Auto) 0.2, Absolute Neuts (auto) 3.7, Absolute Lymphs (auto) 1.06, Nucleated RBC % 0, Sodium 142, Potassium 4.1, Chloride 109 H, Carbon Dioxide 24.6, Anion Gap 8, BUN 11, Creatinine 0.60 L, Estim Creat Clear Calc 50.87, Est GFR (MDRD) Non-Af 92, BUN/Creatinine Ratio 17.6, Glucose 111 H, Calcium 8.5, Phosphorus 3.8,Magnesium 2.2 Imaging Radiology Impression Abdomen/Pelvis CT 01/28/25 23:24 IMPRESSION: Small-bowel obstruction with a transition point in the right lower quadrant concerning for adhesions. Trace pelvic ascites. Reading [facility] 01/29/25 02:30 IMPRESSION: 1. Appropriate positioning of the enteric tube. 2. There are few prominent loops of small bowel containing air-fluid level, in keeping with recent CT findings of small-bowel obstruction. Reading Location: [id number] Abdomen X-Ray 01/29/25 07:35 IMPRESSION: See above Reading Location: [facility] Assessment & Plan Assessment/Plan (1) Small bowel obstruction: PLAN: Patient is 79-year-old female who presents with approximately 24 hours of progressive abdominal discomfort with associated nausea and vomiting. ER workupconfirms clinical suspicion for small bowel obstruction. However, patient states that she had a normal bowel movement 24 hours ago and continues to intermittently pass flatus. Based on this and patient's CT imaging the obstruction appears to be partial in character. This is further suggested by patient's rather benign abdominal exam andminimal NG tube aspirate now approximately 8 hours postplacement. I had a lengthy conversation withpatient and her family at bedside sharing that I was surprised by her presentation and the suggestion of adhesive disease being the cause of her small bowel obstruction as her prior surgical history is limited to a very small umbilical hernia repair with mesh and then my own laparoscopic small bowel resection approximately a month and a half ago. It is simply dubious that this extent of prior surgical intervention would be enough to cause intraperitoneal adhesions that would lead to obstruction. Therefore, I shared my suspicion that it was potentially more secondary to a relative dehydrated state which patient readily admits is a possibility. Either way, I recommended we proceed with a small bowel follow-through to determine if an obstruction persists. This exam was described with the patient along with its attendant risk for aspiration and I urged her to remain out of bed in a chair orambulating during the course of theclamping. Patient confirmed understanding. Will reevaluate latertoday. Darrick Light MD General Surgery Endocrine Surgery Pager: [facility] [address] [place] [address], [facility], [address] [place] [address] Office: [phone] Charges/Coding Visit Charges Inpatient E&M: 13474 Init Hosp L2 01/29/25 1100 Cosigner Signature (if applicable): CC: Dr. Sowmya Cabrera MD; Dr. Darrick Light MD~ Signed [facility]06-07-2025 [facility] Medical Records Department [address] [id number] History Physical Exam 01/29/25 1031 MR#: [id number] Acct: [id number] Name: GERMANIA DONIS Rep #: [id number] : 1945 79 From: Darrick Light MD PCP: Dr. Sowmya Cabrera MD Status:ADM IN Location: NJ3 [id number] HPI - General General Date of Admission: 01/29/25 Chief Complaint: ab pain + n/V HPI Narrative GERMANIA DONIS, is a 79 F who presented to [facility] with complaints of progressive acute onset mid abdominal pain and associated nausea and vomiting. She confirms she telephoned our outpatient office earlier in the day due to feeling sharp discomforts in her upper abdomen which she perceived as a pulling sensation. She further adds that her last bowel movement was a day ago and she has been passing intermittent flatus. She admits that she has not been as consistent with her fluid intake as she feels she ought to have been. Patient's ER workup is notable for CT imaging that shows evidence of small bowel obstruction with air-fluid levels within the small bowel and apparent transition point in the right lower quadrant. Radiology further adds a suspicion for this being secondary to adhesions. [facility] Medical History Umbilical hernia Wears glasses Wears partial dentures Wears dentures Depression Cervical stenosis of spine Arthritis Low iron High cholesterol Non-smoker Shortness of breath on exertion History of echocardiogram History of stress test Thyroid disease Heart murmur Home Medications ???Medication ???Instructions ???Recorded ???Last Taken ???Type alendronate 35 mg tablet 35 mg PO QWEEK 09/27/24 11/28/24 H istory atorvastatin 80 mg tablet 80 mg PO DAILY 09/27/24 12/03/24 H istory baclofen 10 mg tablet 10 mg PO DAILY 09/27/24 12/03/24 H istory calcium carbonate 500 mg PO DAILY 09/27/24 12/03/24 History levothyroxine 100 mcg capsule 100 mcg PO DAILY 09/27/24 12/03/24 History orbhevfo-nntqunvp-sdhyo acid 240 1 tab PO DAILY 09/27/24 12/03/24 H istory mcg-vit K1 150 mcg-herb 357 tablet (Alive Women's 50 Plus Ultra Multivitamin) vitamins A,C,Y-efbd-uqyqgv 4,296 1 cap PO BID 09/27/24 12/03/24 His tory mcg-226 mg-90 mg capsule (PreserVision AREDS) zolpidem 10 mg tablet 10 mg PO QHS 09/27/24 12/03/24 His tory ketoconazole 2 % shampoo 1 applic topical WESA 12/04/2405/19 History Allergy/AdvReac Type Severity Reaction Status Date / Time No Known Allergies Allergy Verified 12/20/24 10:02 Family History Sister Diabetes Surgical History S/P small bowel resection S/P umbilical hernia repair, follow-up exam History of hysterectomy Previous back surgery Social History Smoking Status: Never smoker alcohol intake: never substance use type: does not use Vital Signs Vital Signs Vital Signs: 01/28/25 22:00 01/28/25 22:02 01/28/25 23:00 Temperature 98.6 F 98.6 F Temperature Source Oral Oral Pulse Rate 85 85 Pulse Strength Respiratory Rate 16 16 Respiratory Effort Respiratory Depth Respiratory Pattern Blood Pressure 115/73 115/73 100/61 Blood Pressure Mean 87 87 74 Blood Pressure Source Blood Pressure Position Blood Pressure Location Pulse Ox 99 99 Oxygen Delivery Method Room Air Room Air 01/28/25 23:02 01/29/25 00:00 01/29/25 00:00 Temperature 98.2 F 98.2 F Temperature Source Oral Oral Pulse Rate 81 80 Pulse Strength Respiratory Rate 16 18 Respiratory Effort Respiratory Depth Respiratory Pattern Blood Pressure 100/61 92/52 L 92/52 L Blood Pressure Mean 74 65 65 Blood Pressure Source Blood Pressure Position Blood Pressure Location Pulse Ox 100 99 Oxygen Delivery Method Room Air Room Air 01/29/25 01:00 01/29/25 01:00 01/29/25 02:00 Temperature 98.2 F Temperature Source Oral Pulse Rate 84 89 89 Pulse Strength Respiratory Rate 16 18 16 Respiratory Effort Respiratory Depth Respiratory Pattern Blood Pressure 114/58 L 134/80 H 134/80 H Blood Pressure Mean 76 98 98 Blood Pressure Source Blood Pressure Position Blood Pressure Location Pulse Ox 97 100 100 Oxygen Delivery Method Room Air Room Air Room Air 01/29/25 02:44 01/29/25 03:38 01/29/25 04:06 Temperature 98.5 F 97.8 F Temperature Source Oral Pulse Rate 86 82 Pulse Strength Respiratory Rate 16 18 Respiratory Effort Normal Non-Labored Respiratory Depth Normal Respiratory Pattern Normal Blood Pressure 96/86 H 134/60 H (more content not included)...[facility]06-07-2025 Radiology Diagnostic study note [facility] Imaging Services [address] [place] [address] Abd Decub and/or Erect(Portabl MR#: [id number] Acct: [id number] Name: GERMANIA DONIS Rep #: [id number] : 1945 F 79 From: Shaniqua Winston MD PCP: Dr. Sowmya Cabrera MD Status: ADM IN Study:Abd Decub and/or Erect(Portabl Date of Exam: 01/29/25 Exam# [id number] Ordering Dr: Aysha Light MD PROCEDURE: ABD DECUB AND/OR ERECT(PORTABL 01/29/2025 REASON FOR EXAM: SBO TECHNIQUE: Single view abdomen. COMPARISON: 01/29/2025 FINDINGS: Bowel gas: Feeding tube with the side port below the diaphragm with the tip in the proximal gastricbody. Dilated small bowel loop in the left lower quadrant, measuring up to 3.9 cm, increased since prior. Colonic loops are nondistended. Large colonic stool. Calcifications: No suspicious calcifications. Bones: There are degenerative changes of the spine. Other: Imaged lung bases are clear. RAD/Abd Decub and/or Erect(Portabl IMPRESSION: See above Reading [facility] CC: Dr. Sowmya Cabrera MD; Dr. Darrick Light MD ~ Credit And Collections Representative: Signed [facility]06-07-2025 Discharge summary Author Selvin Naranjo [facility] Note Date/Time January 29, 2025 2:59a m [facility] Medical Records Department [address] [place] [address] Emergency Department Summary 01/28/25 MR#: [id number] Acct: [id number] Name: GERMANIA DONIS Rep #:[id number] : 1945 79 From: Selvin Naranjo MD PCP: Dr. Sowmya Cabrera MD Status :ADM IN [facility] HPI - GI History of Present Illness Chief Complaint: Abd Pain Informant: patient and spouse/S.O. Narrative Narrative: 79-year-old female presenting with severe abdominal pain tonight that is much improved now. She states it was severe for maybe 30 minutes. Has been coming and going for less than a week, not as bad as it was tonight. She states the episodes have been periumbilical/epigastric, sharp, and for the most part tenderness or less. Nausea but no vomiting. Normal bowel movements. No blood. Normal urination. Does not radiate into her back or into her chest and she hasno shortness of breath or recent cough, no fevers or chills. She had surgery about 2 months ago for a bowel perforation. She agrees this pain is different than that was, that was not intermittent and this is. Prior to that she had a herniorrhaphy about a month prior, but no other abdominal surgeries. No history of gallstones that she knows of. No definite associationwith meals here recently. [facility] Medical History [...] 100 mcg PO DAILY 5 12/03/24 History bmyxdgqx-tapwskxh-cmqpu acid 240 1 tab PO DAILY 12/03/24 History mcg-vit K1 150 mcg-herb 357 tablet (Alive Women's 50 Plus Ultra Multivitamin) vitamins A,C,W-ulhf-fqguzf 4,296 1 cap PO BID 09/27/24 12/03/24 History mcg-226 mg-90 mg capsule (PreserVision AREDS) zolpidem 10 mg tablet 10 mg PO QHS 09/27/24 History ketoconazole 2 % shampoo 1 applic topical WESA 12/01/24 History Allergy/AdvReac Type Severity Reaction Status Date / Time No Known Allergies Allergy Verified 12/20/24 10:02 Family History Sister Diabetes Surgical History S/P small bowel resection S/P umbilical hernia repair, follow-up exam History of hysterectomy Previous back surgery Social History Smoking Status: Never smoker alcohol intake: never substance use type: does not use ROS ROS ED Constitutional Constitutional ED: Denies chills or fever(s) Eyes Eyes: Denies change in vision or diplopia ENT ENT ED: Denies rhinorrhea or sore throat Cardiovascular Cardiovascular: Denies chest pain or palpitations Respiratory/Chest Respiratory/Chest: Denies cough or dyspnea Gastrointestinal Gastrointestinal: Reports abdominal pain and nausea; Denies diarrhea or vomiting Genitourinary Genitourinary ED: Denies dysuria or hematuria Musculoskeletal Musculoskeletal: Denies back pain or neck pain Integumentary Denies abscess or rash Neurologic Neurologic: Denies headache(s), paresthesias or weakness Psychiatric Psychiatric: Denies anxiety or suicidal thoughts EXAM Physical Exam Const Vital Signs: 01/28/25 22:00 01/28/25 22:02 01/28/25 23:00 Temperature 98.6 F 98.6 F Temperature Source Oral Oral Pulse Rate 85 85 Respiratory Rate 16 16 Blood Pressure 115/73 115/73 100/61 Blood Pressure Mean 87 87 74 Pulse Ox 99 99 Oxygen Delivery Method Room Air Room Air 01/28/25 23:02 01/29/25 00:00 01/29/25 00:00 Temperature 98.2 F 98.2 F Temperature Source Oral Oral Pulse Rate 81 80 Respiratory Rate 16 18 Blood Pressure 100/61 92/52 L 92/52 L Blood Pressure Mean 74 65 65 Pulse Ox 100 99 Oxygen Delivery Method Room Air Room Air 01/29/25 01:00 01/29/25 01:00 01/29/25 02:00 Temperature 98.2 F Temperature Source Oral Pulse Rate 84 89 89 Respiratory Rate 16 18 16 Blood Pressure 114/58 L 134/80 H 134/80 H Blood Pressure Mean 76 98 98 Pulse Ox 97 100 100 Oxygen Delivery Method Room Air Room Air Room Air Positive well nourished and well developed General Appearance ED: well developed and NAD HEENT Reports moist mucous membranes normocephalic and atraumatic Eyes PERRL and EOMs intact bilaterally Neck full ROM and supple Resp normal respiratory effort and clear to auscultation bilaterally Cardio regular rate, regular rhythm and no murmurs GI non-distended GI Narrative: Multiple areas of tenderness worse in the epigastrium. Less tender periumbilical, right upper quadrant, left upper quadrant. No guarding or rebound tenderness. Abdomen soft. Auscultation: normoactive bowel sounds Palpation: soft Back/Spine no CVA tenderness General Back: other FROM Extremity normal to inspection General Extremety ED: Negative for edema, pulses abnormal or tenderness General Extremity: Negative for edema or pulses abnormal Neuro oriented x3, CN's II-XII intact bilaterally and no sensory deficits noted Sensorium / Orientation: awake and alert Motor Exam: strength 5/5 throughout Psych mental status grossly normal and thought process normal Skin no rashes or lesions noted and no wounds MDM MDM MDM Narrative Medical decision making narrative: Patient ischial he declined analgesics but then was accepting of them, so in addition to Zofran she was given morphine. She took an oxycodone few hours ago prior to this. She felt better after that no vomiting, labs and CT reviewed, I agree with the CT report, consistent with small bowel obstruction. Her last bowel movement was this morning, maybe 16-20 hours ago. She states they were getting smaller and harder. Discussed with Dr. Light with surgery who knows thepatient, will admit and requests an NG be placed in the ED, which was done by nursing. I reviewed the KUB, shows good placement on my interpretation, 4 views. 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 Labs: Laboratory Results - last 24 hr 01/28/25 23:02 WBC 7.0 RBC 4.19 L Hgb 12.2 Hct 37.8 MCV 90.2 MCH 29.1 MCHC 32.3 RDW Std Deviation 46.2 H RDW Coeff of Zia 14.0 Plt Count 180 MPV 11.0 Immature Gran % (Auto) 0.300 Neut % (Auto) 72.8 H Lymph % (Auto) 17.9 L Otoe % (Auto) 7.7 Eos % (Auto) 1.0 Baso % (Auto) 0.3 Absolute Neuts (auto) 5.1 Absolute Lymphs (auto) 1.26 Nucleated RBC % 0 Sodium 142 Potassium 4.0 Chloride 106 Carbon Dioxide 25.1 Anion Gap 12 BUN 15 Creatinine 0.71 Estim Creat Clear Calc 52.53 Est GFR (MDRD) Non-Af 88 BUN/Creatinine Ratio 20.7 H Glucose 115 H Lactic Acid 1.1 Calcium 9.4 Total Bilirubin 0.39 AST 36 H ALT 32 Alkaline Phosphatase 102 Total Protein 6.9 Albumin 4.0 Globulin 2.9 Albumin/Globulin Ratio 1.4 Lipase 35 Radiography Diagnostic Testing: Clinical Impression(s) from Imaging Studies Abdomen/Pelvis CT 01/28/25 23:24 IMPRESSION: Small-bowel obstruction with a transition point in the right lower quadrant concerning for adhesions. Trace pelvic ascites. Reading Location: [facility] Management Discussion w/another healthcare provider: Road Engineer (Michelle Light) Discharge Plan Dx/Rx/DC Orders Clinical Impression: Complete obstruction of small intestine Disposition Disposition: Acute Care Hospital [facility] What to do if you have Problems For any increased pain, shortness of breath, bleeding, nausea or vomiting, chestpain, or any unexpected problems, contact your Primary Care Provider. Call [facility] ([phone]) or report to the closest Emergency Room. Call 911 if necessary. 01/29/25 0259 <Electronically signed by Selvin Naranjo MD> Cosigner Signature (if applicable): CC: Dr. Sowmya Cabrera MD ~ Signed [facility] Work Phone: 1(257) 962-980606-07-2025 Radiology Diagnostic study note [facility] Imaging Services [address] [place], [place] [address] Abd Decub and/or Erect(Portabl MR#: [id number] Acct: [id number] Name: GERMANIA DONIS Rep #: [id number] : 1945 F 79 From: Emily Bolaños MD PCP: Dr. Sowmya Cabrera MD Status: ADM IN Study:Abd Decub and/or Erect(Portabl Date of Exam: 01/29/25 Exam# [id number] Ordering Dr: Aysha Light MD PROCEDURE: ABD DECUB AND/OR ERECT(PORTABL 01/29/2025 REASON FOR EXAM: SBO TECHNIQUE: 4 frontal views of the abdomen. COMPARISON: CT abdomen and pelvis on 01/28/2025 FINDINGS: Enteric tube tip and side port project over the expected location of the stomach. There are scattered air-fluid levels, to include a loop of small bowel in the left abdomen measuring 3.4 cm in diameter. Colon appears unremarkable. Contrast fills the urinary bladder. Degenerative changes and rightward curvature of the lumbar spine. RAD/Abd Decub and/or Erect(Portabl IMPRESSION: 1. Appropriate positioning of the enteric tube. 2. There are few prominent loops of small bowel containing air-fluid level, in keeping with recent CT findings of small-bowel obstruction. Reading Location: [facility] CC: Dr. Sowmya Cabrera MD; Dr. Darrick Light MD ~ Credit And Collections Representative: Signed [facility]06-07-2025 Discharge summary [facility] Medical Records Department [address] [place] [address] Emergency Department Summary 01/28/25 MR#: [id number] Acct: [id number] Name: GERMANIA DONIS Rep #:[id number] : 1945 79 From: Selvin Naranjo MD PCP: Dr. Sowmya Cabrera MD Status :ADM IN Location: [facility] XH028-2 HPI HPI - GI History of Present Illness Chief Complaint: Abd Pain Informant: patient and spouse/S.O. Narrative Narrative: 79-year-old female presenting with severe abdominal pain tonight that is much improved now. She states it was severe for maybe 30 minutes. Has been coming and going for less than a week, not as bad as it was tonight. She states the episodes have been periumbilical/epigastric, sharp, and for the most part tenderness or less. Nausea but no vomiting. Normal bowel movements. No blood. Normal urination. Does not radiate into her back or into her chest and she hasno shortness of breath or recent cough, no fevers or chills. She had surgery about 2 months ago for a bowel perforation. She agrees this pain is different than that was, that was not intermittent and this is. Prior to that she had a herniorrhaphy about a monthprior, but no other abdominal surgeries. No history of gallstones that she knows of. No definite associationwith meals here recently. [facility] Medical History [...] 100 mcg PO DAILY 5 12/03/24 History aeomuiya-pbclqaii-ffsgk acid 240 1 tab PO DAILY 12/03/24 History mcg-vit K1 150 mcg-herb 357 tablet (Alive Women's 50 Plus Ultra Multivitamin) vitamins A,C,I-bxpc-hkoiav 4,296 1 cap PO BID 09/27/24 12/03/24 History mcg-226 mg-90 mg capsule (PreserVision AREDS) zolpidem 10 mg tablet 10 mg PO QHS 09/27/24 History ketoconazole 2 % shampoo 1 applic topical WESA 12/01/24 History Allergy/AdvReac Type Severity Reaction Status Date / Time No Known Allergies Allergy Verified 12/20/24 10:02 Family History Sister Diabetes Surgical History S/P small bowel resection S/P umbilical hernia repair, follow-up exam History of hysterectomy Previous back surgery Social History Smoking Status: Never smoker alcohol intake: never substance use type: does not use ROS ROS ED Constitutional Constitutional ED: Denies chills or fever(s) Eyes Eyes: Denies change in vision or diplopia ENT ENT ED: Denies rhinorrhea or sore throat Cardiovascular Cardiovascular: Denies chest pain or palpitations Respiratory/Chest Respiratory/Chest: Denies cough or dyspnea Gastrointestinal Gastrointestinal: Reports abdominal pain and nausea; Denies diarrhea or vomiting Genitourinary Genitourinary ED: Denies dysuria or hematuria Musculoskeletal Musculoskeletal: Denies back pain or neck pain Integumentary Denies abscess or rash Neurologic Neurologic: Denies headache(s), paresthesias or weakness Psychiatric Psychiatric: Denies anxiety or suicidal thoughts EXAM Physical Exam Const Vital Signs: 01/28/25 22:00 01/28/25 22:02 01/28/25 23:00 Temperature 98.6 F 98.6 F Temperature Source Oral Oral Pulse Rate 85 85 Respiratory Rate 16 16 Blood Pressure 115/73 115/73 100/61 Blood Pressure Mean 87 87 74 Pulse Ox 99 99 Oxygen Delivery Method Room Air Room Air 01/28/25 23:02 01/29/25 00:00 01/29/25 00:00 Temperature 98.2 F 98.2 F Temperature Source Oral Oral Pulse Rate 81 80 Respiratory Rate 16 18 Blood Pressure 100/61 92/52 L 92/52 L Blood Pressure Mean 74 65 65 Pulse Ox 100 99 Oxygen Delivery Method Room Air Room Air 01/29/25 01:00 01/29/25 01:00 01/29/25 02:00 Temperature 98.2 F Temperature Source Oral Pulse Rate 84 89 89 Respiratory Rate 16 18 16 Blood Pressure 114/58 L 134/80 H 134/80 H Blood Pressure Mean 76 98 98 Pulse Ox 97 100 100 Oxygen Delivery Method Room Air Room Air Room Air Positive well nourished and well developed General Appearance ED: well developed and NAD HEENT Reports moist mucous membranes normocephalic and atraumatic Eyes PERRL and EOMs intact bilaterally Neck full ROM and supple Resp normal respiratory effort and clear to auscultation bilaterally Cardio regular rate, regular rhythm and no murmurs GI non-distended GI Narrative: Multiple areas of tenderness worse in the epigastrium. Less tender periumbilical, right upper quadrant, left upper quadrant. No guarding or rebound tenderness. Abdomen soft. Auscultation: normoactive bowel sounds Palpation: soft Back/Spine no CVA tenderness General Back: other FROM Extremity normal to inspection General Extremety ED: Negative for edema, pulses abnormal or tenderness General Extremity: Negative for edema or pulses abnormal Neuro oriented x3, CN's II-XII intact bilaterally and no sensory deficits noted Sensorium / Orientation: awake and alert Motor Exam: strength 5/5 throughout Psych mental status grossly normal and thought process normal Skin no rashes or lesions noted and no wounds MDM MDM MDM Narrative Medical decision making narrative: Patient ischial he declined analgesics but then was accepting of them, so in addition to Zofran shewas given morphine. She took an oxycodone few hours ago prior to this. She felt better after that no vomiting, labs and CT reviewed, I agree with the CT report, consistent with small bowel obstruction. Her last bowel movement was this morning, maybe 16-20 hours ago. She states they were getting smaller and harder. Discussed with Dr. Light with surgery who knows thepatient, will admit and requestsan NG be placed in the ED, which was done by nursing. I reviewed the KUB, shows good placement on my interpretation, 4 views. 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 Labs: Laboratory Results - last 24 hr 01/28/25 23:02 WBC 7.0 RBC 4.19 L Hgb 12.2 Hct 37.8 MCV 90.2 MCH 29.1 MCHC 32.3 RDW Std Deviation 46.2 H RDW Coeff of Zia 14.0 Plt Count 180 MPV 11.0 Immature Gran % (Auto) 0.300 Neut % (Auto) 72.8 H Lymph % (Auto) 17.9 L Otoe % (Auto) 7.7 Eos % (Auto) 1.0 Baso % (Auto) 0.3 Absolute Neuts (auto) 5.1 Absolute Lymphs (auto) 1.26 Nucleated RBC % 0 Sodium 142 Potassium 4.0 Chloride 106 Carbon Dioxide 25.1 Anion Gap 12 BUN 15 Creatinine 0.71 Estim Creat Clear Calc 52.53 Est GFR (MDRD) Non-Af 88 BUN/Creatinine Ratio 20.7 H Glucose 115 H Lactic Acid 1.1 Calcium 9.4 Total Bilirubin 0.39 AST 36 H ALT 32 Alkaline Phosphatase 102 Total Protein 6.9 Albumin 4.0 Globulin 2.9 Albumin/Globulin Ratio 1.4 Lipase 35 Radiography Diagnostic Testing: Clinical Impression(s) from Imaging Studies Abdomen/Pelvis CT 01/28/25 23:24 IMPRESSION: Small-bowel obstruction with a transition point in the right lower quadrant concerning for adhesions. Trace pelvic ascites. Reading Location: [facility] Management Discussion w/another healthcare provider: Road Engineer (Michelle Light) Discharge Plan Dx/Rx/DC Orders Clinical Impression: Complete obstruction of small intestine Disposition Disposition: Acute Care Hospital [facility] What to do if you have Problems For any increased pain, shortness of breath, bleeding, nausea or vomiting, chestpain, or any unexpected problems, contact your Primary Care Provider. Call [facility] ([phone]) or report tothe closest Emergency Room. Call 911 if necessary. 01/29/25 0259 Cosigner Signature (if applicable): CC: Dr. Sowmya Cabrera MD ~ Signed [facility]06-06-2025 Radiology Diagnostic study note [facility] Imaging Services [address] [place] [address] [id number] Abdomen/Pelvis W IV Cont ONLY MR#: [id number] Acct: [id number] Name: GERMANIA DONIS Rep #: [id number] : 1945 F 79 From: Timothy Moreau DO PCP: Dr. Sowmya Cabrera MD Status: REG ER Study:Abdomen/Pelvis W IV Cont ONLY Date of E xam: 01/28/25 Exam# [id number] Ordering Dr: Jose F Naranjo MD PROCEDURE: ABDOMEN/PELVIS W IV CONT ONLY 01/28/2025 REASON FOR EXAM: EPIGASTRIC PAIN TECHNIQUE: Abdomen and pelvis CT with intravenous contrast. Coronal and Sagittal reconstruction series were provided. One or more dose reduction techniques were used (e.g., Automated exposure control, adjustment of the mA and/or kV according to patient size, use of iterative reconstruction technique. COMPARISON: December 04, 2024 FINDINGS: Subtle ground-glass opacity at the medial right lung base, potentially atelectasis. Liver, spleen, pancreas and adrenal glands are intact. Gallbladder is satisfactory. No significant biliary ductal dilation. Kidneys enhance symmetrically. No suspicious renal mass, calculi or hydronephrosis. Uterus is present. Scattered colonic diverticula. Normal appendix. Multiple dilated small bowel loops throughout the abdomen width a transition point in the right lower quadrant near several wedge-shaped bowel loops concerning from small-bowel obstruction, potentially related to adhesions. Postsurgical changes of the small bowel in the right lower quadrant also noted. Gas and stool throughout the colon. Trace pelvic ascites. No free air. Severely calcified nonaneurysmal abdominal aorta. No bulky adenopathy. Superficial soft tissues are within normal limits. No acute osseous abnormality. CT/Abdomen/Pelvis W IV Cont ONLY IMPRESSION: Small-bowel obstruction with a transition point in the right lower quadrant concerning for adhesions. Trace pelvic ascites. Reading Location: [facility] CC: Dr. Selvin Naranjo MD; Dr. Sowmya Cabrera MD ~ Credit And Collections Representative: Signed [facility]06-06-2025 Discharge summary Author Selvin Naranjo [facility] Note Date/Time January 29, 2025 2:59a m [facility] Medical Records Department [address] [place] [address] Emergency Department Summary 01/28/25 MR#: [id number] Acct: [id number] Name: GERMANIA DONIS Rep #:[id number] : 1945 79 From: Selvin Naranjo MD PCP: Dr. Sowmya Cabrera MD Status :ADM IN Location: [facility] PI220-7 HPI HPI - GI History of Present Illness Chief Complaint: Abd Pain Informant: patient and spouse/S.O. Narrative Narrative: 79-year-old female presenting with severe abdominal pain tonight that is much improved now. She states it was severe for maybe 30 minutes. Has been coming and going for less than a week, not as bad as it was tonight. She states the episodes have been periumbilical/epigastric, sharp, and for the most part tenderness or less. Nausea but no vomiting. Normal bowel movements. No blood. Normal urination. Does not radiate into her back or into her chest and she hasno shortness of breath or recent cough, no fevers or chills. She had surgery about 2 months ago for a bowel perforation. She agrees this pain is different than that was, that was not intermittent and this is. Prior to that she had a herniorrhaphy about a month prior, but no other abdominal surgeries. No history of gallstones that she knows of. No definite associationwith meals here recently. [facility] Medical History [...] 100 mcg PO DAILY 5 12/03/24 History mdwakdwz-hbrshfpt-csjez acid 240 1 tab PO DAILY 12/03/24 History mcg-vit K1 150 mcg-herb 357 tablet (Alive Women's 50 Plus Ultra Multivitamin) vitamins A,C,Y-ytbr-oixjrp 4,296 1 cap PO BID 09/27/24 12/03/24 History mcg-226 mg-90 mg capsule (PreserVision AREDS) zolpidem 10 mg tablet 10 mg PO QHS 09/27/24 History ketoconazole 2 % shampoo 1 applic topical WESA 12/01/24 History Allergy/AdvReac Type Severity Reaction Status Date / Time No Known Allergies Allergy Verified 12/20/24 10:02 Family History Sister Diabetes Surgical History S/P small bowel resection S/P umbilical hernia repair, follow-up exam History of hysterectomy Previous back surgery Social History Smoking Status: Never smoker alcohol intake: never substance use type: does not use ROS ROS ED Constitutional Constitutional ED: Denies chills or fever(s) Eyes Eyes: Denies change in vision or diplopia ENT ENT ED: Denies rhinorrhea or sore throat Cardiovascular Cardiovascular: Denies chest pain or palpitations Respiratory/Chest Respiratory/Chest: Denies cough or dyspnea Gastrointestinal Gastrointestinal: Reports abdominal pain and nausea; Denies diarrhea or vomiting Genitourinary Genitourinary ED: Denies dysuria or hematuria Musculoskeletal Musculoskeletal: Denies back pain or neck pain Integumentary Denies abscess or rash Neurologic Neurologic: Denies headache(s), paresthesias or weakness Psychiatric Psychiatric: Denies anxiety or suicidal thoughts EXAM Physical Exam Const Vital Signs: 01/28/25 22:00 01/28/25 22:02 01/28/25 23:00 Temperature 98.6 F 98.6 F Temperature Source Oral Oral Pulse Rate 85 85 Respiratory Rate 16 16 Blood Pressure 115/73 115/73 100/61 Blood Pressure Mean 87 87 74 Pulse Ox 99 99 Oxygen Delivery Method Room Air Room Air 01/28/25 23:02 01/29/25 00:00 01/29/25 00:00 Temperature 98.2 F 98.2 F Temperature Source Oral Oral Pulse Rate 81 80 Respiratory Rate 16 18 Blood Pressure 100/61 92/52 L 92/52 L Blood Pressure Mean 74 65 65 Pulse Ox 100 99 Oxygen Delivery Method Room Air Room Air 01/29/25 01:00 01/29/25 01:00 01/29/25 02:00 Temperature 98.2 F Temperature Source Oral Pulse Rate 84 89 89 Respiratory Rate 16 18 16 Blood Pressure 114/58 L 134/80 H 134/80 H Blood Pressure Mean 76 98 98 Pulse Ox 97 100 100 Oxygen Delivery Method Room Air Room Air Room Air Positive well nourished and well developed General Appearance ED: well developed and NAD HEENT Reports moist mucous membranes normocephalic and atraumatic Eyes PERRL and EOMs intact bilaterally Neck full ROM and supple Resp normal respiratory effort and clear to auscultation bilaterally Cardio regular rate, regular rhythm and no murmurs GI non-distended GI Narrative: Multiple areas of tenderness worse in the epigastrium. Less tender periumbilical, right upper quadrant, left upper quadrant. No guarding or rebound tenderness. Abdomen soft. Auscultation: normoactive bowel sounds Palpation: soft Back/Spine no CVA tenderness General Back: other FROM Extremity normal to inspection General Extremety ED: Negative for edema, pulses abnormal or tenderness General Extremity: Negative for edema or pulses abnormal Neuro oriented x3, CN's II-XII intact bilaterally and no sensory deficits noted Sensorium / Orientation: awake and alert Motor Exam: strength 5/5 throughout Psych mental status grossly normal and thought process normal Skin no rashes or lesions noted and no wounds MDM MDM MDM Narrative Medical decision making narrative: Patient ischial he declined analgesics but then was accepting of them, so in addition to Zofran she was given morphine. She took an oxycodone few hours ago prior to this. She felt better after that no vomiting, labs and CT reviewed, I agree with the CT report, consistent with small bowel obstruction. Her last bowel movement was this morning, maybe 16-20 hours ago. She states they were getting smaller and harder. Discussed with Dr. Light with surgery who knows thepatient, will admit and requests an NG be placed in the ED, which was done by nursing. I reviewed the KUB, shows good placement on my interpretation, 4 views. 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 Labs: Laboratory Results - last 24 hr 01/28/25 23:02 WBC 7.0 RBC 4.19 L Hgb 12.2 Hct 37.8 MCV 90.2 MCH 29.1 MCHC 32.3 RDW Std Deviation 46.2 H RDW Coeff of Zia 14.0 Plt Count 180 MPV 11.0 Immature Gran % (Auto) 0.300 Neut % (Auto) 72.8 H Lymph % (Auto) 17.9 L Otoe % (Auto) 7.7 Eos % (Auto) 1.0 Baso % (Auto) 0.3 Absolute Neuts (auto) 5.1 Absolute Lymphs (auto) 1.26 Nucleated RBC % 0 Sodium 142 Potassium 4.0 Chloride 106 Carbon Dioxide 25.1 Anion Gap 12 BUN 15 Creatinine 0.71 Estim Creat Clear Calc 52.53 Est GFR (MDRD) Non-Af 88 BUN/Creatinine Ratio 20.7 H Glucose 115 H Lactic Acid 1.1 Calcium 9.4 Total Bilirubin 0.39 AST 36 H ALT 32 Alkaline Phosphatase 102 Total Protein 6.9 Albumin 4.0 Globulin 2.9 Albumin/Globulin Ratio 1.4 Lipase 35 Radiography Diagnostic Testing: Clinical Impression(s) from Imaging Studies Abdomen/Pelvis CT 01/28/25 23:24 IMPRESSION: Small-bowel obstruction with a transition point in the right lower quadrant concerning for adhesions. Trace pelvic ascites. Reading Location: [facility] Management Discussion w/another healthcare provider: Road Engineer (Michelle Light) Discharge Plan Dx/Rx/DC Orders Clinical Impression: Complete obstruction of small intestine Disposition Disposition: Acute Care Hospital [facility] What to do if you have Problems For any increased pain, shortness of breath, bleeding, nausea or vomiting, chestpain, or any unexpected problems, contact your Primary Care Provider. Call [facility] ([phone]) or report to the closest Emergency Room. Call 911 if necessary. 01/29/25 0259 <Electronically signed by Selvin Naranjo MD> Cosigner Signature (if applicable): CC: Dr. Sowmya Cabrera MD ~ Signed [facility] Work Phone: 1(792) 176-552004-15-2025 Discharge summary [facility] Medical Records Department [address] [place] [address] Discharge Summary 12/07/24 1100 MR#: [id number] Acct: [id number] Name: GERMANIA DONIS Rep #:[id number] : 1945 79 From: Eleonora DUONG PALesetrC PCP: Dr. Sowmya Cabrera MD Status :ADM IN Location: [facility] [id number] Providers Date of Admission: 12/04/24 Primary Care [...] mcg capsule 100 mcg PO DAILY 09/27/24 baqalpjl-nyrrfghg-pylhv acid 240 mcg-vit K1 150 mcg-herb 357 tablet (Alive Women's 50 Plus Ultra Multivitamin) 1 tab PO DAILY 09/27/24 vitamins A,C,D-tfih-docjxl 4,296 mcg-226 mg-90 mg capsule (PreserVision AREDS) [...] fever. She notes very little abdominal pain. Shenotes positive flatus and BM. Discharged instruction were [...] (Auto) 70.8 H, Lymph % (Auto) 16.5 L,Otoe % (Auto) 8.6, Eos % (Auto) 2.6, [...] to schedule a 2 week follow-up at [phone], option #2 Meaningful Use Info Meaningful Use [...] doctor, nurse, or dietitian about other foods maybe OK for you to eat, and find [...] cereals, and grains Eat: White breads, waffles, Palestinian toast, plain white rolls, or white bread toast Pretzels Plain pasta or noodles White rice Crackers, zwieback, monica, and matzoh (no cracked wheat or whole grains) Cereals without whole grains, added fiber, seeds, raisins, or other dried fruit Use white flour for baking and making sauces. Grains, such as white rice, Cream of Wheat, or grits,should be well-cooked. Include the above grains in [...] types of beans Potatoes with skin Peas [place] Cabbage, broccoli, cauliflower, [place] sprouts, and greens Sauerkraut Onions Fruits and [...] Self Care Charges/Coding Visit Charges Inpatient E&M: 89129 Disch Hosp (post-op; no charge) 12/07/24 1430 Cosigner Signature (if applicable): CC: BOOKER Montaño; Dr. Sowmya Cabrera MD~ Signed [facility]04-15-2025 Discharge summary Author Eleonora Montaño [facility] Note Date/Time December 07, 2024 2:3 0pm [facility] Medical Records Department [address] [place] [address] Discharge Summary 12/07/24 1100 MR#: [id number] Acct: [id number] Name: GERMANIA DONIS Rep #:[id number] : 1945 79 From: Eleonora DUONG PA-C PCP: Dr. Sowmya Cabrera MD Status :ADM IN Location: [facility] QG221-9 Providers Date of Admission: 12/04/24 Primary Care [...] mcg capsule 100 mcg PO DAILY 09/27/24 pmogigjy-ixzdbgox-nehjo acid 240 mcg-vit K1 150 mcg-herb 357 tablet (Alive Women's 50 Plus Ultra Multivitamin) 1 tab PO DAILY 09/27/24 vitamins A,C,T-xeut-tyljlb 4,296 mcg-226 mg-90 mg capsule (PreserVision AREDS) [...] (Auto) 70.8 H, Lymph % (Auto) 16.5 L,Otoe % (Auto) 8.6, Eos % (Auto) 2.6, [...] to schedule a 2 week follow-up at [phone], option #2 Meaningful Use Info Meaningful Use [...] cereals, and grains Eat: White breads, waffles, Palestinian toast, plain white rolls, or white bread [...] types of beans Potatoes with skin Peas [place] Cabbage, broccoli, cauliflower, [place] sprouts, and greens Sauerkraut Onions Fruits and [...] Self Care Charges/Coding Visit Charges Inpatient E&M: 38025 Disch Hosp (post-op; no charge) 12/07/24 1430 <Electronically signed by Eleonora DUONG PA-C> Cosigner Signature (if applicable): CC: BOOKER Montaño; Dr. Sowmya Cabrera MD~ Signed [facility] Work Phone: 1(790) 669-211504-15-2025 Progress note Author Eleonora Montaño [facility] Note Date/Time December 07, 2024 9:0 3am [facility] Medical Records Department [address] [place] [address] Progress Note - Surgery 12/07/24 0846 MR#: [id number] Acct: [id number] Name: GERMANIA DONIS Rep #:[id number] : 1945 79 From: Eleonora DUONG PA-C PCP: Dr. Sowmya Cabrera MD Status :ADM IN Location: [facility] VQ211-1 Subjective Subjective Patient evaluated resting comfortably in [...] (Auto) 70.8 H, Lymph % (Auto) 16.5 L,Otoe % (Auto) 8.6, Eos % (Auto) 2.6, [...] later today Charges/Coding Visit Charges Inpatient E&M: 99887 Subs Hosp L1 (no charge; post-op) 12/07/24 0903 <Electronically signed by Eleonora DUONG PA-C> Cosigner Signature (if applicable): CC: ~ Signed [facility] Work Phone: 1(378) 516-336604-15-2025 [facility] Medical Records Department [address] [place] [address] Discharge Summary 12/07/24 1100 MR#: [id number] Acct: [id number] Name: GERMANIA DONIS Rep #: [id number] : 1945 79 From: Eleonora DUONG PA-C PCP: Dr. Sowmya Cabrera MD Status:ADM IN Location: [place] [address] Providers Date of Admission: 12/04/24 Primary Care [...] mcg capsule 100 mcg PO DAILY 09/27/24 bixqgvua-vwgvnuqy-qmnyl acid 240 mcg-vit K1 150 mcg-herb 357 tablet (Alive Women's 50 Plus Ultra Multivitamin) 1 tab PO DAILY 09/27/24 vitamins A,C,J-ddet-jmfzwu 4,296 mcg-226 mg-90 mg capsule (PreserVision AREDS) [...] 70.8 H, Lymph % (Auto) 16.5 L, Otoe % (Auto) 8.6, Eos % (Auto) 2.6, [...] to schedule a 2 week follow-up at [phone], option #2 Meaningful Use Info Meaningful Use [...] meet guidelines. HIGH DO (more content not included)...[facility]04-15-2025 Progress note [facility] Medical Records Department [address] [place] [address] Progress Note - Surgery 12/07/24 0846 MR#: [id number] Acct: [id number] Name: GERMANIA DONIS Rep #:[id number] : 1945 79 From: Eleonora DUONG PA-C PCP: Dr. Sowmya Cabrera MD Status :ADM IN Location: [place] SH339-8 Subjective Subjective Patient evaluated resting comfortably in [...] (Auto) 70.8 H, Lymph % (Auto) 16.5 L,Otoe % (Auto) 8.6, Eos % (Auto) 2.6, [...] later today Charges/Coding Visit Charges Inpatient E&M: 48615 Subs Hosp L1 (no charge; post-op) 12/07/24 0903 Cosigner Signature (if applicable): CC: ~ Signed [facility]04-14-2025 Procedure note [facility] Medical Records Department [address] [place] [address] Operative Report 12/04/24 1434 MR#: [id number] Acct: [id number] Name: GERMANIA DONIS Rep #:[id number] : 1945 79 From: Darrick Lara PCP: Dr. Sowmya Cabrera MD Status :ADM IN Location: [facility] FZ930-2 Procedures Digestive 40xxx-49xxx: 52477 Lap enterectomy Operative Report (Standard) Operative Information Date of Procedure: 12/04/24 Pre-Operative Diagnosis: Perforated small bowel Post-Operative Diagnosis: Perforated small bowel diverticulum Surgery/Procedure Performed: Diagnostic laparoscopy with small bowel resection and reanastomosis masking machine operator: Yes Residential Door Unit Installer: Mora Richard Tasks completed by buyer assistant: Opening & closing, Trocar and Retracting [...] DRAINS/GRAFTS/IMPLANTS that apply: Drains Drain details: 15 Palestinian round Mauricio Estimated Blood Loss: 20 Specimen [...] quadrant. Using atraumatic graspers and a suction speed belt sander tender device I bluntly teased a perforated small [...] field labeled small bowel. Then a standard uusu-dd-yvap functional end-to-end small bowel anastomosis was created [...] remaining two 5 mm ports. A 15 Palestinian round Mauricio drain was fed into the [...] Documentation VTE Mechan Device Prophylaxis: SCD's 12/06/24 2968 Cosigner Signature (if applicable): CC: Dr. Sowmya Cabrera MD; Dr. Darrick Light MD~ Signed [facility]04-14-2025 Progress note Author Eleonora Sabra [facility] Note Date/Time December 06, 2024 9:2 9am [facility] Medical Records Department [address] [place] [address] Progress Note - Surgery 12/06/24 0838 MR#: [id number] Acct: [id number] Name: GERMANIA DONIS Rep #:[id number] : 1945 79 From: Eleonora CHERRYC PCP: Dr. Sowmya Cabrera MD Status :ADM IN Location: [place] PF052-5 Subjective Subjective Patient evaluated resting comfortably in [...] (Auto) 78.8 H, Lymph % (Auto) 13.8 L,Otoe % (Auto) 6.4, Eos % (Auto) 0.4, [...] this patient Charges/Coding Visit Charges Inpatient E&M: 15256 Subs Hosp L1 (post-op) 12/06/24928 <Electronically signed by Eleonora DUONG PA-C> Cosigner Signature (if applicable): CC: ~ Signed [facility] Work Phone: 1(813) 438-296204-14-2025 Progress note [facility] Medical Records Department [address] [place] [address] Progress Note - Surgery 12/06/2438 MR#: [id number] Acct: [id number] Name: GERMANIA DONIS Rep #:[id number] : 1945 79 From: Eleonora DUONG PA-C PCP: Dr. Sowmya Cabrera MD Status :ADM IN Location: [place] GF714-4 Subjective Subjective Patient evaluated resting comfortably in [...] (Auto) 78.8 H, Lymph % (Auto) 13.8 L,Otoe % (Auto) 6.4, Eos % (Auto) 0.4, [...] this patient Charges/Coding Visit Charges Inpatient E&M: 70773 Subs Hosp L1 (post-op) 12/06/24 0929 Cosigner Signature (if applicable): CC: ~ Signed [facility]04-13-2025 Progress note Author Darrick Light [facility] Note Date/Time December 05, 2024 10: 35am [facility] Medical Records Department [address] [place] [address] Progress Note - Surgery 12/05/24820 MR#: [id number] Acct: [id number] Name: GERMANIA DONIS Rep #:[id number] : 1945 79 From: Darrick Lara PCP: Dr. Sowmya Cabrera MD Status :[facility]M [facility] Subject[facility] Subjective Patient seen and evaluated during [...] Sl. Cloudy, Urine pH 6.0, Ur Specific [place] 1.010, Urine Protein 15 H, Urine Glucose [...] 87.8 H, Lymph % (Auto) 5.8 L, Otoe % (Auto) 5.7, Eos % (Auto) 0.0, [...] at 10:34 a.m. on 12/04/2024. Reading Location: [id number] Physical Exam Const oriented x3 Resp normal [...] Light MD General Surgery Endocrine Surgery Pager: [facility] [address] [place] [address], Outpatient [facility], [address] [place] [address] Office: [phone] (2) Pneumoperitoneum: Charges/Coding Visit Charges Inpatient E&M: 12041 Subs Hosp L2 12/05/24 1035 <Electronically signed by Darrick Light MD> Cosigner Signature (if applicable): CC: ~ Signed [facility] Work Phone: 1(369) 694-212704-13-2025 Progress note [facility] Medical Records Department [address] [place] [address] Progress Note - Surgery 12/05/24820 MR#: [id number] Acct: [id number] Name: GERMANIA DONIS Rep #:[id number] : 1945 79 From: Darrick Lara PCP: Dr. Sowmya Cabrera MD Status :ADM IN Location: [place] [address]-1 Subjective Subjective Patient seen and evaluated during [...] Sl. Cloudy, Urine pH 6.0, Ur Specific [place] 1.010, Urine Protein 15 H, Urine Glucose [...] 87.8 H, Lymph % (Auto) 5.8 L, Otoe % (Auto) 5.7, Eos % (Auto) 0.0, [...] at 10:34 a.m. on 12/04/2024. Reading Location: [id number] Physical Exam Const oriented x3 Resp normal [...] Light MD General Surgery Endocrine Surgery Pager: [facility] [address] [place] [address], Outpatient [place], [address] [place] [address] Office: [phone] (2) Pneumoperitoneum: Charges/Coding Visit Charges Inpatient E&M: 85937 Subs Hosp L2 12/05/24 1035 Cosigner Signature (if applicable): CC: ~ Signed [facility]04-12-2025 Discharge summary Author Pardeep Naranjo [facility] Note Date/Time December 04, 2024 3:2 4pm [facility] Medical Records Department [address] [place] [address] Emergency Department Summary 12/04/24 MR#: [id number] Acct: [id number] Name: GERMANIA DONIS Rep #:[id number] : 1945 79 From: Pardeep Davila PCP: Dr. Sowmya Cabrera MD Status :ADM IN [facility] H[facility] HPI - GI History of Present [...] 100 mcg PO QDAY 09/27/24 11/03/24 History iqwhbpsp-xctqhmxm-bdorv acid 240 1 tab PO DAILY 11/03/24 History mcg-vit K1 150 mcg-herb 357 tablet (Alive Women's 50 Plus Ultra Multivitamin) vitamins A,C,K-uhgy-uuvcgl 4,296 1 cap PO BID 09/27/24 11/03/24 [...] 83.2 H Lymph % (Auto) 9.5 L Otoe % (Auto) 6.5 Eos % (Auto) 0.3 [...] Sl. Cloudy Urine pH 6.0 Ur Specific [place] 1.010 Urine Protein 15 H Urine Glucose [...] at 10:34 a.m. on 12/04/2024. Reading Location: [id number] Management Discussion w/another healthcare provider: Road Engineer (Dr Light) and Radiologist Discharge Plan Dx/Rx/DC Orders Clinical Impression: Perforated small intestine, Intra-abdominal abscess, Pneumoperitoneum, Abdominal pain, acute Disposition Disposition: Acute Care [facility] What to do if you have Problems For any increased pain, shortness of breath, bleeding, nausea or vomiting, chestpain, or any unexpected problems, contact your Primary Care Provider. Call [facility] ([phone]) or report to the closest Emergency Room. Call 911 if necessary. 12/04/24 1524 <Electronically signed by Pardeep Naranjo DO> Cosigner Signature (if applicable): CC: Dr. Sowmya Cabrera MD ~ Signed [facility] Work Phone: 1(379) 698-690604-12-2025 Consult note Author Pardeep Pierre [facility] Note Date/Time December 04, 2024 3:0 0pm [facility] Medical Records Department [address] [place] [address] Anesthesia Postop Eval II 12/04/24 1459 MR#: [id number] Acct: [id number] Name: GERMANIA DONIS Rep #:[id number] : 1945 79 From: Pardeep Lara PCP: Dr. Sowmya Cabrera MD Status :ADM IN Y Race: C Location: [place] 648587 -1 Anesthesia Postop Eval I Sum Postop [...] MD Cosigner Signature: Date CC: ~ Signed [facility] Work Phone: 1(373) 797-374104-12-2025 Consult note Author Pardeep [facility] Note Date/Time December 04, 2024 2:5 9pm [facility] Medical Records Department [address] [place] [address] Anesthesia Postop Eval I 12/04/241456 MR#: [id number] Acct: [id number] Name: GERMANIA DONIS Rep #:[id number] : 1945 79 From: Pardeep Lara PCP: Dr. Sowmya Cabrera MD Status :ADM IN Y Race: C Location: [place] [address] Anesthesia: Postop Eval I Current Vital Signs [...] Postop Eval 1 completed: Yes 12/04/24 1459 <Electronically signed by Pardeep Pierre MD> Date _ Pardeep Pierre MD Cosigner Signature: Date CC: ~ Signed [facility] Work Phone: 1(781) 118-949504-12-2025 Discharge summary [facility] Medical Records Department [address] [place] [address] Emergency Department Summary 12/04/24 MR#: [id number] Acct: [id number] Name: GERMANIA DONIS Rep #:[id number] : 1945 79 From: Pardeep Davila PCP: Dr. Sowmya Cabrera MD Status :ADM IN [facility] HPI HPI - GI History of Present [...] 100 mcg PO QDAY 09/27/24 11/03/24 History gjfxxdgi-qimhsiay-plazt acid 240 1 tab PO DAILY 11/03/24 History mcg-vit K1 150 mcg-herb 357 tablet (Alive Women's 50 Plus Ultra Multivitamin) vitamins A,C,W-xzjo-hanpfx 4,296 1 cap PO BID 09/27/24 11/03/24 [...] 83.2 H Lymph % (Auto) 9.5 L Otoe % (Auto) 6.5 Eos % (Auto) 0.3 [...] Sl. Cloudy Urine pH 6.0 Ur Specific Quincy 1.010 Urine Protein 15 H Urine Glucose [...] at 10:34 a.m. on 12/04/2024. Reading Location: [id number] Management Discussion w/another healthcare provider: Road Engineer (Dr Light) and Radiologist Discharge Plan Dx/Rx/DC Orders Clinical Impression: Perforated small intestine, Intra-abdominal abscess, Pneumoperitoneum, Abdominal pain, acute Disposition Disposition: Acute Care [facility] What to do if you have Problems For any increased pain, shortness of breath, bleeding, nausea or vomiting, chestpain, or any unexpected problems, contact your Primary Care Provider. Call [employer] [facility] ([phone]) or report tothe closest Emergency Room. Call 911 if necessary. 12/04/24 1524 Cosigner Signature (if applicable): CC: Dr. Sowmya Cabrera MD ~ Signed [facility]04-12-2025 Consult note [facility] Medical Records Department [address] [place] [address] Anesthesia Postop Eval II 12/04/24 1459 MR#: [id number] Acct: [id number] Name: GERMANIA DONIS Rep #:[id number] : 1945 79 From: Pardeep Lara PCP: Dr. Sowmya Cabrera MD Status :ADM IN Y Race: C Location: [place] [address] Anesthesia Postop Eval I Sum Postop Eval [...] No 12/04/24 1500 MD> Date _ Pardeep Jain Signature: Date CC: ~ Signed [facility]04-12-2025 Consult note [facility] Medical Records Department [address] [place] [address] Anesthesia Postop Eval I 12/04/241456 MR#: [id number] Acct: [id number] Name: GERMANIA DONIS Rep #:[id number] : 1945 79 From: Pardeep Lara PCP: Dr. Sowmya Cabrera MD Status :ADM IN Race: C Location: [place] [address] Anesthesia: Postop Eval I Current Vital Signs [...] document: Postop Eval 1 completed: Yes 12/04/241458 > Date _ Pardeep Jain Signature: Date CC: ~ Signed [facility]04-12-2025 Consult note Author Pardeep Pierre [facility] Note Date/Time December 04, 2024 12: 37pm [facility] Medical Records Department [address] [place] [address] Pre-Anesthesia Evaluation 12/04/24 1205 MR#: [id number] Acct: [id number] Name: GERMANIA DONIS Rep #:[id number] : 1945 79 From: Pardeep Lara PCP: Dr. 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: Anesthesia History - english language learner teacher Hx Hospitalization No 10/21/24 10:11 Any Problems [...] Any additional information?: No PONV PONV - english language learner teacher: PONV - english language learner teacher Female HX of Motion Sickness HX of N/V After Surgery Non-Smoker Duration of Surgery greater than 60 minutes Number of Risk Factors PONV Score Any additional information?: No Height & Weight Height & Weight: Anesthesia: Height & Weight Height 5 ft 2 in 12/04/24 07:33 Weight: 65.771 kg 12/04/24 07:33 Body Mass Index (BMI) 26.5 12/04/24 07:33 Respiratory Assessment Respiratory Assessment - english language learner teacher: Respiratory Tract Infection Hx - english language learner teacher Hx Respiratory Tract Infection No 10/21/24 10:11 STOP Sleep Apnea STOP Sleep Apnea - english language learner teacher: STOP Sleep Apnea - english language learner teacher Hx Hypertension No 10/21/24 10:11 Hx Sleep [...] Tobacco Use History Tobacco Use History - english language learner teacher: Tobacco Use History - english language learner teacher Tobacco Use Smoking Status Never smoker 12/04/24 07:55 Hx Tobacco Use No 10/21/24 10:11 Years Smoking Packs Smoked per Day Smoking Cessation Date was within the last 15 years Hx Smoking Cessation Date Hx Smoking Cessation Counseling Hematologic Medial History Hematologic Hx - english language learner teacher: Hematologic Medical Hx - telecom assistant Hx of Blood Transfusion Hx of Transfusion in last 3 Months Date of Last Transfusion (if within last 3 months) Ever experience any problems with transfusion(s)? Specify any problems Hx of Preganancy in last 3 Months Nurse Filling Out Transfusion & Questions: Date: Time: Patient unable to answer at this time (ie. confused, unrespo /Reproduction History /Reproductive History - english language learner teacher: /Reproductive Hx- english language learner teacher Hx Now Gestational Age (in weeks): EDC: [...] 100 mcg PO DAILY 5 12/03/24 History hzucghok-ejrnlmhb-tltbf acid 240 1 tab PO DAILY 12/03/24 History mcg-vit K1 150 mcg-herb 357 tablet (Alive Women's 50 Plus Ultra Multivitamin) vitamins A,C,W-dwtl-rywdxc 4,296 1 cap PO BID 09/27/24 12/03/24 [...] MD Cosigner Signature: Date CC: ~ Signed [facility] Work Phone: 1(844) 381-117604-12-2025 History and physical note Author Darrick Light [facility] Note Date/Time December 04, 2024 11: 41am [facility] Medical Records Department [address] [place] [address] History & Physical Exam 12/04/24 1125 MR#: [id number] Acct: [id number] Name: GERMANIA DONIS Rep #:[id number] : 1945 79 From: Darrick Lara PCP: Dr. Sowmya Cabrera MD Status :REG ER Location: ED HPI - General General Date of Admission: 12/04/24 Chief Complaint: Acute onset abdominal pain and anorexia HPI Narrative GERMANIA DONIS, is a 79 F who presents with her to [facility] due to complaints of acute onset abdominal [...] 100 mcg PO QDAY 09/27/24 11/03/24 History yrsqhzmk-aozswyfy-kfhsy acid 240 1 tab PO DAILY 11/03/24 History mcg-vit K1 150 mcg-herb 357 tablet (Alive Women's 50 Plus Ultra Multivitamin) vitamins A,C,G-qcxa-uaunut 4,296 1 cap PO BID 09/27/24 11/03/24 [...] 83.2 H, Lymph % (Auto) 9.5 L, Otoe % (Auto) 6.5, Eos % (Auto) 0.3, [...] Sl. Cloudy, Urine pH 6.0, Ur Specific Quincy 1.010, Urine Protein 15 H, Urine Glucose [...] at 10:34 a.m. on 12/04/2024. Reading Location: [facility] Assessment & Plan Assessment/Plan (1) Perforated small [...] indicated. [facility] to monitorfor pain control and advancement of the diet. Darrick Light MD General Surgery Endocrine Surgery Pager: [facility] [address] [place] [address], [facility], [address] [place] [address] Office: [phone] (2) Pneumoperitoneum: Charges/Coding Visit Charges Inpatient E&M: 50110 Init Hosp L2 12/04/24 1141 <Electronically signed by Darrick Light MD> Cosigner Signature (if applicable): CC: Dr. Sowmya Cabrera MD; Dr. Darrick Light MD~ Signed [facility] Work Phone: 1(640) 541-425304-12-2025 Consult note [facility] Medical Records Department [address] [place] [address] Pre-Anesthesia Evaluation 12/04/24 1205 MR#: [id number] Acct: [id number] Name: GERMANIA DONIS Rep #:[id number] : 1945 79 From: Pardeep Lara PCP: Dr. Sowmya Cabrera MD Status :REG SDC Y Race: C [facility] AC- TBA-1 ASA Classification* ASA Classification ASA Classification: 3 [...] 12/04/24 TSH 2.500 uIU/mL (0.300-4.200) 10/28/24 14:18 03/02/16 COAG Pre-Assessment Diagnosis/Proposed Procedure Planned Operative Procedure(s): Laproscopic Small Bowl removal Anesthesia History Anesthesia History - english language learner teacher: Anesthesia History - english language learner teacher Hx Hospitalization No 10/21/24 10:11 Any Problems [...] Any additional information?: No PONV PONV - english language learner teacher: PONV - english language learner teacher Female HX of Motion Sickness HX of N/V After Surgery Non-Smoker Duration of Surgery greater than 60 minutes Number of Risk Factors PONV Score Any additional information?: No Height & Weight Height & Weight: Anesthesia: Height & Weight Height 5 ft 2 in 12/04/24 07:33 Weight: 65.771 kg 12/04/24 07:33 Body Mass Index (BMI) 26.5 12/04/24 07:33 Respiratory Assessment Respiratory Assessment - english language learner teacher: Respiratory Tract Infection Hx - english language learner teacher Hx Respiratory Tract Infection No 10/21/24 10:11 STOP Sleep Apnea STOP Sleep Apnea - english language learner teacher: STOP Sleep Apnea - english language learner teacher Hx Hypertension No 10/21/24 10:11 Hx Sleep [...] Tobacco Use History Tobacco Use History - english language learner teacher: Tobacco Use History - english language learner teacher Tobacco Use Smoking Status Never smoker 12/04/24 07:55 Hx Tobacco Use No 10/21/24 10:11 Years Smoking Packs Smoked per Day Smoking Cessation Date was within the last 15 years Hx Smoking Cessation Date Hx Smoking Cessation Counseling Hematologic Medial History Hematologic Hx - english language learner teacher: Hematologic Medical Hx - telecom assistant Hx of Blood Transfusion Hx of Transfusion in last 3 Months Date of Last Transfusion (if within last 3 months) Ever experience any problems with transfusion(s)? Specify any problems Hx of Preganancy in last 3 Months Nurse Filling Out Transfusion & Questions: Date: Time: Patient unable to answer at this time (ie. confused, unrespo /Reproduction History /Reproductive History - english language learner teacher: /Reproductive Hx- english language learner teacher Hx Now Gestational Age (in weeks): EDC: [...] 100 mcg PO DAILY 5 12/03/24 History lnkvwvti-yuivinbh-gbdpc acid 240 1 tab PO DAILY 12/03/24 History mcg-vit K1 150 mcg-herb 357 tablet (Alive Women's 50 Plus Ultra Multivitamin) vitamins A,C,P-zhuy-ytwcxf 4,296 1 cap PO BID 09/27/24 12/03/24 [...] rhythm 12/04/24 1237 MD> Date _ Pardeep Christinaigncarrillo Signature: Date CC: ~ Signed [facility]04-12-2025 History and physical note [facility] Medical Records Department [address] [place] [address] History & Physical Exam 12/04/24 1125 MR#: [id number] Acct: [id number] Name: GERMANIA DONIS Rep #:[id number] : 1945 79 From: Darrick Lara PCP: Dr. Sowmya Cabrera MD Status :REG ER Location: ED HPI - General General Date of Admission: 12/04/24 Chief Complaint: Acute onset abdominal pain and anorexia HPI Narrative GERMANIA DONIS, is a 79 F who presents with her to [facility] due to complaints of acute onset abdominal [...] 100 mcg PO QDAY 09/27/24 11/03/24 History uhaxglyo-jwxczxiw-hapjp acid 240 1 tab PO DAILY 11/03/24 History mcg-vit K1 150 mcg-herb 357 tablet (Alive Women's 50 Plus Ultra Multivitamin) vitamins A,C,O-idib-gndlur 4,296 1 cap PO BID 09/27/24 11/03/24 [...] 83.2 H, Lymph % (Auto) 9.5 L, Otoe % (Auto) 6.5, Eos % (Auto) 0.3, [...] Sl. Cloudy, Urine pH 6.0, Ur Specific Quincy 1.010, Urine Protein 15 H, Urine Glucose [...] at 10:34 a.m. on 12/04/2024. Reading Location: [id number] Assessment & Plan Assessment/Plan (1) Perforated small [...] as indicated. [facility] pain control and advancement of the diet. Darrick Light MD General Surgery Endocrine Surgery Pager: [facility] [address] [place] [address], Outpatient [place] [facility], [address] [place] [address] Office: [phone] (2) Pneumoperitoneum: Charges/Coding Visit Charges Inpatient E&M: 66281 Init Hosp L2 12/04/24 1141 Cosigner Signature (if applicable): CC: Dr. Sowmya Cabrera MD; Dr. Darrick Light MD~ Signed [facility]04-12-2025 [facility] Medical Records Department [address] [place] [address] History Physical Exam 12/04/24 1125 MR#: [id number] Acct: [id number] Name: GERMANIA DONIS Rep #: [id number] : 1945 79 From: Darrick Light MD PCP: Dr. Sowmya Cabrera MD Status:REG ER Location: ED HPI - General General Date of Admission: 12/04/24 Chief Complaint: Acute onset abdominal pain and anorexia HPI Narrative GERMANIA DONIS, is a 79 F who presents with her to [facility] due to complaints of acute onset abdominal [...] 100 mcg PO QDAY 09/27/24 11/03/24 History cndzqsyh-kmnpkomn-zoypl acid 240 1 tab PO DAILY 09/27/24 11/03/24 H istory mcg-vit K1 150 mcg-herb 357 tablet (Alive Women's 50 Plus Ultra Multivitamin) vitamins A,C,P-zjsn-oazleg 4,296 1 cap PO BID 09/27/24 11/03/24 [...] 83.2 H, Lymph % (Auto) 9.5 L, Otoe % (Auto) 6.5, Eos % (Auto) 0.3, [...] Bilirubin 0.59, Direct Biliru (more content not included)...[facility]04-12-2025 Radiology Diagnostic study note [facility] Imaging Services [address] [place] [address] Abdomen/Pelvis WITH Contrast MR#: [id number] Acct: [id number] Name: GERMANIA DONIS Rep #: [id number] : 1945 F 79 From: Lorena Stevens MD PCP: Dr. Sowmya Cabrera MD Status: REG ER Study:Abdomen/Pelvis WITH Contrast Date of Ex am: 12/04/24 Exam# [id number] Ordering Dr: Jane Naranjo DO PROCEDURE: ABDOMEN/PELVIS [...] at 10:34 a.m. on 12/04/2024. Reading Location: [facility] CC: Dr. Sowmya Cabrera MD; Dr. Pardeep Naranjo, DO ~ Credit And Collections Representative: Signed [facility]03-13-2025 Consult note Author Cyrus Leung [facility] Note Date/Time November 04, 2024 9:4 0am [facility] Medical Records Department [address] [place] [address] Anesthesia Postop Eval I 11/04/24 0833 MR#: [id number] Acct: [id number] Name: GERMANIA DONIS Rep #:[id number] : 1945 79 From: Cyrus davila CRNA PCP: Dr. Sowmya Cabrera MD Status :REG SDC Y Race: C Location: [place] [address] Anesthesia: Postop Eval I Current Vital Signs [...] completed: Yes 11/04/24 0940 <Electronically signed by Cyrus flowers CRNA> Date _ Cyrus Leung CRNA Cosigner Signature: Date CC: ~ Signed [facility] Work Phone: 1(525) 552-317703-13-2025 Discharge summary Author Shelly Leonard [facility] Note Date/Time November 04, 2024 8:1 0am [facility] Medical Records Department [address] [place] [address] Instructions for Home/Discharge Instructions 11/04/24 0808 MR#: [id number] Acct: [id number] Name: GERMANIA DONIS Rep #:[id number] : 1945 79 From: Shelly Leonard MD PCP: Dr. Sowmya Cabrera MD Status :REG [facility] Discharge Instructions Diet Discharge Diet: Light diet [...] weeks; after 5 PM and on call [phone] with any concerns. Test Results: Test results [...] the other half the bottle. Print Language: Mongolian Discharge Orders/Prescriptions Prescriptions: New oxycodone 5 mg [...] CC: Dr. Sowmya Cabrera MD ~ Signed [facility] Work Phone: 1(660) 706-269003-13-2025 Consult note [facility] Medical Records Department [address] [place] [address] Anesthesia Postop Eval I 11/04/24 0833 MR#: [id number] Acct: [id number] Name: GERMANIA DONIS Rep #:[id number] : 1945 79 From: Cyrus davila PLANE TENDER PCP: Dr. Sowmya Cabrera MD Status :REG [place] Y Race: C Location: [place] [address] Anesthesia: Postop Eval I Current Vital Signs [...] Eval 1 completed: Yes 11/04/24 0940 ero PLANE TENDER> Date _ Cyrus Leung PLANE TENDER Cosigner Signature: Date CC: ~ Signed [facility]03-13-2025 History and physical note Author Shelly [facility] Note Date/Time November 04, 2024 7:1 9am [facility] Medical Records Department [address] [place] [address] H&P Exam - Surgical 11/04/24 0717 MR#: [id number] Acct: [id number] Name: GERMANIA DONIS Rep #:[id number] : 1945 79 From: Shelly Leonard MD PCP: Dr. Sowmya Cabrera MD Status :REG [facility] Location: [address] HPI - General General Date of Service: [...] 100 mcg PO QDAY 09/27/24 11/03/24 History hcogdkwj-jqrnkjnl-qdftm acid 240 1 tab PO DAILY 11/03/24 History mcg-vit K1 150 mcg-herb 357 tablet (Alive Women's 50 Plus Ultra Multivitamin) vitamins A,C,C-blsr-wjcaxd 4,296 1 cap PO BID 09/27/24 11/03/24 [...] further questions time. Shelly Leonard M.D. Pager: [phone] [facility] [address] [place] [address], [address] [place] [address] Office: [phone] 11/04/24 0719 <Electronically signed by Shelly Leonard MD> Cosigner Signature (if applicable): CC: Dr. Sowmya Cabrera MD; Dr. Shelly Leonard MD~ Signed [facility] Work Phone: 1(479) 215-209103-13-2025 Consult note Author Man Link [facility] Note Date/Time November 04, 2024 6:4 6am [facility] Medical Records Department [address] [place] [address] Pre-Anesthesia Evaluation 11/04/24 0637 MR#: [id number] Acct: [id number] Name: GERMANIA DONIS Rep #:[id number] : 1945 79 From: Man Link MD PCP: Dr. Sowmya Cabrera MD Status :REG SDC Y Race: C Location: [place] [address] ASA Classification* ASA Classification ASA Classification: 3 [...] poss Mesh Anesthesia History Anesthesia History - english language learner teacher: Anesthesia History - english language learner teacher Hx Hospitalization No 10/21/24 10:11 Any Problems [...] take am of surgery PONV PONV - english language learner teacher: PONV - english language learner teacher Female Yes 10/21/24 10:11 HX of Motion [...] 11/04/24 06:19 Respiratory Assessment Respiratory Assessment - english language learner teacher: Respiratory Tract Infection Hx - english language learner teacher Hx Respiratory Tract Infection No 10/21/24 10:11 STOP Sleep Apnea STOP Sleep Apnea - english language learner teacher: STOP Sleep Apnea - english language learner teacher Hx Hypertension No 10/21/24 10:11 Hx Sleep [...] Tobacco Use History Tobacco Use History - english language learner teacher: Tobacco Use History - english language learner teacher Tobacco Use Smoking Status Never smoker 10/21/24 10:11 Hx Tobacco Use No 10/21/24 10:11 Years Smoking Packs Smoked per Day Smoking Cessation Date was within the last 15 years Hx Smoking Cessation Date Hx Smoking Cessation Counseling Hematologic Medial History Hematologic Hx - english language learner teacher: Hematologic Medical Hx - telecom assistant Hx of Blood Transfusion No 10/21/24 10:11 [...] confused, unrespo /Reproduction History /Reproductive History - english language learner teacher: /Reproductive Hx- english language learner teacher Hx Now No 10/21/24 10:11 Gestational Age [...] 19:19 15 mls/hr .Q48H ESTEPHANIE Administration Protocol PFSH Medical History Wears glasses Wears partial dentures [...] 100 mcg PO QDAY 09/27/24 11/03/24 History vlpjrngn-kcncmtzv-nwuce acid 240 1 tab PO DAILY 11/03/24 History mcg-vit K1 150 mcg-herb 357 tablet (Alive Women's 50 Plus Ultra Multivitamin) vitamins A,C,Y-wrbd-fysjct 4,296 1 cap PO BID 09/27/24 11/03/24 [...] MD Cosigner Signature: Date CC: ~ Signed [facility] Work Phone: 1(719) 156-527503-13-2025 Procedure note [facility] Medical Records Department [address] [place] [address] Operative Report 11/04/24804 MR#: [id number] Acct: [id number] Name: GERMANIA DONIS Rep #:[id number] : 1945 79 From: Shelly Leonard MD PCP: Dr. Sowmya Cabrera MD Status :[facility] Location: [place] [address] Operative Report (Standard) Operative Information Date of Procedure: 11/04/24 Pre-Operative Diagnosis: Umbilical hernia Post-Operative Diagnosis: Same Surgery/Procedure Performed: Umbilical hernia repair with mesh masking machine operator: Yes Residential Door Unit Installer: Timoteo Ruiz Tasks completed by buyer assistant: Opening & closing Type of Anesthesia: [...] hernia patch 4.3 cm in diameter, Lot [id number] ref [id number] Special Medications: Ancef 2 g IV x [...] suture.The hernia defect was closed with a cbpoon-vt-zqgiw 0 Nurolon. The wound was irrigated with [...] Cabrera MD; Dr. Shelly Leonard MD~ Signed [facility]03-13-2025 Discharge summary [facility] Medical Records Department [address] [place] [address] Instructions for Home/Discharge Instructions 11/04/24 0808 MR#: [id number] Acct: [id number] Name: GERMANIA DONIS Rep #:[id number] : 1945 79 From: Shelly Leonard MD PCP: Dr. Sowmya Cabrera MD Status :REG [facility] Discharge Instructions Diet Discharge Diet: Light diet [...] weeks; after 5 PM and on call [phone] with any concerns. Test Results: Test results from this visit will be discussed in further detail at your follow- up appointment, if applicable. Discharge Plan Admission Attending Provider: Shelly eLonard Primary Care Provider: Sowmya Cabrera Instructions Additional [...] the other half the bottle. Print Language: Mongolian Discharge Orders/Prescriptions Prescriptions: New oxycodone 5 mg [...] CC: Dr. Sowmya Cabrera MD ~ Signed [facility]03-13-2025 Evaluation note* Diagnosis Onset Date Resolution Status Admit Date Umbilical hernia resolved November 042024 5:26am S/P umbilical hernia repair, follow-up exam acute November 19, 2024 9:54am Abdominal pain, acute resolved Nov 2:29pm Intra-abdominal abscess resolved A 2024 2:29pm Perforated small intestine resolved December 04, 2024 2:29pm Pneumoperitoneum resolved December 042024 2:29pm S/P small bowel resection acute December 20, 2024 9:56am [facility] Work Phone: 1(855) 928-776503-13-2025 Evaluation note* Diagnosis Onset Date Resolution Status Admit Date Umbilical hernia resolved November 042024 5:26am S/P umbilical hernia repair, follow-up exam acute November 19, 2024 9:54am Abdominal pain, acute resolved Nov 2:29pm Intra-abdominal abscess resolved A 2024 2:29pm Perforated small intestine resolved December 04, 2024 2:29pm Pneumoperitoneum resolved December 042024 2:29pm S/P small bowel resection acute December 20, 2024 9:56am Small bowel obstruction acute J formerly [facility] 2024 2:10am [facility] Work Phone: 1(544) 109-214303-13-2025 Evaluation note* Diagnosis Onset Date Resolution Status Admit Date Umbilical hernia resolved November 042024 5:26am S/P umbilical hernia repair, follow-up exam acute November 19, 2024 9:54am Abdominal pain, acute resolved Apr 2024 2:29pm Intra-abdominal abscess resolved A pril 2024 2:29pm Perforated small intestine resolved December 04, 2024 2:29pm Pneumoperitoneum resolved December 042024 2:29pm S/P small bowel resection acute December 20, 2024 9:56am Small bowel obstruction resolved J [facility] 2024 2:10am [facility] Work Phone: 1(261) 740-123703-13-2025 History and physical note [facility] Medical Records Department [address] [place] [address] H&P Exam - Surgical 11/04/24 0717 MR#: [id number] Acct: [id number] Name: GERMANIA DONIS Rep #:[id number] : 1945 79 From: Shelly Leonard MD PCP: Dr. Sowmya Cabrera MD Status :[facility] Location: [place] [address] HPI - General General Date of Service: [...] 100 mcg PO QDAY 09/27/24 11/03/24 History veesgygg-kshcroex-fnmqw acid 240 1 tab PO DAILY 11/03/24 History mcg-vit K1 150 mcg-herb 357 tablet (Alive Women's 50 Plus Ultra Multivitamin) vitamins A,C,N-zbju-lcqvwd 4,296 1 cap PO BID 09/27/24 11/03/24 [...] further questions time. Shelly Leonard M.D. Pager: [phone] [facility] [address] [place] [address], [facility], [address] [place] [address] Office: [phone] 11/04/24 0719 Cosigner Signature (if applicable): CC: Dr. Sowmya Cabrera MD; Dr. Shelly Leonard MD~ Signed [facility]03-13-2025 Consult note [facility] Medical Records Department [address] [place] [address] Pre-Anesthesia Evaluation 11/04/2437 MR#: [id number] Acct: [id number] Name: GERMANIA DONIS Rep #:[id number] : 1945 79 From: Man Link MD PCP: Dr. Sowmya Cabrera MD Status :REG [facility] Y Race: C Location: [place] [address] ASA Classification* ASA Classification ASA Classification: 3 [...] poss Mesh Anesthesia History Anesthesia History - english language learner teacher: Anesthesia History - english language learner teacher Hx Hospitalization No 10/21/24 10:11 Any Problems [...] take am of surgery PONV PONV - english language learner teacher: PONV - english language learner teacher Female Yes 10/21/24 10:11 HX of Motion [...] 11/04/24 06:19 Respiratory Assessment Respiratory Assessment - english language learner teacher: Respiratory Tract Infection Hx - english language learner teacher Hx Respiratory Tract Infection No 10/21/24 10:11 STOP Sleep Apnea STOP Sleep Apnea - english language learner teacher: STOP Sleep Apnea - english language learner teacher Hx Hypertension No 10/21/24 10:11 Hx Sleep [...] Tobacco Use History Tobacco Use History - english language learner teacher: Tobacco Use History - english language learner teacher Tobacco Use Smoking Status Never smoker 10/21/24 10:11 Hx Tobacco Use No 10/21/24 10:11 Years Smoking Packs Smoked per Day Smoking Cessation Date was within the last 15 years Hx Smoking Cessation Date Hx Smoking Cessation Counseling Hematologic Medial History Hematologic Hx - english language learner teacher: Hematologic Medical Hx - telecom assistant Hx of Blood Transfusion No 10/21/24 10:11 [...] confused, unrespo /Reproduction History /Reproductive History - english language learner teacher: /Reproductive Hx- english language learner teacher Hx Now No 10/21/24 10:11 Gestational Age [...] 100 mcg PO QDAY 09/27/24 11/03/24 History wzawdjhn-ynghesvn-magax acid 240 1 tab PO DAILY 11/03/24 History mcg-vit K1 150 mcg-herb 357 tablet (Alive Women's 50 Plus Ultra Multivitamin) vitamins A,C,D-hmkh-khrbgn 4,296 1 cap PO BID 09/27/24 11/03/24 [...] MD Cosigner Signature: Date CC: ~ Signed [facility]02-03-2025 Evaluation note* Diagnosis Onset Date Resolution Status Admit Date Umbilical hernia acute September 27, 2024 1:58pm Umbilical hernia acute November 042024 5:26am [facility] Work Phone: 1(234) 953-124702-03-2025 Evaluation note* Diagnosis Onset Date Resolution Status Admit Date Umbilical hernia resolved September 27, 2024 1:58pm Umbilical hernia resolved November 042024 5:26am S/P umbilical hernia repair, follow-up exam acute November 19, 2024 9:54am Abdominal pain, acute acute Apr 2024 12:22pm Intra-abdominal abscess acute A pril 2024 12:22pm Perforated small intestine acute December 04, 2024 12:22pm Pneumoperitoneum acute December 042024 12:22pm [facility] Work Phone: 1(397) 970-349602-03-2025 Evaluation note* Diagnosis Onset Date Resolution Status Admit Date Umbilical hernia resolved September 27, 2024 1:58pm Umbilical hernia resolved November 042024 5:26am S/P umbilical hernia repair, follow-up exam acute November 19, 2024 9:54am Abdominal pain, acute acute Apr 2024 2:29pm Intra-abdominal abscess acute A 2024 2:29pm Perforated small intestine acute December 04, 2024 2:29pm Pneumoperitoneum acute December 042024 2:29pm [facility] Work Phone: 1(152) 972-807802-03-2025 Evaluation note* Diagnosis Onset Date Resolution Status [...] bowel resection acute December 20, 2024 9:56am [facility] Work Phone: 1(235) 737-294110-02-2024 Consult note Author Man Link [facility] Note Date/Time November 04, 2024 11: 23am [facility] Medical Records Department [address] [place] [address] Anesthesia Postop Eval II 11/04/24 1122 MR#: [id number] Acct: [id number] Name: GERMANIA DONIS Osmel Rep #:[id number] : 1945 79 From: Man Link MD PCP: Dr. Sowmya Cabrera MD Status :DEP [facility] Y Race: C Location: [facility] Anesthesia Postop Eval I Sum Postop Eval Completion status Anesthesia document: Postop Eval 1 completed: Yes Anesthesia Postop Eval I Summary Anesthesia Postop Eval I Summary: Anesthesia Postop Eval I: Assessment Summary Airway patent Yes 11/04/24 09:40 PLANE TENDER.ACAR Spontaneous unlabored Yes 11/04/24 09:40 PLANE TENDER.ACAR respirations Mental status nausea No 11/04/24 09:40 PLANE TENDER.ACAR Vomiting No 11/04/24 09:40 PLANE TENDER.ACAR Anesthesia Postop Eval I: Fluid Summary Crystalloid volume administer 1,000 11/04/24 09:40 PLANE TENDER.ACAR (ml) Colloids volume administered ( ml) Blood Product volume administered (ml) Total IV fluid infused 1,000 11/04/24 09:40 PLANE TENDER.ACAR Anesthesia Postop Eval I: Summary Notes Anesthesia Complication No 11/04/24 09:40 PLANE TENDER.ACAR Anesthesia Complication Comment: Post-operative progress note Anesthesia: Postop Eval II Evaluation Mental status: Awake Pain Level: 0 nausea: No Vomiting: No Complications Anesthesia Complication: No 11/04/24 1123 <Electronically signed by Man Link MD> Date _ Man Link MD Cosigner Signature: Date CC: ~ Signed [facility] Work Phone: 1(700) 837-382906-02-2023 Discharge summary Author Sary Mejia [facility] January 24, 2023 9:56am Note Date/Time January 24, 2023 9:56a m [facility] Physical Therapy [address] [place] [address] / REHABILITATION SERVICES DISCHARGE SUMMARY MR#: [id number] Acct: [id number] Name: GERMANIA DONIS Rep #: [id number] : 1945 77 From: Sary Mejia PT, Julia. T Referring Dr.: Dr. Mann Cabrera MD Statu s: REG RCR Insurance: MEDICARE PART A B [facility] It has been my pleasure [...] please feel free to call me at [phone]. Thank you for the referral of thispatient. Sincerely, Sary Mejia, PT, Cert MDT Balance/Gait/Functional tests - Balance/Special Test Scores Oswestry Low Back Score: 3 <Electronically signed by Sary Mejia PT, Cert. MDT> 01/24/23 0956 CC: Dr. Mann Cabrera MD ~ ALBARO Signed [facility] Work Phone: Consult note [facility] Medical Records Department [address] [place] [address] Anesthesia Postop Eval II 11/04/24 1122 MR#: [id number] Acct: [id number] Name: GERMANIA DONIS Rep #:[id number] : 1945 79 From: Man Link MD PCP: Dr. Sowmya Cabrera MD Status :DEP [facility] Y Race: C Location: [facility] Anesthesia Postop Eval I Sum Postop Eval Completion status Anesthesia document: Postop Eval 1 completed: Yes Anesthesia Postop Eval I Summary Anesthesia Postop Eval I Summary: Anesthesia Postop Eval I: Assessment Summary Airway patent Yes 11/04/24 09:40 PLANE TENDER.ACAR Spontaneous unlabored Yes 11/04/24 09:40 PLANE TENDER.ACAR respirations Mental status nausea No 11/04/24 09:40 PLANE TENDER.ACAR Vomiting No 11/04/24 09:40 PLANE TENDER.ACAR Anesthesia Postop Eval I: Fluid Summary Crystalloid volume administer 1,000 11/04/24 09:40 PLANE TENDER.ACAR (ml) Colloids volume administered ( ml) Blood Product volume administered (ml) Total IV fluid infused 1,000 11/04/24 09:40 PLANE TENDER.ACAR Anesthesia Postop Eval I: Summary Notes Anesthesia Complication No 11/04/24 09:40 PLANE TENDER.ACAR Anesthesia Complication Comment: Post-operative progress note Anesthesia: Postop Eval II Evaluation Mental status: Awake Pain Level: 0 nausea: No Vomiting: No Complications Anesthesia Complication: No 11/04/24 1123 MD> Date _ Man Link MD Cosigner Signature: Date CC: ~ [facility]igned [facility] Author Darrick Light [facility] Note Date/Time January 30, 2025 4:58p m [facility] Medical Records Department [address] [place] [address] Instructions for Home/Discharge Instructions 01/30/251654 MR#: [id number] Acct: [id number] Name: GERMANIA DONIS Rep #:[id number] : 1945 79 From: Darrick Lara PCP: Dr. Sowmya Cabrera MD Status :ADM IN Discharge Instructions Diet Discharge Diet: - (transitional) DC O2, CPAP, BIPAP needs Home O2 Discharge instructions: No Dressing / Incision Discharge Activity: Return to Normal Activity May resume sexual activity in: No Restrictions Dressing / Incision Call your doctor if you observe: Inability to have a bowel movement Follow Up Care Please Follow Up With: Darrick Light MD When: 2-3 weeks Test Results: Test results from this visit will be discussed in further detail at your follow- up appointment, if applicable. Discharge Plan Admission Admit Date/Time: 01/29/25 02:10 Primary Reason for Your Visit: small bowel obstruction Attending Provider: Darrick Light Primary Care Provider: Sowmya Cabrera Discharge Orders/Prescriptions Prescriptions: Continued levothyroxine 100 mcg capsule 100 mcg [...] Order can be placed): Home, Self Care 01/30/251657<Electronically signed by Darrick Light MD>Darrick Light MD CC: Dr. Sowmya Cabrera MD ~ Signed [facility] Work Phone: Evaluation noteNo assessment information available [facility] Work Phone: History and physical note Author Darrick Light [facility] Note Date/Time December 04, 2024 11: 41am [facility] Medical Records Department [address] [place] [address] History & Physical Exam 12/04/24 1125 MR#: [id number] Acct: [id number] Name: GERMANIA DONIS Rep #:[id number] : 1945 79 From: Darrick Lara PCP: Dr. Sowmya Cabrera MD Status :REG ER Location: ED HPI - General General Date of Admission: 12/04/24 Chief Complaint: Acute onset abdominal pain and anorexia HPI Narrative GERMANIA DONIS, is a 79 F who presents with her to [facility] due to complaints of acute onset abdominal [...] 100 mcg PO QDAY 09/27/24 11/03/24 History tlmmeyzz-zxkwzcjg-edsti acid 240 1 tab PO DAILY 11/03/24 History mcg-vit K1 150 mcg-herb 357 tablet (Alive Women's 50 Plus Ultra Multivitamin) vitamins A,C,B-vaeu-mtgzca 4,296 1 cap PO BID 09/27/24 11/03/24 [...] 83.2 H, Lymph % (Auto) 9.5 L, Otoe % (Auto) 6.5, Eos % (Auto) 0.3, [...] Sl. Cloudy, Urine pH 6.0, Ur Specific [place] 1.010, Urine Protein 15 H, Urine Glucose [...] at 10:34 a.m. on 12/04/2024. Reading Location: [facility] Assessment & Plan Assessment/Plan (1) Perforated small [...] Light MD General Surgery Endocrine Surgery Pager: [facility] [address] [place] [address], [facility], [address] [place] [address] Office: [phone] (2) Pneumoperitoneum: Charges/Coding Visit Charges Inpatient E&M: 38117 Init Hosp L2 12/04/24 1141 <Electronically signed by Darrick Light MD> Cosigner Signature (if applicable): CC: Dr. Sowmya Cabrera MD; Dr. Darrick Light MD~ Signed [facility] Work Phone: Reason for referral (narrative)No reason for referral information availableWSalem [facility] Work Phone: Summary Purpose Family History No Family History Records Found Relationship Condition Age at Onset Recorded Date/T josey sister Diabetes mellitus Unknown Advance Directives No Advanced Directives Records Found Advance Directive Response Recorded Date/ Time Living Will Yes October 21 11:11am Power of Assistant Professor Of Biology Yes October 21, 2024 11:11am Name of Medical Power of Assistant Professor Of Biology October 21, 2024 11:11am Advance Directive Response Recorded Date/ Time Living Will No December 04, 2024 7:55am Do you have a Healthcare Power of Assistant Professor Of Biology? No December 04, 2024 7:55am Living Will Yes October 21 11:11am Do you have a Healthcare Power of Assistant Professor Of Biology? Yes October 21, 2024 11:11am Name of Medical Power of Assistant Professor Of Biology October 21, 2024 11:11am Advance Directive Response Recorded Date/ Time Living Will No December 04, 2024 3:59pm Do you have a Healthcare Power of Assistant Professor Of Biology? No December 04, 2024 3:59pm Living Will Yes October 21 11:11am Do you have a Healthcare Power of Assistant Professor Of Biology? Yes October 21, 2024 11:11am Name of Medical Power of Assistant Professor Of Biology October 21, 2024 11:11am Advance Directive Response Recorded Date/ Time Living Will No December 04, 2024 3:59pm Do you have a Healthcare Power of Assistant Professor Of Biology? No December 04, 2024 3:59pm Do you have a Healthcare Power of Assistant Professor Of Biology? No January 28, 2025 11:32pm Living Will Yes October 21 11:11am Do you have a Healthcare Power of Assistant Professor Of Biology? Yes October 21, 2024 11:11am Name of Medical Power of Assistant Professor Of Biology October 21, 2024 11:11am Advance Directive Response Recorded Date/ Time Living Will No December 04, 2024 3:59pm Do you have a Healthcare Power of Assistant Professor Of Biology? No December 04, 2024 3:59pm Do you have a Healthcare Power of Assistant Professor Of Biology? unsu re January 29, 2025 3:31am Living Will Yes October 21 11:11am Do you have a Healthcare Power of Assistant Professor Of Biology? 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 RX HERE Nikia r 2023 11:30am UMBILICAL HERNIA September 27, [...] Admit Date BILATERAL SHOULDER PAIN. RX HERE Nikia r 2023 11:30am UMBILICAL HERNIA September 27, [...] 2024 12:22pm Perforated small intestine December 04, 025 12:22pm Pneumoperitoneum December 04, 2024 12: 22pm Chief Complaint Admit Date BILATERAL SHOULDER PAIN. 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, PERSISTANT PARESTHESIAS INT O L ARM October 04, 2024 8:59am Hernia,Open Incisional Repair w/ poss Me November 04, 2024 5:26am Hernia,Open Incisional Repair w/ poss Me November 04, 2024 7:17am HERNIA 3-November 19, [...] poss Me November 04, 2024 7:17am HERNIA -November 19, [...] S/P small bowel resection December 20 9:56am Chief Complaint Admit Date DDD ON XRAY, PERSISTANT PARESTHESIAS INT O [...] 8:46am small bowel resection DOS 12/04 9:56am SBO January 29, 2025 2:10a m Reason for Visit Admit Date Umbilical hernia November 04, 2024 5:2 6am S/P umbilical hernia repair, follow-up e xam November 19, 2024 9:54am Abdominal pain, acute December 04, 2024 2 :29pm Intra-abdominal abscess December 04, 2024 2:29pm Perforated small intestine December 04, 2 025 2:29pm Pneumoperitoneum December 04, 2024 2:2 9pm S/P small bowel resection December 20 9:56am Chief Complaint Admit Date DDD ON XRAY, PERSISTANT PARESTHESIAS INT O L ARM October 04, 2024 8:59am Hernia,Open Incisional Repair w/ poss Me November 04, 2024 5:26am Hernia,Open Incisional Repair w/ poss Me November 04, 2024 7:17am HERNIA 3-November 19, 2024 9:5 4am abd pain December 04, 2024 11: 25am SMALL BOWEL PERFORATION December 04, 2024 2:29pm SMALL BOWEL PERFORATION December 05, 2024 8:21am SMALL BOWEL PERFORATION December 06, 2024 8:38am SMALL BOWEL PERFORATION December 07, 2024 8:46am small bowel resection DOS 12/04 9:56am SBO January 29, 2025 2:10a m SBO January 29, 2025 10:31 am SBO January 30, 2025 8:59a m Reason for Visit Admit Date Umbilical hernia November 04, 2024 5:2 6am S/P umbilical hernia repair, follow-up e xam November 19, 2024 9:54am Abdominal pain, acute December 04, 2024 2 :29pm Intra-abdominal abscess December 04, 2024 2:29pm Perforated small intestine December 04, 2:29pm Pneumoperitoneum December 04, 2024 2:2 9pm S/P small bowel resection December 20 9:56am Small bowel obstruction January 29, 2025 2 :10am Chief Complaint Admit Date Hernia,Open Incisional Repair w/ poss Me sh [...] 8:46am small bowel resection DOS 12/04 9:56am SBO January 29, 2025 2:10a m SBO January 29, 2025 10:31 am SBO January 30, 2025 8:59a m S/P SBO February 11, 2025 9:55 am Additional Source Comments INFORMATION SOURCE (unrecogn ized section and content) DATE CREATED AUTHOR 02/16/2018 [facility] DATE CREATED AUTHOR AUTHOR'S ORGANIZ ATION 09/03/2021 [facility] DATE CREATED AUTHOR AUTHOR'S ORGANIZ ATION 02/15/2025 Arlette [facility]ly [facility], [facility] y [facility] Goals (unrecognized section and content) Goals [...] July 20, 2024 End: July 20, 2024 Team Status: Active Member Role Status Dates Dr. Sowmya Cabrera MD Primary Care Provider Acti ve Start: January 29, 2025 Dr. Selvin Naranjo MD Emergency Provider Active Start: January 29, 2025 Dr. Darrick Light MD Admit Provider Active Sta rt: January 29, 2025 Dr. Darrick Light MD Attending Provider Active Start: January 29, 2025 Team Status: Inactive Member Role Status Dates Dr. Sowmya Cabrera MD Primary Care Provider Acti ve Start: January 29, 2025 End: January 30, 2025 Dr. Selvin Naranjo MD Emergency Provider Active Start: January 29, 2025 End: January 30, 2025 Dr. Darrick Light MD Admit Provider Active Sta rt: January 29, 2025 End: January 30, 2025 Dr. Darrick Light MD Attending Provider Active Start: January 29, 2025 End: January 30, 2025 Team Status: Active Member Role Status Dates Dr. Sowmya Cabrera MD Primary Care Provider Acti ve Start: January 29, 2025 Dr. Selvin Naranjo MD Emergency Provider Active Start: January 29, 2025 Dr. Darrick Light MD Admit Provider Active Sta rt: January 29, 2025 Dr. Darrick Light MD Attending Provider Active Start: January 29, 2025 Dr. Darrick Light MD Other Provider Active Sta rt: January 29, 2025 Team Status: Active Member Role Status Dates Dr. Sowmya Cabrera MD Primary Care Provider Acti ve Start: January 30, 2025 Dr. Selvin Naranjo MD Emergency Provider Active Start: January 30, 2025 Dr. Darrick Light MD Admit Provider Active Sta rt: January 30, 2025 Dr. Darrick Light MD Attending Provider Active Start: January 30, 2025 Dr. Darrick Light MD Other Provider Active Sta rt: January 30, 2025 Team Status: Inactive Member Role Status Dates Dr. Sowmya Cabrera MD Primary Care Provider Acti ve Start: February 11, 2025 End: February 11, 2025 Dr. Sowmya Cabrera MD Referring Provider Active Start: February 11, 2025 End: February 11, 2025 Dr. Darrick Light MD Attending Provider Active Start: February 11, 2025 End: February 11, 2025 FOR RECORDS PERTAINING TO PATIENTS WHO ARE [...] BE BASED ON THE PRIMARY CLINICAL RECORDS. [employer] [facility]. provides no warranty or guarantee of the accuracy or completeness of information in this document.
[2025-02-20 17:04] LABS: Anion Gap 11 (5-15); BUN 11 mg/dL (4-19); BUN/Creat Ratio 14.9 RATIO (10-20); Calcium,Total 9.1 mg/dL (7.6-11.0); Carbon Dioxide 23.3 mmol/L (21.0-32.0); Chloride 103 mmol/L (98-108); Estimated Creatinine Clearance 48.95 ml/min (50-250); Glucose 92 mg/dL (70-99); Potassium 4.1 mmol/L (3.3-5.1)
[2025-02-20 17:19] VITALS: TEMP 37.3
[2025-02-20 19:00] VITALS: BP 132/75; O2SAT 97
[2025-02-20 19:05] VITALS: BP 132/75; PULSE 78; RESP 18; TEMP 36.6; O2SAT 97
--- OUTSIDE RECORDS SUMMARY | 2025-02-20 19:08 | XMS RPT_ITS | CCD ---
Author Organization [facility] CliniSywy Care Team Providers Care Die Stamper Name Role Phone JUANITA COATS Unavailable Unavailabl e PABLO HENDRICKSON (PA) Unavailable Unavailable Dr. Mann Cabrera Primary Care Provider Dr. Jitendra Cabrera Attending Provider Deborah ORDAZ, Dr. Avila Primary Care Provider Dr. Sowmya Cabrera MD Attending Provider Dr. Sowmya Cabrera MD Referring Provider [phone] Lex Rhoades MD Attending Provider [phone] Shelly Leonard MD Attending Provider [phone] Dr. Shelly Leonard MD Referring Provider Dr. Shelly Leonard MD Other Provider Dr. Sowmya Cabrera MD Primary Care Provider Dr. Sowmya Cabrera MD Referring Provider Dr. Sowmya Cabrera MD Attending Provider Dr. Pardeep Naranjo DO Emergency Provider Dr. Darrick Light MD Attending Provider Kuldeep ORDAZ, Dr. Hollingsworth Admit Provider [phone] Darrick Light MD Other Provider Eleonora Montaño PA-C Attending Provider Dr. Sowmya Cabrera MD Primary Care Provider Dr. Sowmya Cabrera MD Primary Care Provider Dr. Sowmya Cabrera MD Referring Provider Aisha ORDAZ, Dr. Bravo Attending Provider Eleonora Montaño PA-C Attending Provider Marcella ORDAZ, Dr. Montalvo Emergency Provider Deborah ORDAZ, Dr. Avila Primary Care Provider Deobrah ORDAZ, Dr. Avila Referring Provider Darrick Light Attending Unavailable Ranney, Christopher Primary Care Unavailable Ranney, Christopher Referring Unavailable Ranney, Christsamira Attending Unavailable Ranney, Christopher Primary Care Unavailable Verona, Lex Attending Unavailable Ranney, Christopher Primary Care Unavailable Darrick Light Attending Unavailable Ranney, Christopher Primary Care Unavailable Darrick Light Consulting Unavailable Darrick Light Admitting Unavailable Eleonora Benedict Attending Unavailable Darrick Light Attending Unavailable Ranney, Christopher Primary Care Unavailable Darrick Light Admitting Unavailable Ranney, Christopher Primary Care Unavailable Robotham, Shelly Referring Unavailable Robotham, Shelly Attending Unavailable Ranney, Christopher Referring Unavailable Ranney, Christopher Attending Unavailable Ranney, Christopher Primary Care Unavailable Ranney, Christopher Primary Care Unavailable Estuardo Montoya Attending Unavailable Ranney, Christopher Primary Care Unavailable Robotham, Shelly Referring Unavailable Robotham, Shelly Attending Unavailable Robotham, Shelly Consulting Unavailable Darrick Light Attending Unavailable Ranney, Christopher Primary Care Unavailable Darrick Light Admitting Unavailable Ranney, Christopher Referring Unavailable Ranney, Christsamira Attending Unavailable Ranney, Christopher Primary Care Unavailable Ranney, Christopher Primary Care Unavailable Verona, Chalon Referring Unavailable VeronaNickon Attending Unavailable Darrick Light Attending Unavailable Ranney, Christopher Referring Unavailable Ranney, Christopher Primary Care Unavailable Darrick Light Attending Unavailable Ranney, Christopher Referring Unavailable Ranney, Christopher Primary Care Unavailable Ranney, Christopher Primary Care Unavailable Ranney, Christopher Referring Unavailable Robotham, Shelly Attending Unavailable Ranney, Christopher Primary Care Unavailable Ranney, Christopher Referring Unavailable Robotham, Shelly Attending Unavailable CarlostzDarrick Admitting Unavailable Darrick Light Attending Unavailable Darrick Light Consulting Unavailable Ranney, Christopher Primary Care Unavailable Medications Current Medications Medication [...] PO DAILY September 27, 2024 1:00am Mv-Mn-Folic Wszj-V1-Nsqh 357 (Alive Women's 50 Plus Ultra Mv) 240-150 mcg tablet (7 sources) Start: 09-27-2024 Mv-Mn-Folic Erdj-C2-Xzif 357 (Alive Women's 50 Plus Ultra Mv) 240-150 mcg tablet Active 1 {tbl} PO DAILY September 27, 2024 1:00am Vitamins A,C,W-Nmwe-Kxqvoz (Preservision Areds) 4,296 mcg-226 mg-90 mg capsule (7 sources) Start: 09-27-2024 Vitamins A,C,V-Ybjm-Wojfwg (Preservision Areds) 4,296 mcg-226 mg-90 mg capsule [...] Problem Date Documented Da te Episodic/Chronic Abdominal pain (14 sources) Acute abdominal pain; [...] obstruction or gangrene] Onset: 11-16-2024 09-27-2024 Episodic Other lower respiratory disease (1 source) Cough; [...] [Pain in left shoulder] Onset: 04-30-2024 Episodic Results Test Name Value Interpretation Reference Range Facility Abdomen/Pelvis W IV Cont ONL Yon 02-20-2025 Abdomen/Pelvis W IV Cont ONLY [facility] Imaging Services [address] [place] [address] Abdomen/Pelvis W IV Cont ONLY MR#: [id number] Acct: [id number] Name: GERMANIA DONIS Rep #: [id number] : 1945 F 79 From: Ray Lara PCP: Dr. Sowmya Cabrera MD Status: REG ER Study: Abdomen/Pelvis W IV Cont ONLY Date of Exam: Exam# [id number] Ordering Dr: Henrietta Reardon PROCEDURE: ABDOMEN/PELVIS W IV CONT ONLY 02/20/2025 REASON FOR EXAM: ABDOMINAL PAIN TECHNIQUE: ABDOMEN/PELVIS W IV CONT ONLY Coronal and Sagittal reconstruction series were provided. CONTRAST: 100 mL of Isovue 370 One or more dose reduction techniques were used (e.g., Automated exposure control, adjustment of the mA and/or kV according to patient size, use of iterative reconstruction technique. RADIATION DOSE SUMMARY: DLP: 620 mGycm COMPARISON: None FINDINGS: Lingular consolidation may reflect subsegmental atelectasis, early stages of pneumonia, and/or aspiration. The liver, spleen, pancreas, and both adrenal glands demonstrate no acute findings. Nonspecific slight thickening of the gallbladder wall which may be due to nondistention. The stomach is unremarkable. Small bowel resection is noted within the left hemiabdomen scattered fluid and inflammation about the small bowel may reflect enteritis. The appendix is normal. No colonic obstruction. Extensive colonic diverticulosis without acute diverticulitis. There is no free air or significant free fluid. The kidneys are unremarkable. The urinary bladder is distended. The pelvic structures are intact. There is no solid pelvic mass. Internal swirling of mesentery may reflect internal herniation. No significant lymphadenopathy. The aorta and IVC demonstrate no acute findings. Extensive atherosclerosis of the abdominal vasculature. Visualized osseous structures demonstrate no acute abnormality. Extensive multilevel degenerative changes of the lumbar spine. Postoperative changes of the anterior abdominal wall at midline. CT/Abdomen/Pelvis W IV Cont ONLY IMPRESSION: 1) small bowel resection within the left hemiabdomen. Scattered fluid and inflammation about the small bowel may reflect enteritis. No bowel obstruction. 2) Swirling of the mesentery within the mid abdomen may reflect internal herniation. 3) Extensive colonic diverticulosis without acute diverticulitis. 4) nonspecific slight thickening of the gallbladder wall which may be due to nondistention. Consider right upper quadrant ultrasound if there is concern for cholecystitis. 5) lingular consolidation may reflect subsegmental atelectasis, early stages of pneumonia, and/or aspiration. Reading Location: [id number] CC: Dr. Sowmya Cabrera MD; AD Peterson [employer] L[employer] Fixer: Signed Normal [facility] Basic Metabolic Profile (BMP )on 02-20-2025 BUN/CRE 14.9 RATIO Normal 10-20 [facility] Comment on above: Performed By: #### L 500.2500, L100.0100, L503.6005 ####[facility] [address] [place], [address] Calcium [Mass/Vol] 9.1 mg/dL Normal 7.6-11.0 [facility] Comment on above: Performed By: #### L 500.2500, L100.0100, L503.6005 ####[facility] [address] [place], [address] Chloride [Moles/Vol] 103 mmol/L Normal 98-108 [facility] Comment on above: Performed By: #### L 500.2500, L100.0100, L503.6005 ####[facility] [address] [place], [address] CO2 [Moles/Vol] 23.3 mmol/L Normal 21.0-32.0 [facility] Comment on above: Performed By: #### L 500.2500, L100.0100, L503.6005 ####[facility] [address] [place], [address] Creatinine [Mass/Vol] 0.75 mg/dL Normal 0.70-1.20 [facility] Comment on above: Performed By: #### L 500.2500, L100.0100, L503.6005 ####[facility] [address] [place], [address] ECRCL 48.95 ml/min Low 50-250 [facility] Comment on above: Performed By: #### L 500.2500, L100.0100, L503.6005 ####[facility] [address] [place], [address] GAP 11 Normal 5-15 [facility] Comment on above: Performed By: #### L 500.2500, L100.0100, L503.6005 ####[facility] [address] [place], [address] GFR/1.73 sq M.predicted among non-blacks MDRD (S/P/Bld) [Vol rate/Area] 82 mL/min/{1.73_m2} Normal >60 [facility] Comment on above: Result Comment: mL/m in/1.73m2 CKD-EPI Creatinine Equation (2020) Performed By: #### L 500.2500, L100.0100, L503.6005 ####[facility] [address] [place], [address] Glucose [Mass/Vol] 92 mg/dL Normal 70-99 [facility] Comment on above: Performed By: #### L 500.2500, L100.0100, L503.6005 ####[facility] [address] [place], [address] Potassium [Moles/Vol] 4.1 mmol/L Normal 3.3-5.1 [facility] Comment on above: Performed By: #### L 500.2500, L100.0100, L503.6005 ####[facility] [address] [place], [address] Sodium [Moles/Vol] 138 mmol/L Normal 133-145 [facility] Comment on above: Performed By: #### L 500.2500, L100.0100, L503.6005 ####[facility] [address] [place], [address] Urea nitrogen [Mass/Vol] 11 mg/dL Normal 4-19 [facility] Comment on above: Performed By: #### L 500.2500, L100.0100, L503.6005 ####[facility] [address] [place], [address] CBC W/Diff, Automatedon 06-2 -2024 Absolute Lymph 1.06 X10 3/uL Normal 0.83-4.51 [facility] Comment on above: Performed By: #### L 500.2500, L100.0100, L503.6005 ####[facility] [address] [place], [address] Absolute Neut 2.5 X10 3/uL Normal 2.0-7.7 [facility] Comment on above: Performed By: #### L 500.2500, L100.0100, L503.6005 ####[facility] [address] [place], [address] Basophils/100 WBC (Bld) 0.7 % Normal 0-1 [facility] Comment on above: Performed By: #### L 500.2500, L100.0100, L503.6005 ####[facility] [address] [place], [address] Eosinophils/100 WBC (Bld) 0.2 % Normal 0-5 [facility] Comment on above: Performed By: #### L 500.2500, L100.0100, L503.6005 ####[facility] [address] [place], [address] Erythrocyte distribution width (RBC) [Ratio] 14.0 % Normal 11.6-14.6 [facility] Comment on above: Performed By: #### L 500.2500, L100.0100, L503.6005 ####[facility] [address] [place], [address] Hematocrit (Bld) [Volume fraction] 37.8 % Normal 37-47 [facility] Comment on above: Performed By: #### L 500.2500, L100.0100, L503.6005 ####[facility] [address] [place], [address] Hemoglobin (Bld) [Mass/Vol] 12.6 g/dL Normal 12.0-15.0 [facility] Comment on above: Performed By: #### L 500.2500, L100.0100, L503.6005 ####[facility] [address] [place], [address] IG% 0.200 Normal 0.0-0.9 [facility] Comment on above: Result Comment: IG% - Immature Granulocytes (promyelocytes, myelocytes and metamyelocytes) > 1% indicates that a LEFT SHIFT is Present. Performed By: #### L 500.2500, L100.0100, L503.6005 ####[facility] [address] [place], [address] Lymphocytes/100 WBC (Bld) 26.3 % Normal 19-41 [facility] Comment on above: Performed By: #### L 500.2500, L100.0100, L503.6005 ####[facility] [address] [place], [address] MCH (RBC) [Entitic mass] 29.3 pg Normal 27.0-32.0 [facility] Comment on above: Performed By: #### L 500.2500, L100.0100, L503.6005 ####[facility] [address] [place], [address] MCHC (RBC) [Mass/Vol] 33.3 g/dL Normal 32-36 [facility] Comment on above: Performed By: #### L 500.2500, L100.0100, L503.6005 ####[facility] [address] [place], [address] MCV (RBC) [Entitic vol] 87.9 fL Normal 81-99 [facility] Comment on above: Performed By: #### L 500.2500, L100.0100, L503.6005 ####[facility] [address] [place], [address] Monocytes/100 WBC (Bld) 11.2 % High 0-10 [facility] Comment on above: Performed By: #### L 500.2500, L100.0100, L503.6005 ####[facility] [address] [place], [address] Neutrophils/100 WBC (Bld) 61.4 % Normal 47-70 [facility] Comment on above: Performed By: #### L 500.2500, L100.0100, L503.6005 ####[facility] [address] [place], [address] Nucleated RBC (Bld) [#/Vol] 0 10*3/uL Normal 0-5 [facility] Comment on above: Performed By: #### L 500.2500, L100.0100, L503.6005 ####[facility] [address] [place], [address] Platelet mean volume (Bld) [Entitic vol] 10.8 fL Normal 6.2-12.0 [facility] Comment on above: Performed By: #### L 500.2500, L100.0100, L503.6005 ####[facility] [address] [place], [address] Platelets (Bld) [#/Vol] 179 10*3/uL Normal 150-450 [facility] Comment on above: Performed By: #### L 500.2500, L100.0100, L503.6005 ####[facility] [address] [place], [address] RBC (Bld) [#/Vol] 4.30 10*6/uL Normal 4.2-5.4 [facility] Comment on above: Performed By: #### L 500.2500, L100.0100, L503.6005 ####[facility] [address] [place], [address] RDW SD 45.1 fl High 35.1-43.9 [facility] Comment on above: Performed By: #### L 500.2500, L100.0100, L503.6005 ####[facility] [address] [place], [address] WBC (Bld) [#/Vol] 4.0 10*3/uL Low 4.4-11.0 [facility] Comment on above: Performed By: #### L 500.2500, L100.0100, L503.6005 ####[facility] [address] [place], [address] Lactic Acidon 02-20-2025 Lactate [Moles/Vol] mmol/L Normal 0.0-2.0 [facility] Comment on above: Order Comment: Y Performed By: #### L 500.2500, L100.0100, L503.6005 ####[facility] [address] [place], [address] Surgery Visit Reporton 02-11 Surgery Visit Report [facility] [address] [place] [address] OFFICE VISIT Date of Service: 02/11/25 MR#: [id number] Acct: [id number] Name: GERMANIA DONSI Rep #: [id number] : 1945 Provider: Dr. Darrick kendrick MD Age/Sex: 79/F Location: [facility] Status: Signed Intake Vital Signs 01/30/25 [...] 100 mcg PO DAILY 09/27/24 02/11/25 History xboxvlzt-qpvgfeuk-keji c acid 240 1 tab PO DAILY 09/27/24 02/11/25 H istory mcg-vit K1 150 mcg-herb 357 tablet (Alive Women's 50 Plus Ultra Multivitamin) vitamins A,C,G-mevq-mxmedn 4,296 1 cap PO BID 09/27/24 02/11/25 [...] Diagnoses Complete obstruction of small intestine K56.601 [facility] Medical History Umbilical hernia Wears glasses Wears [...] recommended ongoing to mitigate risk for bowel obstruction???tess baez remaining well-hydrated and requesting a investigation of anemia to determine if she can come off of her self-imposed iron supplementation ???No formal clinic follow-up is required, but patient is invited to call or arrange further follow- (more content not included)... Normal [facility] Discharge Instructionon Discharge Instruction [facility] Medical Records Department [address] [place] [address] Instructions for Home/Discharge Instructions 01/30/25 1655 MR#: [id number] Acct: [id number] Name: GERMANIA DONIS Rep #: [id number] : 1945 79 From: Darrick Light MD [...] can be placed): Home, Self Care 01/30/25 1658 Darrick Light MD CC: Dr. Sowmya Cabrera MD Signed [facility] Abd Decub and/or Erect(Luis Carlos blon 01-29-2025 Abd Decub and/or Erect([facility] [address] [place] [place] [address] Abd Decub and/or Erect([facility] MR#: [id number] Acct: [id number] Name: GERMANIA DONIS Rep #: [id number] : 1945 F 79 From: Margarito augustine MD PCP: Dr. Sowmya Cabrera MD Status: ADM IN Study: Abd Decub and/or Erect([facility] Date of Exam: 0 01/29/25 Exam# [id number] Ordering Dr: Darrick Light MD PROCEDURE: ABD DECUB AND/OR ERECT([facility] 01/29/2025 REASON FOR EXAM: SBO TECHNIQUE: Single [...] lung bases are clear. RAD/Abd Decub and/or Erect([facility] IMPRESSION: See above Reading Location: [facility] CC: Dr. Sowmya Cabrera MD; Dr. Darrick Light MD [employer]er: Signed [facility] Abd Decub and/or Erect([facility] [address] [address] Abd Decub and/or Erect([facility] MR#: [id number] Acct: [id number] Name: GERMANIA DONIS Rep #: [id number] : 1945 F 79 From: Elio Bolaños MD PCP: Dr. Sowmya Cabrera MD Status: ADM IN Study: Abd Decub and/or Erect([facility] Date of Exam: 0 01/29/25 Exam# [id number] Ordering Dr: Darrick Light MD PROCEDURE: ABD [...] CT findings of small-bowel obstruction. Reading Location: [id number] CC: Dr. Sowmya Cabrera MD; Dr. Darrick Light MD [employer]er: Signed Normal [facility] Absolute lymphocyte countOrd ered By: Darrick Light on 01-29-2025 Lymphocytes Auto (Unsp spec) [#/Vol] 1.06 10*3/uL 0.83-4.51 [facility] Absolute neutrophil countOrd ered By: Darrick Light on 01-29-2025 Neutrophils (Bld) [#/Vol] 3.7 10*3/uL 2.0-7.7 [facility] Anion gap in Serum or Plasma Ordered By: Darrick Light on 01-29-2025 Anion gap [Moles/Vol] 8 mmol/L 5-15 [facility] Automated lymphocyte count a s percentage of total leukocytesOrdered By: Darrick Light on 01-29-2025 Lymphocytes/100 WBC Auto (Unsp spec) 20.4 % 19-41 [facility] BUN/creatinine ratioOrdered By: Darrick Light on 01-29-2025 Urea nitrogen/Creatinine [Mass ratio] 17.6 mg/mg - [facility] Basic Metabolic Profile (BMP )on 01-29-2025 BUN/CRE 17.6 RATIO Normal 06-13 [facility] Comment on above: Performed By: #### L 500.3400, L501.2450, L500.2500, L100.0100 #### [facility] [address] [place], [address] Calcium [Mass/Vol] 8.5 mg/dL Normal 7.6-11.0 [facility] Comment on above: Performed By: #### L 500.3400, L501.2450, L500.2500, L100.0100 #### [facility] [address] [place], [address] Chloride [Moles/Vol] 109 mmol/L High 98-108 [facility] Comment on above: Performed By: #### L 500.3400, L501.2450, L500.2500, L100.0100 #### [facility] [address] [place], [address] CO2 [Moles/Vol] 24.6 mmol/L Normal 21.0-32.0 [facility] Comment on above: Performed By: #### L 500.3400, L501.2450, L500.2500, L100.0100 #### [facility] [address] [place], [address] Creatinine [Mass/Vol] 0.60 mg/dL Low 0.70-1.20 [facility] Comment on above: Performed By: #### L 500.3400, L501.2450, L500.2500, L100.0100 #### [facility] [address] [place], [address] ECRCL 50.87 ml/min Normal 50-250 [facility] Comment on above: Performed By: #### L 500.3400, L501.2450, L500.2500, L100.0100 #### [facility] [address] [place], [address] GAP 8 Normal 5-15 [facility] Comment on above: Performed By: #### L 500.3400, L501.2450, L500.2500, L100.0100 #### [facility] [address] [place], [address] GFR/1.73 sq M.predicted among non-blacks MDRD (S/P/Bld) [Vol rate/Area] 92 mL/min/{1.73_m2} Normal >60 [facility] Comment on above: Result Comment: mL/m in/1.73m2 CKD-EPI Creatinine Equation (2020) Performed By: #### L 500.3400, L501.2450, L500.2500, L100.0100 #### [facility] [address] [place], [address] Glucose [Mass/Vol] 111 mg/dL High 70-99 [facility] Comment on above: Performed By: #### L 500.3400, L501.2450, L500.2500, L100.0100 #### [facility] [address] [place], [address] Potassium [Moles/Vol] 4.1 mmol/L Normal 3.3-5.1 [facility] Comment on above: Performed By: #### L 500.3400, L501.2450, L500.2500, L100.0100 #### [facility] [address] [place], [address] Sodium [Moles/Vol] 142 mmol/L Normal 133-145 [facility] Comment on above: Performed By: #### L 500.3400, L501.2450, L500.2500, L100.0100 #### [facility] [address] [place], [address] Urea nitrogen [Mass/Vol] 11 mg/dL Normal 4-19 [facility] Comment on above: Performed By: #### L 500.3400, L501.2450, L500.2500, L100.0100 #### [facility] [address] [place], [address] Basophil percentageOrdered B y: Darrick Light on 01-29-2025 Basophils/100 WBC (Bld) 0.2 % 0-1 [facility] CBC W/Diff, Automatedon Absolute Lymph 1.06 X10 3/uL Normal 0.83-4.51 [facility] Comment on above: Performed By: #### L 500.3400, L501.2450, L500.2500, L100.0100 #### [facility] [address] [place], [address] Absolute Neut 3.7 X10 3/uL Normal 2.0-7.7 [facility] Comment on above: Performed By: #### L 500.3400, L501.2450, L500.2500, L100.0100 #### [facility] [address] [place], [address] Basophils/100 WBC (Bld) 0.2 % Normal 0-1 [facility] Comment on above: Performed By: #### L 500.3400, L501.2450, L500.2500, L100.0100 #### [facility] [address] [place], [address] Eosinophils/100 WBC (Bld) 0.8 % Normal 0-5 [facility] Comment on above: Performed By: #### L 500.3400, L501.2450, L500.2500, L100.0100 #### [facility] [address] [place], [address] Erythrocyte distribution width (RBC) [Ratio] 14.1 % Normal 11.6-14.6 [facility] Comment on above: Performed By: #### L 500.3400, L501.2450, L500.2500, L100.0100 #### [facility] [address] [place], [address] Hematocrit (Bld) [Volume fraction] 35.0 % Low 37-47 [facility] Comment on above: Performed By: #### L 500.3400, L501.2450, L500.2500, L100.0100 #### [facility] [address] [place], [address] Hemoglobin (Bld) [Mass/Vol] 11.3 g/dL Low 12.0-15.0 [facility] Comment on above: Performed By: #### L 500.3400, L501.2450, L500.2500, L100.0100 #### [facility] [address] [place], [address] IG% 0.400 Normal 0.0-0.9 [facility] Comment on above: Result Comment: IG% - Immature Granulocytes (promyelocytes, myelocytes and metamyelocytes) > 1% indicates that a LEFT SHIFT is Present. Performed By: #### L 500.3400, L501.2450, L500.2500, L100.0100 #### [facility] [facility] [address] [place], [address] Lymphocytes/100 WBC (Bld) 20.4 % Normal 19-41 [facility] Comment on above: Performed By: #### L 500.3400, L501.2450, L500.2500, L100.0100 #### [facility] [address] [place], [address] MCH (RBC) [Entitic mass] 29.7 pg Normal 27.0-32.0 [facility] Comment on above: Performed By: #### L 500.3400, L501.2450, L500.2500, L100.0100 #### [facility] [address] [place], [address] MCHC (RBC) [Mass/Vol] 32.3 g/dL Normal 32-36 [facility] Comment on above: Performed By: #### L 500.3400, L501.2450, L500.2500, L100.0100 #### [facility] [address] [place], [address] MCV (RBC) [Entitic vol] 91.9 fL Normal 81-99 [facility] Comment on above: Performed By: #### L 500.3400, L501.2450, L500.2500, L100.0100 #### [facility] [address] [place], [address] Monocytes/100 WBC (Bld) 7.7 % Normal 0-10 [facility] Comment on above: Performed By: #### L 500.3400, L501.2450, L500.2500, L100.0100 #### [facility] [address] [place], [address] Neutrophils/100 WBC (Bld) 70.5 % High 47-70 [facility] Comment on above: Performed By: #### L 500.3400, L501.2450, L500.2500, L100.0100 #### [facility] [address] [place], [address] Nucleated RBC (Bld) [#/Vol] 0 10*3/uL Normal 0-5 [facility] Comment on above: Performed By: #### L 500.3400, L501.2450, L500.2500, L100.0100 #### [facility] [address] [place], [address] Platelet mean volume (Bld) [Entitic vol] 11.2 fL Normal 6.2-12.0 [facility] Comment on above: Performed By: #### L 500.3400, L501.2450, L500.2500, L100.0100 #### [facility] [address] [place], [address] Platelets (Bld) [#/Vol] 164 10*3/uL Normal 150-450 [facility] Comment on above: Performed By: #### L 500.3400, L501.2450, L500.2500, L100.0100 #### [facility] [address] [place], [address] RBC (Bld) [#/Vol] 3.81 10*6/uL Low 4.2-5.4 [facility] Comment on above: Performed By: #### L 500.3400, L501.2450, L500.2500, L100.0100 #### [facility] [address] [place], [address] RDW SD 47.5 fl High 35.1-43.9 [facility] Comment on above: Performed By: #### L 500.3400, L501.2450, L500.2500, L100.0100 #### [facility] [address] [place], [address] WBC (Bld) [#/Vol] 5.2 10*3/uL Normal 4.4-11.0 [facility] Comment on above: Performed By: #### L 500.3400, L501.2450, L500.2500, L100.0100 #### [facility] [address] [place], [address] Carbon dioxide, total [Moles /volume] in Central venous bloodOrdered By: Darrick Light on 01-29-2025 CO2 [Moles/Vol] 24.6 mmol/L 21.0-32.0 [facility] Chloride assayOrdered By: Aysha Light on 01-29-2025 Chloride [Moles/Vol] 109 mmol/L High 98-108 [facility] Eosinophil percentageOrdered By: Darrick Light on 01-29-2025 Eosinophils/100 WBC (Bld) 0.8 % 0-5 [facility] Erythrocyte distribution wid th ratioOrdered By: Darrick Light on 01-29-2025 Erythrocyte distribution width (RBC) [Ratio] 14.1 % 11.6-14.6 [facility] Erythrocyte distribution wid th standard deviationOrdered By: Darrick Light on 01-29-2025 Erythrocyte distribution width (RBC) [Ratio] 47.5 fl High 35.1-43.9 [facility] Glomerular filtration rate ( GFR) estimation/1.73 sq m using serum, plasma, or whole bOrdered By: Darrick Light on 01-29-2025 GFR/1.73 sq M.predicted among non-blacks MDRD (S/P/Bld) [Vol rate/Area] 92 mL/min/{1.73_m2} >60 [facility] Comment on above: mL/min/1.73m2 CKD-EP I Creatinine Equation (2020) Hematocrit Auto (Bld) [Volum e fraction]Ordered By: Darrick Light on 01-29-2025 Hematocrit (Bld) [Volume fraction] 35.0 % Low 37-47 [facility] Hemoglobin measurementOrdere d By: Darrick Light on 01-29-2025 Hemoglobin (Bld) [Mass/Vol] 11.3 g/dL Low 12.0-15.0 [facility] Immature granulocytes/100 WB C Auto (Bld)Ordered By: Darrick Light on 01-29-2025 Immature granulocytes/100 WBC (Bld) 0.400 % 0.0-0.9 [facility] Comment on above: IG% - Immature Granu locytes (promyelocytes, myelocytes and metamyelocytes) > 1% indicates that a LEFT SHIFT is Present. Lactic Acidon 01-29-2025 Lactate [Moles/Vol] 1.1 mmol/L Normal 0.0-2.0 [facility] Comment on above: Order Comment: Y Performed By: #### L 500.3400, L501.2450, L500.2500, L100.0100 #### [facility] [address] [place], [place], [address] MCV (mean corpuscular volume ) determinationOrdered By: Darrick Light on 01-29-2025 MCV (RBC) [Entitic vol] 91.9 fL 81-99 [facility] Magnesiumon 01-29-2025 Magnesium [Mass/Vol] 2.2 mg/dL Normal 1.5-2.2 [facility] Comment on above: Performed By: #### L 500.3400, L501.2450, L500.2500, L100.0100 #### [facility] [address] [place], [place], [address] Magnesium measurement (mass/ volume)Ordered By: Darrick Light on 01-29-2025 Magnesium (Unsp spec) [Mass/Vol] 2.2 mg/dL 1.5-2.2 [facility] Mean corpuscular hemoglobin (MCH) determinationOrdered By: Darrick Light on 01-29-2025 MCH (RBC) [Entitic mass] 29.7 pg 27.0-32.0 [facility] Mean corpuscular hemoglobin concentration (MCHC) determinationOrdered By: Darrick Light on 01-29-2025 MCHC (RBC) [Mass/Vol] 32.3 g/dL 32-36 [facility] Mean platelet volume determi nationOrdered By: Darrick Light on 01-29-2025 Platelet mean volume (Bld) [Entitic vol] 11.2 fL 6.2-12.0 [facility] Monocyte percentageOrdered B y: Darrick Light on 01-29-2025 Monocytes/100 WBC (Bld) 7.7 % 0-10 [facility] Neutrophil percentageOrdered By: Darrick Light on 01-29-2025 Neutrophils/100 WBC (Bld) 70.5 % High 47-70 [facility] Nucleated red blood cell per centageOrdered By: Darrick Light on 01-29-2025 Nucleated RBC/100 WBC (Bld) [Ratio] 0 % 0-5 [facility] Phosphoruson 01-29-2025 Phosphate [Mass/Vol] 3.8 mg/dL Normal 2.7-4.5 [facility] Comment on above: Performed By: #### L 500.3400, L501.2450, L500.2500, L100.0100 #### [facility] [address] [place], [place], [address] Platelet countOrdered By: Aysha Light on 01-29-2025 Platelets (Bld) [#/Vol] 164 10*3/uL 150-450 [facility] Potassium measurement (mass/ volume)Ordered By: Darrick Light on 01-29-2025 Potassium (Unsp spec) [Mass/Vol] 4.1 mmol/L 3.3-5.1 [facility] RBC Auto (Bld) [#/Vol]Ordere d By: Darrick Light on 01-29-2025 RBC (Bld) [#/Vol] 3.81 10*6/uL Low 4.2-5.4 [facility] Serum creatinine measurement (mass/volume)Ordered By: Darrick Light on 01-29-2025 Creatinine [Mass/Vol] 0.60 mg/dL Low 0.70-1.20 [facility] Serum glucose measurement (m ass/volume)Ordered By: Darrick Light on 01-29-2025 Glucose [Mass/Vol] 111 mg/dL High 70-99 [facility] Serum or plasma calcium demetrice urement (mass/volume)Ordered By: Darrick Light on 01-29-2025 Calcium [Mass/Vol] 8.5 mg/dL 7.6-11.0 [facility] Serum or plasma urea nitroge n measurement (mass/volume)Ordered By: Darrick Light on 01-29-2025 Urea nitrogen [Mass/Vol] 11 mg/dL 4-19 [facility] Small Bowel Series Onlyon Small Bowel Series Only [facility] Imaging Services [address] [place], [place] [address] Small Bowel Series Only MR#: [id number] Acct: [id number] Name: GERMANIA DONIS Rep #: [id number] : 1945 F 79 From: Kaila Choi nd, MD PCP: Dr. Sowmya Cabrera MD Status: ADM IN Study: Small Bowel Series Only Date of Exam: 01/29/25 Exam# [id number] Ordering Dr: Darrick Light MD PROCEDURE: SMALL [...] 3 hours post Gastrografin administration. Reading Location: [facility] CC: Dr. Sowmya Cabrera MD; Dr. Darrick Light MD [employer] Fixer: Signed Normal [facility] Sodium levelOrdered By: Luis Light on 01-29-2025 Sodium [Moles/Vol] 142 mmol/L 133-145 [facility] White blood cell (WBC) count Ordered By: Darrick Light on 01-29-2025 WBC (Bld) [#/Vol] 5.2 10*3/uL 4.4-11.0 [facility] Abdomen/Pelvis W IV Cont ONL Yon 01-28-2025 Abdomen/Pelvis W IV Cont ONLY [facility] Imaging Services [address] [place] [address] Abdomen/Pelvis W IV Cont ONLY MR#: [id number] Acct: [id number] Name: GERMANIA DONIS Rep #: [id number] : 1945 F 79 From: Lorenzo Davila PCP: Dr. Sowmya Cabrera MD Status: REG ER Study: Abdomen/Pelvis W IV Cont ONLY Date of Exam: Exam# [id number] Ordering Dr: Selvin Naranjo MD PROCEDURE: ABDOMEN/PELVIS [...] Selvin Naranjo MD; Dr. Sowmya Cabrera MD [employer]er: Signed Normal [facility] Absolute lymphocyte countOrd ered By: Selvin Naranjo on 01-28-2025 Lymphocytes Auto (Unsp spec) [#/Vol] 1.26 10*3/uL 0.83-4.51 [facility] Absolute neutrophil countOrd ered By: Selvin Naranjo on 01-28-2025 Neutrophils (Bld) [#/Vol] 5.1 10*3/uL 2.0-7.7 [facility] Anion gap in Serum or Plasma Ordered By: Selvin Naranjo on 01-28-2025 Anion gap [Moles/Vol] 12 mmol/L 5-15 [facility] Automated lymphocyte count a s percentage of total leukocytesOrdered By: Selvin Naranjo on 01-28-2025 Lymphocytes/100 WBC Auto (Unsp spec) 17.9 % Low 19-41 [facility] BUN/creatinine ratioOrdered By: Selvin Naranjo on 01-28-2025 Urea nitrogen/Creatinine [Mass ratio] 20.7 mg/mg High 10-20 [facility] Basophil percentageOrdered B y: Selvin Naranjo on 01-28-2025 Basophils/100 WBC (Bld) 0.3 % 0-1 [facility] Bilirubin, totalOrdered By: Selvin Naranjo on 01-28-2025 Bilirubin [Mass/Vol] 0.39 mg/dL 0.00-1.30 [facility] CBC W/Diff, Automatedon Absolute Lymph 1.26 X10 3/uL Normal 0.83-4.51 [facility] Comment on above: Performed By: #### L 500.3400, L501.2450, L500.2500, L100.0100 #### [facility] [address] [place], [address] Absolute Neut 5.1 X10 3/uL Normal 2.0-7.7 [facility] Comment on above: Performed By: #### L 500.3400, L501.2450, L500.2500, L100.0100 #### [facility] [address] [place], [address] Basophils/100 WBC (Bld) 0.3 % Normal 0-1 [facility] Comment on above: Performed By: #### L 500.3400, L501.2450, L500.2500, L100.0100 #### [facility] [address] [place], [address] Eosinophils/100 WBC (Bld) 1.0 % Normal 0-5 [facility] Comment on above: Performed By: #### L 500.3400, L501.2450, L500.2500, L100.0100 #### [facility] [address] [place], [address] Erythrocyte distribution width (RBC) [Ratio] 14.0 % Normal 11.6-14.6 [facility] Comment on above: Performed By: #### L 500.3400, L501.2450, L500.2500, L100.0100 #### [facility] [address] [place], [address] Hematocrit (Bld) [Volume fraction] 37.8 % Normal 37-47 [facility] Comment on above: Performed By: #### L 500.3400, L501.2450, L500.2500, L100.0100 #### [facility] [address] [place], [address] Hemoglobin (Bld) [Mass/Vol] 12.2 g/dL Normal 12.0-15.0 [facility] Comment on above: Performed By: #### L 500.3400, L501.2450, L500.2500, L100.0100 #### [facility] [address] [place], [address] IG% 0.300 Normal 0.0-0.9 [facility] Comment on above: Result Comment: IG% - Immature Granulocytes (promyelocytes, myelocytes and metamyelocytes) > 1% indicates that a LEFT SHIFT is Present. Performed By: #### L 500.3400, L501.2450, L500.2500, L100.0100 #### [facility] [address] [place], [address] Lymphocytes/100 WBC (Bld) 17.9 % Low 19-41 [facility] Comment on above: Performed By: #### L 500.3400, L501.2450, L500.2500, L100.0100 #### [facility] [address] [place], [address] MCH (RBC) [Entitic mass] 29.1 pg Normal 27.0-32.0 [facility] Comment on above: Performed By: #### L 500.3400, L501.2450, L500.2500, L100.0100 #### [facility] [address] [place], [address] MCHC (RBC) [Mass/Vol] 32.3 g/dL Normal 32-36 [facility] Comment on above: Performed By: #### L 500.3400, L501.2450, L500.2500, L100.0100 #### [facility] [address] [place], [address] MCV (RBC) [Entitic vol] 90.2 fL Normal 81-99 [facility] Comment on above: Performed By: #### L 500.3400, L501.2450, L500.2500, L100.0100 #### [facility] [address] [place], [address] Monocytes/100 WBC (Bld) 7.7 % Normal 0-10 [facility] Comment on above: Performed By: #### L 500.3400, L501.2450, L500.2500, L100.0100 #### [facility] [address] [place], [address] Neutrophils/100 WBC (Bld) 72.8 % High 47-70 [facility] Comment on above: Performed By: #### L 500.3400, L501.2450, L500.2500, L100.0100 #### [facility] [address] [place], [address] Nucleated RBC (Bld) [#/Vol] 0 10*3/uL Normal 0-5 [facility] Comment on above: Performed By: #### L 500.3400, L501.2450, L500.2500, L100.0100 #### [facility] [address] [place], [address] Platelet mean volume (Bld) [Entitic vol] 11.0 fL Normal 6.2-12.0 [facility] Comment on above: Performed By: #### L 500.3400, L501.2450, L500.2500, L100.0100 #### [facility] [address] [place], [address] Platelets (Bld) [#/Vol] 180 10*3/uL Normal 150-450 [facility] Comment on above: Performed By: #### L 500.3400, L501.2450, L500.2500, L100.0100 #### [facility] [address] [place], [address] RBC (Bld) [#/Vol] 4.19 10*6/uL Low 4.2-5.4 [facility] Comment on above: Performed By: #### L 500.3400, L501.2450, L500.2500, L100.0100 #### [facility] [address] [place], [address] RDW SD 46.2 fl High 35.1-43.9 [facility] Comment on above: Performed By: #### L 500.3400, L501.2450, L500.2500, L100.0100 #### [facility] [address] [place], [address] WBC (Bld) [#/Vol] 7.0 10*3/uL Normal 4.4-11.0 [facility] Comment on above: Performed By: #### L 500.3400, L501.2450, L500.2500, L100.0100 #### [facility] [address] [place], [address] Carbon dioxide, total [Moles /volume] in Central venous bloodOrdered By: Selvin Naranjo on 01-28-2025 CO2 [Moles/Vol] 25.1 mmol/L 21.0-32.0 [facility] Chloride assayOrdered By: Abimael Naranjo on 01-28-2025 Chloride [Moles/Vol] 106 mmol/L 98-108 [facility] Comprehensive Metabolic Prof ilon 01-28-2025 Albumin [Mass/Vol] 4.0 g/dL Normal 3.4-4.8 [facility] Comment on above: Performed By: #### L 500.3400, L501.2450, L500.2500, L100.0100 #### [facility] [address] [place], [address] Albumin/Globulin [Mass ratio] 1.4 {ratio} Normal 0.9-2.4 [facility] Comment on above: Performed By: #### L 500.3400, L501.2450, L500.2500, L100.0100 #### [facility] [address] [place], [address] ALK PHOS 102 U/L Normal 35-104 [facility] Comment on above: Performed By: #### L 500.3400, L501.2450, L500.2500, L100.0100 #### [facility] [address] [place], [address] ALT [Catalytic activity/Vol] 32 U/L Normal <=34 [facility] Comment on above: Performed By: #### L 500.3400, L501.2450, L500.2500, L100.0100 #### [facility] [address] [place], [address] AST [Catalytic activity/Vol] 36 U/L High <=31 [facility] Comment on above: Result Comment: Hemo lysis present, Results??could be affected. ?? Performed By: #### L 500.3400, L501.2450, L500.2500, L100.0100 #### [facility] [address] [place], [address] Bilirubin [Mass/Vol] 0.39 mg/dL Normal 0.00-1.30 [facility] Comment on above: Performed By: #### L 500.3400, L501.2450, L500.2500, L100.0100 #### [facility] [address] [place], [address] BUN/CRE 20.7 RATIO High 10-20 [facility] Comment on above: Performed By: #### L 500.3400, L501.2450, L500.2500, L100.0100 #### [facility] [address] [place], [address] Calcium [Mass/Vol] 9.4 mg/dL Normal 7.6-11.0 [facility] Comment on above: Performed By: #### L 500.3400, L501.2450, L500.2500, L100.0100 #### [facility] [address] [place], [address] Chloride [Moles/Vol] 106 mmol/L Normal 98-108 [facility] Comment on above: Performed By: #### L 500.3400, L501.2450, L500.2500, L100.0100 #### [facility] [address] [place], [address] CO2 [Moles/Vol] 25.1 mmol/L Normal 21.0-32.0 [facility] Comment on above: Performed By: #### L 500.3400, L501.2450, L500.2500, L100.0100 #### [facility] [address] [place], [address] Creatinine [Mass/Vol] 0.71 mg/dL Normal 0.70-1.20 [facility] Comment on above: Performed By: #### L 500.3400, L501.2450, L500.2500, L100.0100 #### [facility] [address] [place], [address] ECRCL 52.53 ml/min Normal 50-250 [facility] Comment on above: Performed By: #### L 500.3400, L501.2450, L500.2500, L100.0100 #### [facility] [address] [place], [address] GAP 12 Normal 5-15 [facility] Comment on above: Performed By: #### L 500.3400, L501.2450, L500.2500, L100.0100 #### [facility] [address] [place], [address] GFR/1.73 sq M.predicted among non-blacks MDRD (S/P/Bld) [Vol rate/Area] 88 mL/min/{1.73_m2} Normal >60 [facility] Comment on above: Result Comment: mL/m in/1.73m2 CKD-EPI Creatinine Equation (2020) Performed By: #### L 500.3400, L501.2450, L500.2500, L100.0100 #### [facility] [address] [place], [address] Globulin (S) [Mass/Vol] 2.9 g/dL Normal 2.2-4.2 [facility] Comment on above: Performed By: #### L 500.3400, L501.2450, L500.2500, L100.0100 #### [facility] [address] [place], [address] Glucose [Mass/Vol] 115 mg/dL High 70-99 [facility] Comment on above: Performed By: #### L 500.3400, L501.2450, L500.2500, L100.0100 #### [facility] [address] [place], [address] Potassium [Moles/Vol] 4.0 mmol/L Normal 3.3-5.1 [facility] Comment on above: Result Comment: Hemo lysis present, Results??could be affected. ?? Performed By: #### L 500.3400, L501.2450, L500.2500, L100.0100 #### [facility] [address] [place] [place], [address] Sodium [Moles/Vol] 142 mmol/L Normal 133-145 [facility] Comment on above: Performed By: #### L 500.3400, L501.2450, L500.2500, L100.0100 #### [facility] [address] [place], [address] T PROT 6.9 g/dL Normal 5.9-8.4 [facility] Comment on above: Performed By: #### L 500.3400, L501.2450, L500.2500, L100.0100 #### [facility] [address] [place], [address] Urea nitrogen [Mass/Vol] 15 mg/dL Normal 4-19 [facility] Comment on above: Performed By: #### L 500.3400, L501.2450, L500.2500, L100.0100 #### [facility] [address] [place] [place], [address] Emergency Department Summary on 01-28-2025 Emergency Department Summary [facility] Medical Records Department [address] [place] [address] Emergency Department Summary 01/28/25 MR#: [id number] Acct: [id number] Name: GERMANIA DONIS Rep #: [id number] : 1945 79 From: Selvin Naranjo MD PCP: Dr. Sowmya Cabrera MD Status:ADM IN Location: [facility]728-5 HPI HPI - GI History of Present [...] No definite association with meals here recently. [facility] Medical History Umbilical hernia Wears [...] 100 mcg PO DAILY 09/27/24 12/03/24 History zzxnizgf-roznvuaz-cubi c acid 240 1 tab PO DAILY 09/27/24 12/03/24 H istory mcg-vit K1 150 mcg-herb 357 tablet (Alive Women's 50 Plus Ultra Multivitamin) vitamins A,C,L-hdvw-couknt 4,296 1 cap PO BID 09/27/24 12/03/24 [...] Positive w (more content not included)... Normal [facility] Eosinophil percentageOrdered By: Selvin Naranjo on 01-28-2025 Eosinophils/100 WBC (Bld) 1.0 % 0-5 [facility] Erythrocyte distribution wid th ratioOrdered By: Selvin Naranjo on 01-28-2025 Erythrocyte distribution width (RBC) [Ratio] 14.0 % 11.6-14.6 [facility] Erythrocyte distribution wid th standard deviationOrdered By: Selvin Naranjo on 01-28-2025 Erythrocyte distribution width (RBC) [Ratio] 46.2 fl High 35.1-43.9 [facility] Glomerular filtration rate ( GFR) estimation/1.73 sq m using serum, plasma, or whole bOrdered By: Selvin Naranjo on 01-28-2025 GFR/1.73 sq M.predicted among non-blacks MDRD (S/P/Bld) [Vol rate/Area] 88 mL/min/{1.73_m2} >60 [facility] Comment on above: mL/min/1.73m2 CKD-EP I Creatinine Equation (2020) Hematocrit Auto (Bld) [Volum e fraction]Ordered By: Selvin Naranjo on 01-28-2025 Hematocrit (Bld) [Volume fraction] 37.8 % 37-47 [facility] Hemoglobin measurementOrdere d By: Selvin Naranjo on 01-28-2025 Hemoglobin (Bld) [Mass/Vol] 12.2 g/dL 12.0-15.0 [facility] Immature granulocytes/100 WB C Auto (Bld)Ordered By: Selvin Naranjo on 01-28-2025 Immature granulocytes/100 WBC (Bld) 0.300 % 0.0-0.9 [facility] Comment on above: IG% - Immature Granu locytes (promyelocytes, myelocytes and metamyelocytes) > 1% indicates that a LEFT SHIFT is Present. Laboratory - Chemistry and C hemistry - challengeOrdered By: Selvin Naranjo on 01-28-2025 AST [Catalytic activity/Vol] 36 U/L High <32 [facility] Comment on above: Hemolysis present, R esults could be affected. Lactic acid measurementOrder ed By: Selvin Naranjo on 01-28-2025 Lactate [Moles/Vol] 1.1 mmol/L 0.0-2.0 [facility] Lipaseon 01-28-2025 Lipase [Catalytic activity/Vol] 35 U/L Normal 13-75 [facility] Comment on above: Result Comment: Con greco note: LIPASE revised reference range effective 22. New Lipase methodology. Expected to produce lower values than the previous assay method. NEW Reference Range: 13 - 75 U/L Performed By: #### L 500.3400, L501.2450, L500.2500, L100.0100 #### [facility] [address] [place], [address] Lipase measurementOrdered By : Selvin Naranjo on 01-28-2025 Lipase [Catalytic activity/Vol] 35 U/L 13-75 [facility] Comment on above: Please note:LIPASE r evised reference range effective 22. New Lipase methodology. Expected to produce lower values than the previous assay method. NEW Reference Range: 13 - 75 U/L MCV (mean corpuscular volume ) determinationOrdered By: Selvin Naranjo on 01-28-2025 MCV (RBC) [Entitic vol] 90.2 fL 81-99 [facility] Mean corpuscular hemoglobin (MCH) determinationOrdered By: Selvin Naranjo on 01-28-2025 MCH (RBC) [Entitic mass] 29.1 pg 27.0-32.0 [facility] [facility] Mean corpuscular hemoglobin concentration (MCHC) determinationOrdered By: Selvin Naranjo on 01-28-2025 MCHC (RBC) [Mass/Vol] 32.3 g/dL 32-36 [facility] Mean platelet volume determi nationOrdered By: Selvin Naranjo on 01-28-2025 Platelet mean volume (Bld) [Entitic vol] 11.0 fL 6.2-12.0 [facility] Monocyte percentageOrdered B y: Selvin Naranjo on 01-28-2025 Monocytes/100 WBC (Bld) 7.7 % 0-10 [facility] Neutrophil percentageOrdered By: Selvin Naranjo on 01-28-2025 Neutrophils/100 WBC (Bld) 72.8 % High 47-70 [facility] Nucleated red blood cell per centageOrdered By: Selvin Naranjo on 01-28-2025 Nucleated RBC/100 WBC (Bld) [Ratio] 0 % 0-5 [facility] Platelet countOrdered By: Abimael Naranjo on 01-28-2025 Platelets (Bld) [#/Vol] 180 10*3/uL 150-450 [facility] Potassium measurement (mass/ volume)Ordered By: Selvin Naranjo on 01-28-2025 Potassium (Unsp spec) [Mass/Vol] 4.0 mmol/L 3.3-5.1 [facility] Comment on above: Hemolysis present, R esults could be affected. RBC Auto (Bld) [#/Vol]Ordere d By: Selvin Naranjo on 01-28-2025 RBC (Bld) [#/Vol] 4.19 10*6/uL Low 4.2-5.4 [facility] Serum creatinine measurement (mass/volume)Ordered By: Selvin Naranjo on 01-28-2025 Creatinine [Mass/Vol] 0.71 mg/dL 0.70-1.20 [facility] Serum globulin measurementOr dered By: Selvin Naranjo on 01-28-2025 Globulin (S) [Mass/Vol] 2.9 g/dL 2.2-4.2 [facility] Serum glucose measurement (m ass/volume)Ordered By: Selvin Naranjo on 01-28-2025 Glucose [Mass/Vol] 115 mg/dL High 70-99 [facility] Serum or plasma alanine eastman otransferase (ALT) measurementOrdered By: Selvin Naranjo on 01-28-2025 ALT [Catalytic activity/Vol] 32 U/L <35 [facility] Serum or plasma albumin demetrice urement (mass/volume)Ordered By: Selvin Naranjo on 01-28-2025 Albumin [Mass/Vol] 4.0 g/dL 3.4-4.8 [facility] Serum or plasma albumin/glob ulin mass ratioOrdered By: Selvin Naranjo on 01-28-2025 Albumin/Globulin [Mass ratio] 1.4 {ratio} 0.9-2.4 [facility] Serum or plasma alkaline dedrick sphatase measurementOrdered By: Selvin Naranjo on 01-28-2025 ALP [Catalytic activity/Vol] 102 U/L 35-104 [facility] Serum or plasma calcium demetrice urement (mass/volume)Ordered By: Selvin Naranjo on 01-28-2025 Calcium [Mass/Vol] 9.4 mg/dL 7.6-11.0 [facility] Serum or plasma urea nitroge n measurement (mass/volume)Ordered By: Selvin Naranjo on 01-28-2025 Urea nitrogen [Mass/Vol] 15 mg/dL 4-19 [facility] Sodium levelOrdered By: Marc Naranjo on 01-28-2025 Sodium [Moles/Vol] 142 mmol/L 133-145 [facility] Total proteinOrdered By: Carole Naranjo on 01-28-2025 Protein [Mass/Vol] 6.9 g/dL 5.9-8.4 [facility] White blood cell (WBC) count Ordered By: Selvin Naranjo on 01-28-2025 WBC (Bld) [#/Vol] 7.0 10*3/uL 4.4-11.0 [facility] Surgery Visit Reporton 12-20 Surgery Visit Report [facility] [address] [place] [address]. [address] [place] [address] OFFICE VISIT Date of Service: 12/20/24 MR#: [id number] Acct: [id number] Name: GERMANIA DONIS Rep #: [id number] : 1945 Provider: Dr. Darrick kendrick MD Age/Sex: 79/F Location: [facility] Status: Signed Intake Vital Signs 12/05/24 [...] 100 mcg PO DAILY 09/27/24 12/20/24 History ypujjbgz-sxlkglor-fhtw c acid 240 1 tab PO DAILY 09/27/24 12/20/24 H istory mcg-vit K1 150 mcg-herb 357 tablet (Alive Women's 50 Plus Ultra Multivitamin) vitamins A,C,K-rnee-nwzfay 4,296 1 cap PO BID 09/27/24 12/20/24 [...] Op Diagnoses S/P small bowel resection Z90.49 [facility] Medical History (Updated 12/15/24 @ 00:00 by Background Daemon) Umbilical hernia Wears glasses Wears partial dentures [...] arrange f (more content not included)... Normal [facility] Absolute lymphocyte countOrd ered By: Eleonora Montaño on 12-07-2024 Lymphocytes Auto (Unsp spec) [#/Vol] 0.77 10*3/uL Low 0.83-4.51 [facility] Absolute neutrophil countOrd ered By: Eleonora Montaño on 12-07-2024 Neutrophils (Bld) [#/Vol] 3.3 10*3/uL 2.0-7.7 [facility] Anion gap in Serum or Plasma Ordered By: Eleonroa Montaño on 12-07-2024 Anion gap [Moles/Vol] 9 mmol/L 01-06 [facility] Automated lymphocyte count a s percentage of total leukocytesOrdered By: Eleonora Montaño on 12-07-2024 Lymphocytes/100 WBC Auto (Unsp spec) 16.5 % Low 19-41 [facility] BUN/creatinine ratioOrdered By: Eleonora Montaño on 12-07-2024 Urea nitrogen/Creatinine [Mass ratio] 17.0 mg/mg 06-13 [facility] Basic Metabolic Profile (BMP )on 12-07-2024 BUN/CRE 17.0 RATIO Normal 06-13 [facility] Comment on above: Performed By: #### L 100.0100, L500.2500, L501.5200, L501.2300 ####[facility] [address] [place], [address] Calcium [Mass/Vol] 8.1 mg/dL Normal 7.6-11.0 [facility] Comment on above: Performed By: #### L 100.0100, L500.2500, L501.5200, L501.2300 ####[facility] [address] [place], [address] Chloride [Moles/Vol] 113 mmol/L High 98-108 [facility] Comment on above: Performed By: #### L 100.0100, L500.2500, L501.5200, L501.2300 ####[facility] [address] [place], [address] CO2 [Moles/Vol] 19.9 mmol/L Low 21.0-32.0 [facility] Comment on above: Performed By: #### L 100.0100, L500.2500, L501.5200, L501.2300 ####[facility] [address] [place], [address] Creatinine [Mass/Vol] 0.71 mg/dL Normal 0.70-1.20 [facility] Comment on above: Performed By: #### L 100.0100, L500.2500, L501.5200, L501.2300 ####[facility] [address] [place], [address] ECRCL 52.40 ml/min Normal 50-250 [facility] Comment on above: Performed By: #### L 100.0100, L500.2500, L501.5200, L501.2300 ####[facility] [address] [place], [address] GAP 9 Normal 5-15 [facility] Comment on above: Performed By: #### L 100.0100, L500.2500, L501.5200, L501.2300 ####[facility] [address] [place], [address] GFR/1.73 sq M.predicted among non-blacks MDRD (S/P/Bld) [Vol rate/Area] 88 mL/min/{1.73_m2} Normal >60 [facility] Comment on above: Result Comment: mL/m in/1.73m2 CKD-EPI Creatinine Equation (2020) Performed By: #### L 100.0100, L500.2500, L501.5200, L501.2300 ####[facility] [address] [place], [address] Glucose [Mass/Vol] 87 mg/dL Normal 70-99 [facility] Comment on above: Performed By: #### L 100.0100, L500.2500, L501.5200, L501.2300 ####[facility] [address] [place], [address] Potassium [Moles/Vol] 3.8 mmol/L Normal 3.3-5.1 [facility] Comment on above: Performed By: #### L 100.0100, L500.2500, L501.5200, L501.2300 ####[facility] [address] [place], [address] Sodium [Moles/Vol] 141 mmol/L Normal 133-145 [facility] Comment on above: Performed By: #### L 100.0100, L500.2500, L501.5200, L501.2300 ####[facility] [address] [place], [address] Urea nitrogen [Mass/Vol] 12 mg/dL Normal 4-19 [facility] Comment on above: Performed By: #### L 100.0100, L500.2500, L501.5200, L501.2300 ####[facility] [address] [place], [address] Basophil percentageOrdered B y: Eleonora Montaño on 12-07-2024 Basophils/100 WBC (Bld) 0.6 % 0-1 [facility] CBC W/Diff, Automatedon 11-23 Absolute Lymph 0.77 X10 3/uL Low 0.83-4.51 [facility] Comment on above: Performed By: #### L 100.0100, L500.2500, L501.5200, L501.2300 ####[facility] [address] [place], [address] Absolute Neut 3.3 X10 3/uL Normal 2.0-7.7 [facility] Comment on above: Performed By: #### L 100.0100, L500.2500, L501.5200, L501.2300 ####[facility] [address] [place], [address] Basophils/100 WBC (Bld) 0.6 % Normal 0-1 [facility] Comment on above: Performed By: #### L 100.0100, L500.2500, L501.5200, L501.2300 ####[facility] [address] [place], [address] Eosinophils/100 WBC (Bld) 2.6 % Normal 0-5 [facility] Comment on above: Performed By: #### L 100.0100, L500.2500, L501.5200, L501.2300 ####[facility] [address] [place], [address] Erythrocyte distribution width (RBC) [Ratio] 14.3 % Normal 11.6-14.6 [facility] Comment on above: Performed By: #### L 100.0100, L500.2500, L501.5200, L501.2300 ####[facility] [address] [place], [address] Hematocrit (Bld) [Volume fraction] 31.8 % Low 37-47 [facility] Comment on above: Performed By: #### L 100.0100, L500.2500, L501.5200, L501.2300 ####[facility] [address] [place], [address] Hemoglobin (Bld) [Mass/Vol] 10.4 g/dL Low 12.0-15.0 [facility] Comment on above: Performed By: #### L 100.0100, L500.2500, L501.5200, L501.2300 ####[facility] [address] [place], [address] IG% 0.900 Normal 0.0-0.9 [facility] Comment on above: Result Comment: IG% - Immature Granulocytes (promyelocytes, myelocytes and metamyelocytes) > 1% indicates that a LEFT SHIFT is Present. Performed By: #### L 100.0100, L500.2500, L501.5200, L501.2300 ####[facility] [address] [place], [address] Lymphocytes/100 WBC (Bld) 16.5 % Low 19-41 [facility] Comment on above: Performed By: #### L 100.0100, L500.2500, L501.5200, L501.2300 ####[facility] [address] [place], [address] MCH (RBC) [Entitic mass] 29.9 pg Normal 27.0-32.0 [facility] Comment on above: Performed By: #### L 100.0100, L500.2500, L501.5200, L501.2300 ####[facility] [address] [place], [address] MCHC (RBC) [Mass/Vol] 32.7 g/dL Normal 32-36 [facility] Comment on above: Performed By: #### L 100.0100, L500.2500, L501.5200, L501.2300 ####[facility] [address] [place], [address] MCV (RBC) [Entitic vol] 91.4 fL Normal 81-99 [facility] Comment on above: Performed By: #### L 100.0100, L500.2500, L501.5200, L501.2300 ####[facility] [address] [place], [address] Monocytes/100 WBC (Bld) 8.6 % Normal 0-10 [facility] Comment on above: Performed By: #### L 100.0100, L500.2500, L501.5200, L501.2300 ####[facility] [address] [place], [address] Neutrophils/100 WBC (Bld) 70.8 % High 47-70 [facility] Comment on above: Performed By: #### L 100.0100, L500.2500, L501.5200, L501.2300 ####[facility] [address] [place], [address] Nucleated RBC (Bld) [#/Vol] 0 10*3/uL Normal 0-5 [facility] Comment on above: Performed By: #### L 100.0100, L500.2500, L501.5200, L501.2300 ####[facility] [address] [place], [address] Platelet mean volume (Bld) [Entitic vol] 10.7 fL Normal 6.2-12.0 [facility] Comment on above: Performed By: #### L 100.0100, L500.2500, L501.5200, L501.2300 ####[facility] [address] [place], [address] Platelets (Bld) [#/Vol] 217 10*3/uL Normal 150-450 [facility] Comment on above: Performed By: #### L 100.0100, L500.2500, L501.5200, L501.2300 ####[facility] [address] [place], [address] RBC (Bld) [#/Vol] 3.48 10*6/uL Low 4.2-5.4 [facility] Comment on above: Performed By: #### L 100.0100, L500.2500, L501.5200, L501.2300 ####[facility] [address] [place], [address] RDW SD 47.8 fl High 35.1-43.9 [facility] Comment on above: Performed By: #### L 100.0100, L500.2500, L501.5200, L501.2300 ####[facility] [address] [place], [address] WBC (Bld) [#/Vol] 4.7 10*3/uL Normal 4.4-11.0 [facility] Comment on above: Performed By: #### L 100.0100, L500.2500, L501.5200, L501.2300 ####[facility] [address] [place], [address] Carbon dioxide, total [Moles /volume] in Central venous bloodOrdered By: Eleonora Montaño on 12-07-2024 CO2 [Moles/Vol] 19.9 mmol/L Low 21.0-32.0 [facility] Chloride assayOrdered By: Heide Montaño on 12-07-2024 Chloride [Moles/Vol] 113 mmol/L High 98-108 [facility] Eosinophil percentageOrdered By: Eleonora Montaño on 12-07-2024 Eosinophils/100 WBC (Bld) 2.6 % 0-5 [facility] Erythrocyte distribution wid th (RBC) [Ratio]Ordered By: Eleonora Montaño on 12-07-2024 Erythrocyte distribution width (RBC) [Entitic vol] 47.8 fL High 35.1-43.9 [facility] Erythrocyte distribution wid th ratioOrdered By: Eleonora Montaño on 12-07-2024 Erythrocyte distribution width (RBC) [Ratio] 14.3 % 11.6-14.6 [facility] Erythrocyte distribution wid th standard deviationOrdered By: Eleonora Montaño on 12-07-2024 Erythrocyte distribution width (RBC) [Ratio] 47.8 fl High 35.1-43.9 [facility] Estimation of creatinine nora aranceOrdered By: Eleonora Montaño on 12-07-2024 Estimated Creatinine Clearance Calc 52.40 ml/min 50-250 [facility] GFR/1.73 sq M.predicted [place] g non-blacks MDRD (S/P/Bld) [Vol rate/Area]Ordered By: Eleonora Montaño on 12-07-2024 Estimated GFR (MDRD) Non-Af Amer 88 >60 [facility] Comment on above: mL/min/1.73m2 CKD-EP I Creatinine Equation (2020) Glomerular filtration rate ( GFR) estimation/1.73 sq m using serum, plasma, or whole bOrdered By: Eleonora Montaño on 12-07-2024 GFR/1.73 sq M.predicted among non-blacks MDRD (S/P/Bld) [Vol rate/Area] 88 mL/min/{1.73_m2} >60 [facility] Comment on above: mL/min/1.73m2 CKD-EP I Creatinine Equation (2020) Hematocrit Auto (Bld) [Volum e fraction]Ordered By: Eleonora Montaño on 12-07-2024 Hematocrit (Bld) [Volume fraction] 31.8 % Low 37-47 [facility] Hemoglobin measurementOrdere d By: Eleonora Montaño on 12-07-2024 Hemoglobin (Bld) [Mass/Vol] 10.4 g/dL Low 12.0-15.0 [facility] Immature granulocytes/100 WB C Auto (Bld)Ordered By: Eleonora Montaño on 12-07-2024 Immature granulocytes/100 WBC (Bld) 0.900 % 0.0-0.9 [facility] Comment on above: IG% - Immature Granu locytes (promyelocytes, myelocytes and metamyelocytes) > 1% indicates that a LEFT SHIFT is Present. Lymphocytes Auto (Unsp spec) [#/Vol]Ordered By: Eleonora Montaño on 12-07-2024 Lymphocytes (Bld) [#/Vol] 0.77 10*3/uL Low 0.83-4.51 [facility] Lymphocytes/100 WBC Auto (Un sp spec)Ordered By: Eleonora Montaño on 12-07-2024 Lymphocytes/100 WBC (Bld) 16.5 % Low 19-41 [facility] MCV (mean corpuscular volume ) determinationOrdered By: Eleonora Montaño on 12-07-2024 MCV (RBC) [Entitic vol] 91.4 fL 81-99 [facility] Magnesiumon 12-07-2024 Magnesium [Mass/Vol] 2.1 mg/dL Normal 1.5-2.2 [facility] Comment on above: Performed By: #### L 100.0100, L500.2500, L501.5200, L501.2300 ####[facility] [address] [place], [address] Magnesium (Unsp spec) [Mass/ Vol]Ordered By: Eleonora Montaño on 12-07-2024 Magnesium [Mass/Vol] 2.1 mg/dL 1.5-2.2 [facility] Magnesium measurement (mass/ volume)Ordered By: Eleonora Montaño on 12-07-2024 Magnesium (Unsp spec) [Mass/Vol] 2.1 mg/dL 1.5-2.2 [facility] Mean corpuscular hemoglobin (MCH) determinationOrdered By: Eleonora Montaño on 12-07-2024 MCH (RBC) [Entitic mass] 29.9 pg 27.0-32.0 [facility] Mean corpuscular hemoglobin concentration (MCHC) determinationOrdered By: Eleonora Montaño on 12-07-2024 MCHC (RBC) [Mass/Vol] 32.7 g/dL 32-36 [facility] Mean platelet volume determi nationOrdered By: Eleonora Montaño on 12-07-2024 Platelet mean volume (Bld) [Entitic vol] 10.7 fL 6.2-12.0 [facility] Monocyte percentageOrdered B y: Eleonora Montaño on 12-07-2024 Monocytes/100 WBC (Bld) 8.6 % 0-10 [facility] Neutrophil percentageOrdered By: Eleonora Montaño on 12-07-2024 Neutrophils/100 WBC (Bld) 70.8 % High 47-70 [facility] Nucleated red blood cell per centageOrdered By: Eleonora Montaño on 12-07-2024 Nucleated RBC/100 WBC (Bld) [Ratio] 0 % 0-5 [facility] Phosphoruson 12-07-2024 Phosphate [Mass/Vol] 2.4 mg/dL Low 2.7-4.5 [facility] Comment on above: Performed By: #### L 100.0100, L500.2500, L501.5200, L501.2300 ####[facility] [address] [place], [address] Platelet countOrdered By: Heide Montaño on 12-07-2024 Platelets (Bld) [#/Vol] 217 10*3/uL 150-450 [facility] Potassium (Unsp spec) [Mass/ Vol]Ordered By: Eleonora Montaño on 12-07-2024 Potassium [Moles/Vol] 3.8 mmol/L 3.3-5.1 [facility] Potassium measurement (mass/ volume)Ordered By: Eleonora Montaño on 12-07-2024 Potassium (Unsp spec) [Mass/Vol] 3.8 mmol/L 3.3-5.1 [facility] RBC Auto (Bld) [#/Vol]Ordere d By: Eleonora Montaño on 12-07-2024 RBC (Bld) [#/Vol] 3.48 10*6/uL Low 4.2-5.4 [facility] Serum creatinine measurement (mass/volume)Ordered By: Eleonora Montaño on 12-07-2024 Creatinine [Mass/Vol] 0.71 mg/dL 0.70-1.20 [facility] Serum glucose measurement (m ass/volume)Ordered By: Eleonora Montaño on 12-07-2024 Glucose [Mass/Vol] 87 mg/dL 70-99 [facility] Serum or plasma calcium demetrice urement (mass/volume)Ordered By: Eleonora Montaño on 12-07-2024 Calcium [Mass/Vol] 8.1 mg/dL 7.6-11.0 [facility] Serum or plasma urea nitroge n measurement (mass/volume)Ordered By: Eleonora Montaño on 12-07-2024 Urea nitrogen [Mass/Vol] 12 mg/dL 4-19 [facility] Serum phosphorus measurement Ordered By: Eleonora Montaño on 12-07-2024 Phosphorus Level 2.4 mg/dL Low 2.7-4.5 [facility] Sodium levelOrdered By: Markel Bender on 12-07-2024 Sodium [Moles/Vol] 141 mmol/L 133-145 [facility] White blood cell (WBC) count Ordered By: Eleonora Montaño on 12-07-2024 WBC (Bld) [#/Vol] 4.7 10*3/uL 4.4-11.0 [facility] Basic Metabolic Profile (BMP )on 12-06-2024 BUN/CRE 27.1 RATIO High 10-20 [facility] Comment on above: Performed By: #### L 100.0100, L501.5200, L500.2500, L501.2300 ####[facility] [address] [place], [address] Calcium [Mass/Vol] 8.0 mg/dL Normal 7.6-11.0 [facility] Comment on above: Performed By: #### L 100.0100, L501.5200, L500.2500, L501.2300 ####[facility] [address] [place], [address] Chloride [Moles/Vol] 112 mmol/L High 98-108 [facility] Comment on above: Performed By: #### L 100.0100, L501.5200, L500.2500, L501.2300 ####[facility] [address] [place], [address] CO2 [Moles/Vol] 18.8 mmol/L Low 21.0-32.0 [facility] Comment on above: Performed By: #### L 100.0100, L501.5200, L500.2500, L501.2300 ####[facility] [address] [place], [address] Creatinine [Mass/Vol] 0.64 mg/dL Low 0.70-1.20 [facility] Comment on above: Performed By: #### L 100.0100, L501.5200, L500.2500, L501.2300 ####[facility] [address] [place], [address] ECRCL 52.40 ml/min Normal 50-250 [facility] Comment on above: Performed By: #### L 100.0100, L501.5200, L500.2500, L501.2300 ####[facility] [address] [place], [address] GAP 9 Normal 5-15 [facility] Comment on above: Performed By: #### L 100.0100, L501.5200, L500.2500, L501.2300 ####[facility] [address] [place], [address] GFR/1.73 sq M.predicted among non-blacks MDRD (S/P/Bld) [Vol rate/Area] 91 mL/min/{1.73_m2} Normal >60 [facility] Comment on above: Result Comment: mL/m in/1.73m2 CKD-EPI Creatinine Equation (2020) Performed By: #### L 100.0100, L501.5200, L500.2500, L501.2300 ####[facility] [address] [place], [address] Glucose [Mass/Vol] 77 mg/dL Normal 70-99 [facility] Comment on above: Performed By: #### L 100.0100, L501.5200, L500.2500, L501.2300 ####[facility] [address] [place], [address] Potassium [Moles/Vol] 3.9 mmol/L Normal 3.3-5.1 [facility] Comment on above: Performed By: #### L 100.0100, L501.5200, L500.2500, L501.2300 ####[facility] [address] [place], [address] Sodium [Moles/Vol] 140 mmol/L Normal 133-145 [facility] Comment on above: Performed By: #### L 100.0100, L501.5200, L500.2500, L501.2300 ####[facility] [address] [place], [address] Urea nitrogen [Mass/Vol] 17 mg/dL Normal 4-19 [facility] Comment on above: Performed By: #### L 100.0100, L501.5200, L500.2500, L501.2300 ####[facility] [address] [place], [address] CBC W/Diff, Automatedon 11-23 Absolute Lymph 0.67 X10 3/uL Low 0.83-4.51 [facility] Comment on above: Performed By: #### L 100.0100, L501.5200, L500.2500, L501.2300 ####[facility] [address] [place], [address] Absolute Neut 3.8 X10 3/uL Normal 2.0-7.7 [facility] Comment on above: Performed By: #### L 100.0100, L501.5200, L500.2500, L501.2300 ####[facility] [address] [place], [address] Basophils/100 WBC (Bld) 0.2 % Normal 0-1 [facility] Comment on above: Performed By: #### L 100.0100, L501.5200, L500.2500, L501.2300 ####[facility] [address] [place], [address] Eosinophils/100 WBC (Bld) 0.4 % Normal 0-5 [facility] Comment on above: Performed By: #### L 100.0100, L501.5200, L500.2500, L501.2300 ####[facility] [address] [place], [address] Erythrocyte distribution width (RBC) [Ratio] 14.4 % Normal 11.6-14.6 [facility] Comment on above: Performed By: #### L 100.0100, L501.5200, L500.2500, L501.2300 ####[facility] [address] [place], [address] Hematocrit (Bld) [Volume fraction] 31.1 % Low 37-47 [facility] Comment on above: Performed By: #### L 100.0100, L501.5200, L500.2500, L501.2300 ####[facility] [address] [place], [address] Hemoglobin (Bld) [Mass/Vol] 10.1 g/dL Low 12.0-15.0 [facility] Comment on above: Performed By: #### L 100.0100, L501.5200, L500.2500, L501.2300 ####[facility] [address] [place], [address] IG% 0.400 Normal 0.0-0.9 [facility] Comment on above: Result Comment: IG% - Immature Granulocytes (promyelocytes, myelocytes and metamyelocytes) > 1% indicates that a LEFT SHIFT is Present. Performed By: #### L 100.0100, L501.5200, L500.2500, L501.2300 ####[facility] [address] [place], [address] Lymphocytes/100 WBC (Bld) 13.8 % Low 19-41 [facility] Comment on above: Performed By: #### L 100.0100, L501.5200, L500.2500, L501.2300 ####[facility] [address] [place], [place], [address] MCH (RBC) [Entitic mass] 30.1 pg Normal 27.0-32.0 [facility] Comment on above: Performed By: #### L 100.0100, L501.5200, L500.2500, L501.2300 ####[facility] [address] [place], [address] MCHC (RBC) [Mass/Vol] 32.5 g/dL Normal 32-36 [facility] Comment on above: Performed By: #### L 100.0100, L501.5200, L500.2500, L501.2300 ####[facility] [address] [place], [address] MCV (RBC) [Entitic vol] 92.6 fL Normal 81-99 [facility] Comment on above: Performed By: #### L 100.0100, L501.5200, L500.2500, L501.2300 ####[facility] [address] [place], [address] Monocytes/100 WBC (Bld) 6.4 % Normal 0-10 [facility] Comment on above: Performed By: #### L 100.0100, L501.5200, L500.2500, L501.2300 ####[facility] [address] [place], [address] Neutrophils/100 WBC (Bld) 78.8 % High 47-70 [facility] Comment on above: Performed By: #### L 100.0100, L501.5200, L500.2500, L501.2300 ####[facility] [address] [place], [address] Nucleated RBC (Bld) [#/Vol] 0 10*3/uL Normal 0-5 [facility] Comment on above: Performed By: #### L 100.0100, L501.5200, L500.2500, L501.2300 ####[facility] [address] [place], [address] Platelet mean volume (Bld) [Entitic vol] 10.6 fL Normal 6.2-12.0 [facility] Comment on above: Performed By: #### L 100.0100, L501.5200, L500.2500, L501.2300 ####[facility] [address] [place], [address] Platelets (Bld) [#/Vol] 185 10*3/uL Normal 150-450 [facility] Comment on above: Performed By: #### L 100.0100, L501.5200, L500.2500, L501.2300 ####[facility] [address] [place], [address] RBC (Bld) [#/Vol] 3.36 10*6/uL Low 4.2-5.4 [facility] Comment on above: Performed By: #### L 100.0100, L501.5200, L500.2500, L501.2300 ####[facility] [address] [place], [address] RDW SD 49.0 fl High 35.1-43.9 [facility] Comment on above: Performed By: #### L 100.0100, L501.5200, L500.2500, L501.2300 ####[facility] [address] [place], [address] WBC (Bld) [#/Vol] 4.9 10*3/uL Normal 4.4-11.0 [facility] Comment on above: Performed By: #### L 100.0100, L501.5200, L500.2500, L501.2300 ####[facility] [address] [place], [address] Magnesiumon 12-06-2024 Magnesium [Mass/Vol] 2.4 mg/dL High 1.5-2.2 [facility] Comment on above: Performed By: #### L 100.0100, L501.5200, L500.2500, L501.2300 ####[facility] [address] [place], [address] Phosphoruson 12-06-2024 Phosphate [Mass/Vol] 1.9 mg/dL Low 2.7-4.5 [facility] Comment on above: Performed By: #### L 100.0100, L501.5200, L500.2500, L501.2300 ####[facility] [address] [place], [address] Basic Metabolic Profile (BMP )on 12-05-2024 BUN/CRE 21.8 RATIO High 10-20 [facility] Comment on above: Performed By: #### L 500.3400, L501.2450, L500.2500, L100.0100 #### [facility] [address] [place], [address] Calcium [Mass/Vol] 8.2 mg/dL Normal 7.6-11.0 [facility] Comment on above: Performed By: #### L 500.3400, L501.2450, L500.2500, L100.0100 #### [facility] [address] [place], [address] Chloride [Moles/Vol] 113 mmol/L High 98-108 [facility] Comment on above: Performed By: #### L 500.3400, L501.2450, L500.2500, L100.0100 #### [facility] [address] [place], [address] CO2 [Moles/Vol] 15.4 mmol/L Low 21.0-32.0 [facility] Comment on above: Performed By: #### L 500.3400, L501.2450, L500.2500, L100.0100 #### [facility] [address] [place], [address] Creatinine [Mass/Vol] 0.68 mg/dL Low 0.70-1.20 [facility] Comment on above: Performed By: #### L 500.3400, L501.2450, L500.2500, L100.0100 #### [facility] [address] [place], [address] ECRCL 52.40 ml/min Normal 50-250 [facility] Comment on above: Performed By: #### L 500.3400, L501.2450, L500.2500, L100.0100 #### [facility] [address] [place], [address] GAP 14 Normal 5-15 [facility] Comment on above: Performed By: #### L 500.3400, L501.2450, L500.2500, L100.0100 #### [facility] [address] [place], [address] GFR/1.73 sq M.predicted among non-blacks MDRD (S/P/Bld) [Vol rate/Area] 90 mL/min/{1.73_m2} Normal >60 [facility] Comment on above: Result Comment: mL/m in/1.73m2 CKD-EPI Creatinine Equation (2020) Performed By: #### L 500.3400, L501.2450, L500.2500, L100.0100 #### [facility] [address] [place], [address] Glucose [Mass/Vol] 95 mg/dL Normal 70-99 [facility] Comment on above: Performed By: #### L 500.3400, L501.2450, L500.2500, L100.0100 #### [facility] [address] [place], [address] Potassium [Moles/Vol] 4.5 mmol/L Normal 3.3-5.1 [facility] Comment on above: Performed By: #### L 500.3400, L501.2450, L500.2500, L100.0100 #### [facility] [address] [place], [address] Sodium [Moles/Vol] 142 mmol/L Normal 133-145 [facility] Comment on above: Performed By: #### L 500.3400, L501.2450, L500.2500, L100.0100 #### [facility] [address] [place], [address] Urea nitrogen [Mass/Vol] 15 mg/dL Normal 4-19 [facility] Comment on above: Performed By: #### L 500.3400, L501.2450, L500.2500, L100.0100 #### [facility] [address] [place], [address] CBC W/Diff, Automatedon 04-08 27-2024 Absolute Lymph 0.54 X10 3/uL Low 0.83-4.51 [facility] Comment on above: Performed By: #### L 501.2300, L100.0100, L500.2500, L501.5200 ####[facility] [address] [place], [address] Absolute Neut 8.2 X10 3/uL High 2.0-7.7 [facility] Comment on above: Performed By: #### L 501.2300, L100.0100, L500.2500, L501.5200 ####[facility] [address] [place], [address] Basophils/100 WBC (Bld) 0.1 % Normal 0-1 [facility] Comment on above: Performed By: #### L 501.2300, L100.0100, L500.2500, L501.5200 ####[facility] [address] [place], [address] Eosinophils/100 WBC (Bld) 0.0 % Normal 0-5 [facility] Comment on above: Performed By: #### L 501.2300, L100.0100, L500.2500, L501.5200 ####[facility] [address] [place], [address] Erythrocyte distribution width (RBC) [Ratio] 14.3 % Normal 11.6-14.6 [facility] Comment on above: Performed By: #### L 501.2300, L100.0100, L500.2500, L501.5200 ####[facility] [address] [place], [address] Hematocrit (Bld) [Volume fraction] 37.1 % Normal 37-47 [facility] Comment on above: Performed By: #### L 501.2300, L100.0100, L500.2500, L501.5200 ####[facility] [address] [place], [address] Hemoglobin (Bld) [Mass/Vol] 11.6 g/dL Low 12.0-15.0 [facility] Comment on above: Performed By: #### L 501.2300, L100.0100, L500.2500, L501.5200 ####[facility] [address] [place], [address] IG% 0.600 Normal 0.0-0.9 [facility] Comment on above: Result Comment: IG% - Immature Granulocytes (promyelocytes, myelocytes and metamyelocytes) > 1% indicates that a LEFT SHIFT is Present. Performed By: #### L 501.2300, L100.0100, L500.2500, L501.5200 ####[facility] [address] [place], [address] Lymphocytes/100 WBC (Bld) 5.8 % Low 19-41 [facility] Comment on above: Performed By: #### L 501.2300, L100.0100, L500.2500, L501.5200 ####[facility] [address] [place], [address] MCH (RBC) [Entitic mass] 29.7 pg Normal 27.0-32.0 [facility] Comment on above: Performed By: #### L 501.2300, L100.0100, L500.2500, L501.5200 ####[facility] [address] [place], [address] MCHC (RBC) [Mass/Vol] 31.3 g/dL Low 32-36 [facility] Comment on above: Performed By: #### L 501.2300, L100.0100, L500.2500, L501.5200 ####[facility] [address] [place], [address] MCV (RBC) [Entitic vol] 94.9 fL Normal 81-99 [facility] Comment on above: Performed By: #### L 501.2300, L100.0100, L500.2500, L501.5200 ####[facility] [address] [place], [address] Monocytes/100 WBC (Bld) 5.7 % Normal 0-10 [facility] Comment on above: Performed By: #### L 501.2300, L100.0100, L500.2500, L501.5200 ####[facility] [address] [place], [address] Neutrophils/100 WBC (Bld) 87.8 % High 47-70 [facility] Comment on above: Performed By: #### L 501.2300, L100.0100, L500.2500, L501.5200 ####[facility] [address] [place], [address] Nucleated RBC (Bld) [#/Vol] 0 10*3/uL Normal 0-5 [facility] Comment on above: Performed By: #### L 501.2300, L100.0100, L500.2500, L501.5200 ####[facility] [address] [place], [address] Platelet mean volume (Bld) [Entitic vol] 11.3 fL Normal 6.2-12.0 [facility] Comment on above: Performed By: #### L 501.2300, L100.0100, L500.2500, L501.5200 ####[facility] [address] [place], [address] Platelets (Bld) [#/Vol] 189 10*3/uL Normal 150-450 [facility] Comment on above: Performed By: #### L 501.2300, L100.0100, L500.2500, L501.5200 ####[facility] [address] [place], [address] RBC (Bld) [#/Vol] 3.91 10*6/uL Low 4.2-5.4 [facility] Comment on above: Performed By: #### L 501.2300, L100.0100, L500.2500, L501.5200 ####[facility] [address] [place], [address] RDW SD 49.2 fl High 35.1-43.9 [facility] Comment on above: Performed By: #### L 501.2300, L100.0100, L500.2500, L501.5200 ####[facility] [address] [place], [address] WBC (Bld) [#/Vol] 9.4 10*3/uL Normal 4.4-11.0 [facility] Comment on above: Performed By: #### L 501.2300, L100.0100, L500.2500, L501.5200 ####[facility] [address] [place], [address] Magnesiumon 12-05-2024 Magnesium [Mass/Vol] 2.5 mg/dL High 1.5-2.2 [facility] Comment on above: Performed By: #### L 500.3400, L501.2450, L500.2500, L100.0100 #### [facility] [address] [place], [address] Phosphoruson 12-05-2024 Phosphate [Mass/Vol] 3.4 mg/dL Normal 2.7-4.5 [facility] Comment on above: Performed By: #### L 501.2300, L100.0100, L500.2500, L501.5200 ####[facility] [address], [address] Abdomen/Pelvis WITH Contrast on 12-04-2024 Abdomen/Pelvis WITH Contrast [facility] Imaging Services [address] [place] [address] Abdomen/Pelvis WITH Contrast MR#: [id number] Acct: [id number] Name: GERMANIA DONIS Rep #: [id number] : 1945 F 79 From: Kaila Choi nd, [place] PCP: Dr. Sowmya Cabrera MD Status: REG ER Study: Abdomen/Pelvis WITH Contrast Date of Exam: 08/18 Exam# [id number] Ordering Dr: Pardeep Naranjo DO PROCEDURE: ABDOMEN/PELVIS [...] at 10:34 a.m. on 12/04/2024. Reading Location: [facility] CC: Dr. Sowmya Cabrera MD; Dr. Pardeep Naranjo DO [employer]: Signed Normal [facility] Absolute neutrophil countOrd ered By: Pardeep Naranjo on 12-04-2024 Neutrophils (Bld) [#/Vol] 6.2 10*3/uL 2.0-7.7 [facility] Anion gap in Serum or Plasma Ordered By: Pardeep Naranjo on 12-04-2024 Anion gap [Moles/Vol] 10 mmol/L 5-15 [facility] BUN/creatinine ratioOrdered By: Pardeep Naranjo on 12-04-2024 Urea nitrogen/Creatinine [Mass ratio] 23.5 mg/mg High 10- [facility] Basic Metabolic Profile (BMP )on 12-04-2024 BUN/CRE 23.5 RATIO High - [facility] Comment on above: Performed By: #### L 500.3400, L501.2450, L500.2500, L100.0100 #### [facility] [address] [place], [address] Calcium [Mass/Vol] 9.0 mg/dL Normal 7.6-11.0 [facility] Comment on above: Performed By: #### L 500.3400, L501.2450, L500.2500, L100.0100 #### [facility] [address] [place], [address] Chloride [Moles/Vol] 101 mmol/L Normal 98-108 [facility] Comment on above: Performed By: #### L 500.3400, L501.2450, L500.2500, L100.0100 #### [facility] [address] [place], [address] CO2 [Moles/Vol] 24.3 mmol/L Normal 21.0-32.0 [facility] Comment on above: Performed By: #### L 500.3400, L501.2450, L500.2500, L100.0100 #### [facility] [address] [place], [address] Creatinine [Mass/Vol] 0.72 mg/dL Normal 0.70-1.20 [facility] Comment on above: Performed By: #### L 500.3400, L501.2450, L500.2500, L100.0100 #### [facility] [address] [place], [address] ECRCL 52.40 ml/min Normal 50-250 [facility] Comment on above: Performed By: #### L 500.3400, L501.2450, L500.2500, L100.0100 #### [facility] [address] [place], [address] GAP 10 Normal 5-15 [facility] Comment on above: Performed By: #### L 500.3400, L501.2450, L500.2500, L100.0100 #### [facility] [address] [place], [address] GFR/1.73 sq M.predicted among non-blacks MDRD (S/P/Bld) [Vol rate/Area] 86 mL/min/{1.73_m2} Normal >60 [facility] Comment on above: Result Comment: mL/m in/1.73m2 CKD-EPI Creatinine Equation (2020) Performed By: #### L 500.3400, L501.2450, L500.2500, L100.0100 #### [facility] [address] [place], [address] Glucose [Mass/Vol] 98 mg/dL Normal 70-99 [facility] Comment on above: Performed By: #### L 500.3400, L501.2450, L500.2500, L100.0100 #### [facility] [address] [place], [address] Potassium [Moles/Vol] 4.5 mmol/L Normal 3.3-5.1 [facility] Comment on above: Performed By: #### L 500.3400, L501.2450, L500.2500, L100.0100 #### [facility] [address] [place], [address] Sodium [Moles/Vol] 135 mmol/L Normal 133-145 [facility] Comment on above: Performed By: #### L 500.3400, L501.2450, L500.2500, L100.0100 #### [facility] [address] [place], [address] Urea nitrogen [Mass/Vol] 17 mg/dL Normal 4-19 [facility] Comment on above: Performed By: #### L 500.3400, L501.2450, L500.2500, L100.0100 #### [facility] [address] [place], [address] Basophil percentageOrdered B y: Pardeep Naranjo on 12-04-2024 Basophils/100 WBC (Bld) 0.1 % 0-1 [facility] Bilirubin Test strip Ql (U)O rdered By: Pardeep Naranjo on 12-04-2024 Bilirubin Ql (U) Negative Negative [facility] Bilirubin directOrdered By: Pardeep Naranjo on 12-04-2024 Bilirubin.direct [Mass/Vol] 0.28 mg/dL 0.00-0.30 [facility] Bilirubin, totalOrdered By: Pardeep Naranjo on 12-04-2024 Bilirubin [Mass/Vol] 0.59 mg/dL 0.00-1.30 [facility] CBC W/Diff, Automatedon 11-23 Absolute Lymph 0.71 X10 3/uL Low 0.83-4.51 [facility] Comment on above: Performed By: #### L 500.3400, L501.2450, L500.2500, L100.0100 #### [facility] [address] [place], [address] Absolute Neut 6.2 X10 3/uL Normal 2.0-7.7 [facility] Comment on above: Performed By: #### L 500.3400, L501.2450, L500.2500, L100.0100 #### [facility] [address] [place], [address] Basophils/100 WBC (Bld) 0.1 % Normal 0-1 [facility] Comment on above: Performed By: #### L 500.3400, L501.2450, L500.2500, L100.0100 #### [facility] [address] [place], [address] Eosinophils/100 WBC (Bld) 0.3 % Normal 0-5 [facility] Comment on above: Performed By: #### L 500.3400, L501.2450, L500.2500, L100.0100 #### [facility] [address] [place], [address] Erythrocyte distribution width (RBC) [Ratio] 14.0 % Normal 11.6-14.6 [facility] Comment on above: Performed By: #### L 500.3400, L501.2450, L500.2500, L100.0100 #### [facility] [address] [place], [address] Hematocrit (Bld) [Volume fraction] 37.1 % Normal 37-47 [facility] Comment on above: Performed By: #### L 500.3400, L501.2450, L500.2500, L100.0100 #### [facility] [address] [place], [address] Hemoglobin (Bld) [Mass/Vol] 12.2 g/dL Normal 12.0-15.0 [facility] Comment on above: Performed By: #### L 500.3400, L501.2450, L500.2500, L100.0100 #### [facility] [address] [place], [address] IG% 0.400 Normal 0.0-0.9 [facility] Comment on above: Result Comment: IG% - Immature Granulocytes (promyelocytes, myelocytes and metamyelocytes) > 1% indicates that a LEFT SHIFT is Present. Performed By: #### L 500.3400, L501.2450, L500.2500, L100.0100 #### [facility] [address] [place], [address] Lymphocytes/100 WBC (Bld) 9.5 % Low 19-41 [facility] Comment on above: Performed By: #### L 500.3400, L501.2450, L500.2500, L100.0100 #### [facility] [address] [place], [address] MCH (RBC) [Entitic mass] 29.7 pg Normal 27.0-32.0 [facility] Comment on above: Performed By: #### L 500.3400, L501.2450, L500.2500, L100.0100 #### [facility] [address] [place], [address] MCHC (RBC) [Mass/Vol] 32.9 g/dL Normal 32-36 [facility] Comment on above: Performed By: #### L 500.3400, L501.2450, L500.2500, L100.0100 #### [facility] [address] [place], [address] MCV (RBC) [Entitic vol] 90.3 fL Normal 81-99 [facility] Comment on above: Performed By: #### L 500.3400, L501.2450, L500.2500, L100.0100 #### [facility] [address] [place], [address] Monocytes/100 WBC (Bld) 6.5 % Normal 0-10 [facility] Comment on above: Performed By: #### L 500.3400, L501.2450, L500.2500, L100.0100 #### [facility] [address] [place], [address] Neutrophils/100 WBC (Bld) 83.2 % High 47-70 [facility] Comment on above: Performed By: #### L 500.3400, L501.2450, L500.2500, L100.0100 #### [facility] [address] [place], [address] Nucleated RBC (Bld) [#/Vol] 0 10*3/uL Normal 0-5 [facility] Comment on above: Performed By: #### L 500.3400, L501.2450, L500.2500, L100.0100 #### [facility] [address] [place], [address] Platelet mean volume (Bld) [Entitic vol] 10.9 fL Normal 6.2-12.0 [facility] Comment on above: Performed By: #### L 500.3400, L501.2450, L500.2500, L100.0100 #### [facility] [address] [place], [address] Platelets (Bld) [#/Vol] 182 10*3/uL Normal 150-450 [facility] Comment on above: Performed By: #### L 500.3400, L501.2450, L500.2500, L100.0100 #### [facility] [address] [place], [address] RBC (Bld) [#/Vol] 4.11 10*6/uL Low 4.2-5.4 [facility] Comment on above: Performed By: #### L 500.3400, L501.2450, L500.2500, L100.0100 #### [facility] [address] [place], [address] RDW SD 46.5 fl High 35.1-43.9 [facility] Comment on above: Performed By: #### L 500.3400, L501.2450, L500.2500, L100.0100 #### [facility] [address] [place], [address] WBC (Bld) [#/Vol] 7.4 10*3/uL Normal 4.4-11.0 [facility] Comment on above: Performed By: #### L 500.3400, L501.2450, L500.2500, L100.0100 #### [facility] [address] [place], [address] Carbon dioxide, total [Moles /volume] in Central venous bloodOrdered By: Pardeep Naranjo on 12-04-2024 CO2 [Moles/Vol] 24.3 mmol/L 21.0-32.0 [facility] Chloride assayOrdered By: Asher Naranjo on 12-04-2024 Chloride [Moles/Vol] 101 mmol/L 98-108 [facility] Emergency Department Summary on 12-04-2024 Emergency Department Summary [facility] Medical Records Department [address] [place] [address] Emergency Department Summary 12/04/24 MR#: [id number] Acct: [id number] Name: GERMANIA DONIS Rep #: [id number] : 1945 79 From: Pardeep Naranjo DO PCP: Dr. Sowmya Cabrera MD Status:ADM [place] [facility] [place]380-5 HPI HPI - GI History of Present [...] followed up and things were progressing normally. [facility] Medical History Umbilical hernia Wears [...] 100 mcg PO QDAY 09/27/24 11/03/24 History mfrddwxf-btfwkyzm-wxvz c acid 240 1 tab PO DAILY 09/27/24 11/03/24 H istory mcg-vit K1 150 mcg-herb 357 tablet (Alive Women's 50 Plus Ultra Multivitamin) vitamins A,C,S-zdyj-umlmwr 4,296 1 cap PO BID 09/27/24 11/03/24 [...] intact bilate (more content not included)... Normal [facility] Eosinophil percentageOrdered By: Pardeep Naranjo on 12-04-2024 Eosinophils/100 WBC (Bld) 0.3 % 0-5 [facility] Epithelial cells.squamous LM Ql (Urine sed)Ordered By: Pardeep Naranjo on 12-04-2024 Epithelial cells.squamous LM.HPF (Urine sed) [#/Area] 0 /[HPF] 5-10 [facility] Erythrocyte distribution wid th (RBC) [Ratio]Ordered By: Pardeep Naranjo on 12-04-2024 Erythrocyte distribution width (RBC) [Entitic vol] 46.5 fL High 35.1-43.9 [facility] Erythrocyte distribution wid th ratioOrdered By: Pardeep Naranjo on 12-04-2024 Erythrocyte distribution width (RBC) [Ratio] 14.0 % 11.6-14.6 [facility] Estimation of creatinine nora aranceOrdered By: Pardeep Naranjo on 12-04-2024 Estimated Creatinine Clearance Calc 52.40 ml/min 50-250 [facility] GFR/1.73 sq M.predicted [place] g non-blacks MDRD (S/P/Bld) [Vol rate/Area]Ordered By: Pardeep Naranjo on 12-04-2024 Estimated GFR (MDRD) Non-Af Amer 86 >60 [facility] Comment on above: mL/min/1.73m2 CKD-EP I Creatinine Equation (2020) Glucose Ql (U)Ordered By: Asher Naranjo on 12-04-2024 Urine Glucose (UA) Normal mg/dl Normal [facility] Hematocrit Auto (Bld) [Volum e fraction]Ordered By: Pardeep Naranjo on 12-04-2024 Hematocrit (Bld) [Volume fraction] 37.1 % 37-47 [facility] Hemoglobin measurementOrdere d By: Pardeep Naranjo on 12-04-2024 Hemoglobin (Bld) [Mass/Vol] 12.2 g/dL 12.0-15.0 [facility] Immature granulocytes/100 WB C Auto (Bld)Ordered By: Pardeep Naranjo on 12-04-2024 Immature granulocytes/100 WBC (Bld) 0.400 % 0.0-0.9 [facility] Comment on above: IG% - Immature Granu locytes (promyelocytes, myelocytes and metamyelocytes) > 1% indicates that a LEFT SHIFT is Present. Ketones Test strip Ql (U)Ord ered By: Pardeep Naranjo on 12-04-2024 Ketones Ql (U) 15 mg/dl High Negative [facility] - Chemistry and C hemistry - challengeOrdered By: Pardeep Naranjo on 12-04-2024 AST [Catalytic activity/Vol] 39 U/L High <32 [facility] Lipaseon 12-04-2024 Lipase [Catalytic activity/Vol] 31 U/L Normal 13-75 [facility] Comment on above: Result Comment: Plea se note: LIPASE revised reference range effective 22. New Lipase methodology. Expected to produce lower values than the previous assay method. NEW Reference Range: 13 - 75 U/L Performed By: #### L 500.3400, L501.2450, L500.2500, L100.0100 #### [facility] [address] [place], [address] Lipase measurementOrdered By : Pardeep Naranjo on 12-04-2024 Lipase [Catalytic activity/Vol] 31 U/L 13-75 [facility] Comment on above: Please note:LIPASE r evised reference range effective 22. New Lipase methodology. Expected to produce lower values than the previous assay method. NEW Reference Range: 13 - 75 U/L Liver Profileon 12-04-2024 Albumin [Mass/Vol] 3.5 g/dL Normal 3.4-4.8 [facility] Comment on above: Performed By: #### L 500.3400, L501.2450, L500.2500, L100.0100 #### [facility] [address] [place], [address] ALK PHOS 110 U/L High 35-104 [facility] Comment on above: Performed By: #### L 500.3400, L501.2450, L500.2500, L100.0100 #### [facility] [address] [place], [address] ALT [Catalytic activity/Vol] 32 U/L Normal <=34 [facility] Comment on above: Performed By: #### L 500.3400, L501.2450, L500.2500, L100.0100 #### [facility] [address] [place], [address] AST [Catalytic activity/Vol] 39 U/L High <=31 [facility] Comment on above: Performed By: #### L 500.3400, L501.2450, L500.2500, L100.0100 #### [facility] [address] [place], [address] Bilirubin [Mass/Vol] 0.59 mg/dL Normal 0.00-1.30 [facility] Comment on above: Performed By: #### L 500.3400, L501.2450, L500.2500, L100.0100 #### [facility] [address] [place], [address] Bilirubin.direct [Mass/Vol] 0.28 mg/dL Normal 0.00-0.30 [facility] Comment on above: Performed By: #### L 500.3400, L501.2450, L500.2500, L100.0100 #### [facility] [address] [place], [address] Globulin (S) [Mass/Vol] 3.4 g/dL Normal 2.2-4.2 [facility] Comment on above: Performed By: #### L 500.3400, L501.2450, L500.2500, L100.0100 #### [facility] [address] [place], [address] T PROT 6.9 g/dL Normal 5.9-8.4 [facility] Comment on above: Performed By: #### L 500.3400, L501.2450, L500.2500, L100.0100 #### [facility] [address] [place], [address] Lymphocytes Auto (Unsp spec) [#/Vol]Ordered By: Pardeep Naranjo on 12-04-2024 Lymphocytes (Bld) [#/Vol] 0.71 10*3/uL Low 0.83-4.51 [facility] Lymphocytes/100 WBC Auto (Un sp spec)Ordered By: Pardeep Naranjo on 12-04-2024 Lymphocytes/100 WBC (Bld) 9.5 % Low 19-41 [facility] MCV (mean corpuscular volume ) determinationOrdered By: Pardeep Naranjo on 12-04-2024 MCV (RBC) [Entitic vol] 90.3 fL 81-99 [facility] MR/POSTOP.ANEon 12-04-2024 MR/POSTOP.ANE [facility] Medical Records Department [address] [place] [address] Anesthesia Postop Eval I 12/04/24 1457 MR#: [id number] Acct: [id number] Name: GERMANIA DONIS Rep #: [id number] : 1945 79 From: Pardeep Pierre MD PCP: Dr. Sowmya Cabrera MD Status:ADM IN Y Race: C [place] [facility] [id number] Anesthesia: Postop Eval I Current Vital Signs [...] Postop Eval 1 completed: Yes 12/04/24 1459 Date Pardeep Pierre MD Cosigner Signature: Date CC: Signed Normal [facility] MR/[id number] 12-04-2024 [facility] Medical Records Department [address] [place] [address] Anesthesia Postop Eval II 12/04/24 1459 MR#: [id number] Acct: [id number] Name: GERMANIA DONIS Rep #: [id number] : 1945 79 From: Pardeep Pierre MD PCP: Dr. Sowmya Cabrera MD Status:ADM IN Y Race: C Location: [place] [address] Anesthesia Postop Eval I Sum Postop Eval [...] MD Cosigner Signature: Date CC: Signed Normal [facility] Mean corpuscular hemoglobin (MCH) determinationOrdered By: Pardeep Naranjo on 12-04-2024 MCH (RBC) [Entitic mass] 29.7 pg 27.0-32.0 [facility] Mean corpuscular hemoglobin concentration (MCHC) determinationOrdered By: Pardeep Naranjo on 12-04-2024 MCHC (RBC) [Mass/Vol] 32.9 g/dL 32-36 [facility] Mean platelet volume determi nationOrdered By: Pardeep Naranjo on 12-04-2024 Platelet mean volume (Bld) [Entitic vol] 10.9 fL 6.2-12.0 [facility] Microscopic analysis of urin e for red blood cells (RBC)Ordered By: Pardeep Naranjo on 12-04-2024 Microscopic analysis of urine for red blood cells (RBC) 0 SEEN /hpf 0-5 [facility] Urine RBC 0 SEEN /hpf 0-5 [facility] Monocyte percentageOrdered B y: Pardeep Naranjo on 12-04-2024 Monocytes/100 WBC (Bld) 6.5 % 0-10 [facility] Mucus LM Ql (Urine sed)Order ed By: Pardeep Naranjo on 12-04-2024 Mucus Ql (Urine sed) RARE /hpf [facility] Neutrophil percentageOrdered By: Pardeep Naranjo on 12-04-2024 Neutrophils/100 WBC (Bld) 83.2 % High 47-70 [facility] Nitrite Test strip Ql (U)Ord ered By: Pardeep Naranjo on 12-04-2024 Nitrite Ql (U) Negative Negative [facility] Nucleated red blood cell per centageOrdered By: Pardeep Naranjo on 12-04-2024 Nucleated RBC/100 WBC (Bld) [Ratio] 0 % 0-5 [facility] Operative Reporton Operative Report [facility] Medical Records Department [address] [place] [address] Operative Report 12/04/24 1434 MR#: [id number] Acct: [id number] Name: GERMANIA DONIS Rep #: [id number] : 1945 79 From: Darrick Light MD PCP: Dr. 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 Using atraumatic graspers and a suction labor law professor device I bluntly teased a perforated small [...] field labeled small bowel. Then a standard uxyb-au-mhat functional end-to-end small bowel anastomosis was created with a third firing of the GRACIE stapler. The common enterotomy was closed with a firing of a TX 60 stapler. The resulting staple line was largely hemostatic but was imbricated with a running 3-0 silk suture. Mesenteric defect was closed with a second running 3-0 silk suture. Finally a (more content not included)... Normal [facility] Platelet countOrdered By: Asher Naranjo on 12-04-2024 Platelets (Bld) [#/Vol] 182 10*3/uL 150-450 [facility] Potassium (Unsp spec) [Mass/ Vol]Ordered By: Pardeep Naranjo on 12-04-2024 Potassium [Moles/Vol] 4.5 mmol/L 3.3-5.1 [facility] Protein Test strip Ql (U)Ord ered By: Pardeep Naranjo on 12-04-2024 Protein Ql (U) 15 mg/dl High Negative [facility] RBC Auto (Bld) [#/Vol]Ordere d By: Pardeep Naranjo on 12-04-2024 RBC (Bld) [#/Vol] 4.11 10*6/uL Low 4.2-5.4 [facility] Serum creatinine measurement (mass/volume)Ordered By: Pardeep Naranjo on 12-04-2024 Creatinine [Mass/Vol] 0.72 mg/dL 0.70-1.20 [facility] Serum globulin measurementOr dered By: Pardeep Naranjo on 12-04-2024 Globulin (S) [Mass/Vol] 3.4 g/dL 2.2-4.2 [facility] Serum glucose measurement (m ass/volume)Ordered By: Pardeep Naranjo on 12-04-2024 Glucose [Mass/Vol] 98 mg/dL 70-99 [facility] Serum or plasma alanine eastman otransferase (ALT) measurementOrdered By: Pardeep Naranjo on 12-04-2024 ALT [Catalytic activity/Vol] 32 U/L <35 [facility] Serum or plasma albumin demetrice urement (mass/volume)Ordered By: Pardeep Naranjo on 12-04-2024 Albumin [Mass/Vol] 3.5 g/dL 3.4-4.8 [facility] Serum or plasma alkaline dedrick sphatase measurementOrdered By: Pardeep Naranjo on 12-04-2024 ALP [Catalytic activity/Vol] 110 U/L High 35-104 [facility] Serum or plasma calcium demetrice urement (mass/volume)Ordered By: Pardeep Naranjo on 12-04-2024 Calcium [Mass/Vol] 9.0 mg/dL 7.6-11.0 [facility] Serum or plasma urea nitroge n measurement (mass/volume)Ordered By: Pardeep Naranjo on 12-04-2024 Urea nitrogen [Mass/Vol] 17 mg/dL 4-19 [facility] Sodium levelOrdered By: Kelvin Naranjo on 12-04-2024 Sodium [Moles/Vol] 135 mmol/L 133-145 [facility] Squamous epithelial cells de tection in urine sediment by light microscopyOrdered By: Pardeep Naranjo on 12-04-2024 Epithelial cells.squamous LM Ql (Urine sed) 0-5 SEEN /hpf 5-10 [facility] Surgery Specimen Level Von 0 12-04-2024 Surgery Specimen Level V ------- ---- Patient Age/Sex Location Account Attending Physician ---- GERMANIA DONIS 79/F MS3 [id number] Dr. Darrick Light MD ---- Specimen: [id number] Received: 12/06/24 Status: PEG Mantilla Num: [id number] Spec Type: COLON Subm Dr: Dr. Darrick [...] No distinct mass-like lesion is grossly recognized. Scale Installer sections:A1-2. Opposing margins, en faceA3. Full-thickness section with transmural defectA4-5. Mucosa from outpouching and out-pouch to normal mucosa [facility] 12/13/2024 CPT:96577 ---- Patient Age/Sex Location Account Attending Physician ---- GERMANIA DONIS 79/F MS3 [id number] Dr. Darrick Light MD ---- Signed (signature on file) Dr. Prerna Rush MD 12/13/24 1407 ---- Normal [facility] Comment on above: Performed By: #### L 500.3400, L501.2450, L500.2500, L100.0100 #### [facility] [address] [place], [address] Total proteinOrdered By: Prosper Naranjo on 12-04-2024 Protein [Mass/Vol] 6.9 g/dL 5.9-8.4 [facility] Urinalysis, Completeon 12-04 BACTERIA 1+ /hpf Normal None Seen [facility] Comment on above: Order Comment: CLEAN CATCH Performed By: #### L 500.3400, L501.2450, L500.2500, L100.0100 #### [facility] [address] [place], [address] EPI,SQUAMOUS 0-5 SEEN Normal 5-10 [facility] Comment on above: Order Comment: CLEAN CATCH Performed By: #### L 500.3400, L501.2450, L500.2500, L100.0100 #### [facility] [address] [place], [address] Mucus Ql (Urine sed) RARE Normal [facility] Comment on above: Order Comment: CLEAN CATCH Performed By: #### L 500.3400, L501.2450, L500.2500, L100.0100 #### [facility] [address] [place], [address] WBC 0-5 SEEN Normal 0-5 [facility] Comment on above: Order Comment: CLEAN CATCH Performed By: #### L 500.3400, L501.2450, L500.2500, L100.0100 #### [facility] [address] [place], [address] RBC 0 SEEN Normal 0-5 [facility] Comment on above: Order Comment: CLEAN CATCH Performed By: #### L 500.3400, L501.2450, L500.2500, L100.0100 #### [facility] [address] [place] [place], [address] Urine blood detectionOrdered By: Pardeep Naranjo on 12-04-2024 Urine Occult Blood Negative Negative [facility] Urine clarityOrdered By: Prosper Naranjo on 12-04-2024 Clarity (U) Sl. Cloudy Clear [facility] Urine color determinationOrd ered By: Pardeep Naranjo on 12-04-2024 Color (U) Yellow Yellow [facility] Urine glucose detectionOrder ed By: Pardeep Naranjo on 12-04-2024 Glucose Ql (U) Normal mg/dl Normal [facility] Urine leukocyte esterase det ection by dipstickOrdered By: Pardeep Naranjo on 12-04-2024 Leukocyte esterase Test strip Ql (U) 25 /ul High Negative [facility] Urine pHOrdered By: Pardeep washburn on 12-04-2024 pH (U) 6.0 [pH] 5.0 - 8.0 [facility] Urine sediment bacteria coun t by microscopy (number/high power field)Ordered By: Pardeep Naranjo on 12-04-2024 Bacteria LM.HPF (Urine sed) [#/Area] 1 /[HPF] None Seen [facility] Urine specific gravity measu rementOrdered By: Pardeep Naranjo on 12-04-2024 Specific gravity (U) [Rel density] 1.010 1.002-1.030 [facility] Urine urobilinogen measureme ntOrdered By: Pardeep Naranjo on 12-04-2024 Urobilinogen Ql (U) Normal mg/dl Normal [facility] Urobilinogen Ql (U)Ordered B y: Pardeep Cliftonne on 12-04-2024 Urine Urobilinogen Normal mg/dl Normal [facility] White blood cell (WBC) count Ordered By: Pardeep Naranjo on 12-04-2024 WBC (Bld) [#/Vol] 7.4 10*3/uL 4.4-11.0 [facility] White blood cell countOrdere d By: Pardeep Naranjo on 12-04-2024 Urine WBC 0-5 SEEN /hpf 0-5 [facility] White blood cell count 0-5 SEEN /hpf 0-5 [facility] Surgery Visit Reporton 11-19 Surgery Visit Report [facility] [address] [place] [address] OFFICE VISIT Date of Service: 11/19/24 MR#: [id number] Acct: [id number] Name: GERMANIA DONIS Rep #: [id number] : 1945 Provider: Dr. Shelly louise MD Age/Sex: 79/F Location: [facility] Status: Signed Intake Vital Signs 11/04/24 [...] 100 mcg PO QDAY 09/27/24 11/04/24 History rxxalhes-suyanogk-vpvu c acid 240 1 tab PO DAILY 09/27/24 11/04/24 H istory mcg-vit K1 150 mcg-herb 357 tablet (Alive Women's 50 Plus Ultra Multivitamin) vitamins A,C,R-cksj-pfcdue 4,296 1 cap PO BID 09/27/24 11/04/24 [...] S/P umbilical hernia repair, follow-up exam Z09 [facility] Medical History (Updated 11/19/24 @ 10:14 by [...] is agreeable plan. Shelly Leonard M.D. Pager: [phone] [facility] [address] [place] [address], [address] [place] [address] Office: [phone] 11/22/24 0750 Date [facility] Signature: Date (if applicable) CC: Dr. Sowmya Cabrera MD Normal [facility] Discharge Instructionon 10-23 Discharge Instruction [facility] Medical Records Department [address] [place] [address] Instructions for Home/Discharge Instructions 11/04/24 0808 MR#: [id number] Acct: [id number] Name: GERMANIA DONIS Rep #: [id number] : 1945 79 From: Shelly Leonard MD PCP: Dr. Sowmya Cabrera MD Status:REG [facility] Discharge Instructions Diet Discharge Diet: Light diet [...] 5 PM and on the weekends call [phone] with any concerns. Test Results: Test results [...] the other half the bottle. Print Language: Ukrainian Discharge Orders/Prescriptions Prescriptions: New oxycodone 5 mg [...] CC: Dr. Sowmya Cabrera MD Signed Normal [facility] H AND P Exam - Surgicalon H&P Exam - Surgical [facility] Medical Records Department [address] [place] [address] H P Exam - Surgical 11/04/24 0717 MR#: [id number] Acct: [id number] Name: GERMANIA DONIS Rep #: [id number] : 1945 79 From: Shelly Leonard MD PCP: Dr. Sowmya Cabrera MD [facility] Location: [address] - General General Date of Service: 11/04/24 [...] it repaired. Patient denies any abdominal surgeries. [facility] Medical History Wears glasses Wears partial dentures [...] 100 mcg PO QDAY 09/27/24 11/03/24 History wsvhifet-omqjyoxn-gouu c acid 240 1 tab PO DAILY 09/27/24 11/03/24 H istory mcg-vit K1 150 mcg-herb 357 tablet (Alive Women's 50 Plus Ultra Multivitamin) vitamins A,C,W-jsac-slokfh 4,296 1 cap PO BID 09/27/24 11/03/24 [...] Social History (Updated 09/27/24 @ 14:13 by Gremania Mathur) Smoking Status: Never smoker alcohol intake: [...] further questions time. Shelly Leonard M.D. Pager: [phone] [facility] [address] [place] [address] [place] [address] Office: [phone] 11/04/24 0719 Cosigner Signature (if applicable): CC: Dr. Sowmya Cabrera MD; Dr. Shelly Leonard MD Signed [facility] MR/POSTOP.Tk 11-04-2024 MR/POSTOP.[facility] Medical Records Department [address] [place], [place] [address] Anesthesia Postop Eval I 11/04/24 0833 MR#: [id number] Acct: [id number] Name: GERMANIA DONIS Rep #: [id number] : 1945 79 From: Cyrus Leung CRNA PCP: Dr. Sowmya Cabrera MD Status:REG [facility] Y Race: C Location: [place] [address] Anesthesia: Postop Eval I Current Vital Signs [...] 1 completed: Yes 11/04/24939 Date Cyrus Leung ANIMAL CARE ATTENDANT Cosigner Signature: Date CC: Signed Normal [facility] MR/[id number] 11-04-2024 [facility] Medical Records Department [address] [place] [address] Anesthesia Postop Eval II 11/04/24 1122 MR#: [id number] Acct: [id number] Name: GERMANIA DONIS Rep #: [id number] : 1945 79 From: Man Link MD PCP: Dr. 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 Spontaneous unlabored Yes 11/04/24 09:40 ANIMAL CARE ATTENDANT.ACAR respirations Mental status nausea No 11/04/24 09:40 ANIMAL CARE ATTENDANT.ACAR Vomiting No 11/04/24 09:40 ANIMAL CARE ATTENDANT.ACAR Anesthesia Postop Eval I: Fluid Summary Crystalloid volume administer 1,000 11/04/24 09:40 ANIMAL CARE ATTENDANT.ACAR (ml) Colloids volume administered ( ml) Blood Product volume administered (ml) Total IV fluid infused 1,000 11/04/24 09:40 ANIMAL CARE ATTENDANT.ACAR Anesthesia Postop Eval I: Summary Notes Anesthesia Complication No 11/04/24 09:40 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 Sowmya Cabrera MD [facility] Location: [place] [address] Operative Report (Standard) Operative Information Date of Procedure: 11/04/24 Pre-Operative Diagnosis: Umbilical hernia Post-Operative Diagnosis: Same Surgery/Procedure Performed: Umbilical hernia repair with mesh travel coordinator: Yes Architectural Sales Consultant: Timoteo Ruiz Tasks completed by mortgage assistant: Opening closing Type of Anesthesia: General/Supplemental [...] hernia patch 4.3 cm in diameter, Lot [id number] ref [id number] Special Medications: Ancef 2 g IV x [...] The hernia defect was closed with a gkwojn-hq-vrphe 0 Nurolon. The wound was irrigated with [...] MD; Dr. Shelly Leonard MD Signed Normal [facility] TSH DL <= 0.005 mIU/L QnOrde red By: Tito Dexter on 10-28-2024 Thyroid Stimulating Hormone (TSH) 2.500 uIU/mL 0.300-4.200 [facility] TSH Qn 2.500 uIU/mL 0.300-4.200 [facility] Thyroid Stim Hormone (TSH)on 10-28-2024 TSH 2.500 uIU/mL Normal 0.300-4.200 [facility] Comment on above: Performed By: #### L 501.9520 #### [facility] [address] [place], [place], [address] Spine Cervical (Routine)on 0 10-04-2024 Spine Cervical (Routine) [facility] [address] [place] [address] Spine Cervical (Routine) MR#: [id number] Acct: [id number] Name: GERMANIA DONIS Rep #: [id number] : 1945 F 79 From: [facility] PCP: Dr. Sowmya Cabrera MD Status: REG CLI Study: Spine Cervical (Routine) Date of Exam: Exam# [id number] Ordering Dr: Sowmya Cabrera PROCEDURE: SPINE CERVICAL [...] changes are present with severe left and cwla-pn-zbdafyai right neural foraminal narrowing. 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 Facet/uncovertebral changes are present with severe left and gndv-xi-iiiksqdy right neural foraminal narrowing. C6-7: Disc osteophyte [...] Location: [place] CC: Dr. 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 [address] [place] [address] OFFICE VISIT Date of Service: 09/27/24 MR#: [id number] Acct: [id number] Name: GERMANIA DONIS Rep #: [id number] : 1945 Provider: Dr. Shelly louise MD Age/Sex: 79/F Location: [facility] Status: Signed Intake Vital Signs 09/07/20 [...] 100 mcg PO QDAY 09/27/24 09/27/24 History axcbkaxy-pnbehnvu-hryc c acid 240 tab PO 09/27/24 09/27/24 History mcg-vit K1 150 mcg-herb 357 tablet (Alive Women's 50 Plus Ultra Multivitamin) valacyclovir 1 gram tablet 1,000 mg PO TID 09/27/24 09/27/24 History vitamins A,C,Q-kbqg-zhblbm 4,296 1 cap PO BID 09/27/24 09/27/24 [...] healthy appearing, comfortable and no acute distress [facility] Head: normocephalic and atraumatic Neck Neck: supple [...] Status: Acute (more content not included)... Normal [facility] Re-Evaluation - PT (1)on Re-Evaluation - PT (1) [facility] [address] [place] [address] / REEVALUATION / MEDICARE RECERTIFICATION PHYSICAL THERAPY MR#: [id number] Acct: [id number] Name: GERMANIA DONIS Rep #: [id number] : 1945 79 From: Sary Mejia PT, Cert. MDT Referring Dr.: Dr. Lex Rhoades MD Status:REG RCR Insurance: MEDICARE PART A B [facility] Re-Evaluation Intro: Lex Rhoades MD, It has [...] 3+/5. R ELBOW 5/5 L 5/5. R SENIOR ETL DEVELOPER STRENGTH 35 LBS L 32 LBS . [...] do not hesitate to contact me at [phone] by phone or if you have questions or concerns regarding this new plan of care! Sincerely, Sary Mejia, PT, Cert MDT 08/12/24 1204 CC: Dr. Lex Rhoades MD; Dr. Sowmya Cabrera MD ALBARO Signed For Medicare only, by signing this I certify the plan of care. Physicians Signature Date Normal [facility] ANTINUCLEAR ANTIBODIES DIREC Ton 07-23-2024 MARYBETH,DIRECT Negative Normal Negative [facility] Comment on above: Order Comment: Order Date: 07/20/24Order Info: [id number] - MARYBETH Result Comment: Perf ormed at: [employer] [facility] [place] [address] [place], [place] [id number] Feather Mixer: Wilder Araya PhD, Phone: [phone] Performed By: #### L 100.0100, L503.6150, L503.0105, L501.9520, L101.9900, L503.6550, L500.4050, L501.5200, L3100.5475 ####[facility] [address] [place], [place], [id number] MARYBETH serumOrdered By: Yogi Cabrera on 07-20-2024 Anti-Nuclear Antibody Screen Negative Negative [facility] Comment on above: Performed at: [employer] [facility] [id number] [place], [place] [id number] Director: Wilder Araya PhD, Phone: [phone] Absolute neutrophil countOrd ered By: Sowmya Cabrera on 07-20-2024 Neutrophils (Bld) [#/Vol] 3.2 10*3/uL 2.0-7.7 [facility] Albumin to globulin ratioOrd ered By: Sowmya Cabrera on 07-20-2024 Albumin/Globulin [Mass ratio] 1.1 {ratio} 0.9-2.4 [facility] Basophil percentageOrdered B y: Sowmya Cabrera on 07-20-2024 Basophils/100 WBC (Bld) 0.4 % 0-1 [facility] Bilirubin, totalOrdered By: Sowmya Cabrera on 07-20-2024 Bilirubin [Mass/Vol] 0.60 mg/dL 0.20-1.00 [facility] Comment on above: For patients on eltr ombopag therapy, use of Dimension [place] TBIL is not recommended. Blood urea nitrogen (BUN)/cr eatinine ratioOrdered By: Sowmya Cabrera on 07-20-2024 Urea nitrogen/Creatinine [Mass ratio] 22.2 mg/mg High 10-20 [facility] CBC W/Diff, Automatedon 06-26 Absolute Lymph 0.91 X10 3/uL Normal 0.83-4.51 [facility] Comment on above: Order Comment: Order Date: 07/20/24 Order Info: 183-08 - CBCD Order Info: [id number] - SED Performed By: #### L 100.0100, L503.6150, L503.0105, L501.9520, L101.9900, L503.6550, L500.4050, L501.5200, L3100.5475 #### [facility] [address] [place], [address] Absolute Neut 3.2 X10 3/uL Normal 2.0-7.7 [facility] Comment on above: Order Comment: Order Date: 07/20/24 Order Info: 183-08 - CBCD Order Info: 85736-6 - SED Performed By: #### L 100.0100, L503.6150, L503.0105, L501.9520, L101.9900, L503.6550, L500.4050, L501.5200, L3100.5475 #### [facility] [address] [place], [address] Basophils/100 WBC (Bld) 0.4 % Normal 0-1 [facility] Comment on above: Order Comment: Order Date: 07/20/24 Order Info: 183-08 - CBCD Order Info: 46029-7 - SED Performed By: #### L 100.0100, L503.6150, L503.0105, L501.9520, L101.9900, L503.6550, L500.4050, L501.5200, L3100.5475 #### [facility] [address] [place], [address] Eosinophils/100 WBC (Bld) 1.3 % Normal 0-5 [facility] Comment on above: Order Comment: Order Date: 07/20/24 Order Info: 183-08 - CBCD Order Info: 66654-1 - SED Performed By: #### L 100.0100, L503.6150, L503.0105, L501.9520, L101.9900, L503.6550, L500.4050, L501.5200, L3100.5475 #### [facility] [address] [place], [place], [phone] Erythrocyte distribution width (RBC) [Ratio] 13.4 % Normal 11.6-14.6 [facility] Comment on above: Order Comment: Order Date: 07/20/24 Order Info: 183-08 - CBCD Order Info: 23371-1 - SED Performed By: #### L 100.0100, L503.6150, L503.0105, L501.9520, L101.9900, L503.6550, L500.4050, L501.5200, L3100.5475 #### [facility] [address] [place], [place], [phone] Hematocrit (Bld) [Volume fraction] 39.4 % Normal 37-47 [facility] Comment on above: Order Comment: Order Date: 07/20/24 Order Info: 183-08 - CBCD Order Info: 53891-8 - SED Performed By: #### L 100.0100, L503.6150, L503.0105, L501.9520, L101.9900, L503.6550, L500.4050, L501.5200, L3100.5475 #### [facility] [address] [place], [place], [phone] ([phone] Hemoglobin (Bld) [Mass/Vol] 12.8 g/dL Normal 12.0-15.0 [facility] Comment on above: Order Comment: Order Date: 07/20/24 Order Info: 183-08 - CBCD Order Info: 16260-8 - SED Performed By: #### L 100.0100, L503.6150, L503.0105, L501.9520, L101.9900, L503.6550, L500.4050, L501.5200, L3100.5475 #### [facility] [address] [place], [address] IG% 0.400 Normal 0.0-0.9 [facility] Comment on above: Order Comment: Order Date: 07/20/24 Order Info: 183-08 - CBCD Order Info: 78631-7 - SED Result Comment: IG% - Immature Granulocytes (promyelocytes, myelocytes and metamyelocytes) > 1% indicates that a LEFT SHIFT is Present. Performed By: #### L 100.0100, L503.6150, L503.0105, L501.9520, L101.9900, L503.6550, L500.4050, L501.5200, L3100.5475 #### [facility] [address] [place], [address] Lymphocytes/100 WBC (Bld) 20.0 % Normal 19-41 [facility] Comment on above: Order Comment: Order Date: 07/20/24 Order Info: 183-08 - CBCD Order Info: 36061-9 - SED Performed By: #### L 100.0100, L503.6150, L503.0105, L501.9520, L101.9900, L503.6550, L500.4050, L501.5200, L3100.5475 #### [facility] [address] [place], [address] MCH (RBC) [Entitic mass] 30.2 pg Normal 27.0-32.0 [facility] Comment on above: Order Comment: Order Date: 07/20/24 Order Info: 183-08 - CBCD Order Info: 90378-8 - SED Performed By: #### L 100.0100, L503.6150, L503.0105, L501.9520, L101.9900, L503.6550, L500.4050, L501.5200, L3100.5475 #### [facility] [address] [place], [address] MCHC (RBC) [Mass/Vol] 32.5 g/dL Normal 32-36 [facility] Comment on above: Order Comment: Order Date: 07/20/24 Order Info: 183- - CBCD Order Info: 90477-2 - SED Performed By: #### L 100.0100, L503.6150, L503.0105, L501.9520, L101.9900, L503.6550, L500.4050, L501.5200, L3100.5475 #### [facility] [address] [place], [address] MCV (RBC) [Entitic vol] 92.9 fL Normal 81-99 [facility] Comment on above: Order Comment: Order Date: 07/20/24 Order Info: 183-08 - CBCD Order Info: 90682-0 - SED Performed By: #### L 100.0100, L503.6150, L503.0105, L501.9520, L101.9900, L503.6550, L500.4050, L501.5200, L3100.5475 #### [facility] [address] [place], [address] Monocytes/100 WBC (Bld) 8.1 % Normal 0-10 [facility] Comment on above: Order Comment: Order Date: 07/20/24 Order Info: 01811-23 - CBCD Order Info: 71661-2 - SED Performed By: #### L 100.0100, L503.6150, L503.0105, L501.9520, L101.9900, L503.6550, L500.4050, L501.5200, L3100.5475 #### [facility] [address] [place], [address] Neutrophils/100 WBC (Bld) 69.8 % Normal 47-70 [facility] Comment on above: Order Comment: Order Date: 07/20/24 Order Info: 183-08 - CBCD Order Info: 69136-2 - SED Performed By: #### L 100.0100, L503.6150, L503.0105, L501.9520, L101.9900, L503.6550, L500.4050, L501.5200, L3100.5475 #### [facility] [address] [place], [address] Nucleated RBC (Bld) [#/Vol] 0 10*3/uL Normal 0-5 [facility] Comment on above: Order Comment: Order Date: 07/20/24 Order Info: 018- - CBCD Order Info: 07254-1 - SED Performed By: #### L 100.0100, L503.6150, L503.0105, L501.9520, L101.9900, L503.6550, L500.4050, L501.5200, L3100.5475 #### [facility] [address] [place], [place], [phone] (430) Platelet mean volume (Bld) [Entitic vol] 12.0 fL Normal 6.2-12.0 [facility] Comment on above: Order Comment: Order Date: 07/20/24 Order Info: 01811-23 - CBCD Order Info: 35289-1 - SED Performed By: #### L 100.0100, L503.6150, L503.0105, L501.9520, L101.9900, L503.6550, L500.4050, L501.5200, L3100.5475 #### [facility] [address] [place], [address] Platelets (Bld) [#/Vol] 216 10*3/uL Normal 150-450 [facility] Comment on above: Order Comment: Order Date: 07/20/24 Order Info: 018- - CBCD Order Info: 62661-3 - SED Performed By: #### L 100.0100, L503.6150, L503.0105, L501.9520, L101.9900, L503.6550, L500.4050, L501.5200, L3100.5475 #### [facility] [address] [place], [address] RBC (Bld) [#/Vol] 4.24 10*6/uL Normal 4.2-5.4 [facility] Comment on above: Order Comment: Order Date: 07/20/24 Order Info: 018- - CBCD Order Info: 97934-2 - SED Performed By: #### L 100.0100, L503.6150, L503.0105, L501.9520, L101.9900, L503.6550, L500.4050, L501.5200, L3100.5475 #### [facility] [address] [place], [address] RDW SD 45.4 fl High 35.1-43.9 [facility] Comment on above: Order Comment: Order Date: 07/20/24 Order Info: 01811-23 - CBCD Order Info: 84886-5 - SED Performed By: #### L 100.0100, L503.6150, L503.0105, L501.9520, L101.9900, L503.6550, L500.4050, L501.5200, L3100.5475 #### [facility] [address] [place], [address] WBC (Bld) [#/Vol] 4.6 10*3/uL Normal 4.4-11.0 [facility] Comment on above: Order Comment: Order Date: 07/20/24 Order Info: 01811-23 - CBCD Order Info: 18889-2 - SED Performed By: #### L 100.0100, L503.6150, L503.0105, L501.9520, L101.9900, L503.6550, L500.4050, L501.5200, L3100.5475 #### [facility] [address] [place], [address] Carbon dioxide measurementOr dered By: Sowmya Cabrera on 07-20-2024 CO2 [Moles/Vol] 30.0 mmol/L 21.0-32.0 [facility] Cerv Spine 4 or 5 Viewson Cerv Spine 4 or 5 Views [facility] [address] [place] [address] Cerv Spine 4 or 5 Views MR#: [id number] Acct: [id number] Name: GERMANIA DONIS Rep #: [id number] : 1945 F 79 From: Katie Lara PCP: Dr. Sowmya Cabrera MD Status: REG CLI Study: Cerv Spine 4 or 5 Views Date of Exam: 07/20/24 Exam# [id number] Ordering Dr: Sowmya Cabrera [id number] INDICATION: pain, bilateral shoulder pain EXAMINATION/TECHNIQUE: X-RAY [...] EST , CC: Dr. Sowmya Cabrera MD [employer]er: Signed Normal [facility] Chloride measurementOrdered By: Sowmya Cabrera on 07-20-2024 Chloride [Moles/Vol] 108 mmol/L High 98-107 [facility] Comprehensive Metabolic Prof ilon 07-20-2024 Albumin [Mass/Vol] 3.7 g/dL Normal 3.2-5.0 [facility] Comment on above: Order Comment: Order Date: 07/20/24Order Info: 0786- - CMPOrder Info: - MGOrder Info: 3015-10 - TSHOrder Info: 2497-11 - FEOrder Info: 2275-11 - REHAN Performed By: #### L 100.0100, L503.6150, L503.0105, L501.9520, L101.9900, L503.6550, L500.4050, L501.5200, L3100.5475 ####[facility] [address] [place], [address] Albumin/Globulin [Mass ratio] 1.1 {ratio} Normal 0.9-2.4 [facility] Comment on above: Order Comment: Order Date: 07/20/24Order Info: 07- - CMPOrder Info: - MGOrder Info: 3015-10 - TSHOrder Info: 2497-11 - FEOrder Info: 2275-11 - REHAN Performed By: #### L 100.0100, L503.6150, L503.0105, L501.9520, L101.9900, L503.6550, L500.4050, L501.5200, L3100.5475 ####[facility] [address] [place], [address] ALK P 96 U/L Normal 45-117 [facility] Comment on above: Order Comment: Order Date: 07/20/24Order Info: 785-1 - CMPOrder Info: [id number] - MGOrder Info: 3 - TSHOrder Info: 2497-11 - FEOrder Info: 2275-11 - REHAN Performed By: #### L 100.0100, L503.6150, L503.0105, L501.9520, L101.9900, L503.6550, L500.4050, L501.5200, L3100.5475 ####[facility] [address] [place], [address] ALT [Catalytic activity/Vol] 30 U/L Normal 13-56 [facility] Comment on above: Order Comment: Order Date: 07/20/24Order Info: 785- - CMPOrder Info: [id number] - MGOrder Info: 3015-10 - TSHOrder Info: 2497-11 - FEOrder Info: 2275-11 - REHAN Performed By: #### L 100.0100, L503.6150, L503.0105, L501.9520, L101.9900, L503.6550, L500.4050, L501.5200, L3100.5475 ####[facility] [address] [place], [address] AST [Catalytic activity/Vol] 32 U/L Normal 15-37 [facility] Comment on above: Order Comment: Order Date: 07/20/24Order Info: 785- - CMPOrder Info: - MGOrder Info: 3015-10 - TSHOrder Info: 2497-11 - FEOrder Info: 2275-11 - REHAN Performed By: #### L 100.0100, L503.6150, L503.0105, L501.9520, L101.9900, L503.6550, L500.4050, L501.5200, L3100.5475 ####[facility] [address] [place], [address] Bilirubin [Mass/Vol] 0.60 mg/dL Normal 0.20-1.00 [facility] Comment on above: Order Comment: Order Date: 07/20/24Order Info: 07-1 - CMPOrder Info: [id number] - MGOrder Info: 3 - TSHOrder Info: 2497-11 - FEOrder Info: 2275-11 - REHAN Result Comment: For patients on eltrombopag therapy, use of Dimension [place] TBIL is not recommended. Performed By: #### L 100.0100, L503.6150, L503.0105, L501.9520, L101.9900, L503.6550, L500.4050, L501.5200, L3100.5475 ####[facility] [address] [place], [place], [phone] BUN/CRE 22.2 RATIO High 10-20 [facility] Comment on above: Order Comment: Order Date: 07/20/24Order Info: 07- - CMPOrder Info: [id number] - MGOrder Info: 3015-10 - TSHOrder Info: 2497-11 - FEOrder Info: 2275-11 - REHAN Performed By: #### L 100.0100, L503.6150, L503.0105, L501.9520, L101.9900, L503.6550, L500.4050, L501.5200, L3100.5475 ####[facility] [address] [place], [place], [phone] CA,Total 9.3 mg/dL Normal 8.5-10.1 [facility] Comment on above: Order Comment: Order Date: 07/20/24Order Info: 07-1 - CMPOrder Info: [id number] - MGOrder Info: 3 - TSHOrder Info: 2497-11 - FEOrder Info: 2275-11 - REHAN Performed By: #### L 100.0100, L503.6150, L503.0105, L501.9520, L101.9900, L503.6550, L500.4050, L501.5200, L3100.5475 ####[facility] [address] [place], [place], [phone] Chloride [Moles/Vol] 108 mmol/L High 98-107 [facility] Comment on above: Order Comment: Order Date: 07/20/24Order Info: 785-1 - CMPOrder Info: 43845-0 - MGOrder Info: 3015-3 - TSHOrder Info: 2498-4 - FEOrder Info: 2275-11 - REHAN Performed By: #### L 100.0100, L503.6150, L503.0105, L501.9520, L101.9900, L503.6550, L500.4050, L501.5200, L3100.5475 ####[facility] [address] [place], [place], [phone] CO2 [Moles/Vol] 30.0 mmol/L Normal 21.0-32.0 [facility] Comment on above: Order Comment: Order Date: 07/20/24Order Info: 785-08 - CMPOrder Info: [id number] - MGOrder Info: 3 - TSHOrder Info: 24903-28 - FEOrder Info: 2275-11 - REHAN Performed By: #### L 100.0100, L503.6150, L503.0105, L501.9520, L101.9900, L503.6550, L500.4050, L501.5200, L3100.5475 ####[facility] [address] [place], [place], [phone] Creatinine [Mass/Vol] 0.68 mg/dL Normal 0.55-1.02 [facility] Comment on above: Order Comment: Order Date: 07/20/24Order Info: 785-1 - CMPOrder Info: [id number] - MGOrder Info: 3 - TSHOrder Info: 24903-28 - FEOrder Info: 2275-11 - REHAN Result Comment: The validity of the calculated GFR GFRAA in patients over 70 years has not been determined. Clinical correlation is essential. Performed By: #### L 100.0100, L503.6150, L503.0105, L501.9520, L101.9900, L503.6550, L500.4050, L501.5200, L3100.5475 ####[facility] [address] [place], [place], [phone] EST GFR - AA 109 mL/min Normal >60 [facility] Comment on above: Order Comment: Order Date: 07/20/24Order Info: 785-1 - CMPOrder Info: - MGOrder Info: 3015-10 - TSHOrder Info: 2497-11 - FEOrder Info: 2275-11 - REHAN Result Comment: Afri can Colombian GFR Calc Performed By: #### L 100.0100, L503.6150, L503.0105, L501.9520, L101.9900, L503.6550, L500.4050, L501.5200, L3100.5475 ####[facility] [address] [place], [place], [phone] GAP 3 Low 5-15 [facility] Comment on above: Order Comment: Order Date: 07/20/24Order Info: 785-08 - CMPOrder Info: - MGOrder Info: 3015-10 - TSHOrder Info: 2497-11 - FEOrder Info: 2275-11 - REHAN Performed By: #### L 100.0100, L503.6150, L503.0105, L501.9520, L101.9900, L503.6550, L500.4050, L501.5200, L3100.5475 ####[facility] [address] [place], [place], [phone] GFR/1.73 sq M.predicted among non-blacks MDRD (S/P/Bld) [Vol rate/Area] 90 mL/min/{1.73_m2} Normal >60 [facility] Comment on above: Order Comment: Order Date: 07/20/24Order Info: 785-1 - CMPOrder Info: 22723-6 - MGOrder Info: 3015-10 - TSHOrder Info: 2497-11 - FEOrder Info: 2275-11 - REHAN Result Comment: Non- GFR Calc Performed By: #### L 100.0100, L503.6150, L503.0105, L501.9520, L101.9900, L503.6550, L500.4050, L501.5200, L3100.5475 ####[facility] [address] [place], [address] Globulin (S) [Mass/Vol] 3.5 g/dL Normal 2.2-4.2 [facility] Comment on above: Order Comment: Order Date: 07/20/24Order Info: 785-1 - CMPOrder Info: - MGOrder Info: 3015-10 - TSHOrder Info: 2497-11 - FEOrder Info: 2275-11 - REHAN Performed By: #### L 100.0100, L503.6150, L503.0105, L501.9520, L101.9900, L503.6550, L500.4050, L501.5200, L3100.5475 ####[facility] [address] [place], [address] Glucose [Mass/Vol] 91 mg/dL Normal 74-106 [facility] Comment on above: Order Comment: Order Date: 07/20/24Order Info: 785- - CMPOrder Info: 03823-7 - MGOrder Info: 3015-10 - TSHOrder Info: 2497-11 - FEOrder Info: 2275-11 - REHAN Performed By: #### L 100.0100, L503.6150, L503.0105, L501.9520, L101.9900, L503.6550, L500.4050, L501.5200, L3100.5475 ####[facility] [address] [place], [address] Potassium [Moles/Vol] 3.7 mmol/L Normal 3.5-5.1 [facility] Comment on above: Order Comment: Order Date: 07/20/24Order Info: 785-1 - CMPOrder Info: 19687-4 - MGOrder Info: 3 - TSHOrder Info: 2497-11 - FEOrder Info: 2275-11 - REHAN Performed By: #### L 100.0100, L503.6150, L503.0105, L501.9520, L101.9900, L503.6550, L500.4050, L501.5200, L3100.5475 ####[facility] [address] [place], [address] Sodium [Moles/Vol] 141 mmol/L Normal 136-145 [facility] Comment on above: Order Comment: Order Date: 07/20/24Order Info: 785- - CMPOrder Info: 10092-7 - MGOrder Info: 3015-10 - TSHOrder Info: 2497-11 - FEOrder Info: 2275-11 - REHAN Performed By: #### L 100.0100, L503.6150, L503.0105, L501.9520, L101.9900, L503.6550, L500.4050, L501.5200, L3100.5475 ####[facility] [address] [place], [address] T PROT 7.2 g/dL Normal 6.4-8.2 [facility] Comment on above: Order Comment: Order Date: 07/20/24Order Info: 785- - CMPOrder Info: - MGOrder Info: 3015-10 - TSHOrder Info: 2497-11 - FEOrder Info: 2275-11 - REHAN Performed By: #### L 100.0100, L503.6150, L503.0105, L501.9520, L101.9900, L503.6550, L500.4050, L501.5200, L3100.5475 ####[facility] [address] [place], [address] Urea nitrogen [Mass/Vol] 15 mg/dL Normal 7-18 [facility] Comment on above: Order Comment: Order Date: 07/20/24Order Info: 0786-1 - CMPOrder Info: 81136-6 - MGOrder Info: 3016-3 - TSHOrder Info: 2498-4 - FEOrder Info: 2276-4 - REHAN Performed By: #### L 100.0100, L503.6150, L503.0105, L501.9520, L101.9900, L503.6550, L500.4050, L501.5200, L3100.5475 ####[facility] [address] [place], [place], [phone] Eosinophil percentageOrdered By: Sowmya Cabrera on 07-20-2024 Eosinophils/100 WBC (Bld) 1.3 % 0-5 [facility] Erythrocyte Sed Rateon 07-20 SED RATE 20 mm/hr Normal 0-30 [facility] Comment on above: Order Comment: Order Date: 07/20/24 Order Info: 0184-1 - CBCD Order Info: 43320-7 - SED Performed By: #### L 100.0100, L503.6150, L503.0105, L501.9520, L101.9900, L503.6550, L500.4050, L501.5200, L3100.5475 #### [facility] [address] [place], [place], [phone] Erythrocyte distribution wid th ratioOrdered By: Sowmya Cabrera on 07-20-2024 Erythrocyte distribution width (RBC) [Ratio] 13.4 % 11.6-14.6 [facility] Erythrocyte distribution wid th standard deviationOrdered By: Sowmya Cabrera on 07-20-2024 Erythrocyte distribution width (RBC) [Entitic vol] 45.4 fL High 35.1-43.9 [facility] Erythrocyte sedimentation ra teOrdered By: Sowmya Cabrera on 07-20-2024 ESR (Bld) [Velocity] 20 mm/h 0-30 [facility] Estimated glomerular filtrat ion rate (GFR) AmericanOrdered By: Sowmya Cabrera on 07-20-2024 Estimated GFR (MDRD) Amer 109 mL/min >60 [facility] Comment on above: GFR Calc Ferritinon 07-20-2024 Ferritin [Mass/Vol] 125 ng/mL Normal 8-252 [facility] Comment on above: Order Comment: Order Date: 07/20/24Order Info: 0786-1 - CMPOrder Info: [id number] - MGOrder Info: 3016-3 - TSHOrder Info: 2498-4 - FEOrder Info: 2276-4 - REHAN Performed By: #### L 100.0100, L503.6150, L503.0105, L501.9520, L101.9900, L503.6550, L500.4050, L501.5200, L3100.5475 ####[facility] [address] [place], [address] Ferritin measurementOrdered By: Sowmya Cabrera on 07-20-2024 Ferritin [Mass/Vol] 125 ng/mL 8-252 [facility] Glomerular filtration rate ( GFR) estimationOrdered By: Sowmya Cabrera on 07-20-2024 Estimated GFR (MDRD) Non-Af Amer 90 mL/min >60 [facility] Comment on above: Non- GFR Calc Glucose measurementOrdered B y: Sowmya Cabrera on 07-20-2024 Glucose [Mass/Vol] 91 mg/dL 74-106 [facility] Hematocrit Auto (Bld) [Volum e fraction]Ordered By: Sowmya Cabrera on 07-20-2024 Hematocrit (Bld) [Volume fraction] 39.4 % 37-47 [facility] Hemoglobin measurementOrdere d By: Sowmya Cabrera on 07-20-2024 Hemoglobin (Bld) [Mass/Vol] 12.8 g/dL 12.0-15.0 [facility] Immature granulocytes/100 WB C Auto (Bld)Ordered By: Sowmya Cabrera on 07-20-2024 Immature granulocytes/100 WBC (Bld) 0.400 % 0.0-0.9 [facility] Comment on above: IG% - Immature Granu locytes (promyelocytes, myelocytes and metamyelocytes) > 1% indicates that a LEFT SHIFT is Present. Ironon 07-20-2024 Iron [Mass/Vol] 38 ug/dL Low 50-170 [facility] Comment on above: Order Comment: Order Date: 07/20/24Order Info: 0786- - CMPOrder Info: - MGOrder Info: 3015-10 - TSHOrder Info: 2497-11 - FEOrder Info: 2275-11 - REHAN Performed By: #### L 100.0100, L503.6150, L503.0105, L501.9520, L101.9900, L503.6550, L500.4050, L501.5200, L3100.5475 ####[facility] [address] [place], [address] Iron (Unsp spec) [Mass/Mass] Ordered By: Sowmya Cabrera on 07-20-2024 Iron [Mass/Vol] 38 ug/dL Low 50-170 [facility] - Chemistry and C hemistry - challengeOrdered By: Sowmya Cabrera on 07-20-2024 AST [Catalytic activity/Vol] 32 U/L 15-37 [facility] Lymphocytes Auto (Unsp spec) [#/Vol]Ordered By: Sowmya Cabrera on 07-20-2024 Lymphocytes (Bld) [#/Vol] 0.91 10*3/uL 0.83-4.51 [facility] Lymphocytes/100 WBC Auto (Un sp spec)Ordered By: Sowmya Cabrera on 07-20-2024 Lymphocytes/100 WBC (Bld) 20.0 % 19-41 [facility] MCV (mean corpuscular volume ) determinationOrdered By: Sowmya Cabrera on 07-20-2024 MCV (RBC) [Entitic vol] 92.9 fL 81-99 [facility] Magnesiumon 07-20-2024 Magnesium [Mass/Vol] 2.2 mg/dL Normal 1.6-2.6 [facility] Comment on above: Order Comment: Order Date: 07/20/24Order Info: [id number] - CMPOrder Info: - MGOrder Info: [id number] - TSHOrder Info: [id number] - FEOrder Info: [id number] - REHAN Performed By: #### L 100.0100, L503.6150, L503.0105, L501.9520, L101.9900, L503.6550, L500.4050, L501.5200, L3100.5475 ####[facility] [id number] [place], [address] Magnesium measurementOrdered By: Sowmya Cabrera on 07-20-2024 Magnesium [Mass/Vol] 2.2 mg/dL 1.6-2.6 [facility] Mean corpuscular hemoglobin (MCH) determinationOrdered By: Sowmya Cabrera on 07-20-2024 MCH (RBC) [Entitic mass] 30.2 pg 27.0-32.0 [facility] Mean corpuscular hemoglobin concentration (MCHC) determinationOrdered By: Sowmya Cabrera on 07-20-2024 MCHC (RBC) [Mass/Vol] 32.5 g/dL 32-36 [facility] Mean platelet volume determi nationOrdered By: Sowmya Cabrera on 07-20-2024 Platelet mean volume (Bld) [Entitic vol] 12.0 fL 6.2-12.0 [facility] Monocyte percentageOrdered B y: Sowmya Cabrera on 07-20-2024 Monocytes/100 WBC (Bld) 8.1 % 0-10 [facility] Neutrophil percentageOrdered By: Sowmya Cabrera on 07-20-2024 Neutrophils/100 WBC (Bld) 69.8 % 47-70 [facility] Nucleated red blood cell per centageOrdered By: Sowmya Cabrera on 07-20-2024 Nucleated RBC/100 WBC (Bld) [Ratio] 0 % 0-5 [facility] Platelet countOrdered By: Zaynab Cabrera on 07-20-2024 Platelets (Bld) [#/Vol] 216 10*3/uL 150-450 [facility] Potassium measurementOrdered By: Sowmya Cabrera on 07-20-2024 Potassium [Moles/Vol] 3.7 mmol/L 3.5-5.1 [facility] RBC Auto (Bld) [#/Vol]Ordere d By: Sowmya Cabrrea on 07-20-2024 RBC (Bld) [#/Vol] 4.24 10*6/uL 4.2-5.4 [facility] Serum anion gap measurementO rdered By: Sowmya Cabrera on 07-20-2024 Anion gap [Moles/Vol] 3 mmol/L Low 5-15 [facility] Serum globulin measurementOr dered By: Sowmya Cabrera on 07-20-2024 Globulin (S) [Mass/Vol] 3.5 g/dL 2.2-4.2 [facility] Serum or plasma alanine eastman otransferase (ALT) measurementOrdered By: Sowmya Cabrera on 07-20-2024 ALT [Catalytic activity/Vol] 30 U/L 13-56 [facility] Serum or plasma albumin demetrice urement (mass/volume)Ordered By: Sowmya Cabrera on 07-20-2024 Albumin [Mass/Vol] 3.7 g/dL 3.2-5.0 [facility] Serum or plasma alkaline dedrick sphatase measurementOrdered By: Sowmya Cabrera on 07-20-2024 ALP [Catalytic activity/Vol] 96 U/L 45-117 [facility] Serum or plasma calcium demetrice urement (mass/volume)Ordered By: Sowmya Cabrera on 07-20-2024 Calcium [Mass/Vol] 9.3 mg/dL 8.5-10.1 [facility] Serum or plasma creatinine m easurement (mass/volume)Ordered By: Sowmya Cabrera on 07-20-2024 Creatinine [Mass/Vol] 0.68 mg/dL 0.55-1.02 [facility] Comment on above: The validity of the calculated GFR & GFRAA in patients over 70 years has not been determined. Clinical correlation is essential. Serum or plasma urea nitroge n measurement (mass/volume)Ordered By: Sowmya Cabrera on 07-20-2024 Urea nitrogen [Mass/Vol] 15 mg/dL 7-18 [facility] Sodium levelOrdered By: Shirin Cabrera on 07-20-2024 Sodium [Moles/Vol] 141 mmol/L 136-145 [facility] TSH QnOrdered By: Mann Cabrera on 07-20-2024 Thyroid Stimulating Hormone (TSH) 2.380 uIU/mL 0.358-3.740 [facility] Thyroid Stim Hormone (TSH)on 07-20-2024 TSH 2.380 uIU/mL Normal 0.358-3.740 [facility] Comment on above: Order Comment: Order Date: 07/20/24Order Info: [id number] - CMPOrder Info: [id number] - MGOrder Info: [id number] - TSHOrder Info: [id number] - FEOrder Info: [id number] - REHAN Performed By: #### L 100.0100, L503.6150, L503.0105, L501.9520, L101.9900, L503.6550, L500.4050, L501.5200, L3100.5475 ####[facility] [id number] [facility]. [place], [place], [id number] Total proteinOrdered By: Mari Cabrera on 07-20-2024 Protein [Mass/Vol] 7.2 g/dL 6.4-8.2 [facility] Vitamin B12on 07-20-2024 Cobalamin (Vitamin B12) [Mass/Vol] 559 pg/mL Normal [facility] Comment on above: Order Comment: Order Date: 07/20/24Order Info: [id number] - B12 Performed By: #### L 100.0100, L503.6150, L503.0105, L501.9520, L101.9900, L503.6550, L500.4050, L501.5200, L3100.5475 ####[facility] [address] [facility]. [place], [place], [id number] Vitamin B12 measurementOrder ed By: Sowmya Cabrera on 07-20-2024 Cobalamin (Vitamin B12) [Mass/Vol] 559 pg/mL [facility] White blood cell (WBC) count Ordered By: Sowmya Cabrera on 07-20-2024 WBC (Bld) [#/Vol] 4.6 10*3/uL 4.4-11.0 [facility] Inital Evaluation (1) - PTon 07-16-2024 Inital Evaluation (1) - PT [facility] Physical Therapy [facility] [address] [place] [address] / REHABILITATION SERVICES INITIAL EVALUATION MR#: [id number] Acct: [id number] Name: GERMANIA DONIS Rep #: [id number] : 1945 79 From: Sary Mejia PT, Cert. MDT Referring Dr.: Dr. Lex Rhoades MD Status: REG RCR Insurance: MEDICARE PART A B [facility] Patient's Visit Information Visit Information Visit Information: [...] IT KILLS ME AT TIMES. Least - 10 Currently: 10 Commenced as a result of: NO APPARENT [...] 3+/5. R ELBOW 5/5 L 5/5. 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 Normal [facility] Shoulder min 2 Viewson 07-06 Shoulder min 2 Views [facility] Services [address] [place], [place] [address] Shoulder min 2 Views MR#: [id number] Acct: [id number] Name: GERMANIA DONIS Rep #: [id number] : 1945 F 79 From: Marco Antonio Reynoso DO PCP: Dr. Sowmya Cabrera MD Status: REG CLI Study: Shoulder min 2 Views Date of Exam: 07/06/24 Exam# [id number] Ordering Dr: Lex Rhoades [place] [id number] INDICATION: Left shoulder pain EXAMINATION/TECHNIQUE: X-RAY - [...] 11:52 EST Reading Location ID and State: [facility] / [place] Tel [phone], Service support , CC: Dr. Lex Rhoades MD; Dr. Sowmya Cabrera MD [employer]er: Signed Normal [facility] Shoulder min 2 Viewson 04-19 Shoulder min 2 Views [facility] [address] [facility] [place], [place] [id number] Shoulder min 2 Views MR#: [id number] Acct: [id number] Name: GERMANIA DONIS Rep #: [id number] : 1945 F 78 From: Roxanna Rodriguez MD PCP: Dr. Sowmya Cabrera MD Status: REG CLI Study: Shoulder min 2 Views Date of Exam: 04/19/24 Exam# [id number] Ordering Dr: Sowmya Cabrera [id number] EXAM: XR LEFT SHOULDER COMPLETE, 2 OR [...] EDT , CC: Dr. Sowmya Cabrera MD [employer]: Signed Normal [facility] Basophil percentageOrdered B y: Mann Cabrera on 10-21-2023 Chloride [Moles/Vol] 110 mmol/L 98-107 [facility] Cholesterol [Mass/Vol] 224 mg/dL <200 [facility] Comment on above: <200 mg/dL Desirable 200-240 mg/dL Borderline >240 mg/dL High Risk Glucose [Mass/Vol] 98 mg/dL 74-106 [facility] Potassium [Moles/Vol] 4.2 mmol/L 3.5-5.1 [facility] Sodium [Moles/Vol] 142 mmol/L 136-145 [facility] Triglyceride [Mass/Vol] 50 mg/dL <199 [facility] Comment on above: The drugs N-Acetylcy steine and Metamizole may falsely depress this assay.Serum Triglycerides Reference Interval Normal <150 mg/dL Borderline high 150 - 199 mg/dL High 200 - 499 mg/dL Very High > or = 500 mg/dL Laboratory - Chemistry and C hemistry - challengeOrdered By: Mann Cabrera on 10-21-2023 Cholesterol in HDL [Mass/Vol] 71 mg/dL >40 [facility] Comment on above: The drugs N-Acetylcy steine and Metamizole may falsely depress this assay. Reference Range HDL <40 mg/dL Low HDL Cholesterol HDL >or= 60 mg/dL High HDL Cholesterol Cholesterol in LDL [Mass/Vol] 143 mg/dL 0-130 [facility] CO2 [Moles/Vol] 29.0 mmol/L 21.0-32.0 [facility] Urea nitrogen/Creatinine [Mass ratio] 27.7 mg/mg 10-20 [facility] No Panel InformationOrdered By: Mann Cabrera on 10-21-2023 Estimated GFR (MDRD) Amer 101 mL/min >60 [facility] Comment on above: GFR Calc Estimated GFR (MDRD) Non-Af Amer 84 mL/min >60 [facility] Comment on above: Non- GFR Calc VLDL Cholesterol 10 mg/dL 5-40 [facility] Serum or plasma calcium demetrice urement (mass/volume)Ordered By: Mann Cabrera on 10-21-2023 Calcium [Mass/Vol] 9.0 mg/dL 8.5-10.1 [facility] Serum or plasma creatinine m easurement (mass/volume)Ordered By: Mnan Cabrera on 10-21-2023 Creatinine [Mass/Vol] 0.72 mg/dL 0.55-1.02 [facility] Comment on above: The validity of the calculated GFR & GFRAA in patients over 70 years has not been determined. Clinical correlation is essential. Serum or plasma thyroid stim ulating hormone (TSH) measurement (units/volume)Ordered By: Mann Cabrera on 10-21-2023 TSH Qn 1.70 uIU/mL 0.358-3.74 [facility] Serum or plasma urea nitroge n measurement (mass/volume)Ordered By: Mann Cabrera on 10-21-2023 Urea nitrogen [Mass/Vol] 20 mg/dL 7-18 [facility] Thin prep Papanicolaou smear with manual screeningOrdered By: Mann Cabrera on 10-21-2023 Thin prep Papanicolaou smear with manual screening 3 5-15 [facility] Basophil percentageOrdered B y: Dr. Cabrera on 12-16-2022 Bilirubin [Mass/Vol] 0.30 mg/dL 0.20-1.00 [facility] Comment on above: For patients on eltr ombopag therapy, use of Dimension [place] TBIL is not recommended. Chloride [Moles/Vol] 108 mmol/L 98-107 [facility] Cholesterol [Mass/Vol] 210 mg/dL <200 [facility] Comment on above: <200 mg/dL Desirable 200-240 mg/dL Borderline >240 mg/dL High Risk Glucose [Mass/Vol] 93 mg/dL 74-106 [facility] Potassium [Moles/Vol] 3.7 mmol/L 3.5-5.1 [facility] Protein [Mass/Vol] 7.6 g/dL 6.4-8.2 [facility] Sodium [Moles/Vol] 139 mmol/L 136-145 [facility] Triglyceride [Mass/Vol] 86 mg/dL <199 [facility] Comment on above: The drugs N-Acetylcy steine and Metamizole may falsely depress this assay.Serum Triglycerides Reference Interval Normal <150 mg/dL Borderline high 150 - 199 mg/dL High 200 - 499 mg/dL Very High > or = 500 mg/dL Laboratory - Chemistry and C hemistry - challengeOrdered By: Dr. Cabrera on 12-16-2022 ALP [Catalytic activity/Vol] 90 U/L 45-117 [facility] ALT [Catalytic activity/Vol] 41 U/L 13-56 [facility] CO2 [Moles/Vol] 26.0 mmol/L 21.0-32.0 [facility] Free T4 [Mass/Vol] 1.10 ng/dL 0.76-1.46 [facility] Globulin (S) [Mass/Vol] 4.4 g/dL 2.2-4.2 [facility] Magnesium [Mass/Vol] 2.2 mg/dL 1.6-2.6 [facility] Urea nitrogen/Creatinine [Mass ratio] 21.1 mg/mg 10-20 [facility] No Panel InformationOrdered By: Dr. Cabrera on 12-16-2022 Estimated GFR (MDRD) Amer 112 mL/min >60 [facility] Comment on above: GFR Calc Estimated GFR (MDRD) Non-Af Amer 92 mL/min >60 [facility] Comment on above: Non- GFR Calc Ionized Calcium 5.0 mg/dL 4.5-5.6 [facility] Comment on above: Performed at: [address] [id number] Director: Wilder Araya PhD, Phone: [phone] Parathyroid Hormone (Intact) 25.4 pg/mL 18.4-80.1 [facility] Thyroid Stimulating Hormone (TSH) 0.30 uIU/mL 0.358-3.74 [facility] Vitamin D 25-Hydroxy 99.5 ng/mL [facility] Comment on above: Vitamin D 25(OH) Sta tus Range Deficiency <20 ng/mL (50nmol/L) Insufficiency 20 - 30 ng/mL (50 - 75 nmol/L) Sufficiency 30 - 100 ng/mL (75 - 250 nmol/L) Toxicity >100 ng/mL (>250 nmol/L) Serum or plasma albumin demetrice urement (mass/volume)Ordered By: Dr. Cabrera on 12-16-2022 Albumin [Mass/Vol] 3.2 g/dL 3.2-5.0 [facility] Serum or plasma albumin/glob ulin mass ratioOrdered By: Dr. Cabrera on 12-16-2022 Albumin/Globulin [Mass ratio] 0.7 {ratio} 0.9-2.4 [facility] Serum or plasma calcium demetrice urement (mass/volume)Ordered By: Dr. Cabrera on 12-16-2022 Calcium [Mass/Vol] 9.0 mg/dL 8.5-10.1 [facility] Serum or plasma cholesterol in HDL measurement (mass/volume)Ordered By: Dr. Cabrera on 12-16-2022 Cholesterol in HDL [Mass/Vol] 59 mg/dL >40 [facility] Comment on above: The drugs N-Acetylcy steine and Metamizole may falsely depress this assay. Reference Range HDL <40 mg/dL Low HDL Cholesterol HDL >or= 60 mg/dL High HDL Cholesterol Serum or plasma cholesterol in VLDL measurement (mass/volume)Ordered By: Dr. Cabrera on 12-16-2022 Cholesterol in VLDL [Mass/Vol] 17 mg/dL 5-40 [facility] Serum or plasma creatinine m easurement (mass/volume)Ordered By: Dr. Cabrera on 12-16-2022 Creatinine [Mass/Vol] 0.66 mg/dL 0.55-1.02 [facility] Comment on above: The validity of the calculated GFR & GFRAA in patients over 70 years has not been determined. Clinical correlation is essential. Serum or plasma low density lipoprotein (LDL) cholesterol measurement (mass/volume)Ordered By: Dr. Cabrera on 12-16-2022 Cholesterol in LDL [Mass/Vol] 134 mg/dL 0-130 [facility] Serum or plasma urea nitroge n measurement (mass/volume)Ordered By: Dr. Cabrera on 12-16-2022 Urea nitrogen [Mass/Vol] 14 mg/dL 7-18 [facility] Thin prep Papanicolaou smear with manual screeningOrdered By: Dr. Cabrera on 12-16-2022 Thin prep Papanicolaou smear with manual screening 38 U/L 15-37 [facility] Thin prep Papanicolaou smear with manual screening 5 5-15 [facility] Laboratory - Chemistry and C hemistry - challengeon 06-24-2022 Free T4 [Mass/Vol] 1.19 ng/dL 0.76-1.46 [facility] Work Phone: No Panel Informationon 06-24 Thyroid Stimulating Hormone (TSH) 0.77 uIU/mL 0.358-3.74 [facility] Work Phone: Basophil percentageon 2021 Bilirubin [Mass/Vol] 0.40 mg/dL 0.20-1.00 [facility] Work Phone: Comment on above: For patients on eltr ombopag therapy, use of Dimension [place] TBIL is not recommended. Chloride [Moles/Vol] 107 mmol/L 98-107 [facility] Work Phone: Cholesterol [Mass/Vol] 251 mg/dL <200 [facility] Work Phone: Comment on above: <200 mg/dL Desirable 200-240 mg/dL Borderline >240 mg/dL High Risk Glucose [Mass/Vol] 90 mg/dL 74-106 [facility] Work Phone: Potassium [Moles/Vol] 4.1 mmol/L 3.5-5.1 [facility] Work Phone: Protein [Mass/Vol] 7.3 g/dL 6.4-8.2 [facility] Work Phone: Sodium [Moles/Vol] 140 mmol/L 136-145 [facility] Work Phone: Triglyceride [Mass/Vol] 66 mg/dL <199 [facility] Work Phone: [phone] Comment on above: The drugs N-Acetylcy steine and Metamizole may falsely depress this assay.Serum Triglycerides Reference Interval Normal <150 mg/dL Borderline high 150 - 199 mg/dL High 200 - 499 mg/dL Very High > or = 500 mg/dL WBC (Bld) [#/Vol] 4.3 10*3/uL 4.4-11.0 [facility] Work Phone: [phone] Blood erythrocytes count (nu mber/volume)on 04-30-2022 RBC (Bld) [#/Vol] 4.44 10*6/uL 4.2-5.4 [facility] Work Phone: [phone] Blood hemoglobin measurement (mass/volume)on 04-30-2022 Hemoglobin (Bld) [Mass/Vol] 13.1 g/dL 12.0-15.0 [facility] Work Phone: [phone] Blood platelet mean volumeon 04-30-2022 Platelet mean volume (Bld) [Entitic vol] 11.6 fL 6.2-12.0 [facility] Work Phone: [phone] Determination of erythrocyte mean corpuscular volume (MCV)on 04-30-2022 MCV (RBC) [Entitic vol] 92.1 fL 81-99 [facility] Work Phone: [phone] Hematocrit Auto (Bld) [Volum e fraction]on 04-30-2022 Hematocrit (Bld) [Volume fraction] 40.9 % 37-47 [facility] Work Phone: [phone] Laboratory - Chemistry and C hemistry - challengeon 04-30-2022 ALP [Catalytic activity/Vol] 85 U/L 45-117 [facility] Work Phone: [phone] ALT [Catalytic activity/Vol] 34 U/L 13-56 [facility] Work Phone: [phone] CO2 [Moles/Vol] 28.0 mmol/L 21.0-32.0 [facility] Work Phone: [phone] Free T4 [Mass/Vol] 0.91 ng/dL 0.76-1.46 [facility] Work Phone: Globulin (S) [Mass/Vol] 3.9 g/dL 2.2-4.2 [facility] Work Phone: [phone] Urea nitrogen/Creatinine [Mass ratio] 28.1 mg/mg 10-20 [facility] Work Phone: Laboratory - Hematology and Cell countson 04-30-2022 Erythrocyte distribution width (RBC) [Entitic vol] 46.3 fL 35.1-43.9 [facility] Work Phone: Erythrocyte distribution width (RBC) [Ratio] 13.6 % 11.6-14.6 [facility] Work Phone: MCH (RBC) [Entitic mass] 29.5 pg 27.0-32.0 [facility] Work Phone: MCHC Auto (RBC) [Mass/Vol]on 04-30-2022 MCHC (RBC) [Mass/Vol] 32.0 g/dL 32-36 [facility] Work Phone: No Panel Informationon 04-30 Estimated GFR (MDRD) Amer 97 mL/min >60 [facility] Work Phone: Comment on above: GFR Calc Estimated GFR (MDRD) Non-Af Amer 80 mL/min >60 [facility] Work Phone: Comment on above: Non- GFR Calc Thyroid Stimulating Hormone (TSH) 3.14 uIU/mL 0.358-3.74 [facility] Work Phone: Vitamin D 25-Hydroxy 62.3 ng/mL [facility] Work Phone: Comment on above: Vitamin D 25(OH) Sta tus Range Deficiency <20 ng/mL (50nmol/L) Insufficiency 20 - 30 ng/mL (50 - 75 nmol/L) Sufficiency 30 - 100 ng/mL (75 - 250 nmol/L) Toxicity >100 ng/mL (>250 nmol/L) Platelets bldon 04-30-2022 Platelets (Bld) [#/Vol] 203 10*3/uL 150-450 [facility] Work Phone: Serum or plasma albumin demetrice urement (mass/volume)on 04-30-2022 Albumin [Mass/Vol] 3.4 g/dL 3.2-5.0 [facility] Work Phone: Serum or plasma albumin/glob ulin mass ratioon 04-30-2022 Albumin/Globulin [Mass ratio] 0.9 {ratio} 0.9-2.4 [facility] Work Phone: Serum or plasma calcium demetrice urement (mass/volume)on 04-30-2022 Calcium [Mass/Vol] 9.1 mg/dL 8.5-10.1 [facility] Work Phone: Serum or plasma cholesterol in HDL measurement (mass/volume)on 04-30-2022 Cholesterol in HDL [Mass/Vol] 72 mg/dL >40 [facility] Work Phone: Comment on above: The drugs N-Acetylcy steine and Metamizole may falsely depress this assay. Reference Range HDL <40 mg/dL Low HDL Cholesterol HDL >or= 60 mg/dL High HDL Cholesterol Serum or plasma cholesterol in VLDL measurement (mass/volume)on 04-30-2022 Cholesterol in VLDL [Mass/Vol] 13 mg/dL 5-40 [facility] Work Phone: Serum or plasma creatinine m easurement (mass/volume)on 04-30-2022 Creatinine [Mass/Vol] 0.75 mg/dL 0.55-1.02 [facility] Work Phone: Comment on above: The validity of the calculated GFR & GFRAA in patients over 70 years has not been determined. Clinical correlation is essential. Serum or plasma low density lipoprotein (LDL) cholesterol measurement (mass/volume)on 04-30-2022 Cholesterol in LDL [Mass/Vol] 166 mg/dL 0-130 [facility] Work Phone: Serum or plasma urea nitroge n measurement (mass/volume)on 04-30-2022 Urea nitrogen [Mass/Vol] 21 mg/dL 7-18 [facility] Work Phone: Thin prep Papanicolaou smear with manual screeningon 04-30-2022 Thin prep Papanicolaou smear with manual screening 30 U/L 15-37 [facility] Work Phone: Thin prep Papanicolaou smear with manual screening 5 5-15 [facility] Work Phone: Basophil percentageon 2021 Basophil percentage 65 mg/dL [facility] Work Phone: No Panel Informationon 11-23 Insulin Resistance/Diabetes Risk <25 [facility] Work Phone: Comment on above: INSULIN [...] one component of a physician'sclinical assessment.Performed at: [facility] [facility] [employer] [address] [id number] Director: Tomy Moser MD, Phone: [phone] LDL Cholesterol Particle Number [id number] nmol/L [facility] Work Phone: Comment on above: Low < 1000 Moderate 1000 - 1299 Borderline-High 1300 - 1599 High 1600 - 2000 Very High > 2000 LDL Cholesterol Particle Size 21.6 nm [facility] Work Phone: Comment on above: INTERPRETATIVE [...] into account. LDL Cholesterol, Calculated 156 mg/dL [facility] Work Phone: Comment on above: Optimal < 100 Above optimal 100 - 129 Borderline 130 - 159 High 160 - 189 Very high > 189 Small LDL Particle Number [id number] nmol/L [facility] Work Phone: Serum or plasma cholesterol in HDL measurement (mass/volume)on 11-23-2021 Cholesterol in HDL [Mass/Vol] 63 mg/dL [facility] Work Phone: Serum or plasma cholesterol measurement (mass/volume)on 11-23-2021 Cholesterol [Mass/Vol] 230 mg/dL [facility] Work Phone: Thin prep Papanicolaou smear with manual screeningon 11-23-2021 Thin prep Papanicolaou smear with manual screening 34.3 umol/L [facility] Work Phone: CT CARDIAC SCORINGon 022 CT CARDIAC SCORING Patient Name: GERMANIA DONIS STUDY: CT CARDIAC SCORING; 08/31/2021 3:12 pm INDICATION: E78.5 Hyperlipidemia, unspecified. COMPARISON: None. ACCESSION NUMBER(S): [id number] ORDERING CLINICIAN: SOWMYA CABRERA TECHNIQUE: Using prospective [...] coronary heart disease events. According to the [employer] Clinical Expert Consensus [...] modify other non-lipid coronary risk factors. Reference: [place] P et al. Circulation. 2007; 115:402-426 2. Faint ground-glass opacities in the right upper lobe, which may be related to infiltrates. Clinical correlation and further evaluation may be obtained as clinically warranted. The report was faxed to the referring office. Electronically signed by: JINA OVALLE MD Normal [facility] Absolute lymphocyte counton 08-01-2021 Lymphocytes Auto (Unsp spec) [#/Vol] 1.08 10*3/uL 0.83-4.51 [facility] Work Phone: Basophil percentageon 2020 Bilirubin [Mass/Vol] 0.50 mg/dL 0.20-1.00 [facility] Work Phone: Comment on above: For patients on eltr ombopag therapy, use of Dimension [place] TBIL is not recommended. Chloride [Moles/Vol] 104 mmol/L 98-107 [facility] Work Phone: Cholesterol [Mass/Vol] 324 mg/dL <200 [facility] Work Phone: Comment on above: <200 mg/dL Desirable 200-240 mg/dL Borderline >240 mg/dL High Risk Eosinophils/100 WBC (Bld) 0.2 % 0-5 [facility] Work Phone: Glucose [Mass/Vol] 96 mg/dL 74-106 [facility] Work Phone: Comment on above: Please note revised GLUCOSE reference range effective 2017. Neutrophils (Bld) [#/Vol] 8.4 10*3/uL 2.0-7.7 [facility] Work Phone: Potassium [Moles/Vol] 4.0 mmol/L 3.5-5.1 [facility] Work Phone: [phone] Protein [Mass/Vol] 7.8 g/dL 6.4-8.2 [facility] Work Phone: Sodium [Moles/Vol] 138 mmol/L 136-145 [facility] Work Phone: [phone] Triglyceride [Mass/Vol] 59 mg/dL [facility] Work Phone: Comment on above: The drugs N-Acetylcy steine and Metamizole may falsely depress this assay.Serum Triglycerides Reference Interval Normal <150 mg/dL Borderline high 150 - 199 mg/dL High 200 - 499 mg/dL Very High > or = 500 mg/dL WBC (Bld) [#/Vol] 10.3 10*3/uL 4.4-11.0 [facility] Work Phone: Blood erythrocytes count (nu mber/volume)on 08-01-2021 RBC (Bld) [#/Vol] 4.62 10*6/uL 4.2-5.4 [facility] Work Phone: Blood hemoglobin measurement (mass/volume)on 08-01-2021 Hemoglobin (Bld) [Mass/Vol] 13.4 g/dL 12.0-15.0 [facility] Work Phone: Blood lymphocytes/100 leukoc yteson 08-01-2021 Lymphocytes/100 WBC (Bld) 10.5 % 19-41 [facility] Work Phone: Blood monocytes/100 leukocyt eson 08-01-2021 Monocytes/100 WBC (Bld) 7.2 % 0-10 [facility] Work Phone: Blood platelet mean volumeon 08-01-2021 Platelet mean volume (Bld) [Entitic vol] 11.8 fL 6.2-12.0 [facility] Work Phone: Culture, urineon 08-01-2021 Bacteria identified Cx Nom (U) Presumptive E. coli [facility] Work Phone: Determination of erythrocyte mean corpuscular volume (MCV)on 08-01-2021 MCV (RBC) [Entitic vol] 90.7 fL 81-99 [facility] Work Phone: Hematocrit Auto (Bld) [Volum e fraction]on 08-01-2021 Hematocrit (Bld) [Volume fraction] 41.9 % 37-47 [facility] Work Phone: Laboratory - Chemistry and C hemistry - challengeon 08-01-2021 ALP [Catalytic activity/Vol] 110 U/L 45-117 [facility] Work Phone: ALT [Catalytic activity/Vol] 26 U/L 13-56 [facility] Work Phone: CO2 [Moles/Vol] 26.0 mmol/L 21.0-32.0 [facility] Work Phone: Free T4 [Mass/Vol] 0.98 ng/dL 0.76-1.46 [facility] Work Phone: Globulin (S) [Mass/Vol] 4.5 g/dL 2.2-4.2 [facility] Work Phone: Magnesium [Mass/Vol] 2.3 mg/dL 1.6-2.6 [facility] Work Phone: Urea nitrogen/Creatinine [Mass ratio] 15.6 mg/mg 10-20 [facility] Work Phone: Laboratory - Hematology and Cell countson 08-01-2021 Basophils/100 WBC (Unsp spec) 0.2 % 0-1 [facility] Work Phone: [phone] Erythrocyte distribution width (RBC) [Entitic vol] 45.1 fL 35.1-43.9 [facility] [facility]: [phone] Erythrocyte distribution width (RBC) [Ratio] 13.5 % 11.6-14.6 [facility] Work Phone: [phone] Immature granulocytes/100 WBC (Bld) 0.300 % 0.0-0.9 [facility] Work Phone: [phone] Comment on above: IG% - Immature Granu locytes (promyelocytes, myelocytes and metamyelocytes) > 1% indicates that a LEFT SHIFT is Present. MCH (RBC) [Entitic mass] 29.0 pg 27.0-32.0 [facility] Work Phone: [phone] Neutrophils/100 WBC (Bld) 81.6 % 47-70 [facility] Work Phone: [phone] Nucleated RBC/100 WBC (Bld) [Ratio] 0 % 0-5 [facility] Work Phone: [phone] MCHC Auto (RBC) [Mass/Vol]on 08-01-2021 MCHC (RBC) [Mass/Vol] 32.0 g/dL 32-36 [facility] Work Phone: [phone] No Panel Informationon 08-01 Estimated GFR (MDRD) Amer 86 mL/min >60 [facility] Work Phone: [phone] Comment on above: GFR Calc Estimated GFR (MDRD) Non-Af Amer 71 mL/min >60 [facility] Work Phone: [phone] Comment on above: Non- GFR Calc Ionized Calcium 5.3 mg/dL [facility] Work Phone: [phone] Comment on above: Performed at: [address] [id number] Director: Wilder Araya PhD, Phone: [phone] Parathyroid Hormone (Intact) 28.6 pg/mL 18.4-80.1 [facility] Work Phone: [phone] Thyroid Stimulating Hormone (TSH) 1.49 uIU/mL 0.358-3.74 [facility] Work Phone: Platelets bldon 08-01-2021 Platelets (Bld) [#/Vol] 237 10*3/uL 150-450 [facility] Work Phone: Serum or plasma albumin demetrice urement (mass/volume)on 08-01-2021 Albumin [Mass/Vol] 3.3 g/dL 3.2-5.0 [facility] Work Phone: [phone] Serum or plasma albumin/glob ulin mass ratioon 08-01-2021 Albumin/Globulin [Mass ratio] 0.7 {ratio} 0.9-2.4 [facility] Work Phone: Serum or plasma calcium demetrice urement (mass/volume)on 08-01-2021 Calcium [Mass/Vol] 9.2 mg/dL 8.5-10.1 [facility] Work Phone: Serum or plasma cholesterol in HDL measurement (mass/volume)on 08-01-2021 Cholesterol in HDL [Mass/Vol] 66 mg/dL [facility] Work Phone: Comment on above: The drugs N-Acetylcy steine and Metamizole may falsely depress this assay. Reference Range HDL <40 mg/dL Low HDL Cholesterol HDL >or= 60 mg/dL High HDL Cholesterol Serum or plasma cholesterol in VLDL measurement (mass/volume)on 08-01-2021 Cholesterol in VLDL [Mass/Vol] 12 mg/dL 5-40 [facility] Work Phone: [phone] Serum or plasma creatinine m easurement (mass/volume)on 08-01-2021 Creatinine [Mass/Vol] 0.84 mg/dL 0.55-1.02 [facility] Work Phone: Comment on above: The validity of the calculated GFR & GFRAA in patients over 70 years has not been determined. Clinical correlation is essential. Serum or plasma low density lipoprotein (LDL) cholesterol measurement (mass/volume)on 08-01-2021 Cholesterol in LDL [Mass/Vol] 246 mg/dL 0-130 [facility] Work Phone: Serum or plasma urea nitroge n measurement (mass/volume)on 08-01-2021 Urea nitrogen [Mass/Vol] 13 mg/dL 7-18 [facility] Work Phone: Thin prep Papanicolaou smear with manual screeningon 08-01-2021 Thin prep Papanicolaou smear with manual screening 22 U/L 15-37 [facility] Work Phone: Thin prep Papanicolaou smear with manual screening 8 5-15 [facility] Work Phone: PROGRESSon 09-15-2017 PROGRESS HNO ID: [id number]: [place] (Rt) Pillo Anglin: (none)Author Type: TechnicianType: Progress NotesFiled: 09/15/2017 2:45 PMNote Text: Radiology Service Progress NotePATIENT NAME: Germania DonisMRN: [id number] OF SERVICE: September 15, 2017TIME: 2:39 PMPATIENT IDENTITY VERIFICATION COMPLETED USING TWO (2) METHODS: Patientconfirmed name verbally and Date of .PATIENT GENDER DATA: Female. status: : NoBreastfeeding status: NO.PATIENT RELEVANT IMPLANT DATA REVIEWED: Not ApplicableRADIOLOGY DEPARTMENT: General X-ray: Exam(s) Completed: Chest X-RayPERIPHERAL IV DATA: Not applicableSIGNED BY: RT ElsaSeptember 15, 2017 2:39 PM [facility] XR CHEST 2V FRONTAL/LATon XR CHEST 2V [...] Date/Time: Sep 15 2017 3:37PDictated by : DELAL MARK MDThis examination was interpreted and the report reviewed and electronically signed by: DELLA MARK MD on Sep 15 2017 3:39PM [id number] Normal [facility] CNOVon 08-30-2017 CNOV Office Visit (UCWSTR) JEWELSGERMANIA Bolivar ([id number]) 1945 FDate Time Provider Department08/30/17 1:15 PM PABLO HENDRICKSON) [facility] During your visit today, we recorded the following information about you: Temperature Pulse Respiration Blood pressure 102.4 degrees 119/minute 20/minute 100/60 Weight 68 kgCara Sariah Hendrickson PA-C 08/30/2017 2:20 PM SignedThis note was created using [employer].Chelsea Disla presents with a cough and chest [...] Visit Diagnosis:Bacterial pneumonia [J15.9]Order(s):XR CHEST 2V FRONTAL/LAT [[id number]] Order #: [id number] FUTURE ibuprofen (MOTRIN) 800 mg tabletTake 1 [...] by PABLO HENDRICKSON PA-C on 08/30/17 Normal [facility] PROGRESSon 08-30-2017 PROGRESS HNO ID: [id number]: Sary Moon RtService: (none)Author Type: (none)Type: Progress NotesFiled: 08/30/2017 1:57 PMNote Text: Radiology Service Progress NotePATIENT NAME: Germania DonisMRN: [id number] OF SERVICE: August 30, 2017TIME: 1:46 PMPATIENT IDENTITY VERIFICATION COMPLETED USING TWO (2) METHODS: Patientconfirmed name verbally and Date of .PATIENT GENDER DATA: Female. status: : NoBreastfeeding status: NO.PATIENT RELEVANT IMPLANT DATA REVIEWED: Not ApplicableRADIOLOGY DEPARTMENT: General X-ray: Exam(s) Completed: Chest X-RayPERIPHERAL IV DATA: Not applicableSIGNED BY: Sary Moon RtAugust 30, 2017 1:46 PM [facility] PROGRESS HNO ID: [id number]: Pablo Tiwari) AthyService: (none)Author Type: Physician AssistantType: Progress NotesFiled: 08/30/2017 2:20 PMNote Text:This note was created using [facility].SubjectiveH PIPeneida presents with a cough and chest congestion [...] next few days also.Pablo Hendrickson PA-C [facility] XR CHEST 2V FRONTAL/LATon XR CHEST 2V [...] ENAMORADO MD on Aug 30 2017 2:02PM [id number] [id number] Normal [facility] Vital Signs Date Time Vital Sign Value Performing Clinician Ofelia ham 02-11-2025 10:01-0400 Body weight 61.[address] Sowmya Cabrera MD Work Phone: [facility] 01-30-2025 15:24-0400 Body temperature 98.3 [degF] Dr. Sowmya Cabrera MD Work Phone: [facility] 01-30-2025 15:24-0400 Diastolic blood pressure 57 mm[Hg] Dr. Sowmya Cabrera MD Work Phone: [facility] 01-30-2025 15:24-0400 Heart rate 78 /min Dr. Sowmya Cabrera MD Work Phone: [facility] 01-30-2025 15:24-0400 Respiratory rate 16 /min Dr. Sowmya Cabrera MD Work Phone: [facility] 01-30-2025 15:24-0400 SaO2% (BldA) [Mass fraction] 95 % Dr. Sowmya Cabrera MD Work Phone: [facility] 01-30-2025 15:24-0400 Systolic blood pressure 114 mm[Hg] Dr. Sowmya Cabrera MD Work Phone: [facility] 01-30-2025 11:21-0400 Body height [address] Sowmya Cabrera MD Work Phone: [facility] 01-30-2025 11:21-0400 Body weight 65.[address] Sowmya Cabrera MD Work Phone: [facility] 01-29-2025 03:23-0400 Body mass index (BMI) [Ratio] 26.4 kg/m2 Dr. Sowmya Cabrera MD Work Phone: [facility] 01-29-2025 02:44-0400 Body temperature 98.5 [degF] Dr. Sowmya Cabrera MD Work Phone: [phone])448-568467 [place] [address] 01-29-2025 02:44-0400 Diastolic blood pressure 86 mm[Hg] Dr. Sowmya Cabrera MD Work Phone: [facility] 01-29-2025 02:44-0400 Heart rate 86 /min Dr. Sowmya Cabrera MD Work Phone: [facility] 01-29-2025 02:44-0400 Respiratory rate 16 /min Dr. Sowmya Cabrera MD Work Phone: 4(455)211-714211 [place] [address] 01-29-2025 02:44-0400 SaO2% (BldA) [Mass fraction] 95 % Dr. Sowmay Cabrera MD Work Phone: 9(199)577-247611 [place] [address] 01-29-2025 02:44-0400 Systolic blood pressure 96 mm[Hg] Dr. Sowmya Cabrera MD Work Phone: 4([phone])124-367484 [place] [address] 01-28-2025 23:31-0400 Body mass index (BMI) [Ratio] 26.6 kg/m2 Dr. Sowmya Cabrera MD Work Phone: 2(712)572-976911 [place] [address] 01-28-2025 23:31-0400 Body weight 66.[address] Sowmya Cabrera MD Work Phone: 6(632)708-564684 [place] [address] 01-28-2025 22:00-0400 Body height 157.[address] Sowmya Cabrera MD Work Phone: 4(920)403-608511 [place] [address] 12-20-2024 10:01-0400 Body weight 61.[address] Sowmya Cabrera MD Work Phone: 7(470)726-873611 [place] [address] 12-07-2024 14:49-0400 Body temperature 97.6 [degF] Dr. Sowmya Cabrera MD Work Phone: 8(776)713-612211 [place] [address] 12-07-2024 14:49-0400 Diastolic blood pressure 70 mm[Hg] Dr. Sowmya Cabrera MD Work Phone: 1(591)493-295011 [place] [address] 12-07-2024 14:49-0400 Heart rate 89 /min Dr. Sowmya Cabrera MD Work Phone: [facility] 12-07-2024 14:49-0400 Respiratory rate 18 /min Dr. Sowmya Cabrera MD Work Phone: 0(335)358-428511 [place] [address] 12-07-2024 14:49-0400 SaO2% (BldA) [Mass fraction] 98 % Dr. Sowmya Cabrera MD Work Phone: 2(021)841-949384 [place] [address] 12-07-2024 14:49-0400 Systolic blood pressure 134 mm[Hg] Dr. Sowmya Cabrera MD Work Phone: 1(743)101-500484 [place] [address] 12-05-2024 11:12-0400 Body height 157.[address] Sowmya Cabrera MD Work Phone: 4(377)874-679784 [place] [address] 12-05-2024 11:12-0400 Body weight 65.[address] Sowmya Cabrera MD Work Phone: 9(348)359-657484 [place] [address] 12-05-2024 05:57-0400 Inhaled oxygen flow rate 2 L/min Dr. Sowmya Cabrera MD Work Phone: 9(261)684-806684 [place] [address] 12-04-2024 15:59-0400 Body mass index (BMI) [Ratio] 26.5 kg/m2 Dr. Sowmya Cabrera MD Work Phone: 8(572)184-552284 [place] [address] 12-04-2024 12:19-0400 Body height 157.[address] Sowmya Cabrera MD Work Phone: 7(655)525-591384 [place] [address] 12-04-2024 12:19-0400 Body mass index (BMI) [Ratio] 26.5 kg/m2 Dr. Sowmya Cabrera MD Work Phone: 2(142)824-585484 [place] [address] 12-04-2024 12:19-0400 Body temperature 98 [degF] Dr. Sowmya Cabrera MD Work Phone: 2(358)276-419284 [place] [address] 12-04-2024 12:19-0400 Body weight 65.[address] Sowmya Cabrera MD Work Phone: 6(277)376-179984 [place] [address] 12-04-2024 12:19-0400 Diastolic blood pressure 61 mm[Hg] Dr. Sowmya Cabrera MD Work Phone: [facility] 12-04-2024 12:19-0400 Heart rate 79 /min Dr. Sowmya Cabrera MD Work Phone: [facility] 12-04-2024 12:19-0400 Respiratory rate 14 /min Dr. Sowmya Cabrera MD Work Phone: [facility] 12-04-2024 12:19-0400 SaO2% (BldA) [Mass fraction] 98 % Dr. Sowmya Cabrera MD Work Phone: [facility] 12-04-2024 12:19-0400 Systolic blood pressure 91 mm[Hg] Dr. Sowmya Cabrera MD Work Phone: [facility] 11-04-2024 10:54-0400 Body temperature 97.9 [degF] Dr. Sowmya Cabrera MD Work Phone: [facility] 11-04-2024 10:54-0400 Diastolic blood pressure 52 mm[Hg] Dr. Sowmya Cabrera MD Work Phone: [facility] 11-04-2024 10:54-0400 Heart rate 69 /min Dr. Sowmya Cabrera MD Work Phone: [facility] 11-04-2024 10:54-0400 Respiratory rate 14 /min Dr. Sowmya Cabrera MD Work Phone: [facility] 11-04-2024 10:54-0400 SaO2% (BldA) [Mass fraction] 95 % Dr. Sowmya Cabrera MD Work Phone: [facility] 11-04-2024 10:54-0400 Systolic blood pressure 101 mm[Hg] Dr. Sowmya Cabrera MD Work Phone: [facility] 11-04-2024 06:19-0400 Body height 165.[address] Sowmya Cabrera MD Work Phone: [facility] 11-04-2024 06:19-0400 Body mass index (BMI) [Ratio] 23.5 kg/m2 Dr. Sowmya Cabrera MD Work Phone: [facility] 11-04-2024 06:19-0400 Body weight 64.[address] Sowmya Cabrera MD Work Phone: [facility] 09-27-2024 14:13-0500 Body mass index (BMI) [Ratio] 23.8 kg/m2 Dr. Sowmya Cabrera MD Work Phone: [facility] 09-27-2024 14:13-0500 Body temperature 97.3 [degF] Dr. Sowmya Cabrera MD Work Phone: [facility] 09-27-2024 14:13-0500 Body weight 64.[address] Sowmya Cabrera MD Work Phone: [facility] 09-27-2024 14:13-0500 Diastolic blood pressure 49 mm[Hg] Dr. Sowmya Cabrera MD Work Phone: [facility] 09-27-2024 14:13-0500 Heart rate 87 /min Dr. Sowmya Cabrera MD Work Phone: [facility] 09-27-2024 14:13-0500 Respiratory rate 17 /min Dr. Sowmya Cabrera MD Work Phone: [facility] 09-27-2024 14:13-0500 SaO2% (BldA) [Mass fraction] 94 % Dr. Sowmya Cabrera MD Work Phone: [facility] 09-27-2024 14:13-0500 Systolic blood pressure 80 mm[Hg] Dr. Sowmya Cabrera MD Work Phone: [facility] Encounters Encounter Date Encounter Type Care Provider Facility Start: 02-20-2025 Emergency department patient visit Sowmya Cabrera Facility:[facility] Start: 02-11-2025 End: 02-11-[address] Darrick Light MD -[facility] Work Phone: Start: 02-11-2025 End: 02-11-[address] Sowmya Cabrera MD Work Phone: [facility] Work Phone: Start: 01-30-2025 Non-patient / Non-visit Dr. Darrick Light MD -[facility] Start: 01-29-2025 Non-patient / Non-visit Dr. Darrick Light MD [facility] Start: 01-29-2025 ambulatory Darrick Light Facility: [facility] Start: 01-29-2025 End: 01-30-2025 Evaluation and management of inpatient Dr. Darrick iLght MD -[facility] Work Phone: Start: 12-20-2024 End: 12-20-[address] Darrick Light MD -[facility] Work Phone: Start: 12-20-2024 End: 12-20-2024 ambulatory Darrick Light Facility:[facility] Start: 12-07-2024 Non-patient / Non-visit Eleonora Luna [facility] Start: 12-06-2024 Non-patient / Non-visit Eleonora Luna [facility] Start: 12-05-2024 Non-patient / Non-visit Dr. Darrick Light MD [facility] Start: 12-04-2024 ambulatory Darrick Light Facility: [facility] Start: 12-04-2024 End: 12-07-2024 Evaluation and management of inpatient Dr. Darrick Light MD -[facility] Work Phone: Start: 12-04-2024 [facility] Dr[facility] Darrick Light MD -[facility] Work Phone: Start: 12-04-[address] Mann Cabrera MD Work Phone: [facility] Work Phone: Start: 12-04-2024 Non-patient / Non-visit Dr. Darrick Light MD -[facility] Start: 11-19-2024 End: 11-19-[address] Shelly Leonard MD -[facility] Work Phone: Start: 11-19-2024 End: 11-19-2024 ambulatory Sowmya Cabrera [facility] Start: 11-16-2024 Encounter for other preprocedural examination Shelly Leonard [facility] Start: 11-04-2024 ambulatory Sowmya Cabrera Faci lity:[facility] Start: 11-04-2024 Non-patient / Non-visit Dr. Todd Leonard MD -[facility] Start: 11-04-2024 End: 11-04-2024 Admission to same day surgery center Dr. Shelly Leonard MD -[facility] Start: 11-04-2024 End: 11-04-[address] Sowmya Cabrera MD Work Phone: [facility] Work Phone: Start: 10-04-2024 End: 10-04-[address] Sowmya Cabrera MD -[facility] Work Phone: Start: 10-04-2024 End: 10-04-2024 ambulatory Sowmya Cabrera Facility:[facility] Start: 09-27-2024 End: 09-27-[address] Shelly Loenard MD -[facility] Work Phone: Start: 09-27-2024 End: 09-27-2024 ambulatory Sowmya Cabrera [facility] Start: 08-12-2024 End: 08-12-2024 ambulatory Lex Rhoades Facility:[facility] Start: 08-12-[address] Lex Rhoades MD -Physical Therapy Work Phone: Start: 07-20-2024 End: 07-20-[address] [facility] Start: 07-20-2024 End: 07-20-2024 ambulatory Sowmya Cabrera Facility:[facility] Start: 07-06-2024 End: 07-06-2024 ambulatory Sowmya Cabrera Facility:[facility] Start: 04-19-2024 End: 04-19-2024 ambulatory Sowmya Cabrera Facility:[facility] Start: 10-21-2023 End: 10-21-2023 ambulatory [facility] Work Phone: Start: 10-21-2023 End: 10-21-2023 Patient encounter procedure [facility] Start: 01-24-2023 End: 01-24-2023 ambulatory [facility] Work Phone: Start: 01-24-2023 End: 01-24-2023 Discharged Recurring [facility]-Physical Therapy Start: 01-02-2023 End: 01-02-2023 Patient encounter procedure [facility]-Outpatient Bone Densitometry Start: 12-16-2022 End: 12-16-2022 ambulatory [facility] Work Phone: Start: 12-16-2022 End: 12-16-2022 Patient encounter procedure [facility] Start: 06-24-2022 End: 06-24-2022 ambulatory [facility] Work Phone: Start: 06-24-2022 End: 06-24-2022 Patient encounter procedure [facility] Start: 04-30-2022 End: 04-30-[address] Mann Cabrera Work Phone: [facility] Work Phone: Start: 04-30-2022 End: 04-30-[address] Mann Cabrera Work Phone: [facility] Start: 04-22-2022 End: 04-22-[address] Mann Cabrera Work Phone: [facility] Work Phone: Start: 04-22-2022 End: 04-22-[address] Mann Cabrera [facility] Start: 01-24-2022 Non-patient / Non-visit Dr. Zaynab Cabrera Work Phone: [facility] Start: 01-24-2022 End: 01-24-[address] Mann Cabrera Work Phone: [facility]Cardiovascula r Services Start: 01-04-2022 End: 01-04-2022 Patient encounter procedure [facility]-Laboratory, Specimen Start: 11-23-2021 End: 11-23-2021 [facility] Start[facility] 08-01-2021 [facility] Start: 09-15-2017 End: 09-15-2017 Ambulatory JUANITA COATS [facility] Start: 08-30-2017 End: 08-30-2017 Ambulatory PABLO HENDRICKSON ([place]) [facility] Procedures Date Procedure Procedure Detail Performing Clinician [...] Activity Detail Author Start: 01-30-2025 Patient discharge [facility] Start: 01-29-2025 [facility] Start: 01-29-2025 Application of intermittent pneumatic compression device [facility] Start: 01-29-2025 Serum inorganic phosphate measurement [facility] Start: 01-29-2025 Following clinical pathway protocol [facility] Start: 01-29-2025 Plain X-ray abdomen Abd Decub and/or Erect(Portabl [facility] Start: 01-29-2025 XR Abdomen Views [facility] Start: 01-29-2025 Insertion of nasogastric tube [facility] Start: 01-29-2025 Aspiration precautions [facility] Start: 01-29-2025 Admission procedure [facility] Start: 01-29-2025 Hospital admission, emergency, from emergency room, medical nature [facility] Start: 01-29-2025 Elevation of head of bed [facility] Start: 12-07-2024 Patient discharge [facility] Start: 12-05-2024 Ambulation therapy management [facility] Start: 12-05-2024 Oxygen therapy [facility] Start: 12-04-2024 Application of intermittent pneumatic compression device [facility] Start: 12-04-2024 Following clinical pathway protocol [facility] Start: 12-04-2024 Application of ice collar, cap or bag [facility] Start: 12-04-2024 Admission procedure [facility] Start: 12-04-2024 Laparoscopy Diagnostic Laparoscopy (Not Applicable) [facility] Start: 12-04-2024 Hospital admission, emergency, from emergency room, medical nature [facility] Start: 11-04-2024 Anesthesia hernia repair lower abdomen nos ANESTH REPAIR OF HERNIA [facility] Start: 11-04-2024 RPR AA HRN 1ST < 3 CM RDC RPR AA HRN 1ST < 3 CM RDC [facility] Start: 11-04-2024 Patient discharge [facility] Start: 10-21-2024 Electrocardiographic procedure [facility] Anion gap in Serum or Plasma [facility] BUN/Creatinine ratio [facility] Calcium [Mass/volume ] in Serum or Plasma [facility] Carbon dioxide, tota l [Moles/volume] in Central venous blood [facility] Creatinine [Mass/vol ume] in Serum or Plasma [facility] Erythrocyte mean cor puscular volume determination [facility] Glucose [Mass/volume ] in Serum or Plasma [facility] Hematocrit [Volume F raction] of Blood [facility] Hemoglobin [Mass/vol ume] in Blood [facility] Leukocytes [#/volume] in Blood [facility] Magnesium measurement [facility] Mean corpuscular hem oglobin concentration determination [facility] Mean corpuscular hem oglobin determination [facility] Measurement of renal function [facility] Neutrophil count [facility] Neutrophil percent differential count [facility] Patient referral [facility] Work Phone: Platelets [#/volume] in Blood [facility] Potassium measurement [facility] Red blood cell count [facility] Red cell distributio n width determination [facility] Serum chloride measurement [facility] Sodium measurement [facility] Urea nitrogen [Mass/ volume] in Serum or Plasma [facility] Immunizations Immunization Date Immunization Notes Care Provider Fa [facility] 12-22-2023 Pneumococcal Vaccine PCV20 (Prevnar 20) Dr. Sowmya Cabrera MD Work Phone: [facility] 06-24-2023 influenza, injectabl e, quadrivalent, preservative free Dr. Sowmya Cabrera MD Work Phone: [facility] 05-30-[address] Sowmya Cabrera MD Work Phone: [facility] 12-16-[address] Sowmya Cabrera MD Work Phone: [facility] 11-27-2021 Covid (Pfizer) Dr. Markos Cabrera MD Work Phone: [facility] 09-12-2021 Covid (Pfizer) Dr. Markos Cabrera MD Work Phone: [facility] 08-01-2021 influenza, injectabl e, quadrivalent, preservative free Dr. Sowmya Cabrera MD Work Phone: [facility] 07-25-2020 influenza, injectabl e, quadrivalent, preservative free Dr. Sowmya Cabrera MD Work Phone: [facility] 08-13-2016 pneumococcal conjuga te vaccine, [address] Sowmya Cabrera MD Work Phone: [facility] 11-02-2014 tetanus toxoid, redu sabrina diphtheria toxoid, and acellular pertussis vaccine, adsorbed Dr. Sowmya Cabrera MD Work Phone: [facility] 07-05-2014 influenza, injectabl e, quadrivalent, preservative free Dr. Sowmya Cabrera MD Work Phone: [facility] 05-13-2013 influenza, injectabl e, quadrivalent, preservative free Dr. Sowmya Cabrera MD Work Phone: [facility] 05-13-2013 pneumococcal polysaccharide vaccine, [address] Sowmya Cabrera MD Work Phone: [facility] Payers Date Payer Category Payer Self-pay [id number] 2021 Unknown [id number] 2016 Unknown [id number] 2012 Medicare [id number] Unknown [id number] 40.1.449191.3.579.2.462 Unknown [id number] 2.16.8 40.1.269093.3.579.2.462 Unknown [id number] 2.16.8 40.1.631003.3.579.2.462 Unknown [id number] 2.16.8 40.1.767546.3.579.2.462 Unknown [id number] 2.16.8 40.1.841451.3.579.2.462 Unknown [id number] 2.16.8 40.1.040125.3.579.2.462 Unknown [id number] 2.16.8 40.1.563692.3.579.2.462 Unknown [id number] 2.16.8 40.1.339812.3.579.2.462 Unknown [id number] 2.16.8 40.1.496094.3.579.2.462 Unknown [id number] 2.16.8 40.1.432797.3.579.2.462 Unknown [id number] 2.16.8 40.1.780449.3.579.2.462 Unknown [id number] 2.16.8 40.1.938561.3.579.2.462 Unknown [id number] 2.16.8 40.1.028572.3.579.2.462 Unknown [id number] 2.16.8 40.1.531718.3.579.2.462 Unknown [id number] 2.16.8 40.1.506250.3.579.2.462 Unknown [id number] 2.16.8 40.1.705489.3.579.2.462 Unknown [id number] 2.16.8 40.1.677767.3.579.2.462 Unknown [id number] 2.16.8 40.1.175030.3.579.2.462 Unknown [id number] 2.16.8 40.1.148126.3.579.2.462 Unknown [id number] 2.16.8 40.1.835138.3.579.2.462 Social History Date Type Detail Facility Tobacco smoking status NHIS Unknown if ever smoked [facility] Work Phone: Start: 1945 Sex Assigned At Female [facility] Start: 10-21-2024 End: 01-29-2025 Tobacco smoking status NHIS Never smoked tobacco (finding) [facility] Start: 11-04-2024 End: 12-07-2024 Sex Female (finding) [facility] NEGATED: Highlighted row Not [facility] Medical Equipment Procedure Code Equipment Code Equipment [...] Laparoscopy, diagnostic Surgical staple loading unit, cutting [id number] FDA Start: 12-04-2024 Laparoscopy, diagnostic Open-surgery manual linear cutting stapler, single-use ()[id number] FDA Start: 12-04-2024 Goals Date Patient Goal Desired Activity /State Functional Status Date Assessment Result Facility 01-30-2025 Functional status Ambulates [facility] Work Phone: 12-07-2024 Functional status Dangle Feet [facility] Work Phone: Mental Status Date Assessment Result Facility 01-30-2025 Cognitive function Voice/Name [facility] Work Phone: 12-07-2024 Cognitive function Voice/Name [facility] Work Phone: 11-04-2024 Cognitive function Voice/Name;Touch/Shaki ng [facility] Work Phone: Clinical Notes 01-24-2023 to 01-30-2025 Note Date & Type Note Facility 01-30-2025 Discharge summary [facility] 01-30-2025 Discharge summary [facility] 01-30-2025 Discharge summary Note Date/Time January 30, 2025 5:00pm [facility] Medical Records Department [address] [place] [address] Discharge Summary 01/30/25 1204 MR#: [id number] Acct: [id number] Name: GERMANIA DONIS Rep #:[id number] : 1945 79 From: Darrick Lara PCP: Dr. Sowmya Cabrera MD Status :ADM IN Location: [facility] SF356-5 Providers Date of Admission: 01/29/25 Primary Care [...] later today provide patient tolerates transitional diet. Drarick Light MD General Surgery Endocrine Surgery Pager: [facility] [address] [place] [address], [address] [place] [address] Office: [phone] Medications at Discharge Home Medications alendronate 35 mg tablet 35 mg PO QWEEK 09/27/24 atorvastatin 80 mg tablet 80 mg PO DAILY 09/27/24 baclofen 10 mg tablet 10 mg PO DAILY 09/27/24 calcium carbonate 500 mg PO DAILY 09/27/24 levothyroxine 100 mcg capsule 100 mcg PO DAILY 09/27/24 gzczrtnu-hjylrbxu-lxnpj acid 240 mcg-vit K1 150 mcg-herb 357 tablet (Alive Women's 50 Plus Ultra Multivitamin) 1 tab PO DAILY 09/27/24 vitamins A,C,T-blkj-erbwxk 4,296 mcg-226 mg-90 mg capsule (PreserVision AREDS) [...] 3 hours post Gastrografin administration. Reading Location: [id number]-[id number]-WB D/C Instructions DC O2, CPAP, BIPAP Needs [...] Self Care Charges/Coding Visit Charges Inpatient E&M: 85750 Disch Hosp 01/30/25 1700 <Electronically signed by Darrick Light MD> [facility] Signature (if applicable): CC: Dr. Sowmya Cabrera MD; Dr. Darrick Light MD~ Signed [facility] Work Phone: 1(450) 763-370106-08-2025 Progress note Author Darrick Light [facility] Note Date/Time January 30, 2025 12:02 pm [facility] Medical Records Department [address] [place] [address] Progress Note - Surgery 01/30/25 0859 MR#: [id number] Acct: [id number] Name: GERMANIA DONIS #:[id number] : 1945 79 From: Darrick Lara PCP: Dr. Sowmya Cabrera MD Status :ADM IN Location: [facility]3 PJ658-2 Subjective Subjective Patient seen and examined during [...] 3 hours post Gastrografin administration. Reading Location: [facility] Physical Exam Const oriented x3 and no [...] Light MD General Surgery Endocrine Surgery Pager: [facility] [address] [place] [address], [facility], [address] [place] [address] Office: [phone] Charges/Coding Visit Charges Inpatient E&M: 52324 Subs Hosp L2 01/30/25 1202 <Electronically signed by Darrick Light MD> Cosigner Signature (if applicable): CC: ~ Signed [facility] Work Phone: 1(205) 579-482206-08-2025 [facility] Medical Records Department [address] [place] [address] Discharge Summary 01/30/25 1204 MR#: [id number] Acct: [id number] Name: GERMANIA DONIS Rep #: [id number] : 1945 79 From: Darrick Light MD PCP: Dr. Sowmya Cabrera MD Status:ADM IN Location: [place] [address] Providers Date of Admission: 01/29/25 Primary Care [...] Light MD General Surgery Endocrine Surgery Pager: [facility] [address] [place] [address], Outpatient [place], [address] [place] [id number] Office: [phone] Medications at Discharge Home Medications alendronate 35 mg tablet 35 mg PO QWEEK 09/27/24 atorvastatin 80 mg tablet 80 mg PO DAILY 09/27/24 baclofen 10 mg tablet 10 mg PO DAILY 09/27/24 calcium carbonate 500 mg PO DAILY 09/27/24 levothyroxine 100 mcg capsule 100 mcg PO DAILY 09/27/24 neohyfvb-hzaoyjtm-xzwll acid 240 mcg-vit K1 150 mcg-herb 357 tablet (Alive Women's 50 Plus Ultra Multivitamin) 1 tab PO DAILY 09/27/24 vitamins A,C,E-wfid-mqgsho 4,296 mcg-226 mg-90 mg capsule (PreserVision AREDS) [...] 3 hours post Gastrografin administration. Reading Location: [id number]-[id number]-TB D/C Instructions DC O2, CPAP, BIPAP Needs Home O2 Discharge instructions: No Meaningful Use Info (more content not included)...[facility]06-08-2025 Progress note [facility] Medical Records Department [address] [place] [address] Progress Note - Surgery 01/30/2559 MR#: [id number] Acct: [id number] Name: GERMANIA DONIS Rep #:[id number] : 1945 79 From: Darrick Lara PCP: Dr. Sowmya Cabrera MD Status :ADM IN Location: [facility] DX823-7 Subjective Subjective Patient seen and examined during [...] 3 hours post Gastrografin administration. Reading Location: ZSK-OSIGILVU-ZX Physical Exam Const oriented x3 and no [...] Light MD General Surgery Endocrine Surgery Pager: [facility] [address] [place] [address], [facility], [address] [place] [address] Office: [phone] Charges/Coding Visit Charges Inpatient E&M: 14949 Subs Hosp L2 01/30/25 1202 Cosigner Signature (if applicable): CC: ~ Signed [facility]06-07-2025 Radiology Diagnostic study note [facility] Services [address] [place] [id number] Small Bowel Series Only MR#: [id number] Acct: [id number] Name: GERMANIA DONIS Rep #: [id number] : 1945 F 79 From: Lorena Stevens MD PCP: Dr. Sowmya Cabrera MD Status: ADM IN Study:Small Bowel Series Only Date of Exam: 01/29/25 Exam# [id number] Ordering Dr: Aysha Light MD PROCEDURE: SMALL [...] 3 hours post Gastrografin administration. Reading Location: [facility] CC: Dr. Sowmya Cabrera MD; Dr. Darrick Light MD ~ Water [employer] Loom Fixer: Signed [facility]06-07-2025 History and physical note Author Darrick Light [facility] Note Date/Time January 29, 2025 11:00 am [facility] Medical Records Department [address] [place] [address] History & Physical Exam 01/29/25 1031 MR#: [id number] Acct: [id number] Name: GERMANIA DONIS Rep #:[id number] : 1945 79 From: Darrick Lara PCP: Dr. Sowmya Cabrera MD Status :ADM IN Location: [facility]3 KB756-0 HPI - General General Date of Admission: 01/29/25 Chief Complaint: ab pain + n/V HPI Narrative GERMANIA DONIS, is a 79 F who presented to [facility] with complaints of progressive acute onset mid [...] suspicion for this being secondary to adhesions. [facility] Medical History Umbilical hernia Wears glasses Wears [...] 100 mcg PO DAILY 5 12/03/24 History puptfsqg-gtubeswe-omvdx acid 240 1 tab PO DAILY 12/03/24 History mcg-vit K1 150 mcg-herb 357 tablet (Alive Women's 50 Plus Ultra Multivitamin) vitamins A,C,U-uons-nptflm 4,296 1 cap PO BID 09/27/24 12/03/24 [...] (Auto) 72.8 H, Lymph % (Auto) 17.9 L,Clinch % (Auto) 7.7, Eos % (Auto) 1.0, [...] (Auto) 70.5 H, Lymph % (Auto) 20.4, Clinch % (Auto) 7.7, Eos % (Auto) 0.8, [...] adhesions. Trace pelvic ascites. Reading Location: [facility] Abdomen X-Ray 01/29/25 02:30 IMPRESSION: 1. Appropriate positioning of the enteric tube. 2. There are few prominent loops of small bowel containing air-fluid level, in keeping with recent CT findings of small-bowel obstruction. Reading Location: [facility] Ab[facility] 01/29/25 07:35 IMPRESSION: See above [...] Light MD General Surgery Endocrine Surgery Pager: [facility] [address] [place] [address], [facility], [address] [place] [address] Office: [phone] Charges/Coding Visit Charges Inpatient E&M: 26249 Init Hosp L2 01/29/25 1100 <Electronically signed by Darrick Light MD> Cosigner Signature (if applicable): CC: Dr. Sowmya Cabrera MD; Dr. Darrick Light MD~ Signed [facility] Work Phone: 1(278) 134-700206-07-2025 History and physical note [facility] Medical Records Department [address] [place] [address] History & Physical Exam 01/29/25 1031 MR#: [id number] Acct: [id number] Name: GERMANIA DONIS Rep #:[id number] : 1945 79 From: Darrick Lara PCP: Dr. Sowmya Cabrera MD Status :ADM IN Location: [facility] PS590-8 [facility] - General General Date of Admission: 01/29/25 Chief Complaint: ab pain + n/V HPI Narrative GERMANIA DONIS, is a 79 F who presented to [facility] with complaints of progressive acute onset mid [...] suspicion for this being secondary to adhesions. [facility] Medical History Umbilical hernia Wears glasses Wears [...] 100 mcg PO DAILY 5 12/03/24 History qqkbpzvy-zsxfektq-ecptf acid 240 1 tab PO DAILY 12/03/24 History mcg-vit K1 150 mcg-herb 357 tablet (Alive Women's 50 Plus Ultra Multivitamin) vitamins A,C,A-infe-dyhpsd 4,296 1 cap PO BID 09/27/24 12/03/24 [...] (Auto) 72.8 H, Lymph % (Auto) 17.9 L,Clinch % (Auto) 7.7, Eos % (Auto) 1.0, [...] (Auto) 70.5 H, Lymph % (Auto) 20.4, Clinch % (Auto) 7.7, Eos % (Auto) 0.8, [...] adhesions. Trace pelvic ascites. Reading Location: [facility] Abdomen X-Ray 01/29/25 02:30 IMPRESSION: 1. Appropriate positioning of the enteric tube. 2. There are few prominent loops of small bowel containing air-fluid level, in keeping with recent CT findings of small-bowel obstruction. Reading Location: [facility] Ab[facility] 01/29/25 07:35 IMPRESSION: See above [...] Light MD General Surgery Endocrine Surgery Pager: [facility] [address] [place] [address], [address] [place] [address] Office: [phone] Charges/Coding Visit Charges Inpatient E&M: 37446 Init Hosp L2 01/29/25 1100 Cosigner Signature (if applicable): CC: Dr. Sowmya Cabrera MD; Dr. Darrick Light MD~ Signed [facility]06-07-2025 [facility] Medical Records Department [address] [place] [address] History Physical Exam 01/29/25 1031 MR#: [id number] Acct: [id number] Name: GERMANIA DONIS Rep #: [id number] : 1945 79 From: Darrick Light MD PCP: Dr. Sowmya Cabrera MD Status:ADM IN Location: [facility] AU740-8 HPI - General General Date of Admission: 01/29/25 Chief Complaint: ab pain + n/V HPI Narrative GERMANIA DONIS, is a 79 F who presented to [facility] with complaints of progressive acute onset mid [...] suspicion for this being secondary to adhesions. [facility] Medical History Umbilical hernia Wears glasses Wears [...] 100 mcg PO DAILY 09/27/24 12/03/24 History uokkrkyc-ssgosuwc-faedr acid 240 1 tab PO DAILY 09/27/24 12/03/24 H istory mcg-vit K1 150 mcg-herb 357 tablet (Alive Women's 50 Plus Ultra Multivitamin) vitamins A,C,Y-kpjk-tzqjhl 4,296 1 cap PO BID 09/27/24 12/03/24 [...] 96/86 H 134/60 H (more content not included)...[facility]06-07-2025 Radiology Diagnostic study note [facility] Imaging Services [address] [place], [place] [address] Abd Decub and/or Erect(Portabl MR#: [id number] Acct: [id number] Name: GERMANIA DONIS Rep #: [id number] : 1945 F 79 From: Shaniqua Winston MD PCP: Dr. Sowmya Cabrera MD Status: ADM IN Study:Abd Decub and/or Erect(Portabl Date of Exam: 01/29/25 Exam# [id number] Ordering Dr: Aysha Light MD PROCEDURE: ABD [...] and/or Erect(Portabl IMPRESSION: See above Reading Location: [facility] CC: Dr. Sowmya Cabrera MD; Dr. Darrick Light MD ~ Water [employer] Loom Fixer: Signed [facility]06-07-2025 Discharge summary Author Selvin Naranjo [facility] Note Date/Time January 29, 2025 2:59a m [facility] Medical Records Department [address] [place] [address] Emergency Department Summary 01/28/25 MR#: [id number] Acct: [id number] Name: GERMANIA DONIS Rep #:[id number] : 1945 79 From: Selvin Naranjo MD PCP: Dr. Sowmya Cabrera MD Status :ADM IN Location: [facility] GW911-2 HPI HPI - GI History of Present [...] of. No definite associationwith meals here recently. [facility] Medical History Umbilical hernia Wears [...] 100 mcg PO DAILY 5 12/03/24 History ecacprry-zupeqttg-ejxed acid 240 1 tab PO DAILY 12/03/24 History mcg-vit K1 150 mcg-herb 357 tablet (Alive Women's 50 Plus Ultra Multivitamin) vitamins A,C,X-sgak-eposhl 4,296 1 cap PO BID 09/27/24 12/03/24 [...] 72.8 H Lymph % (Auto) 17.9 L Clinch % (Auto) 7.7 Eos % (Auto) 1.0 [...] Location: [facility] Management Discussion w/another healthcare provider: Religious Education Teacher (Michelle Light) Discharge Plan Dx/Rx/DC Orders Clinical Impression: Complete obstruction of small intestine Disposition Disposition: Acute Care Hospital [facility] What to do if you have Problems For any increased pain, shortness of breath, bleeding, nausea or vomiting, chestpain, or any unexpected problems, contact your Primary Care Provider. Call [facility] ([phone]) or report to the closest Emergency Room. Call 911 if necessary. 01/29/25 0259 <Electronically signed by Selvin Naranjo MD> Cosigner Signature (if applicable): CC: Dr. Sowmya Cabrera MD ~ Signed [facility] Work Phone: 1(186) 542-617406-07-2025 Radiology Diagnostic study note [facility] Imaging Services [address] [place] [address] Abd Decub and/or Erect(Portabl MR#: [id number] Acct: [id number] Name: GERMANIA DONIS Rep #: [id number] : 1945 F 79 From: Emily Bolaños MD PCP: Dr. Sowmya Cabrera MD Status: ADM IN Study:Abd Decub and/or Erect(Portabl Date of Exam: 01/29/25 Exam# [id number] Ordering Dr: Aysha Light MD PROCEDURE: ABD [...] CT findings of small-bowel obstruction. Reading Location: [facility] CC: Dr. Sowmya Cabrera MD; Dr. Darrick Light MD ~ Water Jet Loom Fixer: Signed [facility]06-07-2025 Discharge summary [facility] Medical Records Department [address] [place] [address] Emergency Department Summary 01/28/25 MR#: [id number] Acct: [id number] Name: GERMANIA DONIS Rep #:[id number] : 1945 79 From: Selvin Naranjo MD PCP: Dr. Sowmya Cabrera MD Status :ADM IN Location: [facility] NR471-5 HPI HPI - GI History of Present [...] of. No definite associationwith meals here recently. [facility] Medical History Umbilical hernia Wears [...] 100 mcg PO DAILY 5 12/03/24 History ztvnzfjm-lnfmjpoh-puued acid 240 1 tab PO DAILY 12/03/24 History mcg-vit K1 150 mcg-herb 357 tablet (Alive Women's 50 Plus Ultra Multivitamin) vitamins A,C,Y-zcce-qrggkr 4,296 1 cap PO BID 09/27/24 12/03/24 [...] 72.8 H Lymph % (Auto) 17.9 L Clinch % (Auto) 7.7 Eos % (Auto) 1.0 [...] Location: [facility] Management Discussion w/another healthcare provider: Religious Education Teacher (Michelle Light) Discharge Plan Dx/Rx/DC Orders Clinical Impression: Complete obstruction of small intestine Disposition Disposition: Acute Care Hospital [facility] What to do if you have Problems For any increased pain, shortness of breath, bleeding, nausea or vomiting, chestpain, or any unexpected problems, contact your Primary Care Provider. Call [facility] ([phone]) or report tothe closest Emergency Room. Call 911 if necessary. 01/29/25 0259 Cosigner Signature (if applicable): CC: Dr. Sowmya Cabrera MD ~ Signed [facility]06-06-2025 Radiology Diagnostic study note [facility] Imaging Services [address] [place], [place] [address] Abdomen/Pelvis W IV Cont ONLY MR#: [id number] Acct: [id number] Name: GERMANIA DONIS Rep #: [id number] : 1945 F 79 From: Timothy Moreau DO PCP: Dr. Sowmya Cabrera MD Status: REG ER Study:Abdomen/Pelvis W IV Cont ONLY Date of E xam: 01/28/25 Exam# [id number] Ordering Dr: Jose F Naranjo MD PROCEDURE: [...] Naranjo MD; Dr. Sowmya Cabrera MD ~ Water Jet Loom Fixer: Signed [facility]06-06-2025 Discharge summary Author Selvin Naranjo [facility] Note Date/Time January 29, 2025 2:59a m [facility] Medical Records Department [address] [place] [address] Emergency Department Summary 01/28/25 MR#: [id number] Acct: [id number] Name: GERMANIA DONIS Rep #:[id number] : 1945 79 From: Selvin Naranjo MD PCP: Dr. Sowmya Cabrera MD Status :ADM IN Location: [facility] CM328-8 HPI HPI - GI History of Present [...] of. No definite associationwith meals here recently. [facility] Medical History Umbilical hernia Wears [...] 100 mcg PO DAILY 5 12/03/24 History awphocis-ztpltmff-gwuow acid 240 1 tab PO DAILY 12/03/24 History mcg-vit K1 150 mcg-herb 357 tablet (Alive Women's 50 Plus Ultra Multivitamin) vitamins A,C,M-aulr-vlcgxr 4,296 1 cap PO BID 09/27/24 12/03/24 [...] 72.8 H Lymph % (Auto) 17.9 L Clinch % (Auto) 7.7 Eos % (Auto) 1.0 [...] for adhesions. Trace pelvic ascites. Reading Location: [facility] Discussion w/another healthcare provider: Religious Education Teacher (Michelle Light) Discharge Plan Dx/Rx/DC Orders Clinical Impression: Complete obstruction of small intestine Disposition Disposition: Acute Care Hospital [facility] What to do if you have Problems For any increased pain, shortness of breath, bleeding, nausea or vomiting, chestpain, or any unexpected problems, contact your Primary Care Provider. Call [facility] ([phone]) or report to the closest Emergency Room. Call 911 if necessary. 01/29/25 0259 <Electronically signed by Selvin Naranjo MD> Cosigner Signature (if applicable): CC: Dr. Sowmya Cabrera MD ~ Signed [facility] Work Phone: 1(931) 812-983004-15-2025 Discharge summary [facility] Medical Records Department [address] [place] [address] Discharge Summary 12/07/24 1100 MR#: [id number] Acct: [id number] Name: GERMANIA DONIS Rep #:[id number] : 1945 79 From: Eleonora DUONG PA-C PCP: Dr. Sowmya Cabrera MD Status :ADM IN [facility] Prov[facility] Date of Admission: 12/04/24 Primary Care [...] mcg capsule 100 mcg PO DAILY 09/27/24 qdwrkxog-halgnvvp-epcsa acid 240 mcg-vit K1 150 mcg-herb 357 tablet (Alive Women's 50 Plus Ultra Multivitamin) 1 tab PO DAILY 09/27/24 vitamins A,C,G-nhjp-dfukgz 4,296 mcg-226 mg-90 mg capsule (PreserVision AREDS) [...] (Auto) 70.8 H, Lymph % (Auto) 16.5 L,Clinch % (Auto) 8.6, Eos % (Auto) 2.6, [...] to schedule a 2 week follow-up at [phone], option #2 Meaningful Use Info Meaningful Use [...] cereals, and grains Eat: White breads, waffles, Afghan toast, plain white rolls, or white bread [...] types of beans Potatoes with skin Peas [place] Cabbage, broccoli, cauliflower, [place] sprouts, and greens Sauerkraut Onions Fruits and [...] Self Care Charges/Coding Visit Charges Inpatient E&M: 91034 Disch Hosp (post-op; no charge) 12/07/24 1430 Cosigner Signature (if applicable): CC: BOOKER Montaño; Dr. Sowmya Cabrera MD~ Signed [facility]04-15-2025 Discharge summary Author Eleonora Montaño [facility] Note Date/Time December 07, 2024 2:3 0pm [facility] Medical Records Department [address] [place] [address] Discharge Summary 12/07/24 1100 MR#: [id number] Acct: [id number] Name: GERMANIA DONIS Rep #:[id number] : 1945 79 From: Eleonora DUONG PA-C PCP: Dr. Sowmya Cabrera MD Status :ADM IN [facility] Prov[facility] Date of Admission: 12/04/24 Primary Care [...] mcg capsule 100 mcg PO DAILY 09/27/24 ptajqpon-yddixnmj-hzcja acid 240 mcg-vit K1 150 mcg-herb 357 tablet (Alive Women's 50 Plus Ultra Multivitamin) 1 tab PO DAILY 09/27/24 vitamins A,C,H-vedi-uejfqw 4,296 mcg-226 mg-90 mg capsule (PreserVision AREDS) [...] (Auto) 70.8 H, Lymph % (Auto) 16.5 L,Clinch % (Auto) 8.6, Eos % (Auto) 2.6, [...] to schedule a 2 week follow-up at [phone], option #2 Meaningful Use Info Meaningful Use [...] cereals, and grains Eat: White breads, waffles, Afghan toast, plain white rolls, or white bread [...] types of beans Potatoes with skin Peas [place] Cabbage, broccoli, cauliflower, [place] sprouts, and greens Sauerkraut Onions Fruits and [...] Self Care Charges/Coding Visit Charges Inpatient E&M: 63559 Disch Hosp (post-op; no charge) 12/07/24 1430 <Electronically signed by Eleonora DUONG PA-C> Cosigner Signature (if applicable): CC: BOOKER Montaño; Dr. Sowmya Cabrera MD~ Signed [facility] Work Phone: 1(114) 470-543004-15-2025 Progress note Author Eleonora Montaño [facility] Note Date/Time December 07, 2024 9:0 3am [facility] Medical Records Department [address] [place] [address] Progress Note - Surgery 12/07/24 0846 MR#: [id number] Acct: [id number] Name: GERMANIA DONIS Rep #:[id number] : 1945 79 From: Eleonora DUONG PA-C PCP: Dr. Sowmya Cabrera MD Status :ADM IN Location: [facility] EQ186-9 Subjective Subjective Patient evaluated resting comfortably in [...] (Auto) 70.8 H, Lymph % (Auto) 16.5 L,Clinch % (Auto) 8.6, Eos % (Auto) 2.6, [...] later today Charges/Coding Visit Charges Inpatient E&M: 54986 Subs Hosp L1 (no charge; post-op) 12/07/24 0903 <Electronically signed by Eleonora DUONG PA-C> Carriigner Signature (if applicable): CC: ~ Signed [facility] Work Phone: 1(766) 545-967704-15-2025 [facility] Medical Records Department [address] [place] [address] Discharge Summary 12/07/24 1100 MR#: [id number] Acct: [id number] Name: GERMANIA DONIS Rep #: [id number] : 1945 79 From: Eleonora DUONG PA-C PCP: Dr. Sowmya Cabrera MD Status:ADM IN Location: [facility] MG977-0 Providers Date of Admission: 12/04/24 Primary Care [...] mcg capsule 100 mcg PO DAILY 09/27/24 lwokpqse-bdpwtdvf-aaceg acid 240 mcg-vit K1 150 mcg-herb 357 tablet (Alive Women's 50 Plus Ultra Multivitamin) 1 tab PO DAILY 09/27/24 vitamins A,C,I-wkyo-khjmet 4,296 mcg-226 mg-90 mg capsule (PreserVision AREDS) [...] 70.8 H, Lymph % (Auto) 16.5 L, Clinch % (Auto) 8.6, Eos % (Auto) 2.6, [...] to schedule a 2 week follow-up at [phone], option #2 Meaningful Use Info Meaningful Use [...] meet guidelines. HIGH DO (more content not included)...[facility]04-15-2025 Progress note [facility] Medical Records Department [address] [place] [address] Progress Note - Surgery 12/07/24 0846 MR#: [id number] Acct: [id number] Name: GERMANIA DONIS Rep #:[id number] : 1945 79 From: Eleonora DUONG PA-C PCP: Dr. Sowmya Cabrera MD Status :ADM IN Location: [place] VL490-3 Subjective Subjective Patient evaluated resting comfortably in [...] (Auto) 70.8 H, Lymph % (Auto) 16.5 L,Clinch % (Auto) 8.6, Eos % (Auto) 2.6, [...] later today Charges/Coding Visit Charges Inpatient E&M: 39890 Subs Hosp L1 (no charge; post-op) 12/07/24 0903 Cosigner Signature (if applicable): CC: ~ Signed [facility]04-14-2025 Procedure note [facility] Medical Records Department [address] [facility] [place] [address] Operative Report 12/04/24 1434 MR#: [id number] Acct: [id number] Name: GERMANIA DONIS Rep #:[id number] : 1945 79 From: Darrick Lara PCP: Dr. 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 To facilitate a more thorough exploration, [...] quadrant. Using atraumatic graspers and a suction labor law professor device I bluntly teased a perforated small [...] field labeled small bowel. Then a standard ging-cf-pnqk functional end-to-end small bowel anastomosis was created [...] remaining two 5 mm ports. A 15 Afghan round Mauricio drain was fed into the [...] Documentation VTE Mechan Device Prophylaxis: SCD's 12/06/24 1824 Cosigner Signature (if applicable): CC: Dr. Sowmya Cabrera MD; Dr. Darrick Light MD~ Signed [facility]04-14-2025 Progress note Author Eleonora Montaño [facility] Note Date/Time December 06, 2024 9:2 9am [facility] Medical Records Department [address] [place] [address] Progress Note - Surgery 12/06/2438 MR#: [id number] Acct: [id number] Name: GERMANIA DONIS Rep #:[id number] : 1945 79 From: Eleonora DUONG PA-C PCP: Dr. Sowmya Cabrera MD Status :ADM IN Location: [facility] ZF319-6 Subjective Subjective Patient evaluated resting comfortably in [...] (Auto) 78.8 H, Lymph % (Auto) 13.8 L,Clinch % (Auto) 6.4, Eos % (Auto) 0.4, [...] this patient Charges/Coding Visit Charges Inpatient E&M: 51864 Subs Hosp L1 (post-op) 12/06/24928 <Electronically signed by Eleonora DUONG PA-C> Cosigner Signature (if applicable): CC: ~ Signed [facility] Work Phone: 1(685) 948-726804-14-2025 Progress note [facility] Medical Records Department [address] [place] [address] Progress Note - Surgery 12/06/24 0838 MR#: [id number] Acct: [id number] Name: GERMANIA DONIS Rep #:[id number] : 1945 79 From: Eleonora DUONG PA-C PCP: Dr. Sowmya Cabrera MD Status :ADM IN Location: [place] SI290-0 Subjective Subjective Patient evaluated resting comfortably in [...] (Auto) 78.8 H, Lymph % (Auto) 13.8 L,Clinch % (Auto) 6.4, Eos % (Auto) 0.4, [...] this patient Charges/Coding Visit Charges Inpatient E&M: 47799 Subs Hosp L1 (post-op) 12/06/24 0929 Cosigner Signature (if applicable): CC: ~ Signed [facility]04-13-2025 Progress note Author Darrick Light [facility] Note Date/Time December 05, 2024 10: 35am [facility] Medical Records Department [address] [place] [address] Progress Note - Surgery 12/05/24 0821 MR#: [id number] Acct: [id number] Name: GERMANIA DONIS Rep #:[id number] : 1945 79 From: Darrick Lara PCP: Dr. Sowmya Cabrera MD Status :ADM IN Location: [place] [address] Subjective Subjective Patient seen and evaluated during [...] Sl. Cloudy, Urine pH 6.0, Ur Specific [place] 1.010, Urine Protein 15 H, Urine Glucose [...] 87.8 H, Lymph % (Auto) 5.8 L, Clinch % (Auto) 5.7, Eos % (Auto) 0.0, [...] at 10:34 a.m. on 12/04/2024. Reading Location: [facility] Physical Exam Const oriented x3 Resp normal [...] Light MD General Surgery Endocrine Surgery Pager: [facility] [address] [place] [address], [facility], [address] [place] [address] Office: [phone] (2) Pneumoperitoneum: Charges/Coding Visit Charges Inpatient E&M: 99154 Subs Hosp L2 12/05/24 1035 <Electronically signed by Darrick Light MD> Cosigner Signature (if applicable): CC: ~ Signed [facility] Work Phone: 1(700) 208-132604-13-2025 Progress note [facility] Medical Records Department [address] [place] [address] Progress Note - Surgery 12/05/24820 MR#: [id number] Acct: [id number] Name: GERMANIA DONIS Rep #:[id number] : 1945 79 From: Darrick Lara PCP: Dr. Sowmya Cabrera MD Status :ADM IN Location: [place] [address]-1 Subjective Subjective Patient seen and evaluated during [...] Sl. Cloudy, Urine pH 6.0, Ur Specific [place] 1.010, Urine Protein 15 H, Urine Glucose [...] 87.8 H, Lymph % (Auto) 5.8 L, Clinch % (Auto) 5.7, Eos % (Auto) 0.0, [...] at 10:34 a.m. on 12/04/2024. Reading Location: [facility] Physical Exam Const oriented x3 Resp normal [...] Light MD General Surgery Endocrine Surgery Pager: [facility] [address] [place] [address], Outpatient [place], [address] [place] [id number] Office: [phone] (2) Pneumoperitoneum: Charges/Coding Visit Charges Inpatient E&M: 53832 Subs Hosp L2 12/05/24 1035 Cosigner Signature (if applicable): CC: ~ Signed [facility]04-12-2025 Discharge summary Author Pardeep Naranjo [facility] Note Date/Time December 04, 2024 3:2 4pm [facility] Medical Records Department [address] [place] [address] Emergency Department Summary 12/04/24 MR#: [id number] Acct: [id number] Name: GERMANIA DONIS Rep #:[id number] : 1945 79 From: Pardeep Davila PCP: Dr. Sowmya Cabrera MD Status :ADM IN Location: [facility] VK702-1 HPI HPI - GI History of Present [...] followed up and things were progressing normally. [facility] Medical History Umbilical hernia Wears [...] 100 mcg PO QDAY 09/27/24 11/03/24 History qiolaijq-nvrekdoc-wttbd acid 240 1 tab PO DAILY 11/03/24 History mcg-vit K1 150 mcg-herb 357 tablet (Alive Women's 50 Plus Ultra Multivitamin) vitamins A,C,A-rdtm-wikmpk 4,296 1 cap PO BID 09/27/24 11/03/24 [...] 83.2 H Lymph % (Auto) 9.5 L Clinch % (Auto) 6.5 Eos % (Auto) 0.3 [...] Sl. Cloudy Urine pH 6.0 Ur Specific [place] 1.010 Urine Protein 15 H Urine Glucose [...] at 10:34 a.m. on 12/04/2024. Reading Location: [id number] Management Discussion w/another healthcare provider: Religious Education Teacher (Dr Light) and Radiologist Discharge Plan Dx/Rx/DC Orders Clinical Impression: Perforated small intestine, Intra-abdominal abscess, Pneumoperitoneum, Abdominal pain, acute Disposition Disposition: Acute Care Hospital [facility] What to do if you have Problems For any increased pain, shortness of breath, bleeding, nausea or vomiting, chestpain, or any unexpected problems, contact your Primary Care Provider. Call [facility] ([phone]) or report to the closest Emergency Room. Call 911 if necessary. 12/04/24 1524 <Electronically signed by Pardeep Naranjo DO> Cosigner Signature (if applicable): CC: Dr. Sowmya Cabrera MD ~ Signed [facility] Work Phone: 1(191) 847-510804-12-2025 Consult note Author Pardeep Pierre [facility] Note Date/Time December 04, 2024 3:0 0pm [facility] Medical Records Department [address] [place] [address] Anesthesia Postop Eval II 12/04/24 1459 MR#: [id number] Acct: [id number] Name: GERMANIA DONIS Rep #:[id number] : 1945 79 From: Pardeep Lara PCP: Dr. Sowmya Cabrera MD Status :ADM IN Y Race: C Location: [address] Anesthesia Postop Eval I Sum Postop Eval [...] MD Cosigner Signature: Date CC: ~ Signed [facility] Work Phone: 1(714) 732-614404-12-2025 Consult note Author Pardeep [facility] Note Date/Time December 04, 2024 2:5 9pm [facility] Medical Records Department [address] [place] [address] Anesthesia Postop Eval I 12/04/241456 MR#: [id number] Acct: [id number] Name: GERMANIA DONIS Rep #:[id number] : 1945 79 From: Pardeep Lara PCP: Dr. Sowmya Cabrera MD Status :ADM IN Y Race: C Location: [place] [address] Anesthesia: Postop Eval I Current Vital Signs [...] document: Postop Eval 1 completed: Yes 12/04/24 145 <Electronically signed by Pardeep Pierre MD> Date _ Pardeep Pierre MD Cosigner Signature: Date CC: ~ Signed [facility] Work Phone: 1(191) 137-941404-12-2025 Discharge summary [facility] Medical Records Department [address] [place] [address] Emergency Department Summary 12/04/24 MR#: [id number] Acct: [id number] Name: GERMANIA DONIS Rep #:[id number] : 1945 79 From: Pardeep Davila PCP: Dr. Sowmya Cabrera MD Status :ADM IN Location: [place] KK300-0 HPI HPI - GI History of Present [...] followed up and things were progressing normally. [facility] Medical History Umbilical hernia Wears [...] 100 mcg PO QDAY 09/27/24 11/03/24 History aiwoqnkl-agurckoa-wquwn acid 240 1 tab PO DAILY 11/03/24 History mcg-vit K1 150 mcg-herb 357 tablet (Alive Women's 50 Plus Ultra Multivitamin) vitamins A,C,Y-sblf-ybwlvc 4,296 1 cap PO BID 09/27/24 11/03/24 [...] 83.2 H Lymph % (Auto) 9.5 L Clinch % (Auto) 6.5 Eos % (Auto) 0.3 [...] Sl. Cloudy Urine pH 6.0 Ur Specific [place] 1.010 Urine Protein 15 H Urine Glucose [...] at 10:34 a.m. on 12/04/2024. Reading Location: [id number] Management Discussion w/another healthcare provider: Religious Education Teacher (Dr Light) and Radiologist Discharge Plan Dx/Rx/DC Orders Clinical Impression: Perforated small intestine, Intra-abdominal abscess, Pneumoperitoneum, Abdominal pain, acute Disposition Disposition: Acute Care Hospital [facility] What to do if you have Problems For any increased pain, shortness of breath, bleeding, nausea or vomiting, chestpain, or any unexpected problems, contact your Primary Care Provider. Call [email or web address] ([phone]) or report tothe closest Emergency Room. Call 911 if necessary. 12/04/24 1524 Cosigner Signature (if applicable): CC: Dr. Sowmya Cabrera MD ~ Signed [facility]04-12-2025 Consult note [facility] Medical Records Department [address] [place] [address] Anesthesia Postop Eval II 12/04/24 1459 MR#: [id number] Acct: [id number] Name: GERMANIA DONIS Rep #:[id number] : 1945 79 From: Pardeep Lara PCP: Dr. Sowmya Cabrera MD Status :ADM IN Y Race: C Location[place] [facility] MS317 -1 Anesthesia Postop Eval I Sum [...] Pardeep Jain Signature: Date CC: ~ Signed [facility]04-12-2025 Consult note [facility] Medical Records Department [address] [place] [address] Anesthesia Postop Eval I 12/04/241456 MR#: [id number] Acct: [id number] Name: GERMANIA DONIS Rep #:[id number] : 1945 79 From: Pardeep Lara PCP: Dr. Sowmya Cabrera MD Status :ADM IN Y Race: C Location: [place] [address] Anesthesia: Postop Eval I Current Vital Signs [...] Pardeep Jain Signature: Date CC: ~ Signed [facility]04-12-2025 Consult note Author Pardeep Pierre [facility] Note Date/Time December 04, 2024 12: 37pm [facility] Medical Records Department [address] [place] [address] Pre-Anesthesia Evaluation 12/04/24 1205 MR#: [id number] Acct: [id number] Name: GERMANIA DONIS Rep #:[id number] : 1945 79 From: Pardeep Lara PCP: Dr. Sowmya Cabrera MD Status :REG SDC Y Race: C Location: [place] [address] ASA Classification* ASA Classification ASA Classification: 3 [...] Bowl removal Anesthesia History Anesthesia History - soundscriber mechanic: Anesthesia History - soundscriber mechanic Hx Hospitalization No 10/21/24 10:11 Any Problems [...] Any additional information?: No PONV PONV - soundscriber mechanic: PONV - soundscriber mechanic Female HX of Motion Sickness HX of N/V After Surgery Non-Smoker Duration of Surgery greater than 60 minutes Number of Risk Factors PONV Score Any additional information?: No Height & Weight Height & Weight: Anesthesia: Height & Weight Height 5 ft 2 in 12/04/24 07:33 Weight: 65.771 kg 12/04/24 07:33 Body Mass Index (BMI) 26.5 12/04/24 07:33 Respiratory Assessment Respiratory Assessment - soundscriber mechanic: Respiratory Tract Infection Hx - soundscriber mechanic Hx Respiratory Tract Infection No 10/21/24 10:11 STOP Sleep Apnea STOP Sleep Apnea - soundscriber mechanic: STOP Sleep Apnea - soundscriber mechanic Hx Hypertension No 10/21/24 10:11 Hx Sleep [...] Tobacco Use History Tobacco Use History - soundscriber mechanic: Tobacco Use History - soundscriber mechanic Tobacco Use Smoking Status Never smoker 12/04/24 07:55 Hx Tobacco Use No 10/21/24 10:11 Years Smoking Packs Smoked per Day Smoking Cessation Date was within the last 15 years Hx Smoking Cessation Date Hx Smoking Cessation Counseling Hematologic Medial History Hematologic Hx - soundscriber mechanic: 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 Specify any problems Hx of Preganancy in last 3 Months Nurse Filling Out Transfusion & Questions: Date: Time: Patient unable to answer at this time (ie. confused, unrespo /Reproduction History /Reproductive History - soundscriber mechanic: /Reproductive Hx- soundscriber mechanic Hx Now Gestational Age (in weeks): EDC: Hx Hx Para Hx Section SAB No 10/21/24 10:11 PFSH Medical History Umbilical hernia Wears glasses Wears [...] 100 mcg PO DAILY 5 12/03/24 History qlhfniip-duaityta-bvrlv acid 240 1 tab PO DAILY 12/03/24 History mcg-vit K1 150 mcg-herb 357 tablet (Alive Women's 50 Plus Ultra Multivitamin) vitamins A,C,A-zgpv-wxzvyw 4,296 1 cap PO BID 09/27/24 12/03/24 [...] MD Cosign Signature: Date CC: ~ Signed [facility] Work Phone: 1(450) 626-344304-12-2025 History and physical note Author Darrick Light [facility] Note Date/Time December 04, 2024 11: 41am [facility] Medical Records Department [address] [place] [address] History & Physical Exam 12/04/24 1125 MR#: [id number] Acct: [id number] Name: GERMANIA DONIS Rep #:[id number] : 1945 79 From: Darrick Lara PCP: Dr. Sowmya Cabrera MD Status :REG ER Location: ED HPI - General General Date of Admission: 12/04/24 Chief Complaint: Acute onset abdominal pain and anorexia HPI Narrative GERMANIA DONIS, is a 79 F who presents with her to [facility] due to complaints of acute onset [...] tubal ligation procedure approximately 40 years ago. [facility] Medical History Umbilical hernia Wears glasses Wears [...] 100 mcg PO QDAY 09/27/24 11/03/24 History iaybioak-ikbqambc-ucmte acid 240 1 tab PO DAILY 11/03/24 History mcg-vit K1 150 mcg-herb 357 tablet (Alive Women's 50 Plus Ultra Multivitamin) vitamins A,C,K-njjx-swgqok 4,296 1 cap PO BID 09/27/24 11/03/24 [...] 83.2 H, Lymph % (Auto) 9.5 L, Clinch % (Auto) 6.5, Eos % (Auto) 0.3, [...] Sl. Cloudy, Urine pH 6.0, Ur Specific [place] 1.010, Urine Protein 15 H, Urine Glucose [...] at 10:34 a.m. on 12/04/2024. Reading Location: [id number] Assessment & Plan Assessment/Plan (1) Perforated small [...] indicated. [facility] to monitorfor pain control and advancement of the diet. Darrick Light MD General Surgery Endocrine Surgery Pager: [facility] [address] [place] [address], [address] [place] [address] Office: [phone] (2) Pneumoperitoneum: Charges/Coding Visit Charges Inpatient E&M: 19591 Init Hosp L2 12/04/24 1141 <Electronically signed by Darrick Light MD> Cosigner Signature (if applicable): CC: Dr. Sowmya Cabrera MD; Dr. Darrick Light MD~ Signed [facility] Work Phone: 1(405) 176-276004-12-2025 Consult note [facility] Medical Records Department [address] [place] [address] Pre-Anesthesia Evaluation 12/04/24 1205 MR#: [id number] Acct: [id number] Name: GERMANIA DONIS Rep #:[id number] : 1945 79 From: Pardeep Lara PCP: Dr. Sowmya Cabrera MD Status :REG SDC Y Race: C Location: [place] [address] ASA Classification* ASA Classification ASA Classification: 3 [...] Bowl removal Anesthesia History Anesthesia History - soundscriber mechanic: Anesthesia History - soundscriber mechanic Hx Hospitalization No 10/21/24 10:11 Any Problems [...] Any additional information?: No PONV PONV - soundscriber mechanic: PONV - soundscriber mechanic Female HX of Motion Sickness HX of N/V After Surgery Non-Smoker Duration of Surgery greater than 60 minutes Number of Risk Factors PONV Score Any additional information?: No Height & Weight Height & Weight: Anesthesia: Height & Weight Height 5 ft 2 in 12/04/24 07:33 Weight: 65.771 kg 12/04/24 07:33 Body Mass Index (BMI) 26.5 12/04/24 07:33 Respiratory Assessment Respiratory Assessment - soundscriber mechanic: Respiratory Tract Infection Hx - soundscriber mechanic Hx Respiratory Tract Infection No 10/21/24 10:11 STOP Sleep Apnea STOP Sleep Apnea - soundscriber mechanic: STOP Sleep Apnea - soundscriber mechanic Hx Hypertension No 10/21/24 10:11 Hx Sleep [...] Tobacco Use History Tobacco Use History - soundscriber mechanic: Tobacco Use History - soundscriber mechanic Tobacco Use Smoking Status Never smoker 12/04/24 07:55 Hx Tobacco Use No 10/21/24 10:11 Years Smoking Packs Smoked per Day Smoking Cessation Date was within the last 15 years Hx Smoking Cessation Date Hx Smoking Cessation Counseling Hematologic Medial History Hematologic Hx - soundscriber mechanic: 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 Specify any problems Hx of Preganancy in last 3 Months Nurse Filling Out Transfusion & Questions: Date: Time: Patient unable to answer at this time (ie. confused, unrespo /Reproduction History /Reproductive History - soundscriber mechanic: /Reproductive Hx- soundscriber mechanic Hx Now Gestational Age (in weeks): EDC: Hx Hx Para Hx Section SAB No 10/21/24 10:11 [facility] Medical History Umbilical hernia Wears glasses Wears [...] 100 mcg PO DAILY 5 12/03/24 History suebuure-xjlxwpfc-xssed acid 240 1 tab PO DAILY 12/03/24 History mcg-vit K1 150 mcg-herb 357 tablet (Alive Women's 50 Plus Ultra Multivitamin) vitamins A,C,W-hcft-dzjdwn 4,296 1 cap PO BID 09/27/24 12/03/24 [...] MD Cosigner Signature: Date CC: ~ Signed [facility]04-12-2025 History and physical note [facility] Medical Records Department [address] [place] [address] History & Physical Exam 12/04/24 1125 MR#: [id number] Acct: [id number] Name: GERMANIA DONIS Rep #:[id number] : 1945 79 From: Darrick Lara PCP: Dr. Sowmya Cabrera MD Status :REG ER Location: ED HPI - General General Date of Admission: 12/04/24 Chief Complaint: Acute onset abdominal pain and anorexia HPI Narrative GERMANIA DONIS, is a 79 F who presents with her to [facility] due to complaints of acute onset [...] tubal ligation procedure approximately 40 years ago. [facility] Medical History Umbilical hernia Wears glasses Wears [...] 100 mcg PO QDAY 09/27/24 11/03/24 History vkmsspfs-cjdgiohe-bricz acid 240 1 tab PO DAILY 11/03/24 History mcg-vit K1 150 mcg-herb 357 tablet (Alive Women's 50 Plus Ultra Multivitamin) vitamins A,C,D-uluy-suiwsg 4,296 1 cap PO BID 09/27/24 11/03/24 [...] 83.2 H, Lymph % (Auto) 9.5 L, Clinch % (Auto) 6.5, Eos % (Auto) 0.3, [...] Sl. Cloudy, Urine pH 6.0, Ur Specific [place] 1.010, Urine Protein 15 H, Urine Glucose [...] at 10:34 a.m. on 12/04/2024. Reading Location: [id number] Assessment & Plan Assessment/Plan (1) Perforated small [...] as well as all procedures as indicated. [facility] to monitorfor pain control and advancement of the diet. Darrick Light MD General Surgery Endocrine Surgery Pager: [facility] [address] [place] [address], Outpatient [address], [address] [place] [address] Office: [phone] (2) Pneumoperitoneum: Charges/Coding Visit Charges Inpatient E&M: 88248 Init Hosp L2 12/04/24 1141 Cosigner Signature (if applicable): CC: Dr. Sowmya Cabrera MD; Dr. Darrick Light MD~ Signed [facility]04-12-2025 [facility] Medical Records Department [address] [place], [place] [address] History Physical Exam 12/04/24 1125 MR#: [id number] Acct: [id number] Name: GERMANIA DONIS Rep #: [id number] : 1945 79 From: Darrick Light MD PCP: Dr. Sowmya Cabrera MD Status:REG ER Location: ED HPI - General General Date of Admission: 12/04/24 Chief Complaint: Acute onset abdominal pain and anorexia HPI Narrative GERMANIA DONIS, is a 79 F who presents with her to [facility] due to complaints of acute onset [...] tubal ligation procedure approximately 40 years ago. [facility] Medical History Umbilical hernia Wears glasses Wears [...] 100 mcg PO QDAY 09/27/24 11/03/24 History euofdyos-fkzknimq-bpuah acid 240 1 tab PO DAILY 09/27/24 11/03/24 H istory mcg-vit K1 150 mcg-herb 357 tablet (Alive Women's 50 Plus Ultra Multivitamin) vitamins A,C,O-zdwb-cohpkz 4,296 1 cap PO BID 09/27/24 11/03/24 [...] 83.2 H, Lymph % (Auto) 9.5 L, Clinch % (Auto) 6.5, Eos % (Auto) 0.3, [...] Bilirubin 0.59, Direct Biliru (more content not included)...[facility]04-12-2025 Radiology Diagnostic study note [facility] Imaging Services [address] [place] [address] Abdomen/Pelvis WITH Contrast MR#: [id number] Acct: [id number] Name: GERMANIA DONIS Rep #: [id number] : 1945 F 79 From: Lorena Stevens MD PCP: Dr. Sowmya Cabrera MD Status: REG ER Study:Abdomen/Pelvis WITH Contrast Date of Ex am: 12/04/24 Exam# [id number] Ordering Dr: Jane Naranjo DO PROCEDURE: ABDOMEN/PELVIS [...] at 10:34 a.m. on 12/04/2024. Reading Location: [facility] CC: Dr. Sowmya Cabrera MD; Dr. Pardeep Naranjo, DO ~ [employer] Loom Fixer: Signed [facility]03-13-2025 Consult note Author Cyrus Leung [facility] Note Date/Time November 04, 2024 9:4 0am [facility] Medical Records Department [address] [place] [address] Anesthesia Postop Eval I 11/04/24 0833 MR#: [id number] Acct: [id number] Name: GERMANIA DONIS Rep #:[id number] : 1945 79 From: Cyrus davila CRNA PCP: Dr. Sowmya Cabrera MD Status :REG SDC Y Race: C Location: [place] [address] Anesthesia: Postop Eval I Current Vital Signs [...] CRNA Cosigner Signature: Date CC: ~ Signed [facility] Work Phone: 1(822) 363-800903-13-2025 Discharge summary Author Shelly Leonard [facility] Note Date/Time November 04, 2024 8:1 0am [facility] Medical Records Department [address] [place] [address] Instructions for Home/Discharge Instructions 11/04/24 0808 MR#: [id number] Acct: [id number] Name: GERMANIA DONIS Rep #:[id number] : 1945 79 From: Shelly Leonard MD PCP: Dr. Sowmya Cabrera MD Status :REG [facility] Discharge Instructions Diet Discharge Diet: Light diet [...] 2 weeks; after 5 PM and on thend call [phone] with any concerns. Test Results: Test results [...] the other half the bottle. Print Language: Ukrainian Discharge Orders/Prescriptions Prescriptions: New oxycodone 5 mg [...] CC: Dr. Sowmya Cabrera MD ~ Signed [facility] Work Phone: 1(352) 753-661503-13-2025 Consult note [facility] Medical Records Department [address] [place] [address] Anesthesia Postop Eval I 11/04/24 0833 MR#: [id number] Acct: [id number] Name: GERMANIA DONIS Rep #:[id number] : 1945 79 From: Cyrus davila CRNA PCP: Dr. Sowmya Cabrera MD Status :REG [facility] Y Race: C Location: [place] [address] Anesthesia: Postop Eval I Current Vital Signs [...] Eval 1 completed: Yes 11/04/24 0940 ero ANIMAL CARE ATTENDANT> Date _ Cyrus Carriero ANIMAL CARE ATTENDANT Cosigner Signature: Date CC: ~ Signed [facility]03-13-2025 History and physical note [facility] Note Date/Time November 04, 2024 7:1 9am [facility] Medical Records Department [address] [facility] [place] [address] H&P Exam - Surgical 11/04/24 0717 MR#: [id number] Acct: [id number] Name: GERMANIA DONIS Rep #:[id number] : 1945 79 From: Shelly Leonard MD PCP: Dr. Sowmya Cabrera MD Status :REG [facility] Location: [address] HPI - General General Date of [...] it repaired. Patient denies any abdominal surgeries. [facility] Medical History Wears glasses Wears partial dentures [...] 100 mcg PO QDAY 09/27/24 11/03/24 History zaadndua-crkivusd-gedmt acid 240 1 tab PO DAILY 11/03/24 History mcg-vit K1 150 mcg-herb 357 tablet (Alive Women's 50 Plus Ultra Multivitamin) vitamins A,C,J-zvwt-uczztm 4,296 1 cap PO BID 09/27/24 11/03/24 [...] further questions time. Shelly Leonard M.D. Pager: [phone] [facility] [address] [place] [address], [facility], [address] [place] [address] Office: [phone] 11/04/24 0719 <Electronically signed by Shelly Leonard MD> Cosigner Signature (if applicable): CC: Dr. Sowmya Cabrera MD; Dr. Shelly Leonard MD~ Signed [facility] Work Phone: 1(373) 320-216703-13-2025 Consult note Author Man Link [facility] Note Date/Time November 04, 2024 6:4 6am [facility] Medical Records Department [address] [place] [address] Pre-Anesthesia Evaluation 11/04/24 0637 MR#: [id number] Acct: [id number] Name: GERMANIA DONIS Rep #:[id number] : 1945 79 From: Man iLnk MD PCP: Dr. Sowmya Cabrera MD Status :REG SDC Y Race: C Location: [place] [address]- ASA Classification* ASA Classification ASA Classification: 3 [...] poss Mesh Anesthesia History Anesthesia History - soundscriber mechanic: Anesthesia History - soundscriber mechanic Hx Hospitalization No 10/21/24 10:11 Any Problems [...] take am of surgery PONV PONV - soundscriber mechanic: PONV - soundscriber mechanic Female Yes 10/21/24 10:11 HX of Motion [...] 11/04/24 06:19 Respiratory Assessment Respiratory Assessment - soundscriber mechanic: Respiratory Tract Infection Hx - soundscriber mechanic Hx Respiratory Tract Infection No 10/21/24 10:11 STOP Sleep Apnea STOP Sleep Apnea - soundscriber mechanic: STOP Sleep Apnea - soundscriber mechanic Hx Hypertension No 10/21/24 10:11 Hx Sleep [...] Tobacco Use History Tobacco Use History - soundscriber mechanic: Tobacco Use History - soundscriber mechanic Tobacco Use Smoking Status Never smoker 10/21/24 10:11 Hx Tobacco Use No 10/21/24 10:11 Years Smoking Packs Smoked per Day Smoking Cessation Date was within the last 15 years Hx Smoking Cessation Date Hx Smoking Cessation Counseling Hematologic Medial History Hematologic Hx - soundscriber mechanic: 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 Hx of Blood Transfusion No 10/21/24 10:11 [...] confused, unrespo /Reproduction History /Reproductive History - soundscriber mechanic: /Reproductive Hx- soundscriber mechanic Hx Now No 10/21/24 10:11 Gestational Age [...] 19:19 15 mls/hr .Q48H ESTEPHANIE Administration Protocol PFS Medical History Wears glasses Wears partial dentures [...] 100 mcg PO QDAY 09/27/24 11/03/24 History vhhwxgcn-qzqltgbw-ismsx acid 240 1 tab PO DAILY 11/03/24 History mcg-vit K1 150 mcg-herb 357 tablet (Alive Women's 50 Plus Ultra Multivitamin) vitamins A,C,P-vejo-waudjs 4,296 1 cap PO BID 09/27/24 11/03/24 [...] MD Cosigner Signature: Date CC: ~ Signed [facility] Work Phone: 1(970) 345-824403-13-2025 Procedure note [facility] Medical Records Department [address] [place] [address] Operative Report 11/04/24804 MR#: [id number] Acct: [id number] Name: GERMANIA DONIS Rep #:[id number] : 1945 79 From: Shlely Leonard MD PCP: Dr. Sowmya Cabrera MD Status :[facility] Location: [place] [address] Operative Report (Standard) Operative Information Date of Procedure: 11/04/24 Pre-Operative Diagnosis: Umbilical hernia Post-Operative Diagnosis: Same Surgery/Procedure Performed: Umbilical hernia repair with mesh travel coordinator: Yes Architectural Sales Consultant: Timoteo Ruiz Tasks completed by mortgage assistant: Opening & closing Type of Anesthesia: [...] hernia patch 4.3 cm in diameter, Lot [id number] ref [id number] Special Medications: Ancef 2 g IV x [...] suture.The hernia defect was closed with a vgldmb-nw-eqdkf 0 Nurolon. The wound was irrigated with [...] Cabrera MD; Dr. Shelly Leonard MD~ Signed [facility]03-13-2025 Discharge summary [facility] Medical Records Department [address] [place] [address] Instructions for Home/Discharge Instructions 11/04/24 0808 MR#: [id number] Acct: [id number] Name: GERMANIA DONIS Rep #:[id number] : 1945 79 From: Shelly Leonard MD PCP: Dr. Sowmya Cbarera MD Status :REG [facility] Discharge Instructions Diet Discharge Diet: Light diet [...] 2 weeks; after 5 PM and on thes call [phone] with any concerns. Test Results: Test results [...] the other half the bottle. Print Language: Ukrainian Discharge Orders/Prescriptions Prescriptions: New oxycodone 5 mg [...] CC: Dr. Sowmya Cabrera MD ~ Signed [facility]03-13-2025 Evaluation note* Diagnosis Onset Date Resolution Status Admit Date Umbilical hernia resolved November 042024 5:26am S/P umbilical hernia repair, follow-up exam acute November 19, 2024 9:54am Abdominal pain, acute resolved Nov 2:29pm Intra-abdominal abscess resolved A 2024 2:29pm Perforated small intestine resolved December 04, 2024 2:29pm Pneumoperitoneum resolved December 042024 2:29pm S/P small bowel resection acute December 20, 2024 9:56am [facility] Work Phone: 1(116) 749-685003-13-2025 Evaluation note* Diagnosis Onset Date Resolution Status [...] 2024 9:56am Small bowel obstruction acute J [facility] 2024 2:10am [facility] Work Phone: 1(666) 515-975703-13-2025 Evaluation note* Diagnosis Onset Date Resolution Status Admit Date Umbilical hernia resolved November 042024 5:26am S/P umbilical hernia repair, follow-up exam acute November 19, 2024 9:54am Abdominal pain, acute resolved Nov 2:29pm Intra-abdominal abscess resolved A pril 2024 2:29pm Perforated small intestine resolved December 04, 2024 2:29pm Pneumoperitoneum resolved December 042024 2:29pm S/P small bowel resection acute December 20, 2024 9:56am Small bowel obstruction resolved J [facility] 2024 2:10am [facility] Work Phone: 1(678) 946-664303-13-2025 History and physical note [facility] Medical Records Department [address] [place] [address] H&P Exam - Surgical 11/04/24 0717 MR#: [id number] Acct: [id number] Name: GERMANIA DONIS Rep #:[id number] : 1945 79 From: Shelly Leonard MD PCP: Dr. Sowmya Cabrera MD Status :[facility] Location: [place] [address] HPI - General General Date of Service: [...] having it repaired. Patientdenies any abdominal surgeries. [facility] Medical History Wears glasses Wears partial dentures [...] 100 mcg PO QDAY 09/27/24 11/03/24 History haftfweu-ljktfdvx-yechy acid 240 1 tab PO DAILY 11/03/24 History mcg-vit K1 150 mcg-herb 357 tablet (Alive Women's 50 Plus Ultra Multivitamin) vitamins A,C,N-wsas-pnravv 4,296 1 cap PO BID 09/27/24 11/03/24 [...] further questions time. Shelly Leonard M.D. Pager: [phone] [facility] [address] [facility], [address] [place] [address] Office: [phone] 11/04/24 0719 Cosigner Signature (if applicable): CC: Dr. Sowmya Cabrera MD; Dr. Shelly Leonard MD~ Signed [facility]03-13-2025 Consult note [facility] Medical Records Department [address] [place] [id number] Pre-Anesthesia Evaluation 11/04/24 0637 MR#: [id number] Acct: [id number] Name: GERMANIA DONIS Rep #:[id number] : 1945 79 From: Man Link MD PCP: Dr. Sowmya Cabrera MD Status :REG SDC Y Race: C Location: [place] [address] ASA Classification* ASA Classification ASA Classification: 3 [...] poss Mesh Anesthesia History Anesthesia History - soundscriber mechanic: Anesthesia History - soundscriber mechanic Hx Hospitalization No 10/21/24 10:11 Any Problems [...] take am of surgery PONV PONV - soundscriber mechanic: PONV - soundscriber mechanic Female Yes 10/21/24 10:11 HX of Motion [...] 11/04/24 06:19 Respiratory Assessment Respiratory Assessment - soundscriber mechanic: Respiratory Tract Infection Hx - soundscriber mechanic Hx Respiratory Tract Infection No 10/21/24 10:11 STOP Sleep Apnea STOP Sleep Apnea - soundscriber mechanic: STOP Sleep Apnea - soundscriber mechanic Hx Hypertension No 10/21/24 10:11 Hx Sleep [...] Tobacco Use History Tobacco Use History - soundscriber mechanic: Tobacco Use History - soundscriber mechanic Tobacco Use Smoking Status Never smoker 10/21/24 10:11 Hx Tobacco Use No 10/21/24 10:11 Years Smoking Packs Smoked per Day Smoking Cessation Date was within the last 15 years Hx Smoking Cessation Date Hx Smoking Cessation Counseling Hematologic Medial History Hematologic Hx - soundscriber mechanic: 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 Hx of Blood Transfusion No 10/21/24 10:11 [...] confused, unrespo /Reproduction History /Reproductive History - soundscriber mechanic: /Reproductive Hx- soundscriber mechanic Hx Now No 10/21/24 10:11 Gestational Age [...] 100 mcg PO QDAY 09/27/24 11/03/24 History dgyblunk-aseibhqj-vywnc acid 240 1 tab PO DAILY 11/03/24 History mcg-vit K1 150 mcg-herb 357 tablet (Alive Women's 50 Plus Ultra Multivitamin) vitamins A,C,Y-gdlu-bjgjcj 4,296 1 cap PO BID 09/27/24 11/03/24 [...] MD Cosigner Signature: Date CC: ~ Signed [facility]02-03-2025 Evaluation note* Diagnosis Onset Date Resolution Status Admit Date Umbilical hernia acute September 27, 2024 1:58pm Umbilical hernia acute November 042024 5:26am [facility] Work Phone: 1(189) 533-297802-03-2025 Evaluation note* Diagnosis Onset Date Resolution Status Admit Date Umbilical hernia resolved September 27, 2024 1:58pm Umbilical hernia resolved November 042024 5:26am S/P umbilical hernia repair, follow-up exam acute November 19, 2024 9:54am Abdominal pain, acute acute Apr 2024 12:22pm Intra-abdominal abscess acute A pril 2024 12:22pm Perforated small intestine acute December 04, 2024 12:22pm Pneumoperitoneum acute December 042024 12:22pm [facility] Work Phone: 1(326) 715-283602-03-2025 Evaluation note* Diagnosis Onset Date Resolution Status Admit Date Umbilical hernia resolved September 27, 2024 1:58pm Umbilical hernia resolved November 042024 5:26am S/P umbilical hernia repair, follow-up exam acute November 19, 2024 9:54am Abdominal pain, acute acute Nov 2:29pm Intra-abdominal abscess acute A pril 2024 2:29pm Perforated small intestine acute December 04, 2024 2:29pm Pneumoperitoneum acute December 042024 2:29pm [facility] Work Phone: 1(443) 737-615502-03-2025 Evaluation note* Diagnosis Onset Date Resolution Status [...] bowel resection acute December 20, 2024 9:56am [facility] Work Phone: 1(911) 777-154710-02-2024 Consult note Author Man Link [facility] Note Date/Time November 04, 2024 11: 23am [facility] Medical Records Department [address] [facility] [address] Anesthesia Postop Eval II 11/04/24 1122 MR#: [id number] Acct: [id number] Name: GERMANIA DONIS Rep #:[id number] : 1945 79 From: Man Link MD PCP: Dr. Sowmya Cabrera MD Status :DEP [facility] Y Race: C Location: [facility] Anesthesia Postop Eval I Sum Postop Eval Completion status Anesthesia document: Postop Eval 1 completed: Yes Anesthesia Postop Eval I Summary Anesthesia Postop Eval I Summary: Anesthesia Postop Eval I: Assessment Summary Airway patent Yes 11/04/24 09:40 ANIMAL CARE ATTENDANT.ACAR Spontaneous unlabored Yes 11/04/24 09:40 ANIMAL CARE ATTENDANT.ACAR respirations Mental status nausea No 11/04/24 09:40 ANIMAL CARE ATTENDANT.ACAR Vomiting No 11/04/24 09:40 ANIMAL CARE ATTENDANT.ACAR Anesthesia Postop Eval I: Fluid Summary Crystalloid volume administer 1,000 11/04/24 09:40 ANIMAL CARE ATTENDANT.ACAR (ml) Colloids volume administered ( ml) Blood Product volume administered (ml) Total IV fluid infused 1,000 11/04/24 09:40 ANIMAL CARE ATTENDANT.ACAR Anesthesia Postop Eval I: Summary Notes Anesthesia Complication No 11/04/24 09:40 ANIMAL CARE ATTENDANT.ACAR Anesthesia Complication Comment: Post-operative progress note Anesthesia: Postop Eval II Evaluation Mental status: Awake Pain Level: 0 nausea: No Vomiting: No Complications Anesthesia Complication: No 11/04/24 1123 <Electronically signed by Man Link MD> Date _ Man Link MD Cosigner Signature: Date CC: ~ Signed [facility] Work Phone: 1(612) 415-127406-02-2023 Discharge summary Author Sray Mejia [facility] January 24, 2023 9:56am Note Date/Time January 24, 2023 9:56a m [facility] Physical Therapy Health[address] [place] [address] / REHABILITATION SERVICES DISCHARGE SUMMARY MR#: [id number] Acct: [id number] Name: GERMANIA DONIS Rep #: [id number] : 1945 77 From: Sary Mejia PT, Cert. MDT Referring Dr.: Dr. Mann Cabrera MD Statu s: REG RCR Insurance: MEDICARE PART A B [facility] It has been my pleasure to treat [...] please feel free to call me at [phone]. Thank you for the referral of thispatient. Sincerely, Sary Mejia, PT, Cert MDT Balance/Gait/Functional tests - Balance/Special Test Scores Oswestry Low Back Score: 3 <Electronically signed by Sary Mejia PT Cert. T> 01/24/23 0956 CC: Dr. Mann Cabrera MD ~ ALBARO Signed [facility] Work Phone: Consult note [facility] Medical Records Department [address] [place] [address] Anesthesia Postop Eval II 11/04/24 1122 MR#: [id number] Acct: [id number] Name: GERMANIA DONIS Rep #:[id number] : 1945 79 From: Man Link MD PCP: Dr. Sowmya Cabrera MD Status :DEP [facility] Y Race: C Location: [facility] Anesthesia Postop Eval I Sum Postop Eval Completion status Anesthesia document: Postop Eval 1 completed: Yes Anesthesia Postop Eval I Summary Anesthesia Postop Eval I Summary: Anesthesia Postop Eval I: Assessment Summary Airway patent Yes 11/04/24 09:40 ANIMAL CARE ATTENDANT.ACAR Spontaneous unlabored Yes 11/04/24 09:40 ANIMAL CARE ATTENDANT.ACAR respirations Mental status nausea No 11/04/24 09:40 ANIMAL CARE ATTENDANT.ACAR Vomiting No 11/04/24 09:40 ANIMAL CARE ATTENDANT.ACAR Anesthesia Postop Eval I: Fluid Summary Crystalloid volume administer 1,000 11/04/24 09:40 ANIMAL CARE ATTENDANT.ACAR (ml) Colloids volume administered ( ml) Blood Product volume administered (ml) Total IV fluid infused 1,000 11/04/24 09:40 ANIMAL CARE ATTENDANT.ACAR Anesthesia Postop Eval I: Summary Notes Anesthesia Complication No 11/04/24 09:40 ANIMAL CARE ATTENDANT.ACAR Anesthesia Complication Comment: Post-operative progress note Anesthesia: Postop Eval II Evaluation Mental status: Awake Pain Level: 0 nausea: No Vomiting: No Complications Anesthesia Complication: No 11/04/24 1123 > Date _ Man Link MD Cosigner Signature: Date CC: ~ [facility] Darrick Light [facility] Note Date/Time January 30, 2025 4:58p m [facility] Medical Records Department [address] [place] [address] Instructions for Home/Discharge Instructions 01/30/251654 MR#: [id number] Acct: [id number] Name: GERMANIA DONIS Rep #:[id number] : 1945 79 From: Darrick Lara PCP: [...] CC: Dr. Sowmya Cabrera MD ~ Signed [facility] Work Phone: Evaluation noteNo assessment information available [facility] Work Phone: History and physical note Author Darrick Light [facility] Note Date/Time December 04, 2024 11: 41am [facility] Medical Records Department [address] [place] [address] History & Physical Exam 12/04/24 1125 MR#: [id number] Acct: [id number] Name: GERMANIA DONIS Rep #:[id number] : 1945 79 From: Darrick Lara PCP: Dr. Sowmya Cabrera MD Status :REG ER Location: ED HPI - General General Date of Admission: 12/04/24 Chief Complaint: Acute onset abdominal pain and anorexia HPI Narrative GERMANIA DONIS, is a 79 F who presents with her to [facility] due to complaints of acute onset [...] tubal ligation procedure approximately 40 years ago. [facility] Medical History Umbilical hernia Wears glasses Wears [...] 100 mcg PO QDAY 09/27/24 11/03/24 History qmlqxacb-xykhjkyz-hsuwa acid 240 1 tab PO DAILY 11/03/24 History mcg-vit K1 150 mcg-herb 357 tablet (Alive Women's 50 Plus Ultra Multivitamin) vitamins A,C,C-otcn-uqahle 4,296 1 cap PO BID 09/27/24 11/03/24 [...] 83.2 H, Lymph % (Auto) 9.5 L, Clinch % (Auto) 6.5, Eos % (Auto) 0.3, [...] Sl. Cloudy, Urine pH 6.0, Ur Specific [place] 1.010, Urine Protein 15 H, Urine Glucose [...] at 10:34 a.m. on 12/04/2024. Reading Location: [id number] Assessment & Plan Assessment/Plan (1) Perforated small [...] indicated. She will be admitted to the Medr floor postoperatively to monitorfor pain control and advancement of the diet. Darrick Light MD General Surgery Endocrine Surgery Pager: [facility] [address] [place] [address], [address] [place] [address] Office: [phone] (2) Pneumoperitoneum: Charges/Coding Visit Charges Inpatient E&M: 78940 Init Hosp L2 12/04/24 1141 <Electronically signed by Darrick Light MD> Cosigner Signature (if applicable): CC: Dr. Sowmya Cabrera MD; Dr. Darrick Light MD~ Signed [facility] Work Phone: Reason for referral (narrative)No reason for referral information [facility]WGood [facility] Work Phone: Summary Purpose Family History No Family History Records Found Relationship Condition Age at Onset Recorded Date/T josey sister Diabetes mellitus Unknown Advance Directives No Advanced Directives Records Found Advance Directive Response Recorded Date/ Time Living Will Yes October 21 11:11am Power of [place] Firer/Fireman Yes October 21, 2024 11:11am Name of Medical Power of [place] Firer/Fireman October 21, 2024 11:11am Advance Directive Response Recorded Date/ Time Living Will No December 04, 2024 7:55am Do you have a Healthcare Power of [place] Firer/Fireman? No December 04, 2024 7:55am Living Will Yes October 21 11:11am Do you have a Healthcare Power of [place] Firer/Fireman? Yes October 21, 2024 11:11am Name of Medical Power of [place] Firer/Fireman October 21, 2024 11:11am Advance Directive Response Recorded Date/ Time Living Will No December 04, 2024 3:59pm Do you have a Healthcare Power of [place] Firer/Fireman? No December 04, 2024 3:59pm Living Will Yes October 21 11:11am Do you have a Healthcare Power of [place] Firer/Fireman? Yes October 21, 2024 11:11am Name of Medical Power of [place] Firer/Fireman October 21, 2024 11:11am Advance Directive Response Recorded Date/ Time Living Will No December 04, 2024 3:59pm Do you have a Healthcare Power of [place] Firer/Fireman? No December 04, 2024 3:59pm Do you have a Healthcare Power of [place] Firer/Fireman? No January 28, 2025 11:32pm Living Will Yes October 21 11:11am Do you have a Healthcare Power of [place] Firer/Fireman? Yes October 21, 2024 11:11am Name of Medical Power of [place] Firer/Fireman October 21, 2024 11:11am Advance Directive Response Recorded Date/ Time Living Will No December 04, 2024 3:59pm Do you have a Healthcare Power of [place] Firer/Fireman? No December 04, 2024 3:59pm Do you have a Healthcare Power of [place] Firer/Fireman? unsu re January 29, 2025 3:31am Living Will Yes October 21 11:11am Do you have a Healthcare Power of [place] Firer/Fireman? Yes October 21, 2024 11:11am Name of Medical Power of [place] Firer/Fireman October 21, 2024 11:11am Chief Complaint and Reason for Visit Chief Complaint MURMUR Chief Complaint EORDER FOR LABS AND LUMBAR SPINE XRAY Chief Complaint EORDER FOR LABS AND LUMBAR SPINE XRAY POSTMENOPAUSAL, SCREENING LUMBAR DDD/RX HERE Chief Complaint Admit Date pain, bilateral shoulder pain/ LABS AND XRAY July 20, 2024 12:34pm [facility]. [facility]:30am UMBILICAL HERNIA September 27, [...] Admit Date BILATERAL SHOULDER PAIN. RX HERE [facility] 2023 11:30am UMBILICAL HERNIA September 27, 2024 [...] Admit Date B[facility] PAIN. [facility] 11:30am UMBILICAL HERNIA September 27, 2024 1 :58pm DDD ON XRAY, PERSISTANT PARESTHESIAS INT O L ARM October 04, 2024 8:59am Hernia,Open Incisional Repair w/ poss Me November 04, 2024 5:26am Hernia,Open Incisional Repair w/ poss Me sh November 04, 2024 7:17am HERNIA 3-13 November [...] Me sh November 04, 2024 7:17am HERNIA 3-13 November [...] section and content) DATE CREATED AUTHOR 02/16/2018 [facility] DATE CREATED AUTHOR AUTHOR'S ORGANIZ ATION 09/03/2021 [facility] DATE CREATED AUTHOR AUTHOR'S ORGANIZ ATION 02/20/2025 [facility] Goals (unrecognized section and content) Goals may [...] Dr. Sowmya Cabrera MD Primary Care Provider Chun arriola Team Status: Inactive Member Role Status Dates [...] Provider Active Start: December 04, 2024 Dr. Drarick Light MD Attending Provider Active Start: December [...] BE BASED ON THE PRIMARY CLINICAL RECORDS. [facility] [employer] provides no warranty or guarantee of the accuracy or completeness of information in this document.
[2025-02-20 20:15] VITALS: BP 128/72; PULSE 76; RESP 16; TEMP 36.6; O2SAT 97
[2025-02-20 20:18] VITALS: BMI 25.3
[2025-02-20] MEDS: 0.9% Saline Lock 10 ML Syringe IV (20:54)
[2025-02-20] MEDS: Dextrose 5%/0.9% NaCl 1,000 ML 100 ML IV (20:54)
[2025-02-21 06:06] LABS: Hematocrit 34.1 % (37-47); Hemoglobin 11.0 g/dL (12.0-15.0); Immature Granulocytes Count 0.010 X10^3/uL (0.0-0.0); Mean Corp Hgb Conc 32.3 g/dL (32-36); Mean Corpuscular Volume 90.7 fL (81-99); Mean Platelet Vol. 10.9 fl (6.2-12.0); NRBC Flagged by Analyzer 0 % (0-5); Platelet Count 169 K/mm3 (150-450); RBC Distribution Width CV 14.0 % (11.6-14.6); RBC Distribution Width SD 47.0 fl (35.1-43.9); Red Blood Count 3.76 M/mm3 (4.2-5.4); White Blood Count 3.1 K/mm3 (4.4-11.0)
[2025-02-21] MEDS: Dextrose 5%/0.9% NaCl 1,000 ML 100 ML IV ×2 (06:15→17:24)
[2025-02-21 06:47] LABS: Anion Gap 8 (5-15); BUN 6 mg/dL (4-19); BUN/Creat Ratio 10.2 RATIO (10-20); Calcium,Total 8.8 mg/dL (7.6-11.0); Carbon Dioxide 24.9 mmol/L (21.0-32.0); Chloride 111 mmol/L (98-108); Estimated Creatinine Clearance 49.27 ml/min (50-250); Glucose 123 mg/dL (70-99); Potassium 5.3 mmol/L (3.3-5.1)
[2025-02-21 09:18] VITALS: BP 110/59; PULSE 86; RESP 16; TEMP 36.9; O2SAT 97
--- NOTE | 2025-02-21 09:55 | RAD_ITS ---
PROCEDURE: SMALL BOWEL SERIES ONLY 02/21/2025 REASON FOR EXAM: ABDOMINAL PAIN, PREV HX SBO TECHNIQUE: SMALL BOWEL SERIES ONLY COMPARISON: None. FINDINGS: A brake liner image was obtained, followed by immediate, 1 hour, and 3 hour images Central left lower abdominal sutures are seen. Prominent degenerative changes and dextro rotoscoliosis of the lumbar spine are noted Limited imaging of the stomach and duodenum shows no abnormality. Although not clearly within the colon on the 1 hour film, extensive contrast is seen within the colon 3 hour images No small bowel dilation is seen throughout the images obtained. No mass or mass effect is noted RAD/Small Bowel Series Only IMPRESSION: No evidence of small-bowel obstruction or delay of passage of contrast into the colon Reading Location: [place] [address]
--- NOTE | 2025-02-21 10:20 | PCM.HP.STD ---
HPI - General General Date of Admission: 02/20/25 Date of Service: 02/21/25 Chief Complaint: Nausea and vomiting HPI Narrative RAMONA DONIS, is a 79 F who presented to the [facility] on 02/20/2025 with complaints of abdominal pain and nausea over the past couple of days. She has a past medical history of hypothyroidism, hernia repair, small bowel resection with anastomosis for perforated small bowel performed back in November [address] Light. She was just recently admitted about 3 weeks ago with a small bowel obstruction which resolved with NG tube decompression and conservative measures. She called our answering service stating that she was having abdominal pain and nausea however she was able to eat. She was concerned about the symptoms given her recent obstruction. She presented to the emergency department for further evaluation and treatment. She was seen evaluated by the ER staff. Laboratories were all relatively normal. CT scan did not show any obvious obstruction. There was concern about some twisting of the small bowel mesentery. She was brought in for observation. She states this morning that she is doing pretty well. She has been tolerating a clear liquid diet. She states that she is concerned about her symptoms and would like to find answers as far as why she is feeling the way she is feeling. She also notes that her bowel movements seem to be rather hard and thin. We discussed adding MiraLAX to her bowel regimen [facility] Medical History Umbilical hernia Wears glasses Wears partial dentures Wears dentures Depression Cervical stenosis of spine Arthritis Low iron High cholesterol Non-smoker Shortness of breath on exertion History of echocardiogram History of stress test Thyroid disease Heart murmur Home Medications ?Medication ?Instructions ?Recorded ?Last Taken ?Type atorvastatin 80 mg tablet 80 mg PO DAILY 09/27/24 12/03/24 History baclofen 10 mg tablet 10 mg PO DAILY 09/27/24 12/03/24 History calcium carbonate 500 mg PO DAILY 09/27/24 12/03/24 History hkixwsip-poeyyvlc-ayxal acid 240 1 tab PO DAILY 09/27/24 12/03/24 History mcg-vit K1 150 mcg-herb 357 tablet (Alive Women's 50 Plus Ultra Multivitamin) vitamins A,C,W-tfio-ikkpxy 4,296 1 cap PO BID 09/27/24 12/03/24 History mcg-226 mg-90 mg capsule (PreserVision AREDS) zolpidem 10 mg tablet 10 mg PO QHS 09/27/24 12/03/24 History ketoconazole 2 % shampoo 1 applic topical WESA 12/04/24 12/01/24 History alendronate 70 mg tablet 70 mg PO QWEEK 02/20/25 Unknown History levothyroxine 100 mcg tablet 100 mcg PO DAILY 02/20/25 Unknown History Allergy/AdvReac Type Severity Reaction Status Date / Time No Known Allergies Allergy Verified 02/20/25 16:09 Family History Sister Diabetes Surgical History S/P small bowel resection S/P umbilical hernia repair, follow-up exam History of hysterectomy Previous back surgery Social History Smoking Status: Never smoker alcohol intake: never substance use type: does not use ROS Constitutional Constitutional: Reports systems reviewed and no addt'l complaints, except as documented Eyes Eyes: Reports systems reviewed and no addt'l complaints, except as documented ENT HEENT: Reports systems reviewed and no addt'l complaints, except as documented Cardiovascular Cardiovascular: Reports systems reviewed and no addt'l complaints, except as documented Respiratory/Chest Respiratory/Chest: Reports systems reviewed and no addt'l complaints, except as documented Gastrointestinal Gastrointestinal: Reports systems reviewed and no addt'l complaints, except as documented Genitourinary Genitourinary: Reports systems reviewed and no addt'l complaints, except as documented Musculoskeletal Musculoskeletal: Reports systems reviewed and no addt'l complaints, except as documented Vital Signs Vital Signs Vital Signs: 02/20/25 16:08 02/20/25 17:19 02/20/25 19:00 Temperature 99 F 99.1 F Temperature Source Oral Oral Pulse Rate 101 H Respiratory Rate 12 Blood Pressure 129/67 H 132/75 H Blood Pressure Mean 87 92 Blood Pressure Source Blood Pressure Position Blood Pressure Location Pulse Ox 99 97 Oxygen Delivery Method Room Air 02/20/25 19:05 02/20/25 20:15 02/21/25 09:18 Temperature 98 F 97.8 F 98.5 F Temperature Source Oral Oral Pulse Rate 78 76 86 Respiratory Rate 18 16 16 Blood Pressure 132/75 H 128/72 H 110/59 L Blood Pressure Mean 94 90 76 Blood Pressure Source Monitor Monitor Blood Pressure Position Semi-Fowlers Semi-Fowlers Blood Pressure Location Right Arm Right Arm Pulse Ox 97 97 97 Oxygen Delivery Method Room Air Room Air Weight Weight: 134 lb 0.657 oz Body Mass Index (BMI) 25.3 Results Lab / Micro Data 02/21/25 05:01 02/21/25 05:01 Labs: Laboratory Results - last 24 hr 02/20/25 16:27: WBC 4.0 L, RBC 4.30, Hgb 12.6, Hct 37.8, MCV 87.9, MCH 29.3, MCHC 33.3, RDW Std Deviation 45.1 H, RDW Coeff of Zia 14.0, Plt Count 179, MPV 10.8, Immature Gran % (Auto) 0.200, Neut % (Auto) 61.4, Lymph % (Auto) 26.3, [place] % (Auto) 11.2 H, Eos % (Auto) 0.2, Baso % (Auto) 0.7, Absolute Neuts (auto) 2.5, Absolute Lymphs (auto) 1.06, Nucleated RBC % 0, Sodium 138, Potassium 4.1, Chloride 103, Carbon Dioxide 23.3, Anion Gap 11, BUN 11, Creatinine 0.75, Estim Creat Clear Calc 48.95 L, Est GFR (MDRD) Non-Af 82, BUN/Creatinine Ratio 14.9, Glucose 92, Lactic Acid < 1.0, Calcium 9.1 02/21/25 05:01: WBC 3.1 L, RBC 3.76 L, Hgb 11.0 L, Hct 34.1 L, MCV 90.7, MCH 29.3, MCHC 32.3, RDW Std Deviation 47.0 H, RDW Coeff of Zia 14.0, Plt Count 169, MPV 10.9, Immature Gran % (Auto) 0.300, Neut % (Auto) 57.3, Lymph % (Auto) 29.1, [place] % (Auto) 12.0 H, Eos % (Auto) 1.0, Baso % (Auto) 0.3, Absolute Neuts (auto) 1.8 L, Absolute Lymphs (auto) 0.90, Nucleated RBC % 0, Sodium 144, Potassium 5.3 H, Chloride 111 H, Carbon Dioxide 24.9, Anion Gap 8, BUN 6, Creatinine 0.63 L, Estim Creat Clear Calc 49.27 L, Est GFR (MDRD) Non-Af 91, BUN/Creatinine Ratio 10.2, Glucose 123 H, Calcium 8.8 Imaging Radiology Impression Abdomen/Pelvis CT 02/20/25 16:20 IMPRESSION: 1) small bowel resection within the left hemiabdomen. Scattered fluid and inflammation about the small bowel may reflect enteritis. No bowel obstruction. 2) Swirling of the mesentery within the mid abdomen may reflect internal herniation. 3) Extensive colonic diverticulosis without acute diverticulitis. 4) nonspecific slight thickening of the gallbladder wall which may be due to nondistention. Consider right upper quadrant ultrasound if there is concern for cholecystitis. 5) lingular consolidation may reflect subsegmental atelectasis, early stages of pneumonia, and/or aspiration. Reading Location: [id number] Assessment & Plan Assessment/Plan (1) Abdominal pain: PLAN: Plan The patient is a 79-year-old female who presents with abdominal pain and nausea. She was recently hospitalized for small bowel obstruction which resolved recently with conservative measures. She did have a small bowel perforation back in November which was treated with resection and reanastomosis. Patient seems to be doing well clinically and has been tolerating clear liquid diet since admission. She does admit that she wants to know why she is feeling the way she is feeling as she feels that something is not quite right. I have offered her a small bowel follow-through for diagnostic and therapeutic reasons. We will await these results. She is agreeable to this plan. Charges/Coding Visit Charges Inpatient E&M: 09677 Init Hosp L3
--- NOTE | 2025-02-21 14:33 | CASEMGMT ---
Met with patient to complete PETERSON form. PETERSON form and its content were verbally explained and patient's questions were answered to the best of my ability.? Patient voiced understanding and signed PETERSON form.? Patient provided a copy of signed PETERSON form and original placed in patient's chart.? Patient had no further questions. Katia Frausto, Discharge Planning Asst
[2025-02-21 15:58] VITALS: BP 114/70; PULSE 93; RESP 16; TEMP 37; O2SAT 95
[2025-02-21 22:00] VITALS: BP 123/69; PULSE 91; RESP 16; TEMP 37.2; O2SAT 100
[2025-02-22] MEDS: Dextrose 5%/0.9% NaCl 1,000 ML 100 ML IV (02:45)
[2025-02-22 03:48] VITALS: BP 101/57; PULSE 80; RESP 16; TEMP 36.9; O2SAT 96
[2025-02-22 07:17] LABS: Hematocrit 38.2 % (37-47); Hemoglobin 12.2 g/dL (12.0-15.0); Immature Granulocytes Count 0.020 X10^3/uL (0.0-0.0); Mean Corp Hgb Conc 31.9 g/dL (32-36); Mean Corpuscular Volume 91.0 fL (81-99); Mean Platelet Vol. 10.7 fl (6.2-12.0); NRBC Flagged by Analyzer 0 % (0-5); Platelet Count 187 K/mm3 (150-450); RBC Distribution Width CV 14.0 % (11.6-14.6); RBC Distribution Width SD 46.6 fl (35.1-43.9); Red Blood Count 4.20 M/mm3 (4.2-5.4); White Blood Count 3.5 K/mm3 (4.4-11.0)
--- NOTE | 2025-02-22 07:18 | PN.SURG_ITS ---
Subjective Subjective Patient evaluated resting comfortably in bed. She notes feeling much improved. She denies any abdominal pain, nausea, vomiting. She tolerated clear liquids well. She notes feeling hungry. She notes having loose stools. Objective Data Objective Data Vital Signs: Vital Signs Temp Pulse Resp BP Pulse Ox O2 Del Method 98.4 F 80 16 101/57 L 96 Room Air 02/22/25 03:48 02/22/25 03:48 02/22/25 03:48 02/22/25 03:48 02/22/25 03:48 02/22/25 03:48 Oxygen Delivery Method Room Air Weight: 134 lb 0.657 oz Body Mass Index (BMI) 25.3 Intake & Output: Intake and Output for Last 24 Hours 02/20/25 02/21/25 02/22/25 23:59 23:59 23:59 Intake Total 1000 / 1000 1935 / 1935 935 / 935 Balance 1000 / 1000 1935 / 1935 935 / 935 Lab / Micro Data 02/22/25 06:46 02/21/25 05:01 Labs: Laboratory Results - last 24 hr 02/22/25 06:46: WBC 3.5 L, RBC 4.20, Hgb 12.2, Hct 38.2, MCV 91.0, MCH 29.0, M CHC 31.9 L, RDW Std Deviation 46.6 H, RDW Coeff of Zia 14.0, Plt Count 187, MPV 10.7, Immature Gran % (Auto) 0.600, Neut % (Auto) 62.5, Lymph % (Auto) 26.6, [place] % (Auto) 9.4, Eos % (Auto) 0.6, Baso % (Auto) 0.3, Absolute Neuts (auto) 2.2, Absolute Lymphs (auto) 0.93, Nucleated RBC % 0 Radiography Diagnostic Testing: Radiology Impression Small Bowel X-Ray 02/21/25 09:55 IMPRESSION: No evidence of small-bowel obstruction or delay of passage of contrast into the colon Reading Location: [place] [address] Physical Exam GI GI Narrative: Abdomen- soft, nondistended, slight tenderness at the umbilicus, inferior to the incision, otherwise nontender. Positive bowel sounds. Assessment & Plan Assessment/Plan (1) Abdominal pain: PLAN: I am following this patient in conjunction with Dr. Medina. He will independently evaluate this patient. Labs reviewed. Chemistry pending SBFT demonstrated contrast within the colon in 3 hours. No mass or obstruction was noted. Discussed adding Miralax every other day to patient regimen to assist with finding new normal for bowel habits Increase diet to regular this morning, if she tolerates, patient may be discharged to home We will contiune to monitor this patient while inpatient Charges/Coding Visit Charges Inpatient E&M: 78280 Subs Hosp L2
[2025-02-22 07:34] VITALS: BP 103/62; PULSE 82; RESP 16; TEMP 36.8; O2SAT 96
[2025-02-22 08:13] LABS: Anion Gap 10 (5-15); BUN 3 mg/dL (4-19); BUN/Creat Ratio 4.5 RATIO (10-20); Calcium,Total 8.6 mg/dL (7.6-11.0); Carbon Dioxide 24.0 mmol/L (21.0-32.0); Chloride 109 mmol/L (98-108); Estimated Creatinine Clearance 49.27 ml/min (50-250); Glucose 119 mg/dL (70-99); Potassium 3.6 mmol/L (3.3-5.1)
--- NOTE | 2025-02-22 08:47 | DS.PCM_ITS ---
Providers Date of Admission: 02/20/25 Primary Care Physician: Dr. Austin Cabrera MD Reason For Visit: NAUSEA/ VOMITING Diagnosis Discharge Diagnosis (1) Abdominal pain: Status: Acute Code(s): R10.9 - Unspecified abdominal pain Plan: I am following this patient in conjunction with Dr. Medina. He will independently evaluate this patient. Labs reviewed. Chemistry pending SBFT demonstrated contrast within the colon in 3 hours. No mass or obstruction was noted. Discussed adding Miralax every other day to patient regimen to assist with finding new normal for bowel habits Increase diet to regular this morning, if she tolerates, patient may be discharged to home We will contiune to monitor this patient while inpatient Medications at Discharge Home Medications atorvastatin 80 mg tablet 80 mg PO DAILY 09/27/24 baclofen 10 mg tablet 10 mg PO DAILY 09/27/24 calcium carbonate 500 mg PO DAILY 09/27/24 khtmoonu-tfbhrqiq-pdeet acid 240 mcg-vit K1 150 mcg-herb 357 tablet (Alive Women's 50 Plus Ultra Multivitamin) 1 tab PO DAILY 09/27/24 vitamins A,C,W-qzey-dzhgwx 4,296 mcg-226 mg-90 mg capsule (PreserVision AREDS) 1 cap PO BID 09/27/24 zolpidem 10 mg tablet 10 mg PO QHS 09/27/24 ketoconazole 2 % shampoo 1 applic topical WESA 12/04/24 alendronate 70 mg tablet 70 mg PO QWEEK 02/20/25 levothyroxine 100 mcg tablet 100 mcg PO DAILY 02/20/25 Hospital Course Summary of Care Provided Minutes Spent on Discharge: 25 Hospital Course: Patient is a 79 y/o F who presented with a 4 day history of generalized abdominal pain with associated nausea and vomiting. CT scan was obtained in the ED which demonstrated swirling of the mesentery within the mid abdomen which may reflect an internal hernia, small bowel resection, scattered fluid and inflammation throughout the small bowel which may represent enteritis, diverticulosis. A small bowel follow-through was obtained on 02/21 and demonstrated no obstructive process or mass noted. Patient was started on clear liquids and tolerated well. Upon discharge, patient tolerated a regular diet. She notes feeling much improved. She denies any further nausea, vomiting or abdominal pain. She voices readiness to be discharged. Weight / BMI Weight Weight: 134 lb 0.657 oz Body Mass Index (BMI) 25.3 ABG / Lab / Microbiology Data 02/22/25 06:46 02/22/25 06:46 Laboratory: Laboratory Results - last 24 hr 02/22/25 06:46: WBC 3.5 L, RBC 4.20, Hgb 12.2, Hct 38.2, MCV 91.0, MCH 29.0, M CHC 31.9 L, RDW Std Deviation 46.6 H, RDW Coeff of Zia 14.0, Plt Count 187, MPV 10.7, Immature Gran % (Auto) 0.600, Neut % (Auto) 62.5, Lymph % (Auto) 26.6, [place] % (Auto) 9.4, Eos % (Auto) 0.6, Baso % (Auto) 0.3, Absolute Neuts (auto) 2.2, Absolute Lymphs (auto) 0.93, Nucleated RBC % 0, Sodium 143, Potassium 3.6, Chloride 109 H, Carbon Dioxide 24.0, Anion Gap 10, BUN 3 L, Creatinine 0.58 L, E stim Creat Clear Calc 49.27 L, Est GFR (MDRD) Non-Af 93, BUN/Creatinine Ratio 4.5 L, Glucose 119 H, Calcium 8.6 Radiography Diagnostic Testing: Radiology Impression Small Bowel X-Ray 02/21/25 09:55 IMPRESSION: No evidence of small-bowel obstruction or delay of passage of contrast into the colon Reading Location: [place] [address] D/C Instructions Discharge Diet: Light diet - advance as tolerated (Increase fluid intake) Discharge Activity: Return to Normal Activity and No Restrictions DC O2, CPAP, BIPAP Needs Home O2 Discharge instructions: No DC home with Oxygen: No Meaningful Use Info Meaningful Use Meaningful Use Diagnoses (Choose all that apply): None applicable Ischemic Stroke Statin Dosing Therapy Reference: STATIN DOSE THERAPY REFERENCE: * Patients > 75 years receive moderate or high dose statin therapy. * Patients 75 years or YOUNGER should receive HIGH intensity statin dose unless contraindicated. You will be required to document reason for non-treatment if statin daily dose does not meet guidelines. HIGH DOSE STATIN THERAPY DAILY Atorvastatin > than or = to 40 mg Rosuvastatin > than or = to 20 mg Amlodipine + Atorvastatin > than or = to 2.5/40 mg Ezetimibe + Simvastatin 10/80 mg Simvastatin 80mg Discharge Plan Admission Admit Date/Time: 02/20/25 18:55 Attending Provider: Misha Medina Primary Care Provider: Austin Cabrera Discharge Orders/Prescriptions Prescriptions: Continued atorvastatin 80 mg tablet 80 mg PO DAILY zolpidem 10 mg tablet 10 mg PO QHS baclofen 10 mg tablet 10 mg PO DAILY Patient Comments: PT TAKES MORE THAN ONCE A DAY. PreserVision AREDS 4,296 mcg-226 mg-90 mg capsule 1 cap PO BID calcium carbonate 500 mg calcium (1,250 mg) tablet 500 mg PO DAILY Alive Women's 50 Plus Ultra MV 240-150 mcg tablet 1 tab PO DAILY ketoconazole 2 % shampoo 1 applic topical WESA alendronate 70 mg tablet 70 mg PO QWEEK levothyroxine 100 mcg tablet 100 mcg PO DAILY Referrals / Follow Up: Austin Cabrera MD [Primary Care Provider] - Disposition Disposition (needs filled in before D/C Order can be placed): Home, Self Care Charges/Coding Visit Charges Inpatient E&M: 42721 Disch Hosp
--- NOTE | 2025-02-22 09:22 | PHA.DC.MR.R ---
Pharmacy [place] Med Reconciliation Pharmacy Service has performed discharge medication reconciliation for this patient. The patient's discharge medication list was reviewed for discrepancies and discrepancies were resolved. Medications at Discharge Home Medications atorvastatin 80 mg tablet 80 mg PO DAILY 09/27/24 baclofen 10 mg tablet 10 mg PO DAILY 09/27/24 calcium carbonate 500 mg PO DAILY 09/27/24 zrcsqaoi-plyfjioj-wbnxh acid 240 mcg-vit K1 150 mcg-herb 357 tablet (Alive Women's 50 Plus Ultra Multivitamin) 1 tab PO DAILY 09/27/24 vitamins A,C,G-rvbd-ydwvcu 4,296 mcg-226 mg-90 mg capsule (PreserVision AREDS) 1 cap PO BID 09/27/24 zolpidem 10 mg tablet 10 mg PO QHS 09/27/24 ketoconazole 2 % shampoo 1 applic topical WESA 12/04/24 alendronate 70 mg tablet 70 mg PO QWEEK 02/20/25 levothyroxine 100 mcg tablet 100 mcg PO DAILY 02/20/25
== END 2025-02-22 10:17 | disposition home or self-care (01) ==
LOC: ED 18:59 → MS3 19:06
PROVIDERS: Physician Assistant; Admitting Provider Surgery; Emergency Provider Emergency Medicine; PCP Family Medicine; Visit Provider Surgery
DX: R10.84 Generalized abdominal pain (principal); E78.00 Pure hypercholesterolemia, unspecified; K57.30 Diverticulosis of large intestine without perforation or abscess without bleeding; R11.2 Nausea with vomiting, unspecified; E03.9 Hypothyroidism, unspecified; Z79.899 Other long term (current) drug therapy; Z79.890 Hormone replacement therapy
CPT/HCPCS: 36415; 74177; 74250; 80048; 83605; 85025; 96360; 96361; 99221; 99283; Q9967; A4216; G0378

== ENCOUNTER → 2025-04-26 | Outpatient (CLI) | payer MEDICARE, OTHER, SELFPAY ==
--- NOTE | 2025-04-26 09:59 | BI_ITS ---
EXAM: SCRN MAMM (CAD)W/CYNTHIA BILAT DATE: 04/26/2025 CLINICAL HISTORY: F, Age 79 y/o , POST MENOPAUSAL No family history. TECHNIQUE: Procedure Code: [id number] Modality: MG Procedure: SCRN MAMM (CAD)W/CYNTHIA BILAT COMPARISON: Prior exam(s) dated February 17, 2024.. FINDINGS: TISSUE DENSITY: There are scattered areas of fibroglandular density. Bilateral Breast Mammographic Findings: No significant masses, calcifications or other abnormalities are identified. Stable small benign-appearing bilateral axillary lymph nodes. Stable vascular calcifications in the medial retroareolar region of the right breast. No suspicious masses, areas of developing architectural distortion, or suspicious calcifications. There has been no significant interval change. BI/SCRN MAMM (CAD)W/CYNTHIA BILAT IMPRESSION: Stable screening bilateral mammograms. OVERALL FINAL ASSESSMENT BI-RADS 2: BENIGN RECOMMENDATION: Routine annual follow-up in 1 Year A letter with findings and recommendations will be mailed to the patient. Reading Location: [facility]
--- NOTE | 2025-04-26 10:02 | BD_ITS ---
PROCEDURE: DEXA BONE DENSITY STUDY 04/26/2025 REASON FOR EXAM: F, age 79 y/o . Postmenopausal. TECHNIQUE: Procedure Code: BDDBD Modality: DX Procedure: DEXA BONE DENSITY STUDY COMPARISON: Prior study dated January 02, 2023. FINDINGS: BMD and T-SCORES Lumbar spine: 0.852 g/cm2, T-score -1.2 Levels: L1 through L4 Change from prior: Loss of 3.2%. Left femoral neck: 0.596 g/cm2, T-score -2.3 Femoral neck comparison data not recommended for monitoring change. Left total hip: 0.740 g/cm2, T-score -1.7 Change from prior: Loss of 1.4%. Right femoral neck: 0.570 g/cm2, T-score -2.5 Femoral neck comparison data not recommended for monitoring change. Right total hip: 0.663 g/cm2, T-score -2.3 Change from prior: Loss of 3.8%. The World Health Organization has defined the following categories based on bone density: Normal bone density: T-score equal to or greater than -1.0 Osteopenia: T-score between -1.0 and -2.5 Osteoporosis: T-score equal to or less than -2.5 FRAX (or Comparable) Fracture Risk Assessment: 10 Year Probability of Fracture: Major Osteoporotic Fracture: 18% Hip Fracture: 5.9% (Note: FRAX is not to be reported in setting of normal range bone density, osteoporosis on DEXA, known history of osteoporosis, prior osteoporotic hip or vertebral fracture, or for any patient undergoing pharmacological treatment for bone loss.) The National Osteoporosis Foundation (NOF) recommends pharmacological treatment for patients with a FRAX 10-year risk of 3% or higher for a hip fracture, or 20% or higher for a major osteoporotic fracture, to prevent osteoporosis and reduce fracture risk. The patient does meet the pharmacological treatment recommendations for prevention of osteoporosis. BD/Dexa Bone Density Study IMPRESSION: OSTEOPOROSIS. Recommend follow-up as clinically warranted. Reading Location: [place] [address]
== END | disposition home or self-care (01) ==
PROVIDERS: PCP Family Medicine
DX: Z12.31 Encounter for screening mammogram for malignant neoplasm of breast (principal); Z13.820 Encounter for screening for osteoporosis; Z78.0 Asymptomatic menopausal state
CPT/HCPCS: 77063; 77067; 77080

== ENCOUNTER 2025-06-28 10:31 | Outpatient (CLI) | payer MEDICARE, OTHER, SELFPAY ==
[2025-06-28 13:12] LABS: AST(SGOT) 30 U/L (<=31); Alanine Aminotransfer ALT/SGPT 22 U/L (<=34); Albumin, Serum 3.9 g/dL (3.4-4.8); Alkaline Phosphatase 93 U/L (35-104); Anion Gap 8 (5-15); BUN 12 mg/dL (4-19); BUN/Creat Ratio 19.6 RATIO (10-20); Calcium,Total 9.4 mg/dL (7.6-11.0); Carbon Dioxide 26.7 mmol/L (21.0-32.0); Chloride 107 mmol/L (98-108); Globulin 2.8 g/dL (2.2-4.2); Glucose 105 mg/dL (70-99); Potassium 4.8 mmol/L (3.3-5.1); Vitamin D,25 Hydroxy 77.5 ng/mL (30-100)
== END 2025-06-28 23:59 | disposition home or self-care (01) ==
LOC: MFPLAB 10:31
PROVIDERS: PCP Family Medicine; Visit Provider Family Medicine
DX: E78.5 Hyperlipidemia, unspecified (principal); E03.9 Hypothyroidism, unspecified
CPT/HCPCS: 36415; 80053; 82306; 84443